=== PATIENT | female | born 1950 | race Caucasian/White ===

== ENCOUNTER 2019-11-28 10:48 | Outpatient (RCR) | payer MEDICARE, SELFPAY ==
[2019-09-17 11:30] LABS: INR 1.7; Prothrombin Time 19.4 Seconds (11.1-14.7)
[2019-09-30 12:12] LABS: INR 2.7; Prothrombin Time 27.9 Seconds (11.1-14.7)
[2019-10-31 08:11] LABS: INR 3.9; Prothrombin Time 37.6 Seconds (11.1-14.7)
[2019-11-14 09:46] LABS: INR 3.6
[2019-11-28 11:10] LABS: INR 2.3; Prothrombin Time 25.1 Seconds (11.1-14.7)
== END 2019-12-16 23:59 | disposition home or self-care (01) ==
LOC: ANHLAB 10:48
PROVIDERS: PCP Internal Medicine; Visit Provider Internal Medicine
DX: I82.211 Chronic embolism and thrombosis of superior vena cava (principal)
CPT/HCPCS: 36415; 85610

== ENCOUNTER 2020-03-19 09:18 | Outpatient (RCR) | payer MEDICARE, SELFPAY ==
[2019-12-29 13:06] LABS: INR 1.6; Prothrombin Time 18.4 Seconds (11.1-14.7)
[2020-01-23 11:11] LABS: INR 1.8; Prothrombin Time 20.2 Seconds (11.1-14.7)
[2020-02-25 10:30] LABS: INR 1.9; Prothrombin Time 21.3 Seconds (11.1-14.7)
[2020-03-19 09:50] LABS: INR 2.7; Prothrombin Time 27.9 Seconds (11.1-14.7)
== END 2020-03-28 23:59 | disposition home or self-care (01) ==
LOC: ANHLAB 09:18
PROVIDERS: PCP Internal Medicine; Visit Provider Internal Medicine
DX: I82.211 Chronic embolism and thrombosis of superior vena cava (principal)
CPT/HCPCS: 36415; 85610

== ENCOUNTER 2020-06-14 15:19 | Outpatient (CLI) | payer MEDICARE, SELFPAY ==
--- NOTE | ~2020-06-14 | XR_ITS ---
XR chest 2V DATE: 06/14/2020 15:39 INDICATION: Wheezing, shortness of breath TECHNIQUE: PA and lateral views COMPARISON: 03/30/2019 CT pulmonary scan FINDINGS: Status post right mastectomy and axillary node dissection. No pulmonary infiltrate or consolidation, pleural effusion or pulmonary vascular congestion or pneumo thorax. Normal heart size. No hilar or mediastinal enlargement. Diffuse osteopenia. Scoliosis of the thoracic and lumbar spine. IMPRESSION: Status post right mastectomy and axillary node dissection for presumed right breast cance r No active cardiopulmonary disease Diffuse osteopenia Reviewed, dictated and finalized at location B. IMPRESSION: Status post right mastectomy and axillary node dissection for presu med right breast cancer No active cardiopulmonary disease Diffuse osteopenia
== END 2020-06-14 15:20 | disposition home or self-care (01) ==
LOC: ANHIMG 15:26
PROVIDERS: PCP Internal Medicine; Visit Provider Internal Medicine
DX: J18.9 Pneumonia, unspecified organism (principal); M85.88 Other specified disorders of bone density and structure, other site
CPT/HCPCS: 71046

== ENCOUNTER 2020-06-24 09:02 | Outpatient (RCR) | payer MEDICARE, SELFPAY ==
[2020-04-15 13:35] LABS: INR 2.7; Prothrombin Time 28.2 Seconds (11.1-14.7)
[2020-05-19 11:26] LABS: INR 3.6; Prothrombin Time 35.5 Seconds (11.1-14.7)
[2020-06-24 09:42] LABS: INR 2.8; Prothrombin Time 29.1 Seconds (11.1-14.7)
== END 2020-07-14 23:59 | disposition home or self-care (01) ==
LOC: ANHLAB 09:02
PROVIDERS: PCP Internal Medicine; Visit Provider Internal Medicine
DX: I82.409 Acute embolism and thrombosis of unspecified deep veins of unspecified lower extremity (principal)
CPT/HCPCS: 36415; 85610

== ENCOUNTER 2020-06-28 09:19 | Outpatient (CLI) | payer MEDICARE, SELFPAY ==
--- NOTE | ~2020-06-28 | MM_ITS ---
EXAMINATION: MM screening mable LT w abraham HISTORY: Screening mammogram TECHNIQUE: Craniocaudal and mediolateral oblique 3-D tomosynthesis images were obtained and synthetic 2-D images were generated. CAD analysis was submitted and interpreted. COMPARISON: 06/26/2019, 06/17/2018 left digital screening mammogram examinations 06/30/2017 diagnostic left digital mammogram 06/03/2017 bilateral digital screening mammogram and complete left breast ultrasound BREAST PARENCHYMAL COMPOSITION: The breasts are heterogeneously dense, which may obscure small masses . FINDINGS: There is no evidence of suspicious mass, calcification, or architectural distortion to sugg est malignancy in either breast. There has been no suspicious interval change. IMPRESSION: 1. No mammographic evidence of malignancy. 2. Recommend routine screening mammography in one year. BI-RADS Category 1: Negative Reviewed, dictated and finalized at location A.
== END 2020-06-28 09:20 | disposition home or self-care (01) ==
LOC: ANHIMG 09:20
PROVIDERS: PCP Internal Medicine; Visit Provider Internal Medicine Hematology & Oncology
DX: Z12.31 Encounter for screening mammogram for malignant neoplasm of breast (principal)
CPT/HCPCS: 77063; 77067

== ENCOUNTER 2020-09-23 07:35 | Outpatient (NON) | payer MEDICARE, SELFPAY ==
[2020-09-24 13:19] LABS: SARS-CoV-2 RNA PCR Positive
== END 2020-09-23 07:36 ==
LOC: ANHCOVIDDT 07:37
PROVIDERS: PCP Internal Medicine; Visit Provider Internal Medicine
DX: U07.1 COVID-19 (principal)
CPT/HCPCS: 87635; C9803; U0003

== ENCOUNTER 2020-10-26 17:17 | Outpatient (CLI) | payer MEDICARE, SELFPAY ==
--- NOTE | ~2020-10-26 | CT_ITS ---
EXAMINATION: CTA chest PE protocol EXAM DATE: 10/26/2020 18:51 INDICATION: Cough, acute bronchitis. History DVT and right-sided breast cancer. Congestion. Symptoms 3 weeks. TECHNIQUE: Spiral CTA of the chest (pulmonary arteries) was performed with 100 cc Omnipaque 350 intr avenous contrast injection. Images were acquired during the pulmonary arterial phase. Coronal maxi mum intensity projection 3D-reconstructions were created by the technologist on dedicated workstation . Axial, coronal and sagittal reformatted images were reviewed. The dose-length product (DLP) for t his examination was 460.11 mGy-cm. The exposure was tailored according to patient size (auto mA exp osure control), and iterative reconstruction (ASIR) was used as additional dose reduction technique. 03/30/2019 FINDINGS: Pulmonary arteries are well opacified and without intraluminal filling defects. No thora cic aortic dissection. Again scattered basilar tree-in-bud pattern, could be the same process seen i june with mild progression, with most likely be a chronic infectious or inflammatory process. The re is bibasilar linear atelectasis. Also, new peripheral left upper lobe small groundglass attenuatio n, probably nonspecific pneumonitis. Potentially could be early COVID pneumonia. There are no pleural or pericardial effusions. Tracheobronchial tree is patent. There is no media stinal, hilar or axillary lymphadenopathy. There is no pneumothorax. Heart normal in size. Ther e is mild coronary arterial calcification, arterial sclerosis. Upper abdomen is unremarkable. Stat us post right-sided mastectomy. Subacute right 4th rib fracture anteriorly. There are no osteoblastic or osteolytic lesions identified. IMPRESSION: 1. No pulmonary emboli. 2. New left upper lobe small groundglass opacity, possible COVID-19. 3. Progression in basilar tree-in-bud opacities appearance most consistent with chronic infectious o r inflammatory process. Reviewed, dictated and finalized at location A. [place] [employer] IMPRESSION: 1. No pulmonary emboli. 2. New left upper lobe small groundglass opacity, possible COVID-19. 3. Progression in basilar tree-in-bud opacities appearance most consistent wit h chronic infectious or inflammatory process.
[2020-10-26 20:01] LABS: Estimated Glomerular Filt Rate > 60
== END 2020-10-26 17:18 | disposition home or self-care (01) ==
PROVIDERS: PCP Internal Medicine; Visit Provider Internal Medicine
DX: J44.0 Chronic obstructive pulmonary disease with (acute) lower respiratory infection (principal); J20.9 Acute bronchitis, unspecified; Z85.3 Personal history of malignant neoplasm of breast; R91.8 Other nonspecific abnormal finding of lung field
CPT/HCPCS: 71275; Q9967

== ENCOUNTER 2020-10-28 08:47 | Outpatient (RCR) | payer MEDICARE, SELFPAY ==
[2020-08-10 10:28] LABS: INR 3.1; Prothrombin Time 31.6 Seconds (11.1-14.7)
[2020-09-09 11:04] LABS: Prothrombin Time 30.6 Seconds (11.1-14.7)
[2020-10-28 09:18] LABS: INR 2.2; Prothrombin Time 25.2 Seconds (11.1-14.7)
== END 2020-11-08 23:59 | disposition home or self-care (01) ==
LOC: ANHLAB 08:47
PROVIDERS: PCP Internal Medicine; Visit Provider Internal Medicine
DX: I82.409 Acute embolism and thrombosis of unspecified deep veins of unspecified lower extremity (principal)
CPT/HCPCS: 36415; 85610

== ENCOUNTER 2021-01-14 08:03 | Outpatient (RCR) | payer MEDICARE, SELFPAY ==
[2020-11-24 09:19] LABS: INR 2.7; Prothrombin Time 29.1 Seconds (11.1-14.7)
[2021-01-14 09:20] LABS: INR 2.1; Prothrombin Time 24.3 Seconds (11.1-14.7)
== END 2021-02-22 23:59 | disposition home or self-care (01) ==
LOC: ANHLAB 08:03
PROVIDERS: PCP Internal Medicine; Visit Provider Internal Medicine
DX: I82.211 Chronic embolism and thrombosis of superior vena cava (principal)
CPT/HCPCS: 36415; 85610

== ENCOUNTER 2021-02-23 12:04 | Outpatient (RCR) | payer MEDICARE, SELFPAY ==
[2021-02-23 12:57] LABS: INR 2.2; Prothrombin Time 25.2 Seconds (11.1-14.7)
== END 2021-03-29 13:58 | disposition home or self-care (01) ==
LOC: ANHLAB 12:04
PROVIDERS: PCP Internal Medicine; Visit Provider Internal Medicine
DX: I82.409 Acute embolism and thrombosis of unspecified deep veins of unspecified lower extremity (principal)
CPT/HCPCS: 36415; 85610

== ENCOUNTER 2021-03-24 08:44 | Outpatient (CLI) | payer MEDICARE, SELFPAY ==
[2021-03-24 09:26] LABS: Cholesterol 182 mg/dL (0-200); HDL Direct 52 mg/dL; Triglycerides 105 mg/dL (<150)
[2021-03-24 09:33] LABS: INR 2.5; Prothrombin Time 27.7 Seconds (11.1-14.7)
[2021-03-24 09:37] LABS: LDL Cholesterol Direct 101 mg/dL
[2021-03-24 09:59] LABS: Thyroid Stimulating Hormone 0.974 uIU/mL (0.465-4.680)
[2021-03-24 10:36] LABS: Free T4 Free Thyroxine 1.41 ng/mL (0.78-2.19)
[2021-03-24 10:45] LABS: Folic Acid > 20.0 ng/mL (2.76->20); Vitamin B12 > 1000.0 pg/mL (239-931)
== END 2021-03-24 08:45 | disposition home or self-care (01) ==
PROVIDERS: PCP Physician Assistant; Visit Provider Physician Assistant
DX: E03.9 Hypothyroidism, unspecified (principal); E88.81 Metabolic syndrome and other insulin resistance; I82.409 Acute embolism and thrombosis of unspecified deep veins of unspecified lower extremity; R53.83 Other fatigue
CPT/HCPCS: 36415; 80061; 82607; 82746; 84439; 84443; 85610

== ENCOUNTER 2021-06-26 11:25 | Outpatient (RCR) | payer MEDICARE, SELFPAY ==
[2021-05-05 09:23] LABS: INR 1.8; Prothrombin Time 21.6 Seconds (11.1-14.7)
[2021-05-16 12:18] LABS: INR 2.1
[2021-05-30 12:19] LABS: INR 2.3; Prothrombin Time 24.3 Seconds (11.1-14.7)
[2021-06-26 12:27] LABS: INR 2.2; Prothrombin Time 23.9 Seconds (11.1-14.7)
== END 2021-08-03 23:59 | disposition home or self-care (01) ==
LOC: ANHLAB 11:25
PROVIDERS: PCP Physician Assistant; Visit Provider Physician Assistant
DX: I82.409 Acute embolism and thrombosis of unspecified deep veins of unspecified lower extremity (principal)
CPT/HCPCS: 36415; 85610

== ENCOUNTER 2021-06-29 09:43 | Outpatient (CLI) | payer MEDICARE, SELFPAY ==
--- NOTE | ~2021-06-29 | MM_ITS ---
EXAMINATION: MM screening mable LT w abraham HISTORY: Screening left mammogram, history of right mastectomy TECHNIQUE: Craniocaudal and mediolateral oblique 3-D tomosynthesis images were obtained and synthetic 2-D images were generated. CAD analysis was submitted and interpreted. COMPARISON: 06/28/2020, 06/26/2019, 06/17/2018 BREAST PARENCHYMAL COMPOSITION: The breasts are heterogeneously dense, which may obscure small masses . FINDINGS: A stable low-density mass is present in the anterior third of the lower-outer breast, consi dered benign given the lack of interval change. There is no evidence of suspicious mass, calcificatio n, or architectural distortion to suggest malignancy in either breast. There has been no suspicious i nterval change. IMPRESSION: 1. No mammographic evidence of malignancy. 2. Recommend routine screening mammography in one year. BI-RADS Category 2: Benign finding(s). Reviewed, dictated and finalized at location A.
== END 2021-06-29 09:44 | disposition home or self-care (01) ==
PROVIDERS: PCP Physician Assistant; Visit Provider Internal Medicine Hematology & Oncology
DX: Z12.31 Encounter for screening mammogram for malignant neoplasm of breast (principal)
CPT/HCPCS: 77063; 77067

== ENCOUNTER 2021-07-13 12:26 | Outpatient (CLI) | payer MEDICARE, SELFPAY ==
--- NOTE | ~2021-07-13 | DEXA_ITS ---
Bone Density Report Name: Damien Pulido Age: 71 Sex: Female Ethnicity: White Date of : 1950 Indication: osteopenia; height loss; cancer; asthma or emphysema; hysterectomy; postmenopausal Referring Provider: Lj Fam Study: Bone densitometry was performed. Exam Date: July 13, 2021 Accession number: [id number] Bone Density: Region BMD T-score Z-score Classification AP Spine (L1, L2) 0.812 -1.5 0.4 Osteopenia Femoral Neck (Left) 0.798 -0.5 1.3 Normal Total Hip (Left) 0.907 -0.3 1.2 Normal Total Hip Bilateral Avg 0.881 -0.5 0.9 Normal Femoral Neck (Right) 0.738 -1.0 0.8 Normal Total Hip (Right) 0.853 -0.7 0.7 Normal World Health Organization criteria for BMD impression classify patients as: Normal (T-score at or above -1.0), Osteopenia (T-score between -1.0 and -2.5), or Osteoporosis (T-score at or below -2.5). 10-year Fracture Risk(1): Major Osteoporotic Fracture 8.4% Hip Fracture 0.8% Reported Risk Factors: [place] (), Neck BMD=0.738, BMI=31.3 (1) FRAX(R) Version 3.08. Fracture probability calculated for an untreated patient. Fracture probability may be lower if the patient has received treatment. Previous Exams: Region Exam Age BMD T-score BMD Change BMD Change Date g/cm2 vs Baseline vs Previous AP Spine(L1, L2) 07/13/2021 71 0.812 -1.5 0.029(3.7%)* 0.017(2.2%) 01/19/2019 68 0.794 -1.7 0.011(1.5%) 0.011(1.5%) 12/20/2016 66 0.783 -1.8 Total Hip(Left) 07/13/2021 71 0.907 -0.3 0.036(4.2%)* 0.000(0.0%) 01/19/2019 68 0.907 -0.3 0.036(4.2%)* 0.036(4.2%)* 12/20/2016 66 0.870 -0.6 Total Hip(Right) 07/13/2021 71 0.853 -0.7 0.101(13.4%)* -0.005(-0.6%) 01/19/2019 68 0.858 -0.7 0.106(14.1%)* 0.106(14.1%)* 12/20/2016 66 0.752 -1.6 *Denotes significance at 95% confidence level, LSC for AP Spine = 0.022 g/cm2, LSC for Total Hip = 0.027 g/cm2 Clinical Information Provided by Patient: Has used the following medications: Vitamin D, Calcium Has the following medical conditions: Asthma or Emphysema, Cancer, Hysterectomy Patient maximum height was 69 Menopause Age: 53 Drinks caffeinated beverages Onset of menses at age 15 Number of children 2 Impression: The patient has low bone mass, based on the Total Spine T-score. The patient has an estimated ten-year risk of hip fracture of 0.8% and an estimated ten-year risk of major fracture of 8.4%, based on t
== END 2021-07-13 12:27 | disposition home or self-care (01) ==
LOC: ANHIMG 12:36
PROVIDERS: PCP Physician Assistant; Visit Provider Internal Medicine Hematology & Oncology
DX: M81.8 Other osteoporosis without current pathological fracture (principal); M85.88 Other specified disorders of bone density and structure, other site; T38.6X5A Adverse effect of antigonadotrophins, antiestrogens, antiandrogens, not elsewhere classified, initial encounter
CPT/HCPCS: 77080

== ENCOUNTER 2021-09-25 15:55 | Outpatient (CLI) | payer MEDICARE, SELFPAY ==
--- NOTE | ~2021-09-25 | MR_ITS ---
EXAMINATION: MR knee RT wo con DATE: 09/25/2021 16:52 INDICATION: Medial meniscal tear presenting with right knee pain TECHNIQUE: Magnetic resonance imaging (MRI) of the right knee was performed without intravenous contr ast. Sequences included coronal PD-weighted FSE, coronal PD-weighted FS FSE, sagittal T2-weighted FS E, sagittal PD-weighted FS FSE and axial PD weighted fat saturated FSE. COMPARISON: Knee radiographs dated 07/10/2019 FINDINGS: Evaluation mild to moderately limited by some degree of motion artifact or blurring on all sequences including a repeated axial sequence. Medial compartment: Radial tear/avulsion at the posterior root of the medial meniscus. There is an additional tear of ind eterminate morphology along the inner third of the posterior horn. Partial-thickness chondral ulcerat ion involving up to 50% the cartilage thickness but without degenerative subchondral changes at the a nterior to central weightbearing medial femoral condyle. Cartilage at the medial tibial plateau appea rs relatively preserved. Lateral compartment: There is mild lateral extrusion of the lateral meniscal body. There is amorphous increased signal at the anterior horn of the lateral meniscus suspicious for tear of indeterminate morphology. There appe ars to be a meniscocapsular separation along the meniscal side of the inferior meniscotibial ligament however prospective MRI has a known very low positive predictive value. There is a flat central subc hondral osteophyte at the site of deep chondral ulceration at the central weightbearing lateral femor al condyle. The osteophyte extends 14 mm AP and measures up to 5 mm in medial to lateral width with h eight of a couple millimeter comparable to the thickness of the surrounding cartilage. Mild partial-t hickness cartilage loss with some chondral surface regularity along the posterior weightbearing later al femoral condyle. Cartilage at the lateral tibial plateau appears relatively preserved. Patellofemoral compartment: Extensive partial thickness cartilage loss involving greater than 50% the cartilage thickness along m uch of the lateral patellar facet and to a lesser degree at the apical ridge and medial facet. Additi onal extensive deep cartilage loss along the inferior aspect of the medial trochlea cochlea groove an d majority of the lateral trochlea where there are scattered mild subarticular edema and some irregul arity to the articular cortex. Ligaments and tendons: Anterior and posterior cruciate ligaments are normal. The medial collateral ligament and fibular sherrie ateral ligament complex are normal. The popliteus tendon is normal. Mild tendinopathy of the patellar tendon and distal quadriceps tendon. The visualized medial and lateral hamstring tendons as well as the iliotibial band are normal. Fluid: Small knee joint effusion with moderate synovitis at the suprapatellar pouch. No loose osteochondral bodies identified. Osseous/other: Normal marrow signal aside from the previous noted subarticular edema at the medial trochlea. No frac ture or pathologic marrow replacing process. Subcutaneous varicosities about the knee. IMPRESSION: 1. Likely complex tear at the posterior horn of the medial meniscus including a full-thickness radial tear/avulsion at the posterior root. 2. Irregular tearing of indeterminate morphology, likely complex at the anterior horn of the lateral meniscus with suggestion of meniscocapsular separation along the meniscotibial ligament at the it assistant ior horn although this latter finding is a very low positive predictive value by MRI. 3. Tricompartmental osteoarthritis, moderate severity with extensive high-grade chondromalacia in the patellofemoral compartment and mild the medial and lateral compartments with high-grade chondromalac ia along the lateral femoral condyle and moderate grade chondromalacia along the
== END 2021-09-25 15:56 | disposition home or self-care (01) ==
PROVIDERS: PCP Physician Assistant; Visit Provider Physician Assistant
DX: S83.241A Other tear of medial meniscus, current injury, right knee, initial encounter (principal); X58.XXXA Exposure to other specified factors, initial encounter; M17.11 Unilateral primary osteoarthritis, right knee
CPT/HCPCS: 73721

== ENCOUNTER 2021-10-20 11:10 | Outpatient (RCR) | payer MEDICARE, SELFPAY ==
[2021-08-12 08:54] LABS: INR 2.2; Prothrombin Time 24.2 Seconds (11.1-14.7)
[2021-09-08 09:37] LABS: Prothrombin Time 30.5 Seconds (11.1-14.7)
[2021-09-22 16:24] LABS: INR 3.3; Prothrombin Time 32.2 Seconds (11.1-14.7)
[2021-10-07 08:44] LABS: INR 1.8; Prothrombin Time 20.5 Seconds (11.1-14.7)
== END 2021-11-10 23:59 | disposition home or self-care (01) ==
LOC: ANHLAB 11:10
PROVIDERS: PCP Physician Assistant; Visit Provider Physician Assistant
DX: I82.409 Acute embolism and thrombosis of unspecified deep veins of unspecified lower extremity (principal)
CPT/HCPCS: 36415; 85610

== ENCOUNTER 2021-11-06 13:43 | Outpatient (CLI) | payer MEDICARE, SELFPAY ==
[2021-11-06 14:13] LABS: INR 2.9; Prothrombin Time 29.2 Seconds (11.1-14.7)
== END 2021-11-06 13:44 | disposition home or self-care (01) ==
PROVIDERS: PCP Physician Assistant; Visit Provider Physician Assistant
DX: I82.409 Acute embolism and thrombosis of unspecified deep veins of unspecified lower extremity (principal)
CPT/HCPCS: 36415; 85610

== ENCOUNTER 2021-12-22 09:56 | Outpatient (CLI) | payer MEDICARE, SELFPAY ==
[2021-12-22 10:28] LABS: Anion Gap 1 mmol/L (8-16); Blood Urea Nitrogen 24 mg/dL (7-17); Calcium 9.4 mg/dL (8.4-10.2); Carbon Dioxide 32 mmol/L (22-30); Chloride 103 mmol/L (98-107); Estimated Glomerular Filt Rate > 60; Glucose 107 mg/dL (65-110); Potassium 3.5 mmol/L (3.4-5.0); Sodium 136 mmol/L (137-145)
== END 2021-12-22 09:57 | disposition home or self-care (01) ==
LOC: ANHSURGERY 09:59
PROVIDERS: Anesthesiology; PCP Physician Assistant; Visit Provider Orthopaedic Surgery
DX: Z79.899 Other long term (current) drug therapy (principal); Z01.812 Encounter for preprocedural laboratory examination
CPT/HCPCS: 36415; 80048

== ENCOUNTER 2021-12-29 01:09 | Day surgery (SDC) | payer MEDICARE, SELFPAY ==
[2021-12-21 11:02] VITALS: BMI 28.5
--- NOTE | 2021-12-21 11:15 | PC.NURSE ---
Report to the Outpatient Waiting Room, entrance under the green pavilion located off [facility], at time _0800_ on date _12/29/21_. OR Time: _1000_. - You will be asked a series of questions to screen for COVID 19 for your protection. - A mask is required within the hospital. - No visitors are allowed at this time. Preoperative COVID Testing Requirements: NONE Patients may have clear liquids (water, carbonated beverages, clear teas, apple juice) until 3 hours prior to surgery (0700 AM) with a maximum of 20 ounces. - No food from midnight until time of surgery Take the following medications with a SIP of water the morning of surgery: _GABAPENTIN, LEVOTHYROXINE & INHALER_ Medications to discontinue per DR. KHAN - _WARFARIN - CALL OFFICE FOR INSTRUCTIONS _ Medications to discontinue per ANESTHESIA - _ALL VITAMINS & SUPPLEMENTS - 3 DAYS PRIOR TO SURGERY, LAST DOSE TO BE TAKEN ON 12/25/21 Please no make-up, nail beninese, hairspray, perfume, deodorant, or body powder the day of surgery. No jewelry (including any body piercings) or valuables the day of surgery, leave them at home. Please take a shower or bath the night before, or the morning of, surgery with an antibacterial soap. Wear comfortable, loose fitting clothing. - Jewelry must be removed prior to entering the operating room. Rings and piercings that are not removed may be cut off. - The hospital will not accept responsibility for valuables. - Please leave all valuables, including medications, at home the day of surgery. If you are going home after surgery, a licensed equipment driver must drive you home. - NO public transportation without another adult. - We recommend that an adult stay with you for 24 hours following discharge. - We also recommend that you do not drive, make important decision, drink alcoholic beverages, or take any drugs that were not prescribed by your health care provider for at least 24 hours after your discharge time. Follow any additional instructions given to you from your surgeon. Telephone instructions given to ___PT and asked if any additional questions and then verbalized understanding. Patient advised to call surgeon office or pre surgery nurse liaEDDIE boone [phone] if any additional questions.
--- NOTE | 2021-12-28 14:44 | PM.IMHP ---
H&P: HPI History of Present Illness Date/Time: 12/28/21 14:44 MACARIO IS HERE FOR EVALUATION OF HER RIGHT KNEE. SHE HAS MODERATE TO SEVERE PAIN. HER PAIN IS CONSTANT. SHE HAS NO RECENT INJURY. PAIN MEDS ARE NOT HELPING HER. SHE HAS INSTABILITY WELL. SHE HAS BEEN DIAGNOSED WITH A RIGHT MEDIAL MENISCUS TEAR AND IS HERE FOR SURGICAL TREATMENT WITH ARTHROSCOPY Chief Complaint: RIGHT KNEE PAIN Review of Systems Review of Systems: All systems reviewed & are unremarkable except as noted in HPI and below Eyes: Eyes: Reports no additional eye complaints ENT: Reports system reviewed and no additional complaints, except as documented Cardiovascular: Cardiovascular: Reports no additional cardiovascular complaints Respiratory: Respiratory: Reports no additional respiratory complaints Musculoskeletal: Musculoskeletal: Reports no additional musculoskeletal complaints [facility] Past Medical History Medical History Allergies DVT (deep venous thrombosis) Exocrine pancreatic insufficiency Family History Family History Father Family history of diabetes mellitus in first degree relative Family history of congestive heart failure Mother Family history of malignant neoplasm of breast in first degree relative Other Family history of malignant neoplasm Social History Social History Smoking status: Never smoker Second hand tobacco smoke exposure: No Alcohol intake: former Alcohol use details: STATES SOCIAL DRINKER IN THE PAST NONE SINCE 2013 Substance use: never Substance use type: does not use Spiritual care concerns: No Meds Home Medications and Allergies Home Medications Medication Instructions Recorded Confirmed Type biotin 10,000 mcg capsule 10,000 mcg PO .qd #1 cap 09/21/19 12/21/21 Rx calcium carbonate 600 mg calcium 600 mg PO DAILY #1 tablet 09/21/19 12/21/21 Rx (1,500 mg) tablet cholecalciferol (vitamin D3) 125 5,000 unit PO DAILY #1 cap 09/21/19 12/21/21 Rx mcg (5,000 unit) capsule letrozole 2.5 mg tablet 2.5 mg PO DAILY #1 tablet 09/21/19 12/21/21 Rx mecobalamin (vitamin B12) 1,000 1,000 mcg SUBLINGUAL DAILY #1 09/21/19 12/21/21 Rx mcg disintegrating tablet tablet,sublingual multivitamin 1 tablet PO DAILY #1 tablet 09/21/19 12/21/21 Rx ascorbic acid (vitamin C) 1,000 mg 5 gm PO DAILY tablet 06/14/20 12/21/21 History tablet gabapentin 800 mg tablet 800 mg PO BID tablet 06/14/20 12/21/21 History nebulizer accessories #1 ea 10/31/20 09/29/21 Rx arformoterol 15 mcg/2 mL solution 2 ml INHALATION Q12H 90 Days #360 12/01/20 12/21/21 Rx for nebulization ml albuterol sulfate 90 mcg/actuation 2 puff INHALATION Q4-6H PRN #8.5 g 04/14/21 12/21/21 Rx aerosol inhaler furosemide 40 mg tablet 40 mg PO QAM #90 tablet 06/12/21 12/21/21 Rx fluticasone propionate 230 See Rx Instructions .ROUTE 06/17/21 12/21/21 Rx mcg-salmeterol 21 mcg/actuation .COMPLEX #12 inhaler HFA inhaler warfarin 2 mg tablet 4 mg PO DAILY #180 tablet 09/11/21 12/21/21 Rx levothyroxine 100 mcg tablet See Rx Instructions .ROUTE 10/02/21 12/21/21 Rx .COMPLEX #90 tablet warfarin 1 mg tablet See Rx Instructions .ROUTE 10/29/21 12/21/21 Rx .COMPLEX #45 tablet montelukast 10 mg tablet See Rx Instructions .ROUTE 11/10/21 12/21/21 Rx .COMPLEX #90 tablet ropinirole 0.25 mg tablet See Rx Instructions .ROUTE 11/16/21 12/21/21 Rx .COMPLEX #90 tablet Allergies Allergy/AdvReac Type Severity Reaction Status Date / Time No Known Allergies Allergy Verified 12/21/21 10:55 Exam Extrem: Right lower extremity: normal to inspection, full ROM, normal capillary refill and knee Details: normal to inspection, tenderness Location: of the medial joint line and of the lateral joint line, swelling, abnormal ROM Details: pain with active ROM during and pain
--- NOTE | 2021-12-28 14:56 | WPDANESEPPF ---
Anes - Initial Pre Proc Eval Procedure: Operation Date: 12/29/21 10:00 Proposed Procedures p Right Knee Arthroscopy, Proceed As Indicated - Bryson Cintron MD Date/Time: 12/28/21 14:56 Surgeon: Bryson Cintron MD Pre Op Diagnosis: right knee medial meniscus tear Patient Data Age: 71 Gender: F Height: 1.75 m Weight: 87.72 kg Allergies Allergy/AdvReac Type Severity Reaction Status Date / Time No Known Allergies Allergy Verified 12/21/21 10:55 Home Medications Medication Instructions Recorded Confirmed Type biotin 10,000 mcg capsule 10,000 mcg PO .qd #1 cap 09/21/19 12/21/21 Rx calcium carbonate 600 mg calcium 600 mg PO DAILY #1 tablet 09/21/19 12/21/21 Rx (1,500 mg) tablet cholecalciferol (vitamin D3) 125 5,000 unit PO DAILY #1 cap 09/21/19 12/21/21 Rx mcg (5,000 unit) capsule letrozole 2.5 mg tablet 2.5 mg PO DAILY #1 tablet 09/21/19 12/21/21 Rx mecobalamin (vitamin B12) 1,000 1,000 mcg SUBLINGUAL DAILY #1 09/21/19 12/21/21 Rx mcg disintegrating tablet tablet,sublingual multivitamin 1 tablet PO DAILY #1 tablet 09/21/19 12/21/21 Rx ascorbic acid (vitamin C) 1,000 mg 5 gm PO DAILY tablet 06/14/20 12/21/21 History tablet gabapentin 800 mg tablet 800 mg PO BID tablet 06/14/20 12/21/21 History nebulizer accessories #1 ea 10/31/20 09/29/21 Rx arformoterol 15 mcg/2 mL solution 2 ml INHALATION Q12H 90 Days #360 12/01/20 12/21/21 Rx for nebulization ml albuterol sulfate 90 mcg/actuation 2 puff INHALATION Q4-6H PRN #8.5 g 04/14/21 12/21/21 Rx aerosol inhaler furosemide 40 mg tablet 40 mg PO QAM #90 tablet 06/12/21 12/21/21 Rx fluticasone propionate 230 See Rx Instructions .ROUTE 06/17/21 12/21/21 Rx mcg-salmeterol 21 mcg/actuation .COMPLEX #12 inhaler HFA inhaler warfarin 2 mg tablet 4 mg PO DAILY #180 tablet 09/11/21 12/21/21 Rx levothyroxine 100 mcg tablet See Rx Instructions .ROUTE 10/02/21 12/21/21 Rx .COMPLEX #90 tablet warfarin 1 mg tablet See Rx Instructions .ROUTE 10/29/21 12/21/21 Rx .COMPLEX #45 tablet montelukast 10 mg tablet See Rx Instructions .ROUTE 11/10/21 12/21/21 Rx .COMPLEX #90 tablet ropinirole 0.25 mg tablet See Rx Instructions .ROUTE 11/16/21 12/21/21 Rx .COMPLEX #90 tablet Patient hx anesthesia problems: none Family hx anesthesia problems: none Results Review: All pre-operative results and documents have been reviewed as part of the pre-operative evaluation. [facility] Past Medical History Medical History (Updated 12/28/21 @ 14:57 by Jaime Bethea MD) Allergies COPD (chronic obstructive pulmonary disease) DVT (deep venous thrombosis) Exocrine pancreatic insufficiency History of right breast cancer Hypothyroidism, unspecified Osteoporosis due to aromatase inhibitor Overweight (BMI 25.0-29.9) Family History Family History Father Family history of diabetes mellitus in first degree relative Family history of congestive heart failure Mother Family history of malignant neoplasm of breast in first degree relative Other Family history of malignant neoplasm Social History Social History Smoking status: Never smoker Second hand tobacco smoke exposure: No Alcohol intake: former Alcohol use details: STATES SOCIAL DRINKER IN THE PAST NONE SINCE 2013 Substance use: never Substance use type: does not use Living arrangements: with family Spiritual care concerns: No Anes - Eval Final PreProcedure Day of Procedure 12/28/21 14:56 Patient weight: overweight Heart: regular rate and rhythm Lungs: clear to auscultation and normal air movement Airway: Mallampati scale class II Neurological: alert and oriented Last oral intake: >/= 8 hours ASA classification: III Emergent: no Anesthetic plan: proceed Anesthesia type and monitoring: general LMA Results Review: All pre-operative results and documents have been re
[2021-12-29] VITALS (11 sets, daily range): BP systolic 118–142; BP diastolic 65–85; PULSE 60–77; RESP 10–18; TEMP 36–36.4; O2SAT 95–100
--- NOTE | 2021-12-29 07:24 | WPDHPUPDATE1 ---
History and Physical Update Update Date/Time: 12/29/21 07:24 History and Physical has been reviewed, including an updated exam of the patient. There are NO changes in the patient's condition. Risks, benefits, and alternatives have been discussed and questions answered. Patient agrees to proceed with procedure.
[2021-12-29] MEDS: KETOROLAC 15 MG/ML VIAL (*BKC) IV PUSH (09:08)
[2021-12-29] MEDS: LACTATED RINGERS 1,000 ML 30 ML IV CONT (09:08)
[2021-12-29] MEDS: ACETAMINOPHEN 500 MG TABLET 1000 MG PO (09:08)
[2021-12-29] MEDS: CELECOXIB 200 MG CAPSULE PO (09:08)
[2021-12-29 09:19] LABS: INR 1.1; Prothrombin Time 13.8 Seconds (11.1-14.7)
[2021-12-29 09:20] LABS: Partial Thromboplastin Time 24.3 SECONDS (22.3-36.8)
[2021-12-29] MEDS: ceFAZolin 2 GM/D5W 50 ML 2 GM/50 ML BAG IVPB (09:32)
--- NOTE | 2021-12-29 10:57 | W.PM.PROC2 ---
Procedure Note - Detailed Date of Procedure 12/29/21 Pre-op Diagnosis right knee medial meniscus tear Post-op Diagnosis other (MEDIAL MENISCUS TEAR, LATERAL MENISCUS TEAR, MULTIPLE LOOSE BODIES RIGHT KNEE) Procedure Performed RIGHT KNEE SCOPE Surgeon Bryson Cintron MD Anesthesia general Description of Procedure PATIENT WAS TAKEN TO THE OR. RIGHT LEG WAS PREPPED AND DRAPED STERILE. TROCARS WERE PLACED IN THE USUAL FASHION. CAMERA WAS INTRODUCED. THERE WAS CHONDROMALACIA TO THE PATELLA FEMORAL JOINT. THERE WAS A LOT OF SYNOVITIS IN ALL COMPARTMENTS. THE MEDIAL COMPARTMENT SHOWED CHONDROMALACIA TO THE MEDIAL FEMORAL CONDYLE. A SHAVER WAS USED TO PREFORM A CHONDROPLASTY. THERE WAS A COMPLEX MEDIAL MENISCUS TEAR. THE TEAR WAS RESECTED WITH A BITER AND A SHAVER DOWN TO A SMOOTH BASE. ABOUT 10% OF THE MENISCUS WAS REMOVED. THE ACL WAS INTACT. THE LATERAL MENISCUS WAS TORN AT THE ANTERIOR HORN. THE TEAR WAS RESECTED. THERE MULTIPLE LOOSE BODIES THAT WERE REMOVED FROM THE LATERAL COMPARTMENT. THE LAT COMPARTMENT HAD GRADE 2 CHONDROMALACIA AT THE LATERAL FEMORAL CONDYLE. CHONDROPLASTY WAS PREFORMED. A SYNOVECTOMY WAS PREFORMED WELL. THE PATELLO FEMORAL JOINT UNDERWENT CHONDROPLASTY. THERE WAS GRADE 3 CHONDROMALACIA IN MOST OF THE TROCHLEA AND PART OF THE PATELLA. THERE WAS A LARGE OSTEOPHYTE AT THE DISTAL POLE OF THE PATELLA THAT WAS IMPINGING ON THE TROCHLEA AND IT WAS RESECTED WITH A KIMBERLY. SYNOVECTOMY WAS PREFORMED IN THE SUPERIOR MEDIAL COMPARTMENT. THE WOUNDS WERE APPROXIMATED WITH 4.0 NYLON. STERILE DRESSING WAS APPLIED. PATIENT WAS EXTUBATED. Estimated Blood Loss 5 Complications No immediate complications Condition stable Disposition PACU
--- NOTE | 2021-12-29 11:29 | SUR.PHASEI ---
PT SLEEPING. AWAKENS EASILY.
--- NOTE | 2021-12-29 11:40 | SUR.PHASEI ---
PT SLEEPING. AWAKENS EASILY. ASKED PT HOW HER KNEE FEELS. PT STATES IT HURTS RATES 8/10 THEN GOES BACK TO SLEEP.
[2021-12-29] MEDS: fentaNYL CITRATE INJ (*CRX) 100 MCG/2 ML VIAL 25 MCG IV PUSH ×2 (11:43→11:50)
--- NOTE | 2021-12-29 11:59 | SUR.PHASEI ---
PT MORE AWAKE. STATES SHE IS READY TO MOVE TO [place].
--- NOTE | 2021-12-29 12:01 | SUR.PHASEI ---
DR KHAN HERE SPEAKING TO PT
[2021-12-29] MEDS: oxyCODONE HCL (*CRX) 5 MG TAB IR PO (12:44)
== END 2021-12-29 13:40 | disposition home or self-care (01) ==
PROVIDERS: Anesthesiology; PCP Physician Assistant; Visit Provider Orthopaedic Surgery
PROC: (CPT 29870; principal; 2021-12-29 10:00)
DX: M23.331 Other meniscus derangements, other medial meniscus, right knee (principal); M23.341 Other meniscus derangements, anterior horn of lateral meniscus, right knee; M65.861 Other synovitis and tenosynovitis, right lower leg; M94.261 Chondromalacia, right knee; M23.41 Loose body in knee, right knee; M25.761 Osteophyte, right knee; J44.9 Chronic obstructive pulmonary disease, unspecified; K86.81 Exocrine pancreatic insufficiency; E03.9 Hypothyroidism, unspecified; M81.8 Other osteoporosis without current pathological fracture; T45.1X5S Adverse effect of antineoplastic and immunosuppressive drugs, sequela; Z85.3 Personal history of malignant neoplasm of breast; Z86.718 Personal history of other venous thrombosis and embolism; Z79.51 Long term (current) use of inhaled steroids; Z79.01 Long term (current) use of anticoagulants
CPT/HCPCS: 29880; 36415; 85610; 85730; A9270; J0690; J1100; J1885; J2250; J2405; J2704; J3010; J7120

== ENCOUNTER 2022-02-01 11:29 | Outpatient (RCR) | payer MEDICARE, SELFPAY ==
[2021-11-18 10:29] LABS: INR 2.4; Prothrombin Time 25.9 Seconds (11.1-14.7)
[2021-12-15 11:38] LABS: INR 2.2; Prothrombin Time 23.7 Seconds (11.1-14.7)
[2022-01-11 12:01] LABS: INR 1.9; Prothrombin Time 21.3 Seconds (11.1-14.7)
[2022-01-22 10:27] LABS: INR 1.8
[2022-02-01 12:05] LABS: INR 2.5; Prothrombin Time 26.5 Seconds (11.1-14.7)
== END 2022-02-16 23:59 | disposition home or self-care (01) ==
LOC: ANHLAB 11:29
PROVIDERS: PCP Physician Assistant; Visit Provider Physician Assistant
DX: I82.409 Acute embolism and thrombosis of unspecified deep veins of unspecified lower extremity (principal)
CPT/HCPCS: 36415; 85610

== ENCOUNTER → 2022-03-30 09:31 | Outpatient (CLI) | payer MEDICARE, SELFPAY ==
--- NOTE | ~2022-03-30 | MR_ITS ---
EXAMINATION: MR knee RT wo con DATE: 03/30/2022 10:29 INDICATION: Right knee pain post fall TECHNIQUE: Magnetic resonance imaging (MRI) of the right knee was performed without intravenous contr ast. Sequences included coronal PD-weighted FSE, coronal PD-weighted FS FSE, sagittal T2-weighted FS E, sagittal PD-weighted FS FSE and axial PD weighted fat saturated FSE. COMPARISON: None. FINDINGS: Medial compartment: Complex medial meniscal tear with radial tear at or near the posterior root and with longitudinal hor izontal tear plane extending to the inferior articular surface of the more medial posterior horn. Olga p chondral ulceration approaches full-thickness along the central weightbearing medial femoral condyl e and along a portion of the lateral aspect of the anterior weightbearing medial femoral condyle. Mil d partial-thickness cartilage loss with relatively smooth chondral surface along the medial aspect of the medial tibial plateau. Lateral compartment: Anterior horn of the lateral meniscus and could not visualized at its expected location. There is a t ract of scarring along both the medial and lateral sides of Hoffa's fat pad which suggests prior arth roscopy suggesting this could be related to a prior partial meniscectomy. Alternatively this could re flect a prior tear at or near the anterior root with displacement of the meniscal tissue the anterior horn. There is an abrupt cut off of tissue at the mid meniscal body which similarly could represent the site of a radial tear or the margin of a partial meniscectomy. Deep chondral ulceration filled by a prominent central osteophyte measuring 12 mm AP, 5 mm medial to lateral and 2.5 mm in thickness lo cated at the central weightbearing lateral femoral condyle. Patellofemoral compartment: Extensive full thickness chondral ulceration with slight remodeling of the articular cortex at the la teral patellar facet extending to the apical ridge as well as at the cephalad half of the lateral tro chlea extending to the trochlear groove. Less severe partial thickness cartilage loss at the medial p atellar facet. Ligaments and tendons: Posterior cruciate ligament is normal. The anterior cruciate ligament demonstrates a normal angle rel ative to Blumenstaat's line. There is intrasubstance signal surrounding intact appearing linear fiber s with a celery stalk appearance consistent with mucoid degeneration without discrete tear. The med ial collateral ligament and fibular collateral ligament complex are normal. The extensor mechanism is normal. The visualized medial and lateral hamstring tendons as well as the iliotibial band are rosa l. Fluid: Small knee joint effusion with moderate synovitis at the medial and lateral gutters of the suprapatel lar pouch. No loose osteochondral bodies identified. Osseous/other: Mild edema and cystlike change underlying the intercondylar eminence. Marrow signal is otherwise norm al with no fracture or pathologic marrow replacing process. IMPRESSION: 1. Medial and lateral meniscal tears as detailed above. There is absent anterior horn of the lateral meniscus which could represent either sequela of prior partial meniscectomy or displacement/degenerat ion of the torn meniscal tissue. Correlate with surgical history. 2. Tricompartmental osteoarthritis, severe with extensive high-grade chondromalacia in the lateral pa tellofemoral compartment and mild but with additional regions of high-grade chondral malacia in the m edial and lateral compartments. 3. Likely mucoid degeneration without discrete tear of the anterior cruciate ligament. Correlate with physical exam to assess for degree of functional integrity. 4. Small right knee joint effusion with moderate synovitis at the suprapatellar pouch. Reviewed, dictated and finalized at location [facility]
== END ==
PROVIDERS: PCP Internal Medicine; Visit Provider Orthopaedic Surgery
DX: S83.281A Other tear of lateral meniscus, current injury, right knee, initial encounter (principal); S83.241A Other tear of medial meniscus, current injury, right knee, initial encounter; X58.XXXA Exposure to other specified factors, initial encounter; M17.11 Unilateral primary osteoarthritis, right knee; M25.461 Effusion, right knee
CPT/HCPCS: 73721

== ENCOUNTER 2022-04-09 15:44 | Emergency (ER) | payer MEDICARE, SELFPAY ==
--- NOTE | ~2022-04-09 | XR_ITS ---
XR wrist RT min 3V 04/09/2022 16:02 Indication: Status post fall. Right wrist swelling Procedure: 3 views right wrist Comparison: No prior studies for comparison. Findings: There is a comminuted intra-articular distal radial fracture with dorsal displacement and a ngulation. There is a displaced ulnar styloid fracture. Osteopenia. There is polyarticular osteoarthr itis primarily involving the triscaphe and first carpometacarpal joints. Mild soft tissue swelling. Impression: 1: Comminuted intra-articular distal radial fracture with dorsal displacement and angulation. 2: Displaced ulnar styloid avulsion fracture. Reviewed, dictated and finalized at location A. Impression: 1: Comminuted intra-articular distal radial fracture with dorsal displacement a nd angulation. 2: Displaced ulnar styloid avulsion fracture.
[2022-04-09 15:48] VITALS: BP 136/92; PULSE 96; RESP 18; TEMP 36.3; O2SAT 99
--- NOTE | 2022-04-09 16:18 | ED.GENADULT ---
HPI - General Adult General Chief complaint: Extremity Injury, Upper <ARNOL Jones Last Filed: 04/09/22 18:47> Stated complaint: fall/ hand injury <ARNOL Jones Last Filed: 04/09/22 18:47> Time Seen by Provider: 04/09/22 16:06 <ARNOL Jones Last Filed: 04/09/22 18:47> History of Present Illness HPI narrative: Patient is a 72-year-old female here for evaluation status post fall earlier today. Patient states that she was walking when she tripped, landing on an outstretched hand about 4 hours prior to arrival. She did take 2 Motrin 4 hours ago without much relief of her pain. Denies numbness or tingling of her fingers. She does have a small abrasion over the area with no active bleeding. <ARNOL Jones Last Filed: 04/09/22 18:47> Related Data Home medications: Home Medications Medication Instructions Recorded Confirmed ascorbic acid (vitamin C) 1,000 mg 5 gm PO DAILY 06/14/20 03/19/22 tablet gabapentin 800 mg tablet 800 mg PO BID 06/14/20 03/19/22 <ARNOL Jones Last Filed: 04/09/22 18:47> Allergies/adverse reactions: Allergies Allergy/AdvReac Type Severity Reaction Status Date / Time No Known Allergies Allergy Verified 04/09/22 16:04 <ARNOL Jones Last Filed: 04/09/22 18:47> Review of Systems Review of Systems: Gen: Denies fevers or chills Eyes: Denies eye pain or visual change ENT: Denies congestion Respiratory: Denies shortness of breath or cough CV: Denies chest pain or palpitations GI: Denies abdominal pain nausea, emesis or diarrhea : denies burning, urgency, frequency or hematuria Musculoskeletal: Reports right arm pain. Neuro: Denies numbness, tingling, weakness or focal weakness Skin: Denies rash Except as documented, all other systems reviewed and negative <ARNOL Jones Last Filed: 04/09/22 18:47> [facility] Past Medical History Medical History: Medical History Allergies COPD (chronic obstructive pulmonary disease) DVT (deep venous thrombosis) Exocrine pancreatic insufficiency History of right breast cancer Hypothyroidism, unspecified Osteoporosis due to aromatase inhibitor Overweight (BMI 25.0-29.9) Right knee pain <Nevin Crisostomo PA-C - Last Filed: 04/09/22 18:47> Family History Family History: Family History Father Family history of diabetes mellitus in first degree relative Family history of congestive heart failure Mother Family history of malignant neoplasm of breast in first degree relative Other Family history of malignant neoplasm <ARNOL Jones Last Filed: 04/09/22 18:47> Social History Social History: Social History (Updated 04/02/22 @ 12:13 by Yumiko Boateng MA) Smoking status: Never smoker Second hand tobacco smoke exposure: No Alcohol intake: former Alcohol use details: STATES SOCIAL DRINKER IN THE PAST NONE SINCE 2013 Substance use: never Substance use type: does not use Spiritual care concerns: No <ARNOL Jones Last Filed: 04/09/22 18:47> Exam Narrative: Gen: Alert, oriented, no acute distress Eyes: EOMI, no icterus Pulm: Respirations even and unlabored, symmetric thorax expansion, no audible stridor or visible cyanosis CV: Regular rate per telemetry GI: No distension, no voluntary/involuntary guarding Neuro: AOx4, moves all extremities without apparent difficulty or weakness, follows commands MSK: Right wrist with obvious deformity. Tender to palpation over distal radius. No carpal bone tenderness or anatomic snuffbox tenderness. Sensation is intact distal to tenderness. Able to move fingers. Good capillary refill. 2+ radial pulse. Skin: No jaundice, no visible bruising, rashes, lesions or wounds on exposed skin Psych:
[2022-04-09] MEDS: MORPHINE SULFATE (*CRX) 4 MG/ML INJ IV PUSH (16:57)
--- NOTE | 2022-04-09 17:45 | PC.NURSE ---
pt offered ambulance for transport to [facility]. pt and daughter refusing to go by ambulance and requesting to go by private vehicle. PA Nevin aware and okay with patient going by private vehicle. IV removed w/ catheter intact. Transfer form, chart, and disc given to pt. report called to MARY Szymanski. accepting physician is Dr. Recinos.
[2022-04-09 17:48] VITALS: PULSE 90; RESP 18; O2SAT 98
== END 2022-04-09 17:51 | disposition short-term general hospital (02) ==
PROVIDERS: Emergency Provider Emergency Medicine; PCP Physician Assistant
DX: S52.571A Other intraarticular fracture of lower end of right radius, initial encounter for closed fracture (principal); S52.611A Displaced fracture of right ulna styloid process, initial encounter for closed fracture; J44.9 Chronic obstructive pulmonary disease, unspecified; E03.9 Hypothyroidism, unspecified; K86.81 Exocrine pancreatic insufficiency; E66.3 Overweight; Z68.28 Body mass index [BMI] 28.0-28.9, adult; Z85.3 Personal history of malignant neoplasm of breast; Z86.718 Personal history of other venous thrombosis and embolism; Z79.811 Long term (current) use of aromatase inhibitors; Z79.01 Long term (current) use of anticoagulants; W01.0XXA Fall on same level from slipping, tripping and stumbling without subsequent striking against object, initial encounter
CPT/HCPCS: 29125; 73110; 96374; 99284; J2270

== ENCOUNTER 2022-04-17 12:57 | Outpatient (CLI) | payer MEDICARE, SELFPAY ==
--- NOTE | ~2022-04-17 | XR_ITS ---
XR sacrum coccyx min 2V DATE: 04/17/2022 13:24 INDICATION: Sacrococcygeal pain after fall one week ago TECHNIQUE: AP, angled AP and lateral views of sacrum and coccyx COMPARISON: None FINDINGS: No fracture or bone destruction is evident. Normal alignment at the pubic symphysis and sac roiliac joints. Mild degenerative disc disease at L4-5 and L5-S1. Minimal anterolisthesis at L5-S1 due to degenerativ e change at the apophyseal joints. IMPRESSION: No fracture of sacrum or coccyx is detected Reviewed, dictated and finalized at location A.
== END 2022-04-17 12:58 | disposition home or self-care (01) ==
PROVIDERS: PCP Physician Assistant; Visit Provider Physician Assistant
DX: M53.3 Sacrococcygeal disorders, not elsewhere classified (principal)
CPT/HCPCS: 72220

== ENCOUNTER 2022-05-09 10:24 | Outpatient (RCR) | payer MEDICARE, SELFPAY ==
[2022-03-01 10:48] LABS: INR 3.3; Prothrombin Time 32.3 Seconds (11.1-14.7)
[2022-03-12 08:00] LABS: INR 2.7
[2022-04-02 12:44] LABS: INR 2.7; Prothrombin Time 27.7 Seconds (11.1-14.7)
[2022-05-09 10:45] LABS: INR 2.4; Prothrombin Time 25.3 Seconds (11.1-14.7)
== END 2022-05-30 23:59 | disposition home or self-care (01) ==
LOC: ANHLAB 10:24
PROVIDERS: PCP Physician Assistant; Visit Provider Physician Assistant
DX: I82.409 Acute embolism and thrombosis of unspecified deep veins of unspecified lower extremity (principal)
CPT/HCPCS: 36415; 85610

== ENCOUNTER 2022-06-14 09:54 | Outpatient (CLI) | payer MEDICARE, SELFPAY ==
[2022-06-14 11:46] LABS: INR 2.3; Prothrombin Time 24.8 Seconds (11.1-14.7)
== END 2022-06-14 09:55 | disposition home or self-care (01) ==
PROVIDERS: PCP Physician Assistant; Visit Provider Physician Assistant
DX: I82.409 Acute embolism and thrombosis of unspecified deep veins of unspecified lower extremity (principal)
CPT/HCPCS: 36415; 85610

== ENCOUNTER 2022-07-02 10:02 | Outpatient (CLI) | payer MEDICARE, SELFPAY ==
--- NOTE | ~2022-07-02 | MM_ITS ---
EXAMINATION: MM screening mable LT w abraham HISTORY: Screening TECHNIQUE: Craniocaudal and mediolateral oblique 3-D tomosynthesis images were obtained and synthetic 2-D images were generated. CAD analysis was submitted and interpreted. COMPARISON: Comparison to multiple prior studies sequentially, with oldest reviewed study dated 07/08. BREAST PARENCHYMAL COMPOSITION: There are scattered areas of fibroglandular density. FINDINGS: There is no evidence of suspicious mass, calcification, or architectural distortion to sugg est malignancy in the left breast. There has been no suspicious interval change. IMPRESSION: 1. No mammographic evidence of malignancy. 2. Recommend routine screening mammography in one year. BI-RADS Category 1: Negative Reviewed, dictated and finalized at location A.
== END 2022-07-02 10:03 | disposition home or self-care (01) ==
LOC: ANHIMG 10:04
PROVIDERS: PCP Physician Assistant; Visit Provider Internal Medicine Hematology & Oncology
DX: Z12.31 Encounter for screening mammogram for malignant neoplasm of breast (principal)
CPT/HCPCS: 77063; 77067

== ENCOUNTER 2022-07-11 14:29 | Outpatient (CLI) | payer MEDICARE, SELFPAY ==
[2022-07-11 16:11] LABS: Cholesterol 204 mg/dL (0-200); HDL Direct 56 mg/dL; Triglycerides 104 mg/dL (<150)
[2022-07-11 16:23] LABS: LDL Cholesterol Direct 115 mg/dL
[2022-07-11 17:10] LABS: Free T4 Free Thyroxine 1.29 ng/mL (0.78-2.19)
[2022-07-11 17:25] LABS: Folic Acid > 20.0 ng/mL (2.76->20)
== END 2022-07-11 14:30 | disposition home or self-care (01) ==
LOC: ANHLAB 14:32
PROVIDERS: PCP Physician Assistant; Visit Provider Physician Assistant
DX: E03.9 Hypothyroidism, unspecified (principal); E88.81 Metabolic syndrome and other insulin resistance; R53.83 Other fatigue; E55.9 Vitamin D deficiency, unspecified
CPT/HCPCS: 36415; 80061; 82306; 82607; 82746; 84439; 84443

== ENCOUNTER 2022-07-27 00:34 | Day surgery (SDC) | payer MEDICARE, SELFPAY ==
[2022-07-25 12:34] VITALS: BMI 27.7
--- NOTE | 2022-07-25 12:43 | PC.NURSE ---
Report to the Outpatient Waiting Room, entrance under the green pavilion located off [facility], at time 0700 on date 07/27/22. OR Time: 0900. Time changes happen often and if your time is changed the preop area will call you the afternoon before. - You and your visitor will be asked to self-screen and do not enter if you have any COVID symptoms. - Only one visitor and NO children visitors are allowed at this time. - The patient visitor is requested to leave or wait in car when not with patient due to restrictions. - A mask is required within the hospital. Patients may have clear liquids (water, carbonated beverages, clear teas, apple juice) until 3 hours prior to surgery with a maximum of 20 ounces. - No food from midnight until time of surgery Take the following medications with a SIP of water the morning of surgery: INHALERS, GABAPENTIN, LETROZOLE, LEVOTHYROXINE, ROPINIROLE Medications to discontinue per physician: VITAMINS/SUPPLEMENTS Date to take last dose: NO MORE UNTIL AFTER SURGERY PT TOOK LAST DOSE OF WARFARIN 07/24 (AT NIGHT) PER DR. KHAN'S INSTRUCTIONS Please no make-up, nail tajik, hairspray, perfume, deodorant, or body powder the day of surgery. No jewelry (including any body piercings) or valuables the day of surgery, leave them at home. Please take a shower or bath the night before, or the morning of, surgery with an antibacterial soap. Wear comfortable, loose fitting clothing. - Jewelry must be removed prior to entering the operating room. Rings and piercings that are not removed may be cut off. - The hospital will not accept responsibility for valuables. - Please leave all valuables, including medications, at home the day of surgery. If you are going home after surgery, a licensed tram driver must drive you home. - NO public transportation without another adult. - We recommend that an adult stay with you for 24 hours following discharge. - We also recommend that you do not drive, make important decision, drink alcoholic beverages, or take any drugs that were not prescribed by your health care provider for at least 24 hours after your discharge time. Follow any additional instructions given to you from your surgeon. If you or anyone in your household have experienced Covid symptoms in the past week, please notify your surgeon or the nurse liaison at the phone number below for possible testing. Telephone instructions given to PT - CHPAINCITO ALEXANDER and asked if any additional questions and then verbalized understanding. Patient advised to call surgeon office or pre surgery nurse liaison [phone] if any additional questions.
[2022-07-27] VITALS (8 sets, daily range): BP systolic 124–161; BP diastolic 81–96; PULSE 78–101; RESP 12–18; TEMP 36.2–36.3; O2SAT 95–100
[2022-07-27] MEDS: CELECOXIB 200 MG CAPSULE PO (07:26)
[2022-07-27] MEDS: ACETAMINOPHEN 500 MG TABLET 1000 MG PO (07:26)
--- NOTE | 2022-07-27 07:27 | WPDHPUPDATE1 ---
History and Physical Update Update Date/Time: 07/27/22 07:27 History and Physical has been reviewed, including an updated exam of the patient. There are NO changes in the patient's condition. Risks, benefits, and alternatives have been discussed and questions answered. Patient agrees to proceed with procedure.
[2022-07-27] MEDS: LACTATED RINGERS 1,000 ML 30 ML IV CONT ×2 (07:48→11:05)
[2022-07-27 07:58] LABS: INR 1.6; Partial Thromboplastin Time 27.8 SECONDS (22.3-36.8); Prothrombin Time 18.4 Seconds (11.1-14.7)
--- NOTE | 2022-07-27 08:16 | WPDANESEPPF ---
Anes - Initial Pre Proc Eval Procedure: Operation Date: 07/27/22 09:00 Proposed Procedures p Right Knee Arthroscopy, Proceed As Indicated - Bryson Cintron MD Date/Time: 07/27/22 08:16 Surgeon: Bryson Cintron MD Pre Op Diagnosis: right knee recurrent meniscal tear Patient Data Age: 72 Gender: F Height: 1.75 m Weight: 84.8 kg Last Vital Signs Temp 36.3 C L 07/27/22 07:53 Pulse 81 07/27/22 07:53 Resp 16 07/27/22 07:53 BP 127/83 07/27/22 07:53 Pulse Ox 98 07/27/22 07:53 O2 Del Method Room Air 07/27/22 07:53 Allergies Allergy/AdvReac Type Severity Reaction Status Date / Time No Known Allergies Allergy Verified 07/27/22 07:20 Home Medications Medication Instructions Recorded Confirmed Type calcium carbonate 600 mg calcium 600 mg PO DAILY #1 tablet 09/21/19 07/27/22 Rx (1,500 mg) tablet (Calcium) cholecalciferol (vitamin D3) 125 5,000 unit PO DAILY #1 cap 09/21/19 07/27/22 Rx mcg (5,000 unit) capsule letrozole 2.5 mg tablet 2.5 mg PO DAILY #1 tablet 09/21/19 07/27/22 Rx mecobalamin (vitamin B12) 1,000 1,000 mcg sublingual DAILY #1 09/21/19 07/27/22 Rx mcg disintegrating tablet tablet,sublingual multivitamin (One-A-Day Essential 1 tablet PO DAILY #1 tablet 09/21/19 07/27/22 Rx tablet) ascorbic acid (vitamin C) 1,000 mg 5 gm PO DAILY 06/14/20 07/27/22 History tablet gabapentin 800 mg tablet 800 mg PO BID 06/14/20 07/27/22 History albuterol sulfate 90 mcg/actuation 2 puff inhalation Q4-6H PRN 04/14/21 07/25/22 Rx aerosol inhaler shortness of breath or wheezing #8.5 grams ropinirole 0.25 mg tablet See Rx Instructions .Route 11/16/21 07/27/22 Rx .COMPLEX #90 tabs levothyroxine 100 mcg tablet See Rx Instructions .Route 03/26/22 07/27/22 Rx (Synthroid) .COMPLEX #90 tabs fluticasone propionate 230 2 puff inhalation BID 05/17/22 07/27/22 History mcg-salmeterol 21 mcg/actuation HFA inhaler (Advair HFA) montelukast 10 mg tablet See Rx Instructions .Route 05/25/22 07/27/22 Rx .COMPLEX #90 tabs warfarin 1 mg tablet See Rx Instructions .Route 05/30/22 07/25/22 Rx .COMPLEX #90 tabs dicyclomine 20 mg tablet See Rx Instructions .Route 06/04/22 07/27/22 Rx .COMPLEX #270 tabs warfarin 2 mg tablet 4 mg PO DAILY #180 tabs 07/01/22 07/25/22 Rx Laboratory Tests 07/27/22 07:38 PT 18.4 Seconds H Seconds (11.1-14.7) INR 1.6 APTT 27.8 SECONDS SECONDS (22.3-36.8) Patient hx anesthesia problems: none Family hx anesthesia problems: none Results Review: All pre-operative results and documents have been reviewed as part of the pre-operative evaluation. [facility] Past Medical History Medical History Allergies COPD (chronic obstructive pulmonary disease) DVT (deep venous thrombosis) Exocrine pancreatic insufficiency History of right breast cancer Hypothyroidism, unspecified Osteoporosis due to aromatase inhibitor Overweight (BMI 25.0-29.9) Right knee pain Surgical History Surgical History (Updated 07/27/22 @ 08:20 by Mook Hooks MD) H/O arthroscopic knee surgery H/O breast surgery Family History Family History Father Family history of diabetes mellitus in first degree relative Family history of congestive heart failure Mother Family history of malignant neoplasm of breast in first degree relative Other Family history of malignant neoplasm Social History Social History Smoking status: Never smoker Second hand tobacco smoke exposure: No Alcohol intake: never Alcohol use details: STATES SOCIAL DRINKER IN THE PAST NONE SINCE 2013 Substance use: never Substance use type: does not use Living arrangements: with family Spiritual care concerns: No Anes - Eval Final PreProcedure Day of Procedure 07/27/22 08:16 Patient w
--- NOTE | 2022-07-27 09:23 | PM.IMHP ---
H&P: HPI History of Present Illness Date/Time: 07/27/22 09:23 Chief Complaint: RIGHT KNEE PAIN Narrative: RIGHT KNEE RECURRENT MEDIAL MENISCUS TEAR HERE FOR RIGHT KNEE SCOPE. Review of Systems Review of Systems: All systems reviewed & are unremarkable except as noted in HPI and below PMFSH Past Medical History Medical History Allergies COPD (chronic obstructive pulmonary disease) DVT (deep venous thrombosis) Exocrine pancreatic insufficiency History of right breast cancer Hypothyroidism, unspecified Osteoporosis due to aromatase inhibitor Overweight (BMI 25.0-29.9) Right knee pain Surgical History Surgical History H/O arthroscopic knee surgery H/O breast surgery Family History Family History Father Family history of diabetes mellitus in first degree relative Family history of congestive heart failure Mother Family history of malignant neoplasm of breast in first degree relative Other Family history of malignant neoplasm Social History Social History Smoking status: Never smoker Second hand tobacco smoke exposure: No Alcohol intake: never Alcohol use details: STATES SOCIAL DRINKER IN THE PAST NONE SINCE 2013 Substance use: never Substance use type: does not use Living arrangements: with family Spiritual care concerns: No Meds Home Medications and Allergies Home Medications Medication Instructions Recorded Confirmed Type calcium carbonate 600 mg calcium 600 mg PO DAILY #1 tablet 09/21/19 07/27/22 Rx (1,500 mg) tablet (Calcium) cholecalciferol (vitamin D3) 125 5,000 unit PO DAILY #1 cap 09/21/19 07/27/22 Rx mcg (5,000 unit) capsule letrozole 2.5 mg tablet 2.5 mg PO DAILY #1 tablet 09/21/19 07/27/22 Rx mecobalamin (vitamin B12) 1,000 1,000 mcg sublingual DAILY #1 09/21/19 07/27/22 Rx mcg disintegrating tablet tablet,sublingual multivitamin (One-A-Day Essential 1 tablet PO DAILY #1 tablet 09/21/19 07/27/22 Rx tablet) ascorbic acid (vitamin C) 1,000 mg 5 gm PO DAILY 06/14/20 07/27/22 History tablet gabapentin 800 mg tablet 800 mg PO BID 06/14/20 07/27/22 History albuterol sulfate 90 mcg/actuation 2 puff inhalation Q4-6H PRN 04/14/21 07/25/22 Rx aerosol inhaler shortness of breath or wheezing #8.5 grams ropinirole 0.25 mg tablet See Rx Instructions .Route 11/16/21 07/27/22 Rx .COMPLEX #90 tabs levothyroxine 100 mcg tablet See Rx Instructions .Route 03/26/22 07/27/22 Rx (Synthroid) .COMPLEX #90 tabs fluticasone propionate 230 2 puff inhalation BID 05/17/22 07/27/22 History mcg-salmeterol 21 mcg/actuation HFA inhaler (Advair HFA) montelukast 10 mg tablet See Rx Instructions .Route 05/25/22 07/27/22 Rx .COMPLEX #90 tabs warfarin 1 mg tablet See Rx Instructions .Route 05/30/22 07/25/22 Rx .COMPLEX #90 tabs dicyclomine 20 mg tablet See Rx Instructions .Route 06/04/22 07/27/22 Rx .COMPLEX #270 tabs warfarin 2 mg tablet 4 mg PO DAILY #180 tabs 07/01/22 07/25/22 Rx Allergies Allergy/AdvReac Type Severity Reaction Status Date / Time No Known Allergies Allergy Verified 07/27/22 07:20 Vital Signs Vital Signs - 24 hr 07/27/22 07:53 Temperature 36.3 C L Pulse Rate 81 Respiratory Rate 16 Blood Pressure 127/83 Pulse Oximetry 98 Oxygen Delivery Room Air Exam Const: General: cooperative, healthy appearing, comfortable and no acute distress Eyes: General: appearance normal, both eyes and all related structures Neck: Neck: normal visual inspection Resp: Effort & Inspection: normal respiratory effort and able to speak in complete sentences Cardio: Heart sounds: S1 normal heart sound present and S2 normal heart sound present GI: Inspection: normal to inspection Extrem: Right lower extremity: normal t
[2022-07-27] MEDS: ceFAZolin 2 GM/D5W 50 ML 2 GM/50 ML BAG IVPB (09:34)
[2022-07-27] MEDS: BUPIVACAINE HCL 0.5% PF 30 ML VIAL INFILTRATE (10:03)
[2022-07-27] MEDS: methylPREDNISolone ACETATE 80 MG/ML VIAL IM (10:11)
[2022-07-27] MEDS: fentaNYL CITRATE INJ (*CRX) 100 MCG/2 ML VIAL 25 MCG IV PUSH ×4 (11:17→11:36)
--- NOTE | 2022-07-27 11:29 | SUR.PHASEI ---
1129: Simple mask removed.
[2022-07-27] MEDS: ONDANSETRON INJ 4 MG/2 ML VIAL IV PUSH (12:32)
--- NOTE | 2022-07-27 13:09 | W.PM.PROC2 ---
Procedure Note - Detailed Date of Procedure 07/27/22 Pre-op Diagnosis right knee recurrent meniscal tear Post-op Diagnosis Same Procedure Performed RIGHT KNEE SCOPE Surgeon Bryson Cintron MD Anesthesia General Description of Procedure PATIENT WAS TAKEN TO THE OR. RIGHT LEG WAS PREPPED AND DRAPED STERILE. TROCARS WERE PLACED IN THE USUAL FASHION. CAMERA WAS INTRODUCED. THERE WAS CHONDROMALACIA TO THE PATELLA FEMORAL JOINT AND FULL THICKNESS CARTILAGE DEFECTS WELL THERE WAS A LOT OF SYNOVITIS IN ALL COMPARTMENTS. THE MEDIAL COMPARTMENT SHOWED CHONDROMALACIA TO THE MEDIAL FEMORAL CONDYLE AND FULL THICKNESS CARTILAGE DEFECT ON THE MAIN WEIGHT BEARING SURFACE A SHAVER WAS USED TO PREFORM A CHONDROPLASTY. THERE WAS A RECURRENT COMPLEX MEDIAL MENISCUS TEAR. THE TEAR WAS RESECTED WITH A BITER AND A SHAVER DOWN TO A SMOOTH BASE. ABOUT 20% OF THE MENISCUS WAS REMOVED. THE ACL WAS INTACT. THE LATERAL MENISCUS SHOWED A PRIOR PARTIAL MENISCECTOMY AND IT WAS STABLE. THE LATERAL COMPARTMENT HAD GRADE CHONDROMALACIA AT THE LATERAL FEMORAL CONDYLE. CHONDROPLASTY WAS PREFORMED. A SYNOVECTOMY WAS PREFORMED WELL. THE PATELLO FEMORAL JOINT UNDERWENT CHONDROPLASTY. THERE WAS GRADE 3 CHONDROMALACIA AND FULL THICKNESS DEFECT IN MOST OF THE TROCHLEA AND PART OF THE PATELLA. SYNOVECTOMY WAS PREFORMED IN THE SUPERIOR MEDIAL COMPARTMENT. THE WOUNDS WERE APPROXIMATED WITH 4.0 NYLON. STERILE DRESSING WAS APPLIED. PATIENT WAS EXTUBATED. Estimated Blood Loss -5.0 Complications No immediate complications Condition Stable Disposition PACU
== END 2022-07-27 13:25 | disposition home or self-care (01) ==
PROVIDERS: Anesthesiology; PCP Physician Assistant; Visit Provider Orthopaedic Surgery
PROC: (CPT 29870; principal; 2022-07-27 09:00)
DX: S83.231A Complex tear of medial meniscus, current injury, right knee, initial encounter (principal); S83.31XA Tear of articular cartilage of right knee, current, initial encounter; M94.261 Chondromalacia, right knee; M65.861 Other synovitis and tenosynovitis, right lower leg; W00.0XXA Fall on same level due to ice and snow, initial encounter; J44.9 Chronic obstructive pulmonary disease, unspecified; E03.9 Hypothyroidism, unspecified; M81.8 Other osteoporosis without current pathological fracture; T45.1X5S Adverse effect of antineoplastic and immunosuppressive drugs, sequela; Z85.3 Personal history of malignant neoplasm of breast; Z86.718 Personal history of other venous thrombosis and embolism; Z79.51 Long term (current) use of inhaled steroids; Z79.01 Long term (current) use of anticoagulants
CPT/HCPCS: 29881; 29876; 36415; 85610; 85730; A9270; J0690; J1040; J1100; J2250; J2370; J2405; J2704; J3010; J7120

== ENCOUNTER 2022-08-08 12:35 | Outpatient (RCR) | payer MEDICARE, SELFPAY ==
[2022-07-11 16:04] LABS: INR 2.1
== END 2022-09-07 12:43 | disposition home or self-care (01) ==
LOC: ANHLAB 12:35
PROVIDERS: PCP Physician Assistant; Visit Provider Physician Assistant
DX: I82.409 Acute embolism and thrombosis of unspecified deep veins of unspecified lower extremity (principal); E03.9 Hypothyroidism, unspecified; E88.81 Metabolic syndrome and other insulin resistance; E55.9 Vitamin D deficiency, unspecified
CPT/HCPCS: 36415; 80053; 80061; 82306; 82607; 82746; 84439; 84443; 85025; 85610; 86300

== ENCOUNTER 2022-08-08 12:36 | Outpatient (CLI) | payer MEDICARE, SELFPAY ==
[2022-08-08 13:32] LABS: Appearance Urine Clear (Clear); Bilirubin Urine Negative (Negative); Blood Urine 2+ (Negative); Color Urine Yellow (Yellow); Glucose Urine UA Negative (Negative); Ketones Urine Negative (Negative); Leukocyte Esterase Ur Trace LEU/UL (NEGATIVE); Nitrate Urine Negative (Negative); Protein Urine Negative (Negative); Specific Grav Ur 1.015 (1.001-1.035); Urobilinogen Urine 0.2 mg/dL (<2.0); pH Urine 5.5 (5.0-9.0)
[2022-08-08 13:41] LABS: INR 2.1
[2022-08-08 13:58] LABS: Mucus Urine Rare /lpf; RBC Urine 21-50 /hpf (0-2); Squamous Epithelial Cell Urine Rare /hpf (Few)
[2022-08-08 14:05] LABS: Add Urine Microscopic? YES
== END 2022-08-08 12:37 | disposition home or self-care (01) ==
PROVIDERS: PCP Physician Assistant; Visit Provider Physician Assistant
DX: I82.409 Acute embolism and thrombosis of unspecified deep veins of unspecified lower extremity (principal); R30.0 Dysuria
CPT/HCPCS: 36415; 81001; 85610; 87086; 87088

== ENCOUNTER 2022-09-13 00:57 | Day surgery (SDC) | payer MEDICARE, SELFPAY ==
[2022-09-05 15:27] VITALS: BMI 27.3
--- NOTE | 2022-09-12 15:26 | PM.HPGS ---
History of Present Illness History of Present Illness Consent: Risks, benefits, and alternatives have been discussed and questions answered. Patient agrees to proceed with procedure. Chief complaint: screening colonoscopy Narrative: Damien Pulido is a 72 year old female Who was a breast cancer survivor who referred for colon cancer screening. She is on chronic anticoagulation with warfarin due to deep vein thrombosis. Has been least 10 years since her last colonoscopy. Review of Systems Review of Systems: All systems reviewed & are unremarkable except as noted in HPI and below PMFSH Past Medical History Medical History Allergies COPD (chronic obstructive pulmonary disease) DVT (deep venous thrombosis) Exocrine pancreatic insufficiency History of right breast cancer Hypothyroidism, unspecified Osteoporosis due to aromatase inhibitor Overweight (BMI 25.0-29.9) Right knee pain Surgical History Surgical History H/O arthroscopic knee surgery 12/29/21 & 07/27/22 H/O breast surgery Family History Family History Father Family history of diabetes mellitus in first degree relative Family history of congestive heart failure Mother Family history of malignant neoplasm of breast in first degree relative Other Family history of malignant neoplasm Social History Social History Smoking status: Never smoker Second hand tobacco smoke exposure: No Alcohol intake: former Alcohol use details: STATES SOCIAL DRINKER IN THE PAST NONE SINCE 2013 Substance use: never Substance use type: does not use Living arrangements: with family Spiritual care concerns: No Meds Home Medications and Allergies Home Medications Medication Instructions Recorded Confirmed Type calcium carbonate 600 mg calcium 600 mg PO DAILY #1 tablet 09/21/19 09/05/22 Rx (1,500 mg) tablet (Calcium) cholecalciferol (vitamin D3) 125 5,000 unit PO DAILY #1 cap 09/21/19 09/05/22 Rx mcg (5,000 unit) capsule letrozole 2.5 mg tablet 2.5 mg PO DAILY #1 tablet 09/21/19 09/05/22 Rx mecobalamin (vitamin B12) 1,000 1,000 mcg sublingual DAILY #1 09/21/19 09/05/22 Rx mcg disintegrating tablet tablet,sublingual multivitamin (One-A-Day Essential 1 tablet PO DAILY #1 tablet 09/21/19 09/05/22 Rx tablet) ascorbic acid (vitamin C) 1,000 mg 1 gm PO DAILY 06/14/20 09/05/22 History tablet gabapentin 800 mg tablet 400 mg PO BID 06/14/20 09/05/22 History albuterol sulfate 90 mcg/actuation 2 puff inhalation Q4-6H PRN 04/14/21 09/05/22 Rx aerosol inhaler shortness of breath or wheezing #8.5 grams ropinirole 0.25 mg tablet See Rx Instructions .Route 11/16/21 09/05/22 Rx .COMPLEX #90 tabs levothyroxine 100 mcg tablet See Rx Instructions .Route 03/26/22 09/05/22 Rx (Synthroid) .COMPLEX #90 tabs warfarin 1 mg tablet See Rx Instructions .Route 05/30/22 09/05/22 Rx .COMPLEX #90 tabs warfarin 2 mg tablet 4 mg PO DAILY #180 tabs 07/01/22 09/05/22 Rx fluticasone propionate 230 See Rx Instructions .Route 07/29/22 09/05/22 Rx mcg-salmeterol 21 mcg/actuation .COMPLEX #12 ea HFA inhaler (Advair HFA) montelukast 10 mg tablet See Rx Instructions .Route 08/22/22 09/05/22 Rx .COMPLEX #90 tabs dicyclomine 20 mg tablet 20 mg PO TID 09/05/22 09/05/22 History Allergies Allergy/AdvReac Type Severity Reaction Status Date / Time No Known Allergies Allergy Verified 09/13/22 08:15 Exam Resp: Auscultation: clear to auscultation bilaterally Cardio: Rate: regular rate Rhythm: regular rhythm GI: GI Palp: Yes Soft to palpation and No Tenderness to palpation present (GI) Assessment and Plan Assessment and plan (1) Colon cancer screening: Code(s): Z12.11 - Encounter for screening for malignant neoplasm of col
[2022-09-13 08:16] VITALS: BP 131/79; PULSE 103; RESP 20; TEMP 36.2; O2SAT 97
[2022-09-13] MEDS: LACTATED RINGERS 1,000 ML 150 ML IV CONT (08:27)
--- NOTE | 2022-09-13 08:48 | WPDANESEPPF ---
Anes - Initial Pre Proc Eval Procedure: Operation Date: 09/13/22 09:30 Proposed Procedures p Screening Colonoscopy - Sreedhar Smith MD Date/Time: 09/13/22 08:48 Surgeon: Sreedhar Smith MD Pre Op Diagnosis: screening colonoscopy Patient Data Age: 72 Gender: F Height: 1.75 m Weight: 84.4 kg Last Vital Signs Temp 97.2 F L 09/13/22 08:16 Pulse 103 H 09/13/22 08:16 Resp 20 09/13/22 08:16 BP 131/79 09/13/22 08:16 Pulse Ox 97 09/13/22 08:16 O2 Del Method Room Air 09/13/22 08:16 Allergies Allergy/AdvReac Type Severity Reaction Status Date / Time No Known Allergies Allergy Verified 09/13/22 08:15 Home Medications Medication Instructions Recorded Confirmed Type calcium carbonate 600 mg calcium 600 mg PO DAILY #1 tablet 09/21/19 09/05/22 Rx (1,500 mg) tablet (Calcium) cholecalciferol (vitamin D3) 125 5,000 unit PO DAILY #1 cap 09/21/19 09/05/22 Rx mcg (5,000 unit) capsule letrozole 2.5 mg tablet 2.5 mg PO DAILY #1 tablet 09/21/19 09/05/22 Rx mecobalamin (vitamin B12) 1,000 1,000 mcg sublingual DAILY #1 09/21/19 09/05/22 Rx mcg disintegrating tablet tablet,sublingual multivitamin (One-A-Day Essential 1 tablet PO DAILY #1 tablet 09/21/19 09/05/22 Rx tablet) ascorbic acid (vitamin C) 1,000 mg 1 gm PO DAILY 06/14/20 09/05/22 History tablet gabapentin 800 mg tablet 400 mg PO BID 06/14/20 09/05/22 History albuterol sulfate 90 mcg/actuation 2 puff inhalation Q4-6H PRN 04/14/21 09/05/22 Rx aerosol inhaler shortness of breath or wheezing #8.5 grams ropinirole 0.25 mg tablet See Rx Instructions .Route 11/16/21 09/05/22 Rx .COMPLEX #90 tabs levothyroxine 100 mcg tablet See Rx Instructions .Route 03/26/22 09/05/22 Rx (Synthroid) .COMPLEX #90 tabs warfarin 1 mg tablet See Rx Instructions .Route 05/30/22 09/05/22 Rx .COMPLEX #90 tabs warfarin 2 mg tablet 4 mg PO DAILY #180 tabs 07/01/22 09/05/22 Rx fluticasone propionate 230 See Rx Instructions .Route 07/29/22 09/05/22 Rx mcg-salmeterol 21 mcg/actuation .COMPLEX #12 ea HFA inhaler (Advair HFA) montelukast 10 mg tablet See Rx Instructions .Route 08/22/22 09/05/22 Rx .COMPLEX #90 tabs dicyclomine 20 mg tablet 20 mg PO TID 09/05/22 09/05/22 History Patient hx anesthesia problems: none Family hx anesthesia problems: none Results Review: All pre-operative results and documents have been reviewed as part of the pre-operative evaluation. [facility] Past Medical History Medical History (Updated 09/12/22 @ 15:27 by Sreedhar Smith MD) Allergies COPD (chronic obstructive pulmonary disease) DVT (deep venous thrombosis) Exocrine pancreatic insufficiency History of right breast cancer Hypothyroidism, unspecified Osteoporosis due to aromatase inhibitor Overweight (BMI 25.0-29.9) Right knee pain Surgical History Surgical History (Updated 08/09/22 @ 13:30 by Yumiko Boateng MA) H/O arthroscopic knee surgery 12/29/21 & 07/27/22 H/O breast surgery Family History Family History Father Family history of diabetes mellitus in first degree relative Family history of congestive heart failure Mother Family history of malignant neoplasm of breast in first degree relative Other Family history of malignant neoplasm Social History Social History Smoking status: Never smoker Second hand tobacco smoke exposure: No Alcohol intake: former Alcohol use details: STATES SOCIAL DRINKER IN THE PAST NONE SINCE 2013 Substance use: never Substance use type: does not use Living arrangements: with family Spiritual care concerns: No Anes - Eval Final PreProcedure Day of Procedure 09/13/22 08:48 Patient weight: normal Heart: regular rate and rhythm Lungs: clear to auscultation Airway: Mallampati scale class II Neurological: alert and oriented Last oral intake: >/= 8 hours A
[2022-09-13 09:28] VITALS: BP 105/82; PULSE 87; RESP 16; O2SAT 94
[2022-09-13 09:38] VITALS: BP 115/70; PULSE 79; RESP 21; O2SAT 97
[2022-09-13 09:48] VITALS: BP 104/77; PULSE 80; RESP 20; O2SAT 97
== END 2022-09-13 09:54 | disposition home or self-care (01) ==
PROVIDERS: PCP Physician Assistant; Visit Provider Internal Medicine Gastroenterology
PROC: 0DJD8ZZ Inspection of Lower Intestinal Tract, Via Natural or Artificial Opening Endoscopic (ICD-10-PCS; CPT 45378; principal; 2022-09-13 09:30)
DX: Z12.11 Encounter for screening for malignant neoplasm of colon (principal); K57.30 Diverticulosis of large intestine without perforation or abscess without bleeding; J44.9 Chronic obstructive pulmonary disease, unspecified; E03.9 Hypothyroidism, unspecified; M81.8 Other osteoporosis without current pathological fracture; K86.81 Exocrine pancreatic insufficiency; Z85.3 Personal history of malignant neoplasm of breast; Z79.51 Long term (current) use of inhaled steroids; Z79.01 Long term (current) use of anticoagulants; Z86.718 Personal history of other venous thrombosis and embolism
CPT/HCPCS: G0121; J2704; J7120

== ENCOUNTER 2022-09-26 07:08 | Outpatient (CLI) | payer MEDICARE, SELFPAY ==
[2022-09-26 08:01] LABS: INR 1.9; Prothrombin Time 21.2 Seconds (11.1-14.7)
== END 2022-09-26 07:09 | disposition home or self-care (01) ==
LOC: ANHLAB 07:09
PROVIDERS: PCP Physician Assistant; Visit Provider Physician Assistant
DX: I82.409 Acute embolism and thrombosis of unspecified deep veins of unspecified lower extremity (principal)
CPT/HCPCS: 36415; 85610

== ENCOUNTER 2023-01-03 08:26 | Outpatient (RCR) | payer MEDICARE, SELFPAY ==
[2022-10-05 08:59] LABS: INR 2.4; Prothrombin Time 25.2 Seconds (11.1-14.7)
[2022-10-29 11:29] LABS: INR 3.1; Prothrombin Time 30.7 Seconds (11.1-14.7)
[2022-11-08 09:18] LABS: INR 3.5; Prothrombin Time 33.9 Seconds (11.1-14.7)
[2022-11-22 10:42] LABS: Prothrombin Time 21.6 Seconds (11.1-14.7)
[2022-12-04 10:28] LABS: Prothrombin Time 21.9 Seconds (11.1-14.7)
[2022-12-20 08:47] LABS: INR 1.8; Prothrombin Time 20.6 Seconds (11.1-14.7)
[2023-01-03 09:05] LABS: INR 2.4; Prothrombin Time 25.5 Seconds (11.1-14.7)
== END 2023-01-03 23:59 | disposition home or self-care (01) ==
LOC: ANHLAB 08:26
PROVIDERS: PCP Physician Assistant; Visit Provider Physician Assistant
DX: I82.409 Acute embolism and thrombosis of unspecified deep veins of unspecified lower extremity (principal)
CPT/HCPCS: 36415; 85610

== ENCOUNTER 2023-02-19 12:07 | Outpatient (CLI) | payer MEDICARE, SELFPAY ==
--- NOTE | ~2023-02-19 | XR_ITS ---
XR chest 2V 02/19/2023 12:33 Indication: Cough Procedure: 2 view chest Comparison: 06/14/2020 Findings: Heart size normal. No focal air space disease, pulmonary edema, pleural effusion or suspect ed pneumothorax. The lungs are hyperinflated which is consistent with, but not diagnostic of chronic obstructive pulmonary disease. Mild elevation the right diaphragm. No acute osseous abnormality. Impression: 1: No acute cardiopulmonary disease. Reviewed, dictated and finalized at location L. Impression: 1: No acute cardiopulmonary disease.
== END 2023-02-19 12:08 | disposition home or self-care (01) ==
LOC: ANHIMG 12:11
PROVIDERS: PCP Physician Assistant; Visit Provider Physician Assistant
DX: R05.9 Cough, unspecified (principal)
CPT/HCPCS: 71046

== ENCOUNTER 2023-03-28 09:49 | Outpatient (RCR) | payer MEDICARE, SELFPAY ==
[2023-01-31 13:45] LABS: INR 2.6; Prothrombin Time 26.6 Seconds (11.1-14.7)
[2023-02-28 09:37] LABS: INR 3.1; Prothrombin Time 30.7 Seconds (11.1-14.7)
[2023-03-07 10:14] LABS: INR 2.8; Prothrombin Time 31.7 Seconds (11.1-14.7)
[2023-03-28 10:30] LABS: INR 2.3; Prothrombin Time 27.3 Seconds (11.1-14.7)
== END 2023-05-01 23:59 | disposition home or self-care (01) ==
LOC: ANHLAB 09:49
PROVIDERS: PCP Physician Assistant; Visit Provider Physician Assistant
DX: I82.409 Acute embolism and thrombosis of unspecified deep veins of unspecified lower extremity (principal)
CPT/HCPCS: 36415; 85610

== ENCOUNTER 2023-05-09 11:35 | Outpatient (CLI) | payer MEDICARE, SELFPAY ==
[2023-05-09 12:37] LABS: INR 3.6; Prothrombin Time 39.5 Seconds (11.1-14.7)
== END 2023-05-09 11:36 | disposition home or self-care (01) ==
PROVIDERS: PCP Physician Assistant; Visit Provider Physician Assistant
DX: I82.409 Acute embolism and thrombosis of unspecified deep veins of unspecified lower extremity (principal)
CPT/HCPCS: 36415; 85610

== ENCOUNTER 2023-06-13 09:35 | Outpatient (CLI) | payer MEDICARE, SELFPAY ==
[2023-06-13 10:56] LABS: Cholesterol 221 mg/dL (0-200); HDL Direct 48 mg/dL; Triglycerides 119 mg/dL (<150)
[2023-06-13 11:08] LABS: LDL Cholesterol Direct 109 mg/dL
[2023-06-13 11:28] LABS: Thyroid Stimulating Hormone 0.051 uIU/mL (0.465-4.680)
[2023-06-13 11:32] LABS: Free T4 Free Thyroxine 1.47 ng/mL (0.78-2.19); Vitamin D 25 Hydroxy 78.8 ng/mL
[2023-06-13 12:06] LABS: Folic Acid > 20.0 ng/mL (2.76->20); Vitamin B12 > 1000.0 pg/mL (239-931)
== END 2023-06-13 09:36 | disposition home or self-care (01) ==
LOC: ANHLAB 09:38
PROVIDERS: PCP Physician Assistant; Visit Provider Physician Assistant
DX: E03.9 Hypothyroidism, unspecified (principal); E88.81 Metabolic syndrome and other insulin resistance; R53.83 Other fatigue; E55.9 Vitamin D deficiency, unspecified
CPT/HCPCS: 36415; 80061; 82306; 82607; 82746; 84439; 84443; 85610

== ENCOUNTER 2023-07-16 07:49 | Outpatient (CLI) | payer MEDICARE, SELFPAY | END 2023-07-16 07:50 | disposition home or self-care (01) | LOC: ANHAUDIO 07:51 | PROVIDERS: PCP Physician Assistant; Visit Provider Physician Assistant | DX: H90.3 Sensorineural hearing loss, bilateral (principal) | CPT/HCPCS: 92557; 92567 ==

== ENCOUNTER 2023-07-18 09:37 | Outpatient (CLI) | payer MEDICARE, SELFPAY ==
--- NOTE | ~2023-07-18 | MM_ITS ---
EXAMINATION: MM screening mable LT w abraham HISTORY: Screening mammogram; status post right mastectomy TECHNIQUE: Craniocaudal and mediolateral oblique 3-D tomosynthesis images were obtained and synthetic 2-D images were generated. CAD analysis was submitted and interpreted. COMPARISON: 07/02/2022, 06/29/2021, 06/28/2020 left screening mammogram examinations BREAST PARENCHYMAL COMPOSITION: The breasts are heterogeneously dense, which may obscure small masses . FINDINGS: Occasional benign calcifications are again noted. There is no evidence of suspicious mass, calcification, or architectural distortion to suggest malignancy in either breast. There has been no suspicious interval change. IMPRESSION: 1. Status post right mastectomy for breast cancer 6 years ago. No mammographic evidence of malignancy . 2. Recommend routine screening mammography in one year. BI-RADS Category 2: Benign finding(s). Reviewed, dictated and finalized at location A. IMPRESSION: 1. Status post right mastectomy for breast cancer 6 years ago. No mammographic evidence of malignancy. 2. Recommend routine screening mammography in one year. BI-RADS Category 2: Benign finding(s).
--- NOTE | ~2023-07-18 | DEXA_ITS ---
Bone Density Report Name: CHAPINCITO ALEXANDER Age: 73 Sex: Female Ethnicity: White Date of : 1950 Indication: osteopenia; monitoring treatment; prior fracture; cancer; hysterectomy; postmenopausal Referring Provider: KATELYNN MORALES Study: Bone densitometry was performed. Exam Date: July 18, 2023 Accession number: [id number] Bone Density: Region BMD T-score Z-score Classification AP Spine(L1, L2) 0.889 -0.8 1.2 Normal Femoral Neck (Left) 0.777 -0.6 1.2 Normal Total Hip (Left) 0.886 -0.5 1.1 Normal Femoral Neck (Right) 0.830 -0.2 1.7 Normal Total Hip (Right) 0.894 -0.4 1.2 Normal Total Hip Mean 0.890 -0.5 1.2 Normal World Health Organization criteria for BMD impression classify patients as: Normal (T-score at or above -1.0), Osteopenia (T-score between -1.0 and -2.5), or Osteoporosis (T-score at or below -2.5). 10-year Fracture Risk: FRAX not reported because: All T-scores for Spine Total, Hip Total, Femoral Neck at or above -1.0 Treated for osteoporosis Previous Exams: Region Exam Age BMD T-score BMD Change BMD Change Date g/cm2 vs Baseline vs Previous AP Spine (L1-L2) 07/18/2023 73 0.889 -0.8 0.107 (13.6%)* 0.078 (9.6%)* 07/13/2021 71 0.812 -1.5 0.029 (3.7%)* 0.017 (2.2%) 01/19/2019 68 0.794 -1.7 0.011 (1.5%) 0.011 (1.5%) 12/20/2016 66 0.783 -1.8 Total Hip(Left) 07/18/2023 73 0.886 -0.5 0.016 (1.8%) -0.021 (-2.3%) 07/13/2021 71 0.907 -0.3 0.036 (4.2%)* 0.000 (0.0%) 01/19/2019 68 0.907 -0.3 0.036 (4.2%)* 0.036 (4.2%)* 12/20/2016 66 0.870 -0.6 Total Hip(Right) 07/18/2023 73 0.894 -0.4 0.142 (18.9%)* 0.041 (4.8%)* 07/13/2021 71 0.853 -0.7 0.101 (13.4%)* -0.005 (-0.6%) 01/19/2019 68 0.858 -0.7 0.106 (14.1%)* 0.106 (14.1%)* 12/20/2016 66 0.752 -1.6 *Denotes significance at 95% confidence level, LSC for AP Spine = 0.022 g/cm2, LSC for Total Hip = 0.027 g/cm2 Clinical Information Provided by Patient: Has had a low trauma fracture Is being treated for osteoporosis Has used the following medications: Prolia (i.e. denosumab), Calcium Has the following medical conditions: Cancer, Hysterectomy Patient maximum height was 69 Menopause Age: 53 No regular weight bearing exercise Does not regularly consume dairy products Drinks caffeinated beverages Onset of menses at age 14 Number of children 2 Impression: The patient has normal bone mass. T
== END 2023-07-18 09:38 | disposition home or self-care (01) ==
PROVIDERS: PCP Physician Assistant; Visit Provider Internal Medicine Hematology & Oncology
DX: Z12.31 Encounter for screening mammogram for malignant neoplasm of breast (principal); M81.8 Other osteoporosis without current pathological fracture; T38.6X5A Adverse effect of antigonadotrophins, antiestrogens, antiandrogens, not elsewhere classified, initial encounter; Z85.3 Personal history of malignant neoplasm of breast; Z90.11 Acquired absence of right breast and nipple
CPT/HCPCS: 36415; 77063; 77067; 77080; 80053; 85025; 86300

== ENCOUNTER 2023-08-01 09:05 | Outpatient (CLI) | payer MEDICARE, SELFPAY ==
[2023-08-01 10:50] LABS: Thyroid Stimulating Hormone 0.056 uIU/mL (0.465-4.680)
[2023-08-01 10:51] LABS: Free T4 Free Thyroxine 1.36 ng/mL (0.78-2.19)
== END 2023-08-01 09:06 | disposition home or self-care (01) ==
LOC: ANHLAB 09:06
PROVIDERS: PCP Physician Assistant; Visit Provider Physician Assistant
DX: E03.9 Hypothyroidism, unspecified (principal)
CPT/HCPCS: 36415; 84439; 84443

== ENCOUNTER 2023-08-15 10:02 | Outpatient (RCR) | payer MEDICARE, SELFPAY ==
[2023-05-23 10:19] LABS: INR 2.3; Prothrombin Time 26.8 Seconds (11.1-14.7)
[2023-06-06 10:20] LABS: Prothrombin Time 33.3 Seconds (11.1-14.7)
[2023-06-13 10:53] LABS: INR 2.3; Prothrombin Time 27.1 Seconds (11.1-14.7)
[2023-06-27 09:22] LABS: INR 2.5; Prothrombin Time 28.8 Seconds (11.1-14.7)
[2023-08-01 10:19] LABS: Prothrombin Time 24.4 Seconds (11.1-14.7)
[2023-08-15 11:25] LABS: INR 2.6; Prothrombin Time 29.9 Seconds (11.1-14.7)
== END 2023-08-21 23:59 | disposition home or self-care (01) ==
LOC: ANHLAB 10:02
PROVIDERS: PCP Physician Assistant; Visit Provider Physician Assistant
DX: I82.409 Acute embolism and thrombosis of unspecified deep veins of unspecified lower extremity (principal); E03.9 Hypothyroidism, unspecified
CPT/HCPCS: 36415; 84439; 84443; 85610; 87637

== ENCOUNTER 2023-08-15 10:03 | Outpatient (CLI) | payer MEDICARE, SELFPAY ==
[2023-08-15 13:24] LABS: Influenza A QL RT-PCR Negative (Negative); Influenza B QL RT-PCR Negative (Negative); RSV RNA, RT-PCR Negative (Negative); SARS-CoV-2 RNA PCR Negative (Negative)
== END 2023-08-15 10:04 | disposition home or self-care (01) ==
LOC: ANHLAB 10:08
PROVIDERS: PCP Physician Assistant; Visit Provider Physician Assistant
DX: J20.9 Acute bronchitis, unspecified (principal); J44.0 Chronic obstructive pulmonary disease with (acute) lower respiratory infection; R05.9 Cough, unspecified
CPT/HCPCS: 87637

== ENCOUNTER 2023-08-27 11:15 | Outpatient (CLI) | payer MEDICARE, SELFPAY ==
--- NOTE | ~2023-08-27 | XR_ITS ---
Clinical Indication: Cough PA and lateral views of the chest: Comparison: 02/19/2023 Findings: The lungs are clear, without evidence of focal consolidation or pleural effusion. Possible COPD. Cardiomediastinal silhouette is within normal limits. Bones and soft tissues are unremarkable. Impression: Clear lungs. Possible COPD. Reviewed, dictated and finalized at location . Impression: Clear lungs. Possible COPD.
== END 2023-08-27 11:16 | disposition home or self-care (01) ==
PROVIDERS: PCP Physician Assistant; Visit Provider Physician Assistant
DX: R05.9 Cough, unspecified (principal)
CPT/HCPCS: 71046

== ENCOUNTER 2023-10-29 09:25 | Outpatient (CLI) | payer MEDICARE, SELFPAY | END 2023-10-29 09:26 | disposition home or self-care (01) | LOC: ANHLAB 09:27 | PROVIDERS: PCP Physician Assistant; Visit Provider Physician Assistant | DX: E03.9 Hypothyroidism, unspecified (principal) | CPT/HCPCS: 36415; 84443 ==

== ENCOUNTER 2023-11-14 10:00 | Outpatient (RCR) | payer MEDICARE, SELFPAY | END 2023-12-17 23:59 | disposition home or self-care (01) | LOC: ANHAUDASC 10:00 | PROVIDERS: PCP Physician Assistant; Visit Provider Physician Assistant | DX: Z46.1 Encounter for fitting and adjustment of hearing aid (principal); H91.90 Unspecified hearing loss, unspecified ear | CPT/HCPCS: 99199; V5261 ==

== ENCOUNTER 2023-12-09 09:19 | Outpatient (RCR) | payer MEDICARE, SELFPAY ==
[2023-09-12 09:46] LABS: Prothrombin Time 23.8 Seconds (11.1-14.7)
[2023-09-26 10:58] LABS: INR 2.3; Prothrombin Time 26.9 Seconds (11.1-14.7)
[2023-10-08 11:46] LABS: INR 2.2; Prothrombin Time 25.7 Seconds (11.1-14.7)
[2023-10-29 10:06] LABS: INR 2.4; Prothrombin Time 28.2 Seconds (11.1-14.7)
[2023-11-25 11:21] LABS: INR 2.5; Prothrombin Time 28.4 Seconds (11.1-14.7)
[2023-12-09 09:59] LABS: INR 1.9; Prothrombin Time 22.6 Seconds (11.1-14.7)
== END 2023-12-11 23:59 | disposition home or self-care (01) ==
LOC: ANHLAB 09:19
PROVIDERS: PCP Physician Assistant; Visit Provider Physician Assistant
DX: I82.409 Acute embolism and thrombosis of unspecified deep veins of unspecified lower extremity (principal); E03.9 Hypothyroidism, unspecified
CPT/HCPCS: 36415; 84439; 84443; 85610

== ENCOUNTER 2023-12-09 09:20 | Outpatient (CLI) | payer MEDICARE, SELFPAY ==
[2023-12-09 10:49] LABS: Free T4 Free Thyroxine 0.85 ng/mL (0.78-2.19)
== END 2023-12-09 09:21 | disposition home or self-care (01) ==
LOC: ANHLAB 09:22
PROVIDERS: PCP Physician Assistant; Visit Provider Physician Assistant
DX: E03.9 Hypothyroidism, unspecified (principal)
CPT/HCPCS: 36415; 84439; 84443

== ENCOUNTER 2024-03-31 09:54 | Outpatient (RCR) | payer MEDICARE, SELFPAY ==
[2024-01-06 11:22] LABS: INR 2.5; Prothrombin Time 28.9 Seconds (11.1-14.7)
[2024-02-03 10:03] LABS: INR 2.9; Prothrombin Time 32.2 Seconds (11.1-14.7)
[2024-02-17 10:31] LABS: INR 2.3; Prothrombin Time 26.7 Seconds (11.1-14.7)
[2024-03-31 10:23] LABS: INR 2.4; Prothrombin Time 27.6 Seconds (11.1-14.7)
== END 2024-04-05 23:59 | disposition home or self-care (01) ==
LOC: ANHLAB 09:54
PROVIDERS: PCP Physician Assistant; Visit Provider Physician Assistant
DX: I82.409 Acute embolism and thrombosis of unspecified deep veins of unspecified lower extremity (principal)
CPT/HCPCS: 36415; 85610

== ENCOUNTER 2024-05-27 10:44 | Outpatient (CLI) | payer MEDICARE, SELFPAY ==
--- NOTE | ~2024-05-27 | XR_ITS ---
Clinical Indication: Cough PA and lateral views of the chest: Comparison: 08/27/2023 Findings: The lungs are clear, without evidence of focal consolidation or pleural effusion. Probable COPD. Cardiomediastinal silhouette is within normal limits. Bones and soft tissues are unremarkable. Impression: Clear lungs. Probable COPD. Reviewed, dictated and finalized at location . Impression: Clear lungs. Probable COPD.
== END 2024-05-27 10:45 | disposition home or self-care (01) ==
LOC: ANHIMG 10:47
PROVIDERS: PCP Internal Medicine; Visit Provider Internal Medicine
DX: R05.9 Cough, unspecified (principal)
CPT/HCPCS: 71046

== ENCOUNTER 2024-06-30 11:44 | Outpatient (RCR) | payer MEDICARE, SELFPAY ==
[2024-04-28 09:29] LABS: INR 2.5; Prothrombin Time 27.4 Seconds (11.1-14.7)
[2024-05-26 12:21] LABS: Prothrombin Time 32.1 Seconds (11.1-14.7)
[2024-06-09 10:35] LABS: Prothrombin Time 23.2 Seconds (11.1-14.7)
[2024-06-30 12:23] LABS: INR 2.1; Prothrombin Time 24.5 Seconds (11.1-14.7)
== END 2024-07-27 23:59 | disposition home or self-care (01) ==
LOC: ANHLAB 11:44
PROVIDERS: PCP Internal Medicine; Visit Provider Internal Medicine
DX: I82.409 Acute embolism and thrombosis of unspecified deep veins of unspecified lower extremity (principal)
CPT/HCPCS: 36415; 85610

== ENCOUNTER 2024-07-20 09:41 | Outpatient (CLI) | payer MEDICARE, SELFPAY ==
--- NOTE | ~2024-07-20 | MM_ITS ---
EXAMINATION: MM screening mable BI w abraham HISTORY: Screening mammogram TECHNIQUE: Craniocaudal and mediolateral oblique 3-D tomosynthesis images were obtained and synthetic 2-D images were generated. CAD analysis was submitted and interpreted. COMPARISON: 07/18/2023, 07/02/2022, 06/29/2021, 06/28/2020 BREAST PARENCHYMAL COMPOSITION:Dense: The breasts are heterogeneously dense, which may obscure small masses. FINDINGS: No suspicious mass, calcification, or architectural distortion are identified in either jessie ast to suggest malignancy. There has been no suspicious interval change. IMPRESSION: No mammographic evidence of malignancy. Recommend routine screening mammography in one year. BI-RADS Category 1: Negative Reviewed, dictated and finalized at location .
== END 2024-07-20 09:42 | disposition home or self-care (01) ==
LOC: ANHIMG 09:43
PROVIDERS: PCP Internal Medicine; Visit Provider Internal Medicine Hematology & Oncology
DX: Z12.31 Encounter for screening mammogram for malignant neoplasm of breast (principal)
CPT/HCPCS: 36415; 77063; 77067; 80053; 85025; 86300

== ENCOUNTER 2024-09-28 07:54 | Outpatient (CLI) | payer MEDICARE, SELFPAY | END 2024-09-28 07:55 | disposition home or self-care (01) | LOC: ANHAUDASC 07:55 | PROVIDERS: PCP Internal Medicine; Visit Provider Internal Medicine | DX: H90.3 Sensorineural hearing loss, bilateral (principal); H93.13 Tinnitus, bilateral; H61.23 Impacted cerumen, bilateral | CPT/HCPCS: 92557; 92567 ==

== ENCOUNTER 2024-10-13 13:34 | Outpatient (CLI) | payer MEDICARE, SELFPAY ==
--- NOTE | ~2024-10-13 | CT_ITS ---
EXAMINATION: CT sinus wo con DATE: 10/13/2024 13:47 INDICATION: Chronic sinusitis. TECHNIQUE: Computed tomography (CT) of the paranasal sinuses was performed without intravenous contra st. Iterative reconstruction technique was employed. The dose-length product was 281.78 mGy-cm. COMPARISON: None FINDINGS: There is mild mucosal thickening in the frontal recesses and ethmoid sinuses. The sphenoid sinuses are clear. There is mild mucosal thickening in the maxillary sinuses. There is leftward devia tion of the nasal septum with a left lateral spur. There is isai bullosa involving the bilateral mi ddle turbinates. The ostiomeatal units are patent. IMPRESSION: 1. Mild mucosal thickening in the paranasal sinuses. 2. Leftward deviation of the nasal septum. Reviewed, dictated and finalized at location A. NT MANAGER
== END 2024-10-13 13:35 | disposition home or self-care (01) ==
LOC: MICIMG 13:34
PROVIDERS: PCP Internal Medicine; Visit Provider Allergy & Immunology
DX: J32.9 Chronic sinusitis, unspecified (principal); J34.2 Deviated nasal septum
CPT/HCPCS: 70486

== ENCOUNTER 2024-10-27 09:32 | Outpatient (RCR) | payer MEDICARE, SELFPAY ==
[2024-08-04 10:18] LABS: INR 2.3; Prothrombin Time 25.8 Seconds (11.1-14.7)
[2024-09-02 10:16] LABS: INR 2.1; Prothrombin Time 24.1 Seconds (11.1-14.7)
[2024-09-28 10:08] LABS: INR 2.2; Prothrombin Time 25.1 Seconds (11.1-14.7)
[2024-10-27 10:16] LABS: INR 2.5; Prothrombin Time 27.3 Seconds (11.1-14.7)
== END 2024-11-02 23:59 | disposition home or self-care (01) ==
LOC: ANHLAB 09:32
PROVIDERS: PCP Internal Medicine; Visit Provider Internal Medicine
DX: I82.409 Acute embolism and thrombosis of unspecified deep veins of unspecified lower extremity (principal)
CPT/HCPCS: 36415; 85610

== ENCOUNTER 2024-11-02 08:30 | Outpatient (CLI) | payer MEDICARE, SELFPAY ==
[2024-11-02 09:13] LABS: Alanine Aminotransferase 19 U/L (6-35); Albumin Level 3.8 g/dL (3.5-5.1); Alkaline Phosphatase 91 U/L (38-126); Anion Gap 2 mmol/L (4-12); Aspartate Amino Transferase 29 U/L (14-36); Bilirubin,Total 0.4 mg/dL (0.2-1.3); Blood Urea Nitrogen 19 mg/dL (7-17); Calcium 8.9 mg/dL (8.4-10.2); Carbon Dioxide 31 mmol/L (22-30); Chloride 106 mmol/L (98-107); Cholesterol 205 mg/dL (0-200); Estimated Glomerular Filt Rate > 60; Glucose 110 mg/dL (65-110); HDL Direct 54 mg/dL; Potassium 3.9 mmol/L (3.4-5.0); Sodium 139 mmol/L (137-145); Triglycerides 140 mg/dL (<150)
[2024-11-02 09:16] LABS: Prothrombin Time 22.7 Seconds (11.1-14.7)
[2024-11-02 09:24] LABS: LDL Cholesterol Direct 95 mg/dL
[2024-11-02 09:43] LABS: Vitamin D 25 Hydroxy 61.9 ng/mL
--- OUTSIDE RECORDS SUMMARY | 2024-11-09 18:26 | XMS_ITS | Encounter Summary ---
Author Organization [facility] Address [address] [place] [address]. [place], [place] [id number] [place] [id number] Care Team Providers Care Doping Supervisor Name Role Phone Unavailable Primary Care Provider Unavailabl e Encounter Details Date Type Department Care Team (Late st Contact Info) Description 08/06/2008 Abstract [facility] CONVERSION [address] [place] [address] Orestes Flores MD Social History Tobacco Use Types Packs/Day Years Used Date Smoking Tobacco: Never Assessed Comments Unknown Sex and Gender Information Value Date Recorded Sex Assigned at Not on file Legal Sex Female 11:00 AM CDT Gender Identity Not on file Sexual Orientation Not on file documented as of this encounter Plan of Treatment Not on file documented as of this encounter Visit Diagnoses Not on filedocumented in this encounter
--- OUTSIDE RECORDS SUMMARY | 2024-11-09 18:26 | XMS_ITS | Patient Health Summary ---
Author Organization [facility] Address [address] [place] [address] Care Team Providers Care Instruments Sales Representative Name Role Phone Chris Avalos PA-C Primary Care Provide r Note from [facility],non-owned Affiliates and Associated Physician Practices is amultiple site organization consisting of ambulatory clinics and hospital sitesin [place], [place], [place] and [place]. This disclosure is being madepursuant to the Care Everywhere program and may not contain all information available regarding this patient. Last updated 18.[facility] Allergies No known active allergies Medications * Be aware that medications may not be up to date on this document. Alwaysverify current medications with the patient. * warfarin (COUMADIN) 2 MG tablet(Started 02/20/2022) Take 5 mg by mouth once daily * rOPINIRole (REQUIP) 0.25 MG tablet(Started 02/07/2022) Take 0.25 mg by mouth at bedtime * pancrelipase (CREON 12,000) 25416-94338 units capsule * levothyroxine (SYNTHROID) 100 MCG tablet(Started 03/26/2022) Take 100 mcg by mouth at bedtime * letrozole (FEMARA) 2.5 MG tablet(Started 04/13/2022) Take 2.5 mg by mouth once daily * albuterol-ipratropium (DUO-NEB) 0.5-2.5 (3) MG/3ML nebulizer solution(Started 11/17/2020) USE 1 VIAL PER NEBULIZER 4 TIMES A DAY FOR 15 DAYS * gabapentin (NEURONTIN) 800 MG tablet(Started 02/11/2022) Take 800 mg by mouth 2 times daily * furosemide (LASIX) 40 MG tablet(Started 03/15/2022) Take 40 mg by mouth once daily * ADVAIR HFA 230-21 MCG/ACT(Started 03/14/2022) Inhale 1 puff by mouth 2 times daily * cyanocobalamin 250 MCG tablet Take 250 mcg by mouth once daily * Cholecalciferol 125 MCG (5000 UT) Take 5,000 Units by mouth once daily * Ascorbic Acid 1000 MG Take 1,000 mg by mouth once daily * albuterol HFA (PROVENTIL; VENTOLIN; PROAIR) 108 (90 Base) MCG/ACT inhaler (Started 04/14/2021) INHALE 2 PUFFS BY MOUTH EVERY 4 TO 6 HOURS NEEDED FOR SHORTNESS OF BREATH OR WHEEZING * acetaminophen (TYLENOL) 325 MG tablet Take 325 mg by mouth every 6 hours as needed * dicyclomine (BENTYL) 20 MG tablet Take 20 mg by mouth 3 times daily * montelukast (SINGULAIR) 10 MG tablet(Started 02/21/2022) Take 10 mg by mouth once daily * HYDROcodone-acetaminophen (NORCO) 5-325 MG tablet(Started 04/30/2022) Take 1 (one) tablet by mouth every 6 hours as needed Active Problems Problem Noted Date Diagnosed Date Closed fracture of right wrist, initial encounte r 04/30/2022 Post-op pain Immunizations * TDAP (7yrs+)(Given 04/09/2022) Social History Tobacco Use Types Packs/Day Years Used Date Smoking Tobacco: Never Smokeless Tobacco: Never Alcohol Use Standard Drinks/Week Comments Yes 0 (1 standard drink = 0.6 oz pur e alcohol) social AUDIT-C Answer Date Recorded Q1: How often do you have a drink containing alc ohol? Monthly or less 04/30/2022 Q2: How many drinks containi ng alcohol do you have on a typical day when you are drinking? 1 or 2 04/30/2022 Q3: How often do you have si x or more drinks on one occasion? Less than monthly 04/30/2022 Sex and Gender Information Value Date Recorded Sex Assigned at Not on file Gender Identity Not on file Sexual Orientation Not on file Last Filed Vital Signs Vital Sign Reading Time Taken Comments Blood Pressure 136/93 04/30/2022 4:30 PM CDT Pulse 83 04/30/2022 4:30 PM CDT Temperature 36.6 ??C (97.9 ??F) 04/30/2022 4:00 PM CD T Respiratory Rate 15 04/30/2022 4:30 PM CDT Oxygen Saturation 94% 04/30/2022 4:30 PM CDT Inhaled Oxygen Concentration - - Weight 87.5 kg (193 lb) 07/04/2022 9:36 AM CDT Height 175.3 cm (5' 9 ) 06/06/2022 9:06 AM CDT Body Mass Index 28.5 06/06/2022 9:06 AM CDT Medical Devices Implanted Type Area Photography Assistant Device Identifier Shelf Expiration Date Model / Serial / Lot Screw Implanted:Qty: 1 on 04/30/2022 by Michel Mendieta MD at [facility] Right: Wrist [employer] [id number] / / Screw 2.7mm 20mm Mldir Nonster Bone Implanted:Qty: 1 on 04/30/2022 by Michel Mendieta MD at [facility] Right: Wrist [employer] [id number] / / Plate Implanted:Qty: 1 on 04/30/2022 by Michel Mendieta MD at [facility] Right: Wrist [employer] [id number] / / Screw 2.7mm 14mm Lopro Nonster Bone Lf Implanted:Qty: 2 on 04/30/2022 by Michel Mendieta MD at [facility] Right: Wrist [employer] [id number] / / Screw Implanted:Qty: 1 on 04/30/2022 by Michel Mendieta MD at [facility] Right: Wrist [employer] [id number] / / Screw 2.7mm 20mm Crsslck Tpr Head 3 Ld Implanted:Qty: 3 on 04/30/2022 by Michel Mendieta MD at [facility] Right: Wrist [employer] [id number] / / Screw 2.7mm 22mm Lck Jesse Nonster Bone Implanted:Qty: 2 on 04/30/2022 by Michel Mendieta MD at [facility] Right: Wrist [employer] [id number] / / Explanted Type Area Photography Assistant Device Identifier Shelf Expiration Date Model / Serial / Lot Wire K .062in 6in Fx 2 Troc Explanted:Qty: 2 on 04/30/2022 by Michel Mendieta MD at [facility] Right: Wrist [employer] [id number] / / Wire K 1.6mm Ss Fx Nonster Explanted:Qty: 3 on 04/30/2022 by Michel Mendieta MD at [facility] Right: Wrist [employer] [id number] / / Screw 2.7mm 20mm Crsslck Lopro Nonlock Explanted:Qty: 1 on 04/30/2022 by Michel Mendieta MD at [facility] Right: Wrist [employer] [id number] / / Screw 2.7mm 20mm Crsslck Lopro Nonlock Explanted:Qty: 1 on 04/30/2022 by Michel Mendieta MD at [facility] Right: Wrist [employer] [id number] / / Procedures * XR WRIST RIGHT 3VW OR MORE(Performed 07/04/2022) Performed for Other closed intra-articular fracture of distal end of right radius with routine healing, subsequent encounter * XR WRIST RIGHT 3VW OR MORE(Performed 06/06/2022) Performed for Other closed intra-articular fracture of distal end of right radius with routine healing, subsequent encounter * XR WRIST RIGHT 3VW OR MORE(Performed 05/09/2022) Performed for Other closed intra-articular fracture of distal end of right radius, initial encounter * XR WRIST RIGHT 2VW(Performed 04/30/2022) Performed for Closed fracture of right wrist, initial encounter * PERIPHERAL BLOCK(Performed 04/30/2022) * FL TACOS SURGERY(Performed 04/30/2022) Performed for Closed fracture of right wrist, initial encounter * OPEN REDUCTION INTERNAL FIXATION (ORIF) WRIST/DISTAL RADIUS(Performed 04/30/2022) Performed for Closed punch fracture distal radius, right, initial encounter * ENDOTRACHEAL TUBE NOTE(Performed 04/30/2022) * BLOOD TYPE VERIFICATION(Performed 04/30/2022) * TYPE + SCREEN PANEL(Performed 04/30/2022) Performed for Preoperative examination * PT-INR [facility](Performed 04/30/2022) Performed for Preoperative examination * XR WRIST RIGHT 3VW OR MORE(Performed 04/25/2022) Performed for Closed fracture of right wrist, initial encounter * XR WRIST RIGHT 3VW OR MORE(Performed 04/25/2022) Performed for Closed fracture of right wrist, initial encounter * XR WRIST RIGHT 2VW(Performed 04/09/2022) Performed for Right wrist pain * XR WRIST RIGHT 3VW OR MORE(Performed 04/09/2022) Performed for Right wrist pain * XR FOREARM RIGHT 2VW OR MORE(Performed 04/09/2022) Performed for Right wrist pain * XR ELBOW RIGHT 3VW OR MORE(Performed 04/09/2022) Performed for Right wrist pain * PT-INR [facility](Performed 04/09/2022) * CBC W AUTO DIFFERENTIAL(Performed 04/09/2022) * MRI BREAST BILAT WWO CONTRAST(Performed 07/04/2016) * CREATININE BLOOD - POCT (IP) [facility](Performed 07/04/2016) Results * XR WRIST RIGHT 3VW OR MORE (07/04/2022 9:33 AM CDT) Only the most recent of6 resultswithin the time period is included. Anatomical Region Laterality Modality Wrist / Hand Radiographic Kymberly ging 07/04/2022 9:44 AM CDT Impressions 07/04/2022 10:06 AM CDT IMPRESSION: 1.Internally fixated distal radial fracture, unchanged in alignment. 2.Ulnar styloid fracture, unchanged in alignment. Report dictated by Dawn Woodward MD (residential direct support professional). I, Lorne Ann MD have personally reviewed and interpreted this examination/study. > Interpreting Provider: Lorne Ann MD on 07/04/2022 10:06 AM Narrative 07/04/2022 10:06 AM CDT PROCEDURE: ??XR WRIST RIGHT 3VW OR MORE, DATE/TIME OF EXAM: ??07/04/2022 9:33 AM, LOCATION ??[facility] INDICATION: S52.571D: Other closed intra-articular fracture of distal end of right radius with routine healing, subsequent encounter ADDITIONAL CLINICAL INFORMATION: Ordering Provider Reason For Exam: ??fracture COMPARISON: Right wrist radiograph dated 06/06/2022.. FINDINGS: There is redemonstration of a comminuted distal radial fracture status post internal fixation with a plate and screws. Hardware appears intact. Osseous alignment is unchanged. There is redemonstration of an ulnar styloid fracture, unchanged in alignment. Procedure Note Lorne Ann MD - 07/04/2022 PROCEDURE: XR WRIST RIGHT 3VW OR MORE, DATE/TIME OF EXAM: 29:33 AM, LOCATION [facility] INDICATION: S52.571D: Other closed intra-articular fracture of distal end of right radius with routine healing, subsequent encounter ADDITIONAL CLINICAL INFORMATION: Ordering Provider Reason For Exam: fracture COMPARISON: Right wrist radiograph dated 06/06/2022.. FINDINGS: There is redemonstration of a comminuted distal radial fracture statuspost internal fixation with a plate and screws. Hardware appears intact.Osseous alignment is unchanged. There is redemonstration of an ulnar styloid fracture, unchanged in alignment. IMPRESSION: 1.Internally fixated distal radial fracture, unchanged in alignment. 2.Ulnar styloid fracture, unchanged in alignment. Report dictated by Dawn Woodward MD (residential direct support professional). I, Lorne Ann MD have personally reviewed and interpreted this examination/study. > Interpreting Provider: Lorne Ann MD on 07/04/2022 10:06 AM Michel Mendieta MD DIAGNOSTIC IMAGING O RDERABLES * XR WRIST RIGHT 2VW (04/30/2022 3:50 PM CDT) Only the most recent of2 resultswithin the time period is included. Anatomical Region Laterality Modality Wrist / Hand Radiographic Kymberly ging 04/30/2022 4:24 PM CDT Impressions 05/02/2022 5:30 PM CDT IMPRESSION: Interval open reduction internal fixation of the comminuted intra-articular distal radial fracture with a plate and screws. Report drafted by Jose Angel Pruitt M.D. (resident) I, Dr. VANESSA STOLAR, M.D. have personally reviewed and interpreted this examination/study. This report was electronically signed by VANESSA RUSSELL M.D. ??on 05/02/2022 5:30 PM . Narrative 05/02/2022 5:30 PM CDT EXAMINATION: XR WRIST RIGHT 2VW HISTORY: S62.101A: Closed fracture of right wrist, initial encounter COMPARISON: 04/25/2022 FINDINGS: Patient has a splint in place which obscures bony and soft tissue details. There is interval reduction and internal fixation of the comminuted intra-articular distal radial fracture with a plate and screws. The alignment has improved. An ulnar styloid fracture is redemonstrated. Procedure Note Vanessa Russell MD - 05/02/2022 EXAMINATION: XR WRIST RIGHT 2VW HISTORY: S62.101A: Closed fracture of right wrist, initial encounter COMPARISON: 04/25/2022 FINDINGS: Patient has a splint in place which obscures bony and soft tissuedetails. There is interval reduction and internal fixation of the comminuted intra-articular distal radial fracture with a plate and screws. The alignment has improved. An ulnar styloid fracture is redemonstrated. IMPRESSION: Interval open reduction internal fixation of the comminuted intra-articular distal radial fracture with a plate and screws. Report drafted by Jose Angel Pruitt M.D. (resident) I, Dr. VANESSA RUSSELL M.D. have personally reviewed and interpreted this examination/study. This report was electronically signed by VANESSA RUSSELL M.D. on 05/02/2022 5:30 PM . Michel Mendieta MD DIAGNOSTIC IMAGING O RDERABLES * Peripheral Nerve Block (04/30/2022 3:13 PM CDT) Narrative Abdoul Calvo MD - 04/30/2022 3:13 PM CDT Abdoul Calvo MD ? 04/30/2022 ??3:17 PM Peripheral ??Nerve Block ?? Procedure: Peripheral Nerve Block Patient Location: ??PACU Preprocedure Section: ?? Indications: at surgeon's request, at patient's request, procedure for pain and postop pain management. Pre-anesthetic Checklist: Patient identified, IV Checked, Site examined and clear, Risks and benefits discussed, Surgical consent verified, Monitors and equipment, Time-out performed, Informed consent obtained, Pre-op evaluation done, Questions answered/anesthesia questions answered, Allergies reviewed and Removal hand/wrist jewelry Monitors: BP, Pulse Ox, EKG and ETCO2. Patient Condition: ??awake Patient Position: supine Patient Sedated? ??No Procedure Section ?? Laterality: right Block Performed: ??infraclavicular Prep: ??Chloraprep Strerile Field: gloves, mask, hat/cap, patient draped and sterile ultrasound sleeve Needle Type: ??nerve stimulator, Echogenic insultaed and short-bevel Needle Gauge: ??20 Needle Length: ??80 mm Catheter?No Ultrasound Guided? ?? Yes ? Technique: ??in plane ? Visualization: ??Preliminary scan performed, Important anatomical structures identified, Needle tip visualized throughout the procedure, Target identified, No intraneural or intravascular puncture occurred, Ultrasound image in chart, Local visualized surrounding nerve on ultrasound and Hydrodissection utilized Injection was made incrementally with constant monitoring and aspirations every 5 mL's Injection Assessment: ?? Manometer used/Injection pressure < 15psi Slow fractionated injection Block Agents or Additives used? Yes Block agents used: ropivacaine (NAROPIN) 2 MG/ML (0.2%) injection - Infiltration 20 mL - 04/30/2022 3:10:00 PM dexamethasone (DECADRON) 4 mg/mL injection - Infiltration 4 mg - 04/30/2022 3:10:00 PM Procedure Tolerance: tolerated well Assessment: completed Procedure Start Time: 04/30/2022 3:00 PM. Procedure End Time: 04/30/2022 3:10 PM. Procedure Total Time: 10 ??minutes. Staff Section ? Anesthesia Provider: Abdoul Calvo MD ? Provider #1: Joey Mulligan DO, Performed the procedure. Additional Comments: I was present the entire time and supervised the nerve block. ??Ultrasound guidance used. ??For post op pain management. Supraclavicular block aborted due to a branching artery detected from AA coursing through brachial plexus, switched to infraclavicular block due to concern of intravascular injection.. Michel Barbour II, MD GENERAL ANESTHESIA ORDERABLES * FL TACOS SURGERY (04/30/2022 2:00 PM CDT) Narrative [facility] - 04/30/2022 2:00 PM CDT Fluoroscopy was used for this exam in the OR. Please see the Operative report. Michel Mendieta MD FLUOROSCOPY ORDERABL ES [facility] * ETT LINE PERFORMABLE (04/30/2022 12:02 PM CDT) Narrative Janet Beebe Anes Assallison - 04/30/2022 12:02 PM CDT Janet Beebe Anes Asst ? 04/30/2022 12:03 PM Endotracheal Tube Placement: ? Patient Location: OR. Intubation Event Date/Time: ??04/30/2022 11:47 AM Procedure: intubation (80900). Procedure Section: ?? Induction: standard IV Patient Position: ??sniffing and supine Mask Ventilation: easy. Blade Type: Batsheva Blade Size: 3 Laryngoscopy View: grade 1 (full cords) Tube: endotracheal tube Placement: oral Tube type: cuff - inflated Tube Size (MM): 7 Depth of Insertion (CM): 21 Measured From: lips Cuff Inflated With: air Number of Attempts: 1. Placement Verified By: direct visualization, bilateral breath sounds, chest auscultation and CO2 monitor Tube secured with: ??adhesive tape. Dentition unchanged? ??Yes Difficult Airway? ??No. Procedure Start Time: 04/30/2022 11:47 AM. Staff Section ? Anesthesia Provider: Wero Ayala, DO, Performed the procedure ? Provider #1: Michel Barbour II, MD. ? Provider #2: Janet Beebe Anes Asst. Michel Barbour II, MD GENERAL ANESTHESIA ORDERABLES * BLOOD TYPE VERIFICATION (04/30/2022 9:54 AM CDT) ABO Rh A POS 04/30/2022 10:25 AM CDT [facility] Blood Bank BLOOD SPECIMEN / Unknown Lab Venipuncture / Unknown 04/30/2022 9:54 AM CDT 04/30/2022 9:57 AM CDT Michel Mendieta MD LAB - BLOOD BANK ORD ERABLES Performing Organization Address City/[facility]/ZIP Co de Phone Number [facility] [address] [place] [address], [facility] [phone] * (ABNORMAL) PT-INR [facility] (04/30/2022 9:31 AM CDT) Only the most recent of2 resultswithin the time period is included. PT 20.6(H) 12.1 - 14.8 Seconds 04/30/2022 10:01 AM CDT [facility] INR 1.8 See Comment 04/30/2022 10:01 AM CDT [facility] Comment:The suggested therap eutic range for standard coumadin (warfarin) therapy is an INR of 2.0-3.0. For high-risk patients (Mechanical Mitral Valve Prosthesis, etc.), the suggested prophylactic therapeutic range is an INR of 2.5-3.5. Blood BLOOD SPECIMEN / Unknown Venipuncture / Unknown 04/30/2022 9:31 AM CDT 04/30/2022 9:35 AM CDT Michel Mendieta MD LAB - COAGULATION OR DERABLES Performing Organization Address [facility] Co de Phone Number [facility] [address] [place] [address], [facility] [phone] * TYPE + SCREEN PANEL (04/30/2022 9:31 AM CDT) Antibody Screen NEG 10:21 AM CDT [facility] ABO Rh A POS 04/30/2022 10:21 AM CDT [facility] Blood Bank BLOOD SPECIMEN / Unknown Venipuncture / Unknown 04/30/2022 9:31 AM CDT 04/30/2022 9:36 AM CDT Michel Mendieta MD LAB - BLOOD BANK ORD ERABLES [facility] [address] [place] [address], [facility] [phone] * XR FOREARM RIGHT 2VW (04/09/2022 7:38 PM CDT) Anatomical Region Laterality Modality Upper Extremity Radiographic Kymberly ging 04/09/2022 7:41 PM CDT Impressions 04/10/2022 11:53 AM CDT IMPRESSION: 1.Moderately displaced fracture of the distal radius with dorsal displacement of the distal fragment relative to the proximal fragment. There is dorsal tilt. There is intra-articular involvement. 2.Minimally displaced ulnar styloid fracture. Dictated by Geovani Foster MD (residential direct support professional). I, Dr. HU AGUAYO M.D. have personally reviewed and interpreted this examination/study. This report was electronically signed by HU AGUAYO M.D. ??on 04/10/2022 11:53 AM . Narrative 04/10/2022 11:53 AM CDT EXAMINATION: XR ELBOW RIGHT 3VW OR MORE, XR WRIST RIGHT 3VW OR MORE, XR FOREARM RIGHT 2VW HISTORY: M25.531: Right wrist pain COMPARISON: None. FINDINGS: Patient is status post splint placement which obscures bony and soft tissue details. Right elbow: The osseous structures are intact and well aligned without acute fracture or dislocation. The joint spaces are preserved. No joint effusion is seen. Bone density and texture are normal. No soft tissue swelling is present. Right forearm: There is a moderately displaced fracture of the distal radius with dorsal displacement of the distal fragment relative to the proximal fragment. There is dorsal tilt. There is intra-articular involvement. There is a ulnar styloid fracture. Bone density and texture are normal. Soft tissue swelling is present. Right wrist: Radius and ulnar fractures as above. Degenerative changes are seen at the triscaphe joint and base of thumb. Bone density and texture are normal. Soft tissue swelling is present. Procedure Note Hu Aguayo MD - 04/10/2022 EXAMINATION: XR ELBOW RIGHT 3VW OR MORE, XR WRIST RIGHT 3VW OR MORE, XR FOREARM RIGHT 2VW HISTORY: M25.531: Right wrist pain COMPARISON: None. FINDINGS: Patient is status post splint placement which obscures bony and soft tissue details. Right elbow: The osseous structures are intact and well aligned without acutefracture or dislocation. The joint spaces are preserved. No joint effusion isseen. Bone density and texture are normal. No soft tissue swelling is present. Right forearm: There is a moderately displaced fracture of the distal radius withdorsal displacement of the distal fragment relative to the proximal fragment. There is dorsal tilt. There is intra-articular involvement. There is a ulnar styloid fracture. Bone density and texture are normal. Soft tissue swelling is present. Right wrist: Radius and ulnar fractures as above. Degenerative changes are seen atthe triscaphe joint and base of thumb. Bone density and texture are normal. Soft tissue swelling is present. IMPRESSION: 1.Moderately displaced fracture of the distal radius with dorsal displacement of the distal fragment relative to the proximal fragment. There is dorsal tilt. There is intra-articular involvement. 2.Minimally displaced ulnar styloid fracture. Dictated by Geovani Foster MD (residential direct support professional). Dr. HU Mittal M.D. have personally reviewed andinterpreted this examination/study. This report was electronically signed by HU AGUAYO M.D. on 04/10/2022 11:53 AM . Luana Skinner PA-C DIAGNOSTIC IMAGING O RDERABLES * XR ELBOW RIGHT 3VW OR MORE (04/09/2022 7:38 PM CDT) Anatomical Region Laterality Modality Upper Extremity Radiographic Kymberly ging 04/09/2022 7:41 PM CDT Impressions 04/10/2022 11:53 AM CDT IMPRESSION: 1.Moderately displaced fracture of the distal radius with dorsal displacement of the distal fragment relative to the proximal fragment. There is dorsal tilt. There is intra-articular involvement. 2.Minimally displaced ulnar styloid fracture. Dictated by Geovani Foster MD (residential direct support professional). Dr. HU Mittal M.D. have personally reviewed and interpreted this examination/study. This report was electronically signed by HU AGUAYO M.D. ??on 04/10/2022 11:53 AM . Narrative 04/10/2022 11:53 AM CDT EXAMINATION: XR ELBOW RIGHT 3VW OR MORE, XR WRIST RIGHT 3VW OR MORE, XR FOREARM RIGHT 2VW HISTORY: M25.531: Right wrist pain COMPARISON: None. FINDINGS: Patient is status post splint placement which obscures bony and soft tissue details. Right elbow: The osseous structures are intact and well aligned without acute fracture or dislocation. The joint spaces are preserved. No joint effusion is seen. Bone density and texture are normal. No soft tissue swelling is present. Right forearm: There is a moderately displaced fracture of the distal radius with dorsal displacement of the distal fragment relative to the proximal fragment. There is dorsal tilt. There is intra-articular involvement. There is a ulnar styloid fracture. Bone density and texture are normal. Soft tissue swelling is present. Right wrist: Radius and ulnar fractures as above. Degenerative changes are seen at the triscaphe joint and base of thumb. Bone density and texture are normal. Soft tissue swelling is present. Procedure Note Hu Aguayo MD - 04/10/2022 EXAMINATION: XR ELBOW RIGHT 3VW OR MORE, XR WRIST RIGHT 3VW OR MORE, XR FOREARM RIGHT 2VW HISTORY: M25.531: Right wrist pain COMPARISON: None. FINDINGS: Patient is status post splint placement which obscures bony and soft tissue details. Right elbow: The osseous structures are intact and well aligned without acutefracture or dislocation. The joint spaces are preserved. No joint effusion isseen. Bone density and texture are normal. No soft tissue swelling is present. Right forearm: There is a moderately displaced fracture of the distal radius withdorsal displacement of the distal fragment relative to the proximal fragment. There is dorsal tilt. There is intra-articular involvement. There is a ulnar styloid fracture. Bone density and texture are normal. Soft tissue swelling is present. Right wrist: Radius and ulnar fractures as above. Degenerative changes are seen atthe triscaphe joint and base of thumb. Bone density and texture are normal. Soft tissue swelling is present. IMPRESSION: 1.Moderately displaced fracture of the distal radius with dorsal displacement of the distal fragment relative to the proximal fragment. There is dorsal tilt. There is intra-articular involvement. 2.Minimally displaced ulnar styloid fracture. Dictated by Geovani Fsoter MD (residential direct support professional). I, Dr. HU AGUAYO M.D. have personally reviewed andinterpreted this examination/study. This report was electronically signed by HU AGUAYO M.D. on 04/10/2022 11:53 AM . Luana Skinner PAJd DIAGNOSTIC IMAGING O RDERABLES * (ABNORMAL) CBC W AUTO DIFFERENTIAL (04/09/2022 6:32 PM CDT) WBC 13.2(H) 3.5 - 10.5 10? 3 /uL 04/09/2022 6:43 PM [facility] RBC 4.03 3.80 - 5.20 10? 6 /uL 04/09/2022 6:43 PM [facility] Hemoglobin 12.9 12.0 - 15.6 g/dL 04/09/2022 6:43 PM [facility] Hematocrit 38.4 35.0 - 45.0 % 04/09/2022 6:43 PM [facility] MCV 95.3 80.7 - 98.3 fL 04/09/2022 6:43 PM [facility] MCH 32.0 26.7 - 34.0 pg 04/09/2022 6:43 PM [facility] MCHC 33.6 30.8 - 35.9 g/dL 04/09/2022 6:43 PM [facility] Platelet Count 227 150 - 400 10? 3 /uL 04/09/2022 6:43 PM [facility] RDW-SD 49.8 36.0 - 50.0 fL 04/09/2022 6:43 PM [facility] RDW-CV 14.1 11.2 - 14.8 % 04/09/2022 6:43 PM [facility] MPV 10.4 9.4 - 12.9 fL 04/09/2022 6:43 PM [facility] nRBC Absolute 0.00 0 10? 3 /uL 04/09/2022 6:43 PM [facility] nRBC Auto 0.0 0 /100 WBC 04/09/2022 6:43 PM [facility] Neutrophils % 87.6(H) 35.0 - 70.0 % 04/09/2022 6:43 PM [facility] Lymphocytes % 6.3(L) 20.0 - 43.0 % 04/09/2022 6:43 PM [facility] Monocytes % 5.1 5.0 - 13.0 % 04/09/2022 6:43 PM [facility] Eosinophils % 0.2 0.0 - 6.0 % 04/09/2022 6:43 PM [facility] Basophil % 0.3 0.0 - 2.0 % 04/09/2022 6:43 PM [facility] Neutrophils Absolute 11.6(H) 1.6 - 7.0 10? 3 /uL 04/09/2022 6:43 PM [facility] Lymphocyte Absolute 0.8(L) 1.1 - 3.9 10? 3 /uL 04/09/2022 6:43 PM [facility] Monocytes Absolute 0.67 0.26 - 1.07 10? 3 /uL 04/09/2022 6:43 PM [facility] Eosinophils Absolute 0.02 0.00 - 0.47 10? 3 /uL 04/09/2022 6:43 PM [facility] Basophils Absolute 0.04 0.00 - 0.08 10? 3 /uL 04/09/2022 6:43 PM [facility] Immature Granulocytes % 0.5 0.0 - 1.0 % 04/09/2022 6:43 PM [facility] Immature Granulocytes Absolute 0.07 04/09/2022 6:43 PM [facility] Blood BLOOD SPECIMEN / Unknown Venipuncture / Unknown 04/09/2022 6:32 PM CDT 04/09/2022 6:39 PM T Erica Ng SHIRT PRESSER-SEMICONDUCTOR PROCESSOR LAB - HEMATO LOGY ORDERABLES [facility] [address] [place] [address] [phone] * MRI BREAST BILAT WWO CONTRAST (07/04/2016 11:07 AM CDT) Anatomical Region Laterality Modality Breast Bilateral Other Impressions 07/04/2016 12:33 PM CDT IMPRESSION: 1. Large region of non-mass enhancement within the central right breast extending to the nipple-areolar complex and near the chest wall, as detailed above, which likely represents the extent of the biopsy proven malignancy. Enhancement is noted within the nipple and skin of the lateral right breast. 2. While there appears to be a fat plane between the enhancement and the pectoralis muscle, there is STIR hyperintensity, T1 hypointensity, and enhancement of a RIGHT rib anteriorly (image 18, series 2) which may represent intense marrow edema, or conceivably marrow replacement from a metastasis. 3. No evidence of malignancy in the left breast. ASSESSMENT: BI-RADS category 6: Known malignancy, appropriate action is being taken. RECOMMENDATION: Clinical management per the patient's breast surgeon. I, Dr. BERYL TUCKER M.D. have personally reviewed and interpreted this examination/study. This report was electronically signed by BERYL TUCKER M.D. ??on 07/04/2016 12:33 PM . Narrative 07/04/2016 12:33 PM CDT BILATERAL BREAST MRI HISTORY: ??66-year-old with history of right-sided breast cancer status post breast conservation therapy in 1994, who presented with new nipple inversion developing firmness of the right breast in May of this year, status post biopsy reported as invasive mammary carcinoma. COMPARISON: Comparison was made to multiple prior outside mammograms including 05/29/2016, 11/08/2014, and 11/06/2013 performed at [facility]. TECHNIQUE: Multiplanar multisequence MR imaging of both breasts before and following the administration of intravenous gadolinium contrast. Dynamic phase imaging was performed in the axial plane. Exam was processed by and interpreted on a [employer] bartender server including 3-D volume rendering, subtraction image processing and contrast kinetic analysis. FINDINGS: Background tissue pattern: There is heterogeneous fibroglandular tissue. Degree of background parenchymal enhancement: mild. RIGHT BREAST: The right breast is significantly smaller than the left, which may be in part due to posttreatment changes. Multiple surgical clips are seen within the upper breast at posterior depth. There is a large region of non-mass enhancement within the central breast predominantly at mid depth, measuring up to 5.6 x 5.1 cm in axial dimension (image 67, series 6). The majority of this demonstrates plateau kinetics and this appears to involve all of the visible breast tissue seen on mammography. This extends anteriorly to the nipple where there is also periareolar skin thickening most pronounced laterally. Mild skin enhancement is seen throughout the lateral breast which may represent direct invasion. While there appears to be a fat plane between the enhancement and the pectoralis muscle, there is associated STIR hyperintensity, T1 hypointensity, and enhancement of a rib anteriorly (image 18, series 2) which may represent intense marrow edema, or conceivably marrow replacement from a metastasis. There is no abnormality of the right axilla, although no lymph nodes are seen, likely due to prior surgery. No enlarged internal mammary lymph nodes are seen. LEFT BREAST: Numerous cysts are present within the left breast, largest measuring 2.0 x 1.5 cm in the lateral breast at mid depth which also contains a fluid level (image 20, series 2). No suspicious mass is identified. There is no abnormality of the left axilla, chest wall, or nipple areolar complex. EXTRAMAMMARY FINDINGS: The visualized abdominal and mediastinal structures are within normal limits. Procedure Note Aurora Tucker MD - 02/08/2018 BILATERAL BREAST MRI HISTORY: 66-year-old with history of right-sided breast cancer statuspost breast conservation therapy in 1994, who presented with new nippleinversion developing firmness of the right breast in May of this year,status post biopsy reported as invasive mammary carcinoma. COMPARISON: Comparison was made to multiple prior outside mammogramsincluding 05/29/2016, 11/08/2014, and 11/06/2013 performed at [facility]. TECHNIQUE: Multiplanar multisequence MR imaging of both breasts before andfollowing the administration of intravenous gadolinium contrast. Dynamicphase imaging was performed in the axial plane. Exam was processed by andinterpreted on a [employer] bartender server including 3-D volume rendering, subtraction image processing and contrastkinetic analysis. FINDINGS: Background tissue pattern: There is heterogeneous fibroglandular tissue. Degree of background parenchymal enhancement: mild. RIGHT BREAST: The right breast is significantly smaller than the left, which may be inpart due to posttreatment changes. Multiple surgical clips are seen withinthe upper breast at posterior depth. There is a large region of non-massenhancement within the central breast predominantly at mid depth, measuring up to 5.6 x 5.1 cm in axialdimension (image 67, series 6). The majority of this demonstrates plateaukinetics and this appears to involve all of the visible breast tissue seenon mammography. This extends anteriorly to the nipple where there is also periareolar skin thickeningmost pronounced laterally. Mild skin enhancement is seen throughout thelateral breast which may represent direct invasion. While there appears saud a fat plane between the enhancement and the pectoralis muscle, there is associated STIRhyperintensity, T1 hypointensity, and enhancement of a rib anteriorly(image 18, series 2) which may represent intense marrow edema, orconceivably marrow replacement from a metastasis. There is no abnormality of the right axilla, although no lymph nodes areseen, likely due to prior surgery. No enlarged internal mammary lymphnodes are seen. LEFT BREAST: Numerous cysts are present within the left breast, largest measuring 2.0 x1.5 cm in the lateral breast at mid depth which also contains a fluidlevel (image 20, series 2). No suspicious mass is identified. There is noabnormality of the left axilla, chest wall, or nipple areolar complex. EXTRAMAMMARY FINDINGS: The visualized abdominal and mediastinal structures are within normallimits. IMPRESSION IMPRESSION: 1. Large region of non-mass enhancement within the central right breastextending to the nipple-areolar complex and near the chest wall, asdetailed above, which likely represents the extent of the biopsy provenmalignancy. Enhancement is noted within the nipple and skin of the lateral right breast. 2. While there appears to be a fat plane between the enhancement and thepectoralis muscle, there is STIR hyperintensity, T1 hypointensity, andenhancement of a RIGHT rib anteriorly (image 18, series 2) which mayrepresent intense marrow edema, or conceivably marrow replacement from a metastasis. 3. No evidence of malignancy in the left breast. ASSESSMENT: BI-RADS category 6: Known malignancy, appropriate action isbeing taken. RECOMMENDATION: Clinical management per the patient's breast surgeon. I, Dr. BERYL TUCKER M.D. have personally reviewed and interpreted thisexamination/study. This report was electronically signed by BERYL TUCKER M.D. on07/04/2016 12:33 PM . Historical Provider MR ORDERABLES * CREATININE BLOOD - POCT (IP) [facility] (07/04/2016) Creatinine POCT 0.89 0.3 - 1.3 mg/dL [facility] eGFR POCT 60 60 ml/min [facility] 07/04/2016 Sebastian Nuno MD LAB - POINT OF CARE ORDERABLES [facility] Care Teams Instruments Sales Representative Relationship Specialty Start Date End Date Chris Avalos PA-C [address] [place] [address] PCP - General 04/25/22
--- OUTSIDE RECORDS SUMMARY | 2024-11-09 18:26 | XMS_ITS | Encounter Summary ---
Author Organization [facility] Address [address] [place] [address] Care Team Providers Care Mutual Fund Analyst Name Role Phone Orestes Flores MD Primary Care Provider Encounter Details Date Type Department Care Team (Latest Contact Info) Description 07/04/2016 Hospital Outpatient Visit Historic [facility] MRI [address] [place] [address] Discharge Disposition: Home or Self Care Social History Tobacco Use Types Packs/Day Years Used Date Smoking Tobacco: Never Assessed Sex and Gender Information Value Date Recorded Sex Assigned at Not on file Gender Identity Not on file Sexual Orientation Not on file documented as of this encounter Plan of Treatment Not on file documented as of this encounter Procedures Procedure Name Priority Date/Time Associated Diagnosis Comments MRI BREAST BILAT WWO CONTRAST Routine 07/04/2016 11:07 AM CDT CREATININE BLOOD - POCT (IP) [facility] Routine 07/04/2016 documented in this encounter Results * MRI BREAST BILAT WWO CONTRAST (07/04/2016 [...] including 05/29/2016, 11/08/2014, and 11/06/2013 performed at [facility]. TECHNIQUE: Multiplanar multisequence MR imaging of both breasts before and following the administration of intravenous gadolinium contrast. Dynamic phase imaging was performed in the axial plane. Exam was processed by and interpreted on a [employer] windows server architect including 3-D volume rendering, subtraction image processing [...] mammogramsincluding 05/29/2016, 11/08/2014, and 11/06/2013 performed at [facility]. TECHNIQUE: Multiplanar multisequence MR imaging of both breasts before andfollowing the administration of intravenous gadolinium contrast. Dynamicphase imaging was performed in the axial plane. Exam was processed by andinterpreted on a [employer] windows server architect including 3-D volume rendering, subtraction image processing [...] M.D. on07/04/2016 12:33 PM . Historical Provider MD GONZALEZ ORDERABLES * CREATININE BLOOD - POCT () [facility] (07/04/2016) Creatinine POCT 0.89 0.3 - 1.3 mg/dL [facility] eGFR POCT 60 60 ml/min [facility] 07/04/2016 Sebastian Nuno MD LAB - POINT OF CARE ORDERABLES [facility] documented in this encounter Visit Diagnoses Diagnosis Malignant neoplasm of female breast (HCC) documented in this encounter Care Teams Mutual [employer] Analyst Relationship Specialty Start Date End Date Orestes Flores MD [address] [address] PCP - General 08/26/12 04/24/22 documented as of this encounter
--- OUTSIDE RECORDS SUMMARY | 2024-11-09 18:26 | XMS_ITS | Encounter Summary ---
Author Organization [facility] Address [address] [place] [address]. [place] [address] [place] [address] Care Team Providers Care Online Producer Name Role Phone Unavailable Primary Care Provider Unavailabl e Encounter Details Date Type Department Care Team (Late st Contact Info) Description 08/02/2016 Abstract [facility] [address] [place] [address] Yesenia Pagan, [employer] [address] [facility] [address] [place] [address] Social History Tobacco Use Types Packs/Day Years Used Date Smoking Tobacco: Never Assessed Comments Unknown Sex and Gender Information Value Date Recorded Sex Assigned at Not on file Legal Sex Female 11:00 AM CDT Gender Identity Not on file Sexual Orientation Not on file documented as of this encounter Plan of Treatment Not on file documented as of this encounter Visit Diagnoses Diagnosis Malignant neoplasm of overlapping sites of right female breast (CMS/HCC HHS/HCC) Malignant neoplasm of other specified sites of female breast documented in this encounter
--- OUTSIDE RECORDS SUMMARY | 2024-11-09 18:26 | XMS_ITS | Encounter Summary ---
Author Organization [facility] Address [address] [place] [address] Care Team Providers Care Phlebotomist Name Role Phone Chris Avalos PA-C Primary Care Provide r Reason for Visit * Auth/Cert Specialty Diagnoses / Procedures Referred By Quinn cooper Referred To Contact Diagnoses Closed comminuted fracture of waist of scaphoid of left wrist, initial encounter Comminuited left wrist fracture Procedures OPEN REDUCTION INTERNAL FIXATION (ORIF) WRIST/DISTAL RADIUS Referral ID Status Reason Start Date Expiration Date Visits Re quested Visits Authorized [id number] 1 1 Encounter Details Date Type Department Care Team (Late st Contact Info) Description 04/30/2022 11:05 AM CDT - 04/30/2022 1:10 PM CDT Surgery [facility] GO OP [address] [place] [address] Michel Mendieta MD [facility] [place] [address] OPEN REDUCTION INTERNAL FIXATION RIGHT WRIST Surgery Details Date/Time Status Location OR Service Patient Class Case Class Case Type Trauma Case? 04/30/2022 11:05 AM Posted [facility] OR OR 06 Orthopedics Resourcing Consultant Admit Surgical Panel 1 Procedure LRB Anes Op Region Wound Class Comments OPEN REDUCTION INTERNAL FIXA TION RIGHT WRIST Right General Wrist Clean Surgeon Surgeon Role Service Panel Michel Mendieta MD Primary Orthopedics 1 Becky Gandhi MD Resident - Assisting Orthopedi cs 1 Special Needs SUPINE, C-ARM, BIOMET documented in this encounter Social History Tobacco Use Types Packs/Day Years [...] on file documented as of this encounter Last Filed Vital Signs Vital Sign Reading Time Taken Comments Blood Pressure 115/86 04/30/2022 9:12 AM CDT Pulse 76 04/30/2022 9:30 AM CDT Temperature 36.7 ??C (98 ??F) 04/30/2022 9:12 AM CDT Respiratory Rate 14 04/30/2022 9:12 AM CDT Oxygen Saturation 95% 04/30/2022 9:12 AM CDT Inhaled Oxygen Concentration - - Weight 87.7 kg (193 lb 4.8 oz) 04/30/2022 9:12 A M CDT Height 175.3 cm (5' 9 ) 04/30/2022 9:12 AM CDT Body Mass Index 28.55 04/30/2022 9:12 AM CDT documented in this encounter Functional Status Functional Status Response Date of Assess ment Is person deaf or have serious hearing difficult y? No 04/30/2022 Is person blind or have serious difficulty seein g? No 04/30/2022 Does person have serious dif ficulty walking/climbing stairs? No 04/30/2022 Does person have difficulty dressing/bathing? No 04/30/2022 Does person have difficulty doing errands alone? No 04/30/2022 Cognitive Status Response Date of Assessm ent Does person have difficulty concentrating/remembering/making decisions? No 04/30/2022 documented as of this encounter Discharge Summaries * Becky Gandhi MD - 04/30/2022 2:51 PM CDT Orthopaedic Surgery Discharge Summary Patient ID: Chapincito Pulido [id number] 72 year old 1950 Admit date: 04/30/2022 Discharge date and time: 04/30/22 Admitting Physician: Michel Mendieta MD Discharge Physician: Michel Mendieta MD Admission Diagnoses: Closed punch fracture distal radius, right, initial encounter [S52.571A] Discharge Diagnoses: Active Problems: Closed fracture of right wrist, initial encounter Discharged Condition: good Procedure Preformed: Right distal radius ORIF Hospital Course: Chapincito Pulido was admitted on 04/30/2022 as an outpatient for the above listed procedure. Patient tolerated the procedure without complication and was extubated and transported to the PACU safely. On POD#0 pain was controlled on PO pain medication. Diet was advanced and patient tolerated PO intake. Patient was discharged home in stable condition and will follow up with Dr. Mendieta in 2 week(s). Consults: None Disposition: Home Patient Instructions: Follow-up Information Michel Mendieta MD . Specialty: Orthopedic Surgery Why: Please call as soon as possible to confirm your post op appointment with Dr. Mendieta on 05/09/22 Contact information: [address] [place] [address] OF ORTHOPEDIC SURGERY [facility] [address] Signed: Becky Gandhi MD 04/30/2022 documented in this encounter Medications at Time of Discharge Medication Sig Dispensed Refills Start Date End Date acetaminophen (TYLENOL) 325 MG tablet Take 325 mg by mouth every 6 hours as needed ADVAIR HFA 230-21 MCG/ACT Inhale 1 puff by mouth 2 times daily 03/14/2022 albuterol HFA (PROVENTIL; VENTOLIN; PROAIR) 108 (90 Base) MCG/ACT inhaler INHALE 2 PUFFS BY MOUTH EVERY 4 TO 6 HOURS NEEDED FOR SHORTNESS OF BREATH OR WHEEZING 04/14/2021 albuterol-ipratropium (DUO-NEB) 0.5-2.5 (3) MG/3ML nebulizer solution USE 1 VIAL PER NEBULIZER 4 TIMES A DAY FOR 15 DAYS 11/17/2020 Ascorbic Acid 1000 MG Take 1,000 mg by mouth once daily Cholecalciferol 125 MCG (5000 UT) Take 5,000 Units by mouth once daily cyanocobalamin 250 MCG tablet Take 250 mcg by mouth once daily dicyclomine (BENTYL) 20 MG tablet Take 20 mg by mouth 3 times daily furosemide (LASIX) 40 MG tablet Take 40 mg by mouth once daily 03/15/2022 gabapentin (NEURONTIN) 800 MG tablet Take 800 mg by mouth 2 times daily 02/11/2022 HYDROcodone-acetaminop hen (NORCO) 5-325 MG tablet Take 1 (one) tablet by mouth every 6 hours as needed 28 tablet 04/30/2022 letrozole (FEMARA) 2.5 MG tablet Take 2.5 mg by mouth once daily 04/13/2022 levothyroxine (SYNTHROID) 100 MCG tablet Take 100 mcg by mouth at bedtime 03/26/2022 montelukast (SINGULAIR) 10 MG tablet Take 10 mg by mouth once daily 02/21/2022 pancrelipase (CREON 12,000) 29606-44467 units capsule rOPINIRole (REQUIP) 0.25 MG tablet Take 0.25 mg by mouth at bedtime 02/07/2022 warfarin (COUMADIN) 2 MG tablet Take 5 mg by mouth once daily 02/20/2022 docusate sodium (COLACE) 100 MG capsule Take 1 (one) capsule by mouth 2 times daily for 7 days 14 capsule 04/30/2022 05/07/2022 documented as of this encounter Progress Notes * Becky Gandhi MD - 04/30/2022 2:49 PM CDT [facility] Orthopaedic Surgery Postoperative Check Surgery Date: 04/30/2022 Diagnosis: Active Problems: Closed fracture of right wrist, initial encounter Procedure Performed: Procedure(s): OPEN REDUCTION INTERNAL FIXATION RIGHT WRIST Subjective Ms. Pulido is resting comfortably in PACU Postoperative vitals: BP 135/94 Pulse 92 Temp 97.3 ??F (36.3 ??C) (Oral) Resp 18 Ht 5' 9 (1.753 m) Wt 193 lb 4.8 oz (87.7 kg) SpO2 98% BMI 28.55 kg/m2Temp (24hrs), Av.7 ??F (36.5 ??C), Min:97.3 ??F (36.3 ??C), Max:98??F (36.7 ??C) Physical Exam General appearance: No apparent distress. Right upper extremity: fires motor R/M/U/AIN/PIN, Sensation intact to light touch in R/M/U nerve distributions distally below the splint, fingers warm and well perfused, Short arm splint in place Assessment/Plan Status post Procedure(s): OPEN REDUCTION INTERNAL FIXATION RIGHT WRIST 1. right upper extremity: NWB 2. PT/OT 3. Pain Control 4. DVT Prophylaxis: resume home Coumadin 5. Drains? No 6. Discharge to home 7. Follow up in clinic with Dr. Mendieta in 1 week Becky Gandhi MD 04/30/2022 2:50 PM * Joey Mulligan DO - 04/30/2022 7:54 AM CDT [facility] Single Shot Peripheral Nerve Block Follow Up Patient seen and examined on 05/01/22. The patient is s/p infraclavicular nerve block. The block wore off at approximately 0700. Motor & sensory are back to baseline. Pain is well controlled. Pain control per primary team. Of note there was a superficial hematoma vs ecchymosis in the right supraclavicular area after the block. Per pa valeria the swelling has resided. Thank you for the opportunity to participate in this patient's care. Please call with any questions or concerns. Joey Mulligan DO 05/01/22 documented in this encounter H&P Notes * Becky Gandhi MD - 04/30/2022 10:[address] [facility] Orthopaedic Trauma Surgery History and Physical Chapincito Pulido 72 year old female Date: 04/30/2022 Chief Complaint: right distal radius HPI: History is obtained from the patient Patient is a 72 year old female with hx of distal radius fracture that was closed reduced and splinted in the ED on 04/09/22. She presents today for open reduction with internal fixation right distal radius, possible wrist spanning plate with Dr. Mendieta. Denies any recent fevers, chills. PMHx: Past Medical History: Diagnosis Date ??? Disorder of thyroid ??? Malignant neoplasm of right breast lumpectomy and then mastectomy ??? Snoring PSHx: Past Surgical History: Procedure Laterality Date ??? Appendectomy ??? Cholecystectomy Social Hx: Social History Tobacco Use ??? Smoking status: Never Smoker ??? Smokeless tobacco: Never Used Substance Use Topics ??? Alcohol use: Yes Comment: social Family Hx: family history is not on file. Allergies: No Known Allergies Medications: Current Facility-Administered Medications Medication ??? lactated ringers infusion Review of Systems Review of Systems General ROS: negative for - chills or fever Ophthalmic ROS: negative for - vision changes ENT ROS: negative for - cough or sore throat Respiratory ROS: no shortness of breath or wheezing Cardiovascular ROS: no chest pain Gastrointestinal ROS: negative for - nausea/vomiting Neurological ROS: negative for - headaches Hematological and Lymphatic ROS: negative for - bleeding problems Dermatological ROS: negative for - rash Vitals: BP 115/86 Pulse 76 Temp 98 ??F (36.7 ??C) (Oral) Resp 14 Ht 5' 9 (1.753 m) Wt 193 lb 4.8 oz (87.7kg) SpO2 95% BMI 28.55 kg/m2 Physical Exam: General appearance: healthy, alert, cooperative Cardiac: Regular rate Pulmonary: unlabored breathing on room air, no use of accessory muscles Abd: soft, non-tender, non-distended MSK RUE:motor: fires R/M/U/AIN/PIN, sensation: intact to light touch distally below the splint, fingerswarm and well perfused, sugar tong splint in place Imaging: XR Right wrist reviewed: Demonstrates comminuted and impacted intra-articular distal radius fracture. No improvement in alignment s/p attempted re-reduction and splinting in clinic....will be unsatisfactory alignment but functionally may be okay but feel that ORIF will be bset option at this time Labs: Recent Labs Component Name 05/30/22 1832 WBC 13.2* HGB 12.9 HCT 38.4 No results for input(s): NA, K, CL, CO2, BUN, CREATININE, GLU in the last 92938 hours. Recent Labs Component Name 04/30/22 0931 PT 20.6* INR 1.8 Assesment and Plan: Patient is a 72 year old female with hx of right distal radius fracture. She presents today for open reduction with internal fixation right distal radius, possible wrist spanning plate with Dr. Mendieta. - The risks and benefits of the procedure were discussed with the patient. The patient demonstratedunderstanding. Questions were solicited and answered. - Patient is NPO - Consent is signed and in the chart - Patient is site marked - Pre op ancef - Plan for d/c home post op - Please page ortho trauma with questions Becky Gandhi MD 04/30/2022 10:49 AM Pager #[phone]. After 5pm and weekends please page ortho resident group leader semiconductor testing. Associated attestation - Michel Mendieta MD - 04/30/2022 10:54 AM CDT I have reviewed the history and pertinent physical findings on clinical exam of the patient. I agree with the residents assessment and I personally examined the patient myself with the crucial physical findings as noted below. Plan for ORIF right distal radius No focal motor/ sensory deficits noted. All examined motor groups intact and no sensory changes noted. Able to extend wrist, and fingers, flex finger and wrist with no wrist drop. Pulses at wrist intact with palp radial and ulnar pulse. Tony's test is normal. Discussed ORIF with volar plate vs possible ORIF with dorsal wrist spanning plate RIGHT disatl radius Discussed with pt as per our discussion in clinic with pt and daughter and will proceed at this time documented in this encounter Nursing Notes * Thania Jenkins RN - 04/27/2022 2:08 PM CDT Patient seen in PAT 04/27/2022. Pt prescribed warfarin by Chris Avalos PA-C. Per Chris Avalos, patient to hold medication starting today, 04/27/2022. I called the patient and informedher of the instructions. She had not yet taken today's dose and will hold. She verbalized understanding. documented in this encounter OR Notes * Operative - Michel Mendieta MD - 04/30/2022 4:53 PM CDT Operative Report NAME: CHAPINCITO PULIDO : 1950 AGE: 72 PROC DATE: 04/30/2022 SEX: F SURGEON: Michel Mendieta MD PREOPERATIVE DIAGNOSES: Right distal intraarticular radius fracture with two separate intra-articular pieces including radial styloid and scaphoid fossa fragments. POSTOPERATIVE DIAGNOSES: Right distal intraarticular radius fracture with two separate intra-articular pieces including radial styloid and scaphoid fossa fragments. OPERATION AND PROCEDURE: Open reduction and internal fixation of volar plate stabilization, right intra-articular distal radius fracture. ATTENDING SURGEON: Michel Mendieta MD ASSIST: Stella Gandhi MD OPERATIVE INDICATIONS: This is a pleasant 72-year-old female with a history of distal radius fracture that underwent closed reduction and splinting in the emergency department on 04/09/2022. She presented to clinic last week where the reduction, which was anatomic, had slipped a 100% dorsal displacement with significant radial shortening, dorsal angulation, and radial deviation. This was explained to the patient that this would be the result in closed methods and we discussed operative intervention. We will proceed at this juncture. Informed consent and appropriate surgical side verificationwas confirmed. We will proceed. OPERATIVE NOTE: Following application of general endotracheal anesthesia, the patient was placed insupine position on a radiolucent operating table. The entire right lower extremity prepped and draped in routine fashion with a pneumatic tourniquet applied upon right upper arm placed over a radiolucent hand table. Following appropriate surgical timeout and appropriate surgical site documentation, the wrist was approached through a flexor carpi radialis approach beginning the incision 5 cm proximal to the wristcrease in line with the flexor carpi radialis tendon. There was slight radial angulation 45 degreesacross the wrist crease. Prior to incision, an Esmarch bandage was used to exsanguinate the limb and the tourniquet inflated to 200 mmHg. The incision was carried down through skin and subcutaneous tissue, identifying the flexor carpi radialis tendon sheath. Prior to incision, an Tony test was performed to ensure that radial and ulnar arteries were patent. Following isolation of the flexor carpi radialis tendon sheath, this was incised and the FCR retracted ulnarly exposing the floor of the tendon sheath, which was carefully incised. The volar musculature was then retracted ulnarly protecting the radioulnar joint with a small baby Beard retractor and the pronator quadratus identified. As this was a chronic fracture, greater than 3 weeks, there was significant callus with the deformity and on careful elevation of the pronator quadratus, I isolated the primary volar fracture line, which was significantly foreshortened. Dissecting radially around the radial styloid, a significant callus was exposed and the brachioradialis was identified and partially released to allow for the shortening that had occurred. Dissecting subperiosteally along the dorsal aspect of the proximal segment, a clamp was used to pronate the radius and open up the fracture site and the callus was freed up from the inside out and gradually using a small [place] elevator, the fracture was slowly levered out to length over approximately 15 minutes time to avoid fracturing and refracturing the intra-articular nature of the fracture. From underneath the articular surface, a small impactor was used to disimpact and elevate the scaphoid fossa as there was a fracture line through this as well as in the radial styloid. Once the fracture had been brought out to length, two additional 1.6-mm K-wires were advanced, the first transversely underneath the scaphoid fossa into the ulnar head to maintain the reduced scaphoid fossa and a second pin advanced retrograde across the radial styloid down into the intact lateral shaft of the radius thus reducing the fracture at length. There was slight shortening, which had occurred given the soft tissue tension, and this will be carried out with distraction through the plate. A 3-hole standard DVR CrossLock plate was then juxtaposed to the distal aspect at the level of the watershed and held with the tenaculum with the plate flushed to the articular volar cortex. Multiple small K-wires were then used to stabilize the plate to the distal fragment following positioning of the plate down the midportion of the proximal segment. Multiple 2.4-mm locking screws were then placed in the distal and proximal rows for maintaining thescaphoid fossa elevation as well as radial length of the styloid fragment. One by one, the K-wires were removed. At this point the plate, which remained elevated off the proximal shaft was then gradually manipulated and clamped to the proximal shaft to reduce the volar tilt. The central oblong hole in the mid portion of the plate was then filled in a direct midline portion. Under fluoroscopic control using a push-pull technique with a push screw proximally and a lamina home care attendant, the radius was gently pushed out to length, matching the lateral cortex until excellent length and yarsanism of the normal ulnar-radial relationship was re-maintained. Following congruency of the distal radioulnar joint and reduction of the fracture at length, the oblong screw hole was tightened and locking into position. Two additional shaft screws were then placed using 2.4 and 2.7-mm bicortical nonlocking screws to maintain articular reduction. At this juncture, the area was visualized under AP, lateral, and dynamic fluoroscopy as well as visualizing the distal screw pattern to ensure that there was no dorsal wrist cortical penetration. At this juncture, the wounds were copiously lavaged with normal saline sealed with 5 mL of FloSeal hemostatic agent compressed with a saline-soaked sponge and the tourniquet was deflated. Total tourniquet time 88 minutes. Following the achievement of hemostasis, the wounds were then closed in layers using interrupted 0 Vicryl closing the pronator quadratus, followed by 2-0 and 3-0 Monocryl respectively for subcutaneous tissue and skin in an interrupted AO stitch fashion. A large bulky compressive dressing was applied using Xeroform gauze, sterile 4 x 4's overwrapped with sterile Webril. Bulkycotton rolls applied from midpalmar crease to the antecubital fossa with a volar splint overwrappedwith bias-cut stockinette. The patient was then awakened and returned to recovery room with neurovascular and vital signs stable. ESTIMATED BLOOD LOSS: 50 mL. The postop plans will include return to clinic in 1 week's time for conversion to an Exos wrist splint. Michel Mendieta MD JTOSHIA/wil .[id number] Doc ID: [id number] Voice Job ID: [id number] * Brief Op Note - Becky Gandhi MD - 04/30/2022 12:13 PM CDT Brief Op Note Procedure: OPEN REDUCTION INTERNAL FIXATION RIGHT WRIST Patient Name: Chapincito Pulido Date of Service: 04/30/2022 Pre-Op Diagnosis: Comminuited left wrist fracture Post-Op Diagnosis: same as above Surgeon(s) and Role: * Michel Mendieta MD - Primary * Becky Gandhi MD - Resident - Assisting Landfill Attendant(s): none Anesthesia Type: general ETT Complications: none Findings: comminuted and shortened distal radius fracture with adequate reduction on intra-op fluoros EBL: 50 mL Urine Output : none IV Fluid Intake: per anesthesia record Drains: none Specimen(s): none Implant(s): Implant Name Type Inv. Item Serial No. Simulation Software Engineer Lot No. LRB No. Used Action plate [employer] Right 1 Implanted Screw 2.7Mm 14Mm Lopro Nonster Bone Lf Screw 2.7Mm 14Mm Lopro Nonster Bone Lf [employer] Right 2Implanted screw [employer] Right 1 Implanted Screw 2.7Mm 20Mm Crsslck Tpr Head 3 Ld Screw 2.7Mm 20Mm Crsslck Tpr Head 3 Ld [employer] Right 3Implanted Screw 2.7Mm 22Mm Lck Jesse Nonster Bone Screw 2.7Mm 22Mm Lck Jesse Nonster Bone [employer] Right 2Implanted screw [employer] Right 1 Implanted Screw 2.7Mm 20Mm Mldir Nonster Bone Screw 2.7Mm 20Mm Mldir Nonster Bone [employer] Right 1 Implanted Becky Gandhi MD documented in this encounter Plan of Treatment Not on file documented as of this encounter Procedures Procedure Name Priority Date/Time Associated Diagnosis Comments XR WRIST RIGHT 2VW Routine 04/30/2022 3: 50 PM CDT Closed fracture of right wrist, initial encounter [facility] Routine 04/30/2022 2:00 PM CDT Closed fracture of right wrist, initial encounter OPEN REDUCTION INTERNAL FIXATION (ORIF) WRIST/DISTAL RADIUS 04/30/2022 12:13 PM CDT Closed punch fracture distal radius, right, initial encounter Special Needs SUPINE, C-ARM, BIOMET BLOOD TYPE VERIFICATION Routine 04/30/2022 9:54 AM CDT PT-INR [facility] STAT 04/30/2022 9:31 AM CDT Preoperative examination TYPE + SCREEN PANEL STAT 04/30/2022 9 :31 AM CDT Preoperative examination documented in this encounter Results * XR WRIST RIGHT 2VW (04/30/2022 3:50 PM CDT) Anatomical Region Laterality Modality Wrist / Hand [...] Mendieta MD DIAGNOSTIC IMAGING O RDERABLES * [facility] (04/30/2022 2:00 PM CDT) Narrative [facility] - 04/30/2022 2:00 PM CDT Fluoroscopy was used for this exam in the OR. Please see the Operative report. Michel Mendieta MD FLUOROSCOPY ORDERABL ES [facility] * BLOOD TYPE VERIFICATION (04/30/2022 9:54 AM CDT) Pathologist [facility] ABO Rh A POS 04/30/2022 10:25 AM CDT [facility] Blood Bank BLOOD SPECIMEN / Unknown Lab Venipuncture / Unknown 04/30/2022 9:54 AM CDT 04/30/2022 9:57 AM CDT Michel Mendieta MD LAB - BLOOD BANK ORD ERABLES [facility] [address] [place] [address], [facility] [phone] * (ABNORMAL) PT-INR [facility] (04/30/2022 9:31 AM CDT) PT 20.6(H) 12.1 - 14.8 Seconds 04/30/2022 10:01 AM CDT [facility] INR 1.8 See Comment 04/30/2022 10:01 AM CDT [facility] Comment:The suggested therap eutic range for standard coumadin (warfarin) therapy is an INR of 2.0-3.0. For high-risk patients (Mechanical Mitral Valve Prosthesis, etc.), the suggested prophylactic therapeutic range is an INR of 2.5-3.5. Blood BLOOD SPECIMEN / Unknown Venipuncture / Unknown 04/30/2022 9:31 AM CDT 04/30/2022 9:35 AM CDT Michel Mendieta MD LAB - COAGULATION OR DERABLES Performing Organization Address City/[facility]/ZIP Co de Phone Number [facility] [address] [place] [address], [facility] [phone] * TYPE + SCREEN PANEL (04/30/2022 9:31 AM CDT) Antibody Screen NEG 10:21 AM CDT [facility] ABO Rh A POS 04/30/2022 10:21 AM CDT [facility] Blood Bank BLOOD SPECIMEN / Unknown Venipuncture / Unknown 04/30/2022 9:31 AM CDT 04/30/2022 9:36 AM CDT Michel Mendieta MD LAB - BLOOD BANK ORD ERABLES Performing Organization Address [facility]/ZIP Co de Phone Number [facility] [address] [place] [address], [facility] [phone] documented in this encounter Visit Diagnoses Diagnosis Closed fracture of right wrist, initial encounter- Primary Preoperative examination Preoperative examination, unspecified Closed punch fracture distal radius, right, initial encounter documented in this encounter Administered Medications Inactive Administered Medications - up to 3 most recent administrations Medication Order MAR Action Action Date Dose Rate Site fentaNYL (PF) (Sublimaze) injection 25 mcg 25 mcg, Intravenous, EVERY 10 MIN PRN, Mild Pain, 4 doses, Starting on Sat04/30/22 at 1430, Until Sat04/30/22 at 1753, Maximum total of 4 doses. If patient reaches max total dose, please consult anesthesiologist prior to further administration of pain meds. Hold pain meds if there are signs of hypoventilation. Patient preference for lesser PRN pain meds may be honored when the patient requests a less strong medication, a lower dose, or a less intrusive route of administration when the lesser drug, dose and route have been ordered for the patient. This patient request must be documented in the MAR., PACU fentaNYL (PF) (Sublimaze) injection 50 mcg 50 mcg, Intravenous, EVERY 10 MIN PRN, Moderate Pain, 4 doses, Starting on Sat04/30/22 at 1430, Until Sat04/30/22 at 1753, Maximum total of 4 doses. If patient reaches max total dose, please consult anesthesiologist prior to further administration of pain meds. Hold pain meds if there are signs of hypoventilation. Patient preference for lesser PRN pain meds may be honored when the patient requests a less strong medication, a lower dose, or a less intrusive route of administration when the lesser drug, dose and route have been ordered for the patient. This patient request must be documented in the MAR., PACU $ Given 04/30/2022 3:09 PM CDT 50 mcg $ Given 04/30/2022 2:35 PM CDT 50 mcg hydrALAZINE (Apresoline) injection 5 mg 5 mg, Intravenous, POST-OP MULTIPLE, Starting on Sat04/30/22 at 1430, Until Sat04/30/22 at 1753, IV given slowly over 1 minute, up to 20 mg. Repeat 5 mg IV dose every 10-15 minutes for sustained hypertension SBP greater than 180, DBP greater than 100., PACU HYDROmorphone (Dilaudid) injection 0.5 mg 0.5 mg, Intravenous, EVERY 10 MIN PRN, Severe Pain, 4 doses, Starting on Sat04/30/22 at 1430, Until Sat04/30/22 at 1753, Maximum total of 4 doses If patient reaches max total dose, please consult anesthesiologist prior to further administration of pain meds. Hold pain meds if there are signs of hypoventilation. Patient preference for lesser PRN pain meds may be honored when the patient requests a less strong medication, a lower dose, or a less intrusive route of administration when the lesser drug, dose and route have been ordered for the patient. This patient request must be documented in the MAR., PACU labetalol (Normodyne; Trandate) injection 5 mg 5 mg, Intravenous, POST-OP MULTIPLE, Starting on Sat04/30/22 at 1430, Until Sat04/30/22 at 1753, IV given slowly over 1 minute up to 20 mg. Repeat every 10-15 minutes in 5 mg doses. Hold if heart rate is less than 60. Give for hypertension SBP greater than 180, DBP greater than 100., PACU lactated ringers infusion at 20 mL/hr, Intravenous, PRE-OP CONTINUOUS, Starting on Sat04/30/22 at 0915, Until Sat04/30/22 at 1753, Pre-op $ New Bag/Syringe 04/30/2022 9:32 AM CDT 1,000 mL 20 mL/hr lactated ringers infusion at 125 mL/hr, Intravenous, CONTINUOUS, Starting on Sat04/30/22 at 1445, Until Sat04/30/22 at 1753, PACU naloxone (Narcan) injection 0.04 mg 0.04 mg, Intravenous, POST-OP MULTIPLE, Starting on Sat04/30/22 at 1430, Until Sat04/30/22 at 1753, Notify physician immediately, and mix 0.4 mg Naloxone in 9 mL Normal Saline for slow IV push. Administer dilute Naloxone solution IV very slowly (1 mL over 30 seconds) while observing the patient response and titrating to effect. If no response, call Rapid Response, continue IV Naloxone at the same rate up to a total of 0.8 mg of diluted Naloxone., PACU ondansetron (Zofran) injection 4 mg 4 mg, Intravenous, ONCE PRN, Nausea/Vomiting, 1 dose, Starting on Sat04/30/22 at 1430, Until Sat04/30/22 at 1753, First choice, PACU documented in this encounter Active and Recently Administered Medications Times are shown in CDT. Scheduled Medication Order 04/28/2022 04/29/2022 04/30/2022 ceFAZolin (Ancef) syringe 2,000 mg 2,000 mg (2 g), Intravenous, ONCE, 1 dose, On Sat04/30/22 at 1115, Administer over 3-5 minutes., Indication for anti-infective therapy: Surgical prophylaxis 1115 (Due) hydrALAZINE (Apresoline) injection 5 mg 5 mg, Intravenous, POST-OP MULTIPLE, Starting on Sat04/30/22 at 1430, Until Sat04/30/22 at 1753, IV given slowly over 1 minute, up to 20 mg. Repeat 5 mg IV dose every 10-15 minutes for sustained hypertension SBP greater than 180, DBP greater than 100., PACU labetalol (Normodyne; Trandate) injection 5 mg 5 mg, Intravenous, POST-OP MULTIPLE, Starting on Sat04/30/22 at 1430, Until Sat04/30/22 at 1753, IV given slowly over 1 minute up to 20 mg. Repeat every 10-15 minutes in 5 mg doses. Hold if heart rate is less than 60. Give for hypertension SBP greater than 180, DBP greater than 100., PACU naloxone (Narcan) injection 0.04 mg 0.04 mg, Intravenous, POST-OP MULTIPLE, Starting on Sat04/30/22 at 1430, Until Sat04/30/22 at 1753, Notify physician immediately, and mix 0.4 mg Naloxone in 9 mL Normal Saline for slow IV push. Administer dilute Naloxone solution IV very slowly (1 mL over 30 seconds) while observing the patient response and titrating to effect. If no response, call Rapid Response, continue IV Naloxone at the same rate up to a total of 0.8 mg of diluted Naloxone., PACU Continuous Medication Order 04/28/2022 04/29/2022 04/30/2022 lactated ringers infusion at 20 mL/hr, Intravenous, PRE-OP CONTINUOUS, Starting on Sat04/30/22 at 0915, Until Sat04/30/22 at 1753, Pre-op 0932 ($ New Bag/Syri nge - Provider: Leonora Alcocer RN) lactated ringers infusion at 125 mL/hr, Intravenous, CONTINUOUS, Starting on Sat04/30/22 at 1445, Until Sat04/30/22 at 1753, PACU 1445 (Due) PRN Medication Order 04/28/2022 04/29/2022 04/30/2022 fentaNYL (PF) (Sublimaze) injection 25 mcg 25 mcg, Intravenous, EVERY 10 MIN PRN, Mild Pain, 4 doses, Starting on Sat04/30/22 at 1430, Until Sat04/30/22 at 1753, Maximum total of 4 doses. If patient reaches max total dose, please consult anesthesiologist prior to further administration of pain meds. Hold pain meds if there are signs of hypoventilation. Patient preference for lesser PRN pain meds may be honored when the patient requests a less strong medication, a lower dose, or a less intrusive route of administration when the lesser drug, dose and route have been ordered for the patient. This patient request must be documented in the MAR., PACU fentaNYL (PF) (Sublimaze) injection 50 mcg 50 mcg, Intravenous, EVERY 10 MIN PRN, Moderate Pain, 4 doses, Starting on Sat04/30/22 at 1430, Until Sat04/30/22 at 1753, Maximum total of 4 doses. If patient reaches max total dose, please consult anesthesiologist prior to further administration of pain meds. Hold pain meds if there are signs of hypoventilation. Patient preference for lesser PRN pain meds may be honored when the patient requests a less strong medication, a lower dose, or a less intrusive route of administration when the lesser drug, dose and route have been ordered for the patient. This patient request must be documented in the MAR., PACU 1435 ($ Given - Prov ider: Diana Hanks RN)1509 ($ Given - Provider: Diana Hanks RN) HYDROcodone-acetaminophen ([place]) 5-325 MG tablet 1 tablet (COMPLETED) 1 tablet, Oral, ONCE PRN, Severe Pain, 1 dose, Starting on Sat04/30/22 at 1423, Until Sat04/30/22 at 1531, Patient preference for lesser PRN pain meds may be honored when the patient requests a less strong medication, a lower dose, or a less intrusive route of administration when the lesser drug, dose and route have been ordered for the patient. This patient request must be documented in the MAR. 153 ($ Given - Prov ider: Diana Hanks RN) HYDROmorphone (Dilaudid) injection 0.5 mg 0.5 mg, Intravenous, EVERY 10 MIN PRN, Severe Pain, 4 doses, Starting on Sat04/30/22 at 1430, Until Sat04/30/22 at 1753, Maximum total of 4 doses If patient reaches max total dose, please consult anesthesiologist prior to further administration of pain meds. Hold pain meds if there are signs of hypoventilation. Patient preference for lesser PRN pain meds may be honored when the patient requests a less strong medication, a lower dose, or a less intrusive route of administration when the lesser drug, dose and route have been ordered for the patient. This patient request must be documented in the MAR., PACU ondansetron (Zofran) injection 4 mg 4 mg, Intravenous, ONCE PRN, Nausea/Vomiting, 1 dose, Starting on Sat04/30/22 at 1430, Until Sat04/30/22 at 1753, First choice, PACU documented in this encounter Care Teams Phlebotomist Relationship Specialty Start Date End Date Chris Avalos PA-C [address] [place] [address] PCP - General 04/25/22 documented as of this encounter
--- OUTSIDE RECORDS SUMMARY | 2024-11-09 18:26 | XMS_ITS | Encounter Summary ---
Author Organization [facility] Address [address] [place] [address]. [place], [place] [address] [place] [address] Care Team Providers Care Fermenting Cellar Dropper Name Role Phone Unavailable Primary Care Provider Unavailabl e Encounter Details Date Type Department Care Team (Late st Contact Info) Description 04/27/2009 Abstract [facility] [address] [place] [address] Orestes Flores MD Social History Tobacco Use [...]
--- OUTSIDE RECORDS SUMMARY | 2024-11-09 18:26 | XMS_ITS | Encounter Summary ---
Author Organization [facility] Address [address] [place] [address]. [place], [place] [address] [place] [address] Care Team Providers Care Manufacturing Associate Name Role Phone Unavailable Primary Care Provider Unavailabl e Encounter Details Date Type Department Care Team (Late st Contact Info) Description 11/02/2011 Abstract [facility] Imaging [address] [place] [address] Soy Barriga MD [address] [place] [address] Social History Tobacco Use Types Packs/Day Years Used Date Smoking Tobacco: Never Assessed Comments Unknown Sex and Gender Information Value Date Recorded Sex Assigned at Not on file Legal Sex Female 11:00 AM CDT Gender Identity Not on file Sexual Orientation Not on file documented as of this encounter Plan of Treatment Not on file documented as of this encounter Visit Diagnoses Diagnosis Personal history of malignant neoplasm of breast documented in this encounter
--- OUTSIDE RECORDS SUMMARY | 2024-11-09 18:26 | XMS_ITS | Encounter Summary ---
Author Organization [facility] Address [address] [place] [address] Care Team Providers Care Transplant Nurse Practitioner Name Role Phone Chris Avalos PA-C Primary Care Provide r Encounter Details Date Type Department Care Team (Late st Contact Info) Description 07/04/2022 9:29 AM CDT - 07/04/2022 11:59 PM CDT Hospital Encounter [facility] DIAGNOSTIC RAD [facility] [address] [facility] [place] [address] Michel Mendieta MD [facility] [facility] [place] [address] Discharge Disposition: Home or Self Care Social [...] on file documented as of this encounter Functional Status Functional Status Response [...] No 04/30/2022 documented as of this encounter Medications at Time of Discharge [...] mg by mouth 2 times daily 02/11/2022 HYDROcodone-acetaminoph en (NORCO) 5-325 MG tablet Take 1 (one) tablet by mouth every 6 hours as needed 28 tablet 04/30/2022 letrozole (FEMARA) 2.5 MG tablet Take 2.5 mg by mouth once daily 04/13/2022 levothyroxine (SYNTHROID) 100 MCG tablet Take 100 mcg by mouth at bedtime 03/26/2022 montelukast (SINGULAIR) 10 MG tablet Take 10 mg by mouth once daily 02/21/2022 pancrelipase (CREON 12,000) 250[address] units capsule rOPINIRole (REQUIP) 0.25 MG tablet Take 0.25 mg by mouth at bedtime 02/07/2022 warfarin (COUMADIN) 2 MG tablet Take 5 mg by mouth once daily 02/20/2022 documented as of this encounter Plan of Treatment Not on file documented as of this encounter Procedures Procedure Name Priority Date/Time Associated Diagnosis Comments XR WRIST RIGHT 3VW OR MORE Routine 07/04/2022 9:33 AM CDT Other closed intra-articular fracture of distal end of right radius with routine healing, subsequent encounter documented in this encounter Results * XR WRIST RIGHT 3VW OR MORE (07/04/2022 9:33 AM CDT) Anatomical Region Laterality Modality Wrist / Hand Radiographic Kymberly ging 07/04/2022 9:44 AM CDT Impressions 07/04/2022 10:06 AM CDT IMPRESSION: 1.Internally fixated distal radial fracture, unchanged in alignment. 2.Ulnar styloid fracture, unchanged in alignment. Report dictated by Dawn Woodward MD (director of radiology). I, Lorne Ann MD have personally reviewed and interpreted this examination/study. > Interpreting Provider: Lorne Ann MD on 07/04/2022 10:06 AM Narrative 07/04/2022 10:06 AM CDT PROCEDURE: ??XR WRIST RIGHT 3VW OR MORE, DATE/TIME OF EXAM: ??07/04/2022 9:33 AM, LOCATION ??[facility] INDICATION: S52.571D: Other closed intra-articular [...] alignment. Procedure Note Lorne Ann MD - 08/24/2022 PROCEDURE: XR WRIST RIGHT 3VW OR MORE, DATE/TIME OF EXAM: 29:33 AM, LOCATION [facility] INDICATION: S52.571D: Other closed intra-articular [...] alignment. Report dictated by Dawn Woodward MD (director of radiology). I, Lorne Ann MD have personally reviewed and interpreted this examination/study. > Interpreting Provider: Lorne Ann MD on 07/04/2022 10:06 AM Michel Mendieta MD DIAGNOSTIC IMAGING [facility] documented in this encounter Visit Diagnoses Diagnosis Other closed intra-articular fracture of distal end of right radius with routine healing, subsequent encounter documented in this encounter Care Teams Transplant Nurse Practitioner Relationship Specialty Start Date End Date Chris Avalos PA-C [address] [place] [address] PCP - General 04/25/22 documented as of this encounter
--- OUTSIDE RECORDS SUMMARY | 2024-11-09 18:26 | XMS_ITS | Encounter Summary ---
Author Organization [facility] Address [address] [place] [address]. [place], [place] [id number] [place] [address] Care Team Providers Care Manager Psychology Name Role Phone Unavailable Primary Care Provider Unavailabl e Encounter Details Date Type Department Care Team (Late st Contact Info) Description 04/18/2016 Abstract [facility] Cardiopulmonary Services [address] [place] [address] Madhav South MD [address] [place] [address] Social History Tobacco Use Types Packs/Day Years Used Date Smoking Tobacco: Never Assessed Comments Unknown Sex and Gender Information Value Date Recorded Sex Assigned at Not on file Legal Sex Female 11:00 AM CDT Gender Identity Not on file Sexual Orientation Not on file documented as of this encounter Plan of Treatment Not on file documented as of this encounter Visit Diagnoses Diagnosis Encounter for other preprocedural examination documented in this encounter
--- OUTSIDE RECORDS SUMMARY | 2024-11-09 18:26 | XMS_ITS | Encounter Summary ---
Author Organization [facility] Address [address] [place] [address] Care Team Providers Care Information Developer Name Role Phone Chris Avalos PA-C Primary Care Provide r Encounter Details Date Type Department Care Team (Late st Contact Info) Description 05/16/2022 Orders Only [facility] - Orthopedics [address] [place] [address], [place] [address] Margot Potter PA-C [address] [place] [address] [place] [address] Other closed intra-articular fracture of distal end of right radius with routine healing, subsequent encounter Social History Tobacco Use Types Packs/Day [...] No 04/30/2022 documented as of this encounter Plan of Treatment Not on file documented as of this encounter Visit Diagnoses Diagnosis Other closed intra-articular fracture of distal end of right radius with routine healing, subsequent encounter- Primary documented in this encounter Care Teams Information Developer Relationship Specialty Start Date End Date Chris Avalos PA-C [address] [place] [address] PCP - General 04/25/22 documented as of this encounter
--- OUTSIDE RECORDS SUMMARY | 2024-11-09 18:26 | XMS_ITS | Encounter Summary ---
Author Organization [facility] Address [address] [place] [address]. [place], [place] [address] [place] [address] Care Team Providers Care Graduate Studies Dean Name Role Phone Unavailable Primary Care Provider Unavailabl e Encounter Details Date Type Department Care Team (Late st Contact Info) Description 10/13/2010 Abstract [facility] Diagnostic [facility] [address] [place] [address] Soy Barriga MD [address] [place] [address] Social History Tobacco Use Types Packs/Day Years [...]
--- OUTSIDE RECORDS SUMMARY | 2024-11-09 18:26 | XMS_ITS | Encounter Summary ---
Author Organization [facility] Address [address] [place] [address]. [place], [place] [id number] [place] [address] Care Team Providers Care Aligner Barrel And Receiver Name Role Phone Unavailable Primary Care Provider Unavailabl e Encounter Details Date Type Department Care Team (Late st Contact Info) Description 09/05/2007 Abstract [facility] [address] [place] [address] Michelle Iglesias MD [address] [place] [address] Social History Tobacco Use Types Packs/Day Years [...]
--- OUTSIDE RECORDS SUMMARY | 2024-11-09 18:26 | XMS_ITS | Encounter Summary ---
Author Organization [facility] Address [address] [place] [address] Care Team Providers Care Diamond Die Maker Name Role Phone Chris Avalos PA-C Primary [...] Expiration Date Visits Re quested Visits Authorized [id number] 1 1 Encounter Details Date Type Department Care Team (Late st Contact Info) Description 04/30/2022 8:38 AM CDT - 04/30/2022 4:53 PM CDT Hospital Encounter [facility] GO OP [address] [place] [address] Michel Mendieta MD [address] [facility] [place] [address] Surgery General Discharge Disposition: Home or Self Care Social [...] Surgery Discharge Summary Patient ID: Chapincito Pulido [id number] 72 year old 1950 Admit date: 04/30/2022 Discharge date and time: 04/30/22 Admitting Physician: Michel Mendieta MD Discharge Physician: Michel Mendieta MD Admission Diagnoses: Closed punch fracture distal radius, right, initial encounter [H43.486G] Discharge Diagnoses: Active Problems: Closed fracture of [...] with Dr. Mendieta on 05/09/22 Contact information: [address] [facility] [address] Signed: Becky Gandhi MD 04/30/2022 documented in [...] mouth once daily 02/21/2022 pancrelipase (CREON 12,000) 81614-53549 units capsule rOPINIRole (REQUIP) 0.25 MG tablet [...] right supraclavicular area after the block. Per venkat shaw the swelling has resided. Thank you for the opportunity to participate in this patient's care. Please call with any questions or concerns. Joey Mulligan DO 05/01/22 documented in this encounter H&P Notes * Becky Gandhi MD - 04/30/2022 10:48 AM CDT [facility] Orthopaedic Trauma Surgery History and Physical Chapincito [...] 193 lb 4.8 oz (87.7 kg) SpO2 95% BMI 28.55 kg/m2 Physical Exam: [...] this time Labs: Recent Labs Component Name 04/09/22 1832 WBC 13.2* HGB 12.9 HCT 38.4 No results for input(s): NA, K, CL, CO2, BUN, CREATININE, GLU in the last 74564 hours. Recent Labs Component Name 04/30/22 0931 [...] Becky Gandhi MD 04/30/2022 10:49 AM Pager #[phone]. After 5pm and weekends please page ortho resident commissioned police officer. Associated attestation - Michel Mendieta MD - [...] 04/27/2022 2:08 PM CDT Patient seen in [facility] 04/27/2022. Pt prescribed warfarin by Chris Avalos [...] juncture. Informed consent and appropriate surgical side verification was confirmed. We will proceed. OPERATIVE NOTE: Following [...] inside out and gradually using a small [place] elevator, the fracture was slowly levered out [...] a push screw proximally and a lamina record changer, the radius was gently pushed out to length, matching the lateral cortex until excellent length and synagogue of the normal ulnar-radial relationship was re-maintained. [...] an Exos wrist splint. Michel Mendieta MD JTW/wil .[id number] Doc ID: [id number] Voice Job ID: [id number] * Brief Op Note - Becky Gandhi MD - 04/30/2022 12:13 PM CDT Brief Op Note Procedure: OPEN REDUCTION INTERNAL FIXATION RIGHT WRIST Patient Name: Chapincito Pulido Date of Service: 04/30/2022 Pre-Op Diagnosis: Comminuited left wrist fracture Post-Op Diagnosis: same as above Surgeon(s) and Role: * Michel Mendieta MD - Primary * Becky Gandhi MD - Resident - Assisting Clinical Engineer(s): none Anesthesia Type: general ETT Complications: none Findings: comminuted and shortened distal radius fracture with adequate reduction on intra-op fluoros EBL: 50 mL Urine Output : none IV Fluid Intake: per anesthesia record Drains: none Specimen(s): none Implant(s): Implant Name Type Inv. Item Serial No. Fabric Worker Foreman Lot No. [id number] No. Used Action plate [...] drafted by Jose Angel Pruitt M.D. (resident) Dr. VANESSA Mittal M.D. have personally reviewed and interpreted [...] [facility] (04/30/2022 2:00 PM CDT) Narrative [facility] RADIOLOGY - 04/30/2022 2:00 PM CDT Fluoroscopy was used for this exam in the OR. Please see the Operative report. Michel Mendieta MD FLUOROSCOPY ORDERABL ES [facility] * BLOOD TYPE VERIFICATION (04/30/2022 9:54 AM CDT) ABO Rh A POS 04/30/2022 10:25 AM CDT [facility] Blood Bank BLOOD SPECIMEN / Unknown Lab Venipuncture / Unknown 04/30/2022 9:54 AM CDT 04/30/2022 9:57 AM CDT Michel Mendieta MD LAB - BLOOD BANK ORD ERABLES [facility] [address] [place] [address], [place] [phone] * (ABNORMAL) PT-INR [facility] (04/30/2022 9:31 AM CDT) PT 20.6(H) 12.1 - 14.8 Seconds 04/30/2022 10:01 AM CDT [facility] INR 1.8 See Comment 04/30/2022 10:01 AM CDT [facility] Comment:The suggested therap eutic range for standard coumadin (warfarin) therapy is an INR of 2.0-3.0. For high-risk patients (Mechanical Mitral Valve Prosthesis, etc.), the suggested prophylactic therapeutic range is an INR of 2.5-3.5. Blood BLOOD SPECIMEN / Unknown Venipuncture / Unknown 04/30/2022 9:31 AM CDT 04/30/2022 9:35 AM CDT Michel Mendieta MD LAB - COAGULATION OR DERABLES Performing Organization Address City/[facility]/ZIP Co de Phone Number [facility] [address] [place] [address], [facility] [phone] * TYPE + SCREEN PANEL (04/30/2022 9:31 AM CDT) Antibody Screen NEG 10:21 AM CDT [facility] ABO Rh A POS 04/30/2022 10:21 AM CDT [facility] Blood Bank BLOOD SPECIMEN / Unknown Venipuncture / Unknown 04/30/2022 9:31 AM CDT 04/30/2022 9:36 AM CDT Michel Mendieta MD LAB - BLOOD BANK ORD ERABLES Performing Organization Address [facility] Co de Phone Number [facility] [address] [place] [address], [facility] [phone] documented in this encounter Visit Diagnoses Diagnosis Closed fracture of right wrist, initial encounter- Primary Preoperative examination Preoperative examination, unspecified Closed fracture of right wrist, initial encounter Post-op pain Other acute postoperative pain documented in this encounter Administered Medications Inactive Administered Medications - up to 3 most recent administrations Medication Order [facility] Action Action Date Dose Rate Site fentaNYL [...] than 180, DBP greater than 100., PACU HYDROcodone-acetaminophen ([place]) 5-325 MG tablet 1 tablet 1 tablet, Oral, ONCE PRN, Severe Pain, [...] request must be documented in the MAR. $ Given 04/30/2022 3:31 PM CDT 1 tablet HYDROmorphone (Dilaudid) injection 0.5 mg 0.5 mg, [...] Given - Provider: Diana Hanks RN) HYDROcodone-acetaminophen ([place]) 5-325 MG tablet 1 tablet (COMPLETED) 1 [...] patient request must be documented in the JAN. 153 ($ Given - Prov ider: Diana [...] PACU documented in this encounter Care Teams Diamond Die Maker Relationship Specialty Start Date End Date Chris Avalos PA-C [address] [place] [address] PCP - General 04/25/22 documented as of this encounter
--- OUTSIDE RECORDS SUMMARY | 2024-11-09 18:26 | XMS_ITS | Encounter Summary ---
Author Organization [facility] Address [address] [place] [address]. [place], [place] [id number] [place] [address] Care Team Providers Care Tassel Maker Name Role Phone Unavailable Primary Care Provider Unavailabl e Encounter Details Date Type Department Care Team (Late st Contact Info) Description 08/15/2007 Abstract [facility] CONVERSION [address] [place] [address] Soy Barriga MD [address] [place] [address] Social History Tobacco Use Types Packs/Day Years [...]
--- OUTSIDE RECORDS SUMMARY | 2024-11-09 18:26 | XMS_ITS | Encounter Summary ---
Author Organization [facility] Address [address] [place] [address]. [place], [place] [id number] [place] [address] Care Team Providers Care Pecan Cleaner Name Role Phone Unavailable Primary Care Provider Unavailabl e Encounter Details Date Type Department Care Team (Late st Contact Info) Description 04/29/2010 Abstract [facility] CONVERSION [address] [place] [address] Orestes Flores MD Social History Tobacco Use [...]
--- OUTSIDE RECORDS SUMMARY | 2024-11-09 18:26 | XMS_ITS | Encounter Summary ---
Author Organization [facility] Address [address] [place] [address]. [place], [place] [id number] [place] [address] Care Team Providers Care Motor Tune Up Specialist Name Role Phone Unavailable Primary Care Provider Unavailabl e Encounter Details Date Type Department Care Team (Late st Contact Info) Description 01/08/2009 Abstract [facility] CONVERSION [address] [place] [address] Orestes Flores MD Social History Tobacco Use [...]
--- OUTSIDE RECORDS SUMMARY | 2024-11-09 18:26 | XMS_ITS | Encounter Summary ---
Author Organization [facility] Address [address] [place] [place] [address] Care Team Providers Care Fixture Maker Name Role Phone Chris Avalos PA-C Primary Care Provide r Reason for Visit * Auth/Cert Specialty Diagnoses / Procedures Referred By Quinn t Referred To Contact Diagnoses Closed comminuted fracture of waist of scaphoid of left wrist, initial encounter Comminuited left wrist fracture Procedures OPEN REDUCTION INTERNAL FIXATION (ORIF) WRIST/DISTAL RADIUS Referral ID Status Reason Start Date Expiration Date Visits Re quested Visits Authorized 1 1 Encounter Details Date Type Department Care Team (Late st Contact Info) Description 04/30/2022 11:32 AM CDT Anesthesia Event [facility] [address] [place] [address] Michel Barbour II, MD [address] [place] [address] Jcarlos Askew DO [address] [place] [address] Anesthesia Record Procedure Summary Procedure Name Responsible Anesthesiologist Anesthesia Start Time Anesthesia Stop Time OPEN REDUCTION INTERNAL FIXATION RIGHT WRIST (Right: Wrist) Michel Barbour II, MD 04/30/22 1132 04/30/22 1429 Events Date Time Event Comment 04/30/2022 0912 1132 An Start 1132 Pt In Room 1132 An Start Data 1141 Anes Timeout 1142 PT Reassessment 1143 Induction 1147 An Intubation 1158 Anes Ready 1211 Timeout Anesthesia part icipated in timeout at the time documented in the record by nursing. 1211 Time Out Anesthesia part icipated in timeout at the time documented in the record by nursing 1212 An Tourn Inflated Pressure: 200 mmHg 1213 Proc Start 1312 Quick Note Surgeon notifie d of one hour tourniquet time 1340 An Tourn Deflated Total Tour niquet Time ( in minutes): 88 1416 Proc Stop 1419 An Emergence 1423 Extubation 1425 an stop data 1425 Pt out of Room 1425 ANPTO2 1429 An Stop Meds Name Total ceFAZolin 2,000 mg IVPB 2 g midazolam 2 mg/2mL injection 1 mg fentaNYL 100 mcg/2ml injection 75 mcg lidocaine PF 2% 100 mg propofol 200mg/20mL injection 170 mg rocuronium 50 mg/5 mL injection 50 mg dexamethasone 10 mg/ml PF injection 4 mg ondansetron 4mg/2mL injection 4 mg hydromorphone 2 mg/10mL prefilled syring e 0.4 mg sugammadex 200 mg/2mL injection 200 mg ropivacaine (NAROPIN) 2 MG/ML (0.2%) inj ection 20 mL dexamethasone (DECADRON) 4 mg/mL injecti on 4 mg LR (Lactated ringers) 1,200 mL * Agents Name Insp. N2O Exp. Sevoflurane Exp. N2O O2 Air Insp. Sevoflurane * Blood No blood administrations on file. Lines, Drains, and Airways Type Details Placement Removal Peripheral IV Date: 04/30/22; Time : 09; Orientation: Anterior, Left; Tolerance: Well 04/30/22 0915 by Leonora Alcocer RN 04/30/22 1643 by Michel Vasquez RN ETT Date: 04/30/22; Time : 1147; Placed By: Wero Ayala DO; Vent: easy mask; Induction: Standard IV; Blade Type: Batsheva; Blade Size: 3; Laryngoscopy View: Grade 1 (full cords); Tube: Endotracheal Tube; Placement: Oral; Tube Type: Cuffed-inflated; Tube Size(mm): 7 MM; Depth of Insertion: 21 CM; Measured From: lips; Attempts: 1; Cuff Infated: Air; Verified By: Direct visualization, Bilateral breath sounds, Chest Auscultation, CO2 Monitor 04/30/22 1147 by Janet Beebe Anes Asst 04/30/22 1423 by Janet Beebe Anes Asst Procedural Site (Incision) 04/30/22; 1405; Right; Arm; xeroform, 4x4, webril,cotton roll,splint,bias; 04/30/22; 1644 04/30/22 1405 by Jose Daniel Meehan RN 04/30/22 1644 by Michel Vasquez, MARY documented in this encounter Social History Tobacco [...] on file documented as of this encounter Progress Notes * Michel Barbour II, MD - 04/30/2022 3:01 PM CDT ANESTHESIA POSTOP EVALUATION NOTE Procedure: OPEN REDUCTION INTERNAL FIXATION RIGHT WRIST (Right Wrist) Damien Pulido is a 72 year old female Patient Vitals for the past 6 hrs: BP Temp Pulse Resp SpO2 Pain Rating Score #1 Pain Scale/Observation 04/30/22 0912 115/86 98 ??F (36.7 ??C) 78 14 95 % 1 N 04/30/22 0930 -- -- 76 -- -- -- -- 04/30/22 1430 145/85 97.3 ??F (36.3 ??C) 94 10 98 % -- -- 04/30/22 1435 146/86 -- 86 9 98 % 6 -- 04/30/22 1440 135/94 -- 92 18 98 % -- -- Anesthesia Type: general ETT Pre-op Diagnosis Codes: * Closed punch fracture distal radius, right, initial encounter [S52.571A] Mental Status: awake Neuro Status: No numbness, tingling or visual disturbances Respiratory Function: natural Cardiac Function: stable Postop Pain: acceptable to the patient Postop Hydration: adequate Postop Nausea: none Assessment: no apparent anesthetic complications, patient tolerated procedure well and no evidence of recall Patient Disposition: Release from Anesthesia Care COMPLICATIONS: No complications documented. * Michel Barbour II, MD - 04/27/2022 11:28 AM CDT ANESTHESIA PREOPERATIVE EVALUATION NOTE Procedure: OPEN REDUCTION INTERNAL FIXATION RIGHT WRIST, POSSIBLE WRIST SPANNING PLATE (Right ) Vitals: Patient Vitals for the past 6 hrs: BP Temp Pulse Resp SpO2 04/27/22 1112 132/81 97.9 ??F (36.6 ??C) 90 18 98 % LMP: No LMP recorded. Patient is postmenopausal. 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 She did receive radiation for cervical cancer. She recently has a fall and broke her rt wrist. No historyof anesthesia complications. No smoking and drug use history. They are to undergo the above indicated procedure with Dr. Mendieta. The patient was assessed in PAT clinic for pre-anesthetic evaluation and optimization. At the time of PAT interview the patient denies: recent chest pain, shortness of breath, cough, pleuritic pain, nausea/vomiting, fevers/chills, new onset pain or weakness. They report functional capacity exceeding 4 METS. She does get intermittent SOB that improves with inhalers. The patient is a current non-smoker. Physical Exam: Orientation X3 Airway/Mallampati Score: I Mouth Opening Distance: 3 fingerwidths Neck ROM: full TM Distance: > 3 FB Teeth: dentures/partials upper Heart: normal - S1 S2 Lungs: clear to ausculation bilaterally Abdomen Exam: normal Review of Systems: History of anesthetic complications: No Sleep Apnea Risk: No Poor Exercise Tolerance: No Recent Chest Pain: No Shortness of Breath: No AICD/Pacemaker: No Renal Disease: No Diagnostic Tests: Lab(s) reviewed: Yes (INR 2.8). PAT evaluation start: (INSERT IN SIDE-BAR IMMEDIATELY AFTER DIAGNOSTIC TESTS. (F2 left / right click to select options below. CTRL-Z to undo) - if BP is poorly controlled (eg SBP >180 or DBP >110) then contact Dr. Farley or LYLE - if patient taking RIA-I or ARB or Entresto then hold ONLY AM dose on DOS unless severe CHF or poorly controlled HTN This evaluation was based on PAT clinic visit I. Perioperative Cardiac Risk Index Stratification based on 2014 ACC/AHA Guidelines for patients undergoing noncardiac surgery Perioperative risk of a Major Adverse Cardiac Event (MACE) during hospitalization. Add one point (0-6) for each positive RCRI (Revised Cardiac Risk Indicator) 1. Is the surgery high-risk? NO 2. History of ischemic heart disease? NO If yes then paste summary of most recent cath / stress tests under Other Additional Findings/Comments section above: 3. History of CHF? no If yes then paste summary of most recent TTE / YOSEF under Other Additional Findings/Comments sectionabove: Murmur? no if yes and without recent echocardiogram then may need TTE contact Dr. Farley or LYLE 4. History of cerebrovascular disease? Prior TIA or stroke no If yes then paste summary of most any relevant neurovascular imaging or carotid duplex results under Other Additional Findings/Comments section above: Carotid bruit ? no if yes and symptomatic then may need carotid duplex - contact Dr. Farley or LYLE 5. Insulin-dependent Diabetes? no 6. Preoperative creatinine > 2 mg/dl? no Baseline Cr? unknown Total RCRI / MACE score 0 Points >= 0.4% If MACE < 1%, no further testing required. Proceed to surgery. Patient is at low risk of MACE. If MACE > 1% Elevated risk. Need to assess the patient's functional capacity. 4 METs = Can walk up a flight of steps or a hill or walk on level ground at 3 mph If > 4 METs. Proceed to surgery. If < 4 METs or unknown functional capacity then discuss with attending, as further workup may beindicated. II. Consults: NO Copy and paste relevant results. Note, patients at risk for Post-op Pulmonary Complications (PPC) with an ARISCAT score >45 may need pulmonary consult. Follow up N/A III. CIEDs Does patient have a CIED (cardiovascular implantable electronic device eg: PM, AICD)? no IV. Anticoagulants Is patient receiving chronic antiplatelet/ anticoagulant medications? What is periop plan ? YES - plan is to verify w/ surgical team (patients with mechanical heart valves OR atrial fib on coumadin with a CHADS- VASc > 7 OR recentVTE within 3 months may need bridging) Follow up N/A V. Previous blood transfusion? no If yes AND EBL > 250ml then patient needs a recent T&S. Order T&S if none recently. If this is a phone review then patient needs to come in PRIOR to DOS for a T&S (call Dr Farley or LYLE) to arrange. Order a 2nd T&S (re-type) for DOS If no previous blood product transfusion AND EBL >250 then order a T&S for DOS only VII. Known ELEAZAR or STOP-BANG> 5 no Snoring, feel Tired, Observed apnea, high blood Pressure, BMI >35, Age > 50, Neck circumference > 18 The patient was educated about potential implications of ELEAZAR on their perioperative course and recommendations for follow-up care and disease management were addressed, including inpatient consult tosleep medicine as above no VIII. Known or suspected difficult airway no and complete previous airway management section above If yes then: update Epic problem list to include: difficult airway and call Dr. Martine or AIC IX. Frailty screen: No data recorded X. Suboxone (Buprenorphine / Naloxone) therapy? N/A XI. Most recent EKG (summarize, do not copy and paste): . EKG needed within 6 months if: (ASA >=3 OR any RCRI) AND non-low risk procedure XII. Additional testing needed within 3 months prior to DOS (if possible, else on DOS) - CBC w/o diff if ASA >= 3 OR expected blood loss >250 OR previously abnormal - BMP if ASA >= 3 AND non low- risk procedure / previously abnormal - CMP (instead of BMP) for patient with chronic liver disease or previously abnormal -PT/ PTT/ INR if recent use of anticoagulants OR scheduled for major vascular procedures including aortic and carotid stents / aneurysm coiling / TIPS Additional testing needed on DOS : - EPOC blood glucose for patients w/ DM - EPOC whole blood K+ for patient with ESRD or poorly controlled K+ Labs ordered today including PAT and surgeon orders: none Labs/ tests ordered or in need of review on DOS: PT/INR and T&S Summary: Damien Pulido is a 72 year old female presenting for OPEN REDUCTION INTERNAL FIXATION RIGHT WRIST, POSSIBLE WRIST SPANNING PLATE (Right ). They have an ASA score of 2 and a RCRI / MACE score of 0 Points >= 0.4% Follow up results - have ALL the above ordered labs and vital signs been reviewed? NO - awaiting consults as above - surgical team comment on warfarin They ARE NOT YET OPTIMIZED - PAT EVALUATION INCOMPLETE Valerie Gonzalez MD 04/27/2022 12:09 PM forthis procedure. Preoperative plan was not discussed w/ PAT attending (date and name). (please note that ALL RESIDENT charts must be discussed with the PAT director or designated person) PLEASE REMEMBER TO REFRESH THE VITAL SIGNS ABOVE BEFORE CLOSING ENCOUNTER PAT evaluation end: Valerie Gonzalez MD Anesthesia PGY-2 04/27/22 12:09 PM ADDENDUM Patient PCP contacted regarding warfarin, recommended to stop tonight until surgery (two days prior). Patient notified, will check INR on DOS. Patient clear for surgery at this time PAT eval complete. Valerie Gonzalez MD Anesthesia PGY-2 04/27/22 2:08 PM ANESTHESIA PLAN ASA Score: 2 NPO Status: Patient instructed to be NPO after midnight, No solids since midnight and No liquids within 2 hours Anesthesia Plan: general Nerve Blocks: interscalene (postop). Planned Induction: intravenous Planned Postop Destination: PACU Anesthetic plan was discussed with: patient Anesthetic Plan discussion was: Consented BMI, Height, Weight Tobacco History Estimated body mass index is 28.55 kg/m?? as calculated from the following: Height as of this encounter: 1.753 m (5' 9 ). Weight as of this encounter: 87.7 kg (193 lb 4.8 oz). Social History Tobacco Use Smoking Status Never Smoker Smokeless Tobacco Never Used Alcohol History Drug History Social History Substance and Sexual Activity Alcohol Use Never Social History Substance and Sexual Activity Drug Use Never Outpatient Medications: Inpatient Medications: Outpatient Medications Marked as Taking for the 04/27/22 encounter (Hospital Encounter) with [facility] 1 Medication Sig Last Dose ??? acetaminophen Take 325 mg by mouth every 6 hours as needed ??? Advair HFA Inhale 1 puff by mouth 2 times daily ??? albuterol HFA INHALE 2 PUFFS BY MOUTH EVERY 4 TO 6 HOURS NEEDED FOR SHORTNESS OF BREATH OR WHEEZING ??? Ascorbic Acid Take 1,000 mg by mouth once daily ??? Cholecalciferol Take 5,000 Units by mouth once daily ??? cyanocobalamin Take 250 mcg by mouth once daily ??? dicyclomine Take 20 mg by mouth 3 times daily ??? furosemide TAKE 1 TABLET BY MOUTH DAILY IN THE MORNING ??? gabapentin Take 800 mg by mouth 2 times daily ??? HYDROcodone-acetaminophen Take 1 (one) tablet by mouth every 6 hours as needed for Pain ??? letrozole Take 2.5 mg by mouth once daily ??? levothyroxine TAKE 1 TABLET BY MOUTH EVERY DAY AT BEDTIME ??? rOPINIRole Take 0.25 mg by mouth at bedtime ??? warfarin Take 5 mg by mouth once daily No current facility-administered medications for this encounter. Allergies: No Known Allergies Relevant Problems No relevant active problems Problem List: There are no problems to display for this patient. Medical History: No past medical history on file. Surgical History: No past surgical history on file. RESEARCH AND DEVELOPMENT CHEMIST Status: No LMP recorded. Patient is postmenopausal. Postmenopausal OB History No obstetric history on file. Covid Vaccine: Lab Results: Recent Labs Component Name 04/09/22 183 WBC 13.2* RBC 4.03 HCT 38.4 HGB 12.9 PLTCOUNT 227 MCV 95.3 MCH 32.0 MCHC 33.6 MPV 10.4 Recent Labs Component Name 04/09/22 1832 PT 29.6* INR 2.8 No results found for requested labs within last 120 days. No results found for requested labs within last 120 days. documented in this encounter Procedure Notes * Abdoul Calvo MD - 04/30/2022 3:13 PM CDTAssociated Order(s): Peripheral Nerve Block Peripheral Nerve Block Procedure: Peripheral Nerve Block Patient Location: PACU Preprocedure Section: Indications: at surgeon's request, at patient's request, procedure for pain and postop pain management. Pre-anesthetic Checklist: Patient identified, IV Checked, Site examined and clear, Risks and benefits discussed, Surgical consent verified, Monitors and equipment, Time-out performed, Informed consent obtained, Pre-op evaluation done, Questions answered/anesthesia questions answered, Allergies reviewed and Removal hand/wrist jewelry Monitors: BP, Pulse Ox, EKG and ETCO2. Patient Condition: awake Patient Position: supine Patient Sedated? No Procedure Section Laterality: right Block Performed: infraclavicular Prep: Chloraprep Strerile Field: gloves, mask, hat/cap, patient draped and sterile ultrasound sleeve Needle Type: nerve stimulator, Echogenic insultaed and short-bevel Needle Gauge: 20 Needle Length: 80 mm Catheter? No Ultrasound Guided? Yes Technique: in plane Visualization: Preliminary scan performed, Important anatomical structures identified, Needle tip visualized throughout the procedure, Target identified, No intraneural or intravascular puncture occurred, Ultrasound image in chart, Local visualized surrounding nerve on ultrasound and Hydrodissection utilized Injection was made incrementally with constant monitoring and aspirations every 5 mL's Injection Assessment: Manometer used/Injection pressure < 15psi Slow fractionated [...] 04/30/2022 3:10 PM. Procedure Total Time: 10 minutes. Staff Section Anesthesia Provider: Abdoul Calvo MD Provider #1: Joey Mulligan DO, Performed the procedure. Additional Comments: I was present the entire time and supervised the nerve block. Ultrasound guidance used. For post op pain management. Supraclavicular block aborted due to a branching artery detected from AA coursing through brachial plexus, switched to infraclavicular block due to concern of intravascular injection.. * Janet Beebe Anes Asst - 04/30/2022 12:02 PM CDTAssociated Order(s): ETT Placement Endotracheal Tube Placement: Patient Location: OR. Intubation Event Date/Time: 04/30/2022 11:47 AM Procedure: intubation ([id number]). Procedure Section: Induction: standard IV Patient Position: sniffing and supine Mask Ventilation: easy. Blade Type: Batsheva Blade Size: 3 Laryngoscopy View: grade 1 (full cords) Tube: endotracheal tube Placement: oral Tube type: cuff - inflated Tube Size (MM): 7 Depth of Insertion (CM): 21 Measured From: lips Cuff Inflated With: air Number of Attempts: 1. Placement Verified By: direct visualization, bilateral breath sounds, chest auscultation and CO2 monitor Tube secured with: adhesive tape. Dentition unchanged? Yes Difficult Airway? No. Procedure Start Time: 04/30/2022 11:47 AM. Staff Section Anesthesia Provider: Wero Ayala DO, Performed the procedure Provider #1: Michel Barbour II, MD. Provider #2: Janet Beebe Anes Asst. documented in this encounter Miscellaneous Notes * Addendum Note - Joey Mulligan DO - 05/01/2022 9:31 AM CDT Addendum created 05/01/22 0931 by Joey Mulligan DO Clinical Note Signed * Addendum Note - Joey Mulligan DO - 05/01/2022 7:54 AM CDT Addendum created 05/01/22 0754 by Joey Mulligan DO Clinical Note Signed * Addendum Note - Abdoul Calvo MD - 04/30/2022 3:18 PM CDT Addendum created 04/30/22 1518 by Abdoul Calvo MD Attestation recorded in Intraprocedure, Charge Capture section accepted, Child order released for aprocedure order, Clinical Note Signed, Diagnosis association updated, Intraprocedure Attestations filed, Intraprocedure Blocks edited, Problem List modified, SmartForm saved * Anesthesia Transfer of Care - Antonietta Beebemayco Fallon Hi Asst - 04/30/2022 2:29 PM CDT ANESTHESIA TRANSFER OF CARE NOTE Today's Date: 04/30/2022 Date of : 1950 Patient: Damien Pulido Procedure(s): OPEN REDUCTION INTERNAL FIXATION RIGHT WRIST Surgeon(s): Primary: Michel Mendieta MD Resident - Assisting: Becky Gandhi MD Preop Diagnosis: Pre-op Diagnois: * Closed punch fracture distal radius, right, initial encounter [S52.571A] Pre-op Meds (From admission, onward) Start Stop Status Route Frequency Ordered 04/30/22 1115 ceFAZolin (Ancef) syringe 2,000 mg 04/30 2314 Verified IV ONCE 04/30/22 1053 04/30/22 1423 HYDROcodone-acetaminophen ([place]) 5-325 MG tablet 1 tablet -- Verified PO ONCE PRN 04/30/22 1424 04/30/22 0915 lactated ringers infusion -- Dispensed IV PRE-OP CONTINUOUS 04/30/22 0907 Post-op Diagnosis: * Closed punch fracture distal radius, right, initial encounter [S52.571A] . No Known Allergies Vitals: No data found. Lines, Drains, and Airways Type Details Placement Removal Peripheral IV Date: 04/30/22; Time: 0915; Orientation: Anterior, Left; Location: Wrist; Gauge: 18 Gauge; Locals: None; Tolerance: Well 04/30/22 0915 by Leonora Alcocer RN ETT Date: 04/30/22; Time: 1147; Placed By: Wero Ayala DO; Vent: easy mask; Induction: Standard IV; Blade Type: Batsheva; Blade Size: 3; Laryngoscopy View: Grade 1 (full cords); Tube: Endotracheal Tube; Placement: Oral; Tube Type: Cuffed-inflated; Tube Size(mm): 7 MM; Depth of Insertion: 21 CM; Measured From: lips; Attempts: 1; Cuff Infated: Air; Verified By: Direct visualization, Bilateral breath sounds, Chest Auscultation, CO2 Monitor 04/30/22 1147 by Janet Beebe Anes Asst 04/30/22 1423 by Janet Beebe Anes Asst Intraprocedure I/O Totals Intake LR (Lactated ringers) 1200.00 mL Total Intake 1200 mL Output Estimated Blood Loss 50 mL Total Output 50 mL Net Net Volume 1150 mL Patient Transfer Location: PACU Transport Airway: supplemental O2 and spontaneous respirations Transport Monitoring: heart rate and continuous pulse oximetry Complications: None Handoff Given? Yes Checklist or Protocol - The cline handoff elements that must be included in the transfer of care checklist include: 1. Identification of patient. 2. Identification of responsible practitioner (PACU nurse or advanced practitioner). 3. Discussion of pertinent medical history. 4. Discussion of the surgical/procedure course (procedure, reason for surgery, procedure performed). 5. Intraoperative anesthetic management and issue/concerns. 6. Expectations/Plans for the early post-procedure period. 7. Opportunity for questions and acknowledgement of understanding of report from the receiving PACUteam. Hi Alberto documented in this encounter Plan of Treatment Not on file documented as of this encounter Procedures Procedure Name Priority Date/Time Associated Diagnosis Comments PERIPHERAL BLOCK Routine 04/30/2022 3:13 PM CDT ENDOTRACHEAL TUBE NOTE Routine 04/30/2022 12:02 PM CDT documented in this encounter Results * Peripheral Nerve Block (04/30/2022 3:13 PM [...] Barbour II, MD GENERAL ANESTHESIA ORDERABLES * ETT LINE PERFORMABLE (04/30/2022 12:02 PM CDT) Narrative Janet Beebe Anes Asst - 04/30/2022 12:02 PM CDT Janet Beebe Anes Asst ? 04/30/2022 12:03 PM Endotracheal Tube Placement: ? Patient Location: OR. Intubation Event Date/Time: ??04/30/2022 11:47 AM Procedure: intubation ([id number]). Procedure Section: ?? Induction: standard IV Patient [...] Michel Barbour II, MD GENERAL ANESTHESIA ORDERABLES documented in this encounter Visit Diagnoses Not on filedocumented in this encounter Administered Medications Inactive Administered Medications - up to 3 most recent administrations Medication Order MAR Action Action Date Dose Rate Site ceFAZolin (Ancef) 2,000 mg in 50 mL IVPB Intravenous, PRN, Starting on Sat04/30/22 at 1200, Until Sat04/30/22 at 1429, Anesthesia Intra-op $ Given 04/30/2022 12:00 PM CDT 2 g dexAMETHasone (Decadron) injection Infiltration, Starting on Sat04/30/22 at 1510, Until Sat04/30/22 at 1514, Anesthesia Intra-op $ Given 04/30/2022 3:10 PM CDT 4 mg dexAMETHasone Sod Phosphate PF injection Intravenous, PRN, Starting on Sat04/30/22 at 1220, Until Sat04/30/22 at 1429, Anesthesia Intra-op $ Given 04/30/2022 12:20 PM CDT 4 mg fentaNYL (PF) (Sublimaze) injection Intravenous, PRN, Starting on Sat04/30/22 at 1143, Until Sat04/30/22 at 1429, Anesthesia Intra-op $ Given 04/30/2022 12:29 PM CDT 25 mcg $ Given 04/30/2022 11:43 AM CDT 50 mcg HYDROmorphone HCl-NaCl 2-0.9 MG/10ML-% SOSY Intravenous, PRN, Starting on Sat04/30/22 at 1359, Until Sat04/30/22 at 1429, Anesthesia Intra-op $ Given 04/30/2022 1:59 PM CDT 0.4 mg lactated ringers infusion Intravenous, CONTINUOUS PRN, Starting on Sat04/30/22 at 1115, Until Sat04/30/22 at 1429, Anesthesia Intra-op $ New Bag/Syringe 04/30/2022 1:37 PM CDT $ New Bag/Syringe 04/30/2022 11:15 AM CDT lidocaine hcl (PF) (Xylocaine MPF) 2 % injection Intravenous, PRN, Starting on Sat04/30/22 at 1143, Until Sat04/30/22 at 1429, Anesthesia Intra-op $ Given 04/30/2022 11:43 AM CDT 100 mg midazolam (Versed) injection Intravenous, PRN, Starting on Sat04/30/22 at 1127, Until Sat04/30/22 at 1429, Anesthesia Intra-op $ Given 04/30/2022 11:42 AM CDT 0.5 mg $ Given 04/30/2022 11:27 AM CDT 0.5 mg ondansetron (Zofran) injection Intravenous, PRN, Starting on Sat04/30/22 at 1359, Until Sat04/30/22 at 1429, Anesthesia Intra-op $ Given 04/30/2022 1:59 PM CDT 4 mg propofol (Diprivan) injection Intravenous, PRN, Starting on Sat04/30/22 at 1143, Until Sat04/30/22 at 1429, Anesthesia Intra-op $ Given 04/30/2022 11:43 AM CDT 170 mg rocuronium (Zemuron) injection Intravenous, PRN, Starting on Sat04/30/22 at 1143, Until Sat04/30/22 at 1429, Anesthesia Intra-op $ Given 04/30/2022 11:43 AM CDT 50 mg ropivacaine (Naropin) 2 MG/ML (0.2%) injection Infiltration, Starting on Sat04/30/22 at 1510, Until Sat04/30/22 at 1514, Anesthesia Intra-op $ Given 04/30/2022 3:10 PM CDT 20 mL sugammadex (Bridion) injection Intravenous, PRN, Starting on Sat04/30/22 at 1417, Until Sat04/30/22 at 1429, Anesthesia Intra-op $ Given 04/30/2022 2:17 PM CDT 200 mg documented in this encounter Care Teams Fixture Maker Relationship Specialty Start Date End Date Chris Avalos PA-C [address] [place] [address] PCP - General 04/25/22 documented as of this encounter
--- OUTSIDE RECORDS SUMMARY | 2024-11-09 18:26 | XMS_ITS | Encounter Summary ---
Author Organization [facility] Address [address] [place] [address] Care Team Providers Care Cvir Tech Name Role Phone Chris Avalos PA-C Primary Care Provide r Encounter Details Date Type Department Care Team (Late st Contact Info) Description 04/25/2022 9:41 AM CDT - 04/25/2022 10:39 AM CDT Hospital Encounter [facility] DIAGNOSTIC RAD [facility] [address] [place] [id number] Michel Mendieta MD [facility]5 [facility] [place] [address] Discharge Disposition: Home or Self Care Social History Tobacco Use Types Packs/Day Years Used Date Smoking Tobacco: Never Smokeless Tobacco: Never Alcohol Use Standard Drinks/Week Comments Never 0 (1 standard drink = 0.6 oz pur e alcohol) Sex and Gender Information Value Date Recorded Sex Assigned at Not on file Gender Identity Not on file Sexual Orientation Not on file documented as of this encounter Medications at [...] mouth once daily 02/21/2022 pancrelipase (CREON 12,000) 51733-[address]38 units capsule rOPINIRole (REQUIP) 0.25 MG tablet Take 0.25 mg by mouth at bedtime 02/07/2022 warfarin (COUMADIN) 2 MG tablet Take 5 mg by mouth once daily 02/20/2022 docusate sodium (COLACE) 100 MG capsule Take 1 (one) capsule by mouth 2 times daily for 7 days 14 capsule 04/30/2022 05/07/2022 HYDROcodone-acetaminop hen (NORCO) 5-325 MG tablet Take 1 (one) tablet by mouth every 6 hours as needed for Pain 12 tablet 04/09/2022 04/30/2022 documented as of this encounter Plan of Treatment Not on file documented as of this encounter Procedures Procedure Name Priority Date/Time Associated Diagnosis Comments XR WRIST RIGHT 3VW OR MORE Routine 04/25/2022 9:42 AM CDT Closed fracture of right wrist, initial encounter documented in this encounter Results * XR WRIST RIGHT 3VW OR MORE (04/25/2022 9:42 AM CDT) Anatomical Region Laterality Modality Wrist / Hand Radiographic Kymberly ging 04/25/2022 11:1 2 AM CDT Impressions 04/25/2022 10:02 PM CDT FINDINGS/IMPRESSION: Right wrist radiographs at 9:34 AM: Comparison is made to study performed on 04/09/2022. A splint obscures soft tissue and osseous detail. Comminuted displaced intra-articular fracture of the distal radius appears not significantly changed in alignment from 04/09/2022. There is also a displaced ulnar styloid process. There is increased foreshortening of the intra-articular comminuted distal radius fracture. The fracture lines are still discernible. The distal fracture fragment appears angulated and displaced dorsally. An ulnar styloid fracture is redemonstrated. Right wrist radiographs at 10:41 AM: Comparison is made to the aforementioned study. A splint obscures soft tissue and osseous detail. There is increased foreshortening and distraction of the distal radius fracture. There is increased dorsal angulation and displacement of the distal radial fragment. I, Dr. JAYESH DAVEY have personally reviewed and interpreted this examination/study. This report was electronically signed by JAYESH DAVEY ??on 04/25/2022 10:02 PM . Narrative 04/25/2022 10:02 PM CDT EXAMINATION: XR WRIST RIGHT 3VW OR MORE, XR WRIST RIGHT 3VW OR MORE HISTORY: S62.101A: Closed fracture of right wrist, initial encounter Procedure Note Jayesh Davey MD - 04/25/2022 EXAMINATION: XR WRIST RIGHT 3VW OR MORE, XR WRIST RIGHT 3VW OR MORE HISTORY: S62.101A: Closed fracture of right wrist, initial encounter FINDINGS/IMPRESSION: Right wrist radiographs at 9:34 AM: Comparison is made to studyperformed on 04/09/2022. A splint obscures soft tissue and osseous detail.Comminuted displaced intra-articular fracture of the distal radius appears not significantly changed in alignment from 04/09/2022. There is also a displaced ulnar styloid process. There is increased foreshortening ofthe intra-articular comminuted distal radius fracture. The fracture linesare still discernible. The distal fracture fragment appears angulated and displaced dorsally. An ulnar styloid fracture is redemonstrated. Right wrist radiographs at 10:41 AM: Comparison is made to the aforementioned study. A splint obscures soft tissue and osseous detail. There is increased foreshortening and distraction of the distal radius fracture. There is increased dorsal angulation and displacement of the distal radial fragment. IDr. JAYESH have personally reviewed and interpreted this examination/study. This report was electronically signed by JAYESH DAVEY on 04/25/2022 10:02 PM . Michel Mendieta MD DIAGNOSTIC IMAGING O RDERABLES documented in this encounter Visit Diagnoses Not on filedocumented in this encounter Care Teams Cvir Tech Relationship Specialty Start Date End Date Chris Avalos PA-C [address] [place], [place] [id number] PCP - General 04/25/22 documented as of this encounter
--- OUTSIDE RECORDS SUMMARY | 2024-11-09 18:26 | XMS_ITS | Encounter Summary ---
Author Organization [facility] Address [address] [place] [address] Care Team Providers Care Ornamental Metal Fabricator Apprentice Name Role Phone Orestes Flores MD Primary Care Provider [phone] Encounter Details Date Type Department Care Team (Latest Contact Info) Description 07/04/2016 Hospital Outpatient Visit Historic [facility] [address] [place] [address] Sebastian Nuno MD [address] [place] [address] Discharge Disposition: Home or Self Care Social [...] on filedocumented in this encounter Care Teams Ornamental Metal Fabricator Apprentice Relationship Specialty Start Date End Date Orestes Flores MD [address] [address] PCP - General 08/26/12 04/24/22 documented as of this encounter
--- OUTSIDE RECORDS SUMMARY | 2024-11-09 18:26 | XMS_ITS | Encounter Summary ---
Author Organization [facility] Address [address] [place] [address] Care Team Providers Care Senior Administrative Support Name Role Phone Chris Avalos PA-C Primary Care Provide r Encounter Details Date Type Department Care Team (Late st Contact Info) Description 04/25/2022 9:30 AM CDT Office Visit [facility] - Orthopedics [address] [place] [address], [facility] [place] [address] Michel Mendieta MD [address] [place] [address] [place] [address] Other closed intra-articular fracture of distal end of right radius, initial encounter (Primary Dx) Social History Tobacco Use Types Packs/Day Years [...] Sign Reading Time Taken Comments Blood Pressure - - Pulse - - Temperature - - Respiratory Rate - - Oxygen Saturation - - Inhaled Oxygen Concentration - - Weight 86.2 kg (190 lb) 04/25/2022 9:40 AM CDT Height - - Body Mass Index 28.06 04/09/2022 6:19 PM CDT documented in this encounter Patient Instructions * Patient Instructions* Michel Mendieta MD - 04/25/2022 11:25 AM CDT Images from the original note were not included. Department of Orthopaedic Surgery Damien Walsh Cucomarlysronni 04/25/2022 Thank you for allowing us to care for you today. You were seen in clinic today for new patient evaluation Please use this note as a school/work excuse: patient had appointment on 04/25/2022. Diagnosis: No diagnosis found. Your weight bearing (WB) status will be NWB of the right upper extremity We recommend that you try the following for your injury: 1. Activities as tolerated 2. icing and tylenol 3. Keep dressing clean and dry 4. Shower: OK to shower,with cover over cast 5. Planning for wrist surgery , will e conatgcted by surgery scheduling for open redeucction fixation of wrist vs wrist spanning fixation Prescriptions: Medications over the counter: - Acetaminophen (Tylenol) 500mg 1-2 tablets every 6 hours as needed for pain, not exceeding daily total of 4000mg. Please note that narcotic medications can consist of same ingredient. - Ibuprofen (Advil) 200mg 1-3 tablets every 8 hours as needed for pain, not exceeding daily total of 2400mg OR Naproxen (Aleve) 220mg 1-2 tablets every 12 hours as needed for pain. Take with food or milk to prevent stomach upset. Do not take any other NSAIDs while taking this medication. Please take the following to promote bone health: Multivitamin 1 tablet daily Vitamin D3 2000 IU 1 tablet daily Calcium 600mg with Vitamin D 400 IU 2 tablets daily A follow up appointment for post op will be made for you.... or if something about your condition significantly changes please inform us . Please call the clinic if you have any questions. [facility] Orthopaedic office contact information: [facility] ([facility]) - [address]st [address] [place] [address] Visit our website at [email or web address] for information about our practice and an interactive health encyclopedia. Please visit [email or web address] to access your health record, ask questions, request medication refills, and request appointments for non-urgent needs after you have configured your [employer] account. If you do not currently have access, please contact one of our staff members or call [phone]. For after hour emergencies, please call and press 0 for the bulk system operator in order to page the orthopedic resident head strength and conditioning coach. documented in this encounter Progress Notes * Michel Mendieta MD - 04/25/2022 3:36 PM CDT Orthopaedic Trauma Surgery Clinic Note Damien Pulido 72 year old female CSN: [id number] Date of service: 04/25/2022 [facility] Damien Pulido is a 72 year old female who had a fall on 04/09/22 and injured her R wrist. She was seen in the [facility] ED and diagnosed with a R distal raidus fracture and was treated with closed reduction and splinting. This is the patient's first visit since being seen in ED on 04/09. Pain has been controlled since the hospital discharge. The pain is located in the wrist. Patient describes the pain as minimal. Symptoms are aggravated by movement. Symptoms improve with rest. She is taking norco forpain. The patient has been NWB of the right upper extremity with splint since She was last seen. Noother orthopedic complaints at this time. Denies any recent fever or chills, tingling, numbness. She is a non-smoker. Review of Systems A complete organ system review completed and is only significant for what is documented in HPI. Allother systems reviewed are negative. Medical History Non-contributory Surgical History Non-contributory MEDICATIONS Current Outpatient Medications on File Prior to Visit Medication Sig Dispense Refill ??? acetaminophen (TYLENOL) 325 MG tablet Take 325 mg by mouth every 6 hours as needed ??? ADVAIR HFA 230-21 MCG/ACT INHALE 1 PUFF BY MOUTH TWICE A DAY ??? albuterol HFA (PROVENTIL; VENTOLIN; PROAIR) 108 (90 Base) MCG/ACT inhaler INHALE 2 PUFFS BY MOUTH EVERY 4 TO 6 HOURS NEEDED FOR SHORTNESS OF BREATH OR WHEEZING ??? albuterol-ipratropium (DUO-NEB) 0.5-2.5 (3) MG/3ML nebulizer solution USE 1 VIAL PER NEBULIZER 4 TIMES A DAY FOR 15 DAYS ??? Ascorbic Acid 1000 MG Take 1,000 mg by mouth once daily ??? Cholecalciferol 125 MCG (5000 UT) Take 5,000 Units by mouth once daily ??? cyanocobalamin 250 MCG tablet Take 250 mcg by mouth once daily ??? dicyclomine (BENTYL) 20 MG tablet Take 20 mg by mouth 3 times daily ??? furosemide (LASIX) 40 MG tablet TAKE 1 TABLET BY MOUTH DAILY IN THE MORNING ??? gabapentin (NEURONTIN) 800 MG tablet Take 800 mg by mouth 2 times daily ??? HYDROcodone-acetaminophen (NORCO) 5-325 MG tablet Take 1 (one) tablet by mouth every 6 hours asneeded for Pain 12 tablet 0 ??? letrozole (FEMARA) 2.5 MG tablet Take 2.5 mg by mouth once daily ??? levothyroxine (SYNTHROID) 100 MCG tablet TAKE 1 TABLET BY MOUTH EVERY DAY AT BEDTIME ??? pancrelipase (CREON 12,000) 06742-[address] units capsule ??? rOPINIRole (REQUIP) 0.25 MG tablet Take 0.25 mg by mouth at bedtime ??? warfarin (COUMADIN) 2 MG tablet TAKE 2 TABLETS (4MG) BY MOUTH DAILY. SEE PROTOCOL. No current facility-administered medications on file prior to visit. Allergies No Known Allergies Family History Non-contributory Social History Social History Tobacco Use ??? Smoking status: Never Smoker ??? Smokeless tobacco: Never Used Substance Use Topics ??? Alcohol use: Never Physical Exam Wt 86.2 kg (190 lb) BMI 28.06 kg/m2 General exam: patient cooperative with exam Constitutional: well developed, well nourished, no acute distress Head: normocephalic, atraumatic ENT: moist oral mucosa Eyes: non-icteric sclera Cardiovascular: regular rate Respiratory: effort normal, no respiratory distress Neurological: awake, AOx4 Psychiatric: no distress, mood and affect normal, behavior normal, judgment and thought content normal. Right upper extremity: I have reviewed the history and pertinent physical findings on clinical examof the patient. I agree with the residents assessment and I personally examined the patient myself with the crucial physical findings as noted . Tender over distal radius with pain on passive ROM.. limited DF and VF N/v intact with intact radial , ulnar and median N. No paresthesia noted. Good ROm of fingers. Xray as noted with residual dorsal displacement noted.and shortening no real improvement from initial views as seen today Plan SAC with volar mold and contour. Discussed plan with pt and reviewed with resident. Re vision reduction still short and with radial deviation and dorsal displacement. Deformity is still present Imaging Results independently reviewed in clinic. XR 3 view(s) R wrist: Demonstrates comminuted and impacted intra-articular distal radius fracture. No improvement in alignment s/p attempted re-reduction and splinting in clinic....will be unsatisfactory alignment but functionally may be okay but feel that ORIF will be bset option at this time Assessment and Plan Other closed intra-articular fracture of distal end of right radius, initial encounter - Plan: ORTHOPAEDIC SURGERY SCHEDULING- [facility] This is a 72 year old female who is 2.5 weeks status post R distal radius fracture (DOI 04/09/22). 1. Ms. Pulido was counseled as to her diagnosis 2. Images reviewed in office with patient 3. She demonstrated understanding 4. Discussed non-operative and operative management with patient. The risks and benefits discussed with patient along with treatment plan and post op planning. Risks include but are not limited to: bleeding, infection, blood clots, neurovascular injury, malunion, nonunion, painful hardware, hardware failure, need for reoperation, risk of anesthesia, risk of life and limb. All questions were answered and explained in manner that was understood by the patient. Patient states would like to move forward with ORIF R distal radius with spanning plate. Office will call to schedule for surgery. Patient's number is [phone]. 5. The patient's weight bearing status will be NWB of the right upper extremity 6. The patient was placed into a new sugar tong splint today. No improvement in fracture alignment 7. Prison Officer ROM of joints along with Vitamin D and calcium supplementation for bone health. 8. Prescriptions: none 9. Follow up for surgery 10. XR needed at post op follow up: Yes - 3 view(s) XR of the R wrist 11. She will call in the interim with any questions or concerns. Michel Mendieta MD 04/25/2022 3:36 PM * Rakesh Choi RN - 04/25/2022 9:50 AM CDT Patient here who was seen in the ER for left distal radius fracture, NWB LUE with splint in place. Pain is minimal,and controlled, denies numbness, tingling, fever or chills. Splint removed ,new sugar tong splint applied. Will schedule for surgery. documented in this encounter Plan of Treatment Not on file documented as of this encounter Visit Diagnoses Diagnosis Other closed intra-articular fracture of distal end of right radius, initial encounter- Primary documented in this encounter Care Teams Senior Administrative Support Relationship Specialty Start Date End Date Chris Avalos PA-C [address] [place] [address] PCP - General 04/25/22 documented as of this encounter
--- OUTSIDE RECORDS SUMMARY | 2024-11-09 18:26 | XMS_ITS | Encounter Summary ---
Author Organization [facility] Address [address] [place] [address] Care Team Providers Care Veterinary Dentist Name Role Phone Chris Avalos PA-C Primary Care Provide r Encounter Details Date Type Department Care Team (Late st Contact Info) Description 04/25/2022 9:19 AM CDT - 04/25/2022 9:40 AM CDT Hospital Encounter [facility] DIAGNOSTIC RAD [facility] [address] [place] [phone] Michel Mendieta MD [facility]5 [facility] [place] [address] Discharge Disposition: Home or Self Care Social [...] Sig Dispensed Refills Start Date End Date ADVAIR HFA 230-21 MCG/ACT Inhale 1 puff by mouth 2 times daily 03/14/2022 albuterol HFA (PROVENTIL; VENTOLIN; PROAIR) 108 (90 Base) MCG/ACT inhaler INHALE 2 PUFFS BY MOUTH EVERY 4 TO 6 HOURS NEEDED FOR SHORTNESS OF BREATH OR WHEEZING 04/14/2021 albuterol-ipratropium (DUO-NEB) 0.5-2.5 (3) MG/3ML nebulizer solution USE 1 VIAL PER NEBULIZER 4 TIMES A DAY FOR 15 DAYS 11/17/2020 furosemide (LASIX) 40 MG tablet Take 40 [...] 10 mg by mouth once daily 02/21/2022 rOPINIRole (REQUIP) 0.25 MG tablet Take 0.25 [...] RDERABLES documented in this encounter Visit Diagnoses Diagnosis Closed fracture of right wrist, initial encounter documented in this encounter Care Teams Veterinary Dentist Relationship Specialty Start Date End Date Chris Avalos PA-C [address] [facility] [address] [place] [address] PCP - General 04/25/22 documented as of this encounter
--- OUTSIDE RECORDS SUMMARY | 2024-11-09 18:26 | XMS_ITS | Encounter Summary ---
Author Organization [facility] Address [address] [place] [address]. [place], [place] [id number] [place] [address] Care Team Providers Care Sys Dir Name Role Phone Unavailable Primary Care Provider Unavailabl e Encounter Details Date Type Department Care Team (Late st Contact Info) Description 06/15/2010 Abstract [facility] CONVERSION [address] [place] [address] Gabino Atkins MD [place] [address] [place] [address] Social History Tobacco Use Types Packs/Day Years [...]
--- OUTSIDE RECORDS SUMMARY | 2024-11-09 18:26 | XMS_ITS | Encounter Summary ---
Author Organization [facility] Address [address] [place] [address] Care Team Providers Care Boatswain'S Mate Name Role Phone Chris Avalos PA-C Primary Care Provide r Reason for Visit * Reason Comments Injury Wrist Encounter Details Date Type Department Care Team (Late st Contact Info) Description 06/06/2022 9:15 AM CDT Office Visit [facility] - Orthopedics [address] [place] [address], [facility] [place] [address] Michel Mendieta MD [address] [place] [address] [place] [address] Other closed intra-articular fracture of distal end of right radius with routine healing, subsequent encounter (Primary Dx) Social History Tobacco Use [...] - Inhaled Oxygen Concentration - - Weight 87.5 kg (193 lb) 06/06/2022 9:06 AM CDT Height 175.3 cm (5' 9 ) 06/06/2022 9:06 AM CDT Body Mass Index 28.5 06/06/2022 9:06 AM CDT documented in this encounter Functional [...] No 04/30/2022 documented as of this encounter Patient Instructions * Patient Instructions* Alvin Moe MD - 06/06/2022 9:48 AM CDT Images from the original note were not included. Department of Orthopaedic Surgery Damien Pulido 06/06/2022 Thank you for allowing us to care for you today. You were seen in clinic today for post-op follow up Please use this note as a school/work excuse: patient had appointment on 06/06/22 . Diagnosis: Other closed intra-articular fracture of distal end of right radius with routine healing, subsequent encounter Your weight bearing (WB) status will be 5-10lb limit of the right upper extremity We recommend that you try the following for your injury: 1. Activities as tolerated 2. Okay to take off exos splint to apply wristbands at work Prescriptions: none Medications over the counter: - Acetaminophen (Tylenol) [...] Vitamin D 400 IU 2 tablets daily Please make a follow up appointment for 1 month or if something about your condition significantly changes. Please call the clinic if you have any questions. [facility] office contact information: [facility] ([facility]) - 1st Floor [address] [place] [address] Visit our website at [email or web address] for information about our practice and an interactive health encyclopedia. Please visit [email or web address] to access your health record, ask questions, request medication refills, and request appointments for non-urgent needs after you have configured your [employer] account. If you do not currently have access, please contact one of our staff members or call [phone]. For after hour emergencies, please call and press 0 for the flaker operator in order to page the orthopedic resident bromination equipment operator. documented in this encounter Progress Notes * Alvin Moe MD - 06/06/2022 9:48 AM CDT Orthopaedic Trauma Surgery Clinic Note Damien Pulido 72 year old female [facility]: [id number] Date of service: 06/06/2022 HPI Damien Pulido is a 72 year old female who had a right distal radius fracture and was treated withORIF on 04/30/22. Patient was last seen in clinic on 05/09/22. Pain has been controlled since the last clinic visit. The pain is located about the right wrist. Patient describes the pain as sore and tight. Symptoms are aggravated by activity. Symptoms improve with rest. She is taking nothing for pain. The patient has been limited weight bearing of the right upper extremity with 5lb weight limit since She was last seen. No other orthopedic complaints at this time. Denies any recent fever or chills, tingling, numbness. She is a nonsmoker. 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 She hasbeen doing PT and states she is improving. Review of Systems A complete organ system review completed and is only significant for what was mentioned in HPI. Medical History Past Medical History: Diagnosis Date ??? Disorder of thyroid ??? Malignant neoplasm of right breast lumpectomy and then mastectomy ??? Snoring Non-contributory Surgical History Past Surgical History: Procedure Laterality Date ??? Appendectomy ??? Cholecystectomy ??? Wrist Fracture Repair Right 04/30/2022 Right; OPEN REDUCTION INTERNAL FIXATION RIGHT WRIST Non-contributory MEDICATIONS Current Outpatient Medications on File Prior to Visit Medication Sig Dispense Refill ??? acetaminophen (TYLENOL) 325 MG tablet Take 325 mg by mouth every 6 hours as needed ??? ADVAIR HFA 230-21 MCG/ACT Inhale 1 puff by mouth 2 times daily ??? albuterol HFA (PROVENTIL; VENTOLIN; PROAIR) 108 (90 Base) MCG/ACT inhaler INHALE 2 PUFFS BY MOUTH EVERY 4 TO 6 HOURS NEEDED FOR SHORTNESS OF BREATH OR WHEEZING ??? albuterol-ipratropium (DUO-NEB) 0.5-2.5 (3) MG/3ML nebulizer solution USE 1 VIAL PER NEBULIZER 4 TIMES A DAY FOR 15 DAYS (Patient not taking: Reported on 04/30/2022) ??? Ascorbic Acid 1000 MG Take 1,000 mg by mouth once daily ??? Cholecalciferol 125 MCG (5000 UT) Take 5,000 Units by mouth once daily ??? cyanocobalamin 250 MCG tablet Take 250 mcg by mouth once daily ??? dicyclomine (BENTYL) 20 MG tablet Take 20 mg by mouth 3 times daily ??? furosemide (LASIX) 40 MG tablet Take 40 mg by mouth once daily ??? gabapentin (NEURONTIN) 800 MG tablet Take 800 mg by mouth 2 times daily ??? HYDROcodone-acetaminophen (NORCO) 5-325 MG tablet Take 1 (one) tablet by mouth every 6 hours asneeded (Patient not taking: Reported on 05/09/2022) 28 tablet 0 ??? letrozole (FEMARA) 2.5 MG tablet Take 2.5 mg by mouth once daily ??? levothyroxine (SYNTHROID) 100 MCG tablet Take 100 mcg by mouth at bedtime ??? montelukast (SINGULAIR) 10 MG tablet Take 10 mg by mouth once daily ??? pancrelipase (CREON 12,000) 10455-37777 units capsule (Patient not taking: No sig reported) ??? rOPINIRole (REQUIP) 0.25 MG tablet Take 0.25 mg by mouth at bedtime ??? warfarin (COUMADIN) 2 MG tablet Take 5 mg by mouth once daily No current facility-administered medications on file prior to visit. Allergies No Known Allergies Family History family history is not on file. Non-contributory Social History Social History Tobacco Use ??? Smoking status: Never Smoker ??? Smokeless tobacco: Never Used Substance Use Topics ??? Alcohol use: Yes Comment: social Physical Exam Ht 1.753 m (5' 9 ) Wt 87.5 kg (193 lb) General exam: patient cooperative with exam Constitutional: well developed, well nourished, no acute distress Head: normocephalic, atraumatic ENT: moist oral mucosa Eyes: non-icteric sclera Cardiovascular: regular rate Respiratory: effort normal, no respiratory distress Neurological: awake, AOx4 Psychiatric: no distress, mood and affect normal, behavior normal, judgment and thought content normal. Right upper extremity: Incision: clean, dry, and intact without evidence of erythema, dehiscence, or drainage. There is mild tenderness of the volar distal radius. ROM of wrist is limited secondary to stiffness. intact motor R/M/U/AIN/PIN, Sensation: intact to light touch in R/M/U nerve distributions distally, 2+ Radial pulse. Imaging Results independently reviewed in clinic. XR 3 view(s) right wrist: Demonstrates good alignment with interval healing of the distal radius with progression of callus formation. Hardware is intact with no evidence loose or broken screws. Assessment and Plan Other closed intra-articular fracture of distal end of right radius with routine healing, subsequent encounter This is a 72 year old female who is 5 weeks status post right distal radius ORIF. 1. Ms. Pulido was counseled as to her diagnosis 2. Images reviewed in office with patient 3. She demonstrated understanding 4. The patient's weight bearing status will be 5-10lb weight limit of the right upper extremity 5. Continue Exos splint when out and about 6. Utilization Review Coordinator ROM of joints along with Vitamin D and calcium supplementation for bone health. 7. Work: limited to light duty - lifting no greater than 10 pounds 8. Prescriptions: none 9. Follow up in 1 month 10. XR needed at follow up: Yes - 3 view(s) XR of the right wrist 11. She will call in the interim with any questions or concerns. Alvin Moe MD 06/06/2022 9:48 AM Associated attestation - Michel Mendieta MD - 06/11/2022 11:09 AM CDT I have reviewed the history and pertinent physical findings on clinical exam of the patient. I agree with the residents assessment and I personally examined the patient myself with the crucial physical findings as noted . Minimally Tender over distal radius with dec. pain on passive ROM.. limited DF and VFbut is omproving with her PT N/v intact with intact radial , ulnar and median N. No paresthesia noted. Good ROm of fingers. Xray as noted distal radius fx with no dorsal displacement noted. And cllous noted with no change in post op alignment. Plan to begin to wean out of EXOS around the house. Continue with PT. Discussed plan with pt and reviewed with resident. documented in this encounter Plan of Treatment Not on file documented as of this encounter Visit Diagnoses Diagnosis Other closed intra-articular fracture of distal end of right radius with routine healing, subsequent encounter- Primary documented in this encounter Care Teams Boatswain'S Mate Relationship Specialty Start Date End Date Chris Avalos PA-C [address] [place] [address] PCP - General 04/25/22 documented as of this encounter
--- OUTSIDE RECORDS SUMMARY | 2024-11-09 18:26 | XMS_ITS | Encounter Summary ---
Author Organization [facility] Address [address] [place] [address]. [place], [place] [address] [place] [address] Care Team Providers Care Nurse Staff Community [facility] Name Role Phone Unavailable Primary Care Provider Unavailabl e Encounter Details Date Type Department Care Team (Late st Contact Info) Description 08/28/2008 Abstract [facility] CONVERSION [address] [place] [address] oSy Barriga MD [address] [place] [address] Social History Tobacco Use Types Packs/Day Years [...]
--- OUTSIDE RECORDS SUMMARY | 2024-11-09 18:26 | XMS_ITS | Encounter Summary ---
Author Organization [facility] Address [address] [place] [address]. [place], [place] [address] [place] [address] Care Team Providers Care Stretcher Leveler Operator Name Role Phone Unavailable Primary Care Provider Unavailabl e Encounter Details Date Type Department Care Team (Late st Contact Info) Description 09/16/2009 Abstract [facility] CONVERSION [address] [place] [address] Soy Barriga MD [address] [place] [address] Social History Tobacco Use Types Packs/Day Years [...]
--- OUTSIDE RECORDS SUMMARY | 2024-11-09 18:26 | XMS_ITS | Encounter Summary ---
Author Organization [facility] Address [address] [place] [address]. [place], [place] [address] [place] [address] Care Team Providers Care Press Set Up Name Role Phone Unavailable Primary Care Provider Unavailabl e Encounter Details Date Type Department Care Team (Late st Contact Info) Description 08/15/2007 Abstract [facility] CONVERSION [address] [place], [place] [id number] Mary Mckeon, MONUMENT CARVER [address] [place] [address] Social History Tobacco Use Types Packs/Day Years [...]
--- OUTSIDE RECORDS SUMMARY | 2024-11-09 18:26 | XMS_ITS | Encounter Summary ---
Author Organization [facility] Address [address] [facility] [place] [address] Care Team Providers Care Pediatric Nephrologist Name Role Phone Chris Avalos PA-C Primary Care Provide r Encounter Details Date Type Department Care Team (Late st Contact Info) Description 05/09/2022 8:39 AM CDT - 05/09/2022 11:59 PM CDT Hospital Encounter [facility] [address] [facility] [address] Michel Mendieta MD [facility] [facility] [place] [address] Discharge Disposition: Home or Self Care Social [...] mouth once daily 02/21/2022 pancrelipase (CREON 12,000) 63257-14719 units capsule rOPINIRole (REQUIP) 0.25 MG tablet Take 0.25 mg by mouth at bedtime 02/07/2022 warfarin (COUMADIN) 2 MG tablet Take 5 mg by mouth once daily 02/20/2022 documented as of this encounter Plan of Treatment Not on file documented as of this encounter Procedures Procedure Name Priority Date/Time Associated Diagnosis Comments XR WRIST RIGHT 3VW OR MORE Routine 05/09/2022 8:52 AM CDT Other closed intra-articular fracture of distal end of right radius, initial encounter documented in this encounter Results * XR WRIST RIGHT 3VW OR MORE (05/09/2022 8:52 AM CDT) Anatomical Region Laterality Modality Wrist / Hand Radiographic Kymberly ging 05/09/2022 9:15 AM CDT Impressions 05/09/2022 9:19 AM CDT FINDINGS/IMPRESSION: Redemonstrated open reduction and internal fixation of the comminuted distal radial fracture. The hardware appears intact. The alignment is unchanged. Redemonstrated an ulnar styloid fracture. Report drafted by Giorgi Fagan MD (Band Aid Machine Operator). I, Dr. LORNE DENNIS MD have personally reviewed and interpreted this examination/study. This report was electronically signed by LORNE DENNIS MD ??on 05/09/2022 9:19 AM . Narrative 05/09/2022 9:19 AM CDT EXAMINATION: XR WRIST RIGHT 3VW OR MORE HISTORY: S52.571A: Other closed intra-articular fracture of distal end of right radius, initial encounter COMPARISON: Right wrist x-ray 04/30/2022 Procedure Note Lorne Dennis MD - 05/09/2022 EXAMINATION: XR WRIST RIGHT 3VW OR MORE HISTORY: S52.571A: Other closed intra-articular fracture of distal endof right radius, initial encounter COMPARISON: Right wrist x-ray 04/30/2022 FINDINGS/IMPRESSION: Redemonstrated open reduction and internal fixation of the comminuted distal radial fracture. The hardware appears intact. The alignment is unchanged. Redemonstrated an ulnar styloid fracture. Report drafted by Giorgi Fagan MD (Band Aid Machine Operator). I, Dr. LORNE DENNIS MD have personally reviewed and interpreted this examination/study. This report was electronically signed by LORNE DENNIS MD on05/09/2022 9:19 AM . Michel Mendieta MD DIAGNOSTIC IMAGING [facility] documented in this encounter Visit Diagnoses Diagnosis Other closed intra-articular fracture of distal end of right radius, initial encounter documented in this encounter Care Teams Pediatric Nephrologist Relationship Specialty Start Date End Date Chris Avalos PA-C [address] [place] [address] PCP - General 04/25/22 documented as of this encounter
--- OUTSIDE RECORDS SUMMARY | 2024-11-09 18:26 | XMS_ITS | Encounter Summary ---
Author Organization [facility] Address [address] [facility] [place] [address] Care Team Providers Care Lightning Protection Installer Name Role Phone Chris Avalos PA-C Primary Care Provide r Encounter Details Date Type Department Care Team (Late st Contact Info) Description 07/04/2022 9:45 AM CDT Office Visit [facility] - Orthopedics [address] [place] [address], [facility] [place] [address] Michel Mendieta MD [address] [place] [address] [place] [address] Other closed intra-articular fracture of distal end [...] (193 lb) 07/04/2022 9:36 AM CDT Height - - Body Mass Index 28.5 06/06/2022 9:06 AM [...] this encounter Patient Instructions * Patient Instructions* Martin Castro - 07/04/2022 9:42 AM CDT Images from the original note were not included. Department of Orthopaedic Surgery Damien Pulido 07/04/2022 Thank you for allowing us to care for you today. You were seen in clinic today for post-op follow up Please use this note as a school/work excuse: patient had appointment on 07/04/2022 Diagnosis: Other closed intra-articular fracture of distal end of right radius with routine healing, subsequent encounter Your weight bearing (WB) status will be 10lb lifting limitation of the right upper extremity We recommend that you try the following for your injury: Activities as tolerated Continue working on home exercises Shower: OK to shower Prescriptions: Medications over the counter: - Acetaminophen [...] Please make a follow up appointment for 6 weeks or if something about your condition significantly changes. Please call the clinic if you have any questions. [facility] Orthopaedic office contact information: [facility] ([facility]) - 1st Floor [address] [place] [address] Visit our website at [email or web address] for information about our practice and an interactive health encyclopedia. Please visit [employer] to access your health record, ask questions, request medication refills, and request appointments for non-urgent needs after you have configured your [employer] account. If you do not currently have access, please contact one of our staff members or call [phone]. For after hour emergencies, please call [phone] and press 0 for the carton packaging machine operator in order to page the orthopedic resident honing machine operator semiautomatic. documented in this encounter Progress Notes * Michel Mendieta MD - 07/05/2022 1:57 PM CDT Diagnosis/Procedures 1.) S/p right distal radius ORIF on 04/30/22 Time since surgery: 9 weeks HPI Date of this clinic visit: 07/04/2022 Damien Pulido is a 72 year old female who is 9 weeks s/p the above stated procedure. She notes intermittent discomfort at the radial aspect of her wrist, especially with gripping objects or twisting/turning lids. She overall feels that she is improving. She is not longer taking pain medication. She has stopped wearing her exos brace. She recently completed her course of physical therapy, and she continues to work on home exercises. The patient notes that her range of motion has returned to baseline, but that it is still limited compared to her left. Her right upper extremity has been swollen consistently since a prior lymph node dissection for malignancy. She denies any new numbness or tingling. Pertinent Background Information: Smoker?: No Objective Weight 87.5 kg (193 lb), not currently . PMHx Past Medical History: Diagnosis Date ??? Disorder of thyroid ??? Malignant neoplasm of right breast lumpectomy and then mastectomy ??? Snoring PSHx Past Surgical History: Procedure Laterality Date ??? Appendectomy ??? Cholecystectomy ??? Wrist Fracture Repair Right 04/30/2022 Right; OPEN REDUCTION INTERNAL FIXATION RIGHT WRIST Social Hx Social History Tobacco Use ??? Smoking status: Never Smoker ??? Smokeless tobacco: Never Used Substance Use Topics ??? Alcohol use: Yes Comment: social Family Hx family history is not on file. Allergies No Known Allergies Medications Current Outpatient Medications Medication ??? acetaminophen (TYLENOL) 325 MG tablet ??? ADVAIR HFA 230-21 MCG/ACT ??? albuterol HFA (PROVENTIL; VENTOLIN; PROAIR) 108 (90 Base) MCG/ACT inhaler ??? albuterol-ipratropium (DUO-NEB) 0.5-2.5 (3) MG/3ML nebulizer solution ??? Ascorbic Acid 1000 MG ??? Cholecalciferol 125 MCG (5000 UT) ??? cyanocobalamin 250 MCG tablet ??? dicyclomine (BENTYL) 20 MG tablet ??? furosemide (LASIX) 40 MG tablet ??? gabapentin (NEURONTIN) 800 MG tablet ??? HYDROcodone-acetaminophen (NORCO) 5-325 MG tablet ??? letrozole (FEMARA) 2.5 MG tablet ??? levothyroxine (SYNTHROID) 100 MCG tablet ??? montelukast (SINGULAIR) 10 MG tablet ??? pancrelipase (CREON 12,000) 46808-03006 units capsule ??? rOPINIRole (REQUIP) 0.25 MG tablet ??? warfarin (COUMADIN) 2 MG tablet No current facility-administered medications for this visit. Review of Systems A comprehensive review of systems was taken on patient registration forms and significant findings mentioned in HPI Physical Exam General: Alert, cooperative, in no acute distress. CV: distal pulses equal and symmetric Resp: no grossly increased labor of breathing Musculoskeletal: Right upper extremity: -Appearance: surgical incision clean and dry without erythema or drainage -Tenderness: mild over distal radius -ROM: 45 degrees of flexion and extension at wrist, near full pronation and supination -Motor: Fires EPL/FPL/IO, Flexes/extends wrist, fires deltoid -Sensation: SILT in Axillary/Median/Ulnar/Radial distributions -Vascular: 2+ radial pulse with fingers warm and well perfused Imaging - Xrays of the right wrist demonstrate interval callus formation at distal radius fracture, hardware is intact and in place without signs of loosening or failure. - Please see separate radiographic report for formal read by Radiology Assessment/Plan: 72 year old female s/p right distal radius ORIF on 04/30/22 1. Patient was counseled to the nature of their diagnosis and demonstrated understanding. Questionssolicited and answered. 2. Imaging was reviewed with the patient in clinic. 3. 10lb lifting restriction of the RUE 4. Continue working on home range of motion exercises. 5. High School Business Teacher ROM of joints along with Vitamin D and calcium supplementation for bone health. 6. Return to clinic in 6 weeks with x-rays of ri * Martin Castro - 07/04/2022 9:50 AM CDT Orthopedic Surgery Clinic Note Damien Pulido, 72 year old, female : 1950 CSN: [id number] Primary Care Physician: Chris Avalos PA-C 1. ght wrist. Martin Castro 07/04/2022 9:51 AM * Rakesh Choi RN - 07/04/2022 9:39 AM CDT Patient doing well, remains on < 10lbs WB RUE. Pain is minimal and controlled, takes Advil PRN. Denies new numbness, tingling, fever or chills. Good wrist ROM noted. Done with PT, does home exercises. documented in this encounter Plan of Treatment Not on file documented as of this encounter Visit Diagnoses Diagnosis Other closed intra-articular fracture of distal end of right radius with routine healing, subsequent encounter- Primary documented in this encounter Care Teams Lightning Protection Installer Relationship Specialty Start Date End Date Chris Avalos PA-C [address] [place] [address] PCP - General 04/25/22 documented as of this encounter
--- OUTSIDE RECORDS SUMMARY | 2024-11-09 18:26 | XMS_ITS | Encounter Summary ---
Author Organization [facility] Address [address] [facility] [place] [address] Care Team Providers Care Care Aide Name Role Phone Chris Avalos PA-C Primary Care Provide r Encounter Details Date Type Department Care Team (Late st Contact Info) Description 06/28/2022 Orders Only [facility] - Orthopedics [address] [place] [address], [place] [address] Michel Mendieta MD [address] [place] [address] [place] [address] Other closed intra-articular fracture of distal end [...] on file documented as of this encounter Results * XR WRIST RIGHT 3VW OR MORE (07/04/2022 9:33 AM CDT) Anatomical Region Laterality Modality Wrist / Hand Radiographic Kymberly ging 07/04/2022 9:44 AM CDT Impressions 07/04/2022 10:06 AM CDT IMPRESSION: 1.Internally fixated distal radial fracture, unchanged in alignment. 2.Ulnar styloid fracture, unchanged in alignment. Report dictated by Dawn Woodward MD (vice president digital strategist). I, Lorne Ann MD have personally reviewed and interpreted this examination/study. > Interpreting Provider: Lorne Ann MD on 07/04/2022 10:06 AM Narrative 07/04/2022 10:06 AM CDT PROCEDURE: ??XR WRIST RIGHT 3VW OR MORE, DATE/TIME OF EXAM: ??07/04/2022 9:33 AM, LOCATION ??[facility] INDICATION: S52.571D: Other closed intra-articular fracture of [...] MORE, DATE/TIME OF EXAM: 29:33 AM, LOCATION [facility] INDICATION: S52.571D: Other closed intra-articular fracture of [...] alignment. Report dictated by Dawn Woodward MD (vice president digital strategist). I, Lorne Ann MD have personally reviewed and interpreted this examination/study. > Interpreting Provider: Lorne Ann MD on 07/04/2022 10:06 AM Michel Mendieta MD DIAGNOSTIC IMAGING [facility] documented in this encounter Visit Diagnoses Diagnosis Other closed intra-articular fracture of distal end of right radius with routine healing, subsequent encounter- Primary Other closed intra-articular fracture of distal end of right radius with routine healing, subsequent encounter documented in this encounter Care Teams Care Aide Relationship Specialty Start Date End Date Chris Avalos PA-C [address] [place] [address] PCP - General 04/25/22 documented as of this encounter
--- OUTSIDE RECORDS SUMMARY | 2024-11-09 18:26 | XMS_ITS | Encounter Summary ---
Author Organization [facility] Address [address] [place] [address]. [place], [place] [id number] [place] [address] Care Team Providers Care Carpenters Supervisor Name Role Phone Unavailable Primary Care Provider Unavailabl e Encounter Details Date Type Department Care Team (Late st Contact Info) Description 11/08/[address] [facility] Diagnostic Imaging [address] [place] [address] Soy Barriga MD [address] [place] [address] Social History Tobacco Use Types Packs/Day Years [...] encounter Visit Diagnoses Diagnosis Malignant neoplasm of breast (female) (CMS/HCC HHS/HCC) Malignant neoplasm of breast (female), unspecified site documented in this encounter
--- OUTSIDE RECORDS SUMMARY | 2024-11-09 18:26 | XMS_ITS | Encounter Summary ---
Author Organization [facility] Address [address] [place] [address]. [place], [place] [address] [place] [address] Care Team Providers Care Cylinder Checker Name Role Phone Unavailable Primary Care Provider Unavailabl e Encounter Details Date Type Department Care Team (Late st Contact Info) Description 08/14/2016 Abstract [facility] [address] [place] [address] Yesenia Pagan, DIGITAL DESIGNER [address] [place] [id number] Social History Tobacco Use Types Packs/Day [...]
--- OUTSIDE RECORDS SUMMARY | 2024-11-09 18:26 | XMS_ITS | Encounter Summary ---
Author Organization [facility] Address [address] [facility] [place] [address] Care Team Providers Care Explosive Ordnance Disposal Specialist Name Role Phone Chris Avalos PA-C Primary Care Provide r Encounter Details Date Type Department Care Team (Late st Contact Info) Description 04/25/2022 10:40 AM CDT - 04/25/2022 11:59 PM CDT Hospital Encounter [facility] DIAGNOSTIC RAD [facility] [address] [place] [id number] Michel Mendieta MD [facility] [place] [address] Discharge Disposition: Home or Self Care Social [...] mouth once daily 02/21/2022 pancrelipase (CREON 12,000) 55236-[address] units capsule rOPINIRole (REQUIP) 0.25 MG tablet [...] WRIST RIGHT 3VW OR MORE Routine 04/25/2022 10:47 AM CDT Closed fracture of right wrist, initial encounter documented in this encounter Results * XR WRIST RIGHT 3VW OR MORE (04/25/2022 10:47 AM CDT) Anatomical Region Laterality Modality Wrist [...] encounter documented in this encounter Care Teams Explosive Ordnance Disposal Specialist Relationship Specialty Start Date End Date Chris Avalos PA-C [address] [place], [place] [id number] PCP - General 04/25/22 documented as of this encounter
--- OUTSIDE RECORDS SUMMARY | 2024-11-09 18:26 | XMS_ITS | Encounter Summary ---
Author Organization [facility] Address [address] [place] [address] Care Team Providers Care Environmental Health Sanitarian Name Role Phone Orestes Flores MD Primary Care Provider [phone] Reason for Visit * Reason Comments Fall Pt was standing on p aver blocks, lost her balance and fell back, catching herself with R wrist. Denies hitting head. Was seen at [facility], was told that R wrist is fractured. Also endorses pain to tailbone. Fall occurred at 1530. Encounter Details Date Type Department Care Team (Late st Contact Info) Description 04/09/2022 6:42 PM CDT - 04/09/2022 9:35 PM CDT Emergency [facility] [address] [place] [address] Virgilio Ospina MD [address] [facility] [place] [address] Right wrist pain; Closed fracture of distal end of right radius, unspecified fracture morphology, initial encounter; Closed displaced fracture of styloid process of right ulna with delayed healing, subsequent encounter; Fall, initial encounter Discharge Disposition: Home or Self Care Social [...] Sign Reading Time Taken Comments Blood Pressure 123/97 04/09/2022 6:19 PM CDT Pulse 97 04/09/2022 6:19 PM CDT Temperature 36.6 ??C (97.8 ??F) 04/09/2022 6:19 PM CD T Respiratory Rate 18 04/09/2022 6:19 PM CDT Oxygen Saturation 99% 04/09/2022 6:19 PM CDT Inhaled Oxygen Concentration - - Weight 86.2 kg (190 lb) 04/09/2022 6:19 PM CDT Height 175.3 cm (5' 9 ) 04/09/2022 6:19 PM CDT Body Mass Index 28.06 04/09/2022 6:19 PM CDT documented in this encounter Discharge Instructions * Discharge Instructions* Luana Talbert PA-C - 04/09/2022 9:15 PM CDT Do not lift any items with your right arm. Keep your splint clean and dry. Wear sling for comfort. Alternate ibuprofen 600 mg and tylenol 500 mg every four hours as needed for pain. Take norco every 6 hours for severe pain (this contains acetaminophen, so be sure to not take more than 4000 mg of sasha taminophen in 24 hours). Follow up with Dr. Mendieta in 1 week. * Attachments The following attachments cannot be sent through Care Everywhere. * Fracture, Wrist, General (Trinidadian) documented in this encounter Medications at Time [...] mg by mouth 2 times daily 02/11/2022 levothyroxine (SYNTHROID) 100 MCG tablet Take 100 mcg by mouth at bedtime 03/26/2022 montelukast (SINGULAIR) 10 MG tablet Take 10 mg by mouth once daily 02/21/2022 rOPINIRole (REQUIP) 0.25 MG tablet Take 0.25 mg by mouth at bedtime 02/07/2022 warfarin (COUMADIN) 2 MG tablet Take 5 mg by mouth once daily 02/20/2022 HYDROcodone-acetaminop hen (NORCO) 5-325 MG tablet Take 1 (one) tablet by mouth every 6 hours as needed for Pain 12 tablet 04/09/2022 04/30/2022 documented as of this encounter Procedure Notes * Arline Gonzales MD - 04/09/2022 9:35 PM CDT ORTHOPEDICS PROCEDURE NOTE: CLOSED REDUCTION AND SPLINTING PATIENT NAME: Damien Pulido DATE OF PROCEDURE: 04/10/2022 PROCEDURE:??Closed reduction of right distal radius PERMIT:?? The procedure and its risks and benefits were discussed at length with the patient. Consent was obtained. INDICATION:?? Displaced fracture of the right distal radius PHYSICIAN:?? Arline Gonzales MD DESCRIPTION:?? The patient required reduction of the fracture. The patient was counseled as to the risks and benefits of the procedure. They demonstrated understanding. Questions about the procedure were solicited and answered. Consent wasobtained and the site was marked. After adequate pain control was obtained,the reduction was carried out. A splint was then applied. The patient tolerated the procedure well.Post reduction films are available and show adequate reduction. Patient alert and resting in bed.??Capillary refill distal to the splint is less than two seconds. BLOOD LOSS:?? None COMPLICATIONS:?? None DISPOSITION:?? The patient should have adequate pain control. In the interm the caregiver(s) may call with any questions or concerns. NWB RUE, rest of care per consult note. documented in this encounter Consult Notes * Arline Gonzales MD - 04/09/2022 9:05 PM CDTAssociated Order(s): IP CONSULT TO ORTHOPEDICS [facility] Orthopedic Trauma Surgery Consultation Note Damien Pulido, 72 year old, female : 1950 CSN: [id number] Primary Care Physician: Orestes Flores MD Chief Complaint Chief Complaint Patient presents with ??? Fall Pt was standing on management instructor blocks, lost her balance and fell back, catching herself with R wrist. Denies hitting head. Was seen at [facility], was told that R wrist is fractured. Also endorses pain to tailbone. Fall occurred at 1530. Admission Date/Time: 04/09/2022 6:42 PM Today's Date/Time: 04/09/2022 10:09 PM Time at Bedside: 1900 HPI Consulting Service: ED U Orthopedic Trauma Surgery consulted for evaluation/management of: right distal radius fracture Damien Pulido is a 72 year old female who presented to [facility] on 04/09/2022 after sustaining ground level fall. Patient presents with right arm pain. Patient denies head trauma and is not amnestic to the event. Patient wasambulatory on the scene. Patient describes the pain as and rated as mild, without radiation. Symptoms are aggravated by movement. Symptoms improve with rest. Patient denies numbness/paresthesias. PMHx No past medical history on file. PSHx No past surgical history on file. Social Hx Social History Tobacco Use ??? Smoking status: Never Smoker ??? Smokeless tobacco: Never Used Substance Use Topics ??? Alcohol use: Never Family Hx family history is not on file. Allergies No Known Allergies Medications Current Facility-Administered Medications Medication ??? 0.9% NaCl injection 3 mL And ??? 0.9% NaCl injection 1-10 mL Current Outpatient Medications Medication ??? HYDROcodone-acetaminophen (NORCO) 5-325 MG tablet Review of Systems A 12 point review of systems was performed and was negative except for:what was mentioned in the HPI Physical Exam Blood pressure 123/97, pulse 97, temperature 97.8 ??F (36.6 ??C), resp. rate 18, height 1.753 m (5'9 ), weight 86.2 kg (190 lb), SpO2 99 %. Lab results smartLinks are not currently available Lab results smartLinks are not currently available General: Awake, cooperative, in no acute distress. CV: Regular rate Pulm: No audible wheezing, no use of accessory muscles Abd: soft, nontender, nondistended Musculoskeletal: Right upper extremity: -Appearance: skin intact, compartments soft/compressible, visible deformity -Tenderness: tender to palpation of arm -ROM: tender to passive range of motion of arm -Motor: Able to ABduct index and small fingers, able to Flex thumb at IP joint, able to hold thumb extended, able to flex/extend the elbow, able to ABduct shoulder -Sensation: intact to light touch Axillary/Median/Ulnar/Radial distributions, patient endorses normal sensation in the hand -Vascular: palpable radial pulse with fingers warm and well perfused Left upper extremity: -Appearance: skin intact, compartments soft/compressible -Tenderness: nontender to palpation of shoulder, arm, and hand -ROM: nontender to passive range of motion of shoulder, elbow, wrist, fingers. No crepitation -Motor: Able to ABduct index and small fingers, able to Flex thumb at IP joint, able to hold thumb extended, able to flex/extend the elbow, able to ABduct shoulder -Sensation: intact to light touch Axillary/Median/Ulnar/Radial distributions, patient endorses normal sensation in the hand -Vascular: palpable radial pulse with fingers warm and well perfused Bilateral lower extremity: -Appearance: skin intact, compartments soft/compressible -Tenderness: nontender to palpation of hip, leg, and foot -ROM: nontender to passive range of motion of hip, knee, ankle, foot. Negative log roll. Negative axial load. No crepitation -Motor: Able to plantarflex ankle, able to dorsiflex ankle, able to plantarflex great toe, able to dorsiflex great toe -Sensation: intact to light touch in DP/SP/Sural/Saphenous/Tibial nerve distributions, patient endorses normal sensation in the foot -Vascular: palpable DP/ PT pulse with toes warm and well perfused Imaging - XR right wrist demonstrates a displaced and comminuted distal radius fracture Procedure Note - See separate note Assessment/Plan: 72 year old female with right distal radius fracture -s/p fall 1. Weight bearing Status: NWB RUE 2. Dispo: Patient is OK for Discharge from OrthoTrauma perspective. They can follow up with Dr. Mendieta in 1 week(s) with 3 XR views of right wrist . They will need to call [phone] to schedule/confirm appointment. Please call with any questions or concerns 3. right distal radius reduction performed in ED. The patient remained motor and neuro intact following reduction and reported interval resolution of pain 4. sugar tong splint applied. Patient counseled to elevated the affected extremity with distal limbhigher than proximal limb in an effort to limit swelling 5. Pain Control 6. Plan for PT/OT when able 7. Patient was counseled to the nature of their diagnosis and demonstrated understanding. Questionssolicited and answered Arline Gonzales MD Orthopaedic Surgery Resident 04/09/2022 10:09 PM Follow up Contact Information: Orthopaedic Surgery [facility], Level I-Orthopaedic Surgery [address] [place], [place] [id number] documented in this encounter ED Notes * Ambreen Davis RN - 04/09/2022 9:34 PM CDT Discharge instructions and medications reviewed with patient. Patient verbalized understanding and ambulated on own to exit, gait steady. * Luana Talbert PA-C - 04/09/2022 6:59 PM CDT Damien Pulido [id number] [facility] History Chief Complaint Patient presents with ??? Fall Pt was standing on management instructor blocks, lost her balance and fell back, catching herself with R wrist. Denies hitting head. Was seen at [facility], was told that R wrist is fractured. Also endorses pain to tailbone. Fall occurred at 1530. 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 The patient states she was standing on paverblocks approximately 10 inches high when she tripped and fell back landing on her buttock and outstretched right hand. She denies head trauma or LOC, neck pain, back pain, or pain of other joints. She presented to [facility] where she had an xray of her R wrist performed which reveals a comminuted intra-articular distal radial fracture with dorsal displacement and angulation and displacedulnar styloid avulsion fracture . She reports an abrasion overlying her wrist, denies open fracture. She received morphine, was splinted in sugar tong splint, and transferred to [facility] for orthopedic hand consult. No past medical history on file. Current Outpatient Medications: ??? HYDROcodone-acetaminophen (NORCO) 5-325 MG tablet, Take 1 (one) tablet by mouth every 6 hours as needed for Pain, Disp: 12 tablet, Rfl: 0 No past surgical history on file. Social History Socioeconomic History ??? Marital status: Spouse name: Not on file ??? Number of children: Not on file ??? Years of education: Not on file ??? Highest education level: Not on file Occupational History ??? Not on file Tobacco Use ??? Smoking status: Never Smoker ??? Smokeless tobacco: Never Used Substance and Sexual Activity ??? Alcohol use: Never ??? Drug use: Never ??? Sexual activity: Not on file Other Topics Concern ??? Not on file Social History Narrative ??? Not on file Social Determinants of Health Financial Resource Strain: Not on file Food Insecurity: Not on file Transportation Needs: Not on file Physical Activity: Not on file Stress: Not on file Social Connections: Not on file Intimate Partner Violence: Not on file Housing Stability: Not on file REVIEW OF SYSTEMS: (+) positive Review of Systems Constitutional: Negative for chills and fever. HENT: Negative for sore throat. Eyes: Negative for blurred vision and double vision. Respiratory: Negative for cough and shortness of breath. Cardiovascular: Negative for chest pain and palpitations. Gastrointestinal: Negative for abdominal pain, diarrhea, nausea and vomiting. Genitourinary: Negative for dysuria, frequency and urgency. Musculoskeletal: Positive for falls and joint pain (R wrist). Negative for back pain and neck pain. Neurological: Negative for dizziness, tingling, sensory change, focal weakness, loss of consciousness, weakness and headaches. VITALS: Vitals: 04/09/22 1819 BP: 123/97 Pulse: 97 Resp: 18 Temp: 97.8 ??F (36.6 ??C) SpO2: 99% Weight: 86.2 kg (190 lb) Height: 1.753 m (5' 9 ) PHYSICAL EXAM: Physical Exam Vitals reviewed. Constitutional: General: She is not in acute distress. HENT: Head: Normocephalic and atraumatic. Eyes: Conjunctiva/sclera: Conjunctivae normal. Pupils: Pupils are equal, round, and reactive to light. Cardiovascular: Rate and Rhythm: Normal rate and regular rhythm. Heart sounds: No murmur heard. No friction rub. No gallop. Pulmonary: Effort: Pulmonary effort is normal. No accessory muscle usage or respiratory distress. Breath sounds: Normal breath sounds. No wheezing, rhonchi or rales. Abdominal: General: Bowel sounds are normal. There is no distension. Palpations: Abdomen is soft. Tenderness: There is no abdominal tenderness. There is no guarding or rebound. Musculoskeletal: General: No swelling or deformity. Cervical back: Normal range of motion and neck supple. Right lower leg: No edema. Left lower leg: No edema. Comments: RUE in sugar tong splint. Able to wiggle fingers. Cap refill < 2 sec, sensation intact. No midline C/T/L spine tenderness. No pain with active ROM of all joints. Skin: General: Skin is warm and dry. Comments: Approximately 2 cm ecchymosis to R buttock. Neurological: Comments: Mental Status: awake, alert, orientedx3 Higher cerebral function: speech-non aphasic Cranial Nerves: II-XII intact. Motor Function: Bilateral upper and lower extremities- 5/5 Sensation Function: Bilateral face, upper and lower extremities- normal to light touch Coordination: Ambulates with steady gait Psychiatric: Mood and Affect: Mood normal. Behavior: Behavior normal. LAB RESULTS Labs Reviewed CBC W AUTO DIFFERENTIAL - Abnormal; Notable for the following components: Result Value WBC 13.2 (*) Neutrophils % 87.6 (*) Lymphocytes % 6.3 (*) Neutrophils Absolute 11.6 (*) Lymphocyte Absolute 0.8 (*) All other components within normal limits PT-INR [facility] - Abnormal; Notable for the following components: PT 29.6 (*) All other components within normal limits COMPREHENSIVE METABOLIC PANEL IMAGING RESULTS XR ELBOW RIGHT 3VW OR MORE (Results Pending) XR FOREARM RIGHT 2VW (Results Pending) XR WRIST RIGHT 3VW OR MORE (Results Pending) XR WRIST RIGHT 2VW (Results Pending) MEDICAL DECISION-MAKING: In summary, Damien Pulido is a 72 year old female, with 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 1. Fall 2. R wrist pain Differential diagnosis considered: -Fracture vs dislocation vs contusion vs abrasion vs other PLAN: -Labs ordered in triage - review -Right elbow, forearm, and wrist xray -Morphine for pain -Ortho hand consult ED COURSE: 1849: Initial assessment performed, plan as above as discussed with Dr. Ospina. 1929: Discussed all the pertinent aspects of the case with Orthopedics who will see the patient. -Labs ordered in triage - reviewed. INR 2.8, within therapeutic range for warfarin. WBC of 13.2, likely 2/2 inflammation. 1999: Ortho at bedside. Requesting versed for reduction. -Righ wrist and forearm xray prelim: Moderately displaced fracture of the distal radius with dorsal displacement of the distal fragment relative to the proximal fragment. There is dorsal tilt. Thereis intra-articular involvement. Minimally displaced ulnar styloid fracture. 2100: Ortho has reduced fracture and state patient is stable for discharge from their standpoint. Recommend NWB of RUE, pain control, and follow up with Dr. Mendieta in 1 week. -Reassessed patient, patient is motor and neuro intact following reduction and splint application. -Patient given sling for comfort and short course of norco for pain control. 2111: Patient is medically stable for discharge at this time. -I have given the patient instructions regarding diagnosis, expectations, follow up, and return precautions. I explained to the patient that emergent conditions may arise and to return to the ER for new, worsening, or any persistent conditions. I've explained the importance of following up with PCPas instructed. The patient verbalized understanding of the discharge instructions. Disposition: Discharge. Consult Yes - Orthopedics Procedure done at this time Yes - Performed by orthopedics Ultrasound done at this time No CRITICAL CARE IN THE ED No Orders and Medicine administered during this encounter: Orders Placed This Encounter ??? SLING ARM MED ??? XR ELBOW RIGHT 3VW OR MORE ??? XR FOREARM RIGHT 2VW ??? XR WRIST RIGHT 3VW OR MORE ??? XR WRIST RIGHT 2VW ??? CBC W AUTO DIFFERENTIAL ??? COMPREHENSIVE METABOLIC PANEL ??? PT-INR [facility] ??? IP CONSULT TO ORTHOPEDICS ??? DISCONTD: 0.9% NaCl injection 3 mL ??? DISCONTD: 0.9% NaCl injection 1-10 mL ??? Tdap (zstwqns-gxrlyihhws-sttao pertussis) (Boostrix) (7y+) injection 0.5 mL ??? morphine injection 2 mg ??? lidocaine (Xylocaine) 1 % injection ??? midazolam (Versed) injection 2 mg ??? HYDROcodone-acetaminophen (NORCO) 5-325 MG tablet Medications Tdap (gezrdta-ynrxzwuylc-rtjxj pertussis) (Boostrix) (7y+) injection 0.5 mL (0.5 mL Intramuscular $Given 04/09/22 1838) morphine injection 2 mg (2 mg Intravenous $ Given 04/09/22 193) lidocaine (Xylocaine) 1 % injection (200 mg Infiltration $ Admin. by Other Provider 04/09/221956) midazolam (Versed) injection 2 mg (2 mg Intravenous $ Given 04/09/222014) Clinical Impression: 1. Right wrist pain 2. Closed fracture of distal end of right radius, unspecified fracture morphology, initial encounter 3. Closed displaced fracture of styloid process of right ulna with delayed healing, subsequent encounter 4. Fall, initial encounter Follow-up: Follow-up Information [facility] In 1 week. Specialty: Orthopedics Contact information: [address] [facility] [address] Orestes Flores MD. Specialty: Internal Medicine Contact information: [address] [place] [phone] Luana Talbert PA-C Emergency Medicine * Dana Handy RN - 04/09/2022 6:23 PM CDT Pt was standing on management instructor blocks, lost her balance and fell back, catching herself with R wrist. Denies hitting head. Was seen at [facility], was told that R wrist is fractured. Also endorses pain to tailbone. Fall occurred at 1530. documented in this encounter Plan of Treatment Not on file documented as of this encounter Procedures Procedure Name Priority Date/Time Associated Diagnosis Comments XR WRIST RIGHT 2VW STAT 04/09/2022 8 :57 PM CDT Right wrist pain XR WRIST RIGHT 3VW OR MORE STAT 04/09/2022 7:39 PM CDT Right wrist pain XR FOREARM RIGHT 2VW OR MORE STAT 04/09/2022 7:38 PM CDT Right wrist pain XR ELBOW RIGHT 3VW OR MORE STAT 04/09/2022 7:38 PM CDT Right wrist pain PT-INR [facility] STAT 04/09/2022 6:32 PM CDT CBC W AUTO DIFFERENTIAL STAT 04/09/2022 6:32 PM CDT documented in this encounter Results * XR WRIST RIGHT 2VW (04/09/2022 8:57 PM CDT) Anatomical Region Laterality Modality Wrist / Hand Radiographic Kymberly ging 04/09/2022 8:59 PM CDT Impressions 04/10/2022 11:48 AM CDT FINDINGS/IMPRESSION: Splinting material obscures soft tissue and osseous detail. Comminuted displaced articular fracture of the distal radius is improved in alignment since the exam at 7:27 PM. Fracture of the ulnar styloid process is unchanged. Dictated by Cristhian Birmingham MD (co founder and president). I, Dr. VANESSA RUSSELL M.D. have personally reviewed and interpreted this examination/study. This report was electronically signed by VANESSA RUSSELL M.D. ??on 04/10/2022 11:48 AM . Narrative 04/10/2022 11:48 AM CDT EXAMINATION: XR WRIST RIGHT 2VW HISTORY: M25.531: Right wrist pain COMPARISON: 04/09/2022 Procedure Note Vanessa Russell MD - 04/10/2022 EXAMINATION: XR WRIST RIGHT 2VW HISTORY: M25.531: Right wrist pain COMPARISON: 04/09/2022 FINDINGS/IMPRESSION: Splinting material obscures soft tissue and osseous detail. Comminuted displaced articular fracture of the distal radius is improved in alignment since the exam at 7:27 PM. Fracture of the ulnar styloid process is unchanged. Dictated by Cristhian Birmingham MD (co founder and president). Dr. VANESSA Mittal M.D. have personally reviewed and interpreted this examination/study. This report was electronically signed by VANESSA RUSSELL M.D. on 04/10/2022 11:48 AM . Virgilio Ospina MD DIAGNOSTIC IMAGING O RDERABLES * XR WRIST RIGHT 3VW OR MORE (04/09/2022 7:39 PM CDT) Anatomical Region Laterality Modality Wrist / Hand Radiographic Kymberly ging 04/09/2022 7:41 PM CDT Impressions 04/10/2022 11:53 AM CDT IMPRESSION: 1.Moderately displaced fracture of the distal radius with dorsal displacement of the distal fragment relative to the proximal fragment. There is dorsal tilt. There is intra-articular involvement. 2.Minimally displaced ulnar styloid fracture. Dictated by Geovani Foster MD (co founder and president). Dr. HU Mittal M.D. have personally reviewed [...] styloid fracture. Dictated by Geovani Foster MD (co founder and president). I, Dr. HU AGUAYO M.D. have personally reviewed andinterpreted this examination/study. This report was electronically signed by HU AGUAYO M.D. on 04/10/2022 11:53 AM . Luana Skinner PA-C DIAGNOSTIC IMAGING O RDERABLES * XR FOREARM RIGHT 2VW (04/09/2022 7:38 [...] styloid fracture. Dictated by Geovani Foster MD (co founder and president). I, Dr. HU AGUAYO M.D. have personally [...] styloid fracture. Dictated by Geovani Foster MD (co founder and president). Dr. HU Mittal M.D. have personally reviewed [...] styloid fracture. Dictated by Geovani Foster MD (co founder and president). Dr. HU Mittal M.D. have personally reviewed [...] styloid fracture. Dictated by Geovani Foster MD (co founder and president). I, Dr. HU AGUAYO M.D. have personally reviewed andinterpreted this examination/study. This report was electronically signed by HU AGUAYO M.D. on 04/10/2022 11:53 AM . Luana Skinner PA-C DIAGNOSTIC IMAGING O RDERABLES * (ABNORMAL) PT-INR [facility] (04/09/2022 6:32 PM CDT) PT 29.6(H) 12.1 - 14.8 Seconds 04/09/2022 6:59 PM CDT [facility] INR 2.8 See Comment 04/09/2022 6:59 PM CDT [facility] Comment:The suggested therap eutic range for standard coumadin (warfarin) therapy is an INR of 2.0-3.0. For high-risk patients (Mechanical Mitral Valve Prosthesis, etc.), the suggested prophylactic therapeutic range is an INR of 2.5-3.5. Blood BLOOD SPECIMEN / Unknown Venipuncture / Unknown 04/09/2022 6:32 PM CDT 04/09/2022 6:36 PM CDT Erica Ng SUPERVISOR CURING [employer]-CRYPTOGRAPHY TEACHER LAB - COAGUL ATION ORDERABLES Performing Organization Address City/State/[facility] Co de Phone Number [address] [address], [facility] [phone] * (ABNORMAL) CBC W AUTO DIFFERENTIAL (04/09/2022 6:32 PM CDT) WBC 13.2(H) 3.5 - 10.5 10? 3 /uL 04/09/2022 6:43 PM CDT [facility] RBC 4.03 3.80 - 5.20 10? 6 /uL 04/09/2022 6:43 PM CDT [facility] Hemoglobin 12.9 12.0 - 15.6 g/dL 04/09/2022 6:43 PM [facility] Hematocrit 38.4 35.0 - 45.0 % 04/09/2022 6:43 PM [facility] MCV 95.3 80.7 - 98.3 fL 04/09/2022 6:43 PM [facility] MCH 32.0 26.7 - 34.0 pg 04/09/2022 6:43 PM [facility] MCHC 33.6 30.8 - 35.9 g/dL 04/09/2022 6:43 PM [facility] Platelet Count 227 150 - 400 10? 3 /uL 04/09/2022 6:43 PM [facility] RDW-SD 49.8 36.0 - 50.0 fL 04/09/2022 6:43 PM [facility] RDW-CV 14.1 11.2 - 14.8 % 04/09/2022 6:43 PM [facility] MPV 10.4 9.4 - 12.9 fL 04/09/2022 6:43 PM [facility] nRBC Absolute 0.00 0 10? 3 /uL 04/09/2022 6:43 PM [facility] nRBC Auto 0.0 0 /100 WBC 04/09/2022 6:43 PM [facility] Neutrophils % 87.6(H) 35.0 - 70.0 % 04/09/2022 6:43 PM [facility] Lymphocytes % 6.3(L) 20.0 - 43.0 % 04/09/2022 6:43 PM [facility] Monocytes % 5.1 5.0 - 13.0 % 04/09/2022 6:43 PM [facility] Eosinophils % 0.2 0.0 - 6.0 % 04/09/2022 6:43 PM [facility] Basophil % 0.3 0.0 - 2.0 % 04/09/2022 6:43 PM [facility] Neutrophils Absolute 11.6(H) 1.6 - 7.0 10? 3 /uL 04/09/2022 6:43 PM [facility] Lymphocyte Absolute 0.8(L) 1.1 - 3.9 10? 3 /uL 04/09/2022 6:43 PM CDT [facility] Monocytes Absolute 0.67 0.26 - 1.07 10? 3 /uL 04/09/2022 6:43 PM CDT [facility] Eosinophils Absolute 0.02 0.00 - 0.47 10? 3 /uL 04/09/2022 6:43 PM CDT [facility] Basophils Absolute 0.04 0.00 - 0.08 10? 3 /uL 04/09/2022 6:43 PM CDT [facility] Immature Granulocytes % 0.5 0.0 - 1.0 % 04/09/2022 6:43 PM CDT [facility] Immature Granulocytes Absolute 0.07 04/09/2022 6:43 PM T [facility] Blood BLOOD SPECIMEN / Unknown Venipuncture / Unknown 04/09/2022 6:32 PM CDT 04/09/2022 6:39 PM CDT Erica Ng SUPERVISOR CURING ROOM-CRYPTOGRAPHY TEACHER LAB - HEMATO LOGY ORDERABLES Performing Organization Address [facility] Co de Phone Number [facility] [address] [place] [address], [facility] [phone] documented in this encounter Visit Diagnoses Diagnosis Right wrist pain Pain in joint, forearm Closed fracture of distal end of right radius, unspecified fracture morphology, initial encounter Closed displaced fracture of styloid process of right ulna with delayed healing, subsequent encounter Fall, initial encounter Other intraarticular fracture of lower end of right radius, initial encounter for closed fracture Displaced fracture of right ulna styloid process, initial encounter for closed fracture Other fall from one level to another, initial encounter documented in this encounter Administered Medications Inactive Administered Medications - up to 3 most recent administrations Medication Order MAR Action Action Date Dose Rate Site 0.9% NaCl injection 1-10 mL 1-10 mL, Intracatheter, PRN, Other, peripheral line flush, Starting on Sat04/09/22 at 1827, Until Sat04/09/22 at 2235, Flush peripheral IV catheter with 1-10 mL of normal saline before and after medications and prn to clear blood from the line or to verify patency. 0.9% NaCl injection 3 mL 3 mL, Intracatheter, EVERY 8 HOURS, First dose on Sat04/09/22 at 2200, Until Discontinued, Flush peripheral IV catheter with 3 mL of normal saline every 8 hours. lidocaine (Xylocaine) 1 % injection Infiltration, ONCE, 1 dose, On Sat04/09/22 at 2014 $ Admin. by Other Provider 04/09/2022 7:57 PM CDT 200 mg midazolam (Versed) injection 2 mg 2 mg, Intravenous, NOW, 1 dose, On Sat04/09/22 at 2014 $ Given 04/09/2022 8:15 PM CDT 2 mg morphine injection 2 mg 2 mg, Intravenous, ONCE, 1 dose, On Sat04/09/22 at 194, Patient preference for lesser PRN pain meds may be honored when the patient requests a less strong medication, a lower dose, or a less intrusive route of administration when the lesser drug, dose and route have been ordered for the patient. This patient request must be documented in the MAR. $ Given 04/09/2022 7:35 PM CDT 2 mg documented in this encounter Active and Recently Administered Medications Times are shown in CDT. Scheduled Medication Order 04/07/2022 04/08/2022 04/09/2022 0.9% NaCl injection 3 mL(Linked Group 1) 3 mL, Intracatheter, EVERY 8 HOURS, First dose on Sat04/09/22 at 2200, Until Discontinued, Flush peripheral IV catheter with 3 mL of normal saline every 8 hours. lidocaine (Xylocaine) 1 % injection (COMPLETED) Infiltration, ONCE, 1 dose, On Sat04/09/22 at 2014 1956 ($ Admin. by Ot her Provider - Provider: Herb Pepper RN) midazolam (Versed) injection 2 mg (COMPLETED) 2 mg, Intravenous, NOW, 1 dose, On Sat04/09/22 at 2014 2014 ($ Given - Prov ider: Herb Pepper RN) morphine injection 2 mg (COMPLETED) 2 mg, Intravenous, ONCE, 1 dose, On Sat04/09/22 at 1944, Patient preference for lesser PRN pain meds may be honored when the patient requests a less strong medication, a lower dose, or a less intrusive route of administration when the lesser drug, dose and route have been ordered for the patient. This patient request must be documented in the JAN. 1934 ($ Given - Prov ider: Herb Pepper RN) PRN Medication Order 04/07/2022 04/08/2022 04/09/2022 0.9% NaCl injection 1-10 mL(Linked Group 1) 1-10 mL, Intracatheter, PRN, Other, peripheral line flush, Starting on Sat04/09/22 at 1827, Until Sat04/09/22 at 2235, Flush peripheral IV catheter with 1-10 mL of normal saline before and after medications and prn to clear blood from the line or to verify patency. Linked Groups Order Group 1: SALINE LOCK, INSERT AND MAINTAIN (CANCELED) Routine, CONTINUOUS, Starting on Sat04/09/22 at 1830, Until Specified, New collection, Task Completed: Yes And 0.9% NaCl injection 3 mLJump to med 3 mL, Intracatheter, EVERY 8 HOURS, First dose on Sat04/09/22 at 2200, Until Discontinued, Flush peripheral IV catheter with 3 mL of normal saline every 8 hours. And 0.9% NaCl injection 1-10 mLJump to med 1-10 mL, Intracatheter, PRN, Other, peripheral line flush, Starting on Sat04/09/22 at 1827, Until Sat04/09/22 at 2235, Flush peripheral IV catheter with 1-10 mL of normal saline before and after medications and prn to clear blood from the line or to verify patency. documented in this encounter Care Teams Environmental Health Sanitarian Relationship Specialty Start Date End Date Orestes Flores MD [address] [address] PCP - General 08/26/12 04/24/22 documented as of this encounter
--- OUTSIDE RECORDS SUMMARY | 2024-11-09 18:26 | XMS_ITS | Encounter Summary ---
Author Organization [facility] Address [address] [place] [address]. [place], [place] [address] [place] [address] Care Team Providers Care Digital Account Manager Name Role Phone Unavailable Primary Care Provider Unavailabl e Encounter Details Date Type Department Care Team (Late st Contact Info) Description 04/20/2016 Abstract [facility] Day [facility] [address] [place] [address] Madhav South MD [address] [place] [address] Social History Tobacco Use Types Packs/Day Years [...] this encounter Visit Diagnoses Diagnosis Encounter for screening for malignant neoplasm of colon Special screening for malignant neoplasms, colon documented in this encounter
--- OUTSIDE RECORDS SUMMARY | 2024-11-09 18:26 | XMS_ITS | Encounter Summary ---
Author Organization [facility] Address [address] [place] [address]. [place], [place] [address] [place] [address] Care Team Providers Care Link Fabric Machine Operator Name Role Phone Unavailable Primary Care Provider Unavailabl e Encounter Details Date Type Department Care Team (Late st Contact Info) Description 07/24/2016 Abstract [facility] [address] [place] [address] Yesenia Pagan, CHIEF CONTROLLER [facility] [address] [place] [phone] Social History Tobacco Use Types Packs/Day [...]
--- OUTSIDE RECORDS SUMMARY | 2024-11-09 18:26 | XMS_ITS | Encounter Summary ---
Author Organization [facility] Address [address] [place] [address]. [place], [place] [address] [place] [address] Care Team Providers Care Dental Instrument Maker Name Role Phone Unavailable Primary Care Provider Unavailabl e Encounter Details Date Type Department Care Team (Late st Contact Info) Description 07/31/2016 Abstract [facility] [address] [place] [address] Yesenia Pagan, BOWL ATTENDANT [address] [place] [phone] Social History Tobacco Use Types Packs/Day [...]
--- OUTSIDE RECORDS SUMMARY | 2024-11-09 18:26 | XMS_ITS | Encounter Summary ---
Author Organization [facility] Address [address] [place] [address]. [place], [place] [address] [place] [address] Care Team Providers Care Crew Leader Name Role Phone Unavailable Primary Care Provider Unavailabl e Encounter Details Date Type Department Care Team (Late st Contact Info) Description 07/17/2016 Scan [facility] AT [address] [address] Scanned, Documents Social History Tobacco Use Types Packs/Day Years [...]
--- OUTSIDE RECORDS SUMMARY | 2024-11-09 18:26 | XMS_ITS | Encounter Summary ---
Author Organization [facility] Address [address] [place] [address]. [place], [place] [address] [place] [address] Care Team Providers Care Clinical Programmer Name Role Phone Unavailable Primary Care Provider Unavailabl e Encounter Details Date Type Department Care Team (Late st Contact Info) Description 11/06/2007 Abstract [facility] [address] [place] [address] Michelle Iglesias MD [address] [place] [address] Social History Tobacco Use Types Packs/Day Years [...]
--- OUTSIDE RECORDS SUMMARY | 2024-11-09 18:26 | XMS_ITS | Encounter Summary ---
Author Organization [facility] Address [address] [place] [address]. [place], [place] [address] [place] [address] Care Team Providers Care Straddle Buggy Operator Name Role Phone Unavailable Primary Care Provider Unavailabl e Encounter Details Date Type Department Care Team (Late st Contact Info) Description 11/06/2013 Abstract [facility] [address] [place] [address] Soy Barriga MD [address] [place] [address] Social History Tobacco Use Types Packs/Day Years [...]
--- OUTSIDE RECORDS SUMMARY | 2024-11-09 18:26 | XMS_ITS | Referral Summary ---
Author Organization [facility] Address [address] [place] [address] Care Team Providers Care [employer] Maintenance Worker Name Role Phone Chris Avalos PA-C Primary Care Provide r Source Comments [facility],non-owned Affiliates and Associated Physician Practices is amultiple site organization consisting of ambulatory clinics and hospital sitesin [place], [place], [place] and [place]. This disclosure is being madepursuant to the Care Everywhere program and may not contain all information available regarding this patient. Last updated 18.[facility] Allergies No known active allergies Medications * Be aware that medications may not be up to date on this document. Alwaysverify current medications with the patient. Medication Sig Dispensed Refills Start Date End Date Status warfarin (COUMADIN) 2 MG tablet Take 5 mg by mouth once daily 02/20/2022 Active rOPINIRole (REQUIP) 0.25 MG tablet Take 0.25 mg by mouth at bedtime 02/07/2022 Active pancrelipase (CREON 12,000) 28113-72544 units capsule Active levothyroxine (SYNTHROID) 100 MCG tablet Take 100 mcg by mouth at bedtime 03/26/2022 Active letrozole (FEMARA) 2.5 MG tablet Take 2.5 mg by mouth once daily 04/13/2022 Active albuterol-ipratropi um (DUO-NEB) 0.5-2.5 (3) MG/3ML nebulizer solution USE 1 VIAL PER NEBULIZER 4 TIMES A DAY FOR 15 DAYS 11/17/2020 Active gabapentin (NEURONTIN) 800 MG tablet Take 800 mg by mouth 2 times daily 02/11/2022 Active furosemide (LASIX) 40 MG tablet Take 40 mg by mouth once daily 03/15/2022 Active ADVAIR HFA 230-21 MCG/ACT Inhale 1 puff by mouth 2 times daily 03/14/2022 Active cyanocobalamin 250 MCG tablet Take 250 mcg by mouth once daily Active Cholecalciferol 125 MCG (5000 UT) Take 5,000 Units by mouth once daily Active Ascorbic Acid 1000 MG Take 1,000 mg by mouth once daily Active albuterol HFA (PROVENTIL; VENTOLIN; PROAIR) 108 (90 Base) MCG/ACT inhaler INHALE 2 PUFFS BY MOUTH EVERY 4 TO 6 HOURS NEEDED FOR SHORTNESS OF BREATH OR WHEEZING 04/14/2021 Active acetaminophen (TYLENOL) 325 MG tablet Take 325 mg by mouth every 6 hours as needed Active dicyclomine (BENTYL) 20 MG tablet Take 20 mg by mouth 3 times daily Active montelukast (SINGULAIR) 10 MG tablet Take 10 mg by mouth once daily 02/21/2022 Active HYDROcodone-acetami nophen (NORCO) 5-325 MG tablet Take 1 (one) tablet by mouth every 6 hours as needed 28 tablet 04/30/2022 Active Additional Information Patient not taking.Reported on 05/09/2022 Active Problems Problem Noted Date Diagnosed Date Closed fracture of right wrist, initial encounte r 04/30/2022 Post-op pain Immunizations Name Administration Dates Next Due TDAP (7yrs+) 04/09/2022 Social History Tobacco Use Types Packs/Day Years [...] Mass Index 28.5 06/06/2022 9:06 AM CDT Functional Status Functional Status Response Date of [...] person have difficulty concentrating/remembering/making decisions? No 04/30/2022 Plan of Treatment Not on file Medical Devices Implanted Type Area Water Taxi Driver Device Identifier Shelf Expiration Date Model / Serial / Lot Screw Implanted:Qty: 1 on 04/30/2022 by Michel Mendieta MD at [facility] Right: Wrist [employer] [id number] / / Screw 2.7mm 20mm Mldir Nonster Bone Implanted:Qty: 1 on 04/30/2022 by Michel Mendieta MD at [facility] Right: Wrist [employer] [id number] / / Plate Implanted:Qty: 1 on 04/30/2022 by Michel Mendieta MD at [facility] Right: Wrist [employer] [id number] / / Screw 2.7mm 14mm Lopro Nonster Bone Lf Implanted:Qty: 2 on 04/30/2022 by Michel Mendieta MD at [facility] Right: Wrist [employer] [id number] / / Screw Implanted:Qty: 1 on 04/30/2022 by Michel Mendieta MD at [facility] Right: Wrist [employer] [id number] / / Screw 2.7mm 20mm Crsslck Tpr Head 3 Ld Implanted:Qty: 3 on 04/30/2022 by Michel Mendieta MD at [facility] Right: Wrist [employer] [id number] / / Screw 2.7mm 22mm Lck Jesse Nonster Bone Implanted:Qty: 2 on 04/30/2022 by Michel Mendieta MD at [facility] Right: Wrist [employer] [id number] / / Explanted Type Area Water Taxi Driver Device Identifier Shelf Expiration Date Model / Serial / Lot Wire K .062in 6in Fx 2 Troc Explanted:Qty: 2 on 04/30/2022 by Michel Mendieta MD at [facility] Right: Wrist [employer] [id number] / / Wire K 1.6mm Ss Fx Nonster Explanted:Qty: 3 on 04/30/2022 by Michel Mendieta MD at [facility] Right: Wrist [employer] [id number] / / Screw 2.7mm 20mm Crsslck Lopro Nonlock Explanted:Qty: 1 on 04/30/2022 by Michel Mendieta MD at [facility] Right: Wrist [employer] [id number] / / Screw 2.7mm 20mm Crsslck Lopro Nonlock Explanted:Qty: 1 on 04/30/2022 by Michel Mendieta MD at [facility] Right: Wrist [employer] [id number] / / Care Teams [employer] Maintenance Worker Relationship Specialty Start Date End Date Chris Avalos PA-C [address] [place] [address] PCP - General 04/25/22
--- OUTSIDE RECORDS SUMMARY | 2024-11-09 18:26 | XMS_ITS | Encounter Summary ---
Author Organization [facility] Address [address] [place] [address]. [place], [place] [address] [place] [address] Care Team Providers Care Director Search Name Role Phone Unavailable Primary Care Provider Unavailabl e Encounter Details Date Type Department Care Team (Late st Contact Info) Description 12/25/2010 Abstract [facility] [address] [place] [address] Orestes Flores MD Social History Tobacco Use [...] as of this encounter Visit Diagnoses Diagnosis Hypothyroidism Unspecified hypothyroidism documented in this encounter
--- OUTSIDE RECORDS SUMMARY | 2024-11-09 18:26 | XMS_ITS | Encounter Summary ---
Author Organization [facility] Address [address] [place] [address] Care Team Providers Care Potato Chip Processing Supervisor Name Role Phone Chris Avalos PA-C Primary Care Provide r Encounter Details Date Type Department Care Team (Late st Contact Info) Description 04/27/2022 11:00 AM CDT - 04/27/2022 11:59 PM CDT Hospital Encounter [facility] [address] [place] [address] Michel Mendieta MD [address] [place] [address] [place] [address] Discharge Disposition: Home or Self Care Anesthesia Record Procedure Summary Procedure Name Responsible [...] Room 1425 ANPTO2 [id number] An Stop Meds * Agents No agents on file. * Blood No blood administrations on file. Lines, Drains, and Airways Type Details Placement Removal Peripheral IV Date: 04/30/22; Time : 09; Orientation: Anterior, Left; Tolerance: Well 04/30/22 0915 by Leonora Alcocer RN 04/30/22 1643 by Michel Vasquez, RN ETT Date: 04/30/22; Time : 1147; [...] Meehan RN 04/30/22 1644 by Michel Vasquez, RN documented in this encounter Social History Tobacco Use Types Packs/Day Years Used Date Smoking Tobacco: Never Smokeless Tobacco: Never Alcohol Use Standard Drinks/Week Comments Yes 0 (1 standard drink = 0.6 oz pur e alcohol) social Sex and Gender Information Value Date Recorded Sex Assigned at Not on file Gender Identity Not on file Sexual Orientation Not on file documented as of this encounter Last Filed Vital Signs Vital Sign Reading Time Taken Comments Blood Pressure 132/81 04/27/2022 11:12 AM CDT Pulse 90 04/27/2022 11:12 AM CDT Temperature 36.6 ??C (97.9 ??F) 04/27/2022 11:12 AM C DT Respiratory Rate 18 04/27/2022 11:12 AM CDT Oxygen Saturation 98% 04/27/2022 11:12 AM CDT Inhaled Oxygen Concentration - - Weight 87.7 kg (193 lb 4.8 oz) 04/27/2022 11:12 AM CDT Height 175.3 cm (5' 9 ) 04/27/2022 11:12 AM CDT Body Mass Index 28.55 04/27/2022 11:12 AM CDT documented in this encounter Medications at Time [...] mouth once daily 02/21/2022 pancrelipase (CREON 12,000) 66002-52528 units capsule rOPINIRole (REQUIP) 0.25 MG tablet [...] as of this encounter Visit Diagnoses Diagnosis Preoperative examination- Primary Preoperative examination, unspecified documented in this encounter Care Teams Potato Chip Processing Supervisor Relationship Specialty Start Date End Date Chris Avalos PA-C [address] [address] [address] [place] [address] PCP - General 04/25/22 documented as of this encounter
--- OUTSIDE RECORDS SUMMARY | 2024-11-09 18:26 | XMS_ITS | Clinical Summary ---
Author Organization [facility] Address [address] [place] [address]. [place] [address] [place] [address] Care Team Providers Care Gypsum Block Setter Name Role Phone Ankit Villafuerte DO Primary Care Provider [phone] Allergies No known active allergies Medications warfarin (COUMADIN) 5 MG tablet Take 4.5 mg by mouth daily. Active Encounters Date Type Department Care Team Description 09/28/2024 3:00 PM SERVICE STATION HELPER - 09/28/2024 5:57 PM SERVICE STATION HELPER Emergency [facility] Emergency Room [address] [place] [address] Syeda Gayle MD Laceration Discharge Disposition: Home or Self Care (Routine Discharge) 09/28/2024 Travel from Last 3 Months Immunizations Name Administration Dates Next Due Tdap (Boostrix) 09/28/2024 Social History Tobacco Use Types Packs/Day Years Used Date Smoking Tobacco: Never Smokeless Tobacco: Never Tobacco Cessation:Counseling Given: Not Answered Alcohol Use Standard Drinks/Week Comments Never 0 (1 standard drink = 0.6 oz pur e alcohol) Comments Unknown Sex and Gender Information Value Date Recorded Sex Assigned at Not on file Legal Sex Female 11:00 AM CDT Gender Identity Not on file Sexual Orientation Not on file Last Filed Vital Signs Vital Sign Reading Time Taken Comments Blood Pressure 137/83 09/28/2024 5:55 PM SERVICE STATION HELPER Pulse 73 09/28/2024 5:55 PM SERVICE STATION HELPER Temperature 36.2 ??C (97.1 ??F) 09/28/2024 5:55 PM CS T Respiratory Rate 18 09/28/2024 5:55 PM SERVICE STATION HELPER Oxygen Saturation 98% 09/28/2024 5:55 PM SERVICE STATION HELPER Inhaled Oxygen Concentration - - Weight 97.1 kg (214 lb 1.1 oz) 09/28/2024 3:00 P M SERVICE STATION HELPER Height 175.3 cm (5' 9 ) 09/28/2024 3:00 PM SERVICE STATION HELPER Body Mass Index 31.61 09/28/2024 3:00 PM SERVICE STATION HELPER Plan of Treatment Health Maintenance Due Date Last Done Comments Colorectal Cancer Screening Colonoscopy (10 Years) 1950 Hepatitis C 1970 Zoster Vaccines (1 of 2) 2002 Annual Medicare Wellness Visit 2017 Mammogram Screening 06/29/2023 06/29/2021, 06/28/2020, 06/26/2019, Additional history exists COVID-19 Vaccine ( - season) 2024 01/07/2021, 12/10/2020 DTaP, Tdap and Td Vaccines (3 - Td or Tdap) 09/28/2034 09/28/2024, 04/09/2022 Pneumococcal Vaccine: 65+ Years Completed 07/13/2020, 09/04/2018 Dexa Scan (General) Completed 07/13/2021, 07/13/2021, 01/02/2017 RSV Immunization or 60+ Years Completed 11/28/2023 Influenza Adult Completed 09/17/2024, 12/2019, 10/02/2019, Additional history exists Meningococcal Vaccine Aged Out No fred anali eligible based on patient's age to complete this topic RSV Immunizations Under 20 Months Aged Out No longer eligible based on patient's age to complete this topic Procedures Procedure Name Priority Date/Time Associated Diagnosis Comments LACERATION REPAIR Routine 09/28/2024 5:4 6 PM SERVICE STATION HELPER XR FOREARM LT 2V STAT 09/28/2024 3:48 PM SERVICE STATION HELPER from Last 3 Months Results * Lac Repair (09/28/2024 5:46 PM SERVICE STATION HELPER) Narrative Syeda Gayle MD - 09/28/2024 5:46 PM SERVICE STATION HELPER Syeda Gayle MD ? 09/28/2024 ??5:49 PM Lac Repair Date/Time: 09/28/2024 5:46 PM Performed by: Syeda Gayle MD Authorized by: Syeda Gayle MD ?? Consent: ??Consent obtained: ??Verbal ??Consent given by: ??Patient ??Risks, benefits, and alternatives were discussed: yes ?Risks discussed: ??Pain and infection [place] protocol: ??Patient identity confirmed: ??Verbally with patient Anesthesia: ??Anesthesia method: ??Local infiltration ??Local anesthetic: ??Lidocaine 1% WITH epi Laceration details: ??Location: ??Shoulder/arm ??Shoulder/arm location: ??L lower arm ??Length (cm): ??7.5 ??Depth (mm): ??2 Pre-procedure details: ??Preparation: ??Patient was prepped and draped in usual sterile fashion and imaging obtained to evaluate for foreign bodies Exploration: ??Limited defect created (wound extended): no ?Hemostasis achieved with: ??Direct pressure ??Imaging obtained: x-ray ?Imaging outcome: foreign body not noted ?Wound exploration: wound explored through full range of motion and entire depth of wound visualized ?Wound extent: no fascia violation noted, no foreign bodies/material noted, no muscle damage noted, no nerve damage noted, no tendon damage noted, no underlying fracture noted and no vascular damage noted ?Contaminated: no ?? Treatment: ??Area cleansed with: ??Chlorhexidine ??Amount of cleaning: ??Standard ??Irrigation solution: ??Sterile saline ??Irrigation volume: ??100 ??Irrigation method: ??Syringe ??Visualized foreign bodies/material removed: no ?Debridement: ??None ??Undermining: ??None ??Scar revision: no ?? Skin repair: ??Repair method: ??Sutures ??Suture size: ??3-0 ??Suture material: ??Nylon ??Suture technique: ??Horizontal mattress ??Number of sutures: ??6 Approximation: ??Approximation: ??Close Repair type: ??Repair type: ??Simple Post-procedure details: ??Dressing: ??Antibiotic ointment and non-adherent dressing ??Procedure completion: ??Tolerated us Syeda Gayle MD PROCEDURE/MINOR SURGICAL ORDE KEVIN Final Result * XR FOREARM LT 2V (09/28/2024 3:48 PM SERVICE STATION HELPER) Anatomical Region Laterality Modality Forearm Radiographic Kymberly ging 09/28/2024 3:51 PM SERVICE STATION HELPER Impressions 09/28/2024 3:53 PM SERVICE STATION HELPER IMPRESSION: 1. ??No fracture or dislocation. Mild soft tissue swelling as above Ordered By: SYEDA GAYLE Interpreted By: Ricci Neal, 09/28/2024 3:51 PM Narrative 09/28/2024 3:53 PM SERVICE STATION HELPER [facility] [address] [place] [address] IMAGING STUDIES: ??XR FOREARM LT 2V ? DATE: ??09/28/2024 3:30 PM COMPARISON: ??No comparisons. CLINICAL HISTORY: ??wound, board hit arm ?? . ??Laceration to mid posterior forearm FINDINGS: There is no evidence of acute fracture, dislocation, or osseous erosion. Mild soft tissue swelling overlying the posterior mid forearm. No radiopaque foreign bodies.. Radial head is intact. Degenerative change of the wrist. Procedure Note Torito Neal MD - 09/28/2024 [facility] [address] [place], [place] [address]e. [place] [id number] IMAGING STUDIES: XR FOREARM LT 2V DATE: 09/28/2024 3:30 PM COMPARISON: No comparisons. CLINICAL HISTORY: wound, board hit arm . Laceration to mid posteriorforearm FINDINGS: There is no evidence of acute fracture, dislocation, or osseous erosion. Mild soft tissue swelling overlying the posterior mid forearm. Noradiopaque foreign bodies.. Radial head is intact. Degenerative change of the wrist. IMPRESSION: 1. No fracture or dislocation. Mild soft tissue swelling as above Ordered By: SYEDA GAYLE Interpreted By: Ricci Neal, 09/28/2024 3:51 PM Syeda Gayle MD GENERAL IMAGING Final Result from Last 3 Months Insurance T MEDICARE [facility] Hidden Radio Care Teams Gypsum Block Setter Relationship Specialty Start Date End Date Ankit Villafuerte DO [address] [address] PCP - General INTERNAL MEDICINE 09/28/24
--- OUTSIDE RECORDS SUMMARY | 2024-11-09 18:26 | XMS_ITS | Encounter Summary ---
Author Organization [facility] Address [address] [place] [address]. [place], [place] [address] [place] [address] Care Team Providers Care Director Life Sales Name Role Phone Ankit Villafuerte Primary Care Provider [phone] Reason for Visit * Reason Comments Laceration Encounter Details Date Type Department Care Team (Late st Contact Info) Description 09/28/2024 3:00 PM RUBBER STAMPS AND DIES SUPERVISOR - 09/28/2024 5:57 PM RUBBER STAMPS AND DIES SUPERVISOR Emergency [facility] Emergency Room [address] [place] [address] Syeda Gayle MD [address] [place], [place] [id number] Laceration Discharge Disposition: Home or Self Care (Routine Discharge) Social History Tobacco Use Types Packs/Day Years [...] Comments Blood Pressure 137/83 09/28/2024 5:55 PM RUBBER STAMPS AND DIES SUPERVISOR Pulse 73 09/28/2024 5:55 PM RUBBER STAMPS AND DIES SUPERVISOR Temperature 36.2 ??C (97.1 ??F) 09/28/2024 5:55 PM CS T Respiratory Rate 18 09/28/2024 5:55 PM RUBBER STAMPS AND DIES SUPERVISOR Oxygen Saturation 98% 09/28/2024 5:55 PM RUBBER STAMPS AND DIES SUPERVISOR Inhaled Oxygen Concentration - - Weight 97.1 kg (214 lb 1.1 oz) 09/28/2024 3:00 P M RUBBER STAMPS AND DIES SUPERVISOR Height 175.3 cm (5' 9 ) 09/28/2024 3:00 PM RUBBER STAMPS AND DIES SUPERVISOR Body Mass Index 31.61 09/28/2024 3:00 PM RUBBER STAMPS AND DIES SUPERVISOR documented in this encounter Discharge Instructions * Discharge Instructions* Syeda Gayle MD - 09/28/2024 5:49 PM RUBBER STAMPS AND DIES SUPERVISOR Today you were treated for a laceration with sutures. Keep wound clean. You will need to have stitches removed in 10-14 days. ER STAMPS AND DIES SUPERVISOR * Attachments The following attachments cannot be sent through Care Everywhere. * Laceration Repair With Stitches Discharge Instructions ([place]) documented in this encounter Medications at Time of Discharge warfarin (COUMADIN) 5 MG tablet Take 4.5 mg by mouth daily. documented as of this encounter ED Notes * Syeda Gayle MD - 09/28/2024 3:24 PM CSTAssociated Order(s): Lac Repair Chief Complaint Chief Complaint Patient presents with Laceration History of Present Illness This is a 74 year old female who is left hand dominant who presents for evaluation of left forearm laceration. She was trying to do project with a 2 x 6 board fell causing wound to her left forearm. She reports mild pain 11/20., she is unsure of her last tetanus. History provided by: Patient Laceration Location: Shoulder/arm Shoulder/arm laceration location: L forearm Depth: Through dermis Quality: jagged Bleeding: controlled Time since incident: 1 hour Laceration mechanism: Blunt object Pain details: Quality: Aching Severity: Mild Timing: Constant Relieved by: Nothing Worsened by: Nothing Tetanus status: Unknown Medical History ALLERGIES: Review of patient's allergies indicates: No Known Allergies MEDICATIONS: Prior to Admission medications Medication Sig Start Date End Date Taking? Authorizing Provider warfarin (COUMADIN) 5 MG tablet Take 4.5 mg by mouth daily. Yes Default History Genericprovider PAST MEDICAL HISTORY: Past Medical History: Diagnosis Date Cancer ([facility]/HCC [facility]/HCC) breast PAST SURGICAL HISTORY: Past Surgical History: Procedure Laterality Date APPENDECTOMY MASTECTOMY Right PC KNEE SCOPE MEDIAL OR LAT MENISCUS REPAIR Right FAMILY HISTORY: No family history on file. SOCIAL HISTORY: Social History Tobacco Use Smoking status: Never Smokeless tobacco: Never Vaping Use Vaping status: Never Used Substance Use Topics Alcohol use: Never Drug use: Never Review of Systems Review of Systems Physical Exam Filed Vitals: 09/28/24 1500 BP: 133/76 Pulse: 91 Resp: 18 Temp: 97.4 ??F (36.3 ??C) TempSrc: Temporal SpO2: 96% Weight: 97.1 kg (214 lb 1.1 oz) Height: 1.753 m (5' 9 ) Physical Exam Vitals and nursing note reviewed. Constitutional: General: She is not in acute distress. Appearance: Normal appearance. She is normal weight. She is not ill-appearing. HENT: Head: Normocephalic and atraumatic. Eyes: Extraocular Movements: Extraocular movements intact. Cardiovascular: Pulses: Normal pulses. Pulmonary: Effort: Pulmonary effort is normal. No respiratory distress. Skin: General: Skin is warm and dry. Capillary Refill: Capillary refill takes less than 2 seconds. Comments: Left forearm laceration approximately 8 cm long with exposed subcutaneous tissue Neurological: Mental Status: She is alert. Mental status is at baseline. Psychiatric: Mood and Affect: Mood normal. Thought Content: Thought content normal. Diagnostic Studies / Procedures ELECTROCARDIOGRAMS: No results found for this visit on 09/28/24. LABORATORY STUDIES: No results found for this visit on 09/28/24. IMAGING STUDIES XR FOREARM LT 2V Final Result by User, [id number] (09/28 4672) [facility] [address] [place] [address] IMAGING STUDIES: XR FOREARM LT 2V DATE: 09/28/2024 3:30 PM COMPARISON: No comparisons. CLINICAL HISTORY: wound, board hit arm . Laceration to mid posterior forearm FINDINGS: There is no evidence of acute fracture, dislocation, or osseous erosion. Mild soft tissue swelling overlying the posterior mid forearm. No radiopaque foreign bodies.. Radial head is intact. Degenerative change of the wrist. IMPRESSION: 1. No fracture or dislocation. Mild soft tissue swelling as above Ordered By: SYEDA GAYLE Interpreted By: Ricci Neal, 09/28/2024 3:51 PM Lac Repair Date/Time: 09/28/2024 5:46 PM Performed by: Syeda Gayle MD Authorized by: Syeda Gayle MD Consent: Consent obtained: Verbal Consent given by: Patient Risks, benefits, and alternatives were discussed: yes Risks discussed: Pain and infection [place] protocol: Patient identity confirmed: Verbally with patient Anesthesia: Anesthesia method: Local infiltration Local anesthetic: Lidocaine 1% WITH epi Laceration details: Location: Shoulder/arm Shoulder/arm location: L lower arm Length (cm): 7.5 Depth (mm): 2 Pre-procedure details: Preparation: Patient was prepped and draped in usual sterile fashion and imaging obtained to evaluate for foreign bodies Exploration: Limited defect created (wound extended): no Hemostasis achieved with: Direct pressure Imaging obtained: x-ray Imaging outcome: foreign body not noted Wound exploration: wound explored through full range of motion and entire depth of wound visualized Wound extent: no fascia violation noted, no foreign bodies/material noted, no muscle damage noted, no nerve damage noted, no tendon damage noted, no underlying fracture noted and no vascular damage noted Contaminated: no Treatment: Area cleansed with: Chlorhexidine Amount of cleaning: Standard Irrigation solution: Sterile saline Irrigation volume: 100 Irrigation method: Syringe Visualized foreign bodies/material removed: no Debridement: None Undermining: None Scar revision: no Skin repair: Repair method: Sutures Suture size: 3-0 Suture material: Nylon Suture technique: Horizontal mattress Number of sutures: 6 Approximation: Approximation: Close Repair type: Repair type: Simple Post-procedure details: Dressing: Antibiotic ointment and non-adherent dressing Procedure completion: Tolerated ED Course / Medical Decision Making Medical Decision Making Clinical Impression Arm laceration, left, initial encounter (Primary) Disposition: Discharge Syeda Gayle MD 09/28/24 1749 ER STAMPS AND DIES SUPERVISOR * Quita Landeros RN - 09/28/2024 3:00 PM CST Patient ambulatory to ED c/o laceration to left forearm. She was doing some work at home and a wooden board fell onto her arm. She rates pain 1/10 at this time. Wound is pressure wrapped. Unknown when she had last tetanus. ER STAMPS AND DIES SUPERVISOR documented in this encounter Plan of Treatment Not on file documented as of this encounter Procedures Procedure Name Priority Date/Time Associated Diagnosis Comments LACERATION REPAIR Routine 09/28/2024 5:4 6 PM RUBBER STAMPS AND DIES SUPERVISOR XR FOREARM LT 2V STAT 09/28/2024 3:48 PM RUBBER STAMPS AND DIES SUPERVISOR documented in this encounter Results * Lac Repair (09/28/2024 5:46 PM RUBBER STAMPS AND DIES SUPERVISOR) Narrative Syeda Gayle MD - 09/28/2024 5:46 PM RUBBER STAMPS AND DIES SUPERVISOR Syeda Gayle MD ? 09/28/2024 ??5:49 PM Lac Repair Date/Time: 09/28/2024 5:46 PM Performed by: Syeda Gayle MD Authorized by: Syeda Gayle MD ?? Consent: ??Consent obtained: ??Verbal ??Consent given by: ??Patient ??Risks, benefits, and alternatives were discussed: yes ?Risks discussed: ??Pain and infection [place] protocol: ??Patient identity confirmed: ??Verbally with patient [...] XR FOREARM LT 2V (09/28/2024 3:48 PM RUBBER STAMPS AND DIES SUPERVISOR) Anatomical Region Laterality Modality Forearm Radiographic Kymberly ging 09/28/2024 3:51 PM RUBBER STAMPS AND DIES SUPERVISOR Impressions 09/28/2024 3:53 PM RUBBER STAMPS AND DIES SUPERVISOR IMPRESSION: 1. ??No fracture or dislocation. Mild soft tissue swelling as above Ordered By: SYEDA GAYLE Interpreted By: Ricci Neal, 09/28/2024 3:51 PM Narrative 09/28/2024 3:53 PM RUBBER STAMPS AND DIES SUPERVISOR [facility] [address] [facility] [place] [address] IMAGING STUDIES: ??XR FOREARM LT 2V ? [...] Procedure Note Torito Neal MD - 09/28/2024 [facility] [address] [place] [address] IMAGING STUDIES: XR FOREARM LT 2V DATE: [...] Syeda Gayle MD GENERAL IMAGING Final Result documented in this encounter Visit Diagnoses Diagnosis Arm laceration, left, initial encounter- Primary documented in this encounter Administered Medications Inactive Administered Medications - up to 3 most recent administrations Medication Order MAR Action Action Date Dose Rate Site bacitracin ointment Topical, Once, 1 dose, On Sat09/28/24 at 1530 Given 09/28/2024 5:50 PM RUBBER STAMPS AND DIES SUPERVISOR lidocaine-EPINEPHrine 1 %-1:543129 injection 0.5 mL 0.5 mL, Intradermal, Once, 1 dose, On Sat09/28/24 at 1530 Given 09/28/2024 5:40 PM RUBBER STAMPS AND DIES SUPERVISOR 0.5 mLs Left Arm documented in this encounter Active and Recently Administered Medications Times are shown in RUBBER STAMPS AND DIES SUPERVISOR. Scheduled Medication Order 09/26/2024 09/27/2024 09/28/2024 bacitracin ointment (COMPLETED) Topical, Once, 1 dose, On Sat09/28/24 at 1530 1750 (Given - Provid er: Quita Landeros RN - Comment: Given by Dr. Syeda Gayle MD.) lidocaine-EPINEPHrine 1 %-1:[id number] injection 0.5 mL (COMPLETED) 0.5 mL, Intradermal, Once, 1 dose, On Sat09/28/24 at 1530 1740 (Given - Provid er: Quita Landeros RN - Comment: Given by Dr. Syeda Gayle MD.) documented in this encounter Care Teams Director Life Sales Relationship Specialty Start Date End Date Ankit Villafuerte DO [address] [address] PCP - General INTERNAL MEDICINE 09/28/24 documented as of this encounter
--- OUTSIDE RECORDS SUMMARY | 2024-11-09 18:26 | XMS_ITS | Encounter Summary ---
Author Organization [facility] Address [address] [place] [address]. [place], [place] [address] [place] [address] Care Team Providers Care Sld Educational Aide Name Role Phone Unavailable Primary Care Provider Unavailabl e Encounter Details Date Type Department Care Team (Latest Contact Info) Description 04/18/2016 Abstract [facility] Madhav South MD [address] [place] [address] Social History Tobacco Use Types Packs/Day Years [...] Procedure Name Priority Date/Time Associated Diagnosis Comments PRV ONLY-RESTING TWELVE LEAD EKG Routine 04/18/2016 7:51 AM CDT documented in this encounter Results * PRV ONLY-RESTING TWELVE LEAD EKG (04/18/2016 7:51 AM CDT) 04/18/2016 7:51 AM CDT 04/18/2016 7:51 AM CDT Narrative [facility] TO EPIC CONVERSION - 04/18/2016 3:40 PM CDT ?? DAMIEN PULIDO ORDERING MD: MADHAV SOUTH MD ?? ACCT: [id number] ?? ADMIT/SERVICE DATE: 04/18/16 DISCHARGE DATE: ?? : 1950 PT TYPE: REG CLI ?? SEX: F ORD SITE: [facility] ?TEST DATE: ?2016-04-18 ?? PAT NAME: ? DAMIEN PULIDO ?DEPARTMENT: CARD ?? 85 ? ROOM: ? GENDER: ? FEMALE ? ENGINEER BOOSTER AND EXHAUSTER: ?? JLP ?? : ?1950 ? REQUESTED BY: MADHAV SOUTH ?? ORDER NUMBER: [id number] ?READING MD: ?? SUDHIR NYKIMBERLY ?MEASUREMENTS ?? INTERVALS ?AXIS ? RATE: ? 60 ? P: ?72 ?? GA: ? 166 ?QRS: ?28 ?? QRSD: ? 76 ? T: ?47 ?? QT: ? 442 ? QTC: ?442 ?INTERPRETIVE STATEMENTS ?? NORMAL SINUS RHYTHM ?? POSSIBLE LEFT ATRIAL ENLARGEMENT ?? BORDERLINE ECG ?? NO PREVIOUS ECG AVAILABLE FOR COMPARISON ?? ELECTRONICALLY SIGNED BY SUDHIR BROOKS AT 04-18-16 15:38:26 CDT ? Procedure Note Lizet Mccoy MD - 09/03/2018 DAMIEN PULIDO ORDERING MD: MADHAV SOUTH MD ACCT: [id number] ADMIT/SERVICE DATE: 04/18/16 DISCHARGE DATE: : 1950 PT TYPE: REG CLI SEX: F ORD SITE: [facility] TEST DATE: 2016-04-18 PAT NAME: DAMIEN PULIDO DEPARTMENT: CARD 85 ROOM: GENDER: FEMALE ENGINEER BOOSTER AND EXHAUSTER: COLLIN : 1950 REQUESTED BY: MADHAV SOUTH ORDER NUMBER: [id number] READING MD: SUDHIR BROOKS MEASUREMENTS INTERVALS AXIS RATE: 60 P: 72 GA: 166 QRS: 28 QRSD: 76 T: 47 QT: 442 QTC: 442 INTERPRETIVE STATEMENTS NORMAL SINUS RHYTHM POSSIBLE LEFT ATRIAL ENLARGEMENT BORDERLINE ECG NO PREVIOUS ECG AVAILABLE FOR COMPARISON ELECTRONICALLY SIGNED BY SUDHIR BROOKS AT 04-18-16 15:38:26 CDT us Madhav South MD ECHO Final Result Performing Organization Address City/State/[facility] Co de Phone Number [facility] TO EPIC CONVERSION documented in this encounter Visit Diagnoses Not on filedocumented in this encounter
--- OUTSIDE RECORDS SUMMARY | 2024-11-09 18:26 | XMS_ITS | Encounter Summary ---
Author Organization [facility] Address [address] [place] [address] Care Team Providers Care Treating Machine Operator Name Role Phone Orestes Flores MD Primary Care Provider [phone] Chris Avalos PA-C Primary Care Provide r Encounter Details Date Type Department Care Team (Late st Contact Info) Description 04/17/2022 Orders Only [facility] - Orthopedics [address] [place] [address], [facility] [place] [address] Michel Mendieta MD [address] [place] [address] OF ORTHOPEDIC SURGERY [place], [place] [id number] Closed fracture of right wrist, initial encounter Social History Tobacco Use Types Packs/Day [...] fracture of right wrist, initial encounter- Primary documented in this encounter Care Teams Treating Machine Operator Relationship Specialty Start Date End Date Orestes Flores MD [address] [facility] [address] [place] [address] PCP - General 08/26/12 04/24/22 Chris Avalos PA-C [address] [place] [address] PCP - General 04/25/22 documented as of this encounter
--- OUTSIDE RECORDS SUMMARY | 2024-11-09 18:26 | XMS_ITS | Encounter Summary ---
Author Organization [facility] Address [address] [place] [address]. [place], [place] [address] [place] [address] Care Team Providers Care Slot Ambassador Name Role Phone Unavailable Primary Care Provider Unavailabl e Encounter Details Date Type Department Care Team (Late st Contact Info) Description 05/29/2016 Abstract [facility] Diagnostic Imaging [address] [place] [address] Orestes Flores MD Social History Tobacco Use [...]
--- OUTSIDE RECORDS SUMMARY | 2024-11-09 18:26 | XMS_ITS | Encounter Summary ---
Author Organization [facility] Address [address] [facility] [place] [address] Care Team Providers Care Hydropulper Name Role Phone Chris Avalos PA-C Primary Care Provide r Encounter Details Date Type Department Care Team (Late st Contact Info) Description 05/31/2022 Orders Only [facility] - Orthopedics [address] [place] [address], [place] [address] Michel Mendieta MD [address] [place] [address] [place] [address] Other closed intra-articular fracture of distal end [...] * XR WRIST RIGHT 3VW OR MORE (06/06/2022 8:56 AM CDT) Anatomical Region Laterality Modality Wrist / Hand Radiographic Kymberly ging 06/06/2022 9:26 AM CDT Impressions 06/06/2022 9:48 AM CDT FINDINGS/IMPRESSION: Redemonstrated internal fixation of the comminuted distal radius fracture. Hardware is intact. The osseous alignment is unchanged. Unchanged ulnar styloid fracture. Unchanged polyarticular degenerative changes. Dictated by Sony Moreno DO (assistant professor of radiology). I, Dr. KEVIN MCDONOUGH MD, [facility] have personally reviewed and interpreted this examination/study. This report was electronically signed by KEVIN MCDONOUGH MD, [facility] ??on 06/06/2022 9:48 AM . Narrative 06/06/2022 9:48 AM CDT EXAMINATION: XR WRIST RIGHT 3VW OR MORE HISTORY: S52.571D: Other closed intra-articular fracture of distal end of right radius with routine healing, subsequent encounter COMPARISON: 05/09/2022 Procedure Note Kevin Mcdonough MD - 06/06/2022 EXAMINATION: XR WRIST RIGHT 3VW OR MORE HISTORY: S52.571D: Other closed intra-articular fracture of distal endof right radius with routine healing, subsequent encounter COMPARISON: 05/09/2022 FINDINGS/IMPRESSION: Redemonstrated internal fixation of the comminuted distal radiusfracture. Hardware is intact. The osseous alignment is unchanged. Unchanged ulnar styloid fracture. Unchanged polyarticular degenerative changes. Dictated by Sony Moreno DO (assistant professor of radiology). IDr. KEVIN MD, [facility] have personally reviewedand interpreted this examination/study. This report was electronically signed by KEVIN MCDONOUGH MD, [facility] on 06/06/2022 9:48 AM . Michel Mendieta MD DIAGNOSTIC IMAGING O RDERABLES documented in this encounter Visit Diagnoses Diagnosis Other closed intra-articular fracture of distal end of right radius with routine healing, subsequent encounter- Primary Other closed intra-articular fracture of distal end of right radius with routine healing, subsequent encounter documented in this encounter Care Teams Hydropulper Relationship Specialty Start Date End Date Chris Avalos PA-C [address] [place] [address] PCP - General 04/25/22 documented as of this encounter
--- OUTSIDE RECORDS SUMMARY | 2024-11-09 18:26 | XMS_ITS | Encounter Summary ---
Author Organization [facility] Address [address] [place] [address]. [place], [place] [address] [place] [address] Care Team Providers Care Supervisor Special Effects Name Role Phone Unavailable Primary Care Provider Unavailabl e Encounter Details Date Type Department Care Team (Late st Contact Info) Description 04/21/2012 Abstract [facility] Diagnostic Imaging [address] [place] [address] Greg Weinberg MD Social History Tobacco Use Types Packs/Day [...] as of this encounter Visit Diagnoses Diagnosis Pain in joint, lower leg documented in this encounter
--- OUTSIDE RECORDS SUMMARY | 2024-11-09 18:26 | XMS_ITS | Encounter Summary ---
Author Organization [facility] Address [address] [place] [address]. [place], [place] [address] [place] [address] Care Team Providers Care Data Entry Representative Name Role Phone Unavailable Primary Care Provider Unavailabl e Encounter Details Date Type Department Care Team (Late st Contact Info) Description 12/15/2010 Abstract [facility] [address] [place], [place] [id number] Madhav South MD [address] [place] [address] Social History Tobacco Use Types Packs/Day Years Used Date Smoking Tobacco: Never Assessed Comments Unknown Sex and Gender Information Value Date Recorded Sex Assigned at Not on file Legal Sex Female 11:00 AM CDT Gender Identity Not on file Sexual Orientation Not on file documented as of this encounter Plan of Treatment Not on file documented as of this encounter Visit Diagnoses Diagnosis Benign neoplasm of colon documented in this encounter
--- OUTSIDE RECORDS SUMMARY | 2024-11-09 18:26 | XMS_ITS | Encounter Summary ---
Author Organization [facility] Address [address] [place] [address] Care Team Providers Care Mri Technologist Name Role Phone Chris Avalos PA-C Primary Care Provide r Encounter Details Date Type Department Care Team (Late st Contact Info) Description 05/08/2022 Orders Only [facility]ics [address] [place] [address], [place] [address] Michel Mendieta MD [address] [place] [address] [place] [address] Other closed intra-articular fracture of distal end of right radius, initial encounter Social History Tobacco Use Types [...] fracture. Report drafted by Giorgi Fagan MD (Occupational Health Nurse). I, Dr. LORNE DENNIS MD have personally [...] fracture. Report drafted by Giorgi Fagan MD (Occupational Health Nurse). I, Dr. LORNE DENNIS MD have personally reviewed and interpreted this examination/study. This report was electronically signed by LORNE DENNIS MD on05/09/2022 9:19 AM . Michel Mendieta MD DIAGNOSTIC IMAGING O RDERABLES documented in this encounter Visit Diagnoses Diagnosis Other closed intra-articular fracture of distal end of right radius, initial encounter- Primary Other closed intra-articular fracture of distal end of right radius, initial encounter documented in this encounter Care Teams Mri Technologist Relationship Specialty Start Date End Date Chris Avalos PA-C [address] [place] [address] PCP - General 04/25/22 documented as of this encounter
--- OUTSIDE RECORDS SUMMARY | 2024-11-09 18:26 | XMS_ITS | Encounter Summary ---
Author Organization [facility] Address [address] [place] [address]. [place], [place] [address] [place] [address] Care Team Providers Care Press Manager Name Role Phone Unavailable Primary Care Provider Unavailabl e Encounter Details Date Type Department Care Team (Late st Contact Info) Description 07/17/2016 Abstract [facility] Diagnostic Imaging [address] [place] [address] Nina Jane MD Social History Tobacco Use Types Packs/Day [...] this encounter Visit Diagnoses Diagnosis Encounter for preprocedural cardiovascular examination Pre-operative cardiovascular examination documented in this encounter
--- OUTSIDE RECORDS SUMMARY | 2024-11-09 18:26 | XMS_ITS | Encounter Summary ---
Author Organization [facility] Address [address] [place] [address]. [place], [place] [address] [place] [address] Care Team Providers Care Electric Power Line Examiner Name Role Phone Unavailable Primary Care Provider Unavailabl e Encounter Details Date Type Department Care Team (Latest Contact Info) Description 04/20/2016 Abstract [facility] Medical Group Madhav South MD [address] [place], [place] [address] Social History Tobacco Use Types Packs/Day Years Used Date Smoking Tobacco: Never Assessed Comments Unknown Sex and Gender Information Value Date Recorded Sex Assigned at Not on file Legal Sex Female 11:00 AM CDT Gender Identity Not on file Sexual Orientation Not on file documented as of this encounter Procedure Notes * Madhav South MD - 04/20/2016 1:26 PM CDT [place] [address] Patient: DAMIEN PULIDO Med Rec#: [id number] Birthdate: 1950 Admit/Svce Date: 04/20/2016 Disch Date: Attending Md: MADHAV SOUTH MD CHART DOCUMENT OPERATION RECORD DATE OF OPERATION: 04/20/2016 History: 66-year-old female, personal history of colonic polyps presents for surveillance examination. Procedure: Informed consent obtained earlier. Patient was seen in the OR, placed in the supine lateral decubitus position. Sedation under MAC anesthesia. Rectal exam is negative. CF-190 colonoscope lubricated and inserted into the rectum, advanced all the way to the cecum. Prep was excellent. Cecum was identified by the ileocecal valve and the appendiceal orifice. Pictures taken. Cecal withdrawal time measured. Cecum, ascending colon, transverse colon, descending, sigmoid, rectum all normal. Retroflexion at the anal verge revealed just mild hemorrhoids. Findings: Negative colonoscopy to the cecum with excellent bowel prep. Mild hemorrhoids only. No polyps are seen today. Recommend: 1. Repeat colonoscopy in 5 years. Electronically Signed by Madhav South MD 04/21/2016 10:36 A PK/sp 04/20/201601:26 P 04/20/2016 02:13 P Job No: [id number] Doc No: [id number] cc: Orestes Flores Jr., MD documented in this encounter Plan of Treatment Not on file documented as of this encounter Visit Diagnoses Not on filedocumented in this encounter
--- OUTSIDE RECORDS SUMMARY | 2024-11-09 18:26 | XMS_ITS | Encounter Summary ---
Author Organization [facility] Address [address] [facility] [place] [address] Care Team Providers Care Miter Saw Operator Name Role Phone Chris Avalos PA-C Primary Care Provide r Encounter Details Date Type Department Care Team (Late st Contact Info) Description 05/09/2022 9:00 AM CDT Office Visit [facility] - Orthopedics [address] [place] [address], [facility] [place] [address] Michel Mendieta MD [address] [place] [address] [place] [address] Other closed intra-articular fracture of distal end [...] - - Weight 87.5 kg (193 lb) 05/09/2022 8:46 AM CDT Height - - Body Mass Index 28.5 04/30/2022 9:12 AM CDT documented in this [...] this encounter Patient Instructions * Patient Instructions* Murphy Renteria - 05/09/2022 9:08 AM CDT Images from the original note were not included. Department of Orthopaedic Surgery Damien Jillian Tess 05/09/2022 Thank you for allowing us to care for you today. You were seen in clinic today for your right wrist. Please use this note as a school/work excuse: patient had appointment on 05/09/2022. Diagnosis: Right distal radius fracture Your weight bearing (WB) status will be NWB of the right upper extremity We recommend that you try the following for your injury: 1. Weight limit of 5 lbs 2. Shower: OK to shower, pat dry. No submersion 3. Work with occupational therapy 4. Wear removable brace Prescriptions: None Medications over the counter: - Acetaminophen (Tylenol) [...] the clinic if you have any questions. [facility] Orthopaedic office contact information: [facility] ([facility]) - 1st Floor [address] [place] [address] Visit our website at [email or web address] for information about our practice and an interactive health encyclopedia. Please visit [email or web address] to access your health record, ask questions, request medication refills, and request appointments for non-urgent needs after you have configured your [employer] account. If you do not currently have access, please contact one of our staff members or call [phone]. For after hour emergencies, please call [phone] and press 0 for the prefinish operator in order to page the orthopedic resident immigration case worker. documented in this encounter Progress Notes * Michel Mendieta MD - 05/09/2022 12:29 PM CDT Damien Pulido 72 year old female CSN: [id number] Date of service: 05/09/2022 HPI Damien Pulido is a 72 year old female who had a closed punch fracture of the right distal fracture and was treated with ORIF of her distal radius on 04/30/22. This is the patient's first visit since being discharged from hospital on 04/30/22. Pain has been controlled since the hospital discharge. The pain is located on the volar aspect of her wrist. Patient describes the pain as dull ache. Symptoms are aggravated by movement. Symptoms improve with rest. She is taking tylenol for pain. The patient has been NWB of the right upper extremity since she was last seen. No other orthopedic complaints at this time. Denies any recent fever or chills, tingling, numbness. She is a non-smoker. 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 Review of Systems A complete organ system review completed and is only significant for content mentioned in the HPI. Medical History Past Medical History: Diagnosis Date ??? Disorder of thyroid ??? Malignant neoplasm of right breast lumpectomy and then mastectomy ??? Snoring Surgical History Past Surgical History: Procedure Laterality Date ??? Appendectomy ??? Cholecystectomy ??? Wrist Fracture Repair Right 04/30/2022 Right; OPEN REDUCTION INTERNAL FIXATION RIGHT WRIST MEDICATIONS Current Outpatient Medications on File Prior [...] tablet by mouth every 6 hours asneeded 28 tablet 0 ??? letrozole (FEMARA) 2.5 MG tablet Take 2.5 mg by mouth once daily ??? levothyroxine (SYNTHROID) 100 MCG tablet Take 100 mcg by mouth at bedtime ??? montelukast (SINGULAIR) 10 MG tablet Take 10 mg by mouth once daily ??? pancrelipase (CREON 12,000) [address]5775-[address] units capsule (Patient not taking: No sig [...] Alcohol use: Yes Comment: social Physical Exam Wt 87.5 kg (193 lb) BMI 28.5 kg/m2 General exam: patient cooperative with exam Constitutional: well developed, well nourished, no acute distress Head: normocephalic, atraumatic ENT: moist oral mucosa Eyes: non-icteric sclera Cardiovascular: regular rate Respiratory: effort normal, no respiratory distress Neurological: awake, AOx4 Psychiatric: no distress, mood and affect normal, behavior normal, judgment and thought content normal. Left upper extremity: Incision: well approximated incision, clean, dry, and intact without evidenceof erythema, dehiscence, or drainage. There is tenderness of the volar aspect of the wrist. ROM of wrist is limited by pain. Intact motor R/M/U/AIN/PIN, Sensation: intact to light touch in R/M/U nerve distributions distally, 2+ Radial pulse. Imaging Results independently reviewed in clinic. XR 3 VW: Demonstrates good alignment . Hardware is intact with no evidence of loose or broken screws. Assessment and Plan 72 year old female with a closed punch fracture of the right distal radius s/p ORIF on 04/30 1. Ms. Pulido was counseled as to her diagnosis 2. Images reviewed in office with patient 3. She demonstrated understanding 4. The patient's weight bearing status will be NWB of the right upper extremity 5. The patient was placed into a removable cast today. 6. Bonbon Cream Warmer ROM of joints along with Vitamin D and calcium supplementation for bone health. 7. Work: limited to light duty - lifting no greater than 5 pounds 8. Prescriptions: none 9. Follow up in 1month 10. XR needed at follow up: Yes - 3 view(s) XR of the right wrist 11. She will call in the interim with any questions or concerns. * Rakesh Choi RN - 05/09/2022 9:00 AM CDT Patient here s/p ORIF R Distal Radius Fracture, NWB RUE , splint removed today. Incision site cleanand dry , well approximated. Pain is minimal and controlled, takes OTC Tylenol PRN. Swelling is minimal, denies numbness, tingling, fever or chills. Placed in an Exos splint. * Myra Murphy Jillian - 05/09/2022 8:47 AM CDT Orthopaedic Trauma Surgery Clinic Note Damien Pulido 72 year old female [facility]: [id number] Date of service: 05/09/2022 HPI Damien Pulido is a 72 year old female who had a closed punch fracture of the right distal fracture and was treated with ORIF of her distal radius on 04/30/22. This is the patient's first visit since being discharged from hospital on 04/30/22. Pain has been controlled since the hospital discharge. The pain is located on the volar aspect of her wrist. Patient describes the pain as dull ache. Symptoms are aggravated by movement. Symptoms improve with rest. She is taking tylenol for pain. The patient has been NWB of the right upper extremity since she was last seen. No other orthopedic complaints at this time. Denies any recent fever or chills, tingling, numbness. She is a non-smoker. 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 Review of Systems Murphy Renteria 05/09/2022 8:48 AM documented in this encounter Plan of Treatment Not on file documented as of this encounter Visit Diagnoses Diagnosis Other closed intra-articular fracture of distal end of right radius, initial encounter- Primary documented in this encounter Care Teams Miter Saw Operator Relationship Specialty Start Date End Date Chris Avalos PA-C [address] [place] [address] PCP - General 04/25/22 documented as of this encounter
--- OUTSIDE RECORDS SUMMARY | 2024-11-09 18:26 | XMS_ITS | Encounter Summary ---
Author Organization [facility] Address [address] [facility] [place] [address] Care Team Providers Care Evaluator Transfer Students Name Role Phone Chris Avalos PA-C Primary Care Provide r Encounter Details Date Type Department Care Team (Late st Contact Info) Description 06/06/2022 8:36 AM CDT - 06/06/2022 11:59 PM CDT Hospital Encounter [facility] [address] [facility] [place] [address] Michel Mendieta MD [facility] [place] [address] Discharge Disposition: Home or Self Care Social [...] mouth once daily 02/21/2022 pancrelipase (CREON 12,000) 81199-9[address]98 units capsule rOPINIRole (REQUIP) 0.25 MG tablet Take 0.25 mg by mouth at bedtime 02/07/2022 warfarin (COUMADIN) 2 MG tablet Take 5 mg by mouth once daily 02/20/2022 documented as of this encounter Plan of Treatment Not on file documented as of this encounter Procedures Procedure Name Priority Date/Time Associated Diagnosis Comments XR WRIST RIGHT 3VW OR MORE Routine 06/06/2022 8:56 AM CDT Other closed intra-articular fracture of [...] degenerative changes. Dictated by Sony Moreno DO (vice president regulatory). I, Dr. KEVIN MCDONOUGH MD, [facility] have personally reviewed and interpreted this examination/study. This report was electronically signed by KEVIN MCDONOUGH MD, [facility] ??on 06/06/2022 9:48 AM . Narrative 06/06/2022 [...] degenerative changes. Dictated by Sony Moreno DO (vice president regulatory). I, Dr. KEVIN MCDONOUGH MD, [facility] have personally reviewedand interpreted this examination/study. This report was electronically signed by KEVIN MCDONOUGH MD, [facility] on 06/06/2022 9:48 AM . Michel Mendieta MD DIAGNOSTIC IMAGING O RDERABLES documented in this encounter Visit Diagnoses Diagnosis Other closed intra-articular fracture of distal end of right radius with routine healing, subsequent encounter documented in this encounter Care Teams Evaluator Transfer Students Relationship Specialty Start Date End Date Chris Avalos PA-C [address] [place], [place] [id number] PCP - General 04/25/22 documented as of this encounter
--- OUTSIDE RECORDS SUMMARY | 2024-11-09 18:26 | XMS_ITS | Encounter Summary ---
Author Organization [facility] Address [address] [place] [address]. [place], [place] [address] [place] [address] Care Team Providers Care Mrb Engineer Name Role Phone Unavailable Primary Care Provider Unavailabl e Encounter Details Date Type Department Care Team (Late st Contact Info) Description 10/14/2009 Abstract [facility] [address] [place] [address] Soy Barriga MD [address] [place] [address] Social History Tobacco Use Types Packs/Day Years [...]
--- OUTSIDE RECORDS SUMMARY | 2024-11-09 18:26 | XMS_ITS | Clinical Summary ---
Author Organization [facility] Address [address] [place] [address] Care Team Providers Care Microbiology Director Name Role Phone Chris Avalos PA-C Primary Care Provide r Source Comments [facility],non-owned Affiliates and Associated Physician Practices is amultiple site organization consisting of ambulatory clinics and hospital sitesin [place], [place], [place] and [place]. This disclosure is being madepursuant to the Care Everywhere program and may not contain all information available regarding this patient. Last updated 18.[facility] [employer] Allergies No known active allergies Medications * [...] at bedtime 02/07/2022 Active pancrelipase (CREON 12,000) 68788-07082 units capsule Active levothyroxine (SYNTHROID) 100 MCG [...] Mass Index 28.5 06/06/2022 9:06 AM CDT Plan of Treatment Health Maintenance Due Date Last Done Comments BONE DENSITY TESTING 1950 COLOGUARD (AGES 45-75) - COL ON CA SCREENING 1952 COLON MONITORING 1952 COLONOSCOPY - COLON CA SCREENING 1952 CT COLONOGRAPHY - COLON CA SCREENING 1952 Colorectal Cancer Screening 1952 FIT - COLON CA SCREENING 1952 FLEX SIG - COLON CA SCREENING 1952 LIPID TESTING 1952 MAMMOGRAM 1952 MEDICARE AWV ? 12 MONTHS 1952 HEPATITIS C SCREENING 03/08/1970 ZOSTER VACCINE (1 of 2) 2002 PNEUMOCOCCAL VACCINE 65+ (1 of 1 - PCV) 2017 SCREENING FOR DIABETES 04/25/2022 DEPRESSION SCREENING 11/11/2023 COVID-19 VACCINE (3 - 2023-2 5 season) 2024 01/07/2021, 12/10/2020 INFLUENZA VACCINE (#1) 2024 07/13/2020 Respiratory Syncytial Virus (RSV) Vaccine Pt: or over 60 yrs (1 - 1-dose 75+ series) 2027 DTAP/TDAP/TD VACCINES (2 - T d or Tdap) 04/09/2032 04/09/2022 HEPATITIS B VACCINE Aged Out No longe r eligible based on patient's age to complete this topic HIB VACCINE Aged Out No longer eligi ble based on patient's age to complete this topic HPV VACCINE Aged Out No longer eligi ble based on patient's age to complete this topic MENINGOCOCCAL VACCINE Aged Out No fred anali eligible based on patient's age to complete this topic Medical Devices Implanted Type Area Fiscal Clerk Device Identifier Shelf Expiration Date Model / Serial / Lot Screw Implanted:Qty: 1 on 04/30/2022 by Michel Mendieta MD at [facility] Right: Wrist [employer] [id number] / / Screw 2.7mm 20mm Mldir Nonster Bone Implanted:Qty: 1 on 04/30/2022 by Michel Mendieta MD at [facility] Right: Wrist [employer] [id number] / / Plate Implanted:Qty: 1 on 04/30/2022 by Michel Mendieta MD at [facility] Right: Wrist [employer] [id number] / / Screw 2.7mm 14mm Lopro Nonster Bone Lf Implanted:Qty: 2 on 04/30/2022 by Michel Mendieta MD at [facility] Right: Wrist [employer] [id number] / / Screw Implanted:Qty: 1 on 04/30/2022 by Michel Mendieta MD at [facility] Right: Wrist [employer] [id number] / / Screw 2.7mm 20mm Crsslck Tpr Head 3 Ld Implanted:Qty: 3 on 04/30/2022 by Michel Mendieta MD at [facility] Right: Wrist [employer] [id number] / / Screw 2.7mm 22mm Lck Jesse Nonster Bone Implanted:Qty: 2 on 04/30/2022 by Michel Mendieta MD at [facility] Right: Wrist [employer] [id number] / / Explanted Type Area Fiscal Clerk Device Identifier Shelf Expiration Date Model / Serial / Lot Wire K .062in 6in Fx 2 Troc Explanted:Qty: 2 on 04/30/2022 by Michel Mendieta MD at [facility] Right: Wrist [employer] [id number] / / Wire K 1.6mm Ss Fx Nonster Explanted:Qty: 3 on 04/30/2022 by Michel Mendieta MD at [facility] Right: Wrist [employer] [id number] / / Screw 2.7mm 20mm Crsslck Lopro Nonlock Explanted:Qty: 1 on 04/30/2022 by Michel Mendieta MD at [facility] Right: Wrist [employer] [id number] / / Screw 2.7mm 20mm Crsslck Lopro Nonlock Explanted:Qty: 1 on 04/30/2022 by Michel Mendieta MD at [facility] Right: Wrist [employer] [id number] / / Care Teams Microbiology Director Relationship Specialty Start Date End Date Chris Avalos PA-C [address] [place] [address] PCP - General 04/25/22
--- OUTSIDE RECORDS SUMMARY | 2024-11-09 18:26 | XMS_ITS | Encounter Summary ---
Author Organization [facility] Address [address] [place] [address]. [place], [place] [address] [place] [address] Care Team Providers Care Planning Division Superintendent Name Role Phone Unavailable Primary Care Provider Unavailabl e Encounter Details Date Type Department Care Team (Late st Contact Info) Description 12/30/2007 Abstract SJB CONVERSION [address] [place] [address] Orestes Flores MD Social History Tobacco Use [...]
--- OUTSIDE RECORDS SUMMARY | 2024-11-09 18:26 | XMS_ITS | Encounter Summary ---
Author Organization [facility] Address [address] [place] [address]. [place] [id number] [place] [address] Care Team Providers Care Splicer Apprentice Name Role Phone Ankit Villafuerte DO Primary Care Provider [phone] Encounter Details Date Type Department Care Team (Latest Contact Info) Description 09/28/2024 Travel Social History Tobacco Use Types Packs/Day Years [...] on filedocumented in this encounter Care Teams Splicer Apprentice Relationship Specialty Start Date End Date Ankit Villafuerte DO [address] [place] [address] PCP - General INTERNAL MEDICINE 09/28/24 documented as of this encounter
--- OUTSIDE RECORDS SUMMARY | 2024-11-09 18:26 | XMS_ITS | Encounter Summary ---
Author Organization [facility] Address [address] [place] [address] Care Team Providers Care Shop Mechanic Helper Name Role Phone Chris Avalos PA-C Primary Care Provide r Encounter Details Date Type Department Care Team (Late st Contact Info) Description 08/08/2022 Orders Only [facility] [address] [place] [address], [place] [address] Michel Mendieta MD [address] [place] [address] [place] [address] Other closed intra-articular fracture of distal end [...] Primary documented in this encounter Care Teams Shop Mechanic Helper Relationship Specialty Start Date End Date Chris Avalos PA-C [address] [place] [address] PCP - General 04/25/22 documented as of this encounter
--- OUTSIDE RECORDS SUMMARY | 2024-11-09 18:26 | XMS_ITS | Encounter Summary ---
Author Organization [facility] Address [address] [place] [address] Care Team Providers Care Prototype Assembler Electronics Name Role Phone Chris Avalos PA-C Primary Care Provide r Reason for Visit * Reason Onset Date Comments Order Information Change 05/15/2022 Encounter Details Date Type Department Care Team (Late st Contact Info) Description 05/15/2022 Telephone [facility] [address] [place] [address], [place] [address] Michel Mendieta MD [address] [place] [address] [place] [address] Order Information Change Social History Tobacco Use Types Packs/Day Years [...] No 04/30/2022 documented as of this encounter Miscellaneous Notes * Telephone Encounter - Giselle Kelley - 05/15/2022 4:22 PM CDT Please change her order from OT to PT patient want to have therapy at the [facility] where her went and they do not have an OT at this location. documented in this encounter Plan of Treatment Not on file documented as of this encounter Visit Diagnoses Not on filedocumented in this encounter Care Teams Prototype Assembler Electronics Relationship Specialty Start Date End Date Chris Avalos PA-C [address] [place] [address] PCP - General 04/25/22 documented as of this encounter
--- OUTSIDE RECORDS SUMMARY | 2024-11-09 18:27 | XMS_ITS | Encounter Summary ---
Author Organization [facility] Address [address] [place] [address]. [place], [place] [address] [place] [address] Care Team Providers Care Critical Care Technician Name Role Phone Unavailable Primary Care Provider Unavailabl e Encounter Details Date Type Department Care Team (Late st Contact Info) Description 01/10/1996 Abstract SJB CONVERSION [address] [place] [address] , Generic Conversion, Social History Tobacco Use Types Packs/Day Years [...]
--- OUTSIDE RECORDS SUMMARY | 2024-11-09 18:27 | XMS_ITS | Encounter Summary ---
Author Organization [facility] Address [address] [place] [address]. [place], [place] [address] [place] [address] Care Team Providers Care Professor Of Pathology Name Role Phone Unavailable Primary Care Provider Unavailabl e Encounter Details Date Type Department Care Team (Late st Contact Info) Description 07/09/2003 Abstract SJB CONVERSION [address] [place] [address] , Generic Conversion, Social History Tobacco Use [...]
--- OUTSIDE RECORDS SUMMARY | 2024-11-09 18:27 | XMS_ITS | Encounter Summary ---
Author Organization [facility] Address [address] [place] [address]. [place], [place] [address] [place] [address] Care Team Providers Care Prototype Engineer Name Role Phone Unavailable Primary Care Provider Unavailabl e Encounter Details Date Type Department Care Team (Late st Contact Info) Description 05/11/2002 Abstract SJB CONVERSION [address] [place] [address] , Generic Conversion, Social History Tobacco Use [...]
--- OUTSIDE RECORDS SUMMARY | 2024-11-09 18:27 | XMS_ITS | Encounter Summary ---
Author Organization [facility] Address [address] [place] [address]. [place], [place] [address] [place] [address] Care Team Providers Care Phosphatic Fertilizer Supervisor Name Role Phone Unavailable Primary Care Provider Unavailabl e Encounter Details Date Type Department Care Team (Late st Contact Info) Description 01/15/2000 Abstract SJB CONVERSION [address] [place] [address] , Generic Conversion, Social History Tobacco Use [...]
--- OUTSIDE RECORDS SUMMARY | 2024-11-09 18:27 | XMS_ITS | Encounter Summary ---
Author Organization [facility] Address [address] [place] [address]. [place], [place] [address] [place] [address] Care Team Providers Care Celery Stripper Name Role Phone Unavailable Primary Care Provider Unavailabl e Encounter Details Date Type Department Care Team (Late st Contact Info) Description 07/31/2006 Abstract SJB CONVERSION [address] [place], [place] [id number] Mary Mckeon, CLASSROOM TECHNOLOGY COACH [address] [place] [address] Social History Tobacco Use Types Packs/Day Years [...]
--- OUTSIDE RECORDS SUMMARY | 2024-11-09 18:27 | XMS_ITS | Encounter Summary ---
Author Organization [facility] Address [address] [place] [address]. [place], [place] [address] [place] [address] Care Team Providers Care Experimental Rocketsled Mechanic Name Role Phone Unavailable Primary Care Provider Unavailabl e Encounter Details Date Type Department Care Team (Late st Contact Info) Description 12/21/2001 Abstract SJB CONVERSION [address] [place] [address] , Generic Conversion, Social History Tobacco Use [...]
--- OUTSIDE RECORDS SUMMARY | 2024-11-09 18:27 | XMS_ITS | Encounter Summary ---
Author Organization [facility] Address [address] [place] [address]. [place], [place] [address] [place] [address] Care Team Providers Care Delineator Name Role Phone Unavailable Primary Care Provider Unavailabl e Encounter Details Date Type Department Care Team (Late st Contact Info) Description 07/24/2004 Abstract SJB CONVERSION [address] [place] [address] Social History Tobacco Use Types Packs/Day Years [...]
--- OUTSIDE RECORDS SUMMARY | 2024-11-09 18:27 | XMS_ITS | Encounter Summary ---
Author Organization [facility] Address [address] [place] [address]. [place], [place] [address] [place] [address] Care Team Providers Care Crime Scene Photographer Name Role Phone Unavailable Primary Care Provider Unavailabl e Encounter Details Date Type Department Care Team (Late st Contact Info) Description 04/10/1995 Abstract SJB CONVERSION [address] [place] [address] , Generic Conversion, Social History Tobacco Use [...]
--- OUTSIDE RECORDS SUMMARY | 2024-11-09 18:27 | XMS_ITS | Encounter Summary ---
Author Organization [facility] Address [address] [place] [address]. [place], [place] [address] [place] [address] Care Team Providers Care International Accounting Manager Name Role Phone Unavailable Primary Care Provider Unavailabl e Encounter Details Date Type Department Care Team (Late st Contact Info) Description 07/20/2002 Abstract SJB CONVERSION [address] [place] [address] , Generic Conversion, Social History Tobacco Use [...]
--- OUTSIDE RECORDS SUMMARY | 2024-11-09 18:27 | XMS_ITS | Encounter Summary ---
Author Organization [facility] Address [address] [place] [address]. [place], [place] [address] [place] [address] Care Team Providers Care 6Th Grade Teacher Name Role Phone Unavailable Primary Care Provider Unavailabl e Encounter Details Date Type Department Care Team (Late st Contact Info) Description 02/11/1995 Abstract SJB CONVERSION [address] [place] [address] , Generic Conversion, Social History Tobacco Use [...]
--- OUTSIDE RECORDS SUMMARY | 2024-11-09 18:27 | XMS_ITS | Encounter Summary ---
Author Organization [facility] Address [address] [place] [address]. [place], [place] [address] [place] [address] Care Team Providers Care Trim Setter Helper Name Role Phone Unavailable Primary Care Provider Unavailabl e Encounter Details Date Type Department Care Team (Late st Contact Info) Description 08/08/2005 Abstract SJB CONVERSION [address] [place] [address] Soy Barriga MD [address] [place] [address] Social History Tobacco Use Types Packs/Day Years [...]
--- OUTSIDE RECORDS SUMMARY | 2024-11-09 18:27 | XMS_ITS | Encounter Summary ---
Author Organization [facility] Address [address] [place] [address]. [place], [place] [address] [place] [address] Care Team Providers Care Snowsport Instructor Name Role Phone Unavailable Primary Care Provider Unavailabl e Encounter Details Date Type Department Care Team (Late st Contact Info) Description 02/20/1995 Abstract SJB CONVERSION [address] [place] [address] , Generic Conversion, Social History Tobacco Use [...]
--- OUTSIDE RECORDS SUMMARY | 2024-11-09 18:27 | XMS_ITS | Encounter Summary ---
Author Organization [facility] Address [address] [place] [address]. [place], [place] [address] [place] [address] Care Team Providers Care Solar Photovoltaic Electrician Name Role Phone Unavailable Primary Care Provider Unavailabl e Encounter Details Date Type Department Care Team (Late st Contact Info) Description 07/26/2003 Abstract SJB CONVERSION [address] [place] [address] , Generic Conversion, Social History Tobacco Use [...]
--- OUTSIDE RECORDS SUMMARY | 2024-11-09 18:27 | XMS_ITS | Encounter Summary ---
Author Organization [facility] Address [address] [place] [address]. [place], [place] [address] [place] [address] Care Team Providers Care Solutions Sales Consultant Name Role Phone Unavailable Primary Care Provider Unavailabl e Encounter Details Date Type Department Care Team (Late st Contact Info) Description 01/26/1997 Abstract SJB CONVERSION [address] [place] [address] , Generic Conversion, Social History Tobacco Use [...]
--- OUTSIDE RECORDS SUMMARY | 2024-11-09 18:27 | XMS_ITS | Encounter Summary ---
Author Organization [facility] Address [address] [place] [address]. [place], [place] [address] [place] [address] Care Team Providers Care Nuclear Equipment Operator Name Role Phone Unavailable Primary Care Provider Unavailabl e Encounter Details Date Type Department Care Team (Late st Contact Info) Description 07/10/2001 Abstract SJB CONVERSION [address] [place] [address] , Generic Conversion, Social History Tobacco Use [...]
--- OUTSIDE RECORDS SUMMARY | 2024-11-09 18:27 | XMS_ITS | Encounter Summary ---
Author Organization [facility] Address [address] [place] [address]. [place], [place] [address] [place] [address] Care Team Providers Care Art Appraiser Name Role Phone Unavailable Primary Care Provider Unavailabl e Encounter Details Date Type Department Care Team (Late st Contact Info) Description 09/04/2000 Abstract SJB CONVERSION [address] [place] [address] , Generic Conversion, Social History Tobacco Use [...]
--- OUTSIDE RECORDS SUMMARY | 2024-11-09 18:27 | XMS_ITS | Encounter Summary ---
Author Organization [facility] Address [address] [place] [address]. [place], [place] [address] [place] [address] Care Team Providers Care Manager Billing Name Role Phone Unavailable Primary Care Provider Unavailabl e Encounter Details Date Type Department Care Team (Late st Contact Info) Description 07/03/2006 Abstract SJB CONVERSION [address] [place], [place] [id number] Mary Mckeon, SEWING MACHINE OPERATOR [address] [place] [address] Social History Tobacco Use Types Packs/Day Years [...]
--- OUTSIDE RECORDS SUMMARY | 2024-11-09 18:27 | XMS_ITS | Encounter Summary ---
Author Organization [facility] Address [address] [place] [address]. [place], [place] [address] [place] [address] Care Team Providers Care Comsec Manager Name Role Phone Unavailable Primary Care Provider Unavailabl e Encounter Details Date Type Department Care Team (Late st Contact Info) Description 10/30/2004 Abstract SJB CONVERSION [address] [place] [address] Orestes Flores MD Social History Tobacco Use [...]
--- OUTSIDE RECORDS SUMMARY | 2024-11-09 18:27 | XMS_ITS | Encounter Summary ---
Author Organization [facility] Address [address] [place] [address]. [place], [place] [address] [place] [address] Care Team Providers Care College Archivist Name Role Phone Unavailable Primary Care Provider Unavailabl e Encounter Details Date Type Department Care Team (Late st Contact Info) Description 12/20/1998 Abstract SJB CONVERSION [address] [place] [address] , Generic Conversion, Social History Tobacco Use [...]
--- OUTSIDE RECORDS SUMMARY | 2024-11-09 18:27 | XMS_ITS | Encounter Summary ---
Author Organization [facility] Address [address] [place] [address]. [place], [place] [address] [place] [address] Care Team Providers Care Clip On Sunglasses Assembler Name Role Phone Unavailable Primary Care Provider Unavailabl e Encounter Details Date Type Department Care Team (Late st Contact Info) Description 02/18/1994 Abstract SJB CONVERSION [address] [place] [address] , Generic Conversion, Social History Tobacco Use [...]
--- OUTSIDE RECORDS SUMMARY | 2024-11-09 18:27 | XMS_ITS | Encounter Summary ---
Author Organization [facility] Address [address] [place] [address]. [place], [place] [address] [place] [address] Care Team Providers Care Residential Caregiver Name Role Phone Unavailable Primary Care Provider Unavailabl e Encounter Details Date Type Department Care Team (Late st Contact Info) Description 08/16/2006 Abstract SJB CONVERSION [address] [place] [address] Soy Barriga MD [address] [place] [address] Social History Tobacco Use Types Packs/Day Years [...]
--- OUTSIDE RECORDS SUMMARY | 2024-11-09 18:27 | XMS_ITS | Encounter Summary ---
Author Organization [facility] Address [address] [place] [address]. [place], [place] [address] [place] [address] Care Team Providers Care Parking Lot Supervisor Name Role Phone Unavailable Primary Care Provider Unavailabl e Encounter Details Date Type Department Care Team (Late st Contact Info) Description 09/24/2000 Abstract SJB CONVERSION [address] [place] [address] , Generic Conversion, Social History Tobacco Use [...]
--- OUTSIDE RECORDS SUMMARY | 2024-11-09 18:27 | XMS_ITS | Encounter Summary ---
Author Organization [facility] Address [address] [place] [address]. [place], [place] [address] [place] [address] Care Team Providers Care City Wellness Coordinator Name Role Phone Unavailable Primary Care Provider Unavailabl e Encounter Details Date Type Department Care Team (Late st Contact Info) Description 09/18/2000 Abstract SJB CONVERSION [address] [place] [address] , Generic Conversion, Social History Tobacco Use [...]
--- OUTSIDE RECORDS SUMMARY | 2024-11-09 18:27 | XMS_ITS | Encounter Summary ---
Author Organization [facility] Address [address] [place] [address]. [place], [place] [address] [place] [address] Care Team Providers Care Solution Engineer Name Role Phone Unavailable Primary Care Provider Unavailabl e Encounter Details Date Type Department Care Team (Late st Contact Info) Description 03/16/1995 Abstract SJB CONVERSION [address] [place] [address] , Generic Conversion, Social History Tobacco Use [...]
--- OUTSIDE RECORDS SUMMARY | 2024-11-09 18:27 | XMS_ITS | Encounter Summary ---
Author Organization [facility] Address [address] [place] [address]. [place], [place] [address] [place] [address] Care Team Providers Care Sunday School Missionary Name Role Phone Unavailable Primary Care Provider Unavailabl e Encounter Details Date Type Department Care Team (Late st Contact Info) Description 02/16/1995 Abstract SJB CONVERSION [address] [place] [address] , Generic Conversion, Social History Tobacco Use [...]
--- OUTSIDE RECORDS SUMMARY | 2024-11-09 18:27 | XMS_ITS | Encounter Summary ---
Author Organization [facility] Address [address] [place] [address]. [place], [place] [address] [place] [address] Care Team Providers Care Adjunct Physics Instructor Name Role Phone Unavailable Primary Care Provider Unavailabl e Encounter Details Date Type Department Care Team (Late st Contact Info) Description 08/13/2007 Abstract SJB CONVERSION [address] [place] [address] Angi Marie MD Social History Tobacco Use Types Packs/Day [...]
--- OUTSIDE RECORDS SUMMARY | 2024-11-09 18:27 | XMS_ITS | Encounter Summary ---
Author Organization [facility] Address [address] [place] [address]. [place], [place] [address] [place] [address] Care Team Providers Care Yield Improvement Engineer Name Role Phone Unavailable Primary Care Provider Unavailabl e Encounter Details Date Type Department Care Team (Late st Contact Info) Description 11/19/1997 Abstract SJB CONVERSION [address] [place] [address] , Generic Conversion, Social History Tobacco Use [...]
--- OUTSIDE RECORDS SUMMARY | 2024-11-09 18:32 | XMS_ITS | Encounter Summary ---
Author Organization [facility] Address [address] [place] [address] Care Team Providers Care Gre Instructor Name Role Phone Ankit Villafuerte DO Primary Care Provider [phone] Reason for Visit * Reason Comments Med Refill Encounter Details Date Type Department Care Team ([facility] Contact Info) Description 10/16/2024 Refill [facility] Oncology and Hematology [facility] [address] [place] [address] Lj Fam MD [address] [place] [address] [employer] [address] [place] [phone] Social History Tobacco Use Types Packs/Day Years Used Date Smoking Tobacco: Never Alcohol Use Standard Drinks/Week Comments Yes 0 (1 standard drink = 0.6 oz pur e alcohol) Sex and Gender Information Value Date Recorded Sex Assigned at Not on file Gender Identity Not on file Sexual Orientation Not on file documented as of this encounter Plan of Treatment Upcoming Encounters Date Type Department Care Team (Late Contact Info) Description 02/01/2025 11:00 AM CDT Office Visit [facility] Oncology and Hematology [address] [place] [address] Lj Fam MD [address] [place] [address] [employer] [address] [place] [address] documented as of this encounter Visit Diagnoses Not on filedocumented in this encounter Care Teams Gre Instructor Relationship Specialty Start Date End Date Ankit Villafuerte DO [address] [place] [phone] PCP - General Internal Medicine 07/30/24 documented as of this encounter
--- OUTSIDE RECORDS SUMMARY | 2024-11-09 18:32 | XMS_ITS | Encounter Summary ---
Author Organization [facility] [employer] [facility] Address [address] [place] [address] Care Team Providers Care Clinical Operations Leader Name Role Phone Orestes Flores MD Primary Care Provider [phone] Encounter Details Date Type Department Care Team (Late Contact Info) Description 07/23/2024 Orders Only [facility] Oncology and Hematology [place] [address] [place] [address] Lj Fam MD [address] [place] [address] [employer] [address] [place] [address] Social History Tobacco Use Types Packs/Day Years [...] Description 02/01/2025 11:00 AM CDT Office Visit [facility] Oncology and Hematology [address] [place] [address] Lj Fam MD [address] [place] [address] [employer] [address] [place] [address] documented as of this encounter Procedures Procedure Name Priority Date/Time Associated Diagnosis Comments CANCER ANTIGEN 15-3 Routine 07/20/2024 10:42 AM CDT documented in this encounter Results * CANCER ANTIGEN 15-3 (07/20/2024 10:42 AM CDT) Blood Lj Fam MD CHEMISTRY ORDERABLES documented in this encounter Visit Diagnoses Not on filedocumented in this encounter Care Teams Clinical Operations Leader Relationship Specialty Start Date End Date Orestes Flores MD [address] [place] [address] PCP - General Internal Medicine 12/09/17 07/29/24 documented as of this encounter
--- OUTSIDE RECORDS SUMMARY | 2024-11-09 18:32 | XMS_ITS | Encounter Summary ---
Author Organization [facility] Address [address] [place] [address] Care Team Providers Care Principal Account Clerk Name Role Phone Ankit Villafuerte DO Primary Care Provider [phone] Reason for Visit * Reason Comments Follow Up Cancer Encounter Details Date Type Department Care Team (Late st Contact Info) Description 07/30/2024 11:30 AM CDT Office Visit [facility] Oncology and Hematology [facility] [address] [facility] [address] [place] [address] Lj aFm MD [address] [facility] [address] [place] [address] Malignant neoplasm of upper-outer quadrant of right breast in female, estrogen receptor positive (Primary Dx) Social History Tobacco Use Types [...] Sign Reading Time Taken Comments Blood Pressure 128/74 07/30/2024 11:06 AM CDT Pulse 84 07/30/2024 11:01 AM CDT Temperature 36.7 ??C (98 ??F) 07/30/2024 11:01 AM CDT Respiratory Rate 16 07/30/2024 11:01 AM CDT Oxygen Saturation 92% 07/30/2024 11:01 AM CDT Inhaled Oxygen Concentration - - Weight 95.7 kg (211 lb) 07/30/2024 11:01 AM CDT Height - - Body Mass Index 31.16 07/20/2022 8:43 AM CDT documented in this encounter Progress Notes * Lj Fam MD - 07/30/2024 12:57 PM CDT HEMATOLOGY / ONCOLOGY PROGRESS NOTE Patient Identification: Name: Damien Pulido Age: 74 y.o. 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 Tumor was 5.6 x 5.1 cm in the central midportion of the right breast History of localized right-sided breast cancer in 1994 status post lumpectomy and adjuvant radiation therapy treatment. Did not receive any adjuvant chemotherapy and hormonal therapy at that time. Hypercoagulable state with history of DVT involving superior vena cava, right and left subclavian vein and right internal jugular vein. Osteopenia CURRENT TREATMENT Femara Prolia on every 6-month basis TREATMENT HISTORY Neoadjuvant chemotherapy with Adriamycin, Cytoxan and Taxol completed October 2016 Mastectomy November 20, 2016 Radiation therapy completed February 2017 Arimidex started February 2017 but discontinued due to risk of thrombosis Femara started in October 2018 SUBJECTIVE Patient came to the office for follow-up visit and Prolia treatment. She has been tolerating treatment well. Denies any night sweats fever chills and weight loss. No new lumps bumps and lymphadenopathy. No other new complaints. Review of system Constitutional: denies fevers, sweats, weight and appetite stable, denies any tiredness and fatigue HEENT: denies sinus congestion, hearing or vision problems, complain of thinning of hair Respiratory: denies cough, dyspnea, wheeze Cardiovascular: denies chest pain, exertional chest pressure/discomfort, nausea, syncope, shortnessof breath GI: denies constipation, diarrhea, dsyphagia, reflux symptoms, vomiting, melena : denies dysuria, frequency, incontinence, urgency Integumentary system: no lymphadenopathy, sweats, flushing Musculoskeletal: Upper chest wall discomfort Neurological: denies blurry or disturbed vision, numbness/weakness, dizziness Skin: No lumps, bumps or rashes. 12 point review of system was reviewed Objective: Vital signs in last 24 hours: As per nursing note Exam: General appearance: alert, cooperative, no distress, appears stated age Head: normocephalic, without obvious abnormality, atraumatic Eyes: conjunctivae/corneas clear, EOM's intact Ears: normal external ear canals AU Nose: Nares normal. Septum midline. Mucosa normal. No drainage or sinus tenderness Throat: Lips, mucosa, and tongue normal. Teeth and gums normal Neck: supple, symmetrical, trachea midline. Lungs: clear to auscultation bilaterally Heart: regular rate and rhythm, S1, S2 normal, no murmur, click, rub or gallop Abdomen: soft, non-tender. Bowel sounds normal. No masses, No organomegaly Extremities: extremities normal, atraumatic, no cyanosis or edema Skin: Skin color, texture, turgor normal. No rashes or lesions Lymph nodes: No lymphadenopathy Neuro: No obvious focal deficit Right chest wall examination showed no masses or lymphadenopathy. Left breast no masses and lymphadenopathy. Exam as above PATH LABS Labs from November 19, 2019 showed WBC 6.7 hemoglobin 11.6 platelet 216,000 creatinine 0.8 total bilirubin 0.2 AST 50 ALT 62 CA-27-29 was 10. Labs from May 19 showed hemoglobin 11.7 creatinine 0.8 total bilirubin 0.4 AST 27 ALT 21 total bilirubin 0.4 CA-27-29 17 Labs from July 13 showed WBC 7 hemoglobin 11.4 platelet 210 creatinine 0.8 CA 15-3 7 Labs from January 11 showed creatinine 0.7 total bilirubin 0.7 WBC 7 hemoglobin 12.9 platelet 228,000 calcium 9.2 Labs from July 11 showed CA 15-3 8 creatinine 0.7 total bilirubin 0.3 WBC 5.9 hemoglobin 12.5 platelet 227,000 Labs from January 10 showed CA 15-3 7 WBC 5.9 hemoglobin 13.5 platelet 232,000 creatinine 0.7 total bilirubin 0.5 calcium 9.0 Left from July 18 showed creatinine 0.7 AST 38 ALT 33 hemoglobin 13 CA 15-3 11 Labs from January 19 showed WBC 7.4 hemoglobin 12.8 platelet 236,000 creatinine 0.8 CA 15-3 13 Labs from July 20 showed creatinine 0.8 total bilirubin 0.3 hemoglobin 11.8 CA 15-3 7 Assessment: Plan: Patient Active Problem List Diagnosis Date Noted Osteoporosis due to aromatase inhibitor 10/20/2018 Screening for osteoporosis 12/21/2016 Malignant neoplasm of upper-outer quadrant of right female breast 08/27/2016 Acquired hypothyroidism 08/27/2016 T4 N0 M0 stage IIIB mixed ductal and lobular invasive carcinoma of the right breast. Diagnosed in June 2016. There is no evidence of relapse of disease on my examination. Left breast screening mammogram done on July 20 showed no evidence of disease. Repeat mammogram will be done in 1 year. She will continue letrozole that she has been tolerating well until October 2025. Follow-up with me in 6 months. Osteopenia. She will continue Prolia on every 6-month basis for total of 5 years duration. Anemia. Stable. History of DVT. Stable on warfarin. Follow-up in 6 months. 07/30/2024 Lj Fam MD documented in this encounter Plan of Treatment Upcoming Encounters Date Type Department Care Team (Late st Contact Info) Description 02/01/2025 11:00 AM CDT Office Visit [facility] Oncology and Hematology - [place] [address] [facility] [address] [place] [phone] Lj Fam MD [address] [facility] [address] [place] [address] Scheduled Orders Name Type Priority Associated Diagnoses Orde r Schedule CBC WITH DIFFERENTIAL Lab Stat Malignant neoplasm of upper-outer quadrant of right breast in female, estrogen receptor positive Expected: 01/27/2025, Expires: 07/30/2025 CANCER ANTIGEN 15-3 Lab Routine Malignant neoplasm of upper-outer quadrant of right breast in female, estrogen receptor positive Expected: 01/27/2025, Expires: 07/30/2025 COMPREHENSIVE METABOLIC PANEL Lab Stat Malignant neoplasm of upper-outer quadrant of right breast in female, estrogen receptor positive Expected: 01/27/2025, Expires: 07/30/2025 documented as of this encounter Visit Diagnoses Diagnosis Malignant neoplasm of upper-outer quadrant of right breast in female, estrogen receptor positive- Primary documented in this encounter Care Teams Principal Account Clerk Relationship Specialty Start Date End Date Ankit Villafuerte DO [address] [place] [address] PCP - General Internal Medicine 07/30/24 documented as of this encounter
--- OUTSIDE RECORDS SUMMARY | 2024-11-09 18:32 | XMS_ITS | Encounter Summary ---
Author Organization [facility] Address [address] [place] [address] Care Team Providers Care Supervisor Water [employer] Name Role Phone Orestes Flores MD Primary Care Provider [phone] Encounter Details Date Type Department Care Team (Late st Contact Info) Description 07/02/2024 External Device Data ST[place] ABSTRACTION Provider, Abstract NO ADDRESS ON FILE Social History Tobacco Use Types Packs/Day Years [...] Description 02/01/2025 11:00 AM CDT Office Visit [facility] Oncology and Hematology - Jose [address] [facility] [address] [place] [address] Lj Fam MD [address] [facility] [address] [place] [address] documented as of this encounter Visit Diagnoses Not on filedocumented in this encounter Care Teams Supervisor [employer] Treatment Plant Relationship Specialty [place] [address] [place] [phone] PCP - General Internal Medicine 12/09/17 07/29/24 documented as of this encounter
--- OUTSIDE RECORDS SUMMARY | 2024-11-09 18:32 | XMS_ITS | Encounter Summary ---
Author Organization [facility] [employer] [facility] Address [address] [place] [address] Care Team Providers Care Associate Professor Of Sociology Name Role Phone Ankit Villafuerte DO Primary Care Provider [phone] Encounter Details Date Type Department Care Team (Late Contact Info) Description 10/14/2024 Abstract [facility] Oncology and Hematology - [place] [address] [place] [address] Lj Fam MD [address] [place], [place] [address] [address] [place] [address] Social History Tobacco Use Types Packs/Day [...] Description 02/01/2025 11:00 AM CDT Office Visit [facility] Oncology and Hematology - [address] [place] [address] Lj Fam MD [address] [address] [place] [address] documented as of this encounter Visit Diagnoses Not on filedocumented in this encounter Care Teams Associate Professor Of Sociology Relationship Specialty Start Date End Date Ankit Villafuerte DO [address] [facility] [address] [place] [address] PCP - General Internal Medicine 07/30/24 documented as of this encounter
--- OUTSIDE RECORDS SUMMARY | 2024-11-09 18:32 | XMS_ITS | Clinical Summary ---
Author Organization [facility] Address [address] [place] [address] Phone Care Team Providers Care Magnetic Resonance Technologist Name Role Phone Unavailable Primary Care Provider Unavailabl e Allergies No known active allergies Medications furosemide (LASIX) 40 MG Tablet TAKE 1 TABLET BY ORAL ROUTE EVERY DAY 2 6 Active SYNTHROID 125 MCG Tablet TAKE 1 TABLET BY ORAL ROUTE EVERY DAY 2 6 Active montelukast (SINGULAIR) 10 MG Tablet Take 10 mg by mouth daily. 1 6 Active CREON [address] Particles TAKE ONE CAPSULE BY MOUTH 3 TIMES A DAY WITH MEALS AND 1 CAPSULE WITH EACH SNACK 3 6 Active perindopril (ACEON) 2 MG Tablet TAKE 1 TABLET BY ORAL ROUTE EVERY DAY 2 6 Active prochlorperazin e (COMPAZINE) 10 MG Tablet Take 1 Tab by mouth every 6 hours as needed. 30 Tab 1 6 Active lidocaine-prilo ralph 2.5-2.5 % Cream Use as directed. 30 g 0 6 Active acetaminophen (TYLENOL) 325 MG Tablet Take 325 mg by mouth every 6 hours as needed. Active azithromycin (ZITHROMAX) 250 MG Tablet 2 tab(s) daily for 1 day, then 1 tab(s) daily for days 2-5. 6 Tab 0 6 Active dexamethasone (DECADRON) 4 MG Tablet 1 tab po bid x 2 days after chemo. 30 Tab 0 6 Active ondansetron (ZOFRAN) 8 MG Tablet Take 1 Tab by mouth every 8 hours as needed for Nausea. 15 Tab 1 6 Active albuterol (PROVENTIL HFA, VENTOLIN HFA) 108 (90 BASE) MCG/ACT Aerosol Solution take 2 Puffs by inhalation every 4 hours as needed for Wheezing. 8.5 g 0 6 Active Active Problems Problem Noted Date Diagnosed Date Dehydration 08/16/2016 Chemotherapy induced nausea and vomiting 016 Chemotherapy induced neutropenia 08/02/2016 Malignant neoplasm of overla pping sites of right female breast 07/05/2016 Resolved Problems Problem Noted Date Diagnosed Date Resolved Date Cough 08/02/2016 08/16/2016 URI, acute 08/02/2016 08/16/2016 High risk medication use 07/09/201604/2016 Family History Medical History Relation Name Comments Congestive Heart Failure Father Cancer Mother breast Relation Name Status Comments Father Mother Social History Tobacco Use Types Packs/Day Years Used Date Smoking Tobacco: Never Alcohol Use Standard Drinks/Week Comments Yes 0 (1 standard drink = 0.6 oz pur e alcohol) occasionally Comments Unknown Sex and Gender Information Value Date Recorded Sex Assigned at Not on file Legal Sex Female 3:10 PM CDT Gender Identity Not on file Sexual Orientation Not on file Last Filed Vital Signs Vital Sign Reading Time Taken Comments Blood Pressure 100/68 08/16/2016 9:45 AM CDT Pulse 87 08/16/2016 9:45 AM CDT Temperature 36.7 ??C (98 ??F) 08/16/2016 9:45 AM CDT Respiratory Rate - - Oxygen Saturation 96% 08/16/2016 9:45 AM CDT Inhaled Oxygen Concentration - - Weight 85.5 kg (188 lb 9.6 oz) 08/16/2016 9:45 A M CDT Height 175.3 cm (5' 9 ) 08/16/2016 9:45 AM CDT Body Mass Index 27.85 08/16/2016 9:45 AM CDT Plan of Treatment Health Maintenance Due Date Last Done Comments DEXA Bone Density 1950 Hepatitis C Virus (HCV) Screening 1950 TdaP Immunization 1950 SARS-COV-2 Immunization (#1) 1957 Pneumococcal Immunization (5 0+ years) (1 of 2 - PCV) 1958 Mammogram 1962 Zoster Immunization (1 of 2) 1971 Colonoscopy 1997 Colorectal Cancer Screening 1997 Cologuard 2002 Immunochemical Fecal Occult Blood 2002 Influenza Immunization (Seas on Ended) 2024 Hepatitis B Immunization Aged Out No longer eligible based on patient's age to complete this topic Meningococcal Immunization (ACWY) Aged Out No longer eligible based on patient's age to complete this topic Rotavirus Immunization Aged Out No lo nger eligible based on patient's age to complete this topic Insurance Soccer Manager
--- OUTSIDE RECORDS SUMMARY | 2024-11-09 18:32 | XMS_ITS | Encounter Summary ---
Author Organization [facility] Address [address] [place] [address] Care Team Providers Care Rubber Belt Splicer Name Role Phone Ankit Villafuerte DO Primary Care Provider [phone] Encounter Details Date Type Department Care Team (Late st Contact Info) Description 08/25/2024 External Device Data STL ABSTRACTION Provider, Abstract [...] Description 02/01/2025 11:00 AM CDT Office Visit [facility] Oncology and Hematology - [place] [address] [place] [address] [address] [place] [address] Lj Fam MD [address] [facility] [address] [place] [address] documented as of this encounter Visit Diagnoses Not on filedocumented in this encounter Care Teams Rubber Belt Splicer Relationship Specialty Start Date End Date Ankit Villafuerte DO [address] [facility] 162 [facility] [address] [place] [phone] PCP - General Internal Medicine 07/30/24 documented as of this encounter
--- OUTSIDE RECORDS SUMMARY | 2024-11-09 18:32 | XMS_ITS | Encounter Summary ---
Author Organization [facility] [employer] [facility] Address [address] [place] [address] Care Team Providers Care Internet Consultant Name Role Phone Orestes Flores MD Primary Care Provider [phone] Encounter Details Date Type Department Care Team (Late Contact Info) Description 07/20/2024 Orders Only [facility] Oncology and Hematology [facility] [address] [place] [address] Lj Fam MD [facility] [employer] [address] [place] [address] Malignant neoplasm of upper-outer quadrant of [...] Description 02/01/2025 11:00 AM CDT Office Visit [facility] Oncology and Hematology Jose Charles [address] [place] [address] Lj Fam MD [facility] [employer] [address] [place] [address] Scheduled Orders Name Type Priority Associated Diagnoses Orde r Schedule CANCER ANTIGEN 15-3 Lab Routine Malignant neoplasm of upper-outer quadrant of right breast in female, estrogen receptor positive Expected: 07/20/2024, Expires: 07/20/2025 CBC WITH DIFFERENTIAL Lab Routine Malignant neoplasm of upper-outer quadrant of right breast in female, estrogen receptor positive Expected: 07/20/2024, Expires: 07/20/2025 COMPREHENSIVE METABOLIC PANEL Lab Routine Malignant neoplasm of upper-outer quadrant of right breast in female, estrogen receptor positive Expected: 07/20/2024, Expires: 07/20/2025 documented as of this encounter Procedures Procedure Name Priority Date/Time Associated Diagnosis Comments COMPREHENSIVE METABOLIC PANEL Routine 07/20/2024 4:06 PM CDT MAMMO SCREENING BILAT Routine 07/20/2024 2:42 PM CDT CBC WITH DIFFERENTIAL Routine 07/20/2024 1:26 PM CDT documented in this encounter Results * COMPREHENSIVE METABOLIC PANEL (07/20/2024 4:06 PM CDT) Blood Lj Fam MD CHEMISTRY ORDERABLES * MAMMO SCREENING BILAT (07/20/2024 2:42 PM CDT) Anatomical Region Laterality Modality Breast Bilateral Other Lj Fam MD MAMMO ORDERABLES * CBC WITH DIFFERENTIAL (07/20/2024 1:26 PM CDT) Blood Lj Fam MD HEMATOLOGY ORDERABLE S documented in this encounter Visit Diagnoses Diagnosis Malignant neoplasm of upper-outer quadrant of right breast in female, estrogen receptor positive- Primary documented in this encounter Care Teams Internet Consultant Relationship Specialty Start Date End Date Orestes Flores MD [address] [place] [address] PCP - General Internal Medicine 12/09/17 07/29/24 documented as of this encounter
--- OUTSIDE RECORDS SUMMARY | 2024-11-09 18:32 | XMS_ITS | Encounter Summary ---
Author Organization [facility] Address [address] [place] [address] Care Team Providers Care Pipe Layer Name Role Phone Orestes Flores MD Primary Care Provider [phone] Encounter Details Date Type Department Care Team (Late st Contact Info) Description 07/28/2024 External Device Data STL ABSTRACTION Provider, Abstract [...] Description 02/01/2025 11:00 AM CDT Office Visit [facility] Oncology and Hematology - Jose [address] [facility] [address] [place] [address] Lj Fam MD [address] [facility] [address] [place] [address] documented as of this encounter Visit Diagnoses Not on filedocumented in this encounter Care Teams Pipe Layer Relationship Specialty [place] [address] [place] [address] PCP - General Internal Medicine 12/09/17 07/29/24 documented as of this encounter
--- OUTSIDE RECORDS SUMMARY | 2024-11-09 18:32 | XMS_ITS | Encounter Summary ---
Author Organization [facility] Address [address] [place] [address] Care Team Providers Care Health Navigator Name Role Phone Ankit Villafuerte DO Primary Care Provider [phone] Reason for Visit * Reason Onset Date Comments Surgical Clearance 10/14/2024 Encounter Details Date Type Department Care Team (Late st Contact Info) Description 10/14/2024 Telephone [facility] Oncology and Hematology - Jose [address] [facility] [address] [place] [address] Lj Fam MD 2[address] [facility] [address] [place] [address] Surgical Clearance Social History Tobacco Use Types Packs/Day Years Used Date Smoking Tobacco: Never Alcohol Use Standard Drinks/Week Comments Yes 0 (1 standard drink = 0.6 oz pur e alcohol) Sex and Gender Information Value Date Recorded Sex Assigned at Not on file Gender Identity Not on file Sexual Orientation Not on file documented as of this encounter Miscellaneous Notes * Telephone Encounter - Valarie Victor - 10/14/2024 8:06 AM CST Surgical clearance faxed back to office. Paperwork scanned into [employer]. CE ANALYST * Telephone Encounter - Valarie Victor - 10/14/2024 8:06 AM CST ----- Message from Dr. Lj Fam sent at 10/13/2024 5:56 PM OFFICE ANALYST ----- Regarding: RE: Surgical Clearance She is cleared to have surgery from oncology standpoint. Regarding warfarin they should contact theprescribing physician. ----- Message ----- From: Valarie Victor Sent: 10/13/2024 3:15 PM OFFICE ANALYST To: Lj Fam MD Subject: Surgical Clearance [place] [facility] is requesting surgical clearance for patient to have right total knee arthroplasty. Is this clearance ok to give? Also it looks like patient is on warfarin but it doesnot look like we prescribe this? They ars asking how long she would need to hold medications. Is this something that you are ok with calling the hold? Or would you like them to reach out to the provid er that is filling it? CE ANALYST documented in this encounter Plan of Treatment Upcoming Encounters Date Type Department Care Team (Late st Contact Info) Description 02/01/2025 11:00 AM CDT Office Visit [facility] Oncology and Hematology - Jose 2227 [facility] 200 [place] [address] Lj Fam MD [address] [facility] [address] [place] [address] documented as of this encounter Visit Diagnoses Not on filedocumented in this encounter Care Teams Health Navigator Relationship Specialty Start Date End Date Ankit Villafuerte DO [address] [facility] [address] [place] [address] PCP - General Internal Medicine 07/30/24 documented as of this encounter
--- OUTSIDE RECORDS SUMMARY | 2024-11-09 18:32 | XMS_ITS | Clinical Summary ---
Author Organization [facility] Address [address] [place] [address] Care Team Providers Care Cognos Consultant Name Role Phone Ankit Villafuerte Primary Care Provider [phone] Allergies No known active allergies Medications Medication Sig Dispensed Refills Start Date End Date Status cholecalciferol, vitamin D3, 5,000 unit Take 5,000 Units by mouth daily. Active multivit/folic acid/vit K1 (ONE-A-DAY WOMEN'S 50 PLUS ORAL) Take 1 Tablet by mouth daily. Active cyanocobalamin (VITAMIN B-12) 250 mcg Tablet Take 250 mcg by mouth daily. Active ascorbic acid, vitamin C, (VITAMIN C) 1,000 mg Tablet Take 1,000 mg by mouth daily. Active biotin 5,000 mcg Tablet, Rapid Dissolve Take 1 Tablet by mouth daily. Active diclofenac sodium (VOLTAREN) 1 % gel APPLY 2 GRAMS TO AFFECTED AREA 4 TIMES A DAY 08/25/2019 Active rOPINIRole (REQUIP) 0.25 mg tablet TAKE 1 TABLET (0.25 MG) BY MOUTH AT BEDTIME 11/07/2020 Active gabapentin (NEURONTIN) 800 mg tablet TAKE 1 TABLET BY MOUTH TWICE A DAY 09/13/2020 Active warfarin (COUMADIN) 5 mg tablet Take 2.5 mg by mouth daily. Active Breztri Aerosphere 160-9-4.8 mcg/actuation HFA Aerosol Inhaler inhale 2 puffs by mouth twice a day 01/17/2024 Active primidone (MYSOLINE) 50 mg tablet TAKE 1/2 TABLET BY MOUTH AT BEDTIME X 1 WK, THEN INCREASE TO 1 TABLET AT BEDTIME 11/25/2023 Active levothyroxine 75 mcg tablet Take 75 mcg by mouth daily in the morning. Active warfarin (COUMADIN) 1 mg tablet Take 2 mg by mouth daily. 07/08/2024 Active letrozole (FEMARA) 2.5 mg tablet TAKE 1 TABLET BY MOUTH EVERY DAY 90 Tablet 3 10/16/2024 Active letrozole (FEMARA) 2.5 mg tablet take 1 tablet by mouth every day 90 Tablet 3 10/23/2023 10/16/2024 Discontinued Active Problems Problem Noted Date Diagnosed Date Osteoporosis due to aromatase inhibitor 10/20/20 Screening for osteoporosis 12/21/2016 Malignant neoplasm of upper- outer quadrant of right female breast 08/27/2016 Cancer Staging:Clinical:Stage IIIB(T4, N0, M0) - Unsigned Acquired hypothyroidism 08/27/2016 Encounters Date Type Department Care Team Description 10/16/2024 Refill [facility] Oncology and Hematology [facility] [address] [place] [address] Lj Fam MD 10/14/2024 Abstract [facility] Oncology and Hematology [facility] [address] [place] [address] Lj Fam MD 10/14/2024 Telephone [facility] Oncology and Hematology [facility] [address] [place] [address] Lj Fam MD Surgical Clearance 08/25/2024 External Device Data STL ABSTRACTION Provider, Abstract from Last 3 Months Family History Medical History Relation Name Comments Heart Disease Father Breast Cancer Mother Relation Name Status Comments Father Mother Social History Tobacco Use Types Packs/Day Years Used Date Smoking Tobacco: Never Tobacco Cessation:Counseling Given: Not Answered Alcohol Use Standard Drinks/Week Comments Yes 0 [...] (211 lb) 07/30/2024 11:01 AM CDT Height 175.3 cm (5' 9 ) 07/20/2022 8:43 AM CDT Body Mass Index 31.16 07/20/2022 8:43 AM CDT Plan of Treatment Upcoming Encounters Date Type Department Care Team (Late st Contact Info) Description 02/01/2025 11:00 AM CDT Office Visit [facility] Oncology and Hematology [facility] 2[address] [facility] 200 [place] [address] Lj Fam MD 2227 [facility] [address] [place] [address] Health Maintenance Due Date Last Done Comments FIT-DNA Q 3 years 1997 FIT/FOBT Q 1 year 1997 Flex Sig/CT Colonography Q 5 years 1997 ZOSTER VACCINE (1 of 2) 2002 PNEUMOCOCCAL VACCINE 65+ YEA RS (1 of 1 - PCV) 2017 INFLUENZA VACCINE (#1) 2024 BREAST CANCER SCREENING 07/20/2025 07/20/20, 07/18/2023, 06/29/2021, Additional history exists RSV VACCINE (60+ or ) (1 - 1-dose 75+ series) 2027 DTAP/TDAP/TD VACCINES (2 - T d or Tdap) 04/09/2032 04/09/2022 COLORECTAL SCREENING 09/13/2032 09/13/2022 Colorectal Cancer Screening 09/13/2032 OSTEOPOROSIS SCREENING Completed , 07/13/2021, 01/19/2019, Additional history exists Procedures Procedure Name Priority Date/Time Associated Diagnosis Comments MAMMO SCREENING BILAT Routine 07/20/2024 2:42 PM CDT XR DEXA BONE DENSITY AXIAL 1 OR MORE SITES Routine 07/13/2021 Osteoporosis due to aromatase inhibitor from Last 3 Months or Most Recently Relevant to Health Maintenance Results * MAMMO SCREENING BILAT (07/20/2024 2:42 PM CDT) Anatomical Region Laterality Modality Breast Bilateral Other Lj Fam MD MAMMO ORDERABLES * XR DEXA BONE DENSITY AXIAL 1 OR MORE SITES (07/13/2021) Anatomical Region Laterality Modality Other Lj Fam MD DIAGNOSTIC IMAGING O RDERABLES from Last 3 Months or Most Recently Relevant to Health Maintenance Care Teams Cognos Consultant Relationship Specialty Start Date End Date Ankit Villafuerte DO 6812 [facility] 162 [facility] [address] [place] [address] PCP - General Internal Medicine 07/30/24
--- OUTSIDE RECORDS SUMMARY | 2024-11-09 18:32 | XMS_ITS ---
Author Organization [facility] Address [address] [place] [address] Phone Care Team Providers Care Fleet Manager/Dispatch Name Role Phone Unavailable Primary Care Provider Unavailabl e Active Problems Problem Noted Date Diagnosed Date Dehydration 08/16/2016 Chemotherapy induced nausea and vomiting 016 Chemotherapy induced neutropenia 08/02/2016 Malignant neoplasm of overla pping sites of right female breast 07/05/2016 Current Treatment and Therapy Plans No current plan information found. Past Treatment and Therapy Plans ONCOLOGY TREATMENT Plan Name Start Date Discontinue Date Treatment Medications Discontinue Reason Plan Provider Cycles BREAST - CA DOSE DENSE - CCSCI 07/18/2016 12/12/2020 cyclophosphamide with mesna (CYTOXAN) chemo infusion using solrDOXOrubicin (ADRIAMYCIN) Plan Clean Up Nina Jane MD 3 of 4 cycles started Lifetime Dose Tracking * Chemical Lifetime Dose Automatic Entry Manual Entr y Doxorubicin 181.473 mg/m2 (376.2 mg) 181.473 mg/m2 (3 76.2 mg) 0 mg/m2 (0 mg) Resolved Problems Problem Noted Date Diagnosed Date Resolved Date Cough 08/02/2016 08/16/2016 URI, acute 08/02/2016 08/16/2016 High risk medication use 07/09/201604/2016
--- OUTSIDE RECORDS SUMMARY | 2024-11-09 18:33 | XMS_ITS | Encounter Summary ---
Author Organization [facility] Address [address] [place] [address] Care Team Providers Care Aircraft Magneto Mechanic Name Role Phone Orestes Flores MD Primary Care Provider [phone] Encounter Details Date Type Department Care Team (Late st Contact Info) Description 07/01/2024 External Device Data STL ABSTRACTION Provider, Abstract [...] Description 02/01/2025 11:00 AM CDT Office Visit [facility] Oncology and Hematology - Jose 2227 [facility] 200 [place] [address] Lj Fam MD 2227 [facility] [address] [place] [address] documented as of this encounter Visit Diagnoses Not on filedocumented in this encounter Care Teams Aircraft Magneto Mechanic Relationship Specialty [place] [address] [place] [phone] PCP - General Internal Medicine 12/09/17 07/29/24 documented as of this encounter
--- OUTSIDE RECORDS SUMMARY | 2024-11-09 18:33 | XMS_ITS | Encounter Summary ---
Author Organization [facility] Address [address] [place] [address] Care Team Providers Care Plug Paster Name Role Phone Orestes Flores MD Primary Care Provider [phone] Encounter Details Date Type Department Care Team (Late st Contact Info) Description 05/12/2024 External Device Data STL ABSTRACTION Provider, Abstract [...] Description 02/01/2025 11:00 AM CDT Office Visit [facility] Oncology and Hematology - Jose 2[address] [facility] 200 [place] [address] Lj Fam MD [address] [facility] [address] [place] [address] documented as of this encounter Visit Diagnoses Not on filedocumented in this encounter Care Teams Plug Paster Relationship Specialty [place] [address] [place] [phone] PCP - General Internal Medicine 12/09/17 07/29/24 documented as of this encounter
--- OUTSIDE RECORDS SUMMARY | 2024-11-09 18:33 | XMS_ITS | Encounter Summary ---
Author Organization [facility] Address [address] [place] [address] Care Team Providers Care Hollow Handle Knife Assembler Name Role Phone Orestes Flores MD Primary Care Provider Encounter Details Date Type Department Care Team (Late Contact Info) Description 01/24/2024 Orders Only [facility] Oncology and Hematology [facility] [address] [place] [address] Lj Fam MD [address] [place], [place] [address] [address] [place] [address] Social History Tobacco Use Types Packs/Day [...] Description 02/01/2025 11:00 AM CDT Office Visit [facility] Oncology and Hematology [address] [place] [address] Lj Fam MD [address] [place] [address] [employer] [address] [place] [address] documented as of this encounter Procedures Procedure Name Priority Date/Time Associated Diagnosis Comments CANCER ANTIGEN 15-3 Routine 01/20/2024 3:23 PM CDT documented in this encounter Results * CANCER ANTIGEN 15-3 (01/20/2024 3:23 PM CDT) Blood Lj Fam MD CHEMISTRY ORDERABLES documented in this encounter Visit Diagnoses Not on filedocumented in this encounter Care Teams Hollow Handle Knife Assembler Relationship Specialty Start Date End Date Orestes Flores MD [address] [place] [address] PCP - General Internal Medicine 12/09/17 07/29/24 documented as of this encounter
--- OUTSIDE RECORDS SUMMARY | 2024-11-09 18:33 | XMS_ITS | Encounter Summary ---
Author Organization [facility] Address [address] [place] [address] Care Team Providers Care Senior Manager Asset Protection Name Role Phone Orestes Flores MD Primary Care Provider [phone] Encounter Details Date Type Department Care Team (Late st Contact Info) Description 04/14/2024 External Device Data STL ABSTRACTION Provider, Abstract [...] Description 02/01/2025 11:00 AM CDT Office Visit [facility] Oncology and Hematology - Jose 2[address] [facility] [address] [place] [address] Lj Fam MD 2[address] [facility] [address] [place] [address] documented as of this encounter Visit Diagnoses Not on filedocumented in this encounter Care Teams Senior Manager Asset Protection Relationship Specialty [place] [address] [place] [phone] PCP - General Internal Medicine 12/09/17 07/29/24 documented as of this encounter
--- OUTSIDE RECORDS SUMMARY | 2024-11-09 18:33 | XMS_ITS | Encounter Summary ---
Author Organization [facility] Address [address] [place] [address] Care Team Providers Care Qa Software Tester Name Role Phone Orestes Flores MD Primary Care Provider [phone] Encounter Details Date Type Department Care Team (Late Contact Info) Description 07/18/2023 Orders Only [facility] Oncology and Hematology Jose [address] [place] [address] Lj Fam MD [address] [place], [place] [address] [address] [place] [address] Social History Tobacco Use Types Packs/Day [...] Description 02/01/2025 11:00 AM CDT Office Visit [facility] Oncology and Hematology - Jose [address] [place] [address] Lj Fam MD [address] [place] [address] [employer] [address] [place] [address] documented as of this encounter Procedures Procedure Name Priority Date/Time Associated Diagnosis Comments CBC WITH AUTODIFFERENTIAL Routine 2022 3:28 PM CDT COMPREHENSIVE METABOLIC PANEL Routine 07/18/2023 3:23 PM CDT MAMMO SCREENING BILAT Routine 07/18/2023 2:18 PM CDT documented in this encounter Results * CBC WITH AUTODIFFERENTIAL (07/18/2023 3:28 PM CDT) Blood Lj Fam MD HEMATOLOGY ORDERABLE S * COMPREHENSIVE METABOLIC PANEL (07/18/2023 3:23 PM CDT) Blood Lj Fam MD CHEMISTRY ORDERABLES * MAMMO SCREENING BILAT (07/18/2023 2:18 PM CDT) Anatomical Region Laterality Modality Breast Bilateral Other Lj Fam MD MAMMO ORDERABLES documented in this encounter Visit Diagnoses Not on filedocumented in this encounter Care Teams Qa Software Tester Relationship Specialty Start Date End Date Orestes Flores MD [facility] [place] [address] PCP - General Internal Medicine 12/09/17 07/29/24 documented as of this encounter
--- OUTSIDE RECORDS SUMMARY | 2024-11-09 18:33 | XMS_ITS | Encounter Summary ---
Author Organization [facility] Address [address] [place] [address] Care Team Providers Care Dry Cell Sealer Name Role Phone Orestes Flores MD Primary Care Provider [phone] Encounter Details Date Type Department Care Team (Late st Contact Info) Description 06/30/2024 External Device Data STL ABSTRACTION Provider, Abstract [...] Description 02/01/2025 11:00 AM CDT Office Visit [facility] Oncology and Hematology - Jose [address] [facility] 200 [place] [address] Lj Fam MD 2227 [facility] [address] [place] [address] documented as of this encounter Visit Diagnoses Not on filedocumented in this encounter Care Teams Dry Cell Sealer Relationship Specialty [place] [address] [place] [phone] PCP - General Internal Medicine 12/09/17 07/29/24 documented as of this encounter
--- OUTSIDE RECORDS SUMMARY | 2024-11-09 18:33 | XMS_ITS | Encounter Summary ---
Author Organization [facility] [employer] [facility] Address [address] [place] [address] Care Team Providers Care Heading And Priming Tool Setter Name Role Phone Orestes Flores MD Primary Care Provider [phone] Encounter Details Date Type Department Care Team (Late st Contact Info) Description 07/14/2021 Orders Only [facility] Oncology and Hematology - Jose [address] [place] [address] Linda Elias Malignant neoplasm of upper-outer quadrant of right breast in female, estrogen receptor positive Social History Tobacco Use Types Packs/Day Years [...] Description 02/01/2025 11:00 AM CDT Office Visit [facility] Oncology and Hematology [facility] [address] [place] [address] Lj Fam MD 2227 [facility] [address] [place] [address] documented as of this encounter Visit Diagnoses Diagnosis Malignant neoplasm of upper-outer quadrant of right breast in female, estrogen receptor positive documented in this encounter Care Teams Heading And Priming Tool Setter Relationship Specialty Start Date End Date Orestes Flores MD [address] [place] [phone] PCP - General Internal Medicine 12/09/17 07/29/24 documented as of this encounter
--- OUTSIDE RECORDS SUMMARY | 2024-11-09 18:33 | XMS_ITS | Encounter Summary ---
Author Organization [facility] Address [address] [place] [address] Care Team Providers Care Maintenance Advisor Name Role Phone Orestes Flores MD Primary Care Provider [phone] Reason for Visit * Reason Comments Medication Refill Encounter Details Date Type Department Care Team ([facility] Contact Info) Description 10/16/2021 Refill [facility] Oncology and Hematology Jose [address] [place] [address] Lj Fam MD [address] [place] [address] [employer] [address] [place] [address] Social History Tobacco Use Types Packs/Day [...] Upcoming Encounters Date Type Department Care Team ([facility] Contact Info) Description 02/01/2025 11:00 AM CDT Office Visit [facility] Oncology and Hematology - Jose [address] [place] [address] Lj Fam MD [facility] [address] [place] [address] documented as of this encounter Visit Diagnoses Not on filedocumented in this encounter Care Teams Maintenance Advisor Relationship Specialty Start Date End Date Orestes Flores MD [address] [place] [phone] PCP - General Internal Medicine 12/09/17 07/29/24 documented as of this encounter
--- OUTSIDE RECORDS SUMMARY | 2024-11-09 18:33 | XMS_ITS | Encounter Summary ---
Author Organization [facility] Address [address] [place] [address] Care Team Providers Care Money Room Teller Name Role Phone Orestes Flores MD Primary Care Provider [phone] Encounter Details Date Type Department Care Team (Late st Contact Info) Description 12/04/2023 External Device Data STL ABSTRACTION Provider, Abstract [...] 2[address] [facility] 200 [place] [address] Lj Fam MD 2227 [facility] [address] [place] [address] documented as of this encounter Visit Diagnoses Not on filedocumented in this encounter Care Teams Money Room Teller Relationship Specialty [place] [address] [place] [phone] PCP - General Internal Medicine 12/09/17 07/29/24 documented as of this encounter
--- OUTSIDE RECORDS SUMMARY | 2024-11-09 18:33 | XMS_ITS | Encounter Summary ---
Author Organization [facility] Address [address] [place] [address] Care Team Providers Care Orderlies Teacher Name Role Phone Orestes Flores MD Primary Care Provider [phone] Encounter Details Date Type Department Care Team (Late st Contact Info) Description 03/03/2024 External Device Data STL ABSTRACTION Provider, Abstract [...] Description 02/01/2025 11:00 AM CDT Office Visit [facility] Oncology and Hematology - Jose 2227 [facility] 200 [place] [address] Lj Fam MD 2[address] [facility] [address] [place] [address] documented as of this encounter Visit Diagnoses Not on filedocumented in this encounter Care Teams Orderlies Teacher Relationship Specialty [place] [address] [place] [phone] PCP - General Internal Medicine 12/09/17 07/29/24 documented as of this encounter
--- OUTSIDE RECORDS SUMMARY | 2024-11-09 18:33 | XMS_ITS | Encounter Summary ---
Author Organization [facility] Address [address] [place] [address] Care Team Providers Care Telecommunications Manager Name Role Phone Orestes Flores MD Primary Care Provider [phone] Encounter Details Date Type Department Care Team (Late st Contact Info) Description 08/01/2023 External Device Data STL ABSTRACTION Provider, Abstract [...] - Jose 2227 [facility] 200 [place] [address] Lj Fam MD 2[address] [facility] [address] [place] [address] documented as of this encounter Visit Diagnoses Not on filedocumented in this encounter Care Teams Telecommunications Manager Relationship Specialty Start Date End Date Orestes Flores MD [address] [place] [address] PCP - General Internal Medicine 12/09/17 07/29/24 documented as of this encounter
--- OUTSIDE RECORDS SUMMARY | 2024-11-09 18:33 | XMS_ITS | Encounter Summary ---
Author Organization [facility] [employer] [facility] Address [address] [place] [address] Care Team Providers Care Steam Table Associate Name Role Phone Orestes Flores MD Primary Care Provider [phone] Reason for Referral * Radiology Services (Routine) - Closed Specialty Diagnoses / Procedures Referred By Quinn cooper Referred To Contact Diagnoses Visit for screening mammogram Procedures MAMMO 3D ANAI SCREEN UNI LT W OR WO CAD CHG SCREENING MAMMOGRAPHY BI 2-VIEW BREAST INC CAD CHG SCREENING DIGITAL BREAST TOMOSYNTHESIS BI Lj Fam MD [address] [place] [address] [place] [address] Referral ID Status Reason Start Date Expiration Date V isits Requested Visits Authorized [id number] Closed STL CTS 01/27/2024 02/26/2025 1 1 Reason for Visit * Reason Comments Follow Up Encounter Details Date Type Department Care Team (Late st Contact Info) Description 01/27/2024 10:00 AM CDT Office Visit [facility] Oncology and Hematology [address] [place] [address] Lj Fam MD [address] [place] [address] Visit for screening mammogram (Primary Dx) Social History Tobacco Use Types [...] Sign Reading Time Taken Comments Blood Pressure 132/79 01/27/2024 9:45 AM CDT Pulse - - Temperature 35.9 ??C (96.7 ??F) 01/27/2024 9:45 AM CD T Respiratory Rate 14 01/27/2024 9:45 AM CDT Oxygen Saturation 93% 01/27/2024 9:45 AM CDT Inhaled Oxygen Concentration - - Weight 90.6 kg (199 lb 12.8 oz) 01/27/2024 9:45 AM CDT Height - - Body Mass Index 29.51 07/20/2022 8:43 AM CDT documented in this encounter Progress Notes * Lj Fam MD - 01/27/2024 10:16 AM CDT HEMATOLOGY / ONCOLOGY PROGRESS NOTE Patient Identification: Name: Damien Pulido Age: 73 y.o. 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 She denies anynew lumps on the lymphadenopathy. Denies any night sweats fevers and chills. She is complaining of some hair thinning. No other new complaint. Review of system Constitutional: denies fevers, sweats, any tiredness and fatigue, weight and appetite stable. 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 Diagnosed in June 2016. Labs including tumor marker stable. There is no evidence of relapse of disease on my examination. Patient will continue Femara until October 2025. She has been tolerating it well. Repeat mammogram will be done in 6 months. Follow-up in 6 months. Osteopenia. She is on Prolia on every 6-month basis. She will continue that for total of 5 years duration. Anemia. Resolved. History of DVT. Stable on warfarin. Follow-up in 6 months. TOBACCO COUNSELING She is not a tobacco/nicotine user. 01/27/2024 Lj Fam MD documented in this encounter Plan of Treatment Upcoming Encounters Date Type Department Care Team (Late st Contact Info) Description 02/01/2025 11:00 AM CDT Office Visit [facility] Oncology and Hematology - [place] [address] [facility] [address] [place] [address] Lj Fam MD [address] [facility] [address] [place] [address] Scheduled Orders Name Type Priority Associated Diagnoses Orde r Schedule MAMMO 3D ANAI SCREEN UNI LT W OR WO CAD Imaging Routine Visit for screening mammogram Expected: 07/29/2024, Expires: 07/29/2025 documented as of this encounter Visit Diagnoses Diagnosis Visit for screening mammogram- Primary Other screening mammogram documented in this encounter Care Teams Steam Table Associate Relationship Specialty Start Date End Date Orestes Flores MD [address] [place] [address] PCP - General Internal Medicine 12/09/17 07/29/24 documented as of this encounter
--- OUTSIDE RECORDS SUMMARY | 2024-11-09 18:33 | XMS_ITS | Encounter Summary ---
Author Organization [facility] Address [address] [place] [address] Care Team Providers Care Auto Mechanic Supervisor Name Role Phone Orestes Flores MD Primary Care Provider [phone] Encounter Details Date Type Department Care Team (Late st Contact Info) Description 02/07/2024 External Device Data STL ABSTRACTION Provider, Abstract [...] Description 02/01/2025 11:00 AM CDT Office Visit [facility] Oncology and Hematology - [place] [address] [facility] [address] [place] [address] Lj Fam MD [address] [facility] [address] [place] [address] documented as of this encounter Visit Diagnoses Not on filedocumented in this encounter Care Teams Auto Mechanic Supervisor Relationship Specialty [place] [address] [place] [address] PCP - General Internal Medicine 12/09/17 07/29/24 documented as of this encounter
--- OUTSIDE RECORDS SUMMARY | 2024-11-09 18:33 | XMS_ITS | Encounter Summary ---
Author Organization [facility] Address [address] [place] [address] Care Team Providers Care Banjo Repairer Name Role Phone Orestes Flores MD Primary Care Provider [phone] Reason for Visit * Reason Comments Med Refill Encounter Details Date Type Department Care Team ([facility] Contact Info) Description 10/23/2023 Refill [facility] Oncology and Hematology [facility] [address] [place] [address] Lj Fam MD [address] [place] [address] [employer] [address] [place] [address] Social History Tobacco Use Types Packs/Day [...] Upcoming Encounters Date Type Department Care Team ([facility] Contact Info) Description 02/01/2025 11:00 AM CDT Office Visit [facility] Oncology and Hematology - [place] [address] [place] [address] Lj Fam MD [facility] [employer] [address] [place] [address] documented as of this encounter Visit Diagnoses Not on filedocumented in this encounter Care Teams Banjo Repairer Relationship Specialty Start Date End Date Orestes Flores MD [address] [place] [address] PCP - General Internal Medicine 12/09/17 07/29/24 documented as of this encounter
--- OUTSIDE RECORDS SUMMARY | 2024-11-09 18:33 | XMS_ITS | Encounter Summary ---
Author Organization [facility] [employer] [facility] Address [address] [place] [address] Care Team Providers Care Webmethods Consultant Name Role Phone Orestes Flores MD Primary Care Provider [phone] Reason for Visit * Reason Comments Follow Up 6 month f/u with lab s and prolia Encounter Details Date Type Department Care Team (Late st Contact Info) Description 07/19/2021 10:00 AM CDT Office Visit [facility] Oncology and Hematology - [place] [address] [place] [address] [facility] [address] [place] [address] Lj Fam MD [address] [facility] [address] [place] [address] Malignant neoplasm of upper-outer quadrant [...] on file Sexual Orientation Not on file COVID-19 Exposure Response Date Recorded In the last month, have you been in contact with someone who was confirmed or suspected to have Coronavirus / COVID-19? No / Unsure 07/19/2021 9:35 AM CDT documented as of this encounter Last Filed Vital Signs Vital Sign Reading Time Taken Comments Blood Pressure 107/69 07/19/2021 9:40 AM CDT Pulse 87 07/19/2021 9:40 AM CDT Temperature 36.5 ??C (97.7 ??F) 07/19/2021 9:40 AM CD T Respiratory Rate - - Oxygen Saturation 95% 07/19/2021 9:40 AM CDT Inhaled Oxygen Concentration - - Weight 93.7 kg (206 lb 9.6 oz) 07/19/2021 9:40 A M CDT Height 175.3 cm (5' 9 ) 07/19/2021 9:40 AM CDT Body Mass Index 30.51 07/19/2021 9:40 AM CDT documented in this encounter Progress Notes * Lj Fam MD - 07/19/2021 10:15 AM CDT HEMATOLOGY / ONCOLOGY PROGRESS NOTE Patient Identification: Name: Damien Pulido Age: 71 y.o. 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 So far she has been tolerating injection well. No new lumps on the lymphadenopathy. No other new complaints. Review of system Constitutional: denies fevers, sweats, fatigue, malaise, weight loss HEENT: denies sinus congestion, hearing or vision problems Respiratory: denies cough, dyspnea, wheeze Cardiovascular: denies chest pain, exertional chest pressure/discomfort, nausea, syncope, shortnessof breath GI: denies constipation, diarrhea, dsyphagia, reflux symptoms, vomiting, melena : denies dysuria, frequency, incontinence, urgency Integumentary system: no lymphadenopathy, sweats, flushing Musculoskeletal: denies: myalgia, arthralgia Neurological: denies blurry or disturbed vision, numbness/weakness, dizziness Skin: No lumps, bumps or rashes. 12 point review system was reviewed and as above Objective: Vital signs in last 24 hours: [...] No obvious focal deficit Right chest wall no masses lymphadenopathy. Left breast no masses lymphadenopathy. Examination as above PATH LAB[facility] Labs from November [...] platelet 210 creatinine 0.8 CA 15-3 7 @IMAGEIMP@ Assessment: Plan: Patient Active Problem List Diagnosis Date Noted ??? Osteoporosis due to aromatase inhibitor 10/20/2018 ??? Screening for osteoporosis 12/21/2016 ??? 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 Diagnosed in June 2016. There is no evidence of relapse of disease on my examination. Left breast mammogram came back unremarkable. Labs stable. I plan to see her back in 6 months. Osteopenia. Patient will continue Prolia every 6-month basis. Bone density performed on July 2showed improvement with osteopenia on the AP spine. History of DVT. Patient is on Coumadin. Anemia. Hemoglobin is stable. Elevated liver enzyme. This is secondary to Aguayo. Liver enzymes are normal now. Follow-up in 6 months. TOBACCO COUNSELING She is not a tobacco user. 07/19/2021 Lj Fam MD documented in this encounter Plan of Treatment Upcoming Encounters Date Type Department Care Team (Late st Contact Info) Description 02/01/2025 11:00 AM CDT Office Visit [facility] Oncology and Hematology - [place] [address] [facility] [address] [place] [address] Lj Fam MD [address] [facility] [address] [place] [address] Scheduled Orders Name Type Priority Associated Diagnoses Orde r Schedule CBC WITH DIFFERENTIAL Lab Stat Malignant neoplasm of upper-outer quadrant of right breast in female, estrogen receptor positive Expected: 01/17/2022, Expires: 07/19/2022 COMPREHENSIVE METABOLIC PANEL Lab Stat Malignant neoplasm of upper-outer quadrant of right breast in female, estrogen receptor positive Expected: 01/17/2022, Expires: 07/19/2022 documented as of this encounter Visit Diagnoses Diagnosis Malignant neoplasm of upper-outer quadrant of right breast in female, estrogen receptor positive- Primary documented in this encounter Care Teams Webmethods Consultant Relationship Specialty Start Date End Date Orestes Flores MD [address] [place] [address] PCP - General Internal Medicine 12/09/17 07/29/24 documented as of this encounter
--- OUTSIDE RECORDS SUMMARY | 2024-11-09 18:33 | XMS_ITS | Encounter Summary ---
Author Organization [facility] Address [address] [facility] Attn: Epic Prelude ADT [place] [address] Care Team Providers Care Asphalt Tamping Machine Operator Name Role Phone Orestes Flores MD Primary Care Provider [phone] Encounter Details Date Type Department Care Team (Latest Contact Info) Description 07/19/2021 Travel Social History Tobacco Use Types Packs/Day [...] AM CDT documented as of this encounter Plan of Treatment Upcoming Encounters Date Type Department Care Team (Late st Contact Info) Description 02/01/2025 11:00 AM CDT Office Visit [facility] Oncology and Hematology - [place] [address] [facility] [address] [place] [address] Lj Fam MD [address] [facility] [address] [place] [address] documented as of this encounter Visit Diagnoses Not on filedocumented in this encounter Care Teams Asphalt Tamping Machine Operator Relationship Specialty Start Date End Date Orestes Flores MD [address] [place] [address] PCP - General Internal Medicine 12/09/17 07/29/24 documented as of this encounter
--- OUTSIDE RECORDS SUMMARY | 2024-11-09 18:33 | XMS_ITS | Encounter Summary ---
Author Organization [facility] [employer] [facility] Address [address] [place] [address] Care Team Providers Care Forestry Support Specialist Name Role Phone Orestes Flores MD Primary Care Provider [phone] Encounter Details Date Type Department Care Team ([facility] Contact Info) Description 07/12/2022 Orders Only [facility] Oncology and Hematology [address] [place] [address] Lj Fam MD [address] [employer] [address] [place] [address] Malignant neoplasm of upper-outer quadrant [...] Description 02/01/2025 11:00 AM CDT Office Visit [facility] Oncology and Hematology - [place] [address] [place] [address] Lj Fam MD [address] [employer] [address] [place] [address] documented as of this encounter Visit Diagnoses Diagnosis Malignant neoplasm of upper-outer quadrant of right breast in female, estrogen receptor positive documented in this encounter Care Teams Forestry Support Specialist Relationship Specialty Start Date End Date Orestes Flores MD [address] [place] [address] PCP - General Internal Medicine 12/09/17 07/29/24 documented as of this encounter
--- OUTSIDE RECORDS SUMMARY | 2024-11-09 18:33 | XMS_ITS | Encounter Summary ---
Author Organization [facility] [employer] [facility] Address [address] [place] [address] Care Team Providers Care Mainframe Consultant Name Role Phone Orestes Flores MD Primary Care Provider [phone] Encounter Details Date Type Department Care Team (Late Contact Info) Description 07/24/2023 Orders Only [facility] Oncology and Hematology - [place] [address] [place] [address] Lj Fam MD [address] [place], [place] [address] [address] [place] [address] Social History Tobacco Use Types Packs/Day [...] and Hematology - Jose [address] [place] [address] Lj Fam MD [address] [place], [place] [address] [address] [place] [address] documented as of this encounter Procedures Procedure Name Priority Date/Time Associated Diagnosis Comments CHG CA 15 3 Routine 07/18/2023 12:44 PM CDT documented in this encounter Results * CHG CA 15 3 (07/18/2023 12:44 PM CDT) Lj aFm MD CHG - LABORATORY documented in this encounter Visit Diagnoses Not on filedocumented in this encounter Care Teams Mainframe Consultant Relationship Specialty Start Date End Date Orestes Flores MD [address] [place] [address] PCP - General Internal Medicine 12/09/17 07/29/24 documented as of this encounter
--- OUTSIDE RECORDS SUMMARY | 2024-11-09 18:33 | XMS_ITS | Encounter Summary ---
Author Organization [facility] [employer] [facility] Address [address] [place] [address] Care Team Providers Care Senior Treasury Analyst Name Role Phone Orestes Flores MD Primary Care Provider [phone] Encounter Details Date Type Department Care Team (Late Contact Info) Description 07/14/2021 Orders Only [facility] Oncology and Hematology [facility] [address] [place] [phone] Karli Rowley RN Osteoporosis due to aromatase inhibitor Social History Tobacco Use Types Packs/Day Years [...] Description 02/01/2025 11:00 AM CDT Office Visit [facility] Oncology [facility] [address] [place] [address] Lj Fam MD [address] [facility] [address] [place] [address] documented as of this encounter Procedures Procedure Name Priority Date/Time Associated Diagnosis Comments XR DEXA BONE DENSITY AXIAL 1 OR MORE SITES Routine 07/13/2021 Osteoporosis due to aromatase inhibitor documented in this encounter Results * XR DEXA BONE DENSITY AXIAL 1 OR MORE SITES (07/13/2021) Anatomical Region Laterality Modality Other Lj Fam MD DIAGNOSTIC IMAGING O RDERABLES documented in this encounter Visit Diagnoses Diagnosis Osteoporosis due to aromatase inhibitor Other osteoporosis documented in this encounter Care Teams Senior Treasury Analyst Relationship Specialty Start Date End Date Orestes Flores MD [address] [place] [address] PCP - General Internal Medicine 12/09/17 07/29/24 documented as of this encounter
--- OUTSIDE RECORDS SUMMARY | 2024-11-09 18:33 | XMS_ITS | Encounter Summary ---
Author Organization [facility] [employer] [facility] Address [address] [place] [address] Care Team Providers Care Contract Associate Manager Name Role Phone Orestes Flores MD Primary Care Provider Encounter Details Date Type Department Care Team (Late Contact Info) Description 01/10/2023 Orders Only [facility] Oncology and Hematology - [place] [address] [place] [address] Valarie Victor Malignant neoplasm of upper-outer quadrant of right [...] Description 02/01/2025 11:00 AM CDT Office Visit [facility] Oncology and Hematology - [place] [address] [place] [address] Lj Fam MD [address] [facility] [address] [place] [address] documented as of this encounter Visit Diagnoses Diagnosis Malignant neoplasm of upper-outer quadrant of right breast in female, estrogen receptor positive documented in this encounter Care Teams Contract Associate Manager Relationship Specialty Start Date End Date Orestes Flores MD [address] [place] [address] PCP - General Internal Medicine 12/09/17 07/29/24 documented as of this encounter
--- OUTSIDE RECORDS SUMMARY | 2024-11-09 18:33 | XMS_ITS | Encounter Summary ---
Author Organization [facility] [employer] [facility] Address [address] [place] [address] Care Team Providers Care Communications Controller Name Role Phone Orestes Flores MD Primary Care Provider [phone] Encounter Details Date Type Department Care Team (Late Contact Info) Description 07/19/2023 Orders Only [facility] Oncology and Hematology - Jose [address] [place] [address] Lj Fam MD [address] [place], [place] [address] [address] [place] [address] Social History Tobacco Use Types Packs/Day [...] Description 02/01/2025 11:00 AM CDT Office Visit [facility] Oncology and Hematology - [place] [address] [place] [address] Lj Fam MD [address] [place] [address] [employer] [address] [place] [address] documented as of this encounter Procedures Procedure Name Priority Date/Time Associated Diagnosis Comments NM BONE DENSITY Routine 07/18/2023 11:08 AM CDT documented in this encounter Results * NM BONE DENSITY (07/18/2023 11:08 AM CDT) Anatomical Region Laterality Modality Other Lj Fam MD NM ORDERABLES documented in this encounter Visit Diagnoses Not on filedocumented in this encounter Care Teams Communications Controller Relationship Specialty Start Date End Date Orestes Flores MD [address] [place] [address] PCP - General Internal Medicine 12/09/17 07/29/24 documented as of this encounter
--- OUTSIDE RECORDS SUMMARY | 2024-11-09 18:33 | XMS_ITS | Encounter Summary ---
Author Organization [facility] [employer] [facility] Address [address] [place] [address] Care Team Providers Care Body Technician/Painter Name Role Phone Orestes Flores MD Primary Care Provider [phone] Encounter Details Date Type Department Care Team (Late Contact Info) Description 07/23/[address] [facility] [address] [place] [address] Lj Fam MD [facility] [employer] [address] [place] [address] Chest pain, unspecified type Social History Tobacco Use Types Packs/Day Years Used Date Smoking Tobacco: Never Alcohol Use Standard Drinks/Week Comments Yes 0 (1 standard drink = 0.6 oz pur e alcohol) Sex and Gender Information Value Date Recorded Sex Assigned at Not on file Gender Identity Not on file Sexual Orientation Not on file COVID-19 Exposure Response Date Recorded In the last 10 days, have yo u been in contact with someone who was confirmed or suspected to have Coronavirus/COVID-19? No / Unsure 07/20/2022 8:27 AM CDT documented as of this encounter Plan of Treatment Upcoming Encounters Date Type Department Care Team (Late Contact Info) Description 02/01/2025 11:00 AM CDT Office Visit [facility] Oncology and Hematology - [place] [address] [place] [address] Lj Fam MD [facility] [employer] [address] [place] [address] documented as of this encounter Visit Diagnoses Diagnosis Chest pain, unspecified type documented in this encounter Care Teams Body Technician/Painter Relationship Specialty Start Date End Date Orestes Flores MD [address] [place] [address] PCP - General Internal Medicine 12/09/17 07/29/24 documented as of this encounter
--- OUTSIDE RECORDS SUMMARY | 2024-11-09 18:33 | XMS_ITS | Encounter Summary ---
Author Organization [facility] Address [address] [place] [address] Care Team Providers Care Allied Health Professional Name Role Phone Orestes Flores MD Primary Care Provider [phone] Encounter Details Date Type Department Care Team [...] Visit [facility] Oncology and Hematology - [place] [address] [facility] [address] [place] [address] Lj Fam MD [address] [facility] [address] [place] [address] documented as of this encounter Visit Diagnoses Not on filedocumented in this encounter Care Teams Allied Health Professional Relationship Specialty [place] [address] [place] [address] PCP - General Internal Medicine 12/09/17 07/29/24 documented as of this encounter
--- OUTSIDE RECORDS SUMMARY | 2024-11-09 18:33 | XMS_ITS | Encounter Summary ---
Author Organization [facility] [employer] [facility] Address [address] [place] [address] Care Team Providers Care Booking Officer Name Role Phone Orestes Flores MD Primary Care Provider [phone] Reason for Referral * Radiology Services (Routine) - Closed Specialty Diagnoses / Procedures Referred By Quinn cooper Referred To Contact Diagnoses Visit for screening mammogram Procedures MAMMO SCRN UNI LEFT W OR WO CAD Lj Fam MD [address] [place] [address] [place] [address] Referral ID Status Reason Start Date Expiration Date V isits Requested Visits Authorized [id number] Closed STL CTS 01/16/2022 02/16/2023 1 1 OENGRAVING MACHINE OPERATOR/TENDER Reason for Visit * Reason Comments Follow Up 6 month f/u with lab s and Prolia Encounter Details Date Type Department Care Team (Late st Contact Info) Description 01/16/2022 9:00 AM PHOTOENGRAVING MACHINE OPERATOR/TENDER Office Visit [facility] Oncology and Hematology [place] [address] [address] [facility] [address] [place] [address] Lj Fam MD [address] [place] [address] Visit for screening mammogram (Primary Dx); Malignant neoplasm of upper-outer quadrant of right [...] have Coronavirus / COVID-19? No / Unsure 01/16/2022 8:45 AM PHOTOENGRAVING MACHINE OPERATOR/TENDER documented as of this encounter Last Filed Vital Signs Vital Sign Reading Time Taken Comments Blood Pressure 120/77 01/16/2022 8:56 AM PHOTOENGRAVING MACHINE OPERATOR/TENDER Pulse 76 01/16/2022 8:56 AM PHOTOENGRAVING MACHINE OPERATOR/TENDER Temperature 36.2 ??C (97.1 ??F) 01/16/2022 8:56 AM CS T Respiratory Rate - - Oxygen Saturation 95% 01/16/2022 8:56 AM PHOTOENGRAVING MACHINE OPERATOR/TENDER Inhaled Oxygen Concentration - - Weight 87.9 kg (193 lb 12.8 oz) 01/16/2022 8:56 AM PHOTOENGRAVING MACHINE OPERATOR/TENDER Height 175.3 cm (5' 9 ) 01/16/2022 8:56 AM PHOTOENGRAVING MACHINE OPERATOR/TENDER Body Mass Index 28.62 01/16/2022 8:56 AM PHOTOENGRAVING MACHINE OPERATOR/TENDER documented in this encounter Progress Notes * Lj Fam MD - 01/16/2022 5:38 PM CST HEMATOLOGY / ONCOLOGY PROGRESS NOTE Patient Identification: Name: Damien Pulido Age: 71 y.o. 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 She has lost 13 pound weight. Denies any new lumps of the lymphadenopathy. Denies any other complaint. Review of system Constitutional: denies fevers, sweats, fatigue, malaise, 13 pound weight loss HEENT: denies sinus congestion, hearing [...] No lymphadenopathy Neuro: No obvious focal deficit Left breast no masses lymphadenopathy. Right chest showed scarring but no masses or lymphadenopathy. Examination as above PATH LABS Labs [...] 7 hemoglobin 12.9 platelet 228,000 calcium 9.2 Assessment: Plan: Patient Active Problem List Diagnosis [...] of relapse of disease on my examination. She will continue letrozole which shehas been tolerating well. Left breast mammogram will be done in June 2022. Follow-up in 6 months. Osteopenia. Continue Prolia on every 6-month basis. History of DVT. Continue warfarin. Anemia. Hemoglobin is stable. Aguayo. Liver enzymes stable. Follow-up in 6 months. TOBACCO COUNSELING She is not a tobacco user. 01/16/2022 Lj Fam MD OENGRAVING MACHINE OPERATOR/TENDER documented in this encounter Plan of Treatment Upcoming Encounters Date Type Department Care Team (Late st Contact Info) Description 02/01/2025 11:00 AM CDT Office Visit [facility] Oncology and Hematology [facility] [address] [facility] [address] [place] [address] Lj Fam MD [address] [facility] [address] [place] [address] Scheduled Orders Name Type Priority Associated Diagnoses Orde r Schedule CANCER ANTIGEN 15-3 Lab Routine Malignant neoplasm of upper-outer quadrant of right breast in female, estrogen receptor positive Expected: 07/19/2022, Expires: 01/16/2023 CBC WITH DIFFERENTIAL Lab Stat Malignant neoplasm of upper-outer quadrant of right breast in female, estrogen receptor positive Expected: 07/19/2022, Expires: 01/16/2023 COMPREHENSIVE METABOLIC PANEL Lab Stat Malignant neoplasm of upper-outer quadrant of right breast in female, estrogen receptor positive Expected: 07/19/2022, Expires: 01/16/2023 MAMMO SCRN UNI LEFT W OR WO CAD Imaging Routine Visit for screening mammogram Expected: 06/18/2022, Expires: 01/16/2023 documented as of this encounter Visit Diagnoses Diagnosis Visit for screening mammogram- Primary Other screening mammogram Malignant neoplasm of upper-outer quadrant of right breast in female, estrogen receptor positive documented in this encounter Care Teams Booking Officer Relationship Specialty Start Date End Date Orestes Flores MD [address] [place] [address] PCP - General Internal Medicine 12/09/17 07/29/24 documented as of this encounter
--- OUTSIDE RECORDS SUMMARY | 2024-11-09 18:33 | XMS_ITS | Encounter Summary ---
Author Organization [facility] [employer] [facility] Address [address] [place] [address] Care Team Prov[address] Care Court Stenographer Name Role Phone Orestes Flores MD Primary Care Provider [phone] Encounter Details Date Type Department Care Team ([facility] Contact Info) Description 07/16/2022 Orders Only [facility] Oncology and Hematology [address] [place] [address] Lj Fam MD [address] [place] [address] Malignant neoplasm of upper-outer quadrant [...] AM CDT Office Visit [facility] Oncology and Hematology - Jose Charles [address] [place] [address] Lj Fam MD [address] [place] [address] documented as of this encounter Visit Diagnoses Diagnosis Malignant neoplasm of upper-outer quadrant of right breast in female, estrogen receptor positive documented in this encounter Care Teams Court Stenographer Relationship Specialty Start Date End Date Orestes Flores MD [address] [place] [address] PCP - General Internal Medicine 12/09/17 07/29/24 documented as of this encounter
--- OUTSIDE RECORDS SUMMARY | 2024-11-09 18:33 | XMS_ITS | Encounter Summary ---
Author Organization [facility] Address [address] [place] [address] Care Team Providers Care Bass Fisher Name Role Phone Orestes Flores MD Primary Care Provider [phone] Encounter Details Date Type Department Care Team (Late st Contact Info) Description 12/08/2023 External Device Data STL ABSTRACTION Provider, Abstract [...] Description 02/01/2025 11:00 AM CDT Office Visit [facility] Oncology and Hematology - [place] [address] [facility] [address] [place] [address] Lj Fam MD [address] [facility] [address] [place] [address] documented as of this encounter Visit Diagnoses Not on filedocumented in this encounter Care Teams Bass Fisher Relationship Specialty [place] [address] [place] [address] PCP - General Internal Medicine 12/09/17 07/29/24 documented as of this encounter
--- OUTSIDE RECORDS SUMMARY | 2024-11-09 18:33 | XMS_ITS | Encounter Summary ---
Author Organization [facility] Address [address] [place] [address] Care Team Providers Care Law Office Receptionist Name Role Phone Orestes Flores MD Primary Care Provider [phone] Encounter Details Date Type Department Care Team (Late st Contact Info) Description 10/25/2023 External Device Data STL ABSTRACTION Provider, Abstract [...] Description 02/01/2025 11:00 AM CDT Office Visit [facility] Oncology and Hematology - [place] [address] [facility] [address] [place] [address] Lj Fam MD [address] [facility] [address] [place] [address] documented as of this encounter Visit Diagnoses Not on filedocumented in this encounter Care Teams Law Office Receptionist Relationship Specialty Start Date End Date Orestes Flores MD [address] [place] [address] PCP - General Internal Medicine 12/09/17 07/29/24 documented as of this encounter
--- OUTSIDE RECORDS SUMMARY | 2024-11-09 18:33 | XMS_ITS | Encounter Summary ---
Author Organization [facility] [employer] [facility] Address [address] [place] [address] Care Team Providers Care Wastewater Treatment Plant Attendant Name Role Phone Orestes Flores MD Primary Care Provider [phone] Encounter Details Date Type Department Care Team (Late Contact Info) Description 01/15/2023 Orders Only [facility] Oncology and Hematology [facility] Ed[address]andrew [address] [place] [address] Valarie Victor Malignant neoplasm of [...] suspected to have Coronavirus/COVID-19? No / Unsure 01/16/2023 8:53 AM NATURAL RESOURCE ECONOMIST documented as of this encounter Plan of Treatment Upcoming Encounters Date Type Department Care Team (Late Contact Info) Description 02/01/2025 11:00 AM CDT Office Visit [facility] Oncology and Hematology [address] [place] [address] Lj Fam MD [address] [facility] [address] [place] [address] documented as of this encounter Visit Diagnoses Diagnosis Malignant neoplasm of upper-outer quadrant of right breast in female, estrogen receptor positive documented in this encounter Care Teams Wastewater Treatment Plant Attendant Relationship Specialty Start Date End Date Orestes Flores MD [address] [place] [address] PCP - General Internal Medicine 12/09/17 07/29/24 documented as of this encounter
--- OUTSIDE RECORDS SUMMARY | 2024-11-09 18:33 | XMS_ITS | Encounter Summary ---
Author Organization [facility] Address [address] [place] [address] Care Team Providers Care Program Manufacturing Leader Name Role Phone Orestes Flores MD Primary Care Provider [phone] Encounter Details Date Type Department Care Team (Late st Contact Info) Description 12/30/2023 External Device Data STL ABSTRACTION Provider, Abstract [...] 02/01/2025 11:00 AM CDT Office Visit [facility] Oncology and Hematology - [place] [address] [facility] [address] [place] [address] Lj Fam MD [address] [facility] [address] [place] [address] documented as of this encounter Visit Diagnoses Not on filedocumented in this encounter Care Teams Program Manufacturing Leader Relationship Specialty [place] [address] [place] [phone] PCP - General Internal Medicine 12/09/17 07/29/24 documented as of this encounter
--- OUTSIDE RECORDS SUMMARY | 2024-11-09 18:33 | XMS_ITS | Encounter Summary ---
Author Organization [facility] [employer] [facility] Address [address] [place] [address] Care Team Providers Care Quality Compliance Manager Name Role Phone Orestes Flores MD Primary Care Provider Reason for Visit * Reason Comments Follow Up Encounter Details Date Type Department Care Team ([facility] st Contact Info) Description 01/16/2023 9:15 AM TIMBER POISONER Office Visit [facility] Oncology and Hematology - [place] [address] [place] [address] [address] [place] [address] Lj Fam MD [address] [facility] [address] [place] [address] Malignant neoplasm of upper-outer quadrant of right breast in female, estrogen receptor positive (Primary Dx); Visit for screening mammogram; Osteoporosis due to aromatase inhibitor Social History [...] Coronavirus/COVID-19? No / Unsure 01/16/2023 8:53 AM TIMBER POISONER documented as of this encounter Last Filed Vital Signs Vital Sign Reading Time Taken Comments Blood Pressure 129/84 01/16/2023 8:59 AM TIMBER POISONER Pulse 85 01/16/2023 8:59 AM TIMBER POISONER Temperature 36.1 ??C (97 ??F) 01/16/2023 8:59 AM TIMBER POISONER Respiratory Rate 10 01/16/2023 8:59 AM TIMBER POISONER Oxygen Saturation 98% 01/16/2023 8:59 AM TIMBER POISONER Inhaled Oxygen Concentration - - Weight 86.7 kg (191 lb 3.2 oz) 01/16/2023 8:59 A M TIMBER POISONER Height - - Body Mass Index 28.24 07/20/2022 8:43 AM CDT documented in this encounter Progress Notes * Lj Fam MD - 01/16/2023 9:51 AM CST HEMATOLOGY / ONCOLOGY PROGRESS NOTE Patient Identification: Name: Damien Pulido Age: 72 y.o. 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 She denies any new lumps and bumps. Denies any musculoskeletal discomfort. Weight and appetite stable. No other new complaints. Review of system Constitutional: denies fevers, sweats, fatigue, malaise, and appetite stable. HEENT: denies sinus congestion, [...] rashes. 12 point review system was reviewed Objective: Vital signs in [...] No obvious focal deficit Right chest wall showed no masses or lymphadenopathy. There is a scarring. Left breast no masses orlymphadenopathy. 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 Diagnosed in June 2016. Lab singular tumor marker stable. There is no evidence of relapse of disease on my examination. Shewill continue letrozole. She has been tolerating treatment well. She will continue letrozole total of 7 years duration. We will order left breast screening mammogram in 6 months. Follow-up with me in6 months. Osteopenia. She will continue Prolia. We will order bone density in 6 months. History of DVT. Stable on warfarin. Anemia. Resolved. Aguayo. Liver enzymes normal. Follow-up in 6 months. TOBACCO COUNSELING She is not a tobacco user. 01/16/2023 Lj Fam MD ER POISONER documented in this encounter Plan of Treatment Upcoming Encounters Date Type Department Care Team (Late st Contact Info) Description 02/01/2025 11:00 AM CDT Office Visit [facility] Oncology and Hematology [facility] [address] [facility] [address] [place] [address] Lj Fam MD [address] [facility] [address] [place] [address] documented as of this encounter Visit Diagnoses Diagnosis Malignant neoplasm of upper-outer quadrant of right breast in female, estrogen receptor positive- Primary Visit for screening mammogram Other screening mammogram Osteoporosis due to aromatase inhibitor Other osteoporosis documented in this encounter Care Teams Quality Compliance Manager Relationship Specialty Start Date End Date Orestes Flores MD [address] [place] [address] PCP - General Internal Medicine 12/09/17 07/29/24 documented as of this encounter
--- OUTSIDE RECORDS SUMMARY | 2024-11-09 18:33 | XMS_ITS | Encounter Summary ---
Author Organization [facility] [employer] [facility] Address [address] [place] [address] Care Team Providers Care Ncr Operator Name Role Phone Orestes Flores MD Primary Care Provider [phone] Encounter Details Date Type Department Care Team (Late st Contact Info) Description 07/03/2022 Orders Only [facility] Oncology and Hematology - [place] [address] [place] [address] Linda Elias Visit for screening mammogram Social History Tobacco Use Types Packs/Day Years [...] Description 02/01/2025 11:00 AM CDT Office Visit [facility] Oncology and Hematology - [place] [address] [place] [address] [place] [address] [place] [address] [address] [place] [address] documented as of this encounter Visit Diagnoses Diagnosis Visit for screening mammogram Other screening mammogram documented in this encounter Care Teams Ncr Operator Relationship Specialty Start Date End Date Orestes Flores MD [facility] [place] [address] PCP - General Internal Medicine 12/09/17 07/29/24 documented as of this encounter
--- OUTSIDE RECORDS SUMMARY | 2024-11-09 18:33 | XMS_ITS | Encounter Summary ---
Author Organization [facility] [employer] [facility] Address [address] [place] [address] Care Team Providers Care Intensive Care Anaesthetist Name Role Phone Orestes Flores MD Primary Care Provider [phone] Encounter Details Date Type Department Care Team (Late st Contact Info) Description 07/13/2021 Orders Only [facility] Oncology and Hematology - [place] [address] [place] [address] Linda Elias Malignant neoplasm of [...] Description 02/01/2025 11:00 AM CDT Office Visit [facility] Oncology and Hematology [facility] [address] [place] [address] Lj Fam MD [address] [facility] [address] [place] [address] documented as of this encounter Visit Diagnoses Diagnosis Malignant neoplasm of upper-outer quadrant of right breast in female, estrogen receptor positive documented in this encounter Care Teams Intensive Care Anaesthetist Relationship Specialty Start Date End Date Orestes Flores MD [address] [place] [phone] PCP - General Internal Medicine 12/09/17 07/29/24 documented as of this encounter
--- OUTSIDE RECORDS SUMMARY | 2024-11-09 18:33 | XMS_ITS | Encounter Summary ---
Author Organization [facility] [employer] [facility] Address [address] [place] [address] Care Team Providers Care Steam Presser Name Role Phone Orestes Flores MD Primary Care Provider [phone] Encounter Details Date Type Department Care Team ([facility] Contact Info) Description 01/19/2022 Orders Only [facility] Oncology and Hematology [facility] [address] [place] [address] Linda Elias Malignant neoplasm of [...] COVID-19? No / Unsure 01/16/2022 8:45 AM RADIOCOMMUNICATIONS TECHNICIAN documented as of this encounter Plan of Treatment Upcoming Encounters Date Type Department Care Team (Late Contact Info) Description 02/01/2025 11:00 AM CDT Office Visit [facility] Oncology and Hematology [facility] [address] [place] [address] Lj Fam MD [address] [facility] [address] [place] [address] documented as of this encounter Visit Diagnoses Diagnosis Malignant neoplasm of upper-outer quadrant of right breast in female, estrogen receptor positive documented in this encounter Care Teams Steam Presser Relationship Specialty Start Date End Date Orestes Flores MD [address] [place] [address] PCP - General Internal Medicine 12/09/17 07/29/24 documented as of this encounter
--- OUTSIDE RECORDS SUMMARY | 2024-11-09 18:33 | XMS_ITS | Encounter Summary ---
Author Organization [facility] Address [address] [place] [address] Care Team Providers Care Assistant Professor Nurse Education Name Role Phone Orestes Flores MD Primary Care Provider [phone] Encounter Details Date Type Department Care Team [...] Office Visit [facility] Oncology and Hematology - [place] [address] [facility] [address] [place] [address] Lj Fam MD [address] [facility] [address] [place] [address] documented as of this encounter Visit Diagnoses Not on filedocumented in this encounter Care Teams Assistant Professor Nurse Education Relationship Specialty [place] [address] [place] [phone] PCP - General Internal Medicine 12/09/17 07/29/24 documented as of this encounter
--- OUTSIDE RECORDS SUMMARY | 2024-11-09 18:33 | XMS_ITS | Encounter Summary ---
Author Organization [facility] Address [address] [facility] Attn: Epic Prelude ADT [place] [address] Care Team Providers Care Portable Machine Sander Name Role Phone Orestes Flores MD Primary Care Provider [phone] Encounter Details Date Type Department Care Team (Latest Contact Info) Description 01/16/2022 Travel Social History Tobacco Use Types Packs/Day [...] COVID-19? No / Unsure 01/16/2022 8:45 AM CARE ASST documented as of this encounter Plan of Treatment Upcoming Encounters Date Type Department Care Team (Late st Contact Info) Description 02/01/2025 11:00 AM CDT Office Visit [facility] Oncology and Hematology - [place] [address] [facility] [address] [place] [address] Lj Fam MD [address] [facility] [address] [place] [address] documented as of this encounter Visit Diagnoses Not on filedocumented in this encounter Care Teams Portable Machine Sander Relationship Specialty Start Date End Date Orestes Flores MD [address] [place] [address] PCP - General Internal Medicine 12/09/17 07/29/24 documented as of this encounter
--- OUTSIDE RECORDS SUMMARY | 2024-11-09 18:33 | XMS_ITS | Encounter Summary ---
Author Organization [facility] Address [address] [place] [address] Care Team Providers Care Dip Guider Stoves Name Role Phone Orestes Flores MD Primary Care Provider [phone] Encounter Details Date Type Department Care Team (Late st Contact Info) Description 12/05/2023 External Device Data STL ABSTRACTION Provider, Abstract [...] Description 02/01/2025 11:00 AM CDT Office Visit [facility] Oncology and Hematology - [place] [address] [facility] [address] [place] [address] Lj Fam MD [address] [facility] [address] [place] [address] documented as of this encounter Visit Diagnoses Not on filedocumented in this encounter Care Teams Dip Guider Stoves Relationship Specialty [place] [address] [place] [phone] PCP - General Internal Medicine 12/09/17 07/29/24 documented as of this encounter
--- OUTSIDE RECORDS SUMMARY | 2024-11-09 18:33 | XMS_ITS | Encounter Summary ---
Author Organization [facility] Address [address] [place] [address] Care Team Providers Care Lock Maintenance Supervisor Name Role Phone Orestes Flores MD Primary Care Provider Encounter Details Date Type Department Care Team (Late st Contact Info) Description 12/11/2023 External Device Data STL ABSTRACTION Provider, Abstract [...] Visit [facility] Oncology and Hematology - [place] [address] [facility] [address] [place] [address] Lj Fam MD [address] [facility] [address] [place] [address] documented as of this encounter Visit Diagnoses Not on filedocumented in this encounter Care Teams Lock Maintenance Supervisor Relationship Specialty [place] [address] [place] [phone] PCP - General Internal Medicine 12/09/17 07/29/24 documented as of this encounter
--- OUTSIDE RECORDS SUMMARY | 2024-11-09 18:33 | XMS_ITS | Encounter Summary ---
Author Organization [facility] [employer] [facility] Address [address] [place] [address] Care Team Providers Care Pr Internship Name Role Phone Orestes Flores MD Primary Care Provider [phone] Encounter Details Date Type Department Care Team ([facility] Contact Info) Description 07/18/2021 Orders Only [facility] Oncology and Hematology [facility] [address] [place] [address] Linda Elias Malignant neoplasm of [...] Description 02/01/2025 11:00 AM CDT Office Visit [facility] Oncology and Hematology [facility] [address] [place] [address] Lj Fam MD [address] [facility] [address] [place] [address] documented as of this encounter Visit Diagnoses Diagnosis Malignant neoplasm of upper-outer quadrant of right breast in female, estrogen receptor positive documented in this encounter Care Teams Pr Internship Relationship Specialty Start Date End Date Orestes Flores MD [address] [place] [address] PCP - General Internal Medicine 12/09/17 07/29/24 documented as of this encounter
--- OUTSIDE RECORDS SUMMARY | 2024-11-09 18:33 | XMS_ITS | Encounter Summary ---
Author Organization [facility] [employer] [facility] Address [address] [place] [address] Care Team Providers Care Demand Planner Name Role Phone Orestes Flores MD Primary Care Provider [phone] Encounter Details Date Type Department Care Team ([facility] Contact Info) Description 07/15/2022 Orders Only [facility] Oncology and Hematology Jose [address]se[address] [place] [address] Lj Fam MD [address] [employer] [address] [place] [address] Malignant neoplasm of upper-outer quadrant [...] Description 02/01/2025 11:00 AM CDT Office Visit [facility] Oncology and Hematology - [place] Charles Aguilar [address] [place] [address] Lj Fam MD [address] [employer] [address] [place] [address] documented as of this encounter Visit Diagnoses Diagnosis Malignant neoplasm of upper-outer quadrant of right breast in female, estrogen receptor positive documented in this encounter Care Teams Demand Planner Relationship Specialty Start Date End Date Orestes Flores MD [address] [place] [address] PCP - General Internal Medicine 12/09/17 07/29/24 documented as of this encounter
--- OUTSIDE RECORDS SUMMARY | 2024-11-09 18:33 | XMS_ITS | Encounter Summary ---
Author Organization [facility] [employer] [facility] Address [address] [place] [address] Care Team Providers Care Policy Writer Sales Name Role Phone Orestes Flores MD Primary Care Provider [phone] Reason for Visit * Reason Comments Cancer Follow Up Encounter Details Date Type Department Care Team (Late st Contact Info) Description 07/25/2023 10:00 AM CDT Office Visit [facility] Oncology and Hematology - [place] 2[address] [facility] [address] [place] [address] Lj Fam MD 2227 [facility] [address] [place] [address] Malignant neoplasm of upper-outer quadrant [...] Sign Reading Time Taken Comments Blood Pressure 129/79 07/25/2023 9:43 AM CDT Pulse 95 07/25/2023 9:43 AM CDT Temperature 36.6 ??C (97.8 ??F) 07/25/2023 9:43 AM CD T Respiratory Rate 18 07/25/2023 9:43 AM CDT Oxygen Saturation 97% 07/25/2023 9:43 AM CDT Inhaled Oxygen Concentration - - Weight 87.5 kg (193 lb) 07/25/2023 9:43 AM CDT Height - - Body Mass Index 28.5 07/20/2022 8:43 AM CDT documented in this encounter Progress Notes * Lj Fam MD - 07/25/2023 10:35 AM CDT HEMATOLOGY / ONCOLOGY PROGRESS NOTE Patient Identification: Name: Damien Puliod Age: 73 y.o. 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 She denies any new lung significant neuropathy. Her weight and appetite stable. She has been tolerating Femara well. No other new complaints. Review of system [...] Right chest wall examination showed no masses and lymphadenopathy. Left breast no masses and lymphadenopathy. 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 Diagnosed in June 2016. There is no evidence of relapse of disease on my examination. Tumor marker stable. Mammogram of theleft breast done on July 18 showed no evidence of disease. Repeat mammogram will be done in 1 year. Continue Femara which has been tolerating it well. She will continue that for total of 7 years duration. Follow-up in 6 months. Osteopenia. Bone density repeated on July 18 showed normal finding. She will continue Prolia onevery 6-month basis for total of 5 years duration. Anemia. Resolved. Aguayo. Slightly elevated AST but stable. History of DVT. Stable on warfarin. Follow-up in 6 months. 07/25/2023 Lj Fam MD documented in this encounter Plan of Treatment Upcoming Encounters Date Type Department Care Team (Late st Contact Info) Description 02/01/2025 11:00 AM CDT Office Visit [facility] Oncology and Hematology [facility] [address] [facility] [address] [place] [address] Lj Fam MD [address] [facility] [address] [place] [address] documented as of this encounter Visit Diagnoses Diagnosis Malignant neoplasm of upper-outer quadrant of right breast in female, estrogen receptor positive- Primary documented in this encounter Care Teams Policy Writer Sales Relationship Specialty [place] [address] [place] [address] PCP - General Internal Medicine 12/09/17 07/29/24 documented as of this encounter
--- OUTSIDE RECORDS SUMMARY | 2024-11-09 18:33 | XMS_ITS | Encounter Summary ---
Author Organization [facility] [employer] [facility] Address [address] [place] [address] Care Team Providers Care Expanded Function Dental Assistant Name Role Phone Orestes Flores MD Primary Care Provider [phone] Reason for Visit * Reason Comments Cancer Follow Up Encounter Details Date Type Department Care Team (Late st Contact Info) Description 07/20/2022 8:45 AM CDT Office Visit [facility] Oncology and Hematology - [place] [address] [facility] [address] [place] [address] Lj Fam MD [address] [facility] [address] [place] [address] Malignant neoplasm of upper-outer quadrant of right breast in female, estrogen receptor positive (Primary Dx); Chest pain, unspecified type Social History Tobacco [...] Sign Reading Time Taken Comments Blood Pressure 132/80 07/20/2022 8:43 AM CDT Pulse 81 07/20/2022 8:43 AM CDT Temperature 36.5 ??C (97.7 ??F) 07/20/2022 8:43 AM CD T Respiratory Rate - - Oxygen Saturation 99% 07/20/2022 8:43 AM CDT Inhaled Oxygen Concentration - - Weight 84.8 kg (187 lb) 07/20/2022 8:43 AM CDT Height 175.3 cm (5' 9 ) 07/20/2022 8:43 AM CDT Body Mass Index 27.62 07/20/2022 8:43 AM CDT documented in this encounter Progress Notes * Lj Fam MD - 07/20/2022 1:26 PM CDT HEMATOLOGY / ONCOLOGY PROGRESS NOTE Patient Identification: Name: Damien Pulido Age: 72 y.o. 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 She complain of some right-sided musculoskeletal pain and occasional pain with deep breathing. She has lost 6 pound weight. No other new complaints. Review of system Constitutional: denies fevers, sweats, fatigue, malaise, 6 pound weight loss right HEENT: denies sinus congestion, hearing or vision [...] Left breast no masses lymphadenopathy. Right chest wall scarring but no masses lymphadenopathy. 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 Diagnosed in June 2016. Evidence of relapse of disease on my examination. Left breast mammogram done on July 02 showed noevidence of disease. Repeat mammogram will be done in 1 year. Continue letrozole. She is complaining of some right-sided musculoskeletal discomfort could be secondary to letrozole. I offered CT scan but she wants to wait and just get the labs done first. I will order a D-dimer. Based on the D-dimerwe will decide about the CT scan. Osteopenia. Continue Prolia on every 6-month basis. History of DVT. Continue warfarin. Anemia. Hemoglobin is stable. Aguayo. Liver enzymes stable. Follow-up in 6 months. TOBACCO COUNSELING She is not a tobacco user. 07/20/2022 Lj Fam MD documented in this encounter Plan of Treatment Upcoming Encounters Date Type Department Care Team (Late st Contact Info) Description 02/01/2025 11:00 AM CDT Office Visit [facility] Oncology and Hematology - [place] [address] [place] [address] [address] [place] [address] Lj Fam MD [address] [facility] [address] [place] [address] Scheduled Orders Name Type Priority Associated Diagnoses Orde r Schedule CANCER ANTIGEN 15-3 Lab Routine Malignant neoplasm of upper-outer quadrant of right breast in female, estrogen receptor positive Expected: 01/17/2023, Expires: 07/20/2023 CBC WITH DIFFERENTIAL Lab Stat Malignant neoplasm of upper-outer quadrant of right breast in female, estrogen receptor positive Expected: 01/17/2023, Expires: 07/20/2023 COMPREHENSIVE METABOLIC PANEL Lab Stat Malignant neoplasm of upper-outer quadrant of right breast in female, estrogen receptor positive Expected: 01/17/2023, Expires: 07/20/2023 D-DIMER Lab Stat Chest pain, unspecified type Expected: 07/20/2022, Expires: 07/20/2023 documented as of this encounter Visit Diagnoses Diagnosis Malignant neoplasm of upper-outer quadrant of right breast in female, estrogen receptor positive- Primary Chest pain, unspecified type documented in this encounter Care Teams Expanded Function Dental Assistant Relationship Specialty Start Date End Date Orestes Flores MD [address] [place] [address] PCP - General Internal Medicine 12/09/17 07/29/24 documented as of this encounter
--- OUTSIDE RECORDS SUMMARY | 2024-11-09 18:33 | XMS_ITS | Encounter Summary ---
Author Organization [facility] Address [address] [facility] Attn: Epic Prelude ADT [place] [address] Care Team Providers Care Occupational Therapist Assistants Name Role Phone Orestes Flores MD Primary Care Provider [phone] Encounter Details Date Type Department Care Team (Latest Contact Info) Description 01/16/2023 Travel Social History Tobacco Use Types Packs/Day [...] Coronavirus/COVID-19? No / Unsure 01/16/2023 8:53 AM SAP SECURITY ARCHITECT documented as of this encounter Plan of Treatment Upcoming Encounters Date Type Department Care Team (Late st Contact Info) Description 02/01/2025 11:00 AM CDT Office Visit [facility] Oncology and Hematology - [place] [address] [facility] [address] [place] [address] Lj Fam MD [address] [facility] [address] [place] [address] documented as of this encounter Visit Diagnoses Not on filedocumented in this encounter Care Teams Occupational Therapist Assistants Relationship Specialty Start Date End Date Orestes Flores MD [address] [place] [address] PCP - General Internal Medicine 12/09/17 07/29/24 documented as of this encounter
--- OUTSIDE RECORDS SUMMARY | 2024-11-09 18:33 | XMS_ITS | Encounter Summary ---
Author Organization [facility] Address [address] [facility] Attn: Epic Prelude ADT [place] [address] Care Team Providers Care Patient Educator Name Role Phone Orestes Flores MD Primary Care Provider [phone] Encounter Details Date Type Department Care Team (Latest Contact Info) Description 07/20/2022 Travel Social History Tobacco Use Types Packs/Day [...] Visit [facility] Oncology and Hematology - [place] [address] [facility] [address] [place] [address] Lj Fam MD [address] [facility] [address] [place] [address] documented as of this encounter Visit Diagnoses Not on filedocumented in this encounter Care Teams Patient Educator Relationship Specialty Start Date End Date Orestes Flores MD [address] [place] [address] PCP - General Internal Medicine 12/09/17 07/29/24 documented as of this encounter
--- OUTSIDE RECORDS SUMMARY | 2024-11-09 18:33 | XMS_ITS | Encounter Summary ---
Author Organization [facility] Address [address] [place] [address] Care Team Providers Care Gear Lapping Machine Operator Name Role Phone Orestes Flores MD Primary Care Provider [phone] Encounter Details Date Type Department Care Team [...] [place] Oncology and Hematology - [place] 2227 [facility] [address] [place] [address] Lj Fam MD [address] [facility] [address] [place] [address] documented as of this encounter Visit Diagnoses Not on filedocumented in this encounter Care Teams Gear Lapping Machine Operator Relationship Specialty [place] [address] [place] [address] PCP - General Internal Medicine 12/09/17 07/29/24 documented as of this encounter
--- OUTSIDE RECORDS SUMMARY | 2024-11-09 18:33 | XMS_ITS | Encounter Summary ---
Author Organization [facility] Address [address] [place] [address] Care Team Providers Care Datastage Consultant Name Role Phone Orestes Flores MD Primary Care Provider [phone] Encounter Details Date Type Department Care Team (Late st Contact Info) Description 03/31/2024 External Device Data STL ABSTRACTION Provider, Abstract [...] Description 02/01/2025 11:00 AM CDT Office Visit [facility] Oncology and Hematology - [place] [address] [facility] [address] [place] [address] Lj Fam MD [address] [facility] [address] [place] [address] documented as of this encounter Visit Diagnoses Not on filedocumented in this encounter Care Teams Datastage Consultant Relationship Specialty [place] [address] [place] [address] PCP - General Internal Medicine 12/09/17 07/29/24 documented as of this encounter
--- OUTSIDE RECORDS SUMMARY | 2024-11-09 18:33 | XMS_ITS | Encounter Summary ---
Author Organization [facility] Address [address] [place] [address] Care Team Providers Care Office Clinician Name Role Phone Orestes Flores MD Primary Care Provider [phone] Encounter Details Date Type Department Care Team [...] Office Visit [facility] Oncology and Hematology - [place] 2[address] [facility] [address] [place] [address] Lj Fam MD [address] [facility] [address] [place] [address] documented as of this encounter Visit Diagnoses Not on filedocumented in this encounter Care Teams Office Clinician Relationship Specialty [place] [address] [place] [address] PCP - General Internal Medicine 12/09/17 07/29/24 documented as of this encounter
--- OUTSIDE RECORDS SUMMARY | 2024-11-09 18:33 | XMS_ITS | Encounter Summary ---
Author Organization [facility] [facility] Address [address] [place] [address] Care Team Providers Care Mushroom Sorter Grader Name Role Phone Orestes Flores MD Primary Care Provider [phone] Encounter Details Date Type Department Care Team (Late Contact Info) Description 01/20/2024 Orders Only [facility] [address] [place] [address] Lj Fam MD [address] [place] [address] [employer] [address] [place] [address] Social History Tobacco Use Types Packs/Day [...] Description 02/01/2025 11:00 AM CDT Office Visit [facility] Oncology and Hematology - [place] Charles [address]ilar [address] [place] [address] Lj Fam MD [address] [place] [address] [employer] [address] [place] [address] documented as of this encounter Procedures Procedure Name Priority Date/Time Associated Diagnosis Comments CBC WITH DIFFERENTIAL Routine 01/20/2024 1:17 PM CDT documented in this encounter Results * CBC WITH DIFFERENTIAL (01/20/2024 1:17 PM CDT) Blood Lj Fam MD HEMATOLOGY ORDERABLE S documented in this encounter Visit Diagnoses Not on filedocumented in this encounter Care Teams Mushroom Sorter Grader Relationship Specialty Start Date End Date Orestes Flores MD [address] [place] [address] PCP - General Internal Medicine 12/09/17 07/29/24 documented as of this encounter
--- OUTSIDE RECORDS SUMMARY | 2024-11-09 18:33 | XMS_ITS | Encounter Summary ---
Author Organization [facility] Address [address] [place] [address] Care Team Providers Care Pillow Filler Name Role Phone Orestes Flores MD Primary Care Provider [phone] Reason for Visit * Reason Comments Med Refill Encounter Details Date Type Department Care Team ([facility] Contact Info) Description 10/15/2022 Refill [facility] Oncology and Hematology [place] [address] [place] [address] Lj Fam MD [address] [place] [address] [employer] [address] [place] [address] Social History Tobacco Use Types Packs/Day [...] Upcoming Encounters Date Type Department Care Team ([facility] Contact Info) Description 02/01/2025 11:00 AM CDT Office Visit [facility] Oncology and Hematology - [place] Charles Aguilar [address] [place] [address] Lj Fam MD [facility] [email or web address] [address] [place] [address] documented as of this encounter Visit Diagnoses Not on filedocumented in this encounter Care Teams Pillow Filler Relationship Specialty Start Date End Date Orestes Flores MD [address] [place] [phone] PCP - General Internal Medicine 12/09/17 07/29/24 documented as of this encounter
--- OUTSIDE RECORDS SUMMARY | 2024-11-09 18:34 | XMS_ITS | Encounter Summary ---
Author Organization [facility] Address [address] [place] [address] Care Team Providers Care Ceo [place] Name Role Phone Unavailable Primary Care Provider Unavailabl e Reason for Visit * Reason Comments Follow Up Encounter Details Date Type Department Care Team ([facility] Contact Info) Description 08/27/2017 9:00 AM CDT Office Visit [facility] ([facility] Oncology and Hematology - [place] [address] [place] [address] [facility] [address] [place] [address] Lj Fam MD [address] [facility] [address] [place] [address] Malignant neoplasm of female breast, unspecified laterality, unspecified site of breast (Primary Dx) Social History Tobacco Use Types [...] Sign Reading Time Taken Comments Blood Pressure 108/77 08/27/2017 9:14 AM CDT Pulse 104 08/27/2017 9:14 AM CDT Temperature 36.9 ??C (98.5 ??F) 08/27/2017 9:14 AM CD T Respiratory Rate 16 08/27/2017 9:14 AM CDT Oxygen Saturation - - Inhaled Oxygen Concentration - - Weight 79.8 kg (176 lb) 08/27/2017 9:14 AM CDT Height 175.3 cm (5' 9 ) 08/27/2017 9:14 AM CDT Body Mass Index 25.99 08/27/2017 9:14 AM CDT documented in this encounter Progress Notes * Lj Fam MD - 08/27/2017 1:37 PM CDT HEMATOLOGY / ONCOLOGY PROGRESS NOTE Patient Identification: Name: Damien Pulido Age: 67 y.o. Sex: female : 1950 Subjective: HPI This is a pleasant 66-year-old female who was diagnosed with localized right-sided breastcancer in 1994 status post lumpectomy and radiation therapy. She did not receive any adjuvant chemotherapy or adjuvant hormonal therapy. Patient now noticed inverted nipple on the right breast. Initial mammogram done in May 2016 came back unremarkable. Patient was referred to Dr. Fontanez. MRI ofthe breast was ordered that showed large mass in the right breast extending to the neck no. There was also enhancement of the right rib anteriorly. Patient had PET/CT done on July 11, 2016 came back negative for metastatic disease other than on the increased FDG activity in the right breast. She had a core biopsy of the mass performed on June 26, 2016 showed mixed ductal and lobular invasive c arcinoma moderately differentiated ER/ID positive HER-2/eleuterio negative Ki-67 less than 20%. Patient was started on neoadjuvant chemotherapy with Adriamycin and Cytoxan on July 19, 2016 her last chemotherapy which was cycle #3 on August 16, 2016. She was notified that her current oncology service does not cover her insurance. Patient is in my office for continuation of neoadjuvant chemotherapy. Patient completed last chemotherapy with dose dense Taxol on October 31, 2016. Interval History: Patient completed radiation therapy on February 13 2017. Bone density was performed in [facility]. Patient received prolia injection on May 28, 2017. Review of system Constitutional: No fever; no night sweats; no anorexia; no weight loss; some tiredness and fatigue Respiratory: No shortness of breath; no pleuritic chest pain; no cough; no hemoptysis Cardiac: No cardiac-like chest pain; no palpitations; no orthopnea; no PND; no BE GI: No abdominal pain; no nausea; no vomiting; no diarrhea; no hematochezia; no melena Musculosketetal: no bone pain; no arthralgia; no joint swelling; no myalgia; Neuro: No headache; no change in vision; complain of neuropathy involving fingers and mainly in toes; no muscle weakness; no confusion; no seizures Ext no edema Objective: Vital signs in last 24 hours: As per nursing note Exam: Gen: NAD Lungs: Clear Cardiac: S1 and S2 without murmurs or gallops Abd: Soft, tender, no hepatomegally, no masses Extr: No LE edema Right chest wall showed no evidence of masses and lymphadenopathy, left breast showed no evidence of mass and lymphadenopathy. Scheduled Meds:[email or web address] Continuous Infusions:[email or web address]@ Data Review: [facility] Labs showed WBC 4.4 hemoglobin 11.6 platelet one 93,000 creatinine 0.8. Labs from May 27 showed WBC 4.3 hemoglobin 11.1 MCV 103.7 and platelet 186,000. Labs from August 27 showed WBC 3.9 hemoglobin 11.2 creatinine 0.7 platelet 192,000 potassium 4.1. Assessment: Plan: Patient Active Problem List Diagnosis Date Noted ??? Screening for osteoporosis 12/21/2016 ??? 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 Acquired hypothyroidism 08/27/2016 Mixed ductal and lobular invasive carcinoma moderately differentiated T4, N0, M0 stage IIIB disease, status post ultrasound-guided core biopsy on June 26, 2016, ER/ID positive HER-2/eleuterio negative Ki-67 less than 20%. MRI breast done July 04, 2016 and showed 5.6 x 5.1 cm mass in the central mid portion of the right breast. ? PET scan done on July 11, 2016 came back negative for metastatic disease. Patient prior to that has history of localized right-sided breast cancer in 1995 status post lumpectomy and adjuvant radiation therapy. She did not receive any adjuvant chemotherapy and hormonal therapy. ? Patient has completed neoadjuvant chemotherapy with dose dense Adriamycin and Cytoxan and dose dense Taxol on October 31, 2016. Patient had right-sided mastectomy done on November 20, 2016. Pathologyreport reviewed that showed positive superior and inferior margins. Patient completed radiation therapy in February 2017. Patient has started Arimidex 1 mg daily in February 2017. There is no evidence of relapse of disease on my examination. Mammogram done on July 08, 2017 showed fibroadenomatosis calcification. Routine mammography was recommended in one year. Bone health. Bone density testing showed osteopenia. Patient will continue vitamin D and calcium. She will continue prolia every 6 months basis. Chemotherapy-induced neuropathy. Patient will restart Neurontin due to worsening of the neuropathy. Anemia secondary to chemotherapy. Hemoglobin remains low but has improved. I will repeat CBC along with iron studies and vitamin B12 level in 3 months. ? 08/27/2017 Lj Fam MD documented in this encounter Plan of Treatment Upcoming Encounters Date Type Department Care Team (Late st Contact Info) Description 02/01/2025 11:00 AM CDT Office Visit [facility] ([facility] Oncology and Hematology [facility] [address] [facility] [address] [place] [address] Lj Fam MD [address] [facility] [address] [place] [address] documented as of this encounter Results * CANCER ANTIGEN 27-29 (12/03/2017) Blood Lj Fam MD CHEMISTRY ORDERABLES COM Performing Organization Address City/[facility]/ZIP Co de Phone Number EXTERNAL LAB * IRON, TIBC, AND PERCENT SATURATION (11/26/2017) Blood Lj Fam MD CHEMISTRY ORDERABLES Performing Organization Address City/[facility]/ZIP Co de Phone Number EXTERNAL LAB * VITAMIN B12 AND FOLATE (11/26/2017) Blood Lj Fam MD CHEMISTRY ORDERABLES EXTERNAL LAB * FERRITIN (11/26/2017) Blood Lj Fam MD CHEMISTRY ORDERABLES Performing Organization Address City/[facility]/ZIP Co de Phone Number EXTERNAL LAB * CBC WITH DIFFERENTIAL (11/26/2017) Blood Lj Fam MD HEMATOLOGY ORDERABLE S Performing Organization Address [facility] Co de Phone Number EXTERNAL LAB * COMPREHENSIVE METABOLIC PANEL (11/26/2017) Blood Lj Fam MD CHEMISTRY ORDERABLES Performing Organization Address [facility] Co de Phone Number EXTERNAL LAB documented in this encounter Visit Diagnoses Diagnosis Malignant neoplasm of female breast, unspecified laterality, unspecified site of breast- Primary documented in this encounter
--- OUTSIDE RECORDS SUMMARY | 2024-11-09 18:34 | XMS_ITS | Encounter Summary ---
Author Organization [facility] Address [address] [place] [address] Care Team Providers Care Hog Stomach Preparer Name Role Phone Unavailable Primary Care Provider Unavailabl e Reason for Visit * Reason Onset Date Comments Arm swelling 12/06/2017 Encounter Details Date Type Department Care Team (Late Contact Info) Description 12/06/2017 Telephone [facility] Oncology [facility] [address] [place] [address] Lj Fam MD [address] [employer] [address] [place] [address] Arm swelling Social History Tobacco Use Types Packs/Day Years Used Date Smoking Tobacco: Never Alcohol Use Standard Drinks/Week Comments Yes 0 (1 standard drink = 0.6 oz pur e alcohol) Sex and Gender Information Value Date Recorded Sex Assigned at Not on file Gender Identity Not on file Sexual Orientation Not on file documented as of this encounter Miscellaneous Notes * Telephone Encounter - Jennifer Nielsen RN - 12/06/2017 9:31 AM CST Pt not feeling well has facial and right arm swelling. OV for this am scheduled. Jennifer Nielsen RN IMAGING documented in this encounter Plan of Treatment Upcoming Encounters Date Type Department Care Team (Late Contact Info) Description 02/01/2025 11:00 AM CDT Office Visit [facility] Oncology [facility] Hematology [facility] [address] [place] [address] Lj Fam MD [address] [address] documented as of this encounter Visit Diagnoses Not on filedocumented in this encounter
--- OUTSIDE RECORDS SUMMARY | 2024-11-09 18:34 | XMS_ITS | Encounter Summary ---
Author Organization [facility] Address [address] [place] [address] Care Team Providers Care Field Radio Operator Name Role Phone Orestes Flores MD Primary Care Provider [phone] Encounter Details Date Type Department Care Team ([facility] Contact Info) Description 11/29/2020 Orders Only [facility] Oncology and Hematology - Jose [address] [place] [address] Provider, Abstract NO ADDRESS ON FILE Social [...] have Coronavirus / COVID-19? No / Unsure 12/01/2020 10:49 AM DIRECTOR [employer] documented as of this encounter Plan of Treatment Upcoming Encounters Date Type Department Care Team ([facility] Contact Info) Description 02/01/2025 11:00 AM CDT Office Visit [facility] Oncology and Hematology - Jose [address] [place] [address] Lj Fam MD [address] [facility] [address] [place] [address] documented as of this encounter Procedures Procedure Name Priority Date/Time Associated Diagnosis Comments CANCER ANTIGEN 125 Routine 11/24/2020 documented in this encounter Results * CANCER ANTIGEN 125 (11/24/2020) Blood Abstract Provider CHEMISTRY ORDERABLES NON [facility] documented in this encounter Visit Diagnoses Not on filedocumented in this encounter Care Teams Field Radio Operator Relationship Specialty Start Date End Date Orestes Flores MD [address] [place] [address] PCP - General Internal Medicine 12/09/17 07/29/24 documented as of this encounter
--- OUTSIDE RECORDS SUMMARY | 2024-11-09 18:34 | XMS_ITS | Encounter Summary ---
Author Organization [facility] Address [address] [place] [address] Care Team Providers Care Bow Stapler Name Role Phone Orestes Flores MD Primary Care Provider [phone] Encounter Details Date Type Department Care Team (Late Contact Info) Description 03/27/[address] [facility] Oncology and Hematology Jose [address] [place] [address] Lj Fam MD [address] [place] [address] Hypercoagulable state Social History Tobacco Use Types Packs/Day Years [...] Upcoming Encounters Date Type Department Care Team ([facility] Contact Info) Description 02/01/2025 11:00 AM CDT Office Visit [facility] Oncology and Hematology - Jose [address] [place] [address] Lj Fam MD [address] [place] [address] documented as of this encounter Procedures Procedure Name Priority Date/Time Associated Diagnosis Comments CTA CHEST W AND/OR WO CONTRAST Routine 03/26/2018 Hypercoagulable state documented in this encounter Results * CTA CHEST W CONTRAST (03/26/2018) Anatomical Region Laterality Modality Chest Other Lj Fam MD CT ORDERABLES documented in this encounter Visit Diagnoses Diagnosis Hypercoagulable state Primary hypercoagulable state documented in this encounter Care Teams Bow Stapler Relationship Specialty Start Date End Date Orestes Flores MD [address] [place] [address] PCP - General Internal Medicine 12/09/17 07/29/24 documented as of this encounter
--- OUTSIDE RECORDS SUMMARY | 2024-11-09 18:34 | XMS_ITS | Encounter Summary ---
Author Organization [facility] Address [address] [place] [address] Care Team Providers Care Sign Manufacturer Name Role Phone Orestes Flores MD Primary Care Provider [phone] Reason for Visit * Reason Comments Medication Refill Encounter Details Date Type Department Care Team ([facility] Contact Info) Description 03/18/2019 Refill [facility] Oncology and Hematology Jose [address] [place] [address] Lj Fam MD [address] [place] [address] [employer] [address] [place] [address] Social History Tobacco Use Types Packs/Day [...] Upcoming Encounters Date Type Department Care Team ([facility] Contact Info) Description 02/01/2025 11:00 AM CDT Office Visit [facility] Oncology and Hematology - Jose [address] [place] [address] Lj Fam MD [facility] [employer] [address] [place] [address] documented as of this encounter Visit Diagnoses Not on filedocumented in this encounter Care Teams Sign Manufacturer Relationship Specialty Start Date End Date Orestes Flores MD [address] [place], [place] [phone] PCP - General Internal Medicine 12/09/17 07/29/24 documented as of this encounter
--- OUTSIDE RECORDS SUMMARY | 2024-11-09 18:34 | XMS_ITS | Encounter Summary ---
Author Organization [facility] Address [address] [place] [address] Care Team Providers Care Photographic Hand Developer Name Role Phone Orestes Flores MD Primary Care Provider [phone] Reason for Referral * Eval and Treat (Routine) - Closed Specialty Diagnoses / Procedures Referred By Quinn cooper Referred To Contact Surgery Diagnoses Malignant neoplasm of breast in female, estrogen receptor positive, unspecified laterality, unspecified site of breast Lj Fam MD [address] [facility] [employer] [address] [place] [address] Referral ID Status Reason Start Date Expiration Date V isits Requested Visits Authorized [id number] Closed CRS To Schedule (STL) 01/10/2018 12/26/2018 1 1 AZZO FINISHER * Outpatient Services (Routine) - Closed Specialty Diagnoses / Procedures Referred By Quinn cooper Referred To Contact Radiology Diagnoses Malignant neoplasm of breast in female, estrogen receptor positive, unspecified laterality, unspecified site of breast Procedures CTA CHEST W WO CONTRAST Lj Fam MD [address] [place] [phone] Referral ID Status Reason Start Date Expiration Date Visits Requested Visits Authorized [id number] Closed Ordering Department To Schedule 12/26/2017 01/26/2019 1 1 AZZO FINISHER Reason for Visit * Reason Comments Arm swelling Patient also has swe lling in her face. This has been ongoing for the past week. Encounter Details Date Type Department Care Team (Late st Contact Info) Description 12/26/2017 11:00 AM TERRAZZO FINISHER Office Visit [facility] Oncology and Hematology [facility] [address] [facility] [address] [place] [address] Lj Fam MD [address] [facility] [address] [place] [address] Malignant neoplasm of breast in female, estrogen receptor positive, unspecified laterality, unspecified site of breast (Primary Dx); Hypercoagulable state Social History Tobacco Use Types [...] Sign Reading Time Taken Comments Blood Pressure 120/79 12/26/2017 11:02 AM TERRAZZO FINISHER Pulse 101 12/26/2017 11:02 AM TERRAZZO FINISHER Temperature 36.8 ??C (98.3 ??F) 12/26/2017 1 1:02 AM TERRAZZO FINISHER Respiratory Rate - - Oxygen Saturation 95% 12/26/2017 11: 02 AM TERRAZZO FINISHER Inhaled Oxygen Concentration - - Weight 83.9 kg (184 lb 14.4 oz) 018 11:02 AM TERRAZZO FINISHER Height 175.3 cm (5' 9 ) 12/26/2017 11:0 2 AM TERRAZZO FINISHER Body Mass Index 27.3 12/26/2017 11:02 AM TERRAZZO FINISHER documented in this encounter Progress Notes * Lj Fam MD - 12/26/2017 11:22 AM CST HEMATOLOGY / ONCOLOGY PROGRESS NOTE [...] and lobular invasive c arcinoma moderately differentiated ER/OK positive HER-2/eleuterio negative Ki-67 less than 20%. [...] 13 2017. Bone density was performed in [facility]2016. Patient received prolia injection on May 28, 2017. Patient started Atarax for itching on November 26 and developed hypersensitivity with swelling especially in the face and upper extremity. She has discontinued Atarax and Neurontin due to dizziness and lightheadedness. Patient is started taking Synthroid 3 weeks ago. Her facial swelling went down after using Medrol Dosepak for nausea started having right upper extremity swelling about 4 days ago. Patient received first dose of the Prolia on November 26 2017. Review of system Constitutional: No fever; no night sweats; no anorexia; no weight loss; some tiredness and fatigue Respiratory: Complain of shortness of breath; no pleuritic chest pain; no cough; no hemoptysis Cardiac: No cardiac-like chest pain; no palpitations; no orthopnea; no PND; complain of BE GI: No abdominal pain; no nausea; no vomiting; no diarrhea; no hematochezia; no melena, complain ofsome soreness in throat Musculosketetal: no bone pain; no arthralgia; no joint swelling; no myalgia; Neuro: No headache; no change in vision; complain of neuropathy involving fingers and mainly in toes; no muscle weakness; no confusion; no seizures Ext bilateral lower extremity showed scratches secondary to itching has improved. Patient complain of right upper extremity swelling. Objective: Vital signs in last 24 hours: As per nursing note Exam: Gen: NAD Lungs: Clear Cardiac: S1 and S2 without murmurs or gallops Abd: Soft, tender, no hepatomegally, no masses Extr: Right upper extremity swelling Right chest wall showed no evidence of [...] 11.2 creatinine 0.7 platelet 192,000 potassium 4.1. Labs from November 26 showed WBC count 6.5 hemoglobin 10.9 platelet count 215 Assessment: Plan: Patient Active Problem List Diagnosis Date Noted ??? Screening for osteoporosis 12/21/2016 ??? 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 [...] prolia every 6 months basis. Chemotherapy-induced neuropathy. Her lightheadedness has much improved and she will restart Neurontin 300 mg once a day. Anemia secondary to chemotherapy. Hemoglobin is 10.9 today. Other labs including iron and B12 studies are pending. Her shortness of breath is likely secondary to anemia. Itching and bilateral lower extremity. Itching is better after using Medrol Dosepak. Hypersensitivity reaction with facial swelling. TSH came back elevated with low free T3 level. Patient is on Synthroid and already feeling better with less lightheadedness. Facial swelling improved after using Medrol Dosepak. Right upper extremity swelling. Concerning for blood clot. I will order CT chest angiogram. I will also refer her for a port removal. .12/26/2017 Lj Fam MD AZZO FINISHER documented in this encounter Miscellaneous Notes * Addendum Note - Lj Fam MD - 12/26/2017 11:00 AM CSTAddended by: LJ FAM on: 12/26/2017 12:28 PM Modules accepted: Orders AZZO FINISHER * Addendum Note - Jennifer Nielsen RN - 12/26/2017 11:00 AM CSTAddended by: JENNIFER NIELSEN on: 12/26/2017 01:03 PM Modules accepted: Orders AZZO FINISHER documented in this encounter Plan of Treatment Upcoming Encounters Date Type Department Care Team (Late st Contact Info) Description 02/01/2025 11:00 AM CDT Office Visit [facility] Oncology and Hematology - Jose [address] [facility] [address] [place] [address] Lj Fam MD [address] [facility] [address] [place] [address] Scheduled Referrals Name Type Priority Associated Diagnoses Orde r Schedule AMB REFERRAL TO GENERAL SURGERY Outpatient Referral Routine Malignant neoplasm of breast in female, estrogen receptor positive, unspecified laterality, unspecified site of breast Ordered: 12/26/2017 documented as of this encounter Results * CTA CHEST W WO CONTRAST (12/30/2017) Anatomical Region Laterality Modality Chest Other Lj Fam MD CT ORDERABLES documented in this encounter Visit Diagnoses Diagnosis Malignant neoplasm of breast in female, estrogen receptor positive, unspecified laterality, unspecified site of breast- Primary Hypercoagulable state Primary hypercoagulable state documented in this encounter Care Teams Photographic Hand Developer Relationship Specialty Start Date End Date Orestes Flores MD [address] [place] [address] PCP - General Internal Medicine 12/09/17 07/29/24 documented as of this encounter
--- OUTSIDE RECORDS SUMMARY | 2024-11-09 18:34 | XMS_ITS | Encounter Summary ---
Author Organization [facility] Address [address] [place] [address] Care Team Providers Care Power Generation Technician Name Role Phone Unavailable Primary Care Provider Unavailabl e Encounter Details Date Type Department Care Team (Late Contact Info) Description 06/03/2017 Orders Only [facility] Oncology and Hematology [facility] [address] [place] [address] Lj Fam MD [facility] [address] [place] [address] Malignant neoplasm of upper-outer quadrant of right female breast Social History Tobacco Use Types Packs/Day Years [...] Visit [facility] Oncology and [facility] [address] [place] [address] Lj Fam MD [address] [place] [address] documented as of this encounter Procedures Procedure Name Priority Date/Time Associated Diagnosis Comments MAMMO SCRN UNI LEFT W OR WO CAD Routine 06/03/2017 Malignant neoplasm of upper-outer quadrant of right female breast documented in this encounter Results * (ABNORMAL) MAMMO SCRN UNI LEFT W OR WO CAD (06/03/2017) Anatomical Region Laterality Modality Breast Left Other Lj Fam MD MAMMO ORDERABLES documented in this encounter Visit Diagnoses Diagnosis Malignant neoplasm of upper-outer quadrant of right female breast Malignant neoplasm of upper-outer quadrant of female breast documented in this encounter
--- OUTSIDE RECORDS SUMMARY | 2024-11-09 18:34 | XMS_ITS | Encounter Summary ---
Author Organization [facility] Address [address] [place] [address] Care Team Providers Care Sap Data Analyst Name Role Phone Orestes Flores MD Primary Care Provider [phone] Reason for Visit * Reason Comments Follow Up Results Encounter Details Date Type Department Care Team ([facility] st Contact Info) Description 10/28/2018 1:00 PM CROSSING TENDER Office Visit [facility] Oncology and Hematology [facility] [address] [place] [address] [address] [place] [address] Lj Fam MD [address] [facility] [address] [place] [address] Malignant neoplasm of upper-outer quadrant of right breast in female, estrogen receptor positive (Primary Dx); Use of aromatase inhibitors Social History Tobacco Use Types Packs/Day Years [...] Sign Reading Time Taken Comments Blood Pressure 127/87 10/28/2018 12:46 PM CROSSING TENDER Pulse 71 10/28/2018 12:46 PM CROSSING TENDER Temperature 36.7 ??C (98.1 ??F) 10/28/2018 12:[address] Respiratory Rate - - Oxygen Saturation 96% 10/28/2018 12:46 PM CROSSING TENDER Inhaled Oxygen Concentration - - Weight 88 kg (194 lb 1.6 oz) 10/28/2018 12:46 PM CROSSING TENDER Height 175.3 cm (5' 9 ) 10/28/2018 12:46 PM CROSSING TENDER Body Mass Index 28.66 10/28/2018 12:46 PM CROSSING TENDER documented in this encounter Progress Notes * Lj Fam MD - 10/28/2018 4:02 PM CST HEMATOLOGY / ONCOLOGY PROGRESS NOTE Patient Identification: Name: Damien Pulido Age: 68 y.o. Sex: female : 1950 Subjective: HPI [...] and lobular invasive c arcinoma moderately differentiated ER/AK positive HER-2/eleuterio negative Ki-67 less than 20%. [...] 13 2017. Bone density was performed in Fab2016. Patient received prolia injection on May 28, [...] night sweats; no anorexia; no weight loss; denies tiredness and fatigue Respiratory: Complain of shortness [...] muscle weakness; no confusion; no seizures Ext much improvement in right upper extremity swelling. Objective: Vital signs in last 24 hours: As per nursing note Exam: Gen: NAD Lungs: Clear Cardiac: S1 and S2 without murmurs or gallops Abd: Soft, tender, no hepatomegally, no masses Extr: Right upper extremity swelling Right chest wall showed no evidence of masses and lymphadenopathy, left breast showed no evidence of mass and lymphadenopathy. Improvement in right upper extremity swelling Scheduled Meds:[email or web address] Continuous Infusions:[email or web address]@ Data Review: [facility] Labs showed WBC 4.4 hemoglobin 11.6 platelet one 93,000 creatinine 0.8. Labs from May 27 showed WBC 4.3 hemoglobin 11.1 MCV 103.7 and platelet 186,000. Labs from August 27 showed WBC 3.9 hemoglobin 11.2 creatinine 0.7 platelet 192,000 potassium 4.1. Labs from November 26 showed WBC count 6.5 hemoglobin 10.9 platelet count 215 Labs from June 2017 showed WC 4.5 hemoglobin 12.1 platelet 231,000. From October 28 showed WBC 5.6 hemoglobin 12.6 platelet 202,000 Assessment: Plan: Patient Active Problem List Diagnosis Date Noted ??? Osteoporosis due to aromatase inhibitor 10/20/2018 ??? Screening for osteoporosis 12/21/2016 ??? 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 [...] on October 31, 2016. Patient had right-sided Simple mastectomy done on November 20, 2016 without attempt of axillary lymph node removal due to the fact that patient already had lymph node dissection previously and no lymphatic tissue could could be identified on her previous MRI.. Pathology report reviewed that showed positive superior and inferior margins. Patient completed radiation therapy in February 2017. Patient started Arimidex 1 mg daily in February 2017. I will discontinue Arimidex due to recent thrombosis. There is no evidence of relapse of disease on my examination. Mammogram donein June 2018 showed evidence of disease. After long discussion with decided to start her on hormonal therapy again with Femara 2.5 mg by mouth daily due to risk of relapse of disease. 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 Coumadin dosage has been regulated by her primary care physician. Bone health. Bone density testing showed osteopenia. Patient is on Aromatase inhibitor. Patient will continue vitamin D and calcium. She will continue prolia every 6 months basis. Chemotherapy-induced neuropathy. Patient will continue Neurontin 300 mg once a day.Neuropathy is stable. Anemia secondary to chemotherapy. Hemoglobin is stable. .10/28/2018 Lj Fam MD SING TENDER documented in this encounter Plan of Treatment Upcoming Encounters Date Type Department Care Team (Late st Contact Info) Description 02/01/2025 11:00 AM CDT Office Visit [facility] Oncology and Hematology - [place] [facility] [address] [place] [address] Lj Fam MD [address] [facility] [address] [place] [address] documented as of this encounter Visit Diagnoses Diagnosis Malignant neoplasm of upper-outer quadrant of right breast in female, estrogen receptor positive- Primary Use of aromatase inhibitors documented in this encounter Care Teams Sap Data Analyst Relationship Specialty Start Date End Date Orestes Flores MD [address] [place] [address] PCP - General Internal Medicine 12/09/17 07/29/24 documented as of this encounter
--- OUTSIDE RECORDS SUMMARY | 2024-11-09 18:34 | XMS_ITS | Encounter Summary ---
Author Organization [facility] Address [address] [place] [address] Care Team Providers Care Trademark Attorney Name Role Phone Orestes Flores MD Primary Care Provider [phone] Encounter Details Date Type Department Care Team ([facility] Contact Info) Description 05/18/2019 Orders Only [facility] Oncology and Hematology [place] [address] [place] [address] Lj Fam MD [address] [place] [address] [address] [place] [address] Malignant neoplasm of upper-outer quadrant of [...] Visit [facility] Oncology and Hematology [place] [address] [address] [place] [address] Lj Fam MD [address] [place] [address] [address] [place] [address] documented as of this encounter Procedures Procedure Name Priority Date/Time Associated Diagnosis Comments CANCER ANTIGEN 27-29 Routine 05/18/2019 Malignant neoplasm of upper-outer quadrant of right breast in female, estrogen receptor positive CBC WITH DIFFERENTIAL Routine 05/18/2019 Malignant neoplasm of upper-outer quadrant of right breast in female, estrogen receptor positive COMPREHENSIVE METABOLIC PANEL Routine 05/18/2019 Malignant neoplasm of upper-outer quadrant of right breast in female, estrogen receptor positive documented in this encounter Results * CANCER ANTIGEN 27-29 (05/18/2019) Blood Lj Fam MD CHEMISTRY ORDERABLES COM EXTERNAL LAB * COMPREHENSIVE METABOLIC PANEL (05/18/2019) Blood Lj Fam MD CHEMISTRY ORDERABLES Performing Organization Address City/[facility]/ZIP Co de Phone Number EXTERNAL LAB * (ABNORMAL) CBC WITH DIFFERENTIAL (05/18/2019) Blood Lj Fam MD HEMATOLOGY ORDERABLE S Performing Organization Address [facility] Co de Phone Number EXTERNAL LAB documented in this encounter Visit Diagnoses Diagnosis Malignant neoplasm of upper-outer quadrant of right breast in female, estrogen receptor positive documented in this encounter Care Teams Trademark Attorney Relationship Specialty Start Date End Date Orestes Flores MD [address] [place] [address] PCP - General Internal Medicine 12/09/17 07/29/24 documented as of this encounter
--- OUTSIDE RECORDS SUMMARY | 2024-11-09 18:34 | XMS_ITS | Encounter Summary ---
Author Organization [facility] [employer] [facility] Address [address] [place] [address] Care Team Providers Care Tandem Operator Name Role Phone Orestes Flores MD Primary Care Provider Encounter Details Date Type Department Care Team (Late Contact Info) Description 12/14/2020 Orders Only [facility] Oncology and Hematology [facility] [address] [place] [address] Lj Fam MD [facility] [employer] [address] [place] [address] Malignant neoplasm of upper-outer quadrant of [...] COVID-19? No / Unsure 12/01/2020 10:49 AM JAWBONE PULLER documented as of this encounter Plan of Treatment Upcoming Encounters Date Type Department Care Team (Late Contact Info) Description 02/01/2025 11:00 AM CDT Office Visit [facility] Oncology and Hematology - [place] [address] [place] [address] Lj Fam MD [address] [employer] [address] [place] [address] documented as of this encounter Visit Diagnoses Diagnosis Malignant neoplasm of upper-outer quadrant of right breast in female, estrogen receptor positive documented in this encounter Care Teams Tandem Operator Relationship Specialty Start Date End Date Orestes Flores MD [address] [place] [address] PCP - General Internal Medicine 12/09/17 07/29/24 documented as of this encounter
--- OUTSIDE RECORDS SUMMARY | 2024-11-09 18:34 | XMS_ITS | Encounter Summary ---
Author Organization [facility] Address [address] [place] [address] Care Team Providers Care Overlock Waistline Joiner Name Role Phone Orestes Flores MD Primary Care Provider [phone] Reason for Visit * Reason Comments Medication Refill Encounter Details Date Type Department Care Team ([facility] Contact Info) Description 12/18/2018 Refill [facility] Oncology and Hematology [place] [address] [place] [address] Lj Fam MD [address] [place] [address] [address] [place] [address] Social History Tobacco Use Types Packs/Day [...] Upcoming Encounters Date Type Department Care Team ([facility] Contact Info) Description 02/01/2025 11:00 AM CDT Office Visit [facility] Oncology and Hematology - [place] [address] [place] [address] Lj Fam MD [facility] [employer] [address] [place] [address] documented as of this encounter Visit Diagnoses Not on filedocumented in this encounter Care Teams Overlock Waistline Joiner Relationship Specialty Start Date End Date Orestes Flores MD [address] [place], [place] [phone] PCP - General Internal Medicine 12/09/17 07/29/24 documented as of this encounter
--- OUTSIDE RECORDS SUMMARY | 2024-11-09 18:34 | XMS_ITS | Encounter Summary ---
Author Organization [facility] Address [address] [place] [address] Care Team Providers Care Assessment Specialist Name Role Phone Unavailable Primary Care Provider Unavailabl e Encounter Details Date Type Department Care Team (Late Contact Info) Description 05/27/2017 Orders Only [facility] Oncology and Hematology [facility] [address] [place] [address] Jennifer Nielsen RN Hypercoagulable state; Malignant neoplasm of upper-outer quadrant of right [...] Visit [facility] Oncology [facility] [address] [place] [address] Lj Fam MD [address] [facility] [address] [place] [address] documented as of this encounter Procedures Procedure Name Priority Date/Time Associated Diagnosis Comments CBC WITH DIFFERENTIAL Routine 05/27/2017 Hypercoagulable state Malignant neoplasm of upper-outer quadrant of right female breast COMPREHENSIVE METABOLIC PANEL Routine 05/27/2017 Hypercoagulable state Malignant neoplasm of upper-outer quadrant of right female breast documented in this encounter Results * COMPREHENSIVE METABOLIC PANEL (05/27/2017) Blood specimen (specimen) Lj Fam MD CHEMISTRY ORDERABLES EXTERNAL LAB * CBC WITH DIFFERENTIAL (05/27/2017) Blood specimen (specimen) Lj Fam MD HEMATOLOGY ORDERABLE S Performing Organization Address City/[facility] Co de Phone Number EXTERNAL LAB documented in this encounter Visit Diagnoses Diagnosis Hypercoagulable state Primary hypercoagulable state Malignant neoplasm of upper-outer quadrant of right female breast Malignant neoplasm of upper-outer quadrant of female breast documented in this encounter
--- OUTSIDE RECORDS SUMMARY | 2024-11-09 18:34 | XMS_ITS | Encounter Summary ---
Author Organization [facility] Address [address] [place] [address] Care Team Providers Care Recreational Aide Name Role Phone Orestse Flores MD Primary Care Provider [phone] Reason for Referral * Outpatient Services (Routine) - Closed Specialty Diagnoses / Procedures Referred By Quinn cooper Referred To Contact Diagnoses Visit for screening mammogram Procedures MAMMO SCRN UNI LEFT W OR WO CAD Lj Fam MD [address] [place] [address] [place] [address] Referral ID Status Reason Start Date Expiration Date V isits Requested Visits Authorized [id number] Closed [facility] CTS 12/01/2020 01/01/2022 1 1 ACE AND WASH EQUIPMENT OPERATOR Reason for Visit * Reason Comments Follow Up 6 month f/u labs Encounter Details Date Type Department Care Team (Late st Contact Info) Description 12/01/2020 11:15 AM FURNACE AND WASH EQUIPMENT OPERATOR Office Visit [facility] Oncology and Hematology [address] [place] [address] Lj Fam MD [address] [place] [address] Malignant neoplasm of upper-outer quadrant of right breast in female, estrogen receptor positive (Primary Dx); Visit for screening mammogram Social History Tobacco [...] COVID-19? No / Unsure 12/01/2020 10:49 AM FURNACE AND WASH EQUIPMENT OPERATOR documented as of this encounter Last Filed Vital Signs Vital Sign Reading Time Taken Comments Blood Pressure 127/86 12/01/2020 11:11 AM FURNACE AND WASH EQUIPMENT OPERATOR Pulse 83 12/01/2020 11:11 AM FURNACE AND WASH EQUIPMENT OPERATOR Temperature 36.8 ??C (98.2 ??F) 12/01/2020 11:[address] Respiratory Rate - - Oxygen Saturation 93% 12/01/2020 11:11 AM FURNACE AND WASH EQUIPMENT OPERATOR Inhaled Oxygen Concentration - - Weight 90.3 kg (199 lb) 12/01/2020 11:11 AM FURNACE AND WASH EQUIPMENT OPERATOR Height 175.3 cm (5' 9 ) 12/01/2020 11:11 AM FURNACE AND WASH EQUIPMENT OPERATOR Body Mass Index 29.39 12/01/2020 11:11 AM FURNACE AND WASH EQUIPMENT OPERATOR documented in this encounter Progress Notes * Lj Fam MD - 12/01/2020 12:25 PM CST HEMATOLOGY / ONCOLOGY PROGRESS NOTE Patient Identification: Name: Damien Pulido Age: 70 y.o. Sex: female : 1950 DIAGNOSIS T4 [...] Patient came into the office for follow-up visit. He denies any chest pain and shortness of breath.Denies any new lumps of the lymphadenopathy. Weight and appetite stable. No other new [...] focal deficit Right chest wall no masses or lymphadenopathy. Left breast no masses or lymphadenopathy. Examination as above [facility] Labs from November 19, 2019 showed WBC 6.7 hemoglobin 11.6 platelet 216,000 creatinine 0.8 total bilirubin 0.2 AST 50 ALT 62 CA-27-29 was 10. Labs from May 19 showed hemoglobin 11.7 creatinine 0.8 total bilirubin 0.4 AST 27 ALT 21 total bilirubin 0.4 CA-27-29 17 @IMAGEIMP@ Assessment: Plan: Patient Active Problem List Diagnosis Date Noted ??? Osteoporosis due to aromatase inhibitor 10/20/2018 ??? Screening for osteoporosis 12/21/2016 ??? 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 Diagnosed in June 2016. Labs reviewed and stable. There is no evidence of relapse of disease on my examination. She will continue Femara which she has been tolerating it well. Left breast screening mammogram will be done inA2020. I will see her back in 6 months. Osteopenia. Patient will continue Prolia on every 6 months basis. History of DVT. Patient is on Coumadin. Anemia. Hemoglobin is stable. Elevated liver enzymes secondary to Agu[place]. Chemistries stable. Follow-up in 6 months. TOBACCO COUNSELING She is not a tobacco user. 12/01/2020 Lj Fam MD ACE AND WASH EQUIPMENT OPERATOR documented in this encounter Plan of Treatment Upcoming Encounters Date Type Department Care Team (Late st Contact Info) Description 02/01/2025 11:00 AM CDT Office Visit [facility] Oncology and Hematology [facility] [address] [facility] [address] [place] [address] Lj Fam MD [address] [facility] [address] [place] [address] Scheduled Orders Name Type Priority Associated Diagnoses Orde r Schedule CANCER ANTIGEN 15-3 Lab Routine Malignant neoplasm of upper-outer quadrant of right breast in female, estrogen receptor positive Expected: 06/01/2021, Expires: 12/01/2021 CBC WITH DIFFERENTIAL Lab Routine Malignant neoplasm of upper-outer quadrant of right breast in female, estrogen receptor positive Expected: 06/01/2021, Expires: 12/01/2021 COMPREHENSIVE METABOLIC PANEL Lab Routine Malignant neoplasm of upper-outer quadrant of right breast in female, estrogen receptor positive Expected: 06/01/2021, Expires: 12/01/2021 documented as of this encounter Results * MAMMO SCRN UNI LEFT W OR WO CAD (06/29/2021) Anatomical Region Laterality Modality Breast Left Other Lj Fam MD MAMMO ORDERABLES documented in this encounter Visit Diagnoses Diagnosis Malignant neoplasm of upper-outer quadrant of right breast in female, estrogen receptor positive- Primary Visit for screening mammogram Other screening mammogram documented in this encounter Care Teams Recreational Aide Relationship Specialty Start Date End Date Orestes Flores MD [address] [place] [address] PCP - General Internal Medicine 12/09/17 07/29/24 documented as of this encounter
--- OUTSIDE RECORDS SUMMARY | 2024-11-09 18:34 | XMS_ITS | Encounter Summary ---
Author Organization [facility] Address [address] [place] [address] Care Team Providers Care Water Truck Driver Name Role Phone Orestes Flores MD Primary Care Provider [phone] Reason for Referral * Outpatient Services (Routine) - Closed Specialty Diagnoses / Procedures Referred By Quinn t Referred To Contact Diagnoses Malignant neoplasm of upper-outer quadrant of right breast in female, estrogen receptor positive Procedures MAMMO SCRN UNI LEFT W OR WO CAD Lj Fam MD [address] [place] [address] [place] [address] [address] [place] [address] Referral ID Status Reason Start Date Expiration Date Visits Requested Visits Authorized [id number] Closed Ordering Department To Schedule 04/01/2018 05/02/2019 1 1 Reason for Visit * Reason Comments Follow Up Labs Encounter Details Date Type Department Care Team (Late st Contact Info) Description 04/01/2018 3:00 PM CDT Office Visit [facility] Oncology and Hematology - [address] [facility] [address] [place] [address] Lj Fam MD [address] [place] [address] Malignant neoplasm of upper-outer quadrant [...] Sign Reading Time Taken Comments Blood Pressure 132/84 04/01/2018 2:50 PM CDT Pulse 90 04/01/2018 2:50 PM CDT Temperature 37.1 ??C (98.8 ??F) 04/01/2018 2:50 PM CD T Respiratory Rate 18 04/01/2018 2:50 PM CDT Oxygen Saturation 93% 04/01/2018 2:50 PM CDT Inhaled Oxygen Concentration - - Weight 88.5 kg (195 lb) 04/01/2018 2:50 PM CDT Height 175.3 cm (5' 9 ) 04/01/2018 2:50 PM CDT Body Mass Index 28.8 04/01/2018 2:50 PM CDT documented in this encounter Progress Notes * Lj Fam MD - 04/01/2018 3:42 PM CDT HEMATOLOGY / ONCOLOGY PROGRESS NOTE [...] and lobular invasive c arcinoma moderately differentiated ER/ME positive HER-2/eleuterio negative Ki-67 less than 20%. [...] 13 2017. Bone density was performed in [facility]2016. Patient received prolia injection on [...] muscle weakness; no confusion; no seizures Ext patient is still a persistent right upper extremity swelling with some rash in bilateral elbow region. Facial swelling has improved. Objective: Vital signs in last 24 hours: As per nursing note Exam: Gen: NAD Lungs: Clear Cardiac: S1 and S2 without murmurs or gallops Abd: Soft, tender, no hepatomegally, no masses Extr: Right upper extremity swelling Right chest wall showed no evidence of masses and lymphadenopathy, left breast showed no evidence of mass and lymphadenopathy. Persistent right upper extremity edema with rash. Improved facial swelling. Scheduled Meds:[email or web address] Continuous Infusions:[email or web address]@ Data Review: [facility] Labs showed WBC 4.4 hemoglobin 11.6 platelet one 93,000 creatinine 0.8. Labs from May 27 showed WBC 4.3 hemoglobin 11.1 MCV 103.7 and platelet 186,000. Labs from August 27 showed WBC 3.9 hemoglobin 11.2 creatinine 0.7 platelet 192,000 potassium 4.1. Labs from November 26 showed WBC count 6.5 hemoglobin 10.9 platelet count 215 Labs from January 27 showed WC 4.6 hemoglobin 11.1 platelet 232,000 creatinine 0.7. Assessment: Plan: Patient Active Problem List Diagnosis Date Noted ??? Screening for osteoporosis 12/21/2016 ??? 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 Acquired hypothyroidism 08/27/2016 Mixed ductal and lobular invasive carcinoma moderately differentiated T4, N0, M0 stage IIIB disease, status post ultrasound-guided core biopsy on June 26, 2016, ER/ME positive HER-2/eleuterio negative Ki-67 less than 20%. [...] 08, 2017 showed fibroadenomatosis calcification. Routine mammography will be done in June 2018. 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 I have discussed this with patient primary care physician and then onto has been discontinued. Patient has been started on Coumadin. Coumadin dosage has been regulated by her primary care physician. Patient is also going to see vascular surgery. Bone health. Bone density testing showed osteopenia. Patient will continue vitamin D and calcium. She will continue prolia every 6 months basis. Chemotherapy-induced neuropathy. Patient will continue Neurontin 300 mg once a day. Anemia secondary to chemotherapy. Vitamin B12 came back normal at 843. Iron was normal at 43. I will repeat CBC in 3 months.. Itching and bilateral lower extremity. Continue Benadryl as needed. I ordered clobetasol cream. Patient is going to see dermatology as well. Hypersensitivity reaction with facial swelling. Patient is on Synthroid . .04/01/2018 Lj Fam MD documented in this encounter Miscellaneous Notes * Addendum Note - Bia Moreau PCT - 04/01/2018 3:00 PM CDTAddended by: BIA MOREAU on: 04/01/2018 03:54 PM Modules accepted: Orders documented in this encounter Plan of Treatment Upcoming Encounters Date Type Department Care Team (Late st Contact Info) Description 02/01/2025 11:00 AM CDT Office Visit [facility] Oncology and Hematology - [place] [address] [place] [address] [address] [place] [address] Lj Fam MD [address] [facility] [address] [place] [address] documented as of this encounter Results * CANCER ANTIGEN 15-3 (07/15/2018) Blood Lj Fam MD CHEMISTRY ORDERABLES EXTERNAL LAB * COMPREHENSIVE METABOLIC PANEL (07/08/2018) Blood Lj Fam MD CHEMISTRY ORDERABLES EXTERNAL LAB * CBC WITH DIFFERENTIAL (07/07/2018) Blood Lj Fam MD HEMATOLOGY ORDERABLE S Performing Organization Address City/[facility]/ZIP Co de Phone Number EXTERNAL LAB * MAMMO SCRN UNI LEFT W OR WO CAD (06/17/2018) Anatomical Region Laterality Modality Breast Left Other Lj Fam MD MAMMO ORDERABLES documented in this encounter Visit Diagnoses Diagnosis Malignant neoplasm of upper-outer quadrant of right breast in female, estrogen receptor positive- Primary documented in this encounter Care Teams Water Truck Driver Relationship Specialty Start Date End Date Orestes Flores MD [address] [place] [address] PCP - General Internal Medicine 12/09/17 07/29/24 documented as of this encounter
--- OUTSIDE RECORDS SUMMARY | 2024-11-09 18:34 | XMS_ITS | Encounter Summary ---
Author Organization [facility] Address [address] [place] [address] Care Team Providers Care Damper Maker Name Role Phone Orestes Flores MD Primary Care Provider [phone] Reason for Visit * Reason Onset Date Comments Referral 12/30/2018 pt going to podi atrist for neuropathy Encounter Details Date Type Department Care Team (Late Contact Info) Description 12/30/2018 Telephone [facility] Oncology and Hematology - [place] [address] [place] [address] [facility] [address] [place] [address] Lj Fam MD [address] [facility] [address] [place] [address] Referral (pt going to chief guard for neuropathy) Social History Tobacco Use Types Packs/Day Years [...] Telephone Encounter - Jennifer Nielsen RN - 12/30/2018 10:57 AM CST Pt called to check with Dr. Fam if she see chief guard for neuropathy, approved by Dr. Fam. Ptnotified. Jennifer Nielsen RN DEVELOPER documented in this encounter Plan of Treatment Upcoming Encounters Date Type Department Care Team (Late Contact Info) Description 02/01/2025 11:00 AM CDT Office Visit [facility] Oncology and Hematology - [place] [address] [facility] [address] [place] [address] Lj Fam MD [address] [facility] [address] [place] [address] documented as of this encounter Visit Diagnoses Not on filedocumented in this encounter Care Teams Damper Maker Relationship Specialty Start Date End Date Orestes Flores MD [address] [place] [address] PCP - General Internal Medicine 12/09/17 07/29/24 documented as of this encounter
--- OUTSIDE RECORDS SUMMARY | 2024-11-09 18:34 | XMS_ITS | Encounter Summary ---
Author Organization [facility] Address [address] [place] [address] Care Team Providers Care Pet Adoption Counselor Name Role Phone Orestes Flores MD Primary Care Provider [phone] Reason for Visit * Reason Onset Date Comments Results 12/10/2017 Encounter Details Date Type Department Care Team ([facility] st Contact Info) Description 12/10/2017 Telephone [facility] Oncology and Hematology - [place] [address] [place] [address] [facility] [address] [place] [address] Lj Fam MD [address] [facility] [address] [place] [address] Results Social History Tobacco Use Types Packs/Day Years [...] Telephone Encounter - Jennifer Nielsen RN - 12/10/2017 11:07 AM CST Pt called back, informed of abnormal thyroid function lab results per Dr. Fam. Pt has appt with her PCP this am, results of TSH and free T4 faxed to Dr. Byrd office, fax [phone], message leftwith Mary at office to conform if fax received, ph# [phone]. Jennifer Nielsen RN [place] documented in this encounter Plan of Treatment Upcoming Encounters Date Type Department Care Team (Late st Contact Info) Description 02/01/2025 11:00 AM CDT Office Visit [facility] Oncology and Hematology - [place] [address] [facility] [address] [place] [address] Lj Fam MD [address] [facility] [address] [place] [address] documented as of this encounter Visit Diagnoses Not on filedocumented in this encounter Care Teams Pet Adoption Counselor Relationship Specialty Start Date End Date Orestes Flores MD [address] [place] [address] PCP - General Internal Medicine 12/09/17 07/29/24 documented as of this encounter
--- OUTSIDE RECORDS SUMMARY | 2024-11-09 18:34 | XMS_ITS | Encounter Summary ---
Author Organization [facility] Address [address] [place] [address] Care Team Providers Care Weave Room Supervisor Name Role Phone Unavailable Primary Care Provider Unavailabl e Reason for Visit * Reason Comments Medication Refill Encounter Details Date Type Department Care Team (Late Contact Info) Description 09/23/2017 Refill [facility] Oncology and Hematology [facility] [address] [facility] [address] [place] [address] Lj Fam MD [address] [facility] [address] [place] [address] Social History Tobacco Use Types Packs/Day [...] Telephone Encounter - Jennifer Nielsen RN - 09/23/2017 9:11 AM CST rx refill approved. Jennifer Nielsen RN GER CARGO documented in this encounter Plan of Treatment Upcoming Encounters Date Type Department Care Team (Late Contact Info) Description 02/01/2025 11:00 AM CDT Office Visit [facility] Oncology and Hematology [facility] [address] [facility] [address] [place] [address] Lj Fam MD [address] [facility] [employer] [address] [place] [address] documented as of this encounter Visit Diagnoses Not on filedocumented in this encounter
--- OUTSIDE RECORDS SUMMARY | 2024-11-09 18:34 | XMS_ITS | Encounter Summary ---
Author Organization [facility] Address [address] [place] [address] Care Team Providers Care Roving Inspector Name Role Phone Orestes Flores MD Primary Care Provider [phone] Encounter Details Date Type Department Care Team (Late Contact Info) Description 01/27/[address] [facility] Oncology and [facility] [address] [place] [address] Jennifer Nielsen RN Malignant neoplasm of breast in female, estrogen receptor positive, unspecified laterality, unspecified site of breast Social History Tobacco Use Types Packs/Day [...] Office Visit [facility] Oncology [facility] [address] [place] [address] Lj Fam MD [address] [facility] [address] [place] [address] documented as of this encounter Procedures Procedure Name Priority Date/Time Associated Diagnosis Comments CANCER ANTIGEN 15-3 Routine 01/30/2018 Malignant neoplasm of breast in female, estrogen receptor positive, unspecified laterality, unspecified site of breast CBC WITH DIFFERENTIAL Routine 01/28/2018 Malignant neoplasm of breast in female, estrogen receptor positive, unspecified laterality, unspecified site of breast COMPREHENSIVE METABOLIC PANEL Routine 01/28/2018 Malignant neoplasm of breast in female, estrogen receptor positive, unspecified laterality, unspecified site of breast documented in this encounter Results * CANCER ANTIGEN 15-3 (01/30/2018) Blood Lj Fam MD CHEMISTRY ORDERABLES Performing Organization Address City/[facility]/ZIP Co de Phone Number EXTERNAL LAB * (ABNORMAL) CBC WITH DIFFERENTIAL (01/28/2018) Blood Lj Fam MD HEMATOLOGY ORDERABLE S Performing Organization Address City/[facility]/ZIP Co de Phone Number EXTERNAL LAB * (ABNORMAL) COMPREHENSIVE METABOLIC PANEL (01/28/2018) Blood Lj Fam MD CHEMISTRY ORDERABLES Performing Organization Address City/[facility] Co de Phone Number EXTERNAL LAB documented in this encounter Visit Diagnoses Diagnosis Malignant neoplasm of breast in female, estrogen receptor positive, unspecified laterality, unspecified site of breast documented in this encounter Care Teams Roving Inspector Relationship Specialty Start Date End Date Orestes Flores MD [address] [place] [address] PCP - General Internal Medicine 12/09/17 07/29/24 documented as of this encounter
--- OUTSIDE RECORDS SUMMARY | 2024-11-09 18:34 | XMS_ITS | Encounter Summary ---
Author [facility] Address [address] [place] [address] Care Team Providers Care Medical Sales Consultant Name Role Phone Orestes Flores MD Primary Care Provider [phone] Reason for Referral * Radiology Services (Routine) - Closed Specialty Diagnoses / Procedures Referred By Quinn t Referred To Contact Diagnoses Osteoporosis due to aromatase inhibitor Procedures XR DEXA BONE DENSITY AXIAL 1 OR MORE SITES Lj Fam MD [address] [place] [address] [place] [address] Referral ID Status Reason Start Date Expiration Date V isits Requested Visits Authorized [id number] Closed [facility] CTS 05/29/2021 06/29/2022 1 1 Encounter Details Date Type Department Care Team (Late st Contact Info) Description 05/29/2021 Orders Only [facility] Oncology and Hematology [facility] [address] [facility] [address] [place] [address] Lj Fam MD [address] [place] [address] Osteoporosis due to aromatase inhibitor (Primary Dx) Social History Tobacco Use Types [...] [facility] Oncology and Hematology - [place] [address] [facility] [address] [place] [address] Lj Fam MD [address] [facility] [address] [place] [address] documented as of this encounter Results * XR DEXA BONE DENSITY AXIAL 1 OR MORE SITES (07/13/2021) Anatomical Region Laterality Modality Other Lj Fam MD DIAGNOSTIC IMAGING O RDERABLES documented in this encounter Visit Diagnoses Diagnosis Osteoporosis due to aromatase inhibitor- Primary Other osteoporosis documented in this encounter Care Teams Medical Sales Consultant Relationship Specialty Start Date End Date Orestes Flores MD [address] [place] [address] PCP - General Internal Medicine 12/09/17 07/29/24 documented as of this encounter
--- OUTSIDE RECORDS SUMMARY | 2024-11-09 18:34 | XMS_ITS | Encounter Summary ---
Author Organization [facility] Address [address] [place] [address] Care Team Providers Care Orthodontist Name Role Phone Orestes Flores MD Primary Care Provider Reason for Visit * Reason Comments Follow Up Results Encounter Details Date Type Department Care Team ([facility] st Contact Info) Description 07/07/2018 2:45 PM CDT Office Visit [facility] Oncology and Hematology [facility] [address] [place] [facility] [address] [place] [address] Lj Fam MD [address] [facility] [address] [place] [address] Malignant neoplasm of upper-outer quadrant of right breast in female, estrogen receptor positive (Primary Dx); Osteoporosis due to aromatase inhibitor Social History [...] Sign Reading Time Taken Comments Blood Pressure 120/80 07/07/2018 2:52 PM CDT Pulse 76 07/07/2018 2:52 PM CDT Temperature 36.9 ??C (98.4 ??F) 07/07/2018 2:52 PM CD T Respiratory Rate - - Oxygen Saturation 95% 07/07/2018 2:52 PM CDT Inhaled Oxygen Concentration - - Weight 86.9 kg (191 lb 9.6 oz) 07/07/2018 2:52 P M CDT Height 175.3 cm (5' 9 ) 07/07/2018 2:52 PM CDT Body Mass Index 28.29 07/07/2018 2:52 PM CDT documented in this encounter Progress Notes * Lj Fam MD - 07/07/2018 3:43 PM CDT HEMATOLOGY / ONCOLOGY PROGRESS NOTE [...] and lobular invasive c arcinoma moderately differentiated ER/KS positive HER-2/eleuterio negative Ki-67 less than 20%. [...] 13 2017. Bone density was performed in [facility]2016. Patient received prolia injection on May [...] showed WC 4.5 hemoglobin 12.1 platelet 231,000. Assessment: Plan: Patient Active Problem List Diagnosis Date Noted ??? Screening for osteoporosis 12/21/2016 ??? 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 [...] on July 08, 2017 showed fibroadenomatosis calcification. Mammogram done in June 2018 showedevidence of disease. Hypercoagulable state with extensive DVT involving superior [...] a day.Neuropathy is stable. Anemia secondary to chemotherapyHemoglobin is stable. .07/07/2018 Lj Fam MD documented in this encounter Plan of Treatment Upcoming Encounters Date Type Department Care Team (Late st Contact Info) Description 02/01/2025 11:00 AM CDT Office Visit [facility] Oncology and Hematology - [place] [address] [facility] [address] [place] [address] Lj Fam MD [address] [facility] [address] [place] [address] documented as of this encounter Results * COMPREHENSIVE METABOLIC PANEL (10/28/2018) Blood Lj Fam MD CHEMISTRY ORDERABLES EXTERNAL LAB * CBC WITH DIFFERENTIAL (10/28/2018) Blood Lj Fam MD HEMATOLOGY ORDERABLE S EXTERNAL LAB * CANCER ANTIGEN 27-29 (10/28/2018) Blood Lj Fam MD CHEMISTRY ORDERABLES COM Performing Organization Address City/[facility]/ZIP Co de Phone Number EXTERNAL LAB documented in this encounter Visit Diagnoses Diagnosis Malignant neoplasm of upper-outer quadrant of right breast in female, estrogen receptor positive- Primary Osteoporosis due to aromatase inhibitor Other osteoporosis documented in this encounter Care Teams Orthodontist Relationship Specialty Start Date End Date Orestes Flores MD [address] [place] [phone] PCP - General Internal Medicine 12/09/17 07/29/24 documented as of this encounter
--- OUTSIDE RECORDS SUMMARY | 2024-11-09 18:34 | XMS_ITS | Encounter Summary ---
Author Organization [facility] Address [address] [facility] Attn: Epic Prelude ADT [place] [address] Care Team Providers Care Spindle Tester Name Role Phone Orestes Flores MD Primary Care Provider [phone] Encounter Details Date Type Department Care Team (Latest Contact Info) Description 05/26/2020 Travel Social History Tobacco Use Types Packs/Day [...] have Coronavirus / COVID-19? No / Unsure 05/26/2020 12:53 PM CDT documented as of this encounter Plan of Treatment Upcoming Encounters Date Type Department Care Team (Late st Contact Info) Description 02/01/2025 11:00 AM CDT Office Visit [facility] Oncology and Hematology - [place] [address] [facility] [address] [place] [address] Lj Fam MD [address] [facility] [address] [place] [address] documented as of this encounter Visit Diagnoses Not on filedocumented in this encounter Care Teams Spindle Tester Relationship Specialty Start Date End Date Orestes Flores MD [facility] [place] [address] PCP - General Internal Medicine 1/29/18 9/18/24 documented as of this encounter
--- OUTSIDE RECORDS SUMMARY | 2024-11-09 18:34 | XMS_ITS | Encounter Summary ---
Author Organization [facility] Address [address] [place] [address] Care Team Providers Care Reed Man Name Role Phone Unavailable Primary Care Provider Unavailabl e Reason for Visit * Reason Comments Follow Up Patient is here for a follow up. She said she is being treated for a ear infection and bronchitis. She has 3 days left of her antibiotic and has completed her steroid. She states she gets out of breath really easy but is okay after she sits for a minute. She went to the urgent care for this on 11/25/2017.kkrma Encounter Details Date Type Department Care Team (Late st Contact Info) Description 11/26/2017 9:30 AM SEAL SKINNER Office Visit [facility] Oncology and Hematology - [address] [address] [place] [address] [place] [address] [address] [place] [address] Malignant neoplasm of upper-outer quadrant [...] Sign Reading Time Taken Comments Blood Pressure 104/63 11/26/2017 9:37 AM SEAL SKINNER Pulse 120 11/26/2017 9:37 AM SEAL SKINNER Temperature 36.8 ??C (98.2 ??F) 11/26/2017 9:37 AM CS T Respiratory Rate - - Oxygen Saturation - - Inhaled Oxygen Concentration - - Weight 80.7 kg (177 lb 14.4 oz) 11/26/2017 9:37 AM SEAL SKINNER Height 175.3 cm (5' 9 ) 11/26/2017 9:37 AM SEAL SKINNER Body Mass Index 26.27 11/26/2017 9:37 AM SEAL SKINNER documented in this encounter Progress Notes * Lj Fam MD - 11/26/2017 10:21 AM CST HEMATOLOGY / ONCOLOGY PROGRESS NOTE [...] and lobular invasive c arcinoma moderately differentiated ER/[place] positive HER-2/eleuterio negative Ki-67 less than 20%. [...] 13 2017. Bone density was performed in [facility]2016. Patient received prolia injection [...] lower extremity showed scratches secondary to itching without any edema Objective: Vital signs in last 24 [...] ultrasound-guided core biopsy on June 26, 2016, ER/[place] positive HER-2/eleuterio negative Ki-67 less than 20%. MRI breast done July 04, 2016 and showed 5.6 x 5.1 cm mass in the central mid portion of the right breast. ? PET scan done on July 11, 2016 came back negative for metastatic disease. Patient prior to that has history of localized right-sided breast cancer in 1994 status post lumpectomy and adjuvant radiation therapy. [...] months basis. Chemotherapy-induced neuropathy. Patient will continue Neurontin. Anemia secondary to chemotherapy. Hemoglobin is 10.9 today. Other labs including iron and B12 studies are pending. Her shortness of breath is likely secondary to anemia. Shortness of breath. Chest x-ray was performed yesterday that showed hyperinflation consistent withCOPD. There was no evidence of pneumonia and pleural effusion. Likely shortness of breath is due toCOPD and anemia. Itching and bilateral lower extremity. Patient is going to discuss with her primary care physician regarding consultation with dermatology. I will start her on Atarax for itching. 11/26/2017 Lj Fam MD SKINNER documented in this encounter Plan of Treatment Upcoming Encounters Date Type Department Care Team (Late st Contact Info) Description 02/01/2025 11:00 AM CDT Office Visit [facility] Oncology and Hematology [facility] [address] [facility] [address] [place] [address] Lj Fam MD [address] [facility] [address] [place] [address] documented as of this encounter Results * CANCER ANTIGEN 15-3 (04/04/2018) Blood Lj Fam MD CHEMISTRY ORDERABLES EXTERNAL LAB * (ABNORMAL) IRON, TIBC, AND PERCENT SATURATION (04/02/2018) Blood Lj Fam MD CHEMISTRY ORDERABLES Performing Organization Address [facility]/ZIP Co de Phone Number EXTERNAL LAB * COMPREHENSIVE METABOLIC PANEL (04/02/2018) Blood Lj Fam MD CHEMISTRY ORDERABLES Performing Organization Address [facility] Co de Phone Number EXTERNAL LAB * CBC WITH DIFFERENTIAL (04/01/2018) Blood Lj Fam MD HEMATOLOGY ORDERABLE S Performing Organization Address [facility] Co de Phone Number EXTERNAL LAB documented in this encounter Visit Diagnoses Diagnosis Malignant neoplasm of upper-outer quadrant of right breast in female, estrogen receptor positive- Primary documented in this encounter
--- OUTSIDE RECORDS SUMMARY | 2024-11-09 18:34 | XMS_ITS | Encounter Summary ---
Author Organization [facility] Address [address] [place] [address] Care Team Providers Care Facility Administrator Name Role Phone Orestes Flores MD Primary Care Provider [phone] Encounter Details Date Type Department Care Team (Late Contact Info) Description 06/29/2019 Orders Only [facility] Oncology and Hematology [place] [address] [address] [place] [address] Lj Fam MD [address] [place] [address] [employer] [address] [address] Visit for screening mammogram Social History Tobacco [...] Upcoming Encounters Date Type Department Care Team ([facility] Contact Info) Description 02/01/2025 11:00 AM CDT Office Visit [facility] Oncology and Hematology [address] [place] [address] Lj Fam MD [address] [place] [address] [employer] [address] [address] documented as of this encounter Procedures Procedure Name Priority Date/Time Associated Diagnosis Comments MAMMO SCRN UNI LEFT W OR WO CAD Routine 06/26/2019 Visit for screening mammogram documented in this encounter Results * MAMMO SCRN UNI LEFT W OR WO CAD (06/26/2019) Anatomical Region Laterality Modality Breast Left Other Lj Fam MD MAMMO ORDERABLES documented in this encounter Visit Diagnoses Diagnosis Visit for screening mammogram Other screening mammogram documented in this encounter Care Teams Facility Administrator Relationship Specialty Start Date End Date Orestes Flores MD [address] [place] [address] PCP - General Internal Medicine 12/09/17 07/29/24 documented as of this encounter
--- OUTSIDE RECORDS SUMMARY | 2024-11-09 18:34 | XMS_ITS | Encounter Summary ---
Author Organization [facility] Address [address] [place] [address] Care Team Providers Care Truck Caterer Name Role Phone Orestes Flores MD Primary Care Provider [phone] Reason for Visit * Reason Comments Medication Refill Encounter Details Date Type Department Care Team ([facility] Contact Info) Description 06/23/2018 Refill [facility] Oncology and Hematology [place] [address] [place] [address] Lj Fam MD [address] [place] [address] Social History Tobacco Use Types [...] Telephone Encounter - Jennifer Nielsen RN - 06/24/2018 9:10 AM CDT rx refill ordered. Jennifer Nielsen RN documented in this encounter Plan of Treatment Upcoming Encounters Date Type Department Care Team (Late Contact Info) Description 02/01/2025 11:00 AM CDT Office Visit [facility] Oncology and Hematology [place] [address] [place] [address] Lj Fam MD [address] [address] documented as of this encounter Visit Diagnoses Not on filedocumented in this encounter Care Teams Truck Caterer Relationship Specialty Start Date End Date Orestes Flores MD [address] [place] [address] PCP - General Internal Medicine 12/09/17 07/29/24 documented as of this encounter
--- OUTSIDE RECORDS SUMMARY | 2024-11-09 18:34 | XMS_ITS | Encounter Summary ---
Author Organization [facility] Address [address] [place] [address] Care Team Providers Care Plug Wirer Name Role Phone Unavailable Primary Care Provider Unavailabl e Encounter Details Date Type Department Care Team (Late st Contact Info) Description 08/27/2017 Orders Only [facility] Oncology and Hematology [facility] [address] [place] [id number] Jennifer Nielsen RN Malignant neoplasm of upper-outer quadrant of right [...] Description 02/01/2025 11:00 AM CDT Office Visit [facility] Oncology [facility] [address] [place] [address] Lj Fam MD [address] [facility] [address] [place] [address] documented as of this encounter Procedures Procedure Name Priority Date/Time Associated Diagnosis Comments CBC WITH DIFFERENTIAL Routine 08/27/2017 Malignant neoplasm of upper-outer quadrant of right female breast BASIC METABOLIC PANEL Routine 08/27/2017 Malignant neoplasm of upper-outer quadrant of right female breast documented in this encounter Results * BASIC METABOLIC PANEL (08/27/2017) Blood Lj Fam MD CHEMISTRY ORDERABLES EXTERNAL LAB * CBC WITH DIFFERENTIAL (08/27/2017) Blood Lj Fam MD HEMATOLOGY ORDERABLE S EXTERNAL LAB documented in this encounter Visit Diagnoses Diagnosis Malignant neoplasm of upper-outer quadrant of right female breast Malignant neoplasm of upper-outer quadrant of female breast documented in this encounter
--- OUTSIDE RECORDS SUMMARY | 2024-11-09 18:34 | XMS_ITS | Encounter Summary ---
Author Organization [facility] Address [address] [place] [address] Care Team Providers Care Biology Department Chair Name Role Phone Orestes Flores MD Primary Care Provider [phone] Reason for Visit * Reason Comments Medication Refill Encounter Details Date Type Department Care Team ([facility] Contact Info) Description 10/27/2019 Refill [facility] Oncology and Hematology [place] [address] [place] [address] Lj Fam MD [address] [place] [address] [employer] [address] [place] [address] Social History Tobacco Use Types Packs/Day [...] Upcoming Encounters Date Type Department Care Team ([facility] Contact Info) Description 02/01/2025 11:00 AM CDT Office Visit [facility] Oncology and Hematology - [place] [address] [place] [address] Lj Fam MD [facility] [employer] [address] [place] [address] documented as of this encounter Visit Diagnoses Not on filedocumented in this encounter Care Teams Biology Department Chair Relationship Specialty Start Date End Date Orestes Flores MD [address] [place], [place] [phone] PCP - General Internal Medicine 12/09/17 07/29/24 documented as of this encounter
--- OUTSIDE RECORDS SUMMARY | 2024-11-09 18:34 | XMS_ITS | Encounter Summary ---
Author Organization [facility] Address [address] [place] [address] Care Team Providers Care Utility Assembler Name Role Phone Orestes Flores MD Primary Care Provider [phone] Reason for Visit * Reason Onset Date Comments Facial Swelling 12/26/2017 Encounter Details Date Type Department Care Team (Late Contact Info) Description 12/26/2017 Telephone [facility] Oncology and Hematology - [place] [address] [facility] [address] [place] [address] Lj Fam MD [address] [facility] [address] [place] [address] Facial Swelling Social History Tobacco Use Types Packs/Day Years [...] Telephone Encounter - Jennifer Nielsen RN - 12/26/2017 8:39 AM CST Pt called in reporting that past week she has had facial swelling and hand swelling. Now her righ arm is also swollen. Previously she had been on prednisone from PCP but PCP is out of country til 3-5-18. Scheduled for OV 11am. Jennifer Nielsen RN SCHOOL BAND TEACHER documented in this encounter Plan of Treatment Upcoming Encounters Date Type Department Care Team (Late Contact Info) Description 02/01/2025 11:00 AM CDT Office Visit [facility] Oncology and Hematology - [place] [address] [facility] [address] [place] [address] Lj Fam MD [address] [facility] [address] [place] [address] documented as of this encounter Visit Diagnoses Not on filedocumented in this encounter Care Teams Utility Assembler Relationship Specialty Start Date End Date Orestes Flores MD [address] [place] [address] PCP - General Internal Medicine 12/09/17 07/29/24 documented as of this encounter
--- OUTSIDE RECORDS SUMMARY | 2024-11-09 18:34 | XMS_ITS | Encounter Summary ---
Author Organization [facility] Address [address] [place] [address] Care Team Providers Care Medical Assistant Per Diem Name Role Phone Orestes Flores MD Primary Care Provider [phone] Encounter Details Date Type Department Care Team (Late Contact Info) Description 12/30/2017 Orders Only [facility] Oncology and Hematology [place] [address] [address] [place] [address] Lj Fam MD [address] [place] [address] [employer] [address] [place] [address] Malignant neoplasm of breast in female, [...] Description 02/01/2025 11:00 AM CDT Office Visit [facility] Oncology and Hematology [facility] [address] [place] [address] Lj Fam MD [address] [place] [address] [employer] [address] [place] [address] documented as of this encounter Procedures Procedure Name Priority Date/Time Associated Diagnosis Comments CTA CHEST W WO CONTRAST Routine 12/30/2017 Malignant neoplasm of breast in female, estrogen receptor positive, unspecified laterality, unspecified site of breast documented in this encounter Results * CTA CHEST W WO CONTRAST (12/30/2017) Anatomical Region Laterality Modality Chest Other Lj Fam MD CT ORDERABLES documented in this encounter Visit Diagnoses Diagnosis Malignant neoplasm of breast in female, estrogen receptor positive, unspecified laterality, unspecified site of breast documented in this encounter Care Teams Medical Assistant Per Diem Relationship Specialty Start Date End Date Orestes Flores MD [address] [place] [address] PCP - General Internal Medicine 12/09/17 07/29/24 documented as of this encounter
--- OUTSIDE RECORDS SUMMARY | 2024-11-09 18:34 | XMS_ITS | Encounter Summary ---
Author Organization [facility] Address [address] [place] [address] Care Team Providers Care Emergency Medicine Physician Name Role Phone Orestes Flores MD Primary Care Provider [phone] Reason for Referral * Outpatient Services (Routine) - Closed Specialty Diagnoses / Procedures Referred By Quinn cooper Referred To Contact Diagnoses Visit for screening mammogram Procedures MAMMO SCRN UNI LEFT W OR WO CAD Lj Fam MD [address] [place] [address] [address] Referral ID Status Reason Start Date Expiration Date Visits Requested Visits Authorized [id number] Closed Ordering Department To Schedule 05/25/2019 06/24/2020 1 1 Reason for Visit * Reason Comments Follow Up Results Encounter Details Date Type Department Care Team ([facility] st Contact Info) Description 05/25/2019 1:15 PM CDT Office Visit [facility] Oncology and Hematology - [address] [place] [address] Lj Fam MD [address] [place] [address] Malignant neoplasm of upper-outer quadrant [...] Sign Reading Time Taken Comments Blood Pressure 123/74 05/25/2019 1:16 PM CDT Pulse - - Temperature 36.8 ??C (98.2 ??F) 05/25/2019 1:16 PM CD T Respiratory Rate - - Oxygen Saturation 97% 05/25/2019 1:16 PM CDT Inhaled Oxygen Concentration - - Weight 88.3 kg (194 lb 9.6 oz) 05/25/2019 1:16 P M CDT Height 175.3 cm (5' 9 ) 05/25/2019 1:16 PM CDT Body Mass Index 28.74 05/25/2019 1:16 PM CDT documented in this encounter Progress Notes * Lj Fam MD - 05/25/2019 6:31 PM CDT HEMATOLOGY / ONCOLOGY PROGRESS NOTE Patient Identification: Name: Damien Pulido Age: 69 y.o. Sex: female : 1950 Subjective: HPI This is a 69-year-old female diagnosed to have right-sided breast cancer in 1994 status post lumpectomy and radiation therapy. She noticed inverted nipple in the right breast and mammogram was performed in 2015 that came back unremarkable. She had MRI done that showed large mass in the right breast. PET/CT done in June 2016 came back negative for metastatic disease. She had biopsy of the mass performed in June 2016. 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 Patient completed neoadjuvant chemotherapy with Adriamycin, Cytoxan and Taxol in October 2016. Patient had right-sided mastectomy done in November 2016. She completed radiation therapy in February 2017. 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 After improvement of the neck swelling patient was restarted on Femara in October 2018. Patient came into the office today for follow-up visit. She denies any chest pain or shortness of breath. No new complaints today. Interval History: Patient completed radiation therapy on February 13 2017. Bone density was performed in 2016. Patient received prolia injection on May 28, 2017. Patient received first dose of the Prolia on November 26 2017. Review of system Constitutional: No fever; no night sweats; no anorexia; no weight loss; denies tiredness and fatigue Respiratory: Denies any shortness of breath ; no pleuritic chest pain; no cough; no hemoptysis Cardiac: No cardiac-like chest pain; no palpitations; no orthopnea; no PND; complain of BE GI: No abdominal pain; no nausea; no vomiting; no diarrhea; no hematochezia; no melena, Musculosketetal: no bone pain; no arthralgia; no joint swelling; no myalgia; Neuro: No headache; no change in vision; neuropathy stable; no muscle weakness; no confusion; no seizures Ext denies any swelling 12 point review system was reviewed Objective: Vital signs in last 24 hours: As per nursing note Exam: Gen: NAD Lungs: Clear Cardiac: S1 and S2 without murmurs or gallops Abd: Soft, tender, no hepatomegally, no masses Extr: Minimal swelling in the right upper extremity Right chest wall showed no evidence of masses and lymphadenopathy, left breast showed no evidence of mass and lymphadenopathy. Examination as above Scheduled Meds:@[email or web address]@ Continuous Infusions:@[email or web address]@ Data Review: PATH [...] showed WBC 5.6 hemoglobin 12.6 platelet 202,000 Labs from January 26 showed WBC 5.4 hemoglobin 12.3 platelet 224,000 Labs from May 18, 2019 showed creatinine 0.7 CA 27-29-18 WBC 4.9 hemoglobin 12.6 platelet 198,000. Assessment: Plan: Patient Active Problem List Diagnosis Date Noted ??? Osteoporosis due to aromatase inhibitor 10/20/2018 ??? Screening for osteoporosis 12/21/2016 ??? 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 [...] right-sided Simple mastectomy done on November 20, 2016. Patient completed radiation therapy in February 2017. Patient started Arimidex 1 mg daily in February 2017.subsequently Arimidex was discontinued due to risk of thrombosis. Femara 2.5 mg by mouth daily due to risk of relapse of disease in October 2018. There is no evidence of relapse of disease on my examination. No evidence of relapse of disease. Patient will have left breast screening mammogram in June 2019. 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 CT chest done in March 2019 showed no evidence of pulmonary embolism but there was unchanged partial thrombosis of the left subclavian vein and proximal superior vena cava. Patient will continue Coumadin. Bone health. Bone density testing showed osteopenia. Patient will continue Prolia along with vitamin D and calcium.. Chemotherapy-induced neuropathy. Stable. Anemia secondary to chemotherapy. Hemoglobin is stable. TOBACCO COUNSELING She is not a tobacco user. .05/25/2019 Lj Fam MD documented in this encounter Miscellaneous Notes * Addendum Note - Lj Fam MD - 05/25/2019 6:42 PM CDTAddended by: LJ FAM on: 05/25/2019 06:42 PM Modules accepted: Orders documented in this encounter Plan of Treatment Upcoming Encounters Date Type Department Care Team (Late st Contact Info) Description 02/01/2025 11:00 AM CDT Office Visit [facility] Oncology and Hematology - [place] [address] [facility] [address] [place] [address] Lj Fam MD [address] [facility] [address] [place] [address] documented as of this encounter Results * CANCER ANTIGEN 27-29 (11/24/2019) Blood Lj Fam MD CHEMISTRY ORDERABLES COM Performing Organization Address [facility] Co de Phone Number EXTERNAL LAB * COMPREHENSIVE METABOLIC PANEL (11/19/2019) Blood Lj Fam MD CHEMISTRY ORDERABLES Performing Organization Address [facility] Co de Phone Number EXTERNAL LAB * CBC WITH DIFFERENTIAL (11/19/2019) Blood Lj Fam MD HEMATOLOGY ORDERABLE S Performing Organization Address [facility] Co de Phone Number EXTERNAL [...] mammogram documented in this encounter Care Teams Emergency Medicine Physician Relationship Specialty Start Date End Date Orestes Flores MD [address] [place] [address] PCP - General Internal Medicine 12/09/17 07/29/24 documented as of this encounter
--- OUTSIDE RECORDS SUMMARY | 2024-11-09 18:34 | XMS_ITS | Encounter Summary ---
Author Organization [facility] Address [address] [place] [address] Care Team Providers Care General Accounting Manager Name Role Phone Orestes Flores MD Primary Care Provider [phone] Reason for Visit * Reason Comments Medication Refill Encounter Details Date Type Department Care Team (Late Contact Info) Description 12/05/2017 Refill [facility] Oncology and Hematology - [place] [address] [facility] [address] [place] [address] Lj Fam MD [address] [place] [address] Social History Tobacco Use Types [...] Telephone Encounter - Jennifer Nielsen RN - 12/05/2017 8:22 AM CST rx refill. Jennifer Nielsen RN [employer] documented in this encounter Plan of Treatment Upcoming Encounters Date Type Department Care Team (Late Contact Info) Description 02/01/2025 11:00 AM CDT Office Visit [facility] Oncology and Hematology - [place] [address] [facility] [address] [place] [address] Lj Fam MD [address] [place] [address] documented as of this encounter Visit Diagnoses Not on filedocumented in this encounter Care Teams General Accounting Manager Relationship Specialty Start Date End Date Orestes Flores MD [address] [place] [address] PCP - General Internal Medicine 12/09/17 07/29/24 documented as of this encounter
--- OUTSIDE RECORDS SUMMARY | 2024-11-09 18:34 | XMS_ITS | Encounter Summary ---
Author Organization [facility] Address [address] [place] [address] Care Team Providers Care Repair Department Supervisor Name Role Phone Orestes Flores MD Primary Care Provider [phone] Reason for Referral * Outpatient Services (Routine) - Closed Specialty Diagnoses / Procedures Referred By Quinn cooper Referred To Contact Diagnoses Osteopenia of multiple sites Procedures XR DEXA BONE DENSITY AXIAL 1 OR MORE SITES Lj Fam MD [address] [place] [address] [address] Referral ID Status Reason Start Date Expiration Date Visits Requested Visits Authorized [id number] Closed Ordering Department To Schedule 10/24/2018 11/10/2018 1 1 ISION ASSEMBLER Reason for Visit * Reason Onset Date Comments Medication Problem 10/24/2018 Encounter Details Date Type Department Care Team ([facility] st Contact Info) Description 10/24/2018 Telephone [facility] Oncology and Hematology - [place] [address] [place] [address] [address] [place] [address] Lj Fam MD [address] [place] [address] Medication Problem Social History Tobacco Use Types Packs/Day Years [...] Telephone Encounter - Jennifer Nielsen RN - 10/24/2018 3:08 PM CST [facility] attempting to obtain auth for Prolia, pt does not meet criteria with osteopenia. Per Dr Fam, pt to have repeat bone density done. Arimidex was dc'd 06/28 due to thrombosis. Steve Nielsen RN ISION ASSEMBLER documented in this encounter Plan of Treatment Upcoming Encounters Date Type Department Care Team (Late st Contact Info) Description 02/01/2025 11:00 AM CDT Office Visit [facility] Oncology and Hematology [facility] [address] [facility] [address] [place] [address] Lj Fam MD [address] [facility] [address] [place] [address] Scheduled Orders Name Type Priority Associated Diagnoses Orde r Schedule XR DEXA BONE DENSITY AXIAL 1 OR MORE SITES Imaging Routine Osteopenia of multiple sites Expected: 10/31/2018, Expires: 10/24/2019 documented as of this encounter Visit Diagnoses Diagnosis Osteopenia of multiple sites- Primary documented in this encounter Care Teams Repair Department Supervisor Relationship Specialty Start Date End Date Orestes Flores MD [address] [place] [address] PCP - General Internal Medicine 12/09/17 07/29/24 documented as of this encounter
--- OUTSIDE RECORDS SUMMARY | 2024-11-09 18:34 | XMS_ITS | Encounter Summary ---
Author Organization [facility] Address [address] [place] [address] Care Team Providers Care Security Sergeant Name Role Phone Orestes Flores MD Primary Care Provider [phone] Encounter Details Date Type Department Care Team (Late Contact Info) Description 05/18/2020 Orders Only [facility] Oncology and Hematology - [place] [address] [place] [address] Karli Rowley RN Malignant neoplasm of upper-outer quadrant of [...] Description 02/01/2025 11:00 AM CDT Office Visit [facility] Oncology and Hematology - [place] [address] [place] [address] Lj Fam MD [address] [facility] [address] [place] [address] documented as of this encounter Visit Diagnoses Diagnosis Malignant neoplasm of upper-outer quadrant of right breast in female, estrogen receptor positive documented in this encounter Care Teams Security Sergeant Relationship Specialty Start Date End Date Orestes Flores MD [address] [place] [address] PCP - General Internal Medicine 12/09/17 07/29/24 documented as of this encounter
--- OUTSIDE RECORDS SUMMARY | 2024-11-09 18:34 | XMS_ITS | Encounter Summary ---
Author Organization [facility] Address [address] [place] [address] Care Team Providers Care Air Marshal Name Role Phone Unavailable Primary Care Provider Unavailabl e Reason for Visit * Reason Onset Date Comments Results 06/03/2017 Encounter Details Date Type Department Care Team (Late Contact Info) Description 06/03/2017 Telephone [facility] Oncology [facility] [address] [place] [phone] Lj Fam MD [address] [facility] [address] [place] [address] Results Social History Tobacco Use [...] Telephone Encounter - Jennifer Nielsen RN - 06/03/2017 3:46 PM CDT Spoke to pt as noted before to inform US left breast recommended, scheduled 06-05-17 at 1630. Steve Nielsen RN documented in this encounter Plan of Treatment Upcoming Encounters Date Type Department Care Team (Late Contact Info) Description 02/01/2025 11:00 AM CDT Office Visit [facility] Oncology [facility] Hematology [facility] [address] [place] [address] Lj Fam MD [address] [address] documented as of this encounter Visit Diagnoses Not on filedocumented in this encounter
--- OUTSIDE RECORDS SUMMARY | 2024-11-09 18:34 | XMS_ITS | Encounter Summary ---
Author Organization [facility] Address [address] [place] [address] Care Team Providers Care Foreign Food Cook Specialty Name Role Phone Orestes Flores MD Primary Care Provider Reason for Visit * Reason Onset Date Comments Results 12/13/2017 Encounter Details Date Type Department Care Team (Late Contact Info) Description 12/13/2017 Telephone [facility] Hematology [facility] [address] [place] [address] Lj Fam MD [address] [place] [address] Results Social History Tobacco Use [...] Telephone Encounter - Jennifer Nielsen RN - 12/13/2017 8:49 AM CST Pt called to report she has seen PCP and started synthroid 100 mcg daily. Jennifer Nielsen RN PATCHER documented in this encounter Plan of Treatment Upcoming Encounters Date Type Department Care Team (Late Contact Info) Description 02/01/2025 11:00 AM CDT Office Visit [facility] Oncology and Hematology [facility] [address] [place] [address] Lj Fam MD [address] [facility] [address] [place] [address] documented as of this encounter Visit Diagnoses Not on filedocumented in this encounter Care Teams Foreign Food Cook Specialty Relationship Specialty Start Date End Date Orestes Flores MD [address] [place] [address] PCP - General Internal Medicine 12/09/17 07/29/24 documented as of this encounter
--- OUTSIDE RECORDS SUMMARY | 2024-11-09 18:34 | XMS_ITS | Encounter Summary ---
Author Organization [facility] Address [address] [place] [address] Care Team Providers Care Research Nutritionist Name Role Phone Orestes Flores MD Primary Care Provider Encounter Details Date Type Department Care Team (Late Contact Info) Description 01/26/2019 Orders Only [facility] Oncology [place] [address] [place] [address] [facility] [employer] [address] [place] [address] Malignant neoplasm of breast in female, [...] [facility] Oncology [facility] [address] [place] [address] [facility] [employer] [address] [place] [address] documented as of this encounter Procedures Procedure Name Priority Date/Time Associated Diagnosis Comments CANCER ANTIGEN 15-3 Routine 01/26/2019 Malignant neoplasm of breast in female, estrogen receptor positive, unspecified laterality, unspecified site of breast CBC WITH DIFFERENTIAL Routine 01/26/2019 Malignant neoplasm of breast in female, estrogen receptor positive, unspecified laterality, unspecified site of breast COMPREHENSIVE METABOLIC PANEL Routine 01/26/2019 Malignant neoplasm of breast in female, estrogen receptor positive, unspecified laterality, unspecified site of breast documented in this encounter Results * CANCER ANTIGEN 15-3 (01/26/2019) Blood Lj Fam MD CHEMISTRY ORDERABLES EXTERNAL LAB * CBC WITH DIFFERENTIAL (01/26/2019) Blood Lj Fam MD HEMATOLOGY ORDERABLE S EXTERNAL LAB * (ABNORMAL) COMPREHENSIVE METABOLIC PANEL (01/26/2019) Blood Lj Fam MD CHEMISTRY ORDERABLES Performing Organization Address City/[facility]/ZIP Co de Phone Number EXTERNAL LAB documented in this encounter Visit Diagnoses Diagnosis Malignant neoplasm of breast in female, estrogen receptor positive, unspecified laterality, unspecified site of breast- Primary documented in this encounter Care Teams Research Nutritionist Relationship Specialty Start Date End Date Orestes Flores MD [facility] [place] [address] PCP - General Internal Medicine 12/09/17 07/29/24 documented as of this encounter
--- OUTSIDE RECORDS SUMMARY | 2024-11-09 18:34 | XMS_ITS | Encounter Summary ---
Author Organization [facility] Address [address] [place] [address] Care Team Providers Care Creative Lead Name Role Phone Orestes Flores MD Primary Care Provider [phone] Encounter Details Date Type Department Care Team (Late Contact Info) Description 07/07/2018 Orders Only [facility] Oncology and Hematology [facility] [address] [place] [address] Jennifer Nielsen RN Malignant neoplasm of upper-outer [...] [facility] On[facility] and [facility] [address] [place] [address] Lj Fam MD [address] [facility] [address] [place] [address] documented as of this encounter Procedures Procedure Name Priority Date/Time Associated Diagnosis Comments CANCER ANTIGEN 15-3 Routine 07/15/2018 Malignant neoplasm of upper-outer quadrant of right breast in female, estrogen receptor positive COMPREHENSIVE METABOLIC PANEL Routine 07/08/2018 Malignant neoplasm of upper-outer quadrant of right breast in female, estrogen receptor positive CBC WITH DIFFERENTIAL Routine 07/07/2018 Malignant neoplasm of upper-outer quadrant of right breast in female, estrogen receptor positive documented in this encounter Results * CANCER ANTIGEN 15-3 (07/15/2018) Blood Lj Fam MD CHEMISTRY ORDERABLES Performing Organization Address City/[facility]/ZIP Co de Phone Number EXTERNAL LAB * COMPREHENSIVE METABOLIC PANEL (07/08/2018) Blood Lj Fam MD CHEMISTRY ORDERABLES EXTERNAL LAB * CBC WITH DIFFERENTIAL (07/07/2018) Blood Lj Fam MD HEMATOLOGY ORDERABLE S Performing Organization Address [facility] Co de Phone Number EXTERNAL LAB documented in this encounter Visit Diagnoses Diagnosis Malignant neoplasm of upper-outer quadrant of right breast in female, estrogen receptor positive documented in this encounter Care Teams Creative Lead Relationship Specialty Start Date End Date Orestes Flores MD [address] [place] [phone] PCP - General Internal Medicine 12/09/17 07/29/24 documented as of this encounter
--- OUTSIDE RECORDS SUMMARY | 2024-11-09 18:34 | XMS_ITS | Encounter Summary ---
Author Organization [facility] Address [address] [place] [address] Care Team Providers Care Operations Research Manager Name Role Phone Orestes Flores MD Primary Care Provider Encounter Details Date Type Department Care Team (Late Contact Info) Description 06/17/2018 Orders Only [facility] Oncology and Hematology [facility] [address] [place] [address] Jennifer Nielsen RN Malignant neoplasm [...] Description 02/01/2025 11:00 AM CDT Office Visit [facility] Oncology and Hematology [facility] [address] [place] [address] Lj Fam MD [address] [facility] [address] [place] [address] documented as of this encounter Procedures Procedure Name Priority Date/Time Associated Diagnosis Comments MAMMO SCRN UNI LEFT W OR WO CAD Routine 06/17/2018 Malignant neoplasm of upper-outer quadrant of right breast in female, estrogen receptor positive documented in this encounter Results * MAMMO SCRN UNI LEFT W OR WO CAD (06/17/2018) Anatomical Region Laterality Modality Breast Left Other Lj Fam MD MAMMO ORDERABLES documented in this encounter Visit Diagnoses Diagnosis Malignant neoplasm of upper-outer quadrant of right breast in female, estrogen receptor positive documented in this encounter Care Teams Operations Research Manager Relationship Specialty Start Date End Date Orestes Flores MD [address] [place] [address] PCP - General Internal Medicine 12/09/17 07/29/24 documented as of this encounter
--- OUTSIDE RECORDS SUMMARY | 2024-11-09 18:34 | XMS_ITS | Encounter Summary ---
Author Organization [facility] Address [address] [place] [address] Care Team Providers Care Motorcycle Delivery Driver Name Role Phone Unavailable Primary Care Provider Unavailabl e Encounter Details Date Type Department Care Team (Late Contact Info) Description 07/08/2017 [facility] Only [facility] [address] [place] [phone] Jennifer Nielsen RN Breast calcification, left; Malignant neoplasm of female breast, unspecified laterality, unspecified site of breast Social [...] Description 02/01/2025 11:00 AM CDT [facility] [address] [place] [address] Lj Fam MD [address] [facility] [address] [place] [address] documented as of this encounter Procedures Procedure Name Priority Date/Time Associated Diagnosis Comments MAMMO DIAG UNI LEFT 3D ANAI W OR WO CAD Routine 07/08/2017 Breast calcification, left Malignant neoplasm of female breast, unspecified laterality, unspecified site of breast documented in this encounter Results * MAMMO DIAG UNI LEFT 3D ANAI W OR WO CAD (07/08/2017) Anatomical Region Laterality Modality Breast Left Other Lj Fam MD MAMMO ORDERABLES documented in this encounter Visit Diagnoses Diagnosis Breast calcification, left Other (abnormal) findings on radiological examination of breast Malignant neoplasm of female breast, unspecified laterality, unspecified site of breast documented in this encounter
--- OUTSIDE RECORDS SUMMARY | 2024-11-09 18:34 | XMS_ITS | Encounter Summary ---
Author Organization [facility] Address [address] [place] [address] Care Team Providers Care Belt Glass Sander Name Role Phone Orestes Flores MD Primary Care Provider [phone] Encounter Details Date Type Department Care Team (Late st Contact Info) Description 02/25/2018 Orders Only [facility] Oncology and Hematology [facility] [place] [address] [place] [address] Jennifer Nielsen RN Malignant neoplasm [...] 02/01/2025 11:00 AM CDT Office Visit [facility] Oncology and Hematology [facility] [place] [address] [place] [address] Lj Fam MD [address] [facility] [address] [place] [address] documented as of this encounter Procedures Procedure Name Priority Date/Time Associated Diagnosis Comments CANCER ANTIGEN 15-3 Routine 04/04/2018 Malignant neoplasm of upper-outer quadrant of right breast in female, estrogen receptor positive IRON, TIBC, AND PERCENT SATURATION Routine 04/02/2018 Malignant neoplasm of upper-outer quadrant of right breast in female, estrogen receptor positive COMPREHENSIVE METABOLIC PANEL Routine 04/02/2018 Malignant neoplasm of upper-outer quadrant of right breast in female, estrogen receptor positive CBC WITH DIFFERENTIAL Routine 04/01/2018 Malignant neoplasm of upper-outer quadrant of right breast in female, estrogen receptor positive documented in this encounter Results * CANCER ANTIGEN 15-3 (04/04/2018) Blood Lj Fam MD CHEMISTRY ORDERABLES Performing Organization Address City/[facility]/ZIP Co de Phone Number EXTERNAL LAB * COMPREHENSIVE METABOLIC PANEL (04/02/2018) Blood Lj Fam MD CHEMISTRY ORDERABLES Performing Organization Address [facility] Co de Phone Number EXTERNAL LAB * (ABNORMAL) IRON, TIBC, AND PERCENT SATURATION (04/02/2018) Blood Lj Fam MD CHEMISTRY ORDERABLES Performing Organization Address [facility] Co de Phone Number EXTERNAL LAB * CBC WITH DIFFERENTIAL (04/01/2018) Blood Lj Fam MD HEMATOLOGY ORDERABLE S Performing Organization Address [facility] de Phone Number EXTERNAL LAB documented in this encounter Visit Diagnoses Diagnosis Malignant neoplasm of upper-outer quadrant of right breast in female, estrogen receptor positive documented in this encounter Care Teams Belt Glass Sander Relationship Specialty Start Date End Date Orestes Flores MD [address] [place] [address] PCP - General Internal Medicine 12/09/17 07/29/24 documented as of this encounter
--- OUTSIDE RECORDS SUMMARY | 2024-11-09 18:34 | XMS_ITS | Encounter Summary ---
Author Organization [facility] Address [address] [place] [address] Care Team Providers Care Doughnut Icer Name Role Phone Orestes Flores MD Primary Care Provider [phone] Reason for Visit * Reason Comments Medication Refill Encounter Details Date Type Department Care Team ([facility] Contact Info) Description 10/27/2020 Refill [facility] Oncology and Hematology [place] [address] [place] [address] Lj Fam MD [facility] [address] [place] [address] Social History Tobacco Use Types Packs/Day [...] Upcoming Encounters Date Type Department Care Team ([facility] Contact Info) Description 02/01/2025 11:00 AM CDT Office Visit [facility] Oncology and Hematology [place] [address] [place] [address] Lj Fam MD [address] [place] [address] documented as of this encounter Visit Diagnoses Not on filedocumented in this encounter Care Teams Doughnut Icer Relationship Specialty Start Date End Date Orestes Flores MD [address] [place] [address] PCP - General Internal Medicine 12/09/17 07/29/24 documented as of this encounter
--- OUTSIDE RECORDS SUMMARY | 2024-11-09 18:34 | XMS_ITS | Encounter Summary ---
Author Organization [facility] Address [address] [place] [address] Care Team Providers Care Strip Mill Operator Name Role Phone Unavailable Primary Care Provider Unavailabl e Encounter Details Date Type Department Care Team (Late st Contact Info) Description 11/26/2017 Orders Only [facility] Oncology and Hematology [facility] [address] [place] [address] Jennifer Nielsen RN Malignant neoplasm of female breast Social History Tobacco Use Types [...] AM CDT Office Visit [facility] Oncology [facility] [address] [place] [address] [place] [address] [place] [address] [address] [place] [address] documented as of this encounter Procedures Procedure Name Priority Date/Time Associated Diagnosis Comments CANCER ANTIGEN 27-29 Routine 12/03/2017 Malignant neoplasm of female breast VITAMIN B12 AND FOLATE Routine 11/26/2017 Malignant neoplasm of female breast IRON, TIBC, AND PERCENT SATURATION Routine 11/26/2017 Malignant neoplasm of female breast CBC WITH DIFFERENTIAL Routine 11/26/2017 Malignant neoplasm of female breast FERRITIN Routine 11/26/2017 Malignant neoplasm of female breast COMPREHENSIVE METABOLIC PANEL Routine 11/26/2017 Malignant neoplasm of female breast documented in this encounter Results * CANCER ANTIGEN 27-29 (12/03/2017) Blood Lj Fam MD CHEMISTRY ORDERABLES COM EXTERNAL LAB * IRON, TIBC, AND PERCENT SATURATION (11/26/2017) Blood Lj Fam MD CHEMISTRY ORDERABLES EXTERNAL LAB * VITAMIN B12 AND FOLATE (11/26/2017) Blood Lj Fam MD CHEMISTRY ORDERABLES Performing Organization Address City/[facility]/ZIP Co de Phone Number EXTERNAL LAB * FERRITIN (11/26/2017) Blood Lj Fam MD CHEMISTRY ORDERABLES EXTERNAL LAB * CBC WITH DIFFERENTIAL (11/26/2017) Blood Lj Fam MD HEMATOLOGY ORDERABLE S Performing Organization Address City/[facility] Co de Phone Number EXTERNAL LAB * COMPREHENSIVE METABOLIC PANEL (11/26/2017) Blood Lj Fam MD CHEMISTRY ORDERABLES EXTERNAL LAB documented in this encounter Visit Diagnoses Diagnosis Malignant neoplasm of female breast Malignant neoplasm of breast (female), unspecified site documented in this encounter
--- OUTSIDE RECORDS SUMMARY | 2024-11-09 18:34 | XMS_ITS | Encounter Summary ---
Author Organization [facility] Address [address] [place] [address] Care Team Providers Care Division Sergeant Name Role Phone Unavailable Primary Care Provider Unavailabl e Reason for Visit * Reason Onset Date Comments Results 06/06/2017 breast ultrasoun d Encounter Details Date Type Department Care Team (Late Contact Info) Description 06/06/2017 Telephone [facility] Oncology [place] [address] [address] [place] [address] Lj Fam MD [address] [facility] [address] [place] [address] Results (breast ultrasound) Social History Tobacco Use Types Packs/Day Years [...] Telephone Encounter - Jennifer Nielsen RN - 06/06/2017 12:46 PM CDT US breast results reviewed by Dr. Fam, pt notified of benign results. Jennifer Nielsen RN documented in this encounter Plan of Treatment Upcoming Encounters Date Type Department Care Team (Late Contact Info) Description 02/01/2025 11:00 AM CDT Office Visit [facility] Oncology [facility] [address] [place] [address] Lj Fam MD [facility] [address] documented as of this encounter Visit Diagnoses Not on filedocumented in this encounter
--- OUTSIDE RECORDS SUMMARY | 2024-11-09 18:34 | XMS_ITS | Encounter Summary ---
Author Organization [facility] Address [address] [place] [address] Care Team Providers Care Sql Ssrs Ssis Developer Name Role Phone Unavailable Primary Care Provider Unavailabl e Reason for Referral * Outpatient Services (Routine) - Closed Specialty Diagnoses / Procedures Referred By Contjeanine t Referred To Contact Diagnoses Abnormal mammogram Malignant neoplasm of female breast, unspecified laterality, unspecified site of breast Procedures US BREAST UNI LEFT COMPLETE Lj Fam MD [address] [place] [address] [place] [address] Referral ID Status Reason Start Date Expiration Date Visits Re quested Visits Authorized [id number] Closed 06/03/2017 07/04/2018 1 1 Reason for Visit * Reason Onset Date Comments Results 06/03/2017 Encounter Details Date Type Department Care Team (Late st Contact Info) Description 06/03/2017 Telephone [facility] Oncology and Hematology [place] [id number] [facility] [address] [place] [address] Lj Fam MD [address] [place] [address] Results Social History Tobacco Use [...] Encounter - Jennifer Nielsen RN - 06/03/2017 3:25 PM CDT Called pt to schedule ultrasound breast, left message to call back. Per Dr. Fam, after reviewingmammogram, radiologist recommends left breast ultrasound, scheduled 06-05-17 at 1120 am. Jennifer Nielsen RN documented in this encounter Plan of Treatment Upcoming Encounters Date Type Department Care Team (Late st Contact Info) Description 02/01/2025 11:00 AM CDT Office Visit [facility] Oncology and Hematology [facility] [address] [place] [address] [facility] [address] [place] [address] Lj Fam MD [address] [facility] [address] [place] [address] documented as of this encounter Results * US BREAST UNI LEFT COMPLETE (06/11/2017) Anatomical Region Laterality Modality Breast Left Other Lj Fam MD ORDERABLES documented in this encounter Visit Diagnoses Diagnosis Abnormal mammogram- Primary Abnormal mammogram, unspecified Malignant neoplasm of female breast, unspecified laterality, unspecified site of breast documented in this encounter
--- OUTSIDE RECORDS SUMMARY | 2024-11-09 18:34 | XMS_ITS | Encounter Summary ---
Author Organization [facility] [employer] [facility] Address [address] [place] [address] Care Team Providers Care Casing Flusher Name Role Phone Orestes Flores MD Primary Care Provider [phone] Encounter Details Date Type Department Care Team (Late Contact Info) Description 06/28/2020 Orders Only [facility] Oncology and [facility] Osei Aguilar [address] [place] [phone] Karli Rowely RN Visit for screening mammogram Social History Tobacco [...] Description 02/01/2025 11:00 AM CDT Office Visit [facility] Oncology [facility] [address] [place] [phone] Lj Fam MD [address] [facility] [address] [place] [address] documented as of this encounter Procedures Procedure Name Priority Date/Time Associated Diagnosis Comments MAMMO SCRN UNI LEFT W OR WO CAD Routine 06/28/2020 Visit for screening mammogram documented in this encounter Results * MAMMO SCRN UNI LEFT W OR WO CAD (06/28/2020) Anatomical Region Laterality Modality Breast Left Other Lj Fam MD MAMMO ORDERABLES documented in this encounter Visit Diagnoses Diagnosis Visit for screening mammogram Other screening mammogram documented in this encounter Care Teams Casing Flusher Relationship Specialty Start Date End Date Orestes Flores MD [address] [place] [address] PCP - General Internal Medicine 12/09/17 07/29/24 documented as of this encounter
--- OUTSIDE RECORDS SUMMARY | 2024-11-09 18:34 | XMS_ITS | Encounter Summary ---
Author Organization [facility] Address [address] [place] [address] Care Team Providers Care Lvn Lpn Name Role Phone Orestes Flores MD Primary Care Provider [phone] Encounter Details Date Type Department Care Team (Late Contact Info) Description 12/09/2017 Orders Only [facility] Oncology and Hematology [facility] [address] [place], [place] [address]andrew Aguilar [address] [place] [phone] Jennifer Nielsen RN Hypothyroidism, unspecified type Social History Tobacco Use Types [...] Description 02/01/2025 11:00 AM CDT Office Visit [facility] Oncology [facility] [address] [place] [phone] Lj Fam MD [address] [facility] [address] [place] [address] documented as of this encounter Procedures Procedure Name Priority Date/Time Associated Diagnosis Comments T3 FREE Routine 12/12/2017 Hypothyroidism, unspecified type T4 FREE Routine 12/10/2017 Hypothyroidism, unspecified type documented in this encounter Results * (ABNORMAL) T3 FREE (12/12/2017) Blood Lj Fam MD CHEMISTRY ORDERABLES NON [facility] * T4 FREE (12/10/2017) Blood Lj Fam MD CHEMISTRY ORDERABLES Performing Organization Address City/[facility] Co de Phone Number NON [facility] documented in this encounter Visit Diagnoses Diagnosis Hypothyroidism, unspecified type documented in this encounter Care Teams Lvn Lpn Relationship Specialty Start Date End Date Orestes Flores MD [address] [place] [address] PCP - General Internal Medicine 12/09/17 07/29/24 documented as of this encounter
--- OUTSIDE RECORDS SUMMARY | 2024-11-09 18:34 | XMS_ITS | Encounter Summary ---
Author Organization [facility] [employer] [facility] Address [address] [place] [address] Care Team Providers Care Carbon Paper Coating Machine Setter Name Role Phone Orestes Flores MD Primary Care Provider [phone] Encounter Details Date Type Department Care Team (Late Contact Info) Description 06/29/2021 Orders Only [facility] Oncology and Hematology [facility] Osei Aguilar [address] [place] [phone] Karli Rowley RN Visit for screening mammogram Social History [...] [facility] [address] [place] [address] Lj Fam MD [address] [facility] [address] [place] [address] documented as of this encounter Procedures Procedure Name Priority Date/Time Associated Diagnosis Comments MAMMO SCRN UNI LEFT W OR WO CAD Routine 06/29/2021 Visit for screening mammogram documented in this encounter Results * MAMMO SCRN UNI LEFT W OR WO CAD (06/29/2021) Anatomical Region Laterality Modality Breast Left Other Lj Fam MD MAMMO ORDERABLES documented in this encounter Visit Diagnoses Diagnosis Visit for screening mammogram Other screening mammogram documented in this encounter Care Teams Carbon Paper Coating Machine Setter Relationship Specialty Start Date End Date Orestes Flores MD [address] [place] [address] PCP - General Internal Medicine 12/09/17 07/29/24 documented as of this encounter
--- OUTSIDE RECORDS SUMMARY | 2024-11-09 18:34 | XMS_ITS | Encounter Summary ---
Author Organization [facility] Address [address] [place] [address] Care Team Providers Care Student Records Specialist Name Role Phone Orestes Flores MD Primary Care Provider [phone] Reason for Visit * Reason Comments Follow Up right hand and arm s welling Encounter Details Date Type Department Care Team (Late st Contact Info) Description 01/02/2018 10:30 AM TICKET SORTER Office Visit [facility] Oncology and Hematology [facility] [address] [facility] [address] [place] [address] Lj Fam MD [address] [facility] [address] [place] [address] Malignant neoplasm of breast in female, estrogen receptor positive, unspecified laterality, unspecified site of breast (Primary Dx); Hypercoagulable state; Hypothyroidism, unspecified type Social History Tobacco Use [...] Sign Reading Time Taken Comments Blood Pressure 102/85 01/02/2018 10:38 AM TICKET SORTER Pulse 84 01/02/2018 10:38 AM TICKET SORTER Temperature 37.1 ??C (98.7 ??F) 01/02/2018 10:[address] Respiratory Rate 16 01/02/2018 10:38 AM TICKET SORTER Oxygen Saturation 98% 01/02/2018 10:38 AM TICKET SORTER Inhaled Oxygen Concentration - - Weight 83.5 kg (184 lb) 01/02/2018 10:38 AM TICKET SORTER Height 175.3 cm (5' 9 ) 01/02/2018 10:38 AM TICKET SORTER Body Mass Index 27.17 01/02/2018 10:38 AM TICKET SORTER documented in this encounter Progress Notes * Lj Fam MD - 01/02/2018 11:05 AM CST HEMATOLOGY / ONCOLOGY PROGRESS NOTE [...] 13 2017. Bone density was performed in [facility]. Patient received prolia injection on [...] of relapse of disease on my examination. Mammogramdone on July 08, 2017 showed fibroadenomatosis calcification. Routine mammography was recommendedin one year. 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 Patient will continue Xarelto 15 mg twice a day for 3 weeks then20 mg once a day. I will discontinue Arimidex due to thrombosis. I will see her back in one month. Patient is also going to have port removal in one month. Bone health. Bone density testing showed osteopenia. [...] 3 months.. Itching and bilateral lower extremity. Itching is better after using Medrol Dosepak. Hypersensitivity reaction with facial swelling. TSH came back elevated with low free T3 level. Patient is on Synthroid and already feeling better with less lightheadedness. Facial swelling improved after using Medrol Dosepak. .01/02/2018 Lj Fam MD ET SORTER documented in this encounter Miscellaneous Notes * Addendum Note - Lj Fam MD - 01/02/2018 10:30 AM CSTAddended by: LJ FAM on: 01/02/2018 11:47 AM Modules accepted: Orders ET SORTER documented in this encounter Plan of Treatment Upcoming Encounters Date Type Department Care Team (Late st Contact Info) Description 02/01/2025 11:00 AM CDT Office Visit [facility] Oncology and Hematology - [place] [address] [facility] [address] [place] [address] Lj Fam MD [address] [facility] [address] [place] [address] documented as of this encounter Visit Diagnoses Diagnosis Malignant neoplasm of breast in female, estrogen receptor positive, unspecified laterality, unspecified site of breast- Primary Hypercoagulable state Primary hypercoagulable state Hypothyroidism, unspecified type documented in this encounter Care Teams Student Records Specialist Relationship Specialty Start Date End Date Orestes Flores MD [address] [place] [address] PCP - General Internal Medicine 12/09/17 07/29/24 documented as of this encounter
--- OUTSIDE RECORDS SUMMARY | 2024-11-09 18:34 | XMS_ITS | Encounter Summary ---
Author Organization [facility] Address [address] [place] [address] Care Team Providers Care Thin Film Technician Name Role Phone Unavailable Primary Care Provider Unavailabl e Encounter Details Date Type Department Care Team (Late Contact Info) Description 06/11/2017 Orders Only [facility] Oncology [address] [place] [phone] Jennifer Nielsen RN Abnormal mammogram; Malignant neoplasm of female breast, unspecified laterality, [...] Description 02/01/2025 11:00 AM CDT Office Visit [place] [address] Ose[address] Aguilar [address] [place] [phone] Lj Fam MD [address] [facility] [address] [place] [address] documented as of this encounter Procedures Procedure Name Priority Date/Time Associated Diagnosis Comments US BREAST UNI LEFT COMPLETE Routine 06/11/2017 Abnormal mammogram Malignant neoplasm of female breast, unspecified laterality, unspecified site of breast documented in this encounter Results * US BREAST UNI LEFT COMPLETE (06/11/2017) Anatomical Region Laterality Modality Breast Left Other Lj Fam MD US ORDERABLES documented in this encounter Visit Diagnoses Diagnosis Abnormal mammogram Abnormal mammogram, unspecified Malignant neoplasm of female breast, unspecified laterality, unspecified site of breast documented in this encounter
--- OUTSIDE RECORDS SUMMARY | 2024-11-09 18:34 | XMS_ITS | Encounter Summary ---
Author Organization [facility] Address [address] [place] [address] Care Team Providers Care Housemaid Name Role Phone Orestes Flores MD Primary Care Provider [phone] Reason for Referral * CT Scan (Routine) - Closed Specialty Diagnoses / Procedures Referred By Quinn cooper Referred To Contact Diagnoses Hypercoagulable state Procedures CTA CHEST W CONTRAST Lj Fam MD [address] [employer] [address] [address] [address] Referral ID Status Reason Start Date Expiration Date Visits Requested Visits Authorized [id number] Closed Ordering Department To Schedule 01/26/2019 02/26/2020 1 1 Reason for Visit * Reason Comments Follow Up Encounter Details Date Type Department Care Team (Late st Contact Info) Description 01/26/2019 3:30 PM CDT Office Visit [facility] Oncology and Hematology - [place] [address] [address] Lj Fam MD [address] [address] [place] [address] Malignant neoplasm of upper-outer quadrant of right breast in female, estrogen receptor positive (Primary Dx); Hypercoagulable state; Osteoporosis due to aromatase inhibitor; SOB (shortness of breath) Social History Tobacco Use Types Packs/Day Years [...] Sign Reading Time Taken Comments Blood Pressure 120/74 01/26/2019 3:00 PM CDT Pulse 82 01/26/2019 3:00 PM CDT Temperature 37 ??C (98.6 ??F) 01/26/2019 3:00 PM CDT Respiratory Rate 18 01/26/2019 3:00 PM CDT Oxygen Saturation 96% 01/26/2019 3:00 PM CDT Inhaled Oxygen Concentration - - Weight 92.9 kg (204 lb 14.4 oz) 01/26/2019 3:00 PM CDT Height 175.3 cm (5' 9 ) 01/26/2019 3:00 PM CDT Body Mass Index 30.26 01/26/2019 3:00 PM CDT documented in this encounter Progress Notes * Lj Fam MD - 01/26/2019 4:01 PM CDT HEMATOLOGY / ONCOLOGY PROGRESS NOTE Patient Identification: Name: Damien Pulido Age: 68 y.o. Sex: female : 1950 Subjective: HPI This is a pleasant 68-year-old female who was diagnosed with localized right-sided [...] and lobular invasive c arcinoma moderately differentiated ER/VT positive HER-2/eleuterio negative Ki-67 less than 20%. Patient completed last chemotherapy with dose dense Taxol on October 31, 2016. Interval History: Patient completed radiation therapy on February 13 2017. Bone density was performed in [place] 2017. Patient received prolia injection on May 28, [...] 5.6 hemoglobin 12.6 platelet 202,000 Labs from March 18 showed WBC 5.4 hemoglobin 12.3 platelet 224,000 Assessment: Plan: Patient Active Problem List Diagnosis Date Noted ??? Osteoporosis due to aromatase inhibitor 10/20/2018 ??? Screening for osteoporosis 12/21/2016 ??? 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 [...] started Arimidex 1 mg daily in February 2017.discontinued Arimidex due to recent thrombosis. Femara 2.5 mg by mouth daily due to risk of relapse of disease in October 2018. No evidence of relapse of disease. Patient will have left breast mammogram in June 2019. 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 Coumadin dosage has been regulated by her primary care physician. I will order CT chest in March 2019. Bone health. Bone density testing showed osteopenia. Patient is on Aromatase inhibitor. Patient will continue vitamin D and calcium. She will continue prolia every 6 months basis. Repeat bone densitydone on January 19 showed osteopenia. Chemotherapy-induced neuropathy. Patient is on gabapentin 1600 mg daily along with metanx started recently. Anemia secondary to chemotherapy. Hemoglobin is stable. .01/26/2019 Lj Fam MD documented in this encounter Plan of Treatment Upcoming Encounters Date Type Department Care Team (Late st Contact Info) Description 02/01/2025 11:00 AM CDT Office Visit [facility] Oncology and Hematology - [place] [address] [facility] [address] [place] [address] Lj Fam MD [address] [facility] [address] [place] [address] documented as of this encounter Results * COMPREHENSIVE METABOLIC PANEL (05/18/2019) Blood Lj Fam MD CHEMISTRY ORDERABLES Performing Organization Address City/[facility]/ZIP Co de Phone Number EXTERNAL LAB * (ABNORMAL) CBC WITH DIFFERENTIAL (05/18/2019) Blood Lj Fam MD HEMATOLOGY ORDERABLE S EXTERNAL LAB * CANCER ANTIGEN 27-29 (05/18/2019) Blood Lj Fam MD CHEMISTRY ORDERABLES COM EXTERNAL LAB * (ABNORMAL) CTA CHEST W CONTRAST (04/01/2019) Anatomical Region Laterality Modality Chest Other Lj Fam MD CT ORDERABLES documented in this encounter Visit Diagnoses Diagnosis Malignant neoplasm of upper-outer quadrant of right breast in female, estrogen receptor positive- Primary Hypercoagulable state Primary hypercoagulable state Osteoporosis due to aromatase inhibitor Other osteoporosis SOB (shortness of breath) Shortness of breath documented in this encounter Care Teams Housemaid Relationship Specialty Start Date End Date Orestes Flores MD [address] [place] [address] PCP - General Internal Medicine 12/09/17 07/29/24 documented as of this encounter
--- OUTSIDE RECORDS SUMMARY | 2024-11-09 18:34 | XMS_ITS | Encounter Summary ---
Author Organization [facility] Address [address] [place] [address] Care Team Providers Care Forging Operator Name Role Phone Unavailable Primary Care Provider Unavailabl e Reason for Visit * Reason Onset Date Comments Results 07/10/2017 Encounter Details Date Type Department Care Team ([facility] Contact Info) Description 07/10/2017 Telephone [facility] Oncology [address] [place] [address] Lj Fam MD [address] [employer] [address] [place] [address] Results Social History Tobacco Use [...] Telephone Encounter - Jennifer Nielsen RN - 07/10/2017 9:52 AM CDT Pt informed of diagnostic mammogram per mary Wilde. Jennifer Nielsen RN documented in this encounter Plan of Treatment Upcoming Encounters Date Type Department Care Team (Late Contact Info) Description 02/01/2025 11:00 AM CDT Office Visit [facility] Oncology [address] [place] [address] Lj Fam MD [address] [address] documented as of this encounter Visit Diagnoses Not on filedocumented in this encounter
--- OUTSIDE RECORDS SUMMARY | 2024-11-09 18:34 | XMS_ITS | Encounter Summary ---
Author Organization [facility] Address [address] [place] [address] Care Team Providers Care Garage Door Service Technician Name Role Phone Orestes Flores MD Primary Care Provider [phone] Reason for Visit * Reason Comments Follow Up 6mth Encounter Details Date Type Department Care Team (Late st Contact Info) Description 05/26/2020 1:00 PM CDT Office Visit [facility] Oncology and Hematology - [place] [address] [facility] [address] [place] [address] Lj Fam MD [address] [facility] [address] [place] [address] Malignant neoplasm of upper-outer quadrant [...] PM CDT documented as of this encounter Last Filed Vital Signs Vital Sign Reading Time Taken Comments Blood Pressure 131/85 05/26/2020 1:02 PM CDT Pulse 98 05/26/2020 1:02 PM CDT Temperature 36.9 ??C (98.4 ??F) 05/26/2020 1:02 PM CD T Respiratory Rate - - Oxygen Saturation 95% 05/26/2020 1:02 PM CDT Inhaled Oxygen Concentration - - Weight 93.6 kg (206 lb 4.8 oz) 05/26/2020 1:02 P M CDT Height 175.3 cm (5' 9 ) 05/26/2020 1:02 PM CDT Body Mass Index 30.47 05/26/2020 1:02 PM CDT documented in this encounter Progress Notes * Lj Fam MD - 05/26/2020 1:32 PM CDT HEMATOLOGY / ONCOLOGY PROGRESS NOTE Patient Identification: Name: Damien Pulido Age: 70 y.o. 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 She denies any night sweats fever chills. Her weight and appetite are stable. No new lumps bumps or lymphadenopathy. No other new complaints. Review of [...] right breast. Diagnosed in June 2016. Labs reviewed. Liver enzymes are normal. No evidence of relapse of disease on my examination. She will continue Femara which she has been tolerating well. Left breast screening mammogram will be donein June 2020. I will see her back in 6 months. Osteopenia. Patient will continue Prolia on every 6-month basis along with vitamin D and calcium. History of DVT. Patient is on Coumadin. Anemia. Hemoglobin is improving slowly. Elevated liver enzyme. Likely secondary to Aguayo. Repeat enzymes came back normal. TOBACCO COUNSELING She is not a tobacco user. 05/26/2020 Lj Fam MD documented in this encounter Plan of Treatment Upcoming Encounters Date Type Department Care Team (Late st Contact Info) Description 02/01/2025 11:00 AM CDT Office Visit [facility] Oncology and Hematology - [place] [address] [facility] [address] [place] [address] Lj Fam MD [address] [facility] [address] [place] [address] Scheduled Orders Name Type Priority Associated Diagnoses Orde r Schedule CBC WITH DIFFERENTIAL Lab Routine Malignant neoplasm of upper-outer quadrant of right breast in female, estrogen receptor positive Expected: 11/24/2020, Expires: 05/26/2021 documented as of this encounter Results * COMPREHENSIVE METABOLIC PANEL (11/25/2020) Blood Lj Fam MD CHEMISTRY ORDERABLES NON [facility] documented in this encounter Visit Diagnoses Diagnosis Malignant neoplasm of upper-outer quadrant of right breast in female, estrogen receptor positive- Primary documented in this encounter Care Teams Garage Door Service Technician Relationship Specialty Start Date End Date Orestes Flores MD [address] [place] [address] PCP - General Internal Medicine 12/09/17 07/29/24 documented as of this encounter
--- OUTSIDE RECORDS SUMMARY | 2024-11-09 18:34 | XMS_ITS | Encounter Summary ---
Author Organization [facility] Address [address] [place] [address] Care Team Providers Care Material Flow Engineer Name Role Phone Orestes Flores MD Primary Care Provider [phone] Reason for Referral * Outpatient Services (Routine) - Closed Specialty Diagnoses / Procedures Referred By Quinn cooper Referred To Contact Diagnoses Hypercoagulable state Procedures CTA CHEST W CONTRAST Lj Fam MD [address] [place] [address] [place] [address] [place] [address] Referral ID Status Reason Start Date Expiration Date Visits Requested Visits Authorized [id number] Closed Ordering Department To Schedule 02/25/2018 03/28/2019 1 1 Reason for Visit * Reason Comments Follow Up Labs and swelling du e to medication Encounter Details Date Type Department Care Team ([facility] st Contact Info) Description 02/25/2018 10:30 AM CDT Office Visit [facility] Oncology and Hematology [facility] [address] [facility] [address] [place] [address] Lj Fam MD [address] [place] [address] Malignant neoplasm of breast in [...] Sign Reading Time Taken Comments Blood Pressure 151/82 02/25/2018 10:25 AM CDT Pulse 89 02/25/2018 10:25 AM CDT Temperature 36.8 ??C (98.2 ??F) 02/25/2018 10:25 AM C DT Respiratory Rate 18 02/25/2018 10:25 AM CDT Oxygen Saturation 93% 02/25/2018 10:25 AM CDT Inhaled Oxygen Concentration - - Weight 85.7 kg (189 lb) 02/25/2018 10:25 AM CDT Height 175.3 cm (5' 9 ) 02/25/2018 10:25 AM CDT Body Mass Index 27.91 02/25/2018 10:25 AM CDT documented in this encounter Progress Notes * Lj Fam MD - 02/25/2018 10:59 AM CDT HEMATOLOGY / ONCOLOGY PROGRESS NOTE [...] and lobular invasive c arcinoma moderately differentiated [place] positive HER-2/eleuterio negative Ki-67 less than 20%. [...] 13 2017. Bone density was performed in [facility]2016. Patient received prolia injection on May [...] ultrasound-guided core biopsy on June 26, 2016, [place] positive HER-2/eleuterio negative Ki-67 less than 20%. [...] subclavian vein and right internal jugular vein. Facial swelling has improved. Persistent right upper extremity edema but may be slightly better according to the patient. Mediport has been removed. Patient will continue Xarelto 20 mg daily. I will add baby aspirin. I will order CT chest in one month. Bone health. Bone density [...] bilateral lower extremity. Continue Benadryl as needed. Hypersensitivity reaction with facial swelling. TSH came back elevated with low free T3 level. Patient is on Synthroid . .02/25/2018 Lj Fam MD documented in this encounter Plan of Treatment Upcoming Encounters Date Type Department Care Team (Late st Contact Info) Description 02/01/2025 11:00 AM CDT Office Visit [facility] Oncology and Hematology [facility] [address] [facility] [address] [place] [address] Lj Fam MD [address] [facility] [address] [place] [address] documented as of this encounter Results * CTA CHEST W CONTRAST (03/26/2018) Anatomical Region Laterality Modality Chest Other Lj Fam MD CT ORDERABLES documented in this encounter Visit Diagnoses Diagnosis Malignant neoplasm of breast in female, estrogen receptor positive, unspecified laterality, unspecified site of breast- Primary Hypercoagulable state Primary hypercoagulable state documented in this encounter Care Teams Material Flow Engineer Relationship Specialty Start Date End Date Orestes Flores MD [address] [place] [address] PCP - General Internal Medicine 12/09/17 07/29/24 documented as of this encounter
--- OUTSIDE RECORDS SUMMARY | 2024-11-09 18:34 | XMS_ITS | Encounter Summary ---
Author Organization [facility] Address [address] [place] [address] Care Team Providers Care Wind Field Service Manager Name Role Phone Orestes Flores MD Primary Care Provider [phone] Encounter Details Date Type Department Care Team (Late Contact Info) Description 10/27/2018 Orders Only [facility] Oncology and Hematology [facility] [address] [place] [address] Jennifer Nielsen RN Use of aromatase inhibitors (Primary Dx); Malignant neoplasm of upper-outer quadrant of right breast in female, estrogen receptor positive; Osteopenia of multiple sites Social History Tobacco Use Types Packs/Day Years [...] Upcoming Encounters Date Type Department Care Team ([facility] Contact Info) Description 02/01/2025 11:00 AM CDT Office Visit [facility] Oncology and [facility] [address] [place] [address] Lj Fam MD [address] [facility] [address] [place] [address] documented as of this encounter Procedures Procedure Name Priority Date/Time Associated Diagnosis Comments CANCER ANTIGEN 27-29 Routine 10/28/2018 Malignant neoplasm of upper-outer quadrant of right breast in female, estrogen receptor positive CBC WITH DIFFERENTIAL Routine 10/28/2018 Malignant neoplasm of upper-outer quadrant of right breast in female, estrogen receptor positive COMPREHENSIVE METABOLIC PANEL Routine 10/28/2018 Malignant neoplasm of upper-outer quadrant of right breast in female, estrogen receptor positive documented in this encounter Results * COMPREHENSIVE METABOLIC PANEL (10/28/2018) Blood Lj Fam MD CHEMISTRY ORDERABLES EXTERNAL LAB * CBC WITH DIFFERENTIAL (10/28/2018) Blood Lj Fam MD HEMATOLOGY ORDERABLE S EXTERNAL LAB * CANCER ANTIGEN 27-29 (10/28/2018) Blood Lj Fam MD CHEMISTRY ORDERABLES COM EXTERNAL LAB documented in this encounter Visit Diagnoses Diagnosis Use of aromatase inhibitors- Primary Malignant neoplasm of upper-outer quadrant of right breast in female, estrogen receptor positive Osteopenia of multiple sites documented in this encounter Care Teams Wind Field Service Manager Relationship Specialty Start Date End Date Orestes Flores MD [address] [place] [address] PCP - General Internal Medicine 12/09/17 07/29/24 documented as of this encounter
--- OUTSIDE RECORDS SUMMARY | 2024-11-09 18:34 | XMS_ITS | Encounter Summary ---
Author Organization [facility] Address [address] [place] [address] Care Team Providers Care Bindery Helper Name Role Phone Orestes Flores MD Primary Care Provider [phone] Reason for Visit * Reason Comments Arm swelling Patient noticed arm/ hand, face, and neck swelling for 2 days. Numbess in feet and hands. Encounter Details Date Type Department Care Team (Late st Contact Info) Description 12/06/2017 11:15 AM HAIR OR BEAUTY SALON MANAGER Office Visit [facility] Oncology and Hematology - [place] [address] [place] [address] [facility] [address] [place] [address] Lj Fam MD [address] [facility] [address] [place] [address] Malignant neoplasm of breast in female, estrogen receptor positive, unspecified laterality, unspecified site of breast (Primary Dx); Hypothyroidism, unspecified type Social History Tobacco Use [...] Sign Reading Time Taken Comments Blood Pressure 140/81 12/06/2017 10:42 AM HAIR OR BEAUTY SALON MANAGER Pulse 94 12/06/2017 10:42 AM HAIR OR BEAUTY SALON MANAGER Temperature 36.7 ??C (98.1 ??F) 12/06/2017 1 0:42 AM HAIR OR BEAUTY SALON MANAGER Respiratory Rate - - Oxygen Saturation - - Inhaled Oxygen Concentration - - Weight 86.1 kg (189 lb 14.4 oz) 018 10:42 AM HAIR OR BEAUTY SALON MANAGER Height 175.3 cm (5' 9 ) 12/06/2017 10:4 2 AM HAIR OR BEAUTY SALON MANAGER Body Mass Index 28.04 12/06/2017 10:42 AM HAIR OR BEAUTY SALON MANAGER documented in this encounter Progress Notes * Lj Fam MD - 12/06/2017 11:35 AM CST HEMATOLOGY / ONCOLOGY PROGRESS NOTE [...] and lobular invasive c arcinoma moderately differentiated [place] positive HER-2/eleuterio negative Ki-67 less than 20%. [...] 13 2017. Bone density was performed in [facility]2016. Patient received prolia injection on May 28, 2017. Patient started Atarax for itching on November 26 and developed hypersensitivity with swelling especially in the face and upper extremity. She has discontinued Atarax and Neurontin due to dizziness and lightheadedness. Review of system Constitutional: No fever; no [...] ultrasound-guided core biopsy on June 26, 2016, ER/[place] positive HER-2/eleuterio negative Ki-67 less than 20%. [...] prolia every 6 months basis. Chemotherapy-induced neuropathy. She'll discontinue Neurontin due to lightheadedness and dizziness Anemia secondary to chemotherapy. Hemoglobin is 10.9 today. Other labs including iron and B12 studies are pending. Her shortness of breath is likely secondary to anemia. Shortness of breath. Chest x-ray was performed yesterday that showed hyperinflation consistent withCOPD. There was no evidence of pneumonia and pleural effusion. Likely shortness of breath is due toCOPD and anemia. Itching and bilateral lower extremity. Itching is better. Patient discontinued Atarax due to dizziness and lightheadedness. Hypersensitivity reaction with facial swelling. I will check TSH. Patient has discontinued Atarax. I will give her a Medrol Dosepak. Patient will be back to see me in 2 months with repeat labs. .12/06/2017 Lj Fam MD OR BEAUTY SALON MANAGER documented in this encounter Miscellaneous Notes * Addendum Note - Jennifer Nielsen RN - 12/06/2017 11:15 AM CSTAddended by: JENNIFER NIELSEN on: 12/06/2017 11:59 AM Modules accepted: Orders OR BEAUTY SALON MANAGER * Addendum Note - Jennifer Nielsen RN - 12/06/2017 11:15 AM CSTAddended by: JENNIFER NIELSEN on: 12/09/2017 03:56 PM Modules accepted: Orders OR BEAUTY SALON MANAGER documented in this encounter Plan of Treatment Upcoming Encounters Date Type Department Care Team (Late st Contact Info) Description 02/01/2025 11:00 AM CDT Office Visit [facility] Oncology and Hematology - [place] [address] [facility] [address] [place] [address] Lj Fam MD [address] [facility] [address] [place] [address] documented as of this encounter Procedures Procedure Name Priority Date/Time Associated Diagnosis Comments TSH Routine 12/09/2017 Hypothyroidism, unspecified type documented in this encounter Results * CANCER ANTIGEN 15-3 (01/30/2018) Blood Lj Fam MD CHEMISTRY ORDERABLES Performing Organization Address City/[facility]/ZIP Co de Phone Number EXTERNAL LAB * (ABNORMAL) COMPREHENSIVE METABOLIC PANEL (01/28/2018) Blood Lj Fam MD CHEMISTRY ORDERABLES EXTERNAL LAB * (ABNORMAL) CBC WITH DIFFERENTIAL (01/28/2018) Blood Lj Fam MD HEMATOLOGY ORDERABLE S EXTERNAL LAB * (ABNORMAL) T3 FREE (12/12/2017) Blood Lj Fam MD CHEMISTRY ORDERABLES NON [facility] * T4 FREE (12/10/2017) Blood Lj Fam MD CHEMISTRY ORDERABLES NON [facility] * (ABNORMAL) TSH (12/09/2017) Blood Lj Fam MD CHEMISTRY ORDERABLES EXTERNAL LAB documented in this encounter Visit Diagnoses Diagnosis Malignant neoplasm of breast in female, estrogen receptor positive, unspecified laterality, unspecified site of breast- Primary Hypothyroidism, unspecified type documented in this encounter Care Teams Bindery Helper Relationship Specialty Start Date End Date Orestes Flores MD [address] [place] [address] PCP - General Internal Medicine 12/09/17 07/29/24 documented as of this encounter
--- OUTSIDE RECORDS SUMMARY | 2024-11-09 18:34 | XMS_ITS | Encounter Summary ---
Author Organization [facility] Address [address] [place] [address] Care Team Providers Care Screwhead Stoner And Polisher Name Role Phone Orestes Flores MD Primary Care Provider [phone] Reason for Visit * Reason Comments Follow Up Encounter Details Date Type Department Care Team ([facility] st Contact Info) Description 01/27/2018 10:45 AM CDT Office Visit [facility] Oncology and Hematology - [place] [address] [facility] [address] [place] [address] Lj Fam MD [address] [facility] [address] [place] [address] Malignant neoplasm of breast in [...] Sign Reading Time Taken Comments Blood Pressure 129/91 01/27/2018 11:27 AM CDT Pulse 98 01/27/2018 11:27 AM CDT Temperature 36.7 ??C (98 ??F) 01/27/2018 11:27 AM CDT Respiratory Rate 16 01/27/2018 11:27 AM CDT Oxygen Saturation 96% 01/27/2018 11:27 AM CDT Inhaled Oxygen Concentration - - Weight 84.4 kg (186 lb) 01/27/2018 11:27 AM CDT Height 175.3 cm (5' 9 ) 01/27/2018 11:27 AM CDT Body Mass Index 27.47 01/27/2018 11:27 AM CDT documented in this encounter Progress Notes * Lj Fam MD - 01/27/2018 12:35 PM CDT HEMATOLOGY / ONCOLOGY PROGRESS NOTE [...] and lobular invasive c arcinoma moderately differentiated [place] positive HER-2/eleuterio negative Ki-67 less than 20%. [...] 13 2017. Bone density was performed in [facility]2016. Patient received prolia injection on May [...] ultrasound-guided core biopsy on June 26, 2016, [place] positive HER-2/eleuterio negative Ki-67 less than 20%. [...] vein and right internal jugular vein. Patient is now on Xarelto funny milligram once a day. Facial swelling has improved. Persistent right upper extremity edema. She is going to have port removed today.I will see her back in one month to decide if she needs any Lovenox injections. Bone health. Bone density testing showed osteopenia. [...] Facial swelling improved after using Medrol Dosepak. .01/27/2018 Lj Fam MD documented in this encounter Plan of Treatment Upcoming Encounters Date Type Department Care Team (Late st Contact Info) Description 02/01/2025 11:00 AM CDT Office Visit [facility] Oncology and Hematology - [place] [address] [facility] [address] [place] [address] Lj Fam MD [address] [facility] [address] [place] [address] documented as of this encounter Visit Diagnoses Diagnosis Malignant neoplasm of breast in female, estrogen receptor positive, unspecified laterality, unspecified site of breast- Primary Hypercoagulable state Primary hypercoagulable state documented in this encounter Care Teams Screwhead Stoner And Polisher Relationship Specialty Start Date End Date Orestes Flores MD [address] [place] [address] PCP - General Internal Medicine 12/09/17 07/29/24 documented as of this encounter
--- OUTSIDE RECORDS SUMMARY | 2024-11-09 18:34 | XMS_ITS | Encounter Summary ---
Author Organization [facility] Address [address] [place] [address] Care Team Providers Care Director Global Sales Name Role Phone Ankit Villafuerte DO Primary Care Provider [phone] Encounter Details Date Type Department Care Team (Late Contact Info) Description 2019 Chart Note [facility] Radiation Therapy [address] [place] [address] [place] [address] [place] [address] Social History Tobacco Use Types Packs/Day Years [...] Description 02/01/2025 11:00 AM CDT Office Visit [facility] Oncology and Hematology - [place] [address] [facility] [address] [place] [address] Lj Fam MD [address] [facility] [address] [place] [address] documented as of this encounter Visit Diagnoses Not on filedocumented in this encounter Care Teams Director Global Sales Relationship Specialty Start Date End Date Ankit Villafuerte DO [address] [facility] [address] [place] [address] PCP - General Internal Medicine 07/30/24 documented as of this encounter
--- OUTSIDE RECORDS SUMMARY | 2024-11-09 18:34 | XMS_ITS | Encounter Summary ---
Author Organization [facility] Address [address] [facility] Attn: Epic Prelude ADT [place] [address] Care Team Providers Care Director Of Procurement Name Role Phone Orestes Flores MD Primary Care Provider [phone] Encounter Details Date Type Department Care Team (Latest Contact Info) Description 12/01/2020 Travel Social History Tobacco Use Types Packs/Day [...] COVID-19? No / Unsure 12/01/2020 10:49 AM DOCK MANAGER documented as of this encounter Plan of Treatment Upcoming Encounters Date Type Department Care Team (Late st Contact Info) Description 02/01/2025 11:00 AM CDT Office Visit [facility] Oncology and Hematology - [place] [address] [facility] [address] [place] [address] Lj Fam MD [address] [facility] [address] [place] [address] documented as of this encounter Visit Diagnoses Not on filedocumented in this encounter Care Teams Director Of Procurement Relationship Specialty Start Date End Date Orestes Flores MD [address] [place] [address] PCP - General Internal Medicine 12/09/17 07/29/24 documented as of this encounter
--- OUTSIDE RECORDS SUMMARY | 2024-11-09 18:34 | XMS_ITS | Encounter Summary ---
Author Organization [facility] Address [address] [place] [address] Care Team Providers Care Cycling Instructor Name Role Phone Unavailable Primary Care Provider Unavailabl e Reason for Referral * Outpatient Services (Routine) - Closed Specialty Diagnoses / Procedures Referred By Contjeanine t Referred To Contact Diagnoses Breast calcification, left Malignant neoplasm of female breast, unspecified laterality, unspecified site of breast Procedures MAMMO DIAG UNI LEFT 3D ANAI W OR WO CAD Lj Fam MD [address] [place] [address] [place] [address] [place] [address] Referral ID Status Reason Start Date Expiration Date Visits Requested Visits Authorized [id number] Closed Ordering Department To Schedule 07/08/2017 08/08/2018 1 1 Reason for Visit * Reason Onset Date Comments Results 07/08/2017 Encounter Details Date Type Department Care Team (Late st Contact Info) Description 07/08/2017 Telephone [facility] Oncology and Hematology - [place] [address] [facility] [address] [place] [address] Lj Fam MD [address] [place] [address] Results Social History Tobacco Use [...] Telephone Encounter - Jennifer Nielsen RN - 07/08/2017 9:38 AM CDT Pt here to question letters received from [facility], I called and spoke to tech at mammogram center. Radiologist recommended pt have additional films, orders placed. Pt will have repeat filmsas ordered. Jennifer Nielsen RN documented in this encounter Plan of Treatment Upcoming Encounters Date Type Department Care Team (Late st Contact Info) Description 02/01/2025 11:00 AM CDT Office Visit [facility] Oncology and Hematology - [place] [address] [facility] [address] [place] [address] Lj Fam MD [address] [facility] [address] [place] [address] documented as of this encounter Results * MAMMO DIAG UNI LEFT 3D ANAI W OR WO CAD (07/08/2017) Anatomical Region Laterality Modality Breast Left Other Lj Fam MD MAMMO ORDERABLES documented in this encounter Visit Diagnoses Diagnosis Breast calcification, left- Primary Other (abnormal) findings on radiological examination of breast Malignant neoplasm of female breast, unspecified laterality, unspecified site of breast documented in this encounter
--- OUTSIDE RECORDS SUMMARY | 2024-11-09 18:34 | XMS_ITS | Encounter Summary ---
Author Organization [facility] Address [address] [place] [address] Care Team Providers Care Core Oven Tender Name Role Phone Orestes Flores MD Primary Care Provider [phone] Reason for Visit * Reason Comments Medication Refill Encounter Details Date Type Department Care Team ([facility] Contact Info) Description 04/25/2020 Refill [facility] Oncology and Hematology [place] [address] [place] [address] Lj Fam MD [address] [place] [address] [employer] [address] [place] [address] Social History Tobacco Use Types Packs/Day [...] Upcoming Encounters Date Type Department Care Team ([facility] Contact Info) Description 02/01/2025 11:00 AM CDT Office Visit [facility] Oncology and Hematology - [place] [address] [place] [address] Lj Fam MD [facility] [employer] [address] [place] [address] documented as of this encounter Visit Diagnoses Not on filedocumented in this encounter Care Teams Core Oven Tender Relationship Specialty Start Date End Date Orestes Flores MD [address] [place], [place] [phone] PCP - General Internal Medicine 12/09/17 07/29/24 documented as of this encounter
--- OUTSIDE RECORDS SUMMARY | 2024-11-09 18:34 | XMS_ITS | Encounter Summary ---
Author Organization [facility] Address [address] [place] [address] Care Team Providers Care A R Collections Rep Name Role Phone Unavailable Primary Care Provider Unavailabl e Encounter Details Date Type Department Care Team (Late Contact Info) Description 06/12/2017 Orders Only [facility] Oncology and Hematology [facility] [address] [place] [phone] Lj Fam MD [address] [place] [address] [employer] [address] [place], [place] [address] Social History Tobacco Use Types Packs/Day Years [...] Description 02/01/2025 11:00 AM CDT Office Visit [facility] Oncology and Hematology [place] [address] [place] [address] Lj Fam MD [address] [employer] [address] [place] [address] documented as of this encounter Procedures Procedure Name Priority Date/Time Associated Diagnosis Comments MAMMO SCREENING BILAT Routine 06/12/2017 documented in this encounter Results * MAMMO SCREENING BILAT (06/12/2017) Anatomical Region Laterality Modality Breast Bilateral Other Lj Fam MD MAMMO ORDERABLES documented in this encounter Visit Diagnoses Not on filedocumented in this encounter
--- OUTSIDE RECORDS SUMMARY | 2024-11-09 18:34 | XMS_ITS | Encounter Summary ---
Author Organization [facility] Address [address] [place] [address] Care Team Providers Care Cs Associate Name Role Phone Orestes Flores MD Primary Care Provider [phone] Encounter Details Date Type Department Care Team (Late Contact Info) Description 04/01/2019 Orders Only [facility] Oncology and Hematology [facility] [address] [place] [phone] Jennifer Nielsen RN Hypercoagulable state Social History Tobacco Use Types [...] 02/01/2025 11:00 AM CDT Office Visit [facility] Oncology and Hematology [facility] [address] [place] [address] Lj Fam MD [address] [facility] [place] [address] [place] [address] documented as of this encounter Procedures Procedure Name Priority Date/Time Associated Diagnosis Comments CTA CHEST W AND/OR WO CONTRAST Routine 04/01/2019 Hypercoagulable state documented in this encounter Results * (ABNORMAL) CTA CHEST W CONTRAST (04/01/2019) Anatomical Region Laterality Modality Chest Other Lj Fam MD CT ORDERABLES documented in this encounter Visit Diagnoses Diagnosis Hypercoagulable state Primary hypercoagulable state documented in this encounter Care Teams Cs Associate Relationship Specialty Start Date End Date Orsetes Flores MD [address] [place] [address] PCP - General Internal Medicine 12/09/17 07/29/24 documented as of this encounter
--- OUTSIDE RECORDS SUMMARY | 2024-11-09 18:34 | XMS_ITS | Encounter Summary ---
Author Organization [facility] [employer] [facility] Address [address] [place] [address] Care Team Providers Care Algebra Tutor Name Role Phone Orestes Flores MD Primary Care Provider Encounter Details Date Type Department Care Team (Late Contact Info) Description 11/25/2020 Orders Only [facility] Oncology and Hematology [place] [address] [address] [place] [address] Lj Fam MD [facility] [address] [place] [address] Malignant neoplasm of upper-outer quadrant [...] [facility] Oncology and Hematology - [place] [address] [place] [address] Lj Fam MD [address] [employer] [address] [place] [address] documented as of this encounter Procedures Procedure Name Priority Date/Time Associated Diagnosis Comments COMPREHENSIVE METABOLIC PANEL Routine 11/25/2020 Malignant neoplasm of upper-outer quadrant of right breast in female, estrogen receptor positive documented in this encounter Results * COMPREHENSIVE METABOLIC PANEL (11/25/2020) Blood Lj Fam MD CHEMISTRY ORDERABLES NON [facility] documented in this encounter Visit Diagnoses Diagnosis Malignant neoplasm of upper-outer quadrant of right breast in female, estrogen receptor positive documented in this encounter Care Teams Algebra Tutor Relationship Specialty Start Date End Date Orestes Flores MD [address] [place] [address] PCP - General Internal Medicine 12/09/17 07/29/24 documented as of this encounter
--- OUTSIDE RECORDS SUMMARY | 2024-11-09 18:34 | XMS_ITS | Encounter Summary ---
Author Organization [facility] Address [address] [place] [address] Care Team Providers Care Ops Analyst Name Role Phone Orestes Flores MD Primary Care Provider [phone] Reason for Referral * Outpatient Services (Routine) - Closed Specialty Diagnoses / Procedures Referred By Quinn cooper Referred To Contact Diagnoses Visit for screening mammogram Procedures MAMMO SCRN UNI LEFT W OR WO CAD Lj Fam MD [address] [place] [address] [address] Referral ID Status Reason Start Date Expiration Date Visits Requested Visits Authorized [id number] Closed Ordering Department To Schedule 11/25/2019 12/25/2020 1 1 SURANCE ANALYST Reason for Visit * Reason Comments Follow Up 6 month f/u w/prolia & labs Encounter Details Date Type Department Care Team (Late st Contact Info) Description 11/25/2019 1:30 PM REINSURANCE ANALYST Office Visit [facility] Oncology and Hematology - [address] [facility] [address] [place] [address] Lj Fam MD [address] [place] [address] Malignant neoplasm of upper-outer quadrant [...] Sign Reading Time Taken Comments Blood Pressure 104/76 11/25/2019 1:23 PM REINSURANCE ANALYST Pulse 93 11/25/2019 1:23 PM REINSURANCE ANALYST Temperature 36.8 ??C (98.2 ??F) 11/25/2019 1:23 PM CS T Respiratory Rate - - Oxygen Saturation 97% 11/25/2019 1:23 PM REINSURANCE ANALYST Inhaled Oxygen Concentration - - Weight 93 kg (205 lb) 11/25/2019 1:23 PM REINSURANCE ANALYST Height 175.3 cm (5' 9 ) 11/25/2019 1:23 PM REINSURANCE ANALYST Body Mass Index 30.27 11/25/2019 1:23 PM REINSURANCE ANALYST documented in this encounter Progress Notes * Lj Fam MD - 11/25/2019 4:41 PM CST HEMATOLOGY / ONCOLOGY PROGRESS NOTE Patient Identification: Name: Damien Pulido Age: 69 y.o. 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 She denies any night sweats fevers and chills. Weight and appetite stable. Denies any new lumps bumps or lymphadenopathy. No other new complaints today. Review of system Constitutional: denies fevers, sweats, [...] dizziness Skin: No lumps, bumps or rashes. Objective: Vital signs in last 24 hours: [...] lymphadenopathy. Left breast no masses or lymphadenopathy. [facility] Labs from November 19, 2019 showed WBC 6.7 hemoglobin 11.6 platelet 216,000 creatinine 0.8 total bilirubin 0.2 AST 50 ALT 62 CA-27-29 was 10. @IMAGEIMP@ Assessment: Plan: Patient Active Problem List Diagnosis Date Noted ??? Osteoporosis due to aromatase inhibitor 10/20/2018 ??? Screening for osteoporosis 12/21/2016 ??? 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 Diagnosed in June 2016. No evidence of relapse of disease on my examination. Labs including tumor marker came back normal. Patient will continue Femara. I will see her back in 6 months. Left breast screening mammogram will be done in June 2020. History of DVT. Patient is on Coumadin. Osteopenia. Patient is on Prolia on every 6-month basis. She will continue vitamin D and calcium. Anemia. Hemoglobin is down. I will repeat labs in 6 months. Elevated liver enzymes. Likely secondary to Aguayo. We will repeat liver enzymes in 6 months. ? TOBACCO COUNSELING She is not a tobacco user. 11/25/2019 Lj Fam MD SURANCE ANALYST documented in this encounter Plan of Treatment Upcoming Encounters Date Type Department Care Team (Late st Contact Info) Description 02/01/2025 11:00 AM CDT Office Visit [facility] Oncology and Hematology [facility] [address] [facility] [address] [place] [id number] Lj Fam MD [address] [facility] [address] [place] [address] Scheduled Orders Name Type Priority Associated Diagnoses Orde r Schedule CANCER ANTIGEN 27-29 Lab Routine Malignant neoplasm of upper-outer quadrant of right breast in female, estrogen receptor positive Expected: 05/25/2020, Expires: 11/24/2020 CBC WITH DIFFERENTIAL Lab Routine Malignant neoplasm of upper-outer quadrant of right breast in female, estrogen receptor positive Expected: 05/25/2020, Expires: 11/24/2020 COMPREHENSIVE METABOLIC PANEL Lab Routine Malignant neoplasm of upper-outer quadrant of right breast in female, estrogen receptor positive Expected: 05/25/2020, Expires: 11/24/2020 documented as of this encounter Results * MAMMO SCRN UNI LEFT W OR WO CAD (06/28/2020) Anatomical Region Laterality Modality Breast Left Other Lj Fam MD MAMMO ORDERABLES documented in this encounter Visit Diagnoses Diagnosis Malignant neoplasm of upper-outer quadrant of right breast in female, estrogen receptor positive- Primary Visit for screening mammogram Other screening mammogram documented in this encounter Care Teams Ops Analyst Relationship Specialty Start Date End Date Orestes Flores MD [address] [place] [address] PCP - General Internal Medicine 12/09/17 07/29/24 documented as of this encounter
--- OUTSIDE RECORDS SUMMARY | 2024-11-09 18:34 | XMS_ITS | Encounter Summary ---
Author Organization [facility] Address [address] [place] [address] Care Team Providers Care Retail Receiving Clerk Name Role Phone Orestes Flores MD Primary Care Provider [phone] Reason for Visit * Reason Comments Medication Refill Encounter Details Date Type Department Care Team ([facility] Contact Info) Description 07/08/2019 Refill [facility] Oncology and Hematology [place] [address] [place] [address] Lj Fam MD [address] [place] [address] [address] [place] [address] Social History Tobacco Use Types Packs/Day [...] Upcoming Encounters Date Type Department Care Team ([facility] Contact Info) Description 02/01/2025 11:00 AM CDT Office Visit [facility] Oncology and Hematology - [place] [address] [place] [address] Lj Fam MD [facility] [address] [place] [address] documented as of this encounter Visit Diagnoses Not on filedocumented in this encounter Care Teams Retail Receiving Clerk Relationship Specialty Start Date End Date Orestes Flores MD [address] [place], [place] [phone] PCP - General Internal Medicine 12/09/17 07/29/24 documented as of this encounter
--- OUTSIDE RECORDS SUMMARY | 2024-11-09 18:35 | XMS_ITS | Encounter Summary ---
Author Organization [facility] Address [address] [place] [address] Care Team Providers Care Welcome Desk Agent Name Role Phone Unavailable Primary Care Provider Unavailabl e Encounter Details Date Type Department Care Team (Late st Contact Info) Description 01/28/2017 Chart Note [facility] Radiation Therapy [address] [place] [address] [place] [address] [place] [address] Social History Tobacco Use Types Packs/Day Years Used Date Smoking Tobacco: Never Alcohol Use Standard Drinks/Week Comments Yes 0 (1 standard drink = 0.6 oz pur e alcohol) Sex and Gender Information Value Date Recorded Sex Assigned at Not on file Gender Identity Not on file Sexual Orientation Not on file documented as of this encounter Progress Notes * Chhaya Ornelas MD - 01/28/2017 9:23 AM CDT Diagnosis: Patient Active Problem List Diagnosis Date Noted ??? Screening for osteoporosis 12/21/2016 ??? 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 Acquired hypothyroidism 08/27/2016 RADIATION TREATMENT SUMMARY NOTE Damien Pulido is a 66 y.o. female with prior right breast cancer, status post breast conservation therapy in 1994, now with extensive ipsilateral breast recurrence status post neoadjuvant chemotherapy followed by right simple mastectomy with nipple/skin involvement and positive margins. She completed a course of comprehensive right chest wall irradiation between 01/07/2017 and 02/13/2017. This included a course of Tomotherapy IMRT between 01/07/2017 and 01/25/[address] [facility] in [place] followed by completion of treatment at [facility] between 01/28/2017 and 02/13/2017. A volume encompassing the right chest wall and regional lymph ndoes (internal mammary, supraclavicular and axillary apical lymph nodes) received 5040 cGy delivered in 28 daily fractions of 180 cGy each through an IMRT/Tomotherapy ([facility]) and then VMAT ([facility]). A 0.5 cmbolus was placed over the chestwall daily to ensure adequate dose to the skin surface throughout the entire treatment course. No boost dose was administered given the prior radiotherapy. CT simulation was utilized for 3-D planning and DVH analysis. Her body was immobilized in treatment position with a custom fabricated alpha-cradle. She tolerated treatment fairly well. She developed mild localized skin redness which was managed with Aquaphor. She did have a small area of superficial ulceration/wound dehiscence in the mid scar. She also developed miliaria over the eosxc-epcnw-maarogpx of the breast, which improved with OTC hydrocortisone cream. She will return for a follow-up visit in 6 weeks. Chhaya Ornelas MD documented in this encounter Plan of Treatment Upcoming Encounters Date Type Department Care Team (Late st Contact Info) Description 02/01/2025 11:00 AM CDT Office Visit [facility] Oncology and Hematology - [place] [address] [facility] [address] [place] [address] Lj Fam MD [address] [facility] [address] [place] [address] documented as of this encounter Visit Diagnoses Not on filedocumented in this encounter
--- OUTSIDE RECORDS SUMMARY | 2024-11-09 18:35 | XMS_ITS | Encounter Summary ---
Author Organization [facility] Address [address] [place] [address] Care Team Providers Care Senior Net C Developer Name Role Phone Unavailable Primary Care Provider Unavailabl e Encounter Details Date Type Department Care Team (Late Contact Info) Description 10/08/2016 Orders Only [facility] Oncology [facility] Hematology [facility] [address] [place] [address] Jennifer Nielsen RN Malignant neoplasm of female breast, unspecified laterality, unspecified site of breast (Primary Dx); Chemotherapy follow-up examination Social History Tobacco Use Types Packs/Day Years [...] CDT Office Visit [facility] Oncology [facility] [address] [place] [address] Lj Fam MD [address] [facility] [address] [place] [address] documented as of this encounter Procedures Procedure Name Priority Date/Time Associated Diagnosis Comments CBC WITH DIFFERENTIAL Routine 10/08/2016 Malignant neoplasm of female breast, unspecified laterality, unspecified site of breast Chemotherapy follow-up examination documented in this encounter Results * (ABNORMAL) CBC WITH DIFFERENTIAL (10/08/2016) Blood Lj Fam MD HEMATOLOGY ORDERABLE S EXTERNAL LAB documented in this encounter Visit Diagnoses Diagnosis Malignant neoplasm of female breast, unspecified laterality, unspecified site of breast- Primary Chemotherapy follow-up examination documented in this encounter
--- OUTSIDE RECORDS SUMMARY | 2024-11-09 18:35 | XMS_ITS | Encounter Summary ---
Author Organization [facility] Address [address] [place] [address] Care Team Providers Care Zipper Repairer Name Role Phone Unavailable Primary Care Provider Unavailabl e Reason for Visit * Reason Comments Follow Up pre chemo Encounter Details Date Type Department Care Team ([facility] st Contact Info) Description 09/13/2016 9:00 AM CDT Office Visit [facility] Oncology and Hematology - [place] [address] [facility] [address] [place] [address] Lj Fam MD [address] [facility] [address] [place] [address] Malignant neoplasm of central portion of right female breast (Primary Dx) Social History Tobacco Use [...] Sign Reading Time Taken Comments Blood Pressure 86/50 09/13/2016 8:51 AM CDT Pulse 112 09/13/2016 8:51 AM CDT Temperature 37 ??C (98.6 ??F) 09/13/2016 8:51 AM CDT Respiratory Rate 20 09/13/2016 8:51 AM CDT Oxygen Saturation - - Inhaled Oxygen Concentration - - Weight 84.6 kg (186 lb 8 oz) 09/13/2016 8:51 AM CDT Height 175.3 cm (5' 9 ) 09/13/2016 8:51 AM CDT Body Mass Index 27.54 09/13/2016 8:51 AM CDT documented in this encounter Progress Notes * Lj Fam MD - 09/13/2016 9:47 AM CDT HEMATOLOGY / ONCOLOGY PROGRESS NOTE Patient Identification: Name: Damien Pulido Age: 66 y.o. Sex: female : 1950 Subjective: HPI [...] and lobular invasive c arcinoma moderately differentiated ER/AZ positive HER-2/eleuterio negative Ki-67 less than 20%. Patient was started on neoadjuvant chemotherapy with Adriamycin and Cytoxan on July 19, 2016 her last chemotherapy which was cycle #3 on August 16, 2016. She was notified that her current oncology service does not cover her insurance. Patient is in my office for continuation of neoadjuvant chemotherapy. Interval History: Patient received last dose of chemotherapy with Adriamycin and Cytoxan 2 weeks ago. Review of system Constitutional: No fever; no night sweats; no anorexia; no weight loss; no fatique Respiratory: Complained of some shortness of breath and dyspnea on exertion along with minimal cough, complain of some sinus drainage as well. Cardiac: No cardiac-like chest pain; no palpitations; no orthopnea; no PND; GI: No abdominal pain; no nausea; no vomiting; no diarrhea; no hematochezia; no melena Musculosketetal: no bone pain; no arthralgia; no joint swelling; no myalgia; Neuro: No headache; no change in vision; no sensory changes; no muscle weakness; no confusion; no seizures Ext no edema Objective: Vital signs in last 24 hours: As per nursing note Exam: Gen: NAD , patient looks quite pale and tired Lungs: Right lung base wheezes Cardiac: S1 and S2 without murmurs or gallops Abd: Soft, tender, no hepatomegally, no masses Extr: No LE edema Scheduled Meds:@MEDSSCHEDULED@ Continuous Infusions:@MEDSINFUSIONS@ Data Review: @PATHOLOGY@ Labs from today showed WBC of 7.2 hemoglobin 8.6 and platelet count 121,000. Potassium 3.3. @IMAGEIMP@ Assessment: Plan: Patient Active Problem List Diagnosis Date Noted ??? 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 Acquired hypothyroidism 08/27/2016 Mixed ductal and lobular invasive carcinoma moderately differentiated T4, N0, M0 stage IIIB disease, status post ultrasound-guided core biopsy on June 26, 2016, ER/AZ positive HER-2/eleuterio negative Ki-67 less than 20%. MRI breast done July 04, 2016 and showed 5.6 x 5.1 cm mass in the central mid portion of the right breast. The mass appears to involve all the visible breast tissue. Extends anteriorly to the nipple. There is also mild skin enhancement representing direct invasion. PET scan doneon July 11, 2016 came back negative for metastatic disease. Patient prior to that has history of localized right-sided breast cancer in 1994 status post lumpectomy and adjuvant radiation therapy. She did not receive any adjuvant chemotherapy and hormonal therapy. Patient is currently receiving chemotherapy with Adriamycin and Cytoxan in dose dense fashion and has completed cycle 4 of chemotherapy 2 weeks. I will forward chemotherapy today due to tiredness with and fatigue along with anemia. Patient also has been dealing with upper respiratory infection. She will be back next week to resume chemotherapy with Taxol cycle #1 out of 4. Chemotherapy-induced neutropenia. Patient will receive Neulasta prophylaxis for chemotherapy-induced neutropenia. Upper respiratory infection. Patient will continue Levaquin as ordered. Dehydration. Patient will receive IV fluid with D5 normal saline along with 20 of potassium today. Hypokalemia. Patient will receive potassium today. ? 09/13/2016 Lj Fam MD documented in this encounter Plan of Treatment Upcoming Encounters Date Type Department Care Team (Late st Contact Info) Description 02/01/2025 11:00 AM CDT Office Visit [facility] Oncology and Hematology [facility] [address] [facility] [address] [place] [address] Lj Fam MD [address] [facility] [address] [place] [address] documented as of this encounter Results * (ABNORMAL) BASIC METABOLIC PANEL (09/20/2016) Blood specimen (specimen) Lj Fam MD CHEMISTRY ORDERABLES EXTERNAL LAB * (ABNORMAL) CBC WITH DIFFERENTIAL (09/20/2016) Blood specimen (specimen) Lj Fam MD HEMATOLOGY ORDERABLE S EXTERNAL LAB documented in this encounter Visit Diagnoses Diagnosis Malignant neoplasm of central portion of right female breast- Primary Malignant neoplasm of central portion of female breast documented in this encounter
--- OUTSIDE RECORDS SUMMARY | 2024-11-09 18:35 | XMS_ITS | Encounter Summary ---
Author Organization [facility] Address [address] [place] [address] Care Team Providers Care Electro Mechanical Assembler Name Role Phone Unavailable Primary Care Provider Unavailabl e Reason for Visit * Auth/Cert Specialty Diagnoses / Procedures Referred By Quinn cooper Referred To Contact Radiation Oncology [facility] Radiation Oncology [place] [address] [place] [address] Referral ID Status Reason Start Date Expiration Date Visits Re quested Visits Authorized [id number] 1 1 Encounter Details Date Type Department Care Team (Latest Contact Info) Description 01/11/2017 7:51 AM HAND PASTER - 01/11/2017 11:59 PM [facility] Hospital Encounter [facility] Radiation Therapy [address] [place] [address] [place] [address] [place] [address] Discharge Disposition: Home or Self Care Social [...] Sig Dispensed Refills Start Date End Date anastrozole (ARIMIDEX) 1 mg tablet Take 1 Tablet (1 mg) by mouth daily. 30 Tablet 11 12/18/2016 12/05/2017 potassium chloride (K-DUR) 20 mEq Extended Release tablet Take 1 Tablet (20 mEq) by mouth daily. 30 Tablet 1 12/18/2016 02/15/2017 levothyroxine 125 mcg tablet Take 77 mcg by mouth daily log haul chain feeder . 12/26/2017 perindopril erbumine (ACEON) 2 mg Tablet Take 2 mg by mouth daily. 02/25/2018 documented as of this encounter Plan of Treatment Upcoming Encounters Date Type Department Care Team (Late st Contact Info) Description 02/01/2025 11:00 AM CDT Office Visit [facility] Oncology and Hematology - [place] [address] [facility] [address] [place] [address] Lj Fam MD [address] [facility] [address] [place] [address] documented as of this encounter Visit Diagnoses Not on filedocumented in this encounter
--- OUTSIDE RECORDS SUMMARY | 2024-11-09 18:35 | XMS_ITS | Encounter Summary ---
Author Organization [facility] Address [address] [place] [address] Care Team Providers Care Pre Billing Clinician Name Role Phone Unavailable Primary Care Provider Unavailabl e Reason for Visit * Reason Comments Follow Up pre chemo Encounter Details Date Type Department Care Team ([facility] st Contact Info) Description 10/03/2016 9:00 AM LIFE ENRICHMENT MANAGER Office Visit [facility] Oncology and Hematology - [place] [address] [place] [address] [facility] [address] [place] [address] [place] [address] [place] [address] [address] [place] [address] Malignant neoplasm of central portion [...] Sign Reading Time Taken Comments Blood Pressure 90/60 10/03/2016 9:01 AM LIFE ENRICHMENT MANAGER Pulse 88 10/03/2016 9:01 AM LIFE ENRICHMENT MANAGER Temperature 37 ??C (98.6 ??F) 10/03/2016 9:01 AM LIFE ENRICHMENT MANAGER Respiratory Rate 18 10/03/2016 9:01 AM LIFE ENRICHMENT MANAGER Oxygen Saturation - - Inhaled Oxygen Concentration - - Weight 81.9 kg (180 lb 8 oz) 10/03/2016 9:01 AM LIFE ENRICHMENT MANAGER Height 175.3 cm (5' 9 ) 10/03/2016 9:01 AM LIFE ENRICHMENT MANAGER Body Mass Index 26.66 10/03/2016 9:01 AM LIFE ENRICHMENT MANAGER documented in this encounter Progress Notes * Lj Fam MD - 10/03/2016 9:00 AM CST HEMATOLOGY / ONCOLOGY PROGRESS NOTE [...] and lobular invasive c arcinoma moderately differentiated ER/NV positive HER-2/eleuterio negative Ki-67 less than 20%. Patient was started on neoadjuvant chemotherapy with Adriamycin and Cytoxan on July 19, 2016 her last chemotherapy which was cycle #3 on August 16, 2016. She was notified that her current oncology service does not cover her insurance. Patient is in my office for continuation of neoadjuvant chemotherapy. Interval History: Complain of some hip pain which has resolved now. She denies any new complaints. Review of system Constitutional: No fever; no night sweats; no anorexia; no weight loss; complain of some tiredness and fatigue Respiratory: No shortness of breath; no pleuritic chest pain; no cough; no hemoptysis Cardiac: No cardiac-like chest pain; no palpitations; no orthopnea; no PND; no BE GI: No abdominal pain; no nausea; no vomiting; no diarrhea; no hematochezia; no melena Musculosketetal: Complain of bone pain; no arthralgia; no joint swelling; no myalgia; Neuro: No headache; no change in vision; neuropathy involving the feet; no muscle weakness; no confusion; no seizures Ext no edema Objective: Vital signs in last 24 hours: As per nursing note Exam: Gen: NAD Lungs: Clear Cardiac: S1 and S2 without murmurs or gallops Abd: Soft, tender, no hepatomegally, no masses Extr: No LE edema Scheduled Meds:@MEDSSCHEDULED@ Continuous Infusions:@MEDSINFUSIONS@ Data Review: @PATHOLOGY@ Labs from today showed WAC 18.1 hemoglobin 10.0 and platelet count of 212,000, sodium 137 potassium3.7. Assessment: Plan: Patient Active Problem List Diagnosis Date Noted ??? 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 MRI breast done July 04, 2016 and showed 5.6 x 5.1 cm mass in the central mid portion of the right breast. ?? PET scan done on July 11, 2016 came back negative for metastatic disease. Patient prior to that has history of localized right-sided breast cancer in 1994 status post lumpectomy and adjuvant radiation therapy. She did not receive any adjuvant chemotherapy and hormonal therapy. ?? Patient has completed neoadjuvant chemotherapy with dose dense Adriamycin and Cytoxan. Patient willstart cycle 2 of 4 of dose dense Taxol today. Her CBC looks is stable. The first she has been tolerating Taxol fairly well. Patient does have some neuropathy. ??I have discussed with Dr. Llamas in surgery regarding surgical management after completion of chemotherapy which would be 4 more weeks from today. Anemia secondary to chemotherapy. Hemoglobin is 10 today. ?? Chemotherapy-induced neutropenia. We will hold Neulasta today as WAC count is 18,000. We will continue to hold Neulasta for WBC count of more than 15,000. ??I will see her back in 2 weeks. ? 10/03/2016 Lj Fam MD ENRICHMENT MANAGER documented in this encounter Plan of Treatment Upcoming Encounters Date Type Department Care Team (Late st Contact Info) Description 02/01/2025 11:00 AM CDT Office Visit [facility] Oncology and Hematology [place] [address] [address] [place] [address] Lj Fam MD [address] [address] documented as of this encounter Visit Diagnoses Diagnosis Malignant neoplasm of central portion of right female breast- Primary Malignant neoplasm of central portion of female breast documented in this encounter
--- OUTSIDE RECORDS SUMMARY | 2024-11-09 18:35 | XMS_ITS | Encounter Summary ---
Author Organization [facility] Address [address] [place] [address] Care Team Providers Care Engine Boss Name Role Phone Unavailable Primary Care Provider Unavailabl e Reason for Visit * Reason Comments Follow Up pre chemo * Eval and Treat (Routine) - Closed Specialty Diagnoses / Procedures Referred By Quinn cooper Referred To Contact Hematology and Oncology / Oncology Diagnoses follow up labs 1 wk Procedures FOLLOW UP Lorri Fontanez DO NO ADDRESS ON FILE Lj Fam MD [address] [address] Referral ID Status Reason Start Date Expiration Date Visits Re quested Visits Authorized [id number] Closed 09/20/2016 10/21/2017 1 1 Encounter Details Date Type Department Care Team ([facility] st Contact Info) Description 09/20/2016 9:00 AM MUSIC HISTORIAN Office Visit [facility] Oncology and Hematology - [place] [address] [place] [address] [address] [place] [address] Lj Fam MD [address] [place] [address] Malignant neoplasm of central portion of [...] Sign Reading Time Taken Comments Blood Pressure 88/60 09/20/2016 8:52 AM MUSIC HISTORIAN Pulse 84 09/20/2016 8:52 AM MUSIC HISTORIAN Temperature 36.7 ??C (98.1 ??F) 09/20/2016 8:52 AM CS T Respiratory Rate 18 09/20/2016 8:52 AM MUSIC HISTORIAN Oxygen Saturation - - Inhaled Oxygen Concentration - - Weight 81.1 kg (178 lb 12.8 oz) 09/20/2016 8:52 AM MUSIC HISTORIAN Height 175.3 cm (5' 9 ) 09/20/2016 8:52 AM MUSIC HISTORIAN Body Mass Index 26.4 09/20/2016 8:52 AM MUSIC HISTORIAN documented in this encounter Progress Notes * Lj Fam MD - 09/20/2016 11:18 AM CST HEMATOLOGY / ONCOLOGY PROGRESS NOTE [...] and lobular invasive c arcinoma moderately differentiated ER/MN positive HER-2/eleuterio negative Ki-67 less than 20%. Patient was started on neoadjuvant chemotherapy with Adriamycin and Cytoxan on July 19, 2016 her last chemotherapy which was cycle #3 on August 16, 2016. She was notified that her current oncology service does not cover her insurance. Patient is in my office for continuation of neoadjuvant chemotherapy. Interval History: Last chemotherapy was held due to upper respiratory infection and anemia. Patient is now feeling much better. Review of system Constitutional: No fever; no [...] Scheduled Meds:@MEDSSCHEDULED@ Continuous Infusions:@MEDSINFUSIONS@ Data Review: @PATHOLOGY@ No results found for: WBC, HGB, HCT, MCV, PLT @IMAGEIMP@ Assessment: Plan: Patient Active Problem List Diagnosis Date Noted ??? 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 MRI breast done July 04, 2016 and showed 5.6 x 5.1 cm mass in the central mid portion of the right breast. PET scan done on July 11, 2016 came back negative for metastatic disease. Patient prior to that has history of localized right-sided breast cancer in 1995 status post lumpectomy and adjuvant radiation therapy. She did not receive any adjuvant chemotherapy and hormonal therapy. Patient has completed neoadjuvant chemotherapy with dose dense Adriamycin and Cytoxan. Patient willstart cycle one of 4 of dose dense Taxol today. Her CBC looks is stable. Anemia secondary to chemotherapy. Hemoglobin is 10 today. Chemotherapy-induced neutropenia. Patient will continue prophylaxis with Neulasta. 09/20/2016 Lj Fam MD C HISTORIAN documented in this encounter Plan of Treatment Upcoming Encounters Date Type Department Care Team (Late st Contact Info) Description 02/01/2025 11:00 AM CDT Office Visit [facility] Oncology and Hematology [facility] [address] [facility] [place] [address] Lj Fam MD [address] [facility] [address] [place] [address] documented as of this encounter Visit Diagnoses Diagnosis Malignant neoplasm of central portion of right female breast- Primary Malignant neoplasm of central portion of female breast documented in this encounter
--- OUTSIDE RECORDS SUMMARY | 2024-11-09 18:35 | XMS_ITS | Encounter Summary ---
Author Organization [facility] Address [address] [place] [address] Care Team Providers Care Oil Painter Name Role Phone Unavailable Primary Care Provider Unavailabl e Encounter Details Date Type Department Care Team (Late st Contact Info) Description 08/29/2016 Orders Only [facility] Oncology and Hematology - [place] [address] [place] [address] Jennifer Nielsen RN Hypercoagulable state Social History [...] [facility] Oncology and Hematology - [place] [address] [place] [address] [place] [address] [place] [address] [address] [place] [address] documented as of this encounter Visit Diagnoses Diagnosis Hypercoagulable state Primary hypercoagulable state documented in this encounter
--- OUTSIDE RECORDS SUMMARY | 2024-11-09 18:35 | XMS_ITS | Encounter Summary ---
Author Organization [facility] Address [address] [place] [address] Care Team Providers Care Clinical Quality Manager Name Role Phone Unavailable Primary Care Provider Unavailabl e Encounter Details Date Type Department Care Team (Late st Contact Info) Description 09/12/2016 Orders Only [facility] Oncology and Hematology - [place] [address] [place] [address] Jennifer Nielsen RN Social History Tobacco Use Types Packs/Day Years [...] Description 02/01/2025 11:00 AM CDT Office Visit [facility] Oncology and Hematology - [place] [address] [place] [address] [place] [address] [place] [address] [address] [place] [address] documented as of this encounter Visit Diagnoses Not on filedocumented in this encounter
--- OUTSIDE RECORDS SUMMARY | 2024-11-09 18:35 | XMS_ITS | Encounter Summary ---
Author Organization [facility] Address [address] [place] [address] Care Team Providers Care Clock Mechanic Name Role Phone Unavailable Primary Care Provider Unavailabl e Encounter Details Date Type Department Care Team (Late Contact Info) Description 10/31/2016 Orders Only [facility] Oncology and Hematology [facility] [address] [place] [address] Jennifer Nielsen RN Hypercoagulable state; [...] Office Visit [facility] Oncology [facility] [address] [place] [address] Lj Fam MD [address] [facility] [address] [place] [address] documented as of this encounter Procedures Procedure Name Priority Date/Time Associated Diagnosis Comments CBC WITH DIFFERENTIAL Routine 10/31/2016 Hypercoagulable state Malignant neoplasm of upper-outer quadrant of right female breast COMPREHENSIVE METABOLIC PANEL Routine 10/31/2016 Hypercoagulable state Malignant neoplasm of upper-outer quadrant of right female breast documented in this encounter Results * (ABNORMAL) COMPREHENSIVE METABOLIC PANEL (10/31/2016) Blood specimen (specimen) Lj Fam MD CHEMISTRY ORDERABLES Performing Organization Address City/[facility] Co de Phone Number EXTERNAL LAB * (ABNORMAL) CBC WITH DIFFERENTIAL (10/31/2016) Blood specimen (specimen) Lj Fam MD HEMATOLOGY ORDERABLE S Performing Organization Address [facility] Co de Phone Number EXTERNAL LAB documented in this encounter Visit Diagnoses Diagnosis Hypercoagulable state Primary hypercoagulable state Malignant neoplasm of upper-outer quadrant of right female breast Malignant neoplasm of upper-outer quadrant of female breast documented in this encounter
--- OUTSIDE RECORDS SUMMARY | 2024-11-09 18:35 | XMS_ITS | Encounter Summary ---
Author Organization [facility] Address [address] [place] [address] Care Team Providers Care Drop Pit Worker Name Role Phone Unavailable Primary Care Provider Unavailabl e Reason for Visit * Auth/Cert Specialty Diagnoses / Procedures Referred By Quinn cooper Referred To Contact Radiation Oncology [facility] Radiation Oncology [place] [address] [place] [address] Referral ID Status Reason Start Date Expiration Date Visits Re quested Visits Authorized [id number] 1 1 Encounter Details Date Type Department Care Team (Latest Contact Info) Description 01/25/2017 7:56 AM CDT - 01/25/2017 11:59 PM CDT Hospital Encounter [facility] Radiation Therapy [address] [place] [address] [place] [address] [place] [address] Discharge Disposition: Home or Self [...] tablet Take 77 mcg by mouth daily parts order and stock clerk . 12/26/2017 perindopril erbumine (ACEON) 2 mg Tablet Take 2 mg by mouth daily. 02/25/2018 documented as of this encounter Plan of Treatment Upcoming Encounters Date Type Department Care Team (Late st Contact Info) Description 02/01/2025 11:00 AM CDT Office Visit [facility] Oncology and Hematology - [place] [address] [facility] [address] [place] [address] Lj Fam MD 2[address] [facility] [address] [place] [address] documented as of this encounter Visit Diagnoses Not on filedocumented in this encounter
--- OUTSIDE RECORDS SUMMARY | 2024-11-09 18:35 | XMS_ITS | Encounter Summary ---
Author Organization [facility] Address [address] [place] [address] Care Team Providers Care Carton Wrapper Name Role Phone Unavailable Primary Care Provider Unavailabl e Reason for Visit * Auth/Cert Specialty Diagnoses / Procedures Referred By Quinn cooper Referred To Contact Radiation Oncology [facility] Radiation Oncology [place] [address] [place] [address] Referral ID Status Reason Start Date Expiration Date Visits Re quested Visits Authorized [id number] 1 1 Encounter Details Date Type Department Care Team (Latest Contact Info) Description 01/07/2017 8:00 AM PAN RECLAIM PROCESSOR - 01/07/2017 11:59 PM [facility] Hospital Encounter [facility] Radiation Therapy [address] [place] [address] [place] [address] [place] [address] Discharge Disposition: Home or Self [...] tablet Take 77 mcg by mouth daily radiologist physician . 12/26/2017 perindopril erbumine (ACEON) 2 mg Tablet Take 2 mg by mouth daily. 02/25/2018 documented as of this encounter Procedure Notes * Chas Vega MD - 01/07/2017 9:43 AM CST Procedure Date: 01/07/2017 ISOCENTER VERIFICATION SIMULATION PURPOSE: Ms. Pulido initially underwent virtual CT simulation. A simple simulation was performed on the linear accelerator utilizing the integrated MVCT for isocenter verification prior to treatment delivery of the first fraction. EQUIPMENT USED: Simulation was performed on the Tomotherapy linear accelerator. PROCEDURE DETAILS: This simulation was performed prior to the first radiation fraction to the Right chestwall. The patient was placed on the treatment couch with her body immobilized using a custom fabricated alpha-cradle in treatment position and aligned to the 3-point setup tattoos. An MVCT was acquired through thetreatment area. The MVCT images were fused and aligned to the treatment planning CT image set. I reviewed the CT alignment images and made any necessary adjustments. Couch shifts were calculated in order to bring the patient into precise alignment prior to treatment delivery. ASSESSMENT: The isocenter alignment process was successful. ORDERS: Proceed with treatment as planned. Chas Vega MD RECLAIM PROCESSOR documented in this encounter Plan of Treatment Upcoming Encounters Date Type Department Care Team (Late st Contact Info) Description 02/01/2025 11:00 AM CDT Office Visit [facility] Oncology and Hematology - [place] [address] [facility] [address] [place] [address] Lj Fam MD [address] [facility] [address] [place] [address] documented as of this encounter Visit Diagnoses Not on filedocumented in this encounter
--- OUTSIDE RECORDS SUMMARY | 2024-11-09 18:35 | XMS_ITS | Encounter Summary ---
Author Organization [facility] Address [address] [place] [address] Care Team Providers Care Securities Adviser Name Role Phone Unavailable Primary Care Provider Unavailabl e Encounter Details Date Type Department Care Team (Late Contact Info) Description 10/03/2016 Orders Only [facility] Oncology and Hematology [facility] [address] [place] [address] Jennifer Nielsen RN Hypercoagulable state; [...] Office Visit [facility] Oncology [facility] [address] [place] [address] Lj Fam MD [address] [facility] [address] [place] [address] documented as of this encounter Procedures Procedure Name Priority Date/Time Associated Diagnosis Comments CBC WITH DIFFERENTIAL Routine 10/03/2016 Hypercoagulable state Malignant neoplasm of upper-outer quadrant of right female breast COMPREHENSIVE METABOLIC PANEL Routine 10/03/2016 Hypercoagulable state Malignant neoplasm of upper-outer quadrant of right female breast documented in this encounter Results * (ABNORMAL) COMPREHENSIVE METABOLIC PANEL (10/03/2016) Blood specimen (specimen) Lj Fam MD CHEMISTRY ORDERABLES Performing Organization Address City/[facility] Co de Phone Number EXTERNAL LAB * (ABNORMAL) CBC WITH DIFFERENTIAL (10/03/2016) Blood specimen (specimen) Lj Fam MD HEMATOLOGY ORDERABLE S Performing Organization Address City/[facility] Co de Phone Number EXTERNAL LAB documented in this encounter Visit Diagnoses Diagnosis Hypercoagulable state Primary hypercoagulable state Malignant neoplasm of upper-outer quadrant of right female breast Malignant neoplasm of upper-outer quadrant of female breast documented in this encounter
--- OUTSIDE RECORDS SUMMARY | 2024-11-09 18:35 | XMS_ITS | Encounter Summary ---
Author Organization [facility] Address [address] [place] [address] Care Team Providers Care Surface Miner Name Role Phone Unavailable Primary Care Provider Unavailabl e Reason for Visit * Auth/Cert Specialty Diagnoses / Procedures Referred By Quinn cooper Referred To Contact Radiation Oncology [facility] Radiation Oncology [place] [address] [place] [address] Referral ID Status Reason Start Date Expiration Date Visits Re quested Visits Authorized [id number] 1 1 Encounter Details Date Type Department Care Team (Latest Contact Info) Description 01/15/2017 8:00 AM PATHOLOGY MANAGER - 01/15/2017 11:59 PM [facility] Hospital Encounter [facility] Radiation Therapy [address] [place] [address] [place] [address] [place] [address] Discharge Disposition: Home or Self [...] tablet Take 77 mcg by mouth daily foot doctor . 12/26/2017 perindopril erbumine (ACEON) 2 mg Tablet Take 2 mg by mouth daily. 02/25/2018 documented as of this encounter Plan of Treatment Upcoming Encounters Date Type Department Care Team (Late st Contact Info) Description 02/01/2025 11:00 AM CDT Office Visit [facility] Oncology and Hematology - [place] [address] [facility] [address] [place] [address] Lj Fam MD 2[address] [facility] [address] [place] [address] documented as of this encounter Visit Diagnoses Not on filedocumented in this encounter
--- OUTSIDE RECORDS SUMMARY | 2024-11-09 18:35 | XMS_ITS | Encounter Summary ---
Author Organization [facility] Address [address] [place] [address] Care Team Providers Care It Security Engineer Name Role Phone Unavailable Primary Care Provider Unavailabl e Reason for Visit * Auth/Cert Specialty Diagnoses / Procedures Referred By Quinn cooper Referred To Contact Radiation Oncology [facility] Radiation Oncology [place] [address] [place] [address] Referral ID Status Reason Start Date Expiration Date Visits Re quested Visits Authorized [id number] 1 1 Encounter Details Date Type Department Care Team (Latest Contact Info) Description 01/14/2017 8:00 AM SALES OPERATIONS CONSULTANT - 01/14/2017 11:59 PM [facility] Hospital Encounter [facility] Radiation Therapy [address] [place] [address] [place] [address] [place] [address] Discharge Disposition: Home or Self [...] tablet Take 77 mcg by mouth daily baseball glove shaper . 12/26/2017 perindopril erbumine (ACEON) 2 mg Tablet Take 2 mg by mouth daily. 02/25/2018 documented as of this encounter Plan of Treatment Upcoming Encounters Date Type Department Care Team (Late st Contact Info) Description 02/01/2025 11:00 AM CDT Office Visit [facility] Oncology and Hematology - [place] [address] [facility] [address] [place] [address] Lj Fam MD [address] [facility] [address] [place] [address] documented as of this encounter Visit Diagnoses Not on filedocumented in this encounter
--- OUTSIDE RECORDS SUMMARY | 2024-11-09 18:35 | XMS_ITS | Encounter Summary ---
Author Organization [facility] Address [address] [place] [address] Care Team Providers Care Greeting Card Writer Name Role Phone Unavailable Primary Care Provider Unavailabl e Reason for Visit * Auth/Cert Specialty Diagnoses / Procedures Referred By Quinn cooper Referred To Contact Radiation Oncology [facility] Radiation Oncology [place] [address] [place] [address] Referral ID Status Reason Start Date Expiration Date Visits Re quested Visits Authorized [id number] 1 1 Encounter Details Date Type Department Care Team (Latest Contact Info) Description 01/18/2017 8:00 AM SHELL PLATER - 01/18/2017 11:59 PM [facility] Hospital Encounter [facility] Radiation Therapy [address] [place] [address] [place] [address] [place] [address] Discharge Disposition: Home or Self [...] tablet Take 77 mcg by mouth daily 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 12/26/2017 perindopril erbumine (ACEON) 2 mg Tablet Take 2 mg by mouth daily. 02/25/2018 documented as of this encounter Plan of Treatment Upcoming Encounters Date Type Department Care Team (Late st Contact Info) Description 02/01/2025 11:00 AM CDT Office Visit [facility] Oncology and Hematology - [place] [address] [facility] [address] [place] [address] Lj Fam MD [address] [facility] [address] [place] [address] documented as of this encounter Visit Diagnoses Not on filedocumented in this encounter
--- OUTSIDE RECORDS SUMMARY | 2024-11-09 18:35 | XMS_ITS | Encounter Summary ---
Author Organization [facility] Address [address] [place] [address] Care Team Providers Care Supervisor Functional Testing Name Role Phone Unavailable Primary Care Provider Unavailabl e Encounter Details Date Type Department Care Team (Late Contact Info) Description 12/21/2016 Orders Only [facility] Oncology and Hematology - Jose [address] [place] [address] [facility] [address] [place] [address] Screening for osteoporosis (Primary Dx) Social History Tobacco Use Types [...] 02/01/2025 11:00 AM CDT Office Visit [facility] Oncology and Hematology - [place] [address] [place] [address] Lj Fam MD [address] [place] [address] documented as of this encounter Visit Diagnoses Diagnosis Screening for osteoporosis- Primary Special screening for osteoporosis documented in this encounter
--- OUTSIDE RECORDS SUMMARY | 2024-11-09 18:35 | XMS_ITS | Encounter Summary ---
Author Organization [facility] Address [address] [place] [address] Care Team Providers Care Garment Parts Cutter Machine Name Role Phone Unavailable Primary Care Provider Unavailabl e Reason for Referral * Outpatient Services (Routine) - Closed Specialty Diagnoses / Procedures Referred By Quinn t Referred To Contact Procedures XR DEXA BONE DENSITY AXIAL 1 OR MORE SITES Lj Fam MD [address] [place] [address] [address] Referral ID Status Reason Start Date Expiration Date Visits Re quested Visits Authorized [id number] Closed 12/18/2016 01/18/2018 1 1 ING SPECIALIST Reason for Visit * Reason Comments Follow Up Encounter Details Date Type Department Care Team (Late st Contact Info) Description 12/18/2016 9:00 AM RUNNING SPECIALIST Office Visit [facility] Oncology and Hematology - Jose [facility] [address] [address] Lj Fam MD [address] [place] [address] Malignant neoplasm of female breast, unspecified laterality, unspecified site of breast (Primary Dx); Screening for osteoporosis Social History Tobacco Use Types Packs/Day Years [...] Sign Reading Time Taken Comments Blood Pressure 89/61 12/18/2016 9:08 AM RUNNING SPECIALIST Pulse 90 12/18/2016 9:08 AM RUNNING SPECIALIST Temperature 36.7 ??C (98.1 ??F) 12/18/2016 9:08 AM CS T Respiratory Rate 18 12/18/2016 9:08 AM RUNNING SPECIALIST Oxygen Saturation - - Inhaled Oxygen Concentration - - Weight 79 kg (174 lb 1.6 oz) 12/18/2016 9:08 AM RUNNING SPECIALIST Height 175.3 cm (5' 9 ) 12/18/2016 9:08 AM RUNNING SPECIALIST Body Mass Index 25.71 12/18/2016 9:08 AM RUNNING SPECIALIST documented in this encounter Progress Notes * Lj Fam MD - 12/18/2016 10:17 AM CST HEMATOLOGY / ONCOLOGY PROGRESS NOTE [...] and lobular invasive c arcinoma moderately differentiated ER/WV positive HER-2/eleuterio negative Ki-67 less than 20%. [...] on October 31, 2016. Interval History: Patient had right-sided mastectomy done on November 20 2016. Review of system Constitutional: No fever; no night sweats; no anorexia; no weight loss; complain of tiredness and fatigue Respiratory: No shortness of [...] no masses Extr: No LE edema Right breast mastectomy site healing well with scab formation without any drainage and discharge. Scheduled Meds:@MEDSSCHEDULED@ Continuous Infusions:@MEDSINFUSIONS@ Data Review: @PATHOLOGY@ Hemoglobin 11.7, potassium 3.4 @IMAGEIMP@ Assessment: Plan: Patient Active Problem List Diagnosis Date Noted ??? 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 [...] that showed positive superior and inferior margins. Discussed with Dr. Llamas and Dr. Ornelas. Plan is to start radiation therapy. I will start her on Arimidex 1 mg daily as well. We will also order bone density testing. Patient will continue vitamin D. I will add calcium. ?? Chemotherapy-induced neuropathy. Patient will continue Neurontin as ordered. Hypokalemia. We will prescribe potassium 20 mg once a day. Anemia secondary to chemotherapy. Hemoglobin 11.7 today. We will repeat CBC in 4 weeks Follow-up in 4 weeks with repeat CBC and BMP ? 12/18/2016 Lj Fam MD ING SPECIALIST documented in this encounter Plan of Treatment Upcoming Encounters Date Type Department Care Team (Late st Contact Info) Description 02/01/2025 11:00 AM CDT Office Visit [facility] Oncology and Hematology [facility] [place] [address] [facility] [address] [place] [address] Lj Fam MD [address] [facility] [address] [place] [address] documented as of this encounter Results * BASIC METABOLIC PANEL (01/15/2017) Blood Lj Fam MD CHEMISTRY ORDERABLES Performing Organization Address [facility] Co de Phone Number EXTERNAL LAB * CBC WITH DIFFERENTIAL (01/15/2017) Blood Lj Fam MD HEMATOLOGY ORDERABLE S Performing Organization Address City/[facility]/ZIP Co de Phone Number EXTERNAL LAB * XR DEXA BONE DENSITY AXIAL 1 OR MORE SITES (01/02/2017) Anatomical Region Laterality Modality Other Lj Fam MD DIAGNOSTIC IMAGING O RDERABLES documented in this encounter Visit Diagnoses Diagnosis Malignant neoplasm of female breast, unspecified laterality, unspecified site of breast- Primary Screening for osteoporosis Special screening for osteoporosis documented in this encounter
--- OUTSIDE RECORDS SUMMARY | 2024-11-09 18:35 | XMS_ITS | Encounter Summary ---
Author Organization [facility] Address [address] [place] [address] Care Team Providers Care Asset Protection Detective Name Role Phone Unavailable Primary Care Provider Unavailabl e Reason for Visit * Auth/Cert Specialty Diagnoses / Procedures Referred By Quinn cooper Referred To Contact Radiation Oncology [facility] Radiation Oncology [place] [address] [place] [address] Referral ID Status Reason Start Date Expiration Date Visits Re quested Visits Authorized [id number] 1 1 Encounter Details Date Type Department Care Team (Latest Contact Info) Description 01/24/2017 8:00 AM CDT - 01/24/2017 11:59 PM CDT Hospital Encounter [facility] Radiation Therapy [address] [place] [address] [place] [address] [place] [address] Discharge Disposition: Home or Self [...] tablet 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 12/26/2017 perindopril erbumine (ACEON) 2 mg Tablet Take 2 mg by mouth daily. 02/25/2018 documented as of this encounter Plan of Treatment Upcoming Encounters Date Type Department Care Team (Late st Contact Info) Description 02/01/2025 11:00 AM CDT Office Visit [facility] Oncology and Hematology - [place] [address] [facility] [address] [place] [address] Lj Fam MD [address] [facility] [address] [place] [address] documented as of this encounter Visit Diagnoses Not on filedocumented in this encounter
--- OUTSIDE RECORDS SUMMARY | 2024-11-09 18:35 | XMS_ITS | Encounter Summary ---
Author Organization [facility] Address [address] [place] [address] Care Team Providers Care Resident Care Manager Name Role Phone Unavailable Primary Care Provider Unavailabl e Reason for Visit * Auth/Cert Specialty Diagnoses / Procedures Referred By Quinn cooper Referred To Contact Radiation Oncology [facility] Radiation Oncology [place] [address] [place] [address] Referral ID Status Reason Start Date Expiration Date Visits Re quested Visits Authorized [id number] 1 1 Encounter Details Date Type Department Care Team (Latest Contact Info) Description 01/16/2017 7:40 AM IMPROVEMENT LEAD - 01/16/2017 11:59 PM [facility] Hospital Encounter [facility] Radiation Therapy [address] [place] [address] [place] [address] [place] [address] Discharge Disposition: Home or Self [...] tablet 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 12/26/2017 perindopril erbumine (ACEON) 2 mg Tablet Take 2 mg by mouth daily. 02/25/2018 documented as of this encounter Progress Notes * Chhaya Ornelas MD - 01/16/2017 8:30 AM CST RADIATION ONCOLOGY ON-TREATMENT VISIT DATE: 01/16/2017 IDENTIFYING DATA: Damien Pulido is a 66 y.o. female with prior right breast cancer, status post breast conservation therapy in 1994, now with extensive ipsilateral breast recurrence status post neoadjuvant chemotherapy followed by right simple mastectomy with nipple/skin involvement and positive margins. She presents now for initiation of adjuvant radiation treatment. SITE: Right Chest Wall (prior RT) DOSE: 1440 cGy of 5040 cGy (2700 cGy at [facility]) FRACTION: 8 of 28 HISTORY: No complaints other than some fatigue. Using lotion. EXAM: Mild erythema. ASSESSMENT/PLAN: Tolerating radiotherapy well. Imaging checked. Instructed on routine skin care. Continue radiation therapy as planned. I willn see her next week at [facility]. Chhaya Ornelas MD OVEMENT LEAD documented in this encounter Miscellaneous Notes * Care Plan - Bree Eisenberg RN - 01/16/2017 9:01 AM CST Problem: External Beam Radiation (Adult) Goal: Prevent/Manage Potential Problems Signs and symptoms of listed problems will be absent or manageable. Outcome: Deactivate Date Met: 01/16/17 01/16/17 0855 External Beam Radiation External Beam Radiation: Problems Assessed fatigue;skin reaction External Beam Radiation: Problems Present none Continues with small scabbed area on mastectomy scar. Will follow with Dr. Ornelas @ [facility] stating week January 21 OVEMENT LEAD documented in this encounter Plan of Treatment Upcoming Encounters Date Type Department Care Team (Late st Contact Info) Description 02/01/2025 11:00 AM CDT Office Visit [facility] Oncology and Hematology - [place] [address] [place] [address] Lj Fam MD [address] [facility] [address] [place] [address] documented as of this encounter Visit Diagnoses Not on filedocumented in this encounter
--- OUTSIDE RECORDS SUMMARY | 2024-11-09 18:35 | XMS_ITS | Encounter Summary ---
Author Organization [facility] Address [address] [place] [address] Care Team Providers Care Parking Lot Manager Name Role Phone Unavailable Primary Care Provider Unavailabl e Encounter Details Date Type Department Care Team (Late Contact Info) Description 01/02/2017 Orders Only [facility] Oncology and Hematology [place] [address] [place] [address] Lj Fam MD [address] [place] [address] [employer] [address] [place] [id number] Social History Tobacco Use Types Packs/Day Years [...] [facility] Oncology and Hematology - Jose [address] [place] [address] Lj Fam MD [facility] [address] [place] [address] documented as of this encounter Procedures Procedure Name Priority Date/Time Associated Diagnosis Comments XR DEXA BONE DENSITY AXIAL 1 OR MORE SITES Routine 01/02/2017 documented in this encounter Results * XR DEXA BONE DENSITY AXIAL 1 OR MORE SITES (01/02/2017) Anatomical Region Laterality Modality Other Lj Fam MD DIAGNOSTIC IMAGING O RDERABLES documented in this encounter Visit Diagnoses Not on filedocumented in this encounter
--- OUTSIDE RECORDS SUMMARY | 2024-11-09 18:35 | XMS_ITS | Encounter Summary ---
Author Organization [facility] Address [address] [place] [address] Care Team Providers Care Social Work Coordinator Name Role Phone Unavailable Primary Care Provider Unavailabl e Reason for Visit * Auth/Cert Specialty Diagnoses / Procedures Referred By Quinn cooper Referred To Contact Radiation Oncology [facility] Radiation Oncology [place] [address] [place] [address] Referral ID Status Reason Start Date Expiration Date Visits Re quested Visits Authorized [id number] 1 1 Encounter Details Date Type Department Care Team (Latest Contact Info) Description 12/26/2016 1:12 PM HEAD LIBRARIAN - 12/26/2016 11:59 PM [facility] Hospital Encounter [facility] Radiation Therapy [address] [place] [address] [place] [address] [place] [address] Discharge Disposition: Home or Self [...] tablet 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 12/26/2017 perindopril erbumine (ACEON) 2 mg Tablet Take 2 mg by mouth daily. 02/25/2018 documented as of this encounter Progress Notes * Chhaya Ornelas MD - 12/26/2016 2:04 PM CST Radiation Oncology Follow-up Note DATE: 12/26/2016 IDENTIFYING DATA Damien Pulido is a 66 y.o. female with prior right breast cancer, status post breast conservation therapy in 1994, now with extensive ipsilateral breast recurrence status post neoadjuvant chemotherapy followed by right simple mastectomy with nipple/skin involvement and positive margins. She presents now for initiation of adjuvant radiation treatment. INTERVAL HISTORY She denies new problems and is healing well. PHYSICAL EXAMINATION GENERAL: Damien appears well today and is in no apparent distress. She is alert and oriented x3. VITAL SIGNS: There were no vitals taken for this visit. BREASTS: s/p mastectomy. No skin rash or nodularity. Healing incision - small linear eschar still present. ASSESSMENT/PLAN Damien is ready to proceed with radiation therapy. We will perform her CT simulation today and initiate treatment planning. The plan is to start treatments on 01/07/2017 here at [facility]. She will likely transition to [facility] in [place], [place] starting 01/28/2017. Informed consent was obtained. Chhaya Ornelas MD LIBRARIAN documented in this encounter Procedure Notes * Chhaya Ornelas MD - 12/26/2016 3:44 PM CST Procedure Date: 12/26/[address] SIMULATION PROCEDURE PURPOSE: The patient is undergoing a virtual CT simulation for external beam radiation treatment planning. Today???s 4D-CT dataset will be utilized for intensity modulated treatment planning (IMRT). TREATMENT SITE(S): Right Chest Wall (prior RT) NUMBER OF AREAS OR RODRIGUEZ: One treatment area was simulated today. NUMBER OF PORTS: IMRT using multiple static gantry angles, arcs, or helical tomotherapy will be needed to cover the treatment volume and adequately protect nearby critical normal tissues. The number of ports will be determined during the treatment planning process. EQUIPMENT USED: Simulation was performed on the department???s dedicated CT simulator. IMMOBILIZATION: An alpha cradle device was fabricated to immobilize the patient???s body in treatment position. CONTRAST MEDIA: The use of contrast was not required for this simulation. EXTERNAL MARKERS: No external markers were used. TATTOOS: Positioning tattoos were applied to the patient???s skin BLOCKING: An intensity map generated by multiple MLC-shaped beamlets of complex design will be constructed aspart of an IMRT treatment plan. COMPENSATING FILTER / WEDGE: None ISODOSE PLAN: An IMRT treatment plan will be performed to precisely deliver a specified dose to the treatment volume with narrow margins and to protect adjacent critical normal tissues from receiving excessive radiation exposure. SCHEDULING Prior to delivering the first radiation fraction, a simulation will be performed on the linear accelerator utilizing electronic portal imaging to verify the isocenter location and block design. DAILY IMAGE GUIDANCE: Utilizing the integrated CT scanner on the [employer] or [employer] treatment machine, CT images through the treatment volume will be acquired daily prior to treatment to ensure precise patient positioning, thus allowing treatment of the tumor with narrow margins. MEDICAL NECESSITY FOR IMRT TREATMENT PLANNING: Dose escalation is planned to deliver radiation doses in excess of those commonly utilized with conventional treatments. The target volume is in close proximity to critical normal structures (lung, spinal cord, heart, brachial plexus, esophagus) some of which received prior radiation therapy and must be treated with narrow margins in order to reduce the probability of radiation toxicity. IMRT is the only treatment modality that can achieve this, as opposed to conventional 3D-treatment planning. MEDICAL NECESSITY FOR IGRT TREATMENT PLANNING: The target volume has inherent setup variation as a result of respiratory motion. IGRT, in conjunction with respiratory gating, is the only treatment modality that can correct for daily variances in target volume location, further improving the therapeutic ratio over IMRT alone. Chhaya Ornelas MD LIBRARIAN documented in this encounter Miscellaneous Notes * Treatment Plan - Chhaya Ornelas MD - 12/26/2016 4:01 PM CST BREAST IMRT DOSIMETRY CONSTRAINTS Target(s) Dose Constraints Target Description 95% Vol > Rx ( Gy) ____% Vol > 95% Rx ( Gy) < 1% Vol = 107% Rx (__ Gy) PTV 50.4 Gy Chest Wall, SCF, Axilla 50.4 Gy 98% 47.88 Gy 55.44 Gy PTV 44 Gy 5 mm thick skin + 5 mm flash 44 Gy % Gy *28 fractions Organ(s) at Risk Dose Constraints OAR Description Dose constraint Volume > Dose constraint Ipsilateral Lung V20 20 Gy 25% cc V10 10 Gy 50% V5 5 Gy 75% Mean lung dose 15 Gy cc Contralateral Lung V20 20 Gy 5% cc Heart V25 25 Gy 10% cc Max heart dose 52 Gy cc Spinal Cord + 5 mm Dmax 45 Gy Brachial Plexus Dmax 52 Gy Thyroid Dmax 50.4 Gy Contralateral Breast Dmax 5 Gy Comments: Minimize contralateral breast dose Chhaya Ornelas MD LIBRARIAN * Treatment Plan - Chhaya Ornelas MD - 12/26/2016 3:49 PM CST CLINICAL TREATMENT PLAN PATIENT NAME: Damien Pulido PROCEDURE DATE: 12/26/2016 DIAGNOSIS: Patient Active Problem List Diagnosis Date Noted ??? Screening for osteoporosis 12/21/2016 ??? 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 Acquired hypothyroidism 08/27/2016 TREATMENT INTENT: Cure SPECIAL TEST(S) INTERPRETED FOR TUMOR DELINEATION: none CHEMOTHERAPY CONSIDERATIONS: Recent chemotherapy - within 3 months (ACx4, Tx4) PROTOCOL ENROLLMENT: none TREATMENT SITE(S): Right Chest Wall NUMBER OF AREAS OR RODRIGUEZ: 1 treatment area(s) NUMBER OF TREATMENT PORTS: Helical tomotherapy (pitch, field width, number of rotations to be determined during treatment planning process) IMMOBILIZATION: Alpha-cradle TREATMENT DEVICES: Custom blocks of complex design TREATMENT MODALITY: External photon beam PLANNED DOSE: 5040 cGy in 180 cGy fractions, Boost to approximately 6040 cGy total dose FRACTIONATION: QD TECHNIQUE CONTEMPLATED: IMRT, IGRT MEDICAL NECESSITY FOR IMRT TREATMENT PLANNING: Dose escalation is planned to deliver radiation doses in excess of those commonly utilized with conventional treatments. The target volume is in close proximity to critical normal structures (previously irradiated tissues including brachial plexus, skin, bone, muscle, lung) and must be treated with narrow margins to adequately protect immediately adjacent structures in order to reduce the probability of radiation toxicity. The dose required to deliver to the target volume exceeds the tolerance of these adjacent normal structures, which are so close that IMRT is the only treatment modality that can achieve this, as opposed to conventional 3D-treatment planning. MEDICAL NECESSITY FOR IGRT TREATMENT PLANNING: There is inherent patient setup variation that could result in geometric miss of the target volume and/or excessive dose delivery to the adjacent normal structures. IGRT is the only treatment modality that can correct for daily variances in target volume location, further improving the therapeutic ratio over IMRT alone. Chhaya Ornelas MD LIBRARIAN * Treatment Plan - Chhaya Ornelas MD - 12/26/2016 3:48 PM CST SPECIAL MEDICAL RADIATION PHYSICS CONSULT REQUEST MEDICAL NECESSITY: I am requesting a special medical radiation physics consultation due to the complexity of this patient???s case. Additional medical physics work will be required above and beyond what is typically performed for standard radiation therapy treatment planning to ensure accurate and safe delivery of the radiation treatment. SPECIAL TREATMENT PROCEDURE: The patient requires radiation therapy to an area that has received prior radiation and is near thefollowing critical structures: brachial plexus, lung, glenohumeral joint. Please review the previous dosimetry and determine the clinical significance of the field overlap as well as NSD decay of theprevious treatment portal for the listed critical structures. and It is critical that the skin surface within the patient's treatment ports receives adequate doses of radiation. The treatment plan includes the use of bolus in an effort to achieve this. Please take a diode measurement under the bolus on the first day of treatment and opine as to the suitability of the current treatment plan. Chhaya Ornelas MD LIBRARIAN * Care Plan - Bree Eisenberg RN - 12/26/2016 3:15 PM CST Problem: External Beam Radiation (Adult) Goal: Prevent/Manage Potential Problems Signs and symptoms of listed problems will be absent or manageable. Here today for planning session to the Right chest wall Educational hand out given and reviewed All of her questions/concerns were addressed LIBRARIAN documented in this encounter Plan of Treatment Upcoming Encounters Date Type Department Care Team (Late st Contact Info) Description 02/01/2025 11:00 AM CDT Office Visit [facility] Oncology and Hematology - [place] [address] [facility] [address] [place] [address] Lj Fam MD [address] [facility] [address] [place] [address] documented as of this encounter Visit Diagnoses Not on filedocumented in this encounter
--- OUTSIDE RECORDS SUMMARY | 2024-11-09 18:35 | XMS_ITS | Encounter Summary ---
Author Organization [facility] Address [address] [place] [address] Care Team Providers Care Gi Technician Name Role Phone Unavailable Primary Care Provider Unavailabl e Encounter Details Date Type Department Care Team (Late Contact Info) Description 09/21/2016 Orders Only [facility] Oncology and Hematology [facility] [address] [place] [address] Jennifer Nielsen RN Malignant neoplasm of central portion of right female breast Social History Tobacco [...] AM CDT Office Visit [facility] Oncology [facility] [address] [place] [address] Lj Fam MD [address] [facility] [address] [place] [address] documented as of this encounter Procedures Procedure Name Priority Date/Time Associated Diagnosis Comments CBC WITH DIFFERENTIAL Routine 09/20/2016 Malignant neoplasm of central portion of right female breast BASIC METABOLIC PANEL Routine 09/20/2016 Malignant neoplasm of central portion of right female breast documented in this encounter Results * (ABNORMAL) BASIC METABOLIC PANEL (09/20/2016) Blood specimen (specimen) Lj Fam MD CHEMISTRY ORDERABLES EXTERNAL LAB * (ABNORMAL) CBC WITH DIFFERENTIAL (09/20/2016) Blood specimen (specimen) Lj Fam MD HEMATOLOGY ORDERABLE S Performing Organization Address City/[facility]/ZIP Co de Phone Number EXTERNAL LAB documented in this encounter Visit Diagnoses Diagnosis Malignant neoplasm of central portion of right female breast Malignant neoplasm of central portion of female breast documented in this encounter
--- OUTSIDE RECORDS SUMMARY | 2024-11-09 18:35 | XMS_ITS | Encounter Summary ---
Author Organization [facility] Address [address] [place] [address] Care Team Providers Care Mother'S Helper Name Role Phone Unavailable Primary Care Provider Unavailabl e Encounter Details Date Type Department Care Team (Late Contact Info) Description 08/31/2016 Orders Only [facility] Oncology and Hematology [facility] [address] [place] [address] Jennifer Nielsen RN Hypercoagulable state; [...] CDT Office Visit [facility] Oncology [facility] [address] [place] [address] Lj Fam MD [address] [facility] [address] [place] [address] documented as of this encounter Visit Diagnoses Diagnosis Hypercoagulable state Primary hypercoagulable state Malignant neoplasm of upper-outer quadrant of right female breast Malignant neoplasm of upper-outer quadrant of female breast documented in this encounter
--- OUTSIDE RECORDS SUMMARY | 2024-11-09 18:35 | XMS_ITS | Encounter Summary ---
Author Organization [facility] Address [address] [place] [address] Care Team Providers Care Stem Dryer Maintainer Name Role Phone Unavailable Primary Care Provider Unavailabl e Encounter Details Date Type Department Care Team (Late Contact Info) Description 11/14/2016 Orders Only [facility] Oncology and Hematology [facility] [address] [place] [address] Jennifer Nielsen RN Hypercoagulable state; [...] Office Visit [facility] Oncology [facility] [address] [place] [address] Lj Fam MD [address] [facility] [address] [place] [address] documented as of this encounter Procedures Procedure Name Priority Date/Time Associated Diagnosis Comments CBC WITH DIFFERENTIAL Routine 11/14/2016 Hypercoagulable state Malignant neoplasm of upper-outer quadrant of right female breast COMPREHENSIVE METABOLIC PANEL Routine 11/14/2016 Hypercoagulable state Malignant neoplasm of upper-outer quadrant of right female breast documented in this encounter Results * (ABNORMAL) COMPREHENSIVE METABOLIC PANEL (11/14/2016) Blood specimen (specimen) Lj Fam MD CHEMISTRY ORDERABLES Performing Organization Address City/[facility] Co de Phone Number EXTERNAL LAB * (ABNORMAL) CBC WITH DIFFERENTIAL (11/14/2016) Blood specimen (specimen) Lj Fam MD HEMATOLOGY ORDERABLE S Performing Organization Address [facility] Co de Phone Number EXTERNAL LAB documented in this encounter Visit Diagnoses Diagnosis Hypercoagulable state Primary hypercoagulable state Malignant neoplasm of upper-outer quadrant of right female breast Malignant neoplasm of upper-outer quadrant of female breast documented in this encounter
--- OUTSIDE RECORDS SUMMARY | 2024-11-09 18:35 | XMS_ITS | Encounter Summary ---
Author Organization [facility] Address [address] [place] [address] Care Team Providers Care Head Up Operator Name Role Phone Unavailable Primary Care Provider Unavailabl e Encounter Details Date Type Department Care Team (Late Contact Info) Description 10/18/2016 Orders Only [facility] Oncology and Hematology [facility] [address] [place] [address] Jennifer Nielsen RN Hypercoagulable [...] CDT Office Visit [facility] Oncology [facility] [address] [place] [address] Lj Fam MD [address] 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 COMPREHENSIVE METABOLIC PANEL Routine 10/18/2016 Hypercoagulable state Malignant neoplasm of upper-outer quadrant of right female breast documented in this encounter Results * (ABNORMAL) COMPREHENSIVE METABOLIC PANEL (10/18/2016) Blood specimen (specimen) Lj Fam MD CHEMISTRY ORDERABLES Performing Organization Address City/[facility] Co de Phone Number EXTERNAL LAB * (ABNORMAL) CBC WITH DIFFERENTIAL (10/18/2016) Blood specimen (specimen) Lj Fam MD HEMATOLOGY ORDERABLE S Performing Organization Address [facility] Co de Phone Number EXTERNAL LAB documented in this encounter Visit Diagnoses Diagnosis Hypercoagulable state Primary hypercoagulable state Malignant neoplasm of upper-outer quadrant of right female breast Malignant neoplasm of upper-outer quadrant of female breast documented in this encounter
--- OUTSIDE RECORDS SUMMARY | 2024-11-09 18:35 | XMS_ITS | Encounter Summary ---
Author Organization [facility] Address [address] [place] [address] Care Team Providers Care Medical And Scientific Illustrator Name Role Phone Unavailable Primary Care Provider Unavailabl e Encounter Details Date Type Department Care Team (Late st Contact Info) Description 11/01/2016 Orders Only [facility] Oncology and Hematology - Jose [address] [place] [address] Jennifer Nielsen RN Social History [...] [facility] H[facility] - [place] [address] [place] [address] [place] [address] [place] [address] [address] [place] [address] documented as of this encounter Visit Diagnoses Not on filedocumented in this encounter
--- OUTSIDE RECORDS SUMMARY | 2024-11-09 18:35 | XMS_ITS | Encounter Summary ---
Author Organization [facility] Address [address] [place] [address] Care Team Providers Care Cpr Ambulance Driver Name Role Phone Unavailable Primary Care Provider Unavailabl e Reason for Visit * Reason Comments Medication Refill Encounter Details Date Type Department Care Team (Late Contact Info) Description 02/13/2017 Refill [facility]3] Oncology and Hematology - Jose [address] [place] [address] Lj Fam MD [address] [place] [address] [employer] [address] [place], [place] [address] Social History Tobacco Use Types Packs/Day Years [...] [facility])[[facility]] Oncology and Hematology - Jose Charles [address] [place] [address] Lj Fam MD [address] [place] [address] [employer] [address] [place] [address] documented as of this encounter Visit Diagnoses Not on filedocumented in this encounter
--- OUTSIDE RECORDS SUMMARY | 2024-11-09 18:35 | XMS_ITS | Encounter Summary ---
Author Organization [facility] Address [address] [place] [address] Care Team Providers Care Flow Machine Operator Name Role Phone Unavailable Primary Care Provider Unavailabl e Reason for Visit * Reason Onset Date Comments Dizziness 10/08/2016 weak Encounter Details Date Type Department Care Team ([facility] st Contact Info) Description 10/08/2016 Telephone [facility] Oncology and Hematology - Jose [address] [facility] [address] [place] [address] Lj Fam MD [address] [facility] [address] [place] [address] Dizziness (weak) Social History Tobacco Use Types Packs/Day Years [...] Telephone Encounter - Jennifer Nielsen RN - 10/08/2016 9:34 AM CST Pt called in this am to report that she has had vomiting Saturday and diarrhea. She is feeling very weak and lightheaded, most likely due to dehydration. Pt also c/o knee pain most likely due to Taxol,using ibuprofen with little relief. Reported to Dr. Fam, orders to come in for Liter NS with KCL20 meq and Zofran 8 mg IV if needed for nausea. Pt denies need for antiemetic but does need pain rx. Infusion nurses will check orthostatic BP before and after IV fluids. Jennifer Nielsen RN TESTER documented in this encounter Plan of Treatment Upcoming Encounters Date Type Department Care Team (Late st Contact Info) Description 02/01/2025 11:00 AM CDT Office Visit [facility] Oncology and Hematology - Jose [address] [facility] [address] [place] [address] Lj Fam MD [address] [facility] [address] [place] [address] documented as of this encounter Visit Diagnoses Not on filedocumented in this encounter
--- OUTSIDE RECORDS SUMMARY | 2024-11-09 18:35 | XMS_ITS | Encounter Summary ---
Author Organization [facility] Address [address] [place] [address] Care Team Providers Care Field Talent Qualification Specialist Name Role Phone Unavailable Primary Care Provider Unavailabl e Reason for Visit * Reason Comments Follow Up pre chemo Encounter Details Date Type Department Care Team ([facility] st Contact Info) Description 10/18/2016 9:30 AM SCENARIO WRITER Office Visit [facility] Oncology and Hematology - [place] [address] [place] [address] [facility] [address] [place] [address] [place] [address] [place] [address] [address] [place] [address] Malignant neoplasm of female breast, [...] Sign Reading Time Taken Comments Blood Pressure 104/70 10/18/2016 9:31 AM SCENARIO WRITER Pulse 80 10/18/2016 9:31 AM SCENARIO WRITER Temperature 36.8 ??C (98.2 ??F) 10/18/2016 9:31 AM CS T Respiratory Rate 20 10/18/2016 9:31 AM SCENARIO WRITER Oxygen Saturation - - Inhaled Oxygen Concentration - - Weight 84.1 kg (185 lb 8 oz) 10/18/2016 9:31 AM SCENARIO WRITER Height 175.3 cm (5' 9 ) 10/18/2016 9:31 AM SCENARIO WRITER Body Mass Index 27.39 10/18/2016 9:31 AM SCENARIO WRITER documented in this encounter Progress Notes * Lj Fam MD - 10/18/2016 9:30 AM CST HEMATOLOGY / ONCOLOGY PROGRESS NOTE [...] continuation of neoadjuvant chemotherapy. Interval History: Patient had cycle 2 of Taxol on October 03, 2016. Review of system Constitutional: No fever; [...] change in vision; complain of neuropathy involving the hands and bilateral lower extremities,; no muscle weakness; no confusion; no seizures Ext no edema Objective: Vital signs in last 24 hours: As per nursing note Exam: Gen: NAD Lungs: Clear Cardiac: S1 and S2 without murmurs or gallops Abd: Soft, tender, no hepatomegally, no masses Extr: No LE edema Scheduled Meds:@MEDSSCHEDULED@ Continuous Infusions:@MEDSINFUSIONS@ Data Review: @PATHOLOGY@ Labs from today showed WAC 3.7 hemoglobin 9.2 platelet 347,000 sodium 141 potassium 4.0 @IMAGEIMP@ Assessment: Plan: Patient Active Problem List [...] dense Adriamycin and Cytoxan. Patient willstart cycle 3 of 4 of dose dense Taxol today. CBC showed some decline in the hemoglobin was 9.2. Platelets normal. Patient will proceed with her treatment today. Patient is scheduled to have surgery on November 20. Chemotherapy-induced neuropathy. I have instructed her to increase Neurontin to 3 times a day. Chemotherapy-induced neutropenia. Patient will receive Neulasta for chemotherapy induced neutropenia prophylaxis. ? 10/18/2016 Lj Fam MD ARIO WRITER documented in this encounter Plan of Treatment Upcoming Encounters Date Type Department Care Team (Late st Contact Info) Description 02/01/2025 11:00 AM CDT Office Visit [facility] Oncology and Hematology [facility] [address] [facility] [address] [place] [address] Lj Fam MD [address] [facility] [address] [place] [address] documented as of this encounter Visit Diagnoses Diagnosis Malignant neoplasm of female breast, unspecified laterality, unspecified site of breast- Primary documented in this encounter
--- OUTSIDE RECORDS SUMMARY | 2024-11-09 18:35 | XMS_ITS | Encounter Summary ---
Author Organization [facility] Address [address] [place] [address] Care Team Providers Care Tape Cutting Machine Operator Name Role Phone Unavailable Primary Care Provider Unavailabl e Reason for Visit * Auth/Cert Specialty Diagnoses / Procedures Referred By Quinn cooper Referred To Contact Radiation Oncology [facility] Radiation Oncology [place] [address] [place] [address] Referral ID Status Reason Start Date Expiration Date Visits Re quested Visits Authorized [id number] 1 1 Encounter Details Date Type Department Care Team (Latest Contact Info) Description 01/22/2017 8:00 AM CDT - 01/22/2017 11:59 PM CDT Hospital Encounter [facility] Radiation Therapy [address] [place] [address] [place] [address] [place] [address] Discharge Disposition: Home or Self [...] tablet Take 77 mcg by mouth daily telephone coin box collector . 12/26/2017 perindopril erbumine (ACEON) 2 mg Tablet Take 2 mg by mouth daily. 02/25/2018 documented as of this encounter Plan of Treatment Upcoming Encounters Date Type Department Care Team (Late st Contact Info) Description 02/01/2025 11:00 AM CDT Office Visit [facility] Oncology and Hematology - Jose [address] [facility] [address] [place] [address] Lj Fam MD [address] [facility] [address] [place] [address] documented as of this encounter Visit Diagnoses Not on filedocumented in this encounter
--- OUTSIDE RECORDS SUMMARY | 2024-11-09 18:35 | XMS_ITS | Encounter Summary ---
Author Organization [facility] Address [address] [place] [address] Care Team Providers Care Coat Presser Name Role Phone Unavailable Primary Care Provider Unavailabl e Reason for Visit * Reason Comments Follow Up pre chemo Encounter Details Date Type Department Care Team ([facility] st Contact Info) Description 10/31/2016 9:30 AM PULVI MIXER OPERATOR Office Visit [facility] Oncology and Hematology - [place] [address] [place] [address] [facility] [address] [place] [address] [place] [address] [place] [address] [address] [place] [address] Malignant neoplasm of female breast, [...] Sign Reading Time Taken Comments Blood Pressure 94/66 10/31/2016 9:22 AM PULVI MIXER OPERATOR Pulse 72 10/31/2016 9:22 AM PULVI MIXER OPERATOR Temperature 36.6 ??C (97.9 ??F) 10/31/2016 9:22 AM CS T Respiratory Rate 20 10/31/2016 9:22 AM PULVI MIXER OPERATOR Oxygen Saturation - - Inhaled Oxygen Concentration - - Weight 82.7 kg (182 lb 6.4 oz) 10/31/2016 9:22 A M PULVI MIXER OPERATOR Height 175.3 cm (5' 9 ) 10/31/2016 9:22 AM PULVI MIXER OPERATOR Body Mass Index 26.94 10/31/2016 9:22 AM PULVI MIXER OPERATOR documented in this encounter Progress Notes * Lj Fam MD - 10/31/2016 9:30 AM CST HEMATOLOGY / ONCOLOGY PROGRESS [...] of neoadjuvant chemotherapy. Interval History: Patient received cycle 3 of Taxol on October 18, 2016. Review of system Constitutional: No fever; [...] headache; no change in vision; complain of painful neuropathy involving bilateral foot and hands; no muscle weakness; no confusion; no seizures Ext no edema Objective: Vital signs in last 24 hours: As per nursing note Exam: Gen: NAD Lungs: Clear Cardiac: S1 and S2 without murmurs or gallops Abd: Soft, tender, no hepatomegally, no masses Extr: No LE edema Scheduled Meds:@MEDSSCHEDULED@ Continuous Infusions:@MEDSINFUSIONS@ Data Review: @PATHOLOGY@ CBC from October 31 showed WC 10.5 hemoglobin 8.9 MCV 103.5 platelet one and 12,000 neutrophils 90% lymphocytes 6% creatinine 0.5 @IMAGEIMP@ Assessment: Plan: Patient Active Problem List [...] dense Adriamycin and Cytoxan. Patient willstart cycle 4 of 4 of dose dense Taxol today. CBC showed some decline in the hemoglobin was 8.9. Platelets normal. Patient will proceed with her treatment today with 10% of the reduction due to anemia and peripheral neuropathy. Patient is scheduled to have surgery on November 20. ?? Chemotherapy-induced neuropathy. I have instructed her to increase Neurontin to 4 times a day. ?? Chemotherapy-induced neutropenia. Patient will receive Neulasta for chemotherapy induced neutropenia prophylaxis. ? She will be back in our office in 2 weeks for visit 10 repeat CBC. ? 10/31/2016 Lj Fam MD I MIXER OPERATOR documented in this encounter Plan of Treatment Upcoming Encounters Date Type Department Care Team (Late st Contact Info) Description 02/01/2025 11:00 AM CDT Office Visit [facility] Oncology and Hematology [facility] [address] [place] [address] Lj Fam MD [address] [facility] [address] [place] [address] documented as of this encounter Visit Diagnoses Diagnosis Malignant neoplasm of female breast, unspecified laterality, unspecified site of breast- Primary documented in this encounter
--- OUTSIDE RECORDS SUMMARY | 2024-11-09 18:35 | XMS_ITS | Encounter Summary ---
Author Organization [facility] Address [address] [place] [address] Care Team Providers Care Commercial Loan Reviewer Name Role Phone Unavailable Primary Care Provider Unavailabl e Reason for Visit * Auth/Cert Specialty Diagnoses / Procedures Referred By Quinn cooper Referred To Contact Radiation Oncology [facility] Radiation Oncology [place] [address] [place] [address] Referral ID Status Reason Start Date Expiration Date Visits Re quested Visits Authorized [id number] 1 1 Encounter Details Date Type Department Care Team (Latest Contact Info) Description 01/08/2017 7:49 AM FLOOR CASHIER - 01/08/2017 11:59 PM [facility] Hospital Encounter [facility] Radiation Therapy [address] [place] [address] [place] [address] [place] [address] Discharge Disposition: Home or Self [...] tablet Take 77 mcg by mouth daily project management engineer . 12/26/2017 perindopril erbumine (ACEON) 2 mg Tablet Take 2 mg by mouth daily. 02/25/2018 documented as of this encounter Plan of Treatment Upcoming Encounters Date Type Department Care Team (Late st Contact Info) Description 02/01/2025 11:00 AM CDT Office Visit [facility] Oncology and Hematology - Jose 2[address] [facility] [address] [place] [address] Lj Fam MD 2[address] [facility] [address] [place] [address] documented as of this encounter Visit Diagnoses Not on filedocumented in this encounter
--- OUTSIDE RECORDS SUMMARY | 2024-11-09 18:35 | XMS_ITS | Encounter Summary ---
Author Organization [facility] Address [address] [place] [address] Care Team Providers Care Sponge Fisherman Name Role Phone Unavailable Primary Care Provider Unavailabl e Encounter Details Date Type Department Care Team (Late st Contact Info) Description 02/15/2017 Orders Only [facility] Oncology and Hematology - Jose [address] [place] [address] Jennifer Nielsen RN Social History [...] Visit [facility] Oncology and Hematology - Jose [address] [place] [address] [place] [address] [place] [address] [address] [place] [address] documented as of this encounter Visit Diagnoses Not on filedocumented in this encounter
--- OUTSIDE RECORDS SUMMARY | 2024-11-09 18:35 | XMS_ITS | Encounter Summary ---
Author Organization [facility] Address [address] [place] [address] Care Team Providers Care Peanut Separator Name Role Phone Unavailable Primary Care Provider Unavailabl e Encounter Details Date Type Department Care Team (Late Contact Info) Description 12/18/2016 Orders Only [facility] Oncology and Hematology [facility] [address] [place] [address] Jennifer Nielsen RN Malignant neoplasm of upper-outer quadrant of right female breast; Screening for osteoporosis Social History Tobacco Use [...] AM CDT Office Visit [facility] Oncology [facility] [address] [place] [address] Lj Fam MD [address] [facility] [address] [place] [address] documented as of this encounter Procedures Procedure Name Priority Date/Time Associated Diagnosis Comments CBC WITH DIFFERENTIAL Stat 12/18/2016 Malignant neoplasm of upper-outer quadrant of right female breast BASIC METABOLIC PANEL Routine 12/18/2016 Malignant neoplasm of upper-outer quadrant of right female breast documented in this encounter Results * (ABNORMAL) CBC WITH DIFFERENTIAL (12/18/2016) Blood Lj Fam MD HEMATOLOGY ORDERABLE S EXTERNAL LAB * (ABNORMAL) BASIC METABOLIC PANEL (12/18/2016) Blood Lj Fam MD CHEMISTRY ORDERABLES EXTERNAL LAB documented in this encounter Visit Diagnoses Diagnosis Malignant neoplasm of upper-outer quadrant of right female breast Malignant neoplasm of upper-outer quadrant of female breast Screening for osteoporosis Special screening for osteoporosis documented in this encounter
--- OUTSIDE RECORDS SUMMARY | 2024-11-09 18:35 | XMS_ITS | Encounter Summary ---
Author Organization [facility] Address [address] [place] [address] Care Team Providers Care Overhead Crane Inspector Name Role Phone Unavailable Primary Care Provider Unavailabl e Reason for Visit * Auth/Cert Specialty Diagnoses / Procedures Referred By Quinn cooper Referred To Contact Radiation Oncology [facility] Radiation Oncology [place] [address] [place] [address] Referral ID Status Reason Start Date Expiration Date Visits Re quested Visits Authorized [id number] 1 1 Encounter Details Date Type Department Care Team (Latest Contact Info) Description 01/21/2017 7:54 AM CDT - 01/21/2017 11:59 PM CDT Hospital Encounter [facility] Radiation Therapy [address] [place] [address] [place] [address] [place] [address] Discharge Disposition: Home or Self [...] tablet Take 77 mcg by mouth daily 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 12/26/2017 perindopril erbumine (ACEON) 2 mg Tablet Take 2 mg by mouth daily. 02/25/2018 documented as of this encounter Plan of Treatment Upcoming Encounters Date Type Department Care Team (Late st Contact Info) Description 02/01/2025 11:00 AM CDT Office Visit [facility] Oncology and Hematology - [place] [address] [facility] [address] [place] [address] Lj Fam MD 2227 [facility] [address] [place] [address] documented as of this encounter Visit Diagnoses Not on filedocumented in this encounter
--- OUTSIDE RECORDS SUMMARY | 2024-11-09 18:35 | XMS_ITS | Encounter Summary ---
Author Organization [facility] Address [address] [place] [address] Care Team Providers Care Superintendent General Name Role Phone Unavailable Primary Care Provider Unavailabl e Reason for Visit * Auth/Cert Specialty Diagnoses / Procedures Referred By Quinn cooper Referred To Contact Radiation Oncology [facility] Radiation Oncology [place] [address] [place] [address] Referral ID Status Reason Start Date Expiration Date Visits Re quested Visits Authorized [id number] 1 1 Encounter Details Date Type Department Care Team (Latest Contact Info) Description 01/09/2017 8:00 AM CEREAL SUPERVISOR - 01/09/2017 11:59 PM [facility] Hospital Encounter [facility] Radiation Therapy [address] [place] [address] [place] [address] [place] [address] Discharge Disposition: Home or Self [...] tablet Take 77 mcg by mouth daily 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 12/26/2017 perindopril erbumine (ACEON) 2 mg Tablet Take 2 mg by mouth daily. 02/25/2018 documented as of this encounter Progress Notes * Chhaya Ornelas MD - 01/09/2017 8:48 AM CST RADIATION ONCOLOGY ON-TREATMENT VISIT DATE: 01/09/2017 IDENTIFYING DATA: Damien Pulido is a 66 y.o. female with prior right breast cancer, status post breast conservation therapy in 1994, now with extensive ipsilateral breast recurrence status post neoadjuvant chemotherapy followed by right simple mastectomy with nipple/skin involvement and positive margins. She presents now for initiation of adjuvant radiation treatment. SITE: Right Chest Wall (prior RT) DOSE: 540 cGy of 5040 cGy (2700 cGy at [facility]) FRACTION: 3 of 28 HISTORY: No complaints other than some fatigue EXAM: Unchanged ASSESSMENT/PLAN: Tolerating radiotherapy well. Imaging checked. Instructed on routine skin care. Continue radiation therapy as planned. Chhaya Ornelas MD AL SUPERVISOR documented in this encounter Miscellaneous Notes * Care Plan - Bree Eisenberg RN - 01/09/2017 8:53 AM CST Problem: External Beam Radiation (Adult) Goal: Prevent/Manage Potential Problems Signs and symptoms of listed problems will be absent or manageable. Outcome: Progressing 01/09/17 0852 External Beam Radiation External Beam Radiation: Problems Assessed fatigue;skin reaction External Beam Radiation: Problems Present fatigue AL SUPERVISOR documented in this encounter Plan of Treatment Upcoming Encounters Date Type Department Care Team (Late st Contact Info) Description 02/01/2025 11:00 AM CDT Office Visit [facility] Oncology and Hematology - [place] [address] [facility] [address] [place] [address] Lj Fam MD [address] [facility] [address] [place] [address] documented as of this encounter Visit Diagnoses Not on filedocumented in this encounter
--- OUTSIDE RECORDS SUMMARY | 2024-11-09 18:35 | XMS_ITS | Encounter Summary ---
Author Organization [facility] Address [address] [place] [address] Care Team Providers Care Valve Pipe Irrigator Name Role Phone Unavailable Primary Care Provider Unavailabl e Reason for Visit * Reason Onset Date Comments Fatigue 09/25/2016 Encounter Details Date Type Department Care Team ([facility] st Contact Info) Description 09/25/2016 Telephone [facility] Oncology and Hematology - [place] [address] [facility] [address] [place] [address] Lj Fam MD [address] [facility] [address] [place] [address] Fatigue Social History Tobacco Use Types Packs/Day Years [...] Telephone Encounter - Jennifer Nielsen RN - 09/25/2016 1:31 PM CST Pt called reporting weak, unable to work yesterday. States she is eating fairly well, using supplements and drinking plenty of fluids. Assured pt most likely fatigue due to chemo, had 1st cycle Taxoldose dense 09-20-16. Pt states she felt good while on steroids. Pt encouraged to rest and continue good hydration and balanced diet. Pt may use tylenol or ibuprofen for muscle aches but instructed tocheck temp prior to use, pt states understanding. Jennifer Nielsen RN C APPLICATION DEVELOPER documented in this encounter Plan of Treatment Upcoming Encounters Date Type Department Care Team (Late st Contact Info) Description 02/01/2025 11:00 AM CDT Office Visit [facility] Oncology and Hematology - [place] [address] [facility] [address] [place] [address] Lj Fam MD [address] [facility] [address] [place] [address] documented as of this encounter Visit Diagnoses Not on filedocumented in this encounter
--- OUTSIDE RECORDS SUMMARY | 2024-11-09 18:35 | XMS_ITS | Encounter Summary ---
Author Organization [facility] Address [address] [place] [address] Care Team Providers Care Oil Paint Shader Name Role Phone Unavailable Primary Care Provider Unavailabl e Reason for Visit * Auth/Cert Specialty Diagnoses / Procedures Referred By Quinn cooper Referred To Contact Radiation Oncology [facility] Radiation Oncology [place] [address] [place] [address] Referral ID Status Reason Start Date Expiration Date Visits Re quested Visits Authorized [id number] 1 1 Encounter Details Date Type Department Care Team (Latest Contact Info) Description 01/17/2017 7:48 AM KNOT CUTTER - 01/17/2017 11:59 PM [facility] Hospital Encounter [facility] Radiation Therapy [address] [place] [address] [place] [address] [place] [address] Discharge Disposition: Home or Self [...] tablet Take 77 mcg by mouth daily drapery estimator . 12/26/2017 perindopril erbumine (ACEON) 2 mg Tablet Take 2 mg by mouth daily. 02/25/2018 documented as of this encounter Plan of Treatment Upcoming Encounters Date Type Department Care Team (Late st Contact Info) Description 02/01/2025 11:00 AM CDT Office Visit [facility] Oncology and Hematology - [place] [address] [facility] [address] [place] [address] Lj Fam MD [address] [facility] [address] [place] [address] documented as of this encounter Visit Diagnoses Not on filedocumented in this encounter
--- OUTSIDE RECORDS SUMMARY | 2024-11-09 18:35 | XMS_ITS | Encounter Summary ---
Author Organization [facility] Address [address] [place] [address] Care Team Providers Care Safety Council Director Name Role Phone Unavailable Primary Care Provider Unavailabl e Reason for Referral * Outpatient Services (Routine) - Closed Specialty Diagnoses / Procedures Referred By Contac t Referred To Contact Diagnoses Malignant neoplasm of upper-outer quadrant of right female breast Procedures MAMMO SCRN UNI LEFT W OR WO CAD Lj Fam MD [address] [employer] [address] [place] [address] [place] [address] Referral ID Status Reason Start Date Expiration Date Visits Re quested Visits Authorized [id number] Closed 05/27/2017 06/27/2018 1 1 Reason for Visit * Reason Comments Follow Up Encounter Details Date Type Department Care Team ([facility] st Contact Info) Description 05/27/2017 9:30 AM CDT Office Visit [facility] Oncology and Hematology [address] [facility] [address] [place] [address] Lj Fam MD [address] [employer] [address] [place] [address] Malignant neoplasm of upper-outer quadrant of right female breast (Primary Dx) Social [...] Sign Reading Time Taken Comments Blood Pressure 105/72 05/27/2017 9:40 AM CDT Pulse 76 05/27/2017 9:40 AM CDT Temperature 36.7 ??C (98 ??F) 05/27/2017 9:40 AM CDT Respiratory Rate 18 05/27/2017 9:40 AM CDT Oxygen Saturation - - Inhaled Oxygen Concentration - - Weight 77.7 kg (171 lb 4.8 oz) 05/27/2017 9:40 A M CDT Height 175.3 cm (5' 9 ) 05/27/2017 9:40 AM CDT Body Mass Index 25.3 05/27/2017 9:40 AM CDT documented in this encounter Progress Notes * Lj Fam MD - 05/27/2017 10:22 AM CDT HEMATOLOGY / ONCOLOGY PROGRESS NOTE [...] and lobular invasive c arcinoma moderately differentiated ER/[place] positive HER-2/eleuterio negative Ki-67 less than 20%. [...] 2017. Bone density was performed in 2016. Review of system Constitutional: No fever; [...] headache; no change in vision; neuropathy involving fingers and mainly in toes; no muscleweakness; no confusion; no seizures Ext no edema Complain of rash and redness in the right chest wall. Objective: Vital signs in last 24 hours: As per nursing note Exam: Gen: NAD Lungs: Clear Cardiac: S1 and S2 without murmurs or gallops Abd: Soft, tender, no hepatomegally, no masses Extr: No LE edema Right chest wall examination showed rash almost eczematous. Scheduled Meds:@[email or web address]@ Continuous Infusions:@[email or web address]@ Data Review: [facility] Labs showed WBC 4.4 hemoglobin 11.6 platelet one 93,000 creatinine 0.8. Labs from May 27 showed WBC 4.3 hemoglobin 11.1 MCV 103.7 and platelet 186,000. Assessment: Plan: Patient Active Problem List Diagnosis Date Noted ??? Screening for osteoporosis 12/21/2016 ??? 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 [...] of relapse of disease on my examination. I will order a left-sided mammogram. Bone health. Bone density testing showed osteopenia. Patient will continue vitamin D and calcium. Iwill start prolia every 6 months basis. Chemotherapy-induced neuropathy. Patient discontinued Neurontin due to no improvement in neuropathy. She did not restart K due to cost.? Anemia secondary to chemotherapy. Hemoglobin down to 11.1 from 11.6 previously. We will repeat CBC and CMP in 3months. Right chest wall rash. I will start desoximetasone gel 0.05% twice a day.??I have also instructed her to change her bra prosthesis to avoid rubbing against chest wall.?? ? 05/27/2017 Lj Fam MD documented in this encounter Miscellaneous Notes * Addendum Note - Jennifer Nielsen RN - 05/27/2017 10:33 AM CDTAddended by: JENNIFER NIELSEN on: 05/27/2017 10:33 AM Modules accepted: Orders documented in this encounter Plan of Treatment Upcoming Encounters Date Type Department Care Team (Late st Contact Info) Description 02/01/2025 11:00 AM CDT Office Visit [facility] Oncology and Hematology [facility] [address] [facility] [address] [place] [address] Lj Fam MD 2[address] [facility] [address] [place] [address] documented as of this encounter Results * BASIC METABOLIC PANEL (08/27/2017) Blood Lj Fam MD CHEMISTRY ORDERABLES EXTERNAL LAB * (ABNORMAL) MAMMO SCRN UNI LEFT W OR WO CAD (06/03/2017) Anatomical Region Laterality Modality Breast Left Other Lj Fam MD MAMMO ORDERABLES documented in this encounter Visit Diagnoses Diagnosis Malignant neoplasm of upper-outer quadrant of right female breast- Primary Malignant neoplasm of upper-outer quadrant of female breast documented in this encounter
--- OUTSIDE RECORDS SUMMARY | 2024-11-09 18:35 | XMS_ITS | Encounter Summary ---
Author Organization [employer] Address [address] [place] [address] Care Team Providers Care Streetcar Motorman Name Role Phone Unavailable Primary Care Provider Unavailabl e Reason for Visit * Auth/Cert Specialty Diagnoses / Procedures Referred By Quinn cooper Referred To Contact Radiation Oncology [facility] Radiation Oncology [place] [address] [place] [address] Referral ID Status Reason Start Date Expiration Date Visits Re quested Visits Authorized [id number] 1 1 Encounter Details Date Type Department Care Team (Latest Contact Info) Description 01/10/2017 7:59 AM PATCHER - 01/10/2017 11:59 PM [facility] Hospital Encounter [facility] Radiation Therapy [address] [place] [address] [place] [address] [place] [address] Discharge Disposition: Home or Self [...] tablet Take 77 mcg by mouth daily 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 12/26/2017 perindopril erbumine (ACEON) 2 mg Tablet Take 2 mg by mouth daily. 02/25/2018 documented as of this encounter Plan of Treatment Upcoming Encounters Date Type Department Care Team (Late st Contact Info) Description 02/01/2025 11:00 AM CDT Office Visit [facility] Oncology and Hematology - [place] [address] [facility] [address] [place] [address] Lj Fam MD 2[address] [facility] [address] [place] [address] documented as of this encounter Visit Diagnoses Not on filedocumented in this encounter
--- OUTSIDE RECORDS SUMMARY | 2024-11-09 18:35 | XMS_ITS | Encounter Summary ---
Author Organization [facility] Address [address] [place] [address] Care Team Providers Care Gang Pusher Name Role Phone Unavailable Primary Care Provider Unavailabl e Encounter Details Date Type Department Care Team (Late st Contact Info) Description 03/25/2017 Orders Only [facility] Oncology and Hematology - [place] [address] [place] [address] Jennifer Nielsen RN Social [...] Hematology - [place] [address] [place] [address] [place] [address] [place] [address] [address] [place] [address] documented as of this encounter Visit Diagnoses Not on filedocumented in this encounter
--- OUTSIDE RECORDS SUMMARY | 2024-11-09 18:35 | XMS_ITS | Encounter Summary ---
Author Organization [facility] Address [address] [place] [address] Care Team Providers Care Bad Credit Collector Name Role Phone Unavailable Primary Care Provider Unavailabl e Reason for Visit * Reason Comments Referral Encounter Details Date Type Department Care Team ([facility] Contact Info) Description 12/28/2016 Chart Note [facility] Oncology Patient Navigation [address] [place] [address] Gianna Grimes LCSW NO ADDRESS ON FILE Referral Social History Tobacco Use Types Packs/Day Years Used Date Smoking Tobacco: Never Alcohol Use Standard Drinks/Week Comments Yes 0 (1 standard drink = 0.6 oz pur e alcohol) Sex and Gender Information Value Date Recorded Sex Assigned at Not on file Gender Identity Not on file Sexual Orientation Not on file documented as of this encounter Progress Notes * Gianna Grimes LCSW - 12/28/2016 10:01 AM CST On 12/26/2016 SW received referral from Makayla, Radiation Oncology to meet with patient regarding financial concerns. MICHAEL met with patient and her . 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 He stated concern for financial strain related to cost of treatment for patient's breast cancer. They denied any other needs at this time. MICHAEL informed patient/ of [facility] financial assistance. MICHAEL provided them with the contact information to request financial assistance: [phone]. Patient/ stated appreciation for information received. MICHAEL contact information provided; encouraged patient to call with questions/concerns. ITAL NURSING ASSISTANT documented in this encounter Plan of Treatment Upcoming Encounters Date Type Department Care Team ([facility] Contact Info) Description 02/01/2025 11:00 AM CDT Office Visit [facility] Oncology and Hematology - [place] [address] [facility] [address] [place] [address] Lj Fam MD 2[address] [facility] [address] [place] [address] documented as of this encounter Visit Diagnoses Not on filedocumented in this encounter
--- OUTSIDE RECORDS SUMMARY | 2024-11-09 18:35 | XMS_ITS | Encounter Summary ---
Author Organization [facility] Address [address] [place] [address] Care Team Providers Care Powder Truck Driver Name Role Phone Unavailable Primary Care Provider Unavailabl e Reason for Visit * Reason Onset Date Comments Rash 04/10/2017 Encounter Details Date Type Department Care Team ([facility] Contact Info) Description 04/10/2017 Telephone [facility] Oncology and Hematology [facility] [address] [place] [address] [place] [address] [place] [address] [address] [place] [address] Rash Social History Tobacco Use Types Packs/Day Years [...] Telephone Encounter - Jennifer Nielsen RN - 04/10/2017 12:47 PM CDT Pt called to report that with medrol dose pack rash resolved but started to come back. After restarting Benadryl and HC cream, rash is gone now. Jennifer Nielsen RN documented in this encounter Plan of Treatment Upcoming Encounters Date Type Department Care Team ([facility] Contact Info) Description 02/01/2025 11:00 AM CDT Office Visit [facility] Oncology and Hematology [facility] [address] [place] [address] Lj Fam MD [facility] [address] [address] documented as of this encounter Visit Diagnoses Not on filedocumented in this encounter
--- OUTSIDE RECORDS SUMMARY | 2024-11-09 18:35 | XMS_ITS | Encounter Summary ---
Author Organization [facility] Address [address] [place] [address] Care Team Providers Care Kier Pleater Name Role Phone Unavailable Primary Care Provider Unavailabl e Reason for Visit * Reason Comments Cancer Follow Up Encounter Details Date Type Department Care Team ([facility] st Contact Info) Description 03/19/2017 10:00 AM CDT Office Visit [facility] Oncology and Hematology - [place] [address] [facility] [address] [place] [address] Lj Fam MD 2[address] [facility] [address] [place] [address] Malignant neoplasm of upper-outer quadrant of right female breast; Malignant neoplasm of female breast, unspecified laterality, [...] Sign Reading Time Taken Comments Blood Pressure 122/79 03/19/2017 10:11 AM CDT Pulse 68 03/19/2017 10:11 AM CDT Temperature 36.8 ??C (98.3 ??F) 03/19/2017 1 0:11 AM CDT Respiratory Rate 16 03/19/2017 10:1 1 AM CDT Oxygen Saturation - - Inhaled Oxygen Concentration - - Weight 76.1 kg (167 lb 12.8 oz) 017 10:11 AM CDT Height 175.3 cm (5' 9 ) 03/19/2017 10:1 1 AM CDT Body Mass Index 24.78 03/19/2017 10:11 AM CDT documented in this encounter Progress Notes * Lj Fam MD - 03/19/2017 12:17 PM CDT HEMATOLOGY / ONCOLOGY PROGRESS NOTE [...] and lobular invasive c arcinoma moderately differentiated ER/NM positive HER-2/eleuterio negative Ki-67 less than 20%. [...] Neuro: No headache; no change in vision; her sister neuropathy involving fingers and mainly in toes; no muscle weakness; no confusion; no seizures Ext no edema Complain of itching in the right chest wall rash. Objective: Vital signs in last 24 hours: As per nursing note Exam: Gen: NAD Lungs: Clear Cardiac: S1 and S2 without murmurs or gallops Abd: Soft, tender, no hepatomegally, no masses Extr: No LE edema Right chest wall examination showed rash likely allergic reaction Scheduled Meds:@[email or web address]@ Continuous Infusions:@MEDSINFUSIONS@ Data Review: [facility] Labs showed WBC 4.4 hemoglobin 11.6 platelet one 93,000 creatinine 0.8. @IMAGEIMP@ Assessment: Plan: Patient Active Problem List Diagnosis Date Noted ??? Screening for osteoporosis 12/21/2016 ??? 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 [...] showed positive superior and inferior margins. Patient has started radiation therapy one week ago.. Patient has started Arimidex 1 mg daily as well. Bone density testing showed osteopenia. Patient will continue vitamin D and calcium.?Patient completed radiation therapy on February 13, 2017. Chemotherapy-induced neuropathy. Patient discontinued Neurontin due to no improvement in neuropathy. I will prescribe her Lyrica 75 mg twice a day. ? Anemia secondary to chemotherapy. Hemoglobin has improved to 11.6 today. We will repeat CBC and CMPin 2 months. Right chest wall rash. Patient will start taking Benadryl 25 mg 3 times a day due to itching and rash. If no improvement we will prescribed steroid cream. ? 03/19/2017 Lj Fam MD documented in this encounter Plan of Treatment Upcoming Encounters Date Type Department Care Team (Late st Contact Info) Description 02/01/2025 11:00 AM CDT Office Visit [facility] Oncology and Hematology - [place] 2[address] [facility] [address] [place] [address] Lj Fam MD [address] [facility] [address] [place] [address] documented as of this encounter Procedures Procedure Name Priority Date/Time Associated Diagnosis Comments CBC WITH DIFFERENTIAL Routine 03/19/2017 Malignant neoplasm of upper-outer quadrant of right female breast Malignant neoplasm of female breast, unspecified laterality, unspecified site of breast BASIC METABOLIC PANEL Routine 03/19/2017 Malignant neoplasm of upper-outer quadrant of right female breast Malignant neoplasm of female breast, unspecified laterality, unspecified site of breast documented in this encounter Results * CBC WITH DIFFERENTIAL (03/19/2017) Blood Lj Fam MD HEMATOLOGY ORDERABLE S EXTERNAL LAB * BASIC METABOLIC PANEL (03/19/2017) Blood Lj Fam MD CHEMISTRY ORDERABLES EXTERNAL LAB documented in this encounter Visit Diagnoses Diagnosis Malignant neoplasm of upper-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
--- OUTSIDE RECORDS SUMMARY | 2024-11-09 18:35 | XMS_ITS | Encounter Summary ---
Author Organization [facility] Address [address] [place] [address] Care Team Providers Care Filter Washer And Presser Name Role Phone Unavailable Primary Care Provider Unavailabl e Reason for Referral * Outpatient Services (Routine) - Closed Specialty Diagnoses / Procedures Referred By Quinn cooper Referred To Contact Radiology Diagnoses Malignant neoplasm of upper-outer quadrant of right female breast Procedures XR PORT CONTRAST INJECT W FLUORO Lj Fam MD [facility] [address] Referral ID Status Reason Start Date Expiration Date Visits Requested Visits Authorized [id number] Closed Ordering Department To Schedule 08/30/2016 09/30/2017 1 1 * Outpatient Services (Routine) - Closed Specialty Diagnoses / Procedures Referred By Quinn cooper Referred To Contact Diagnoses Hypercoagulable state Procedures US VENOUS DOPPLER LEG RIGHT Lj Fam MD [address] [address] [facility] [address] [place] [id number] Referral ID Status Reason Start Date Expiration Date V isits Requested Visits Authorized [id number] Closed [facility] CTS 08/27/2016 09/27/2017 1 1 Reason for Visit * Reason Comments Establish Care new pt Encounter Details Date Type Department Care Team (Late st Contact Info) Description 08/27/2016 11:00 AM CDT Office Visit [facility] Oncology and Hematology - [place] [address] [facility] [address] [place] [address] Lj Fam MD [address] [facility] [address] [place] [address] Hypercoagulable state (Primary Dx); Malignant neoplasm of upper-outer quadrant of right female breast; Acquired hypothyroidism; Examination prior to chemotherapy Social History Tobacco Use Types Packs/Day Years [...] Sign Reading Time Taken Comments Blood Pressure 104/66 08/27/2016 10:48 AM CDT Pulse 96 08/27/2016 10:48 AM CDT Temperature 36.6 ??C (97.8 ??F) 08/27/2016 10:48 AM C DT Respiratory Rate 20 08/27/2016 10:48 AM CDT Oxygen Saturation - - Inhaled Oxygen Concentration - - Weight 85.1 kg (187 lb 9.6 oz) 08/27/2016 10:48 AM CDT Height 175.3 cm (5' 9 ) 08/27/2016 10:48 AM CDT Body Mass Index 27.7 08/27/2016 10:48 AM CDT documented in this encounter Progress Notes * Lj Fam MD - 08/27/2016 12:00 PM CDT Hematology-oncology consult Note Requesting Physician Lorri Fontanez MD Primary Care Physician Lorri Fontanez, DO Problem list There is no problem list on file for this patient. Previous TREATMENT ? Measurable Disease ? Reason for Visit Damien Pulido is a 66 y.o. female who was referred for consultation for recurrent breast cancer History of present illness This is a pleasant 66-year-old female who [...] my office for continuation of neoadjuvant chemotherapy. Clinically she does have some appetite suppression on the days of the chemotherapy along with nausea. She denies any bone pain. She does have some swelling in the right lower extremity with some tightness but without any discomfort. Past Medical History Past Medical History Diagnosis Date ??? Breast cancer ??? Cervical cancer ??? Hypothyroidism Pancreatic insufficiency, patient is on Creon Surgical History Past Surgical History Procedure Laterality Date ??? Hx appendectomy ??? Hx breast lumpectomy for cancer Right 1994 ??? Hx hysterectomy ??? Hx cholecystectomy Medications Current Outpatient Prescriptions Medication Sig Dispense Refill ??? levothyroxine 125 mcg tablet Take 125 mcg by mouth daily automatic vulcanizing operator. ??? perindopril erbumine (ACEON) 2 mg Tablet Take 2 mg by mouth daily. ??? montelukast (SINGULAIR) 10 mg tablet Take 10 mg by mouth daily at bedtime. ??? dexamethasone (DECADRON) 4 mg tablet Take 4 mg by mouth 2 times daily. ??? ondansetron (ZOFRAN) 8 mg Tablet Take 8 mg by mouth every 8 hours as needed for Nausea or Nausea/Emesis. ??? uheikqa-iqqvqp-wfvopago DR (CREON 12) 60-12-38 capsule Take by mouth 4 times daily with meals. No current facility-administered medications for this visit. Allergies No Known Allergies Immunizations: There is no immunization history on file for this patient. Family History Family History Problem Relation Age of Onset ??? Heart Disease Father ??? Breast Cancer Mother patient mother had breast cancer at age of 42. Father age 85 secondary to congestive heart failure Social History Social History Substance Use Topics ??? Smoking status: Never Smoker ??? Smokeless tobacco: Not on file ??? Alcohol Use: 0.0 - 0.6 oz/week 0-1 Standard drinks or equivalent per week Review of Systems Constitutional: No fever; no night sweats; no anorexia; no weight loss; no fatique NEENT: No headache; no change in vision; no change in hearing; no sore throat; no dysphagia Respiratory: No shortness of breath; no pleuritic chest pain; no cough; no hemoptysis Cardiac: No cardiac-like chest pain; no palpitations; no orthopnea; no PND; no BE Breasts: Right breast mass which has been shrinking with ongoing chemotherapy GI: No abdominal pain; no nausea; no vomiting; no diarrhea; no hematochezia; no melena : No dysuria; no frequency; no hesitancy; no hematuria [employer]: Musculosketetal: no bone pain; no arthralgia; no joint swelling; no myalgia; Skin: no pruritis; no rash; no petechiae; no ecchymoses Endocrine: no polydipsia; no polyuria; no unusual weight gain Neuro: No headache; no change in vision; no sensory changes; no muscle weakness; no confusion; no seizures Psych: no anxiety; no depression; Lymphatics. There is no evidence of lymphatic involvement with cancer. Physical Exam Vitals: BP 104/66 mmHg Pulse 96 Temp(Src) 97.8 ??F (36.6 ??C) (Oral) Resp 20 Ht 5' 9 (1.753 m) Wt 85.095 kg (187 lb 9.6 oz) BMI 27.69 kg/m2, Constitutional: Well developed, well nourished, no acute distress, non-toxic appearance Teeth and gum. No signs of infection or swelling. Eyes: PERRL, conjunctiva normal HEENT: Atraumatic, external ears normal, nose normal, oropharynx moist, no pharyngeal exudates. no sinus tenderness Neck- normal range of motion, no tenderness, supple Respiratory: No respiratory distress, normal breath sounds, no rales, no wheezing Breasts: Extensive upper order quadrant solid mass, without any injury lymphadenopathy. Left breastshowed no evidence of mass and lymphadenopathy. Cardiovascular: Normal rate, normal rhythm, no murmurs, no gallops, no rubs GI: Soft, nondistended, normal bowel sounds, nontender, no splenomegaly, no hepatomegaly, no mass, no rebound, no guarding : No costovertebral angle tenderness Musculoskeletal: Some tightness and swelling in the right lower extremity no tenderness, no deformities. Back- no tenderness Integument: Well hydrated, no rash, Digits and nails inspection normal Lymphatic: No lymphadenopathy noted Neurologic: Alert & oriented x 3, CN 2-12 normal, normal motor function, normal sensory function, no focal deficits noted Psychiatric: Speech and behavior appropriate ? labs No results found for this or any previous visit (from the past 24 hour(s)). Pathology ? Imaging & Other Studies Performance Status? 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 PET scan doneon July 11, 2003 came back negative for metastatic disease. Patient prior to that has history of localized right-sided breast cancer in 1995 status post lumpectomy and adjuvant radiation therapy. She did not receive any adjuvant chemotherapy and hormonal therapy. Patient is currently receiving chemotherapy with Adriamycin and Cytoxan in dose dense fashion. I will continue the current chemotherapy for total of 4 cycles then Taxol every 2 weeks for 4 cycles in dose dense fashion. Patient has completed 3 cycles of Adriamycin and Cytoxan previously. She will be seen by Dr. Fontanez for surgical evaluation after completion of cycle #8. I have discussed the side effects profile of chemotherapyagents. I have answered all questions to patient's satisfaction. Chemotherapy-induced neutropenia. Patient will receive Neulasta prophylaxis for chemotherapy-induced neutropenia. Right lower extremity swelling and tightness. I will order the right lower extremity Doppler ultrasound to rule out DVT. Thank you very much for allowing me to participate in Damien Pulido's evaluation and management. Please feel free to contact if I can be of any further assistance in your patient???s care requiring hematology or oncology evaluation. Sincerely, ? ? Lj Fam M.D. cell Total time spent 60 minutes, two thirds of the total time spent counseling patient [id number]. ? Lj Fam MD ,08/27/2016 1:48 PM ? ? documented in this encounter Miscellaneous Notes * Addendum Note - Lj Fam MD - 08/30/2016 9:58 AM CDTAddended by: LJ FAM on: 08/30/2016 09:58 AM Modules accepted: Orders documented in this encounter Plan of Treatment Upcoming Encounters Date Type Department Care Team (Late st Contact Info) Description 02/01/2025 11:00 AM CDT Office Visit [facility] Oncology and Hematology - [place] [address] [facility] [address] [place] [address] Lj Fam MD [address] [facility] [address] [place] [address] Scheduled Orders Name Type Priority Associated Diagnoses Orde r Schedule US VENOUS DOPPLER LEG RIGHT Imaging Routine Hypercoagulable state 1 Occurrences starting 08/27/2016 until 08/27/2017 CBC WITH DIFFERENTIAL Lab Routine Hypercoagulable state Malignant neoplasm of upper-outer quadrant of right female breast Expected: 08/30/2016, Expires: 08/27/2017 COMPREHENSIVE METABOLIC PANEL Lab Routine Hypercoagulable state Malignant neoplasm of upper-outer quadrant of right female breast Expected: 08/30/2016, Expires: 08/27/2017 XR PORT CONTRAST INJECT W FLUORO Imaging Routine Malignant neoplasm of upper-outer quadrant of right female breast 1 Occurrences starting 08/30/2016 until 08/30/2017 documented as of this encounter Visit Diagnoses Diagnosis Hypercoagulable state- Primary Primary hypercoagulable state Malignant neoplasm of upper-outer quadrant of right female breast Malignant neoplasm of upper-outer quadrant of female breast Acquired hypothyroidism Unspecified hypothyroidism Examination prior to chemotherapy Other specified pre-operative examination documented in this encounter
--- OUTSIDE RECORDS SUMMARY | 2024-11-09 18:35 | XMS_ITS | Encounter Summary ---
Author Organization [facility] Address [address] [place] [address] Care Team Providers Care Paper Machine Backtender Name Role Phone Unavailable Primary Care Provider Unavailabl e Encounter Details Date Type Department Care Team (Late st Contact Info) Description 07/09/2016 Abstract [facility] BREAST SURGERY - [place] CLRKSN [address] [facility] [address] [place] [address] Lani Cavanaugh MD NO ADDRESS ON FILE Social History Tobacco [...] [facility] Oncology and Hematology - [place] [address] [place] [address] [facility] [address] [place] [address] Lj Fam MD [address] [facility] [address] [place] [address] documented as of this encounter Visit Diagnoses Not on filedocumented in this encounter
--- OUTSIDE RECORDS SUMMARY | 2024-11-09 18:35 | XMS_ITS | Encounter Summary ---
Author Organization [facility] Address [address] [place] [address] Care Team Providers Care Platform Beater Name Role Phone Unavailable Primary Care Provider Unavailabl e Reason for Visit * Reason Onset Date Comments Rash 03/25/2017 Encounter Details Date Type Department Care Team ([facility] Contact Info) Description 03/25/2017 Telephone [facility] Oncology and Hematology [place] [address] [address] [place] [id number] [place] [address] [place] [address] [address] [place] [address] Rash Social History Tobacco Use [...] Telephone Encounter - Jennifer Nielsen RN - 03/25/2017 1:29 PM CDT Pt reports still has rash, has been using Benadryl q [address] Fam, rx Medrol dose pack ordered and pt advised to use HC cream prn. Pt to call back if not better. Jennifer Nielsen RN documented in this encounter Plan of Treatment Upcoming Encounters Date Type Department Care Team ([facility] Contact Info) Description 02/01/2025 11:00 AM CDT Office Visit [facility] Oncology and Hematology [facility] [address] [place] [address] Lj Fam MD [address] [facility] [address] [place] [address] documented as of this encounter Visit Diagnoses Not on filedocumented in this encounter
--- OUTSIDE RECORDS SUMMARY | 2024-11-09 18:35 | XMS_ITS | Encounter Summary ---
Author Organization [facility] Address [address] [place] [address] Care Team Providers Care Movie Shot Camera Operator Name Role Phone Unavailable Primary Care Provider Unavailabl e Encounter Details Date Type Department Care Team (Late Contact Info) Description 01/15/2017 Orders Only [facility] Oncology and Hematology [facility] [address] [place] [address] Lj Fam MD [address] [place] [address] [address] [place] [address] Hypercoagulable state; Malignant neoplasm of upper-outer quadrant [...] AM CDT Office Visit [facility] Oncology and Hematology 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
--- OUTSIDE RECORDS SUMMARY | 2024-11-09 18:35 | XMS_ITS | Encounter Summary ---
Author Organization [facility] Address [address] [place] [address] Care Team Providers Care Forensic Psychiatrist Name Role Phone Unavailable Primary Care Provider Unavailabl e Reason for Visit * Reason Comments Follow Up Encounter Details Date Type Department Care Team ([facility] st Contact Info) Description 11/14/2016 9:00 AM INSTITUTIONAL COOK Office Visit [facility] Oncology and Hematology - [place] [address] [facility] [address] [place] [address] Lj Fam MD [address] [facility] [address] [place] [address] Encounter for care related to Port-a-Cath (Primary Dx); Malignant neoplasm of upper-outer quadrant [...] Sign Reading Time Taken Comments Blood Pressure 90/56 11/14/2016 9:12 AM INSTITUTIONAL COOK Pulse 84 11/14/2016 9:12 AM INSTITUTIONAL COOK Temperature 36.7 ??C (98 ??F) 11/14/2016 9:12 AM INSTITUTIONAL COOK Respiratory Rate 18 11/14/2016 9:12 AM INSTITUTIONAL COOK Oxygen Saturation - - Inhaled Oxygen Concentration - - Weight 81.5 kg (179 lb 11.2 oz) 11/14/2016 9:12 AM INSTITUTIONAL COOK Height 175.3 cm (5' 9 ) 11/14/2016 9:12 AM INSTITUTIONAL COOK Body Mass Index 26.54 11/14/2016 9:12 AM INSTITUTIONAL COOK documented in this encounter Progress Notes * Lj Fam MD - 11/14/2016 9:00 AM CST HEMATOLOGY / ONCOLOGY PROGRESS [...] and lobular invasive c arcinoma moderately differentiated ER/[place] positive HER-2/eleuterio negative Ki-67 less than 20%. Patient was started on neoadjuvant chemotherapy with Adriamycin and Cytoxan on July 19, 2016 her last chemotherapy which was cycle #3 on August 16, 2016. She was notified that her current oncology service does not cover her insurance. Patient is in my office for continuation of neoadjuvant chemotherapy. Interval History: Patient completed last chemotherapy with dose dense Taxol on October 31, 2016. Review of system Constitutional: No fever; no night sweats; no anorexia; no weight loss; no fatique Respiratory: No shortness of breath; no pleuritic chest pain; no cough; no hemoptysis Cardiac: No cardiac-like chest pain; no palpitations; no orthopnea; no PND; no BE GI: No abdominal pain; no nausea; no vomiting; no diarrhea; no hematochezia; no melena Musculosketetal: no bone pain; no arthralgia; no joint swelling; no myalgia; Neuro: No headache; no change in vision; complain of painful neuropathy involving the feet and the hand; no muscle weakness; no confusion; no seizures Ext no edema Objective: Vital signs in last 24 hours: As per nursing note Exam: Gen: NAD Lungs: Clear Cardiac: S1 and S2 without murmurs or gallops Abd: Soft, tender, no hepatomegally, no masses Extr: No LE edema Scheduled Meds:@MEDSSCHEDULED@ Continuous Infusions:@MEDSINFUSIONS@ Data Review: @PATHOLOGY@ Labs from today showed WBC count of 8.7 hemoglobin 9.7 platelet 274,000. @IMAGEIMP@ Assessment: Plan: Patient Active Problem List Diagnosis Date Noted ??? 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 [...] dense Taxol on October 31, 2016. Patient is going to have surgery on November 20, 2015. I will follow with her in 4 weeks. Chemotherapy-induced neuropathy. Patient will continue Neurontin 4 times a day along with [place] forpain control. ? 11/14/2016 Lj Fam MD ITUTIONAL COOK documented in this encounter Plan of Treatment Upcoming Encounters Date Type Department Care Team (Late st Contact Info) Description 02/01/2025 11:00 AM CDT Office Visit [facility] Oncology and Hematology - [place] [address] [facility] [address] [place] [address] Lj Fam MD [address] [facility] [address] [place] [address] documented as of this encounter Results * (ABNORMAL) CBC WITH DIFFERENTIAL (12/18/2016) Blood Lj Fam MD HEMATOLOGY ORDERABLE S Performing Organization Address [facility] Co de Phone Number EXTERNAL LAB * (ABNORMAL) BASIC METABOLIC PANEL (12/18/2016) Blood Lj Fam MD CHEMISTRY ORDERABLES Performing Organization Address [facility] Co de Phone Number EXTERNAL LAB documented in this encounter Visit Diagnoses Diagnosis Encounter for care related to [id number]-e-[id number]- Primary Fitting and adjustment of vascular catheter Malignant neoplasm of upper-outer quadrant of right female breast Malignant neoplasm of upper-outer quadrant of female breast documented in this encounter
--- OUTSIDE RECORDS SUMMARY | 2024-11-09 18:35 | XMS_ITS | Encounter Summary ---
Author Organization [facility] Address [address] [place] [address] Care Team Providers Care Microfilm Camera Operator Name Role Phone Unavailable Primary Care Provider Unavailabl e Reason for Visit * Reason Onset Date Comments Upper Respiratory Symptoms 09/12/2016 Encounter Details Date Type Department Care Team ([facility] st Contact Info) Description 09/12/2016 Telephone [facility] Oncology and Hematology - [place] [address] [facility] [address] [place] [address] Lj Fam MD [address] [facility] [address] [place] [address] Upper Respiratory Symptoms Social History Tobacco Use Types Packs/Day Years [...] Telephone Encounter - Jennifer Nielsen RN - 09/12/2016 10:12 AM CDT Pt c/o uri symptoms, states started Sat with head congestion that has resolved. Now she has chest congestion, feels like someone is sitting on my chest , wheezing and nonprod cough. Pt denies any fever. Pt is due tomorrow for cycle 1/[address] Fam, rx Levaquin ordered. Pt to come in tomorrow for scheduled OV and labwork. Jennifer Nielsen RN documented in this encounter Plan of Treatment Upcoming Encounters Date Type Department Care Team (Late st Contact Info) Description 02/01/2025 11:00 AM CDT Office Visit [facility] Oncology and Hematology - [place] [address] [facility] [address] [place] [address] Lj Fam MD [address] [facility] [address] [place] [address] documented as of this encounter Visit Diagnoses Not on filedocumented in this encounter
--- OUTSIDE RECORDS SUMMARY | 2024-11-09 18:35 | XMS_ITS | Encounter Summary ---
Author Organization [facility] Address [address] [place] [address] Care Team Providers Care Animal Care Specialist Name Role Phone Unavailable Primary Care Provider Unavailabl e Reason for Visit * Reason Comments Breast Cancer Encounter Details Date Type Department Care Team ([facility] st Contact Info) Description 01/15/2017 9:45 AM PROPELLANT ASSEMBLER Office Visit [facility] Oncology and Hematology [facility] [address] [place] [address] [facility] [address] [place] [address] [place] [address] [place] [address] [address] [place] [address] Malignant neoplasm of upper-outer quadrant of right female breast (Primary Dx); Malignant neoplasm of female breast, unspecified laterality, [...] Sign Reading Time Taken Comments Blood Pressure 110/78 01/15/2017 9:51 AM PROPELLANT ASSEMBLER Pulse 85 01/15/2017 9:51 AM PROPELLANT ASSEMBLER Temperature 36.7 ??C (98.1 ??F) 01/15/2017 9:51 AM CS T Respiratory Rate - - Oxygen Saturation - - Inhaled Oxygen Concentration - - Weight 78.5 kg (173 lb) 01/15/2017 9:51 AM PROPELLANT ASSEMBLER Height - - Body Mass Index 25.55 12/18/2016 9:08 AM PROPELLANT ASSEMBLER documented in this encounter Progress Notes * Lj Fam MD - 01/15/2017 10:24 AM CST HEMATOLOGY / ONCOLOGY PROGRESS NOTE [...] dose dense Taxol on October 31, 2016. ?? Interval History: Anamika started radiation therapy treatment one week ago. Review of system Constitutional: No fever; [...] headache; no change in vision; neuropathy involving bilateral feet is improving; no muscle weakness; no confusion; no seizures Ext no edema Objective: Vital signs in last 24 hours: As per nursing note Exam: Gen: NAD Lungs: Clear Cardiac: S1 and S2 without murmurs or gallops Abd: Soft, tender, no hepatomegally, no masses Extr: No LE edema Scheduled Meds:@MEDSSCHEDULED@ Continuous Infusions:@MEDSINFUSIONS@ Data Review: @PATHOLOGY@ Labs showed WBC 4.1 hemoglobin 10.9 platelet 242,000, creatinine 0.6. Potassium 3.9 @IMAGEIMP@ Assessment: Plan: Patient Active Problem List [...] osteopenia. Patient will continue vitamin D and calcium.? Chemotherapy-induced neuropathy. Neuropathy has improved on Neurontin. ?? Hypokalemia. Potassium is normal at 3.9. ?? Anemia secondary to chemotherapy. Hemoglobin 10.9 today. We will repeat CBC in 8 weeks ?? Follow-up in 8 weeks with repeat CBC and BMP Port flush on a monthly basis. ? 01/15/2017 Lj Fam MD ELLANT ASSEMBLER documented in this encounter Plan of Treatment Upcoming Encounters Date Type Department Care Team (Late st Contact Info) Description 02/01/2025 11:00 AM CDT Office Visit [facility] Oncology and Hematology [facility] [address] [facility] [address] [place] [address] Lj Fam MD [address] [facility] [address] [place] [address] documented as of this encounter Procedures Procedure Name Priority Date/Time Associated Diagnosis Comments CBC WITH DIFFERENTIAL Routine 01/15/2017 Malignant neoplasm of female breast, unspecified laterality, unspecified site of breast BASIC METABOLIC PANEL Routine 01/15/2017 Malignant neoplasm of female breast, unspecified laterality, unspecified site of breast documented in this encounter Results * CBC WITH DIFFERENTIAL (03/19/2017) Blood Lj Fam MD HEMATOLOGY ORDERABLE S EXTERNAL LAB * BASIC METABOLIC PANEL (03/19/2017) Blood Lj Fam MD CHEMISTRY ORDERABLES EXTERNAL LAB * BASIC METABOLIC PANEL (01/15/2017) Blood Lj Fam MD CHEMISTRY ORDERABLES EXTERNAL LAB * CBC WITH DIFFERENTIAL (01/15/2017) Blood Lj Fam MD HEMATOLOGY ORDERABLE S EXTERNAL LAB documented in this encounter Visit Diagnoses Diagnosis Malignant neoplasm of upper-outer quadrant of right female breast- Primary Malignant neoplasm of upper-outer quadrant of female breast Malignant neoplasm of female breast, unspecified laterality, unspecified site of breast documented in this encounter
--- OUTSIDE RECORDS SUMMARY | 2024-11-09 18:35 | XMS_ITS | Encounter Summary ---
Author Organization [facility] Address [address] [place] [address] Care Team Providers Care Associate Store Leader Name Role Phone Unavailable Primary Care Provider Unavailabl e Reason for Visit * Auth/Cert Specialty Diagnoses / Procedures Referred By Quinn cooper Referred To Contact Radiation Oncology [facility] Radiation Oncology [place] [address] [place] [address] Referral ID Status Reason Start Date Expiration Date Visits Re quested Visits Authorized [id number] 1 1 Encounter Details Date Type Department Care Team (Latest Contact Info) Description 01/01/2017 6:00 AM FOOD SANITARIAN - 01/01/2017 11:59 PM [facility] Hospital Encounter [facility] Radiation Therapy [address] [place] [address] Discharge Disposition: Home or Self Care Social [...] tablet Take 77 mcg by mouth daily field consultant . 12/26/2017 perindopril erbumine (ACEON) 2 mg Tablet Take 2 mg by mouth daily. 02/25/2018 documented as of this encounter Plan of Treatment Upcoming Encounters Date Type Department Care Team (Late st Contact Info) Description 02/01/2025 11:00 AM CDT Office Visit [facility] Oncology and Hematology - [place] [address] [facility] [address] [place] [address] Lj Fam MD [address] [facility] [address] [place] [address] documented as of this encounter Visit Diagnoses Not on filedocumented in this encounter
== END 2024-11-02 08:31 | disposition home or self-care (01) ==
PROVIDERS: PCP Internal Medicine; Visit Provider Internal Medicine
DX: E78.5 Hyperlipidemia, unspecified (principal); E03.9 Hypothyroidism, unspecified; R53.83 Other fatigue; E88.819 Insulin resistance, unspecified; E55.9 Vitamin D deficiency, unspecified; Z79.01 Long term (current) use of anticoagulants
CPT/HCPCS: 36415; 80053; 80061; 82306; 84443; 85610

== ENCOUNTER 2024-11-24 11:16 | Outpatient (CLI) | payer MEDICARE, SELFPAY ==
--- NOTE | 2024-11-24 11:28 | ECG_ITS ---
Test Date: 2024-11-24 11:35:02 Measurements Intervals [place] Rate: 88 P: 69 NH: 175 QRS: 7 QRSD: 86 T: 40 QT: 374 QTc: 454 Interpretive Statements SINUS RHYTHM SEPTAL MYOCARDIAL INFARCTION , OF INDETERMINATE AGE [40+ ms Q WAVE IN V1/V2] No previous ECG available for comparison Electronically Signed On 11-24-2024 15:28:31 SENIOR RISK ANALYST by Corey Reese M.D.
[2024-11-24 13:42] LABS: Add Urine Microscopic? YES; Appearance Urine Clear (Clear); Bacteria Urine None Seen /hpf; Bilirubin Urine Negative (Negative); Blood Urine Negative (Negative); Color Urine Yellow (Yellow); Glucose Urine UA Negative (Negative); Ketones Urine Trace mg/dL (Negative); Leukocyte Esterase Ur 1+ LEU/UL (Negative); Nitrate Urine Negative (Negative); Non Pathogenic Casts 0-2; Protein Urine Trace mg/dL (Negative); RBC Urine 0-2 /hpf (0-2); Squamous Epithelial Cell Urine None Seen /hpf (Few); Urobilinogen Urine 0.2 mg/dL (<2.0); WBC Urine 21-50 /hpf (0-3)
== END 2024-11-24 11:17 | disposition home or self-care (01) ==
LOC: ANHLAB 11:17 → ANHCARD 11:19
PROVIDERS: PCP Internal Medicine; Visit Provider Orthopaedic Surgery
DX: R53.83 Other fatigue (principal); I10 Essential (primary) hypertension; Z79.01 Long term (current) use of anticoagulants
CPT/HCPCS: 81001; 87086; 93005

== ENCOUNTER 2024-11-26 13:26 | Outpatient (CLI) | payer MEDICARE, SELFPAY ==
--- NOTE | ~2024-11-26 | US_ITS ---
BILATERAL LOWER EXTREMITY VENOUS ULTRASOUND Ordering provider: Bryson Cintron MD History: . Z86.718 - Personal history of other venous thrombosis and... . Comparison: None. FINDINGS: RIGHT LOWER EXTREMITY VEINS: --COMMON FEMORAL: Patent and free of thrombus. Normal compressibility, phasic flow and augmentation. --PROXIMAL SUPERFICIAL FEMORAL: Patent and free of thrombus. Normal compressibility, phasic flow and augmentation. --DISTAL SUPERFICIAL FEMORAL: Patent and free of thrombus. Normal compressibility, phasic flow and au gmentation. --POPLITEAL: Patent and free of thrombus. Normal compressibility, phasic flow and augmentation. --POSTERIOR TIBIAL: Patent and free of thrombus. Normal compressibility, phasic flow and augmentation . LEFT LOWER EXTREMITY VEINS: --COMMON FEMORAL: Patent and free of thrombus. Normal compressibility, phasic flow and augmentation. --PROXIMAL SUPERFICIAL FEMORAL: Patent and free of thrombus. Normal compressibility, phasic flow and augmentation. --DISTAL SUPERFICIAL FEMORAL: Patent and free of thrombus. Normal compressibility, phasic flow and au gmentation. --POPLITEAL: Patent and free of thrombus. Normal compressibility, phasic flow and augmentation. --POSTERIOR TIBIAL: Patent and free of thrombus. Normal compressibility, phasic flow and augmentation . IMPRESSION: Negative bilateral lower extremity venous US. No deep vein thrombosis. Reviewed, dictated and finalized at location A. ING FRAME TENDER
== END 2024-11-26 13:27 | disposition home or self-care (01) ==
PROVIDERS: PCP Internal Medicine; Visit Provider Orthopaedic Surgery
DX: Z86.718 Personal history of other venous thrombosis and embolism (principal)
CPT/HCPCS: 93970

== ENCOUNTER 2024-12-21 11:21 | Inpatient (IN) | payer MEDICARE, SELFPAY ==
[2024-12-21] VITALS (15 sets, daily range): BP systolic 120–149; BP diastolic 68–82; PULSE 93–114; RESP 14–22; TEMP 36.4–37.1; O2SAT 94–98; BMI 30.7
--- NOTE | ~2024-12-21 | XR_ITS ---
EXAMINATION: XR chest 2V DATE: 12/21/2024 14:40 INDICATION: Productive cough. TECHNIQUE: Frontal and lateral views of the chest were obtained. COMPARISON: Chest 2 view 05/27/2024, chest CT 10/26/2020 FINDINGS: There is chronic eventration of anterior right hemidiaphragm. There is mild scarring at the lung apices. There are mild airspace opacities in right mid and upper lung zones. There are small pl eural effusions. No pneumothorax. The heart size is normal. There are surgical clips in right axilla. Right mastectomy. IMPRESSION: 1. 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 2. Small pleural effusions. Reviewed, dictated and finalized at location A. MATIC TOOL REPAIRER
--- NOTE | ~2024-12-21 | CT_ITS ---
Clinical Indication: Shortness of breath CT Scan of the Chest with Contrast: Technique: Contiguous sections were acquired throughout the chest after intravenous administration of 100 cc of Omnipaque 350. Dose reduction technique was used on this scan by utilizing automated expos ure control and iterative reconstruction technique. The dose-length product (DLP) was 372.82 mGy-cm. COMPARISON: 10/26/2020 Findings: There is no evidence of any significant mediastinal, hilar or axillary lymphadenopathy. There is no f illing defect in the pulmonary arterial tree to suggest pulmonary embolus. There is no evidence of ao rtic dissection or aneurysm. No pericardial effusion. There are minimal bilateral pleural effusions. There is mild volume loss] type change in the right upper lobe, similar to prior exam. There is patch y groundglass opacity in the right upper lobe, and to a lesser extent in the right middle and lower l obes. There is minimal patchy opacity in the left lower lobe. There is left basilar atelectatic phipps e. Images through the upper abdomen reveal no abnormalities. Status post right mastectomy. Multiple righ t-sided rib fracture deformities are present, involving the third, fourth, fifth, and sixth ribs ante rolaterally, probably subacute, possibly acute in nature. There multiple small sclerotic lesions, pre dominantly at the lower thoracic and lumbar spine. Impression: No evidence of pulmonary embolus, aortic dissection, or aortic aneurysm. Right-sided rib fractures, as above, possibly acute to subacute in nature. Correlate for point tender ness. Mild patchy ground glass opacities, right lung worse than left. Findings suggest infectious/inflammat ory process versus possibly minimal pulmonary edema. Probable chronic changes in the right upper lobe with mild volume loss and bronchiectatic change and peripheral pleural-parenchymal thickening. This could reflect postradiation change, given associated appearance of prior right mastectomy. Multiple small sclerotic lesions in the spine, as above, which could reflect treated metastatic disea se. Reviewed, dictated and finalized at location M. [employer]OR LAYER'S HELPER Impression: No evidence of pulmonary embolus, aortic dissection, or aortic aneurysm. Right-sided rib fractures, as above, possibly acute to subacute in nature. Saige elate for point tenderness. Mild patchy ground glass opacities, right lung worse than left. Findings sugges t infectious/inflammatory process versus possibly minimal pulmonary edema. Probable chronic changes in the right upper lobe with mild volume loss and bron chiectatic change and peripheral pleural-parenchymal thickening. This could ref lect postradiation change, given associated appearance of prior right mastectom y. Multiple small sclerotic lesions in the spine, as above, which could reflect tr eated metastatic disease.
--- OUTSIDE RECORDS SUMMARY | 2024-12-21 12:11 | XMS_ITS | Data Portability ---
Author Organization [facility] [employer], Main Office Address [address] [place] [address] Care Team Providers Care Unix Developer Name Role Phone АНДРЕЙ NICHO Clerical Investigator MAINOR RVIER Primary Care Provider Assessment No assessment recorded. Plan of Treatment Reminders Order Date Submit Date Provider Last Modified By Organization Details Last Modified Time Details Appointments Post-Op 15 2024 10:00A M Nicho Farah MD Not available Not available Not available Lab None recorded. Referral None recorded. Procedures None recorded. Surgeries endoscopy , nasal/sin us, w/ maxillary antrostom y & tissue removal (SURG) 2024 025 Not available 12/11/2024 08:22:45 endoscopy , nasal/sin us, with frontal sinus explorati on (SURG) 2024 025 Not available 12/11/2024 08:22:45 endoscopy , nasal/sin us, w/ total ethmoidec sue (SURG) 2024 025 Not available 12/11/2024 08:22:45 Imaging None recorded. Medication Orders None recorded. Patient TargetsNo targets recorded. Patient InstructionsNo instructions recorded. Reason for Referral None Reported. Results Created Date Observation Date Name Description Value Unit Range Abnormal Flag Note LastModifiedBy Organization Detail LastModifiedTime 11/27/1910/13/2024 CT, sinus es, w/o contr ast No observ ation record ed. [facility] [address], [place], [address], 11/30/2024 08:22:54 11/27/192025 CT, sinus es, w/o contr ast No observ ation record ed. [facility] Not Available 2024 13:23:57 Result Notes None recorded. Problems Name Problem SNOMED Code Status Onset Date Resolution Date Notes Provider Name and Address Organization Details Recorded Time Numbness and tingling sensation of skin 025318807306 Active 2017 Not Available [facility] 3 19:46:48 Wears glasses 120103348 Active 2017 Not Available [facility] 3 19:46:48 Malignant tumor of breast 498322077 Active 2017 x2 Not Available [facility] 3 19:46:48 Dyspnea 820262691 Active 2017 Not Available [facility] 3 19:46:48 Neuropathy 083919624 Active 2017 Not Available [facility] 3 19:46:48 Impairment of balance 545231601 Active 2017 Not Available [facility] 3 19:46:48 Porokerato sis 856699619 Active 2017 Not Available [facility] 3 19:46:48 Arterioscl erosis of carotid artery 3882770059421 03 Active 2017 Not Available [facility] 3 19:46:48 Seasonal allergy 614365828 Active 2017 Not Available [facility] 3 19:46:48 Staphyloco ccal infectious disease 96461854 Active 2017 on R arm Not Available [facility] 3 19:46:48 Swelling 01308877 Active 2017 Not Available [facility] 3 19:46:48 Chronic maxillary sinusitis 68062323 Active 2024 Nicho Farah MD [address], [place], [address] , [facility] [employer] 5 10:48:33 Chronic ethmoidal sinusitis 18548806 Active 2024 Nicho Farah MD [address], [place], [address] , [facility] [employer] [facility] 10:48:41 Chronic frontal sinusitis 55058907 Active 2024 Nicho Farah MD [address], [place], [address] , [facility] [employer] [facility] 10:48:49 Chronic sinusitis 70388624 Active 2024 Shital Palacio [facility], [facility] [employer] [facility] 10:07:30 Problem Notes None recorded. Procedures Surgical History None recorded. Imaging Results Imaging Date Name Status LastModified by Organiz ation Details LastModified Time 10/13/2024 CT, sinuses, w/o contrast completed [facility] [address] [facility] [address], [place], [address], 11/30/2024 08:22:54 11/27/2024 CT, sinuses, w/o contrast completed [facility] Information not available 11/27/2024 13:23:57 Procedure Notes None recorded. Medical Equipment None Reported. Allergies No known drug allergies Medications Name Sig Start Date Stop Date Status Note LastModified by Organization Details LastModified Time furosemide 40 mg tablet active Not Available Not Available Not Available anastrozole 1 mg tablet 05/13 completed Not Available Not Available Not Available primidone 50 mg tablet TAKE 1 TABLET BY MOUTH EVERY DAY AT BEDTIME active Not Available Not Available No t Available cefprozil 500 mg tablet TAKE 1 TABLET BY MOUTH DAILY active Not Available Not Available No t Available ipratropium 0.5 mg-albutero l 3 mg (2.5 mg base)/3 mL nebulizatio n soln INHALE 1 VIAL (3 MILLILITE R) BY NEBULIZAT ION ROUTE 4 TIMES EVERY DAY FOR 10 DAYS active Not Available Not Available No t Available ammonium lactate 12 % lotion Apply 1 applicati on every day by topical route as needed. 12/10 completed Not Available Not Available Not Available azithromyci n 250 mg tablet TAKE 2 TABLETS BY MOUTH TODAY, THEN TAKE 1 TABLET DAILY FOR 4 DAYS DIRECTED 12/10 completed Not Available Not Available Not Available clotrimazol e-betametha sone 1 %-0.05 % lotion active Not Available Not Available Not Available urea 40 % topical cream APPLY TO THE AFFECTED AREA(S) BY TOPICAL ROUTE 2 TIMES PER DAY active Not Available Not Available No t Available Medrol (Nicholas) 4 mg tablets in a dose pack Take 1 dose pk by oral route as directed. 2024 active Not Available Not Available Not Avai lable Synthroid 100 mcg tablet active Not Available Not Available Not Available desoximetas one 0.05 % topical gel active Not Available Not Available Not Available clobetasol 0.05 % topical cream active Not Available Not Available Not Available diphenoxyla te-atropine 2.5 mg-0.025 mg tablet TAKE 1 - 2 TABLET BY MOUTH FOUR TIMES DAILY NEEDED FOR DIARRHEA active Not Available Not Available No t Available doxepin 10 mg capsule TAKE ONE CAPSULE BY MOUTH AT BEDTIME NEEDED BAD ITCH active Not Available Not Available No t Available ciprofloxac in 500 mg tablet 12/10 completed Not Available Not Available Not Available sulfamethox azole 800 mg-trimetho prim 160 mg tablet active Not Available Not Available Not Available triamcinolo ne acetonide 0.1 % topical cream active Not Available Not Available Not Available levothyroxi ne 75 mcg tablet TAKE 1 TABLET BY MOUTH EVERY DAY active Not Available Not Available No t Available levothyroxi ne 88 mcg tablet TAKE 1 TABLET BY MOUTH EVERY DAY active Not Available Not Available No t Available gabapentin 800 mg tablet TAKE 1 TABLET BY MOUTH TWICE A DAY active Not Available Not Available No t Available ropinirole 0.25 mg tablet TAKE 1 TABLET BY MOUTH AT BEDTIME active Not Available Not Available No t Available dicyclomine 20 mg tablet TAKE 1 TABLET BY MOUTH THREE TIMES A DAY active Not Available Not Available No t Available cephalexin 500 mg capsule 12/10 completed Not Available Not Available Not Available FV Vitamin C 1000 mg tablet Take by oral route. 2017 active Not Available Not Available Not Avai lable warfarin 2 mg tablet TAKE 2 TABLETS ORALLY ONCE DAILY active Not Available Not Available No t Available warfarin 5 mg tablet active Not Available Not Available No t Available gabapentin 300 mg capsule active Not Available Not Available Not Available montelukast 10 mg tablet TAKE 1 TABLET BY MOUTH EVERYDAY AT BEDTIME active Not Available Not Available No t Available hydroxyzine HCl 25 mg tablet active Not Available Not Available Not Available mupirocin 2 % topical ointment active Not Available Not Available Not Available warfarin 1 mg tablet TAKE 1 TABLET BY MOUTH EVERY DAY active Not Available Not Available No t Available cefuroxime axetil 500 mg tablet TAKE 1 TABLET BY MOUTH TWICE A DAY active Not Available Not Available No t Available levofloxaci n 500 mg tablet 12/10 completed Not Available Not Available Not Available letrozole 2.5 mg tablet TAKE 1 TABLET BY MOUTH EVERY DAY active Not Available Not Available No t Available cefdinir 300 mg capsule Take 1 capsule every 12 hours by oral route for 10 days. 2024 active Not Available Not Available Not Avai lable griseofulvi n ultramicros ize 250 mg tablet active Not Available Not Available Not Available Klor-Con M20 mEq tablet,exte nded release active Not Available Not Available Not Available One-A-Day Womens Formula 2017 active Not Available Not Available Not Avai lable calcium 2017 active Not Available Not Available Not Avai lable Advair HFA 115 mcg-21 mcg/actuati on aerosol inhaler active Not Available Not Available Not Available Xarelto 15 mg tablet active Not Available Not Available No t Available Xarelto 20 mg tablet active Not Available Not Available No t Available Creon 36,000 unit-114,00 0 unit-180,00 0 unit capsule,del ayed release active Not Available Not Available Not Available Fluzone High-Dose 9549-9444 (PF) 180 mcg/0.5 mL intramuscul ar syringe TO BE ADMINISTE RED BY PHARMACIS T FOR IMMUNIZAT ION 12/10 completed Not Available Not Available Not Available Breztri Aerosphere 160 mcg-9mcg-4. 8mcg/actuat ion HFA aerosol inhaler INHALE 2 PUFF BY MOUTH TWICE A DAY active Not Available Not Available No t Available Vitals Date Recorded Body weight Body mass index (BMI) Body height Body temperature Provider Name and Address Organization Details Last Updated DateTime 12/10/2024 46555.05 g 31.6 kg/m2 175.26 cm 98 [degF] Aliyah Lucero RN [facility] [employer] 12/10/2024 10:30:57 Social History Question Answer Notes LastModified by Organizat ion Details LastModified Time Tobacco Smoking Status Never Smoker Aliyah Lucero RN null, [employer] 12/10/2024 10:28:26 What Is Your Level Of Alcohol Consumption? None Information not available 12/10/2024 Sex: Unknown Functional Status None recorded. Mental Status None recorded. Family History Nothing Reported Notes:NO ENT Medical History Condition Response COPD Y Gynecological HistoryNo gynecological history recorded. Obstetrics History GPAL:G 0 P 0 0 0 0 Past Encounters Encounter ID Performer Location Encounter Start Date Encounter Closed Date Diagnosis/Indication Diagnosis SNOMED-CT Code Diagnosis ICD10 Code Diagnosis Note [id number] Nicho Farah MD [facility] [place] [address] [place] [address] 12/10/2024 10:19:01 12/10/2024 12:24:38 Chronic maxillary sinusitis 29825769 J32.0 Chronic et hmoidal sinusitis 53361336 J32.2 Chronic fr ontal sinusitis 96660911 J32.1 Health Concerns Section Related Observation LastModified by Organization Detai ls LastModified Time None Recorded Concern Status LastModified by Organization Details LastModified Time None Recorded Advance Directives Directive None Recorded Payers Encounter Date Sequence Insurance Name Policy Number Policy Rodriguez Covered Member ID Rodriguez Member ID Guarantor Name 12/10/2024 1 [place] Damien Pulido [id number] Damien Pulido 12/10/2024 2 [employer] (MEDICARE SUPPLEMENT) PLAN F Charly Tess [id number] Damien Pulido Notes Date Note Type Note Provider Name and Address Organization Details Recorded Time 12/10/2024 text/html This patient has a 1 year history of chronic cough. She was evaluated by an fiberglass model maker who found allergies to trees. A sinus CT demonstrated pansinusitis and left septal deviation. She has been on antibiotics without improvement. Nicho Farah MD [address] [place] [address], [facility] [address], [place], [address], [employer] 12/10/2024 10:49:31 OBGyn Episode No OBEpisode recorded.
--- OUTSIDE RECORDS SUMMARY | 2024-12-21 12:11 | XMS_ITS | Clinical Summary ---
Author Organization [facility] Address [address], [address] [place] [address] Phone Care Team Providers Care Concrete Swimming Pool Installer Name Role Phone Unavailable Primary Care Provider Unavailabl e Allergies No known active allergies Medications furosemide (LASIX) 40 MG Tablet TAKE 1 TABLET BY ORAL ROUTE EVERY DAY 2 6 Active SYNTHROID 125 MCG Tablet TAKE 1 TABLET BY ORAL ROUTE EVERY DAY 2 6 Active montelukast (SINGULAIR) 10 MG Tablet Take 10 mg by mouth daily. 1 6 Active [facility] [address] Particles TAKE ONE CAPSULE [...] 87 08/16/2016 9:45 AM CDT Temperature 36.7 C (98 F) 08/16/2016 9:45 AM CDT Respiratory Rate - [...] TdaP Immunization 1952 SARS-COV-2 Immunization (#1) 1957 Mammogram 1962 Pneumococcal Immunization (5 0+ years) (1 of 2 - PCV) 1971 Zoster Immunization (1 of 2) 1971 Colonoscopy 1997 Colorectal Cancer Screening 1997 Cologuard 2002 Immunochemical Fecal Occult Blood 2002 Respiratory Syncytial Virus (RSV) Immunization (Adult) (1 - Risk 60-74 years 1-dose series) 2012 Influenza Immunization (#1) 2024 Hepatitis B Immunization Aged Out No longer eligible based on patient's age to complete this topic Meningococcal Immunization (ACWY) Aged Out No longer eligible based on patient's age to complete this topic Rotavirus Immunization Aged Out No lo nger eligible based on patient's age to complete this topic Insurance [employer]
--- OUTSIDE RECORDS SUMMARY | 2024-12-21 12:11 | XMS_ITS | Patient Health Summary ---
Author Organization [facility] Address [address] [place] [address] Care Team Providers Care Grounds Caretaker Name Role Phone Chris Avalos PA-C Primary Care Provide r Note from [facility],non-owned Affiliates and Associated Physician Practices is amultiple site organization consisting of ambulatory clinics and hospital sitesin [place], [place], [place] and [place]. This disclosure is being madepursuant to the Care Everywhere program and may not contain all information available regarding this patient. Last updated 18.[facility] Allergies No known active allergies Medications * Be aware that medications may not be up to date on this document. Alwaysverify current medications with the patient. * warfarin (COUMADIN) 2 MG tablet(Started 02/20/2022) Take 5 mg by mouth once daily * rOPINIRole (REQUIP) 0.25 MG tablet(Started 02/07/2022) Take 0.25 mg by mouth at bedtime * pancrelipase (CREON 12,000) 86891-59640 units capsule * levothyroxine (SYNTHROID) 100 MCG [...] 83 04/30/2022 4:30 PM CDT Temperature 36.6 C (97.9 F) 04/30/2022 4:00 PM CDT Respiratory Rate 15 04/30/2022 4:30 PM CDT Oxygen Saturation 94% 04/30/2022 4:30 PM CDT Inhaled Oxygen Concentration - - Weight 87.5 kg (193 lb) 07/04/2022 9:36 AM CDT Height 175.3 cm (5' 9 ) 06/06/2022 9:06 AM CDT Body Mass Index 28.5 06/06/2022 9:06 AM CDT Medical Devices Implanted Type Area Taxicab Starter Device Identifier Shelf Expiration Date Model / Serial / Lot Screw Implanted:Qty: 1 on 04/30/2022 by Michel Mendieta MD at [facility] Right: Wrist [employer] [id number] / / Screw 2.7mm 20mm Mldir Nonster Bone Implanted:Qty: 1 on 04/30/2022 by Michel Mendieta MD at [facility] Right: Wrist [employer] [id number] / / Plate Implanted:Qty: 1 on 04/30/2022 by Michel Mendieta MD at [facility] Right: Wrist [employer] [id number] / / Screw 2.7mm 14mm Lopro Nonster Bone Lf Implanted:Qty: 2 on 04/30/2022 by Michel Mendieta MD at [facility] Right: Wrist [employer] [id number] / / Screw Implanted:Qty: 1 on 04/30/2022 by Michel Mendieta MD at [facility] Right: Wrist [employer] [id number] / / Screw 2.7mm 20mm Crsslck Tpr Head 3 Ld Implanted:Qty: 3 on 04/30/2022 by Michel Mendieta MD at [facility] Right: Wrist [employer] [id number] / / Screw 2.7mm 22mm Lck Jesse Nonster Bone Implanted:Qty: 2 on 04/30/2022 by Michel Mendieta MD at [facility] Right: Wrist [employer] [id number] / / Explanted Type Area Taxicab Starter Device Identifier Shelf Expiration Date Model / Serial / Lot Wire K .062in 6in Fx 2 Troc Explanted:Qty: 2 on 04/30/2022 by Michel Mendieta MD at [facility] Right: Wrist [employer] [id number] / / Wire K 1.6mm Ss Fx Nonster Explanted:Qty: 3 on 04/30/2022 by Michel Mendieta MD at [facility] Right: Wrist [employer] [id number] / / Screw 2.7mm 20mm Crsslck Lopro Nonlock Explanted:Qty: 1 on 04/30/2022 by Michel Mendieta MD at [facility] Right: Wrist [employer] [id number] / / Screw 2.7mm 20mm Crsslck Lopro Nonlock Explanted:Qty: 1 on 04/30/2022 by Michel Mendieta MD at [facility] Right: Wrist [employer] [id number] / / Procedures * XR WRIST RIGHT [...] Report dictated by Dawn Woodward MD (residential advisor). I, Lorne Ann MD have personally reviewed and interpreted this examination/study. > Interpreting Provider: Lorne Ann MD on 07/04/2022 10:06 AM Narrative 07/04/2022 10:06 AM CDT PROCEDURE: XR WRIST RIGHT 3VW OR MORE, DATE/TIME OF EXAM: 07/04/2022 9:33 AM, LOCATION [facility] INDICATION: S52.571D: Other closed intra-articular fracture of [...] MORE, DATE/TIME OF EXAM: 29:33 AM, LOCATION [facility] INDICATION: S52.571D: Other closed intra-articular fracture of [...] Report dictated by Dawn Woodward MD (residential advisor). I, Lorne Ann MD have personally reviewed [...] RUSSELL M.D. on 05/02/2022 5:30 PM . Narrative 05/02/2022 5:30 [...] 04/30/2022 3:13 PM CDT Abdoul Calvo MD 04/30/2022 3:17 PM Peripheral Nerve Block Procedure: Peripheral Nerve Block [...] TACOS SURGERY (04/30/2022 2:00 PM CDT) Narrative [facility] - 04/30/2022 2:00 PM CDT Fluoroscopy was used for this exam in the OR. Please see the Operative report. Michel Mendieta MD FLUOROSCOPY ORDERABL ES Performing Organization Address [facility]/ZIP Co de Phone Number [facility] * ETT LINE PERFORMABLE (04/30/2022 12:02 PM CDT) Narrative Janet Beebe Anes Asst - 04/30/2022 12:02 PM CDT Janet Beebe Anes Asst 04/30/2022 12:03 PM Endotracheal Tube Placement: Patient Location: OR. Intubation Event Date/Time: 04/30/2022 11:47 AM Procedure: intubation ([id number]). Procedure Section: Induction: standard IV Patient Position: [...] MD. Provider #2: Janet Beebe Anes Asst. Michel Barbour II, MD GENERAL ANESTHESIA ORDERABLES * BLOOD TYPE VERIFICATION (04/30/2022 9:54 AM CDT) ABO Rh A POS 04/30/2022 10:25 AM CDT [facility] Blood Bank BLOOD SPECIMEN / Unknown Lab Venipuncture / Unknown 04/30/2022 9:54 AM CDT 04/30/2022 9:57 AM CDT iMchel Mendieta MD LAB - BLOOD BANK ORD ERABLES [facility] [address] [place] [address], [place] [phone] * (ABNORMAL) PT-INR [facility] (04/30/2022 9:31 AM CDT) Only the most recent of2 resultswithin the time period is included. PT 20.6(H) 12.1 - 14.8 Seconds 04/30/2022 10:01 AM CDT [facility] H[facility] INR 1.8 See Comment 04/30/2022 10:01 AM CDT [facility] Comment:The suggested therap eutic range for standard coumadin (warfarin) therapy is an INR of 2.0-3.0. For high-risk patients (Mechanical Mitral Valve Prosthesis, etc.), the suggested prophylactic therapeutic range is an INR of 2.5-3.5. Blood BLOOD SPECIMEN / Unknown Venipuncture / Unknown 04/30/2022 9:31 AM CDT 04/30/2022 9:35 AM CDT Michel Mendieta MD LAB - COAGULATION OR DERABLES Performing Organization Address City/[facility]/ZIP Co de Phone Number [address] [address], [employer] [phone] * TYPE + SCREEN PANEL (04/30/2022 9:31 AM CDT) Antibody Screen NEG 10:21 AM CDT [facility] ABO Rh A POS 04/30/2022 10:21 AM CDT [facility] Blood Bank BLOOD SPECIMEN / Unknown Venipuncture / Unknown 04/30/2022 9:31 AM CDT 04/30/2022 9:36 AM CDT Michel Mendieta MD LAB - BLOOD BANK ORD ERABLES Performing Organization Address City/[facility]/ZIP Co de Phone Number [facility] [address] [place] [phone], [employer] [phone] * XR FOREARM RIGHT 2VW (04/09/2022 7:38 [...] fracture. Dictated by Geovani Foster MD (residential advisor). I, Dr. HU AGUAYO M.D. have personally reviewed and interpreted this examination/study. This report was electronically signed by HU AGUAYO M.D. on 04/10/2022 11:53 AM . Narrative 04/10/2022 11:53 [...] fracture. Dictated by Geovani Foster MD (residential advisor). Dr. HU Mittal M.D. have personally reviewed [...] fracture. Dictated by Geovani Foster MD (residential advisor). Dr. HU Mittal M.D. have personally reviewed and interpreted this examination/study. This report was electronically signed by HU AGUAYO M.D. on 04/10/2022 11:53 AM . Narrative 04/10/2022 11:53 [...] fracture. Dictated by Geovani Foster MD (residential advisor). I, Dr. HU AGUAYO M.D. have personally reviewed andinterpreted this examination/study. This report was electronically signed by HU AGUAYO M.D. on 04/10/2022 11:53 AM . Luana Skinner PA-C DIAGNOSTIC IMAGING O RDERABLES * (ABNORMAL) CBC W AUTO DIFFERENTIAL (04/09/2022 6:32 PM CDT) WBC 13.2(H) 3.5 - 10.5 10 3/uL 04/09/2022 6:43 PM [facility] RBC 4.03 3.80 - 5.20 10 6/uL 04/09/2022 6:43 PM [facility] Hemoglobin 12.9 12.0 - 15.6 g/dL 04/09/2022 6:43 PM [facility] Hematocrit 38.4 35.0 - 45.0 % 04/09/2022 6:43 PM [facility] MCV 95.3 80.7 - 98.3 fL 04/09/2022 6:43 PM [facility] MCH 32.0 26.7 - 34.0 pg 04/09/2022 6:43 PM [facility] MCHC 33.6 30.8 - 35.9 g/dL 04/09/2022 6:43 PM [facility] Platelet Count 227 150 - 400 10 3/uL 04/09/2022 6:43 PM [facility] RDW-SD 49.8 36.0 - 50.0 fL 04/09/2022 6:43 PM [facility] RDW-CV 14.1 11.2 - 14.8 % 04/09/2022 6:43 PM [facility] MPV 10.4 9.4 - 12.9 fL 04/09/2022 6:43 PM [facility] nRBC Absolute 0.00 0 10 3/uL 04/09/2022 6:43 PM [facility] nRBC Auto 0.0 0 /100 WBC 04/09/2022 6:43 PM [facility] Neutrophils % 87.6(H) 35.0 - 70.0 % 04/09/2022 6:43 PM [facility] Lymphocytes % 6.3(L) 20.0 - 43.0 % 04/09/2022 6:43 PM [facility] Monocytes % 5.1 5.0 - 13.0 % 04/09/2022 6:43 PM [facility] Eosinophils % 0.2 0.0 - 6.0 % 04/09/2022 6:43 PM CDT [facility] Basophil % 0.3 0.0 - 2.0 % 04/09/2022 6:43 PM CDT [facility] Neutrophils Absolute 11.6(H) 1.6 - 7.0 10 3/uL 04/09/2022 6:43 PM CDT [facility] Lymphocyte Absolute 0.8(L) 1.1 - 3.9 10 3/uL 04/09/2022 6:43 PM CDT [facility] Monocytes Absolute 0.67 0.26 - 1.07 10 3/uL 04/09/2022 6:43 PM CDT [facility] Eosinophils Absolute 0.02 0.00 - 0.47 10 3/uL 04/09/2022 6:43 PM CDT [facility] Basophils Absolute 0.04 0.00 - 0.08 10 3/uL 04/09/2022 6:43 PM T [facility] Immature Granulocytes % 0.5 0.0 - 1.0 % 04/09/2022 6:43 PM T [facility] Immature Granulocytes Absolute 0.07 04/09/2022 6:43 PM T [facility] Blood BLOOD SPECIMEN / Unknown Venipuncture / Unknown 04/09/2022 6:32 PM CDT 04/09/2022 6:39 PM CDT Erica Ng MECHANIC CHIEF-DYNAMICS AX SOLUTION ARCHITECT LAB - HEMATO LOGY ORDERABLES Performing Organization Address City/State/[facility] Co de Phone Number [address] [address], [facility] [phone] * MRI BREAST BILAT WWO CONTRAST (07/04/2016 [...] was electronically signed by BERYL TUCKER M.D. on 07/04/2016 12:33 PM . Narrative 07/04/2016 12:33 PM CDT BILATERAL BREAST MRI HISTORY: 66-year-old with history of right-sided breast cancer status post breast conservation therapy in 1994, who presented with new nipple inversion developing firmness of the right breast in May of this year, status post biopsy reported as invasive mammary carcinoma. COMPARISON: Comparison was made to multiple prior outside mammograms including 05/29/2016, 11/08/2014, and 11/06/2013 performed at [facility]. TECHNIQUE: Multiplanar multisequence MR imaging of both breasts before and following the administration of intravenous gadolinium contrast. Dynamic phase imaging was performed in the axial plane. Exam was processed by and interpreted on a [employer] lining maker hand including 3-D volume rendering, subtraction image processing [...] are within normal limits. Procedure Note Aurora uTcker MD - 02/08/2018 BILATERAL BREAST MRI HISTORY: 66-year-old with history of right-sided breast cancer statuspost breast conservation therapy in 1994, who presented with new nippleinversion developing firmness of the right breast in May of this year,status post biopsy reported as invasive mammary carcinoma. COMPARISON: Comparison was made to multiple prior outside mammogramsincluding 05/29/2016, 11/08/2014, and 11/06/2013 performed at [facility]. TECHNIQUE: Multiplanar multisequence MR imaging of both breasts before andfollowing the administration of intravenous gadolinium contrast. Dynamicphase imaging was performed in the axial plane. Exam was processed by andinterpreted on a [employer] lining maker hand including 3-D volume rendering, subtraction image processing [...] ORDERABLES * CREATININE BLOOD - POCT (IP) [facility] (07/04/2016) Creatinine POCT 0.89 0.3 - 1.3 mg/dL [facility] eGFR POCT 60 60 ml/min [facility] 07/04/2016 Sebastian Nuno MD LAB - POINT OF CARE ORDERABLES [facility] Care Teams Grounds Caretaker Relationship Specialty Start Date End Date Chris Avalos PA-C [address] [place] [address] PCP - General 04/25/22
--- OUTSIDE RECORDS SUMMARY | 2024-12-21 12:11 | XMS_ITS ---
Author Organization [facility] Address [address] [place] [address] Phone Care Team Providers Care Generalist Name Role Phone Unavailable Primary Care Provider [...]
--- OUTSIDE RECORDS SUMMARY | 2024-12-21 12:11 | XMS_ITS | Clinical Summary ---
Author Organization [facility] Address [address] [place] [address] Care Team Providers Care Retail Aide Name Role Phone Chris Avalos PA-C Primary Care Provide r Source Comments [facility],non-owned Affiliates and Associated Physician Practices is amultiple site organization consisting of ambulatory clinics and hospital sitesin [place], [place], [place]. This disclosure is being madepursuant to the Care Everywhere program and may not contain all information available regarding this patient. Last updated 18.[facility] [employer] Allergies No known active allergies Medications * [...] at bedtime 02/07/2022 Active pancrelipase (CREON 12,000) 37600-86078 units capsule Active levothyroxine (SYNTHROID) 100 MCG [...] LIPID TESTING 1950 MAMMOGRAM 1950 MEDICARE AWV 12 MONTHS 1950 HEPATITIS C SCREENING 03/08/1970 PNEUMOCOCCAL VACCINE 50+ (1 of 1 - PCV) 2002 ZOSTER VACCINE (1 of 2) 2002 SCREENING FOR DIABETES 04/25/2022 COVID-19 VACCINE (3 - 2023-2 5 season) 2024 01/07/2021, 12/10/2020 INFLUENZA VACCINE (#1) 2024 07/13/2020 DEPRESSION SCREENING 11/11/2024 Respiratory Syncytial Virus (RSV) Vaccine Pt: or [...] patient's age to complete this topic MENINGOCOCCAL (Group B) VACCINE Aged Out No longer eligible b ased on patient's age to complete this topic MENINGOCOCCAL VACCINE Aged Out No fred anali eligible based on patient's age to complete this topic Medical Devices Implanted Type Area Steam Shovelman Device Identifier Shelf Expiration Date Model / Serial / Lot Screw Implanted:Qty: 1 on 04/30/2022 by Michel Mendieta MD at [facility] Right: Wrist [employer] [id number] / / Screw 2.7mm 20mm Mldir Nonster Bone Implanted:Qty: 1 on 04/30/2022 by Michel Mendieta MD at [facility] Right: Wrist [employer] [id number] / / Plate Implanted:Qty: 1 on 04/30/2022 by Michel Mendieta MD at [facility] Right: Wrist [employer] [id number] / / Screw 2.7mm 14mm Lopro Nonster Bone Lf Implanted:Qty: 2 on 04/30/2022 by Michel Mendieta MD at [facility] Right: Wrist [employer] [id number] / / Screw Implanted:Qty: 1 on 04/30/2022 by Michel Mendieta MD at [facility] Right: Wrist [employer] [id number] / / Screw 2.7mm 20mm Crsslck Tpr Head 3 Ld Implanted:Qty: 3 on 04/30/2022 by Michel Mendieta MD at [facility] Right: Wrist [employer] [id number] / / Screw 2.7mm 22mm Lck Jesse Nonster Bone Implanted:Qty: 2 on 04/30/2022 by Michel Mendieta MD at [facility] Right: Wrist [employer] [id number] / / Explanted Type Area Steam Shovelman Device Identifier Shelf Expiration Date Model / Serial / Lot Wire K .062in 6in Fx 2 Troc Explanted:Qty: 2 on 04/30/2022 by Michel Mendieta MD at [facility] Right: Wrist [employer] [id number] / / Wire K 1.6mm Ss Fx Nonster Explanted:Qty: 3 on 04/30/2022 by Michel Mendieta MD at [facility] Right: Wrist [employer] [id number] / / Screw 2.7mm 20mm Crsslck Lopro Nonlock Explanted:Qty: 1 on 04/30/2022 by Michel Mendieta MD at [facility] Right: Wrist [employer] [id number] / / Screw 2.7mm 20mm Crsslck Lopro Nonlock Explanted:Qty: 1 on 04/30/2022 by Michel Mendieta MD at [facility] Right: Wrist [employer] [id number] / / Care Teams Retail Aide Relationship Specialty Start Date End Date Chris Avalos PA-C [address] [place] [address] PCP - General 04/25/22
--- OUTSIDE RECORDS SUMMARY | 2024-12-21 12:11 | XMS_ITS | Clinical Summary ---
Author Organization [facility] Address [address] [place] [address] Care Team Providers Care Janitor Supervisor Name Role Phone Ankit Villafuerte Primary Care Provider [phone] Allergies No known active allergies Medications cholecalciferol , vitamin D3, 5,000 unit Take 5,000 Units [...] EVERY DAY 90 Tablet 3 10/16/2024 Active Active Problems Problem Noted Date Diagnosed Date Osteoporosis due to aromatase inhibitor 10/20/20 18 Screening for osteoporosis 12/21/2016 Malignant neoplasm of upper- outer quadrant of right female breast 08/27/2016 Cancer Staging:Clinical:Stage IIIB(T4, N0, M0) - Unsigned Acquired hypothyroidism 08/27/2016 Encounters Date Type Department Care Team Description 12/02/2024 External Device Data [facility] Provider, Abstract 12/02/2024 External Device Data [facility] Provider, Abstract 11/25/2024 External Device Data [facility] Provider, Abstract 10/16/2024 Refill [facility] [address] [place] [address] Lj Fam MD 10/14/2024 Abstract [facility] [address] [place] [address] Lj Fam MD 10/14/2024 Telephone [facility] [address] [place] [address] Lj Fam MD Surgical Clearance from Last 3 Months Family History Medical History Relation Name Comments Heart Disease Father Breast Cancer Mother Relation Name Status Comments Father Mother Social History Tobacco Use Types Packs/Day Years Used Date Smoking Tobacco: Never Tobacco Cessation:Counseling Given: Not Answered Alcohol Use Standard Drinks/Week Comments Yes 0 (1 standard drink = 0.6 oz pur e alcohol) Comments No Sex and Gender Information Value Date Recorded Sex Assigned at Not on file Legal Sex Female 4:26 AM FLAGGER Gender Identity Not on file Sexual Orientation Not on file Last Filed Vital Signs Vital Sign Reading Time Taken Comments Blood Pressure 128/74 07/30/2024 11:06 AM CDT Pulse 84 07/30/2024 11:01 AM CDT Temperature 36.7 C (98 F) 07/30/2024 11:01 AM CDT Respiratory Rate 16 [...] Care Team (Late st Contact Info) Description 02/23/2025 11:45 AM CDT Office Visit [facility] [place] [address] [facility] [address] [place] [address] Lj Fam MD [address] [facility] [address] [address] [place] [address] Health Maintenance Due Date Last Done Comments Traditional Medicare (ACO) A nnual Wellness Visit 1971 FIT-DNA Q 3 years 1997 FIT/FOBT Q 1 year 1997 Flex Sig/CT Colonography Q 5 years 1997 PNEUMOCOCCAL VACCINE 65+ YEA RS (1 of 1 - PCV) 2002 ZOSTER VACCINE (1 of 2) 2002 INFLUENZA VACCINE (#1) 2024 BREAST CANCER SCREENING 07/20/2025 07/20/20 24, 07/18/2023, 06/29/2021, Additional history exists RSV VACCINE [...] Bilateral Other Lj Fam MD MAMMO ORDERABLES Final Result * XR DEXA BONE DENSITY AXIAL 1 OR MORE SITES (07/13/2021) Anatomical Region Laterality Modality Other Lj Fam MD DIAGNOSTIC IMAGING ORDERABLES F inal Result from Last 3 Months or Most Recently Relevant to Health Maintenance Insurance MEDICARE PART A AND B [employer] [facility] MEDICARE PART A AND B [employer] SUPP Care Teams Janitor Supervisor Relationship Specialty Start Date End Date Ankit Villafuerte DO [address] [facility] [address] [address] [facility] [address] [place] [address] PCP - General Internal Medicine 07/30/24
--- OUTSIDE RECORDS SUMMARY | 2024-12-21 12:11 | XMS_ITS | Referral Summary ---
Author Organization [facility] Address [address] [place] [address] Care Team Providers Care Supervisor [employer] Name Role Phone Chris Avalos PA-C Primary Care Provide r Source Comments [facility],non-owned Affiliates and Associated Physician Practices is amultiple site organization consisting of ambulatory clinics and hospital sitesin [place], [place], [place]. This disclosure is being madepursuant to the Care Everywhere program and may not contain all information available regarding this patient. Last updated 18.[facility] [employer] Allergies No known active allergies Medications * [...] at bedtime 02/07/2022 Active pancrelipase (CREON 12,000) 12371-34179 units capsule Active levothyroxine (SYNTHROID) 100 MCG [...] on file Medical Devices Implanted Type Area Roving Hand Device Identifier Shelf Expiration Date Model / Serial / Lot Screw Implanted:Qty: 1 on 04/30/2022 by Michel Mendieta MD at [facility] Right: Wrist [employer] [id number] / / Screw 2.7mm 20mm Mldir Nonster Bone Implanted:Qty: 1 on 04/30/2022 by Michel Mendieta MD at [facility] Right: Wrist [employer] [id number] / / Plate Implanted:Qty: 1 on 04/30/2022 by Michel Mendieta MD at [facility] Right: Wrist [employer] [id number] / / Screw 2.7mm 14mm Lopro Nonster Bone Lf Implanted:Qty: 2 on 04/30/2022 by Michel Mendieta MD at [facility] Right: Wrist [employer] [id number] / / Screw Implanted:Qty: 1 on 04/30/2022 by Michel Mendieta MD at [facility] Right: Wrist [employer] [id number] / / Screw 2.7mm 20mm Crsslck Tpr Head 3 Ld Implanted:Qty: 3 on 04/30/2022 by Michel Mendieta MD at [facility] Right: Wrist [employer] [id number] / / Screw 2.7mm 22mm Lck Jesse Nonster Bone Implanted:Qty: 2 on 04/30/2022 by Michel Mendieta MD at [facility] Right: Wrist [employer] [id number] / / Explanted Type Area Roving Hand Device Identifier Shelf Expiration Date Model / Serial / Lot Wire K .062in 6in Fx 2 Troc Explanted:Qty: 2 on 04/30/2022 by Michel Mendieta MD at [facility] Right: Wrist [employer] [id number] / / Wire K 1.6mm Ss Fx Nonster Explanted:Qty: 3 on 04/30/2022 by Michel Mendieta MD at [facility] Right: Wrist [employer] [id number] / / Screw 2.7mm 20mm Crsslck Lopro Nonlock Explanted:Qty: 1 on 04/30/2022 by Michel Mendieta MD at [facility] Right: Wrist [employer] [id number] / / Screw 2.7mm 20mm Crsslck Lopro Nonlock Explanted:Qty: 1 on 04/30/2022 by Michel Mendieta MD at [facility] Right: Wrist [employer] [id number] / / Care Teams Supervisor [employer] Relationship Specialty Start Date End Date Chris Avalos PA-C [address] [place] [address] PCP - General 04/25/22
--- OUTSIDE RECORDS SUMMARY | 2024-12-21 12:11 | XMS_ITS | Encounter Summary ---
Author Organization [facility] Address [address] [place] [address] Care Team Providers Care Hair Colorist Name Role Phone Ankit Villafuerte DO Primary Care Provider [phone] Encounter Details Date Type Department Care Team (Late Contact Info) Description 2019 Chart Note [facility] Radiation Therapy [address] [place] [address] [place] [address] [place] [address] Social History Tobacco Use Types Packs/Day Years Used Date Smoking Tobacco: Never Alcohol Use Standard Drinks/Week Comments Yes 0 (1 standard drink = 0.6 oz pur e alcohol) Comments No Sex and Gender Information Value Date Recorded Sex Assigned at Not on file Legal Sex Female 4:26 AM TIMBER ESTIMATOR Gender Identity Not on file Sexual Orientation Not on file documented as of this encounter Plan of Treatment Upcoming Encounters Date Type Department Care Team (Late Contact Info) Description 02/23/2025 11:45 AM CDT Office Visit [facility] Oncology and Hematology - Jose [address] [facility] [address] [place] [address] Lj Fam MD [address] [facility] [address] [place] [address] documented as of this encounter Visit Diagnoses Not on filedocumented in this encounter Care Teams Hair Colorist Relationship Specialty Start Date End Date Ankit Villafuerte DO [address] [facility] [address] [place] [address] PCP - General Internal Medicine 07/30/24 documented as of this encounter
--- OUTSIDE RECORDS SUMMARY | 2024-12-21 12:11 | XMS_ITS | Clinical Summary ---
Author Organization [facility] Address [address] [place] [id number] Care Team Providers Care Bolt Header Name Role Phone Ankit Villafuerte DO Primary Care Provider [phone] Allergies No known active allergies Medications warfarin (COUMADIN) 5 MG tablet Take 4.5 mg by mouth daily. Active Encounters Date Type Department Care Team Description 09/28/2024 3:00 PM SLOT TECHNICIAN - 09/28/2024 5:57 PM SLOT TECHNICIAN Emergency [facility] Emergency Room [id number] [place] [address] Syeda Gayle MD Laceration Discharge Disposition: Home [...] Comments Blood Pressure 137/83 09/28/2024 5:55 PM SLOT TECHNICIAN Pulse 73 09/28/2024 5:55 PM SLOT TECHNICIAN Temperature 36.2 C (97.1 F) 09/28/2024 5:55 PM SLOT TECHNICIAN Respiratory Rate 18 09/28/2024 5:55 PM SLOT TECHNICIAN Oxygen Saturation 98% 09/28/2024 5:55 PM SLOT TECHNICIAN Inhaled Oxygen Concentration - - Weight 97.1 kg (214 lb 1.1 oz) 09/28/2024 3:00 P M SLOT TECHNICIAN Height 175.3 cm (5' 9 ) 09/28/2024 3:00 PM SLOT TECHNICIAN Body Mass Index 31.61 09/28/2024 3:00 PM SLOT TECHNICIAN Plan of Treatment Health Maintenance Due Date [...] 09/17/2024, 12/2019, 10/02/2019, Additional history exists Meningococcal B Vaccine Aged Out No l onger eligible based on patient's age to complete this topic Meningococcal Vaccine Aged Out No fred anali eligible based on patient's age to complete this topic RSV Immunizations Under 20 Months Aged Out No longer eligible based on patient's age to complete this topic Procedures Procedure Name Priority Date/Time Associated Diagnosis Comments LACERATION REPAIR Routine 09/28/2024 5:4 6 PM SLOT TECHNICIAN XR FOREARM LT 2V STAT 09/28/2024 3:48 PM SLOT TECHNICIAN from Last 3 Months Results * Lac Repair (09/28/2024 5:46 PM SLOT TECHNICIAN) Narrative Syeda Gayle MD - 09/28/2024 5:46 PM SLOT TECHNICIAN Syeda Gayle MD 09/28/2024 5:49 PM Lac Repair Date/Time: 09/28/2024 5:46 PM Performed by: Syeda Gayle MD Authorized by: Syeda Gayle MD Consent: Consent obtained: Verbal Consent given by: Patient Risks, benefits, and alternatives were discussed: yes Risks discussed: Pain and infection Florence protocol: Patient identity confirmed: Verbally with patient [...] ointment and non-adherent dressing Procedure completion: Tolerated Syeda Gayle MD PROCEDURE/MINOR SURGICAL ORDE KEVIN Final Result * XR FOREARM LT 2V (09/28/2024 3:48 PM SLOT TECHNICIAN) Anatomical Region Laterality Modality Forearm Radiographic Kymberly ging 09/28/2024 3:51 PM SLOT TECHNICIAN Impressions 09/28/2024 3:53 PM SLOT TECHNICIAN IMPRESSION: 1. No fracture or dislocation. Mild soft tissue swelling as above Ordered By: SYEDA GAYLE Interpreted By: Ricci Neal, 09/28/2024 3:51 PM Narrative 09/28/2024 3:53 PM SLOT TECHNICIAN [address] [place] [phone] IMAGING STUDIES: XR FOREARM LT 2V DATE: [...] Procedure Note Torito Neal MD - 09/28/2024 [facility] [address] [place] [phone] IMAGING STUDIES: XR FOREARM LT 2V DATE: [...] Final Result from Last 3 Months Insurance [employer] MEDICARE [facility] [employer] Care Teams Bolt Header Relationship Specialty Start Date End Date Ankit Villafuerte DO [address] [address] PCP - General INTERNAL MEDICINE 09/28/24
--- NOTE | 2024-12-21 13:26 | ED_ITS ---
HPI - SOB/Dyspnea General Chief Complaint: Shortness of Breath/Dyspnea <Nevin William PA-C - Last Filed: 12/23/24 18:33> Stated Complaint: shortness of breath, cough, weakness <Nevin William PA-C - Last Filed: 12/23/24 18:33> Time Seen by Provider: 12/21/24 13:26 <Nevin William PA-C - Last Filed: 12/23/24 18:33> Focused HPI: This is a 74 year old female that presents to the ER for shortness of breath. Reports productive cough, congestion. Reports she is currently on a steroid and Cefdinir. Denies fevers. GENERAL: Well-appearing, well-nourished, and in no acute distress. HEAD: Normocephalic, atraumatic. CHEST: Clear to auscultation. ?No respiratory distress. HEART: Regular rate and rhythm.? NEURO: ?Alert and oriented x3. Patient screened in triage and initial orders placed.? ?Additional care and disposition to be based upon?diagnostic testing and treatment. <Nevin William PA-C - Last Filed: 12/23/24 18:33> History of Present Illness HPI Narrative: I agree with the above HPI <Gianluca Nolasco MD - Last Filed: 12/21/24 20:01> Related Data Home Medications: Home Medications ?Medication ?Instructions ?Recorded ?Confirmed ?Last Taken ?Type gabapentin 800 mg tablet 800 mg PO QHS 05/20/23 12/21/24 Unknown History loratadine 10 mg tablet (Claritin) 10 mg PO DAILY 11/25/23 12/21/24 Unknown History triprolidine 1.25 mg-PE 5 mg-DM 10 1 ea PO QHS 11/25/23 12/21/24 Unknown History mg-acetamin 325 mg-GG (nt) tablets (Mucinex Sinus-Max Day-Night) cefdinir 300 mg capsule 300 mg PO Q12H 12/21/24 12/21/24 Unknown History methylprednisolone 4 mg tablets in 4 mg PO Q12H 12/21/24 12/21/24 Unknown History a dose pack <Nevin William PA-C - Last Filed: 12/23/24 18:33> Allergies/Adverse Reactions: Allergies Allergy/AdvReac Type Severity Reaction Status Date / Time No Known Allergies Allergy Verified 12/21/24 17:11 <Nevin William PA-C - Last Filed: 12/23/24 18:33> Review of Systems 2 Review of Systems: All systems reviewed & are unremarkable except as noted in HPI and below <Gianluca Nolasco MD - Last Filed: 12/21/24 20:01> [facility] Past Medical History Medical History: Medical History (Updated 12/23/24 @ 18:33 by Nevin William PA-C) Restless leg syndrome Chronic anticoagulation Superior vena cava thrombosis Cervical cancer status post radiation and chemotherapy Degenerative joint disease Chronic obstructive pulmonary disease suspected though no formal diagnosis per patient report Allergies Exocrine pancreatic insufficiency Osteoporosis due to aromatase inhibitor Hypothyroidism, unspecified 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 status post mastectomy and neoadjuvant chemotherapy, radiation, and hormone therapy <Nevin William PA-C - Last Filed: 12/23/24 18:33> Surgical History Surgical History: Surgical History (Updated 12/21/24 @ 21:52 by Fela Sparks PA-C) History of open reduction and internal fixation (ORIF) procedure repair right wrist fracture History of arthroscopy of both knees History of cholecystectomy History of appendectomy History of right mastectomy (11/2016) <Nevin Wililam PA-C - Last Filed: 12/23/24 18:33> Family History Family History: Family History Father Family history of diabetes mellitus in first degree relative Family history of congestive heart failure Mother Family history of malignant neoplasm of breast in first degree relative Other Family history of malignant neoplasm <Nevin William PA-C - Last Filed: 12/23/24 18:33> Social History Social History: Social History Social History: Surrogate medical decision maker: Charly Pulido, spouse. Code status: FULL CODE. Smoking status: Never smoker Second hand tobacco smoke exposure: No Alcohol intake: never Alcohol use details: Social alcohol use in the past, non since 2013. Substance use: never Substance use type: does not use Do You Feel Safe in your Home?: Yes Lack of Transportation: No Lack of Food: Never True Current Housing: I Have Housing Concerned About Future Housing: No Difficulty Paying Gas/Electric Bills: No Difficulty Paying for Meds: No Currently Unemployed: No Education: Associate Degree Difficulty w/ Childcare or Family Care: No Living arrangements: with family Spiritual care concerns: No <Nevin William PA-C - Last Filed: 12/23/24 18:33> Exam 2 Narrative: APPEARANCE: ill appearing with increased work of breathing HEAD: normocephalic, atraumatic. EYES: PERRLA/EOMI, conjunctivae clear. NOSE: Normal no drainage EARS:TMS clear with good light reflex. THROAT: Pharynx clear, no exudate. NECK: Supple. No adenopathy, no masses. RESPIRATORY: lung congestion with increased work of breathing, expiratory wheeze CARDIOVASCULAR: Regular rate and rhythm without murmurs rubs or gallops. ABDOMINAL: Soft, nontender, nondistended, normal bowel sounds MUSCULOSKELETAL: Moves all extremities. Strength/ROM intact, No edema, No calf tenderness. no reproducible right-sided chest wall tenderness concerning for acute rib fracture NEURO: Alert. Cranial nerves II through XII intact. grossly intact SKIN: Warm, dry. Normal Color <Gianluca Nolasco MD - Last Filed: 12/21/24 20:01> Course Vital Signs Vital signs: Vital Signs Temperature 98.7 F 12/21/24 12:19 Pulse Rate 110 H 12/21/24 12:19 Respiratory Rate 18 12/21/24 12:19 Blood Pressure 137/74 12/21/24 12:19 Pulse Oximetry 95 12/21/24 12:19 Oxygen Delivery Room Air 12/21/24 12:19 Temperature 97.3 F L 12/23/24 14:00 Pulse Rate 88 12/23/24 14:50 Respiratory Rate 20 12/23/24 14:50 Blood Pressure 144/90 H 12/23/24 14:00 Pulse Oximetry 97 12/23/24 14:00 Oxygen Delivery Nasal Cannula 12/23/24 09:41 Oxygen Flow Rate 2 12/23/24 09:41 <Nevin William PA-C - Last Filed: 12/23/24 18:33> Vital Signs Temperature 98.7 F 12/21/24 12:19 Pulse Rate 110 H 12/21/24 12:19 Respiratory Rate 18 12/21/24 12:19 Blood Pressure 137/74 12/21/24 12:19 Pulse Oximetry 95 12/21/24 12:19 Oxygen Delivery Room Air 12/21/24 12:19 Temperature 97.3 F L 12/23/24 14:00 Pulse Rate 88 12/23/24 14:50 Respiratory Rate 20 12/23/24 14:50 Blood Pressure 144/90 H 12/23/24 14:00 Pulse Oximetry 97 12/23/24 14:00 Oxygen Delivery Nasal Cannula 12/23/24 09:41 Oxygen Flow Rate 2 12/23/24 09:41 <Gianluca Nolasco MD - Last Filed: 12/21/24 20:01> MDM - SOB/Dyspnea MDM Narrative Medical decision making narrative: 74-year-old female with history of breath cancer x2 and cervical cancer x1 presented emergency department for evaluation for increased shortness of breath. Patient was diagnosed with a pneumonia approximately a week ago has been on prednisone and on cefdinir. Patient did complete her prednisone taper and is still on cefdinir. Patient reports that she feels as if she is worsening. Patient has a very congested lung sounds. Patient does have some expiratory wheeze on exam. Patient did feel improved with the breathing treatment but patient does still have significant work of breathing. Patient is afebrile but does have a leukocytosis of 16.2, this could be secondary to her prednisolone versus active infection. Patient's hemoglobin is 12.2. Patient is on Coumadin has an INR of 2.4. Patient has no acute abnormalities on her CMP patient was negative for influenza RSV and for COVID. CTA did show evidence of infection versus inflammation versus fibrosis secondary to radiation therapy. CTA was negative for pulmonary embolism. Patient denies any prior history of MRSA infection. Due to her worsening pneumonia and increased workup breathing patient was started on Rocephin, a Zithromax an and vancomycin with MRSA swabs pending. Case will be discussed with the hospitalist. <Gianluca Nolasco MD - Last Filed: 12/21/24 20:01> Differential Diagnosis Differential diagnosis: Likely acute exacerbation of chronic obstructive airways disease, congestive heart failure, community acquired pneumonia, asthma with exacerbation, pulmonary embolism and other <Gianluca Nolasco MD - Last Filed: 12/21/24 20:01> Lab Data Attestation: I reviewed the patient's lab results. <Gianluca Nolasco MD - Last Filed: 12/21/24 20:01> Result diagrams: 12/23/24 08:05 12/23/24 08:05 <Nevin William PA-C - Last Filed: 12/23/24 18:33> Labs: Lab Results 12/21/24 12/21/24 12/22/24 Range/Units 15:18 18:35 02:42 WBC 16.2 H (4.5-10.0) K/mm3 RBC 3.78 L (4.2-5.4) M/mm3 Hgb 12.2 (12.0-15.0) g/dL Hct 36.7 L (37.0-47.0) % MCV 97.1 (80-100) fl MCH 32.3 (26-34) pg MCHC 33.2 (32-36) g/dl RDW 16.1 H (11.5-14.5) % Plt Count 231 (150-375) k/mm3 MPV 9.9 (7.4-10.4) fl Immature Gran % (Auto) Not Reportable Neut % (Auto) Not Reportable Lymph % (Auto) Not Reportable Bradley % (Auto) Not Reportable Eos % (Auto) Not Reportable Baso % (Auto) Not Reportable Lymph # (Auto) Not Reportable Bradley # (Auto) Not Reportable Eos # (Auto) Not Reportable Baso # (Auto) Not Reportable Abs Immat Gran (auto) Not Reportable Absolute Neuts (auto) Not Reportable Absolute Nucleated RBC Not Reportable Total Counted 100 Neutrophils % (Manual) 90 H (46-73) % Band Neutrophils % 1 (0-6) % Lymphocytes % (Manual) 5.0 L (18-44) % Monocytes % (Manual) 4 (3-9) % Nucleated RBC % Not Reportable Abs Neuts (Manual) 14.74 H (1.7-7.2) K/mm3 Abs Lymphs (Manual) 0.81 L (1.1-4.5) K/mm3 Abs Monocytes (Manual) 0.64 (0.1-0.90) K/mm3 Platelet Estimate Adequate (Adequate) Anisocytosis 2+ Schistocytes None seen PT 26.0 H (11.1-14.7) Seconds INR 2.4 APTT 39.3 H (22.3-36.8) Seconds Sodium 135 L (137-145) mmol/L Potassium 3.8 (3.4-5.0) mmol/L Chloride 101 (98-107) mmol/L Carbon Dioxide 26 (22-30) mmol/L Anion Gap 8 (4-12) mmol/L BUN 21 H (7-17) mg/dL Creatinine 0.82 (0.7-1.0) mg/dL Estim Creat Clear Calc 66 ml/min Estimated GFR > 60 (59 - ) Glucose 113 H (65-110) mg/dL Calcium 9.7 (8.4-10.2) mg/dL Magnesium (1.6-2.3) mg/dL Total Bilirubin 0.8 (0.2-1.3) mg/dL AST 31 (14-36) U/L ALT 35 (6-35) U/L Alkaline Phosphatase 114 (38-126) U/L Total Protein 7.0 (6.3-8.2) g/dL Albumin 3.6 (3.5-5.1) g/dL TSH (Reflex) (0.465-4.68) uIU/mL Free T4 (0.78-2.19) ng/dL Total T3 (0.97-1.69) NG/ML Nasal MRSA (PCR) Not detected (NOT DETECTE) Influenza A (RT-PCR) Negative (Negative) Influenza B (RT-PCR) Negative (Negative) Ur L.pneumophila Ag Pending Mycoplasma pneumon IgM RSV (RT-PCR) Negative (Negative) SARS-CoV-2 RNA (RT-PCR) Negative (Negative) Urine Pneumococcal Ag Pending 12/22/24 12/22/24 Range/Units 06:50 06:51 WBC 15.8 H (4.5-10.0) K/mm3 RBC 3.32 L (4.2-5.4) M/mm3 Hgb 10.7 L (12.0-15.0) g/dL Hct 32.5 L (37.0-47.0) % MCV 97.9 (80-100) fl MCH 32.2 (26-34) pg MCHC 32.9 (32-36) g/dl RDW 16.0 H (11.5-14.5) % Plt Count 215 (150-375) k/mm3 MPV 10.1 (7.4-10.4) fl Immature Gran % (Auto) Neut % (Auto) Lymph % (Auto) Bradley % (Auto) Eos % (Auto) Baso % (Auto) Lymph # (Auto) Bradley # (Auto) Eos # (Auto) Baso # (Auto) Abs Immat Gran (auto) Absolute Neuts (auto) Absolute Nucleated RBC Total Counted Neutrophils % (Manual) (46-73) % Band Neutrophils % (0-6) % Lymphocytes % (Manual) (18-44) % Monocytes % (Manual) (3-9) % Nucleated RBC % Abs Neuts (Manual) (1.7-7.2) K/mm3 Abs Lymphs (Manual) (1.1-4.5) K/mm3 Abs Monocytes (Manual) (0.1-0.90) K/mm3 Platelet Estimate (Adequate) Anisocytosis Schistocytes PT 26.6 H (11.1-14.7) Seconds INR 2.4 APTT (22.3-36.8) Seconds Sodium 137 (137-145) mmol/L Potassium 4.0 (3.4-5.0) mmol/L Chloride 104 (98-107) mmol/L Carbon Dioxide 27 (22-30) mmol/L Anion Gap 6 (4-12) mmol/L BUN 16 (7-17) mg/dL Creatinine 0.57 L (0.7-1.0) mg/dL Estim Creat Clear Calc 93 ml/min Estimated GFR > 60 (59 - ) Glucose 94 (65-110) mg/dL Calcium 8.6 (8.4-10.2) mg/dL Magnesium 1.9 (1.6-2.3) mg/dL Total Bilirubin (0.2-1.3) mg/dL AST (14-36) U/L ALT (6-35) U/L Alkaline Phosphatase (38-126) U/L Total Protein (6.3-8.2) g/dL Albumin (3.5-5.1) g/dL TSH (Reflex) 4.090 (0.465-4.68) uIU/mL Free T4 1.28 (0.78-2.19) ng/dL Total T3 0.68 L (0.97-1.69) NG/ML Nasal MRSA (PCR) (NOT DETECTE) Influenza A (RT-PCR) (Negative) Influenza B (RT-PCR) (Negative) Ur L.pneumophila Ag Mycoplasma pneumon IgM Pending RSV (RT-PCR) (Negative) SARS-CoV-2 RNA (RT-PCR) (Negative) Urine Pneumococcal Ag <Nevin William PA-C - Last Filed: 12/23/24 18:33> Lab Results 12/21/24 12/21/24 12/22/24 Range/Units 15:18 18:35 02:42 WBC 16.2 H (4.5-10.0) K/mm3 RBC 3.78 L (4.2-5.4) M/mm3 Hgb 12.2 (12.0-15.0) g/dL Hct 36.7 L (37.0-47.0) % MCV 97.1 (80-100) fl MCH 32.3 (26-34) pg MCHC 33.2 (32-36) g/dl RDW 16.1 H (11.5-14.5) % Plt Count 231 (150-375) k/mm3 MPV 9.9 (7.4-10.4) fl Immature Gran % (Auto) Not Reportable Neut % (Auto) Not Reportable Lymph % (Auto) Not Reportable Bradley % (Auto) Not Reportable Eos % (Auto) Not Reportable Baso % (Auto) Not Reportable Lymph # (Auto) Not Reportable Bradley # (Auto) Not Reportable Eos # (Auto) Not Reportable Baso # (Auto) Not Reportable Abs Immat Gran (auto) Not Reportable Absolute Neuts (auto) Not Reportable Absolute Nucleated RBC Not Reportable Total Counted 100 Neutrophils % (Manual) 90 H (46-73) % Band Neutrophils % 1 (0-6) % Lymphocytes % (Manual) 5.0 L (18-44) % Monocytes % (Manual) 4 (3-9) % Nucleated RBC % Not Reportable Abs Neuts (Manual) 14.74 H (1.7-7.2) K/mm3 Abs Lymphs (Manual) 0.81 L (1.1-4.5) K/mm3 Abs Monocytes (Manual) 0.64 (0.1-0.90) K/mm3 Platelet Estimate Adequate (Adequate) Anisocytosis 2+ Schistocytes None seen PT 26.0 H (11.1-14.7) Seconds INR 2.4 APTT 39.3 H (22.3-36.8) Seconds Sodium 135 L (137-145) mmol/L Potassium 3.8 (3.4-5.0) mmol/L Chloride 101 (98-107) mmol/L Carbon Dioxide 26 (22-30) mmol/L Anion Gap 8 (4-12) mmol/L BUN 21 H (7-17) mg/dL Creatinine 0.82 (0.7-1.0) mg/dL Estim Creat Clear Calc 66 ml/min Estimated GFR > 60 (59 - ) Glucose 113 H (65-110) mg/dL Calcium 9.7 (8.4-10.2) mg/dL Magnesium (1.6-2.3) mg/dL Total Bilirubin 0.8 (0.2-1.3) mg/dL AST 31 (14-36) U/L ALT 35 (6-35) U/L Alkaline Phosphatase 114 (38-126) U/L Total Protein 7.0 (6.3-8.2) g/dL Albumin 3.6 (3.5-5.1) g/dL TSH (Reflex) (0.465-4.68) uIU/mL Free T4 (0.78-2.19) ng/dL Total T3 (0.97-1.69) NG/ML Nasal MRSA (PCR) Not detected (NOT DETECTE) Influenza A (RT-PCR) Negative (Negative) Influenza B (RT-PCR) Negative (Negative) Ur L.pneumophila Ag Pending Mycoplasma pneumon IgM RSV (RT-PCR) Negative (Negative) SARS-CoV-2 RNA (RT-PCR) Negative (Negative) Urine Pneumococcal Ag Pending 12/22/24 12/22/24 Range/Units 06:50 06:51 WBC 15.8 H (4.5-10.0) K/mm3 RBC 3.32 L (4.2-5.4) M/mm3 Hgb 10.7 L (12.0-15.0) g/dL Hct 32.5 L (37.0-47.0) % MCV 97.9 (80-100) fl MCH 32.2 (26-34) pg MCHC 32.9 (32-36) g/dl RDW 16.0 H (11.5-14.5) % Plt Count 215 (150-375) k/mm3 MPV 10.1 (7.4-10.4) fl Immature Gran % (Auto) Neut % (Auto) Lymph % (Auto) Bradley % (Auto) Eos % (Auto) Baso % (Auto) Lymph # (Auto) Bradley # (Auto) Eos # (Auto) Baso # (Auto) Abs Immat Gran (auto) Absolute Neuts (auto) Absolute Nucleated RBC Total Counted Neutrophils % (Manual) (46-73) % Band Neutrophils % (0-6) % Lymphocytes % (Manual) (18-44) % Monocytes % (Manual) (3-9) % Nucleated RBC % Abs Neuts (Manual) (1.7-7.2) K/mm3 Abs Lymphs (Manual) (1.1-4.5) K/mm3 Abs Monocytes (Manual) (0.1-0.90) K/mm3 Platelet Estimate (Adequate) Anisocytosis Schistocytes PT 26.6 H (11.1-14.7) Seconds INR 2.4 APTT (22.3-36.8) Seconds Sodium 137 (137-145) mmol/L Potassium 4.0 (3.4-5.0) mmol/L Chloride 104 (98-107) mmol/L Carbon Dioxide 27 (22-30) mmol/L Anion Gap 6 (4-12) mmol/L BUN 16 (7-17) mg/dL Creatinine 0.57 L (0.7-1.0) mg/dL Estim Creat Clear Calc 93 ml/min Estimated GFR > 60 (59 - ) Glucose 94 (65-110) mg/dL Calcium 8.6 (8.4-10.2) mg/dL Magnesium 1.9 (1.6-2.3) mg/dL Total Bilirubin (0.2-1.3) mg/dL AST (14-36) U/L ALT (6-35) U/L Alkaline Phosphatase (38-126) U/L Total Protein (6.3-8.2) g/dL Albumin (3.5-5.1) g/dL TSH (Reflex) 4.090 (0.465-4.68) uIU/mL Free T4 1.28 (0.78-2.19) ng/dL Total T3 0.68 L (0.97-1.69) NG/ML Nasal MRSA (PCR) (NOT DETECTE) Influenza A (RT-PCR) (Negative) Influenza B (RT-PCR) (Negative) Ur L.pneumophila Ag Mycoplasma pneumon IgM Pending RSV (RT-PCR) (Negative) SARS-CoV-2 RNA (RT-PCR) (Negative) Urine Pneumococcal Ag <Gianluca Nolasco MD - Last Filed: 12/21/24 20:01> Imaging Data Radiologist's impression: Impressions Chest X-Ray 12/21/24 14:42 IMPRESSION: 1. 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 2. Small pleural effusions. Chest CTA 12/21/24 17:40 Impression: No evidence of pulmonary embolus, aortic dissection, or aortic aneurysm. Right-sided rib fractures, as above, possibly acute to subacute in nature. Correlate for point tenderness. Mild patchy ground glass opacities, right lung worse than left. Findings suggest infectious/inflammatory process versus possibly minimal pulmonary edema. Probable chronic changes in the right upper lobe with mild volume loss and bronchiectatic change and peripheral pleural-parenchymal thickening. This could reflect postradiation change, given associated appearance of prior right mastectomy. Multiple small sclerotic lesions in the spine, as above, which could reflect treated metastatic disease. <Gianluca Nolasco MD - Last Filed: 12/21/24 20:01> Critical Care Time Critical Care Time Critical Care Time: No <Nevin William PA-C - Last Filed: 12/23/24 18:33> Discharge Plan Discharge Clinical Impression: Pneumonia Qualifiers: Pneumonia type: due to unspecified organism Laterality: bilateral Lung location: unspecified part of lung Qualified Code(s): J18.9 - Pneumonia, unspecified organism <Nevin William PA-C - Last Filed: 12/23/24 18:33> Patient Disposition: Still a Patient <Nevin William PA-C - Last Filed: 12/23/24 18:33> Condition: Serious <Nevin William PA-C - Last Filed: 12/23/24 18:33>
--- NOTE | 2024-12-21 13:27 | ECG_ITS ---
Test Date: 2024-12-21 15:21:36 Measurements Intervals Craig Rate: 92 P: 63 AR: 177 QRS: 31 QRSD: 89 T: 49 QT: 359 QTc: 446 Interpretive Statements SINUS RHYTHM POSSIBLE LEFT ATRIAL ENLARGEMENT POSSIBLE RIGHT VENTRICULAR CONDUCTION DELAY BASELINE ARTIFACT- I, II, III, AVR, AVL, V3 BORDERLINE ECG Compared to ECG 11/24/2024 11:35:02 NO SIGNIFICANT CHANGE Electronically Signed On 12-21-2024 15:32:32 [employer] by Fabrizio Contreras D.O.
[2024-12-21] MEDS: predniSONE 20 MG TABLET 40 MG PO (15:12)
[2024-12-21 15:34] LABS: Hematocrit 36.7 % (37.0-47.0); Hemoglobin 12.2 g/dL (12.0-15.0); Mean Corpuscular HGB Conc 33.2 g/dl (32-36); Mean Corpuscular Hemoglobin 32.3 pg (26-34); Mean Corpuscular Volume 97.1 fl (80-100); Mean Platelet Volume 9.9 fl (7.4-10.4); Platelet Count Result 231 k/mm3 (150-375); Red Blood Count 3.78 M/mm3 (4.2-5.4); Red Cell Distribution Width 16.1 % (11.5-14.5); White Blood Count 16.2 K/mm3 (4.5-10.0)
[2024-12-21 15:52] LABS: INR 2.4
[2024-12-21 15:53] LABS: Partial Thromboplastin Time 39.3 Seconds (22.3-36.8)
[2024-12-21 16:07] LABS: Influenza A QL RT-PCR Negative (Negative); Influenza B QL RT-PCR Negative (Negative); RSV RNA, RT-PCR Negative (Negative); SARS-CoV-2 RNA PCR Negative (Negative)
[2024-12-21 16:10] LABS: Band Neutrophils Percent 1 % (0-6); Lymphocytes Absolute Manual 0.81 K/mm3 (1.1-4.5); Monocytes Absolute Manual 0.64 K/mm3 (0.1-0.90); Monocytes Percent Manual 4 % (3-9); Neutrophils Absolute Manual 14.74 K/mm3 (1.7-7.2); Neutrophils Percent Manual 90 % (46-73); Platelet Estimate Adequate (Adequate); Schistocytes None Seen; Total Cells Counted 100
[2024-12-21 16:12] LABS: Anisocytosis 2+
[2024-12-21 16:27] LABS: Alanine Aminotransferase 35 U/L (6-35); Albumin Level 3.6 g/dL (3.5-5.1); Alkaline Phosphatase 114 U/L (38-126); Anion Gap 8 mmol/L (4-12); Aspartate Amino Transferase 31 U/L (14-36); Bilirubin,Total 0.8 mg/dL (0.2-1.3); Blood Urea Nitrogen 21 mg/dL (7-17); Calcium 9.7 mg/dL (8.4-10.2); Carbon Dioxide 26 mmol/L (22-30); Chloride 101 mmol/L (98-107); Estimated CRCL calculation 66 ml/min; Estimated Glomerular Filt Rate > 60; Glucose 113 mg/dL (65-110); Potassium 3.8 mmol/L (3.4-5.0); Sodium 135 mmol/L (137-145)
[2024-12-21] MEDS: IPRATROPIUM 0.5 MG/ALBUTEROL SULFATE 2.5 MG AMPUL.NEB 3 ML INHALATION (16:43)
[2024-12-21] MEDS: ALBUTEROL SULFATE NEB 2.5 MG/3 ML INH 5 MG INHALATION (17:51)
--- OUTSIDE RECORDS SUMMARY | 2024-12-21 18:10 | XMS_ITS | Clinical Summary ---
Author Organization [facility] Address [address], [address] [place] [address] Phone Care Team Providers Care Locomotive Engineer Electric Name Role Phone Unavailable Primary Care Provider Unavailabl e Allergies No known active allergies Medications furosemide (LASIX) 40 MG Tablet TAKE 1 TABLET BY ORAL ROUTE EVERY DAY 2 6 Active SYNTHROID 125 MCG Tablet TAKE 1 TABLET BY ORAL ROUTE EVERY DAY 2 6 Active montelukast (SINGULAIR) 10 MG Tablet Take 10 mg by mouth daily. 1 6 Active CREON [address] Particles TAKE ONE CAPSULE [...] patient's age to complete this topic Insurance [employer]
--- OUTSIDE RECORDS SUMMARY | 2024-12-21 18:10 | XMS_ITS | Encounter Summary ---
Author Organization [facility] Address [address] [place] [address] Care Team Providers Care Railroad Cook Name Role Phone Ankit Villafuerte DO Primary Care Provider [phone] Encounter Details Date Type Department Care Team (Late Contact Info) Description 2019 Chart Note [facility] Radiation Therapy [address] [place] [address] [place] [address] [place] [address] Social History Tobacco Use Types Packs/Day Years Used Date Smoking Tobacco: Never Alcohol Use Standard Drinks/Week Comments Yes 0 (1 standard drink = 0.6 oz pur e alcohol) Comments No Sex and Gender Information Value Date Recorded Sex Assigned at Not on file Legal Sex Female 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 Gender Identity Not on file Sexual Orientation Not on file documented as of this encounter Plan of Treatment Upcoming Encounters Date Type Department Care Team (Late Contact Info) Description 02/23/2025 11:45 AM CDT Office Visit [facility] Oncology and Hematology - [place] [address] [facility] [address] [place] [address] Lj Fam MD [address] [facility] [address] [place] [address] documented as of this encounter Visit Diagnoses Not on filedocumented in this encounter Care Teams Railroad Cook Relationship Specialty Start Date End Date Ankit Villafuerte DO [address] [facility] [address] [place] [address] PCP - General Internal Medicine 07/30/24 documented as of this encounter
--- OUTSIDE RECORDS SUMMARY | 2024-12-21 18:10 | XMS_ITS | Referral Summary ---
Author Organization [facility] Address [address] [facility] [address] [facility] [place] [address] Care Team Providers Care Creative Services Producer Name Role Phone Chris Avalos PA-C Primary Care Provide r Source Comments [facility],non-owned Affiliates and Associated Physician Practices is amultiple site organization consisting of ambulatory clinics and hospital sitesin [place], [place], [place] and [place]. This disclosure is being madepursuant to the Care Everywhere program and may not contain all information available regarding this patient. Last updated 18.[facility]DW Allergies No known active allergies Medications * [...] at bedtime 02/07/2022 Active pancrelipase (CREON 12,000) 24769-20692 units capsule Active levothyroxine (SYNTHROID) 100 MCG [...] on file Medical Devices Implanted Type Area Biometrics Technician Device Identifier Shelf Expiration Date Model / Serial / Lot Screw Implanted:Qty: 1 on 04/30/2022 by Michel Mendieta MD at [facility] Right: Wrist [employer] [id number] / / Screw 2.7mm 20mm Mldir Nonster Bone Implanted:Qty: 1 on 04/30/2022 by Michel Mendieta MD at [facility] Right: Wrist [employer] [id number] / / Plate Implanted:Qty: 1 on 04/30/2022 by Michel Mendieta MD at [facility] Right: Wrist [employer] [id number] / / Screw 2.7mm 14mm Lopro Nonster Bone Lf Implanted:Qty: 2 on 04/30/2022 by Michel Mendieta MD at [facility] Right: Wrist [employer] [id number] / / Screw Implanted:Qty: 1 on 04/30/2022 by Michel Mendieta MD at [facility] Right: Wrist [employer] [id number] / / Screw 2.7mm 20mm Crsslck Tpr Head 3 Ld Implanted:Qty: 3 on 04/30/2022 by Michel Mendieta MD at [facility] Right: Wrist [employer] [id number] / / Screw 2.7mm 22mm Lck Jesse Nonster Bone Implanted:Qty: 2 on 04/30/2022 by Michel Mendieta MD at [facility] Right: Wrist [employer] [id number] / / Explanted Type Area Biometrics Technician Device Identifier Shelf Expiration Date Model / Serial / Lot Wire K .062in 6in Fx 2 Troc Explanted:Qty: 2 on 04/30/2022 by Michel Mendieta MD at [facility] Right: Wrist [employer] [id number] / / Wire K 1.6mm Ss Fx Nonster Explanted:Qty: 3 on 04/30/2022 by Michel Mendieta MD at [facility] Right: Wrist [employer] [id number] / / Screw 2.7mm 20mm Crsslck Lopro Nonlock Explanted:Qty: 1 on 04/30/2022 by Michel Mendieta MD at [facility] Right: Wrist [employer] [id number] / / Screw 2.7mm 20mm Crsslck Lopro Nonlock Explanted:Qty: 1 on 04/30/2022 by Michel Mendieta MD at [facility] Right: Wrist [employer] [id number] / / Care Teams Creative Services Producer Relationship Specialty Start Date End Date Chris Avalos PA-C [address] [place] [address] PCP - General 04/25/22
--- OUTSIDE RECORDS SUMMARY | 2024-12-21 18:10 | XMS_ITS | Clinical Summary ---
Author Organization [facility] Address [address] [place] [address] Care Team Providers Care Electronics Maintenance Technician Name Role Phone Ankit Villafuerte Primary Care Provider [phone] Allergies No known active allergies Medications cholecalciferol [...] Data STL ABSTRACTION Provider, Abstract 10/16/2024 Refill [facility] Oncology and Hematology [facility] [address] [place] [address] Lj Fam MD 10/14/2024 Abstract [facility] Oncology and [facility] [address] [place] [address] Lj Fam MD 10/14/2024 Telephone [facility] Oncology and Hematology [facility] [address] [place] [address] Lj aFm MD Surgical Clearance from Last 3 Months [...] on file Legal Sex Female 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 Gender Identity Not on file Sexual Orientation [...] Description 02/23/2025 11:45 AM CDT Office Visit [facility] Oncology and Hematology - [place] [address] [facility] [address] [place] [address] Lj Fam MD [address] [facility] [address] [place] [address] Health Maintenance Due Date Last [...] Maintenance Insurance MEDICARE PART A AND B [employer] [facility] MEDICARE PART A AND B [employer] SUPP Care Teams Electronics Maintenance Technician Relationship Specialty Start Date End Date Ankit Villafuerte DO [address] [facility] [address] [facility] [address] [place] [address] PCP - General Internal Medicine 07/30/24
--- OUTSIDE RECORDS SUMMARY | 2024-12-21 18:11 | XMS_ITS | Patient Health Summary ---
Author Organization [facility] Address [address] [facility] [place] [address] Care Team Providers Care Chief Technologist Name Role Phone Chris Avalos PA-C Primary Care Provide r Note from [facility],non-owned Affiliates and Associated Physician Practices is amultiple site organization consisting of ambulatory clinics and hospital sitesin [place], [place] and [place]. This disclosure is being madepursuant to the Care Everywhere program and may not contain all information available regarding this patient. Last updated 18.[facility] Allergies No known active allergies Medications * Be aware that medications may not be up to date on this document. Alwaysverify current medications with the patient. * warfarin (COUMADIN) 2 MG tablet(Started 02/20/2022) Take 5 mg by mouth once daily * rOPINIRole (REQUIP) 0.25 MG tablet(Started 02/07/2022) Take 0.25 mg by mouth at bedtime * pancrelipase (CREON 12,000) 22367-91632 units capsule * levothyroxine (SYNTHROID) 100 MCG [...] AM CDT Medical Devices Implanted Type Area Right Of Way Cutter Device Identifier Shelf Expiration Date Model / Serial / Lot Screw Implanted:Qty: 1 on 04/30/2022 by Michel Mendieta MD at [facility] Right: Wrist [employer] [id number] / / Screw 2.7mm 20mm Mldir Nonster Bone Implanted:Qty: 1 on 04/30/2022 by Michel Mendieta MD at [facility] Right: Wrist [employer] [id number] / / Plate Implanted:Qty: 1 on 04/30/2022 by Michel Mendieta MD at [facility] Right: Wrist [employer] [id number] / / Screw 2.7mm 14mm Lopro Nonster Bone Lf Implanted:Qty: 2 on 04/30/2022 by Michel Mendieta MD at [facility] Right: Wrist [employer] [id number] / / Screw Implanted:Qty: 1 on 04/30/2022 by Michel Mendieta MD at [facility] Right: Wrist [employer] [id number] / / Screw 2.7mm 20mm Crsslck Tpr Head 3 Ld Implanted:Qty: 3 on 04/30/2022 by Michel Mendieta MD at [facility] Right: Wrist [employer] [id number] / / Screw 2.7mm 22mm Lck Jesse Nonster Bone Implanted:Qty: 2 on 04/30/2022 by Michel Mendieta MD at [facility] Right: Wrist [employer] [id number] / / Explanted Type Area Right Of Way Cutter Device Identifier Shelf Expiration Date Model / Serial / Lot Wire K .062in 6in Fx 2 Troc Explanted:Qty: 2 on 04/30/2022 by Michel Mendieta MD at [facility] Right: Wrist [employer] [id number] / / Wire K 1.6mm Ss Fx Nonster Explanted:Qty: 3 on 04/30/2022 by Michel Mendieta MD at [facility] Right: Wrist [employer] [id number] / / Screw 2.7mm 20mm Crsslck Lopro Nonlock Explanted:Qty: 1 on 04/30/2022 by Michel Mendieta MD at [facility] Right: Wrist [employer] [id number] / / Screw 2.7mm 20mm Crsslck Lopro Nonlock Explanted:Qty: 1 on 04/30/2022 by Michel Mendieta MD at [facility] Right: Wrist [employer] [id number] / / Procedures * XR WRIST RIGHT [...] Report dictated by Dawn Woodward MD (residential installer). I, Lorne Ann MD have personally reviewed and interpreted this examination/study. > Interpreting Provider: Lorne Ann MD on 07/04/2022 10:06 AM Narrative 07/04/2022 10:06 AM CDT PROCEDURE: XR WRIST RIGHT 3VW OR MORE, DATE/TIME OF EXAM: 07/04/2022 9:33 AM, LOCATION [facility] INDICATION: S52.571D: Other closed intra-articular fracture of [...] MORE, DATE/TIME OF EXAM: 29:33 AM, LOCATION [facility] INDICATION: S52.571D: Other closed intra-articular fracture of [...] Report dictated by Dawn Woodward MD (residential installer). I, Lorne Ann MD have personally reviewed [...] [facility]ACOS SURGERY (04/30/2022 2:00 PM CDT) Narrative [facility] - 04/30/2022 2:00 PM CDT Fluoroscopy was used for this exam in the OR. Please see the Operative report. Michel Mendieta MD FLUOROSCOPY ORDERABL ES Performing Organization Address [facility]/ZIP Co de Phone Number [facility] * ETT LINE PERFORMABLE (04/30/2022 12:02 PM CDT) Narrative Janet Beebe Anes Asst - 04/30/2022 12:02 PM CDT Janet Beebe Anes Asst 04/30/2022 12:03 PM Endotracheal Tube Placement: Patient Location: OR. Intubation Event Date/Time: 04/30/2022 11:47 AM Procedure: intubation (29855). Procedure Section: Induction: standard IV Patient Position: [...] Rh A POS 04/30/2022 10:25 AM CDT [facility] Blood Bank BLOOD SPECIMEN / Unknown Lab Venipuncture / Unknown 04/30/2022 9:54 AM CDT 04/30/2022 9:57 AM CDT Michel Mendieta MD LAB - BLOOD BANK ORD ERABLES [facility] [address] [place] [address], [place] [phone] * (ABNORMAL) PT-INR [facility] (04/30/2022 9:31 AM CDT) Only the most recent of2 resultswithin the time period is included. PT 20.6(H) 12.1 - 14.8 Seconds 04/30/2022 10:01 AM CDT [facility] INR 1.8 See Comment 04/30/2022 10:01 AM CDT [facility] Comment:The suggested therap eutic range for standard coumadin (warfarin) therapy is an INR of 2.0-3.0. For high-risk patients (Mechanical Mitral Valve Prosthesis, etc.), the suggested prophylactic therapeutic range is an INR of 2.5-3.5. Blood BLOOD SPECIMEN / Unknown Venipuncture / Unknown 04/30/2022 9:31 AM CDT 04/30/2022 9:35 AM CDT Michel Mendieta MD LAB - COAGULATION OR DERABLES Performing Organization Address City/[facility]/ZIP Co de Phone Number [address] [address], [employer] [phone] * TYPE + SCREEN PANEL (04/30/2022 9:31 AM CDT) Antibody Screen NEG 10:21 AM CDT [facility] ABO Rh A POS 04/30/2022 10:21 AM CDT [facility] Blood Bank BLOOD SPECIMEN / Unknown Venipuncture / Unknown 04/30/2022 9:31 AM CDT 04/30/2022 9:36 AM CDT Michel Mendieta MD LAB - BLOOD BANK ORD ERABLES Performing Organization Address City/[facility]/ZIP Co de Phone Number [facility] [address] [place] [address], [employer] [phone] * XR FOREARM RIGHT 2VW (04/09/2022 7:38 [...] fracture. Dictated by Geovani Foster MD (residential installer). I, Dr. HU AGUAYO M.D. have personally [...] fracture. Dictated by Geovani Foster MD (residential installer). Dr. HU Mittal M.D. have personally reviewed [...] fracture. Dictated by Geovani Foster MD (residential installer). Dr. HU Mittal M.D. have personally reviewed [...] fracture. Dictated by Geovani Foster MD (residential installer). I, Dr. HU AGUAYO M.D. have personally reviewed andinterpreted this examination/study. This report was electronically signed by HU AGUAYO M.D. on 04/10/2022 11:53 AM . Luana Skinner PA-C DIAGNOSTIC IMAGING O RDERABLES * (ABNORMAL) CBC W AUTO DIFFERENTIAL (04/09/2022 6:32 PM CDT) WBC 13.2(H) 3.5 - 10.5 10 3/uL 04/09/2022 6:43 PM [facility] RBC 4.03 3.80 - 5.20 10 6/uL 04/09/2022 6:43 PM [facility] Hemoglobin 12.9 12.0 - 15.6 g/dL 04/09/2022 6:43 PM [facility] Hematocrit 38.4 35.0 - 45.0 % 04/09/2022 6:43 PM [facility] MCV 95.3 80.7 - 98.3 fL 04/09/2022 6:43 PM [facility] MCH 32.0 26.7 - 34.0 pg 04/09/2022 6:43 PM [facility] MCHC 33.6 30.8 - 35.9 g/dL 04/09/2022 6:43 PM [facility] Platelet Count 227 150 - 400 10 3/uL 04/09/2022 6:43 PM [facility] RDW-SD 49.8 36.0 - 50.0 fL 04/09/2022 6:43 PM [facility] RDW-CV 14.1 11.2 - 14.8 % 04/09/2022 6:43 PM [facility] MPV 10.4 9.4 - 12.9 fL 04/09/2022 6:43 PM [facility] nRBC Absolute 0.00 0 10 3/uL 04/09/2022 6:43 PM [facility] nRBC Auto 0.0 0 /100 WBC 04/09/2022 6:43 PM [facility] Neutrophils % 87.6(H) 35.0 - 70.0 % 04/09/2022 6:43 PM [facility] Lymphocytes % 6.3(L) 20.0 - 43.0 % 04/09/2022 6:43 PM [facility] Monocytes % 5.1 5.0 - 13.0 % 04/09/2022 6:43 PM [facility] Eosinophils % 0.2 0.0 - 6.0 % 04/09/2022 6:43 PM CDT [facility] Basophil % 0.3 0.0 - 2.0 % 04/09/2022 6:43 PM CDT [facility] Neutrophils Absolute 11.6(H) 1.6 - 7.0 10 3/uL 04/09/2022 6:43 PM CDT [facility] Lymphocyte Absolute 0.8(L) 1.1 - 3.9 10 3/uL 04/09/2022 6:43 PM CDT [facility] Monocytes Absolute 0.67 0.26 - 1.07 10 3/uL 04/09/2022 6:43 PM CDT [facility] Eosinophils Absolute 0.02 0.00 - 0.47 10 3/uL 04/09/2022 6:43 PM CDT [facility] Basophils Absolute 0.04 0.00 - 0.08 10 3/uL 04/09/2022 6:43 PM T [facility] Immature Granulocytes % 0.5 0.0 - 1.0 % 04/09/2022 6:43 PM T [facility] Immature Granulocytes Absolute 0.07 04/09/2022 6:43 PM T [facility] Blood BLOOD SPECIMEN / Unknown Venipuncture / Unknown 04/09/2022 6:32 PM CDT 04/09/2022 6:39 PM CDT Erica Ng ORACLE HRMS DEVELOPER-OPERATIONS RESEARCH ENGINEER LAB - HEMATO LOGY ORDERABLES Performing Organization Address City/State/[facility] Co de Phone Number [address] [address], [facility] [phone] * MRI BREAST BILAT WWO CONTRAST (07/04/2016 [...] including 05/29/2016, 11/08/2014, and 11/06/2013 performed at [facility]. TECHNIQUE: Multiplanar multisequence MR imaging of both breasts before and following the administration of intravenous gadolinium contrast. Dynamic phase imaging was performed in the axial plane. Exam was processed by and interpreted on a Rawporter subpoena server including 3-D volume rendering, subtraction image [...] mammogramsincluding 05/29/2016, 11/08/2014, and 11/06/2013 performed at [facility]. TECHNIQUE: Multiplanar multisequence MR imaging of both breasts before andfollowing the administration of intravenous gadolinium contrast. Dynamicphase imaging was performed in the axial plane. Exam was processed by andinterpreted on a Rawporter subpoena server including 3-D volume rendering, subtraction image [...] ORDERABLES * CREATININE BLOOD - POCT (IP) [facility] (07/04/2016) Creatinine POCT 0.89 0.3 - 1.3 mg/dL [facility] eGFR POCT 60 60 ml/min [facility] 07/04/2016 Sebastian Nuno MD LAB - POINT OF CARE ORDERABLES [facility] Care Teams Chief Technologist Relationship Specialty Start Date End Date Chris Avalos PA-C [address] [place] [address] PCP - General 04/25/22
--- OUTSIDE RECORDS SUMMARY | 2024-12-21 18:11 | XMS_ITS ---
Author Organization [facility] Address [address] [place] [address] Phone Care Team Providers Care Disc Ruler Operator Name Role Phone Unavailable Primary Care [...]
--- OUTSIDE RECORDS SUMMARY | 2024-12-21 18:11 | XMS_ITS | Clinical Summary ---
Author Organization [facility] Address [address] [place] [address] Care Team Providers Care Student Services Dean Name Role Phone Chris Avalos PA-C Primary Care Provide r Source Comments [facility],non-owned Affiliates and Associated Physician Practices is amultiple site organization consisting of ambulatory clinics and hospital sitesin [place], [place] and [place]. This disclosure is being madepursuant to the Care Everywhere program and may not contain all information available regarding this patient. Last updated 18.[facility] Optisort Allergies No known active allergies Medications * [...] at bedtime 02/07/2022 Active pancrelipase (CREON 12,000) 10572-69095 units capsule Active levothyroxine (SYNTHROID) 100 MCG [...] this topic Medical Devices Implanted Type Area Desk Interviewer Device Identifier Shelf Expiration Date Model / Serial / Lot Screw Implanted:Qty: 1 on 04/30/2022 by Michel Mendieta MD at [facility] Right: Wrist [employer] [id number] / / Screw 2.7mm 20mm Mldir Nonster Bone Implanted:Qty: 1 on 04/30/2022 by Michel Mendieta MD at [facility] Right: Wrist [employer] [id number] / / Plate Implanted:Qty: 1 on 04/30/2022 by Michel Mendieta MD at [facility] Right: Wrist [employer] [id number] / / Screw 2.7mm 14mm Lopro Nonster Bone Lf Implanted:Qty: 2 on 04/30/2022 by Mcihel Mendieta MD at [facility] Right: Wrist [employer] [id number] / / Screw Implanted:Qty: 1 on 04/30/2022 by Michel Mendieta MD at [facility] Right: Wrist [employer] [id number] / / Screw 2.7mm 20mm Crsslck Tpr Head 3 Ld Implanted:Qty: 3 on 04/30/2022 by Michel Mendieta MD at [facility] Right: Wrist [employer] [id number] / / Screw 2.7mm 22mm Lck Jesse Nonster Bone Implanted:Qty: 2 on 04/30/2022 by Michel Mendieta MD at [facility] Right: Wrist [employer] [id number] / / Explanted Type Area Desk Interviewer Device Identifier Shelf Expiration Date Model / Serial / Lot Wire K .062in 6in Fx 2 Troc Explanted:Qty: 2 on 04/30/2022 by Michel Mendieta MD at [facility] Right: Wrist [employer] [id number] / / Wire K 1.6mm Ss Fx Nonster Explanted:Qty: 3 on 04/30/2022 by Michel Mendieta MD at [facility] Right: Wrist [employer] [id number] / / Screw 2.7mm 20mm Crsslck Lopro Nonlock Explanted:Qty: 1 on 04/30/2022 by Michel Mendieta MD at [facility] Right: Wrist [employer] [id number] / / Screw 2.7mm 20mm Crsslck Lopro Nonlock Explanted:Qty: 1 on 04/30/2022 by Michel Mendieta MD at [facility] Right: Wrist [employer] [id number] / / Care Teams Student Services Dean Relationship Specialty Start Date End Date Chris Avalos PA-C [address] [place] [address] PCP - General 04/25/22
--- OUTSIDE RECORDS SUMMARY | 2024-12-21 18:11 | XMS_ITS | Clinical Summary ---
Author Organization [facility] Address [address] [place] [address] Care Team Providers Care Medical Resident Name Role Phone Ankit Villafuerte DO Primary Care Provider [phone] Allergies No known active allergies Medications warfarin (COUMADIN) 5 MG tablet Take 4.5 mg by mouth daily. Active Encounters Date Type Department Care Team Description 09/28/2024 3:00 PM NURSE STAFF INDUSTRIAL - 09/28/2024 5:57 PM NURSE STAFF INDUSTRIAL Emergency [facility] Emergency Room [id number] [place] [address] Syeda Gayle MD Laceration Discharge Disposition: Home [...] Comments Blood Pressure 137/83 09/28/2024 5:55 PM NURSE STAFF INDUSTRIAL Pulse 73 09/28/2024 5:55 PM NURSE STAFF INDUSTRIAL Temperature 36.2 C (97.1 F) 09/28/2024 5:55 PM NURSE STAFF INDUSTRIAL Respiratory Rate 18 09/28/2024 5:55 PM NURSE STAFF INDUSTRIAL Oxygen Saturation 98% 09/28/2024 5:55 PM NURSE STAFF INDUSTRIAL Inhaled Oxygen Concentration - - Weight 97.1 kg (214 lb 1.1 oz) 09/28/2024 3:00 P M NURSE STAFF INDUSTRIAL Height 175.3 cm (5' 9 ) 09/28/2024 3:00 PM NURSE STAFF INDUSTRIAL Body Mass Index 31.61 09/28/2024 3:00 PM NURSE STAFF INDUSTRIAL Plan of Treatment Health Maintenance Due Date [...] LACERATION REPAIR Routine 09/28/2024 5:4 6 PM NURSE STAFF INDUSTRIAL XR FOREARM LT 2V STAT 09/28/2024 3:48 PM NURSE STAFF INDUSTRIAL from Last 3 Months Results * Lac Repair (09/28/2024 5:46 PM NURSE STAFF INDUSTRIAL) Narrative Syeda Gayle MD - 09/28/2024 5:46 PM NURSE STAFF INDUSTRIAL Syeda Gayle MD 09/28/2024 5:49 PM Lac Repair Date/Time: 09/28/2024 5:46 PM Performed by: Syeda Gayle MD Authorized by: Syeda Gayle MD Consent: Consent obtained: Verbal Consent given by: Patient Risks, benefits, and alternatives were discussed: yes Risks discussed: Pain and infection [place] protocol: Patient identity confirmed: Verbally with patient [...] XR FOREARM LT 2V (09/28/2024 3:48 PM NURSE STAFF INDUSTRIAL) Anatomical Region Laterality Modality Forearm Radiographic Kymberly ging 09/28/2024 3:51 PM NURSE STAFF INDUSTRIAL Impressions 09/28/2024 3:53 PM NURSE STAFF INDUSTRIAL IMPRESSION: 1. No fracture or dislocation. Mild soft tissue swelling as above Ordered By: SYEDA GAYLE Interpreted By: Ricci Neal, 09/28/2024 3:51 PM Narrative 09/28/2024 3:53 PM NURSE STAFF INDUSTRIAL [address] [place] [phone] IMAGING STUDIES: XR FOREARM LT 2V DATE: [...] Procedure Note Torito Neal MD - 09/28/2024 [facility] [address] [place] [phone] IMAGING STUDIES: XR FOREARM LT 2V DATE: [...] from Last 3 Months Insurance [employer] MEDICARE [facility] [employer] Care Teams Medical Resident Relationship Specialty Start Date End Date Ankit Villafuerte DO [address] [address] PCP - General INTERNAL MEDICINE 09/28/24
[2024-12-21] MEDS: AZITHROMYCIN 500 MG/NS 250 ML 500 MG/250 ML BAG 250 MG IVPB (19:06)
[2024-12-21] MEDS: ALBUTEROL SULFATE NEB 2.5 MG/3 ML INH INHALATION (19:13)
[2024-12-21] MEDS: IPRATROPIUM BR 0.02% INH SOLN 0.5 MG/2.5 ML VIAL INHALATION (19:13)
[2024-12-21] MEDS: SODIUM CHLORIDE 0.9% IV 1,000 ML 999 ML IV CONT (19:13)
[2024-12-21 20:00] LABS: MRSA (PCR) NOT DETECTED (NOT DETECTE)
[2024-12-21] MEDS: VANCOMYCIN 1,250 MG/NS 250 ML 1,250 MG/250 ML BAG 166.67 MG IVPB (20:19)
--- NOTE | 2024-12-21 21:10 | PM.IMHP ---
H&P: HPI History of Present Illness Date/Time: 12/21/24 21:10 Chief Complaint: Cough and shortness of breath. 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 The patient provides the following history. She has not been feeling well for over a week with a cough productive of green phlegm, wheezing, and shortness of breath with exertion. She was prescribed cefdinir and steroids and she has been taking Mucinex D without improvement. She denies fever, sore throat, chest and pleuritic pain, calf pain, edema, hemoptysis, vomiting, and diarrhea. No known sick contacts. In the ED: She was afebrile on arrival with an SpO2 of 97% on room air. Labs are significant for WBC count of 16.2, INR 2.4, sodium 135, BUN 21, glucose 113. Respiratory panel was negative. Chest CTA was negative for pulmonary embolism, aortic dissection, and aortic aneurysm. There were findings suggestive of an infectious or inflammatory process bronchiectatic change and pleural parenchymal thickening on the right which may be due to post radiation changes. She was given a nebulizer treatment, prednisone 40 mg, azithromycin 500 mg, ceftriaxone 1 g, and vancomycin 12 50 mg. She is being admitted in this setting for further treatment. Review of Systems Review of Systems: 12 systems were reviewed and are negative except for as per HPI. 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 status post mastectomy and neoadjuvant chemotherapy, radiation, and hormone therapy Surgical History Surgical History (Updated 12/21/24 @ 21:52 by Fela Sparks PA-C) History of open reduction and internal fixation (ORIF) procedure repair right wrist fracture History of arthroscopy of both knees History of cholecystectomy History of appendectomy History of right mastectomy (11/2016) Family History Family History Father Family history of diabetes mellitus in first degree relative Family history of congestive heart failure Mother Family history of malignant neoplasm of breast in first degree relative Other Family history of malignant neoplasm Social History Social History Social History: Surrogate medical decision maker: Charly Pulido, spouse. Code status: FULL CODE. Smoking status: Never smoker Second hand tobacco smoke exposure: No Alcohol intake: former Alcohol use details: Social alcohol use in the past, non since 2013. Substance use: never Substance use type: does not use Lack of Transportation: No Lack of Food: Never True Current Housing: I Have Housing Concerned About Future Housing: No Difficulty Paying Gas/Electric Bills: No Difficulty Paying for Meds: No Currently Unemployed: No Education: Associate Degree Difficulty w/ Childcare or Family Care: No Living arrangements: with family Spiritual care concerns: No Meds Home Medications and Allergies Home Medications ?Medication ?Instructions ?Recorded ?Confirmed ?Type gabapentin 800 mg tablet 800 mg PO QHS 05/20/23 12/21/24 History loratadine 10 mg tablet (Claritin) 10 mg PO DAILY 11/25/23 12/21/24 History triprolidine 1.25 mg-PE 5 mg-DM 10 1 ea PO QHS 11/25/23 12/21/24 History mg-acetamin 325 mg-GG (nt) tablets (Mucinex Sinus-Max Day-Night) warfarin 1 mg tablet See Rx Instructions .Route 07/08/24 12/21/24 Rx .COMPLEX #90 tabs dicyclomine 20 mg tablet See Rx Instructions .Route 07/15/24 12/21/24 Rx .COMPLEX #270 tabs warfarin 2 mg tablet See Rx Instructions .Route 08/13/24 12/21/24 Rx .COMPLEX #180 tabs ropinirole 0.25 mg tablet See Rx Instructions .Route 10/20/24 12/21/24 Rx .COMPLEX #90 tabs levothyroxine 88 mcg tablet 88 mcg PO DAILY #90 tabs 11/02/24 12/21/24 Rx primidone 50 mg tablet 50 mg PO QHS #90 tabs 11/09/24 12/21/24 Rx budesonide 160 mcg-glycopyr 9 2 inh inhalation BID #10.7 grams 11/17/24 12/21/24 Rx mcg-formot 4.8 mcg/actuation HFA inhaler ([facility]) cefdinir 300 mg capsule 300 mg PO Q12H 12/21/24 12/21/24 History methylprednisolone 4 mg tablets in 4 mg PO Q12H 12/21/24 12/21/24 History a dose pack Allergies Allergy/AdvReac Type Severity Reaction Status Date / Time No Known Allergies Allergy Verified 12/21/24 17:11 Vital Signs Vital Signs - 24 hr 12/21/24 12:19 12/21/24 16:40 12/21/24 16:40 Temperature 98.7 F 97.5 F L Pulse Rate 110 H 95 Respiratory Rate 18 18 Blood Pressure 137/74 149/82 H Pulse Oximetry 95 97 98 Oxygen Delivery Room Air Room Air Room Air Oxygen Flow Rate 12/21/24 16:43 12/21/24 16:51 12/21/24 17:52 Temperature Pulse Rate 114 H 96 93 Respiratory Rate 20 21 H 20 Blood Pressure Pulse Oximetry Oxygen Delivery Oxygen Flow Rate 12/21/24 18:07 12/21/24 18:48 12/21/24 18:54 Temperature Pulse Rate 96 101 H Respiratory Rate 20 18 Blood Pressure 129/70 Pulse Oximetry 95 94 Oxygen Delivery Nasal Cannula Oxygen Flow Rate 2 12/21/24 19:14 12/21/24 19:16 12/21/24 19:16 Temperature 98 F Pulse Rate 99 100 98 Respiratory Rate 14 22 H Blood Pressure 120/68 Pulse Oximetry 98 Oxygen Delivery Oxygen Flow Rate 12/21/24 19:17 12/21/24 19:47 12/21/24 20:42 Temperature Pulse Rate 103 H Respiratory Rate 22 H Blood Pressure 124/77 Pulse Oximetry 98 98 95 Oxygen Delivery Nasal Cannula Nasal Cannula Oxygen Flow Rate 2 2 Exam Narrative: General: Mildly ill-appearing female in the semi-Mora position in bed. Weight: 94.5 kg. BMI: 30.8. HEENT: Wearing corrective lenses. PERRL, EOMI. Sclera anicteric. Tacky mucous membranes. Neck: Supple. No lymphadenopathy. Respiratory: Respirations are nonlabored she is speaking full sentences. Frequent deep, wet sounding cough. Lung sounds are coarse with scattered crackles on the right and expiratory wheezing. Cardiovascular: Regular rate and rhythm with S1-S2. Soft murmur at the right upper sternal border. Gastrointestinal: Abdomen is soft, nontender, and nondistended with positive bowel sounds. Skin: Warm and dry. No rash or lesions on limited exam. Extremities: No cyanosis or clubbing. Lymphedema the right upper extremity. No lower extremity edema. Peripheral pulses intact. Neurological: Alert. Cranial nerves 2-12 are grossly intact. No gross focal deficits to casual conversation. Psychiatric: Pleasant and cooperative with normal mood and affect. Judgment and insight intact. H&P: Results Labs Labs: Short CBC 12/21/24 Range/Units 15:18 WBC 16.2 H (4.5-10.0) K/mm3 Hgb 12.2 (12.0-15.0) g/dL Hct 36.7 L (37.0-47.0) % Plt Count 231 (150-375) k/mm3 BMP 12/21/24 15:18 Sodium 135 L Potassium 3.8 Chloride 101 Carbon Dioxide 26 BUN 21 H Creatinine 0.82 Glucose 113 H Calcium 9.7 Liver Function 12/21/24 Range/Units 15:18 Total Bilirubin 0.8 (0.2-1.3) mg/dL AST 31 (14-36) U/L ALT 35 (6-35) U/L Alkaline Phosphatase 114 (38-126) U/L Albumin 3.6 (3.5-5.1) g/dL Impressions Chest X-Ray 12/21/24 14:42 IMPRESSION: 1. 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 2. Small pleural effusions. Chest CTA 12/21/24 17:40 Impression: No evidence of pulmonary embolus, aortic dissection, or aortic aneurysm. Right-sided rib fractures, as above, possibly acute to subacute in nature. Correlate for point tenderness. Mild patchy ground glass opacities, right lung worse than left. Findings suggest infectious/inflammatory process versus possibly minimal pulmonary edema. Probable chronic changes in the right upper lobe with mild volume loss and bronchiectatic change and peripheral pleural-parenchymal thickening. This could reflect postradiation change, given associated appearance of prior right mastectomy. Multiple small sclerotic lesions in the spine, as above, which could reflect treated metastatic disease. 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 Labs, imaging, EKG, and all reports were personally reviewed. She received azithromycin, ceftriaxone, and vancomycin in the emergency department. Given bronchiectatic changes seen on chest CT, antibiotics will be changed to levofloxacin for Pseudomonas coverage as we do not have prior sputum cultures. I will ask pulmonology to see her in consultation regarding these CT findings and she will likely need formal outpatient pulmonary function testing given suspected COPD. Continue maintenance inhalers. She has been started on scheduled bronchodilators and prednisone. Cornet and Mucinex ordered to help mobilize secretions. INR is therapeutic and will be monitored daily. Continue levothyroxine and check TSH. Home medications will be reviewed and resumed as appropriate. Findings and treatment plan were discussed with the patient. Questions were solicited and answered to satisfaction. The patient's medical management will be taken over by the hospitalist team in a.m. Quality VTE Prophylaxis VTE prophylaxis: pharmacologic ordered (on warfarin with therapeutic INR) The patient has been admitted under observation status. Hospitalist MIPS Advance Care Plan I have confirmed that the patient's Advanced Care Plan is present, code status is documented, or surrogate decision maker is listed in patient medical record.: Yes Medication Reconciliation I have utilized all available resources to obtain, update and review the patients current medications (includes all prescriptions, OTC, herbals, cannabis, and nutritional supplements).: Yes
[2024-12-21] MEDS: rOPINIRole HCL 0.25 MG TABLET BY MOUTH (22:56)
[2024-12-21] MEDS: levoFLOXacin 750 MG/D5W 150 ML 750 MG/150 ML BAG 100 MG IVPB (22:56)
[2024-12-21] MEDS: DICYCLOMINE HCL 10 MG CAPSULE 20 MG BY MOUTH (22:56)
[2024-12-22] VITALS (12 sets, daily range): BP systolic 127–148; BP diastolic 69–82; PULSE 82–100; RESP 16–20; TEMP 36.1–36.6; O2SAT 95–96
[2024-12-22] MEDS: ALBUTEROL SULFATE NEB 2.5 MG/3 ML INH INHALATION (02:42)
[2024-12-22] MEDS: IPRATROPIUM BR 0.02% INH SOLN 0.5 MG/2.5 ML VIAL INHALATION (02:42)
[2024-12-22] MEDS: DICYCLOMINE HCL 10 MG CAPSULE 20 MG BY MOUTH ×3 (05:30→21:11)
[2024-12-22] MEDS: LEVOTHYROXINE SODIUM 88 MCG TABLET PO (05:30)
[2024-12-22] MEDS: IPRATROPIUM 0.5 MG/ALBUTEROL SULFATE 2.5 MG AMPUL.NEB 3 ML INHALATION ×3 (07:12→21:48)
[2024-12-22] MEDS: FLUTICASONE/UMECLIDIN/VILANTER 100-62.5-25 MCG ELLIPTA 1 PUFF INHALATION (07:13)
[2024-12-22 07:28] LABS: Hematocrit 32.5 % (37.0-47.0); Hemoglobin 10.7 g/dL (12.0-15.0); Mean Corpuscular HGB Conc 32.9 g/dl (32-36); Mean Corpuscular Hemoglobin 32.2 pg (26-34); Mean Corpuscular Volume 97.9 fl (80-100); Mean Platelet Volume 10.1 fl (7.4-10.4); Platelet Count Result 215 k/mm3 (150-375); Red Blood Count 3.32 M/mm3 (4.2-5.4); White Blood Count 15.8 K/mm3 (4.5-10.0)
[2024-12-22 07:38] LABS: INR 2.4; Prothrombin Time 26.6 Seconds (11.1-14.7)
[2024-12-22 07:42] LABS: Anion Gap 6 mmol/L (4-12); Blood Urea Nitrogen 16 mg/dL (7-17); Calcium 8.6 mg/dL (8.4-10.2); Carbon Dioxide 27 mmol/L (22-30); Chloride 104 mmol/L (98-107); Estimated CRCL calculation 93 ml/min; Estimated Glomerular Filt Rate > 60; Glucose 94 mg/dL (65-110); Magnesium 1.9 mg/dL (1.6-2.3); Sodium 137 mmol/L (137-145)
[2024-12-22] MEDS: LORATADINE 10 MG TABLET PO (08:47)
[2024-12-22] MEDS: guaiFENesin 12 HR 600 MG TABCR 1200 MG PO ×2 (08:47→21:11)
[2024-12-22] MEDS: predniSONE 20 MG TABLET 40 MG PO (08:47)
[2024-12-22 11:20] LABS: Free T4 Free Thyroxine Reflex 1.28 ng/dL (0.78-2.19)
[2024-12-22 12:09] LABS: Total Triiodothyronine (T3) 0.68 NG/ML (0.97-1.69)
--- NOTE | 2024-12-22 12:33 | P.PNIM_ITS ---
Progress Note: A&P Assessment and Plan (1) Pneumonia: Code(s): J18.9 - Pneumonia, unspecified organism Status: Acute Assessment and Plan: * Levofloxacin 750 mg IVPB daily. * Duoneb q 6 * Incentive spirometer. * Prednisone 40 mg PO daily. * Guaifenesin 1,200 mg PO q 12. * 02@2LNC with Sa02 96%. * CPT * Sputum culture pending. * Blood cultures no growth to date. * WBC improving 16.2>15.8. (2) Abnormal chest CT: Code(s): R93.89 - Abnormal findings on diagnostic imaging of other specified body structures Status: Acute Assessment and Plan: * Probable chronic changes in the right upper lobe with mild volume loss and bronchiectatic change and peripheral pleural-parenchymal thickening * antibiotics will be changed to levofloxacin for Pseudomonas coverage as we do not have prior sputum cultures. * Sputum culture pending. * Blood cultures no growth to date. 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 * INR 2.4 * Monitor level. (4) Suspected chronic obstructive pulmonary disease based on initial evaluation: Code(s): J44.9 - Chronic obstructive pulmonary disease, unspecified Status: Acute Assessment and Plan: * Duoneb q 6. * Incentive spirometer. * Prednisone 40 mg PO daily. * Guaifenesin 1,200 mg PO q 12. (5) Hypothyroidism, unspecified: Qualifiers: Hypothyroidism type: unspecified Qualified Code(s): E03.9 - Hypothyroidism, unspecified Code(s): E03.9 - Hypothyroidism, unspecified Status: Acute Assessment and Plan: * TSH 4.090 * Continue Levothyroxine 88 mcg PO daily. Subjective Date/time seen: 12/22/24 12:33 Interval history: Patient reports not feeling much better. Patient reports using Breztri at home that was prescribed by primary, patient reports that it does not help. Patient does not see a Inventory Associate outpatient. Patient reports shortness of breath at times with green sputum for the past 7-8 days. Patient denies chest pain, palpitations, headache, dizziness, nausea, or vomiting. Patient reports that she is on Warfarin for a history of blood clot in her right neck area. is at bedside. Review of Systems Review of Systems: All systems reviewed & are unremarkable except as noted in HPI and below Exam Const: General: comfortable and no acute distress Resp: Auscultation: wheezes expiratory wheezes Other: slightly coarse Cardio: Rate: regular rate Rhythm: regular rhythm GI: GI Palp: Yes Soft to palpation Auscultation: normal bowel sounds Skin: General skin exam: no rashes or lesions noted Neuro: Speech: normal speech Psych: Mental Status: mental status grossly normal Affect: normal affect Objective Data Vital Signs Vital Signs: Vital Signs - 24 hr 12/21/24 16:40 12/21/24 16:40 12/21/24 16:43 Temperature 97.5 F L Pulse Rate 95 114 H Respiratory Rate 18 20 Blood Pressure 149/82 H Pulse Oximetry 97 98 Oxygen Delivery Room Air Room Air Oxygen Flow Rate 12/21/24 16:51 12/21/24 17:52 12/21/24 18:07 Temperature Pulse Rate 96 93 96 Respiratory Rate 21 H 20 20 Blood Pressure Pulse Oximetry Oxygen Delivery Oxygen Flow Rate 12/21/24 18:48 12/21/24 18:54 12/21/24 19:14 Temperature Pulse Rate 101 H 99 Respiratory Rate 18 14 Blood Pressure 129/70 Pulse Oximetry 95 94 Oxygen Delivery Nasal Cannula Oxygen Flow Rate 2 12/21/24 19:16 12/21/24 19:16 12/21/24 19:17 Temperature 98 F Pulse Rate 100 98 Respiratory Rate 22 H Blood Pressure 120/68 Pulse Oximetry 98 98 Oxygen Delivery Nasal Cannula Oxygen Flow Rate 2 12/21/24 19:47 12/21/24 20:42 12/21/24 20:50 Temperature 97.5 F L Pulse Rate 103 H 107 H Respiratory Rate 22 H 20 Blood Pressure 124/77 140/78 Pulse Oximetry 98 95 94 Oxygen Delivery Nasal Cannula Oxygen Flow Rate 2 12/21/24 21:58 12/22/24 02:45 12/22/24 05:17 Temperature 98 F Pulse Rate 93 Respiratory Rate 20 Blood Pressure 148/82 H Pulse Oximetry 94 95 96 Oxygen Delivery Nasal Cannula Nasal Cannula Oxygen Flow Rate 2 2 12/22/24 07:10 12/22/24 07:10 12/22/24 07:20 Temperature Pulse Rate 85 85 87 Respiratory Rate 18 18 18 Blood Pressure Pulse Oximetry 95 Oxygen Delivery Nasal Cannula Oxygen Flow Rate 2 12/22/24 08:00 Temperature Pulse Rate Respiratory Rate Blood Pressure Pulse Oximetry 96 Oxygen Delivery Nasal Cannula Oxygen Flow Rate 2 Intake/Output Intake/Output: Intake & Output 12/19/24 12/20/24 12/21/24 12/22/24 23:59 23:59 23:59 23:59 Intake Total 1300 830 Output Total 600 Balance 1300 230 Meds/Results Medications: Active Medications Generic Name Dose Route Start Last Admin Trade Name Freq PRN Reason Stop Dose Admin Acetaminophen 650 mg 12/21/24 21:58 Acetaminophen 325 Mg Tablet PO Q6H PRN Mild Pain (1-3) or Fever Albuterol/Ipratropium 3 ml 12/22/24 08:00 12/22/24 07:12 Ipratropium 0.5 Mg/Albuterol Sulfate 2.5 Mg Ampul.Neb 3 Ml INHALATION 3 ml Q6HRT JUANJOSE Administration Dicyclomine HCl 20 mg 12/21/24 22:10 12/22/24 05:30 Dicyclomine Hcl 10 Mg Capsule BY MOUTH 20 mg Q8HR JUANJOSE Administration Fluticasone/Umeclidinium/Vilanterol 1 puff 12/22/24 08:00 12/22/24 07:13 Fluticasone/Umeclidin/Vilanter 100-62.5-25 Mcg Ellipta INHALATION 1 puff DAILYRT JUANJOSE Administration Gabapentin 800 mg 12/22/24 21:00 Gabapentin 400 Mg Capsule PO QHS JUANJOSE Guaifenesin 1,200 mg 12/22/24 09:00 12/22/24 08:47 Guaifenesin 12 Hr 600 Mg Tabcr PO 1,200 mg Q12HR JUANJOSE Administration Levofloxacin/Dextrose 750 mg in 150 mls @ 100 mls/hr 12/21/24 22:00 12/22/24 00:26 Levaquin 750 Mg/D5w 150 Ml IVPB Infused Q24H JUANJOSE Infusion Levothyroxine Sodium 88 mcg 12/22/24 06:30 12/22/24 05:30 Levothyroxine Sodium 88 Mcg Tablet PO 88 mcg DAILY@0630 JUANJOSE Administration Loratadine 10 mg 12/22/24 09:00 12/22/24 08:47 Loratadine 10 Mg Tablet PO 10 mg DAILY JUANJOSE Administration Prednisone 40 mg 12/22/24 08:00 12/22/24 08:47 Prednisone 20 Mg Tablet PO 12/25/24 08:01 40 mg DAILY@0800 [facility] Administration Primidone 50 mg 12/22/24 21:00 Primidone 50 Mg Tablet PO QHS JUANJOSE Ropinirole HCl 0.25 mg 12/21/24 22:10 12/21/24 22:56 Ropinirole Hcl 0.25 Mg Tablet BY MOUTH 0.25 mg HS JUANJOSE Administration Warfarin Sodium 0.5 mg 12/22/24 17:00 Warfarin (*Pbkc) 0.5 Mg Tablet BY MOUTH DAILY@1700 JUANJOSE Warfarin Sodium 4 mg 12/22/24 17:00 Warfarin (*Pbkc) 4 Mg Tablet PO DAILY@1700 [facility] Radiology Results: ITS Impressions Chest X-Ray 12/21/24 14:42 IMPRESSION: 1. 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 2. Small pleural effusions. Chest CTA 12/21/24 17:40 Impression: No evidence of pulmonary embolus, aortic dissection, or aortic aneurysm. Right-sided rib fractures, as above, possibly acute to subacute in nature. Correlate for point tenderness. Mild patchy ground glass opacities, right lung worse than left. Findings suggest infectious/inflammatory process versus possibly minimal pulmonary edema. Probable chronic changes in the right upper lobe with mild volume loss and bronchiectatic change and peripheral pleural-parenchymal thickening. This could reflect postradiation change, given associated appearance of prior right mastectomy. Multiple small sclerotic lesions in the spine, as above, which could reflect treated metastatic disease. Labs Labs: Laboratory Results - last 24 hr 12/21/24 12/21/24 12/22/24 15:18 18:35 06:50 WBC 16.2 H 15.8 H RBC 3.78 L 3.32 L Hgb 12.2 10.7 L Hct 36.7 L 32.5 L MCV 97.1 97.9 MCH 32.3 32.2 MCHC 33.2 32.9 RDW 16.1 H 16.0 H Plt Count 231 215 MPV 9.9 10.1 Immature Gran % (Auto) Not Reportable Neut % (Auto) Not Reportable Lymph % (Auto) Not Reportable [place] % (Auto) Not Reportable Eos % (Auto) Not Reportable Baso % (Auto) Not Reportable Lymph # (Auto) Not Reportable [place] # (Auto) Not Reportable Eos # (Auto) Not Reportable Baso # (Auto) Not Reportable Abs Immat Gran (auto) Not Reportable Absolute Neuts (auto) Not Reportable Absolute Nucleated RBC Not Reportable Total Counted 100 Neutrophils % (Manual) 90 H Band Neutrophils % 1 Lymphocytes % (Manual) 5.0 L Monocytes % (Manual) 4 Nucleated RBC % Not Reportable Abs Neuts (Manual) 14.74 H Abs Lymphs (Manual) 0.81 L Abs Monocytes (Manual) 0.64 Platelet Estimate Adequate Anisocytosis 2+ Schistocytes None seen PT 26.0 H 26.6 H INR 2.4 2.4 APTT 39.3 H Sodium 135 L 137 Potassium 3.8 4.0 Chloride 101 104 Carbon Dioxide 26 27 Anion Gap 8 6 BUN 21 H 16 Creatinine 0.82 0.57 L Estim Creat Clear Calc 66 93 Estimated GFR > 60 > 60 Glucose 113 H 94 Calcium 9.7 8.6 Magnesium 1.9 Total Bilirubin 0.8 AST 31 ALT 35 Alkaline Phosphatase 114 Total Protein 7.0 Albumin 3.6 TSH (Reflex) Free T4 Total T3 Nasal MRSA (PCR) Not detected Influenza A (RT-PCR) Negative Influenza B (RT-PCR) Negative RSV (RT-PCR) Negative SARS-CoV-2 RNA (RT-PCR) Negative 12/22/24 06:51 WBC RBC Hgb Hct MCV MCH MCHC RDW Plt Count MPV Immature Gran % (Auto) Neut % (Auto) Lymph % (Auto) [place] % (Auto) Eos % (Auto) Baso % (Auto) Lymph # (Auto) [place] # (Auto) Eos # (Auto) Baso # (Auto) Abs Immat Gran (auto) Absolute Neuts (auto) Absolute Nucleated RBC Total Counted Neutrophils % (Manual) Band Neutrophils % Lymphocytes % (Manual) Monocytes % (Manual) Nucleated RBC % Abs Neuts (Manual) Abs Lymphs (Manual) Abs Monocytes (Manual) Platelet Estimate Anisocytosis Schistocytes PT INR APTT Sodium Potassium Chloride Carbon Dioxide Anion Gap BUN Creatinine Estim Creat Clear Calc Estimated GFR Glucose Calcium Magnesium Total Bilirubin AST ALT Alkaline Phosphatase Total Protein Albumin TSH (Reflex) 4.090 Free T4 1.28 Total T3 0.68 L Nasal MRSA (PCR) Influenza A (RT-PCR) Influenza B (RT-PCR) RSV (RT-PCR) SARS-CoV-2 RNA (RT-PCR) Quality VTE Prophylaxis VTE prophylaxis: pharmacologic ordered (on warfarin with therapeutic INR)
[2024-12-22] MEDS: WARFARIN (*PBKC) 0.5 MG TABLET BY MOUTH (17:02)
[2024-12-22] MEDS: WARFARIN (*PBKC) 4 MG TABLET PO (17:02)
[2024-12-22] MEDS: GABAPENTIN 400 MG CAPSULE 800 MG PO (21:11)
[2024-12-22] MEDS: PRIMIDONE 50 MG TABLET PO (21:11)
[2024-12-22] MEDS: rOPINIRole HCL 0.25 MG TABLET BY MOUTH (21:12)
[2024-12-22] MEDS: levoFLOXacin 750 MG/D5W 150 ML 750 MG/150 ML BAG 100 MG IVPB (21:16)
[2024-12-23] VITALS (12 sets, daily range): BP systolic 130–144; BP diastolic 78–90; PULSE 72–101; RESP 14–20; TEMP 36.3–36.8; O2SAT 95–97
[2024-12-23] MEDS: IPRATROPIUM 0.5 MG/ALBUTEROL SULFATE 2.5 MG AMPUL.NEB 3 ML INHALATION ×4 (01:57→22:14)
[2024-12-23] MEDS: DICYCLOMINE HCL 10 MG CAPSULE 20 MG BY MOUTH ×3 (05:59→21:03)
[2024-12-23] MEDS: LEVOTHYROXINE SODIUM 88 MCG TABLET PO (06:00)
[2024-12-23] MEDS: LORATADINE 10 MG TABLET PO (08:29)
[2024-12-23] MEDS: guaiFENesin 12 HR 600 MG TABCR 1200 MG PO ×2 (08:29→20:43)
[2024-12-23] MEDS: predniSONE 20 MG TABLET 40 MG PO (08:29)
[2024-12-23 08:32] LABS: Basophils Percent Auto 0.2 % (0.2-1.2); Eosinophils Percent Auto 0.2 % (0-4.4); Hematocrit 33.4 % (37.0-47.0); Hemoglobin 10.8 g/dL (12.0-15.0); Immature Granulocyte Absolute 0.26 K/mm3 (0.00-0.031); Immature Granulocyte Percent A 2.5 % (0-0.5); Lymphocytes Absolute Auto 1.39 K/mm3 (0.9-3.2); Lymphocytes Percent Auto 13.4 % (18.3-44.2); Mean Corpuscular HGB Conc 32.3 g/dl (32-36); Mean Corpuscular Hemoglobin 32.3 pg (26-34); Mean Platelet Volume 9.7 fl (7.4-10.4); Monocytes Absolute Auto 0.7 K/mm3 (0.1-0.6); Monocytes Percent Auto 6.9 % (2.6-8.5); Neutrophils Percent Auto 76.8 % (45.5-73.1); Platelet Count Result 229 k/mm3 (150-375); Red Blood Count 3.34 M/mm3 (4.2-5.4); Red Cell Distribution Width 16.2 % (11.5-14.5); White Blood Count 10.4 K/mm3 (4.5-10.0)
[2024-12-23 08:55] LABS: INR 2.3; Prothrombin Time 26.2 Seconds (11.1-14.7)
[2024-12-23 08:59] LABS: Alanine Aminotransferase 28 U/L (6-35); Albumin Level 3.2 g/dL (3.5-5.1); Alkaline Phosphatase 93 U/L (38-126); Anion Gap 3 mmol/L (4-12); Aspartate Amino Transferase 30 U/L (14-36); Bilirubin,Total 0.4 mg/dL (0.2-1.3); Blood Urea Nitrogen 18 mg/dL (7-17); Calcium 8.7 mg/dL (8.4-10.2); Carbon Dioxide 30 mmol/L (22-30); Chloride 105 mmol/L (98-107); Estimated CRCL calculation 86 ml/min; Estimated Glomerular Filt Rate > 60; Glucose 100 mg/dL (65-110); Magnesium 1.9 mg/dL (1.6-2.3); Sodium 138 mmol/L (137-145)
[2024-12-23] MEDS: FLUTICASONE/UMECLIDIN/VILANTER 100-62.5-25 MCG ELLIPTA 1 PUFF INHALATION (09:40)
--- NOTE | 2024-12-23 10:49 | P.PNIM_ITS ---
Progress Note: A&P Assessment and Plan (1) Pneumonia: Code(s): J18.9 - Pneumonia, unspecified organism Status: Acute Assessment and Plan: * Levofloxacin 750 mg IVPB daily. * Duoneb q 6 * Incentive spirometer. * Prednisone 40 mg PO daily. * Guaifenesin 1,200 mg PO q 12. * 02@2LNC with Sa02 96%. Add Bubbler to prevent dryness. * CPT * Sputum culture pending. * Blood cultures no growth to date. * WBC improving 16.2>15.8>10.4. * Apnea link overnight. (2) Abnormal chest CT: Code(s): R93.89 - Abnormal findings on diagnostic imaging of other specified body s tructures Status: Acute Assessment and Plan: * Probable chronic changes in the right upper lobe with mild volume loss and bronchiectatic change and peripheral pleural-parenchymal thickening * antibiotics will be changed to levofloxacin for Pseudomonas coverage as we do not have prior sputum cultures. * Sputum culture pending. * Blood cultures no growth to date. 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 * INR 2.3 * Monitor level. (4) Suspected chronic obstructive pulmonary disease based on initial evaluation: Code(s): J44.9 - Chronic obstructive pulmonary disease, unspecified Status: Acute Assessment and Plan: * Duoneb q 6. * Incentive spirometer. * Prednisone 40 mg PO daily. * Guaifenesin 1,200 mg PO q 12. (5) Hypothyroidism, unspecified: Qualifiers: Hypothyroidism type: unspecified Qualified Code(s): E03.9 - Hypothyroidism, unspecified Code(s): E03.9 - Hypothyroidism, unspecified Status: Acute Assessment and Plan: * TSH 4.090 * Continue Levothyroxine 88 mcg PO daily. Subjective Date/time seen: 12/23/24 10:49 Interval history: Patient reports not feeling much better. Patient reports that she had a nose bleed overnight and did not rest well. Patient reports shortness of breath at times. Denies chest pain, palpitations, headache, dizziness, nausea, or vomiting. Review of Systems Review of Systems: All systems reviewed & are unremarkable except as noted in HPI and below Exam Const: General: comfortable and no acute distress Resp: Effort & Inspection: normal respiratory effort Auscultation: diminished lung sounds Cardio: Rate: regular rate Rhythm: regular rhythm GI: GI Palp: Yes Soft to palpation Auscultation: normal bowel sounds Skin: General skin exam: no rashes or lesions noted Neuro: Speech: normal speech Extrem: General: no pedal edema Psych: Mental Status: mental status grossly normal Affect: normal affect Objective Data Vital Signs Vital Signs: Vital Signs - 24 hr 12/22/24 12:53 12/22/24 13:03 12/22/24 14:00 Temperature 97.2 F L Pulse Rate 83 86 100 Respiratory Rate 18 18 20 Blood Pressure 127/79 Pulse Oximetry 95 Oxygen Delivery Oxygen Flow Rate 12/22/24 21:15 12/22/24 21:46 12/22/24 21:51 Temperature 97.0 F L Pulse Rate 94 82 Respiratory Rate 16 18 Blood Pressure 135/69 Pulse Oximetry 96 96 Oxygen Delivery Nasal Cannula Oxygen Flow Rate 2 12/22/24 21:54 12/23/24 02:00 12/23/24 02:09 Temperature Pulse Rate 83 72 72 Respiratory Rate 18 16 16 Blood Pressure Pulse Oximetry Oxygen Delivery Oxygen Flow Rate 12/23/24 06:00 12/23/24 09:41 12/23/24 09:41 Temperature 97.8 F Pulse Rate 78 82 82 Respiratory Rate 16 20 20 Blood Pressure 142/78 H Pulse Oximetry 97 95 Oxygen Delivery Nasal Cannula Oxygen Flow Rate 2 12/23/24 09:51 Temperature Pulse Rate 78 Respiratory Rate 20 Blood Pressure Pulse Oximetry Oxygen Delivery Oxygen Flow Rate Intake/Output Intake/Output: Intake & Output 12/20/24 12/21/24 12/22/24 12/23/24 23:59 23:59 23:59 23:59 Intake Total 1300 1810 600 Output Total 600 Balance 1300 1210 600 Meds/Results Medications: Active Medications Generic Name Dose Route Start Last Admin Trade Name Freq PRN Reason Stop Dose Admin Acetaminophen 650 mg 12/21/24 21:58 Acetaminophen 325 Mg Tablet PO Q6H PRN Mild Pain (1-3) or Fever Albuterol/Ipratropium 3 ml 12/22/24 08:00 12/23/24 09:40 Ipratropium 0.5 Mg/Albuterol Sulfate 2.5 Mg Ampul.Neb 3 Ml INHALATION 3 ml Q6HRT [facility] Administration Dicyclomine HCl 20 mg 12/21/24 22:10 12/23/24 05:59 Dicyclomine Hcl 10 Mg Capsule BY MOUTH 20 mg Q8HR JUANJOSE Administration Fluticasone/Umeclidinium/Vilanterol 1 puff 12/22/24 08:00 12/23/24 09:40 Fluticasone/Umeclidin/Vilanter 100-62.5-25 Mcg Ellipta INHALATION 1 puff DAILYRT JUANJOSE Administration Gabapentin 800 mg 12/22/24 21:00 12/22/24 21:11 Gabapentin 400 Mg Capsule PO 800 mg QHS JUANJOSE Administration Guaifenesin 1,200 mg 12/22/24 09:00 12/23/24 08:29 Guaifenesin 12 Hr 600 Mg Tabcr PO 1,200 mg Q12HR JUANJOSE Administration Levofloxacin/Dextrose 750 mg in 150 mls @ 100 mls/hr 12/21/24 22:00 12/22/24 21:16 Levaquin 750 Mg/D5w 150 Ml IVPB 100 mls/hr Q24H JUANJOSE Administration Levothyroxine Sodium 88 mcg 12/22/24 06:30 12/23/24 06:00 Levothyroxine Sodium 88 Mcg Tablet PO 88 mcg DAILY@0630 JUANJOSE Administration Loratadine 10 mg 12/22/24 09:00 12/23/24 08:29 Loratadine 10 Mg Tablet PO 10 mg DAILY JUANJOSE Administration Prednisone 40 mg 12/22/24 08:00 12/23/24 08:29 Prednisone 20 Mg Tablet PO 12/25/24 08:01 40 mg DAILY@0800 JUANJOSE Administration Primidone 50 mg 12/22/24 21:00 12/22/24 21:11 Primidone 50 Mg Tablet PO 50 mg QHS JUANJOSE Administration Ropinirole HCl 0.25 mg 12/21/24 22:10 12/22/24 21:12 Ropinirole Hcl 0.25 Mg Tablet BY MOUTH 0.25 mg HS JUANJOSE Administration Warfarin Sodium 0.5 mg 12/22/24 17:00 12/22/24 17:02 Warfarin (*Pbkc) 0.5 Mg Tablet BY MOUTH 0.5 mg DAILY@1700 JUANJOSE Administration Warfarin Sodium 4 mg 12/22/24 17:00 12/22/24 17:02 Warfarin (*Pbkc) 4 Mg Tablet PO 4 mg DAILY@1700 JUANJOSE Administration Radiology Results: ITS Impressions Chest X-Ray 12/21/24 14:42 IMPRESSION: 1. 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 2. Small pleural effusions. Chest CTA 12/21/24 17:40 Impression: No evidence of pulmonary embolus, aortic dissection, or aortic aneurysm. Right-sided rib fractures, as above, possibly acute to subacute in nature. Correlate for point tenderness. Mild patchy ground glass opacities, right lung worse than left. Findings suggest infectious/inflammatory process versus possibly minimal pulmonary edema. Probable chronic changes in the right upper lobe with mild volume loss and bronchiectatic change and peripheral pleural-parenchymal thickening. This could reflect postradiation change, given associated appearance of prior right mastectomy. Multiple small sclerotic lesions in the spine, as above, which could reflect treated metastatic disease. Labs Labs: Laboratory Results - last 24 hr 12/22/24 12/23/24 06:51 08:05 WBC 10.4 H RBC 3.34 L Hgb 10.8 L Hct 33.4 L MCV 100.0 MCH 32.3 MCHC 32.3 RDW 16.2 H Plt Count 229 MPV 9.7 Immature Gran % (Auto) 2.5 H Neut % (Auto) 76.8 H Lymph % (Auto) 13.4 L [place] % (Auto) 6.9 Eos % (Auto) 0.2 Baso % (Auto) 0.2 Lymph # (Auto) 1.39 [place] # (Auto) 0.7 H Eos # (Auto) 0.0 Baso # (Auto) 0.0 Abs Immat Gran (auto) 0.26 H Absolute Neuts (auto) 8.0 H Absolute Nucleated RBC 0.000 Nucleated RBC % 0.0 PT 26.2 H INR 2.3 Sodium 138 Potassium 4.0 Chloride 105 Carbon Dioxide 30 Anion Gap 3 L BUN 18 H Creatinine 0.62 L Estim Creat Clear Calc 86 Estimated GFR > 60 Glucose 100 Calcium 8.7 Magnesium 1.9 Total Bilirubin 0.4 AST 30 ALT 28 Alkaline Phosphatase 93 Total Protein 6.0 L Albumin 3.2 L Free T4 1.28 Total T3 0.68 L Quality VTE Prophylaxis VTE prophylaxis: pharmacologic ordered (on warfarin with therapeutic INR)
[2024-12-23] MEDS: WARFARIN (*PBKC) 4 MG TABLET PO (17:35)
[2024-12-23] MEDS: WARFARIN (*PBKC) 0.5 MG TABLET BY MOUTH (17:36)
[2024-12-23] MEDS: PRIMIDONE 50 MG TABLET PO (20:42)
[2024-12-23] MEDS: GABAPENTIN 400 MG CAPSULE 800 MG PO (20:43)
[2024-12-23] MEDS: rOPINIRole HCL 0.25 MG TABLET BY MOUTH (20:43)
[2024-12-23] MEDS: levoFLOXacin 750 MG/D5W 150 ML 750 MG/150 ML BAG 100 MG IVPB (21:03)
[2024-12-24] VITALS (10 sets, daily range): BP systolic 126–136; BP diastolic 79–90; PULSE 76–115; RESP 16–20; TEMP 35.3–37; O2SAT 92–95
[2024-12-24] MEDS: LEVOTHYROXINE SODIUM 88 MCG TABLET PO (05:48)
[2024-12-24] MEDS: DICYCLOMINE HCL 10 MG CAPSULE 20 MG BY MOUTH ×3 (05:49→22:29)
[2024-12-24 06:23] LABS: Basophils Percent Auto 0.1 % (0.2-1.2); Eosinophils Percent Auto 0.1 % (0-4.4); Hemoglobin 11.2 g/dL (12.0-15.0); Immature Granulocyte Absolute 0.23 K/mm3 (0.00-0.031); Immature Granulocyte Percent A 2.5 % (0-0.5); Lymphocytes Absolute Auto 1.45 K/mm3 (0.9-3.2); Mean Corpuscular Hemoglobin 31.9 pg (26-34); Mean Corpuscular Volume 99.7 fl (80-100); Mean Platelet Volume 9.7 fl (7.4-10.4); Monocytes Absolute Auto 0.5 K/mm3 (0.1-0.6); Neutrophils Absolute Auto 6.8 K/mm3 (1.3-6.7); Neutrophils Percent Auto 75.3 % (45.5-73.1); Platelet Count Result 242 k/mm3 (150-375); Red Blood Count 3.51 M/mm3 (4.2-5.4); Red Cell Distribution Width 16.3 % (11.5-14.5); White Blood Count 9.1 K/mm3 (4.5-10.0)
[2024-12-24 06:33] LABS: Alanine Aminotransferase 27 U/L (6-35); Albumin Level 3.2 g/dL (3.5-5.1); Alkaline Phosphatase 88 U/L (38-126); Anion Gap 7 mmol/L (4-12); Aspartate Amino Transferase 23 U/L (14-36); Bilirubin,Total 0.4 mg/dL (0.2-1.3); Blood Urea Nitrogen 15 mg/dL (7-17); Calcium 8.8 mg/dL (8.4-10.2); Carbon Dioxide 27 mmol/L (22-30); Chloride 103 mmol/L (98-107); Estimated CRCL calculation 83 ml/min; Estimated Glomerular Filt Rate > 60; Glucose 114 mg/dL (65-110); Potassium 4.6 mmol/L (3.4-5.0); Sodium 137 mmol/L (137-145)
[2024-12-24 06:46] LABS: INR 2.1; Prothrombin Time 24.6 Seconds (11.1-14.7)
[2024-12-24] MEDS: predniSONE 20 MG TABLET 40 MG PO (08:44)
[2024-12-24] MEDS: guaiFENesin 12 HR 600 MG TABCR 1200 MG PO ×2 (08:45→20:43)
[2024-12-24] MEDS: LORATADINE 10 MG TABLET PO (08:45)
--- NOTE | 2024-12-24 10:18 | PCRCNOTE ---
Window of time for administration has passed. See next scheduled administration.
--- NOTE | 2024-12-24 12:17 | P.PNIM_ITS ---
Progress Note: A&P Assessment and Plan (1) Pneumonia: Qualifiers: Laterality: bilateral Lung location: unspecified part of lung Pneumonia type: due to unspecified organism Qualified Code(s): J18.9 - Pneumonia, unspecified organism Code(s): J18.9 - Pneumonia, unspecified organism Status: Acute Assessment and Plan: * Levofloxacin 750 mg IVPB daily. * Duoneb q 6 * Incentive spirometer. * Prednisone 40 mg PO daily. * Guaifenesin 1,200 mg PO q 12. * Sa02 95% RA. Add Bubbler to prevent dryness. * CPT * Sputum culture pending. * Blood cultures no growth to date. * WBC improving 16.2>15.8>10.4> 9.1. * Apnea link overnight. (2) Abnormal chest CT: Code(s): R93.89 - Abnormal findings on diagnostic imaging of other specified body structures Status: Acute Assessment and Plan: * Probable chronic changes in the right upper lobe with mild volume loss and bronchiectatic change and peripheral pleural-parenchymal thickening * antibiotics will be changed to levofloxacin for Pseudomonas coverage as we do not have prior sputum cultures. * Sputum culture pending. * Blood cultures no growth to date. 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 * INR 2.0 * Monitor level. (4) Suspected chronic obstructive pulmonary disease based on initial evaluation: Code(s): J44.9 - Chronic obstructive pulmonary disease, unspecified Status: Acute Assessment and Plan: * Duoneb q 6. * Incentive spirometer. * Prednisone 40 mg PO daily. * Guaifenesin 1,200 mg PO q 12. (5) Hypothyroidism, unspecified: Qualifiers: Hypothyroidism type: unspecified Qualified Code(s): E03.9 - Hypothyroidism, unspecified Code(s): E03.9 - Hypothyroidism, unspecified Status: Acute Assessment and Plan: * TSH 4.090 * Continue Levothyroxine 88 mcg PO daily. Subjective Date/time seen: 12/24/24 12:17 Interval history: Patient reports feeling that breathing is a little better today. Patient reports some BE. Patient denies chest pain, palpitations, headache, dizziness, nausea, or vomiting. Review of Systems Review of Systems: All systems reviewed & are unremarkable except as noted in HPI and below Exam Const: General: comfortable and no acute distress Resp: Effort & Inspection: normal respiratory effort Auscultation: diminished lung sounds Cardio: Rate: regular rate Rhythm: regular rhythm GI: GI Palp: Yes Soft to palpation Auscultation: normal bowel sounds Skin: General skin exam: no rashes or lesions noted Neuro: Speech: normal speech Extrem: General: no pedal edema Psych: Mental Status: mental status grossly normal Affect: normal affect Objective Data Vital Signs Vital Signs: Vital Signs - 24 hr 12/23/24 14:00 12/23/24 14:41 12/23/24 14:50 Temperature 97.3 F L Pulse Rate 85 88 88 Respiratory Rate 18 20 20 Blood Pressure 144/90 H Pulse Oximetry 97 Oxygen Delivery 12/23/24 20:45 12/23/24 22:15 12/23/24 22:25 Temperature 98.2 F Pulse Rate 101 H 78 80 Respiratory Rate 14 20 Blood Pressure 130/78 Pulse Oximetry 97 Oxygen Delivery 12/24/24 05:43 12/24/24 05:51 12/24/24 08:00 Temperature 97.9 F Pulse Rate 94 Respiratory Rate 16 Blood Pressure 136/90 Pulse Oximetry 95 92 92 Oxygen Delivery Room Air Room Air Intake/Output Intake/Output: Intake & Output 12/21/24 12/22/24 12/23/24 12/24/24 23:59 23:59 23:59 23:59 Intake Total 1300 1960 1320 860 Output Total 600 3 Balance 1300 1360 1317 860 Meds/Results Medications: Active Medications Generic Name Dose Route Start Last Admin Trade Name Ishanq PRN Reason Stop Dose Admin Acetaminophen 650 mg 12/21/24 21:58 Acetaminophen 325 Mg Tablet PO Q6H PRN Mild Pain (1-3) or Fever Albuterol/Ipratropium 3 ml 12/22/24 08:00 12/24/24 10:18 Ipratropium 0.5 Mg/Albuterol Sulfate 2.5 Mg Ampul.Neb 3 Ml INHALATION Not Given Q6HRT JUANJOSE Dicyclomine HCl 20 mg 12/21/24 22:10 12/24/24 05:49 Dicyclomine Hcl 10 Mg Capsule BY MOUTH 20 mg Q8HR JUANJOSE Administration Fluticasone/Umeclidinium/Vilanterol 1 puff 12/22/24 08:00 12/24/24 10:18 Fluticasone/Umeclidin/Vilanter 100-62.5-25 Mcg Ellipta INHALATION Not Given DAILYRT [facility] Gabapentin 800 mg 12/22/24 21:00 12/23/24 20:43 Gabapentin 400 Mg Capsule PO 800 mg QHS JUANJOSE Administration Guaifenesin 1,200 mg 12/22/24 09:00 12/24/24 08:45 Guaifenesin 12 Hr 600 Mg Tabcr PO 1,200 mg Q12HR JUANJOSE Administration Levofloxacin 750 mg 12/24/24 21:00 Levofloxacin 750 Mg Tablet PO 12/27/24 21:01 QHS [facility] Levothyroxine Sodium 88 mcg 12/22/24 06:30 12/24/24 05:48 Levothyroxine Sodium 88 Mcg Tablet PO 88 mcg DAILY@0630 [facility] Administration Loratadine 10 mg 12/22/24 09:00 12/24/24 08:45 Loratadine 10 Mg Tablet PO 10 mg DAILY JUANJOSE Administration Prednisone 40 mg 12/22/24 08:00 12/24/24 08:44 Prednisone 20 Mg Tablet PO 12/25/24 08:01 40 mg DAILY@0800 [facility] Administration Primidone 50 mg 12/22/24 21:00 12/23/24 20:42 Primidone 50 Mg Tablet PO 50 mg QHS [facility] Administration Ropinirole HCl 0.25 mg 12/21/24 22:10 12/23/24 20:43 Ropinirole Hcl 0.25 Mg Tablet BY MOUTH 0.25 mg HS JUANJOSE Administration Warfarin Sodium 0.5 mg 12/22/24 17:00 12/23/24 17:36 Warfarin (*Pbkc) 0.5 Mg Tablet BY MOUTH 0.5 mg DAILY@1700 [facility] Administration Warfarin Sodium 4 mg 12/22/24 17:00 12/23/24 17:35 Warfarin (*Pbkc) 4 Mg Tablet PO 4 mg DAILY@1700 [facility] Administration Radiology Results: ITS Impressions Chest X-Ray 12/21/24 14:42 IMPRESSION: 1. 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 2. Small pleural effusions. Chest CTA 12/21/24 17:40 Impression: No evidence of pulmonary embolus, aortic dissection, or aortic aneurysm. Right-sided rib fractures, as above, possibly acute to subacute in nature. Correlate for point tenderness. Mild patchy ground glass opacities, right lung worse than left. Findings suggest infectious/inflammatory process versus possibly minimal pulmonary edema. Probable chronic changes in the right upper lobe with mild volume loss and bronchiectatic change and peripheral pleural-parenchymal thickening. This could reflect postradiation change, given associated appearance of prior right mastectomy. Multiple small sclerotic lesions in the spine, as above, which could reflect treated metastatic disease. Labs Labs: Laboratory Results - last 24 hr 12/24/24 06:05 WBC 9.1 RBC 3.51 L Hgb 11.2 L Hct 35.0 L MCV 99.7 MCH 31.9 MCHC 32.0 RDW 16.3 H Plt Count 242 MPV 9.7 Immature Gran % (Auto) 2.5 H Neut % (Auto) 75.3 H Lymph % (Auto) 16.0 L Wilkes % (Auto) 6.0 Eos % (Auto) 0.1 Baso % (Auto) 0.1 L Lymph # (Auto) 1.45 Wilkes # (Auto) 0.5 Eos # (Auto) 0.0 Baso # (Auto) 0.0 Abs Immat Gran (auto) 0.23 H Absolute Neuts (auto) 6.8 H Absolute Nucleated RBC 0.000 Nucleated RBC % 0.0 PT 24.6 H INR 2.1 Sodium 137 Potassium 4.6 Chloride 103 Carbon Dioxide 27 Anion Gap 7 BUN 15 Creatinine 0.65 L Estim Creat Clear Calc 83 Estimated GFR > 60 Glucose 114 H Calcium 8.8 Magnesium 2.0 Total Bilirubin 0.4 AST 23 ALT 27 Alkaline Phosphatase 88 Total Protein 6.0 L Albumin 3.2 L Quality VTE Prophylaxis VTE prophylaxis: pharmacologic ordered (on warfarin with therapeutic INR)
[2024-12-24] MEDS: IPRATROPIUM 0.5 MG/ALBUTEROL SULFATE 2.5 MG AMPUL.NEB 3 ML INHALATION ×2 (14:51→19:41)
[2024-12-24 15:33] LABS: Pneumococcal Antigen Urine DETECTED
[2024-12-24] MEDS: WARFARIN (*PBKC) 4 MG TABLET PO (16:59)
[2024-12-24] MEDS: WARFARIN (*PBKC) 0.5 MG TABLET BY MOUTH (16:59)
[2024-12-24 20:08] LABS: Legionella pneumophila Ag Ur NOT DETECTED
[2024-12-24] MEDS: GABAPENTIN 400 MG CAPSULE 800 MG PO (20:43)
[2024-12-24] MEDS: rOPINIRole HCL 0.25 MG TABLET BY MOUTH (20:46)
[2024-12-24] MEDS: levoFLOXacin 750 MG TABLET PO (20:46)
[2024-12-24] MEDS: PRIMIDONE 50 MG TABLET PO (20:46)
[2024-12-25] VITALS (8 sets, daily range): BP systolic 128–151; BP diastolic 78–87; PULSE 91–129; RESP 18–20; TEMP 35.9–36.7; O2SAT 91–95
--- NOTE | 2024-12-25 02:34 | PCRCNOTE ---
Patient is on a overnight oximetry sleep study, therefore her 0200 breathing tx was not administered. See next scheduled tx.
[2024-12-25] MEDS: DICYCLOMINE HCL 10 MG CAPSULE 20 MG BY MOUTH ×2 (06:05→13:02)
[2024-12-25] MEDS: LEVOTHYROXINE SODIUM 88 MCG TABLET PO (06:05)
[2024-12-25 06:27] LABS: Basophils Percent Auto 0.3 % (0.2-1.2); Eosinophils Percent Auto 0.1 % (0-4.4); Hemoglobin 11.8 g/dL (12.0-15.0); Immature Granulocyte Absolute 0.27 K/mm3 (0.00-0.031); Immature Granulocyte Percent A 2.3 % (0-0.5); Lymphocytes Absolute Auto 1.52 K/mm3 (0.9-3.2); Lymphocytes Percent Auto 13.2 % (18.3-44.2); Mean Corpuscular HGB Conc 32.8 g/dl (32-36); Mean Corpuscular Hemoglobin 32.3 pg (26-34); Mean Corpuscular Volume 98.6 fl (80-100); Mean Platelet Volume 9.8 fl (7.4-10.4); Monocytes Absolute Auto 0.6 K/mm3 (0.1-0.6); Monocytes Percent Auto 5.2 % (2.6-8.5); Neutrophils Absolute Auto 9.1 K/mm3 (1.3-6.7); Neutrophils Percent Auto 78.9 % (45.5-73.1); Platelet Count Result 280 k/mm3 (150-375); Red Blood Count 3.65 M/mm3 (4.2-5.4); Red Cell Distribution Width 15.9 % (11.5-14.5); White Blood Count 11.5 K/mm3 (4.5-10.0)
[2024-12-25 06:37] LABS: Alanine Aminotransferase 27 U/L (6-35); Albumin Level 3.3 g/dL (3.5-5.1); Alkaline Phosphatase 82 U/L (38-126); Anion Gap 8 mmol/L (4-12); Aspartate Amino Transferase 24 U/L (14-36); Bilirubin,Total 0.4 mg/dL (0.2-1.3); Blood Urea Nitrogen 20 mg/dL (7-17); Calcium 8.6 mg/dL (8.4-10.2); Carbon Dioxide 24 mmol/L (22-30); Chloride 103 mmol/L (98-107); Estimated CRCL calculation 84 ml/min; Estimated Glomerular Filt Rate > 60; Glucose 113 mg/dL (65-110); Potassium 4.1 mmol/L (3.4-5.0); Sodium 135 mmol/L (137-145)
[2024-12-25 06:59] LABS: INR 1.9; Prothrombin Time 22.2 Seconds (11.1-14.7)
[2024-12-25] MEDS: LORATADINE 10 MG TABLET PO (08:41)
[2024-12-25] MEDS: guaiFENesin 12 HR 600 MG TABCR 1200 MG PO (08:41)
[2024-12-25] MEDS: predniSONE 20 MG TABLET 40 MG PO (08:41)
[2024-12-25] MEDS: IPRATROPIUM 0.5 MG/ALBUTEROL SULFATE 2.5 MG AMPUL.NEB 3 ML INHALATION ×2 (10:17→15:02)
[2024-12-25] MEDS: FLUTICASONE/UMECLIDIN/VILANTER 100-62.5-25 MCG ELLIPTA 1 PUFF INHALATION (10:18)
--- NOTE | 2024-12-25 11:58 | P.DS_ITS ---
DS: Admitting Diagnosis Discharge Date 12/25/24 Admitting Diagnosis Shortness of breath. 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 Labs are significant for WBC count of 16.2, INR 2.4, sodium 135, BUN 21, glucose 113. Respiratory panel was negative. Chest CTA was negative for pulmonary embolism, aortic dissection, and aortic aneurysm. There were findings suggestive of an infectious or inflammatory process bronchiectatic change and pleural parenchymal thickening on the right which may be due to post radiation changes. She was given a nebulizer treatment, prednisone 40 mg, azithromycin 500 mg, ceftriaxone 1 g, and vancomycin 1250 mg. Blood cultures no growth to date. Sputum grew few gram positive cocci in chains and moderate gram positive cocci in pairs. Urine pneumococcal antigen positive. Patient improved with IV abx and was transitioned to oral Levofloxacin. Apnea link showed patient needs oxygen at 1 liter nasal cannula at night. Home 02 study showed patient does not require oxygen with activity or at rest. Oxygen to be delivered to home per respiratory. Patient will follow up with pulmonology outpatient. Status at Discharge Functional status at discharge: independent ambulation Overall status at discharge: patient is progressing back to baseline Time Spent with Patient Time attestation: Total time spent providing and/or coordinating discharge services: Time spent: Greater than 30 minutes Exam Const: General: comfortable and no acute distress Resp: Effort & Inspection: normal respiratory effort Auscultation: diminished lung sounds Cardio: Rate: regular rate Rhythm: regular rhythm GI: GI Palp: Yes Soft to palpation Auscultation: normal bowel sounds Skin: General skin exam: no rashes or lesions noted Extrem: General: no pedal edema Psych: Mental Status: mental status grossly normal Affect: normal affect DS: Data Data Completed and Pending Labs on day of discharge: Labs from last 24 hours 12/25/24 12/22/24 06:12 02:42 WBC 11.5 H RBC 3.65 L Hgb 11.8 L Hct 36.0 L MCV 98.6 MCH 32.3 MCHC 32.8 RDW 15.9 H Plt Count 280 MPV 9.8 Immature Gran % (Auto) 2.3 H Neut % (Auto) 78.9 H Lymph % (Auto) 13.2 L Grand % (Auto) 5.2 Eos % (Auto) 0.1 Baso % (Auto) 0.3 Lymph # (Auto) 1.52 Grand # (Auto) 0.6 Eos # (Auto) 0.0 Baso # (Auto) 0.0 Abs Immat Gran (auto) 0.27 H Absolute Neuts (auto) 9.1 H Absolute Nucleated RBC 0.000 Nucleated RBC % 0.0 PT 22.2 H INR 1.9 Sodium 135 L Potassium 4.1 Chloride 103 Carbon Dioxide 24 Anion Gap 8 BUN 20 H Creatinine 0.63 L Estim Creat Clear Calc 84 Estimated GFR > 60 Glucose 113 H Calcium 8.6 Magnesium 2.0 Total Bilirubin 0.4 AST 24 ALT 27 Alkaline Phosphatase 82 Total Protein 6.0 L Albumin 3.3 L Ur L.pneumophila Ag Not detected Urine Pneumococcal Ag Detected A Preliminary micro results at discharge 12/21/24 18:35 Blood Culture - Preliminary Blood 12/21/24 18:36 Blood Culture - Preliminary Blood Discharge Plan Discharge Attending physician on discharge: Jamari Barboza Discharging Clinician: Kinjal Spencer Anticipated Discharge Date/Time: 12/25/24 15:00 Patient Disposition: Home, Self-Care Activity: may shower and as tolerated Diet: heart healthy Discharge Instructions: * Heart healthy diet * Complete all doses of antibiotics. * Wear oxygen at 1 liter nasal cannula at night. * Report to provider if worsening shortness of breath not improved with inhalers or fever >101. * Use incentive spirometer 6 times an hour while awake. * Drink water for hydration. Thank you for entrusting [facility] with your healthcare! Patient Instructions: Antibiotic Form, Warfarin (By mouth), How to Use an Incentive Spirometer (DC), Heart Healthy Diet (DC), Using Oxygen at Home (DC), Pulse Oximetry (DC) Patient Language: Andorran Stand Alone Forms: General Discharge Information Follow-up/Referrals: Ankit Villafuerte DO [Primary Care Provider] - 1 Week James Mayen MD [Physician] - 2 Weeks Discharge Medications: New Rosie Ellipta 100-62.5-25 mcg Blister With Device 1 inh inhalation DAILYRT Qty: 60 0RF levofloxacin 750 mg tablet 750 mg PO HS Qty: 3 0RF Continued gabapentin 800 mg tablet 800 mg PO QHS loratadine [Claritin] 10 mg tablet 10 mg PO DAILY Mucinex Sinus-Max Day-Night 1.25 mg-5 mg- 10 mg-325 mg tablets, sequential 1 ea PO QHS warfarin 1 mg tablet See Rx Instructions .ROUTE .COMPLEX Qty: 90 2RF Protocol: Dose Management Condition: Saturday Dose/Route: 4.5 mg Instruction: 4.5 x 1 mg tablets Condition: Saturday Dose/Route: 4.5 mg Instruction: 4.5 x 1 mg tablets Condition: Saturday Dose/Route: 4.5 mg Instruction: 4.5 x 1 mg tablets Condition: Saturday Dose/Route: 4.5 mg Instruction: 4.5 x 1 mg tablets Condition: Dose/Route: 4.5 mg Instruction: 4.5 x 1 mg tablets Condition: Saturday Dose/Route: 4.5 mg Instruction: 4.5 x 1 mg tablets Condition: Saturday Dose/Route: 4.5 mg Instruction: 4.5 x 1 mg tablets Protocol Text: Adjustment Start Date: 09/12/23 INR Value: 2.0 INR Date: 09/12/23 Recheck Date: 09/26/23 Dose Instruction: TAKE 1 TABLET BY MOUTH EVERY DAY Patient Comments: warfarin 4.5mg po Rx Instructions: TAKE 1 TABLET BY MOUTH EVERY DAY dicyclomine 20 mg tablet See Rx Instructions .ROUTE .COMPLEX Qty: 270 1RF Dose Instruction: TAKE 1 TABLET BY MOUTH THREE TIMES A DAY Rx Instructions: TAKE 1 TABLET BY MOUTH THREE TIMES A DAY warfarin 2 mg tablet See Rx Instructions .ROUTE .COMPLEX Qty: 180 1RF Protocol: Dose Management Condition: Saturday Dose/Route: 4.5 mg Instruction: 4.5 x 1 mg tablets Condition: Saturday Dose/Route: 4.5 mg Instruction: 4.5 x 1 mg tablets Condition: Saturday Dose/Route: 4.5 mg Instruction: 4.5 x 1 mg tablets Condition: Saturday Dose/Route: 4.5 mg Instruction: 4.5 x 1 mg tablets Condition: Dose/Route: 4.5 mg Instruction: 4.5 x 1 mg tablets Condition: Saturday Dose/Route: 4.5 mg Instruction: 4.5 x 1 mg tablets Condition: Saturday Dose/Route: 4.5 mg Instruction: 4.5 x 1 mg tablets Protocol Text: Adjustment Start Date: 09/12/23 INR Value: 2.0 INR Date: 09/12/23 Recheck Date: 09/26/23 Dose Instruction: TAKE 2 TABLETS (4 MG) ORALLY ONCE DAILY Patient Comments: warfarin 4.5 mg po daily Rx Instructions: TAKE 2 TABLETS (4 MG) ORALLY ONCE DAILY ropinirole 0.25 mg tablet See Rx Instructions .ROUTE .COMPLEX Qty: 90 3RF Dose Instruction: TAKE 1 TABLET (0.25 MG) BY MOUTH AT BEDTIME Rx Instructions: TAKE 1 TABLET (0.25 MG) BY MOUTH AT BEDTIME levothyroxine 88 mcg tablet 88 mcg PO DAILY Qty: 90 1RF primidone 50 mg tablet 50 mg PO QHS Qty: 90 2RF Discontinued cefdinir 300 mg capsule 300 mg PO Q12H methylprednisolone 4 mg tablets,dose pack 4 mg PO Q12H Breztri Aerosphere 160-9-4.8 mcg/actuation HFA aerosol inhaler 2 inh inhalation BID Qty: 10.7 5RF Date of admission: 12/22/24 07:29 Primary Care Provider: Ankit Villafuerte Admitting Provider: Cayetano Servin Attending physician on admission: Cayetano Servin Condition: Improved Hospitalist MIPS Heart Failure (Exclusion) Patient has history of Heart Transplant or Left Ventricular Assistive Device?: No IF YES, STOP HERE Heart Failure (Qualifier) Patient has current or prior documentation of LVEF less than or equal to 40%, or mod/servere depressed LVSF?: No IF NO, STOP HERE
[2024-12-25 21:47] LABS: Mycoplasma IgM Antibody Titer 421 U/mL
== END 2024-12-25 15:29 | disposition home or self-care (01) | DRG 194 ==
LOC: ANHED 18:12 → ANH3MEDSUR 19:52
PROVIDERS: Physician Assistant; Admitting Provider Internal Medicine; Emergency Provider Emergency Medicine; PCP Internal Medicine; Visit Provider Nurse Practitioner Family
DX: J18.9 Pneumonia, unspecified organism (principal); J44.0 Chronic obstructive pulmonary disease with (acute) lower respiratory infection; I10 Essential (primary) hypertension; R93.89 Abnormal findings on diagnostic imaging of other specified body structures; G25.81 Restless legs syndrome; M81.0 Age-related osteoporosis without current pathological fracture; E03.9 Hypothyroidism, unspecified; Z79.01 Long term (current) use of anticoagulants; Z85.3 Personal history of malignant neoplasm of breast; Z85.41 Personal history of malignant neoplasm of cervix uteri; Z90.49 Acquired absence of other specified parts of digestive tract
CPT/HCPCS: 36415; 71046; 71275; 80048; 80053; 83735; 84439; 84443; 84480; 85025; 85027; 85610; 85730; 86738; 87040; 87070; 87205; 87449; 87637; 87641; 87899; 93005; 94640; 94667; 94762; 96365; 96366; 96367; 99285; A9270; G0378; J0456; J0696; J1956; J3370; J7030; J7512; Q9967

== ENCOUNTER 2025-02-15 10:32 | Outpatient (CLI) | payer MEDICARE, SELFPAY ==
[2025-02-15 10:53] LABS: Basophils Percent Auto 0.6 % (0.2-1.2); Eosinophils Absolute Auto 0.2 K/mm3 (0-0.3); Eosinophils Percent Auto 2.7 % (0-4.4); Hematocrit 37.3 % (37.0-47.0); Hemoglobin 12.3 g/dL (12.0-15.0); Immature Granulocyte Absolute 0.02 K/mm3 (0.00-0.031); Immature Granulocyte Percent A 0.3 % (0-0.5); Lymphocytes Absolute Auto 0.92 K/mm3 (0.9-3.2); Lymphocytes Percent Auto 14.7 % (18.3-44.2); Mean Corpuscular Hemoglobin 32.5 pg (26-34); Mean Corpuscular Volume 98.7 fl (80-100); Mean Platelet Volume 9.4 fl (7.4-10.4); Monocytes Absolute Auto 0.5 K/mm3 (0.1-0.6); Monocytes Percent Auto 7.2 % (2.6-8.5); Neutrophils Absolute Auto 4.7 K/mm3 (1.3-6.7); Neutrophils Percent Auto 74.5 % (45.5-73.1); Platelet Count Result 206 k/mm3 (150-375); Red Blood Count 3.78 M/mm3 (4.2-5.4); Red Cell Distribution Width 16.2 % (11.5-14.5); White Blood Count 6.3 K/mm3 (4.5-10.0)
--- OUTSIDE RECORDS SUMMARY | 2025-02-15 12:14 | XMS_ITS | Clinical Summary ---
Author Organization 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 Gender Identity Not on file Sexual Orientation [...] Description 02/23/2025 11:45 AM CDT Office Visit [facility] Oncology and Hematology - Jose [address] [facility] [address] [place] [address] Lj Fam MD [address] [facility] [address] [place] [address] Health Maintenance Due Date Last Done Comments Traditional Medicare (ACO) A nnual Wellness Visit 1971 FIT-DNA Q 3 years 1997 FIT/FOBT Q 1 year 1997 Flex Sig/CT Colonography Q 5 years 1997 PNEUMOCOCCAL VACCINE 50+ YEA RS (1 of 1 - PCV) 2002 ZOSTER VACCINE (1 of 2) 2002 INFLUENZA VACCINE (#1) 2024 BREAST CANCER SCREENING 07/20/2025 07/20/20, 07/20/2024, 07/20/2024, Additional history exists RSV VACCINE (60+ or ) (1 - 1-dose 75+ series) 2027 DTAP/TDAP/TD VACCINES (2 - T d or Tdap) 04/09/2032 04/09/2022 COLORECTAL SCREENING 09/13/2032 09/13/2022 Colorectal Cancer Screening 09/13/2032 OSTEOPOROSIS SCREENING Completed , 07/13/2021, 01/19/2019, Additional history exists Procedures Procedure Name Priority Date/Time Associated Diagnosis Comments COMPREHENSIVE METABOLIC PANEL Routine 02/01/2025 11:38 AM CDT MAMMO SCREENING BILAT Routine 07/20/2024 2:42 PM CDT XR DEXA BONE DENSITY AXIAL 1 OR MORE SITES Routine 07/13/2021 Osteoporosis due to aromatase inhibitor from Last 3 Months or Most Recently Relevant to Health Maintenance Results * COMPREHENSIVE METABOLIC PANEL (02/01/2025 11:38 AM CDT) Blood us Lj Fam MD CHEMISTRY ORDERABLES Final Resu lt * MAMMO SCREENING BILAT (07/20/2024 2:42 PM CDT) Anatomical Region Laterality Modality Breast Bilateral Mammography Lj Fam MD MAMMO ORDERABLES Final Result * XR DEXA BONE DENSITY AXIAL 1 OR MORE SITES (07/13/2021) Anatomical Region Laterality Modality Other Lj Fam MD DIAGNOSTIC IMAGING ORDERABLES F inal Result from Last 3 Months or Most Recently Relevant to Health Maintenance Insurance MEDICARE PART A AND B [facility] MEDICARE PART A AND B [employer] Care Teams Workers Compensation Claims Supervisor Relationship Specialty Start Date End Date Ankit Villafuerte DO [address] [facility] [address] [facility] [address] [place] [address] PCP - General Internal Medicine 07/30/24
--- OUTSIDE RECORDS SUMMARY | 2025-02-15 12:14 | XMS_ITS | Clinical Summary ---
Author Organization [facility] Address [address] [place] [address] Care Team Providers Care Pet Care Technician Name Role Phone Ankit Villafuerte DO Primary Care Provider [phone] Allergies No known active allergies Medications warfarin (COUMADIN) 5 MG tablet Take 4.5 mg by mouth daily. Active Encounters Date Type Department Care Team Description 02/08/2025 7:32 AM CDT - 02/08/2025 11:59 PM CDT Hospital Encounter [facility] [place] [address] Nicho Metzger MD Discharge Disposition: Home or Self Care (Routine Discharge) from Last 3 Months Immunizations Name Administration [...] Comments Blood Pressure 137/83 09/28/2024 5:55 PM CASEWORK MANAGER Pulse 73 09/28/2024 5:55 PM CASEWORK MANAGER Temperature 36.2 C (97.1 F) 09/28/2024 5:55 PM CASEWORK MANAGER Respiratory Rate 18 09/28/2024 5:55 PM CASEWORK MANAGER Oxygen Saturation 98% 09/28/2024 5:55 PM CASEWORK MANAGER Inhaled Oxygen Concentration - - Weight 97.1 kg (214 lb 1.1 oz) 09/28/2024 3:00 P M CASEWORK MANAGER Height 175.3 cm (5' 9 ) 09/28/2024 3:00 PM CASEWORK MANAGER Body Mass Index 31.61 09/28/2024 3:00 PM CASEWORK MANAGER Plan of Treatment Health Maintenance Due Date Last Done Comments Colorectal Cancer Screening Colonoscopy (10 Years) 1952 Hepatitis C 1970 Zoster Vaccines (1 of 2) 2002 Annual Medicare Wellness Visit 2017 Mammogram Screening 06/29/2023 06/29/2021, 06/28/2020, 06/26/2019, Additional history exists COVID-19 Vaccine ( season) 2024 01/07/2021, 12/10/2020 DTaP, Tdap and Td Vaccines (3 - Td or Tdap) 09/28/2034 09/28/2024, 04/09/2022 Pneumococcal Vaccine: 65+ Years Completed 07/13/2020, 09/04/2018 Dexa Scan (General) Completed 07/13/2021, 07/13/2021, 01/02/2017 RSV Immunization or 60+ Years Completed 11/28/2023 Meningococcal B Vaccine Aged Out No l onger eligible based on patient's age to complete this topic Meningococcal Vaccine Aged Out No fred anali eligible based on patient's age to complete this topic RSV Immunizations Under 20 Months Aged Out No longer eligible based on patient's age to complete this topic Procedures Procedure Name Priority Date/Time Associated Diagnosis Comments PATHOLOGY Routine 02/08/2025 12:00 AM CDT from Last 3 Months Results * Pathology (02/08/2025 12:00 AM CDT) PATHOLOGY [facility] Department of Laboratory Medicine [address] [place] [address] , extension [phone] Pathology Report Surgical Pathology Report Name: DAMIEN PULIDO Specimen #: [id number] Age: 5 1950 (Age: 74) Location: [facility] Sex: F Procedure Date: 02/08/2025 Hospital #: [id number] Date Received: 02/09/2025 Date Reported: 02/14/2025 Provider: NICHO METZGER MD Source: Sinus contents Clinical History: Pansinusitis. FINAL DIAGNOSIS: Sinus contents, biopsy: -Bone and sinonasal tissue with mild chronic inflammation and reactive changes, see report. Chronic rhinosinusitis report TISSUE Tissue Present: Respiratory mucosa, mucoserous glands, bone Overall degree of inflammation: Mild Eosinophil count: <10 per HPF Neutrophil infiltrate: Absent Inflammatory predominance: Lymphoplasmacytic Basement Membrane thickening: >15 um Sub-epithelial oedema: Mild Hyperplastic/papillar y change: Absent Mucosal ulceration: Absent Squamous metaplasia: Absent Fibrosis: Partial MUCIN Fungal elements: Absent, confirmed by GMS and PAS stains Charcot-Leyden crystals: Absent Eosinophil aggregates: Absent Gross Description: Received in formalin, labeled with a patient label and as sinus contents is a 1.0 x 1.0 x 0.3 cm aggregate of pink alves tissue fragments intermixed with clotted blood and fragments of bony/cartilaginous tissue. Mixer Operator Tablets tissue is submitted in cassette 1 following decalcification in immuno decal. Gross examination (when applicable), interpretation, and sign out were performed at [facility], [address] [place] [address]. All immunohistochemical and histochemical tests were developed by and performed at [facility], [address] [place] [address]. All tests reported here have not been cleared or approved by the U.S. Food and Drug Administration (FDA). This laboratory is regulated under CLIA as qualified to perform high-complexity testing. These tests are used for clinical purposes. They should not be regarded as investigational or for research. Positive and negative controls show appropriate reactivity. Electronically Signed Out HANNA NICHOLS MD [facility] 02/08/2025 02/09/2025 12: 03 PM CDT Comment:Sinus contents us Nicho Metzger MD PATHOLOGY/CYTOLOGY ORDERABL ES Final Result [facility] [address] [place] [address], [id number] from Last 3 Months Insurance [employer] MEDICARE [employer] Care Teams Pet Care Technician Relationship Specialty Start Date End Date Ankit Villafuerte DO [address] [address] PCP - General INTERNAL MEDICINE 09/28/24
--- OUTSIDE RECORDS SUMMARY | 2025-02-15 12:14 | XMS_ITS ---
Author Organization [facility] Address [address] [place] [address] Phone Care Team Providers Care Window Systems Administrator Name Role Phone Unavailable Primary Care Provider [...]
--- OUTSIDE RECORDS SUMMARY | 2025-02-15 12:14 | XMS_ITS | Encounter Summary ---
Author Organization [facility] Address [address] [place] [address] Care Team Providers Care Automatic Edger Name Role Phone Ankit Villafuerte DO Primary Care Provider [phone] Encounter Details Date Type Department Care Team (Late Contact Info) Description 2019 Chart Note [facility] Radiation Therapy [address] [place] [address] [place] [address] [place] [address] Social History Tobacco Use Types Packs/Day Years Used Date Smoking Tobacco: Never Alcohol Use Standard Drinks/Week Comments Yes 0 (1 standard drink = 0.6 oz pur e alcohol) Comments No Sex and Gender Information Value Date Recorded Sex Assigned at Not on file 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 Gender Identity Not on file Sexual Orientation Not on file documented as of this encounter Plan of Treatment Upcoming Encounters Date Type Department Care Team (Late Contact Info) Description 02/23/2025 11:45 AM CDT Office Visit [facility] Oncology and Hematology - Jose [address] [facility] [address] [place] [address] Lj Fam MD [address] [facility] [address] [place] [address] documented as of this encounter Visit Diagnoses Not on filedocumented in this encounter Care Teams Automatic Edger Relationship Specialty Start Date End Date Ankit Villafuerte DO [address] [facility] [address] [place] [address] PCP - General Internal Medicine 07/30/24 documented as of this encounter
--- OUTSIDE RECORDS SUMMARY | 2025-02-15 12:14 | XMS_ITS | Clinical Summary ---
Author Organization [facility] Address [address] [place] [address] Care Team Providers Care Shield Cleaner Name Role Phone Chris Avalos PA-C Primary Care Provide r Source Comments [facility],non-owned Affiliates and Associated Physician Practices is amultiple site organization consisting of ambulatory clinics and hospital sitesin [place], [place], [place] and [place]. This disclosure is being madepursuant to the Care Everywhere program and may not contain all information available regarding this patient. Last updated 18.[facility] Relationship Science Allergies No known active allergies Medications * [...] at bedtime 02/07/2022 Active pancrelipase (CREON 12,000) 75072-[address] units capsule Active levothyroxine (SYNTHROID) 100 MCG [...] - 2023-2 5 season) 2024 01/07/2021, 12/10/2020 DEPRESSION SCREENING 11/11/2024 INFLUENZA VACCINE (Season Ended) 2025 07/13/2020 Respiratory Syncytial Virus (RSV) Vaccine Pt: [...] complete this topic MENINGOCOCCAL (Group B) VACCINE SHARED DECISION-MAKING Aged Out No longer eligible based on patient's age to complete this topic MENINGOCOCCAL GROUPS A/C/Y/W VACCINE Aged Out No longer eligible b ased on patient's age to complete this topic Medical Devices Implanted Type Area Nutrition Helper Device Identifier Shelf Expiration Date Model / Serial / Lot Screw Implanted:Qty: 1 on 04/30/2022 by Michel Mendieta MD at [facility] Right: Wrist [employer] [id number] / / Screw 2.7mm 20mm Mldir Nonster Bone Implanted:Qty: 1 on 04/30/2022 by Michel Mendieta MD at [facility] Right: Wrist [employer] [id number] / / Plate Implanted:Qty: 1 on 04/30/2022 by Michel Mendieta MD at [facility] Right: Wrist [employer] [id number] / / Screw 2.7mm 14mm Lopro Nonster Bone Lf Implanted:Qty: 2 on 04/30/2022 by Michel Mendieta MD at [facility] Right: Wrist [employer] [id number] / / Screw Implanted:Qty: 1 on 04/30/2022 by Michel Mendieta MD at [facility] Right: Wrist [employer] [id number] / / Screw 2.7mm 20mm Crsslck Tpr Head 3 Ld Implanted:Qty: 3 on 04/30/2022 by Michel Mendieta MD at [facility] Right: Wrist [employer] [id number] / / Screw 2.7mm 22mm Lck Jesse Nonster Bone Implanted:Qty: 2 on 04/30/2022 by Michel Mendieta MD at [facility] Right: Wrist [employer] [id number] / / Explanted Type Area Nutrition Helper Device Identifier Shelf Expiration Date Model / Serial / Lot Wire K .062in 6in Fx 2 Troc Explanted:Qty: 2 on 04/30/2022 by Michel Mendieta MD at [facility] Right: Wrist [employer] [id number] / / Wire K 1.6mm Ss Fx Nonster Explanted:Qty: 3 on 04/30/2022 by Michel Mendieta MD at [facility] Right: Wrist [employer] [id number] / / Screw 2.7mm 20mm Crsslck Lopro Nonlock Explanted:Qty: 1 on 04/30/2022 by Michel Menideta MD at [facility] Right: Wrist [employer] [id number] / / Screw 2.7mm 20mm Crsslck Lopro Nonlock Explanted:Qty: 1 on 04/30/2022 by Michel Mendieta MD at [facility] Right: Wrist [employer] [id number] / / Care Teams Shield Cleaner Relationship Specialty Start Date End Date Chris Avalos PA-C [address] [facility] [address] [place] [address] PCP - General 04/25/22
--- OUTSIDE RECORDS SUMMARY | 2025-02-15 12:14 | XMS_ITS | Clinical Summary ---
Author Organization [facility] Address [address] [place] [address] Phone Care Team Providers Care Crew Leader Gluing Name Role Phone Unavailable Primary Care Provider Unavailabl e Allergies No known active allergies Medications furosemide (LASIX) 40 MG Tablet TAKE 1 TABLET BY ORAL ROUTE EVERY DAY 2 6 Active SYNTHROID 125 MCG Tablet TAKE 1 TABLET BY ORAL ROUTE EVERY DAY 2 6 Active montelukast (SINGULAIR) 10 MG Tablet Take 10 mg by mouth daily. 1 6 Active CREON [address] Particles TAKE ONE CAPSULE [...] patient's age to complete this topic Insurance [employer]
[2025-02-15 12:15] LABS: Alanine Aminotransferase 25 U/L (6-35); Albumin Level 3.8 g/dL (3.5-5.1); Alkaline Phosphatase 116 U/L (38-126); Anion Gap 7 mmol/L (4-12); Aspartate Amino Transferase 43 U/L (14-36); Bilirubin,Total 0.3 mg/dL (0.2-1.3); Blood Urea Nitrogen 20 mg/dL (7-17); Calcium 8.4 mg/dL (8.4-10.2); Carbon Dioxide 27 mmol/L (22-30); Chloride 103 mmol/L (98-107); Estimated Glomerular Filt Rate > 60; Glucose 110 mg/dL (65-110); Potassium 4.2 mmol/L (3.4-5.0); Sodium 137 mmol/L (137-145)
--- OUTSIDE RECORDS SUMMARY | 2025-02-15 12:15 | XMS_ITS | Data Portability ---
Author Organization [facility] [employer], Main Office Address [address] [place] [address] Care Team Providers Care Gear Technician Name Role Phone NICHO CHIANG Cigarette Seller [phone] [place] Primary Care Provider Assessment No assessment recorded. Plan of Treatment Reminders Order Date Submit Date Provider Last Modified By Organization Details Last Modified Time Details Appointments None recorded. Lab None recorded. Referral None recorded. Procedures None recorded. Surgeries endoscopy, nasal/sinus , w/ maxillary antrostomy & tissue removal (SURG) 2024 025 Not available 5 15:37:14 endoscopy, nasal/sinus , with frontal sinus exploration (SURG) 2024 025 Not available 5 15:37:14 endoscopy, nasal/sinus , w/ total ethmoidecto my (SURG) 2024 025 Not available 5 15:37:14 Imaging None recorded. Medication Orders None recorded. Patient TargetsNo targets recorded. Patient InstructionsNo instructions recorded. Reason for Referral None Reported. Results Created Date Observation Date Name Description Value Unit Range Abnormal Flag Note LastModifiedBy Organization Detail LastModifiedTime 11/27/1910/13/2024 CT, sinus es, w/o contr ast No observ ation record ed. [facility] [address], [place], [address], 11/30/2024 08:22:54 11/27/19 25 11/27/2024 CT, sinus es, w/o contr ast No observ ation record ed. [facility] Not Available 2024 13:23:57 Result Notes None recorded. Problems Name Problem SNOMED Code Status Onset Date Resolution Date Notes Provider Name and Address Organization Details Recorded Time Numbness and tingling sensation of skin 166106288105 Active 2017 Not Available [facility] 3 19:46:48 Wears glasses 091993154 Active 2017 Not Available [facility] 3 19:46:48 Malignant tumor of breast 529560367 Active 2017 x2 Not Available [facility] 3 19:46:48 Dyspnea 346133451 Active 2017 Not Available [facility] 3 19:46:48 Neuropathy 941086522 Active 2017 Not Available [facility] 3 19:46:48 Impairment of balance 204010318 Active 2017 Not Available [facility] 3 19:46:48 Porokerato sis 172981672 Active 2017 Not Available [facility] 3 19:46:48 Arterioscl erosis of carotid artery 2638307149059 03 Active 2017 Not Available [facility] 3 19:46:48 Seasonal allergy 016330565 Active 2017 Not Available [facility] 3 19:46:48 Staphyloco ccal infectious disease 66806831 Active 2017 on R arm Not Available [facility] 3 19:46:48 Swelling 15002532 Active 2017 Not Available [facility] 3 19:46:48 Chronic maxillary sinusitis 55957762 Active 2024 Nicho Farah MD [address], [place], [address] , [place] [facility] [employer] [facility] 5 10:48:33 Chronic ethmoidal sinusitis 62055373 Active 2024 Nicho Farah MD [address], [place], [address] , [place] [facility] [place] [facility] 5 10:48:41 Chronic frontal sinusitis 78482863 Active 2024 Nicho Farah MD [address], [address], [place], [address] , [place] [facility] 10:48:49 Chronic sinusitis 38119030 Active 2024 Shital wilkinson, [facility] [employer] [facility] 10:07:30 Problem Notes None recorded. Procedures Surgical History None recorded. Imaging Results Imaging Date Name Status LastModified by Organiz ation Details LastModified Time 10/13/2024 CT, sinuses, w/o contrast completed [facility] [address], [place], [address], 11/30/2024 08:22:54 11/27/2024 CT, sinuses, w/o contrast [...] Not Available Not Available No t Available Synthroid 100 mcg tablet active Not Available [...] completed Not Available Not Available Not Available levofloxaci n 750 mg tablet TAKE 1 TABLET BY MOUTH EVERYDAY AT BEDTIME active Not Available Not Available No t Available letrozole 2.5 mg tablet TAKE 1 TABLET BY MOUTH EVERY DAY active Not Available Not Available No t Available methylpredn isolone 4 mg tablets in a dose pack TAKE 6 TABLETS ON DAY 1 DIRECTED ON PACKAGE AND DECREASE BY 1 TAB EACH DAY FOR A TOTAL OF 6 DAYS active Not Available Not Available No t Available cefdinir 300 mg capsule TAKE 1 CAPSULE BY MOUTH EVERY 12 HOURS FOR 10 DAYS active Not Available Not Available No t Available griseofulvi n ultramicros ize 250 mg tablet [...] Available Not Available Not Available Fluzone High-Dose 7237-6054 (PF) 180 mcg/0.5 mL intramuscul ar syringe TO BE ADMINISTE RED BY PHARMACIS T FOR IMMUNIZAT ION 12/10 completed Not Available Not Available Not Available Trelegy Ellipta 100 mcg-62.5 mcg-25 mcg powder for inhalation INHALE 1 PUFF BY MOUTH DAILY active Not Available Not Available No t Available Breztri Aerosphere 160 mcg-9mcg-4. 8mcg/actuat ion HFA aerosol inhaler INHALE 2 PUFF BY MOUTH TWICE A DAY active Not Available Not Available No t Available Vitals Date Recorded Body weight Body mass index (BMI) Body height Body temperature Provider Name and Address Organization Details Last Updated DateTime 12/10/2024 05990.05 g 31.6 kg/m2 175.26 cm 98 [degF] Ailyah Lucero RN [place] [facility] [place] [facility] 12/10/2024 10:30:57 Social History Question Answer Notes LastModified by Organizat ion Details LastModified Time Tobacco Smoking Status Never Smoker Aliyah Lucero RN null, [place] [employer] 12/10/2024 10:28:26 What Is Your Level Of [...] SNOMED-CT Code Diagnosis ICD10 Code Diagnosis Note [id number] Nicho Farah MD [facility] [place] [address] [place] [address] 12/10/2024 10:19:01 12/10/2024 12:24:38 Chronic maxillary sinusitis 05899804 J32.0 Chronic et hmoidal sinusitis 71542786 J32.2 Chronic fr ontal sinusitis 44497566 J32.1 Health Concerns Section Related Observation LastModified by Organization Detai ls LastModified Time None Recorded Concern Status LastModified by Organization Details LastModified Time None Recorded Advance Directives Directive None Recorded Payers Encounter Date Sequence Insurance Name Policy Number Policy Rodriguez Covered Member ID Rodriguez Member ID Guarantor Name 12/10/2024 1 [place] Damien Pulido [id number] Damien Pulido 12/10/2024 2 [email or web address] (MEDICARE SUPPLEMENT) PLAN F Chraly Tess [id number] Damien Pulido Notes Date Note Type Note Provider Name and Address Organization Details Recorded Time 12/10/2024 text/html This patient has a 1 year history of chronic cough. She was evaluated by an receipt and report clerk who found allergies to trees. A sinus CT demonstrated pansinusitis and left septal deviation. She has been on antibiotics without improvement. Nicho Farah MD [address] [place] [address], [facility] [address], [place], [address], [facility] [employer] [facility] [employer] 12/10/2024 10:49:31 OBGyn Episode No OBEpisode recorded.
[2025-02-17 01:42] LABS: CA 15-3 6 U/mL (<32)
== END 2025-02-15 10:33 | disposition home or self-care (01) ==
LOC: ANHLAB 10:34
PROVIDERS: PCP Internal Medicine; Visit Provider Internal Medicine Hematology & Oncology
DX: R94.31 Abnormal electrocardiogram [ECG] [EKG] (principal); C50.411 Malignant neoplasm of upper-outer quadrant of right female breast; Z17.0 Estrogen receptor positive status [ER+]
CPT/HCPCS: 36415; 80053; 85025; 86300

== ENCOUNTER 2025-02-15 15:50 | Outpatient (RCR) | payer MEDICARE, SELFPAY ==
[2024-11-24 12:30] LABS: INR 2.8; Prothrombin Time 30.3 Seconds (11.1-14.7)
[2025-01-01 10:36] LABS: Prothrombin Time 23.2 Seconds (11.1-14.7)
[2025-02-01 10:49] LABS: INR 3.2; Prothrombin Time 33.4 Seconds (11.1-14.7)
[2025-02-15 16:17] LABS: INR 1.9; Prothrombin Time 22.6 Seconds (11.1-14.7)
== END 2025-02-22 23:59 | disposition home or self-care (01) ==
LOC: ANHLAB 15:50
PROVIDERS: PCP Internal Medicine; Visit Provider Internal Medicine
DX: Z51.81 Encounter for therapeutic drug level monitoring (principal); Z79.01 Long term (current) use of anticoagulants
CPT/HCPCS: 36415; 81001; 85610; 87086; 93005

== ENCOUNTER 2025-03-19 09:45 | Outpatient (CLI) | payer MEDICARE, SELFPAY ==
--- OUTSIDE RECORDS SUMMARY | 2025-03-19 10:00 | XMS_ITS | Clinical Summary ---
Author Organization [facility] Address [address] [place] [address] Phone Care Team Providers Care Wireless Communications Engineer Name Role Phone Unavailable Primary Care Provider Unavailabl e Allergies No known active allergies Medications furosemide (LASIX) 40 MG Tablet TAKE 1 TABLET BY ORAL ROUTE EVERY DAY 2 6 Active SYNTHROID 125 MCG Tablet TAKE 1 TABLET BY ORAL ROUTE EVERY DAY 2 6 Active montelukast (SINGULAIR) 10 MG Tablet Take 10 mg by mouth daily. 1 6 Active CREON [address] Particles TAKE ONE CAPSULE [...] patient's age to complete this topic Insurance [employer]
--- OUTSIDE RECORDS SUMMARY | 2025-03-19 10:00 | XMS_ITS | Clinical Summary ---
Author Organization [facility] Address [address] [place] [address] Care Team Providers Care Head Grease Maker Name Role Phone Chris Avalos PA-C Primary Care Provide r Source Comments [facility],non-owned Affiliates and Associated Physician Practices is amultiple site organization consisting of ambulatory clinics and hospital sitesin [place], [place], [place] and [place]. This disclosure is being madepursuant to the Care Everywhere program and may not contain all information available regarding this patient. Last updated 18.[facility] [employer] Allergies No known active allergies Medications * Be aware that medications may not be up to date on this document. Alwaysverify current medications with the patient. warfarin (COUMADIN) 2 MG tablet Take 5 mg by mouth once daily 2 Active rOPINIRole (REQUIP) 0.25 MG tablet Take 0.25 mg by mouth at bedtime 2 Active pancrelipase (CREON 12,000) 37840-10[address] units capsule Active levothyroxine (SYNTHROID) 100 MCG tablet Take 100 mcg by mouth at bedtime 2 Active letrozole (FEMARA) 2.5 MG tablet Take 2.5 mg by mouth once daily 2 Active albuterol-iprat ropium (DUO-NEB) 0.5-2.5 (3) MG/3ML nebulizer solution USE 1 VIAL PER NEBULIZER 4 TIMES A DAY FOR 15 DAYS 1 Active gabapentin (NEURONTIN) 800 MG tablet Take 800 mg by mouth 2 times daily 2 Active furosemide (LASIX) 40 MG tablet Take 40 mg by mouth once daily 2 Active ADVAIR HFA 230-21 MCG/ACT Inhale 1 puff by mouth 2 times daily 2 Active cyanocobalamin 250 MCG tablet Take 250 [...] NEEDED FOR SHORTNESS OF BREATH OR WHEEZING 1 Active acetaminophen (TYLENOL) 325 MG tablet Take 325 mg by mouth every 6 hours as needed Active dicyclomine (BENTYL) 20 MG tablet Take 20 mg by mouth 3 times daily Active montelukast (SINGULAIR) 10 MG tablet Take 10 mg by mouth once daily 2 Active HYDROcodone-sasha taminophen (NORCO) 5-325 MG tablet Take 1 (one) tablet by mouth every 6 hours as needed 28 tablet 2 Active Additional Information Patient not taking.Reported on 05/09/2022 Active Problems Problem Noted Date Diagnosed Date Closed fracture of right wrist, initial encounte r 04/30/2022 Post-op pain Immunizations Immunization Administration Dates Next Due TDAP (7yrs+) 04/09/2022 [...] on one occasion? 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 Gender Identity Not on file Sexual Orientation [...] 2002 SCREENING FOR DIABETES 04/25/2022 COVID-19 VACCINE ( - 2023-2 5 season) 2024 01/07/2021, 12/10/2020 [...] this topic Medical Devices Implanted Type Area Business Relations Manager Device Identifier Shelf Expiration Date Model / Serial / Lot Screw Implanted:Qty: 1 on 04/30/2022 by Michel Mendieta MD at [facility] Right: Wrist [employer] [id number] / / Screw 2.7mm 20mm Mldir Nonster Bone Implanted:Qty: 1 on 04/30/2022 by Michel Mendieta MD at [facility] Right: Wrist [employer] [id number] / / Plate Implanted:Qty: 1 on 04/30/2022 by Michel Mendieta MD at [facility] Right: Wrist [employer] [id number] / / Screw 2.7mm 14mm Lopro Nonster Bone Lf Implanted:Qty: 2 on 04/30/2022 by Michel Mendieta MD at [facility] Right: Wrist [employer] [id number] / / Screw Implanted:Qty: 1 on 04/30/2022 by Michel Mendieta MD at [facility] Right: Wrist [employer] [id number] / / Screw 2.7mm 20mm Crsslck Tpr Head 3 Ld Implanted:Qty: 3 on 04/30/2022 by Michel Mendieta MD at [facility] Right: Wrist [employer] [id number] / / Screw 2.7mm 22mm Lck Jesse Nonster Bone Implanted:Qty: 2 on 04/30/2022 by Michel Mendieta MD at [facility] Right: Wrist [employer] [id number] / / Explanted Type Area Business Relations Manager Device Identifier Shelf Expiration Date Model / Serial / Lot Wire K .062in 6in Fx 2 Troc Explanted:Qty: 2 on 04/30/2022 by Michel Mendieta MD at [facility] Right: Wrist [employer] [id number] / / Wire K 1.6mm Ss Fx Nonster Explanted:Qty: 3 on 04/30/2022 by Michel Mendieta MD at [facility] Right: Wrist [employer] [id number] / / Screw 2.7mm 20mm Crsslck Lopro Nonlock Explanted:Qty: 1 on 04/30/2022 by Michel Mendieta MD at [facility] Right: Wrist [employer] [id number] / / Screw 2.7mm 20mm Crsslck Lopro Nonlock Explanted:Qty: 1 on 04/30/2022 by Michel Mendieta MD at [facility] Right: Wrist [employer] [id number] / / Insurance MEDICARE [facility] [employer] [address] [place] [address] MEDICARE Care Teams Head Grease Maker Relationship Specialty Start Date End Date Chris Avalos PA-C [address] [place] [address] PCP - General 04/25/22
--- OUTSIDE RECORDS SUMMARY | 2025-03-19 10:00 | XMS_ITS ---
Author Organization [facility] Address [address] [place] [address] Phone Care Team Providers Care Diamond Saw Operator Name Role Phone Unavailable Primary Care [...]
--- OUTSIDE RECORDS SUMMARY | 2025-03-19 10:00 | XMS_ITS | Clinical Summary ---
Author Organization [facility] Address [address] [place] [address] Care Team Providers Care Deputy Director Of Finance Name Role Phone Ankit Villafuerte DO Primary Care Provider [phone] Allergies No known active allergies Medications warfarin (COUMADIN) 5 MG tablet Take 4.5 mg by mouth daily. Active Encounters Date Type Department Care Team Description 02/08/2025 7:32 AM CDT - 02/08/2025 11:59 PM CDT Hospital Encounter [facility] [place] [address] Mikaela Metzger MD Discharge Disposition: Home or Self Care (Routine Discharge) from Last 3 Months Immunizations Immunization Administration Dates Next Due Tdap (Boostrix) 09/28/2024 [...] Comments Blood Pressure 137/83 09/28/2024 5:55 PM PODIATRY ASSISTANT Pulse 73 09/28/2024 5:55 PM PODIATRY ASSISTANT Temperature 36.2 C (97.1 F) 09/28/2024 5:55 PM PODIATRY ASSISTANT Respiratory Rate 18 09/28/2024 5:55 PM PODIATRY ASSISTANT Oxygen Saturation 98% 09/28/2024 5:55 PM PODIATRY ASSISTANT Inhaled Oxygen Concentration - - Weight 97.1 kg (214 lb 1.1 oz) 09/28/2024 3:00 P M PODIATRY ASSISTANT Height 175.3 cm (5' 9 ) 09/28/2024 3:00 PM PODIATRY ASSISTANT Body Mass Index 31.61 09/28/2024 3:00 PM PODIATRY ASSISTANT Plan of Treatment Health Maintenance Due Date Last Done Comments Colorectal Cancer Screening Colonoscopy (10 Years) 1950 Hepatitis C 1970 Zoster Vaccines (1 of 2) 2002 Annual Medicare Wellness Visit 2017 Mammogram Screening 06/29/2023 06/29/2021, 06/28/2020, 06/26/2019, Additional history exists COVID-19 Vaccine ( season) 2024 01/07/2021, 12/10/2020 DTaP, Tdap and Td Vaccines (3 - Td or Tdap) 09/28/2034 09/28/2024, 04/09/2022 Pneumococcal Vaccine: 50+ Years Completed 07/13/2020, 09/04/2018 Dexa Scan (General) [...] * Pathology (02/08/2025 12:00 AM CDT) PATHOLOGY [facility] Department of Laboratory Medicine [address] [place] [address] , extension [phone] Pathology Report Surgical Pathology Report Name: DAMIEN PULIDO Specimen #: [id number] Age: 5 1950 (Age: 74) Location: [facility] Sex: F Procedure Date: 02/08/2025 Hospital #: [id number] Date Received: 02/09/2025 Date Reported: 02/14/2025 Provider: MIKAELA METZGER MD Source: Sinus contents Clinical History: [...] clotted blood and fragments of bony/cartilaginous tissue. Pipe And Test Supervisor tissue is submitted in cassette 1 following decalcification in immuno decal. Gross examination (when applicable), interpretation, and sign out were performed at [facility], [address] [place] [address]. All immunohistochemical and histochemical tests were developed by and performed at [facility], [address] [place] [address]. All tests reported here have not been cleared or approved by the U.S. Food and Drug Administration (FDA). This laboratory is regulated under CLIA as qualified to perform high-complexity testing. These tests are used for clinical purposes. They should not be regarded as investigational or for research. Positive and negative controls show appropriate reactivity. Electronically Signed Out HANNA NICHOLS MD [facility] 02/08/2025 02/09/2025 12: 03 PM CDT Comment:Sinus contents us Mikaela Metzger MD PATHOLOGY/CYTOLOGY ORDERABL ES Final Result [facility] [address] [place] [address], [id number] from Last 3 Months Insurance [employer] MEDICARE [employer] Care Teams Deputy Director Of Finance Relationship Specialty Start Date End Date Ankit Villafuerte DO [address] [address] PCP - General INTERNAL MEDICINE 09/28/24
--- OUTSIDE RECORDS SUMMARY | 2025-03-19 10:00 | XMS_ITS | Data Portability ---
Author Organization [facility] [employer], Main Office Address [address] [place] [address] Care Team Providers Care Water/Wastewater Engineer Name Role Phone NICHO CHIANG Escort Service Attendant [place] Primary Care Provider Assessment No [...] Abnormal Flag Note LastModifiedBy Organization Detail LastModifiedTime 02/09/2002/15/2025 PATHO LOGY SERVI CE pathserv SEE COMMEN T See separ ate patho logy repor t. Not Available [facility] (Lab) [address] [place], [address], 02/15/2025 12:29:04 11/27/19 25 10/13/2024 CT, sinus es, w/o contr ast No observ ation record ed. [facility] [address], [place], [address], 11/30/2024 08:22:54 11/27/19 25 11/27/2024 CT, sinus es, w/o contr ast No observ ation record ed. [facility] Not Available 2024 13:23:57 Result Notes None recorded. Problems Name Problem SNOMED Code Status Onset Date Resolution Date Notes Provider Name and Address Organization Details Recorded Time Numbness and tingling sensation of skin 694903928334 Active 2017 Not Available [facility] 3 19:46:48 Wears glasses 427614231 Active 2017 Not Available [facility] 3 19:46:48 Malignant tumor of breast 267758693 Active 2017 x2 Not Available [facility] 3 19:46:48 Dyspnea 107260139 Active 2017 Not Available [facility] 3 19:46:48 Neuropathy 693900268 Active 2017 Not Available [facility] 3 19:46:48 Impairment of balance 721662129 Active 2017 Not Available [facility] 3 19:46:48 Porokerato sis 351760030 Active 2017 Not Available [facility] 3 19:46:48 Arterioscl erosis of carotid artery 0425358399948 03 Active 2017 Not Available [facility] 3 19:46:48 Seasonal allergy 845561857 Active 2017 Not Available [facility] 3 19:46:48 Staphyloco ccal infectious disease 14230791 Active 2017 on R arm Not Available [facility] 3 19:46:48 Swelling 37951785 Active 2017 Not Available [facility] 3 19:46:48 Chronic maxillary sinusitis 38252447 Active 2024 Nicho Farah MD [address], [place], [address] , [facility] 5 10:48:33 Chronic ethmoidal sinusitis 05381587 Active 2024 Nicho Farah MD [address], [facility] [address], [place], [address] , [facility] 5 10:48:41 Chronic frontal sinusitis 98307440 Active 2024 Nicho Farah MD [address], [facility] [address], [place], [address] , [facility] 5 10:48:49 Chronic sinusitis 45143337 Active 2024 Shital Palacio [facility], [facility] [employer] [facility] 10:07:30 Problem Notes None recorded. Procedures Surgical History Date Name Laterality Status Provider Name and Address Organization Details Recorded Time ENDOSCOPY, NASAL/SINUS, WITH FRONTAL SINUS EXPLORATION (SURG) completed Aliyah Lucero RN [facility] 02/18/2025 12:24:26 Imaging Results Imaging Date Name Status LastModified by Organiz ation Details LastModified Time 10/13/2024 CT, sinuses, w/o contrast completed [facility] [address] [facility] [address], [place], [address], 11/30/2024 08:22:54 11/27/2024 CT, sinuses, w/o contrast [...] 1 TABLET BY MOUTH EVERYDAY AT BEDTIME 02/18 completed Not Available Not Available Not Available letrozole 2.5 mg tablet TAKE 1 TABLET BY MOUTH EVERY DAY active Not Available Not Available No t Available methylpredn isolone 4 mg tablets in a dose pack TAKE 6 TABLETS ON DAY 1 DIRECTED ON PACKAGE AND DECREASE BY 1 TAB EACH DAY FOR A TOTAL OF 6 DAYS 02/18 completed Not Available Not Available Not Available cefdinir 300 mg capsule TAKE 1 CAPSULE BY MOUTH EVERY 12 HOURS FOR 10 DAYS 02/18 completed Not Available Not Available Not Available griseofulvi n ultramicros ize 250 mg [...] Available Not Available Not Available Fluzone High-Dose (PF) 180 mcg/0.5 mL intramuscul ar syringe [...] Address Organization Details Last Updated DateTime 12/10/2024 20789.05 g 31.6 kg/m2 175.26 cm 98 [degF] Aliyah Lucero RN [facility] [employer] [facility] 12/10/2024 10:30:57 Date Recorded Body height Body temperature Body mass index (BMI) Body weight Provider Name and Address Organization Details Last Updated DateTime 02/18/2025 175.26 cm 97.6 [degF] 30.9 kg/m2 91533.24 g Aliyah Lucero RN [facility] 02/18/2025 11:11:58 Social History Question Answer Notes LastModified by Organizat ion Details LastModified Time Tobacco Smoking Status Never Smoker Aliyah Lucero RN null, [facility] [employer] [facility] 12/10/2024 10:28:26 What Is Your Level Of [...] SNOMED-CT Code Diagnosis ICD10 Code Diagnosis Note [id number] Nicho Farah MD [facility] [place] [address] [place] [address] 12/10/2024 10:19:01 12/10/2024 12:24:38 Chronic maxillary sinusitis 21906340 J32.0 Chronic et hmoidal sinusitis 10732615 J32.2 Chronic fr ontal sinusitis 64901151 J32.1 [id number] Nicho Farah MD [facility] [place] [address] [place] [address] 02/18/2025 10:54:30 02/18/2025 11:41:24 Postoperative visit [id number] Z48.89 02/08/2025 postoperat barbara from a bilateral maxillary antrostomy , ethmoidect billie, frontal sinus exploratio n with navigation . She is healing well. Advised to begin blowing her nose and resume all previous activities . Continue using the saline rinses as needed. Follow up as needed. Health Concerns Section Related Observation LastModified by Organization Detai ls LastModified Time None Recorded Concern Status LastModified by Organization Details LastModified Time None Recorded Advance Directives Directive None Recorded Payers Encounter Date Sequence Insurance Name Policy Number Policy Rodriguez Covered Member ID Rodriguez Member ID Guarantor Name 12/10/2024 1 [place] Damien Walsh [employer] [id number] Damien Klitzing 12/10/2024 2 [employer] (MEDICARE SUPPLEMENT) PLAN F Charly Tess [id number] Damien Klitzing 02/18/2025 1 [place] Damien M Klitzing [id number] Damien Klitzing 02/18/2025 2 [employer] (MEDICARE SUPPLEMENT) PLAN F Charly Klitzing [id number] Damien Klitzing Notes Date Note Type Note Provider Name and Address Organization Details Recorded Time 12/10/2024 text/html This patient has a 1 year history of chronic cough. She was evaluated by an human factors scientist who found allergies to trees. A sinus CT demonstrated pansinusitis and left septal deviation. She has been on antibiotics without improvement. Nicho Farah MD [address], [place], [address], [place] [facility] [employer] 12/10/2024 10:49:31 02/18/2025 text/html this patient presents to the office for a postoperative visit from a bilateral maxillary antrostomy, ethmoidectomy, and frontal sinus exploration with navigation that was completed on 02/08/2025. She reports use of saline rinses. She has not started blowing her nose at this time. Denies any complaints. MILI Bloom [address], [place], [address], [place] [facility] 02/18/2025 11:40:46 OBGyn Episode No OBEpisode recorded.
--- OUTSIDE RECORDS SUMMARY | 2025-03-19 10:00 | XMS_ITS | Clinical Summary ---
Author Organization [facility] Address [facility] [place] [address] Care Team Providers Care Trainman Name Role Phone Noy Ankit Stephens DO Primary Care Provider [phone] Allergies No known active allergies Medications cholecalcifero l, vitamin D3, 5,000 unit Take 5,000 Units [...] TO AFFECTED AREA 4 TIMES A DAY 9 Active rOPINIRole (REQUIP) 0.25 mg tablet TAKE 1 TABLET (0.25 MG) BY MOUTH AT BEDTIME 0 Active gabapentin (NEURONTIN) 800 mg tablet TAKE 1 TABLET BY MOUTH TWICE A DAY 0 Active warfarin (COUMADIN) 5 mg tablet Take 2.5 mg by mouth daily. Active primidone (MYSOLINE) 50 mg tablet TAKE 1/2 TABLET BY MOUTH AT BEDTIME X 1 WK, THEN INCREASE TO 1 TABLET AT BEDTIME 4 Active levothyroxine 75 mcg tablet Take 75 mcg by mouth daily in the morning. Active warfarin (COUMADIN) 1 mg tablet Take 2 mg by mouth daily. 4 Active letrozole (FEMARA) 2.5 mg tablet TAKE 1 TABLET BY MOUTH EVERY DAY 90 Tablet 3 4 Active Trelegy Ellipta 100-62.5-25 mcg Disk with Device Take 1 Puff by inhalation daily. 5 Active Pilar Motaphere 160-9-4.8 mcg/actuation HFA Aerosol Inhaler inhale 2 puffs by mouth twice a day 4 02/24/20 25 Discontinu ed(Alterna te therapy prescribed ) Active Problems Problem Noted Date Diagnosed Date Osteoporosis due to aromatase inhibitor 10/20/20 18 Screening for osteoporosis 12/21/2016 Malignant neoplasm of upper- outer quadrant of right female breast 08/27/2016 Cancer Staging:Clinical:Stage IIIB(T4, N0, M0) - Unsigned Acquired hypothyroidism 08/27/2016 Encounters Date Type Department Care Team Description 02/23/2025 11:45 AM CDT Office Visit [facility] Oncology and Hematology - [address] [place] [address] Lj Fam MD Malignant neoplasm of upper-outer quadrant of right breast in female, estrogen receptor positive (CMS/HCC) (Primary Dx); Visit for screening mammogram 02/17/2025 Orders Only [facility] Oncology and Hematology - [address] [place] [address] Lj Fam MD 02/02/2025 Orders Only [facility] Oncology and Hematology - [address] [place] [address] Lj Fam MD 12/29/2024 External Device Data [...] on file Legal Sex 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 Gender Identity Not on file Sexual Orientation Not on file Last Filed Vital Signs Vital Sign Reading Time Taken Comments Blood Pressure 136/87 02/23/2025 11:32 AM CDT Pulse 99 02/23/2025 11:32 AM CDT Temperature 36.6 C (97.8 F) 02/23/2025 11:32 AM CDT Respiratory Rate 16 02/23/2025 11:32 AM CDT Oxygen Saturation 93% 02/23/2025 11:32 AM CDT Inhaled Oxygen Concentration - - Weight 95.5 kg (210 lb 9.6 oz) 02/23/2025 11:32 AM CDT Height 175.3 cm (5' 9 ) 07/20/2022 8:43 AM CDT Body Mass Index 31.1 07/20/2022 8:43 AM CDT Plan of Treatment Upcoming Encounters Date Type Department Care Team (Late st Contact Info) Description 08/27/2025 10:30 AM CDT Office Visit [facility] Oncology and Hematology [facility] [address] [facility] [address] [place] [address] Lj Fam MD [address] [facility] [address] [place] [address] Health Maintenance Due Date Last Done Comments FIT-DNA Q 3 years 1997 FIT/FOBT Q 1 year 1997 Flex Sig/CT Colonography Q 5 years 1997 PNEUMOCOCCAL VACCINE 50+ YEA RS (1 of 1 - PCV) 2002 ZOSTER VACCINE (1 of 2) 2002 INFLUENZA VACCINE (#1) 2024 BREAST CANCER SCREENING 07/20/2025 07/20/20 24, 07/20/2024, 07/20/2024, Additional history exists OSTEOPOROSIS SCREENING 07/13/2026 , 07/13/2021, 01/19/2019, Additional history exists RSV VACCINE (60+ or ) (1 - 1-dose 75+ series) 2027 COLORECTAL SCREENING 09/13/2032 09/13/2022 Colorectal Cancer Screening 09/13/2032 DTAP/TDAP/TD VACCINES (3 - T d or Tdap) 09/28/2034 09/28/2024, 04/09/2022 Procedures Procedure Name Priority Date/Time Associated Diagnosis Comments CANCER ANTIGEN 15-3 Routine 02/15/2025 1 :27 PM CDT COMPREHENSIVE METABOLIC PANEL Routine 02/01/2025 11:38 AM CDT MAMMO SCREENING BILAT Routine 07/20/2024 2:42 PM CDT XR DEXA BONE DENSITY AXIAL 1 OR MORE SITES Routine 07/13/2021 Osteoporosis due to aromatase inhibitor from Last 3 Months or Most Recently Relevant to Health Maintenance Results * CANCER ANTIGEN 15-3 (02/15/2025 1:27 PM CDT) Blood us Lj Fam MD CHEMISTRY ORDERABLES Final Resu lt * COMPREHENSIVE METABOLIC PANEL (02/01/2025 11:38 AM CDT) Blood us Lj Fam MD CHEMISTRY ORDERABLES Final Resu lt * MAMMO SCREENING BILAT (07/20/2024 2:42 PM CDT) Anatomical Region Laterality Modality Breast Bilateral Mammography us Lj Fam MD MAMMO ORDERABLES Final Result * XR DEXA BONE DENSITY AXIAL 1 OR MORE SITES (07/13/2021) Anatomical Region Laterality Modality Other us Lj Fam MD DIAGNOSTIC IMAGING ORDERABLES F inal Result from Last 3 Months or Most Recently Relevant to Health Maintenance Insurance MEDICARE PART A AND B [employer] SUPP MEDICARE PART A AND B [employer] SUPP Care Teams Trainman Relationship Specialty Start Date End Date Ankit Villafuerte DO [address] [facility] [address] [place] [address] PCP - General Internal Medicine 07/30/24
--- OUTSIDE RECORDS SUMMARY | 2025-03-19 10:00 | XMS_ITS | Encounter Summary ---
Author Organization [facility] Address [address] [place] [address] Care Team Providers Care Ordnance Handler Name Role Phone Ankit Villafuerte DO Primary Care Provider [phone] Encounter Details Date Type Department Care Team (Late Contact Info) Description 2019 Chart Note [facility] Radiation Therapy [address] [place] [address] [place] [address] [place] [address] Social History Tobacco Use Types Packs/Day Years Used Date Smoking Tobacco: Never Alcohol Use Standard Drinks/Week Comments Yes 0 (1 standard drink = 0.6 oz pur e alcohol) Comments No Sex and Gender Information Value Date Recorded Sex Assigned at Not on file Legal Sex Female 4:26 AM GENERAL CAR 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 YARD Gender Identity Not on file Sexual Orientation Not on file documented as of this encounter Plan of Treatment Upcoming Encounters Date Type Department Care Team (Late Contact Info) Description 08/27/2025 10:30 AM CDT Office Visit [facility] Oncology and Hematology - [address] [facility] [address] [place] [address] Lj Fam MD [address] [facility] [address] [place] [address] documented as of this encounter Visit Diagnoses Not on filedocumented in this encounter Care Teams Ordnance Handler Relationship Specialty Start Date End Date Ankit Villafuerte DO [address] [facility] [address] [facility] [address] [place] [address] PCP - General Internal Medicine 07/30/24 documented as of this encounter
[2025-03-19 11:46] LABS: Add Urine Microscopic? YES; Appearance Urine Clear (Clear); Bacteria Urine None Seen /hpf; Bilirubin Urine Negative (Negative); Blood Urine Negative (Negative); Color Urine Dark Yellow (Yellow); Glucose Urine UA Negative (Negative); Ketones Urine Trace mg/dL (Negative); Leukocyte Esterase Ur 2+ LEU/UL (Negative); Nitrate Urine Negative (Negative); Non Pathogenic Casts 0-2; Protein Urine Trace mg/dL (Negative); RBC Urine 0-2 /hpf (0-2); Specific Grav Ur 1.024 (1.001-1.035); Squamous Epithelial Cell Urine None Seen /hpf (Few); Urobilinogen Urine 0.2 mg/dL (<2.0); WBC Urine 21-50 /hpf (0-3)
[2025-03-19 11:53] LABS: Urine Cotinine NEGATIVE
[2025-03-19 12:51] LABS: MRSA (PCR) NOT DETECTED (NOT DETECTE)
[2025-03-19 12:52] LABS: Hemoglobin A1C 5.8 % (<5.7)
== END 2025-03-19 09:46 | disposition home or self-care (01) ==
LOC: ANHSURGERY 09:53
PROVIDERS: PCP Internal Medicine; Visit Provider Orthopaedic Surgery
DX: Z01.818 Encounter for other preprocedural examination (principal); M17.11 Unilateral primary osteoarthritis, right knee
CPT/HCPCS: 80307; 81001; 83036; 86850; 86900; 86901; 87086; 87641

== ENCOUNTER 2025-03-29 07:57 | Outpatient (CLI) | payer MEDICARE, SELFPAY ==
--- OUTSIDE RECORDS SUMMARY | 2025-03-29 08:02 | XMS_ITS ---
Author Organization [facility] Address [address] [place] [address] Phone Care Team Providers Care Manager Of Customer Billing Name Role Phone Unavailable Primary Care [...]
--- OUTSIDE RECORDS SUMMARY | 2025-03-29 08:02 | XMS_ITS | Clinical Summary ---
Author Organization [facility] Address [address] [place] [address] Care Team Providers Care Life Insurance Specialist Name Role Phone Ankit Villafuerte DO Primary Care Provider [phone] Allergies No known active allergies Medications warfarin (COUMADIN) 5 MG tablet Take 4.5 mg by mouth daily. Active Encounters Date Type Department Care Team Description 02/08/2025 7:32 AM CDT - 02/08/2025 11:59 PM CDT Hospital Encounter [facility] [place] [address] Mikaela Metzger MD Discharge Disposition: Home or [...] Comments Blood Pressure 137/83 09/28/2024 5:55 PM SUPERVISOR CENTRAL SUPPLY Pulse 73 09/28/2024 5:55 PM SUPERVISOR CENTRAL SUPPLY Temperature 36.2 C (97.1 F) 09/28/2024 5:55 PM SUPERVISOR CENTRAL SUPPLY Respiratory Rate 18 09/28/2024 5:55 PM SUPERVISOR CENTRAL SUPPLY Oxygen Saturation 98% 09/28/2024 5:55 PM SUPERVISOR CENTRAL SUPPLY Inhaled Oxygen Concentration - - Weight 97.1 kg (214 lb 1.1 oz) 09/28/2024 3:00 P M SUPERVISOR CENTRAL SUPPLY Height 175.3 cm (5' 9 ) 09/28/2024 3:00 PM SUPERVISOR CENTRAL SUPPLY Body Mass Index 31.61 09/28/2024 3:00 PM SUPERVISOR CENTRAL SUPPLY Plan of Treatment Health Maintenance Due Date [...] * Pathology (02/08/2025 12:00 AM CDT) PATHOLOGY [facility] Department of Laboratory Medicine [address] [place] [address] , extension [phone] Pathology Report Surgical Pathology Report Name: DAMIEN PULIDO Specimen #: [id number] Age: 5 1950 (Age: 74) Location: [facility] Sex: F Procedure Date: 02/08/2025 Hospital #: [id number] Date Received: 02/09/2025 Date Reported: 02/14/2025 Provider: [...] clotted blood and fragments of bony/cartilaginous tissue. Alcohol Rubber tissue is submitted in cassette 1 following decalcification in immuno decal. Gross examination (when applicable), interpretation, and sign out were performed at [facility], [address] [place] [address]. All immunohistochemical and histochemical tests were developed by and performed at [facility], [address] [place] [address]. All tests reported here have not been cleared or approved by the U.S. Food and Drug Administration (FDA). This laboratory is regulated under CLIA as qualified to perform high-complexity testing. These tests are used for clinical purposes. They should not be regarded as investigational or for research. Positive and negative controls show appropriate reactivity. Electronically Signed Out HANNA NICHOLS MD [facility] 02/08/2025 02/09/2025 12: 03 PM CDT Comment:Sinus contents us Mikaela Metzger MD PATHOLOGY/CYTOLOGY ORDERABL ES Final Result [facility] [address] [place] [address], [id number] from Last 3 Months Insurance [employer] MEDICARE [employer]On Care Teams Life Insurance Specialist Relationship Specialty Start Date End Date Ankit Villafuerte DO [address] [address] PCP - General INTERNAL MEDICINE 09/28/24
--- OUTSIDE RECORDS SUMMARY | 2025-03-29 08:02 | XMS_ITS | Clinical Summary ---
Author Organization [facility] Address [address] [place] [address] Care Team Providers Care Seismic Survey Assistant Name Role Phone Chris Avalos PA-C Primary Care Provide r Source Comments [facility],non-owned Affiliates and Associated Physician Practices is amultiple site organization consisting of ambulatory clinics and hospital sitesin [place], [place], [place] and [place]. This disclosure is being madepursuant to the Care Everywhere program and may not contain all information available regarding this patient. Last updated 18.[facility] Kannact Allergies No known active allergies Medications * Be aware that medications may not be up to date on this document. Alwaysverify current medications with the patient. 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 Gender Identity Not on file Sexual Orientation [...] this topic Medical Devices Implanted Type Area Certified Low Vision Therapist Device Identifier Shelf Expiration Date Model / Serial / Lot Screw Implanted:Qty: 1 on 04/30/2022 by Michel Mendieta [facility] at [facility] Right: Wrist [employer] [id number] / / Screw 2.7mm 20mm Mldir Nonster Bone Implanted:Qty: 1 on 04/30/2022 by Michel Mendieta MD at [facility] Right: Wrist [employer] [id number] / / Plate Implanted:Qty: 1 on 04/30/2022 by Michel Mendieta MD at [facility] Right: Wrist [employer] [id number] / / Screw 2.7mm 14mm Lopro Nonster Bone Lf Implanted:Qty: 2 on 04/30/2022 by Michel Mendieta MD at [facility] Right: Wrist [employer] [id number] / / Screw Implanted:Qty: 1 on 04/30/2022 by Michel Mendieta MD at [facility] Right: Wrist [employer] [id number] / / Screw 2.7mm 20mm Crsslck Tpr Head 3 Ld Implanted:Qty: 3 on 04/30/2022 by Michel Mendieta MD at [facility] Right: Wrist [employer] [id number] / / Screw 2.7mm 22mm Lck Jesse Nonster Bone Implanted:Qty: 2 on 04/30/2022 by Michel Mendieta MD at [facility] Right: Wrist [employer] [id number] / / Explanted Type Area Certified Low Vision Therapist Device Identifier Shelf Expiration Date Model / Serial / Lot Wire K .062in 6in Fx 2 Troc Explanted:Qty: 2 on 04/30/2022 by Michel Mendieta MD at [facility] Right: Wrist [employer] [id number] / / Wire K 1.6mm Ss Fx Nonster Explanted:Qty: 3 on 04/30/2022 by Michel Mendieta MD at [facility] Right: Wrist [employer] [id number] / / Screw 2.7mm 20mm Crsslck Lopro Nonlock Explanted:Qty: 1 on 04/30/2022 by Michel Mendieta MD at [facility] Right: Wrist [employer] [id number] / / Screw 2.7mm 20mm Crsslck Lopro Nonlock Explanted:Qty: 1 on 04/30/2022 by Michel Mendieta MD at [facility] Right: Wrist [employer] [id number] / / Insurance MEDICARE [facility] [[email or web address]] [employer] [address] [place] [address] MEDICARE Care Teams Seismic Survey Assistant Relationship Specialty Start Date End Date Chris Avalos PA-C [address] [place] [address] PCP - General 04/25/22
--- OUTSIDE RECORDS SUMMARY | 2025-03-29 08:02 | XMS_ITS | Encounter Summary ---
Author Organization [facility] Address [address] [place] [address] Care Team Providers Care Finisher Special Stocks Name Role Phone Ankit Villafuerte DO Primary Care Provider [phone] Encounter Details Date Type Department Care Team (Late Contact Info) Description 2019 Chart Note [facility] Radiation Therapy [address] [place] [address] [place] [address] [place] [address] Social History Tobacco Use Types Packs/Day Years Used Date Smoking Tobacco: Never Alcohol Use Standard Drinks/Week Comments Yes 0 (1 standard drink = 0.6 oz pur e alcohol) Comments No Sex and Gender Information Value Date Recorded Sex Assigned at Not on file 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 Gender Identity Not on file Sexual Orientation Not on file documented as of this encounter Plan of Treatment Upcoming Encounters Date Type Department Care Team (Late Contact Info) Description 08/27/2025 10:30 AM CDT Office Visit [facility] Oncology and Hematology - Jose [address] [facility] [address] [place] [address] Lj Fam MD [address] [facility] [address] [place] [address] documented as of this encounter Visit Diagnoses Not on filedocumented in this encounter Care Teams Finisher Special Stocks Relationship Specialty Start Date End Date Ankit Villafuerte DO [address] [facility] [address] [facility] [address] [place] [address] PCP - General Internal Medicine 07/30/24 documented as of this encounter
--- OUTSIDE RECORDS SUMMARY | 2025-03-29 08:02 | XMS_ITS | Clinical Summary ---
Author Organization [facility] Address [address] [place] [address] Phone Care Team Providers Care Die Mounter Name Role Phone Unavailable Primary Care Provider Unavailabl e Allergies No known active allergies Medications furosemide (LASIX) 40 MG Tablet TAKE 1 TABLET BY ORAL ROUTE EVERY DAY 2 6 Active SYNTHROID 125 MCG Tablet TAKE 1 TABLET BY ORAL ROUTE EVERY DAY 2 6 Active montelukast (SINGULAIR) 10 MG Tablet Take 10 mg by mouth daily. 1 6 Active CREON [address] Particles TAKE ONE CAPSULE [...] patient's age to complete this topic Insurance [employer]
--- OUTSIDE RECORDS SUMMARY | 2025-03-29 08:02 | XMS_ITS | Data Portability ---
Author Organization [facility], Main Office Address [address] [place] [address] Care Team Providers Care Software Quality Engineer Name Role Phone NICHO CHIANG Knotter [place] Primary Care Provider Assessment No [...] ate patho logy repor t. Not Available [facility] (Lab) [address] [place], [address], 02/15/2025 12:29:04 11/27/19 25 10/13/2024 CT, sinus es, w/o contr ast No observ ation record ed. [facility] [address], [place], [address], 11/30/2024 08:22:54 11/27/19 25 11/27/2024 CT, sinus es, w/o contr ast No observ ation record ed. [facility] Not Available 2024 13:23:57 Result Notes None recorded. Problems Name Problem SNOMED Code Status Onset Date Resolution Date Notes Provider Name and Address Organization Details Recorded Time Numbness and tingling sensation of skin 088580150316 Active 2017 Not Available [facility] 3 19:46:48 Wears glasses 257102490 Active 2017 Not Available [facility] 3 19:46:48 Malignant tumor of breast 995028264 Active 2017 x2 Not Available [facility] 3 19:46:48 Dyspnea 304743238 Active 2017 Not Available [facility] 3 19:46:48 Neuropathy 991678367 Active 2017 Not Available [facility] 3 19:46:48 Impairment of balance 782254820 Active 2017 Not Available [facility] 3 19:46:48 Porokerato sis 524069947 Active 2017 Not Available [facility] 3 19:46:48 Arterioscl erosis of carotid artery 5023125636043 03 Active 2017 Not Available [facility] 3 19:46:48 Seasonal allergy 197123208 Active 2017 Not Available [facility] 3 19:46:48 Staphyloco ccal infectious disease 16924656 Active 2017 on R arm Not Available [facility] 3 19:46:48 Swelling 85458407 Active 2017 Not Available [facility] 3 19:46:48 Chronic maxillary sinusitis 15014836 Active 2024 Nicho Farah MD [address], [place], [address] , [facility] [employer] [facility] 5 10:48:33 Chronic ethmoidal sinusitis 55012497 Active 2024 Nicho Farah MD [address], [facility] [address], [place], [address] , [facility] [employer] [facility] 5 10:48:41 Chronic frontal sinusitis 18706653 Active 2024 Nicho Farah MD [address], [facility] [address], [place], [address] , [facility] [employer] [facility] 5 10:48:49 Chronic sinusitis 92370041 Active 2024 Shital Palacio [facility], [facility] [employer] [facility] 10:07:30 Problem Notes None recorded. Procedures Surgical History Date Name Laterality Status Provider Name and Address Organization Details Recorded Time ENDOSCOPY, NASAL/SINUS, WITH FRONTAL SINUS EXPLORATION (SURG) completed Aliyah Lucero RN [facility] [employer] 02/18/2025 12:24:26 Imaging Results Imaging Date Name Status LastModified by Organiz ation Details LastModified Time 10/13/2024 CT, sinuses, w/o contrast completed [facility] [address] [facility] [address], [place], [address], 11/30/2024 08:22:54 11/27/2024 CT, sinuses, w/o contrast [...] Address Organization Details Last Updated DateTime 12/10/2024 28927.05 g 31.6 kg/m2 175.26 cm 98 [degF] Aliyah Lucero RN [facility] 12/10/2024 10:30:57 Date Recorded Body height Body temperature Body mass index (BMI) Body weight Provider Name and Address Organization Details Last Updated DateTime 02/18/2025 175.26 cm 97.6 [degF] 30.9 kg/m2 34851.24 g Aliyah Lucero RN [facility] 02/18/2025 11:11:58 Social History None recorded. Functional Status Question Answer Note LastModified by Organization D etails LastModified Time What is your level of alcohol consumption? None Information not available 12/10/2024 Mental Status None recorded. Family History Nothing Reported Notes:NO ENT Medical History Condition Response COPD Y Gynecological HistoryNo gynecological history recorded. Obstetrics History GPAL:G 0 P 0 0 0 0 Past Encounters Encounter ID Performer Location Encounter Start Date Encounter Closed Date Diagnosis/Indication Diagnosis SNOMED-CT Code Diagnosis ICD10 Code Diagnosis Note [id number] Nicho Farah MD [facility] [address] [place] [address] 12/10/2024 10:19:01 12/10/2024 12:24:38 Chronic maxillary sinusitis 16615284 J32.0 Chronic et hmoidal sinusitis 63657843 J32.2 Chronic fr ontal sinusitis 64826628 J32.1 [id number] Nicho Farah MD [facility] [address] [place] [address] 02/18/2025 10:54:30 02/18/2025 11:41:24 Postoperative visit [id number] Z48.89 02/08/2025 postoperat barbara from a bilateral [...] Guarantor Name 12/10/2024 1 [place] Damien M Klitzing [id number] Damien Klitzing 12/10/2024 2 [facility] (MEDICARE SUPPLEMENT) PLAN F Charly Klitzing [id number] Damien Klitzing 02/18/2025 1 [place] Damien M Klitzing [id number] Damien Klitzing 02/18/2025 2 [facility] (MEDICARE SUPPLEMENT) PLAN F Charly Klitzing [id number] Damien Klitzing Notes Date Note Type Note Provider Name and Address Organization Details Recorded Time 12/10/2024 text/html This patient has a 1 year history of chronic cough. She was evaluated by an apron man who found allergies to trees. A sinus CT demonstrated pansinusitis and left septal deviation. She has been on antibiotics without improvement. Nicho Farah MD [address], [place], [address], [employer] 12/10/2024 10:49:31 02/18/2025 text/html this patient presents to the office for a postoperative visit from a bilateral maxillary antrostomy, ethmoidectomy, and frontal sinus exploration with navigation that was completed on 02/08/2025. She reports use of saline rinses. She has not started blowing her nose at this time. Denies any complaints. MILI Bloom [address], [place], [address], [facility] 02/18/2025 11:40:46 OBGyn Episode No OBEpisode recorded.
--- OUTSIDE RECORDS SUMMARY | 2025-03-29 08:02 | XMS_ITS | Clinical Summary ---
Author Organization [facility] Address [facility] [place] [address] Care Team Providers Care Issue Clerk Name Role Phone Noy Ankit Stephens DO Primary Care Provider [phone] Allergies No known active allergies Medications cholecalciferol [...] 1 Puff by inhalation daily. 5 Active Active Problems Problem Noted Date Diagnosed Date Osteoporosis due to aromatase inhibitor 10/20/20 18 Screening for osteoporosis 12/21/2016 Malignant neoplasm of upper- outer quadrant of right female breast 08/27/2016 Cancer Staging:Clinical:Stage IIIB(T4, N0, M0) - Unsigned Acquired hypothyroidism 08/27/2016 Encounters Date Type Department Care Team Description 02/23/2025 11:45 AM CDT Office Visit [facility] Oncology and Hematology [facility] [address] [place] [id number] Lj Fam MD Malignant neoplasm of upper-outer quadrant of right breast in female, estrogen receptor positive (CMS/HCC) (Primary Dx); Visit for screening mammogram 02/17/2025 Orders Only [facility] Oncology and Hematology [facility] [address] [place] [address] Lj Fam MD 02/02/2025 Orders Only [facility] Oncology and Hematology [facility] [address] [place] [address] Lj Fam MD from Last 3 Months Family History Medical [...] on file 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 [address] [place] [address] Lj Fam MD [address] [facility] [address] [place] [address] Health Maintenance Due Date Last Done Comments FIT-DNA Q 3 years 1997 FIT/FOBT Q 1 year 1997 Flex Sig/CT Colonography Q 5 years 1997 PNEUMOCOCCAL VACCINE 50+ YEA RS (1 of 1 - PCV) 2002 ZOSTER VACCINE (1 of 2) 2002 INFLUENZA VACCINE (#1) 2024 BREAST CANCER SCREENING 07/20/2025 07/20/20, 07/20/2024, 07/20/2024, Additional history exists OSTEOPOROSIS SCREENING [...] Maintenance Insurance MEDICARE PART A AND B [employer] [facility] MEDICARE PART A AND B [employer] SUPP Care Teams Issue Clerk Relationship Specialty Start Date End Date Ankit Villafuerte DO [address] [facility] [address] [place] [address] PCP - General Internal Medicine 07/30/24
--- NOTE | 2025-03-29 16:17 | WPDPFTINT ---
PFT Procedure Performed PFT Procedure Performed Spirometry with Pre/Post Bronchodilator Plethysmography (Lung Vol) Diffusing Cap (DLCO) Flow Vol Loop PFT Interpretation This is a pulmonary function test with pre and post-bronchodilator spirometry, plethysmography and diffusing capacity. The test was performed and results interpreted in accordance with the 2019 and 2005 ATS/ERS Task Force guidelines respectively using the Global Lung Function Initiative-2012 reference equations. Patient demonstrated good effort and cooperation. Reproducibility criteria were met. The quality of the pre bronchodilator spirometry maneuver was Grade A and post bronchodilator spirometry maneuver was Grade B. Findings: Spirometry: The contour the inspiratory and expiratory flow tracing are normal. The pre bronchodilator FVC is 2.40 L, 78% predicted. The pre bronchodilator FEV1 is 1.77 L, 75% predicted. The pre bronchodilator FEV1: FVC ratio 74%. The post bronchodilator FVC is 2.48 L, representing a 3% increase. The post bronchodilator FEV1 is 1.85 L, representing a 4% increase. The post bronchodilator FEV1: FVC ratio 74%. Plethysmography: The total lung capacity is 5.09 L, 92% predicted. The functional residual capacity is 2.66 L, 83% predicted. The residual volume is 2.15 L, 89% predicted. Diffusing capacity: The diffusing capacity unadjusted for hemoglobin and carboxyhemoglobin is 15.4, 72% predicted. The diffusing capacity adjusted for alveolar volume is 3.92, 96% predicted. Impression: The spirometry is normal without evidence of an obstructive abnormality. There is no significant improvement after inhaling a single dose of albuterol. The lung volumes are normal. The diffusing capacity is normal. There are no prior studies for comparison
== END 2025-03-29 07:58 | disposition home or self-care (01) ==
PROVIDERS: PCP Internal Medicine; Visit Provider Nurse Practitioner Family
DX: R06.09 Other forms of dyspnea (principal)
CPT/HCPCS: 94060; 94726; 94729

== ENCOUNTER 2025-03-30 00:49 | Day surgery (SDC) | payer MEDICARE, SELFPAY ==
--- NOTE | 2025-03-19 10:07 | PC.NURSE ---
Addendum entered by Charmaine Torres RN 03/19/25 11:25: INSTR PT TO HOLD ALL VITAMIN/SUPPLEMENTS 3 DAYS PRE-OP PER ANESTHESIA- LAST DOSE 03/26/25. SHE RELAYS UNDERSTANDING. Original Note: Report to the Outpatient Waiting Room, entrance under the green pavilion located off [facility], at time __10:00am____ on date ___03/30/25____. Planned Procedure Time: _12:00pm .? Time changes happen often and if your time is changed the preop area will call you the afternoon before. - You and your visitor will be asked to self-screen and do not enter if you have any COVID symptoms. Please call surgeon if you need to reschedule. - A mask is optional within the hospital at this time. Patients may have clear liquids (water, carbonated beverages, clear teas, apple juice) until 3 hours prior to surgery (9:00am) with a maximum of 20 ounces. - No food from midnight until time of surgery and no smoking, or chewing tobacco (or any form of nicotine). No chewing gum, candy or mints. Take only the following medications with a SIP of water on the morning of surgery: ____TRELEGY ELLIPTA INHALER, LEVOTHYROXINE, GABAPENTIN. ALBUTEROL INHALER NEEDED. DO NOT STOP ANY OF YOUR OTHER PRESCRIPTION MEDICATIONS PRIOR TO SURGERY EXCEPT THE FOLLOWING Hold all vitamins and supplements for 3 days per anesthesiologist.- LAST DOSE Medications to discontinue per physician __HOLD COUMADIN 4 DAYS PRE-OP PER DR KHAN & DR RIVER Date to take last dose____03/25/25 Please no make-up, nail azeri, hairspray, perfume, deodorant, or body powder the day of surgery.? No jewelry (including any body piercings) or valuables the day of surgery, leave them at home.? Please take a shower or bath the night before, or the morning of, surgery with an antibacterial soap.? Wear comfortable, loose fitting clothing.? Children are encouraged to wear pajamas. - Jewelry must be removed prior to entering the operating room.? Rings and piercings that are not removed may be cut off. - The hospital will not accept responsibility for valuables.? - Please leave all valuables, including medications, at home the day of surgery. If you are going home after surgery, a licensed company truck driver must drive you home.? - NO public transportation without another adult if you receive anesthesia. - We recommend that an adult stay with you for 24 hours following discharge. - We also recommend that you do not drive, make important decision, drink alcoholic beverages, or take any drugs that were not prescribed by your health care provider for at least 24 hours after your discharge time. For Pediatric surgeries, we recommend two adults accompany the child home. Follow any additional instructions given to you from your surgeon. Telephone instructions given to ____PATIENT and asked if any additional questions and then verbalized understanding. Patient advised to call surgeon office or pre surgery nurse liaison [phone] if any additional questions.
[2025-03-19 10:13] VITALS: BMI 33.0
[2025-03-19 10:30] VITALS: BP 111/69; PULSE 95; RESP 16; TEMP 36.6; O2SAT 94
[2025-03-30] VITALS (14 sets, daily range): BP systolic 120–165; BP diastolic 69–98; PULSE 96–110; RESP 13–22; TEMP 36.1–36.4; O2SAT 92–100; BMI 32.1; BMI 33.8
--- NOTE | ~2025-03-30 | XR_ITS ---
[id number] Ordering provider: Bryson Cintron MD History: . POST-OP RIGHT TKA . Comparison: None. FINDINGS: BONES: No acute fracture or dislocation. JOINT SPACES: Total knee arthroplasty. SOFT TISSUES: Postoperative changes in the skin and soft tissues. IMPRESSION: No acute osseous abnormality right knee. Total knee arthroplasty. Postoperative changes Reviewed, dictated and finalized at location A.
--- OUTSIDE RECORDS SUMMARY | 2025-03-30 00:52 | XMS_ITS ---
Author Organization [facility] Address [address] [place] [address] Phone Care Team Providers Care Rabbit Breeder Name Role Phone Unavailable Primary Care Provider [...]
--- OUTSIDE RECORDS SUMMARY | 2025-03-30 00:52 | XMS_ITS | Encounter Summary ---
Author Organization [facility] Address [address] [place] [address] Care Team Providers Care Egg Tester Name Role Phone Ankit Villafuerte DO Primary Care Provider [phone] Encounter Details Date Type Department Care Team (Late Contact Info) Description 2019 Chart Note [facility] Radiation Therapy [address] [place] [address] [place] [address] [place] [address] Social History Tobacco Use Types Packs/Day Years Used Date Smoking Tobacco: Never Alcohol Use Standard Drinks/Week Comments Yes 0 (1 standard drink = 0.6 oz pur e alcohol) Comments No Sex and Gender Information Value Date Recorded Sex Assigned at Not on file 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 [address] [place] [address] Lj Fam MD [address] [facility] [address] [place] [address] documented as of this encounter Visit Diagnoses Not on filedocumented in this encounter Care Teams Egg Tester Relationship Specialty Start Date End Date Ankit Villafuerte DO [address] [facility] [address] [facility] [address] [place] [address] PCP - General Internal Medicine 07/30/24 documented as of this encounter
--- OUTSIDE RECORDS SUMMARY | 2025-03-30 00:52 | XMS_ITS | Clinical Summary ---
Author Organization [facility] Address [facility] [place] [address] Care Team Providers Care Olive Knocker Name Role Phone Noy Ankit Stephens DO Primary Care Provider [phone] Allergies No known active allergies Medications cholecalciferol [...] Description 02/23/2025 11:45 AM CDT Office Visit [facility] Oncology and Hematology [facility] [address] [place] [address] Lj Fam MD Malignant neoplasm of upper-outer quadrant of right breast in female, estrogen receptor positive (CMS/HCC) (Primary Dx); Visit for screening mammogram 02/17/2025 Orders Only [facility] Oncology and Hematology [facility] [address] [place] [address] Lj Fam MD 02/02/2025 Orders Only [facility] Oncology and Hematology [facility] [address] [place] [address] Lj Fam MD from Last 3 Months [...] on file 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 Gender Identity Not on file Sexual Orientation [...] Description 08/27/2025 10:30 AM CDT Office Visit [facility] Oncology and Hematology - Jose [address] [facility] [address] [place] [address] Lj Fam MD [address] [facility] [address] [place] [address] Health Maintenance Due Date Last [...] Maintenance Insurance MEDICARE PART A AND B [employer] [facility] MEDICARE PART A AND B [employer] SUPP Care Teams Olive Knocker Relationship Specialty Start Date End Date Ankit Villafuerte DO [address] [facility] [address] [place] [address] PCP - General Internal Medicine 07/30/24
--- OUTSIDE RECORDS SUMMARY | 2025-03-30 00:52 | XMS_ITS | Clinical Summary ---
Author Organization [facility] Address [address] [place] [address] Phone Care Team Providers Care Office Nurse Practitioner Name Role Phone Unavailable Primary Care Provider Unavailabl e Allergies No known active allergies Medications furosemide (LASIX) 40 MG Tablet TAKE 1 TABLET BY ORAL ROUTE EVERY DAY 2 6 Active SYNTHROID 125 MCG Tablet TAKE 1 TABLET BY ORAL ROUTE EVERY DAY 2 6 Active montelukast (SINGULAIR) 10 MG Tablet Take 10 mg by mouth daily. 1 6 Active CREON [address] Particles TAKE ONE CAPSULE [...] patient's age to complete this topic Insurance [employer]
--- OUTSIDE RECORDS SUMMARY | 2025-03-30 00:52 | XMS_ITS | Clinical Summary ---
Author Organization [facility] Address [address] [place] [address] Care Team Providers Care X Ray Developing Machine Operator Name Role Phone Chris Avalos PA-C Primary Care Provide r Source Comments [facility],non-owned Affiliates and Associated Physician Practices is amultiple site organization consisting of ambulatory clinics and hospital sitesin [place], [place], [place] and [place]. This disclosure is being madepursuant to the Care Everywhere program and may not contain all information available regarding this patient. Last updated 18.[facility] [employer] Allergies No known active allergies Medications * Be aware that medications may not be up to date on this document. Alwaysverify current medications with the patient. 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 Gender Identity Not on file Sexual Orientation [...] this topic Medical Devices Implanted Type Area Vp Foundation Device Identifier Shelf Expiration Date Model / Serial / Lot Screw Implanted:Qty: 1 on 04/30/2022 by Michel Mendieta MD at [facility] Right: Wrist [employer] [id number] / / Screw 2.7mm 20mm Mldir Nonster Bone Implanted:Qty: 1 on 04/30/2022 by Michel Mendieta MD at [facility] Right: Wrist [employer] [id number] / / Plate Implanted:Qty: 1 on 04/30/2022 by Michel Mendieta MD at [facility] Right: Wrist [employer] [id number] / / Screw 2.7mm 14mm Lopro Nonster Bone Lf Implanted:Qty: 2 on 04/30/2022 by Michel Mendieta MD at [facility] Right: Wrist [employer] [id number] / / Screw Implanted:Qty: 1 on 04/30/2022 by Michel Mendieta MD at [facility] Right: Wrist [employer] [id number] / / Screw 2.7mm 20mm Crsslck Tpr Head 3 Ld Implanted:Qty: 3 on 04/30/2022 by Michel Mendieta MD at [facility] Right: Wrist [employer] [id number] / / Screw 2.7mm 22mm Lck Jesse Nonster Bone Implanted:Qty: 2 on 04/30/2022 by Michel Mendieta MD at [facility] Right: Wrist [employer] [id number] / / Explanted Type Area Vp Foundation Device Identifier Shelf Expiration Date Model / Serial / Lot Wire K .062in 6in Fx 2 Troc Explanted:Qty: 2 on 04/30/2022 by Michel Mendieta MD at [facility] Right: Wrist [employer] [id number] / / Wire K 1.6mm Ss Fx Nonster Explanted:Qty: 3 on 04/30/2022 by Michel Mendieta MD at [facility] Right: Wrist [employer] [id number] / / Screw 2.7mm 20mm Crsslck Lopro Nonlock Explanted:Qty: 1 on 04/30/2022 by Michel Mendieta MD at [facility] Right: Wrist [employer] [id number] / / Screw 2.7mm 20mm Crsslck Lopro Nonlock Explanted:Qty: 1 on 04/30/2022 by Michel Mendieta MD at [facility] Right: Wrist [employer] [id number] / / Insurance MEDICARE [facility] [employer] [address] [place] [address] MEDICARE Care Teams X Ray Developing Machine Operator Relationship Specialty Start Date End Date Chris Avalos PA-C [address] [place] [address] PCP - General 04/25/22
--- OUTSIDE RECORDS SUMMARY | 2025-03-30 00:52 | XMS_ITS | Clinical Summary ---
Author Organization [facility] Address [address] [place] [id number] Care Team Providers Care Medic Technician Name Role Phone Ankit Villafuerte DO Primary Care Provider Allergies No known active allergies Medications warfarin (COUMADIN) 5 MG tablet Take 4.5 mg by mouth daily. Active Encounters Date Type Department Care Team Description 02/08/2025 7:32 AM CDT - 02/08/2025 11:59 PM CDT Hospital Encounter [facility] [place] [address] Mikaela Metzger MD Discharge Disposition: Home or [...] Comments Blood Pressure 137/83 09/28/2024 5:55 PM HAND MEAT SALTER Pulse 73 09/28/2024 5:55 PM HAND MEAT SALTER Temperature 36.2 C (97.1 F) 09/28/2024 5:55 PM HAND MEAT SALTER Respiratory Rate 18 09/28/2024 5:55 PM HAND MEAT SALTER Oxygen Saturation 98% 09/28/2024 5:55 PM HAND MEAT SALTER Inhaled Oxygen Concentration - - Weight 97.1 kg (214 lb 1.1 oz) 09/28/2024 3:00 P M HAND MEAT SALTER Height 175.3 cm (5' 9 ) 09/28/2024 3:00 PM HAND MEAT SALTER Body Mass Index 31.61 09/28/2024 3:00 PM HAND MEAT SALTER Plan of Treatment Health Maintenance Due Date [...] * Pathology (02/08/2025 12:00 AM CDT) PATHOLOGY [facility] Department of Laboratory Medicine [address] [place] [address] , extension [phone] Pathology Report Surgical Pathology Report Name: DAMIEN PULIDO Specimen #: [id number] Age: 5 1950 (Age: 74) Location: [facility] Sex: F Procedure Date: 02/08/2025 Hospital #: [id number] Date Received: 02/09/2025 Date Reported: 02/14/2025 Provider: [...] clotted blood and fragments of bony/cartilaginous tissue. Metal Casting Trades Worker tissue is submitted in cassette 1 following decalcification in immuno decal. Gross examination (when applicable), interpretation, and sign out were performed at [facility], [address] [place] [address]. All immunohistochemical and histochemical tests were developed by and performed at [facility], [address] [place] [address]. All tests reported here have not been cleared or approved by the U.S. Food and Drug Administration (FDA). This laboratory is regulated under CLIA as qualified to perform high-complexity testing. These tests are used for clinical purposes. They should not be regarded as investigational or for research. Positive and negative controls show appropriate reactivity. Electronically Signed Out HANNA NICHOLS MD [facility] 02/08/2025 02/09/2025 12: 03 PM CDT Comment:Sinus contents us Mikaela Metzger MD PATHOLOGY/CYTOLOGY ORDERABL ES Final Result [facility] [address] [place] [address], [phone] from Last 3 Months Insurance [employer] MEDICARE [employer] Care Teams Medic Technician Relationship Specialty Start Date End Date Ankit Villafuerte DO [address] [address] PCP - General INTERNAL MEDICINE 09/28/24
[2025-03-30] MEDS: ACETAMINOPHEN 500 MG TABLET 1000 MG PO (10:45)
[2025-03-30] MEDS: LACTATED RINGERS 1,000 ML 30 ML IV CONT ×2 (10:50→15:11)
[2025-03-30 11:07] LABS: INR 1.4
[2025-03-30 11:08] LABS: Partial Thromboplastin Time 29.3 Seconds (22.3-36.8)
[2025-03-30] MEDS: TRANEXAMIC ACID 1,000MG/ISO100 1,000 MG/100 ML BAG 200 MG IVPB (11:28)
--- NOTE | 2025-03-30 11:38 | WPDHPUPDATE1 ---
History and Physical Update Update Date/Time: 03/30/25 11:38 History and Physical has been reviewed, including an updated exam of the patient. There are NO changes in the patient's condition. Risks, benefits, and alternatives have been discussed and questions answered. Patient agrees to proceed with procedure.
--- NOTE | 2025-03-30 12:16 | WPDANESEPPF ---
Anes - Initial Pre Proc Eval Procedure: Operation Date: 03/30/25 12:00 Proposed Procedures p Right Total Knee Arthroplasty - Bryson Cintron MD Date/Time: 03/30/25 12:16 Surgeon: Bryson Cintron MD Pre Op Diagnosis: right knee DJD Patient Data Age: 75 Gender: F Height: 1.71 m Weight: 93.6 kg Last Vital Signs Temp 97.3 F L 03/30/25 10:30 Pulse 104 H 03/30/25 10:30 Resp 16 03/30/25 10:30 BP 120/72 03/30/25 10:30 Pulse Ox 98 03/30/25 10:30 O2 Del Method Room Air 03/30/25 10:30 Allergies Allergy/AdvReac Type Severity Reaction Status Date / Time No Known Allergies Allergy Verified 03/22/25 09:17 Home Medications ?Medication ?Instructions ?Recorded ?Confirmed ?Type gabapentin 800 mg tablet 800 mg PO BID 05/20/23 03/30/25 History loratadine 10 mg tablet (Claritin) 10 mg PO DAILY 11/25/23 03/30/25 History ropinirole 0.25 mg tablet See Rx Instructions .Route 10/20/24 03/30/25 Rx .COMPLEX #90 tabs primidone 50 mg tablet 50 mg PO QHS #90 tabs 11/09/24 03/30/25 Rx fluticasone fur. 100 mcg-umeclid 1 inh inhalation DAILYRT #60 ea 01/07/25 03/30/25 Rx 62.5 mcg-vilant 25 mcg inhalat.powder (Trelegy Ellipta) dicyclomine 20 mg tablet See Rx Instructions .Route 01/13/25 03/30/25 Rx .COMPLEX #270 tabs albuterol sulfate 90 mcg/actuation 2 inh inhalation Q4-6H PRN 03/19/25 03/22/25 History breath activated powder inhaler shortness of breath or wheezing ascorbic acid (vitamin C) 1,000 mg 1 g PO DAILY 03/19/25 03/30/25 History capsule biotin 10,000 mcg capsule (Rashad 10,000 mcg PO DAILY 03/19/25 03/30/25 History Biotin) calcium 600 mg capsule 600 mg PO DAILY 03/19/25 03/22/25 History chlorhexidine gluconate 4 % 1 applic topical DAILY #237 mL 03/19/25 03/30/25 Rx topical liquid (Hibiclens) geriatric multivitamin-min 1 tablet PO DAILY 03/19/25 03/30/25 History letrozole 2.5 mg tablet 2.5 mg PO QAM 03/19/25 03/30/25 History levothyroxine 75 mcg tablet 75 mcg PO QAM 03/19/25 03/30/25 History warfarin 1 mg tablet 0.5 mg PO HS 03/19/25 03/30/25 History guaifenesin 1,200 mg tablet, 1,200 mg PO BID 03/30/25 03/30/25 History extended release 12 hr (Mucinex) warfarin 2 mg tablet See Rx Instructions .Route .COMPLEX 03/30/25 03/30/25 History Laboratory Tests 03/30/25 10:34 PT 18.0 H Seconds (11.1-14.7) INR 1.4 APTT 29.3 Seconds (22.3-36.8) Patient hx anesthesia problems: none Family hx anesthesia problems: none Results Review: All pre-operative results and documents have been reviewed as part of the pre-operative evaluation. 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 status post mastectomy and neoadjuvant chemotherapy, radiation, and hormone therapy Surgical History Surgical History ) History of open reduction and internal fixation (ORIF) procedure repair right wrist fracture History of arthroscopy of both knees History of cholecystectomy History of appendectomy History of right mastectomy (11/2016) Family History Family History ) Father Family history of diabetes mellitus in first degree relative Family history of congestive heart failure Mother Family history of malignant neoplasm of breast in first degree relative Other Family history of malignant neoplasm Social History Social History ) Social History: Surrogate medical decision maker: Charly Pulido, spouse. Code status: FULL CODE. Smoking status: Never smoker Second hand tobacco smoke exposure: No Alcohol intake: never Alcohol use details: Social alcohol use in the past, non since 2013. Substance use: never Substance use type: does not use Do You Feel Safe in your Home?: Yes Lack of Transportation: No Lack of Food: Never True Current Housing: I Have Housing Concerned About Future Housing: No Difficulty Paying Gas/Electric Bills: No Difficulty Paying for Meds: No Currently Unemployed: No Education: Associate Degree Difficulty w/ Childcare or Family Care: No Living arrangements: with family Additional living arrangements comments: HUSB Spiritual care concerns: No Anes - Eval Final PreProcedure Day of Procedure 03/30/25 12:16 Patient weight: obese Heart: regular rate and rhythm Lungs: clear to auscultation Airway: Mallampati scale class II Neurological: alert and oriented Last oral intake: >/= 8 hours ASA classification: III Emergent: no Anesthetic plan: proceed Anesthesia type and monitoring: general LMA and standard monitoring Results Review: All pre-operative results and documents have been reviewed as part of the pre-operative evaluation. Informed Consent: The patient's anesthetic plan and its attendant risks and benefits were discussed with the patient/family/POA. Questions were solicited and answers provided to the satisfaction of the patient/family/POA.
[2025-03-30] MEDS: GENTAMICIN BONE CEMENT REFOBACIN 1 EACH TOPICAL (13:57)
[2025-03-30] MEDS: TRANEXAMIC ACID 1,000 MG/10 ML AMPUL 1000 MG IV PUSH (14:17)
[2025-03-30] MEDS: fentaNYL CITRATE INJ (*CRX) 100 MCG/2 ML VIAL 25 MCG IV PUSH ×8 (15:30→16:26)
--- NOTE | 2025-03-30 15:35 | W.PM.PROC2 ---
Procedure Note - Detailed Date of Procedure 03/30/25 Pre-op Diagnosis right knee DJD Post-op Diagnosis Same Procedure Performed R TKA Surgeon Bryson Cintron MD Anesthesia General Description of Procedure THE RIGHT KNEE WAS PREPPED AND DRAPED IN THE STERILE FASHION. A MIDLINE SKIN INCISION WAS MADE. A MEDIAL PARAPATELLAR ARTHROTOMY WAS MADE. THE PATELLA WAS EVERTED. THERE WAS TRICOMPARTMENT DJD. THERE WAS MINIMAL PATELLA DJD. AN INTRAMEDULLARY JARRET WAS PLACED IN THE FEMUR. A DISTAL FEMORAL CUT WAS MADE IN 5 DEGREES OF VALGUS REMOVING APPROXIMATELY 9 MM OF BONE FROM THE DISTAL FEMUR. THE FEMUR WAS SIZED TO 65. A 65 FEMORAL CUTTING BLOCK WAS PLACED IN 3 DEGREES OF EXTERNAL ROTATION AND IN ALIGNMENT WITH ALEXY'S LINE AND THE TRANSEPICONDYLAR AXIS. ANTERIOR POSTERIOR AND CHAMFER CUTS WERE MADE. THE CUTS WERE EXCELLENT. NEXT AN INTRAMEDULLARY CUTTING GUIDE WAS PLACED IN THE TIBIA. A TRANS TIBIAL CUT WAS MADE ALONG THE LONG AXIS OF THE TIBIA. APPROXIMATELY 10 MM OF BONE WAS REMOVED FROM THE HIGH SIDE OF THE TIBIA. THE TIBIA WAS THEN PLANED TO A SMOOTH SURFACE. POSTERIOR FEMORAL OSTEOPHYTES WERE REMOVED FROM THE FEMORAL CONDYLES. A 71 TIBIAL TRIAL WAS PLACED IN ALIGNMENT WITH THE 1/3 MEDIAL ASPECT OF THE TIBIAL TUBERCLE. THEN A 65 FEMORAL TRIAL COMPONENT WAS PLACED. BOTH HAD EXCELLENT FITS. EVENTUALLY AN 11 MM POLYETHYLENE TRIAL COMPONENT WAS PLACED. THE KNEE WAS TAKEN THROUGH A RANGE OF MOTION. THE KNEE CAME OUT TO FULL EXTENSION. THERE WAS NO ABNORMAL TILT TO THE PATELLA. THERE WAS GOOD A/P AND VARUS/VALGUS STABILITY. THERE WAS NO EXCESSIVE ROLL BACK WITH FLEXION. THE TRIAL COMPONENTS WERE REMOVED. THEN A 65 FEMORAL COMPONENT AND 71 TIBIAL COMPONENT WITH AN 11 POLYETHYLENE COMPONENT WERE CEMENTED INTO PLACE. ONCE THE CEMENT WAS HARD THE KNEE WAS TAKEN THROUGH A ROM AGAIN AND FOUND TO BE STABLE WITH NO PATELLA TILT NO EXCESSIVE ROLL BACK WITH FLEXION AND GOOD STABILITY WITH COMPLETE AND FULL EXTENSION. THE KNEE WAS IRRIGATED WITH STERILE BETADINE AND WATER FOR ABOUT 3 MINUTES. THE BLEEDERS WERE CAUTERIZED. THE ARTHROTOMY WAS REPAIRED WITH NUMBER 1 VICRYL AND 2 QUIL. THE SUB CUTANEOUS LAYER WITH 2-0 VICRYL AND THE SKIN WITH JOSE. THE WOUND WAS WASHED AND A STERILE DRESSING WAS APPLIED. PATIENT WAS EXTUBATED. Estimated Blood Loss -150.0 Pathology None sent Complications No immediate complications Condition Stable Disposition PACU
--- NOTE | 2025-03-30 15:55 | WPDANESPNB ---
Anes - Peripheral Nerve Block Date/Time: 03/30/25 15:55 I have discussed with the patient/family/POA the placement of a peripheral nerve block for post-operative pain management, including associated risks, benefits, complications, and side effects. Alternative methods of post-operative analgesia were detailed. Questions were solicited and answers provided to the satisfaction of the patient/family/POA. Time-Out: A pre-procedural Time-Out was completed immediately before starting the procedure and confirmed: Patient Identification, Site, Procedure, Patient Position and the Availability of Requisite Equipment. Clinical Indications: Acute post-operative pain management requested by the operative surgeon. Nerve Block Insertion Note Anes-nerve block: adductor canal right Patient position: supine Skin prep: chlorhexidine Needle: 22 gauge, stimulating, insulated echogenic needle. Needle length: 80 mm Technique: ultrasound Injectate: bupivacaine 0.5% with epi 5 mcg/ml (30cc - no epi) Observations: tolerated well Complications: none Procedure start time:: 154 Procedure end time:: 1546
--- NOTE | 2025-03-30 17:10 | ADMGEN ---
This patient, Damien Pulido, was admitted to [facility] Room 301-01. Patient/family oriented to hospital policies and general routines including ID bracelet, bed and alarms, visiting hours, pain management, procedures, bathroom and other care routines, personal items, smoking policy, room service/diet, and visiting hours. Information on how to activate the Rapid Response Team has been discussed. Patient/Family are encouraged to report perceived risks to care and to ask questions if they do not understand what they are told or what they should do.
[2025-03-30] MEDS: CELECOXIB 200 MG CAPSULE PO (18:22)
[2025-03-30] MEDS: GABAPENTIN 400 MG CAPSULE 800 MG PO (18:23)
[2025-03-30] MEDS: oxyCODONE/ACETAMINOPHEN (*CRX) 5-325 MG TABLET 1 TABLET PO (18:23)
[2025-03-30] MEDS: SENNA/DOCUSATE SODIUM TABLET 2 TAB PO (18:23)
--- NOTE | 2025-03-30 18:49 | PCCCNOTE ---
Called to the ED at 1745 to talk to pt. daughter regarding pt not wanting to go back to [facility]. Pt was discharged yesterday from [facility] to [facility] and sent to the ED this AM because pt called her daughter upset and not wanting to be there. The daughter refuses to have her go back to that facility. I spoke with Coty with [facility] regarding [facility], but pt insurance is out of network in [place]. The pt and her daughter would like to go to [facility], pt was there ~ 6mts ago. I spoke with Linda at [facility], she will need a new auth prior to being able to come there. I faxed the information to [facility] and I spoke with the daughter about keeping in contact with Antonella from [facility] tomorrow. Pt is unable to be admitted for placement since she has placement, but family chooses not to use it. Pt. is going back to her residence with her laboratory animal caretaker until they can get her placed.
[2025-03-30] MEDS: rOPINIRole HCL 0.25 MG TABLET BY MOUTH (21:17)
[2025-03-30] MEDS: PRIMIDONE 50 MG TABLET PO (21:17)
[2025-03-30] MEDS: FAMOTIDINE 20 MG TABLET PO (21:17)
[2025-03-30] MEDS: ceFAZolin 2 GM/D5W 50 ML 2 GM/50 ML BAG IVPB (21:18)
[2025-03-30] MEDS: oxyCODONE/ACETAMINOPHEN (*CRX) 10-325 MG TABLET 1 TAB PO (22:57)
[2025-03-31 01:02] VITALS: BP 135/72; PULSE 94; RESP 18; TEMP 35.9; O2SAT 94
[2025-03-31] MEDS: ceFAZolin 2 GM/D5W 50 ML 2 GM/50 ML BAG IVPB ×2 (05:00→11:01)
[2025-03-31] MEDS: LEVOTHYROXINE SODIUM 75 MCG TABLET PO (05:27)
[2025-03-31 05:44] LABS: Basophils Percent Auto 0.1 % (0.2-1.2); Hematocrit 33.3 % (37.0-47.0); Hemoglobin 10.5 g/dL (12.0-15.0); Immature Granulocyte Absolute 0.08 K/mm3 (0.00-0.031); Immature Granulocyte Percent A 0.7 % (0-0.5); Lymphocytes Absolute Auto 0.67 K/mm3 (0.9-3.2); Lymphocytes Percent Auto 5.5 % (18.3-44.2); Mean Corpuscular HGB Conc 31.5 g/dl (32-36); Mean Corpuscular Hemoglobin 31.9 pg (26-34); Mean Corpuscular Volume 101.2 fl (80-100); Mean Platelet Volume 9.4 fl (7.4-10.4); Monocytes Absolute Auto 0.8 K/mm3 (0.1-0.6); Monocytes Percent Auto 6.4 % (2.6-8.5); Neutrophils Absolute Auto 10.6 K/mm3 (1.3-6.7); Neutrophils Percent Auto 87.3 % (45.5-73.1); Platelet Count Result 218 k/mm3 (150-375); Red Blood Count 3.29 M/mm3 (4.2-5.4); Red Cell Distribution Width 16.7 % (11.5-14.5); White Blood Count 12.2 K/mm3 (4.5-10.0)
[2025-03-31 05:55] LABS: Anion Gap 6 mmol/L (4-12); Blood Urea Nitrogen 21 mg/dL (7-17); Calcium 7.9 mg/dL (8.4-10.2); Carbon Dioxide 24 mmol/L (22-30); Chloride 108 mmol/L (98-107); Estimated CRCL calculation 58 ml/min; Estimated Glomerular Filt Rate 60; Glucose 134 mg/dL (65-110); INR 1.5; Prothrombin Time 18.3 Seconds (11.1-14.7); Sodium 138 mmol/L (137-145)
[2025-03-31 06:08] VITALS: BP 127/65; PULSE 90; RESP 18; TEMP 35.8; O2SAT 97
[2025-03-31 08:00] VITALS: BP 119/74; PULSE 94; RESP 14; TEMP 36.4; O2SAT 99
[2025-03-31] MEDS: oxyCODONE/ACETAMINOPHEN (*CRX) 10-325 MG TABLET 1 TAB PO ×2 (08:05→14:33)
[2025-03-31] MEDS: SENNA/DOCUSATE SODIUM TABLET 2 TAB PO (08:05)
[2025-03-31] MEDS: ASCORBIC ACID 500 MG TABLET 1000 MG PO (08:06)
[2025-03-31] MEDS: CELECOXIB 200 MG CAPSULE PO (08:07)
[2025-03-31] MEDS: polyethylene glycoL 3350 17 GM POWD.PACK PO (08:07)
[2025-03-31] MEDS: LETROZOLE (*CHEMO) 2.5 MG TABLET PO (08:07)
[2025-03-31] MEDS: GABAPENTIN 400 MG CAPSULE 800 MG PO (08:07)
[2025-03-31] MEDS: FAMOTIDINE 20 MG TABLET PO (08:07)
[2025-03-31] MEDS: ONDANSETRON INJ 4 MG/2 ML VIAL IV PUSH (08:46)
[2025-03-31 12:00] VITALS: BP 119/76; PULSE 93; RESP 16; TEMP 36.4; O2SAT 99
--- NOTE | 2025-03-31 13:34 | PM.PNORT ---
Progress Note: A&P Assessment and Plan (1) Degenerative joint disease of right knee: Qualifiers: Osteoarthritis type: primary Qualified Code(s): M17.11 - Unilateral primary osteoarthritis, right knee Code(s): M17.11 - Unilateral primary osteoarthritis, right knee Status: Acute Assessment and Plan: POD 1 DOING WELL, NAUSEA IMPROVED. OK TO DC HOME F/U IN 3 WEEKS Subjective Subjective Date/Time Seen: 03/31/25 13:34 Interval history: POD 1 DOING WELL. GOOD PROGRESS WITH PT, NO CALF PAIN Objective Data Vital Signs Vital Signs: Vital Signs - 24 hr 03/30/25 15:11 03/30/25 15:15 03/30/25 15:30 Temperature 36.1 C L Pulse Rate 110 H 100 102 H Respiratory Rate 13 17 20 Blood Pressure 152/94 H 165/91 H 146/82 H Pulse Oximetry 99 100 99 Oxygen Delivery Simple Face Mask Simple Face Mask Simple Face Mask Oxygen Flow Rate 8 8 8 03/30/25 15:45 03/30/25 16:00 03/30/25 16:15 Temperature Pulse Rate 99 101 H 96 Respiratory Rate 20 15 22 H Blood Pressure 159/92 H 140/90 162/98 H Pulse Oximetry 98 99 98 Oxygen Delivery Simple Face Mask Simple Face Mask Simple Face Mask Oxygen Flow Rate 8 8 8 03/30/25 16:30 03/30/25 16:45 03/30/25 17:20 Temperature 36.3 C L Pulse Rate 100 100 97 Respiratory Rate 22 H 20 18 Blood Pressure 150/91 H 135/96 H 123/76 Pulse Oximetry 92 93 98 Oxygen Delivery Nasal Cannula Nasal Cannula Oxygen Flow Rate 2 2 03/30/25 17:35 03/30/25 17:53 03/30/25 18:33 Temperature 36.3 C L 36.3 C L Pulse Rate 103 H 106 H Respiratory Rate 18 18 18 Blood Pressure 133/88 133/83 Pulse Oximetry 96 96 96 Oxygen Delivery Nasal Cannula Oxygen Flow Rate 2 03/30/25 21:47 03/31/25 01:02 03/31/25 06:08 Temperature 36.4 C L 35.9 C L 35.8 C L Pulse Rate 96 94 90 Respiratory Rate 18 18 18 Blood Pressure 135/69 135/72 127/65 Pulse Oximetry 95 94 97 Oxygen Delivery Oxygen Flow Rate 03/31/25 08:00 03/31/25 08:00 03/31/25 09:18 Temperature 36.4 C L Pulse Rate 94 Respiratory Rate 14 Blood Pressure 119/74 Pulse Oximetry 99 99 Oxygen Delivery Room Air Room Air Oxygen Flow Rate 03/31/25 10:14 Temperature Pulse Rate Respiratory Rate Blood Pressure Pulse Oximetry Oxygen Delivery Room Air Oxygen Flow Rate Intake/Output Intake/Output: Intake & Output 03/28/25 03/29/25 03/30/25 03/31/25 23:59 23:59 23:59 23:59 Intake Total 450 958 Balance 450 958 Meds/Results Medications: Active Medications Generic Name Dose Route Start Last Admin Trade Name Freq PRN Reason Stop Dose Admin Acetaminophen 500 mg 03/30/25 16:48 Acetaminophen 500 Mg Tablet PO Q6H PRN Pain Rated 1-3 Albuterol 2 puff 03/30/25 17:14 Albuterol Sulfate (*Sp) Aerosol 1 Puff INHALATION Q4HRT PRN shortness of breath or wheezing Ascorbic Acid 1,000 mg 03/31/25 09:00 03/31/25 08:06 Ascorbic Acid 500 Mg Tablet PO 1,000 mg QAM JUANJOSE Administration Celecoxib 200 mg 03/30/25 17:00 03/31/25 08:07 Celecoxib 200 Mg Capsule PO 200 mg BIDWM JUANJOSE Administration Diazepam 5 mg 03/30/25 16:48 Diazepam (*Crx) 5 Mg Tablet PO Q8H PRN Spasms Dicyclomine HCl 20 mg 03/31/25 09:00 03/31/25 12:35 Dicyclomine Hcl 10 Mg Capsule PO Not Given TID JUANJOSE Diphenhydramine HCl 25 mg 03/30/25 16:48 Diphenhydramine Hcl Inj 50 Mg/Ml Vial IV PUSH Q6H PRN Itching Famotidine 20 mg 03/30/25 21:00 03/31/25 08:07 Famotidine 20 Mg Tablet PO 20 mg Q12HR JUANJOSE Administration Gabapentin 800 mg 03/30/25 17:00 03/31/25 08:07 Gabapentin 400 Mg Capsule PO 800 mg BID JUANJOSE Administration Hydromorphone HCl 1 mg 03/30/25 16:48 Hydromorphone Hcl Inj (*Crx) 1 Mg/Ml Syr IV PUSH Q2H PRN Breakthrough Pain Rated 7-10 or NPO Hydromorphone HCl 0.5 mg 03/30/25 16:48 Hydromorphone Hcl Inj (*Crx) 1 Mg/Ml Syr IV PUSH Q2H PRN Breakthrough Pain Rated 4-6 or NPO Ibuprofen 800 mg in 200 mls @ 400 mls/hr 03/30/25 16:48 Caldolor 800 Mg/200 Ml IVPB Q6H PRN Breakthrough Pain Rated 1-3 or NPO Letrozole 2.5 mg 03/31/25 09:00 03/31/25 08:07 Letrozole (*Chemo) 2.5 Mg Tablet PO 2.5 mg QAM JUANJOSE Administration Levothyroxine Sodium 75 mcg 03/31/25 06:30 03/31/25 05:27 Levothyroxine Sodium 75 Mcg Tablet PO 75 mcg DAILY@0630 JUANJOSE Administration Naloxone HCl 0.1 mg 03/30/25 16:48 Naloxone Hcl 0.4 Mg/Ml Vial IV PUSH Q2M PRN Opiate Reversal Ondansetron HCl 4 mg 03/30/25 16:48 03/31/25 08:46 Ondansetron Inj 4 Mg/2 Ml Vial IV PUSH 4 mg Q4H PRN Administration Nausea And Vomiting Oxycodone/Acetaminophen 1 tablet 03/30/25 16:48 03/30/25 18:23 Oxycodone/Acetaminophen (*Crx) 5-325 Mg Tablet PO 1 tablet Q4H PRN Administration Pain Rated 4-6 Oxycodone/Acetaminophen 1 tab 03/30/25 16:48 03/31/25 08:05 Oxycodone/Acetaminophen (*Crx) 10-325 Mg Tablet PO 1 tab Q6H PRN Administration Pain Rated 7-10 Polyethylene Glycol 17 gm 03/31/25 09:00 03/31/25 08:07 Polyethylene Glycol 3350 17 Gm Powd.Pack PO 17 gm QAM JUANJOSE Administration Primidone 50 mg 03/30/25 21:00 03/30/25 21:17 Primidone 50 Mg Tablet PO 50 mg QHS JUANJOSE Administration Ropinirole HCl 0.25 mg 03/30/25 21:00 03/30/25 21:17 Ropinirole Hcl 0.25 Mg Tablet BY MOUTH 0.25 mg HS JUANJOSE Administration Senna/Docusate Sodium 2 tab 03/30/25 17:00 03/31/25 08:05 Senna/Docusate Sodium Tablet PO 2 tab BID JUANJOSE Administration Warfarin Sodium 0.5 mg 03/31/25 17:00 Warfarin (*Pbkc) 0.5 Mg Tablet PO DAILY@1700 [facility] Warfarin Sodium 4 mg 03/31/25 17:00 Warfarin (*Pbkc) 2 Mg Tablet PO DAILY@1700 [facility] Radiology Results: ITS Impressions Knee X-Ray 03/30/25 15:32 IMPRESSION: No acute osseous abnormality right knee. Total knee arthroplasty. Postoperative changes Labs Labs: Laboratory Results - last 24 hr 03/31/25 05:19 WBC 12.2 H RBC 3.29 L Hgb 10.5 L Hct 33.3 L MCV 101.2 H MCH 31.9 MCHC 31.5 L RDW 16.7 H Plt Count 218 MPV 9.4 Immature Gran % (Auto) 0.7 H Neut % (Auto) 87.3 H Lymph % (Auto) 5.5 L Davison % (Auto) 6.4 Eos % (Auto) 0.0 Baso % (Auto) 0.1 L Lymph # (Auto) 0.67 L Davison # (Auto) 0.8 H Eos # (Auto) 0.0 Baso # (Auto) 0.0 Abs Immat Gran (auto) 0.08 H Absolute Neuts (auto) 10.6 H Absolute Nucleated RBC 0.000 Nucleated RBC % 0.0 PT 18.3 H INR 1.5 Sodium 138 Potassium 5.0 Chloride 108 H Carbon Dioxide 24 Anion Gap 6 BUN 21 H Creatinine 0.92 Estim Creat Clear Calc 58 Estimated GFR 60 Glucose 134 H Calcium 7.9 L
== END 2025-03-31 16:10 | disposition home or self-care (01) ==
LOC: ANHSURGERY 10:01 → ANH3MEDSUR 16:59
PROVIDERS: Anesthesiology; PCP Internal Medicine; Visit Provider Orthopaedic Surgery
PROC: (CPT 27447; principal; 2025-03-30 12:00)
DX: M17.11 Unilateral primary osteoarthritis, right knee (principal); M25.761 Osteophyte, right knee; G89.18 Other acute postprocedural pain; E03.9 Hypothyroidism, unspecified; G25.81 Restless legs syndrome; J44.9 Chronic obstructive pulmonary disease, unspecified; K86.81 Exocrine pancreatic insufficiency; M81.0 Age-related osteoporosis without current pathological fracture; Z79.01 Long term (current) use of anticoagulants; Z79.51 Long term (current) use of inhaled steroids; Z98.890 Other specified postprocedural states; Z90.49 Acquired absence of other specified parts of digestive tract; Z86.718 Personal history of other venous thrombosis and embolism; Z85.41 Personal history of malignant neoplasm of cervix uteri; Z92.3 Personal history of irradiation; Z92.21 Personal history of antineoplastic chemotherapy; Z85.3 Personal history of malignant neoplasm of breast; Z80.3 Family history of malignant neoplasm of breast; Z82.49 Family history of ischemic heart disease and other diseases of the circulatory system
CPT/HCPCS: 64447; 27447; 36415; 73560; 80048; 85025; 85610; 85730; 97110; 97116; 97161; 97165; 97530; 97535; A9270; C1713; C1776; J0171; J0690; J1100; J1885; J2003; J2270; J2371; J2405; J2704; J2795; J3010; J3370; J7120

== ENCOUNTER 2025-04-03 07:56 | Outpatient (CLI) | payer MEDICARE, SELFPAY ==
--- NOTE | ~2025-04-03 | XR_ITS ---
XR chest 2V Ordering provider: Ankit Villafuerte DO History: 75 years Female with . R05.9 - Cough, unspecified . Comparison: December 21, 2024 FINDINGS: MEDIASTINUM: The cardiac silhouette is not enlarged. Slightly congestive nory with more prominence on the right side. LUNGS: No effusions or pneumothorax. Fibrotic changes seen in both lungs. Superimpose pneumonitis can not be excluded. OTHER: No free air under the diaphragm. Levoscoliosis with degenerative changes of the spine. IMPRESSION: Prominent markings bilaterally suggestive of fibrotic changes. Superimposed pneumonitis is not exclud ed. Follow-up advised. Reviewed, dictated and finalized at location A. IMPRESSION: Prominent markings bilaterally suggestive of fibrotic changes. Superimposed pne umonitis is not excluded. Follow-up advised.
--- OUTSIDE RECORDS SUMMARY | 2025-04-03 08:02 | XMS_ITS ---
Author Organization [facility] Address [address] [place] [address] Phone Care Team Providers Care Saxophone Assembler Name Role Phone Unavailable Primary Care [...]
--- OUTSIDE RECORDS SUMMARY | 2025-04-03 08:02 | XMS_ITS | Clinical Summary ---
Author Organization [facility] Address [facility] [place] [address] Care Team Providers Care Oil Tanker Captain Name Role Phone Noy Ankit Stephens DO Primary Care Provider [phone] Allergies No known active allergies Medications cholecalciferol [...] Encounters Date Type Department Care Team Description 03/31/2025 External Device Data STL ABSTRACTION Provider, Abstract 03/30/2025 External Device Data STL ABSTRACTION Provider, Abstract 02/23/2025 11:45 AM CDT Office Visit [facility] Oncology and Hematology [facility] [address] [place] [address] Lj Fam MD Malignant neoplasm of upper-outer quadrant of right breast in female, estrogen receptor positive (CMS/HCC) (Primary Dx); Visit for screening mammogram 02/17/2025 Orders Only [facility] Oncology and Hematology [facility] [address] [place] [address] Lj Fam MD 02/02/2025 Orders Only [facility] Oncology and Hematology [facility] [address] [place] [address] Lj Fam MD from Last 3 Months [...] on file 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 Gender Identity Not on file Sexual Orientation [...] Description 08/27/2025 10:30 AM CDT Office Visit [facility] Oncology and Hematology - [place] [address] [facility] [address] [place] [address] Lj Fam MD [address] [facility] [address] [place] [address] Health Maintenance Due Date Last [...] Maintenance Insurance MEDICARE PART A AND B [facility] MEDICARE PART A AND B [employer] [facility] Care Teams Oil Tanker Captain Relationship Specialty Start Date End Date Ankit Villafuerte DO [address] [facility] [address] [facility] [address] [place] [address] PCP - General Internal Medicine 07/30/24
--- OUTSIDE RECORDS SUMMARY | 2025-04-03 08:02 | XMS_ITS | Encounter Summary ---
Author Organization [facility] Address [address] [place] [address] Care Team Providers Care Mathematics Academic Chair Name Role Phone Ankit Villafuerte DO Primary Care Provider [phone] Encounter Details Date Type Department Care Team (Late Contact Info) Description 2019 Chart Note [facility] Radiation Therapy [address] [place] [address] [place] [address] [place] [address] Social History Tobacco Use Types Packs/Day Years Used Date Smoking Tobacco: Never Alcohol Use Standard Drinks/Week Comments Yes 0 (1 standard drink = 0.6 oz pur e alcohol) Comments No Sex and Gender Information Value Date Recorded Sex Assigned at Not on file 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 Gender Identity Not on file Sexual Orientation Not on file documented as of this encounter Plan of Treatment Upcoming Encounters Date Type Department Care Team (Late Contact Info) Description 08/27/2025 10:30 AM CDT Office Visit [facility] Oncology and Hematology - [place] [address] [facility] [address] [place] [address] Lj Fam MD [address] [facility] [address] [place] [address] documented as of this encounter Visit Diagnoses Not on filedocumented in this encounter Care Teams Mathematics Academic Chair Relationship Specialty Start Date End Date Ankit Villafuerte DO [address] [facility] 162 [facility] [address] [place] [address] PCP - General Internal Medicine 07/30/24 documented as of this encounter
--- OUTSIDE RECORDS SUMMARY | 2025-04-03 08:02 | XMS_ITS | Data Portability ---
Author Organization [facility] [employer], Main Office Address [address] [place] [address] Care Team Providers Care Medical Science Liaison Name Role Phone NICHO CHIANG Paper Cone Machine Tender [place] Primary Care Provider Assessment No [...] ate patho logy repor t. Not Available [facility] (Lab) [address] [place], [address], 02/15/2025 12:29:04 11/27/19 25 10/13/2024 CT, sinus es, w/o contr ast No observ ation record ed. [facility] [address], [place], [address], 11/30/2024 08:22:54 11/27/19 25 11/27/2024 CT, sinus es, w/o contr ast No observ ation record ed. [facility] Not Available 2024 13:23:57 Result Notes None recorded. Problems Name Problem SNOMED Code Status Onset Date Resolution Date Notes Provider Name and Address Organization Details Recorded Time Numbness and tingling sensation of skin 016375830888 Active 2017 Not Available [facility] 3 19:46:48 Wears glasses 531456341 Active 2017 Not Available [facility] 3 19:46:48 Malignant tumor of breast 953977906 Active 2017 x2 Not Available [facility] 3 19:46:48 Dyspnea 976984112 Active 2017 Not Available [facility] 3 19:46:48 Neuropathy 439010462 Active 2017 Not Available [facility] 3 19:46:48 Impairment of balance 720348733 Active 2017 Not Available [facility] 3 19:46:48 Porokerato sis 047286407 Active 2017 Not Available [facility] 3 19:46:48 Arterioscl erosis of carotid artery 1425607859256 03 Active 2017 Not Available [facility] 3 19:46:48 Seasonal allergy 569710685 Active 2017 Not Available [facility] 3 19:46:48 Staphyloco ccal infectious disease 23732941 Active 2017 on R arm Not Available [facility] 3 19:46:48 Swelling 34989437 Active 2017 Not Available [facility] 3 19:46:48 Chronic maxillary sinusitis 00685845 Active 2024 Nicho Farah MD [address], [place], [address] , [facility] [employer] [facility] 5 10:48:33 Chronic ethmoidal sinusitis 48300337 Active 2024 Nicho Farah MD [address], [facility] [address], [place], [address] , [facility] [employer] [facility] 5 10:48:41 Chronic frontal sinusitis 79592730 Active 2024 Nicho Farah MD [address], [facility] [address], [place], [address] , [facility] [employer] [facility] 5 10:48:49 Chronic sinusitis 26319971 Active 2024 Shital Palacio [facility], [facility] [employer] [facility] 10:07:30 Problem Notes None recorded. Procedures Surgical History Date Name Laterality Status Provider Name and Address Organization Details Recorded Time ENDOSCOPY, NASAL/SINUS, WITH FRONTAL SINUS EXPLORATION (SURG) completed Aliyah Lucero RN [facility] [employer] [facility] 02/18/2025 12:24:26 Imaging Results Imaging Date Name Status LastModified by Organiz ation Details LastModified Time 10/13/2024 CT, sinuses, w/o contrast completed [facility] [address] [facility] [address], [place], [address], 11/30/2024 08:22:54 11/27/2024 CT, sinuses, w/o contrast [...] Address Organization Details Last Updated DateTime 12/10/2024 47192.05 g 31.6 kg/m2 175.26 cm 98 [degF] Aliyah Lucero RN [facility] [employer] 12/10/2024 10:30:57 Date Recorded Body height Body temperature Body mass index (BMI) Body weight Provider Name and Address Organization Details Last Updated DateTime 02/18/2025 175.26 cm 97.6 [degF] 30.9 kg/m2 81433.24 g Aliyah Lucero RN [facility] [employer] 02/18/2025 11:11:58 Social History None recorded. Functional [...] SNOMED-CT Code Diagnosis ICD10 Code Diagnosis Note [id number] Nicho Farah MD [facility] [place] [address] [place] [address] 12/10/2024 10:19:01 12/10/2024 12:24:38 Chronic maxillary sinusitis 73234703 J32.0 Chronic et hmoidal sinusitis 62101762 J32.2 Chronic fr ontal sinusitis 75701443 J32.1 [id number] Nicho Farah MD [facility] [place] [address] [place] [address] 02/18/2025 10:54:30 02/18/2025 11:41:24 Postoperative visit [id number] Z48.89 02/08/2025 postoperat barbara from a bilateral [...] 12/10/2024 1 [place] Damien M Klitzing [id number] Damien Klitzing 12/10/2024 2 [email or web address] (MEDICARE SUPPLEMENT) PLAN F Charly Klitzing [id number] Damien Klitzing 02/18/2025 1 [place] Damien M Klitzing [id number] Damien Klitzing 02/18/2025 2 [email or web address] (MEDICARE SUPPLEMENT) PLAN F Charly Klitzing [id number] Damien Klitzing Notes Date Note Type Note Provider Name and Address Organization Details Recorded Time 12/10/2024 text/html This patient has a 1 year history of chronic cough. She was evaluated by an die cast operator who found allergies to trees. A sinus CT demonstrated pansinusitis and left septal deviation. She has been on antibiotics without improvement. Nicho Farah MD [address], [place], [address], [employer] 12/10/2024 10:49:31 02/18/2025 text/html this patient presents to the office for a postoperative visit from a bilateral maxillary antrostomy, ethmoidectomy, and frontal sinus exploration with navigation that was completed on 02/08/2025. She reports use of saline rinses. She has not started blowing her nose at this time. Denies any complaints. MILI Bloom [address], [place], [address], [place] 02/18/2025 11:40:46 OBGyn Episode No OBEpisode recorded.
--- OUTSIDE RECORDS SUMMARY | 2025-04-03 08:02 | XMS_ITS | Encounter Summary ---
Author Organization [facility] Address 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 Gender Identity Not on file Sexual Orientation Not on file documented as of this encounter Plan of Treatment Upcoming Encounters Date Type Department Care Team (Late st Contact Info) Description 08/27/2025 10:30 AM CDT [facility] Oncology and Hematology - [place] [address] [place] [address] [address] [place] [address] Lj Fam MD [address] [facility] [address] [place] [address] documented as of this encounter Visit Diagnoses Not on filedocumented in this encounter Care Teams Auto Phone Installer Relationship Specialty Start Date End Date Ankit Villafuerte DO [address] [facility] [address] [place] [address] PCP - General Internal Medicine 07/30/24 documented as of this encounter
--- OUTSIDE RECORDS SUMMARY | 2025-04-03 08:02 | XMS_ITS | Clinical Summary ---
Author Organization [facility] Address [address] [place] [address] Phone Care Team Providers Care Furniture Decals Inspector Name Role Phone Unavailable Primary Care Provider Unavailabl e Allergies No known active allergies Medications furosemide (LASIX) 40 MG Tablet TAKE 1 TABLET BY ORAL ROUTE EVERY DAY 2 6 Active SYNTHROID 125 MCG Tablet TAKE 1 TABLET BY ORAL ROUTE EVERY DAY 2 6 Active montelukast (SINGULAIR) 10 MG Tablet Take 10 mg by mouth daily. 1 6 Active CREON [address] Particles TAKE ONE CAPSULE [...] patient's age to complete this topic Insurance [employer]
--- OUTSIDE RECORDS SUMMARY | 2025-04-03 08:02 | XMS_ITS | Clinical Summary ---
Author Organization [facility] Address [address] [place] [address] Care Team Providers Care Sales Representative Rural Power Name Role Phone Chris Avalos PA-C Primary Care Provide r Source Comments [facility],non-owned Affiliates and Associated Physician Practices is amultiple site organization consisting of ambulatory clinics and hospital sitesin [place], [place], [place] and [place]. This disclosure is being madepursuant to the Care Everywhere program and may not contain all information available regarding this patient. Last updated 18.[facility] [employer] Allergies No known active allergies Medications * Be aware that medications may not be up to date on this document. Alwaysverify current medications with the patient. 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 Gender Identity Not on file Sexual Orientation [...] this topic Medical Devices Implanted Type Area Director Of Curriculum And Instruction Device Identifier Shelf Expiration Date Model / Serial / Lot Screw Implanted:Qty: 1 on 04/30/2022 by Michel Mendieta MD at [facility] Right: Wrist [employer] [id number] / / Screw 2.7mm 20mm Mldir Nonster Bone Implanted:Qty: 1 on 04/30/2022 by Michel Mendieta MD at [facility] Right: Wrist [employer] [id number] / / Plate Implanted:Qty: 1 on 04/30/2022 by Michel Mendieta MD at [facility] Right: Wrist [employer] [id number] / / Screw 2.7mm 14mm Lopro Nonster Bone Lf Implanted:Qty: 2 on 04/30/2022 by Michel Mendieta MD at [facility] Right: Wrist [employer] [id number] / / Screw Implanted:Qty: 1 on 04/30/2022 by Michel Menditea MD at [facility] Right: Wrist [employer] [id number] / / Screw 2.7mm 20mm Crsslck Tpr Head 3 Ld Implanted:Qty: 3 on 04/30/2022 by Michel Mendieta MD at [facility] Right: Wrist [employer] [id number] / / Screw 2.7mm 22mm Lck Jesse Nonster Bone Implanted:Qty: 2 on 04/30/2022 by Michel Mendieta MD at [facility] Right: Wrist [employer] [id number] / / Explanted Type Area Director Of Curriculum And Instruction Device Identifier Shelf Expiration Date Model / Serial / Lot Wire K .062in 6in Fx 2 Troc Explanted:Qty: 2 on 04/30/2022 by Michel Mendieta MD at [facility] Right: Wrist [employer] [id number] / / Wire K 1.6mm Ss Fx Nonster Explanted:Qty: 3 on 04/30/2022 by Michel Mendieta MD at [facility] Right: Wrist [employer] [id number] / / Screw 2.7mm 20mm Crsslck Lopro Nonlock Explanted:Qty: 1 on 04/30/2022 by Michel Mendieta MD at [facility] Right: Wrist [employer] [id number] / / Screw 2.7mm 20mm Crsslck Lopro Nonlock Explanted:Qty: 1 on 04/30/2022 by Michel Mendieta MD at [facility] Right: Wrist [employer] [id number] / / Insurance MEDICARE [facility] [address] [place] [address] MEDICARE Care Teams Sales Representative Rural Power Relationship Specialty Start Date End Date Chris Avalos PA-C [address] [place] [address] PCP - General 04/25/22
== END 2025-04-03 07:57 | disposition home or self-care (01) ==
PROVIDERS: PCP Internal Medicine; Visit Provider Internal Medicine
DX: R05.9 Cough, unspecified (principal)
CPT/HCPCS: 71046

== ENCOUNTER 2025-04-26 12:52 | Outpatient (RCR) | payer MEDICARE, SELFPAY ==
[2025-02-24 12:49] LABS: INR 2.9; Prothrombin Time 30.3 Seconds (11.1-14.7)
[2025-03-06 11:43] LABS: INR 2.4; Prothrombin Time 27.2 Seconds (11.1-14.7)
[2025-04-26 13:47] LABS: INR 4.7; Prothrombin Time 42.7 Seconds (11.1-14.7)
== END 2025-05-25 23:59 | disposition home or self-care (01) ==
LOC: ANHLAB 12:52
PROVIDERS: PCP Internal Medicine; Visit Provider Internal Medicine
DX: Z51.81 Encounter for therapeutic drug level monitoring (principal); Z79.01 Long term (current) use of anticoagulants
CPT/HCPCS: 36415; 85610

== ENCOUNTER 2025-04-28 16:30 | Outpatient (CLI) | payer MEDICARE, SELFPAY ==
[2025-04-28 16:45] LABS: Basophils Percent Auto 0.3 % (0.2-1.2); Eosinophils Percent Auto 0.5 % (0-4.4); Hematocrit 34.8 % (37.0-47.0); Hemoglobin 11.1 g/dL (12.0-15.0); Immature Granulocyte Absolute 0.05 K/mm3 (0.00-0.031); Immature Granulocyte Percent A 0.9 % (0-0.5); Lymphocytes Absolute Auto 0.86 K/mm3 (0.9-3.2); Lymphocytes Percent Auto 14.9 % (18.3-44.2); Mean Corpuscular HGB Conc 31.9 g/dl (32-36); Mean Corpuscular Hemoglobin 31.9 pg (26-34); Mean Platelet Volume 8.8 fl (7.4-10.4); Monocytes Absolute Auto 0.4 K/mm3 (0.1-0.6); Monocytes Percent Auto 6.4 % (2.6-8.5); Neutrophils Absolute Auto 4.5 K/mm3 (1.3-6.7); Platelet Count Result 209 k/mm3 (150-375); Red Blood Count 3.48 M/mm3 (4.2-5.4); White Blood Count 5.8 K/mm3 (4.5-10.0)
[2025-04-28 16:54] LABS: Alanine Aminotransferase 21 U/L (6-35); Albumin Level 3.6 g/dL (3.5-5.1); Alkaline Phosphatase 106 U/L (38-126); Anion Gap 4 mmol/L (4-12); Aspartate Amino Transferase 36 U/L (14-36); Bilirubin,Total 0.4 mg/dL (0.2-1.3); Blood Urea Nitrogen 12 mg/dL (7-17); Calcium 8.8 mg/dL (8.4-10.2); Carbon Dioxide 25 mmol/L (22-30); Chloride 107 mmol/L (98-107); Estimated Glomerular Filt Rate > 60; Glucose 102 mg/dL (65-110); Potassium 3.9 mmol/L (3.4-5.0); Sodium 136 mmol/L (137-145); Total Protein 6.8 g/dL (6.3-8.2)
--- OUTSIDE RECORDS SUMMARY | 2025-04-28 17:44 | XMS_ITS | Clinical Summary ---
Author Organization [facility] Address [address] [place] [address] Care Team Providers Care Protective Signal Repairer Helper Name Role Phone Chris Avalos PA-C Primary Care Provide r Source Comments [facility],non-owned Affiliates and Associated Physician Practices is amultiple site organization consisting of ambulatory clinics and hospital sitesin [place], [place], [place] and [place]. This disclosure is being madepursuant to the Care Everywhere program and may not contain all information available regarding this patient. Last updated 18.[facility] [employer] Allergies No known active allergies Medications * Be aware that medications may not be up to date on this document. Alwaysverify current medications with the patient. 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 Gender Identity Not on file Sexual Orientation [...] 9:36 AM CDT Height 175.3 cm (5' 9) 06/06/2022 9:06 AM CDT Body Mass Index [...] this topic Medical Devices Implanted Type Area Vessel Operator Device Identifier Shelf Expiration Date Model / Serial / Lot Screw Implanted:Qty: 1 on 04/30/2022 by Michel Mendieta MD at [facility] Right: Wrist [employer] [id number] / / Screw 2.7mm 20mm Mldir Nonster Bone Implanted:Qty: 1 on 04/30/2022 by Michel Mendieta MD at [facility] Right: Wrist [employer] [id number] / / Plate Implanted:Qty: 1 on 04/30/2022 by Michel Mendieta MD at [facility] Right: Wrist [employer] [id number] / / Screw 2.7mm 14mm Lopro Nonster Bone Lf Implanted:Qty: 2 on 04/30/2022 by Michel Mendieta MD at [facility] Right: Wrist [employer] [id number] / / Screw Implanted:Qty: 1 on 04/30/2022 by Michel Mendieta MD at [facility] Right: Wrist [employer] [id number] / / Screw 2.7mm 20mm Crsslck Tpr Head 3 Ld Implanted:Qty: 3 on 04/30/2022 by Michel Mendieta MD at [facility] Right: Wrist [employer] [id number] / / Screw 2.7mm 22mm Lck Jesse Nonster Bone Implanted:Qty: 2 on 04/30/2022 by Michel Mendieta MD at [facility] Right: Wrist [employer] [id number] / / Explanted Type Area Vessel Operator Device Identifier Shelf Expiration Date Model / Serial / Lot Wire K .062in 6in Fx 2 Troc Explanted:Qty: 2 on 04/30/2022 by Michel Mendieta MD at [facility] Right: Wrist [employer] [id number] / / Wire K 1.6mm Ss Fx Nonster Explanted:Qty: 3 on 04/30/2022 by Michel Mendieta MD at [facility] Right: Wrist [employer] [id number] / / Screw 2.7mm 20mm Crsslck Lopro Nonlock Explanted:Qty: 1 on 04/30/2022 by Michel Mendieta MD at [facility] Right: Wrist [employer] [id number] / / Screw 2.7mm 20mm Crsslck Lopro Nonlock Explanted:Qty: 1 on 04/30/2022 by Michel Mendieta MD at [facility] Right: Wrist [employer] [id number] / / Insurance MEDICARE [facility] [employer] [address] [place] [address] MEDICARE Care Teams Protective Signal Repairer Helper Relationship Specialty Start Date End Date Chris Avalos PA-C [address] [place] [address] PCP - General 04/25/22
--- OUTSIDE RECORDS SUMMARY | 2025-04-28 17:44 | XMS_ITS | Clinical Summary ---
Author Organization [facility] Address [address] [place] [address] Care Team Providers Care Surgical Garment Assembly Supervisor Name Role Phone Ankit Villafuerte DO Primary Care Provider [phone] Allergies No known active allergies Medications warfarin (COUMADIN) 5 MG tablet Take 4.5 mg by mouth daily. Active Encounters Date Type Department Care Team Description 02/08/2025 7:32 AM CDT - 02/08/2025 11:59 PM CDT Hospital Encounter [facility] [place] [address] Nicho Metzger MD Discharge Disposition: Home or [...] Comments Blood Pressure 137/83 09/28/2024 5:55 PM DISABILITY COORDINATOR Pulse 73 09/28/2024 5:55 PM DISABILITY COORDINATOR Temperature 36.2 C (97.1 F) 09/28/2024 5:55 PM DISABILITY COORDINATOR Respiratory Rate 18 09/28/2024 5:55 PM DISABILITY COORDINATOR Oxygen Saturation 98% 09/28/2024 5:55 PM DISABILITY COORDINATOR Inhaled Oxygen Concentration - - Weight 97.1 kg (214 lb 1.1 oz) 09/28/2024 3:00 P M DISABILITY COORDINATOR Height 175.3 cm (5' 9) 09/28/2024 3:00 PM DISABILITY COORDINATOR Body Mass Index 31.61 09/28/2024 3:00 PM DISABILITY COORDINATOR Plan of Treatment Health Maintenance Due Date [...] * Pathology (02/08/2025 12:00 AM CDT) PATHOLOGY [facility] Department of Laboratory Medicine [address] [place] [address] , extension [phone] Pathology Report Surgical Pathology Report Name: DAMIEN PULIDO Specimen #: [id number] Age: 5 1950 (Age: 74) Location: [facility] Sex: F Procedure Date: 02/08/2025 Hospital #: [id number] Date Received: 02/09/2025 Date Reported: 02/14/2025 Provider: [...] clotted blood and fragments of bony/cartilaginous tissue. Firestop/Containment Worker tissue is submitted in cassette 1 following decalcification in immuno decal. Gross examination (when applicable), interpretation, and sign out were performed at [facility], [address] [place] [address]. All immunohistochemical and histochemical tests were developed by and performed at [facility], [address] [place] [address]. All tests reported here have not been [...] Metzger MD PATHOLOGY/CYTOLOGY ORDERABL ES Final Result [facility] [address] [place] [address], [id number] from Last 3 Months Insurance [employer] MEDICARE [employer] Care Teams Surgical Garment Assembly Supervisor Relationship Specialty Start Date End Date Ankit Villafuerte DO [address] [address] PCP - General INTERNAL MEDICINE 09/28/24
--- OUTSIDE RECORDS SUMMARY | 2025-04-28 17:44 | XMS_ITS | Data Portability ---
Author Organization [facility] [employer], Main Office Address [address] [place] [address] Care Team Providers Care Air Bag Buffer Name Role Phone NICHO CHIANG Train Driver MAINOR RIVER Primary Care Provider Assessment No [...] ate patho logy repor t. Not Available [facility] (Lab) [address] [place], [address], 02/15/2025 12:29:04 11/27/19 25 10/13/2024 CT, sinus es, w/o contr ast No observ ation record ed. [facility] [address], [place], [address], 11/30/2024 08:22:54 11/27/19 25 11/27/2024 CT, sinus es, w/o contr ast No observ ation record ed. [facility] Not Available 2024 13:23:57 Result Notes None recorded. Problems Name Problem SNOMED Code Status Onset Date Resolution Date Notes Provider Name and Address Organization Details Recorded Time Numbness and tingling sensation of skin 150393281837 Active 2017 Not Available [facility] 3 19:46:48 Wears glasses 357436707 Active 2017 Not Available [facility] 3 19:46:48 Malignant tumor of breast 037357519 Active 2017 x2 Not Available [facility] 3 19:46:48 Dyspnea 659774029 Active 2017 Not Available [facility] 3 19:46:48 Neuropathy 417709572 Active 2017 Not Available [facility] 3 19:46:48 Impairment of balance 228482587 Active 2017 Not Available [facility] 3 19:46:48 Porokerato sis 596698312 Active 2017 Not Available [facility] 3 19:46:48 Arterioscl erosis of carotid artery 0347714031857 03 Active 2017 Not Available [facility] 3 19:46:48 Seasonal allergy 929403743 Active 2017 Not Available [facility] 3 19:46:48 Staphyloco ccal infectious disease 29507561 Active 2017 on R arm Not Available [facility] 3 19:46:48 Swelling 13291314 Active 2017 Not Available [facility] 3 19:46:48 Chronic maxillary sinusitis 45078612 Active 2024 Nicho Fraah MD [address], [address], [place], [address] , [facility] [employer] [facility] 5 10:48:33 Chronic ethmoidal sinusitis 87415079 Active 2024 Nicho Farah MD [address] [facility], [address], [place], [address] , [facility] [employer] [facility] 5 10:48:41 Chronic frontal sinusitis 98729371 Active 2024 Nicho Farah MD [address], [facility] [address], [place], [address] , [facility] [employer] [facility] 5 10:48:49 Chronic sinusitis 69136029 Active 2024 Shital Palacio [facility], [facility] [employer] [facility] 5 10:07:30 Problem Notes None recorded. Procedures Surgical History Date Name Laterality Status Provider Name and Address Organization Details Recorded Time ENDOSCOPY, NASAL/SINUS, WITH FRONTAL SINUS EXPLORATION (SURG) completed Aliyah Lucero RN [facility] [employer] [facility] 02/18/2025 12:24:26 Imaging Results None recorded. Procedure Notes None recorded. Medical Equipment None [...] Available Not Available Not Available Fluzone High-Dose 5554-6214 (PF) 180 mcg/0.5 mL intramuscul ar syringe [...] Address Organization Details Last Updated DateTime 12/10/2024 82660.05 g 31.6 kg/m2 175.26 cm 98 [degF] Aliyah Gvillo, RN [facility] [employer] [facility] 12/10/2024 10:30:57 Date Recorded Body height Body temperature Body mass index (BMI) Body weight Provider Name and Address Organization Details Last Updated DateTime 02/18/2025 175.26 cm 97.6 [degF] 30.9 kg/m2 82175.24 g Aliyah Lucero RN [facility] [employer] [facility] 02/18/2025 11:11:58 Social History None recorded. Functional [...] SNOMED-CT Code Diagnosis ICD10 Code Diagnosis Note [id number] Nicho Farah MD [facility] [place] [address] [place] [address] 12/10/2024 10:19:01 12/10/2024 12:24:38 Chronic maxillary sinusitis 76320151 J32.0 Chronic et hmoidal sinusitis 51102019 J32.2 Chronic fr ontal sinusitis 49951891 J32.1 [id number] Nicho Farah MD [facility] [place] [address] [place] [address] 02/18/2025 10:54:30 02/18/2025 11:41:24 Postoperative visit [id number] Z48.89 02/08/2025 postoperat barbara from a bilateral [...] Recorded Advance Directives Directive None Recorded Payers Insurance Date Sequence Insurance Name Policy Number Policy Rodriguez Covered Member ID Rodriguez Member ID Guarantor Name 12/10/2024 1 [employer] (POS) [id number] Charly Pulido [id number] Damien Kernronni 02/18/2025 1 [place] Damien Pulido [id number] Damien Kernronni 02/18/2025 2 [employer] (MEDICARE SUPPLEMENT) PLAN F Charly Pulido [id number] Damien Pulido Notes Date Note Type Note Provider Name and Address Organization Details Recorded Time 12/10/2024 text/html This patient has a 1 year history of chronic cough. She was evaluated by an saxophone teacher who found allergies to trees. A sinus CT demonstrated pansinusitis and left septal deviation. She has been on antibiotics without improvement. Nicho Farah MD [address] [facility], [address], [place], [address], [employer] 12/10/2024 10:49:31 02/18/2025 text/html this patient presents to the office for a postoperative visit from a bilateral maxillary antrostomy, ethmoidectomy, and frontal sinus exploration with navigation that was completed on 02/08/2025. She reports use of saline rinses. She has not started blowing her nose at this time. Denies any complaints. MILI Bloom [address] [facility], [address], [place], [address], [employer] 02/18/2025 11:40:46 OBGyn Episode No OBEpisode recorded.
--- OUTSIDE RECORDS SUMMARY | 2025-04-28 17:44 | XMS_ITS ---
Author Organization [facility] Address [address], [address] [place] [address] Phone Care Team Providers Care Hearing Aid Assistant Name Role Phone Unavailable Primary Care Provider [...]
--- OUTSIDE RECORDS SUMMARY | 2025-04-28 17:44 | XMS_ITS | Clinical Summary ---
Author Organization [facility] Address [address], [address] [place] [address] Phone Care Team Providers Care Vrt Mechanic Name Role Phone Unavailable Primary Care Provider Unavailabl e Allergies No known active allergies Medications furosemide (LASIX) 40 MG Tablet TAKE 1 TABLET BY ORAL ROUTE EVERY DAY 2 6 Active SYNTHROID 125 MCG Tablet TAKE 1 TABLET BY ORAL ROUTE EVERY DAY 2 6 Active montelukast (SINGULAIR) 10 MG Tablet Take 10 mg by mouth daily. 1 6 Active CREON [address] Particles TAKE ONE CAPSULE [...] A M CDT Height 175.3 cm (5' 9) 08/16/2016 9:45 AM CDT Body Mass Index [...] patient's age to complete this topic Insurance [employer]
== END 2025-04-28 16:31 | disposition home or self-care (01) ==
PROVIDERS: PCP Internal Medicine; Visit Provider Internal Medicine
DX: R53.1 Weakness (principal); R53.83 Other fatigue
CPT/HCPCS: 36415; 80053; 85025

== ENCOUNTER 2025-05-04 15:30 | Outpatient (CLI) | payer MEDICARE, SELFPAY ==
--- NOTE | ~2025-05-04 | CT_ITS ---
CT Scan of the Chest without Contrast: Clinical Indication: Pneumonia, cough, shortness of breath Technique: Contiguous sections were acquired throughout the chest without intravenous contrast. Dose reduction technique was used on this scan by utilizing automated exposure control and iterative recon struction technique. The dose-length product (DLP) was 248.17 mGy-cm. COMPARISON: 12/21/2024 Findings: There is no evidence of any significant mediastinal, hilar or axillary lymphadenopathy. The mediastin al soft tissues appear normal. There is no evidence of pleural or pericardial effusion. There is probable chronic ulceration change peripherally in the right upper lobe. There are minimal t ree-in-bud opacities and minimal bronchiolectasis in the right lung base. Left lung is clear. Images through the upper abdomen reveal no abnormalities. Status post right mastectomy. Multiple small sclerotic lesions at the lower thoracic and upper lumbar spine are similar to prior ex am. There are additional sclerotic lesions in the upper thoracic spine, unchanged. Impression: Probable minimal tree-in-bud opacities and minimal bronchiolectasis the right lung base, suggestive o f acute on chronic small airways infection. Post revision change peripheral right upper lobe. Scattered sclerotic lesions of the spine are stable from prior exam, suspicious for metastatic diseas e related to presumed history of breast cancer. Status post right mastectomy. Reviewed, dictated and finalized at location M. Impression: Probable minimal tree-in-bud opacities and minimal bronchiolectasis the right l karel base, suggestive of acute on chronic small airways infection. Post revision change peripheral right upper lobe. Scattered sclerotic lesions of the spine are stable from prior exam, suspicious for metastatic disease related to presumed history of breast cancer. Status post right mastectomy.
== END 2025-05-04 15:31 | disposition home or self-care (01) ==
PROVIDERS: PCP Internal Medicine; Visit Provider Internal Medicine
DX: R93.89 Abnormal findings on diagnostic imaging of other specified body structures (principal); J18.9 Pneumonia, unspecified organism; Z90.11 Acquired absence of right breast and nipple
CPT/HCPCS: 71250

== ENCOUNTER 2025-05-10 11:35 | Outpatient (CLI) | payer MEDICARE, SELFPAY ==
--- OUTSIDE RECORDS SUMMARY | 2025-05-10 11:56 | XMS_ITS | Clinical Summary ---
Author Organization [facility] Address [address] [place] [address] Care Team Providers Care Manager Entry Name Role Phone Chris Avalos PA-C Primary Care Provide r Source Comments [facility],non-owned Affiliates and Associated Physician Practices is amultiple site organization consisting of ambulatory clinics and hospital sitesin [place], [place], [place] and [place]. This disclosure is being madepursuant to the Care Everywhere program and may not contain all information available regarding this patient. Last updated 18.[facility] [employer] Allergies No known active allergies Medications * Be aware that medications may not be up to date on this document. Alwaysverify current medications with the patient. 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 Gender Identity Not on file Sexual Orientation [...] this topic Medical Devices Implanted Type Area Research Recruiter Device Identifier Shelf Expiration Date Model / Serial / Lot Screw Implanted:Qty: 1 on 04/30/2022 by Michel Mendieta MD at [facility] Right: Wrist [employer] [id number] / / Screw 2.7mm 20mm Mldir Nonster Bone Implanted:Qty: 1 on 04/30/2022 by Michel Mendieta MD at [facility] Right: Wrist [employer] [id number] / / Plate Implanted:Qty: 1 on 04/30/2022 by Michel Mendieta MD at [facility] Right: Wrist [employer] [id number] / / Screw 2.7mm 14mm Lopro Nonster Bone Lf Implanted:Qty: 2 on 04/30/2022 by Michel Mendieta MD at [facility] Right: Wrist [employer] [id number] / / Screw Implanted:Qty: 1 on 04/30/2022 by Michel Mendieta MD at [facility] Right: Wrist [employer] [id number] / / Screw 2.7mm 20mm Crsslck Tpr Head 3 Ld Implanted:Qty: 3 on 04/30/2022 by Michel Mendieta MD at [facility] Right: Wrist [employer] [id number] / / Screw 2.7mm 22mm Lck Jesse Nonster Bone Implanted:Qty: 2 on 04/30/2022 by Michel Mendieta MD at [facility] Right: Wrist [employer] [id number] / / Explanted Type Area Research Recruiter Device Identifier Shelf Expiration Date Model / Serial / Lot Wire K .062in 6in Fx 2 Troc Explanted:Qty: 2 on 04/30/2022 by Michel Mendieta MD at [facility] Right: Wrist [employer] [id number] / / Wire K 1.6mm Ss Fx Nonster Explanted:Qty: 3 on 04/30/2022 by Michel Mendieta MD at [facility] Right: Wrist [employer] [id number] / / Screw 2.7mm 20mm Crsslck Lopro Nonlock Explanted:Qty: 1 on 04/30/2022 by Michel Mendieta MD at [facility] Right: Wrist [employer] [id number] / / Screw 2.7mm 20mm Crsslck Lopro Nonlock Explanted:Qty: 1 on 04/30/2022 by Michel Mendieta MD at [facility] Right: Wrist [employer] [id number] / / Insurance MEDICARE [facility] [employer] [address] [place] [address] MEDICARE Care Teams Manager Entry Relationship Specialty Start Date End Date Chris Avalos PA-C [address] [place] [address] PCP - General 04/25/22
--- OUTSIDE RECORDS SUMMARY | 2025-05-10 11:56 | XMS_ITS | Data Portability ---
Author Organization [facility] [employer], Main Office Address [address] [place] [address] Care Team Providers Care Architectural Representative Name Role Phone АНДРЕЙ NICHO Lead Manufacturing Engineer MAINOR RIVER Primary Care Provider [phone] Assessment No assessment recorded. Plan of Treatment [...] ate patho logy repor t. Not Available [facility] (Lab) [address] [place], [address], 02/15/2025 12:29:04 11/27/19 25 10/13/2024 CT, sinus es, w/o contr ast No observ ation record ed. [facility] [address], [place], [address], 11/30/2024 08:22:54 11/27/19 25 11/27/2024 CT, sinus es, w/o contr ast No observ ation record ed. [facility] Not Available 2024 13:23:57 Result Notes None recorded. Problems Name Problem SNOMED Code Status Onset Date Resolution Date Notes Provider Name and Address Organization Details Recorded Time Numbness and tingling sensation of skin 690401967299 Active 2017 Not Available [facility] 3 19:46:48 Wears glasses 822563041 Active 2017 Not Available [facility] 3 19:46:48 Malignant tumor of breast 544129612 Active 2017 x2 Not Available [facility] 3 19:46:48 Dyspnea 159709361 Active 2017 Not Available [facility] 3 19:46:48 Neuropathy 647419477 Active 2017 Not Available [facility] 3 19:46:48 Impairment of balance 841802913 Active 2017 Not Available [facility] 3 19:46:48 Porokerato sis 257352170 Active 2017 Not Available [facility] 3 19:46:48 Arterioscl erosis of carotid artery 6071279751162 03 Active 2017 Not Available [facility] 3 19:46:48 Seasonal allergy 944172461 Active 2017 Not Available [facility] 3 19:46:48 Staphyloco ccal infectious disease 80407063 Active 2017 on R arm Not Available [facility] 3 19:46:48 Swelling 70234754 Active 2017 Not Available [facility] 3 19:46:48 Chronic maxillary sinusitis 17589590 Active 2024 Nicho Farah MD [address] [place] [address], [facility] [address], [place], [address] , [facility] [employer] [facility] 10:48:33 Chronic ethmoidal sinusitis 28814126 Active 2024 Nicho Farah MD [address] [facility], [facility] [address], [place], [address] , [facility] [employer] [facility] 5 10:48:41 Chronic frontal sinusitis 02536644 Active 2024 Nicho Farah MD [address] [facility], [facility] [address], [place], [address] , [facility] [employer] [facility] 5 10:48:49 Chronic sinusitis 63350889 Active 2024 Shital wilkinson, [facility] [employer] [facility] 10:07:30 Problem Notes None recorded. Procedures Surgical History Date Name Laterality Status Provider Name and Address Organization Details Recorded Time ENDOSCOPY, NASAL/SINUS, WITH FRONTAL SINUS EXPLORATION (SURG) completed Aliyah Lucero RN [facility] [employer] [facility] 02/18/2025 12:24:26 Imaging Results None recorded. Procedure [...] Available Not Available Not Available Fluzone High-Dose 2950-1068 (PF) 180 mcg/0.5 mL intramuscul ar syringe [...] Address Organization Details Last Updated DateTime 12/10/2024 34717.05 g 31.6 kg/m2 175.26 cm 98 [degF] Aliyah Lucero RN [facility] [employer] [facility] 12/10/2024 10:30:57 Date Recorded Body height Body temperature Body mass index (BMI) Body weight Provider Name and Address Organization Details Last Updated DateTime 02/18/2025 175.26 cm 97.6 [degF] 30.9 kg/m2 66730.24 g Aliyah Lucero RN [facility] [employer] [facility] 02/18/2025 11:11:58 Social History None recorded. Functional [...] SNOMED-CT Code Diagnosis ICD10 Code Diagnosis Note [id number] Nicho Farah MD [facility] [place] [address] [place] [address] 12/10/2024 10:19:01 12/10/2024 12:24:38 Chronic maxillary sinusitis 72846493 J32.0 Chronic et hmoidal sinusitis 12300698 J32.2 Chronic fr ontal sinusitis 27230596 J32.1 [id number] Nicho Farah MD [facility] [place] [address] [place] [address] 02/18/2025 10:54:30 02/18/2025 11:41:24 Postoperative visit [id number] Z48.89 02/08/2025 postoperat barbara from a bilateral [...] ID Guarantor Name 12/10/2024 1 [employer] (POS) [id number] Charly Pulido [id number] Damien Pulido 02/18/2025 1 [place] Damien Pulido [id number] Damien Pulido 02/18/2025 2 [employer] (MEDICARE SUPPLEMENT) PLAN F Charly Pulido [id number] Damien Pulido Notes Date Note Type Note Provider Name and Address Organization Details Recorded Time 12/10/2024 text/html This patient has a 1 year history of chronic cough. She was evaluated by an director of leadership development who found allergies to trees. A sinus CT demonstrated pansinusitis and left septal deviation. She has been on antibiotics without improvement. Nicho Farah MD [address] [facility], [facility] [address], [place], [address], [employer] [facility] [employer] 12/10/2024 10:49:31 02/18/2025 text/html this patient presents to the office for a postoperative visit from a bilateral maxillary antrostomy, ethmoidectomy, and frontal sinus exploration with navigation that was completed on 02/08/2025. She reports use of saline rinses. She has not started blowing her nose at this time. Denies any complaints. MILI Bloom [address] [facility], [address], [place], [address], [employer] [facility] [employer] 02/18/2025 11:40:46 OBGyn Episode No OBEpisode recorded.
--- OUTSIDE RECORDS SUMMARY | 2025-05-10 11:56 | XMS_ITS | Clinical Summary ---
Author Organization [facility] Address [address], [address] [place] [address] Phone Care Team Providers Care Control Room Tender Name Role Phone Unavailable Primary Care Provider Unavailabl e Allergies No known active allergies Medications furosemide (LASIX) 40 MG Tablet TAKE 1 TABLET BY ORAL ROUTE EVERY DAY 2 6 Active SYNTHROID 125 MCG Tablet TAKE 1 TABLET BY ORAL ROUTE EVERY DAY 2 6 Active montelukast (SINGULAIR) 10 MG Tablet Take 10 mg by mouth daily. 1 6 Active CREON [address] Particles TAKE ONE CAPSULE [...] patient's age to complete this topic Insurance [employer]
--- OUTSIDE RECORDS SUMMARY | 2025-05-10 11:56 | XMS_ITS ---
Author Organization [facility] Address [address], [address] [place] [address] Phone Care Team Providers Care Timber Sizer Operator Name Role Phone Unavailable Primary Care [...]
--- OUTSIDE RECORDS SUMMARY | 2025-05-10 11:56 | XMS_ITS | Encounter Summary ---
Author Organization [facility] Address [address] [place] [address] Care Team Providers Care First Crusher Name Role Phone Ankit Villafuerte DO Primary Care Provider [phone] Encounter Details Date Type Department Care Team (Late Contact Info) Description 2019 Chart Note [facility] Radiation Therapy [address] [place] [address] [place] [address] [place] [address] Social History Tobacco Use Types Packs/Day Years Used Date Smoking Tobacco: Never Alcohol Use Standard Drinks/Week Comments Yes 0 (1 standard drink = 0.6 oz pur e alcohol) Comments No Sex and Gender Information Value Date Recorded Sex Assigned at Not on file 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 Gender Identity Not on file Sexual Orientation Not on file documented as of this encounter Plan of Treatment Upcoming Encounters Date Type Department Care Team (Late Contact Info) Description 08/27/2025 10:30 AM CDT Office Visit [facility] Oncology and Hematology - [place] [address] [facility] [address] [place] [address] Lj Fam MD [address] [facility] [address] [place] [address] documented as of this encounter Visit Diagnoses Not on filedocumented in this encounter Care Teams First Crusher Relationship Specialty Start Date End Date Ankit Villafuerte DO [address] [facility] [address] [facility] [address] [place] [address] PCP - General Internal Medicine 07/30/24 documented as of this encounter
--- OUTSIDE RECORDS SUMMARY | 2025-05-10 11:56 | XMS_ITS | Clinical Summary ---
Author Organization [facility] Address [facility] [place] [address] Care Team Providers Care Airborne Electronics Analyst Name Role Phone Noy Ankit Stephens DO Primary Care Provider [phone] Allergies No known active allergies Medications cholecalciferol [...] Encounters Date Type Department Care Team Description 04/28/2025 External Device Data [facility] ABSTRACTION Provider, Abstract 03/31/2025 External Device Data [facility] ABSTRACTION Provider, Abstract 03/30/2025 External Device Data [facility] ABSTRACTION Provider, Abstract 02/23/2025 11:45 AM CDT Office Visit [facility] Oncology and [facility] [address] [place] [address] Lj Fam MD Malignant neoplasm of upper-outer quadrant of right breast in female, estrogen receptor positive (CMS/HCC) (Primary Dx); Visit for screening mammogram 02/17/2025 Orders Only [facility] Oncology and [facility] [address] [place] [address] Lj Fam MD from Last 3 Months [...] on file 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 Gender Identity Not on file Sexual Orientation [...] 11:32 AM CDT Height 175.3 cm (5' 9) 07/20/2022 8:43 AM CDT Body Mass Index 31.1 07/20/2022 8:43 AM CDT Plan of Treatment Upcoming Encounters Date Type Department Care Team (Late st Contact Info) Description 08/27/2025 10:30 AM CDT Office Visit [facility] Oncology and Hematology - [place] [address] [facility] [address] [place] [address] Lj Fam MD [address] [facility] [address] [place] [address] Health Maintenance Due Date Last [...] Diagnosis Comments CANCER ANTIGEN 15-3 Routine 02/15/2025 1:27 PM CDT MAMMO SCREENING BILAT Routine 07/20/2024 2:42 PM CDT XR DEXA BONE DENSITY AXIAL 1 OR MORE SITES Routine 07/13/2021 Osteoporosis due to aromatase inhibitor from Last 3 Months or Most Recently Relevant to Health Maintenance Results * CANCER ANTIGEN 15-3 (02/15/2025 1:27 PM CDT) Blood Lj Fam MD CHEMISTRY ORDERABLES Final Resu [...] Maintenance Insurance MEDICARE PART A AND B [employer] [facility] [place] [address] MEDICARE PART A AND B [employer] [facility] Care Teams Airborne Electronics Analyst Relationship Specialty Start Date End Date Ankit Villafuerte DO [address] [facility] [address] [facility] [address] [place] [address] PCP - General Internal Medicine 07/30/24
== END 2025-05-10 11:36 | disposition home or self-care (01) ==
PROVIDERS: PCP Internal Medicine; Visit Provider Nurse Practitioner Family
DX: J47.9 Bronchiectasis, uncomplicated (principal)
CPT/HCPCS: 87015; 87102; 87116; 87206

== ENCOUNTER 2025-07-15 16:25 | Emergency (ER) | payer MEDICARE, SELFPAY ==
--- NOTE | ~2025-07-15 | XR_ITS ---
XR chest 2V 07/15/2025 17:02 Indication: Weakness with cough Procedure: 2 view chest Comparison: 04/03/2025 Findings: There is posterior basilar airspace disease, consistent with pneumonia. Shallow inspiration. There are healed left rib fractures. Possible small effusion. No pneumothorax. Impression: 1: Bibasilar airspace disease, best seen posteriorly on lateral view. Findings compatible with pneumonia. Reviewed, dictated and finalized at location O. Impression: 1: Bibasilar airspace disease, best seen posteriorly on lateral view. Findings compatible with pneumonia.
--- NOTE | ~2025-07-15 | CT_ITS ---
EXAMINATION: CT chest abdomen pelvis w con DATE: 07/15/2025 20:29 CDT INDICATION: Hypercalcemia TECHNIQUE: Computed tomography (CT) of the chest, abdomen, and pelvis was performed with 100 cc Omnipaque 350 intravenous contrast. The dose-length product was 1075.20 mGy-cm. Automated exposure control and iterative reconstruction technique were employed. COMPARISON: CT dated 05/04/2025 FINDINGS: CHEST CT: Status post right mastectomy. Small pleural effusions. There is scarring in the right upper lobe anteriorly, possibly radiation therapy change. No thoracic lymphadenopathy. Low lung volumes right chest status post partial right pneumonectomy. Elevated right diaphragm. Findings compatible with prior right breast cancer. Clinically correlate. There are left sixth and eighth rib fractures. ABDOMEN/PELVIS CT: The liver, spleen, pancreas, adrenal glands are unremarkable. Calcified granulomas in the spleen. Nonobstructive bowel gas pattern. Status post hysterectomy. No significant vascular abnormality. No lymphadenopathy. There are scattered sclerotic lesions of the proximal femurs, pelvis and throughout the spine as well as a few scattered sclerotic lesions of the ribs. These findings are compatible with metastatic disease. IMPRESSION: 1. Status post right mastectomy with partial right pneumonectomy and scarring in the right upper lobe, presumably secondary to radiation therapy. Findings compatible with a presumed breast cancer. Clinically correlate. 2: Widespread osseous metastases. 3: Left sixth and eighth rib fractures. 4: Small pleural effusions. Reviewed, dictated and finalized at location O. IMPRESSION: 1. Status post right mastectomy with partial right pneumonectomy and scarring i n the right upper lobe, presumably secondary to radiation therapy. Findings com patible with a presumed breast cancer. Clinically correlate. 2: Widespread osseous metastases. 3: Left sixth and eighth rib fractures. 4: Small pleural effusions.
--- NOTE | ~2025-07-15 | CT_ITS ---
EXAMINATION: CT lumbar spine wo con DATE: 07/15/2025 20:36 INDICATION: Concern for bone metastases. TECHNIQUE: Computed tomography (CT) of the lumbar spine was performed without intravenous contrast. The dose-length product was 870.82 mGy-cm. COMPARISON: CT dated 07/15/2025 FINDINGS: There are extensive sclerotic lesions of the pelvis and the visualized aspects of T11 and T12, consistent with metastatic disease. No fracture is identified. There is disc narrowing at L3-4. There is multilevel facet hypertrophy. Small pleural effusions. IMPRESSION: 1. Widespread osseous metastases of the visualized osseous structures. Reviewed, dictated and finalized at location O.
--- NOTE | ~2025-07-15 | CT_ITS ---
EXAMINATION: CT brain wo con DATE: 07/15/2025 20:36 INDICATION: Altered mental status TECHNIQUE: Computed tomography (CT) of the head was performed without intravenous contrast. The dose-length product was 870.82 mGy-cm. Automated exposure control and iterative reconstruction technique were employed. COMPARISON: None FINDINGS: Generalized atrophy. There are scattered mild periventricular and subcortical white matter changes, most likely related to small vessel ischemic disease (microangiopathy). No ventriculomegaly or midline shift. Basilar cisterns are patent. There is intracranial atherosclerosis. No acute hemorrhage, infarction, mass or mass effect. There is a possible fracture medial wall of the right maxillary sinus. No definite blowout fracture of the orbits. There is fluid with punctate foci of gas on dependently in the right maxillary sinus, likely hemorrhage. IMPRESSION: 1. No acute intracranial abnormality. 2: Fluid containing nondependent gas in the right maxillary sinus, suspicious for hemorrhage. Small fracture medial wall of the right maxillary sinus is not excluded. Correlate for history of trauma. Reviewed, dictated and finalized at location O. IMPRESSION: 1. No acute intracranial abnormality. 2: Fluid containing nondependent gas in the right maxillary sinus, suspicious f or hemorrhage. Small fracture medial wall of the right maxillary sinus is not e xcluded. Correlate for history of trauma.
--- OUTSIDE RECORDS SUMMARY | 2025-07-15 16:28 | XMS_ITS | Encounter Summary ---
Author Organization [facility] Address [address] [place] [address] Care Team Providers Care Metal Building Assembler Name Role Phone Ankit Villafuerte DO Primary Care Provider Encounter Details Date Type Department Care Team (Late Contact Info) Description 2019 Chart Note [facility] Radiation Therapy [address] [place] [address] [place] [address] [place] [address] Social History Tobacco Use Types Packs/Day Years Used Date Smoking Tobacco: Never Alcohol Use Standard Drinks/Week Comments Yes 0 (1 standard drink = 0.6 oz pur e alcohol) Comments No Sex and Gender Information Value Date Recorded Sex Assigned at Not on file 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 Gender Identity Not on file Sexual Orientation Not on file documented as of this encounter Plan of Treatment Upcoming Encounters Date Type Department Care Team (Late Contact Info) Description 08/27/2025 10:30 AM CDT Office Visit [facility] Oncology and Hematology - Jose [address] [facility] [address] [place] [address] Lj Fam MD [address] [facility] [address] [place] [address] documented as of this encounter Visit Diagnoses Not on filedocumented in this encounter Care Teams Metal Building Assembler Relationship Specialty Start Date End Date Ankit Villafuerte DO [address] [facility] [address] [facility] [address] [place] [address] PCP - General Internal Medicine 07/30/24 documented as of this encounter
--- OUTSIDE RECORDS SUMMARY | 2025-07-15 16:28 | XMS_ITS | Clinical Summary ---
Author Organization [facility] Address [facility] [place] [address] Care Team Providers Care Facility Maintenance Technician Name Role Phone Noy Ankit Stephens DO Primary Care Provider [phone] Allergies No known active allergies Medications cholecalciferol [...] Encounters Date Type Department Care Team Description 07/13/2025 External Device Data [facility] ABSTRACTION Provider, Abstract 06/29/2025 External Device Data [facility] ABSTRACTION Provider, Abstract 06/22/2025 External Device Data [facility] ABSTRACTION Provider, Abstract 06/14/2025 Orders Only [facility] Oncology and Hematology - Jose [address] [place] [address] Lj Fam MD Osteopenia of multiple sites (Primary Dx) 05/26/2025 External Device Data STL ABSTRACTION Provider, Abstract 05/25/2025 External Device Data STL ABSTRACTION Provider, Abstract 04/28/2025 External Device Data STL ABSTRACTION Provider, [...] on file 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 [address] [facility] [address] [place] [address] Lj Fam MD [address] [facility] [address] [place] [address] Health Maintenance Due Date Last Done Comments FIT-DNA Q 3 years 1997 FIT/FOBT Q 1 year 1997 Flex Sig/CT Colonography Q 5 years 1997 PNEUMOCOCCAL VACCINE 50+ YEA RS (1 of 1 - PCV) 2002 ZOSTER VACCINE (1 of 2) 2002 INFLUENZA VACCINE (#1) 2025 BREAST CANCER SCREENING 07/20/2025 07/20/20 24, 07/20/2024, [...] Maintenance Insurance MEDICARE PART A AND B [employer] SUPP MEDICARE PART A AND B [employer] SUPP Care Teams Facility Maintenance Technician Relationship Specialty Start Date End Date Ankit Villafuerte DO [address] [facility] [address] [place] [address] PCP - General Internal Medicine 07/30/24
--- OUTSIDE RECORDS SUMMARY | 2025-07-15 16:28 | XMS_ITS ---
Author Organization [facility] Address [address] [place] [address] Phone Care Team Providers Care Sports Marketer Name Role Phone Unavailable Primary Care Provider [...]
--- OUTSIDE RECORDS SUMMARY | 2025-07-15 16:28 | XMS_ITS | Clinical Summary ---
Author Organization [facility] Address [address] [place] [address] Phone Care Team Providers Care Gag Writer Name Role Phone Unavailable Primary Care Provider Unavailabl e Allergies No known active allergies Medications furosemide (LASIX) 40 MG Tablet TAKE 1 TABLET BY ORAL ROUTE EVERY DAY 2 6 Active SYNTHROID 125 MCG Tablet TAKE 1 TABLET BY ORAL ROUTE EVERY DAY 2 6 Active montelukast (SINGULAIR) 10 MG Tablet Take 10 mg by mouth daily. 1 6 Active CREON [address] Particles TAKE ONE CAPSULE [...] Health Maintenance Due Date Last Done Comments Hepatitis C Virus (HCV) Screening 1950 TdaP Immunization 1952 SARS-COV-2 Immunization (#1) 1957 Mammogram 1962 Pneumococcal Immunization (5 0+ years) (1 of 2 - PCV) 1971 Zoster Immunization (1 of 2) 1971 Cologuard 1997 Colonoscopy 1997 Colorectal Cancer Screening 1997 Immunochemical Fecal Occult Blood 1997 Respiratory Syncytial Virus (RSV) Immunization (Adult) (1 - Risk 60-74 years 1-dose series) 2012 Influenza Immunization (#1) 2025 Hepatitis B Immunization Aged Out No longer eligible based on patient's age to complete this topic Human Papillomavirus (HPV) Immunization Aged Out No longer eligible b ased on patient's age to complete this topic Meningococcal Immunization (ACWY) Aged Out No longer eligible based on patient's age to complete this topic Rotavirus Immunization Aged Out No lo nger eligible based on patient's age to complete this topic Insurance [employer]
--- OUTSIDE RECORDS SUMMARY | 2025-07-15 16:28 | XMS_ITS | Clinical Summary ---
Author Organization [facility] Address [address] [place] [address] Care Team Providers Care Business Services Vice President Name Role Phone Chris Avalos PA-C Primary Care Provide r Source Comments [facility],non-owned Affiliates and Associated Physician Practices is amultiple site organization consisting of ambulatory clinics and hospital sitesin [place], [place], [place] and [place]. This disclosure is being madepursuant to the Care Everywhere program and may not contain all information available regarding this patient. Last updated 18.[facility] [place] Allergies No known active allergies Medications * Be aware that medications may not be up to date on this document. Alwaysverify current medications with the patient. 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 Gender Identity Not on file Sexual Orientation [...] of 2) 2002 SCREENING FOR DIABETES 04/25/2022 DEPRESSION SCREENING 11/11/2024 COVID-19 VACCINE (3 - 2024-2 6 season) 2025 01/07/2021, 12/10/2020 INFLUENZA VACCINE (#1) 2025 07/13/2020 Respiratory Syncytial Virus (RSV) Vaccine [...] this topic Medical Devices Implanted Type Area Tassel Making Machine Operator Device Identifier Shelf Expiration Date Model / Serial / Lot Screw Implanted:Qty: 1 on 04/30/2022 by Michel Mendieta MD at [facility] Right: Wrist [employer] [id number] / / Screw 2.7mm 20mm Mldir Nonster Bone Implanted:Qty: 1 on 04/30/2022 by Michel Mendieta MD at [facility] Right: Wrist [employer] [id number] / / Plate Implanted:Qty: 1 on 04/30/2022 by Michel Mendieta MD at [facility] Right: Wrist [employer] [id number] / / Screw 2.7mm 14mm Lopro Nonster Bone Lf Implanted:Qty: 2 on 04/30/2022 by Michel Mendieta MD at [facility] Right: Wrist [employer] [id number] / / Screw Implanted:Qty: 1 on 04/30/2022 by Michel Mendieta MD at [facility] Right: Wrist [employer] [id number] / / Screw 2.7mm 20mm Crsslck Tpr Head 3 Ld Implanted:Qty: 3 on 04/30/2022 by Michel Mendieta MD at [facility] Right: Wrist [employer] [id number] / / Screw 2.7mm 22mm Lck Jesse Nonster Bone Implanted:Qty: 2 on 04/30/2022 by Michel Mendieta MD at [facility] Right: Wrist [employer] [id number] / / Explanted Type Area Tassel Making Machine Operator Device Identifier Shelf Expiration Date Model / Serial / Lot Wire [id number] .062in 6in Fx 2 Troc Explanted:Qty: 2 on 04/30/2022 by Michel Mendieta MD at [facility] Right: Wrist [employer] [id number] / / Wire K 1.6mm Ss Fx Nonster Explanted:Qty: 3 on 04/30/2022 by Michel Mendieta MD at [facility] Right: Wrist [employer] [id number] / / Screw 2.7mm 20mm Crsslck Lopro Nonlock Explanted:Qty: 1 on 04/30/2022 by Michel Mendieta MD at [facility] Right: Wrist [employer] [id number] / / Screw 2.7mm 20mm Crsslck Lopro Nonlock Explanted:Qty: 1 on 04/30/2022 by Michel Mendieta MD at [facility] Right: Wrist [employer] [id number] / / Insurance MEDICARE [facility] [employer] [address] [place] [address] MEDICARE Care Teams Business Services Vice President Relationship Specialty Start Date End Date Chris Avalos PA-C [address] [place] [address] PCP - General 04/25/22
--- OUTSIDE RECORDS SUMMARY | 2025-07-15 16:28 | XMS_ITS | Encounter Summary ---
Author Organization [facility] Address 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 Gender Identity Not on file Sexual Orientation Not on file documented as of this encounter Plan of Treatment Upcoming Encounters Date Type Department Care Team (Late st Contact Info) Description 08/27/2025 10:30 AM CDT Office Visit [facility] Oncology and Hematology - [place] [address] [place] [address] [address] [place] [address] Lj Fam MD [address] [facility] [address] [place] [address] documented as of this encounter Visit Diagnoses Not on filedocumented in this encounter Care Teams Private Pilot Relationship Specialty Start Date End Date Ankit Villafuerte DO [address] [facility] [address] [place] [address] PCP - General Internal Medicine 07/30/24 documented as of this encounter
--- NOTE | 2025-07-15 16:40 | ECG_ITS ---
Test Date: 2025-07-15 16:35:28 Measurements Intervals [place] Rate: 103 P: 62 [place]: 208 QRS: 4 QRSD: 99 T: 47 QT: 346 QTc: 455 Interpretive Statements SINUS TACHYCARDIA POSSIBLE LEFT ATRIAL ENLARGEMENT [-0.1mV P-WAVE IN V1/V2] ABNORMAL RHYTHM ECG Compared to ECG 12/21/2024 15:21:36 Sinus rhythm no longer present Electronically Signed On 07-16-2025 12:14:19 CDT by Spenser Delcid M.D.
[2025-07-15 16:41] VITALS: BP 139/88; PULSE 108; RESP 21; TEMP 36.7; O2SAT 99
[2025-07-15 16:47] VITALS: PULSE 106
[2025-07-15 16:59] LABS: Hematocrit 30.1 % (37.0-47.0); Hemoglobin 9.7 g/dL (12.0-15.0); Immature Granulocyte Percent A 1.5 % (0-0.5); Lymphocytes Absolute Auto 0.81 K/mm3 (0.9-3.2); Mean Corpuscular HGB Conc 32.2 g/dl (32-36); Mean Corpuscular Hemoglobin 32.7 pg (26-34); Mean Corpuscular Volume 101.3 fl (80-100); Nucleated Red Blood Cells Absolute Auto 0.000 K/mm3 (0.0-0.012); Nucleated Red Blood Cells Perc 0.0 % (0.0-0.2); Platelet Count Result 215 k/mm3 (150-375); Red Blood Count 2.97 M/mm3 (4.2-5.4); White Blood Count 6.6 K/mm3 (4.5-10.0)
--- NOTE | 2025-07-15 17:15 | ED.SOB ---
HPI - SOB/Dyspnea General Chief Complaint: Neuro Symptoms/Deficit <Kat Dorman APRN - Last Filed: 07/16/25 03:05> Stated Complaint: brain fog, dropping things since yesterday <Kat Dorman APRN - Last Filed: 07/16/25 03:05> Time Seen by Provider: 07/15/25 17:00 <Kta Dorman APRN - Last Filed: 07/16/25 03:05> History of Present Illness HPI Narrative: Pt is a 75-year-old female who presents to the ER with complaints of aching lungs, decreased strength, congestion, wheezing, and ?my equilibrium is off. She reports her symptoms started approximately 2 nights ago. Patient reports she had pneumonia 2 months ago and sees a shrimp cleaner, but they have been unable to determine what is causing her chronic cough. She reports she uses a nebulizer twice a day at home. Patient denies smoking cigarettes. She denies any recent fevers, headache, one-sided weakness/tingling/numbness. Patient sources a history of cancer x 3, chemo, and a blood clot. <aKt Dorman APRN - Last Filed: 07/16/25 03:05> Related Data Home Medications: Home Medications ?Medication ?Instructions ?Recorded ?Confirmed ?Last Taken ?Type gabapentin 800 mg tablet 800 mg PO BID 05/20/23 05/06/25 03/30/25 History loratadine 10 mg tablet (Claritin) 10 mg PO DAILY 11/25/23 05/06/25 03/25/25 History ascorbic acid (vitamin C) 1,000 mg 1 g PO DAILY 03/19/25 05/06/25 03/25/25 History capsule biotin 10,000 mcg capsule (Rashad 10,000 mcg PO DAILY 03/19/25 05/06/25 03/25/25 History Biotin) calcium 600 mg capsule 600 mg PO DAILY 03/19/25 05/06/25 Unknown History geriatric multivitamin-min 1 tablet PO DAILY 03/19/25 05/06/25 03/25/25 History letrozole 2.5 mg tablet 2.5 mg PO QAM 03/19/25 05/06/25 03/29/25 History guaifenesin 1,200 mg tablet, 1,200 mg PO BID 03/30/25 05/06/25 03/25/25 History extended release 12 hr (Mucinex) warfarin 2 mg tablet See Rx Instructions .Route .COMPLEX 03/30/25 05/06/25 03/25/25 History <Kat Dorman APRN - Last Filed: 07/16/25 03:05> Allergies/Adverse Reactions: Allergies Allergy/AdvReac Type Severity Reaction Status Date / Time No Known Allergies Allergy Verified 07/15/25 16:41 <Kat Dorman APRN - Last Filed: 07/16/25 03:05> Review of Systems Review of Systems: All systems reviewed & are unremarkable except as noted in HPI and below <Kat Dorman APRN - Last Filed: 07/16/25 03:05> [facility] Past Medical History Medical History: Medical History Restless leg syndrome Chronic anticoagulation Superior vena cava thrombosis Cervical cancer status post radiation and chemotherapy Degenerative joint disease Chronic obstructive pulmonary disease suspected though no formal diagnosis per patient report Allergies Exocrine pancreatic insufficiency Osteoporosis due to aromatase inhibitor Hypothyroidism, unspecified 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 status post mastectomy and neoadjuvant chemotherapy, radiation, and hormone therapy <Kat Dorman APRN - Last Filed: 07/16/25 03:05> Surgical History Surgical History: Surgical History History of open reduction and internal fixation (ORIF) procedure repair right wrist fracture History of arthroscopy of both knees History of cholecystectomy History of appendectomy History of right mastectomy (11/2016) <Kat Dorman APRN - Last Filed: 07/16/25 03:05> Family History Family History: Family History Father Family history of diabetes mellitus in first degree relative Family history of congestive heart failure Mother Family history of malignant neoplasm of breast in first degree relative Other Family history of malignant neoplasm <Kat Dorman APRN - Last Filed: 07/16/25 03:05> Social History Social History: Social History Social History: Surrogate medical decision maker: Charly Pulido, spouse. Code status: FULL CODE. Smoking status: Never smoker Second hand tobacco smoke exposure: No Alcohol intake: never Alcohol use details: Social alcohol use in the past, non since 2013. Substance use: never Substance use type: does not use Do You Feel Safe in your Home?: Yes Lack of Transportation: No Lack of Food: Never True Current Housing: I Have Housing Concerned About Future Housing: No Difficulty Paying Gas/Electric Bills: No Difficulty Paying for Meds: No Currently Unemployed: No Education: Associate Degree Difficulty w/ Childcare or Family Care: No Living arrangements: with family Additional living arrangements comments: [facility] Spiritual care concerns: No <Kat Dorman APRN - Last Filed: 07/16/25 03:05> Exam Narrative: GENERAL: Well appearing, well-nourished, non-toxic, in no acute distress. HEAD: Normocephalic, atraumatic. NECK: Supple. No adenopathy, no masses. RESPIRATORY: Airway patent, respirations mildly labored. auscultation coarse lung sounds bilaterally, + wheezing. CARDIOVASCULAR: Tachycardia without murmurs, rubs, or gallops. Peripheral pulses 2+ and equal bilaterally. Mildly lower extremity edema. ABDOMINAL: Soft, nontender, nondistended, no hepatosplenomegaly. Normoactive BS. MUSCULOSKELETAL: Moves all extremities. Strength/ROM intact without gross deformities. SKIN: Warm, dry, normal color. No rashes. NEURO: A&O X3. Speech clear. Cranial nerves II-XII intact. No ataxic movements. PSYCHIATRIC: Appropriate mood and affect. Normal interaction. <Kat Dorman APRN - Last Filed: 07/16/25 03:05> Course GLASS TECHNICIAN/PA Physician Supervision This visit was performed by both a physician and an APC. For this patient encounter, I reviewed the GLASS TECHNICIAN or PA documentation, treatment plan, and medical decision making and had [id number] time with this patient. I performed all aspects of the MDM as documented. <Mahsa Salinas MD - Last Filed: 07/16/25 20:34> Vital Signs Vital signs: Vital Signs Temperature 98.0 F 07/15/25 16:41 Pulse Rate 108 H 07/15/25 16:41 Respiratory Rate 21 H 07/15/25 16:41 Blood Pressure 139/88 07/15/25 16:41 Pulse Oximetry 99 07/15/25 16:41 Oxygen Delivery Room Air 07/15/25 16:41 Temperature 98.0 F 07/15/25 16:41 Pulse Rate 87 07/16/25 05:00 Respiratory Rate 17 07/16/25 05:00 Blood Pressure 105/64 07/16/25 05:00 Pulse Oximetry 97 07/16/25 05:00 Oxygen Delivery Room Air 07/15/25 16:41 <Kat Dorman, STALLION MANAGER - Last Filed: 07/16/25 03:05> Vital Signs Temperature 98.0 F 07/15/25 16:41 Pulse Rate 108 H 07/15/25 16:41 Respiratory Rate 21 H 07/15/25 16:41 Blood Pressure 139/88 07/15/25 16:41 Pulse Oximetry 99 07/15/25 16:41 Oxygen Delivery Room Air 07/15/25 16:41 Temperature 98.0 F 07/15/25 16:41 Pulse Rate 87 07/16/25 05:00 Respiratory Rate 17 07/16/25 05:00 Blood Pressure 105/64 07/16/25 05:00 Pulse Oximetry 97 07/16/25 05:00 Oxygen Delivery Room Air 07/15/25 16:41 <Mahsa Salinas MD - Last Filed: 07/16/25 20:34> MDM - SOB/Dyspnea MDM Narrative Medical decision making narrative: Pt is a 75-year-old female who presents to the ER with complaints of aching lungs, decreased strength, congestion, wheezing, and ?my equilibrium is off.She reports her symptoms started approximately 2 nights ago. Patient reports she had pneumonia 2 months ago and sees a shrimp cleaner, but they have been unable to determine what is causing her chronic cough. She reports she uses a nebulizer twice a day at home. Patient denies smoking cigarettes. She denies any recent fevers, headache, one-sided weakness/tingling/numbness. Patient sources a history of cancer x 3, chemo, and a blood clot. Labs Ordered: CBC, CMP, coags, chemistry, CRP, proBNP, TSH, UA, COVID/flu/RSV swab Imaging Ordered: Chest x-ray, CT brain, CT lumbar spine, CT chest abdomen pelvis Medications Ordered: DuoNeb, azithromycin 500 mg IM, 2.7 L normal saline IV bolus, morphine 2 mg IV, ceftriaxone 1 g IV Results: Patient's CBC indicates red blood cell count 2.97, hemoglobin of 9.7, hematocrit of 30.1%. Her coags indicated a PT of 39.1 seconds, INR 4.3, and APTT of 66.2 seconds. Patient's chemistry indicates a sodium of 135, anion gap of 3, BUN of 27, creatinine of 1.24, GFR 42, calcium of 14.7, magnesium of 1.5, AST of 52. Her CRP is 5.2. Patient's proBNP was 2040. Her TSH was 11.0. Patient's urinalysis indicates she has a urinary tract infection. Her respiratory panel was negative for influenza, RSV, COVID. Her CT chest abdomen pelvis scan indicates 1. Status post right mastectomy with partial right pneumonectomy and scarring in the right upper lobe, presumably secondary to radiation therapy. Findings compatible with a presumed breast cancer. Clinically correlate. 2: Widespread osseous metastases. 3: Left sixth and eighth rib fractures. 4: Small pleural effusions. Patient's head CT indicates Generalized atrophy. There are scattered mild periventricular and subcortical white matter changes, most likely related to small vessel ischemic disease (microangiopathy). No ventriculomegaly or midline shift. Basilar cisterns are patent. There is intracranial atherosclerosis. No acute hemorrhage, infarction, mass or mass effect. There is a possible fracture medial wall of the right maxillary sinus. No definite blowout fracture of the orbits. There is fluid with punctate foci of gas on dependently in the right maxillary sinus, likely hemorrhage. Patient's chest x-ray indicates Bibasilar airspace disease, best seen posteriorly on lateral view. Findings compatible with pneumonia. Diagnosis: Widespread osseous metastases, Hypercalcemia, urinary tract infection, chronic anticoagulation, acute kidney injury, Right maxillary fracture Consults: [facility] CRITICAL CARE ADDENDUM: Indication: Pneumonia, hypercalcemia Time type: intermittent I provided a total of 55 minutes of critical care excluding separately billable procedures. This includes time w/ EMS, initial bedside evaluation, reviewing old records, review of testing done while under my care, discussion w/ the family, nurses, it systems analyst consultant and guiding the patient?s care while in the emergency department. Approximate time distribution: 15 minutes ? Initial evaluation, d/w involved parties, attempting to gather old records. 10 minutes ? Documenting medical record 10 minutes ? Review of results (EKGs, labs, imaging) 10 minutes ? Serial repeat bedside evaluation 10 minutes ? Discussing case with multiple providers Please see main chart for details. Excludes separately billable procedures. 183-patient's oxygen saturation is ranging in the low 90s to high 80s on room air. She will be placed on 2 L nasal cannula. Results of imaging and lab work shared with patient and their family. It was advised patient be admitted to the hospital for further evaluation and treatment. Patient and their family verbalized understanding and are in agreement with plan. Upon further discussion patient reports she fell approximately 2-3 weeks ago, but denies any pain following that event. 1914- Spoke with hospitalist who had concerns with admitting pt to this hospital as we may not have services pt requires. Will perform CT scans for further evaluation. 2099-Spoke with [facility] hospitalist, Dr. Bland, who agreed to admit patient to their step-down unit. 2399-[facility] transfer schulenburg called and requested an updated calcium level on patient. Results shared with [facility] who advises to continue giving patient IV fluids to treat her hypercalcemia. <Kat Dorman, STALLION MANAGER - Last Filed: 07/16/25 03:05> Differential Diagnosis Differential diagnosis: Likely acute exacerbation of chronic obstructive airways disease, congestive heart failure, community acquired pneumonia and asthma with exacerbation <Kat Dorman STALLION MANAGER - Last Filed: 07/16/25 03:05> Lab Data Attestation: I reviewed the patient's lab results. <Kat Dorman, STALLION MANAGER - Last Filed: 07/16/25 03:05> Result diagrams: 07/15/25 16:47 07/15/25 23:59 <Kat Dorman STALLION MANAGER - Last Filed: 07/16/25 03:05> Labs: Lab Results 07/15/25 07/15/25 07/15/25 Range/Units 16:47 17:34 19:34 WBC 6.6 (4.5-10.0) K/mm3 RBC 2.97 L (4.2-5.4) M/mm3 Hgb 9.7 L (12.0-15.0) g/dL Hct 30.1 L (37.0-47.0) % MCV 101.3 H (80-100) fl MCH 32.7 (26-34) pg MCHC 32.2 (32-36) g/dl RDW 16.9 H (11.5-14.5) % Plt Count 215 (150-375) k/mm3 MPV 9.8 (7.4-10.4) fl Immature Gran % (Auto) 1.5 H (0-0.5) % Neut % (Auto) 75.3 H (45.5-73.1) % Lymph % (Auto) 12.2 L (18.3-44.2) % [place] % (Auto) 9.1 H (2.6-8.5) % Eos % (Auto) 1.4 (0-4.4) % Baso % (Auto) 0.5 (0.2-1.2) % Lymph # (Auto) 0.81 L (0.9-3.2) K/mm3 [place] # (Auto) 0.6 (0.1-0.6) K/mm3 Eos # (Auto) 0.1 (0-0.3) K/mm3 Baso # (Auto) 0.0 (0.0-0.1) K/mm3 Abs Immat Gran (auto) 0.10 H (0.00-0.031) K/mm3 Absolute Neuts (auto) 5.0 (1.3-6.7) K/mm3 Absolute Nucleated RBC 0.000 (0.0-0.012) K/mm3 Nucleated RBC % 0.0 (0.0-0.2) % PT 39.1 H (11.1-14.7) Seconds INR 4.3 APTT 66.2 H (22.3-36.8) Seconds Sodium 135 L (137-145) mmol/L Potassium 3.5 (3.4-5.0) mmol/L Chloride 97 L (98-107) mmol/L Carbon Dioxide 33 H (22-30) mmol/L Anion Gap 5 (4-12) mmol/L BUN 34 H D (7-17) mg/dL Creatinine 1.27 H (0.7-1.0) mg/dL Estim Creat Clear Calc 42 ml/min Estimated GFR 41 L (59 - ) Glucose 106 (65-110) mg/dL Lactic Acid 1.5 (0.7-2.0) mmol/L Calcium 14.7 H* (8.4-10.2) mg/dL Magnesium 1.5 L (1.6-2.3) mg/dL Total Bilirubin 0.3 (0.2-1.3) mg/dL AST 52 H (14-36) U/L ALT 30 (6-35) U/L Alkaline Phosphatase 126 (38-126) U/L Troponin I < 0.012 (0.000-0.034) ng/mL C-Reactive Protein 5.2 H (<1.0) mg/dL NT-Pro-B Natriuret Pep 2040 H (19.9-100) pg/mL Total Protein 7.4 (6.3-8.2) g/dL Albumin 3.9 (3.5-5.1) g/dL TSH (Reflex) (0.465-4.68) uIU/mL Free T4 (0.78-2.19) ng/dL Total T3 (0.82-1.58) NG/ML Urine Color Yellow (Yellow) Urine Appearance Clear (Clear) Urine pH 5.5 (5.0-9.0) Ur Specific [place] 1.015 (1.001-1.035) Urine Protein Negative (Negative) mg/dL Urine Glucose (UA) Negative (Negative) mg/dL Urine Ketones Negative (Negative) mg/dL Ur Blood (Man) Negative (Negative) Urine Nitrate Positive H (Negative) Urine Bilirubin Negative (Negative) Urine Urobilinogen 0.2 (<2.0) mg/dL Leukocyte Esterase Rfl 2+ H (Negative) BELA/UL Urine RBC 0-2 (0-2) /hpf Urine WBC 51-100 H (0-3) /hpf Ur Squamous Epith Cells Occasional (Few) /hpf Urine Bacteria Rare /hpf Urine Casts 0-2 Influenza A (RT-PCR) Negative (Negative) Influenza B (RT-PCR) Negative (Negative) RSV (RT-PCR) Negative (Negative) SARS-CoV-2 RNA (RT-PCR) Negative (Negative) 07/15/25 07/15/25 Range/Units 19:42 23:59 WBC (4.5-10.0) K/mm3 RBC (4.2-5.4) M/mm3 Hgb (12.0-15.0) g/dL Hct (37.0-47.0) % MCV (80-100) fl MCH (26-34) pg MCHC (32-36) g/dl RDW (11.5-14.5) % Plt Count (150-375) k/mm3 MPV (7.4-10.4) fl Immature Gran % (Auto) (0-0.5) % Neut % (Auto) (45.5-73.1) % Lymph % (Auto) (18.3-44.2) % [place] % (Auto) (2.6-8.5) % Eos % (Auto) (0-4.4) % Baso % (Auto) (0.2-1.2) % Lymph # (Auto) (0.9-3.2) K/mm3 [place] # (Auto) (0.1-0.6) K/mm3 Eos # (Auto) (0-0.3) K/mm3 Baso # (Auto) (0.0-0.1) K/mm3 Abs Immat Gran (auto) (0.00-0.031) K/mm3 Absolute Neuts (auto) (1.3-6.7) K/mm3 Absolute Nucleated RBC (0.0-0.012) K/mm3 Nucleated RBC % (0.0-0.2) % PT (11.1-14.7) Seconds INR APTT (22.3-36.8) Seconds Sodium 135 L (137-145) mmol/L Potassium 3.4 (3.4-5.0) mmol/L Chloride 102 (98-107) mmol/L Carbon Dioxide 30 (22-30) mmol/L Anion Gap 3 L (4-12) mmol/L BUN 27 H (7-17) mg/dL Creatinine 1.24 H (0.7-1.0) mg/dL Estim Creat Clear Calc 43 ml/min Estimated GFR 42 L (59 - ) Glucose 105 (65-110) mg/dL Lactic Acid (0.7-2.0) mmol/L Calcium 13.3 H* (8.4-10.2) mg/dL Magnesium (1.6-2.3) mg/dL Total Bilirubin (0.2-1.3) mg/dL AST (14-36) U/L ALT (6-35) U/L Alkaline Phosphatase (38-126) U/L Troponin I (0.000-0.034) ng/mL C-Reactive Protein (<1.0) mg/dL NT-Pro-B Natriuret Pep (19.9-100) pg/mL Total Protein (6.3-8.2) g/dL Albumin (3.5-5.1) g/dL TSH (Reflex) 11.000 H (0.465-4.68) uIU/mL Free T4 1.11 (0.78-2.19) ng/dL Total T3 0.87 (0.82-1.58) NG/ML Urine Color (Yellow) Urine Appearance (Clear) Urine pH (5.0-9.0) Ur Specific [place] (1.001-1.035) Urine Protein (Negative) mg/dL Urine Glucose (UA) (Negative) mg/dL Urine Ketones (Negative) mg/dL Ur Blood (Man) (Negative) Urine Nitrate (Negative) Urine Bilirubin (Negative) Urine Urobilinogen (<2.0) mg/dL Leukocyte Esterase Rfl (Negative) BELA/UL Urine RBC (0-2) /hpf Urine WBC (0-3) /hpf Ur Squamous Epith Cells (Few) /hpf Urine Bacteria /hpf Urine Casts Influenza A (RT-PCR) (Negative) Influenza B (RT-PCR) (Negative) RSV (RT-PCR) (Negative) SARS-CoV-2 RNA (RT-PCR) (Negative) <Kat Dorman, STALLION MANAGER - Last Filed: 07/16/25 03:05> Lab Results 07/15/25 07/15/25 07/15/25 Range/Units 16:47 17:34 19:34 WBC 6.6 (4.5-10.0) K/mm3 RBC 2.97 L (4.2-5.4) M/mm3 Hgb 9.7 L (12.0-15.0) g/dL Hct 30.1 L (37.0-47.0) % MCV 101.3 H (80-100) fl MCH 32.7 (26-34) pg MCHC 32.2 (32-36) g/dl RDW 16.9 H (11.5-14.5) % Plt Count 215 (150-375) k/mm3 MPV 9.8 (7.4-10.4) fl Immature Gran % (Auto) 1.5 H (0-0.5) % Neut % (Auto) 75.3 H (45.5-73.1) % Lymph % (Auto) 12.2 L (18.3-44.2) % [place] % (Auto) 9.1 H (2.6-8.5) % Eos % (Auto) 1.4 (0-4.4) % Baso % (Auto) 0.5 (0.2-1.2) % Lymph # (Auto) 0.81 L (0.9-3.2) K/mm3 [place] # (Auto) 0.6 (0.1-0.6) K/mm3 Eos # (Auto) 0.1 (0-0.3) K/mm3 Baso # (Auto) 0.0 (0.0-0.1) K/mm3 Abs Immat Gran (auto) 0.10 H (0.00-0.031) K/mm3 Absolute Neuts (auto) 5.0 (1.3-6.7) K/mm3 Absolute Nucleated RBC 0.000 (0.0-0.012) K/mm3 Nucleated RBC % 0.0 (0.0-0.2) % PT 39.1 H (11.1-14.7) Seconds INR 4.3 APTT 66.2 H (22.3-36.8) Seconds Sodium 135 L (137-145) mmol/L Potassium 3.5 (3.4-5.0) mmol/L Chloride 97 L (98-107) mmol/L Carbon Dioxide 33 H (22-30) mmol/L Anion Gap 5 (4-12) mmol/L BUN 34 H D (7-17) mg/dL Creatinine 1.27 H (0.7-1.0) mg/dL Estim Creat Clear Calc 42 ml/min Estimated GFR 41 L (59 - ) Glucose 106 (65-110) mg/dL Lactic Acid 1.5 (0.7-2.0) mmol/L Calcium 14.7 H* (8.4-10.2) mg/dL Magnesium 1.5 L (1.6-2.3) mg/dL Total Bilirubin 0.3 (0.2-1.3) mg/dL AST 52 H (14-36) U/L ALT 30 (6-35) U/L Alkaline Phosphatase 126 (38-126) U/L Troponin I < 0.012 (0.000-0.034) ng/mL C-Reactive Protein 5.2 H (<1.0) mg/dL NT-Pro-B Natriuret Pep 2040 H (19.9-100) pg/mL Total Protein 7.4 (6.3-8.2) g/dL Albumin 3.9 (3.5-5.1) g/dL TSH (Reflex) (0.465-4.68) uIU/mL Free T4 (0.78-2.19) ng/dL Total T3 (0.82-1.58) NG/ML Urine Color Yellow (Yellow) Urine Appearance Clear (Clear) Urine pH 5.5 (5.0-9.0) Ur Specific [place] 1.015 (1.001-1.035) Urine Protein Negative (Negative) mg/dL Urine Glucose (UA) Negative (Negative) mg/dL Urine Ketones Negative (Negative) mg/dL Ur Blood (Man) Negative (Negative) Urine Nitrate Positive H (Negative) Urine Bilirubin Negative (Negative) Urine Urobilinogen 0.2 (<2.0) mg/dL Leukocyte Esterase Rfl 2+ H (Negative) BELA/UL Urine RBC 0-2 (0-2) /hpf Urine WBC 51-100 H (0-3) /hpf Ur Squamous Epith Cells Occasional (Few) /hpf Urine Bacteria Rare /hpf Urine Casts 0-2 Influenza A (RT-PCR) Negative (Negative) Influenza B (RT-PCR) Negative (Negative) RSV (RT-PCR) Negative (Negative) SARS-CoV-2 RNA (RT-PCR) Negative (Negative) 07/15/25 07/15/25 Range/Units 19:42 23:59 WBC (4.5-10.0) K/mm3 RBC (4.2-5.4) M/mm3 Hgb (12.0-15.0) g/dL Hct (37.0-47.0) % MCV (80-100) fl MCH (26-34) pg MCHC (32-36) g/dl RDW (11.5-14.5) % Plt Count (150-375) k/mm3 MPV (7.4-10.4) fl Immature Gran % (Auto) (0-0.5) % Neut % (Auto) (45.5-73.1) % Lymph % (Auto) (18.3-44.2) % [place] % (Auto) (2.6-8.5) % Eos % (Auto) (0-4.4) % Baso % (Auto) (0.2-1.2) % Lymph # (Auto) (0.9-3.2) K/mm3 [place] # (Auto) (0.1-0.6) K/mm3 Eos # (Auto) (0-0.3) K/mm3 Baso # (Auto) (0.0-0.1) K/mm3 Abs Immat Gran (auto) (0.00-0.031) K/mm3 Absolute Neuts (auto) (1.3-6.7) K/mm3 Absolute Nucleated RBC (0.0-0.012) K/mm3 Nucleated RBC % (0.0-0.2) % PT (11.1-14.7) Seconds INR APTT (22.3-36.8) Seconds Sodium 135 L (137-145) mmol/L Potassium 3.4 (3.4-5.0) mmol/L Chloride 102 (98-107) mmol/L Carbon Dioxide 30 (22-30) mmol/L Anion Gap 3 L (4-12) mmol/L BUN 27 H (7-17) mg/dL Creatinine 1.24 H (0.7-1.0) mg/dL Estim Creat Clear Calc 43 ml/min Estimated GFR 42 L (59 - ) Glucose 105 (65-110) mg/dL Lactic Acid (0.7-2.0) mmol/L Calcium 13.3 H* (8.4-10.2) mg/dL Magnesium (1.6-2.3) mg/dL Total Bilirubin (0.2-1.3) mg/dL AST (14-36) U/L ALT (6-35) U/L Alkaline Phosphatase (38-126) U/L Troponin I (0.000-0.034) ng/mL C-Reactive Protein (<1.0) mg/dL NT-Pro-B Natriuret Pep (19.9-100) pg/mL Total Protein (6.3-8.2) g/dL Albumin (3.5-5.1) g/dL TSH (Reflex) 11.000 H (0.465-4.68) uIU/mL Free T4 1.11 (0.78-2.19) ng/dL Total T3 0.87 (0.82-1.58) NG/ML Urine Color (Yellow) Urine Appearance (Clear) Urine pH (5.0-9.0) Ur Specific [place] (1.001-1.035) Urine Protein (Negative) mg/dL Urine Glucose (UA) (Negative) mg/dL Urine Ketones (Negative) mg/dL Ur Blood (Man) (Negative) Urine Nitrate (Negative) Urine Bilirubin (Negative) Urine Urobilinogen (<2.0) mg/dL Leukocyte Esterase Rfl (Negative) BELA/UL Urine RBC (0-2) /hpf Urine WBC (0-3) /hpf Ur Squamous Epith Cells (Few) /hpf Urine Bacteria /hpf Urine Casts Influenza A (RT-PCR) (Negative) Influenza B (RT-PCR) (Negative) RSV (RT-PCR) (Negative) SARS-CoV-2 RNA (RT-PCR) (Negative) <Mahsa Salinas MD - Last Filed: 07/16/25 20:34> Imaging Data Attestation: I personally reviewed and interpreted this imaging study as follows: <Kat Dorman APRN - Last Filed: 07/16/25 03:05> Radiologist's impression: Impressions Chest X-Ray 07/15/25 17:15 Impression: 1: Bibasilar airspace disease, best seen posteriorly on lateral view. Findings compatible with pneumonia. Chest/Abdomen/Pelvis CT 07/15/25 20:29 IMPRESSION: 1. Status post right mastectomy with partial right pneumonectomy and scarring in the right upper lobe, presumably secondary to radiation therapy. Findings compatible with a presumed breast cancer. Clinically correlate. 2: Widespread osseous metastases. 3: Left sixth and eighth rib fractures. 4: Small pleural effusions. Head CT 07/15/25 20:49 IMPRESSION: 1. No acute intracranial abnormality. 2: Fluid containing nondependent gas in the right maxillary sinus, suspicious for hemorrhage. Small fracture medial wall of the right maxillary sinus is not excluded. Correlate for history of trauma. Lumbar Spine CT 07/15/25 20:54 IMPRESSION: 1. Widespread osseous metastases of the visualized osseous structures. <Kat Dorman APRN - Last Filed: 07/16/25 03:05> Critical Care Time Critical Care Time Critical Care Time: Yes <Kat Dorman APRN - Last Filed: 07/16/25 03:05> Total Critical Care Time: 55 <Kat Dorman APRN - Last Filed: 07/16/25 03:05> 55 (Please refer to [facility] for attestation.) <Mahsa Salinas MD - Last Filed: 07/16/25 20:34> Discharge Plan Discharge Clinical Impression: Cancer, metastatic to bone, Acute kidney injury, Hypercalcemia, Pneumonia, Fracture of mastoid bone <Kat Dorman APRN - Last Filed: 07/16/25 03:05> Patient Disposition: Acute Care Hospital <Kat Dorman APRN - Last Filed: 07/16/25 03:05> Condition: Serious <Kat Dorman APRN - Last Filed: 07/16/25 03:05> Patient Language: Uruguayan <Kat Dorman APRN - Last Filed: 07/16/25 03:05> Prescriptions: No Action gabapentin 800 mg tablet 800 mg PO BID loratadine [Claritin] 10 mg tablet 10 mg PO DAILY budesonide 0.5 mg/2 mL suspension for nebulization 0.5 mg inhalation DAILY Qty: 60 5RF Rx Instructions: rinse and spit ipratropium bromide 0.02 % solution 2.5 ml inhalation Q6H PRN (Reason: shortness of breath or wheezing) Qty: 300 5RF letrozole 2.5 mg tablet 2.5 mg PO QAM ascorbic acid (vitamin C) 1,000 mg capsule 1 g PO DAILY biotin [Rashad Biotin] 10,000 mcg capsule 10,000 mcg PO DAILY geriatric multivitamin-min Tablet 1 tablet PO DAILY calcium 600 mg capsule 600 mg PO DAILY guaifenesin [Mucinex] 1,200 mg tablet extended release 12hr 1,200 mg PO BID warfarin 2 mg tablet See Rx Instructions .ROUTE .COMPLEX Protocol: Dose Management Condition: Saturday Dose/Route: 4.5 mg Instruction: 4.5 x 1 mg tablets Condition: Saturday Dose/Route: 4.5 mg Instruction: 4.5 x 1 mg tablets Condition: Saturday Dose/Route: 4.5 mg Instruction: 4.5 x 1 mg tablets Condition: Saturday Dose/Route: 4.5 mg Instruction: 4.5 x 1 mg tablets Condition: Dose/Route: 4.5 mg Instruction: 4.5 x 1 mg tablets Condition: Saturday Dose/Route: 4.5 mg Instruction: 4.5 x 1 mg tablets Condition: Saturday Dose/Route: 4.5 mg Instruction: 4.5 x 1 mg tablets Protocol Text: Adjustment Start Date: 09/12/23 INR Value: 2.0 INR Date: 09/12/23 Recheck Date: 09/26/23 Patient Comments: warfarin 4.5 mg po hs Rx Instructions: TAKE 2 TABLETS (4 MG) ORALLY AT HS ropinirole 0.25 mg tablet See Rx Instructions .ROUTE .COMPLEX Qty: 90 3RF Dose Instruction: TAKE 1 TABLET (0.25 MG) BY MOUTH AT BEDTIME Rx Instructions: TAKE 1 TABLET (0.25 MG) BY MOUTH AT BEDTIME Trelegy Ellipta 100-62.5-25 mcg blister with device 1 inh inhalation DAILYRT Qty: 60 6RF Patient Comments: QAM dicyclomine 20 mg tablet See Rx Instructions .ROUTE .COMPLEX Qty: 270 1RF Dose Instruction: TAKE 1 TABLET BY MOUTH THREE TIMES A DAY Rx Instructions: TAKE 1 TABLET BY MOUTH THREE TIMES A DAY levothyroxine 75 mcg tablet 75 mcg PO QAM Qty: 90 2RF albuterol sulfate 0.63 mg/3 mL solution for nebulization 0.63 mg inhalation BID PRN (Reason: shortness of breath or wheezing) Qty: 75 2RF warfarin 1 mg tablet 1 mg PO HS Qty: 90 1RF Protocol: Dose Management Condition: Saturday Dose/Route: 4.5 mg Instruction: 4.5 x 1 mg tablets Condition: Saturday Dose/Route: 4.5 mg Instruction: 4.5 x 1 mg tablets Condition: Saturday Dose/Route: 4.5 mg Instruction: 4.5 x 1 mg tablets Condition: Saturday Dose/Route: 4.5 mg Instruction: 4.5 x 1 mg tablets Condition: Dose/Route: 4.5 mg Instruction: 4.5 x 1 mg tablets Condition: Saturday Dose/Route: 4.5 mg Instruction: 4.5 x 1 mg tablets Condition: Saturday Dose/Route: 4.5 mg Instruction: 4.5 x 1 mg tablets Protocol Text: Adjustment Start Date: 09/12/23 INR Value: 2.0 INR Date: 09/12/23 Recheck Date: 09/26/23 Patient Comments: warfarin 5mg Rx Instructions: TAKE 1 TABLET BY MOUTH EVERY DAY primidone 50 mg tablet See Rx Instructions .ROUTE .COMPLEX Qty: 90 1RF Dose Instruction: TAKE 1 TABLET BY MOUTH EVERY DAY AT BEDTIME Rx Instructions: TAKE 1 TABLET BY MOUTH EVERY DAY AT BEDTIME ProAir RespiClick 90 mcg/actuation aerosol powdr breath activated See Rx Instructions .ROUTE .COMPLEX Qty: 1 1RF Dose Instruction: INHALE 2 PUFFS EVERY 4 - 6 HOURS NEEDED FOR SHORTNESS OF BREATH OR WHEEZING Rx Instructions: INHALE 2 PUFFS EVERY 4 - 6 HOURS NEEDED FOR SHORTNESS OF BREATH OR WHEEZING prednisone 10 mg tablet 10 mg PO DIRECTED Qty: 30 0RF Rx Instructions: Take 4 tablets by mouth daily for 3 days, then 3 tablets for 3 days, 2 tablets for 3 days, 1 tablet for 3 days doxycycline hyclate 100 mg capsule 100 mg PO BID 7 Days Qty: 14 0RF <Kat Dorman APRN - Last Filed: 07/16/25 03:05> Follow-up/Referrals: Ankit Villafuerte DO [Primary Care Provider, Internal Medicine] <Kat Dorman APRN - Last Filed: 07/16/25 03:05>
--- OUTSIDE RECORDS SUMMARY | 2025-07-15 17:18 | XMS_ITS | Encounter Summary ---
Author Organization [facility] Address [address] [place] [address] Care Team Providers Care Chief Design Drafter Name Role Phone Ankit Villafuerte DO Primary Care Provider [phone] Encounter Details Date Type Department Care Team (Late Contact Info) Description 2019 Chart Note [facility] Radiation Therapy [address] [place] [address] [place] [address] [place] [address] Social History Tobacco Use Types Packs/Day Years Used Date Smoking Tobacco: Never Alcohol Use Standard Drinks/Week Comments Yes 0 (1 standard drink = 0.6 oz pur e alcohol) Comments No Sex and Gender Information Value Date Recorded Sex Assigned at Not on file 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 [address] [place] [address] Lj Fam MD [address] [facility] [address] [place] [address] documented as of this encounter Visit Diagnoses Not on filedocumented in this encounter Care Teams Chief Design Drafter Relationship Specialty Start Date End Date Ankit Villafuerte DO [address] [facility] [address] [facility] [address] [place] [address] PCP - General Internal Medicine 07/30/24 documented as of this encounter
--- OUTSIDE RECORDS SUMMARY | 2025-07-15 17:18 | XMS_ITS | Clinical Summary ---
Author Organization [facility] Address [facility] [place] [address] Care Team Providers Care Part Time Receptionist Name Role Phone Noy Ankit Stephens DO Primary Care Provider [phone] Allergies No known active allergies Medications cholecalciferol [...] STL ABSTRACTION Provider, Abstract 06/14/[address] 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 Oncology and Hematology [facility] [address] [facility] [address] [place] [address] Lj Fam MD [address] [facility] [address] [place] [address] Health Maintenance Due Date Last [...] Maintenance Insurance MEDICARE PART A AND B [employer] SUPP MEDICARE PART A AND B [employer] SU[employer] Care Teams Part Time Receptionist Relationship Specialty Start Date End Date Ankit Villafuerte DO [address] [facility] [address] [place] [address] PCP - General Internal Medicine 07/30/24
--- OUTSIDE RECORDS SUMMARY | 2025-07-15 17:18 | XMS_ITS | Clinical Summary ---
Author Organization [facility] Address [address] [place] [address] Phone Care Team Providers Care Quarry Extraction Worker Name Role Phone Unavailable Primary Care Provider Unavailabl e Allergies No known active allergies Medications furosemide (LASIX) 40 MG Tablet TAKE 1 TABLET BY ORAL ROUTE EVERY DAY 2 6 Active SYNTHROID 125 MCG Tablet TAKE 1 TABLET BY ORAL ROUTE EVERY DAY 2 6 Active montelukast (SINGULAIR) 10 MG Tablet Take 10 mg by mouth daily. 1 6 Active CREON [address] Particles TAKE ONE CAPSULE [...] patient's age to complete this topic Insurance [employer]
--- OUTSIDE RECORDS SUMMARY | 2025-07-15 17:18 | XMS_ITS | Encounter Summary ---
Author Organization [facility] Address 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 Gender Identity Not on file Sexual Orientation Not on file documented as of this encounter Plan of Treatment Upcoming Encounters Date Type Department Care Team (Late st Contact Info) Description 08/27/2025 10:30 AM CDT Office Visit [facility] Oncology and Hematology - [place] [address] [place] [address] [address] [place] [address] Lj Fam MD [address] [facility] [address] [place] [address] documented as of this encounter Visit Diagnoses Not on filedocumented in this encounter Care Teams Post Manager Relationship Specialty Start Date End Date Ankit Villafuerte DO [address] [facility] [address] [place] [address] PCP - General Internal Medicine 07/30/24 documented as of this encounter
--- OUTSIDE RECORDS SUMMARY | 2025-07-15 17:18 | XMS_ITS | Clinical Summary ---
Author Organization [facility] Address [address] [facility] [place] [address] Care Team Providers Care Theatre Instructor Name Role Phone Chris Avalos PA-C Primary Care Provide r Source Comments [facility],non-owned Affiliates and Associated Physician Practices is amultiple site organization consisting of ambulatory clinics and hospital sitesin [place], [place], [place] and [place]. This disclosure is being madepursuant to the Care Everywhere program and may not contain all information available regarding this patient. Last updated 18.[facility] [email or web address] Allergies No known active allergies Medications * Be aware that medications may not be up to date on this document. Alwaysverify current medications with the patient. 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 Gender Identity Not on file Sexual [...] this topic Medical Devices Implanted Type Area Pharmacy District Manager Device Identifier Shelf Expiration Date Model / Serial / Lot Screw Implanted:Qty: 1 on 04/30/2022 by Michel Mendieta MD at [facility] Right: Wrist [employer] [id number] / / Screw 2.7mm 20mm Mldir Nonster Bone Implanted:Qty: 1 on 04/30/2022 by Michel Mendieta MD at [facility] Right: Wrist [employer] [id number] / / Plate Implanted:Qty: 1 on 04/30/2022 by Michel Mendieta MD at [facility] Right: Wrist [employer] [id number] / / Screw 2.7mm 14mm Lopro Nonster Bone Lf Implanted:Qty: 2 on 04/30/2022 by Michel Mendieta MD at [facility] Right: Wrist [employer] [id number] / / Screw Implanted:Qty: 1 on 04/30/2022 by Michel Mendieta MD at [facility] Right: Wrist [employer] [id number] / / Screw 2.7mm 20mm Crsslck Tpr Head 3 Ld Implanted:Qty: 3 on 04/30/2022 by Michel Mendieta MD at [facility] Right: Wrist [employer] [id number] / / Screw 2.7mm 22mm Lck Jesse Nonster Bone Implanted:Qty: 2 on 04/30/2022 by Michel Mendieta MD at [facility] Right: Wrist [employer] [id number] / / Explanted Type Area Pharmacy District Manager Device Identifier Shelf Expiration Date Model / Serial / Lot Wire K .062in 6in Fx 2 Troc Explanted:Qty: 2 on 04/30/2022 by Michel Mendieta MD at [facility] Right: Wrist [employer] [id number] / / Wire K 1.6mm Ss Fx Nonster Explanted:Qty: 3 on 04/30/2022 by Michel Mendieta MD at [facility] Right: Wrist [employer] [id number] / / Screw 2.7mm 20mm Crsslck Lopro Nonlock Explanted:Qty: 1 on 04/30/2022 by Michel Mendieta MD at [facility] Right: Wrist [employer] [id number] / / Screw 2.7mm 20mm Crsslck Lopro Nonlock Explanted:Qty: 1 on 04/30/2022 by Michel Mendieta MD at [facility] Right: Wrist [employer] [id number] / / Insurance MEDICARE [facility] [employer] [address] [place] [address] MEDICARE Care Teams Theatre Instructor Relationship Specialty Start Date End Date Chris Avalos PA-C [address] [place] [address] PCP - General 04/25/22
--- OUTSIDE RECORDS SUMMARY | 2025-07-15 17:18 | XMS_ITS | Clinical Summary ---
Author Organization [facility] Address [address] [place] [address] Care Team Providers Care Career Counselor Name Role Phone Ankit Villafuerte DO Primary Care Provider [phone] Allergies No known active allergies Medications warfarin (COUMADIN) 5 MG tablet Take 4.5 mg by mouth daily. Active Immunizations Immunization Administration Dates Next Due Tdap [...] Comments Blood Pressure 137/83 09/28/2024 5:55 PM MANAGER OF CHANGE Pulse 73 09/28/2024 5:55 PM MANAGER OF CHANGE Temperature 36.2 C (97.1 F) 09/28/2024 5:55 PM MANAGER OF CHANGE Respiratory Rate 18 09/28/2024 5:55 PM MANAGER OF CHANGE Oxygen Saturation 98% 09/28/2024 5:55 PM MANAGER OF CHANGE Inhaled Oxygen Concentration - - Weight 97.1 kg (214 lb 1.1 oz) 09/28/2024 3:00 P M MANAGER OF CHANGE Height 175.3 cm (5' 9) 09/28/2024 3:00 PM MANAGER OF CHANGE Body Mass Index 31.61 09/28/2024 3:00 PM MANAGER OF CHANGE Plan of Treatment Health Maintenance Due Date [...] patient's age to complete this topic Insurance MEDICARE [facility] [employer] [place] [employer] [facility] Care Teams Career Counselor Relationship Specialty Start Date End Date Ankit Villafuerte DO [address] [address] PCP - General INTERNAL MEDICINE 09/28/24
--- OUTSIDE RECORDS SUMMARY | 2025-07-15 17:18 | XMS_ITS ---
Author Organization [facility] Address [address] [place] [address] Phone Care Team Providers Care Cue Selector Name Role Phone Unavailable Primary Care Provider [...]
[2025-07-15] MEDS: IPRATROPIUM 0.5 MG/ALBUTEROL SULFATE 2.5 MG AMPUL.NEB 3 ML INHALATION (17:26)
[2025-07-15 17:27] LABS: Alanine Aminotransferase 30 U/L (6-35); Albumin Level 3.9 g/dL (3.5-5.1); Alkaline Phosphatase 126 U/L (38-126); Anion Gap 5 mmol/L (4-12); Aspartate Amino Transferase 52 U/L (14-36); Bilirubin,Total 0.3 mg/dL (0.2-1.3); Blood Urea Nitrogen 34 mg/dL (7-17); Carbon Dioxide 33 mmol/L (22-30); Chloride 97 mmol/L (98-107); Estimated CRCL calculation 42 ml/min; Estimated Glomerular Filt Rate 41; Glucose 106 mg/dL (65-110); Potassium 3.5 mmol/L (3.4-5.0); Sodium 135 mmol/L (137-145); Total Protein 7.4 g/dL (6.3-8.2)
[2025-07-15 17:30] VITALS: PULSE 101; RESP 15
[2025-07-15 17:38] VITALS: PULSE 103; RESP 20
[2025-07-15] MEDS: SODIUM CHLORIDE 0.9% IV 1,000 ML 999 ML IV CONT ×2 (17:40)
[2025-07-15 17:52] LABS: Calcium 14.7 mg/dL (8.4-10.2)
[2025-07-15 17:57] LABS: INR 4.3; Prothrombin Time 39.1 Seconds (11.1-14.7)
[2025-07-15 17:58] LABS: Partial Thromboplastin Time 66.2 Seconds (22.3-36.8)
[2025-07-15 18:05] LABS: CRP 5.2 mg/dL (<1.0); Magnesium 1.5 mg/dL (1.6-2.3)
[2025-07-15 18:14] LABS: NT Pro B Type Natriuretic Pept 2040 pg/mL (19.9-100); Troponin I < 0.012 ng/mL (0.000-0.034)
[2025-07-15] MEDS: cefTRIAXone 1 GM in SODIUM CHLORIDE 0.9% IV 50 ML 100 ML IVPB (18:18)
[2025-07-15 18:19] LABS: Influenza A QL RT-PCR Negative (Negative); Influenza B QL RT-PCR Negative (Negative); RSV RNA, RT-PCR Negative (Negative); SARS-CoV-2 RNA PCR Negative (Negative)
[2025-07-15] MEDS: AZITHROMYCIN IV 500 MG in SODIUM CHLORIDE 0.9% IV 250 ML IVPB (18:42)
[2025-07-15] MEDS: SODIUM CHLORIDE 0.9% IV 800 ML 999 ML IV CONT (19:19)
[2025-07-15 19:45] LABS: Add Urine Microscopic? YES; Appearance Urine Clear (Clear); Glucose Urine UA Negative (Negative); Leukocyte Esterase Ur 2+ LEU/UL (Negative); Nitrate Urine Positive (Negative); Non Pathogenic Casts 0-2; Specific Grav Ur 1.015 (1.001-1.035)
[2025-07-15 21:29] LABS: Thyroid Stimulating Hormone Reflex 11.000 uIU/mL (0.465-4.68)
[2025-07-15 22:04] LABS: Free T4 Free Thyroxine Reflex 1.11 ng/dL (0.78-2.19)
[2025-07-15] MEDS: MORPHINE SULFATE (*CRX) 2 MG/ML INJ IV PUSH (22:16)
[2025-07-15 23:00] VITALS: BP 125/86; PULSE 95; RESP 27; O2SAT 94
[2025-07-15 23:32] LABS: Total Triiodothyronine (T3) 0.87 NG/ML (0.82-1.58)
[2025-07-16] VITALS: BP 124/78; PULSE 92; RESP 24; O2SAT 96
[2025-07-16 00:28] LABS: Anion Gap 3 mmol/L (4-12); Blood Urea Nitrogen 27 mg/dL (7-17); Calcium 13.3 mg/dL (8.4-10.2); Carbon Dioxide 30 mmol/L (22-30); Chloride 102 mmol/L (98-107); Estimated CRCL calculation 43 ml/min; Estimated Glomerular Filt Rate 42; Glucose 105 mg/dL (65-110); Potassium 3.4 mmol/L (3.4-5.0); Sodium 135 mmol/L (137-145)
[2025-07-16 01:00] VITALS: BP 118/73; PULSE 83; RESP 15; O2SAT 100
[2025-07-16 02:00] VITALS: BP 112/67; PULSE 94; RESP 18; O2SAT 94
[2025-07-16 03:00] VITALS: BP 122/70; PULSE 88; RESP 17; O2SAT 96
[2025-07-16 04:00] VITALS: BP 119/69; PULSE 93; RESP 16; O2SAT 92
[2025-07-16 05:00] VITALS: BP 105/64; PULSE 87; RESP 17; O2SAT 97
[2025-07-16] MEDS: SODIUM CHLORIDE 0.9% IV 1,000 ML 150 ML IV CONT (05:56)
== END 2025-07-16 07:40 | disposition short-term general hospital (02) ==
PROVIDERS: Emergency Medicine; Emergency Provider Registered Nurse; PCP Internal Medicine
DX: J18.9 Pneumonia, unspecified organism (principal); C79.51 Secondary malignant neoplasm of bone; N17.9 Acute kidney failure, unspecified; E83.52 Hypercalcemia; S02.40CA Maxillary fracture, right side, initial encounter for closed fracture; S22.42XA Multiple fractures of ribs, left side, initial encounter for closed fracture; Z20.822 Contact with and (suspected) exposure to COVID-19; E03.9 Hypothyroidism, unspecified; K86.81 Exocrine pancreatic insufficiency; G25.81 Restless legs syndrome; Z85.41 Personal history of malignant neoplasm of cervix uteri; Z85.3 Personal history of malignant neoplasm of breast; Z92.3 Personal history of irradiation; Z92.21 Personal history of antineoplastic chemotherapy; Z90.11 Acquired absence of right breast and nipple; Z90.49 Acquired absence of other specified parts of digestive tract; Z90.2 Acquired absence of lung [part of]; Z79.01 Long term (current) use of anticoagulants; Z79.899 Other long term (current) drug therapy; J90 Pleural effusion, not elsewhere classified; R00.0 Tachycardia, unspecified; R94.31 Abnormal electrocardiogram [ECG] [EKG]; X58.XXXA Exposure to other specified factors, initial encounter
CPT/HCPCS: 36415; 70450; 71046; 71260; 72131; 74177; 80048; 80053; 81001; 83605; 83735; 83880; 84439; 84443; 84480; 84484; 85025; 85610; 85730; 86140; 87040; 87077; 87086; 87186; 87637; 93005; 94640; 96365; 96366; 96367; 96375; 99285; J0456; J0696; J2270; J7030; J7050; Q9967

== ENCOUNTER 2025-07-27 13:35 | Outpatient (RCR) | payer MEDICARE, SELFPAY ==
[2025-05-31 11:29] LABS: INR 1.8; Prothrombin Time 20.7 Seconds (11.1-14.7)
[2025-06-07 10:57] LABS: INR 1.8; Prothrombin Time 20.4 Seconds (11.1-14.7)
[2025-06-16 10:08] LABS: INR 1.7; Prothrombin Time 19.3 Seconds (11.1-14.7)
[2025-06-23 11:36] LABS: INR 3.0; Prothrombin Time 30.5 Seconds (11.1-14.7)
[2025-06-30 11:11] LABS: INR 3.3; Prothrombin Time 32.5 Seconds (11.1-14.7)
[2025-07-07 12:06] LABS: INR 3.0; Prothrombin Time 29.7 Seconds (11.1-14.7)
[2025-07-27 14:11] LABS: INR 2.4; Prothrombin Time 25.2 Seconds (11.1-14.7)
== END 2025-08-29 23:59 | disposition home or self-care (01) ==
LOC: ANHLAB 13:35
PROVIDERS: PCP Internal Medicine; Visit Provider Internal Medicine
DX: Z51.81 Encounter for therapeutic drug level monitoring (principal); Z79.01 Long term (current) use of anticoagulants
CPT/HCPCS: 36415; 85610

== ENCOUNTER 2025-07-28 10:51 | Outpatient (CLI) | payer MEDICARE, SELFPAY ==
--- OUTSIDE RECORDS SUMMARY | 2025-07-27 15:45 | XMS_ITS | Encounter Summary ---
Author Organization [facility] Address [address] [place] [address] Care Team Providers Care Semiconductor Development Technician Name Role Phone Ankit Villafuerte Primary Care Provider [phone] Reason for Referral * Radiation Therapy (Routine) - Open Specialty Diagnoses / Procedures Referred By Contac t Referred To Contact Diagnoses Malignant neoplasm of upper-outer quadrant of right breast in female, estrogen receptor positive (CMS/HCC) Procedures [place] OFFICE/OUTPATIENT ESTABLISHED MOD MDM 30 MIN [place] OFFICE/OUTPATIENT NEW MODERATE MDM 45 MINUTES Charly Alcazar MD [address] [place] [address] Phone: tel: fax: Referral ID Status Reason Start Date Expiration Date Visits Re quested Visits Authorized [id number] Open 07/27/2025 07/27/2026 1 1 * Nuclear Medicine (Urgent) - Open Specialty Diagnoses / Procedures Referred By Contac t Referred To Contact Diagnoses Malignant neoplasm of upper-outer quadrant of right breast in female, estrogen receptor positive (CMS/HCC) Procedures NM BONE SCAN WHOLE BODY Lj Fam MD [address] [address] Phone: tel: fax: Referral ID Status Reason Start Date Expiration Date V isits Requested Visits Authorized [id number] Open CRS to Schedule 07/27/2025 08/27/2026 1 1 Reason for Visit * Reason Comments Cancer Follow Up Encounter Details Date Type Department Care Team (Late st Contact Info) Description 07/27/2025 3:45 PM CDT Office Visit [facility] Oncology and Hematology - [place] [address] [place] [address] Lj Fam MD [address] [place] [address] Malignant neoplasm of upper-outer quadrant of right breast in female, estrogen receptor positive (CMS/HCC) (Primary Dx); Carcinoma of breast metastatic to bone, unspecified laterality (CMS/HCC) Social History Tobacco Use Types Packs/Day Years Used Date Smoking Tobacco: Never Alcohol Use Standard Drinks/Week Comments Yes 0 (1 standard drink = 0.6 oz pur e alcohol) Feeling Safe Answer Date Recorded Are you in a relationship wi th someone who hurts you emotionally and/or physically? 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 Gender Identity Not on file Sexual Orientation Not on file documented as of this encounter Last Filed Vital Signs Vital Sign Reading Time Taken Comments Blood Pressure 132/82 07/27/2025 3:38 PM CDT Pulse 120 07/27/2025 3:35 PM CDT Temperature 36.1 C (96.9 F) 07/27/2025 3:35 PM CDT Respiratory Rate 16 07/27/2025 3:35 PM CDT Oxygen Saturation 93% 07/27/2025 3:35 PM CDT Inhaled Oxygen Concentration - - Weight 89.5 kg (197 lb 6.4 oz) 07/27/2025 3:35 P M CDT Height - - Body Mass Index 30.01 07/16/2025 8:55 AM CDT documented in this encounter Progress Notes * Lj Fam MD - 07/27/2025 4:49 PM CDT HEMATOLOGY / ONCOLOGY PROGRESS NOTE Patient Identification: Name: Damien Pulido Age: 75 y.o. Sex: female : 1950 DIAGNOSIS Metastatic breast cancer status post right iliac bone biopsy done on July 20, 2025. 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 She was transferred to [facility] from [facility] where right iliac bone biopsy done on July 20, 2025. She is still complaining of bone pain and taking Percocet. She also receives Zometa for hypercalcemia. Denies any other complaints. Review of system Constitutional: denies fevers, sweats, complain of tiredness and fatigue HEENT: denies sinus congestion, hearing or vision problems, complain of thinning of hair Respiratory: denies cough, dyspnea, wheeze Cardiovascular: denies chest pain, exertional chest pressure/discomfort, nausea, syncope, shortnessof breath GI: denies constipation, diarrhea, dsyphagia, reflux symptoms, vomiting, melena : denies dysuria, frequency, incontinence, urgency Integumentary system: no lymphadenopathy, sweats, flushing Musculoskeletal: Complain of generalized musculoskeletal discomfort in the left hip pain Neurological: denies blurry or disturbed vision, numbness/weakness, [...] No lymphadenopathy Neuro: No obvious focal deficit Exam as above [facility] Labs from [...] bilirubin 0.3 hemoglobin 11.8 CA 15-3 7 Labs from February 15 showed CA 15-3 6 hemoglobin 12.3 AST 43 creatinine 0.8 Assessment: Plan: Patient Active Problem List Diagnosis Date Noted Hypercalcemia 07/16/2025 Breast cancer metastasized to bone (CMS/HCC) 07/16/2025 Confusion 07/16/2025 Generalized muscle weakness 07/16/2025 Osteoporosis due to aromatase inhibitor 10/20/2018 Screening for osteoporosis 12/21/2016 Malignant neoplasm of upper-outer quadrant of right female breast (CMS/HCC) 08/27/2016 Acquired hypothyroidism 08/27/2016 Metastatic breast cancer status post right iliac bone biopsy done on July 20, 2025. Pathology showed ER positive [place] negative and HER2/eleuterio 2+ equivocal. FISH testing is pending. 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 Diagnosed in June 2016. I will order [facility] next-generation sequencing. If HER2/eleuterio comes back negative then we will start her on Faslodex with Ibrance. Bone metastasis. She will receive refill on Percocet. I will refer her for radiation oncology consultation for palliative radiation therapy. I will also order the bone scan. I will start her on monthly Xgeva. Patient is currently on Prolia. Anemia. Resolved. History of DVT. Patient is on warfarin. Follow-up phone visit in 2 weeks to discuss Tempus testing as well as FISH testing for HER2/eleuterio. 07/27/2025 Lj Fam MD documented in this encounter Plan of Treatment Upcoming Encounters Date Type Department Care Team (Late st Contact Info) Description 08/10/2025 4:30 PM CDT Telephone Check Up [facility] Oncology and Hematology - [place] [address] [place] [address] Lj Fam MD [address] [place] [address] Pending Results Name Type Priority Associated Diagnoses Date /Time [facility] XT DNA AND RNA Lab Routine Carcinoma of breast metastatic to bone, unspecified laterality (CMS/HCC) 07/27/2025 4:49 PM CDT Scheduled Orders Name Type Priority Associated Diagnoses Orde r Schedule NM BONE SCAN WHOLE BODY Imaging Stat Malignant neoplasm of upper-outer quadrant of right breast in female, estrogen receptor positive (CMS/HCC) Expected: 07/28/2025, Expires: 07/27/2026 [facility] XT DNA AND RNA Lab Routine Carcinoma of breast metastatic to bone, unspecified laterality (CMS/HCC) Expected: 07/27/2025, Expires: 07/27/2026 [facility] XF Lab Routine Carcinoma of breast metastatic to bone, unspecified laterality (CMS/HCC) Expected: 07/27/2025, Expires: 07/27/2026 MISCELLANEOUS LAB TEST Lab Routine Malignant neoplasm of upper-outer quadrant of right breast in female, estrogen receptor positive (CMS/HCC) Expected: 07/27/2025, Expires: 07/27/2026 [facility] XT DNA AND RNA SOLID TUMOR Lab Routine Carcinoma of breast metastatic to bone, unspecified laterality (CMS/HCC) Ordered: 07/27/2025 Scheduled Referrals Name Type Priority Associated Diagnoses Orde r Schedule AMB REFERRAL TO RADIATION ONCOLOGY Outpatient Referral Routine Malignant neoplasm of upper-outer quadrant of right breast in female, estrogen receptor positive (CMS/HCC) Ordered: 07/27/2025 documented as of this encounter Procedures Procedure Name Priority Date/Time Associated Diagnosis Comments [facility] NORMAL BLOOD Routine 07/27/2025 4:49 PM CDT Carcinoma of breast metastatic to bone, unspecified laterality (CMS/HCC) documented in this encounter Results * [facility] XT NORMAL BLOOD (07/27/2025 4:49 PM CDT) [facility] 07/27/2025 11:00 PM CDT [facility] Comment:See NGS Report for R esults. Blood specimen (specimen) 07/27/2025 4:49 PM CDT 07/27/2025 4:50 PM CDT us Lj Fam MD MOLECULAR ORDERABLES Final Resu lt [facility] [address], [address] [place], [place] [address] [phone] [facility] [address], [address] [place] [address] documented in this encounter Visit Diagnoses Diagnosis Malignant neoplasm of upper-outer quadrant of right breast in female, estrogen receptor positive (CMS/HCC)- Primary Carcinoma of breast metastatic to bone, unspecified laterality (CMS/HCC) documented in this encounter Care Teams Semiconductor Development Technician Relationship Specialty Start Date End Date Ankit Villafuerte DO [address] [place] [address] PCP - General Internal Medicine 07/30/24 documented as of this encounter
--- OUTSIDE RECORDS SUMMARY | 2025-07-28 11:39 | XMS_ITS | Clinical Summary ---
Author Organization [facility] Address [address] [place] [address] Care Team Providers Care Utility Locate Technician Name Role Phone Chris Avalos PA-C Primary Care Provide r Source Comments [facility],non-owned Affiliates and Associated Physician Practices is amultiple site organization consisting of ambulatory clinics and hospital sitesin [place]. This disclosure is being madepursuant to the Care Everywhere program and may not contain all information available regarding this patient. Last updated 18.[facility] Allergies No known active allergies Medications * Be aware that medications may not be up to date on this document. Alwaysverify current medications with the patient. 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 Right: Wrist [employer] [id number] / / Screw 2.7mm 20mm Mldir Nonster Bone Implanted:Qty: 1 on 04/30/2022 by Michel Mendieta MD at [facility] Right: Wrist [employer] [id number] / / Plate Implanted:Qty: 1 on 04/30/2022 by Michel Mendieta MD at [facility] Right: Wrist [employer] [id number] / / Screw 2.7mm 14mm Lopro Nonster Bone Lf Implanted:Qty: 2 on 04/30/2022 by Michel Mendieta MD at [facility] Right: Wrist [employer] [id number] / / Screw Implanted:Qty: 1 on 04/30/2022 by Michel Mendieta MD at [facility] Right: Wrist [employer] [id number] / / Screw 2.7mm 20mm Crsslck Tpr Head 3 Ld Implanted:Qty: 3 on 04/30/2022 by Michel Mendieta MD at [facility] Right: Wrist [employer] [id number] / / Screw 2.7mm 22mm Lck Jesse Nonster Bone Implanted:Qty: 2 on 04/30/2022 by Michel Mendieta MD at [facility] Right: Wrist [employer] [id number] / / Explanted Type Area Outpatient Surgery Rn Device Identifier Shelf Expiration Date Model / Serial / Lot Wire K .062in 6in Fx 2 Troc Explanted:Qty: 2 on 04/30/2022 by Michel Mendieta MD at [facility] Right: Wrist [employer] [id number] / / Wire K 1.6mm Ss Fx Nonster Explanted:Qty: 3 on 04/30/2022 by Michel Mendieta MD at [facility] Right: Wrist [employer] [id number] / / Screw 2.7mm 20mm Crsslck Lopro Nonlock Explanted:Qty: 1 on 04/30/2022 by Michel Mendieta MD at [facility] Right: Wrist [employer] [id number] / / Screw 2.7mm 20mm Crsslck Lopro Nonlock Explanted:Qty: 1 on 04/30/2022 by Michel Mendieta MD at [facility] Right: Wrist [employer] [id number] / / Insurance MEDICARE [facility] [employer] [address] [place] [address] MEDICARE Care Teams Utility Locate Technician Relationship Specialty Start Date End Date Chris Avalos PA-C [address] [place] [address] PCP - General 04/25/22
--- OUTSIDE RECORDS SUMMARY | 2025-07-28 11:39 | XMS_ITS | Encounter Summary ---
Author Organization [facility] Address [address] [place] [address] Care Team Providers Care Barrel Driller Name Role Phone Ankit Villafuerte DO Primary Care Provider [phone] Encounter Details Date Type Department Care Team (Late Contact Info) Description 2019 Chart Note [facility] Radiation Therapy [address] [place] [address] [place] [address] [place] [address] Social History Tobacco Use Types Packs/Day Years Used Date Smoking Tobacco: Never Alcohol Use Standard Drinks/Week Comments Yes 0 (1 standard drink = 0.6 oz pur e alcohol) Comments No Sex and Gender Information Value Date Recorded Sex Assigned at Not on file 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 Gender Identity Not on file Sexual Orientation Not on file documented as of this encounter Plan of Treatment Upcoming Encounters Date Type Department Care Team (Late Contact Info) Description 08/10/2025 4:30 PM CDT Telephone Check Up [facility] Oncology and Hematology - [place] [address] [facility] [address] [place] [address] Lj Fam MD [address] [place] [address] documented as of this encounter Visit Diagnoses Not on filedocumented in this encounter Care Teams Barrel Driller Relationship Specialty Start Date End Date Ankit Villafuerte DO [address] [facility] [address] [facility] [address] [place] [address] PCP - General Internal Medicine 07/30/24 documented as of this encounter
--- OUTSIDE RECORDS SUMMARY | 2025-07-28 11:39 | XMS_ITS | Encounter Summary ---
Author Organization [facility] Address 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 Gender Identity Not on file Sexual Orientation Not on file documented as of this encounter Plan of Treatment Upcoming Encounters Date Type Department Care Team (Late Contact Info) Description 08/10/2025 4:30 PM CDT Telephone Check Up [facility] Oncology and Hematology - [place] [address] [place] [address] Lj Fam MD [address] [facility] [address] [address] [place] [address] documented as of this encounter Visit Diagnoses Not on filedocumented in this encounter Care Teams Water Ski Assembler Relationship Specialty Start Date End Date Ankit Villafuerte DO [address] [facility] [address] [facility] [address] [place] [address] PCP - General Internal Medicine 07/30/24 documented as of this encounter
--- OUTSIDE RECORDS SUMMARY | 2025-07-28 11:39 | XMS_ITS | Clinical Summary ---
Author Organization [facility] Address [facility] [place] [address] Care Team Providers Care [employer] Coordinator Name Role Phone Noy Ankit Stephens DO Primary Care Provider [phone] Allergies No known active allergies Medications cholecalciferol, vitamin D3, 5,000 unit Take 5,000 [...] BY MOUTH TWICE A DAY 0 Active primidone (MYSOLINE) 50 mg tablet TAKE 1/2 TABLET BY MOUTH AT BEDTIME X 1 WK, THEN INCREASE TO 1 TABLET AT BEDTIME 4 Active levothyroxine 75 mcg tablet Take 75 mcg by mouth daily in the morning. Active warfarin (COUMADIN) 1 mg tablet Take 4 mg by mouth daily. 4 Active letrozole (FEMARA) 2.5 mg tablet TAKE 1 TABLET BY MOUTH EVERY DAY 90 Tablet 3 4 Active Trelegy Ellipta 100-62.5-25 mcg Disk with Device Take 1 Puff by inhalation daily. 5 Active budesonide (PULMICORT RESPULE) 0.5 mg/2 mL Suspension for Nebulization INHALE CONTENTS OF 1 VIAL VIA NEBULIZER DAILY RINSE AND SPIT 5 Active oxyCODONE-acetam inophen (PERCOCET) 5-325 mg tabletIndication s:Carcinoma of breast metastatic to bone, unspecified laterality (CMS/HCC) Take 1 Tablet by mouth every 4 hours as needed for Pain. Max Daily Amount: 6 Tablets 15 Tablet 5 Active oxyCODONE-acetam inophen (PERCOCET) 5-325 mg tabletIndication s:Carcinoma of breast metastatic to bone, unspecified laterality (CMS/HCC) Take 1 Tablet by mouth every 4 hours as needed for Pain. Max Daily Amount: 6 Tablets 15 Tablet 07/21/2025 4:33 PM CDT 5 025 Discontin ued(Reord er) Active Problems Problem Noted Date Diagnosed Date Hypercalcemia 07/16/2025 Breast cancer metastasized to bone 07/16/2025 Confusion 07/16/2025 Generalized muscle weakness 07/16/2025 Osteoporosis due to aromatase inhibitor 10/20/20 18 Screening for osteoporosis 12/21/2016 Malignant neoplasm of upper- outer quadrant of right female breast 08/27/2016 Cancer Staging:Clinical:Stage IIIB(T4, N0, M0) - Unsigned Acquired hypothyroidism 08/27/2016 Encounters Date Type Department Care Team Description 07/27/2025 3:45 PM CDT Office Visit [facility] Oncology and Hematology [facility] [address] [place] [address] Lj Fam MD Malignant neoplasm of upper-outer quadrant of right breast in female, estrogen receptor positive (CMS/HCC) (Primary Dx); Carcinoma of breast metastatic to bone, unspecified laterality (CMS/HCC) 07/27/2025 External Device Data ST[facility] ABSTRACTION Provider, Abstract 07/20/2025 External Device Data [facility] ABSTRACTION Provider, Abstract 07/20/2025 External Device Data [facility] ABSTRACTION Provider, Abstract 07/16/2025 8:52 AM CDT - 07/21/2025 3:50 PM CDT Hospital Encounter [facility] Oncology [address] [place] [address] Any Krishnan MD Padgett, MD Liat Montoya, DO Azalea Haque, Devan Palumbo MD Hypercalcemia Discharge Disposition: Home or Self Care 07/16/2025 Travel 07/13/2025 External Device Data [facility] ABSTRACTION Provider, Abstract 06/29/2025 External Device Data [facility] ABSTRACTION Provider, Abstract 06/22/2025 External Device Data [facility] ABSTRACTION Provider, Abstract 06/14/[address] 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 Oncology and Hematology - [place] [address] [facility] [address] [place] [address] Lj Fam MD [address] [facility] [address] [place] [address] Health Maintenance Due Date Last Done Comments PNEUMOCOCCAL VACCINE 50+ YEA RS (1 of 2 - PCV) 1971 ZOSTER VACCINE (1 of 2) 1971 FIT-DNA Q 3 years 1997 FIT/FOBT Q 1 year 1997 Flex Sig/CT Colonography Q 5 years 1997 INFLUENZA VACCINE (#1) 2025 BREAST CANCER SCREENING [...] breast metastatic to bone, unspecified laterality (CMS/HCC) PULSE OXIMETRY, WITH EXERCISE Pending Discharge 07/21/2025 10:13 AM CDT COMPREHENSIVE METABOLIC PANEL Routine 07/21/2025 5:45 AM CDT MAGNESIUM LEVEL Routine 07/21/2025 5:45 AM CDT PROTIME-INR Routine 07/21/2025 5:[address] GUIDED BIOPSY Routine 07/20/2025 4:05 PM CDT PATHOLOGY Pathology 07/20/2025 4:05 PM CDT COMPREHENSIVE METABOLIC PANEL Routine 07/20/2025 5:55 AM CDT MAGNESIUM LEVEL Routine 07/20/2025 5:55 AM CDT PROTIME-INR Routine 07/20/2025 5:[address] PELVIS WO CONTRAST Pending Discharge 07/19/2025 11:27 AM CDT COMPREHENSIVE METABOLIC PANEL Routine 07/19/2025 3:29 AM CDT CBC WITHOUT DIFFERENTIAL Routine 07/19/2025 3:29 AM CDT MAGNESIUM LEVEL Routine 07/19/2025 3:29 AM CDT PROTIME-INR Routine 07/19/2025 3:29 AM CDT MRI BRAIN W WO CONTRAST Routine 07/19/2025 3:15 AM CDT MRI THORACIC W WO CONTRAST Routine 07/19/2025 3:07 AM CDT POC GLUCOSE Routine 07/18/2025 12:03 PM CDT US RENAL AND BLADDER Routine 07/18/2025 9:52 AM CDT COMPREHENSIVE METABOLIC PANEL Routine 07/18/2025 3:17 AM CDT CBC WITHOUT DIFFERENTIAL Routine 07/18/2025 3:17 AM CDT MAGNESIUM LEVEL Routine 07/18/2025 3:17 AM CDT PROTIME-INR Routine 07/18/2025 3:[address] CHEST WO CONTRAST Stat 07/17/2025 11:41 PM CDT HEMOGLOBIN AND HEMATOCRIT Routine 07/17/2025 5:39 PM CDT VITAMIN B12 AND FOLATE Routine 07/17/2025 1:07 PM CDT LACTATE DEHYDROGENASE Routine 07/17/2025 1:07 PM CDT FOLATE, SERUM Routine 07/17/2025 1:07 PM CDT TRANSFUSE PACKED RED BLOOD CELLS Routine 07/17/2025 11:02 AM CDT VERIFICATION BLOOD GROUP Stat 07/17/2025 9:10 AM CDT Encounter for blood typing TYPE AND SCREEN Routine 07/17/2025 8:36 AM CDT TSH Stat 07/17/2025 8:36 AM CDT MAGNESIUM LEVEL Routine 07/17/2025 8:36 AM CDT COMPREHENSIVE METABOLIC PANEL Routine 07/17/2025 8:36 AM CDT PREPARE RED BLOOD CELLS Routine 07/17/2025 7:37 AM CDT DIFFERENTIAL, MANUAL Routine 07/17/2025 7:03 AM CDT CBC WITH DIFFERENTIAL Routine 07/17/2025 7:03 AM CDT PROTIME-INR Routine 07/17/2025 5:14 AM CDT HAPTOGLOBIN Routine 07/16/2025 10:22 AM CDT VITAMIN B12 LEVEL Routine 07/16/2025 10: 22 AM CDT IRON, TIBC, AND PERCENT SATURATION Routine 07/16/2025 10:22 AM CDT FERRITIN Routine 07/16/2025 10:22 AM CDT C-REACTIVE PROTEIN Routine 07/16/2025 10 :22 AM CDT PROCALCITONIN Routine 07/16/2025 10:22 AM CDT PROTIME-INR Routine 07/16/2025 10:22 AM CDT COMPREHENSIVE METABOLIC PANEL Routine 07/16/2025 10:22 AM CDT CBC WITH DIFFERENTIAL Routine 07/16/2025 10:22 AM CDT RT ASSESS AND TREAT Routine 07/16/2025 1 0:03 AM CDT MAMMO SCREENING BILAT Routine 07/20/2024 2:42 PM CDT XR DEXA BONE DENSITY AXIAL 1 OR MORE SITES Routine 07/13/2021 Osteoporosis due to aromatase inhibitor from Last 3 Months or Most Recently Relevant to Health Maintenance Results * [facility] NORMAL [facility]LOOD (07/27/2025 4:49 PM CDT) [facility] 07/27/2025 11:00 PM CDT [facility] Comment:See NGS Report for R esults. Blood specimen (specimen) 07/27/2025 4:49 PM CDT 07/27/2025 4:50 PM CDT Lj Fam MD MOLECULAR ORDERABLES Final Resu lt [facility] [address] [facility], [address] [place] [address], [facility] [address] [facility] [facility], [address] [place] [address] * PULSE OXIMETRY, WITH EXERCISE (07/21/2025 10:13 AM CDT) Narrative [facility] - 07/21/2025 10:13 AM CDT Kathleen Bunch RCP 07/21/2025 10:15 AM OXYGEN WALK STUDY Oxygen Walk Study performed per Medicare guidelines for severe lung disease with a SpO2 of 88% or less while on room air at rest or with exertion. Recommendation: Patient requires 0 Liters per minute of oxygen at rest and 0 Lpm with exertion to maintain SpO2 of greater or equal to 89%. Pre Test at Rest-RA With Activity-RA Post Test at Rest-RA Time: Oxygen Level: RA RA RA Heart Rate: 104 125 107 SpO2: 91 93 91 Comments about Evaluation: The patient ambulated appr. 100ft. Please call [phone] for any questions about this walk study. us Devan Tristan MD PFT ORDERABLES Final Result Performing Organization Address [facility] Co de Phone Number [facility] [address] [facility] [address] * (ABNORMAL) PROTIME-INR (07/21/2025 5:45 AM CDT) Only the most recent of6 resultswithin the time period is included. PROTIME 20.0(H) 12.7 - 15.1 Seconds 07/21/2025 6:43 AM CDT [facility] INR 1.7(H) 0.9 - 1.1 07/21/2025 6:43 AM CDT [facility] Blood Venipuncture / Unknown 07/21/2025 5:45 AM CDT 07/21/2025 6:21 AM CDT Narrative [facility] SERVICES - [facility] - 07/21/2025 6:43 AM CDT INR Therapeutic Range: Adult: 2.0 - 3.0 for pulmonary embolism or prophylaxis against venous thrombosis or systemic embolization. 2.0 - 3.0 for patients with tissue heart valves. 2.5 - 3.5 for patients with mechanical heart valves or post UT. Pediatric (12 years and under): 1.5 - 3.0 Although the target range in children is not well established, INR values of 1.5 - 3.0 are recommended for most patients. Higher values have been used in children with prosthetic cardiac valves and hereditary clotting disorders. [place] (<3 days) therapeutic ranges have not been established. Lindsay Miramontes MD HEMATOLOGY ORDERABLES Final R esult Performing Organization Address [facility] Co de Phone Number [facility] [employer] [facility]# [id number] [address] [place] [address] * MAGNESIUM LEVEL (07/21/2025 5:45 AM CDT) Only the most recent of5 resultswithin the time period is included. Pathologist [facility] MAGNESIUM 1.7 1.6 - 2.4 mg/dL 07/21/2025 7:56 AM CDT [facility] Blood Venipuncture / Unknown 07/21/2025 5:45 AM CDT 07/21/2025 6:21 AM CDT Jacquelin Josue DO CHEMISTRY ORDERABLES Final R esult Performing Organization Address [facility] Co de Phone Number [facility] [employer] [facility]# [id number] [address] [place] [address] * (ABNORMAL) COMPREHENSIVE METABOLIC PANEL (07/21/2025 5:45 AM CDT) Only the most recent of6 resultswithin the time period is included. SODIUM 143 136 - 145 mmol/L 07/21/2025 7:56 AM CDT [employer] LABORAT[facility] POTASSIUM 3.7 3.5 - 5.0 mmol/L 07/21/2025 7:56 AM CDT [employer] [facility] CHLORIDE 109(H) 98 - 107 mmol/L 07/21/2025 7:56 AM [facility] CO2 24 22 - 29 mmol/L 07/21/2025 7:56 AM [facility] CALCIUM 8.0(L) 8.6 - 10.2 mg/dL 07/21/2025 7:56 AM [facility] BUN 9 8 - 23 mg/dL 07/21/2025 7:56 AM [facility] CREATININE 0.69 0.51 - 0.95 mg/dL 07/21/2025 7:56 AM [facility] Comment:The GFR result is no t clinically significant on patients <18 or >70 years of age. GLUCOSE 102(H) 74 - 99 mg/dL 07/21/2025 7:56 AM [facility] TOTAL PROTEIN 6.1(L) 6.7 - 8.6 g/dL 07/21/2025 7:56 AM [facility] ALBUMIN 3.2(L) 3.5 - 5.2 g/dL 07/21/2025 7:56 AM [facility] BILIRUBIN TOTAL 0.3 0.0 - 1.1 mg/dL 07/21/2025 7:56 AM [facility] ALKALINE PHOSPHATASE 172(H) 35 - 104 U/L 07/21/2025 7:56 AM [facility] AST 45(H) <33 U/L 07/21/2025 7:56 AM [facility] ALT 24 <34 U/L 07/21/2025 7:56 AM [facility] GFR >60 mL/min/1.7 3 sq meter 07/21/2025 7:56 AM [facility] Comment:eGFR calculated with 2020 CKD-EPI equation. Vegetarian diet, extremely high or low muscle mass, and may affect results. Cystatin C with Glomerular Filtration Rate is a suitable alternative for these patients. ANION GAP 10 8 - 16 mmol/L 07/21/2025 7:56 AM CDT [facility] Blood Venipuncture / Unknown 07/21/2025 5:45 AM CDT 07/21/2025 6:21 AM CDT Narrative [facility] - 07/21/2025 7:56 AM CDT Samples containing indocyanine green cause interferences on Total and/or Direct Bilirubin and must not be measured. us Kerwin Fulton PA-C CHEMISTRY ORDERABLES [facility] al [id number] [address] [place] [address] * CT GUIDED BIOPSY (07/20/2025 4:05 PM CDT) Anatomical Region Laterality Modality Computed Tomogra phy 07/20/2025 3:36 PM CDT Impressions 07/20/2025 4:41 PM CDT Impression: CT-guided right iliac sclerotic bone lesion biopsy. DICTATION LOCATION: Location 1 - [facility] Narrative 07/20/2025 4:[address]-GUIDED RIGHT ILIAC SCLEROTIC BONE LESION BIOPSY TIME/DATE: 07/20/2025 4:05 PM. IR: Ryan Daniels MD CLINICAL INFORMATION/INDICATION: Female of 75 years age with history of breast cancer and diffuse osseous sclerotic lesions concerning for metastatic disease. CONSENT: The indications, procedures, benefits, and risks (including but not limited to infection and bleeding) were discussed with the patient and informed consent was obtained per protocol. SEDATION: Intravenous conscious sedation - Versed 1 mg and Fentanyl 50 mcg TOTAL SEDATION TIME: 15 minutes Procedure in detail: The patient was placed in a prone position on the CT table and a limited non-contrast CT examination was performed with radio-opaque grid markers over the region of interest. A percutaneous entry site was marked on the skin to access the right iliac bone. The patient received intravenous Versed and Fentanyl for conscious sedation. A qualified radiology nurse monitored the patient's vital signs throughout the procedure. The marked site and skin around the region was prepped and draped in a sterile fashion. Local anesthesia was provided with 1% Lidocaine. An 11 gauge coaxial needle system was advanced in stages under CT guidance. Two 13-gauge core biopsies of right iliac sclerotic lesion were obtained. The samples were sent to pathology. A dressing was applied. The patient tolerated the procedure well and was transferred to the holding area in stable condition. Procedure Note Ryan Daniels MD - 07/20/2025 CT-GUIDED RIGHT ILIAC SCLEROTIC BONE LESION BIOPSY TIME/DATE: 07/20/2025 4:05 PM. IR: Ryan Daniels MD CLINICAL INFORMATION/INDICATION: Female of 75 years age with history of breast cancer and diffuse osseous sclerotic lesions concerning for metastatic disease. CONSENT: The indications, procedures, benefits, and risks (including but not limited to infection and bleeding) were discussed with the patient and informed consent was obtained per protocol. SEDATION: Intravenous conscious sedation - Versed 1 mg and Fentanyl 50 mcg TOTAL SEDATION TIME: 15 minutes Procedure in detail: The patient was placed in a prone position on the CT table and a limited non-contrast CT examination was performed with radio-opaque grid markers over the region of interest. A percutaneous entry site was marked on the skin to access the right iliac bone. The patient received intravenous Versed and Fentanyl for conscious sedation. A qualified radiology nurse monitored the patient's vital signs throughout the procedure. The marked site and skin around the region was prepped and draped in a sterile fashion. Local anesthesia was provided with 1% Lidocaine. An 11 gauge coaxial needle system was advanced in stages under CT guidance. Two 13-gauge core biopsies of right iliac sclerotic lesion were obtained. The samples were sent to pathology. A dressing was applied. The patient tolerated the procedure well and was transferred to the holding area in stable condition. Impression: CT-guided right iliac sclerotic bone lesion biopsy. DICTATION LOCATION: Location 1 - [facility] us Dada Khan MD CT ORDERABLES Final Result * PATHOLOGY (07/20/2025 4:05 PM CDT) CASE REPORT Surgical Pathology Report Case: [id number] Authorizing Provider: Ryan Daniels MD Collected: 07/20/2025 04:05 PM Ordering Location: [facility] Received: 07/21/2025 07:28 AM Oncology Pathologist: Chas Valenzuela MD Specimen: Bone, right iliac bone biopsy 9:21 AM [facility] FINAL DIAGNOSIS Bone, right iliac, biopsy: - Metastatic carcinoma, consistent with breast primary (favor invasive lobular carcinoma) - ER: 7/8 (positive), KY: 0/8 (negative), HER2 IHC: 2+ (equivocal) 9:21 AM [facility] at [address] [facility] DIAGNOSIS COMMENT HER2 FISH testing has been ordered and the results will be reported in an addendum. 9:21 AM [facility] GROSS DESCRIPTION Received in one container labeled Damien Pulido and right iliac bone biopsy are 4 cylindrical cores of firm harris-alves bone measuring 0.8, 0.6, 0.6 and 1.3 cm in length and each measuring 0.3 cm in diameter. Additionally received in the container is a 2.0 x 1.0 x 0.1 cm aggregate of red-alves soft tissue and hemorrhagic material. The tissue is entirely submitted as follows: A1 and A2-bone cores following decalcification; A3-soft tissue and hemorrhagic material. Cassette(s) decalcified in decal ll at the bench. ELH 9:21 AM [facility] MICROSCOPIC DESCRIPTION The slides are labeled [id number] and Damien Pulido. Sections show bone trabeculae infiltrated by single epithelioid cells which stain positive for pankeratin, GATA3, and ER by immunohistochemistry . These findings are consistent with metastatic carcinoma of breast origin. Immunohistochemistry for E-cadherin shows reduced to absent expression and p120 shows abnormal cytoplasmic expression, consistent with a lobular phenotype. 9:21 AM [facility] CLINICAL INFORMATION Right iliac bone biopsy No Dx found. 75 y.o. female with PMHX of breast cancer with diffuse skeletal osseous sclerotic lesions. 9:21 AM [facility] SPECIAL AND IMMUNOPEROXIDASE STAINS This addendum is issued to report results of biomarker testing. Diagnosis: Metastatic breast carcinoma Site: Bone, right iliac Block #: A1 Cold Ischemia Time: Unknown Duration of Fixation: Unknown Internal Control: Appropriately reactive Comment: Decalcification may alter the intensity and proportion of staining. Results should be interpreted with caution and compared to previous results, if known. Test Results HER2 Protein Overexpression (immunohistochemistr y) = 2+ Cases with equivocal staining (2+) will be reflexed to HER2 in situ hybridization testing and the results reported in an addendum. ER Total Score (immunohistochemistr y) = 7 Proportion Score = 5 Intensity Score = 2 KY Total Score (immunohistochemistr y) = 0 Proportion Score = 0 Intensity Score = 0 HER2 membrane staining (Antibody Clone 4B5) is scored on a 0 to 3+ scale in accordance to 2023 CAP/ASCO guidelines. Estrogen and progesterone receptor content is assayed in a semiquantitative manner utilizing the ER antibody (Clone SP1) and KY antibody (Clone 1E2). Results are reported as a total score (range 0 to 8) which equals the sum of the proportion score (percentage of tumor cells with positive nuclear staining) and the intensity score (average staining intensity of all positive tumor cells). Reference Ranges HER2 score 0 (Negative) = no expression 0+ (Negative) = incomplete, faint membrane staining and within <10% of tumor cells 1+ (Negative) = incomplete, faint membrane staining and within >10% of tumor cells 2+ (Equivocal) = weak/moderate complete membrane staining within >10% of tumor cells. 3+ (Positive) = circumferential membrane staining that is complete and intense ER and KY Total Score 0-2 = negative >= 3 = positive ER and KY Proportion Score (% positive cells) 0 = none 1 = > 0 to < 1% 2 = > or = 1% to 10% 3 = > 10% to 33.3% 4 = > 33.3% to 66.7% 5 = > 66.7% ER and KY Intensity Score (average staining intensity) 0 = none 1 = weak 2 = intermediate 3 = strong * Studies are performed on neutral-buffered formalin-fixed paraffin embedded sections unless otherwise specified. These assays have not been validated on decalcified tissues. Results should be interpreted with caution given the likelihood of false negativity on decalcified tissues. * Patients with breast cancers that are HER2 IHC 3+ or IHC 2+/JONATHON amplified may be eligible for several therapies that disrupt HER2 signaling pathways. Invasive breast cancers that test 'HER2-negative' (IHC 0, 0+, 1+ or 2+/JONATHON not-amplified) are more specifically considered 'HER2-negative for protein overexpression/gene amplification' since non-overexpressed levels of the HER2 protein may be present in these cases. Patients with breast cancers that are HER2 IHC 0+, 1+ or IHC 2+ /JONATHON not-amplified may be eligible for a treatment that targets non-amplified levels of HER2 expression in the metastatic setting. Currently patients with no membrane staining by IHC (0) are ineligible/excluded. H ER2 low is considered IHC Score 1+ or 2+/JONATHON negative, and H ER2 ultralow is considered HER2 IHC Score of 0 (pattern 0+) with membrane staining that is incomplete and faint/barely perceptible in less than or equal to 10% of tumor cells. * When the ER Proportion Score = 2 the cancer in the sample has a low level (1-10%) of ER expression by IHC and should be reported as L ow Positive . There are limited data on the overall benefit of endocrine therapies for patients with low level (1-10%) ER expression but they currently suggest possible benefit, so patients are considered eligible for endocrine treatment. There are data that suggest invasive cancers with these results are heterogeneous in both behavior and biology and often have gene expression profiles more similar to ER negative cancers. 5 9:21 AM CDT [facility] LABORATORY SERVICES [facility] COMMENT Special stain, immunohistochemical, and/or in situ hybridization results are interpreted with controls that demonstrate appropriate staining reactions. Note on use of immunohistochemistry reagents and in situ hybridization probes: These tests were developed and their performance characteristics determined by [facility] Department of Laboratory Medicine. It has not been cleared or approved by the U.S. Food and Drug Administration. The FDA has determined that such clearance or approval is not necessary. The test is used for clinical purposes. It should not be regarded as investigational or for research. This laboratory is certified to perform high complexity testing. Frozen section/operating room consultation, gross examination and dissection, and case sign out may have been performed in part or completely in the following laboratories: [facility], CLIA #[id number] [address] [place] [address] [facility] #[id number] [address] [place] [address] [facility] [place], [place] #[id number] [address] [facility] [place] [address] This report was created with the [employer] voice-activated dictation system. Inherent to this system is the possibility of syntax, grammar, punctuation and other errors that could impact the interpretation of the report. If there are interpretative questions about aspects of this report, please contact the performing pathologist. 9:21 AM CDT [facility] [facility] Tissue ENTIRE BONE ORGAN / Unknown Collection / Unknown 07/20/2025 4:05 PM CDT 07/21/2025 7:28 AM CDT Comment:Right iliac bone bio psy us Ryan Daniels MD PATHOLOGY/CYTOLOGY ORDERABLES F inal Result [facility]# [id number] [address] [place] [address] * CT PELVIS WO CONTRAST (07/19/2025 11:27 AM CDT) Anatomical Region Laterality Modality Pelvis Computed Tomogra phy 07/19/2025 11:2 7 AM CDT Impressions 07/19/2025 11:36 AM CDT IMPRESSION: Extensive skeletal metastatic disease. If a known primary has not been diagnosed a bone biopsy can be obtained to confirm. Consult with interventional radiology. Consider chest abdomen pelvis CT with IV and oral contrast for further evaluation. DICTATION LOCATION: Location 4 Narrative 07/19/2025 11:36 AM CDT EXAM: CT PELVIS WO CONTRAST DATE: 07/19/2025 HISTORY: Aggressive bone lesion seen on x-ray. COMPARISON: The previously mentioned radiograph is not available for review.. TECHNIQUE: Axial images with reconstructions. Radiation dose reduction technique was utilized. CONTRAST: None FINDINGS extensive blastic metastatic disease with sclerotic lesions seen throughout the iliac bones, sacrum, proximal femurs, and lumbar spine. No obvious pathologic fractures. There is moderate right and mild left hip joint osteoarthritis. Tiny cysts lucencies in the left femoral head neck junction or due to synovial herniation pits and are well corticated. There do not appear to be lytic lesions. There are numerous metastatic lesions in the intertrochanteric femurs and femoral heads bilaterally. Do not have an appearance that would increase risk for pathologic fracture of the cortex is intact. Most of these lesions are in the medullary space or adjacent endosteal location. The pelvic soft tissues is no bowel dilation or obvious masses. There is diverticulosis of the colon. No pelvic or abdominal fluid collections. Procedure Note Fredrick Elizabeth MD - 07/19/2025 EXAM: CT PELVIS WO CONTRAST DATE: 07/19/2025 HISTORY: Aggressive bone lesion seen on x-ray. COMPARISON: The previously mentioned radiograph is not available for review.. TECHNIQUE: Axial images with reconstructions. Radiation dose reduction technique was utilized. CONTRAST: None FINDINGS extensive blastic metastatic disease with sclerotic lesions seen throughout the iliac bones, sacrum, proximal femurs, and lumbar spine. No obvious pathologic fractures. There is moderate right and mild left hip joint osteoarthritis. Tiny cysts lucencies in the left femoral head neck junction or due to synovial herniation pits and are well corticated. There do not appear to be lytic lesions. There are numerous metastatic lesions in the intertrochanteric femurs and femoral heads bilaterally. Do not have an appearance that would increase risk for pathologic fracture of the cortex is intact. Most of these lesions are in the medullary space or adjacent endosteal location. The pelvic soft tissues is no bowel dilation or obvious masses. There is diverticulosis of the colon. No pelvic or abdominal fluid collections. IMPRESSION: Extensive skeletal metastatic disease. If a known primary has not been diagnosed a bone biopsy can be obtained to confirm. Consult with interventional radiology. Consider chest abdomen pelvis CT with IV and oral contrast for further evaluation. DICTATION LOCATION: Location [address] DO [address] ORDERABLES Final Result * (ABNORMAL) CBC WITHOUT DIFFERENTIAL (07/19/2025 3:29 AM CDT) Only the most recent of2 resultswithin the time period is included. WBC 6.1 4.0 - 9.8 K/uL 07/19/2025 4:09 AM CDT [facility] SERVICES [facility] RBC 2.86(L) 3.90 - 4.90 M/uL 07/19/2025 4:09 AM CDT [facility]ORY SERVICES - [facility] HEMOGLOBIN 9.2(L) 11.8 - 14.8 g/dL 07/19/2025 4:09 AM CDT [facility] SERVICES - . [facility] HEMATOCRIT 28.7(L) 35.5 - 44.0 % 07/19/2025 4:09 AM T [facility] SERVICES - . [facility] MCV 100.3(H) 82.0 - 99.0 fL 07/19/2025 4:09 AM CDT [facility]ORY SERVICES - [facility] MCH 32.2 27.2 - 32.6 pg 07/19/2025 4:09 AM CDT [facility] SERVICES - [facility] MCHC 32.1 31.5 - 35.5 g/dL 07/19/2025 4:09 AM T [facility] SERVICES - . [facility] PLATELETS 184 140 - 350 K/uL 07/19/2025 4:09 AM T [facility] SERVICES - [facility] MPV 9.7 9.3 - 12.4 fL 07/19/2025 4:09 AM T [facility] SERVICES - [facility] RDW 17.9(H) 11.5 - 14.5 % 07/19/2025 4:09 AM [facility] LABORATORY SERVICES - [facility] RDW-STDEV 66.1(H) 37.1 - 48.7 fL 07/19/2025 4:09 AM T [facility]ORY SERVICES - [facility] Blood Venipuncture / Unknown 07/19/2025 3:29 AM CDT 07/19/2025 3:59 AM CDT us Jacquelin Josue DO HEMATOLOGY ORDERABLES Final Result [facility] [facility]# [id number] [address] [facility] [place] [place] [address] * MRI BRAIN W WO CONTRAST (07/19/2025 3:15 AM CDT) Anatomical Region Laterality Modality Head Magnetic Resonan ce 07/19/2025 3:15 AM CDT Impressions 07/19/2025 7:43 AM CDT IMPRESSION: 1. Diffuse osseous metastatic disease in the skull and visible cervical spine. No brain metastases identified. DICTATION LOCATION: Location 4 Narrative 07/19/2025 7:43 AM CDT EXAMINATION: MRI BRAIN W WO CONTRAST HISTORY: Brain metastases suspected. Encounter for blood typing TECHNIQUE: MRI of the brain was performed prior to and following the uneventful administration of 15 mL ProHance intravenous gadolinium contrast according to a tumor protocol. FINDINGS: No prior study is available for comparison at the time of this dictation. No evidence of acute or chronic hemorrhage is identified. No evidence of acute cerebral infarction is seen. The ventricles are of normal size, shape, and morphology. No mass effect or midline shift is seen. Periventricular and subcortical white matter FLAIR hyperintensities likely represent sequelae of chronic small vessel ischemic disease. No parenchymal enhancing lesions are identified. The corpus callosum and sella appear normal. The posterior fossa, brainstem, and craniocervical junction appear normal. There is severe right maxillary sinus disease and mild disease in the remaining paranasal sinuses. Patchy mastoid effusions are present. Visible orbits appear normal. Normal flow voids are demonstrated in the carotid arteries and basilar artery. There is mottled decreased T1 hypointensity representing diffuse osseous metastatic disease throughout the calvarium and visible cervical spine. Procedure Note Rei Ocampo MD - 07/19/2025 EXAMINATION: MRI BRAIN W WO CONTRAST HISTORY: Brain metastases suspected. Encounter for blood typing TECHNIQUE: MRI of the brain was performed prior to and following the uneventful administration of 15 mL ProHance intravenous gadolinium contrast according to a tumor protocol. FINDINGS: No prior study is available for comparison at the time of this dictation. No evidence of acute or chronic hemorrhage is identified. No evidence of acute cerebral infarction is seen. The ventricles are of normal size, shape, and morphology. No mass effect or midline shift is seen. Periventricular and subcortical white matter FLAIR hyperintensities likely represent sequelae of chronic small vessel ischemic disease. No parenchymal enhancing lesions are identified. The corpus callosum and sella appear normal. The posterior fossa, brainstem, and craniocervical junction appear normal. There is severe right maxillary sinus disease and mild disease in the remaining paranasal sinuses. Patchy mastoid effusions are present. Visible orbits appear normal. Normal flow voids are demonstrated in the carotid arteries and basilar artery. There is mottled decreased T1 hypointensity representing diffuse osseous metastatic disease throughout the calvarium and visible cervical spine. IMPRESSION: 1. Diffuse osseous metastatic disease in the skull and visible cervical spine. No brain metastases identified. DICTATION LOCATION: Location 4 us Lindsay Miramontes MD MR ORDERABLES Final Result * MRI THORACIC W WO CONTRAST (07/19/2025 3:07 AM CDT) Anatomical Region Laterality Modality Spine Magnetic Resonan ce 07/19/2025 3:08 AM CDT Impressions 07/19/2025 7:47 AM CDT IMPRESSION: 1. Diffuse osseous metastatic disease in the thoracic spine as well as the visible lower cervical spine and upper lumbar spine. No pathologic fractures or extra-axial vertebral soft tissue extension of tumor identified. DICTATION LOCATION: Location 4 Narrative 07/19/2025 7:47 AM CDT EXAMINATION: MRI THORACIC W WO CONTRAST HISTORY: Mid-back pain. Encounter for blood typing TECHNIQUE: MRI of the thoracic spine was performed prior to and following the uneventful administration of 15 mL ProHance intravenous gadolinium contrast according to standard protocol. FINDINGS: Comparison is made with a study from July 17, 2025. The alignment is normal. There are T1 hypointense enhancing marrow replacing lesions throughout the thoracic spine and in the visible lower cervical and upper lumbar spine representing osseous metastatic disease. No pathologic fractures or extra-axial vertebral soft tissue extension of tumor into the central canal is identified. The spinal cord appears normal. No abnormal enhancement is identified in the spinal canal. The intervertebral discs appear normal. No central canal stenosis is seen. The facets appear normal. No neural foraminal stenosis is seen. Bilateral pleural effusions and right renal cysts are partially imaged. Procedure Note Rei Ocampo MD - 07/19/2025 EXAMINATION: MRI THORACIC W WO CONTRAST HISTORY: Mid-back pain. Encounter for blood typing TECHNIQUE: MRI of the thoracic spine was performed prior to and following the uneventful administration of 15 mL ProHance intravenous gadolinium contrast according to standard protocol. FINDINGS: Comparison is made with a study from July 17, 2025. The alignment is normal. There are T1 hypointense enhancing marrow replacing lesions throughout the thoracic spine and in the visible lower cervical and upper lumbar spine representing osseous metastatic disease. No pathologic fractures or extra-axial vertebral soft tissue extension of tumor into the central canal is identified. The spinal cord appears normal. No abnormal enhancement is identified in the spinal canal. The intervertebral discs appear normal. No central canal stenosis is seen. The facets appear normal. No neural foraminal stenosis is seen. Bilateral pleural effusions and right renal cysts are partially imaged. IMPRESSION: 1. Diffuse osseous metastatic disease in the thoracic spine as well as the visible lower cervical spine and upper lumbar spine. No pathologic fractures or extra-axial vertebral soft tissue extension of tumor identified. DICTATION LOCATION: Location 4 Lindsay Miramontes MD MR ORDERABLES Final Result * (ABNORMAL) POC GLUCOSE (07/18/2025 12:03 PM CDT) GLUCOSE POC 103(H) 74 - 99 mg/dL 07/18/2025 12:03 PM CDT [facility] SPECIMEN SOURCE, GLUCOSE POC Whole Blood 07/18/2025 12:03 PM CDT [facility] COMMENT, GLU POC Alerted Nurse/BETSY/D r 07/18/2025 12:03 PM CDT [facility] Blood, whole 07/18/2025 12:0 3 PM CDT 07/18/2025 1:28 PM CDT Jacquelin Josue DO POINT OF CARE TESTING Final Result [facility]# [id number] [address] [facility] [place] [address] * US RENAL AND BLADDER (07/18/2025 9:52 AM CDT) Anatomical Region Laterality Modality Abdomen Ultrasound 07/18/2025 9:53 AM CDT Impressions 07/18/2025 10:37 AM CDT IMPRESSION: Right renal cysts. No acute abnormality. DICTATION LOCATION: Location 1 - [facility] Narrative 07/18/2025 10:37 AM CDT RENAL ULTRASOUND DATE: 07/18/2025 9:52 AM HISTORY: Bilateral flank pain COMPARISON: None FINDINGS: Visualization of the right kidney is somewhat limited by shadowing from overlying ribs. The right kidney measures 10.2 cm long. The left kidney measures 11.5 cm long. Renal echogenicity is within normal limits. Two adjacent cysts in the superior pole of the right kidney measure 2.2 cm and 1.9 cm. No focal left renal lesions are noted. There is no hydronephrosis. The minimally distended bladder is unremarkable. Procedure Note Amy Ching MD - 07/18/2025 RENAL ULTRASOUND DATE: 07/18/2025 9:52 AM HISTORY: Bilateral flank pain COMPARISON: None FINDINGS: Visualization of the right kidney is somewhat limited by shadowing from overlying ribs. The right kidney measures 10.2 cm long. The left kidney measures 11.5 cm long. Renal echogenicity is within normal limits. Two adjacent cysts in the superior pole of the right kidney measure 2.2 cm and 1.9 cm. No focal left renal lesions are noted. There is no hydronephrosis. The minimally distended bladder is unremarkable. IMPRESSION: Right renal cysts. No acute abnormality. DICTATION LOCATION: Location 1 - [facility] Harshad Lynn NP US ORDERABLES Final Result * CT CHEST WO CONTRAST (07/17/2025 11:41 PM CDT) Anatomical Region Laterality Modality Chest Computed Tomogra phy 07/17/2025 11:3 0 PM CDT Impressions 07/18/2025 12:22 AM CDT IMPRESSION: 1. Small moderate bilateral pleural effusions with mild pulmonary edema. No confluent pneumonia. 2. Extensive osseous metastatic disease. DICTATION LOCATION: Location 4 Narrative 07/18/2025 12:22 AM CDT EXAMINATION: CT CHEST WO CONTRAST DATE: 07/18/2025 12:16 AM HISTORY: Pneumonia. Breast cancer. TECHNIQUE: Computed tomographic images of the chest were obtained without contrast, according to the standard protocol. The examination was performed with the adjustment of mA according to the patient size and/or the use of Iterative Reconstruction Technique. COMPARISON: None available. FINDINGS: Noncontrast technique limits sensitivity and specificity. Chest: LUNGS: Small moderate bilateral pleural effusions. There is fibrotic scarring in the anterior aspect of the right lung from prior radiation. Linear scarring is seen in the right lung. There is rounded atelectasis in the right lower lobe. There is moderate dependent bilateral atelectasis. There is mild pulmonary edema. No confluent pneumonia. HEART/VESSELS: Mild cardiomegaly with left ventricular enlargement. Coronary artery calcifications are mild. MEDIASTINUM/HAM: No substantial lymphadenopathy. CHEST WALL/LOWER NECK: Right mastectomy. 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 There is extensive sclerotic metastases throughout the visualized osseous structures. Other: Venous collaterals are noted in the chest wall. cyst in the right kidney. Small duodenal diverticulum. Procedure Note Harshad Porter MD - 07/18/2025 EXAMINATION: CT CHEST WO CONTRAST DATE: 07/18/2025 12:16 AM HISTORY: Pneumonia. Breast cancer. TECHNIQUE: Computed tomographic images of the chest were obtained without contrast, according to the standard protocol. The examination was performed with the adjustment of mA according to the patient size and/or the use of Iterative Reconstruction Technique. COMPARISON: None available. FINDINGS: Noncontrast technique limits sensitivity and specificity. Chest: LUNGS: Small moderate bilateral pleural effusions. There is fibrotic scarring in the anterior aspect of the right lung from prior radiation. Linear scarring is seen in the right lung. There is rounded atelectasis in the right lower lobe. There is moderate dependent bilateral atelectasis. There is mild pulmonary edema. No confluent pneumonia. HEART/VESSELS: Mild cardiomegaly with left ventricular enlargement. Coronary artery calcifications are mild. MEDIASTINUM/HAM: No substantial lymphadenopathy. CHEST WALL/LOWER NECK: Right mastectomy. 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 There is extensive sclerotic metastases throughout the visualized osseous structures. Other: Venous collaterals are noted in the chest wall. cyst in the right kidney. Small duodenal diverticulum. IMPRESSION: 1. Small moderate bilateral pleural effusions with mild pulmonary edema. No confluent pneumonia. 2. Extensive osseous metastatic disease. DICTATION LOCATION: Location [address] ORDERABLES Final Result * (ABNORMAL) HEMOGLOBIN AND HEMATOCRIT (07/17/2025 5:39 PM CDT) HEMOGLOBIN 9.3(L) 11.8 - 14.8 g/dL 07/17/2025 6:35 PM CDT [facility] Comment:Significant change f rom prior result, correlate clinically and redraw if necessary. HEMATOCRIT 28.1(L) 35.5 - 44.0 % 07/17/2025 6:35 PM CDT [facility] Blood Venipuncture / Unknown 07/17/2025 5:39 PM CDT 07/17/2025 5:47 PM CDT Jacquelin Josue DO HEMATOLOGY ORDERABLES Final Result Performing Organization Address [facility]/ZIP Co de Phone Number [facility] CLIA# [id number] [address] [place] [id number] * TRANSFUSE RED BLOOD CELLS (07/17/2025 3:02 PM CDT) Jacquelin Josue DO BLOOD TRANSFUSION ORDERABLES Final Result * FOLATE, SERUM (07/17/2025 1:07 PM CDT) Pathologist [facility] [place] FOLATE, SERUM >20.0 >4.5 ng/mL 07/17/2025 2:26 PM CDT [facility] Blood Venipuncture / Unknown 07/17/2025 1:07 PM CDT 07/17/2025 1:11 PM CDT Moni Mckeon MD CHEMISTRY ORDERABLES Final Resu lt [facility] CLIA# [id number] [address] [place] [address] * VITAMIN B12 AND FOLATE (07/17/2025 1:07 PM CDT) Pathologist [facility] [place] VITAMIN B12 940 232 - 1,245 pg/mL 07/17/2025 2:26 PM CDT [facility] Comment:It has been reported that between 5 to 10% of patients with values between 200 and 400 pg/mL may experience neuropsychiatric and hematologic abnormalities due to occult B12 deficiency. Less than 1% of patients with values above 400 pg/mL will have symptoms. FOLATE, SERUM >20.0 >4.5 ng/mL 07/17/2025 2:26 PM CDT [facility] Blood Venipuncture / Unknown 07/17/2025 1:07 PM CDT 07/17/2025 1:11 PM CDT Harshad Lynn NP CHEMISTRY ORDERABLES Final Resu lt [facility]# [id number] [address] [place] [address] * (ABNORMAL) LACTATE DEHYDROGENASE (07/17/2025 1:07 PM CDT) LD (LACTATE DEHYDROGENASE) 232(H) 135 - 214 U/L 07/17/2025 2:00 PM CDT [facility] LABORATORY SERVICES [facility] Blood Venipuncture / Unknown 07/17/2025 1:07 PM CDT 07/17/2025 1:11 PM CDT Moni Mckeon MD CHEMISTRY ORDERABLES Final Resu lt [facility]# [id number] [address] [place] [address] * VERIFICATION BLOOD GROUP (07/17/2025 9:10 AM CDT) ABO GROUP A 07/17/2025 10:05 AM CDT [facility] SERVICES -- [facility] RH (D) TYPE Positive 07/17/2025 10:05 AM CDT [facility]ORY SERVICES -- [facility] Blood Venipuncture / Unknown 07/17/2025 9:10 AM CDT 07/17/2025 9:16 AM CDT Fredrick Hernandez MD BLOOD BANK ORDERABLES Final Result [id number] [address] [place] [address] * TYPE AND SCREEN (07/17/2025 8:36 AM CDT) ABO GROUP A 07/17/2025 9:43 AM CDT [facility]ORY SERVICES -- [facility] RH (D) TYPE Positive 07/17/2025 9:43 AM CDT [facility]ORY SERVICES -- [facility] ANTIBODY SCREEN Negative 07/17/2025 9:43 AM CDT [facility]ORY SERVICES -- [facility] Blood Venipuncture / Unknown 07/17/2025 8:36 AM CDT 07/17/2025 8:44 AM CDT Jacquelin Josue DO BLOOD BANK ORDERABLES Edited Result - Final Performing Organization Address [facility]/ZIP Co de Phone Number [facility] [employer] SERVICES -- [facility]# [id number] [address] [place] [address] * (ABNORMAL) TSH (07/17/2025 8:36 AM CDT) TSH 14.50(H) 0.27 - 4.20 uIU/mL 07/17/2025 1:46 PM CDT [facility] LAB[facility]ATORY SERVICES - [facility] Blood Venipuncture / Unknown 07/17/2025 8:36 AM CDT 07/17/2025 8:43 AM CDT Harshad Lynn NP CHEMISTRY ORDERABLES Final Resu lt [id number] [address] [place] [address] * PREPARE RED BLOOD CELLS (07/17/2025 7:37 AM CDT) Pathologist [facility] [place] COMPONENT TYPE [id number] [facility] -- [facility] COMPONENT IDENTIFICATION [id number] [facility] -- [facility] UNIT ABO A [facility] -- [facility] UN[facility] RH POS [facility] -- [facility] CROSSMATCH Compatible [facility] -- [facility] COMPONENT STATUS Transfused [facility] LABORATORY SERVICES -- [facility] COMPONENT EXPIRATION DATE/TIME [id number] [facility] -- [facility] COMPONENT CODING SYSTEM 6200 [facility] -- [facility] VOLUME, BLOOD PRODUCT 350 [facility] -- [facility] Other, specify 07/17/2025 7: 37 AM CDT Jacquelin Josue DO LAB TRANSFUSION ORDERABLES E dited Result - Final [facility] SERVICES -- [facility] CLIA# [id number] [address] [facility] [place] [address] * MANUAL DIFFERENTIAL (07/17/2025 7:03 AM CDT) [facility] PLATELET EST. Consistent w Count 07/17/2025 8:16 AM CDT [facility] LAB[facility]ATORY SERVICES - [facility] ANISOCYTOSIS 1+ /hpf 07/17/2025 8:16 AM CDT [facility]ORY SERVICES - . [facility] MACROCYTES 1+ /hpf 07/17/2025 8:16 AM CDT [facility]ATORY SERVICES - . [facility] POLYCHROMASIA 1+ /hpf 07/17/2025 8:16 AM CDT [facility]ORY SERVICES - . [facility] Blood Venipuncture / Unknown 07/17/2025 7:03 AM CDT 07/17/2025 7:08 AM CDT Lindsay Miramontes MD HEMATOLOGY ORDERABLES COM Fin al Result [facility] LAB[facility]ATORY SERVICES - [facility] CLIA# [id number] [address] [facility] [address] [place] [address] * (ABNORMAL) CBC WITH DIFFERENTIAL (07/17/2025 7:03 AM CDT) Only the most recent of2 resultswithin the time period is included. Pathologist [facility] [place] WBC 4.1 4.0 - 9.8 K/uL 07/17/2025 7:35 AM CDT [employer] LABORATORY SERVICES - [facility] RBC 1.74(L) 3.90 - 4.90 M/uL 07/17/2025 7:35 AM CDT [employer] LABORATORY SERVICES [facility] HEMOGLOBIN 5.8(LL) 11.8 - 14.8 g/dL 07/17/2025 7:35 AM CDT [employer] LABORATORY SERVICES [facility] Comment: Verified by repeat analysis. Significant change from prior result, correlate clinically and redraw if necessary. HEMATOCRIT 18.0(L) 35.5 - 44.0 % 07/17/2025 7:35 AM CDT [employer] LABORATORY SERVICES [facility] MCV 103.4(H) 82.0 - 99.0 fL 07/17/2025 7:35 AM CDT [employer] LABORATORY SERVICES - [facility] MCH 33.3(H) 27.2 - 32.6 pg 07/17/2025 7:35 AM CDT [employer] LABORATORY SERVICES [facility] MCHC 32.2 31.5 - 35.5 g/dL 07/17/2025 7:35 AM CDT [employer] [facility] [facility] RDW 17.0(H) 11.5 - 14.5 % 07/17/2025 7:35 AM CDT [employer] [facility] RDW-STDEV 64.0(H) 37.1 - 48.7 fL 07/17/2025 7:35 AM CDT [employer] [facility] PLATELETS 117(L) 140 - 350 K/uL 07/17/2025 7:35 AM CDT [employer] [facility] MPV 9.6 9.3 - 12.4 fL 07/17/2025 7:35 AM CDT [employer] [facility] NEUTROPHILS 84 % 07/17/2025 7:35 AM CDT [facility] LYMPHOCYTES 8 % 07/17/2025 7:35 AM CDT [facility] MONOCYTES 5 % 07/17/2025 7:35 AM CDT [facility] EOSINOPHILS 2 % 07/17/2025 7:35 AM T [facility] BASOPHILS 0 % 07/17/2025 7:35 AM CDT [facility] IMMATURE GRANULOCYTES 2 % 07/17/2025 7:35 AM CDT [facility] Comment:IG (Immature Granulo cyte) count includes Metamyelocytes, Myelocytes, and Promyelocytes NEUTROPHIL ABSOLUTE 3.39 1.90 - 7.00 K/uL 07/17/2025 7:35 AM CDT [facility] LYMPHOCYTE ABSOLUTE 0.31(L) 0.70 - 4.50 K/uL 07/17/2025 7:35 AM CDT [facility] MONOCYTE ABSOLUTE 0.22 0.10 - 1.30 K/uL 07/17/2025 7:35 AM CDT [facility] EOSINOPHIL ABSOLUTE 0.08 0.00 - 0.70 K/uL 07/17/2025 7:35 AM CDT [facility] BASOPHILS ABSOLUTE 0.00 0.00 - 0.20 K/uL 07/17/2025 7:35 AM T [facility] IMMATURE GRANULOCYTES ABSOLUTE 0.06(H) 0.00 - 0.03 K/uL 07/17/2025 7:35 AM T [facility] Blood Venipuncture / Unknown 07/17/2025 7:03 AM CDT 07/17/2025 7:08 AM CDT us Lindsay Miramontes MD HEMATOLOGY ORDERABLES Final R esult [facility] CLIA# [id number] [facility] [place] [place] [address] * PROCALCITONIN (07/16/2025 10:22 AM CDT) PROCALCITONIN 0.10 <=0.25 ng/mL 07/16/2025 11:15 AM CDT [facility] Blood Venipuncture / Unknown 07/16/2025 10:22 AM CDT 07/16/2025 10:30 AM CDT Narrative [facility] - 07/16/2025 11:15 AM CDT The utility of procalcitonin is limited/NOT recommended in certain populations (e.g. newborns, dialysis/ESRD, patients with recent major surgery/trauma/child, liver cirrhosis, viral hepatitis, certain cancers, etc.). Procalcitonin levels MUST be interpreted in the context of the patient's clinical condition and CANNOT be solely relied upon for diagnosis of infection. <0.25 ng/mL: Bacterial infection unlikely, particularly lower respiratory tract infections. <0.5 ng/mL: Low risk for progression to severe sepsis/septic shock. Localized infection possible. Measurements done early (<6 hours) after systemic process starts may still be low. 0.5-2 ng/mL: Moderate risk for progression to severe sepsis/septic shock. >2 ng/mL: High risk for progression to severe sepsis/septic shock. If antibiotics ARE administered, repeat testing is recommended every 2-3 days to help guide antibiotic cessation. Once a decrease of 80% or more has occurred from baseline, discontinuation of antibiotics should strongly be considered in clinically stable patients. Procalcitonin is produced in the setting of systemic inflammation, particularly bacterial infections. It is detectable within 2-4 hours and peaks within 6-24 hours. us Lindsay Miramontes MD CHEMISTRY ORDERABLES Final [id number] [address] [place] [address] * (ABNORMAL) IRON, TIBC, AND PERCENT SATURATION (07/16/2025 10:22 AM CDT) IRON 68 37 - 145 ug/dL 07/16/2025 2:35 PM CDT [facility] TIBC 231(L) 250 - 450 ug/dL 07/16/2025 2:35 PM CDT [facility] IRON % SATURATION 29 15 - 50 % 07/16/2025 2:35 PM CDT [facility] TRANSFERRIN 182(L) 200 - 360 mg/dL 07/16/2025 2:35 PM CDT [facility] Blood Venipuncture / Unknown 07/16/2025 10:22 AM CDT 07/16/2025 10:30 AM CDT Moni Mckeon MD CHEMISTRY ORDERABLES Final Resu lt [facility] CLIA# [id number] [address] [place] [address] * (ABNORMAL) C-REACTIVE PROTEIN (07/16/2025 10:22 AM CDT) CRP 53.8(H) <5.0 mg/L 07/16/2025 11:07 AM CDT [facility] Blood Venipuncture / Unknown 07/16/2025 10:22 AM CDT 07/16/2025 10:30 AM CDT Lindsay Miramontes MD CHEMISTRY ORDERABLES Final Re sult [facility] CLIA# [id number] [address] [place] [address] * HAPTOGLOBIN (07/16/2025 10:22 AM CDT) HAPTOGLOBIN 154 30 - 200 mg/dL 07/17/2025 12:33 PM CDT [facility] Blood Venipuncture / Unknown 07/16/2025 10:22 AM CDT 07/16/2025 10:30 AM CDT Moni Mckeon MD CHEMISTRY ORDERABLES Final Resu lt [facility] CLIA# [id number] [address] [place] [address] * (ABNORMAL) FERRITIN (07/16/2025 10:22 AM CDT) FERRITIN 493.0(H) 13.0 - 150.0 ng/mL 07/16/2025 2:35 PM CDT [facility] Blood Venipuncture / Unknown 07/16/2025 10:22 AM CDT 07/16/2025 10:30 AM CDT Moni Mckeon MD CHEMISTRY ORDERABLES Final Resu Performing Organization Address [facility]/ZIP Co de Phone Number [facility] CLIA# [id number] [address] [place] [address] * VITAMIN B12 LEVEL (07/16/2025 10:22 AM CDT) VITAMIN B12 922 232 - 1,245 pg/mL 07/16/2025 2:14 PM CDT [facility] Comment:It has been reported that between 5 to 10% of patients with values between 200 and 400 pg/mL may experience neuropsychiatric and hematologic abnormalities due to occult B12 deficiency. Less than 1% of patients with values above 400 pg/mL will have symptoms. Blood Venipuncture / Unknown 07/16/2025 10:22 AM CDT 07/16/2025 10:30 AM CDT Moni Mckeon MD CHEMISTRY ORDERABLES Final Resu lt Performing Organization Address City/[facility]/ZIP Co de Phone Number [facility] CLALMA# [id number] [address] [place] [place] [address] * MAMMO SCREENING BILAT (07/20/2024 2:42 PM [...] Maintenance Insurance MEDICARE PART A AND B [employer] [facility] MEDICARE PART A AND B [employer] Medicare Part D Advance Directives For more information, please contact: [phone] * Full Code (Latest Code Status on File) Date Activated Date Inactivated Comments 07/18/2025 8:34 AM 07/21/2025 6:19 PM Care Teams [employer] Sc[employer] Coordinator Relationship Specialty Start Date End Date Ankit Villafuerte DO [address] [facility] [address] [place] [id number] PCP - General Internal Medicine 07/30/24
--- OUTSIDE RECORDS SUMMARY | 2025-07-28 11:39 | XMS_ITS ---
Author Organization [facility] Address [address] [place] [address] Phone Care Team Providers Care Swing Type Lathe Operator Name Role Phone Unavailable Primary Care [...]
--- OUTSIDE RECORDS SUMMARY | 2025-07-28 11:39 | XMS_ITS | Clinical Summary ---
Author Organization [facility] Address [address] [place] [address] Phone Care Team Providers Care Logistics Engineering Manager Name Role Phone Unavailable Primary Care Provider Unavailabl e Allergies No known active allergies Medications furosemide (LASIX) 40 MG Tablet TAKE 1 TABLET BY ORAL ROUTE EVERY DAY 2 6 Active SYNTHROID 125 MCG Tablet TAKE 1 TABLET BY ORAL ROUTE EVERY DAY 2 6 Active montelukast (SINGULAIR) 10 MG Tablet Take 10 mg by mouth daily. 1 6 Active CREON [address] Particles TAKE ONE CAPSULE [...] patient's age to complete this topic Insurance [employer]
--- OUTSIDE RECORDS SUMMARY | 2025-07-28 11:40 | XMS_ITS ---
Author Organization [facility] Address [address] [place] [address] [place] [address] Care Team Providers Care Wine Fermenter Name Role Phone Noy, Ankit L Primary Care Provider [phone] Active Problems Problem Noted Date Diagnosed Date Hypercalcemia 07/16/2025 Breast cancer metastasized to bone 07/16/2025 Confusion 07/16/2025 Generalized muscle weakness 07/16/2025 Osteoporosis due to aromatase inhibitor 10/20/20 18 Screening for osteoporosis 12/21/2016 Malignant neoplasm of upper- outer quadrant of right female breast 08/27/2016 Cancer Staging:Clinical:Stage IIIB(T4, N0, M0) - Unsigned Acquired hypothyroidism 08/27/2016 Current Treatment and Therapy Plans No current plan information found. Past Treatment and Therapy Plans No past plan information found. Lifetime Dose Tracking * Chemical Lifetime Dose Automatic Entry Manual Entr y Effective Dose 41.29 mSv 41.29 mSv 0 mSv Total DLP 2,023.11 DLP 2,023.11 DLP 0 DLP CTDIvol Max 46.59 mGy 46.59 mGy 0 mGy
--- OUTSIDE RECORDS SUMMARY | 2025-07-28 11:40 | XMS_ITS | Clinical Summary ---
Author Organization [facility] Address [address] [place] [address] Care Team Providers Care Nursing Center Tutor Name Role Phone Ankit Villafuerte DO Primary Care Provider [phone] Allergies No known active allergies Medications warfarin [...] Comments Blood Pressure 137/83 09/28/2024 5:55 PM [employer] Pulse 73 09/28/2024 5:55 PM [employer] [employer] Temperature 36.2 C (97.1 F) 09/28/2024 5:55 PM [employer] Respiratory Rate 18 09/28/2024 5:55 PM [employer] Oxygen Saturation 98% 09/28/2024 5:55 PM [employer] Inhaled Oxygen Concentration - - Weight 97.1 kg (214 lb 1.1 oz) 09/28/2024 3:00 P M [employer] [employer] Height 175.3 cm (5' 9) 09/28/2024 3:00 PM [employer] [employer] Body Mass Index 31.61 09/28/2024 3:00 PM [employer] [employer] Plan of Treatment Health Maintenance Due Date Last Done Comments Colorectal Cancer Screening Colonoscopy (10 Years) 1950 Hepatitis C 1970 Zoster Vaccines (1 of 2) 2002 Annual Medicare Wellness Visit 2017 Mammogram Screening 06/29/2023 06/29/2021, 06/28/2020, 06/26/2019, Additional history exists COVID-19 Vaccine (3 - 2024- season) 2025 01/07/2021, 12/10/2020 DTaP, Tdap and Td Vaccines [...] age to complete this topic Insurance MEDICARE [facility] [employer] Jenn Rykert Care Teams Nursing Center Tutor Relationship Specialty Start Date End Date Ankit Villafuerte DO [address] [address] PCP - General INTERNAL MEDICINE 09/28/24
== END 2025-07-28 10:52 | disposition home or self-care (01) ==
LOC: ANHLAB 10:52
PROVIDERS: PCP Internal Medicine; Visit Provider Internal Medicine Hematology & Oncology
DX: C50.411 Malignant neoplasm of upper-outer quadrant of right female breast (principal); Z17.0 Estrogen receptor positive status [ER+]
CPT/HCPCS: 36415

== ENCOUNTER 2025-07-30 08:05 | Outpatient (CLI) | payer MEDICARE, SELFPAY ==
--- NOTE | ~2025-07-30 | MM_ITS ---
EXAMINATION: screening [facility] BI w abraham INDICATION: Asymptomatic, referred for screening mammogram. History of Right mastectomy 2016. COMPARISON: 07/20/2024 through 06/17/2018 TECHNIQUE: Full field digital CC, MLO views were obtained of LEFT breast with computer-aided detection to assist in interpretation of the study. FINDINGS: The breasts are heterogeneously dense, which may obscure small masses. An Asymmetry is seen on the MLO view in the Superior location in the left breast. No other focal dominant mass, architectural distortion, or suspicious microcalcifications are identified. There is skin thickening involving the inferior medial left breast. IMPRESSION: 1. An Asymmetry is seen on MLO view Superior location in the left breast. 2. Inferior medial skin thickening. RECOMMENDATION: Left breast Diagnostic mammogram with true lateral, appropriate spot compression views and an ultrasound. BI-RADS Category 0: Incomplete: Needs additional imaging evaluation. Reviewed, dictated and finalized at location B. IMPRESSION: 1. An Asymmetry is seen on MLO view Superior location in the left breast. 2. Inferior medial skin thickening. RECOMMENDATION: Left breast Diagnostic mammogram with true lateral, appropriate spot compressio n views and an ultrasound. BI-RADS Category 0: Incomplete: Needs additional imaging evaluation.
--- OUTSIDE RECORDS SUMMARY | 2025-07-30 08:09 | XMS_ITS | Clinical Summary ---
Author Organization [facility] Address [facility] [place] [address] Care Team Providers Care Host/Hostess Head Name Role Phone Noy Ankit Stephens DO Primary Care Provider [phone] Allergies No known active allergies Medications cholecalciferol, [...] Description 07/27/2025 3:45 PM CDT Office Visit [facility] Oncology and Hematology [facility] [address] [place] [address] Lj Fam MD Malignant neoplasm [...] - 07/21/2025 3:50 PM CDT Hospital Encounter [facility] Oncology [address] [place] [address] Any Krishnan MD Padgett, MD Liat Montoya, DO Azalea Haque, Devan Palumbo MD Hypercalcemia Discharge Disposition: Home or Self Care 07/16/2025 Travel 07/13/2025 External Device Data ST[facility] ABSTRACTION Provider, Abstract 06/29/2025 External Device Data [facility] ABSTRACTION Provider, Abstract 06/22/2025 External Device Data ST[facility] ABSTRACTION Provider, Abstract 06/14/2025 Orders Only [facility] Oncology and Hematology - [address] [address] Lj Fam MD Osteopenia of [...] on file Legal 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 Gender Identity Not on file Sexual [...] Care Team (Late st Contact Info) Description 08/02/2025 10:00 AM CDT Hospital Encounter [facility] [address] [place] [address] Lj Fam MD [address] [facility] [address] [place] [phone] 08/02/2025 1:15 PM CDT Appointment [facility] [address] [place] [address] Lj Fam MD [address] [place] [phone] 08/10/2025 4:30 PM CDT Telephone Check Up [facility] Oncology and Hematology - [address] [address] Lj Fam MD [address] [facility] [address] [place] [phone] Health Maintenance Due Date Last Done Comments PNEUMOCOCCAL VACCINE 50+ YEA RS (1 of 2 - PCV) 1971 Traditional Medicare (ACO) A nnual Wellness Visit 1971 ZOSTER VACCINE (1 of 2) 1971 [...] Fam MD MOLECULAR ORDERABLES Final Resu lt Performing Organization Address [facility] Co de Phone Number [facility] [address] [facility], [address] [place] [address], [place] [phone] [facility] [address] [facility], [address] [place] [address] * PULSE OXIMETRY, WITH EXERCISE (07/21/2025 10:13 AM CDT) Narrative [facility] CARDIOLOGY - 07/21/2025 10:13 AM CDT Kathleen Bunch, [facility] 07/21/2025 10:15 AM OXYGEN WALK STUDY Oxygen [...] The patient ambulated appr. 100ft. Please call [phone] for any questions about this walk study. us Devan Tristan MD PFT ORDERABLES Final Result Performing Organization Address [facility] Co de Phone Number [facility] CARDIOLOGY [address] [place] [address] * (ABNORMAL) PROTIME-INR (07/21/2025 5:45 AM CDT) Only the most recent of6 resultswithin the time period is included. PROTIME 20.0(H) 12.7 - 15.1 Seconds 07/21/2025 6:43 AM CDT [facility] INR 1.7(H) 0.9 - 1.1 07/21/2025 6:43 AM CDT [facility] Blood Venipuncture / Unknown 07/21/2025 5:45 AM CDT 07/21/2025 6:21 AM CDT Narrative [facility] LABORATORY [facility] - 07/21/2025 6:43 AM CDT INR Therapeutic Range: Adult: 2.0 - 3.0 for pulmonary embolism or prophylaxis against venous thrombosis or systemic embolization. 2.0 - 3.0 for patients with tissue heart valves. 2.5 - 3.5 for patients with mechanical heart valves or post SC. Pediatric (12 years and under): 1.5 - 3.0 Although the target range in children is not well established, INR values of 1.5 - 3.0 are recommended for most patients. Higher values have been used in children with prosthetic cardiac valves and hereditary clotting disorders. (<3 days) therapeutic ranges have not been established. Lindsay Miramontes MD HEMATOLOGY ORDERABLES Final R esult [facility]# [id number] [address] [facility] [place] [address] * MAGNESIUM LEVEL (07/21/2025 5:45 AM CDT) Only the most recent of5 resultswithin the time period is included. MAGNESIUM 1.7 1.6 - 2.4 mg/dL 07/21/2025 7:56 AM CDT [facility] Blood Venipuncture / Unknown 07/21/2025 5:45 AM CDT 07/21/2025 6:21 AM CDT us Jacquelin Charla Josue DO CHEMISTRY ORDERABLES Final R esult [facility] LABORATORY SERVICES [facility]# [id number] [address] [place] [address] * (ABNORMAL) COMPREHENSIVE METABOLIC PANEL (07/21/2025 5:45 AM CDT) Only the most recent of6 resultswithin the time period is included. Pathologist [facility] SODIUM 143 136 - 145 mmol/L 07/21/2025 7:56 AM CDT [facility] LABORATORY SERVICES - . [facility] POTASSIUM 3.7 3.5 - 5.0 mmol/L 07/21/2025 7:56 AM T [facility] LABORATORY [facility] CHLORIDE 109(H) 98 - 107 mmol/L 07/21/2025 7:56 AM T [facility] LABORATORY [facility] - . [facility] CO2 24 22 - 29 mmol/L 07/21/2025 7:56 AM T [facility] LABORATORY [facility] CALCIUM 8.0(L) 8.6 - 10.2 mg/dL 07/21/2025 7:56 AM T [facility] LABORATORY [facility] - . [facility] BUN 9 8 - 23 mg/dL 07/21/2025 7:56 AM T [facility] LABORATORY [facility] CREATININE 0.69 0.51 - 0.95 mg/dL 07/21/2025 7:56 AM [facility] - [facility] Comment:The GFR result is no t clinically significant on patients <18 or >70 years of age. GLUCOSE 102(H) 74 - 99 mg/dL 07/21/2025 7:56 AM T [facility] LABORATORY SERVICES [facility]. [facility] TOTAL PROTEIN 6.1(L) 6.7 - 8.6 g/dL 07/21/2025 7:56 AM T [facility] LABORATORY [facility] - . [facility] ALBUMIN 3.2(L) 3.5 - 5.2 g/dL 07/21/2025 7:56 AM T [facility] LABORATORY [facility] BILIRUBIN TOTAL 0.3 0.0 - 1.1 mg/dL 07/21/2025 7:56 AM T [facility] LABORATORY [facility] ALKALINE PHOSPHATASE 172(H) 35 - 104 U/L 07/21/2025 7:56 AM [facility] AST 45(H) <33 U/L 07/21/2025 7:56 AM [facility] ALT 24 <34 U/L 07/21/2025 7:56 AM [facility] GFR >60 mL/min/1.7 3 sq meter 07/21/2025 7:56 AM T [facility] Comment:eGFR calculated with 2020 CKD-EPI equation. Vegetarian diet, extremely high or low muscle mass, and may affect results. Cystatin C with Glomerular Filtration Rate is a suitable alternative for these patients. ANION GAP 10 8 - 16 mmol/L 07/21/2025 7:56 AM [facility] Blood Venipuncture / Unknown 07/21/2025 5:45 AM CDT 07/21/2025 6:21 AM CDT Narrative [facility] - 07/21/2025 7:56 AM CDT Samples containing indocyanine green cause interferences on Total and/or Direct Bilirubin and must not be measured. Kerwin Fulton PA-C CHEMISTRY ORDERABLES Fin al Result [facility]# [id number] [address] [facility] [place] [address] * CT GUIDED BIOPSY (07/20/2025 4:05 PM CDT) Anatomical Region Laterality Modality Computed Tomogra phy 07/20/2025 3:36 PM CDT Impressions 07/20/2025 4:41 PM CDT Impression: CT-guided right iliac sclerotic bone lesion biopsy. DICTATION LOCATION: Location 1 - [facility] Narrative 07/20/2025 4:[address]-GUIDED RIGHT [...] lesion biopsy. DICTATION LOCATION: Location 1 - [facility] Dada Khan MD CT ORDERABLES Final Result * PATHOLOGY (07/20/2025 4:05 PM CDT) CASE REPORT Surgical Pathology Report Case: [id number] Authorizing Provider: Ryan Daniels MD Collected: 07/20/2025 04:05 PM Ordering Location: [facility] Received: 07/21/2025 07:28 AM Oncology Pathologist: Best Garza DO Specimen: Bone, right iliac bone biopsy 2:30 PM CDT [facility] ADDENDUM 1 A request for [employer] was received on 07/29/[address] Lj Fam. This test was performed on tissue from case [id number]. The case report, slides, and blocks for this case were retrieved from archives. The pathologist reviewed the original pathology report and examined candidate slides. The requested test cannot be performed because the tissue sample required decalcification and is no longer amenable to testing. 5 2:30 PM CDT [facility] Addendum electronically signed by Best Garza DO on 07/29/2025 at 1430 CDT FINAL DIAGNOSIS Bone, right iliac, biopsy: - Metastatic carcinoma, consistent with breast primary (favor invasive lobular carcinoma) - ER: 7/8 (positive), NY: 0/8 (negative), HER2 IHC: 2+ (equivocal) 5 2:30 PM CDT [facility] at 0921 CDT DIAGNOSIS COMMENT HER2 FISH testing has been ordered and the results will be reported in an addendum. 5 2:30 PM CDT [facility] GROSS DESCRIPTION Received in one container labeled [...] decalcified in decal ll at the bench. [facility] 5 2:30 PM [facility] MICROSCOPIC DESCRIPTION The slides are labeled [id number] and Damien Pulido. Sections show bone trabeculae infiltrated by single epithelioid cells which stain positive for pankeratin, GATA3, and ER by immunohistochemistry . These findings are consistent with metastatic carcinoma of breast origin. Immunohistochemistry for E-cadherin shows reduced to absent expression and p120 shows abnormal cytoplasmic expression, consistent with a lobular phenotype. 5 2:30 PM [facility] CLINICAL INFORMATION Right iliac bone biopsy No Dx found. 75 y.o. female with PMHX of breast cancer with diffuse skeletal osseous sclerotic lesions. 5 2:30 PM [facility] SPECIAL AND IMMUNOPEROXIDASE STAINS This addendum is [...] Score = 5 Intensity Score = 2 [place] Total Score (immunohistochemistr y) = 0 Proportion Score = 0 Intensity Score = 0 HER2 membrane staining (Antibody Clone 4B5) is scored on a 0 to 3+ scale in accordance to 2023 CAP/ASCO guidelines. Estrogen and progesterone receptor content is assayed in a semiquantitative manner utilizing the ER antibody (Clone SP1) and NY antibody (Clone 1E2). Results are reported as [...] that is complete and intense ER and NY Total Score 0-2 = negative >= 3 = positive ER and [place] Proportion Score (% positive cells) 0 = none 1 = > 0 to < 1% 2 = > or = 1% to 10% 3 = > 10% to 33.3% 4 = > 33.3% to 66.7% 5 = > 66.7% ER and [place] Intensity Score (average staining intensity) 0 = [...] profiles more similar to ER negative cancers. 2:30 PM CDT [facility] COMMENT Special stain, immunohistochemical, and/or in situ hybridization results are interpreted with controls that demonstrate appropriate staining reactions. Note on use of immunohistochemistry reagents and in situ hybridization probes: These tests were developed and their performance characteristics determined by [facility], Department of Laboratory Medicine. It has not [...] part or completely in the following laboratories: [facility], CLIA #[id number] [address] [place] [address] [facility], [place] #[id number] [address] [place] [address] [facility]/[place], [place] #[id number] [address] [place] [address] This report was created with the quitchen voice-activated dictation system. Inherent to this system is the possibility of syntax, grammar, punctuation and other errors that could impact the interpretation of the report. If there are interpretative questions about aspects of this report, please contact the performing pathologist. 2:30 PM CDT [facility] Tissue ENTIRE BONE ORGAN / Unknown Collection / Unknown 07/20/2025 4:05 PM CDT 07/21/2025 7:28 AM CDT Comment:Right iliac bone bio psy us Ryan Daniels MD PATHOLOGY/CYTOLOGY ORDERABLES E dited Result - Final [facility] LABORATORY SERVICES [facility]# [id number] [address] [place] [address] * CT PELVIS WO CONTRAST (07/19/2025 11:27 [...] further evaluation. DICTATION LOCATION: Location [address]qu[address] Dunham Liat DO CT ORDERABLES Final Result * (ABNORMAL) CBC WITHOUT DIFFERENTIAL (07/19/2025 3:29 AM CDT) Only the most recent of2 resultswithin the time period is included. WBC 6.1 4.0 - 9.8 K/uL 07/19/2025 4:[address] [facility] [employer] LABORATORY SERVICES [facility] RBC 2.86(L) 3.90 - 4.90 M/uL 07/19/2025 4:[address] [facility] [employer] LABORATORY [facility] HEMOGLOBIN 9.2(L) 11.8 - 14.8 g/dL 07/19/2025 4:09 AM [employer] LABORATORY SERVICES [facility] HEMATOCRIT 28.7(L) 35.5 - 44.0 % 07/19/2025 4:[address] [employer] LABORATORY [facility] MCV 100.3(H) 82.0 - 99.0 fL 07/19/2025 4:[address] [employer] LABORATORY SERVICES [facility] MCH 32.2 27.2 - 32.6 pg 07/19/2025 4:[address] [employer] LABORATORY [facility] MCHC 32.1 31.5 - 35.5 g/dL 07/19/2025 4:09 AM [employer] LABORATORY SERVICES - [facility] PLATELETS 184 140 - 350 K/uL 07/19/2025 4:09 AM CDT [facility] LABORATORY [facility] MPV 9.7 9.3 - 12.4 fL 07/19/2025 4:09 AM CDT [facility] LABORATORY [facility] - [facility] RDW 17.9(H) 11.5 - 14.5 % 07/19/2025 4:09 AM CDT [facility] LABORATORY [facility] RDW-STDEV 66.1(H) 37.1 - 48.7 fL 07/19/2025 4:09 AM CDT [facility] LABORATORY [facility] Blood Venipuncture / Unknown 07/19/2025 3:29 AM CDT 07/19/2025 3:59 AM CDT us Jacquelin Josue DO HEMATOLOGY ORDERABLES Final Result [facility]# [id number] 5 [facility] [place] [address] * MRI BRAIN W WO CONTRAST (07/19/2025 [...] of tumor identified. DICTATION LOCATION: Location 4 us Lindsay Miramontes MD MR ORDERABLES Final Result * (ABNORMAL) POC GLUCOSE (07/18/2025 12:03 PM CDT) GLUCOSE POC 103(H) 74 - 99 mg/dL 07/18/2025 12:03 PM CDT [facility] LABORATORY [facility] SPECIMEN SOURCE, GLUCOSE POC Whole Blood 07/18/2025 12:03 PM CDT [facility] LABORATORY [facility] COMMENT, GLU POC Alerted Nurse/BETSY/D r 07/18/2025 12:03 PM CDT [facility] Blood, whole 07/18/2025 12:0 3 PM CDT 07/18/2025 1:28 PM CDT us Jacquelin Charla Liat DO POINT OF CARE TESTING Final Result [facility] [place]# [id number] [address] [place] [address] * US RENAL AND BLADDER (07/18/2025 9:52 AM CDT) Anatomical Region Laterality Modality Abdomen Ultrasound 07/18/2025 9:53 AM CDT Impressions 07/18/2025 10:37 AM CDT IMPRESSION: Right renal cysts. No acute abnormality. DICTATION LOCATION: Location 1 - [facility] Narrative 07/18/2025 10:37 AM CDT RENAL ULTRASOUND [...] cysts. No acute abnormality. DICTATION LOCATION: Location [address] [place] [address] us Harshad Lynn NP US ORDERABLES Final Result [...] disease. DICTATION LOCATION: Location 4 Harshad Lynn NATURAL SCIENCES MANAGER CT ORDERABLES Final Result * (ABNORMAL) HEMOGLOBIN AND HEMATOCRIT (07/17/2025 5:39 PM CDT) HEMOGLOBIN 9.3(L) 11.8 - 14.8 g/dL 07/17/2025 6:35 PM CDT [facility] Comment:Significant change f rom prior result, correlate clinically and redraw if necessary. HEMATOCRIT 28.1(L) 35.5 - 44.0 % 07/17/2025 6:35 PM CDT [facility] Blood Venipuncture / Unknown 07/17/2025 5:39 PM CDT 07/17/2025 5:47 PM CDT Jacquelin Josue DO HEMATOLOGY ORDERABLES Final Result [facility] CLIA# [id number] [address] [place] [address] * TRANSFUSE RED BLOOD CELLS (07/17/2025 3:02 PM CDT) Jacquelin Josue DO BLOOD TRANSFUSION ORDERABLES Final Result * FOLATE, SERUM (07/17/2025 1:07 PM CDT) FOLATE, SERUM >20.0 >4.5 ng/mL 07/17/2025 2:26 PM CDT [facility] LABORATORY [facility] Blood Venipuncture / Unknown 07/17/2025 1:07 PM CDT 07/17/2025 1:11 PM CDT Moni Mckeon MD CHEMISTRY ORDERABLES Final Resu lt Performing Organization Address City/[facility]/ZIP Co de Phone Number [facility]# [id number] [address] [place] [address] * VITAMIN B12 AND FOLATE (07/17/2025 1:07 PM CDT) VITAMIN B12 940 232 - 1,245 pg/mL 07/17/2025 2:26 PM CDT [facility] Comment:It has been reported that between 5 to 10% of patients with values between 200 and 400 pg/mL may experience neuropsychiatric and hematologic abnormalities due to occult B12 deficiency. Less than 1% of patients with values above 400 pg/mL will have symptoms. FOLATE, SERUM >20.0 >4.5 ng/mL 07/17/2025 2:26 PM CDT [facility] Blood Venipuncture / Unknown 07/17/2025 1:07 PM CDT 07/17/2025 1:11 PM CDT Harshad Lynn NP CHEMISTRY ORDERABLES Final Resu lt Performing Organization Address City/[facility]/ZIP Co de Phone Number [facility] CLIA# [id number] [address] [place] [address] * (ABNORMAL) LACTATE DEHYDROGENASE (07/17/2025 1:07 PM CDT) [facility] LD (LACTATE DEHYDROGENASE) 232(H) 135 - 214 U/L 07/17/2025 2:00 PM CDT [employer] [facility] LABORATORY SERVICES - [facility] Blood Venipuncture / Unknown 07/17/2025 1:07 PM CDT 07/17/2025 1:11 PM CDT Moni Mckeon MD CHEMISTRY ORDERABLES Final Resu lt Performing Organization Address City/[facility]/ZIP Co de Phone Number [facility] LABORATORY SERVICES [facility]# [id number] [address] [place] [address] * VERIFICATION BLOOD GROUP (07/17/2025 9:10 AM CDT) [facility] ABO GROUP A 07/17/2025 10:05 AM CDT [employer] LABORATORY SERVICES -- [facility] RH (D) TYPE Positive 07/17/2025 10:05 AM CDT [employer] LABORATORY SERVICES -- [facility] Blood Venipuncture / Unknown 07/17/2025 9:10 AM CDT 07/17/2025 9:16 AM CDT Fredrick Hernandez MD BLOOD BANK ORDERABLES Final Result [facility] LABORATORY SERVICES -- [facility]# [id number] [address] [place] [address] * TYPE AND SCREEN (07/17/2025 8:36 AM CDT) [facility] ABO GROUP A 07/17/2025 9:43 AM CDT [employer] LABORATORY SERVICES -- [facility] RH (D) TYPE Positive 07/17/2025 9:43 AM CDT [employer] LABORATORY SERVICES -- [facility] ANTIBODY SCREEN Negative 07/17/2025 9:43 AM CDT [employer] LABORATORY SERVICES -- [facility] Blood Venipuncture / Unknown 07/17/2025 8:36 AM CDT 07/17/2025 8:44 AM CDT Jacquelin Scruggskumarashanti DO BLOOD BANK ORDERABLES Edited Result - Final Performing Organization Address [facility]/ZIP Co de Phone Number [facility] LABORATORY SERVICES -- [facility]# [id number] [address] [place] [address] * (ABNORMAL) TSH (07/17/2025 8:36 AM CDT) TSH 14.50(H) 0.27 - 4.20 uIU/mL 07/17/2025 1:46 PM CDT [facility] LABORATORY SERVICES - [facility] Blood Venipuncture / Unknown 07/17/2025 8:36 AM CDT 07/17/2025 8:43 AM CDT Harshad Lynn NATURAL SCIENCES MANAGER CHEMISTRY ORDERABLES Final Resu lt Performing Organization Address [facility]/ZIP Co de Phone Number [facility] LABORATORY SERVICES - [facility]# [id number] [address] [place] [address] * PREPARE RED BLOOD CELLS (07/17/2025 7:37 AM CDT) COMPONENT TYPE [id number] [facility] LABORATORY SERVICES -- [facility] COMPONENT IDENTIFICATION [id number] [facility] LABORATORY SERVICES -- [facility] UNIT ABO A [facility] LABORATORY SERVICES -- [facility] UNIT RH POS [facility] LABORATORY SERVICES -- [facility] CROSSMATCH Compatible [facility] LABORATORY SERVICES -- [facility] COMPONENT STATUS Transfused [facility] LABORATORY SERVICES -- [facility] COMPONENT EXPIRATION DATE/TIME [id number] [facility] LABORATORY SERVICES -- [facility] COMPONENT CODING SYSTEM 6200 [facility] LABORATORY SERVICES -- [facility] VOLUME, BLOOD PRODUCT 350 [facility] LABORATORY SERVICES -- [facility] Other, specify 07/17/2025 7: 37 AM CDT Jacquelin Josue DO LAB TRANSFUSION ORDERABLES E dited Result - Final [facility]# [id number] [address] [place] [address] * MANUAL DIFFERENTIAL (07/17/2025 7:03 AM CDT) Pathologist [facility] PLATELET EST. Consistent w Count 07/17/2025 8:16 AM CDT [facility] LABORATORY SERVICES - . [facility] ANISOCYTOSIS 1+ /hpf 07/17/2025 8:16 AM CDT [facility] LABORATORY SERVICES - . [facility] MACROCYTES 1+ /hpf 07/17/2025 8:16 AM CDT [facility] LABORATORY SERVICES - . [facility] POLYCHROMASIA 1+ /hpf 07/17/2025 8:16 AM CDT [facility] LABORATORY SERVICES - . [facility] Blood Venipuncture / Unknown 07/17/2025 7:03 AM CDT 07/17/2025 7:08 AM CDT Lindsay Miramontes MD HEMATOLOGY ORDERABLES COM Fin al Result Performing Organization Address [facility]/ZIP Co de Phone Number [facility]# [id number] [facility] [place] [address] [place] [address] * (ABNORMAL) CBC WITH DIFFERENTIAL (07/17/2025 7:03 AM CDT) Only the most recent of2 resultswithin the time period is included. Pathologist [facility] WBC 4.1 4.0 - 9.8 K/uL 07/17/2025 7:35 AM CDT [facility] LABORATORY SERVICES [facility] RBC 1.74(L) 3.90 - 4.90 M/uL 07/17/2025 7:35 AM CDT [facility] LABORATORY [facility] HEMOGLOBIN 5.8(LL) 11.8 - 14.8 g/dL 07/17/2025 7:35 AM CDT [facility] LABORATORY SERVICES [facility] Comment: Verified by repeat analysis. Significant change from prior result, correlate clinically and redraw if necessary. HEMATOCRIT 18.0(L) 35.5 - 44.0 % 07/17/2025 7:35 AM CDT [employer] LABORATORY SERVICES - [facility] MCV 103.4(H) 82.0 - 99.0 fL 07/17/2025 7:35 AM CDT [employer] LABORATORY SERVICES - [facility] MCH 33.3(H) 27.2 - 32.6 pg 07/17/2025 7:35 AM CDT [employer] LABORATORY SERVICES - [facility] MCHC 32.2 31.5 - 35.5 g/dL 07/17/2025 7:35 AM CDT [employer] LABORATORY SERVICES - [facility] RDW 17.0(H) 11.5 - 14.5 % 07/17/2025 7:35 AM CDT [employer] LABORATORY SERVICES - [facility] RDW-STDEV 64.0(H) 37.1 - 48.7 fL 07/17/2025 7:35 AM CDT [employer] LABORATORY SERVICES - [facility] PLATELETS 117(L) 140 - 350 K/uL 07/17/2025 7:35 AM CDT [employer] LABORATORY SERVICES - [facility] MPV 9.6 9.3 - 12.4 fL 07/17/2025 7:35 AM CDT [employer] LABORATORY SERVICES - [facility] NEUTROPHILS 84 % 07/17/2025 7:35 AM CDT [employer] LABORATORY SERVICES - [facility] LYMPHOCYTES 8 % 07/17/2025 7:35 AM CDT [employer] LABORATORY SERVICES - [facility] MONOCYTES 5 % 07/17/2025 7:35 AM CDT [employer] LABORATORY SERVICES - [facility] EOSINOPHILS 2 % 07/17/2025 7:35 AM CDT [employer] LABORATORY SERVICES - [facility] BASOPHILS 0 % 07/17/2025 7:35 AM CDT [employer] LABORATORY SERVICES - [facility] IMMATURE GRANULOCYTES 2 % 07/17/2025 7:35 AM CDT [employer] [facility]ATORY SERVICES - [facility] [facility] Comment:IG (Immature Granulo cyte) count includes Metamyelocytes, Myelocytes, and Promyelocytes NEUTROPHIL ABSOLUTE 3.39 1.90 - 7.00 K/uL 07/17/2025 7:35 AM CDT [employer] LABORATORY SERVICES - [facility] LYMPHOCYTE ABSOLUTE 0.31(L) 0.70 - 4.50 K/uL 07/17/2025 7:35 AM CDT [facility] LABORATORY [facility] MONOCYTE ABSOLUTE 0.22 0.10 - 1.30 K/uL 07/17/2025 7:35 AM CDT [facility] EOSINOPHIL ABSOLUTE 0.08 0.00 - 0.70 K/uL 07/17/2025 7:35 AM CDT [facility] BASOPHILS ABSOLUTE 0.00 0.00 - 0.20 K/uL 07/17/2025 7:35 AM CDT [facility] IMMATURE GRANULOCYTES ABSOLUTE 0.06(H) 0.00 - 0.03 K/uL 07/17/2025 7:35 AM T [facility] Blood Venipuncture / Unknown 07/17/2025 7:03 AM CDT 07/17/2025 7:08 AM CDT Lindsay Miramontes MD HEMATOLOGY ORDERABLES Final R esult [facility]# [id number] [address] [place] [address] * PROCALCITONIN (07/16/2025 10:22 AM CDT) PROCALCITONIN 0.10 <=0.25 ng/mL 07/16/2025 11:15 AM CDT [facility] Blood Venipuncture / Unknown 07/16/2025 10:22 AM CDT 07/16/2025 10:30 AM CDT Narrative [facility] - 07/16/2025 11:15 AM CDT The utility [...] Miramontes MD CHEMISTRY ORDERABLES Final Re sult Performing Organization Address [facility]/ZIP Co de Phone Number [facility] LABORATORY [facility] CLIA# [id number] [address] [place] [address] * (ABNORMAL) IRON, TIBC, AND PERCENT SATURATION (07/16/2025 10:22 AM CDT) IRON 68 37 - 145 ug/dL 07/16/2025 2:35 PM CDT [facility] LABORATORY [facility] TIBC 231(L) 250 - 450 ug/dL 07/16/2025 2:35 PM CDT [facility] IRON % SATURATION 29 15 - 50 % 07/16/2025 2:35 PM CDT [facility] LABORATORY [facility] TRANSFERRIN 182(L) 200 - 360 mg/dL 07/16/2025 2:35 PM CDT [facility] LABORATORY SERVICES [facility] Blood Venipuncture / Unknown 07/16/2025 10:22 AM CDT 07/16/2025 10:30 AM CDT us Moni Mckeon MD CHEMISTRY ORDERABLES Final Resu lt Performing Organization Address [facility]/ZIP Co de Phone Number [facility] LABORATORY [facility] CLIA# [id number] [address] [place] [address] * (ABNORMAL) C-REACTIVE PROTEIN (07/16/2025 10:22 AM CDT) CRP 53.8(H) <5.0 mg/L 07/16/2025 11:07 AM CDT [facility] Blood Venipuncture / Unknown 07/16/2025 10:22 AM CDT 07/16/2025 10:30 AM CDT Lindsay Miramontes MD CHEMISTRY ORDERABLES Final Re sult Performing Organization Address City/[facility]/ZIP Co de Phone Number [facility] CLIA# [id number] [address] [place] [address] * HAPTOGLOBIN (07/16/2025 10:22 AM CDT) HAPTOGLOBIN 154 30 - 200 mg/dL 07/17/2025 12:33 PM CDT [facility] Blood Venipuncture / Unknown 07/16/2025 10:22 AM CDT 07/16/2025 10:30 AM CDT Moni Mckeon MD CHEMISTRY ORDERABLES Final Resu lt [facility]# [id number] [address] [place] [address] * (ABNORMAL) FERRITIN (07/16/2025 10:22 AM CDT) FERRITIN 493.0(H) 13.0 - 150.0 ng/mL 07/16/2025 2:35 PM CDT [facility] LABORAT[facility] Blood Venipuncture / Unknown 07/16/2025 10:22 AM CDT 07/16/2025 10:30 AM CDT Moni Mckeon MD CHEMISTRY ORDERABLES Final Resu lt Performing Organization Address [facility] Co de Phone Number [facility]# [id number] [address] [place] [address] * VITAMIN B12 LEVEL (07/16/2025 10:22 AM CDT) VITAMIN B12 922 232 - 1,245 pg/mL 07/16/2025 2:14 PM CDT [facility] Comment:It has been reported that between [...] ORDERABLES Final Resu lt Performing Organization Address [facility] de Phone Number [facility]# [id number] [address] [place] [address] * MAMMO SCREENING BILAT (07/20/2024 2:42 PM [...] Maintenance Insurance MEDICARE PART A AND B incrediblue SUPP MEDICARE PART A AND B incrediblue SUPP [employer] Medicare Part D Advance Directives For more information, please contact: [phone] * Full Code (Latest Code Status on File) Date Activated Date Inactivated Comments 07/18/2025 8:34 AM 07/21/2025 6:19 PM Care Teams Host/Hostess Head Relationship Specialty Start Date End Date Ankit Villafuerte DO [address] [facility] [address] [place] [address] PCP - General Internal Medicine 07/30/24
--- OUTSIDE RECORDS SUMMARY | 2025-07-30 08:09 | XMS_ITS | Clinical Summary ---
Author Organization [facility] Address [address] [place] [address] Phone Care Team Providers Care Integration Engineer Name Role Phone Unavailable Primary Care Provider Unavailabl e Allergies No known active allergies Medications furosemide (LASIX) 40 MG Tablet TAKE 1 TABLET BY ORAL ROUTE EVERY DAY 2 6 Active SYNTHROID 125 MCG Tablet TAKE 1 TABLET BY ORAL ROUTE EVERY DAY 2 6 Active montelukast (SINGULAIR) 10 MG Tablet Take 10 mg by mouth daily. 1 6 Active CREON [address] Particles TAKE ONE CAPSULE [...] patient's age to complete this topic Insurance Cover
--- OUTSIDE RECORDS SUMMARY | 2025-07-30 08:09 | XMS_ITS | Clinical Summary ---
Author Organization [facility] Address [address] [place] [address] Care Team Providers Care Calculation Reviewer Name Role Phone Chris Avalos PA-C Primary Care Provide r Source Comments [facility],non-owned Affiliates and Associated Physician Practices is amultiple site organization consisting of ambulatory clinics and hospital sitesin [place], [place], [place] and [place]. This disclosure is being madepursuant to the Care Everywhere program and may not contain all information available regarding this patient. Last updated 18.[facility] [employer] Allergies No known active allergies Medications * Be aware that medications may not be up to date on this document. Alwaysverify current medications with the patient. 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 Gender Identity Not on file Sexual [...] this topic Medical Devices Implanted Type Area Hay Chopper Device Identifier Shelf Expiration Date Model / Serial / Lot Screw Implanted:Qty: 1 on 04/30/2022 by Michel Mendieta MD at [facility] Right: Wrist [employer] [id number] / / Screw 2.7mm 20mm Mldir Nonster Bone Implanted:Qty: 1 on 04/30/2022 by Michel Mendieta MD at [facility] Right: Wrist [employer] [id number] / / Plate Implanted:Qty: 1 on 04/30/2022 by Michel Mendieta MD at [facility] Right: Wrist [employer] [id number] / / Screw 2.7mm 14mm Lopro Nonster Bone Lf Implanted:Qty: 2 on 04/30/2022 by Michel Mendieta MD at [facility] Right: Wrist [employer] [id number] / / Screw Implanted:Qty: 1 on 04/30/2022 by Michel Mendieta MD at [facility] Right: Wrist [employer] [id number] / / Screw 2.7mm 20mm Crsslck Tpr Head 3 Ld Implanted:Qty: 3 on 04/30/2022 by Michel Mendieta MD at [facility] Right: Wrist [employer] [id number] / / Screw 2.7mm 22mm Lck Jesse Nonster Bone Implanted:Qty: 2 on 04/30/2022 by Michel Mendieta MD at [facility] Right: Wrist [employer] [id number] / / Explanted Type Area Hay Chopper Device Identifier Shelf Expiration Date Model / Serial / Lot Wire K .062in 6in Fx 2 Troc Explanted:Qty: 2 on 04/30/2022 by Michel Mendieta MD at [facility] Right: Wrist [employer] [id number] / / Wire K 1.6mm Ss Fx Nonster Explanted:Qty: 3 on 04/30/2022 by Michel Mendieta MD at [facility] Right: Wrist [employer] [id number] / / Screw 2.7mm 20mm Crsslck Lopro Nonlock Explanted:Qty: 1 on 04/30/2022 by Michel Mendieta MD at [facility] Right: Wrist [employer] [id number] / / Screw 2.7mm 20mm Crsslck Lopro Nonlock Explanted:Qty: 1 on 04/30/2022 by Michel Mendieta MD at [facility] Right: Wrist [employer] [id number] / / Insurance MEDICARE [facility] [employer] [address] [place] [address] MEDICARE Care Teams Calculation Reviewer Relationship Specialty Start Date End Date Chris Avalos PA-C [address] [place] [address] PCP - General 04/25/22
--- OUTSIDE RECORDS SUMMARY | 2025-07-30 08:09 | XMS_ITS ---
Author Organization [facility] Address [address] [place] [address] Phone Care Team Providers Care Ophthalmic Aide Name Role Phone Unavailable Primary Care [...]
--- OUTSIDE RECORDS SUMMARY | 2025-07-30 08:09 | XMS_ITS | Clinical Summary ---
Author Organization [facility] Address [address] [place] [address] Care Team Providers Care Distribution Estimator Name Role Phone Ankit Villafuerte DO Primary Care Provider [phone] Allergies No known active allergies Medications warfarin [...] Comments Blood Pressure 137/83 09/28/2024 5:55 PM LABOR CREW SUPERVISOR Pulse 73 09/28/2024 5:55 PM LABOR CREW SUPERVISOR Temperature 36.2 C (97.1 F) 09/28/2024 5:55 PM LABOR CREW SUPERVISOR Respiratory Rate 18 09/28/2024 5:55 PM LABOR CREW SUPERVISOR Oxygen Saturation 98% 09/28/2024 5:55 PM LABOR CREW SUPERVISOR Inhaled Oxygen Concentration - - Weight 97.1 kg (214 lb 1.1 oz) 09/28/2024 3:00 P M LABOR CREW SUPERVISOR Height 175.3 cm (5' 9) 09/28/2024 3:00 PM LABOR CREW SUPERVISOR Body Mass Index 31.61 09/28/2024 3:00 PM LABOR CREW SUPERVISOR Plan of Treatment Health Maintenance Due Date [...] age to complete this topic Insurance MEDICARE [facility] Bringrr INSURANCE LUM[employer] Care Teams Distribution Estimator Relationship Specialty Start Date End Date Ankit Villafuerte DO [address] [address] PCP - General INTERNAL MEDICINE 09/28/24
--- OUTSIDE RECORDS SUMMARY | 2025-07-30 08:09 | XMS_ITS ---
Author Organization [facility] Address [address] [place] [address] [place] [address] Care Team Providers Care Consumer Safety Inspector Name Role Phone Noy, Ankit L Primary Care Provider [phone] Active Problems Problem Noted Date Diagnosed Date [...]
--- OUTSIDE RECORDS SUMMARY | 2025-07-30 08:09 | XMS_ITS | Encounter Summary ---
Author Organization [facility] Address [address] [place] [address] Care Team Providers Care Special Events Director Name Role Phone Ankit Villafuerte Primary Care Provider [phone] Encounter Details Date Type Department Care Team (Late st Contact Info) Description 2019 Chart Note [facility] Radiation Therapy [address] [place] [address] [place] [address] [place] [address] Social History Tobacco Use Types Packs/Day Years Used Date Smoking Tobacco: Never Alcohol Use Standard Drinks/Week Comments Yes 0 (1 standard drink = 0.6 oz pur e alcohol) Comments No Sex and Gender Information Value Date Recorded Sex Assigned at Not on file 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 Gender Identity Not on file Sexual Orientation Not on file documented as of this encounter Plan of Treatment Upcoming Encounters Date Type Department Care Team (Late st Contact Info) Description 08/02/2025 10:00 AM CDT Hospital Encounter [facility] [address] [place] [address] Lj Fam MD [address] [place] [address] 08/02/2025 1:15 PM CDT Appointment [facility] [address] [place] [address] Lj Fam MD [address] [place] [address] 08/10/2025 4:30 PM CDT Telephone Check Up [facility] Oncology and Hematology - [place] [address] [facility] [address] [place] [address] Lj Fam MD [address] [place] [address] documented as of this encounter Visit Diagnoses Not on filedocumented in this encounter Care Teams Special Events Director Relationship Specialty Start Date End Date Ankit Villafuerte DO [address] [facility] [address] [place] [address] PCP - General Internal Medicine 07/30/24 documented as of this encounter
== END 2025-07-30 08:06 | disposition home or self-care (01) ==
LOC: ANHFOHIMG 08:07
PROVIDERS: PCP Internal Medicine; Visit Provider Internal Medicine Hematology & Oncology
DX: Z12.31 Encounter for screening mammogram for malignant neoplasm of breast (principal); R92.8 Other abnormal and inconclusive findings on diagnostic imaging of breast
CPT/HCPCS: 77063; 77067

== ENCOUNTER 2025-08-24 08:49 | Observation (INO) | payer MEDICARE, SELFPAY ==
[2025-08-24] VITALS (9 sets, daily range): BP systolic 117–141; BP diastolic 63–87; PULSE 90–97; RESP 13–22; TEMP 36.5–36.6; O2SAT 95–100; BMI 28.8
--- NOTE | ~2025-08-24 | CT_ITS ---
CT abdomen pelvis w con Clinical History: N/V/D; undergoing radiation for cancer . Comparison: None Technique: Axial images lung bases to symphysis pubis IV contrast information not listed in PACS Coronal, sagittal reformats CT images acquired with automatic exposure control for dose reduction DLP: 915 mGy-cm Findings: Lung bases: Moderate right pleural effusion. Partially visualized subpleural scarring right middle lobe. Visualized heart and pericardium: Unremarkable. Liver: Unremarkable. Gallbladder: Removed. Spleen: Unremarkable. Pancreas: Unremarkable. Adrenal glands: Unremarkable. Kidneys: Right kidney- No hydronephrosis. No renal stones. Cysts. Left kidney- No hydronephrosis. No renal stones. Distal esophagus/stomach: Unremarkable. Small bowel loops: Normal caliber and wall thickness. Small proximal duodenal diverticulum Colon: Diffuse wall thickening. Diverticula. Normal RLQ appendix. Nodes: No enlarged nodes. Peritoneum: No ascites. No free air. Urinary bladder: Unremarkable. Uterus: Removed. Adnexa: No masses. Bones: Diffuse sclerotic bony metastases as before. Soft tissues: Right mastectomy. Chest and abdominal wall collateral veins. Aorta: No aneurysm or dissection. IVC: Unremarkable. Main portal vein/SMV/splenic vein: Patent. IMPRESSION: 1. Pancolitis. 2. Presumed thoracic central venous obstruction. 3. Additional findings as above. Reviewed, dictated and finalized at location R.
--- OUTSIDE RECORDS SUMMARY | 2025-08-24 09:23 | XMS_ITS | Clinical Summary ---
Author Organization [facility] Address [address] [place] [address] Care Team Providers Care Site Manager Name Role Phone Chris Avalos PA-C Primary Care Provide r Source Comments [facility],non-owned Affiliates and Associated Physician Practices is amultiple site organization consisting of ambulatory clinics and hospital sitesin [place], [place], [place] and [place]. This disclosure is being madepursuant to the Care Everywhere program and may not contain all information available regarding this patient. Last updated 18.[facility] [employer] Allergies No known active allergies Medications * Be aware that medications may not be up to date on this document. Alwaysverify current medications with the patient. 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 Gender Identity Not on file [...] this topic Medical Devices Implanted Type Area Car Checker Device Identifier Shelf Expiration Date Model / Serial / Lot Screw Implanted:Qty: 1 on 04/30/2022 by Michel Mendieta MD at [facility] Right: Wrist [employer] [id number] / / Screw 2.7mm 20mm Mldir Nonster Bone Implanted:Qty: 1 on 04/30/2022 by Michel Mendieta MD at [facility] Right: Wrist [employer] [id number] / / Plate Implanted:Qty: 1 on 04/30/2022 by Michel Mendieta MD at [facility] Right: Wrist [employer] [id number] / / Screw 2.7mm 14mm Lopro Nonster Bone Lf Implanted:Qty: 2 on 04/30/2022 by Michel Mendieta MD at [facility] Right: Wrist [employer] [id number] / / Screw Implanted:Qty: 1 on 04/30/2022 by Michel Mendieta MD at [facility] Right: Wrist [employer] [id number] / / Screw 2.7mm 20mm Crsslck Tpr Head 3 Ld Implanted:Qty: 3 on 04/30/2022 by Michel Mendieta MD at [facility] Right: Wrist [employer] [id number] / / Screw 2.7mm 22mm Lck Jesse Nonster Bone Implanted:Qty: 2 on 04/30/2022 by Michel Mendieta MD at [facility] Right: Wrist [employer] [id number] / / Explanted Type Area Car Checker Device Identifier Shelf Expiration Date Model / Serial / Lot Wire K .062in 6in Fx 2 Troc Explanted:Qty: 2 on 04/30/2022 by Michel Mendieta MD at [facility] Right: Wrist [employer] [id number] / / Wire K 1.6mm Ss Fx Nonster Explanted:Qty: 3 on 04/30/2022 by Michel Mendieta MD at [facility] Right: Wrist [employer] [id number] / / Screw 2.7mm 20mm Crsslck Lopro Nonlock Explanted:Qty: 1 on 04/30/2022 by Michel Mendieta MD at [facility] Right: Wrist [employer] [id number] / / Screw 2.7mm 20mm Crsslck Lopro Nonlock Explanted:Qty: 1 on 04/30/2022 by Michel Mendieta MD at [facility] Right: Wrist [employer] [id number] / / Insurance MEDICARE [facility] [employer] [address] [place] [address] MEDICARE Care Teams Site Manager Relationship Specialty Start Date End Date Chris Avalos PA-C [address] [place] [address] PCP - General 04/25/22
--- OUTSIDE RECORDS SUMMARY | 2025-08-24 09:23 | XMS_ITS | Clinical Summary ---
Author Organization [facility] Address [address] [place] [address] Phone Care Team Providers Care Septic Tank Service Technician Name Role Phone Unavailable Primary Care Provider Unavailabl e Allergies No known active allergies Medications furosemide (LASIX) 40 MG Tablet TAKE 1 TABLET BY ORAL ROUTE EVERY DAY 2 6 Active SYNTHROID 125 MCG Tablet TAKE 1 TABLET BY ORAL ROUTE EVERY DAY 2 6 Active montelukast (SINGULAIR) 10 MG Tablet Take 10 mg by mouth daily. 1 6 Active CREON [address] Particles TAKE ONE CAPSULE [...] patient's age to complete this topic Insurance [employer]
--- OUTSIDE RECORDS SUMMARY | 2025-08-24 09:23 | XMS_ITS ---
Author Organization [facility] Address [address] [place] [address] Phone Care Team Providers Care Platen Press Operator Apprentice Name Role Phone Unavailable Primary Care Provider [...]
--- OUTSIDE RECORDS SUMMARY | 2025-08-24 09:24 | XMS_ITS ---
Author Organization [facility] Address [address] [place] [address] [place] [address] Care Team Providers Care Title Searcher Name Role Phone Noy, Ankit L Primary Care Provider [phone] Active Problems Problem Noted Date Diagnosed Date [...]
--- OUTSIDE RECORDS SUMMARY | 2025-08-24 09:24 | XMS_ITS ---
Author Organization [facility] Address [address] [place] [address] [place] [address] Care Team Providers Care Rocket Engine Component Mechanic Name Role Phone Ankit Villafuerte DO Primary Care Provider [phone] Breast Cancer Status:Enrolled (Active) Start date:08/11/2025 Enrollment date:08/11/2025 Current support & services provided:Clinical Management, Refill Management, Benefits and PA Management, Financial Assistance Linked medications:palbociclib (Active) Continued Care and Services Coordination
--- OUTSIDE RECORDS SUMMARY | 2025-08-24 09:24 | XMS_ITS | Encounter Summary ---
Author Organization [facility] Address [address] [place] [address] Care Team Providers Care Flow Manager Name Role Phone Ankit Villafuerte DO Primary Care Provider [phone] Encounter Details Date Type Department Care Team (Late st Contact Info) Description 2019 Chart Note [facility] Radiation Therapy [address] [place] [address] [place] [address] [place] [address] Social History Tobacco Use Types Packs/Day Years Used Date Smoking Tobacco: Never Alcohol Use Standard Drinks/Week Comments Yes 0 (1 standard drink = 0.6 oz pur e alcohol) Comments No Sex and Gender Information Value Date Recorded Sex Assigned at Not on file 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
--- OUTSIDE RECORDS SUMMARY | 2025-08-24 09:24 | XMS_ITS | Clinical Summary ---
Author Organization [facility] Address [facility] [place] [address] Care Team Providers Care Nicker Name Role Phone Noy Ankit Stephens DO Primary Care Provider [phone] Allergies No known active allergies Medications cholecalciferol, [...] of breast metastatic to bone, unspecified laterality Take 1 Tablet by mouth every 4 hours as needed for Pain. Max Daily Amount: 6 Tablets 120 Tablet 5 Active palbociclib (Ibrance) 125 mg tablet Take 1 Tablet (125 mg) by mouth daily with breakfast for 3 weeks on, 1 week off. Repeat every 28 days 21 Tablet 3 5 Active oxyCODONE-acetam inophen (PERCOCET) 5-325 mg tabletIndication s:Carcinoma of breast metastatic to bone, unspecified laterality Take 1 Tablet by mouth every 4 hours as needed for Pain. Max Daily Amount: 6 Tablets 15 Tablet 07/21/2025 4:33 PM CDT 5 025 Discontin ued(Reord er) oxyCODONE-acetam inophen (PERCOCET) 5-325 mg tabletIndication s:Carcinoma of breast metastatic to bone, unspecified laterality Take 1 Tablet by mouth every 4 hours as needed for Pain. Max Daily Amount: 6 Tablets 15 Tablet 5 025 Discontin ued(Reord er) Active Problems [...] Encounters Date Type Department Care Team Description 08/23/2025 Specialty Pharmacy [facility] [address] [place] [address] Cindy Leone, PHARMACIST 08/20/2025 Orders Only [facility] - [address] [place] [address] Lj Fam MD Carcinoma of breast metastatic to bone, unspecified laterality (Primary Dx) 08/17/2025 External Device Data [facility] ABSTRACTION Provider, Abstract 08/17/2025 External Device Data [facility] ABSTRACTION Provider, Abstract 08/17/2025 External Device Data [facility] ABSTRACTION Provider, Abstract 08/11/2025 Specialty Pharmacy [facility] [address] [place] [phone] Cindy Leone PHARMACIST 08/10/2025 4:30 PM CDT Telephone Check Up [facility] Hematology [facility] [address] [place] [address] Lj Fam MD 08/03/2025 Orders Only [facility] Hematology [facility] [address] [place] [address] Lj Fam MD 08/02/2025 1:15 PM CDT - 08/02/2025 11:59 PM CDT Hospital Encounter [address] [address] Lj Fam MD Discharge Disposition: Home or Self Care 08/02/2025 9:09 AM CDT - 08/02/2025 11:59 PM CDT Hospital Encounter [address] [phone] Lj Fam MD Discharge Disposition: Home or Self Care 08/02/2025 Refill [facility] Hematology [facility] [address] [place] [address] Lj Fam MD Carcinoma of breast metastatic to bone, unspecified laterality (CMS/HCC) 07/27/2025 3:45 PM CDT Office Visit [facility] Hematology [facility] [address] [place] [address] Lj Fam MD Malignant neoplasm of upper-outer quadrant of right breast in female, estrogen receptor positive (CMS/HCC) (Primary Dx); Carcinoma of breast metastatic to bone, unspecified laterality (CMS/HCC) 07/27/2025 External Device Data [facility] ABSTRACTION Provider, Abstract 07/20/2025 External Device Data [facility] ABSTRACTION Provider, Abstract 07/20/2025 External Device Data [facility] ABSTRACTION Provider, Abstract 07/16/2025 8:52 AM CDT - 07/21/2025 3:50 PM CDT Hospital Encounter [facility] Oncology [address] [place] [address] Any Krishnan MD Padgett, MD Liat Montoya, DO Azalea Haque, Devan Palumbo MD Hypercalcemia Discharge Disposition: Home or Self Care 07/16/2025 Travel 07/13/2025 External Device Data [facility] ABSTRACTION Provider, Abstract 06/29/2025 External Device Data [facility] ABSTRACTION Provider, Abstract 06/22/2025 External Device Data [facility] ABSTRACTION Provider, Abstract 06/14/2025 Orders Only [facility] - [place] [address] [place] [address] Lj Fam MD Osteopenia of multiple sites [...] on file 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 Gender Identity Not on file Sexual [...] 07/16/2025 8:55 AM CDT Plan of Treatment Health Maintenance Due Date Last Done Comments PNEUMOCOCCAL VACCINE 50+ YEA RS (1 of 2 - PCV) 1969 Traditional Medicare (ACO) A nnual Wellness Visit 1971 ZOSTER VACCINE (1 of 2) 1971 FIT-DNA Q 3 years 1997 FIT/FOBT Q 1 year 1997 Flex Sig/CT Colonography Q 5 years 1997 Preventative Visit- Commercial 11/11/2024 INFLUENZA VACCINE (#1) 2025 OSTEOPOROSIS SCREENING 07/13/2026 , 07/13/2021, 01/19/2019, Additional history exists BREAST CANCER SCREENING 07/30/2026 07/30/20, 07/20/2024, 07/20/2024, Additional history exists RSV VACCINE (60+ or ) (1 - 1-dose 75+ series) 2027 COLORECTAL SCREENING 09/13/2032 09/13/2022 Colorectal Cancer Screening 09/13/2032 DTAP/TDAP/TD VACCINES (3 - T d or Tdap) 09/28/2034 09/28/2024, 04/09/2022 Procedures Procedure Name Priority Date/Time Associated Diagnosis Comments [facility] Routine 08/05/2025 11:07 AM CDT Carcinoma of breast metastatic to bone, unspecified laterality (CMS/HCC) NM BONE SCAN WHOLE BODY Stat 08/02/2025 2:06 PM CDT Malignant neoplasm of upper-outer quadrant of right breast in female, estrogen receptor positive (CMS/HCC) MAMMO SCREENING BILAT Routine 07/30/2025 9:20 AM CDT [facility] NORMAL BLOOD Routine 07/27/2025 4:49 [...] TREAT Routine 07/16/2025 1 0:03 AM CDT XR DEXA BONE DENSITY AXIAL 1 OR MORE SITES Routine 07/13/2021 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 08/05/2025 11:07 AM CDT [facility] Genetic Diseases Assessed Cancer 08/05/2025 11:07 AM CDT [facility] Description of Ranges of DNA Sequences Examined 105 gene liquid biopsy 08/05/2025 11:07 AM CDT [facility] Overall Interpretation positive 08/05/2025 11:07 AM CDT [facility] [email or web address] 08/05/2025 11:07 AM CDT [facility] Comment:[facility] link Low Coverage Regions SPOP 08/05/2025 11:07 AM CDT [facility] Therapy Count 4 08/05/2025 11:07 AM CDT [facility]: Potential Therapy 1 Gene: 6407^KRAS^HGNC Variant: p.G12R Match Type: snvIndel Match Type Description: KRAS p.G12R Agent: Defactinib + Avutometinib Drug Class: Combination (FAK Inhibitor + MEK Inhibitor) Tissue: Low Grade Ovarian Serous Adenocarcinoma Association: Response Evidence Status: Consensus Evidence ID: NCCN KDB Variant: [id number] Label: FDA Off Label FDA Approved?: Yes On label?: No 08/05/2025 11:07 AM CDT [facility]: Potential Therapy 2 Gene: 795^SEAN^HGNC Variant: p.G1459* Match Type: snvIndel Match Type Description: SEAN p.G1459* Agent: Olaparib Drug Class: PARP Inhibitor Tissue: Prostate Cancer Association: Response Evidence Status: Consensus Evidence ID: NCCN KDB Variant: Lwke-va-vualifee Label: FDA Off Label FDA Approved?: Yes On label?: No 08/05/2025 11:07 AM CDT [facility]: Potential Therapy 3 Gene: 795^SEAN^HGNC Variant: p.W1750* Match Type: snvIndel Match Type Description: SEAN p.W1750* Agent: Olaparib Drug Class: PARP Inhibitor Tissue: Prostate Cancer Association: Response Evidence Status: Consensus Evidence ID: NCCN KDB Variant: [id number]-xsfqifjm Label: FDA Off Label FDA Approved?: Yes On label?: No 08/05/2025 11:07 AM CDT [facility]: Potential Therapy 4 Gene: 1097^BRAF^HGNC Variant: p.G469A Match Type: snvIndel Match Type Description: BRAF p.G469A Agent: Trametinib Drug Class: MEK Inhibitor Tissue: Melanoma Association: Response Evidence Status: Consensus Evidence ID: NCCN KDB Variant: [id number]-sc-niapavtr Label: FDA Off Label FDA Approved?: Yes On label?: No 08/05/2025 11:07 AM CDT [facility] Trial Count 3 08/05/2025 11:07 AM CDT [facility]: Clinical Trial Match 1 Clinical Trial NCT ID: [id number] Clinical Trial Title: A Phase 1/2 Study of Inlexisertib (DCC-3116) in Patients With KAMERON/MAPK Pathway Mutant Solid Tumors Clinical Trial URL: [email or web address] Clinical Phase: Phase 1/Phase 2 Clinical Trial Matches: BRAF p.G469A mutation, KRAS p.G12R mutation Clinical Trial Distance and Location: [address] [place], [place] 08/05/2025 11:07 AM CDT [facility]: Clinical Trial Match 2 Clinical Trial NCT ID: [id number] Clinical Trial Title: Tumor-agnostic Precision Immuno-oncology and Somatic Targeting Rational for You (TAPISTRY) Platform Study Clinical Trial URL: [email or web address] Clinical Phase: Phase 2 Clinical Trial Matches: SEAN p.W1750* mutation, SEAN p.G1459* mutation Clinical Trial Distance and Location: [address] [place], [place] 08/05/2025 11:07 AM CDT [facility]: Clinical Trial Match 3 Clinical Trial NCT ID: [id number] Clinical Trial Title: A Study of Tulmimetostat FAC310 (CPI-0209) in Patients With Advanced Solid Tumors and Lymphomas Clinical Trial URL: [email or web address].gov/[email or web address] Clinical Phase: Phase 1/Phase 2 Clinical Trial Matches: ARID1A p.Q1584* mutation Clinical Trial Distance and Location: [address] [place] [address] 08/05/2025 11:07 AM CDT [facility] Tumor Mutational [place] 8.6 m/MB 08/05/2025 11:07 AM CDT [facility] Microsatellite Instability Note MSI-High not detected 08/05/2025 11:07 AM CDT [facility] Blood specimen (specimen) 07/30/2025 8:22 PM CDT Narrative This result has genomic variants that were not included in this document. us Lj Fam MD MOLECULAR ORDERABLES Final Resu lt [facility] [address], [address] [place] [address], [facility] [address] [place] [address] * NM BONE SCAN WHOLE BODY (08/02/2025 2:06 PM CDT) Anatomical Region Laterality Modality Nuclear Medicine 08/02/2025 2:07 PM CDT Impressions 08/02/2025 2:17 PM CDT IMPRESSION: 1. Numerous foci of increased tracer uptake throughout the axial and appendicular skeleton likely representing widespread osseous metastatic disease. DICTATION LOCATION: Location [address] [place] [address] 08/02/2025 2:17 PM CDT EXAMINATION: NM BONE SCAN WHOLE BODY DATE: 08/02/2025 2:06 PM HISTORY: bone mets; Malignant neoplasm of upper-outer quadrant of right breast in female, estrogen receptor positive (CMS/HCC); Malignant neoplasm of upper-outer quadrant of right breast in female, estrogen receptor positive (CMS/HCC) TECHNIQUE: A dose 23.7 mCi of technetium-99m methyl diphosphonate was administered intravenously. Anterior and posterior planar whole-body images and SPECT images of the chest, abdomen, and pelvis were obtained 3 hours after tracer injection. COMPARISON: No prior study is available for comparison at the time of this dictation. FINDINGS: Increased tracer uptake is seen in the calvarium. Multiple foci of increased tracer uptake are seen throughout the ribs both anteriorly and posteriorly. Increased tracer uptake is seen in the thoracic and lumbar spine. Increased tracer uptake is seen along the left scapula. Increased tracer uptake is seen in the iliac bones near the sacroiliac joints. Increased tracer uptake is seen proximally with both the right and left femur and distally in the right femur. Increased tracer uptake is seen in the proximal right and left humerus. Right knee arthroplasty is present. us Lj Fam MD NM ORDERABLES Edited Result - Final * MAMMO SCREENING BILAT (07/30/2025 9:20 AM CDT) Anatomical Region Laterality Modality Breast Bilateral Mammography us Lj Fam MD MAMMO ORDERABLES Final Result * [facility] X[facility] NORMAL BLOOD (07/27/2025 4:49 PM CDT) [facility] 07/27/2025 11:00 PM CDT [facility] Comment:See NGS Report for R esults. Blood specimen (specimen) 07/27/2025 4:49 PM CDT 07/27/2025 4:50 PM CDT us Lj Fam MD MOLECULAR ORDERABLES Final Resu lt [facility] [address], [address] [place] [address], [facility] [address], [address] [place] [address] * PULSE OXIMETRY, WITH EXERCISE (07/21/2025 10:13 AM CDT) Narrative [facility] - 07/21/2025 10:13 AM CDT Kathleen [...] The patient ambulated appr. 100ft. Please call [phone] for any questions about this walk study. us Devan Tristan MD PFT ORDERABLES Final Result Performing Organization Address [facility] Co de Phone Number [facility] [address] [place] [address] * (ABNORMAL) PROTIME-INR (07/21/2025 5:45 AM CDT) Only the most recent of6 resultswithin the time period is included. PROTIME 20.0(H) 12.7 - 15.1 Seconds 07/21/2025 6:43 AM CDT [facility] INR 1.7(H) 0.9 - 1.1 07/21/2025 6:43 AM CDT [facility] Blood Venipuncture / Unknown 07/21/2025 5:45 AM CDT 07/21/2025 6:21 AM CDT Narrative [facility] - 07/21/2025 6:43 AM CDT INR Therapeutic Range: Adult: 2.0 - 3.0 for pulmonary embolism or prophylaxis against venous thrombosis or systemic embolization. 2.0 - 3.0 for patients with tissue heart valves. 2.5 - 3.5 for patients with mechanical heart valves or post ME. Pediatric (12 years and under): 1.5 - 3.0 Although the target range in children is not well established, INR values of 1.5 - 3.0 are recommended for most patients. Higher values have been used in children with prosthetic cardiac valves and hereditary clotting disorders. [place] (<3 days) therapeutic ranges have not been established. us Lindsay Miramontes MD HEMATOLOGY ORDERABLES Final R esult Performing Organization Address City/[facility]/ZIP Co de Phone Number [facility]# [id number] [address] [place] [address] * MAGNESIUM LEVEL (07/21/2025 5:45 AM CDT) Only the most recent of5 resultswithin the time period is included. MAGNESIUM 1.7 1.6 - 2.4 mg/dL 07/21/2025 7:56 AM [facility] Blood Venipuncture / Unknown 07/21/2025 5:45 AM CDT 07/21/2025 6:21 AM CDT us Jacquelin Josue DO CHEMISTRY ORDERABLES Final R esult [facility]# [id number] [address] [place] [address] * (ABNORMAL) COMPREHENSIVE METABOLIC PANEL (07/21/2025 5:45 AM CDT) Only the most recent of6 resultswithin the time period is included. SODIUM 143 136 - 145 mmol/L 07/21/2025 7:56 AM T [facility] POTASSIUM 3.7 3.5 - 5.0 mmol/L 07/21/2025 7:56 AM [facility] CHLORIDE 109(H) 98 - 107 mmol/L 07/21/2025 7:56 AM T [facility] SERVICES [facility] CO2 24 22 - 29 mmol/L 07/21/2025 7:56 AM T [facility] CALCIUM 8.0(L) 8.6 - 10.2 mg/dL 07/21/2025 7:56 AM T [facility] BUN 9 8 - 23 mg/dL 07/21/2025 7:56 AM [facility] CREATININE 0.69 0.51 - 0.95 mg/dL 07/21/2025 7:56 AM T [facility] Comment:The GFR result is no t clinically significant on patients <18 or >70 years of age. GLUCOSE 102(H) 74 - 99 mg/dL 07/21/2025 7:56 AM [facility] TOTAL PROTEIN 6.1(L) 6.7 - 8.6 g/dL 07/21/2025 7:56 AM [facility] ALBUMIN 3.2(L) 3.5 - 5.2 g/dL 07/21/2025 7:56 AM [facility] BILIRUBIN TOTAL 0.3 0.0 - 1.1 mg/dL 07/21/2025 7:56 AM [facility] ALKALINE PHOSPHATASE 172(H) 35 - 104 U/L 07/21/2025 7:56 AM [facility] AST 45(H) <33 U/L 07/21/2025 7:56 AM [facility] ALT 24 <34 U/L 07/21/2025 7:56 AM [facility] GFR >60 mL/min/1.7 3 sq meter 07/21/2025 7:56 AM [facility] Comment:eGFR calculated with 2020 CKD-EPI equation. Vegetarian diet, extremely high or low muscle mass, and may affect results. Cystatin C with Glomerular Filtration Rate is a suitable alternative for these patients. ANION GAP 10 8 - 16 mmol/L 07/21/2025 7:56 AM [facility] Blood Venipuncture / Unknown 07/21/2025 5:45 AM CDT 07/21/2025 6:21 AM [facility] - 07/21/2025 7:56 AM [facility] Samples containing indocyanine green cause interferences on Total and/or Direct Bilirubin and must not be measured. us Kerwin F[place] PA-C CHEMISTRY ORDERABLES Fin al Result [facility] CLIA# [id number] [address] [place] [address] * CT GUIDED BIOPSY (07/20/2025 4:05 PM CDT) Anatomical Region Laterality Modality Computed Tomogra phy 07/20/2025 3:36 PM CDT Impressions 07/20/2025 4:41 PM CDT Impression: CT-guided right iliac sclerotic bone lesion biopsy. DICTATION LOCATION: Location 1 - [facility] 07/20/2025 4:[address]-GUIDED RIGHT ILIAC [...] lesion biopsy. DICTATION LOCATION: Location 1 - [facility] us Dada Khan MD CT ORDERABLES Final Result * PATHOLOGY (07/20/2025 4:05 PM CDT) CASE REPORT Surgical Pathology Report Case: [id number] Authorizing Provider: Ryan Daniels MD Collected: 07/20/2025 04:05 PM Ordering Location: [facility] Received: 07/21/2025 07:28 AM Oncology Pathologist: Chas Valenzuela MD Specimen: Bone, right iliac bone biopsy 5 4:55 PM CDT [facility] ADDENDUM 2 This addendum is issued to report the results of FISH Analysis HER2 Breast (see hyperlink below for scan of outside report). 5 4:55 PM CDT [facility] [employer] Addendum electronically signed by Chas Valenzuela MD on 08/02/2025 at 1655 CDT ADDENDUM 1 A request for [facility] was received on 07/29/[address] Lj Fam. This test was performed on tissue from case [id number]. The case report, slides, and blocks for this case were retrieved from archives. The pathologist reviewed the original pathology report and examined candidate slides. The requested test cannot be performed because the tissue sample required decalcification and is no longer amenable to testing. 5 4:55 PM [facility] Addendum electronically signed by Best Garza DO on 07/29/2025 at 1430 CDT FINAL DIAGNOSIS Bone, right iliac, biopsy: - Metastatic carcinoma, consistent with breast primary (favor invasive lobular carcinoma) - ER: 7/8 (positive), [place]: 0/8 (negative), HER2 IHC: 2+ (equivocal) 5 4:55 PM [facility] at 0921 CDT DIAGNOSIS COMMENT HER2 FISH testing has been ordered and the results will be reported in an addendum. 5 4:55 PM [facility] GROSS DESCRIPTION Received in one container labeled [...] decalcified in decal ll at the bench. [facility] 5 4:55 PM [facility] MICROSCOPIC DESCRIPTION The slides are labeled [id number] and Damien Pulido. Sections show bone trabeculae infiltrated by single epithelioid cells which stain positive for pankeratin, GATA3, and ER by immunohistochemistry . These findings are consistent with metastatic carcinoma of breast origin. Immunohistochemistry for E-cadherin shows reduced to absent expression and p120 shows abnormal cytoplasmic expression, consistent with a lobular phenotype. 5 4:55 PM [facility] CLINICAL INFORMATION Right iliac bone biopsy No Dx found. 75 y.o. female with PMHX of breast cancer with diffuse skeletal osseous sclerotic lesions. 5 4:55 PM CDT [facility] SPECIAL AND IMMUNOPEROXIDASE STAINS This addendum is [...] 0 to 3+ scale in accordance to 2022 CAP/ASCO guidelines. Estrogen and progesterone receptor content [...] more similar to ER negative cancers. 5 4:55 PM CDT [facility] COMMENT Special stain, immunohistochemical, and/or in situ hybridization results are interpreted with controls that demonstrate appropriate staining reactions. Note on use of immunohistochemistry reagents and in situ hybridization probes: These tests were developed and their performance characteristics determined by [facility], Department of Laboratory Medicine. It has [...] part or completely in the following laboratories: [facility], CLIA #[id number] [address] [place] [address] [facility], [place] #[id number] [address] [place] [address] [facility]/[place], CLIA #[id number] [address] [facility] [place] [address] This report was created with the [employer] voice-activated dictation system. Inherent to this system is the possibility of syntax, grammar, punctuation and other errors that could impact the interpretation of the report. If there are interpretative questions about aspects of this report, please contact the performing pathologist. 4:55 PM CDT [facility] Tissue ENTIRE BONE ORGAN / Unknown Collection / Unknown 07/20/2025 4:05 PM CDT 07/21/2025 7:28 AM CDT Comment:Right iliac bone bio psy Ryan Daniels MD PATHOLOGY/CYTOLOGY ORDERABLES E dited Result - [id number] [address] [place] [address] * CT PELVIS WO CONTRAST (07/19/2025 11:27 [...] 4.0 - 9.8 K/uL 07/19/2025 4:09 AM [facility]ORATORY SERVICES - [facility] RBC 2.86(L) 3.90 - 4.90 M/uL 07/19/2025 4:09 AM [facility]ORY SERVICES - [facility] HEMOGLOBIN 9.2(L) 11.8 - 14.8 g/dL 07/19/2025 4:09 AM [facility]ORY SERVICES - [facility] HEMATOCRIT 28.7(L) 35.5 - 44.0 % 07/19/2025 4:09 AM [facility]ORY SERVICES - [facility] MCV 100.3(H) 82.0 - 99.0 fL 07/19/2025 4:09 AM [facility] SERVICES - [facility] MCH 32.2 27.2 - 32.6 pg 07/19/2025 4:09 AM [facility] [employer] - [facility] MCHC 32.1 31.5 - 35.5 g/dL 07/19/2025 4:09 AM [facility] SERVICES - [facility] PLATELETS 184 140 - 350 K/uL 07/19/2025 4:09 AM [facility] [employer] SERVICES - [facility] MPV 9.7 9.3 - 12.4 fL 07/19/2025 4:09 AM [facility] SERVICES - [facility] RDW 17.9(H) 11.5 - 14.5 % 07/19/2025 4:09 AM [facility] SERVICES - [facility] RDW-STDEV 66.1(H) 37.1 - 48.7 fL 07/19/2025 4:09 AM [facility] [facility] - [facility] Blood Venipuncture / Unknown 07/19/2025 3:29 AM CDT 07/19/2025 3:59 AM CDT us Jacquelin Josue DO HEMATOLOGY ORDERABLES Final Result [facility] [facility] CLIA# [id number] [address] [place] [address] * MRI BRAIN W WO CONTRAST (07/19/2025 [...] - 99 mg/dL 07/18/2025 12:03 PM CDT [facility] LABORATORY [facility] SPECIMEN SOURCE, GLUCOSE POC Whole Blood 07/18/2025 12:03 PM CDT [facility] LAB[facility]ATORY [facility] COMMENT, GLU POC Alerted Nurse/BETSY/D r 07/18/2025 12:03 PM CDT [facility] LAB[facility]ATORY [facility] Blood, whole 07/18/2025 12:0 3 PM CDT 07/18/2025 1:28 PM CDT Jacquelin Josue DO POINT OF CARE TESTING Final Result [facility] LAB[facility]ATORY [facility] JENN# [id number] [address] [place] [address] * US RENAL AND BLADDER (07/18/2025 9:52 AM CDT) Anatomical Region Laterality Modality Abdomen Ultrasound 07/18/2025 9:53 AM CDT Impressions 07/18/2025 10:37 AM CDT IMPRESSION: Right renal cysts. No acute abnormality. DICTATION LOCATION: Location [address] [place] [address] Narrative 07/18/2025 10:37 AM CDT RENAL ULTRASOUND [...] cysts. No acute abnormality. DICTATION LOCATION: Location [address] [place] [address] us Harshad Lynn NP US ORDERABLES Final [...] disease. DICTATION LOCATION: Location [address] ORDERABLES Final Result * (ABNORMAL) HEMOGLOBIN AND HEMATOCRIT (07/17/2025 5:39 PM CDT) Pathologist [facility] HEMOGLOBIN 9.3(L) 11.8 - 14.8 g/dL 07/17/2025 6:35 PM CDT [facility] [employer] [facility] Comment:Significant change f rom prior result, correlate clinically and redraw if necessary. HEMATOCRIT 28.1(L) 35.5 - 44.0 % 07/17/2025 6:35 PM CDT [facility] Blood Venipuncture / Unknown 07/17/2025 5:39 PM CDT 07/17/2025 5:47 PM CDT Jacquelin Josue DO HEMATOLOGY ORDERABLES Final Result Performing Organization Address [facility]/ZIP Co de Phone Number [facility] [employer] [facility] CLIA# [id number] [address] [place] [address] * TRANSFUSE RED BLOOD CELLS (07/17/2025 3:02 PM CDT) Jacquelin Josue DO BLOOD TRANSFUSION ORDERABLES Final Result * FOLATE, SERUM (07/17/2025 1:07 PM CDT) Pathologist [facility] FOLATE, SERUM >20.0 >4.5 ng/mL 07/17/2025 2:26 PM CDT [facility] [employer] Blood Venipuncture / Unknown 07/17/2025 1:07 PM CDT 07/17/2025 1:11 PM CDT Moni Mckeon MD CHEMISTRY ORDERABLES Final Resu lt Performing Organization Address City/[facility]/ZIP Co de Phone Number [facility] [employer] [facility] CLIA# [id number] [address] [place] [address] * VITAMIN B12 AND FOLATE (07/17/2025 1:07 PM CDT) [facility] VITAMIN B12 940 232 - 1,245 pg/mL 07/17/2025 2:26 PM CDT [facility] Comment:It has been reported that between 5 to 10% of patients with values between 200 and 400 pg/mL may experience neuropsychiatric and hematologic abnormalities due to occult B12 deficiency. Less than 1% of patients with values above 400 pg/mL will have symptoms. FOLATE, SERUM >20.0 >4.5 ng/mL 07/17/2025 2:26 PM CDT [facility] Blood Venipuncture / Unknown 07/17/2025 1:07 PM CDT 07/17/2025 1:11 PM CDT Harshad Lynn NP CHEMISTRY ORDERABLES Final Resu lt Performing Organization Address City/[facility]/ZIP Co de Phone Number [facility] CLIA# [id number] [address] [place], [place] [address] * (ABNORMAL) LACTATE DEHYDROGENASE (07/17/2025 1:07 PM CDT) [facility] LD (LACTATE DEHYDROGENASE) 232(H) 135 - 214 U/L 07/17/2025 2:00 PM CDT [facility] Blood Venipuncture / Unknown 07/17/2025 1:07 PM CDT 07/17/2025 1:11 PM CDT Moni Mckeon MD CHEMISTRY ORDERABLES Final Resu lt [facility] CLIA# [id number] [address] [place] [address] * VERIFICATION BLOOD GROUP (07/17/2025 9:10 AM CDT) [facility] ABO GROUP A 07/17/2025 10:05 AM CDT [email or web address] RH (D) TYPE Positive 07/17/2025 10:05 AM CDT [facility] LABORATORY SERVICES -- [facility] Blood Venipuncture / Unknown 07/17/2025 9:10 AM CDT 07/17/2025 9:16 AM CDT Fredrikc Hernandez MD BLOOD BANK ORDERABLES Final Result [facility] LABORATORY SERVICES -- [facility] CLIA# [id number] [address] [place] [address] * TYPE AND SCREEN (07/17/2025 8:36 AM CDT) ABO GROUP A 07/17/2025 9:43 AM CDT [facility] LABORATORY SERVICES -- [facility] RH (D) TYPE Positive 07/17/2025 9:43 AM CDT [facility] LABORATORY SERVICES -- [facility] ANTIBODY SCREEN Negative 07/17/2025 9:43 AM CDT [facility] LABORATORY SERVICES -- [facility] Blood Venipuncture / Unknown 07/17/2025 8:36 AM CDT 07/17/2025 8:44 AM CDT Jacquelin Josue DO BLOOD BANK ORDERABLES Edited Result - Final Performing Organization Address City/[facility]/ZIP Co de Phone Number [facility] [id number] [address] [place] [address] * (ABNORMAL) TSH (07/17/2025 8:36 AM CDT) TSH 14.50(H) 0.27 - 4.20 uIU/mL 07/17/2025 1:46 PM CDT [facility] LABORATORY SERVICES - [facility] Blood Venipuncture / Unknown 07/17/2025 8:36 AM CDT 07/17/2025 8:43 AM CDT Harshad Lynn [employer] CHEMISTRY ORDERABLES Final Resu lt [facility] LABORATORY SERVICES - [facility]# [id number] [address] [place] [address] * PREPARE RED BLOOD CELLS (07/17/2025 7:37 AM CDT) Pathologist [facility] COMPONENT TYPE [id number] [facility] LABORATORY SERVICES -- [facility] COMPONENT IDENTIFICATION [id number] [facility] LABORATORY SERVICES -- [facility] UN[facility] ABO A [facility] LABORATORY SERVICES -- [facility] RH POS [facility] LABORATORY SERVICES -- [facility] CROSSMATCH Compatible [facility] LABORATORY SERVICES -- [facility] COMPONENT STATUS Transfused [facility] LABORATORY SERVICES -- [facility] COMPONENT EXPIRATION DATE/TIME [id number] [facility] LABORATORY SERVICES -- [facility] COMPONENT CODING SYSTEM 6200 [facility] LABORATORY SERVICES -- .[facility] VOLUME, BLOOD PRODUCT 350 [facility] LABORATORY SERVICES -- [facility] Other, specify 07/17/2025 7: 37 AM CDT Jacquelin Josue DO LAB TRANSFUSION ORDERABLES E dited Result - Final [facility]# [id number] [address] [place] [address] * MANUAL DIFFERENTIAL (07/17/2025 7:03 AM CDT) Pathologist [facility] PLATELET EST. Consistent w Count 07/17/2025 8:16 AM CDT [facility] LABORATORY SERVICES - [facility] ANISOCYTOSIS 1+ /hpf 07/17/2025 8:16 AM CDT [facility] LABORATORY SERVICES - [facility] MACROCYTES 1+ /hpf 07/17/2025 8:16 AM CDT [facility] LABORATORY SERVICES - [facility] POLYCHROMASIA 1+ /hpf 07/17/2025 8:16 AM CDT [facility] LABORATORY SERVICES - [facility] Blood Venipuncture / Unknown 07/17/2025 7:03 AM CDT 07/17/2025 7:08 AM CDT us Lindsay Miramontes MD HEMATOLOGY ORDERABLES COM Fin al Result [facility] LABORATORY SERVICES [facility] CLALMA# [id number] [address] [place] [address] * (ABNORMAL) CBC WITH DIFFERENTIAL (07/17/2025 7:03 AM CDT) Only the most recent of2 resultswithin the time period is included. Pathologist [facility] WBC 4.1 4.0 - 9.8 K/uL 07/17/2025 7:35 AM CDT [facility] LABORATORY [facility] RBC 1.74(L) 3.90 - 4.90 M/uL 07/17/2025 7:35 AM T [facility] HEMOGLOBIN 5.8(LL) 11.8 - 14.8 g/dL 07/17/2025 7:35 AM T [facility] Comment: Verified by repeat analysis. Significant change from prior result, correlate clinically and redraw if necessary. HEMATOCRIT 18.0(L) 35.5 - 44.0 % 07/17/2025 7:35 AM T [facility] LABORATORY [facility] MCV 103.4(H) 82.0 - 99.0 fL 07/17/2025 7:35 AM T [facility] LABORATORY [facility] MCH 33.3(H) 27.2 - 32.6 pg 07/17/2025 7:35 AM CDT [facility] LABORATORY [facility] MCHC 32.2 31.5 - 35.5 g/dL 07/17/2025 7:35 AM CDT [facility] LABORATORY [facility] RDW 17.0(H) 11.5 - 14.5 % 07/17/2025 7:35 AM CDT [facility] LABORATORY [facility] RDW-STDEV 64.0(H) 37.1 - 48.7 fL 07/17/2025 7:35 AM CDT [facility] LABORATORY [facility] PLATELETS 117(L) 140 - 350 K/uL 07/17/2025 7:35 AM CDT [employer] LABORATORY SERVICES - [facility] MPV 9.6 9.3 - 12.4 fL 07/17/2025 7:35 AM CDT [employer] LABORATORY SERVICES - [facility] NEUTROPHILS 84 % 07/17/2025 7:35 AM CDT [facility] LABORATORY SERVICES - [facility] LYMPHOCYTES 8 % 07/17/2025 7:35 AM T [employer] LABORATORY SERVICES - [facility] MONOCYTES 5 % 07/17/2025 7:35 AM CDT [employer] LABORATORY SERVICES - [facility] EOSINOPHILS 2 % 07/17/2025 7:35 AM CDT [facility] - . [facility] BASOPHILS 0 % 07/17/2025 7:35 AM CDT [employer] LABORATORY SERVICES - . [facility] IMMATURE GRANULOCYTES 2 % 07/17/2025 7:35 AM T [facility] LABORATORY SERVICES - [facility] Comment:IG (Immature Granulo cyte) count includes Metamyelocytes, Myelocytes, and Promyelocytes NEUTROPHIL ABSOLUTE 3.39 1.90 - 7.00 K/uL 07/17/2025 7:35 AM T [facility] LABORATORY SERVICES - [facility] LYMPHOCYTE ABSOLUTE 0.31(L) 0.70 - 4.50 K/uL 07/17/2025 7:35 AM CDT [facility] - . [facility] MONOCYTE ABSOLUTE 0.22 0.10 - 1.30 K/uL 07/17/2025 7:35 AM T [facility] LABORATORY SERVICES - . [facility] EOSINOPHIL ABSOLUTE 0.08 0.00 - 0.70 K/uL 07/17/2025 7:35 AM T [employer] LABORATORY SERVICES - . [facility] BASOPHILS ABSOLUTE 0.00 0.00 - 0.20 K/uL 07/17/2025 7:35 AM [facility] - [facility] IMMATURE GRANULOCYTES ABSOLUTE 0.06(H) 0.00 - 0.03 K/uL 07/17/2025 7:35 AM [facility] [employer] LABORATORY SERVICES - [facility] Blood Venipuncture / Unknown 07/17/2025 7:03 AM CDT 07/17/2025 7:08 AM CDT Lindsay Miramontes MD HEMATOLOGY ORDERABLES Final R esult [facility] CLIA# [id number] [address] [place] [address] * PROCALCITONIN (07/16/2025 10:22 AM CDT) PROCALCITONIN 0.10 <=0.25 ng/mL 07/16/2025 11:15 AM CDT [facility] [employer] [facility] Blood Venipuncture / Unknown 07/16/2025 10:22 AM CDT 07/16/2025 10:30 AM CDT Narrative [facility] [employer] [facility] - 07/16/2025 11:15 AM CDT The [...] 2-4 hours and peaks within 6-24 hours. Lindsay Miramontes MD CHEMISTRY ORDERABLES Final Re sult Performing Organization Address [facility]/ZIP Co de Phone Number [facility] [employer] [facility] CLIA# [id number] [address] [place] [address] * (ABNORMAL) IRON, TIBC, AND PERCENT SATURATION (07/16/2025 10:22 AM CDT) IRON 68 37 - 145 ug/dL 07/16/2025 2:35 PM CDT [facility] LABORATORY [facility] TIBC 231(L) 250 - 450 ug/dL 07/16/2025 2:35 PM CDT [facility] LABORATORY [facility] IRON % SATURATION 29 15 - 50 % 07/16/2025 2:35 PM CDT [facility] LABORATORY [facility] TRANSFERRIN 182(L) 200 - 360 mg/dL 07/16/2025 2:35 PM CDT [facility] LAB[facility]ATORY [facility] Blood Venipuncture / Unknown 07/16/2025 10:22 AM CDT 07/16/2025 10:30 AM CDT Moni Mckeon MD CHEMISTRY ORDERABLES Final Resu lt [facility] CLIL# [id number] [address] [place] [address] * (ABNORMAL) C-REACTIVE PROTEIN (07/16/2025 10:22 AM CDT) Pathologist [facility] CRP 53.8(H) <5.0 mg/L 07/16/2025 11:07 AM CDT [facility] LABORATORY [facility] Blood Venipuncture / Unknown 07/16/2025 10:22 AM CDT 07/16/2025 10:30 AM CDT Lindsay Miramontes MD CHEMISTRY ORDERABLES Final Re sult [facility]# [id number] [address] [place] [address] * HAPTOGLOBIN (07/16/2025 10:22 AM CDT) HAPTOGLOBIN 154 30 - 200 mg/dL 07/17/2025 12:33 PM CDT [facility] LABORATORY [facility] Blood Venipuncture / Unknown 07/16/2025 10:22 AM CDT 07/16/2025 10:30 AM CDT Moni Mckeon MD CHEMISTRY ORDERABLES Final Resu lt Performing Organization Address [facility] de Phone Number [facility] CLIA# [id number] [address] [place] [address] * (ABNORMAL) FERRITIN (07/16/2025 10:22 AM CDT) FERRITIN 493.0(H) 13.0 - 150.0 ng/mL 07/16/2025 2:35 PM CDT [facility] Blood Venipuncture / Unknown 07/16/2025 10:22 AM CDT 07/16/2025 10:30 AM CDT Moni Mckeon MD CHEMISTRY ORDERABLES Final Resu lt Performing Organization Address [facility] de Phone Number [facility] CLIA# [id number] [address] [place] [address] * VITAMIN B12 LEVEL (07/16/2025 10:22 AM CDT) VITAMIN B12 922 232 - 1,245 pg/mL 07/16/2025 2:14 PM CDT [facility] [employer] [facility] Comment:It has been reported that between 5 to 10% of patients with values between 200 and 400 pg/mL may experience neuropsychiatric and hematologic abnormalities due to occult B12 deficiency. Less than 1% of patients with values above 400 pg/mL will have symptoms. Blood Venipuncture / Unknown 07/16/2025 10:22 AM CDT 07/16/2025 10:30 AM CDT Moni Mckeon MD CHEMISTRY ORDERABLES Final Resu lt [facility]# [id number] [address] [place] [place] [address] * XR DEXA BONE DENSITY AXIAL 1 OR MORE SITES (07/13/2021) Anatomical Region Laterality Modality Other Lj Fam MD DIAGNOSTIC IMAGING ORDERABLES F inal Result from Last 3 Months or Most Recently Relevant to Health Maintenance Insurance MEDICARE PART A AND B [employer] [facility] MEDICARE PART A AND B [employer] SU[employer] Medicare Part D Advance Directives For more information, please contact: [phone] * Full Code (Latest Code Status on File) Date Activated Date Inactivated Comments 07/18/2025 8:34 AM 07/21/2025 6:19 PM Care Teams Nicker Relationship Specialty Start Date End Date Ankit Villafuerte DO [address] [facility] [address] [place] [address] PCP - General Internal Medicine 07/30/24
--- OUTSIDE RECORDS SUMMARY | 2025-08-24 09:24 | XMS_ITS | Encounter Summary ---
Author Organization [facility] Address [address] [place] [address] Care Team Providers Care Ultrasound Tester Name Role Phone Ankit Villafuerte DO Primary Care Provider [phone] Encounter Details Date Type Department Care Team (Late st Contact Info) Description 08/23/2025 Specialty Pharmacy [facility] [address] [place] [address] Cindy Leone, PHARMACIST Social History Tobacco Use Types Packs/Day Years [...] on file Legal Sex Female 4:26 AM [employer] Gender Identity Not on file Sexual Orientation Not on file documented as of this encounter Plan of Treatment Not on file documented as of this encounter Visit Diagnoses Not on filedocumented in this encounter Care Teams Ultrasound Tester Relationship Specialty Start Date End Date Ankit Villafuerte DO [address] [facility] [address] [place] [id number] PCP - General Internal Medicine 07/30/24 documented as of this encounter
[2025-08-24 11:14] LABS: Hematocrit 30.2 % (37.0-47.0); Hemoglobin 9.8 g/dL (12.0-15.0); Immature Granulocyte Percent A 2.5 % (0-0.5); Lymphocytes Absolute Auto 0.43 K/mm3 (0.9-3.2); Mean Corpuscular HGB Conc 32.5 g/dl (32-36); Mean Corpuscular Hemoglobin 32.9 pg (26-34); Mean Corpuscular Volume 101.3 fl (80-100); Nucleated Red Blood Cells Absolute Auto 0.130 K/mm3 (0.0-0.012); Nucleated Red Blood Cells Perc 2.2 % (0.0-0.2); Platelet Count Result 225 k/mm3 (150-375); Red Blood Count 2.98 M/mm3 (4.2-5.4); White Blood Count 5.9 K/mm3 (4.5-10.0)
[2025-08-24 11:35] LABS: Alanine Aminotransferase 28 U/L (6-35); Albumin Level 3.7 g/dL (3.5-5.1); Alkaline Phosphatase 154 U/L (38-126); Anion Gap 9 mmol/L (4-12); Aspartate Amino Transferase 66 U/L (14-36); Bilirubin,Total 0.7 mg/dL (0.2-1.3); Blood Urea Nitrogen 16 mg/dL (7-17); Calcium 8.7 mg/dL (8.4-10.2); Carbon Dioxide 22 mmol/L (22-30); Chloride 107 mmol/L (98-107); Estimated CRCL calculation 75 ml/min; Estimated Glomerular Filt Rate > 60; Glucose 103 mg/dL (65-110); Lipase 40 U/L (23-300); Potassium 3.6 mmol/L (3.4-5.0); Sodium 138 mmol/L (137-145); Total Protein 7.1 g/dL (6.3-8.2)
--- NOTE | 2025-08-24 11:47 | ED.NAVMDI ---
HPI - Nausea/Vomiting/Diarrhea General Chief complaint: Nausea/Vomiting/Diarrhea Stated complaint: n/v/d Time Seen by Provider: 08/24/25 11:05 Source: patient Mode of arrival: ambulatory Limitations: no limitations History of Present Illness HPI Narrative: Patient presents with report of N/V/D. Has had 4 or 5 episodes of emesis. 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 History of breast cancer s/p mastectomy. Unable to go through with radiation appointment yesterday or today due to symptoms. Oncologist dr Fam. Experiencing abdominal pain, especially with palpation. No hematemesis or bloody stool. Had been on antibiotics a few months ago for pneumonia but not recently. Has not taken any meds prior to arrival. Doesn't have any anti-emetics. No recent travel. No sick contacts. Subjective fevers and having chills, sweating. PCP [facility]. Related Data Home Medications ?Medication ?Instructions ?Recorded ?Confirmed ?Last Taken ?Type gabapentin 800 mg tablet 800 mg PO BID 05/20/23 08/24/25 07/29/25 History loratadine 10 mg tablet (Claritin) 10 mg PO DAILY 11/25/23 08/24/25 07/29/25 History ascorbic acid (vitamin C) 1,000 mg 1 g PO DAILY 03/19/25 08/24/25 07/29/25 History capsule calcium 600 mg capsule 600 mg PO DAILY 03/19/25 08/24/25 07/29/25 History geriatric multivitamin-min 1 tablet PO DAILY 03/19/25 08/24/25 07/29/25 History letrozole 2.5 mg tablet 2.5 mg PO QAM 03/19/25 08/24/25 07/29/25 History guaifenesin 1,200 mg tablet, 1,200 mg PO BID 03/30/25 08/24/25 07/29/25 History extended release 12 hr (Mucinex) warfarin 2 mg tablet See Rx Instructions .Route .COMPLEX 03/30/25 08/24/25 07/29/25 History ferrous sulfate 325 mg (65 mg 325 mg PO DAILY 08/20/25 08/24/25 Unknown History iron) tablet (Feosol) vitamin B12 1,000 mcg-folic acid 1 tablet sublingual DAILY 08/20/25 08/24/25 08/24/25 History 400 mcg sublingual tablet Allergies Allergy/AdvReac Type Severity Reaction Status Date / Time No Known Allergies Allergy Verified 08/24/25 17:12 [facility] Past Medical History Medical History (Updated 08/28/25 @ 06:01 by Sneha Ferguson MD) History of radiation therapy Bone cancer hip Intractable nausea and vomiting Restless leg syndrome Chronic anticoagulation Superior vena cava thrombosis Cervical cancer status post radiation and chemotherapy Degenerative joint disease Chronic obstructive pulmonary disease suspected though no formal diagnosis per patient report Allergies Exocrine pancreatic insufficiency Osteoporosis due to aromatase inhibitor Hypothyroidism, unspecified 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 status post mastectomy and neoadjuvant chemotherapy, radiation, and hormone therapy Surgical History Surgical History History of open reduction and internal fixation (ORIF) procedure repair right wrist fracture History of arthroscopy of both knees History of cholecystectomy History of appendectomy History of right mastectomy (11/2016) Family History Family History Father Family history of diabetes mellitus in first degree relative Family history of congestive heart failure Mother Family history of malignant neoplasm of breast in first degree relative Other Family history of malignant neoplasm Social History Social History Social History: Surrogate medical decision maker: Charly Pulido, spouse. Code status: FULL CODE. Smoking status: Never smoker Second hand tobacco smoke exposure: No Alcohol intake: former Alcohol use details: Social alcohol use in the past, non since 2013. Substance use: never Substance use type: does not use Do You Feel Safe in your Home?: Yes Lack of Transportation: No Lack of Food: Never True Current Housing: I Have Housing Concerned About Future Housing: No Difficulty Paying Gas/Electric Bills: No Difficulty Paying for Meds: No Currently Unemployed: No Education: High School Diploma/GED Difficulty w/ Childcare or Family Care: No Living arrangements: with family Additional living arrangements comments: HUSB Spiritual care concerns: No Exam Narrative: GENERAL: Appears unwell HEAD: Normocephalic, atraumatic. EYES: Non injected, non icteric ENT: Nares clear, no rhinorrhea or epistaxis. Gross auditory acuity intact. Dry mucous membranes NECK: Supple. No meningismus. CHEST: Speaking in full sentences. No respiratory distress. HEART: Regular rate and rhythm. . ABDOMEN: Soft, nondistended. Generatlized Tenderness to palpation throughout but No rigidity or guarding. Not peritoneal EXTREMITIES: Normal range of motion. No lower extremity edema. SKIN: Warm, dry, no rash. NEURO: No focal deficits. Alert and oriented. Answering questions. Following commands. Normal speech without aphasia or dysarthria. Tongue protrudes midline without deviation. PSYCH: Normal mood and affect. Course Vital Signs Vital signs: Vital Signs Temperature 97.8 F 08/24/25 08:53 Pulse Rate 96 08/24/25 08:53 Respiratory Rate 16 08/24/25 08:53 Blood Pressure 117/64 08/24/25 08:53 Pulse Oximetry 99 08/24/25 08:53 Oxygen Delivery Room Air 08/24/25 08:53 Temperature 97.5 F L 08/25/25 12:04 Pulse Rate 78 08/25/25 12:04 Respiratory Rate 18 08/25/25 12:04 Blood Pressure 136/73 08/25/25 12:04 Pulse Oximetry 98 08/25/25 12:04 Oxygen Delivery Room Air 08/25/25 08:55 MDM - Nausea/Vomiting/Diarrhea MDM Narrative Medical decision making narrative: Patient presents with N/V/D. Currently undergoing radiation for bone cancer in hip(s). History of breast cancer s/p mastectomy. Had to miss radiation session yesterday and today due to symptoms. In the emergency department they are afebrile with vital signs within normal limits. Dry mucous membranes on exam and appears unwell. Macrocytic anemia, stable from previous. Normal renal function. Patient has some elevated liver enzymes, chronic. 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 Bentyl ordered. She is without leukocytosis. No bacteriuria seen on urinalysis however patient does have a significant amount of white blood cells. While this may represent sterile pyuria, there other indices of infection and given the presence of weinstein colitis on imaging, reasonable to give antibiotics. 1st dose cipro and flagyl given in the ED. 2 L IV fluids ordered given dehydrated she appeared on exam as well as the presence of ketonuria. Additional medication regimens are trialed and patient remains nauseated. Will need admission for intractable nausea/vomiting. Will obtain EKG given multiple QT prolonging medications. Differential Diagnosis Differential diagnosis: Likely traveler's diarrhea, food poisoning, gastroenteritis, clostridium difficile infection, drug-induced nausea and vomiting, dehydration and other (radiation induced ; colitis/enteritis) Lab Data Attestation: I reviewed the patient's lab results. 08/24/25 11:07 08/24/25 11:07 Labs: Lab Results 08/24/25 Range/Units 11:07 WBC 5.9 (4.5-10.0) K/mm3 RBC 2.98 L (4.2-5.4) M/mm3 Hgb 9.8 L (12.0-15.0) g/dL Hct 30.2 L (37.0-47.0) % MCV 101.3 H (80-100) fl MCH 32.9 (26-34) pg MCHC 32.5 (32-36) g/dl RDW 19.2 H (11.5-14.5) % Plt Count 225 (150-375) k/mm3 MPV 9.3 (7.4-10.4) fl Immature Gran % (Auto) 2.5 H (0-0.5) % Neut % (Auto) 79.9 H (45.5-73.1) % Lymph % (Auto) 7.3 L (18.3-44.2) % [place] % (Auto) 7.6 (2.6-8.5) % Eos % (Auto) 2.4 (0-4.4) % Baso % (Auto) 0.3 (0.2-1.2) % Lymph # (Auto) 0.43 L (0.9-3.2) K/mm3 [place] # (Auto) 0.5 (0.1-0.6) K/mm3 Eos # (Auto) 0.1 (0-0.3) K/mm3 Baso # (Auto) 0.0 (0.0-0.1) K/mm3 Abs Immat Gran (auto) 0.15 H (0.00-0.031) K/mm3 Absolute Neuts (auto) 4.7 (1.3-6.7) K/mm3 Absolute Nucleated RBC 0.130 H (0.0-0.012) K/mm3 Nucleated RBC % 2.2 H (0.0-0.2) % Sodium 138 (137-145) mmol/L Potassium 3.6 (3.4-5.0) mmol/L Chloride 107 (98-107) mmol/L Carbon Dioxide 22 (22-30) mmol/L Anion Gap 9 (4-12) mmol/L BUN 16 (7-17) mg/dL Creatinine 0.66 L (0.7-1.0) mg/dL Estim Creat Clear Calc 75 ml/min Estimated GFR > 60 (59 - ) Glucose 103 (65-110) mg/dL Calcium 8.7 (8.4-10.2) mg/dL Total Bilirubin 0.7 (0.2-1.3) mg/dL AST 66 H (14-36) U/L ALT 28 (6-35) U/L Alkaline Phosphatase 154 H (38-126) U/L Total Protein 7.1 (6.3-8.2) g/dL Albumin 3.7 (3.5-5.1) g/dL Lipase 40 (23-300) U/L Urine Color Dark yellow (Yellow) Urine Appearance Cloudy H (Clear) Urine pH 7.0 (5.0-9.0) Ur Specific [place] 1.020 (1.001-1.035) Urine Protein 2+ H (Negative) mg/dL Urine Glucose (UA) Negative (Negative) mg/dL Urine Ketones 2+ H (Negative) mg/dL Ur Blood (Man) Negative (Negative) Urine Nitrate Negative (Negative) Urine Bilirubin Negative (Negative) Urine Urobilinogen 1.0 (<2.0) mg/dL Leukocyte Esterase Rfl 2+ H (Negative) BELA/UL Urine RBC 3-5 H (0-2) /hpf Urine WBC 51-100 H (0-3) /hpf Ur Squamous Epith Cells Occasional (Few) /hpf Urine Bacteria None seen /hpf Urine Casts 0-2 Imaging Data Radiologist's impression: IMPRESSION: 1. Pancolitis. 2. Presumed thoracic central venous obstruction. 3. Additional findings as above. ECG Data EKG #1: Attestation: I personally reviewed and interpreted this ECG as follows: ECG completion date: 08/24/25 ECG completion time: 15:44 Interpretation: Normal sinus rhythm at a rate of 92 beats per minute. GA interval 168. QRS 90. QT/QTC 416/515. Good R-wave progression across the precordial leads. No T-wave inversions. Discharge Plan Discharge Clinical Impression: Anemia, macrocytic, Abnormal transaminases, Pancolitis, Abnormal urinalysis, Dehydration Patient Disposition: Still a Patient Condition: Stable
[2025-08-24] MEDS: SODIUM CHLORIDE 0.9% IV 1,000 ML 999 ML IV CONT ×2 (12:25→13:35)
[2025-08-24] MEDS: ONDANSETRON INJ 4 MG/2 ML VIAL IV PUSH (12:26)
[2025-08-24] MEDS: DICYCLOMINE HCL 10 MG CAPSULE PO (12:30)
[2025-08-24 12:39] LABS: Add Urine Microscopic? YES; Appearance Urine Cloudy (Clear); Glucose Urine UA Negative (Negative); Leukocyte Esterase Ur 2+ LEU/UL (Negative); Nitrate Urine Negative (Negative); Non Pathogenic Casts 0-2; Specific Grav Ur 1.020 (1.001-1.035)
--- OUTSIDE RECORDS SUMMARY | 2025-08-24 13:35 | XMS_ITS ---
Author Organization [facility] Address [address], [address] [place] [address] Phone Care Team Providers Care Slag Motor Operator Name Role Phone Unavailable Primary Care [...]
[2025-08-24] MEDS: CIPROFLOXACIN 500 MG TAB PO ×2 (13:36→23:03)
--- OUTSIDE RECORDS SUMMARY | 2025-08-24 13:36 | XMS_ITS | Clinical Summary ---
Author Organization [facility] Address [address], [address] [place] [address] Phone Care Team Providers Care Upset Welding Machine Operator Name Role Phone Unavailable Primary Care Provider Unavailabl e Allergies No known active allergies Medications furosemide (LASIX) 40 MG Tablet TAKE 1 TABLET BY ORAL ROUTE EVERY DAY 2 6 Active SYNTHROID 125 MCG Tablet TAKE 1 TABLET BY ORAL ROUTE EVERY DAY 2 6 Active montelukast (SINGULAIR) 10 MG Tablet Take 10 mg by mouth daily. 1 6 Active CREON [address] Particles TAKE ONE CAPSULE [...] patient's age to complete this topic Insurance [employer]
[2025-08-24] MEDS: FAMOTIDINE 20 MG/2 ML VIAL IV PUSH (14:32)
[2025-08-24] MEDS: METOCLOPRAMIDE HCL INJ 10 MG/2 ML VIAL IV PUSH (14:36)
[2025-08-24] MEDS: HALOPERIDOL LACTATE 5 MG/ML VIAL 2.5 MG IV PUSH (15:14)
--- NOTE | 2025-08-24 15:36 | ECG_ITS ---
Test Date: 2025-08-24 15:44:49 Measurements Intervals [place] Rate: 92 P: 57 [place]: 168 QRS: 2 QRSD: 90 T: 46 QT: 416 QTc: 515 Interpretive Statements SINUS RHYTHM INCOMPLETE RIGHT BUNDLE BRANCH BLOCK BORDERLINE ECG Compared to ECG 07/15/2025 16:35:28 HEART RATE HAS DECREASED Electronically Signed On 08-24-2025 16:49:01 CDT by Fabrizio Contreras D.O.
--- NOTE | 2025-08-24 16:25 | ADMGEN ---
This patient, Damien Pulido, was admitted to Medical Room 249-01. Patient/family oriented to hospital policies and general routines including ID bracelet, bed and alarms, visiting hours, pain management, procedures, bathroom and other care routines, personal items, smoking policy, room service/diet, and visiting hours. Information on how to activate the Rapid Response Team has been discussed. Patient/Family are encouraged to report perceived risks to care and to ask questions if they do not understand what they are told or what they should do.
[2025-08-24] MEDS: DICYCLOMINE HCL 10 MG CAPSULE 20 MG BY MOUTH (17:57)
[2025-08-24] MEDS: GABAPENTIN 400 MG CAPSULE 800 MG PO (17:57)
[2025-08-24] MEDS: guaiFENesin 12 HR 600 MG TABCR 1200 MG PO (23:03)
--- NOTE | 2025-08-24 23:10 | PM.IMHP ---
H&P: HPI History of Present Illness Date/Time: 08/24/25 7970 Chief Complaint: N/V/D Narrative: 75-year-old female with past medical history of cervical cancer s/p radiation and chemotherapy, hypothyroidism, DVT, right-sided breast cancer s/p right mastectomy now metastatic to bone presented to the ED on 08/24/2025 with complaints of nausea, vomiting, diarrhea. Symptoms initially started on 08/21. Patient started palliative radiation for pelvic metastasis on 08/12 for a cumulative dose of 3000 cGy in 10 fractions. Oncology note dated 08/19 noted patient had vomited twice during radiation treatments. In the ED patient was found to be afebrile with vital signs in normal limits. Labs revealed stable macrocytic anemia, normal renal function, and chronically elevated liver enzymes. No leukocytosis. UA reveals no bacteria but has a significant amount of wbc's. EKG normal sinus rhythm CT abdomen pelvis with contrast reveals pancolitis Review of Systems Review of Systems: All systems reviewed & are unremarkable except as noted in HPI and below PMFSH Past Medical History Medical History (Updated 08/25/25 @ 00:41 by Padmini Chatman APRN) Intractable nausea and vomiting Restless leg syndrome Chronic anticoagulation Superior vena cava thrombosis Cervical cancer status post radiation and chemotherapy Degenerative joint disease Chronic obstructive pulmonary disease suspected though no formal diagnosis per patient report Allergies Exocrine pancreatic insufficiency Osteoporosis due to aromatase inhibitor Hypothyroidism, unspecified 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 status post mastectomy and neoadjuvant chemotherapy, radiation, and hormone therapy Surgical History Surgical History History of open reduction and internal fixation (ORIF) procedure repair right wrist fracture History of arthroscopy of both knees History of cholecystectomy History of appendectomy History of right mastectomy (11/2016) Family History Family History Father Family history of diabetes mellitus in first degree relative Family history of congestive heart failure Mother Family history of malignant neoplasm of breast in first degree relative Other Family history of malignant neoplasm Social History Social History Social History: Surrogate medical decision maker: Charly Pulido, spouse. Code status: FULL CODE. Smoking status: Never smoker Second hand tobacco smoke exposure: No Alcohol intake: former Alcohol use details: Social alcohol use in the past, non since 2013. Substance use: never Substance use type: does not use Do You Feel Safe in your Home?: Yes Lack of Transportation: No Lack of Food: Never True Current Housing: I Have Housing Concerned About Future Housing: No Difficulty Paying Gas/Electric Bills: No Difficulty Paying for Meds: No Currently Unemployed: No Education: High School Diploma/GED Difficulty w/ Childcare or Family Care: No Living arrangements: with family Additional living arrangements comments: HUSB Spiritual care concerns: No Meds Home Medications and Allergies Home Medications ?Medication ?Instructions ?Recorded ?Confirmed ?Type gabapentin 800 mg tablet 800 mg PO BID 05/20/23 08/24/25 History loratadine 10 mg tablet (Claritin) 10 mg PO DAILY 11/25/23 08/24/25 History dicyclomine 20 mg tablet See Rx Instructions .Route 01/13/25 08/24/25 Rx .COMPLEX #270 tabs ascorbic acid (vitamin C) 1,000 mg 1 g PO DAILY 03/19/25 08/24/25 History capsule calcium 600 mg capsule 600 mg PO DAILY 03/19/25 08/24/25 History geriatric multivitamin-min 1 tablet PO DAILY 03/19/25 08/24/25 History letrozole 2.5 mg tablet 2.5 mg PO QAM 03/19/25 08/24/25 History guaifenesin 1,200 mg tablet, 1,200 mg PO BID 03/30/25 08/24/25 History extended release 12 hr (Mucinex) warfarin 2 mg tablet See Rx Instructions .Route .COMPLEX 03/30/25 08/24/25 History levothyroxine 75 mcg tablet 75 mcg PO QAM #90 tabs 04/27/25 08/24/25 Rx budesonide 0.5 mg/2 mL suspension 0.5 mg (2 mL) inhalation DAILY #60 05/06/25 08/24/25 Rx for nebulization mL ipratropium bromide 0.02 % 2.5 ml inhalation Q6H PRN 05/06/25 08/24/25 Rx solution for inhalation shortness of breath or wheezing #300 mL albuterol sulfate 0.63 mg/3 mL 0.63 mg (3 mL) inhalation BID PRN 05/18/25 08/24/25 Rx solution for nebulization shortness of breath or wheezing #75 mL ferrous sulfate 325 mg (65 mg 325 mg PO DAILY 08/20/25 08/24/25 History iron) tablet (Feosol) vitamin B12 1,000 mcg-folic acid 1 tablet sublingual DAILY 08/20/25 08/24/25 History 400 mcg sublingual tablet atenolol 25 mg tablet 25 mg PO QHS #30 tabs 08/23/25 08/24/25 Rx Allergies Allergy/AdvReac Type Severity Reaction Status Date / Time No Known Allergies Allergy Verified 08/24/25 17:12 Vital Signs Vital Signs - 24 hr 08/24/25 08:53 08/24/25 10:57 08/24/25 12:28 Temperature 97.8 F Pulse Rate 96 96 93 Respiratory Rate 16 18 19 Blood Pressure 117/64 124/70 133/73 Pulse Oximetry 99 100 97 Oxygen Delivery Room Air Room Air 08/24/25 13:38 08/24/25 14:37 08/24/25 15:15 Temperature Pulse Rate 97 94 94 Respiratory Rate 18 22 H 13 Blood Pressure 141/83 H 137/75 128/68 Pulse Oximetry 95 96 97 Oxygen Delivery 08/24/25 16:18 08/24/25 17:20 08/24/25 19:33 Temperature 97.8 F 97.7 F Pulse Rate 90 92 Respiratory Rate 18 17 Blood Pressure 135/87 132/63 Pulse Oximetry 95 95 Oxygen Delivery Room Air 08/24/25 20:00 Temperature Pulse Rate 92 Respiratory Rate 17 Blood Pressure Pulse Oximetry 95 Oxygen Delivery Room Air Exam Narrative: GENERAL: non-toxic appearing, but appears uncomfortable. HEAD: Normocephalic, atraumatic. EYES: PERRLA. Conjunctivae clear. NOSE: Normal no drainage. THROAT: Pharynx clear, no exudate. NECK: Trachea midline. No adenopathy, no masses. RESPIRATORY: Airway patent, respirations nonlabored. CTA. CARDIOVASCULAR: Regular rate and rhythm. BREASTS: Right mastectomy GASTROINTESTINAL: Abdomen is soft and nontender. No organomegaly. Bowel sounds normal in all quadrants. GENITOURINARY: Defer MUSCULOSKELETAL: Moves all extremities. No gross deformities. No calf tenderness. SKIN: Warm, dry, normal color. NEURO: A&O X4. Speech clear PSYCHIATRIC: Withdrawn H&P: Results Labs Labs: Short CBC 10/14/25 Range/Units 11:07 WBC 5.9 (4.5-10.0) K/mm3 Hgb 9.8 L (12.0-15.0) g/dL Hct 30.2 L (37.0-47.0) % Plt Count 225 (150-375) k/mm3 BMP 08/24/25 11:07 Sodium 138 Potassium 3.6 Chloride 107 Carbon Dioxide 22 BUN 16 Creatinine 0.66 L Glucose 103 Calcium 8.7 Liver Function 08/24/25 Range/Units 11:07 Total Bilirubin 0.7 (0.2-1.3) mg/dL AST 66 H (14-36) U/L ALT 28 (6-35) U/L Alkaline Phosphatase 154 H (38-126) U/L Albumin 3.7 (3.5-5.1) g/dL Urine 08/24/25 Range/Units 11:07 Urine Color Dark yellow (Yellow) Urine Appearance Cloudy H (Clear) Urine pH 7.0 (5.0-9.0) Ur Specific [place] 1.020 (1.001-1.035) Urine Protein 2+ H (Negative) mg/dL Urine Glucose (UA) Negative (Negative) mg/dL Assessment and Plan Assessment and plan (1) Intractable nausea and vomiting: Code(s): R11.2 - Nausea with vomiting, unspecified Status: Acute Assessment and Plan: Patient presents to ED with 3 day history of intractable nausea and vomiting with episodes of diarrhea. Likely related to radiation therapy. -treated with dicyclomine, Pepcid, Reglan, Benadryl, Haldol in the ED -nausea has subsided after admitted to floor and has been able to tolerate p.o. fluid intake -continue p.r.n. Zofran -Bentyl for cramping (2) Pancolitis: Code(s): K52.9 - Noninfective gastroenteritis and colitis, unspecified Status: Acute Assessment and Plan: Patient presents to ED with 3 day history of intractable nausea and vomiting with episodes of diarrhea. CT abdomen pelvis with contrast reveals pancolitis. Likely related to radiation therapy. -stool culture, C diff, and ova parasite exam sent -ciprofloxacin and metronidazole for pancolitis (3) Breast cancer metastasized to bone: Qualifiers: Laterality: unspecified laterality Qualified Code(s): C50.919 - Malignant neoplasm of unspecified site of unspecified female breast; C79.51 - Secondary malignant neoplasm of bone Code(s): C50.919 - Malignant neoplasm of unspecified site of unspecified female breast; C79.51 - Secondary malignant neoplasm of bone Status: Acute Assessment and Plan: Currently undergoing radiation therapy to pelvis. On hold while inpatient Plan Diet: Regular diet as tolerated GI prophylaxis: Pantoprazole DVT prophylaxis: Warfarin lines/drains: PIV Fluids: 2 L NS bolus Code status: Full Quality VTE Prophylaxis VTE prophylaxis: pharmacologic ordered Hospitalist [facility] Advance Care Plan I have confirmed that the patient's Advanced Care Plan is present, code status is documented, or surrogate decision maker is listed in patient medical record.: Yes Medication Reconciliation I have utilized all available resources to obtain, update and review the patients current medications (includes all prescriptions, OTC, herbals, cannabis, and nutritional supplements).: Yes
[2025-08-25] MEDS: ACETAMINOPHEN 325 MG TABLET 650 MG PO ×2 (03:04→08:25)
[2025-08-25 04:31] VITALS: BP 142/69; PULSE 73; RESP 17; TEMP 36.9; O2SAT 96
[2025-08-25] MEDS: LEVOTHYROXINE SODIUM 75 MCG TABLET PO (05:11)
[2025-08-25 05:27] LABS: INR 4.5; Prothrombin Time 40.3 Seconds (11.1-14.7)
[2025-08-25] MEDS: IPRATROPIUM 0.5 MG/ALBUTEROL SULFATE 2.5 MG (BASE) AMPUL.NEB 3 ML INHALATION (08:11)
[2025-08-25 08:12] VITALS: PULSE 77; RESP 16; O2SAT 96
[2025-08-25 08:19] VITALS: PULSE 78; RESP 16
--- NOTE | 2025-08-25 08:21 | PM.IMPN ---
Progress Note: A&P Assessment and Plan (1) Intractable nausea and vomiting: Code(s): R11.2 - Nausea with vomiting, unspecified Status: Acute Assessment and Plan: Patient presents to ED with 3 day history of intractable nausea and vomiting with episodes of diarrhea. Likely related to radiation therapy. -treated with dicyclomine, Pepcid, Reglan, Benadryl, Haldol in the ED -nausea has subsided after admitted to floor and has been able to tolerate p.o. fluid intake -continue p.r.n. Zofran -Bentyl for cramping 08/25: -N/V? (2) Pancolitis: Code(s): K52.9 - Noninfective gastroenteritis and colitis, unspecified Status: Acute Assessment and Plan: Patient presents to ED with 3 day history of intractable nausea and vomiting with episodes of diarrhea. CT abdomen pelvis with contrast reveals pancolitis. Likely related to radiation therapy. -stool culture, C diff, and ova parasite exam sent -ciprofloxacin and metronidazole for pancolitis 08/25: -Stool samples pending (3) Breast cancer metastasized to bone: Qualifiers: Laterality: unspecified laterality Qualified Code(s): C50.919 - Malignant neoplasm of unspecified site of unspecified female breast; C79.51 - Secondary malignant neoplasm of bone Code(s): C50.919 - Malignant neoplasm of unspecified site of unspecified female breast; C79.51 - Secondary malignant neoplasm of bone Status: Acute Assessment and Plan: Currently undergoing radiation therapy to pelvis. On hold while inpatient Plan Diet: Regular diet as tolerated GI prophylaxis: Pantoprazole DVT prophylaxis: Warfarin lines/drains: PIV Fluids: 2 L NS bolus Code status: Full Subjective Date/time seen: 08/25/25 1106 Interval history: diarrhea, sausage, 1/2 egg kept it down Review of Systems Review of Systems: All systems reviewed & are unremarkable except as noted in HPI and below Exam Narrative: GENERAL: non-toxic appearing, but appears uncomfortable. HEAD: Normocephalic, atraumatic. EYES: PERRLA. Conjunctivae clear. NOSE: Normal no drainage. THROAT: Pharynx clear, no exudate. NECK: Trachea midline. No adenopathy, no masses. RESPIRATORY: Airway patent, respirations nonlabored. CTA. CARDIOVASCULAR: Regular rate and rhythm. BREASTS: Right mastectomy GASTROINTESTINAL: Abdomen is soft and nontender. No organomegaly. Bowel sounds normal in all quadrants. GENITOURINARY: Defer MUSCULOSKELETAL: Moves all extremities. No gross deformities. No calf tenderness. SKIN: Warm, dry, normal color. NEURO: A&O X4. Speech clear PSYCHIATRIC: Withdrawn Objective Data Vital Signs Vital Signs: Vital Signs - 24 hr 08/24/25 08:53 08/24/25 10:57 08/24/25 12:28 Temperature 97.8 F Pulse Rate 96 96 93 Respiratory Rate 16 18 19 Blood Pressure 117/64 124/70 133/73 Pulse Oximetry 99 100 97 Oxygen Delivery Room Air Room Air 08/24/25 13:38 08/24/25 14:37 08/24/25 15:15 Temperature Pulse Rate 97 94 94 Respiratory Rate 18 22 H 13 Blood Pressure 141/83 H 137/75 128/68 Pulse Oximetry 95 96 97 Oxygen Delivery 08/24/25 16:18 08/24/25 17:20 08/24/25 19:33 Temperature 97.8 F 97.7 F Pulse Rate 90 92 Respiratory Rate 18 17 Blood Pressure 135/87 132/63 Pulse Oximetry 95 95 Oxygen Delivery Room Air 08/24/25 20:00 08/25/25 04:31 08/25/25 08:12 Temperature 98.4 F Pulse Rate 92 73 Respiratory Rate 17 17 Blood Pressure 142/69 H Pulse Oximetry 95 96 96 Oxygen Delivery Room Air Room Air 08/25/25 08:12 08/25/25 08:19 Temperature Pulse Rate 77 78 Respiratory Rate 16 16 Blood Pressure Pulse Oximetry Oxygen Delivery Intake/Output Intake/Output: Intake & Output 08/22/25 08/23/25 08/24/25 08/25/25 23:59 23:59 23:59 23:59 Intake Total 2550 150 Balance 2550 150 Meds/Results Medications: Active Medications Generic Name Dose Route Start Last Admin Trade Name Freq PRN Reason Stop Dose Admin Acetaminophen 650 mg 08/24/25 15:33 08/25/25 03:04 Acetaminophen 325 Mg Tablet PO 650 mg Q4H PRN Administration Mild Pain (1-3) or Fever Albuterol/Ipratropium 3 ml 08/24/25 17:46 08/25/25 08:11 Ipratropium 0.5 Mg/Albuterol Sulfate 2.5 Mg (Base) Ampul.Neb 3 Ml INHALATION 3 ml Q6HRT PRN Administration Shortness Of Breath Or Wheezing Atenolol 25 mg 08/24/25 21:00 08/24/25 23:03 Atenolol 25 Mg Tablet PO 25 mg QHS JUANJOSE Administration Ciprofloxacin 500 mg 08/24/25 21:00 08/24/25 23:03 Ciprofloxacin 500 Mg Tab PO 500 mg Q12HR [facility] Administration Dicyclomine HCl 20 mg 08/24/25 17:35 08/24/25 17:57 Dicyclomine Hcl 10 Mg Capsule BY MOUTH 20 mg TID [facility] Administration Gabapentin 800 mg 08/24/25 17:50 08/24/25 17:57 Gabapentin 400 Mg Capsule PO 800 mg BID [facility] Administration Guaifenesin 1,200 mg 08/24/25 21:00 08/24/25 23:03 Guaifenesin 12 Hr 600 Mg Tabcr PO 1,200 mg Q12HR [facility] Administration Letrozole 2.5 mg 08/25/25 09:00 Letrozole (*Chemo) 2.5 Mg [facility] Levothyroxine Sodium 75 mcg 08/25/25 06:30 08/25/25 05:11 Levothyroxine Sodium 75 Mcg Tablet PO 75 mcg DAILY@0630 [facility] Administration Loratadine 10 mg 08/25/25 09:00 Loratadine 10 Mg Tablet PO DAILY [facility] Metronidazole 500 mg 08/24/25 22:00 08/25/25 05:10 Metronidazole 500 Mg Tablet PO 500 mg Q8HR [facility] Administration Ondansetron HCl 4 mg 08/24/25 15:33 Ondansetron Inj 4 Mg/2 Ml Vial IV PUSH Q4H PRN Nausea Pantoprazole Sodium 40 mg 08/25/25 09:00 Pantoprazole 40 Mg Tablet PO QAM [facility] Warfarin Sodium 4 mg 08/25/25 17:00 Warfarin (*Pbkc) 4 Mg Tablet PO DAILY@1700 [facility] Radiology Results: ITS Impressions Abdomen/Pelvis CT 08/24/25 12:13 IMPRESSION: 1. Pancolitis. 2. Presumed thoracic central venous obstruction. 3. Additional findings as above. Labs Labs: Laboratory Results - last 24 hr 08/24/25 08/25/25 11:07 04:56 WBC 5.9 RBC 2.98 L Hgb 9.8 L Hct 30.2 L MCV 101.3 H MCH 32.9 MCHC 32.5 RDW 19.2 H Plt Count 225 MPV 9.3 Immature Gran % (Auto) 2.5 H Neut % (Auto) 79.9 H Lymph % (Auto) 7.3 L [place] % (Auto) 7.6 Eos % (Auto) 2.4 Baso % (Auto) 0.3 Lymph # (Auto) 0.43 L [place] # (Auto) 0.5 Eos # (Auto) 0.1 Baso # (Auto) 0.0 Abs Immat Gran (auto) 0.15 H Absolute Neuts (auto) 4.7 Absolute Nucleated RBC 0.130 H Nucleated RBC % 2.2 H PT 40.3 H INR 4.5 Sodium 138 Potassium 3.6 Chloride 107 Carbon Dioxide 22 Anion Gap 9 BUN 16 Creatinine 0.66 L Estim Creat Clear Calc 75 Estimated GFR > 60 Glucose 103 Calcium 8.7 Total Bilirubin 0.7 AST 66 H ALT 28 Alkaline Phosphatase 154 H Total Protein 7.1 Albumin 3.7 Lipase 40 Urine Color Dark yellow Urine Appearance Cloudy H Urine pH 7.0 Ur Specific [place] 1.020 Urine Protein 2+ H Urine Glucose (UA) Negative Urine Ketones 2+ H Ur Blood (Man) Negative Urine Nitrate Negative Urine Bilirubin Negative Urine Urobilinogen 1.0 Leukocyte Esterase Rfl 2+ H Urine RBC 3-5 H Urine WBC 51-100 H Ur Squamous Epith Cells Occasional Urine Bacteria None seen Urine Casts 0-2 Quality VTE Prophylaxis VTE prophylaxis: pharmacologic ordered
[2025-08-25] MEDS: CIPROFLOXACIN 500 MG TAB PO (08:24)
[2025-08-25] MEDS: guaiFENesin 12 HR 600 MG TABCR 1200 MG PO (08:25)
[2025-08-25] MEDS: LETROZOLE (*CHEMO) 2.5 MG TABLET PO (08:25)
[2025-08-25] MEDS: DICYCLOMINE HCL 10 MG CAPSULE 20 MG BY MOUTH ×2 (08:25→13:07)
[2025-08-25] MEDS: GABAPENTIN 400 MG CAPSULE 800 MG PO (08:25)
[2025-08-25] MEDS: PANTOPRAZOLE 40 MG TABLET PO (08:25)
[2025-08-25] MEDS: LORATADINE 10 MG TABLET PO (08:25)
[2025-08-25 08:55] VITALS: O2SAT 96
[2025-08-25 12:04] VITALS: BP 136/73; PULSE 78; RESP 18; TEMP 36.4; O2SAT 98
--- NOTE | 2025-08-25 14:02 | P.DS_ITS ---
DS: Admitting Diagnosis Discharge Date 08/25/2025 Admitting Diagnosis N/V DS: Discharge Diagnosis Discharge Diagnosis (1) Intractable nausea and vomiting: Code(s): R11.2 - Nausea with vomiting, unspecified Status: Acute Assessment and Plan: Patient presents to ED with 3 day history of intractable nausea and vomiting with episodes of diarrhea. Likely related to radiation therapy. -treated with dicyclomine, Pepcid, Reglan, Benadryl, Haldol in the ED -nausea has subsided after admitted to floor and has been able to tolerate p.o. fluid intake -continue p.r.n. Zofran -Bentyl for cramping 08/25: -Pt reporting a decrease of her N/V, she is able to keep down food and fluid today. -Will be discharged with ODT Zofran. (2) Pancolitis: Code(s): K52.9 - Noninfective gastroenteritis and colitis, unspecified Status: Acute Assessment and Plan: Patient presents to ED with 3 day history of intractable nausea and vomiting with episodes of diarrhea. CT abdomen pelvis with contrast reveals pancolitis. Likely related to radiation therapy. -stool culture, C diff, and ova parasite exam sent -ciprofloxacin and metronidazole for pancolitis 08/25: -Stool samples pending (3) Breast cancer metastasized to bone: Qualifiers: Laterality: unspecified laterality Qualified Code(s): C50.919 - Malignant neoplasm of unspecified site of unspecified female breast; C79.51 - Secondary malignant neoplasm of bone Code(s): C50.919 - Malignant neoplasm of unspecified site of unspecified female breast; C79.51 - Secondary malignant neoplasm of bone Status: Acute Assessment and Plan: Currently undergoing radiation therapy to pelvis. On hold while inpatient Plan Discharge home with Zofran and education to keep hydrated with onc f/u. DS: Summary Hospital Course Reason for hospitalization: N/V Hospital Course: 75-year-old female with past medical history of cervical cancer s/p radiation and chemotherapy, hypothyroidism, DVT, right-sided breast cancer s/p right mastectomy now metastatic to bone presented to the ED on 08/24/2025 with complaints of nausea, vomiting, diarrhea. Symptoms initially started on 08/21. Patient started palliative radiation for pelvic metastasis on 08/12 for a cumulative dose of 3000 cGy in 10 fractions, her last treatment was on 08/20. Oncology note dated 08/19 noted patient had vomited twice during radiation treatments. In the ED patient was found to be afebrile with vital signs in normal limits. Labs revealed stable macrocytic anemia, normal renal function, and chronically elevated liver enzymes. No leukocytosis. UA reveals no bacteria but has a significant amount of wbc's. EKG normal sinus rhythm CT abdomen pelvis with contrast reveals pancolitis While inpt, labs and VS remained stable. Pt was treated for pancolitis with ciprofloxacin & metronidazole while inpt. Stool culture, C diff, ova parasite exam, and UC sent and were pending as discharge. Pt was positive for Klebsiella aerogenes in her urine on 07/15/2025 so ciprofloxacin was appropriate coverage for this empirically. Pt appetite almost back to baseline, she was able to hold food and fluid down, she was discahrged with Zofran ODT and an onc f/u. Status at Discharge Overall status at discharge: patient is progressing back to baseline Time Spent with Patient Time attestation: Total time spent providing and/or coordinating discharge services: 35 Exam Narrative: GENERAL: non-toxic appearing, but appears uncomfortable. HEAD: Normocephalic, atraumatic. EYES: PERRLA. Conjunctivae clear. NOSE: Normal no drainage. THROAT: Pharynx clear, no exudate. NECK: Trachea midline. No adenopathy, no masses. RESPIRATORY: Airway patent, respirations nonlabored. CTA. CARDIOVASCULAR: Regular rate and rhythm. BREASTS: Right mastectomy GASTROINTESTINAL: Abdomen is soft and nontender. No organomegaly. Bowel sounds normal in all quadrants. GENITOURINARY: Defer MUSCULOSKELETAL: Moves all extremities. No gross deformities. No calf tenderness. SKIN: Warm, dry, normal color. NEURO: A&O X4. Speech clear PSYCHIATRIC: Withdrawn DS: Data Data Completed and Pending Completed studies during hospitalization: Labs, urine, A/P CT Pending studies at discharge: Ova + parasite stool Labs on day of discharge: Labs from last 24 hours 08/25/25 04:56 PT 40.3 H INR 4.5 Discharge Plan Discharge Attending physician on discharge: Hu Christy Consulting providers: Amy Francisco; Padmini Chatman; Fabrizio Contreras; Herb Lundberg Discharging Clinician: Amy Francisco Anticipated Discharge Date/Time: 08/25/25 16:00 Patient Disposition: Home Activity: may shower Diet: regular Discharge Instructions: 1. Take Zofran under the tongue as needed for nausea. I have sent a prescription of this to your pharmacy. 2. If any of your stool cultures come back positive for infection, we will let you know by phone and send you treatment as needed, this test usually takes at least 3 days to result. If you do not hear back from us, you can start to take loperamide (Imodium) over the counter. 3. You have been taking antibiotics here in the hospital for the colitis (colon inflammation, likely caused by your radiation) and we will have you continue those at home, this may be contributing to your nausea, vomiting, and/or diarrhea as well. These antibiotics will be sent to your pharmacy (metronidazole and ciprofloxacin). Continue to check your blood pressure and blood sugar at home if applicable. Keep your scheduled appts with your primary care provider and any specialist that you may see. Return to the emergency department if you develop sudden shortness of breath, chest pain, a fever of greater than 101.5, or nausea, vomiting, abd pain, or diarrhea that does not go away. Follow-up with your primary care provider within 1-2 weeks, they will want to be updated on your inpatient stay in the hospital. Thank you for [facility] for your healthcare needs. Patient Instructions: Antibiotic Form, Ciprofloxacin (By mouth), Warfarin (By mouth), Metronidazole (By mouth), Acute Nausea and Vomiting (DC), Colitis (ED) Patient Language: Occitan Stand Alone Forms: General Discharge Information Follow-up/Referrals: Ankit Villafuerte DO [Primary Care Provider, Internal Medicine] - 2 Weeks Discharge Medications: New ondansetron 4 mg tablet,disintegrating 4 mg PO Q6H PRN (Reason: nausea and vomiting) Qty: 60 0RF Continued ferrous sulfate [Feosol] 325 mg (65 mg iron) tablet 325 mg PO DAILY vitamin [id number] acid 1,000-400 mcg tablet, sublingual 1 tablet sublingual DAILY gabapentin 800 mg tablet 800 mg PO BID loratadine [Claritin] 10 mg tablet 10 mg PO DAILY budesonide 0.5 mg/2 mL suspension for nebulization 0.5 mg inhalation DAILY Qty: 60 5RF Rx Instructions: rinse and spit ipratropium bromide 0.02 % solution 2.5 ml inhalation Q6H PRN (Reason: shortness of breath or wheezing) Qty: 300 5RF ascorbic acid (vitamin C) 1,000 mg capsule 1 g PO DAILY geriatric multivitamin-min Tablet 1 tablet PO DAILY calcium 600 mg capsule 600 mg PO DAILY guaifenesin [Mucinex] 1,200 mg tablet extended release 12hr 1,200 mg PO BID warfarin 2 mg tablet See Rx Instructions .ROUTE .COMPLEX Protocol: Dose Management Condition: Saturday Dose/Route: 4.5 mg Instruction: 4.5 x 1 mg tablets Condition: Saturday Dose/Route: 4.5 mg Instruction: 4.5 x 1 mg tablets Condition: Saturday Dose/Route: 4.5 mg Instruction: 4.5 x 1 mg tablets Condition: Saturday Dose/Route: 4.5 mg Instruction: 4.5 x 1 mg tablets Condition: Dose/Route: 4.5 mg Instruction: 4.5 x 1 mg tablets Condition: Saturday Dose/Route: 4.5 mg Instruction: 4.5 x 1 mg tablets Condition: Saturday Dose/Route: 4.5 mg Instruction: 4.5 x 1 mg tablets Protocol Text: Adjustment Start Date: 09/12/23 INR Value: 2.0 INR Date: 09/12/23 Recheck Date: 09/26/23 Rx Instructions: TAKE 2 TABLETS (4 MG) ORALLY AT HS dicyclomine 20 mg tablet See Rx Instructions .ROUTE .COMPLEX Qty: 270 1RF Dose Instruction: TAKE 1 TABLET BY MOUTH THREE TIMES A DAY Rx Instructions: TAKE 1 TABLET BY MOUTH THREE TIMES A DAY levothyroxine 75 mcg tablet 75 mcg PO QAM Qty: 90 2RF atenolol 25 mg tablet 25 mg PO QHS Qty: 30 6RF No Action albuterol sulfate 0.63 mg/3 mL solution for nebulization See Rx Instructions .ROUTE .COMPLEX Qty: 75 2RF Dose Instruction: 0.63 MG (3 ML) INHALED TWICE A DAY NEEDED FOR SHORTNESS OF BREATH OR WHEEZING Rx Instructions: 0.63 MG (3 ML) INHALED TWICE A DAY NEEDED FOR SHORTNESS OF BREATH OR WHEEZING Date of admission: 08/24/25 15:33 Primary Care Provider: Ankit Villafuerte Admitting Provider: Hu Christy Attending physician on admission: Hu Christy Condition: Stable Quality VTE Prophylaxis VTE prophylaxis: pharmacologic ordered Hospitalist MIPS Heart Failure (Exclusion) Patient has history of Heart Transplant or Left Ventricular Assistive Device?: No IF YES, STOP HERE Heart Failure (Qualifier) Patient has current or prior documentation of LVEF less than or equal to 40%, or mod/servere depressed LVSF?: No IF NO, STOP HERE
[2025-08-25 16:52] LABS: Toxigenic C. Diff NEGATIVE (NEGATIVE)
== END 2025-08-25 16:30 | disposition home or self-care (01) ==
LOC: ANHED 11:31 → ANH2MED 15:56
PROVIDERS: Nurse Practitioner Adult Health; Admitting Provider Family Medicine; Emergency Provider Student in an Organized Health Care Education/Training Program; PCP Internal Medicine; Visit Provider Family Medicine
DX: K52.9 Noninfective gastroenteritis and colitis, unspecified (principal); D53.9 Nutritional anemia, unspecified; R74.01 Elevation of levels of liver transaminase levels; R82.90 Unspecified abnormal findings in urine; E86.0 Dehydration; I45.10 Unspecified right bundle-branch block; E03.9 Hypothyroidism, unspecified; G25.81 Restless legs syndrome; M81.8 Other osteoporosis without current pathological fracture; C50.911 Malignant neoplasm of unspecified site of right female breast; C79.51 Secondary malignant neoplasm of bone; Z92.3 Personal history of irradiation; Z79.811 Long term (current) use of aromatase inhibitors; Z79.01 Long term (current) use of anticoagulants; Z90.11 Acquired absence of right breast and nipple; Z17.0 Estrogen receptor positive status [ER+]; Z17.21 Progesterone receptor positive status; Z17.421 Hormone receptor negative with human epidermal growth factor receptor 2 negative status; Z92.21 Personal history of antineoplastic chemotherapy; Z85.41 Personal history of malignant neoplasm of cervix uteri; Z87.19 Personal history of other diseases of the digestive system; Z86.718 Personal history of other venous thrombosis and embolism; Z87.81 Personal history of (healed) traumatic fracture
CPT/HCPCS: 36415; 74177; 80053; 81001; 83690; 85025; 85610; 87045; 87046; 87077; 87086; 87186; 87427; 87493; 93005; 94640; 96361; 96374; 96375; 99285; A9270; G0378; J1200; J1630; J2405; J2765; J7030; Q9967

== ENCOUNTER 2025-09-30 14:42 | Inpatient (IN) | payer MEDICARE, SELFPAY ==
[2025-09-30] VITALS (19 sets, daily range): BP systolic 90–149; BP diastolic 61–85; PULSE 102–126; RESP 15–34; TEMP 36.8–37.8; O2SAT 90–98
--- NOTE | ~2025-09-30 | XR_ITS ---
Examination: XR chest 1V portable Clinical History: crackles in the lungs Comparison: 1 day prior Technique: Portable AP Findings: Heart size normal. Small right pleural effusion poorly seen. Mild bibasilar atelectasis and/or scarring. Bronchiectasis right midlung posttreatment changes. Bony metastases and rib fractures as before. IMPRESSION: 1. No change or acute cardiopulmonary findings. Reviewed, dictated and finalized at location R. GANG SUPERVISOR
--- NOTE | ~2025-09-30 | XR_ITS ---
EXAMINATION: XR chest 2V DATE: 09/30/2025 18:16 INDICATION: Breast cancer. Cough. TECHNIQUE: Frontal and lateral views of the chest were obtained. COMPARISON: CT chest dated 07/15/2025 FINDINGS: Cardiomegaly. Atherosclerotic aorta. Lungs are free of acute processes. Extensive skeletal metastatic lesions of the chest consistent with CT findings. Likely pathological fractures involving lateral right fifth and sixth ribs. IMPRESSION: 1. No acute pulmonary findings. 2. Extensive skeletal metastatic lesions. Fractures of lateral right fifth and sixth ribs, possible pathological fractures. Reviewed, dictated and finalized at location T. GER CLIENT SUPPORT
--- NOTE | ~2025-09-30 | CT_ITS ---
EXAMINATION: CT abdomen and pelvis and chest with contrast: DATE: 09/30/2025 INDICATION: Sepsis. History of breast cancer TECHNIQUE: CT was performed with 100 cc of IV contrast and reviewed in multiple projections. Radiation dose 1250 MG Ycm. COMPARISON: CT dated 08/24/2025 chest x-ray dated 09/30/2025 FINDINGS: No acute pulmonary lesions. Small right-sided pleural effusion. Postoperative changes of right mastectomy. Extensive, predominantly osteoblastic metastatic lesions of the sternum and ribs and thoracic spine are noted in the chest. Fractures of anterior right fifth and sixth ribs are noted. Below the diaphragm, no focal lesions of the liver and spleen. Kidneys do not show obstructive changes. No evidence of small bowel obstruction. Predominantly osteoblastic metastatic lesions of lumbar spine and pelvic bones. IMPRESSION: 1. Postsurgical changes of right mastectomy. Extensive, predominantly osteoblastic metastatic lesions of the skeletal system are seen. Fractures of anterior right fifth and sixth ribs, possible pathological fractures. 2. Small right pleural effusion. 3. No acute findings noted in the abdomen and pelvis. Reviewed, dictated and finalized at location T. ITY CONTROL CLERK IMPRESSION: 1. Postsurgical changes of right mastectomy. Extensive, predominantly osteoblas tic metastatic lesions of the skeletal system are seen. Fractures of anterior r ight fifth and sixth ribs, possible pathological fractures. 2. Small right pleural effusion. 3. No acute findings noted in the abdomen and pelvis.
--- NOTE | ~2025-09-30 | US_ITS ---
EXAMINATION: Right upper extremity venous Doppler study: DATE: 10/05/2025. INDICATION: Right arm edema. TECHNIQUE: High resolution ultrasound compression and augmentation of jugular vein, subclavian, axillary, brachial, basilic, cephalic, radial and ulnar veins were obtained. COMPARISON: None. FINDINGS: Normal color flow in augmentation of the veins of the right upper extremity. No evidence of DVT is noted. IMPRESSION: 1. No evidence of DVT involving the right upper extremity veins. Subcutaneous edema of the upper arm is noted. Reviewed, dictated and finalized at location T. BATIC RIGGER IMPRESSION: 1. No evidence of DVT involving the right upper extremity veins. Subcutaneous e liz of the upper arm is noted.
--- OUTSIDE RECORDS SUMMARY | 2025-09-30 17:40 | XMS_ITS | Clinical Summary ---
Author Organization [facility] Address [address] [place] [address] Care Team Providers Care Pool Hall Inspector Name Role Phone Noy Ankit Stephens DO Primary Care Provider [phone] Allergies No known active allergies Medications cholecalciferol, [...] NEBULIZER DAILY RINSE AND SPIT 5 Active oxyCODONE-acetami nophen (PERCOCET) 5-325 mg tabletIndications :Carcinoma of breast metastatic to bone, unspecified laterality (CMS/HCC) Take 1 Tablet by mouth every 4 hours as needed for Pain. Max Daily Amount: 6 Tablets 120 Tablet 5 Active palbociclib (Ibrance) 125 mg tablet Take 1 Tablet (125 mg) by mouth daily with breakfast for 3 weeks on, 1 week off. Repeat every 28 days 21 Tablet 3 09/28/2025 9:12 AM PALLET REPAIRER 5 Active ondansetron (ZOFRAN ODT) 8 mg Tablet, Rapid DissolveIndicatio ns:Carcinoma of breast metastatic to bone, unspecified laterality (CMS/HCC) Dissolve 1 tablet on top of tongue then swallow with saliva every 8 hours as needed for nausea or vomiting 30 Tablet 1 5 Active megestroL (MEGACE) 400 mg/10 mL (40 mg/mL) suspensionIndicat ions:Carcinoma of breast metastatic to bone, unspecified laterality (CMS/HCC) Take 5 mL (200 mg) by mouth daily. 150 mL 1 5 Active Active Problems Problem Noted Date Diagnosed Date Hypercalcemia 07/16/2025 Breast cancer metastasized to bone 07/16/2025 Confusion 07/16/2025 Generalized muscle weakness 07/16/2025 Osteoporosis due to aromatase inhibitor 10/20/20 Screening for osteoporosis 12/21/2016 Malignant neoplasm of upper- outer quadrant of right female breast 08/27/2016 Cancer Staging:Clinical:Stage IIIB(T4, N0, M0) - Unsigned Acquired hypothyroidism 08/27/2016 Encounters Date Type Department Care Team Description 09/30/2025 Abstract [facility] Oncology and Hematology [facility] [address] [place] [address] Lj Fam MD 09/28/2025 10:00 AM PALLET REPAIRER Office Visit [facility] Oncology and Hematology - [place] [address] [place] [address] Matilda Fuentes MD Malignant neoplasm of upper-outer quadrant of right breast in female, estrogen receptor positive (CMS/HCC) (Primary Dx); Carcinoma of breast metastatic to bone, unspecified laterality (CMS/HCC) 09/28/2025 External Device Data STL ABSTRACTION Provider, Abstract 09/28/2025 Specialty Pharmacy [facility] [address] [place] [phone] Thania Garber, PHARMACIST 09/27/2025 Orders Only [facility] Oncology and Hematology - [place] [address] [place] [address] Lj Fam MD Carcinoma of breast metastatic to bone, unspecified laterality (CMS/HCC) 09/21/2025 External Device Data STL ABSTRACTION Provider, Abstract 09/21/2025 External Device Data STL ABSTRACTION Provider, Abstract 09/21/2025 Orders Only [facility] Oncology and Hematology - [place] [address] [place] [address] Lj Fam MD 09/16/2025 Specialty Pharmacy [facility] [address] [place] [phone] Thania Garber, PHARMACIST 09/13/2025 Orders Only [facility] Oncology and Hematology - [place] [address] [place] [address] Lj Fam MD Carcinoma of breast metastatic to bone, unspecified laterality (CMS/HCC) 09/06/2025 Specialty Pharmacy [facility] [address] [place] [phone] Thania Garber, PHARMACIST 09/03/2025 Specialty Pharmacy [facility] [address] [place] [phone] Thania Garber, PHARMACIST 09/03/2025 Orders Only [facility] Oncology and Hematology - [place] [address] [place] [phone] Lj Fam MD Carcinoma of breast metastatic to bone, unspecified laterality (CMS/HCC) (Primary Dx) 09/02/2025 Orders Only [facility] Oncology and Hematology - [place] [address] [place] [phone] Lj Fam MD Carcinoma of breast metastatic to bone, unspecified laterality (CMS/HCC) (Primary Dx) 09/02/2025 Specialty Pharmacy [facility] [address] [place] [phone] Thania Garber, PHARMACIST 08/31/2025 11:00 AM CDT Office Visit [facility] Oncology and Hematology - [place] [address] [place] [phone] Lj Fam MD Carcinoma of breast metastatic to bone, unspecified laterality (CMS/HCC) (Primary Dx) 08/31/2025 External Device Data STL ABSTRACTION Provider, Abstract 08/30/2025 Orders Only [facility] Oncology and Hematology - [place] [address] [place] [address] Lj Fam MD Carcinoma of breast metastatic to bone, unspecified laterality (CMS/HCC) 08/27/2025 Abstract [facility] Oncology and Hematology - [place] [address] [place] [address] Lj Fam MD 08/26/2025 Refill [facility] Oncology and Hematology - [place] [address] [place] [phone] Lj Fam MD Carcinoma of breast metastatic to bone, unspecified laterality (CMS/HCC) (Primary Dx) 08/25/2025 Orders Only [facility] Oncology and Hematology - [place] [address] [place] [phone] Lj Fam MD 08/23/2025 Specialty Pharmacy [facility] [address] [place] [address] [place] [phone] Cindy Leone, PHARMACIST 08/20/2025 Orders Only [facility] Oncology and Hematology - [place] [address] [place] [address] Lj Fam MD Carcinoma of breast metastatic to bone, unspecified laterality (CMS/HCC) (Primary Dx) 08/17/2025 External Device Data STL ABSTRACTION Provider, Abstract 08/17/2025 External Device Data STL ABSTRACTION Provider, Abstract 08/17/2025 External Device Data STL ABSTRACTION Provider, Abstract 08/11/2025 Specialty Pharmacy [facility] [address] [facility] [place] [address] Cindy Leone, PHARMACIST 08/10/2025 4:30 PM CDT Telephone Check Up [facility] Oncology and Hematology - [place] [address] [place] [address] Lj Fam MD 08/03/2025 Orders Only [facility] Oncology and Hematology - [place] [address] [place] [address] Lj Fam MD 08/02/2025 1:15 PM CDT - 08/02/2025 11:59 PM CDT Hospital Encounter [address] [phone] Lj Fam MD Discharge Disposition: Home or Self Care 08/02/2025 9:09 AM CDT - 08/02/2025 11:59 PM CDT Hospital Encounter [address] [phone] Lj Fam MD Discharge Disposition: Home or Self Care 08/02/2025 Refill [facility] Oncology and Hematology - [place] [address] [place] [address] Lj Fam MD Carcinoma of breast metastatic to bone, unspecified laterality (CMS/HCC) 07/27/2025 3:45 PM CDT Office Visit [facility] Oncology and Hematology - [place] [address] [place] [address] Lj Fam MD Malignant neoplasm [...] - 07/21/2025 3:50 PM CDT Hospital Encounter [facility] [address] [place] [address] Any Krishnan MD Padgett, Sabrina, MD Nuspl, DO Azalea Haque, Devan Palumbo MD Hypercalcemia [...] on file Legal Sex Female 4:26 AM PALLET REPAIRER Gender Identity Not on file Sexual Orientation Not on file Last Filed Vital Signs Vital Sign Reading Time Taken Comments Blood Pressure 119/72 09/28/2025 10:01 AM PALLET REPAIRER Pulse 59 09/28/2025 10:01 AM PALLET REPAIRER Temperature 36.8 C (98.2 F) 09/28/2025 10:01 AM PALLET REPAIRER Respiratory Rate 16 09/28/2025 10:01 AM PALLET REPAIRER Oxygen Saturation 95% 09/28/2025 10:01 AM PALLET REPAIRER Inhaled Oxygen Concentration - - Weight 82.7 kg (182 lb 6.4 oz) 09/28/2025 10:01 AM PALLET REPAIRER Height 172.7 cm (5' 8) 07/16/2025 8:55 AM CDT Body Mass Index 27.73 07/16/2025 8:55 AM CDT Plan of Treatment Upcoming Encounters Date Type Department Care Team (Late st Contact Info) Description 10/15/2025 11:30 AM PALLET REPAIRER Office Visit [facility] Oncology and Hematology [facility] [address] [facility] [address] [place] [address] Lj Fam MD [address] [facility] [address] [place] [address] Health Maintenance Due Date Last Done Comments PNEUMOCOCCAL VACCINE 50+ YEA RS (1 of 2 - PCV) 1969 Traditional Medicare (ACO) A nnual Wellness Visit 1969 ZOSTER VACCINE (1 of 2) 1971 FIT-DNA Q 3 years 1997 FIT/FOBT Q 1 year 1997 Flex Sig/CT Colonography Q 5 years 1997 INFLUENZA VACCINE (#1) 2025 OSTEOPOROSIS SCREENING 07/13/2026 , 07/13/2021, 01/19/2019, Additional history exists BREAST CANCER SCREENING 07/30/2026 07/30/20 25, 07/20/2024, 07/20/2024, Additional history exists RSV VACCINE (60+ or ) (1 - 1-dose 75+ series) 2027 COLORECTAL SCREENING 09/13/2032 09/13/2022 Colorectal Cancer Screening 09/13/2032 DTAP/TDAP/TD VACCINES (3 - T d or Tdap) 09/28/2034 09/28/2024, 04/09/2022 Procedures Procedure Name Priority Date/Time Associated Diagnosis Comments CHG CA 15 3 Routine 09/17/2025 2:22 PM PALLET REPAIRER COMPREHENSIVE METABOLIC PANEL Routine 09/17/2025 2:15 PM PALLET REPAIRER CBC WITH AUTODIFFERENTIAL Routine 09/17/2025 2:08 PM PALLET REPAIRER CBC WITH AUTODIFFERENTIAL Routine 09/03/2025 12:04 PM CDT COMPREHENSIVE METABOLIC PANEL Routine 08/20/2025 12:35 PM CDT [facility]F Routine 08/05/2025 11:07 AM CDT Carcinoma of breast metastatic to bone, unspecified laterality (CMS/HCC) NM BONE SCAN WHOLE BODY Stat 08/02/2025 2:06 PM CDT Malignant neoplasm of upper-outer quadrant of right breast in female, estrogen receptor positive (CMS/HCC) MAMMO SCREENING BILAT Routine 07/30/2025 9:20 AM CDT [facility] DNA AND RNA Routine 07/27/2025 4:49 PM CDT Carcinoma of breast metastatic to bone, unspecified laterality (CMS/HCC) [facility] NORMAL BLOOD Routine 4:49 PM CDT Carcinoma of breast metastatic [...] PM CDT VITAMIN B12 AND FOLATE Routine 1:07 PM CDT LACTATE DEHYDROGENASE Routine 07/17/2025 [...] AM CDT VITAMIN B12 LEVEL Routine 07/16/2025 10:22 AM CDT IRON, TIBC, AND PERCENT SATURATION Routine 07/16/2025 10:22 AM CDT FERRITIN Routine 07/16/2025 10:22 AM CDT C-REACTIVE PROTEIN Routine 07/16/2025 10:22 AM CDT PROCALCITONIN Routine 07/16/2025 10:22 AM CDT PROTIME-INR Routine 07/16/2025 10:22 AM CDT COMPREHENSIVE METABOLIC PANEL Routine 07/16/2025 10:22 AM CDT CBC WITH DIFFERENTIAL Routine 07/16/2025 10:22 AM CDT RT ASSESS AND TREAT Routine 07/16/2025 10:03 AM CDT XR DEXA BONE DENSITY AXIAL 1 OR MORE SITES Routine 07/13/2021 Osteoporosis due to aromatase inhibitor from Last 3 Months or Most Recently Relevant to Health Maintenance Results * CHG CA 15 3 (09/17/2025 2:22 PM PALLET REPAIRER) us Lj Fam MD [facility]G - LABORATORY Final Result * COMPREHENSIVE METABOLIC PANEL (09/17/2025 2:15 PM PALLET REPAIRER) Only the most recent of8 resultswithin the time period is included. Blood us Lj Fam MD CHEMISTRY ORDERABLES Final Resu lt * CBC WITH AUTODIFFERENTIAL (09/17/2025 2:08 PM PALLET REPAIRER) Only the most recent of2 resultswithin the time period is included. Blood us Lj Fam MD HEMATOLOGY ORDERABLES Final Res ult * [facility]F (08/05/2025 11:07 AM CDT) Reason for Study To identify mutations relevant to patient's cancer. 08/05/2025 11:07 AM CDT [facility] Genetic Diseases Assessed Cancer 08/05/2025 11:07 AM CDT [facility] Description of Ranges of DNA Sequences Examined 105 gene liquid biopsy 08/05/2025 11:07 AM CDT [facility] Overall Interpretation positive 08/05/2025 11:07 AM CDT [facility] [email or web address] 08/05/2025 11:07 AM CDT [facility] Comment:[facility] [...] Association: Response Evidence Status: Consensus Evidence ID: ALTAGRACIA KDB Variant: Immu-ja-fdpqnisl Label: FDA Off Label FDA Approved?: Yes On label?: No 08/05/2025 11:07 AM CDT [facility]: Potential Therapy 2 Gene: 795^SEAN^HGNC Variant: p.G1459* Match Type: snvIndel Match Type Description: SEAN p.G1459* Agent: Olaparib Drug Class: PARP Inhibitor Tissue: Prostate Cancer Association: Response Evidence Status: Consensus Evidence ID: ALTAGRACIA KDB Variant: Tcui-zb-ypynpzar Label: FDA Off Label FDA Approved?: Yes On label?: No 08/05/2025 11:07 AM CDT [facility]us: Potential Therapy 3 Gene: 795^SEAN^HGNC Variant: p.W1750* Match Type: snvIndel Match Type Description: SEAN p.W1750* Agent: Olaparib Drug Class: PARP Inhibitor Tissue: Prostate Cancer Association: Response Evidence Status: Consensus Evidence ID: ALTAGRACIA KDB Variant: Xmae-ee-meexazqh Label: FDA Off Label FDA Approved?: Yes On label?: No 08/05/2025 11:07 AM CDT [facility]: Potential Therapy 4 Gene: 1097^BRAF^HGNC Variant: p.G469A Match Type: snvIndel Match Type Description: BRAF p.G469A Agent: Trametinib Drug Class: MEK Inhibitor Tissue: Melanoma Association: Response Evidence Status: Consensus Evidence ID: ALTAGRACIA KDB Variant: Tgzl-fv-tednisfi Label: FDA Off Label FDA Approved?: Yes On label?: No 08/05/2025 11:07 AM CDT [facility] Trial Count 3 08/05/2025 11:07 AM CDT [facility]: Clinical Trial Match 1 Clinical Trial NCT ID: [id number] Clinical Trial Title: A Phase 1/2 Study of Inlexisertib (DCC-3116) in Patients With KAMERON/MAPK Pathway Mutant Solid Tumors Clinical Trial URL: [email or web address] Clinical Phase: Phase 1/Phase 2 Clinical Trial Matches: BRAF p.G469A mutation, KRAS p.G12R mutation Clinical Trial Distance and Location: [address] [place], [place] 08/05/2025 11:07 AM CDT [facility]: Clinical Trial Match 2 Clinical Trial NCT ID: [id number] Clinical Trial Title: Tumor-agnostic Precision Immuno-oncology and Somatic Targeting Rational for You (TAPISTRY) Platform Study Clinical Trial URL: [email or web address] Clinical Phase: Phase 2 Clinical Trial Matches: SEAN p.W1750* mutation, SEAN p.G1459* mutation Clinical Trial Distance and Location: [address] [place], [place] 08/05/2025 11:07 AM CDT [facility]: Clinical Trial Match 3 Clinical Trial NCT ID: [id number] Clinical Trial Title: A Study of Tulmimetostat ORI497 (CPI-0209) in Patients With Advanced Solid Tumors and Lymphomas Clinical Trial URL: [email or web address] Clinical Phase: Phase 1/Phase 2 Clinical Trial Matches: ARID1A p.Q1584* mutation Clinical Trial Distance and Location: [address] [place], [place] 08/05/2025 11:07 AM CDT [facility] Tumor Mutational [place] 8.6 m/MB 08/05/2025 11:07 AM CDT [facility] Microsatellite Instability Note MSI-High not detected 08/05/2025 11:07 AM CDT [facility] Blood specimen (specimen) 07/30/2025 8:22 PM CDT Narrative This result has genomic variants that were not included in this document. us Lj Fam MD MOLECULAR ORDERABLES Final Resu lt [facility] [address], [address] [place] [address], [facility] [address], [address] [place] [address] * NM BONE SCAN WHOLE BODY (08/02/2025 2:06 PM CDT) Anatomical Region Laterality Modality Nuclear Medicine 08/02/2025 2:07 PM CDT Impressions 08/02/2025 2:17 PM CDT IMPRESSION: 1. Numerous foci of increased tracer uptake throughout the axial and appendicular skeleton likely representing widespread osseous metastatic disease. DICTATION LOCATION: Location [address] [place] [address] Narrative 08/02/2025 2:17 PM CDT EXAMINATION: NM BONE [...] ORDERABLES Final Resu lt Performing Organization Address [facility]/ZIP Co de Phone Number [facility] [address], [address] [place] [address], [facility] [address], [address] [place] [address] * PULSE OXIMETRY, WITH EXERCISE (07/21/2025 10:13 AM CDT) Narrative [facility] - 07/21/2025 10:13 AM CDT Kathleen Bunch MANAGER FINE DINING 07/21/2025 10:15 AM OXYGEN WALK STUDY Oxygen [...] The patient ambulated appr. 100ft. [place] call [phone] for any questions about this walk study. Devan Tristan MD PFT ORDERABLES Final Result Performing Organization Address City/[facility]/ZIP Co de Phone Number [facility] [address] [place] [address] * (ABNORMAL) PROTIME-INR (07/21/2025 5:45 AM CDT) Only the most recent of6 resultswithin the time period is included. PROTIME 20.0(H) 12.7 - 15.1 Seconds 07/21/2025 6:43 AM CDT [facility] [employer] [facility] INR 1.7(H) 0.9 - 1.1 07/21/2025 6:43 AM CDT [facility] [employer] [facility] Blood Venipuncture / Unknown 07/21/2025 5:45 AM CDT 07/21/2025 6:21 AM CDT Pending sale to [facility] [employer] [employer] [facility] - 07/21/2025 6:43 AM CDT INR Therapeutic Range: Adult: 2.0 - 3.0 for pulmonary embolism or prophylaxis against venous thrombosis or systemic embolization. 2.0 - 3.0 for patients with tissue heart valves. 2.5 - 3.5 for patients with mechanical heart valves or post TN. Pediatric (12 years and under): 1.5 - 3.0 Although the target range in children is not well established, INR values of 1.5 - 3.0 are recommended for most patients. Higher values have been used in children with prosthetic cardiac valves and hereditary clotting disorders. (<3 days) therapeutic ranges have not been established. us Lindsay Miramontes MD HEMATOLOGY ORDERABLES Final R esult [facility] [employer] [facility]# [id number] [address] [place] [address] * MAGNESIUM LEVEL (07/21/2025 5:45 AM CDT) Only the most recent of5 resultswithin the time period is included. MAGNESIUM 1.7 1.6 - 2.4 mg/dL 07/21/2025 7:56 AM CDT [facility] [employer] [facility] Blood Venipuncture / Unknown 07/21/2025 5:45 AM CDT 07/21/2025 6:21 AM CDT us Jacquelin Dunham Latiaashanti DO CHEMISTRY ORDERABLES Final R esult [facility] LABORATORY SERVICES [facility] JENN# [id number] [address] [place] [address] * CT GUIDED BIOPSY (07/20/2025 4:05 PM CDT) Anatomical Region Laterality Modality Computed Tomogra phy 07/20/2025 3:36 PM CDT Impressions 07/20/2025 4:41 PM CDT Impression: CT-guided right iliac sclerotic bone lesion biopsy. DICTATION LOCATION: Location 1 - [facility] Narrative 07/20/2025 4:[address]-GUIDED [...] lesion biopsy. DICTATION LOCATION: Location 1 - [facility] Dada Khan MD CT ORDERABLES Final Result * PATHOLOGY (07/20/2025 4:05 PM CDT) CASE REPORT Surgical Pathology Report Case: [id number] Authorizing Provider: Ryan Daniels MD Collected: 07/20/2025 04:05 PM Ordering Location: [facility] Received: 07/21/2025 07:28 AM Oncology Pathologist: Chas Valenzuela MD Specimen: Bone, right iliac bone biopsy 4:55 PM CDT [facility] ADDENDUM 2 This addendum is issued to report the results of FISH Analysis HER2 Breast (see hyperlink below for scan of outside report). 4:55 PM [facility] [employer] [facility] Addendum electronically signed by Chas Valenzuela MD on 08/02/2025 at 1655 CDT ADDENDUM 1 A request for [facility] was received on 07/29/[address] Lj Fam. This test was performed on tissue from case [id number]. The case report, slides, and blocks for this case were retrieved from archives. The pathologist reviewed the original pathology report and examined candidate slides. The requested test cannot be performed because the tissue sample required decalcification and is no longer amenable to testing. 4:55 PM [facility] Addendum electronically signed by Best Garza DO on 07/29/2025 at 1430 CDT FINAL DIAGNOSIS Bone, right iliac, biopsy: - Metastatic carcinoma, consistent with breast primary (favor invasive lobular carcinoma) - ER: 7/8 (positive), NE: 0/8 (negative), HER2 IHC: 2+ (equivocal) 4:55 PM [facility] at 0921 CDT DIAGNOSIS COMMENT HER2 FISH testing has been ordered and the results will be reported in an addendum. 4:55 PM [facility] GROSS DESCRIPTION Received in one container [...] decalcified in decal ll at the bench. [facility] 4:55 PM [facility] MICROSCOPIC DESCRIPTION The slides are labeled [id number] and Damien Pulido. Sections show bone trabeculae infiltrated by single epithelioid cells which stain positive for pankeratin, GATA3, and ER by immunohistochemistry . These findings are consistent with metastatic carcinoma of breast origin. Immunohistochemistry for E-cadherin shows reduced to absent expression and p120 shows abnormal cytoplasmic expression, consistent with a lobular phenotype. 5 4:55 PM [facility] CLINICAL INFORMATION Right iliac bone biopsy No Dx found. 75 y.o. female with PMHX of breast cancer with diffuse skeletal osseous sclerotic lesions. 5 4:55 PM [facility] SPECIAL AND IMMUNOPEROXIDASE STAINS This addendum [...] Score = 5 Intensity Score = 2 NE Total Score (immunohistochemistr y) = 0 Proportion Score = 0 Intensity Score = 0 HER2 membrane staining (Antibody Clone 4B5) is scored on a 0 to 3+ scale in accordance to 2023 CAP/ASCO guidelines. Estrogen and progesterone receptor content is assayed in a semiquantitative manner utilizing the ER antibody (Clone SP1) and NE antibody (Clone 1E2). Results are reported as [...] that is complete and intense ER and NE Total Score 0-2 = negative >= 3 = positive ER and NE Proportion Score (% positive cells) 0 = none 1 = > 0 to < 1% 2 = > or = 1% to 10% 3 = > 10% to 33.3% 4 = > 33.3% to 66.7% 5 = > 66.7% ER and NE Intensity Score (average staining intensity) 0 = [...] ER negative cancers. 5 4:55 PM CDT [facility] LABORATORY [facility] COMMENT Special stain, immunohistochemical, and/or in situ hybridization results are interpreted with controls that demonstrate appropriate staining reactions. Note on use of immunohistochemistry reagents and in situ hybridization probes: These tests were developed and their performance characteristics determined by [facility], Department of Laboratory Medicine. It has [...] part or completely in the following laboratories: [facility], CLIA #[id number] [address] [place] [address] [facility], [place] #[id number] [address] [place] [address] [facility], CLIA #[id number] [address] [place] [address] This report was created with the [employer] voice-activated dictation system. Inherent to this system [...] PATHOLOGY/CYTOLOGY ORDERABLES E dited Result - Final [facility] [id number] [address] [place] [address] * CT PELVIS WO CONTRAST (07/19/2025 11:27 [...] for further evaluation. DICTATION LOCATION: Location 4 us Jacquelin Josue DO CT ORDERABLES Final Result * (ABNORMAL) CBC WITHOUT DIFFERENTIAL (07/19/2025 3:29 AM CDT) Only the most recent of2 resultswithin the time period is included. WBC 6.1 4.0 - 9.8 K/uL 07/19/2025 4:09 AM [employer] LABORATORY SERVICES - [facility] RBC 2.86(L) 3.90 - 4.90 M/uL 07/19/2025 4:09 AM CDT [employer] LABORATORY SERVICES [facility] HEMOGLOBIN 9.2(L) 11.8 - 14.8 g/dL 07/19/2025 4:09 AM [employer] LABORATORY SERVICES [facility] HEMATOCRIT 28.7(L) 35.5 - 44.0 % 07/19/2025 4:09 AM [employer] [facility] [facility] MCV 100.3(H) 82.0 - 99.0 fL 07/19/2025 4:09 AM [employer] LABORATORY SERVICES - [facility] MCH 32.2 27.2 - 32.6 pg 07/19/2025 4:09 AM [employer] LABORATORY SERVICES - [facility] MCHC 32.1 31.5 - 35.5 g/dL 07/19/2025 4:09 AM [employer] LABORATORY SERVICES [facility] PLATELETS 184 140 - 350 K/uL 07/19/2025 4:09 AM [employer] LABORATORY SERVICES [facility] MPV 9.7 9.3 - 12.4 fL 07/19/2025 4:09 AM [employer] LABORATORY SERVICES - [facility] RDW 17.9(H) 11.5 - 14.5 % 07/19/2025 4:09 AM [employer] LABORATORY SERVICES [facility] RDW-STDEV 66.1(H) 37.1 - 48.7 fL 07/19/2025 4:09 AM [employer] LABORATORY SERVICES [facility] Blood Venipuncture / Unknown 07/19/2025 3:29 AM CDT 07/19/2025 3:59 AM CDT us Jacquelin Josue DO HEMATOLOGY ORDERABLES Final Result [facility] LABORATORY SERVICES [facility]# [id number] [address] [place] [address] * MRI BRAIN W WO CONTRAST (07/19/2025 [...] brain metastases identified. DICTATION LOCATION: Location 4 Lindsay Miramontes [...] - 99 mg/dL 07/18/2025 12:03 PM CDT [facility] LABORATORY [facility] SPECIMEN SOURCE, GLUCOSE POC Whole Blood 07/18/2025 12:03 PM CDT [facility] LABORATORY [facility] COMMENT, GLU POC Alerted Nurse/BETSY/D r 07/18/2025 12:03 PM CDT [facility] [employer] [facility] Blood, whole 07/18/2025 12:0 3 PM CDT 07/18/2025 1:28 PM CDT Jacquelin Josue DO POINT OF CARE TESTING Final Result [facility] LABORATORY SERVICES [facility] JENN# [id number] [address] [place] [place] [address] * US RENAL AND BLADDER (07/18/2025 9:52 AM CDT) Anatomical Region Laterality Modality Abdomen Ultrasound 07/18/2025 9:53 AM CDT Impressions 07/18/2025 10:37 AM CDT IMPRESSION: Right renal cysts. No acute abnormality. DICTATION LOCATION: Location [address] [place] [address] Narrative 07/18/2025 10:37 AM CDT RENAL ULTRASOUND [...] cysts. No acute abnormality. DICTATION LOCATION: Location [address] [place] [address] us Harshad Lynn NP US ORDERABLES Final [...] disease. DICTATION LOCATION: Location 4 H[address] ORDERABLES Final Result * (ABNORMAL) HEMOGLOBIN AND HEMATOCRIT (07/17/2025 5:39 PM CDT) Pathologist [facility] HEMOGLOBIN 9.3(L) 11.8 - 14.8 g/dL 07/17/2025 6:35 PM CDT [facility] Comment:Significant change f rom prior result, correlate clinically and redraw if necessary. HEMATOCRIT 28.1(L) 35.5 - 44.0 % 07/17/2025 6:35 PM CDT [facility] Blood Venipuncture / Unknown 07/17/2025 5:39 PM CDT 07/17/2025 5:47 PM CDT Jacquelin Josue DO HEMATOLOGY ORDERABLES Final Result [facility]# [id number] 5 [facility] [place] [address] * TRANSFUSE RED BLOOD CELLS (07/17/2025 3:02 PM CDT) Jacquelin Josue DO BLOOD TRANSFUSION ORDERABLES Final Result * FOLATE, SERUM (07/17/2025 1:07 PM CDT) Pathologist [facility] FOLATE, SERUM >20.0 >4.5 ng/mL 07/17/2025 2:26 PM CDT [facility] Blood Venipuncture / Unknown 07/17/2025 1:07 PM CDT 07/17/2025 1:11 PM CDT Moni Mckeon MD CHEMISTRY ORDERABLES Final Resu lt Performing Organization Address [facility]/ZIP Co de Phone Number [facility] CLIA# [id number] [address] [place] [address] * VITAMIN B12 AND FOLATE (07/17/2025 1:07 [...] ORDERABLES Final Resu lt Performing Organization Address [facility] de Phone Number [facility] CLIA# [id number] [address] [place] [address] * (ABNORMAL) LACTATE DEHYDROGENASE (07/17/2025 1:07 PM CDT) LD (LACTATE DEHYDROGENASE) 232(H) 135 - 214 U/L 07/17/2025 2:00 PM CDT [facility] Blood Venipuncture / Unknown 07/17/2025 1:07 PM CDT 07/17/2025 1:11 PM CDT Moni Mckeon MD CHEMISTRY ORDERABLES Final Resu lt Performing Organization Address City/[facility] Co de Phone Number [facility] CLIA# [id number] [address] [place] [address] * VERIFICATION BLOOD GROUP (07/17/2025 9:10 AM CDT) ABO GROUP A 07/17/2025 10:05 AM CDT [facility] LABORATORY SERVICES -- [facility] RH (D) TYPE Positive 07/17/2025 10:05 AM CDT [facility] LABORATORY SERVICES -- [facility] Blood Venipuncture / Unknown 07/17/2025 9:10 AM CDT 07/17/2025 9:16 AM CDT Fredrick Hernandez MD BLOOD BANK ORDERABLES Final Result Performing Organization Address [facility] Co de Phone Number [facility] LABORATORY SERVICES -- [facility]# [id number] [address] [place] [address] * TYPE AND SCREEN (07/17/2025 8:36 AM CDT) Pathologist [facility] ABO GROUP A 07/17/2025 9:43 AM CDT [facility] LABORATORY SERVICES -- [facility] RH (D) TYPE Positive 07/17/2025 9:43 AM CDT [facility] LABORATORY SERVICES -- [facility] ANTIBODY SCREEN Negative 07/17/2025 9:43 AM CDT [facility] LABORATORY SERVICES -- [facility] Blood Venipuncture / Unknown 07/17/2025 8:36 AM CDT 07/17/2025 8:44 AM CDT us Jacquelin Josue DO BLOOD BANK ORDERABLES Edited Result - Final [facility] LABORATORY SERVICES -- [facility]# [id number] [address] [place] [address] * (ABNORMAL) TSH (07/17/2025 8:36 AM CDT) [facility] TSH 14.50(H) 0.27 - 4.20 uIU/mL 07/17/2025 1:46 PM CDT [facility] LABORATORY SERVICES - [facility] Blood Venipuncture / Unknown 07/17/2025 8:36 AM CDT 07/17/2025 8:43 AM CDT Harshad Lynn OIL EXTRACTOR CHEMISTRY ORDERABLES Final Resu lt Performing Organization Address City/[facility]/ZIP Co de Phone Number [facility] LABORATORY SERVICES - [facility] CLIA# [id number] [address] [place] [address] * PREPARE RED BLOOD CELLS (07/17/2025 7:37 AM CDT) Pathologist [facility] COMPONENT TYPE [id number] [facility] LABORATORY SERVICES -- .[facility] COMPONENT IDENTIFICATION [id number] [facility] LABORATORY SERVICES -- .[facility] UNIT ABO A [facility] LABORATORY SERVICES -- .[facility] UNIT RH POS [facility] LABORATORY SERVICES -- .[facility] CROSSMATCH Compatible [facility] LABORATORY SERVICES -- .[facility] COMPONENT STATUS Transfused [facility] LABORATORY SERVICES -- [facility] COMPONENT EXPIRATION DATE/TIME [id number] [facility] LABORATORY SERVICES -- .[facility] COMPONENT CODING SYSTEM 6200 [facility] LABORATORY SERVICES -- .[facility] VOLUME, BLOOD PRODUCT 350 [facility] LABORATORY SERVICES -- [facility] Other, specify 07/17/2025 7: 37 AM CDT Jacquelin Josue DO LAB TRANSFUSION ORDERABLES E dited Result - Final [facility] LABORATORY SERVICES -- [facility] CLIA# [id number] [address] [place] [address] * MANUAL DIFFERENTIAL (07/17/2025 7:03 AM CDT) Pathologist [facility] PLATELET EST. Consistent w Count 07/17/2025 8:16 AM CDT [facility] LABORATORY SERVICES - . [facility] ANISOCYTOSIS 1+ /hpf 07/17/2025 8:16 AM CDT [facility] LABORATORY SERVICES - [facility] MACROCYTES 1+ /hpf 07/17/2025 8:16 AM CDT [facility] LABORATORY SERVICES - [facility] POLYCHROMASIA 1+ /hpf 07/17/2025 8:16 AM T [facility] LABORATORY SERVICES - [facility] Blood Venipuncture / Unknown 07/17/2025 7:03 AM CDT 07/17/2025 7:08 AM CDT Lindsay Miramontes MD HEMATOLOGY ORDERABLES COM Fin al Result [facility] [employer] SERVICES [facility] CLIA# [id number] [address] [facility] [address] [address] * (ABNORMAL) CBC WITH DIFFERENTIAL (07/17/2025 7:03 AM CDT) Only the most recent of2 resultswithin the time period is included. WBC 4.1 4.0 - 9.8 K/uL 07/17/2025 7:35 AM [facility] LABORATORY SERVICES [facility] RBC 1.74(L) 3.90 - 4.90 M/uL 07/17/2025 7:35 AM [facility] LABORATORY [facility] HEMOGLOBIN 5.8(LL) 11.8 - 14.8 g/dL 07/17/2025 7:35 AM [facility] LABORATORY SERVICES [facility] Comment: Verified by repeat analysis. Significant change from prior result, correlate clinically and redraw if necessary. HEMATOCRIT 18.0(L) 35.5 - 44.0 % 07/17/2025 7:35 AM [facility] LABORATORY SERVICES [facility] MCV 103.4(H) 82.0 - 99.0 fL 07/17/2025 7:35 AM [facility] LABORATORY SERVICES [facility] MCH 33.3(H) 27.2 - 32.6 pg 07/17/2025 7:35 AM [facility] LABORATORY SERVICES [facility] MCHC 32.2 31.5 - 35.5 g/dL 07/17/2025 7:35 AM [facility] LABORATORY SERVICES [facility] RDW 17.0(H) 11.5 - 14.5 % 07/17/2025 7:35 AM CDT [employer] LABORATORY SERVICES - [facility] RDW-STDEV 64.0(H) 37.1 - 48.7 fL 07/17/2025 7:35 AM T [employer] LABORATORY SERVICES - [facility] PLATELETS 117(L) 140 - 350 K/uL 07/17/2025 7:35 AM T [employer] LABORATORY SERVICES - [facility] MPV 9.6 9.3 - 12.4 fL 07/17/2025 7:35 AM T [employer] LABORATORY SERVICES - [facility] NEUTROPHILS 84 % 07/17/2025 7:35 AM [employer] LABORATORY SERVICES - [facility] LYMPHOCYTES 8 % 07/17/2025 7:35 AM [employer] LABORATORY SERVICES - [facility] MONOCYTES 5 % 07/17/2025 7:35 AM [employer] LABORATORY SERVICES - [facility] EOSINOPHILS 2 % 07/17/2025 7:35 AM [employer] LABORATORY SERVICES - [facility] BASOPHILS 0 % 07/17/2025 7:35 AM [employer] LABORATORY SERVICES - [facility] IMMATURE GRANULOCYTES 2 % 07/17/2025 7:35 AM [employer] LABORATORY SERVICES - [facility] Comment:IG (Immature Granulo cyte) count includes Metamyelocytes, Myelocytes, and Promyelocytes NEUTROPHIL ABSOLUTE 3.39 1.90 - 7.00 K/uL 07/17/2025 7:35 AM [employer] LABORATORY SERVICES - [facility] LYMPHOCYTE ABSOLUTE 0.31(L) 0.70 - 4.50 K/uL 07/17/2025 7:35 AM [employer] LABORATORY SERVICES [facility] MONOCYTE ABSOLUTE 0.22 0.10 - 1.30 K/uL 07/17/2025 7:35 AM [employer] LABORATORY SERVICES - . [facility] EOSINOPHIL ABSOLUTE 0.08 0.00 - 0.70 K/uL 07/17/2025 7:35 AM [employer] LABORATORY SERVICES - . [facility] BASOPHILS ABSOLUTE 0.00 0.00 - 0.20 K/uL 07/17/2025 7:35 AM [employer] LABORATORY SERVICES - [facility] IMMATURE GRANULOCYTES ABSOLUTE 0.06(H) 0.00 - 0.03 K/uL 07/17/2025 7:35 AM CDT [facility] Blood Venipuncture / Unknown 07/17/2025 7:03 AM CDT 07/17/2025 7:08 AM CDT Lindsay Miramontes MD HEMATOLOGY ORDERABLES Final R esult [facility] CLIA# [id number] [address] [place] [address] * PROCALCITONIN (07/16/2025 10:22 AM CDT) PROCALCITONIN 0.10 <=0.25 ng/mL 07/16/2025 11:15 AM CDT [facility] Blood Venipuncture / Unknown 07/16/2025 10:22 AM CDT 07/16/2025 10:30 AM CDT Narrative [facility] - 07/16/2025 11:15 AM CDT The utility [...] ORDERABLES Final Re sult Performing Organization Address [facility] Co de Phone Number [facility]# [id number] [address] [place] [address] * (ABNORMAL) IRON, TIBC, AND PERCENT SATURATION (07/16/2025 10:22 AM CDT) IRON 68 37 - 145 ug/dL 07/16/2025 2:35 PM CDT [facility] TIBC 231(L) 250 - 450 ug/dL 07/16/2025 2:35 PM CDT [facility] LABORATORY [facility] IRON % SATURATION 29 15 - 50 % 07/16/2025 2:35 PM CDT [facility] LABORATORY [facility] TRANSFERRIN 182(L) 200 - 360 mg/dL 07/16/2025 2:35 PM CDT [facility] Blood Venipuncture / Unknown 07/16/2025 10:22 AM CDT 07/16/2025 10:30 AM CDT Moni Mckeon MD CHEMISTRY ORDERABLES Final Resu lt Performing Organization Address [facility] de Phone Number [facility]# [id number] [address] [place] [address] * (ABNORMAL) C-REACTIVE PROTEIN (07/16/2025 10:22 AM CDT) CRP 53.8(H) <5.0 mg/L 07/16/2025 11:07 AM CDT [facility] Blood Venipuncture / Unknown 07/16/2025 10:22 AM CDT 07/16/2025 10:30 AM CDT Result [facility] Lindsay Miramontes MD CHEMISTRY ORDERABLES Final Re sult Performing Organization Address City/[facility]/ZIP Co de Phone Number [facility]# [id number] [address] [place] [address] * HAPTOGLOBIN (07/16/2025 10:22 AM CDT) HAPTOGLOBIN 154 30 - 200 mg/dL 07/17/2025 12:33 PM CDT [facility] Blood Venipuncture / Unknown 07/16/2025 10:22 AM CDT 07/16/2025 10:30 AM CDT Moni Mckeon MD CHEMISTRY ORDERABLES Final Resu lt Performing Organization Address [facility] Co de Phone Number [facility] [id number] [address] [place] [address] * (ABNORMAL) FERRITIN (07/16/2025 10:22 AM CDT) FERRITIN 493.0(H) 13.0 - 150.0 ng/mL 07/16/2025 2:35 PM CDT [facility] Blood Venipuncture / Unknown 07/16/2025 10:22 AM CDT 07/16/2025 10:30 AM CDT Moni Mckeon MD CHEMISTRY ORDERABLES Final Resu lt Performing Organization Address [facility] Co de Phone Number [facility] [employer] [facility]# [id number] [address] [place] [address] * VITAMIN B12 LEVEL (07/16/2025 10:22 AM CDT) VITAMIN B12 922 232 - 1,245 pg/mL 07/16/2025 2:14 PM CDT [facility] [employer] [facility] Comment:It has been reported that between 5 to 10% of patients with values between 200 and 400 pg/mL may experience neuropsychiatric and hematologic abnormalities due to occult B12 deficiency. Less than 1% of patients with values above 400 pg/mL will have symptoms. Blood Venipuncture / Unknown 07/16/2025 10:22 AM CDT 07/16/2025 10:30 AM CDT us Moni Mckeon MD CHEMISTRY ORDERABLES Final Resu lt [facility]# [id number] [address] [place] [address] * XR DEXA BONE DENSITY AXIAL 1 OR MORE SITES (07/13/2021) Anatomical Region Laterality Modality Other us Lj Fam MD DIAGNOSTIC IMAGING ORDERABLES F inal Result from Last 3 Months or Most Recently Relevant to Health Maintenance Insurance MEDICARE PART A AND B [employer] [facility] MEDICARE PART A AND B [employer] Medicare Part D RX [facility] [employer] Commercial Advance Directives For more information, please contact: [phone] * Full Code (Latest Code Status on File) Date Activated Date Inactivated Comments 07/18/2025 8:34 AM 07/21/2025 6:19 PM Care Teams Pool Hall Inspector Relationship Specialty Start Date End Date Ankit Villafuerte DO [address] [facility] [address] [facility] [address] [place] [phone] PCP - General Internal Medicine 07/30/24
--- OUTSIDE RECORDS SUMMARY | 2025-09-30 17:40 | XMS_ITS | Encounter Summary ---
Author Organization [facility] [employer] [facility] Address [address] [place] [address] Care Team Providers Care Smasher Name Role Phone Ankit Villafuerte Primary Care Provider [phone] Encounter Details Date Type Department Care Team (Late Contact Info) Description 09/27/2025 Orders Only [facility] Oncology and Hematology [facility] [address] [facility] [address] [place] [address] Lj Fam MD [address] [facility] [address] [place] [address] Carcinoma of breast metastatic to bone, unspecified [...] on file Legal Sex Female 4:26 AM TAILER OFF Gender Identity Not on file Sexual Orientation Not on file documented as of this encounter Plan of Treatment Upcoming Encounters Date Type Department Care Team (Late Contact Info) Description 10/15/2025 11:30 AM TAILER OFF Office Visit [facility] Oncology and Hematology [facility] [address] [facility] [address] [place] [address] Lj Fam MD [address] [facility] [address] [place] [address] documented as of this encounter Visit Diagnoses Diagnosis Carcinoma of breast metastatic to bone, unspecified laterality (CMS/HCC) documented in this encounter Care Teams Smasher Relationship Specialty Start Date End Date Ankit Villafuerte DO [address] [facility] [address] [place] [phone] PCP - General Internal Medicine 07/30/24 documented as of this encounter
--- OUTSIDE RECORDS SUMMARY | 2025-09-30 17:40 | XMS_ITS | Encounter Summary ---
Author Organization [facility] Address [address] [place] [address] Care Team Providers Care Beater Engineer Name Role Phone Ankit Villafuerte Primary Care Provider [phone] Encounter Details Date Type Department Care Team (Late Contact Info) Description 09/28/2025 External Device Data [facility] ABSTRACTION Provider, [...] on file Legal Sex Female 4:26 AM MANAGER SPECIAL EVENTS Gender Identity Not on file Sexual Orientation Not on file documented as of this encounter Plan of Treatment Upcoming Encounters Date Type Department Care Team (Late Contact Info) Description 10/15/2025 11:30 AM MANAGER SPECIAL EVENTS Office Visit [facility] Oncology and Hematology - [place] [address] [facility] [address] [place] [address] Lj Fam MD [address] [facility] [address] [place] [address] documented as of this encounter Visit Diagnoses Not on filedocumented in this encounter Care Teams Beater Engineer Relationship Specialty Start Date End Date Ankit Villafuerte DO [address] [facility] 162 [facility] [address] [place] [address] PCP - General Internal Medicine 07/30/24 documented as of this encounter
--- OUTSIDE RECORDS SUMMARY | 2025-09-30 17:40 | XMS_ITS ---
Author Organization [facility] Address [address] [facility] [place] [address] Care Team Providers Care Window Glass Installer Name Role Phone Ankit Villafuerte DO Primary Care Provider Breast Cancer Status:Enrolled (Active) Start date:08/11/2025 Enrollment date:08/11/2025 Current support & services provided:Clinical Management, Refill Management, Benefits and PA Management, Financial Assistance Linked medications:palbociclib (Active) Continued Care and Services Coordination
--- OUTSIDE RECORDS SUMMARY | 2025-09-30 17:40 | XMS_ITS | Encounter Summary ---
Author Organization [facility] [id number] [facility] Address [address] [place] [address] Care Team Providers Care Wireless Technician Name Role Phone Ankit Villafuerte Primary Care Provider [phone] Encounter Details Date Type Department Care Team (Late Contact Info) Description 09/30/2025 Abstract [facility] Oncology and Hematology - Jose [address] [place] [address] Lj Fam MD [address] [facility] [employer] [address] [place] [address] Social History Tobacco Use Types [...] on file Legal Sex Female 4:26 AM DOPE WORKER Gender Identity Not on file Sexual Orientation Not on file documented as of this encounter Plan of Treatment Upcoming Encounters Date Type Department Care Team (Late Contact Info) Description 10/15/2025 11:30 AM DOPE WORKER Office Visit [facility] Oncology and Hematology - Jose [address] [place] [phone] Lj Fam MD [address] [facility] [address] [place] [address] documented as of this encounter Visit Diagnoses Not on filedocumented in this encounter Care Teams Wireless Technician Relationship Specialty Start Date End Date Ankit Villafuerte DO [address] [facility] [address] [place] [address] PCP - General Internal Medicine 07/30/24 documented as of this encounter
--- OUTSIDE RECORDS SUMMARY | 2025-09-30 17:40 | XMS_ITS ---
Author Organization [facility] Address [address] [place] [address] [place] [address] Care Team Providers Care Supervisor Bottle House Cleaners Name Role Phone Ankit Villafuerte Primary Care Provider [phone] Active Problems Problem Noted Date Diagnosed Date [...]
--- OUTSIDE RECORDS SUMMARY | 2025-09-30 17:40 | XMS_ITS | Encounter Summary ---
Author Organization [facility] Address [address] [place] [address] Care Team Providers Care Gunstock Spray Unit Adjuster Name Role Phone Ankit Villafuerte DO Primary Care Provider [phone] Encounter Details Date Type Department Care Team ([facility] Contact Info) Description 2019 Chart Note Juan Jose L[facility] Radiation Therapy [address] [place] [address] [place] [address] [place] [address] Social History Tobacco Use Types Packs/Day Years Used Date Smoking Tobacco: Never Alcohol Use Standard Drinks/Week Comments Yes 0 (1 standard drink = 0.6 oz pur e alcohol) Comments No Sex and Gender Information Value Date Recorded Sex Assigned at Not on file Legal Sex Female 4:26 AM DIGITAL MARKETING INTERN Gender Identity Not on file Sexual Orientation Not on file documented as of this encounter Plan of Treatment Upcoming Encounters Date Type Department Care Team (Late Contact Info) Description 10/15/2025 11:30 AM DIGITAL MARKETING INTERN Office Visit [facility] Oncology and Hematology - Jose [address] [facility] [address] [place] [address] Lj Fam MD [address] [facility] [address] [place] [address] documented as of this encounter Visit Diagnoses Not on filedocumented in this encounter Care Teams Gunstock Spray Unit Adjuster Relationship Specialty Start Date End Date Ankit Villafuerte DO [address] [facility] [address] [facility] [address] [place] [address] PCP - General Internal Medicine 07/30/24 documented as of this encounter
--- OUTSIDE RECORDS SUMMARY | 2025-09-30 17:40 | XMS_ITS | Data Portability ---
Author Organization [facility] [employer], Main Office Address [address] [place] [address] Care Team Providers Care Automotive Shop Foreman Name Role Phone АНДРЕЙ NICHO Community Development Aide MAINOR RIEVR Primary Care Provider Assessment No assessment recorded. [...] patho logy repor t. Not Available [facility] (Lab) [address] [place], [address], 02/15/2025 12:29:04 11/27/19 25 10/13/2024 CT, sinus es, w/o contr ast No observ ation record ed. [facility] [address], [place], [address], 11/30/2024 08:22:54 11/27/19 25 11/27/2024 CT, sinus es, w/o contr ast No observ ation record ed. [facility] Not Available 2024 13:23:57 Result Notes None recorded. Problems Name Problem SNOMED Code Status Onset Date Resolution Date Notes Provider Name and Address Organization Details Recorded Time Numbness and tingling sensation of skin 970625536583 Active 2017 Not Available [facility] 3 19:46:48 Wears glasses 892509368 Active 2017 Not Available [facility] 3 19:46:48 Malignant neoplasm of breast 629774207 Active 2017 x2 Not Available [facility] 3 19:46:48 Dyspnea 058662168 Active 2017 Not Available [facility] 3 19:46:48 Impairment of balance 801624227 Active 2017 Not Available [facility] 3 19:46:48 Arterioscl erosis of carotid artery 9262935665071 03 Active 2017 Not Available [facility] 3 19:46:48 Seasonal allergy 780095275 Active 2017 Not Available [facility] 3 19:46:48 Staphyloco ccal infectious disease 80452638 Active 2017 on R arm Not Available [facility] 3 19:46:48 Swelling 61315117 Active 2017 Not Available [facility] 3 19:46:48 Neuropathy 864955836 Active 2017 Not Available [facility] 3 19:46:48 Porokerato sis 920964781 Active 2017 Not Available [facility] 3 19:46:48 Chronic maxillary sinusitis 35802675 Active 2024 Nicho Farah MD [address] [place] [address], [facility] [address], [place], [address] , [facility] [employer] [facility] 10:48:33 Chronic ethmoidal sinusitis 15981692 Active 2024 Nicho Farah MD [address] [facility], [facility] [address], [place], [address] , [facility] [employer] [facility] 5 10:48:41 Chronic frontal sinusitis 30979464 Active 2024 Nicho Farah MD [address] [facility], [facility] [address], [place], [address] , [facility] [employer] [facility] 5 10:48:49 Chronic sinusitis 44459899 Active 2024 Shital wilkinson, [facility] [employer] [facility] 10:07:30 Problem Notes None recorded. Procedures Surgical History Date Name Laterality Status Provider Name and Address Organization Details Recorded Time ENDOSCOPY, NASAL/SINUS, WITH FRONTAL SINUS EXPLORATION (SURG) completed Aliyah Lucero RN [facility] [employer] [facility] 02/18/2025 12:24:26 Imaging Results None recorded. [...] Available Not Available Not Available Fluzone High-Dose [id number] (PF) 180 mcg/0.5 mL intramuscul ar syringe [...] Address Organization Details Last Updated DateTime 12/10/2024 98841.05 g 31.6 kg/m2 175.26 cm 98 [degF] Aliyah Lucero RN [facility] [employer] [facility] 12/10/2024 10:30:57 Date Recorded Body height Body temperature Body mass index (BMI) Body weight Provider Name and Address Organization Details Last Updated DateTime 02/18/2025 175.26 cm 97.6 [degF] 30.9 kg/m2 39187.24 g Aliyah Lucero RN [facility] [employer] [facility] 02/18/2025 11:11:58 Social History None recorded. [...] Diagnosis SNOMED-CT Code Diagnosis ICD10 Code Diagnosis IMO Codes Diagnosis Note [id number] Nicho Farah MD [facility] [place] [address] [place] [address] 12/10/2024 10:19:01 12/10/2024 12:24:38 Chronic maxillary sinusitis 12072295 J32.0 Chronic et hmoidal sinusitis 72811516 J32.2 Chronic fr ontal sinusitis 62326012 J32.1 [id number] Nicho Faarh MD [facility] [place] [address] [place] [address] 02/18/2025 10:54:30 02/18/2025 11:41:24 Postoperative visit [id number] Z48.89 02/08/2025 postoperat barbara from a bilateral [...] ID Guarantor Name 12/10/2024 1 [employer] (POS) [id number] Charly Pulido [id number] Damien Pulido 02/18/2025 1 [place] Damien Pulido [id number] Damien Pulido 02/18/2025 2 [facility] (MEDICARE SUPPLEMENT) PLAN F Charly Pulido [id number] Damien Pulido Notes Date Note Type Note Provider Name and Address Organization Details Recorded Time 12/10/2024 text/html This patient has a 1 year history of chronic cough. She was evaluated by an plant hr manager who found allergies to trees. A sinus CT demonstrated pansinusitis and left septal deviation. She has been on antibiotics without improvement. Nicho Farah MD [address] [facility], [facility] [address], [place], [address], edo 12/10/2024 10:49:31 02/18/2025 text/html this patient presents to the office for a postoperative visit from a bilateral maxillary antrostomy, ethmoidectomy, and frontal sinus exploration with navigation that was completed on 02/08/2025. She reports use of saline rinses. She has not started blowing her nose at this time. Denies any complaints. MILI Bloom [address] [facility], [facility] [address], [place], [address], edo 02/18/2025 11:40:46 OBGyn Episode No OBEpisode recorded.
--- NOTE | 2025-09-30 17:51 | ED.NAVMDI ---
HPI - Nausea/Vomiting/Diarrhea General Chief complaint: Nausea/Vomiting/Diarrhea <Aliyah Rodriguez PA-C - Last Filed: 09/30/25 18:16> Stated complaint: vomiting, coughing <Aliyah Rodriguez PA-C - Last Filed: 09/30/25 18:16> Time Seen by Provider: 09/30/25 17:54 <Aliyah Rodriguez PA-C - Last Filed: 09/30/25 18:16> Focused HPI: Patient is a 75 y/o female who presents to the ED with c/o N/V, weakness. 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 Oncologist is Dr. Fam. States she has been dealing with intermittent N/V. Required IV infusion of fluids 2 days ago. Reported having nausea and vomiting again this morning. Had difficulty keeping down food/drink. Feels weak and dehydrated. Prompted here for further evaluation. Reports recent dry cough, occasional SOB, wheezing. Denies CP. Denies fevers. Does report intermittent diarrhea, but states she can control this with Imodium. GENERAL: Mildly ill/pale-appearing, well-nourished, and in no acute distress. HEAD: Normocephalic, atraumatic. CHEST: No respiratory distress. Diffuse rhonchi in bases jacquelyn. Scattered expiratory wheezing. No tachypnea HEART: Tachycardic with regular rhythm.? NEURO: ?Alert and oriented x3. Patient screened in triage and initial orders placed.? ?Additional care and disposition to be based upon?diagnostic testing and treatment. <Aliyah Rodriguez PA-C - Last Filed: 09/30/25 18:16> Source: patient <ARNOL Menchaca Last Filed: 09/30/25 18:16> Mode of arrival: ambulatory <ARNOL Menchaca Last Filed: 09/30/25 18:16> Limitations: no limitations <ARNOL Menchaca Last Filed: 09/30/25 18:16> History of Present Illness HPI Narrative: agree with the HPI above <Shawn Morataya MD - Last Filed: 10/01/25 04:22> Related Data Home medications: Home Medications ?Medication ?Instructions ?Recorded ?Confirmed ?Last Taken ?Type gabapentin 800 mg tablet 800 mg PO BID 05/20/23 09/30/25 07/29/25 History loratadine 10 mg tablet (Claritin) 10 mg PO DAILY 11/25/23 09/30/25 07/29/25 History ascorbic acid (vitamin C) 1,000 mg 1 g PO DAILY 03/19/25 09/30/25 07/29/25 History capsule calcium 600 mg capsule 600 mg PO DAILY 03/19/25 09/30/25 07/29/25 History geriatric multivitamin-min 1 tablet PO DAILY 03/19/25 09/30/25 07/29/25 History guaifenesin 1,200 mg tablet, 1,200 mg PO BID 03/30/25 09/30/25 07/29/25 History extended release 12 hr (Mucinex) warfarin 2 mg tablet See Rx Instructions .Route .COMPLEX 03/30/25 09/30/25 07/29/25 History ferrous sulfate 325 mg (65 mg 325 mg PO DAILY 08/20/25 09/30/25 Unknown History iron) tablet (Feosol) vitamin B12 1,000 mcg-folic acid 1 tablet sublingual DAILY 08/20/25 09/30/25 08/24/25 History 400 mcg sublingual tablet atenolol 25 mg tablet 12.5 mg PO QHS 09/17/25 09/30/25 Unknown History <Aliyah Rodriguez PA-C - Last Filed: 09/30/25 18:16> Allergies/Adverse reactions: Allergies Allergy/AdvReac Type Severity Reaction Status Date / Time No Known Allergies Allergy Verified 10/01/25 04:09 <Aliyah Rodriguez PA-C - Last Filed: 09/30/25 18:16> Review of Systems Review of Systems: as reviewed above in HPI <Shawn Morataya MD - Last Filed: 10/01/25 04:22> [facility] Past Medical History Medical History: Medical History (Updated 10/01/25 @ 04:22 by Shawn Morataya MD) History of radiation therapy Bone cancer hip Intractable nausea and vomiting Restless leg syndrome Chronic anticoagulation Superior vena cava thrombosis Cervical cancer status post radiation and chemotherapy Degenerative joint disease Chronic obstructive pulmonary disease suspected though no formal diagnosis per patient report Allergies Exocrine pancreatic insufficiency Osteoporosis due to aromatase inhibitor Hypothyroidism, unspecified 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 status post mastectomy and neoadjuvant chemotherapy, radiation, and hormone therapy <Aliyah Rodriguez PA-C - Last Filed: 09/30/25 18:16> Surgical History Surgical History: Surgical History H/O total hysterectomy History of open reduction and internal fixation (ORIF) procedure repair right wrist fracture History of arthroscopy of both knees History of cholecystectomy History of appendectomy History of right mastectomy (11/2016) <ARNOL Menchaca Last Filed: 09/30/25 18:16> Family History Family History: Family History Father Family history of diabetes mellitus in first degree relative Family history of congestive heart failure Mother Family history of malignant neoplasm of breast in first degree relative Other Family history of malignant neoplasm <ARNOL Menchaca Last Filed: 09/30/25 18:16> Social History Social History: Social History (Updated 10/01/25 @ 03:44 by Kinjal Boyd APRN) Social History: 2 children Surrogate medical decision maker: Charly Pulido, spouse. Code status: FULL CODE. Smoking status: Never smoker Second hand tobacco smoke exposure: No Alcohol intake: never Alcohol use details: Social alcohol use in the past, non since 2013. Substance use: never Substance use type: does not use Do You Feel Safe in your Home?: Yes Lack of Transportation: No Lack of Food: Never True Current Housing: I Have Housing Concerned About Future Housing: No Difficulty Paying Gas/Electric Bills: No Difficulty Paying for Meds: No Currently Unemployed: No Education: Associate Degree Difficulty w/ Childcare or Family Care: No Living arrangements: with family Additional living arrangements comments: HUSB Spiritual care concerns: No <ARNOL Menchaca Last Filed: 09/30/25 18:16> Exam Narrative: GENERAL: ill-appearing and coughing frequently. Not any apparent distress but is requiring oxygen. HEAD: [Normocephalic, atraumatic.] EYES: [PERRLA and EOMI.] ENT: Nares clear, no rhinorrhea or epistaxis. Mucous membranes moist. NECK: Supple. CHEST: Coarse bibasilar breath sounds with rhonchi. Scattered wheezing. Mild tachypnea. HEART: Tachycardic rate, regular rhythm. Warm extremities with good pulses. ABDOMEN: [Soft, nondistended], [nontender], [No rigidity or guarding] EXTREMITIES: Normal range of motion. [No edema.] SKIN: Warm, dry, no rash. NEURO: [No focal deficits]. Alert and oriented [x3.] PSYCH: [Normal mood and affect.] <Shawn Morataya MD - Last Filed: 10/01/25 04:22> Course Vital Signs Vital signs: Vital Signs Temperature 36.8 C 09/30/25 14:46 Pulse Rate 115 H 09/30/25 14:46 Respiratory Rate 20 09/30/25 14:46 Blood Pressure 90/61 L 09/30/25 14:46 Pulse Oximetry 94 09/30/25 14:46 Oxygen Delivery Room Air 09/30/25 14:46 Temperature 36.9 C 10/01/25 04:03 Pulse Rate 114 H 10/01/25 04:03 Respiratory Rate 20 10/01/25 04:03 Blood Pressure 116/64 10/01/25 04:03 Pulse Oximetry 97 10/01/25 04:03 Oxygen Delivery Nasal Cannula 10/01/25 00:40 Oxygen Flow Rate 3 10/01/25 00:40 <Aliyah Rodriguez PA-C - Last Filed: 09/30/25 18:16> Vital Signs Temperature 36.8 C 09/30/25 14:46 Pulse Rate 115 H 09/30/25 14:46 Respiratory Rate 20 09/30/25 14:46 Blood Pressure 90/61 L 09/30/25 14:46 Pulse Oximetry 94 09/30/25 14:46 Oxygen Delivery Room Air 09/30/25 14:46 Temperature 36.9 C 10/01/25 04:03 Pulse Rate 114 H 10/01/25 04:03 Respiratory Rate 20 10/01/25 04:03 Blood Pressure 116/64 10/01/25 04:03 Pulse Oximetry 97 10/01/25 04:03 Oxygen Delivery Nasal Cannula 10/01/25 00:40 Oxygen Flow Rate 3 10/01/25 00:40 <Shawn Morataya MD - Last Filed: 10/01/25 04:22> MDM - Nausea/Vomiting/Diarrhea MDM Narrative Medical decision making narrative: MSE by BETSY in triage. <Aliyah Rodriguez PA-C - Last Filed: 09/30/25 18:16> MSE by BETSY in triage. 75 y/o female who presents to the ED with c/o N/V, weakness. 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 Oncologist is Dr. Fam. States she has been dealing with intermittent N/V. Required IV infusion of fluids 2 days ago. Reported having nausea and vomiting again this morning. Had difficulty keeping down food/drink. Feels weak and dehydrated. Prompted here for further evaluation. Reports recent dry cough, occasional SOB, wheezing. Denies CP. Denies fevers. Does report intermittent diarrhea, but states she can control this with Imodium. Patient is ill-appearing tachycardic hypotensive and febrile here with some mild tachypnea. Suspect possibility of febrile neutropenia verses pneumonia versus bloodstream infection versus UTI versus intra-abdominal infection given that she has had some intermittent vomiting and diarrhea. most recent oral chemotherapy was last Saturday. Sees Dr. Fam and radiation oncologist here at [facility]. Septic bundle initiated this time. Blood work obtained. Isolation ordered. COVID flu RSV swabs obtained. CT of the chest abdomen pelvis ordered. She was given a 30 cc/kg bolus of fluid for sepsis. Vancomycin cefepime empirically started. Placed on awake overnight monitor and re-evaluated frequently. Will require admission to the hospital upon completion of workup and further treatment. Patient had improvement in vital signs after fluid resuscitation. Blood pressure holding in the 110-20 range. Saturating 97% at this time. Laboratory studies show neutropenia. No significant anemia worse than baseline. Mild thrombocytopenia. Electrolytes are unremarkable. CT scan shows no definitive source of infection or acute process. Patient does have a frequent cough still could be upper respiratory or viral in nature. Bacteremia with immunocompromised state some blood cultures were sent. Lactic acid is negative. Spoke to the hospitalist who accepted the patient to the IMU at this time for continued care for acute neutropenic fever and sepsis. <Shawn Morataya MD - Last Filed: 10/01/25 04:22> Medical Records Attestation: I reviewed the patient's medical records. <Shawn Morataya MD - Last Filed: 10/01/25 04:22> Lab Data Attestation: I reviewed the patient's lab results. <Shawn Morataya MD - Last Filed: 10/01/25 04:22> Result diagrams: 09/30/25 18:10 09/30/25 18:10 <Aliyah Rodriguez PA-C - Last Filed: 09/30/25 18:16> Labs: Lab Results 09/30/25 09/30/25 09/30/25 Range/Units 18:10 18:10 18:10 WBC 1.2 L* (4.5-10.0) K/mm3 RBC 2.73 L (4.2-5.4) M/mm3 Hgb 9.6 L (12.0-15.0) g/dL Hct 29.3 L (37.0-47.0) % MCV 107.3 H (80-100) fl MCH 35.2 H (26-34) pg MCHC 32.8 (32-36) g/dl RDW 22.2 H (11.5-14.5) % Plt Count 116 L (150-375) k/mm3 MPV 10.7 H (7.4-10.4) fl Immature Gran % (Auto) Not Reportable Neut % (Auto) Not Reportable Lymph % (Auto) Not Reportable [place] % (Auto) Not Reportable Eos % (Auto) Not Reportable Baso % (Auto) Not Reportable Lymph # (Auto) Not Reportable [place] # (Auto) Not Reportable Eos # (Auto) Not Reportable Baso # (Auto) Not Reportable Abs Immat Gran (auto) Not Reportable Absolute Neuts (auto) Not Reportable Absolute Nucleated RBC Not Reportable Total Counted 100 Neutrophils % (Manual) 41 L (46-73) % Band Neutrophils % 18 H (0-6) % Lymphocytes % (Manual) 19 (18-44) % Monocytes % (Manual) 19 H (3-9) % Basophils % (Manual) 2 H (0-1) % Metamyelocytes % 1 % Nucleated RBC % Not Reportable Abs Neuts (Manual) 0.70 L (1.3-6.7) K/mm3 Abs Lymphs (Manual) 0.22 L (1.1-4.5) K/mm3 Abs Monocytes (Manual) 0.22 (0.1-0.90) K/mm3 Abs Basophils (Manual) 0.02 (0.0-0.1) K/mm3 Nucleated RBCs 11 % Smudge Cells Few Platelet Estimate Decreased (Adequate) % Immature Plt Fraction 6.1 (0.9-11.2) % Polychromasia Occasional Hypochromasia 1+ Anisocytosis 1+ Macrocytosis Occasional (NORMAL) Schistocytes None seen PT 42.8 H (11.1-14.7) Seconds INR 4.7 APTT 72.9 H (22.3-36.8) Seconds Sodium 133 L (137-145) mmol/L Potassium 4.2 (3.4-5.0) mmol/L Chloride 103 (98-107) mmol/L Carbon Dioxide 22 (22-30) mmol/L Anion Gap 8 (4-12) mmol/L BUN 13 D (7-17) mg/dL Creatinine 0.83 (0.7-1.0) mg/dL Estim Creat Clear Calc 53 ml/min Estimated GFR > 60 (59 - ) Glucose 111 H (65-110) mg/dL Lactic Acid 1.9 (0.7-2.0) mmol/L Calcium 8.5 (8.4-10.2) mg/dL Magnesium 1.6 Cancelled (1.6-2.3) mg/dL Total Bilirubin 1.2 (0.2-1.3) mg/dL AST 67 H (14-36) U/L ALT 41 H (6-35) U/L Alkaline Phosphatase 178 H (38-126) U/L Troponin I < 0.012 Cancelled (0.000-0.034) ng/mL Total Protein 7.5 (6.3-8.2) g/dL Albumin 4.2 (3.5-5.1) g/dL Lipase 14 L (23-300) U/L Influenza A (RT-PCR) Negative (Negative) Influenza B (RT-PCR) Negative (Negative) RSV (RT-PCR) Negative (Negative) SARS-CoV-2 RNA (RT-PCR) Negative (Negative) <Aliyah Rodriguez PA-C - Last Filed: 09/30/25 18:16> Lab Results 09/30/25 09/30/25 09/30/25 Range/Units 18:10 18:10 18:10 WBC 1.2 L* (4.5-10.0) K/mm3 RBC 2.73 L (4.2-5.4) M/mm3 Hgb 9.6 L (12.0-15.0) g/dL Hct 29.3 L (37.0-47.0) % MCV 107.3 H (80-100) fl MCH 35.2 H (26-34) pg MCHC 32.8 (32-36) g/dl RDW 22.2 H (11.5-14.5) % Plt Count 116 L (150-375) k/mm3 MPV 10.7 H (7.4-10.4) fl Immature Gran % (Auto) Not Reportable Neut % (Auto) Not Reportable Lymph % (Auto) Not Reportable [place] % (Auto) Not Reportable Eos % (Auto) Not Reportable Baso % (Auto) Not Reportable Lymph # (Auto) Not Reportable [place] # (Auto) Not Reportable Eos # (Auto) Not Reportable Baso # (Auto) Not Reportable Abs Immat Gran (auto) Not Reportable Absolute Neuts (auto) Not Reportable Absolute Nucleated RBC Not Reportable Total Counted 100 Neutrophils % (Manual) 41 L (46-73) % Band Neutrophils % 18 H (0-6) % Lymphocytes % (Manual) 19 (18-44) % Monocytes % (Manual) 19 H (3-9) % Basophils % (Manual) 2 H (0-1) % Metamyelocytes % 1 % Nucleated RBC % Not Reportable Abs Neuts (Manual) 0.70 L (1.3-6.7) K/mm3 Abs Lymphs (Manual) 0.22 L (1.1-4.5) K/mm3 Abs Monocytes (Manual) 0.22 (0.1-0.90) K/mm3 Abs Basophils (Manual) 0.02 (0.0-0.1) K/mm3 Nucleated RBCs 11 % Smudge Cells Few Platelet Estimate Decreased (Adequate) % Immature Plt Fraction 6.1 (0.9-11.2) % Polychromasia Occasional Hypochromasia 1+ Anisocytosis 1+ Macrocytosis Occasional (NORMAL) Schistocytes None seen PT 42.8 H (11.1-14.7) Seconds INR 4.7 APTT 72.9 H (22.3-36.8) Seconds Sodium 133 L (137-145) mmol/L Potassium 4.2 (3.4-5.0) mmol/L Chloride 103 (98-107) mmol/L Carbon Dioxide 22 (22-30) mmol/L Anion Gap 8 (4-12) mmol/L BUN 13 D (7-17) mg/dL Creatinine 0.83 (0.7-1.0) mg/dL Estim Creat Clear Calc 53 ml/min Estimated GFR > 60 (59 - ) Glucose 111 H (65-110) mg/dL Lactic Acid 1.9 (0.7-2.0) mmol/L Calcium 8.5 (8.4-10.2) mg/dL Magnesium 1.6 Cancelled (1.6-2.3) mg/dL Total Bilirubin 1.2 (0.2-1.3) mg/dL AST 67 H (14-36) U/L ALT 41 H (6-35) U/L Alkaline Phosphatase 178 H (38-126) U/L Troponin I < 0.012 Cancelled (0.000-0.034) ng/mL Total Protein 7.5 (6.3-8.2) g/dL Albumin 4.2 (3.5-5.1) g/dL Lipase 14 L (23-300) U/L Influenza A (RT-PCR) Negative (Negative) Influenza B (RT-PCR) Negative (Negative) RSV (RT-PCR) Negative (Negative) SARS-CoV-2 RNA (RT-PCR) Negative (Negative) <Shawn Morataya MD - Last Filed: 10/01/25 04:22> Imaging Data Attestation: I personally reviewed and interpreted this imaging study as follows: <Shawn Morataya MD - Last Filed: 10/01/25 04:22> My impression: Impressions Chest X-Ray 09/30/25 18:20 IMPRESSION: 1. No acute pulmonary findings. 2. Extensive skeletal metastatic lesions. Fractures of lateral right fifth and sixth ribs, possible pathological fractures. Chest/Abdomen/Pelvis CT 09/30/25 21:32 IMPRESSION: 1. Postsurgical changes of right mastectomy. Extensive, predominantly osteoblastic metastatic lesions of the skeletal system are seen. Fractures of anterior right fifth and sixth ribs, possible pathological fractures. 2. Small right pleural effusion. 3. No acute findings noted in the abdomen and pelvis. <Shawn Morataya MD - Last Filed: 10/01/25 04:22> Critical Care Time Critical Care Time Critical Care Time: Yes <Shawn Morataya MD - Last Filed: 10/01/25 04:22> Total Critical Care Time: 75 <Shawn Morataya MD - Last Filed: 10/01/25 04:22> Discharge Plan Discharge Clinical Impression: Sepsis, Fever and neutropenia <Aliyah Rodriguez PA-C - Last Filed: 09/30/25 18:16> Patient Disposition: Still a Patient <Aliyah Rodriguez PA-C - Last Filed: 09/30/25 18:16> Condition: Stable <Aliyah Rodriguez PA-C - Last Filed: 09/30/25 18:16>
--- NOTE | 2025-09-30 18:10 | CONSULT_PTH ---
PATIENT: Damien Pulido LOC: [facility] U#:[id number] AGE/SX: 75/F ROOM: 212 RE09/30/[address]: Ayo Jackson MD : 1950 BED: 01 DIS: 10/05/2025 SPEC #: [id number] RECD: 09/30/25 19:11 STATUS: MAGDIEL REVanessa #: [id number] CLARA: 09/30/25 18:[address]: Aliyah Rodriguez DEPT: [facility] Consult RECD BY: Luis Parra MLT, ([facility]) Tissues: A - Peripheral Smear Procedures: Hematology Consult
[2025-09-30 18:21] LABS: Hematocrit 29.3 % (37.0-47.0); Hemoglobin 9.6 g/dL (12.0-15.0); Immature Platelet Fraction Pct 6.1 % (0.9-11.2); Mean Corpuscular HGB Conc 32.8 g/dl (32-36); Mean Corpuscular Hemoglobin 35.2 pg (26-34); Mean Corpuscular Volume 107.3 fl (80-100); Platelet Count Result 116 k/mm3 (150-375); Red Blood Count 2.73 M/mm3 (4.2-5.4)
[2025-09-30 18:31] LABS: INR 4.7; Prothrombin Time 42.8 Seconds (11.1-14.7)
[2025-09-30 18:32] LABS: Partial Thromboplastin Time 72.9 Seconds (22.3-36.8)
[2025-09-30 18:37] LABS: Alanine Aminotransferase 41 U/L (6-35); Albumin Level 4.2 g/dL (3.5-5.1); Alkaline Phosphatase 178 U/L (38-126); Anion Gap 8 mmol/L (4-12); Aspartate Amino Transferase 67 U/L (14-36); Bilirubin,Total 1.2 mg/dL (0.2-1.3); Blood Urea Nitrogen 13 mg/dL (7-17); Calcium 8.5 mg/dL (8.4-10.2); Carbon Dioxide 22 mmol/L (22-30); Chloride 103 mmol/L (98-107); Estimated CRCL calculation 53 ml/min; Estimated Glomerular Filt Rate > 60; Glucose 111 mg/dL (65-110); Lipase 14 U/L (23-300); Magnesium 1.6 mg/dL (1.6-2.3); Potassium 4.2 mmol/L (3.4-5.0); Sodium 133 mmol/L (137-145); Total Protein 7.5 g/dL (6.3-8.2)
[2025-09-30 18:44] LABS: Troponin I < 0.012 ng/mL (0.000-0.034)
[2025-09-30 18:53] LABS: Influenza A QL RT-PCR Negative (Negative); Influenza B QL RT-PCR Negative (Negative); RSV RNA, RT-PCR Negative (Negative); SARS-CoV-2 RNA PCR Negative (Negative)
[2025-09-30 19:05] LABS: White Blood Count 1.2 K/mm3 (4.5-10.0)
[2025-09-30 19:07] LABS: Band Neutrophils Percent 18 % (0-6); Lymphocytes Absolute Manual 0.22 K/mm3 (1.1-4.5); Lymphocytes Percent Manual 19 % (18-44); Monocytes Absolute Manual 0.22 K/mm3 (0.1-0.90); Monocytes Percent Manual 19 % (3-9); Neutrophils Absolute Manual 0.70 K/mm3 (1.3-6.7); Neutrophils Percent Manual 41 % (46-73); Total Cells Counted 100
[2025-09-30 19:08] LABS: Basophils Absolute Manual 0.02 K/mm3 (0.0-0.1); Basophils Percent Manual 2 % (0-1); Metamyelocytes Percent 1 %; Polychromasia Occasional; Smudge Cells FEW
[2025-09-30 19:09] LABS: Anisocytosis 1+; Hypochromasia 1+; Macrocytosis Occasional (NORMAL); Schistocytes None Seen
--- OUTSIDE RECORDS SUMMARY | 2025-09-30 20:58 | XMS_ITS | Clinical Summary ---
Author Organization [facility] Address [address] [place] [address] Care Team Providers Care Counter Server Name Role Phone Noy Ankit Stephens DO Primary Care Provider [phone] Allergies No known active allergies Medications cholecalciferol, [...] days 21 Tablet 3 09/28/2025 9:12 AM CITY SOLICITOR 5 Active ondansetron (ZOFRAN ODT) 8 mg [...] Type Department Care Team Description 09/30/2025 Abstract [facility] On[facility] Hemat[facility] [address] [place] [address] Lj Fam MD 09/28/2025 10:00 AM CITY SOLICITOR Office Visit [facility] Oncology and Hematology - [place] [address] [place] [address] Matilda Fuentes MD Malignant neoplasm of upper-outer quadrant of right breast in female, estrogen receptor positive (CMS/HCC) (Primary Dx); Carcinoma of breast metastatic to bone, unspecified laterality (CMS/HCC) 09/28/2025 External Device Data STL ABSTRACTION Provider, Abstract 09/28/2025 Specialty Pharmacy [facility] [address] [place] [phone] Thania Garber, PHARMACIST 09/27/2025 Orders Only [facility] On[facility] and Hematology - [place] [address] [place] [address] Lj Fam MD Carcinoma of breast metastatic to bone, unspecified laterality (CMS/HCC) 09/21/2025 External Device Data STL ABSTRACTION Provider, Abstract 09/21/2025 External Device Data STL ABSTRACTION Provider, Abstract 09/21/2025 Orders Only [facility] On[facility] and Hematology - [place] [address] [place] [address] Lj Fam MD 09/16/2025 Specialty Pharmacy [facility] [address] [place] [phone] Thania Garber, PHARMACIST 09/13/2025 Orders Only [facility] Oncology and Hematology - [place] [address] [place] [address] Lj Fam MD Carcinoma of breast metastatic to bone, unspecified laterality (CMS/HCC) 09/06/2025 Specialty Pharmacy [facility] [address] [place] [phone] Thania Garber, PHARMACIST 09/03/2025 Specialty Pharmacy [facility] [address] [place] [phone] Thania Garber, PHARMACIST 09/03/2025 Orders Only [facility] On[facility] and Hematology - [place] [address] [place] [phone] Lj Fam MD Carcinoma of breast metastatic to bone, unspecified laterality (CMS/HCC) (Primary Dx) 09/02/2025 Orders Only [facility] Oncology and Hematology - [place] [address] [place] [phone] Lj Fam MD Carcinoma of breast metastatic to bone, unspecified laterality (CMS/HCC) (Primary Dx) 09/02/2025 Specialty Pharmacy [facility] [address] [place] [phone] Thania Garber, PHARMACIST 08/31/2025 11:00 AM CDT Office Visit [facility] Hematology - [place] [address] [place] [phone] Lj Fam MD Carcinoma of breast metastatic to bone, unspecified laterality (CMS/HCC) (Primary Dx) 08/31/2025 External Device Data STL ABSTRACTION Provider, Abstract 08/30/2025 Orders Only [facility] Oncology and Hematology - [place] [address] [place] [address] Lj Fam MD Carcinoma of breast metastatic to bone, unspecified laterality (CMS/HCC) 08/27/2025 Abstract [facility]cology and Hematology - [place] [address] [place] [address] Lj Fam MD 08/26/2025 Refill [facility] Oncology and Hematology - [place] [address] [place] [phone] Lj Fam MD Carcinoma of breast metastatic to bone, unspecified laterality (CMS/HCC) (Primary Dx) 08/25/2025 Orders Only [facility] Oncology and Hematology - [place] [address] [place] [phone] Lj Fam MD 08/23/2025 Specialty Pharmacy [facility] [address] [place] [address] [place] [phone] Cindy Leone, PHARMACIST 08/20/2025 Orders Only [facility] Oncology and Hematology - [place] [address] [place] [address] Lj Fam MD Carcinoma of breast metastatic to bone, unspecified laterality (CMS/HCC) (Primary Dx) 08/17/2025 External Device Data STL ABSTRACTION Provider, Abstract 08/17/2025 External Device Data STL ABSTRACTION Provider, Abstract 08/17/2025 External Device Data STL ABSTRACTION Provider, Abstract 08/11/2025 Specialty Pharmacy [facility] [address] [facility] [place] [address] Cindy Leone, PHARMACIST 08/10/2025 4:30 PM CDT Telephone Check Up [facility] and Hematology - [place] [address] [place] [address] Lj Fam MD 08/03/2025 Orders Only [facility] On[facility] and Hematology - [place] [address] [place] [address] Lj Fam MD 08/02/2025 1:15 PM CDT - 08/02/2025 11:59 PM CDT Hospital Encounter [address] [address] Lj Fma MD Discharge Disposition: Home or Self Care 08/02/2025 9:09 AM CDT - 08/02/2025 11:59 PM CDT Hospital Encounter [address] [phone] Lj Fam MD Discharge Disposition: Home or Self Care 08/02/2025 Refill [facility] Hematology - [place] [address] [place] [address] Lj Fam MD Carcinoma of breast metastatic to bone, unspecified laterality (CMS/HCC) 07/27/2025 3:45 PM CDT Office Visit [facility] Oncology and Hematology - [place] [address] [place] [address] Lj Fam MD Malignant neoplasm [...] - 07/21/2025 3:50 PM CDT Hospital Encounter [facility] [address] [place] [address] Any Krishnan MD Padgett, Sabrina, MD Nuspl, [...] on file Legal Sex Female 4:26 AM CITY SOLICITOR Gender Identity Not on file Sexual Orientation Not on file Last Filed Vital Signs Vital Sign Reading Time Taken Comments Blood Pressure 119/72 09/28/2025 10:01 AM CITY SOLICITOR Pulse 59 09/28/2025 10:01 AM CITY SOLICITOR Temperature 36.8 C (98.2 F) 09/28/2025 10:01 AM CITY SOLICITOR Respiratory Rate 16 09/28/2025 10:01 AM CITY SOLICITOR Oxygen Saturation 95% 09/28/2025 10:01 AM CITY SOLICITOR Inhaled Oxygen Concentration - - Weight 82.7 kg (182 lb 6.4 oz) 09/28/2025 10:01 AM CITY SOLICITOR Height 172.7 cm (5' 8) 07/16/2025 8:55 AM CDT Body Mass Index 27.73 07/16/2025 8:55 AM CDT Plan of Treatment Upcoming Encounters Date Type Department Care Team (Late st Contact Info) Description 10/15/2025 11:30 AM CITY SOLICITOR Office Visit [facility] Oncology and Hematology [facility] [address] [facility] [address] [place] [address] Lj Fam MD [address] [facility] [address] [place] [address] Health Maintenance Due Date Last [...] CA 15 3 Routine 09/17/2025 2:22 PM CITY SOLICITOR COMPREHENSIVE METABOLIC PANEL Routine 09/17/2025 2:15 PM CITY SOLICITOR CBC WITH AUTODIFFERENTIAL Routine 09/17/2025 2:08 PM CITY SOLICITOR CBC WITH AUTODIFFERENTIAL Routine 09/03/2025 12:04 PM [...] CHG CA 15 3 (09/17/2025 2:22 PM CITY SOLICITOR) us Lj Fam MD [facility] - LABORATORY Final Result * COMPREHENSIVE METABOLIC PANEL (09/17/2025 2:15 PM CITY SOLICITOR) Only the most recent of8 resultswithin the time period is included. Blood us Lj Fam MD CHEMISTRY ORDERABLES Final Resu lt * CBC WITH AUTODIFFERENTIAL (09/17/2025 2:08 PM CITY SOLICITOR) Only the most recent of2 resultswithin the [...] AM CDT [facility] [email or web address] 08/05/2025 11:07 AM CDT [facility] Comment:[facility] [...] Status: Consensus Evidence ID: ALTAGRACIA KDB Variant: [id number] Label: FDA Off Label FDA Approved?: Yes On label?: No 08/05/2025 11:07 AM CDT [facility]: Potential Therapy 2 Gene: 795^SEAN^HGNC Variant: p.G1459* Match Type: snvIndel Match Type Description: SEAN p.G1459* Agent: Olaparib Drug Class: PARP Inhibitor Tissue: Prostate Cancer Association: Response Evidence Status: Consensus Evidence ID: ALTAGRACIA KDB Variant: Qbya-mb-dkulbogi Label: FDA Off Label FDA Approved?: Yes On label?: No 08/05/2025 11:07 AM CDT [facility]: Potential Therapy 3 Gene: 795^SEAN^HGNC Variant: p.W1750* Match Type: snvIndel Match Type Description: SEAN p.W1750* Agent: Olaparib Drug Class: PARP Inhibitor Tissue: Prostate Cancer Association: Response Evidence Status: Consensus Evidence ID: ALTAGRACIA KDB Variant: Fqho-pk-opwbzhmx Label: FDA Off Label FDA Approved?: Yes On label?: No 08/05/2025 11:07 AM CDT [facility]: Potential Therapy 4 Gene: 1097^BRAF^HGNC Variant: p.G469A Match Type: snvIndel Match Type Description: BRAF p.G469A Agent: Trametinib Drug Class: MEK Inhibitor Tissue: Melanoma Association: Response Evidence Status: Consensus Evidence ID: ALTAGRACIA KDB Variant: Ovwb-hh-xadaggnu Label: FDA Off Label FDA Approved?: Yes On label?: No 08/05/2025 11:07 AM CDT [facility] Trial Count 3 08/05/2025 11:07 AM CDT [facility]: Clinical Trial Match 1 Clinical Trial NCT ID: [id number] Clinical Trial Title: A Phase 1/2 Study of Inlexisertib (DCC-3116) in Patients With KAMERON/MAPK Pathway Mutant Solid Tumors Clinical Trial URL: [email or web address].gov/[email or web address] Clinical Phase: Phase 1/Phase 2 Clinical Trial Matches: BRAF p.G469A mutation, KRAS p.G12R mutation Clinical Trial Distance and Location: [address] [place], [place] 08/05/2025 11:07 AM CDT [facility]: Clinical Trial Match 2 Clinical Trial NCT ID: [id number] Clinical Trial Title: Tumor-agnostic Precision Immuno-oncology and Somatic Targeting Rational for You (TAPISTRY) Platform Study Clinical Trial URL: [email or web address]://clinicalt rials.gov/ct2/[email or web address] w/[email or web address] Clinical Phase: Phase 2 Clinical Trial Matches: SEAN p.W1750* mutation, SEAN p.G1459* mutation Clinical Trial Distance and Location: [address] [place], [place] 08/05/2025 11:07 AM CDT [facility]: Clinical Trial Match 3 Clinical Trial NCT ID: [id number] Clinical Trial Title: A Study of Tulmimetostat UWN735 (CPI-0209) in Patients With Advanced Solid Tumors and Lymphomas Clinical Trial URL: [email or web address]://clinicalt rials.gov/ct2/lisandro w/[email or web address] Clinical Phase: Phase 1/Phase 2 Clinical Trial Matches: ARID1A p.Q1584* mutation Clinical Trial Distance and Location: [address] [place], [place] 08/05/2025 11:07 AM CDT [facility] Tumor Mutational [place] 8.6 m/MB 08/05/2025 11:07 AM CDT [facility] Microsatellite Instability Note MSI-High not detected 08/05/2025 11:07 AM CDT [facility] Blood specimen (specimen) 07/30/2025 8:22 PM CDT Narrative This result has genomic variants that were not included in this document. us Lj Fam MD MOLECULAR ORDERABLES Final Resu lt [facility] [address], [address] [place] [address], [facility] [address], [address] [place] [address] * NM BONE SCAN WHOLE BODY (08/02/2025 2:06 PM CDT) Anatomical Region Laterality Modality Nuclear Medicine 08/02/2025 2:07 PM CDT Impressions 08/02/2025 2:17 PM CDT IMPRESSION: 1. Numerous foci of increased tracer uptake throughout the axial and appendicular skeleton likely representing widespread osseous metastatic disease. DICTATION LOCATION: Location [address] [place] [address] Narrative 08/02/2025 2:17 PM CDT EXAMINATION: NM [...] ORDERABLES Final Resu lt Performing Organization Address [facility]/ZIP Co de Phone Number [facility] [address] [facility], [address] [place] [address], [facility] [address] [facility], [address] [place] [address] * PULSE OXIMETRY, WITH EXERCISE (07/21/2025 10:13 AM CDT) Narrative [facility] - 07/21/2025 10:13 AM CDT Kathleen Bunch FINANCIAL COACH 07/21/2025 10:15 AM OXYGEN WALK STUDY Oxygen [...] The patient ambulated appr. 100ft. Please call [phone] for any questions about this walk study. Devan Tristan MD PFT ORDERABLES Final Result Performing Organization Address City/[facility]/ZIP Co de Phone Number [facility] [address] [place] [address] * (ABNORMAL) PROTIME-INR (07/21/2025 5:45 AM CDT) Only the most recent of6 resultswithin the time period is included. PROTIME 20.0(H) 12.7 - 15.1 Seconds 07/21/2025 6:43 AM CDT [facility] [employer] [facility] INR 1.7(H) 0.9 - 1.1 07/21/2025 6:43 AM CDT [facility] [employer] [facility] Blood Venipuncture / Unknown 07/21/2025 5:45 AM CDT 07/21/2025 6:21 AM CDT [facility] [employer] [facility] - 07/21/2025 6:43 AM CDT INR Therapeutic Range: Adult: 2.0 - 3.0 for pulmonary embolism or prophylaxis against venous thrombosis or systemic embolization. 2.0 - 3.0 for patients with tissue heart valves. 2.5 - 3.5 for patients with mechanical heart valves or post LA. Pediatric (12 years and under): 1.5 - 3.0 Although the target range in children is not well established, INR values of 1.5 - 3.0 are recommended for most patients. Higher values have been used in children with prosthetic cardiac valves and hereditary clotting disorders. (<3 days) therapeutic ranges have not been established. us Lindsay Miramontes MD HEMATOLOGY ORDERABLES Final R esult [facility] [employer] [facility]# [id number] [address] [place] [address] * MAGNESIUM LEVEL (07/21/2025 5:45 AM CDT) Only the most recent of5 resultswithin the time period is included. MAGNESIUM 1.7 1.6 - 2.4 mg/dL 07/21/2025 7:56 AM CDT [facility] [employer] [facility] Blood Venipuncture / Unknown 07/21/2025 5:45 AM CDT 07/21/2025 6:21 AM CDT us Jacquelin Dunham Latiaashanti DO CHEMISTRY ORDERABLES Final R esult [facility]ORATORY SERVICES [facility] JENN# [id number] [address] [place] [address] * CT GUIDED BIOPSY (07/20/2025 4:05 PM CDT) Anatomical Region Laterality Modality Computed Tomogra phy 07/20/2025 3:36 PM CDT Impressions 07/20/2025 4:41 PM CDT Impression: CT-guided right iliac sclerotic bone lesion biopsy. DICTATION LOCATION: Location 1 - [facility] Narrative 07/20/2025 4:[address]-GUIDED RIGHT [...] biopsy. DICTATION LOCATION: Location 1 - [facility] Dada Khan MD CT ORDERABLES Final Result * PATHOLOGY (07/20/2025 4:05 PM CDT) CASE REPORT Surgical Pathology Report Case: [id number] Authorizing Provider: Ryan Daniels MD Collected: 07/20/2025 04:05 PM Ordering Location: [facility] Received: 07/21/2025 07:28 AM Oncology Pathologist: Chas Valenzuela MD Specimen: Bone, right iliac bone biopsy 4:55 PM CDT [facility] ADDENDUM 2 This addendum is issued to report the results of FISH Analysis HER2 Breast (see hyperlink below for scan of outside report). 4:55 PM [facility] [employer] [facility] Addendum electronically signed by Chas Valenzuela MD on 08/02/2025 at 1655 CDT ADDENDUM 1 A request for [facility] was received on 07/29/[address] Lj Fam. This test was performed on tissue from case [id number]. The case report, slides, and blocks for this case were retrieved from archives. The pathologist reviewed the original pathology report and examined candidate slides. The requested test cannot be performed because the tissue sample required decalcification and is no longer amenable to testing. 4:55 PM [facility] Addendum electronically signed by Best Garza DO on 07/29/2025 at 1430 CDT FINAL DIAGNOSIS Bone, right iliac, biopsy: - Metastatic carcinoma, consistent with breast primary (favor invasive lobular carcinoma) - ER: 7/8 (positive), ID: 0/8 (negative), HER2 IHC: 2+ (equivocal) 4:55 PM [facility] at 0921 CDT DIAGNOSIS COMMENT HER2 FISH testing has been ordered and the results will be reported in an addendum. 4:55 PM [facility] GROSS DESCRIPTION Received in one container [...] decalcified in decal ll at the bench. [facility] 4:55 PM [facility] MICROSCOPIC DESCRIPTION The slides are labeled [id number] and Damien Pulido. Sections show bone trabeculae infiltrated by single epithelioid cells which stain positive for pankeratin, GATA3, and ER by immunohistochemistry . These findings are consistent with metastatic carcinoma of breast origin. Immunohistochemistry for E-cadherin shows reduced to absent expression and p120 shows abnormal cytoplasmic expression, consistent with a lobular phenotype. 5 4:55 PM [facility] CLINICAL INFORMATION Right iliac bone biopsy No Dx found. 75 y.o. female with PMHX of breast cancer with diffuse skeletal osseous sclerotic lesions. 5 4:55 PM [facility] SPECIAL AND IMMUNOPEROXIDASE STAINS This addendum [...] Score = 5 Intensity Score = 2 ID Total Score (immunohistochemistr y) = 0 Proportion Score = 0 Intensity Score = 0 HER2 membrane staining (Antibody Clone 4B5) is scored on a 0 to 3+ scale in accordance to 2023 CAP/ASCO guidelines. Estrogen and progesterone receptor content is assayed in a semiquantitative manner utilizing the ER antibody (Clone SP1) and ID antibody (Clone 1E2). Results are reported as [...] that is complete and intense ER and ID Total Score 0-2 = negative >= 3 = positive ER and ID Proportion Score (% positive cells) 0 = none 1 = > 0 to < 1% 2 = > or = 1% to 10% 3 = > 10% to 33.3% 4 = > 33.3% to 66.7% 5 = > 66.7% ER and ID Intensity Score (average staining intensity) 0 = [...] ER negative cancers. 5 4:55 PM CDT [facility] COMMENT Special stain, immunohistochemical, and/or in situ hybridization results are interpreted with controls that demonstrate appropriate staining reactions. Note on use of immunohistochemistry reagents and in situ hybridization probes: These tests were developed and their performance characteristics determined by [facility], Department of Laboratory Medicine. It has [...] part or completely in the following laboratories: [facility], CLIA #[id number] [address] [place] [address] [facility], [place] #[id number] [address] [place] [address] [facility], CLIA #[id number] [address] [place] [address] This report was created with the [employer] voice-activated dictation system. Inherent to this system is the possibility of syntax, grammar, punctuation and other errors that could impact the interpretation of the report. If there are interpretative questions about aspects of this report, please contact the performing pathologist. 4:55 PM CDT [facility] Tissue ENTIRE BONE ORGAN / Unknown Collection / Unknown 07/20/2025 4:05 PM CDT 07/21/2025 7:28 AM CDT Comment:Right iliac bone bio psy Ryan Daniels MD PATHOLOGY/CYTOLOGY ORDERABLES E dited Result - Final [id number] [address] [place] [address] * CT PELVIS WO CONTRAST (07/19/2025 11:27 [...] 4.0 - 9.8 K/uL 07/19/2025 4:09 AM [employer] LABORATORY SERVICES - [facility] RBC 2.86(L) 3.90 - 4.90 M/uL 07/19/2025 4:09 AM CDT [employer] LABORATORY SERVICES [facility] HEMOGLOBIN 9.2(L) 11.8 - 14.8 g/dL 07/19/2025 4:09 AM [facility] LABORATORY SERVICES [facility] HEMATOCRIT 28.7(L) 35.5 - 44.0 % 07/19/2025 4:09 AM [employer] LABORATORY SERVICES - [facility] MCV 100.3(H) 82.0 - 99.0 fL 07/19/2025 4:09 AM [employer] LABORATORY SERVICES - [facility] MCH 32.2 27.2 - 32.6 pg 07/19/2025 4:09 AM [facility]ORATORY SERVICES - [facility] MCHC 32.1 31.5 - 35.5 g/dL 07/19/2025 4:09 AM [employer] LABORATORY SERVICES [facility] PLATELETS 184 140 - 350 K/uL 07/19/2025 4:09 AM [facility]ORATORY SERVICES [facility] MPV 9.7 9.3 - 12.4 fL 07/19/2025 4:09 AM [facility] - [facility] RDW 17.9(H) 11.5 - 14.5 % 07/19/2025 4:09 AM [facility]ORATORY SERVICES [facility] RDW-STDEV 66.1(H) 37.1 - 48.7 fL 07/19/2025 4:09 AM [facility] SERVICES [facility] Blood Venipuncture / Unknown 07/19/2025 3:29 AM CDT 07/19/2025 3:59 AM CDT us Jacquelin Josue DO HEMATOLOGY ORDERABLES Final Result [facility]# [id number] [address] [place] [address] * MRI BRAIN W WO CONTRAST (07/19/2025 [...] - 99 mg/dL 07/18/2025 12:03 PM CDT [facility] SPECIMEN SOURCE, GLUCOSE POC Whole Blood 07/18/2025 12:03 PM CDT [facility] COMMENT, GLU POC Alerted Nurse/BETSY/D r 07/18/2025 12:03 PM CDT [facility] [employer] [facility] Blood, whole 07/18/2025 12:0 3 PM CDT 07/18/2025 1:28 PM CDT Jacquelin Josue DO POINT OF CARE TESTING Final Result [facility] LABORATORY SERVICES [facility] JENN# [id number] [address] [place] [address] * US RENAL AND BLADDER (07/18/2025 9:52 AM CDT) Anatomical Region Laterality Modality Abdomen Ultrasound 07/18/2025 9:53 AM CDT Impressions 07/18/2025 10:37 AM CDT IMPRESSION: Right renal cysts. No acute abnormality. DICTATION LOCATION: Location [address] [place] [address] Narrative 07/18/2025 10:37 AM CDT RENAL ULTRASOUND [...] cysts. No acute abnormality. DICTATION LOCATION: Location [address] [place] [address] us Harshad Lynn NP US ORDERABLES Final [...] disease. DICTATION LOCATION: Location 4 Harshad Lynn ASSISTANT PROFESSOR OF MATHEMATICS CT ORDERABLES Final Result * (ABNORMAL) HEMOGLOBIN AND HEMATOCRIT (07/17/2025 5:39 PM CDT) Pathologist [facility] HEMOGLOBIN 9.3(L) 11.8 - 14.8 g/dL 07/17/2025 6:35 PM CDT [facility] Comment:Significant change f rom prior result, correlate clinically and redraw if necessary. HEMATOCRIT 28.1(L) 35.5 - 44.0 % 07/17/2025 6:35 PM CDT [facility] Blood Venipuncture / Unknown 07/17/2025 5:39 PM CDT 07/17/2025 5:47 PM CDT Jacquelin Josue DO HEMATOLOGY ORDERABLES Final Result [facility]# [id number] [address] [facility] [place] [address] * TRANSFUSE RED BLOOD CELLS (07/17/2025 3:02 PM CDT) Jacquelin Josue DO BLOOD TRANSFUSION ORDERABLES Final Result * FOLATE, SERUM (07/17/2025 1:07 PM CDT) Pathologist [facility] FOLATE, SERUM >20.0 >4.5 ng/mL 07/17/2025 2:26 PM CDT [facility] Blood Venipuncture / Unknown 07/17/2025 1:07 PM CDT 07/17/2025 1:11 PM CDT Moni Mckeon MD CHEMISTRY ORDERABLES Final Resu lt Performing Organization Address [facility]/ZIP Co de Phone Number [facility] CLIA# [id number] [address] [place] [address] * VITAMIN B12 AND FOLATE (07/17/2025 1:07 PM CDT) VITAMIN B12 940 232 - 1,245 pg/mL 07/17/2025 2:26 PM CDT [facility] Comment:It has been reported that between 5 to 10% of patients with values between 200 and 400 pg/mL may experience neuropsychiatric and hematologic abnormalities due to occult B12 deficiency. Less than 1% of patients with values above 400 pg/mL will have symptoms. FOLATE, SERUM >20.0 >4.5 ng/mL 07/17/2025 2:26 PM CDT [facility] Blood Venipuncture / Unknown 07/17/2025 1:07 PM CDT 07/17/2025 1:11 PM CDT Harshad Lynn NP CHEMISTRY ORDERABLES Final Resu lt Performing Organization Address [facility] de Phone Number [facility] CLIA# [id number] [address] [place] [address] * (ABNORMAL) LACTATE DEHYDROGENASE (07/17/2025 1:07 PM CDT) LD (LACTATE DEHYDROGENASE) 232(H) 135 - 214 U/L 07/17/2025 2:00 PM CDT [facility] Blood Venipuncture / Unknown 07/17/2025 1:07 PM CDT 07/17/2025 1:11 PM CDT Moni Mckeon MD CHEMISTRY ORDERABLES Final Resu lt Performing Organization Address City/[facility] Co de Phone Number [facility] CLIA# [id number] [address] [place] [address] * VERIFICATION BLOOD GROUP (07/17/2025 9:10 AM CDT) ABO GROUP A 07/17/2025 10:05 AM CDT [facility] RH (D) TYPE Positive 07/17/2025 10:05 AM CDT [facility] Blood Venipuncture / Unknown 07/17/2025 9:10 AM CDT 07/17/2025 9:16 AM CDT Fredrick Hernandez MD BLOOD BANK ORDERABLES Final Result Performing Organization Address [facility] Co de Phone Number [facility]# [id number] [address] [place] [address] * TYPE AND SCREEN (07/17/2025 8:36 AM CDT) Pathologist [facility] ABO GROUP A 07/17/2025 9:43 AM CDT [facility] -- [facility] RH (D) TYPE Positive 07/17/2025 9:43 AM CDT [facility] ANTIBODY SCREEN Negative 07/17/2025 9:43 AM CDT [facility] Blood Venipuncture / Unknown 07/17/2025 8:36 AM CDT 07/17/2025 8:44 AM CDT us Jacquelin Josue DO BLOOD BANK ORDERABLES Edited Result - Final [facility]# [id number] [address] [place] [address] * (ABNORMAL) TSH (07/17/2025 8:36 AM CDT) [facility] TSH 14.50(H) 0.27 - 4.20 uIU/mL 07/17/2025 1:46 PM CDT [facility] Blood Venipuncture / Unknown 07/17/2025 8:36 AM CDT 07/17/2025 8:43 AM CDT Harshad Lynn ASSISTANT PROFESSOR OF MATHEMATICS CHEMISTRY ORDERABLES Final Resu lt Performing Organization Address City/[facility]/ZIP Co de Phone Number [facility] - [facility] CLIA# [id number] [address] [place] [address] * PREPARE RED BLOOD CELLS (07/17/2025 7:37 AM CDT) Pathologist [facility] COMPONENT TYPE [id number] [facility] -- [facility] COMPONENT IDENTIFICATION [id number] [facility] -- [facility] UNIT ABO A [facility] UN[facility] RH POS [facility] CROSSMATCH Compatible [facility] COMPONENT STATUS Transfused [facility] COMPONENT EXPIRATION DATE/TIME [id number] [facility] COMPONENT CODING SYSTEM 6200 [facility] -- [facility] VOLUME, BLOOD PRODUCT 350 [facility] Other, specify 07/17/2025 7: 37 AM CDT Jacquelin Josue DO LAB TRANSFUSION ORDERABLES E dited Result - Final [facility] -- [facility] CLIA# [id number] [address] [place] [address] * MANUAL DIFFERENTIAL (07/17/2025 7:03 AM CDT) Pathologist [facility] PLATELET EST. Consistent w Count 07/17/2025 8:16 AM CDT [facility] - . [facility] ANISOCYTOSIS 1+ /hpf 07/17/2025 8:16 AM CDT [facility] - [facility] MACROCYTES 1+ /hpf 07/17/2025 8:16 AM CDT [facility] POLYCHROMASIA 1+ /hpf 07/17/2025 8:16 AM T [facility] Blood Venipuncture / Unknown 07/17/2025 7:03 AM CDT 07/17/2025 7:08 AM CDT Lindsay Miramontes MD HEMATOLOGY ORDERABLES COM Fin al Result [facility] [employer] SERVICES [facility] CLIA# [id number] [address] [facility] [place] [facility] [address] [address] * (ABNORMAL) CBC WITH DIFFERENTIAL (07/17/2025 7:03 AM CDT) Only the most recent of2 resultswithin the time period is included. WBC 4.1 4.0 - 9.8 K/uL 07/17/2025 7:35 AM [facility] SERVICES [facility] RBC 1.74(L) 3.90 - 4.90 M/uL 07/17/2025 7:35 AM [facility]ORY [facility] HEMOGLOBIN 5.8(LL) 11.8 - 14.8 g/dL 07/17/2025 7:35 AM [facility] SERVICES [facility] Comment: Verified by repeat analysis. Significant change from prior result, correlate clinically and redraw if necessary. HEMATOCRIT 18.0(L) 35.5 - 44.0 % 07/17/2025 7:35 AM [facility] SERVICES [facility] MCV 103.4(H) 82.0 - 99.0 fL 07/17/2025 7:35 AM [facility]ORATORY SERVICES [facility] MCH 33.3(H) 27.2 - 32.6 pg 07/17/2025 7:35 AM [facility] SERVICES [facility] MCHC 32.2 31.5 - 35.5 g/dL 07/17/2025 7:35 AM [facility] SERVICES [facility] RDW 17.0(H) 11.5 - 14.5 % 07/17/2025 7:35 AM CDT [facility] LABORATORY SERVICES - [facility] RDW-STDEV 64.0(H) 37.1 - 48.7 fL 07/17/2025 7:35 AM T [facility] [facility] - [facility] PLATELETS 117(L) 140 - 350 K/uL 07/17/2025 7:35 AM T [facility] [facility] - [facility] MPV 9.6 9.3 - 12.4 fL 07/17/2025 7:35 AM T [facility] [facility] - [facility] NEUTROPHILS 84 % 07/17/2025 7:35 AM [facility] - [facility] LYMPHOCYTES 8 % 07/17/2025 7:35 AM [employer] [facility] [facility] - [facility] MONOCYTES 5 % 07/17/2025 7:35 AM [facility] - [facility] EOSINOPHILS 2 % 07/17/2025 7:35 AM [facility] - [facility] BASOPHILS 0 % 07/17/2025 7:35 AM [facility] - [facility] IMMATURE GRANULOCYTES 2 % 07/17/2025 7:35 AM [employer] [facility] [facility] - [facility] Comment:IG (Immature Granulo cyte) count includes Metamyelocytes, Myelocytes, and Promyelocytes NEUTROPHIL ABSOLUTE 3.39 1.90 - 7.00 K/uL 07/17/2025 7:35 AM [facility] - [facility] LYMPHOCYTE ABSOLUTE 0.31(L) 0.70 - 4.50 K/uL 07/17/2025 7:35 AM [facility] LABORATORY SERVICES [facility] MONOCYTE ABSOLUTE 0.22 0.10 - 1.30 K/uL 07/17/2025 7:35 AM [employer] [facility] [facility]ORATORY SERVICES - . [facility] EOSINOPHIL ABSOLUTE 0.08 0.00 - 0.70 K/uL 07/17/2025 7:35 AM [facility] SERVICES - . [facility] BASOPHILS ABSOLUTE 0.00 0.00 - 0.20 K/uL 07/17/2025 7:35 AM [facility] - [facility] IMMATURE GRANULOCYTES ABSOLUTE 0.06(H) 0.00 - 0.03 K/uL 07/17/2025 7:35 AM CDT [facility] Blood Venipuncture / Unknown 07/17/2025 7:03 AM CDT 07/17/2025 7:08 AM CDT Lindsay Miramontes MD HEMATOLOGY ORDERABLES Final R esult [facility] CLIA# [id number] [address] [place] [place] [address] * PROCALCITONIN (07/16/2025 10:22 AM CDT) PROCALCITONIN 0.10 <=0.25 ng/mL 07/16/2025 11:15 AM CDT [facility] Blood Venipuncture / Unknown 07/16/2025 10:22 AM CDT 07/16/2025 10:30 AM CDT Narrative [facility] - 07/16/2025 11:15 AM CDT The [...] ORDERABLES Final Re sult Performing Organization Address [facility] Co de Phone Number [facility]# [id number] [address] [place] [address] * (ABNORMAL) IRON, TIBC, AND PERCENT SATURATION (07/16/2025 10:22 AM CDT) IRON 68 37 - 145 ug/dL 07/16/2025 2:35 PM CDT [facility] TIBC 231(L) 250 - 450 ug/dL 07/16/2025 2:35 PM CDT [facility] IRON % SATURATION 29 15 - 50 % 07/16/2025 2:35 PM CDT [facility] TRANSFERRIN 182(L) 200 - 360 mg/dL 07/16/2025 2:35 PM CDT [facility] Blood Venipuncture / Unknown 07/16/2025 10:22 AM CDT 07/16/2025 10:30 AM CDT Moni Mckeon MD CHEMISTRY ORDERABLES Final Resu lt Performing Organization Address [facility] de Phone Number [facility]# [id number] [address] [place] [address] * (ABNORMAL) C-REACTIVE PROTEIN (07/16/2025 10:22 AM CDT) CRP 53.8(H) <5.0 mg/L 07/16/2025 11:07 AM CDT [facility] Blood Venipuncture / Unknown 07/16/2025 10:22 AM CDT 07/16/2025 10:30 AM CDT Result [facility] Lindsay Miramontes MD CHEMISTRY ORDERABLES Final Re sult Performing Organization Address City/[facility]/ZIP Co de Phone Number [facility]# [id number] [address] [place] [address] * HAPTOGLOBIN (07/16/2025 10:22 AM CDT) HAPTOGLOBIN 154 30 - 200 mg/dL 07/17/2025 12:33 PM CDT [facility] Blood Venipuncture / Unknown 07/16/2025 10:22 AM CDT 07/16/2025 10:30 AM CDT Moni Mckeon MD CHEMISTRY ORDERABLES Final Resu lt Performing Organization Address [facility] Co de Phone [facility] [id number] [address] [place] [address] * (ABNORMAL) FERRITIN (07/16/2025 10:22 AM CDT) FERRITIN 493.0(H) 13.0 - 150.0 ng/mL 07/16/2025 2:35 PM CDT [facility] Blood Venipuncture / Unknown 07/16/2025 10:22 AM CDT 07/16/2025 10:30 AM CDT Moni Mckeon MD CHEMISTRY ORDERABLES Final Resu lt Performing Organization Address [facility] Co de Phone Number [facility] [employer] [facility]# [id number] [address] [place] [address] * VITAMIN B12 LEVEL (07/16/2025 10:22 AM CDT) VITAMIN B12 922 232 - 1,245 pg/mL 07/16/2025 2:14 PM CDT [facility] [employer] [facility] Comment:It has been reported that between 5 to 10% of patients with values between 200 and 400 pg/mL may experience neuropsychiatric and hematologic abnormalities due to occult B12 deficiency. Less than 1% of patients with values above 400 pg/mL will have symptoms. Blood Venipuncture / Unknown 07/16/2025 10:22 AM CDT 07/16/2025 10:30 AM CDT us Moni Mckeon MD CHEMISTRY ORDERABLES Final Resu lt [facility]# [id number] [address] [place] [address] * XR DEXA BONE DENSITY AXIAL 1 OR MORE SITES (07/13/2021) Anatomical Region Laterality Modality Other us Lj Fam MD DIAGNOSTIC IMAGING ORDERABLES F inal Result from Last 3 Months or Most Recently Relevant to Health Maintenance Insurance MEDICARE PART A AND B [employer] [facility] MEDICARE PART A AND B [employer] SUPP [employer] Medicare Part D RX [facility] [employer] Commercial Advance Directives For more information, please contact: [phone] * Full Code (Latest Code Status on File) Date Activated Date Inactivated Comments 07/18/2025 8:34 AM 07/21/2025 6:19 PM Care Teams Counter Server Relationship Specialty Start Date End Date Ankit Villafuerte DO [address] [facility] [address] [facility] [address] [place] [id number] PCP - General Internal Medicine 07/30/24
--- OUTSIDE RECORDS SUMMARY | 2025-09-30 20:58 | XMS_ITS | Encounter Summary ---
Author Organization [facility] Address [address] [place] [address] Care Team Providers Care Locomotive Mechanic Name Role Phone Ankit Villafuerte DO Primary Care Provider [phone] Encounter Details Date Type Department Care Team ([facility] Contact Info) Description 2019 Chart Note [facility] Radiation Therapy [address] [place] [address] [place] [address] [place] [address] Social History Tobacco Use Types Packs/Day Years Used Date Smoking Tobacco: Never Alcohol Use Standard Drinks/Week Comments Yes 0 (1 standard drink = 0.6 oz pur e alcohol) Comments No Sex and Gender Information Value Date Recorded Sex Assigned at Not on file Legal Sex Female 4:26 AM 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 WOOD CUTTER Gender Identity Not on file Sexual Orientation Not on file documented as of this encounter Plan of Treatment Upcoming Encounters Date Type Department Care Team (Late Contact Info) Description 10/15/2025 11:30 AM PAPER WOOD CUTTER Office Visit [facility] Oncology and Hematology - Jose [address] [facility] [address] [place] [address] Lj Fam MD [address] [facility] [address] [place] [address] documented as of this encounter Visit Diagnoses Not on filedocumented in this encounter Care Teams Locomotive Mechanic Relationship Specialty Start Date End Date Ankit Villafuerte DO [address] [facility] [address] [facility] [address] [place] [address] PCP - General Internal Medicine 07/30/24 documented as of this encounter
--- OUTSIDE RECORDS SUMMARY | 2025-09-30 20:59 | XMS_ITS | Encounter Summary ---
Author Organization [facility] [employer] [facility] Address [address] [place] [address] Care Team Providers Care Solderer Electronic Name Role Phone Ankit Villafuerte Primary Care Provider [phone] Encounter Details Date Type Department Care Team (Late Contact Info) Description 09/27/2025 Orders Only [facility] Oncology and Hematology [facility] [address] [facility] [address] [place] [address] Lj Fam MD [address] [facility] [address] [place] [address] Carcinoma of breast metastatic to [...] on file Legal Sex Female 4:26 AM LAWN CARE TECHNICIAN Gender Identity Not on file Sexual Orientation Not on file documented as of this encounter Plan of Treatment Upcoming Encounters Date Type Department Care Team (Late Contact Info) Description 10/15/2025 11:30 AM LAWN CARE TECHNICIAN Office Visit [facility] Oncology and Hematology [facility] [address] [facility] [address] [place] [address] Lj Fam MD [address] [facility] [address] [place] [address] documented as of this encounter Visit Diagnoses Diagnosis Carcinoma of breast metastatic to bone, unspecified laterality (CMS/HCC) documented in this encounter Care Teams Solderer Electronic Relationship Specialty Start Date End Date Ankti Villafuerte DO [address] [facility] [address] [place] [address] PCP - General Internal Medicine 07/30/24 documented as of this encounter
--- OUTSIDE RECORDS SUMMARY | 2025-09-30 20:59 | XMS_ITS | Encounter Summary ---
Author Organization [facility] Address [address] [place] [address] Care Team Providers Care Security Services Manager Name Role Phone Ankit Villafuerte Primary Care Provider [phone] Encounter Details Date Type Department Care Team [...] on file Legal Sex Female 4:26 AM DIETARY SUPERVISOR Gender Identity Not on file Sexual Orientation Not on file documented as of this encounter Plan of Treatment Upcoming Encounters Date Type Department Care Team (Late Contact Info) Description 10/15/2025 11:30 AM DIETARY SUPERVISOR Office Visit [facility] Oncology and Hematology - Jose [address] [facility] [address] [place] [address] Lj Fam MD [address] [facility] [address] [place] [address] documented as of this encounter Visit Diagnoses Not on filedocumented in this encounter Care Teams Security Services Manager Relationship Specialty Start Date End Date Ankit Villafuerte DO [address] [facility] 162 [facility] [address] [place] [address] PCP - General Internal Medicine 07/30/24 documented as of this encounter
--- OUTSIDE RECORDS SUMMARY | 2025-09-30 20:59 | XMS_ITS | Encounter Summary ---
Author Organization [facility] [employer] [facility] Address [address] [place] [address] Care Team Providers Care Procurement Inspector Name Role Phone Ankit Villafuerte Primary Care Provider Encounter Details Date Type Department Care Team (Late Contact Info) Description 09/30/2025 Abstract [facility] Oncology and Hematology - Jose [address] [place] [address] Lj Fam MD [address] [facility] [employer] [address] [place] [address] Social History Tobacco Use Types [...] on file Legal Sex Female 4:26 AM TELEVISION PRODUCTION TECHNICIAN Gender Identity Not on file Sexual Orientation Not on file documented as of this encounter Plan of Treatment Upcoming Encounters Date Type Department Care Team (Late Contact Info) Description 10/15/2025 11:30 AM TELEVISION PRODUCTION TECHNICIAN Office Visit [facility] Oncology and Hematology - Jose [address] [place] [phone] Lj aFm MD [address] [facility] [address] [place] [address] documented as of this encounter Visit Diagnoses Not on filedocumented in this encounter Care Teams Procurement Inspector Relationship Specialty Start Date End Date Ankit Villafuerte DO [address] [facility] [address] [place] [address] PCP - General Internal Medicine 07/30/24 documented as of this encounter
--- OUTSIDE RECORDS SUMMARY | 2025-09-30 20:59 | XMS_ITS | Clinical Summary ---
Author Organization [facility] Address [address] [place] [address] Care Team Providers Care Dialysis Clinical Manager Name Role Phone Chris Avalos PA-C Primary Care Provide r Source Comments [facility],non-owned Affiliates and Associated Physician Practices is amultiple site organization consisting of ambulatory clinics and hospital sitesin [place], [place], [place] and [place]. This disclosure is being madepursuant to the Care Everywhere program and may not contain all information available regarding this patient. Last updated 18.[facility] [employer] Allergies No known active allergies Medications * Be aware that medications may not be up to date on this document. Alwaysverify current medications with the patient. warfarin (COUMADIN) 2 MG tablet Take 5 mg by mouth once daily 2 Active rOPINIRole (REQUIP) 0.25 MG tablet Take 0.25 mg by mouth at bedtime 2 Active pancrelipase (CREON 12,000) 77[address] units capsule Active levothyroxine (SYNTHROID) 100 MCG [...] on file Legal Sex Female 5:53 PM EXECUTIVE VP Gender Identity Not on file Sexual Orientation [...] SCREENING 1952 LIPID TESTING 1950 MAMMOGRAM 1952 HEPATITIS C SCREENING 03/08/1970 PNEUMOCOCCAL VACCINE [...] Medical Devices Implanted Type Area Director Of Retail Merchandising Device Identifier Shelf Expiration Date Model / Serial / Lot Screw Implanted:Qty: 1 on 04/30/2022 by Michel Mendieta MD at [facility] Right: Wrist [employer] [id number] / / Screw 2.7mm 20mm Mldir Nonster Bone Implanted:Qty: 1 on 04/30/2022 by Michel Mendieta MD at [facility] Right: Wrist [employer] [id number] / / Plate Implanted:Qty: 1 on 04/30/2022 by Michel Mendieta MD at [facility] Right: Wrist [employer] [id number] / / Screw 2.7mm 14mm Lopro Nonster Bone Lf Implanted:Qty: 2 on 04/30/2022 by Michel Mendieta MD at [facility] Right: Wrist [employer] [id number] / / Screw Implanted:Qty: 1 on 04/30/2022 by Michel Mendieta MD at [facility] Right: Wrist [employer] [id number] / / Screw 2.7mm 20mm Crsslck Tpr Head 3 Ld Implanted:Qty: 3 on 04/30/2022 by Michel Mendieta MD at [facility] Right: Wrist [employer] [id number] / / Screw 2.7mm 22mm Lck Jesse Nonster Bone Implanted:Qty: 2 on 04/30/2022 by Michel Mendieta MD at [facility] Right: Wrist [employer] [id number] / / Explanted Type Area Director Of Retail Merchandising Device Identifier Shelf Expiration Date Model / Serial / Lot Wire K .062in 6in Fx 2 Troc Explanted:Qty: 2 on 04/30/2022 by Michel Mendieta MD at [facility] Right: Wrist [employer] [id number] / / Wire K 1.6mm Ss Fx Nonster Explanted:Qty: 3 on 04/30/2022 by Michel Mendieta MD at [facility] Right: Wrist [employer] [id number] / / Screw 2.7mm 20mm Crsslck Lopro Nonlock Explanted:Qty: 1 on 04/30/2022 by Michel Mendieta MD at [facility] Right: Wrist [employer] [id number] / / Screw 2.7mm 20mm Crsslck Lopro Nonlock Explanted:Qty: 1 on 04/30/2022 by Michel Mendieta MD at [facility] Right: Wrist [employer] [id number] / / Insurance MEDICARE [employer] [address] [place] [address] MEDICARE Care Teams Dialysis Clinical Manager Relationship Specialty Start Date End Date Chris Avalos PA-C [address] [place], [place] [phone] PCP - General 04/25/22
--- OUTSIDE RECORDS SUMMARY | 2025-09-30 20:59 | XMS_ITS ---
Author Organization [facility] Address [address] [place] [address] [place] [address] Care Team Providers Care Steam Pan Sponger Name Role Phone Ankit Villafuerte Primary Care Provider [phone] Active Problems Problem Noted Date Diagnosed Date [...]
--- OUTSIDE RECORDS SUMMARY | 2025-09-30 20:59 | XMS_ITS ---
Author Organization [facility] Address [address] [facility] [place] [address] Care Team Providers Care Hand Potter Name Role Phone Ankit Villafuerte DO Primary Care Provider [phone] Breast Cancer Status:Enrolled (Active) Start date:08/11/2025 Enrollment date:08/11/2025 Current support & services provided:Clinical Management, Refill Management, Benefits and PA Management, Financial Assistance Linked medications:palbociclib (Active) Continued Care and Services Coordination
--- OUTSIDE RECORDS SUMMARY | 2025-09-30 20:59 | XMS_ITS ---
Author Organization [facility] Address [address] [place] [address] Phone Care Team Providers Care Credit Historian Name Role Phone Unavailable Primary Care Provider [...]
--- OUTSIDE RECORDS SUMMARY | 2025-09-30 20:59 | XMS_ITS | Clinical Summary ---
Author Organization [facility] Address [address] [place] [address] Phone Care Team Providers Care Head Of Design Name Role Phone Unavailable Primary Care Provider Unavailabl e Allergies No known active allergies Medications furosemide (LASIX) 40 MG Tablet TAKE 1 TABLET BY ORAL ROUTE EVERY DAY 2 6 Active SYNTHROID 125 MCG Tablet TAKE 1 TABLET BY ORAL ROUTE EVERY DAY 2 6 Active montelukast (SINGULAIR) 10 MG Tablet Take 10 mg by mouth daily. 1 6 Active CREON [address] Particles TAKE ONE CAPSULE [...] patient's age to complete this topic Insurance [employer]
--- OUTSIDE RECORDS SUMMARY | 2025-09-30 20:59 | XMS_ITS | Clinical Summary ---
Author Organization [facility] Address [address] [place] [id number] Care Team Providers Care Food Assembler [employer] Kitchen Name Role Phone Ankit Villafuerte DO Primary Care Provider [phone] Allergies No known active allergies Medications warfarin [...] Comments Blood Pressure 137/83 09/28/2024 5:55 PM GLOBAL DIRECTOR [employer] CHANGE Pulse 73 09/28/2024 5:55 PM GLOBAL DIRECTOR [employer] CHANGE Temperature 36.2 C (97.1 F) 09/28/2024 5:55 PM GLOBAL DIRECTOR [employer]IM[employer] CHANGE Respiratory Rate 18 09/28/2024 5:55 PM GLOBAL DIRECTOR [employer] CHANGE Oxygen Saturation 98% 09/28/2024 5:55 PM [employer]LO[employer] CHANGE Inhaled Oxygen Concentration - - Weight 97.1 kg (214 lb 1.1 oz) 09/28/2024 3:00 P M [employer] Height 175.3 cm (5' 9) 09/28/2024 3:00 PM GLOBAL [employer] CH[employer] Body Mass Index 31.61 09/28/2024 3:00 PM GLOBAL [employer] CHANGE Plan of Treatment Health Maintenance Due Date Last Done Comments Colorectal Cancer Screening Colonoscopy (10 Years) 1952 Hepatitis C 1970 Zoster Vaccines (1 of 2) 2002 Annual Medicare Wellness Visit 2017 Mammogram Screening 06/29/2023 06/29/2021, 06/28/2020, 06/26/2019, Additional history exists COVID-19 Vaccine (3 - season) 2025 01/07/2021, 12/10/2020 Influenza Adult (#1) 2025 09/17/2024, 07/13/2020, 10/02/2019, Additional history exists DTaP, Tdap and Td Vaccines (3 - Td or Tdap) 09/28/2034 09/28/2024, 04/09/2022 Pneumococcal Vaccine: 50+ Years Completed 07/13/2020, 09/04/2018 Dexa Scan (General) Completed 07/13/2021, 07/13/2021, 01/02/2017 RSV Immunization or 60+ Years Completed 11/28/2023 Hepatitis A Vaccines Aged Out No long er eligible based on patient's age to complete this topic Meningococcal B Vaccine Aged Out No l onger eligible based on patient's age to complete this topic Meningococcal Vaccine Aged Out No fred anali eligible based on patient's age to complete this topic RSV Immunizations Under 20 Months Aged Out No longer eligible based on patient's age to complete this topic Insurance [employer] MEDICARE [facility] [employer] Care Teams Food Assembler [employer] Kitchen Relationship Specialty Start Date End Date Ankit Villafuerte DO [address] [address] PCP - General INTERNAL MEDICINE 09/28/24
[2025-09-30] MEDS: CEFEPIME 2 GM in SODIUM CHLORIDE 0.9% IV 50 ML 100 ML IVPB (21:31)
[2025-09-30] MEDS: LACTATED RINGERS 1,000 ML 999 ML IV CONT ×2 (21:32→21:56)
[2025-09-30] MEDS: ACETAMINOPHEN 500 MG TABLET 1000 MG PO (21:40)
[2025-09-30] MEDS: VANCOMYCIN 1,500 MG/NS 500 ML 1,500 MG/500 ML BAG 250 MG IVPB (21:57)
[2025-10-01] VITALS (36 sets, daily range): BP systolic 91–128; BP diastolic 56–75; PULSE 91–135; RESP 20–31; TEMP 36.4–37.2; O2SAT 91–98; BMI 26.9
[2025-10-01] MEDS: LACTATED RINGERS 500 ML 999 ML IV CONT (00:05)
[2025-10-01] MEDS: LACTATED RINGERS 1,000 ML 150 ML IV CONT (00:08)
[2025-10-01 01:01] LABS: Add Urine Microscopic? YES; Appearance Urine Clear (Clear); Glucose Urine UA Negative (Negative); Leukocyte Esterase Ur Negative LEU/UL (Negative); Need Manual Microscopic Reviewed; Nitrate Urine Negative (Negative); Non Pathogenic Casts 0-2; Specific Grav Ur > 1.045 (1.001-1.035)
--- NOTE | 2025-10-01 03:16 | WPCEDHO ---
ED Hand Off Checklist All vitals saved:yes IV Site documented:yes All med administrations documented:yes Triage Note Triage Note Patient to the ED with complaints 09/30/25 20:05 of vomiting and not feeling well today. patient has history of breast cancer that has metastasized to her bones. patient is going through chemotherapy currently. Pt changed into gown and placed on monitor. Pt sat 85% on RA. Placed on 4 L NC. Allergies No Known Allergies Allergy (Verified 09/30/25 14:12) Family History (Last Reviewed 09/30/25 @ 21:21 by Shawn Morataya MD) Father Family history of diabetes mellitus in first degree relative Family history of congestive heart failure Mother Family history of malignant neoplasm of breast in first degree relative Other Family history of malignant neoplasm Active Medications including assessments/comments Lactated Ringer's (Lr - Lactated Ringers Iv) 1,000 mls @ 150 mls/hr IV CONT .Q6H40M [facility] Last Admin: 10/01/25 00:08 Dose: 150 mls/hr Documented By: ROHIT Infusion/Titration Document 10/01/25 00:08 EMW (Rec: 10/01/25 00:08 EMW [id number]) Intake IV Site Peripheral Access Left Hand Container Volume 1,000 Waste Amount 0 Dosing Infusion Rate 150 Cumulative Dose Not Applicable Increase/Decrease Started Elapsed Time Elapsed Time ( 0m minutes) Administered/Completed Medications Discontinued Medications Acetaminophen (Acetaminophen 500 Mg Tablet) 1,000 mg PO ONCE STA Stop: 09/30/25 20:57 Last Admin: 09/30/25 21:40 Dose: 1,000 mg Documented By: MED Cefepime HCl 2 gm/ Sodium (Chloride) 50 mls @ 100 mls/hr IVPB ONCE STA Stop: 09/30/25 21:25 Last Infusion: 09/30/25 22:30 Dose: Infused Documented By: Admin: 09/30/25 21:31 Dose: 100 mls/hr Documented By: MED Lactated Ringer's (Lr - Lactated Ringers Iv) 1,000 mls @ 999 mls/hr IV CONT .Q1H1M STA Stop: 09/30/25 22:00 Last Infusion: 09/30/25 22:31 Dose: Infused Documented By: Admin: 09/30/25 21:32 Dose: 999 mls/hr Documented By: MED Lactated Ringer's (Lr - Lactated Ringers Iv) 1,000 mls @ 999 mls/hr IV CONT .Q1H1M STA Stop: 09/30/25 22:00 Last Infusion: 09/30/25 23:57 Dose: Infused Documented By: Admin: 09/30/25 21:56 Dose: 999 mls/hr Documented By: MED Lactated Ringer's (Lr - Lactated Ringers Iv) 500 mls @ 999 mls/hr IV CONT .Q31M STA Stop: 09/30/25 21:30 Last Infusion: 10/01/25 00:39 Dose: Infused Documented By: Admin: 10/01/25 00:05 Dose: 999 mls/hr Documented By: ROHIT Vancomycin HCl (Vancomycin 1,500 Mg/Ns 500 Ml) 1,500 mg in 500 mls @ 250 mls/hr IVPB ONCE ONE Stop: 09/30/25 23:04 Last Infusion: 10/01/25 00:08 Dose: Infused Documented By: Admin: 09/30/25 21:57 Dose: 250 mls/hr Documented By: MED Interventions/Assessments IV / Saline Lock, Insert Start: 09/30/25 17:56 Freq: STAT Status: Active Protocol: Document 09/30/25 20:43 [facility] (Rec: 09/30/25 20:43 [facility] [id number]) IV Assessment Peripheral Access Left Hand IV Insertion Date 09/30/25 IV Insertion Time 20:43 Catheter Gauge 20 IV Insertion 1 Attempts Ultrasound Used for No Placement IV Site Assessment WNL IV Care and WNL Maintenance PA: Gastrointestinal Assessment Start: 09/30/25 14:45 Freq: Status: Active Protocol: Document 09/30/25 20:08 [facility] (Rec: 09/30/25 20:08 [facility] [id number]) GI Assessment Gastrointestinal Nausea,Vomiting Symptoms Description Tender Last Vital Signs Temperature 98.3 F 10/01/25 02:28 Pulse Rate 105 H 10/01/25 03:01 Respiratory Rate 31 H 10/01/25 03:01 Pulse Oximetry 96 10/01/25 03:01 Blood Pressure 117/61 10/01/25 03:01 Blood Pressure Mean 77 10/01/25 03:01 Blood Pressure Position Sitting 09/30/25 19:32 Oxygen Delivery Nasal Cannula 10/01/25 00:40 Oxygen Flow Rate 3 10/01/25 00:40 Weight 81.65 kg 09/30/25 14:46 Last Result - Abnormals Only WBC 1.2 K/mm3 (4.5-10.0) L* 09/30/25 18:10 RBC 2.73 M/mm3 (4.2-5.4) L 09/30/25 18:10 Hgb 9.6 g/dL (12.0-15.0) L 09/30/25 18:10 Hct 29.3 % (37.0-47.0) L 09/30/25 18:10 MCV 107.3 fl (80-100) H 09/30/25 18:10 MCH 35.2 pg (26-34) H 09/30/25 18:10 RDW 22.2 % (11.5-14.5) H 09/30/25 18:10 Plt Count 116 k/mm3 (150-375) L 09/30/25 18:10 MPV 10.7 fl (7.4-10.4) H 09/30/25 18:10 Neutrophils % (Manual) 41 % (46-73) L 09/30/25 18:10 Band Neutrophils % 18 % (0-6) H 09/30/25 18:10 Monocytes % (Manual) 19 % (3-9) H 09/30/25 18:10 Basophils % (Manual) 2 % (0-1) H 09/30/25 18:10 Abs Neuts (Manual) 0.70 K/mm3 (1.3-6.7) L 09/30/25 18:10 Abs Lymphs (Manual) 0.22 K/mm3 (1.1-4.5) L 09/30/25 18:10 PT 42.8 Seconds (11.1-14.7) H 09/30/25 18:10 APTT 72.9 Seconds (22.3-36.8) H 09/30/25 18:10 Sodium 133 mmol/L (137-145) L 09/30/25 18:10 Glucose 111 mg/dL (65-110) H 09/30/25 18:10 AST 67 U/L (14-36) H 09/30/25 18:10 ALT 41 U/L (6-35) H 09/30/25 18:10 Alkaline Phosphatase 178 U/L (38-126) H 09/30/25 18:10 Lipase 14 U/L (23-300) L 09/30/25 18:10 Ur Specific Ladd > 1.045 (1.001-1.035) H 10/01/25 00:36 Urine Ketones Trace mg/dL (Negative) H 10/01/25 00:36 Urine WBC 11-20 /hpf (0-3) H 10/01/25 00:36 Most Recent Suicide Severity Rating Suicide Severity Rating NO RISK INDICATED 09/30/25 20:05
--- NOTE | 2025-10-01 03:42 | PM.IMHP ---
H&P: HPI History of Present Illness Date/Time: 10/01/25 03:42 Chief Complaint: This is a 75 yo female who has a hx of right breast cancer that has metastasized to the bone . She receives 3 weeks of chemo therapyand has one week off. her last chemo treatment was 1 week ago.Her oncologist is Dr. Fam. She came to the ER with complaints of weakness with nausea. vomiting and diarrhea.She stated that she did recieve an iv infusion of fluids 2 days ago I MPRESSION: 1. No acute pulmonary findings. 2. Extensive skeletal metastatic lesions. Fractures of lateral right fifth and sixth ribs, possible pathological fractures. She cntinues to have difficulty Keeping food down. She uses imodium to control the diarrhea. She does have a dry cough and hears herself wheeze.Her wbc is noted to be 1.2 , h and h is 9.6 and 29.3.Neutrophils 41.She was empirically started on cefepim and vancomycin. Viral serology was found to be negative.Temp 100.1 1. Postsurgical changes of right mastectomy. Extensive, predominantly osteoblastic metastatic lesions of the skeletal system are seen. Fractures of anterior right fifth and sixth ribs, possible pathological fractures. 2. Small right pleural effusion. 3. No acute findings noted in the abdomen and pelvis. She is very mi[place]kmaq and the batteries her hearing aides has gone therefore her is supplying most of the information. The patient is being admitted to inpatient status on Review of Systems Constitutional: Constitutional: Reports as per HPI and Reports no additional constitutional complaints Eyes: Eyes: Reports as per HPI and Reports no additional eye complaints ENT: Reports system reviewed and no additional complaints, except as documented and Reports Normal hearing present Cardiovascular: Cardiovascular: Reports no additional cardiovascular complaints Respiratory: Respiratory: Reports as per HPI and Reports no additional respiratory complaints Gastrointestinal: Gastrointestinal: Reports as per HPI and Reports no additional gastrointestinal complaints Genitourinary: Genitourinary: Reports no additional female genitourinary complaints Musculoskeletal: Musculoskeletal: Reports no additional musculoskeletal complaints Integumentary/Breasts: Skin/Breast: Reports system reviewed and no additional complaints, except as docu Neurologic: Reports system reviewed and no additional complaints, except as documented and Reports Normal hearing present Psychiatric: Psychiatric: Reports no additional psychiatric complaints and Reports as per HPI Hematologic/Lymphatic: Hematologic/Lymphatic: Reports no additional hematologic/lymphatic complaints Allergic/Immunologic: Allergic/Immunologic: Reports no additional allergic/immunologic complaints [facility], LAT[facility] Past Medical History Medical History (Updated 10/01/25 @ 09:26 by James Jackson MD) Hx of pulmonary embolus Hypertension History of radiation therapy 10 treatments Bone cancer hip Intractable nausea and vomiting Restless leg syndrome Chronic anticoagulation Superior vena cava thrombosis Cervical cancer status post radiation and chemotherapy Degenerative joint disease Chronic obstructive pulmonary disease suspected though no formal diagnosis per patient report Allergies Exocrine pancreatic insufficiency Osteoporosis due to aromatase inhibitor Hypothyroidism, unspecified 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 Cintron H/O total hysterectomy History of open reduction and internal fixation (ORIF) procedure repair right wrist fracture History of arthroscopy of both knees History of cholecystectomy History of appendectomy History of right mastectomy (11/2016) Family History Family History Father Family history of diabetes mellitus in first degree relative Family history of congestive heart failure Mother Family history of malignant neoplasm of breast in first degree relative Other Family history of malignant neoplasm Social History Social History (Updated 10/01/25 @ 08:39 by Kinjal Boyd APRN) Social History: She has 2 children and is retired Surrogate medical decision maker: Charly Pulido, spouse. Code status: FULL CODE. Smoking status: Never smoker Second hand tobacco smoke exposure: No Alcohol intake: never Alcohol use details: Social alcohol use in the past, non since 2013. Substance use: never Substance use type: does not use Do You Feel Safe in your Home?: Yes Lack of Transportation: No Lack of Food: Never True Current Housing: I Have Housing Concerned About Future Housing: No Difficulty Paying Gas/Electric Bills: No Difficulty Paying for Meds: No Currently Unemployed: No Education: Associate Degree Difficulty w/ Childcare or Family Care: No Living arrangements: with family Additional living arrangements comments: [facility] Spiritual care concerns: No Meds Home Medications and Allergies Home Medications ?Medication ?Instructions ?Recorded ?Confirmed ?Type gabapentin 800 mg tablet 800 mg PO BID 05/20/23 10/01/25 History loratadine 10 mg tablet (Claritin) 10 mg PO DAILY 11/25/23 10/01/25 History ascorbic acid (vitamin C) 1,000 mg 1 g PO DAILY 03/19/25 10/01/25 History capsule calcium 600 mg capsule 600 mg PO DAILY 03/19/25 10/01/25 History geriatric multivitamin-min 1 tablet PO DAILY 03/19/25 10/01/25 History guaifenesin 1,200 mg tablet, 1,200 mg PO BID 03/30/25 10/01/25 History extended release 12 hr (Mucinex) warfarin 2 mg tablet 4 mg PO DAILY 03/30/25 10/01/25 History levothyroxine 75 mcg tablet 75 mcg PO QAM #90 tabs 04/27/25 10/01/25 Rx budesonide 0.5 mg/2 mL suspension 0.5 mg (2 mL) inhalation DAILY #60 05/06/25 10/01/25 Rx for nebulization mL ipratropium bromide 0.02 % 2.5 ml inhalation Q6H PRN 05/06/25 10/01/25 Rx solution for inhalation shortness of breath or wheezing #300 mL ferrous sulfate 325 mg (65 mg 325 mg PO DAILY 08/20/25 10/01/25 History iron) tablet (Feosol) vitamin B12 1,000 mcg-folic acid 1 tablet sublingual DAILY 08/20/25 10/01/25 History 400 mcg sublingual tablet ondansetron 4 mg disintegrating 4 mg PO Q6H PRN nausea and 08/25/25 10/01/25 Rx tablet vomiting #60 tabs atenolol 25 mg tablet 12.5 mg PO QHS 09/17/25 10/01/25 History albuterol sulfate 0.63 mg/3 mL 0.63 mg inhalation BID PRN 10/01/25 10/01/25 History solution for nebulization shortness of breath or wheezing albuterol sulfate 90 mcg/actuation 2 inh inhalation Q4-6H PRN 10/01/25 10/01/25 History breath activated powder inhaler shortness of breath or wheezing (ProAir RespiClick) dicyclomine 20 mg tablet 20 mg PO TID 10/01/25 10/01/25 History megestrol 400 mg/10 mL (40 mg/mL) 400 mg PO DAILY 10/01/25 10/01/25 History oral suspension palbociclib 125 mg tablet (Ibrance) 125 mg PO DAILY 10/01/25 10/01/25 History primidone 50 mg tablet 50 mg PO HS 10/01/25 10/01/25 History ropinirole 0.25 mg tablet 0.25 mg PO HS 10/01/25 10/01/25 History Allergies Allergy/AdvReac Type Severity Reaction Status Date / Time No Known Allergies Allergy Verified 10/01/25 04:09 Vital Signs Vital Signs - 24 hr 09/30/25 14:46 09/30/25 18:11 09/30/25 19:32 Temperature 98.3 F 100.1 F H Pulse Rate 115 H 124 H 126 H Respiratory Rate 20 18 Blood Pressure 90/61 L 108/65 Pulse Oximetry 94 93 90 Oxygen Delivery Room Air Oxygen Flow Rate 09/30/25 20:01 09/30/25 20:02 09/30/25 20:04 Temperature Pulse Rate 119 H 120 H 117 H Respiratory Rate 15 19 17 Blood Pressure 125/77 125/77 Pulse Oximetry 93 97 98 Oxygen Delivery Oxygen Flow Rate 09/30/25 20:15 09/30/25 20:16 09/30/25 20:30 Temperature Pulse Rate 115 H 115 H Respiratory Rate 18 28 H Blood Pressure 129/74 141/76 H Pulse Oximetry 97 97 98 Oxygen Delivery Oxygen Flow Rate 09/30/25 20:31 09/30/25 21:11 09/30/25 21:15 Temperature Pulse Rate 115 H 121 H Respiratory Rate 29 H 34 H Blood Pressure 142/85 H 135/85 Pulse Oximetry 98 95 95 Oxygen Delivery Oxygen Flow Rate 09/30/25 21:31 09/30/25 21:45 09/30/25 22:00 Temperature Pulse Rate 111 H 115 H 115 H Respiratory Rate 34 H 25 H 24 H Blood Pressure 135/72 149/72 H 138/73 Pulse Oximetry 96 95 Oxygen Delivery Oxygen Flow Rate 09/30/25 22:26 09/30/25 22:30 09/30/25 23:01 Temperature Pulse Rate 109 H 103 H Respiratory Rate 21 H Blood Pressure 122/70 120/74 128/68 Pulse Oximetry 95 94 95 Oxygen Delivery Oxygen Flow Rate 09/30/25 23:46 10/01/25 00:16 10/01/25 00:40 Temperature Pulse Rate 102 H 102 H Respiratory Rate 25 H 25 H Blood Pressure 124/65 114/66 Pulse Oximetry 95 94 95 Oxygen Delivery Nasal Cannula Oxygen Flow Rate 3 10/01/25 00:46 10/01/25 01:01 10/01/25 01:16 Temperature Pulse Rate 101 H 104 H 103 H Respiratory Rate 24 H 23 H 26 H Blood Pressure 116/69 109/66 99/61 L Pulse Oximetry 94 93 93 Oxygen Delivery Oxygen Flow Rate 10/01/25 01:31 10/01/25 01:47 10/01/25 02:01 Temperature Pulse Rate 103 H 99 103 H Respiratory Rate 23 H 23 H 23 H Blood Pressure 98/61 L 107/67 91/63 L Pulse Oximetry 94 94 94 Oxygen Delivery Oxygen Flow Rate 10/01/25 02:16 10/01/25 02:28 10/01/25 02:31 Temperature 98.3 F Pulse Rate 101 H 105 H Respiratory Rate 24 H 29 H Blood Pressure 110/58 L 106/73 Pulse Oximetry 94 95 Oxygen Delivery Oxygen Flow Rate 10/01/25 02:46 10/01/25 03:01 Temperature Pulse Rate 100 105 H Respiratory Rate 22 H 31 H Blood Pressure 103/63 117/61 Pulse Oximetry 95 96 Oxygen Delivery Oxygen Flow Rate Exam Const: General: cooperative, comfortable, no acute distress, well developed, awake, Physically active, ill appearing, average body habitus and well nourished Nutritional Appearance: average body habitus Orientation/consciousness: oriented to person, oriented to place, oriented to time and patient oriented x3 HENMT: Head: normal to inspection, No palpable skull fracture present, normocephalic, atraumatic and abrasion Ears: external ears normal Other: She is hard of hearing of hearing. he hearing aids have ran out of battery at this time. Her hearing aides are non functioning at this time Eyes: General: appearance normal, both eyes and all related structures Alignment and Position: alignment normal Neck: Neck: normal visual inspection and full ROM Chest: Chest palpation & inspection: normal inspection of the chest Other: scar to right chest s/p mastectomy Resp: Effort & Inspection: normal respiratory effort Auscultation: rhonchi (upper lobes ) and wheezes Cardio: Palpation: normal PMI Rate: regular rate Rhythm: regular rhythm Heart sounds: S1 normal heart sound present and S2 normal heart sound present Peripheral pulses: Peripheral pulses 2+ throughout GI: Inspection: normal to inspection Percussion: Yes normal to percussion Auscultation: normal bowel sounds Rectal Exam: deferred : General: Yes no CVA tenderness Skin: General skin exam: normal color Lesions: no lesions Rashes: no rashes Trauma: no lacerations or abrasions Wounds: no wounds Hair: normal Nails: normal Neuro: General: oriented to person, oriented to place, oriented to time and patient oriented x3 Speech: normal speech Motor exam (neuro): 5/5 motor strength present throughout Sensory Exam: normal sensation Extrem: General: normal to inspection Right upper extremity: normal to inspection and shoulder/upper arm Left upper extremity: normal to inspection and shoulder/upper arm Right lower extremity: normal to inspection Left lower extremity: normal to inspection Psych: Appearance: grossly normal Mental Status: mental status grossly normal Speech and movement: Normal speech and movement present Affect: normal affect Attitude: cooperative Thought process: Normal thought process present Thought content: Yes Normal thought content present H&P: Results Labs Labs: Short CBC 09/30/25 Range/Units 18:10 WBC 1.2 L* (4.5-10.0) K/mm3 Hgb 9.6 L (12.0-15.0) g/dL Hct 29.3 L (37.0-47.0) % Plt Count 116 L (150-375) k/mm3 BMP 09/30/25 18:10 Sodium 133 L Potassium 4.2 Chloride 103 Carbon Dioxide 22 BUN 13 D Creatinine 0.83 Glucose 111 H Calcium 8.5 Cardiac Enzymes 09/30/25 09/30/25 Range/Units 18:10 18:10 Troponin I < 0.012 Cancelled (0.000-0.034) ng/mL Liver Function 09/30/25 Range/Units 18:10 Total Bilirubin 1.2 (0.2-1.3) mg/dL AST 67 H (14-36) U/L ALT 41 H (6-35) U/L Alkaline Phosphatase 178 H (38-126) U/L Albumin 4.2 (3.5-5.1) g/dL Urine 10/01/25 Range/Units 00:36 Urine Color Yellow (Yellow) Urine Appearance Clear (Clear) Urine pH 6.0 (5.0-9.0) Ur Specific [place] > 1.045 H (1.001-1.035) Urine Protein Trace (Negative) mg/dL Urine Glucose (UA) Negative (Negative) mg/dL Imaging CT scan - chest: Radiologist's impression: ITS Impressions Chest X-Ray 09/30/25 18:20 IMPRESSION: 1. No acute pulmonary findings. 2. Extensive skeletal metastatic lesions. Fractures of lateral right fifth and sixth ribs, possible pathological fractures. Chest/Abdomen/Pelvis CT 09/30/25 21:32 IMPRESSION: 1. Postsurgical changes of right mastectomy. Extensive, predominantly osteoblastic metastatic lesions of the skeletal system are seen. Fractures of anterior right fifth and sixth ribs, possible pathological fractures. 2. Small right pleural effusion. 3. No acute findings noted in the abdomen and pelvis. Chest X-Ray 10/01/25 06:43 IMPRESSION: 1. No change or acute cardiopulmonary findings. Assessment and Plan Assessment and plan (1) Pancytopenia: Code(s): D61.818 - Other pancytopenia Status: Acute Assessment and Plan: - The patient has been having 3 weeks of chemotherapy with one week off. she has been off for a week now - Dr. Fam was consulted for further evaluation and recommendations . -WBC 1.2, h/h 9.6/29.3 - she is in her muriel period - continue to monitor cbc daily -She was placed in protective isolation - she has had one episode of a low grade fever of 100.1 - chest x ray was free of any infection. CT 1. Postsurgical changes of right mastectomy. Extensive, predominantly osteoblastic metastatic lesions of the skeletal system are seen. Fractures of anterior right fifth and sixth ribs, possible pathological fractures. 2. Small right pleural effusion. 3. No acute findings noted in the abdomen and pelvis. Stool and blood cultures are pending She was empirically started on vanco and cefepime (2) Current use of half-way anticoagulation: Code(s): Z79.01 - meterman (current) use of anticoagulants Status: Acute Assessment and Plan: -She is on warfarin for a history of dvts -daily pt inr (3) Hypothyroidism, unspecified: Qualifiers: Hypothyroidism type: unspecified Qualified Code(s): E03.9 - Hypothyroidism, unspecified Code(s): E03.9 - Hypothyroidism, unspecified Status: Acute Assessment and Plan: -continue with levothyroxine (4) Diarrhea: Code(s): R19.7 - Diarrhea, unspecified Status: Acute Assessment and Plan: -stool cultures were ordered - Most likely secondary to the chemo -imodium was ordered - iv fluids were given in the er and then stopped when she moved to IMU for possible fluid overload. (5) Breast cancer metastasized to bone: Qualifiers: Laterality: unspecified laterality Qualified Code(s): C50.919 - Malignant neoplasm of unspecified site of unspecified female breast; C79.51 - Secondary malignant neoplasm of bone Code(s): C50.919 - Malignant neoplasm of unspecified site of unspecified female breast; C79.51 - Secondary malignant neoplasm of bone Status: Acute Assessment and Plan: - Dr. Wynn has been treating her breast cancer that has metatasized to the bone. (6) COPD (chronic obstructive pulmonary disease) with acute bronchitis: Code(s): J44.0 - Chronic obstructive pulmonary disease with (acute) lower respiratory infection; J20.9 - Acute bronchitis, unspecified Status: Acute Assessment and Plan: -elvin shipley (7) Hypertension: Code(s): I10 - Essential (primary) hypertension Status: Acute Assessment and Plan: - her bp was slightly low when she came to er and her atenolol is held at this time . please reevaluate and adjust accordingly Quality VTE Prophylaxis VTE prophylaxis: pharmacologic ordered (On Coumadin)
--- NOTE | 2025-10-01 03:55 | ADMGEN ---
This patient, Damien Pulido, was admitted to IMU Room 204-01 via stretcher with one tech and no issues. Patient/family oriented to hospital policies and general routines including ID bracelet, bed and alarms, visiting hours, pain management, procedures, bathroom and other care routines, personal items, smoking policy, room service/diet, and visiting hours. Information on how to activate the Rapid Response Team has been discussed. Patient/Family are encouraged to report perceived risks to care and to ask questions if they do not understand what they are told or what they should do.
[2025-10-01] MEDS: ACETAMINOPHEN 325 MG TABLET 650 MG PO (04:53)
--- NOTE | 2025-10-01 06:18 | PC.NURSE ---
This patient, Damien Pulido, was admitted to IMU Room 204-01 at 0355. Patient/family oriented to hospital policies and general routines including ID bracelet, bed and alarms, visiting hours, pain management, procedures, bathroom and other care routines, personal items, smoking policy, room service/diet, and visiting hours. Information on how to activate the Rapid Response Team has been discussed. Patient/Family are encouraged to report perceived risks to care and to ask questions if they do not understand what they are told or what they should do.
[2025-10-01 06:42] LABS: Estimated CRCL calculation 62 ml/min; Estimated Glomerular Filt Rate > 60
[2025-10-01 07:06] LABS: Hematocrit 23.8 % (37.0-47.0); Hemoglobin 7.9 g/dL (12.0-15.0); Mean Corpuscular HGB Conc 33.2 g/dl (32-36); Mean Corpuscular Hemoglobin 36.1 pg (26-34); Mean Corpuscular Volume 108.7 fl (80-100); Platelet Count Result 108 k/mm3 (150-375); Red Blood Count 2.19 M/mm3 (4.2-5.4)
[2025-10-01 07:13] LABS: Anion Gap 4 mmol/L (4-12); Blood Urea Nitrogen 14 mg/dL (7-17); Calcium 7.5 mg/dL (8.4-10.2); Carbon Dioxide 21 mmol/L (22-30); Chloride 106 mmol/L (98-107); Glucose 101 mg/dL (65-110); Potassium 3.7 mmol/L (3.4-5.0); Sodium 131 mmol/L (137-145)
[2025-10-01] MEDS: DICYCLOMINE HCL 10 MG CAPSULE 20 MG PO ×3 (08:32→21:11)
[2025-10-01] MEDS: MEGESTROL ACETATE (*CHEMO) ORAL SUSP 40 MG/ML UD 200 MG PO (08:38)
[2025-10-01] MEDS: CEFEPIME 2 GM in SODIUM CHLORIDE 0.9% IV 50 ML 100 ML IVPB ×3 (08:38→21:24)
[2025-10-01] MEDS: guaiFENesin 12 HR 600 MG TABCR 1200 MG PO ×2 (08:39→21:11)
[2025-10-01] MEDS: GABAPENTIN 400 MG CAPSULE 800 MG PO ×2 (08:39→21:11)
[2025-10-01] MEDS: FOLIC ACID 0.4 MG TABLET PO (08:39)
[2025-10-01] MEDS: FERROUS SULFATE 325 MG TABLET BY MOUTH (08:39)
[2025-10-01] MEDS: CALCIUM CARBONATE (OSCAL) 500 MG TABLET PO (08:39)
[2025-10-01] MEDS: CYANOCOBALAMIN 1,000 MCG TABLET 1000 MCG PO (08:39)
[2025-10-01] MEDS: LOPERAMIDE HCL 2 MG CAPSULE PO (08:39)
[2025-10-01 08:41] LABS: Prothrombin Time 55.6 Seconds (11.1-14.7)
--- NOTE | 2025-10-01 08:41 | ECG_ITS ---
Test Date: 2025-10-01 08:54:53 Measurements Intervals [place] Rate: 105 P: 59 NE: 187 QRS: 5 QRSD: 93 T: 32 QT: 370 QTc: 489 Interpretive Statements SINUS TACHYCARDIA POOR R-WAVE PROGRESSION BORDERLINE ECG Compared to ECG 08/24/2025 15:44:49 DIFFERENT PRECORDIAL LEAD POSITION OTHERWISE NO CHANGE Electronically Signed On 10-01-2025 11:23:54 RIVER GUIDE by James Montero M.D.
[2025-10-01 08:54] LABS: White Blood Count 0.8 K/mm3 (4.5-10.0)
[2025-10-01 08:56] LABS: INR 6.7
--- NOTE | 2025-10-01 09:17 | P.PN_ITS ---
Progress Note: A&P Assessment and Plan (1) Hypoxia: Code(s): R09.02 - Hypoxemia Status: Acute Assessment and Plan: Patient with cough and now hypoxia. CXR clear on admission. CTA chest showing no acute pulmonary lesions but small right pleural effusion. Patient on 2.5L currently. She is life long nonsmoker and no hx of asthma Received 3L IV fluids in ED. Repeat CXR and BNP. Check Sputum. (2) Pancytopenia: Code(s): D61.818 - Other pancytopenia Status: Acute Assessment and Plan: Patient with metastatic breast CA on Ibrance for 3 weeks with last dose 09/24/25 WBC 1.2 (ANC 708) -> 0.8 Hgb 9.6 and dropped to 7.9 but could be dilutional Plt 116K -> 108K CXR clear. CT Ch/A/P showing no acute findings. UA showing 11-20 WBC, negative LE/Nit Pancytopenia related to Ibrance Continue to monitor cbc with diff daily Low grade fever to 100.1 She was placed in protective isolation Urine, Stool and blood cultures are pending She was empirically started on vanco and cefepime Dr. Fam was consulted for further evaluation and recommendations . Follow up on Cx. ID consult. (3) Breast cancer metastasized to bone: Qualifiers: Laterality: unspecified laterality Qualified Code(s): C50.919 - Malignant neoplasm of unspecified site of unspecified female breast; C79.51 - Secondary malignant neoplasm of bone Code(s): C50.919 - Malignant neoplasm of unspecified site of unspecified female breast; C79.51 - Secondary malignant neoplasm of bone Status: Acute Assessment and Plan: Patient with metastatic breast CA recently started on Ibrance. S/P right mastectomy. Mets to bone with CT showing extensive, predominantly osteoblastic metastatic lesions of the skeletal system with fractures of anterior right fifth and sixth ribs, possible pathological fractures. Dr Fam consult (4) Hx of pulmonary embolus: Code(s): Z86.711 - Personal history of pulmonary embolism Status: Acute Assessment and Plan: Patient is on Coumadin for hx of PEs about 10 years ago. INR 4.7 -> 6.7 Hgb has dropped to 7.9 but some of this could be realted to IV fluids. Serial HH. Daily INR. Vit K once. (5) Diarrhea: Code(s): R19.7 - Diarrhea, unspecified Status: Acute Assessment and Plan: Patient with diarrhea prior to admission but nothing here. Probably related to Ibrance since known side effect Stop imodium. Follow (6) COPD (chronic obstructive pulmonary disease) with acute bronchitis: Code(s): J44.0 - Chronic obstructive pulmonary disease with (acute) lower respiratory infection; J20.9 - Acute bronchitis, unspecified Status: Acute Assessment and Plan: Patient presumably has COPD but life long nonsmoker. On budesonide on admission which was continued Continue duo nebs for now (7) Hypertension: Code(s): I10 - Essential (primary) hypertension Status: Acute Assessment and Plan: BP was slightly low in ER and atenolol held BP still soft at times. Follow off anti-HTN meds (8) Hypothyroidism, unspecified: Qualifiers: Hypothyroidism type: unspecified Qualified Code(s): E03.9 - Hypothyroidism, unspecified Code(s): E03.9 - Hypothyroidism, unspecified Status: Acute Assessment and Plan: TSH 11 in Jul. Continue with levothyroxine Repeat TSH Plan DVT Prophylaxis - INR supratherapeutic Code status - full Subjective Date/time seen: 10/01/25 09:17 Interval history: 75yo female with metastatic breast CA, hx of PE on Coumadin and HTN here for nausea, vomiting and weakness. Cough is nonproductive. No metalic taste int he mouth. Not on O2 at home. No CP or SOB. No rash. No dysuria or hematuria but RN states urine appeared slightly pink in color. She follows with Dr Fam and is on Ibrance 3 weeks on and 1 week off - last dose was 09/24/25. Exam Narrative: Tm 100.1 97.6 94/60 100 24 95% 2.5L Gen - NARD sitting up in bed Chest - bibasilar inspiratory crackles. nml RR CV - tachy, regular. Tele showing sinus tach Abd - Soft, NT/ND, Positive BS Ext - No pedal edema Neuro - Alert and appropriate Psych - Nml mood and affect Skin - Warm and dry. no raches noted Objective Data Vital Signs Vital Signs: Vital Signs - 24 hr 09/30/25 14:46 09/30/25 18:11 09/30/25 19:32 Temperature 98.3 F 100.1 F H Pulse Rate 115 H 124 H 126 H Respiratory Rate 20 18 Blood Pressure 90/61 L 108/65 Pulse Oximetry 94 93 90 Oxygen Delivery Room Air Oxygen Flow Rate 09/30/25 20:01 09/30/25 20:02 09/30/25 20:04 Temperature Pulse Rate 119 H 120 H 117 H Respiratory Rate 15 19 17 Blood Pressure 125/77 125/77 Pulse Oximetry 93 97 98 Oxygen Delivery Oxygen Flow Rate 09/30/25 20:15 09/30/25 20:16 09/30/25 20:30 Temperature Pulse Rate 115 H 115 H Respiratory Rate 18 28 H Blood Pressure 129/74 141/76 H Pulse Oximetry 97 97 98 Oxygen Delivery Oxygen Flow Rate 09/30/25 20:31 09/30/25 21:11 09/30/25 21:15 Temperature Pulse Rate 115 H 121 H Respiratory Rate 29 H 34 H Blood Pressure 142/85 H 135/85 Pulse Oximetry 98 95 95 Oxygen Delivery Oxygen Flow Rate 09/30/25 21:31 09/30/25 21:45 09/30/25 22:00 Temperature Pulse Rate 111 H 115 H 115 H Respiratory Rate 34 H 25 H 24 H Blood Pressure 135/72 149/72 H 138/73 Pulse Oximetry 96 95 Oxygen Delivery Oxygen Flow Rate 09/30/25 22:26 09/30/25 22:30 09/30/25 23:01 Temperature Pulse Rate 109 H 103 H Respiratory Rate 21 H Blood Pressure 122/70 120/74 128/68 Pulse Oximetry 95 94 95 Oxygen Delivery Oxygen Flow Rate 09/30/25 23:46 10/01/25 00:16 10/01/25 00:40 Temperature Pulse Rate 102 H 102 H Respiratory Rate 25 H 25 H Blood Pressure 124/65 114/66 Pulse Oximetry 95 94 95 Oxygen Delivery Nasal Cannula Oxygen Flow Rate 3 10/01/25 00:46 10/01/25 01:01 10/01/25 01:16 Temperature Pulse Rate 101 H 104 H 103 H Respiratory Rate 24 H 23 H 26 H Blood Pressure 116/69 109/66 99/61 L Pulse Oximetry 94 93 93 Oxygen Delivery Oxygen Flow Rate 10/01/25 01:31 10/01/25 01:47 10/01/25 02:01 Temperature Pulse Rate 103 H 99 103 H Respiratory Rate 23 H 23 H 23 H Blood Pressure 98/61 L 107/67 91/63 L Pulse Oximetry 94 94 94 Oxygen Delivery Oxygen Flow Rate 10/01/25 02:16 10/01/25 02:28 10/01/25 02:31 Temperature 98.3 F Pulse Rate 101 H 105 H Respiratory Rate 24 H 29 H Blood Pressure 110/58 L 106/73 Pulse Oximetry 94 95 Oxygen Delivery Oxygen Flow Rate 10/01/25 02:46 10/01/25 03:01 10/01/25 03:16 Temperature Pulse Rate 100 105 H 102 H Respiratory Rate 22 H 31 H 22 H Blood Pressure 103/63 117/61 124/64 Pulse Oximetry 95 96 97 Oxygen Delivery Oxygen Flow Rate 10/01/25 03:31 10/01/25 04:03 10/01/25 05:03 Temperature 98.4 F Pulse Rate 107 H 114 H Respiratory Rate 22 H 20 Blood Pressure 128/75 116/64 Pulse Oximetry 94 97 97 Oxygen Delivery Nasal Cannula Oxygen Flow Rate 3 10/01/25 06:00 10/01/25 07:50 Temperature 97.6 F Pulse Rate 106 H 100 Respiratory Rate 24 H Blood Pressure 94/60 L Pulse Oximetry 95 Oxygen Delivery Oxygen Flow Rate Intake/Output Intake/Output: Intake & Output 09/28/25 09/29/25 09/30/25 10/01/25 23:59 23:59 23:59 23:59 Intake Total 2049 1149 Balance 2049 1149 Meds/Results Medications: Active Medications Generic Name Dose Route Start Last Admin Trade Name Freq PRN Reason Stop Dose Admin Acetaminophen 650 mg 09/30/25 22:54 10/01/25 04:53 Acetaminophen 325 Mg Tablet PO 650 mg Q4H PRN Administration Mild Pain (1-3) or Fever Albuterol/Ipratropium 3 ml 10/01/25 08:00 10/01/25 07:59 Ipratropium 0.5 Mg/Albuterol Sulfate 2.5 Mg (Base) Ampul.Neb 3 Ml INHALATION Not Given Q6HRT JUANJOSE Budesonide 0.5 mg 10/01/25 08:00 10/01/25 07:59 Budesonide Respule Neb 0.5 Mg/2 Ml Amp INHALATION Not Given Q12HRT [facility] Calcium Carbonate 500 mg 10/01/25 09:00 10/01/25 08:39 Calcium Carbonate (Oscal) 500 Mg Tablet PO 500 mg QAM JUANJOSE Administration Cyanocobalamin 1,000 mcg 10/01/25 09:00 10/01/25 08:39 Cyanocobalamin 1,000 Mcg Tablet PO 1,000 mcg QAM JUANJOSE Administration Dicyclomine HCl 20 mg 10/01/25 09:00 10/01/25 08:32 Dicyclomine Hcl 10 Mg Capsule PO 20 mg TID JUANJOSE Administration Ferrous Sulfate 325 mg 10/01/25 09:00 10/01/25 08:39 Ferrous Sulfate 325 Mg Tablet BY MOUTH 325 mg DAILY JUANJOSE Administration Folic Acid 0.4 mg 10/01/25 09:00 10/01/25 08:39 Folic Acid 0.4 Mg Tablet PO 0.4 mg QAM JUANJOSE Administration Gabapentin 800 mg 10/01/25 09:00 10/01/25 08:39 Gabapentin 400 Mg Capsule PO 800 mg BID JUANJOSE Administration Guaifenesin 1,200 mg 10/01/25 09:00 10/01/25 08:39 Guaifenesin 12 Hr 600 Mg Tabcr PO 1,200 mg Q12HR JUANJOSE Administration Cefepime HCl 2 gm/ Sodium 50 mls @ 100 mls/hr 10/01/25 14:00 Chloride IVPB Q8HR JUANJOSE Vancomycin HCl 1,500 mg in 500 mls @ 250 mls/hr 10/01/25 16:00 Vancomycin 1,500 Mg/Ns 500 Ml IVPB Q18H JUANJOSE Levothyroxine Sodium 75 mcg 10/01/25 10:30 Levothyroxine Sodium 75 Mcg Tablet PO DAILY@0630 [facility] Loperamide HCl 2 mg 10/01/25 03:47 10/01/25 08:39 Loperamide Hcl 2 Mg Capsule PO 2 mg PRN PRN Administration Diarrhea Megestrol Acetate 200 mg 10/01/25 09:00 10/01/25 08:38 Megestrol Acetate (*Chemo) Oral Susp 40 Mg/Ml Ud PO 200 mg QAM JUANJOSE Administration Ondansetron HCl 4 mg 09/30/25 22:54 Ondansetron Inj 4 Mg/2 Ml Vial IV PUSH Q4H PRN Nausea Primidone 50 mg 10/01/25 21:00 Primidone 50 Mg Tablet PO HS JUANJOSE Ropinirole HCl 0.25 mg 10/01/25 21:00 Ropinirole Hcl 0.25 Mg Tablet PO HS JUANJOSE Warfarin Sodium 4 mg 10/01/25 17:00 Warfarin (*Pbkc) 2 Mg Tablet PO DAILY@1700 [facility] Radiology Results: ITS Impressions Chest/Abdomen/Pelvis CT 09/30/25 21:32 IMPRESSION: 1. Postsurgical changes of right mastectomy. Extensive, predominantly osteoblastic metastatic lesions of the skeletal system are seen. Fractures of anterior right fifth and sixth ribs, possible pathological fractures. 2. Small right pleural effusion. 3. No acute findings noted in the abdomen and pelvis. Chest X-Ray 10/01/25 06:43 IMPRESSION: 1. No change or acute cardiopulmonary findings. Labs Labs: Laboratory Results - last 24 hr 09/30/25 09/30/25 09/30/25 18:10 18:10 18:10 WBC 1.2 L* RBC 2.73 L Hgb 9.6 L Hct 29.3 L MCV 107.3 H MCH 35.2 H MCHC 32.8 RDW 22.2 H Plt Count 116 L MPV 10.7 H Immature Gran % (Auto) Not Reportable Neut % (Auto) Not Reportable Lymph % (Auto) Not Reportable Summers % (Auto) Not Reportable Eos % (Auto) Not Reportable Baso % (Auto) Not Reportable Lymph # (Auto) Not Reportable [place]mers # (Auto) Not Reportable Eos # (Auto) Not Reportable Baso # (Auto) Not Reportable Abs Immat Gran (auto) Not Reportable Absolute Neuts (auto) Not Reportable Absolute Nucleated RBC Not Reportable Total Counted 100 Neutrophils % (Manual) 41 L Band Neutrophils % 18 H Lymphocytes % (Manual) 19 Monocytes % (Manual) 19 H Basophils % (Manual) 2 H Metamyelocytes % 1 Nucleated RBC % Not Reportable Abs Neuts (Manual) 0.70 L Abs Lymphs (Manual) 0.22 L Abs Monocytes (Manual) 0.22 Abs Basophils (Manual) 0.02 Nucleated RBCs 11 Smudge Cells Few Platelet Estimate Decreased % Immature Plt Fraction 6.1 Polychromasia Occasional Hypochromasia 1+ Anisocytosis 1+ Macrocytosis Occasional Schistocytes None seen PT 42.8 H INR 4.7 APTT 72.9 H Sodium 133 L Potassium 4.2 Chloride 103 Carbon Dioxide 22 Anion Gap 8 BUN 13 D Creatinine 0.83 Estim Creat Clear Calc 53 Estimated GFR > 60 Glucose 111 H Lactic Acid 1.9 Calcium 8.5 Magnesium 1.6 Cancelled Total Bilirubin 1.2 AST 67 H ALT 41 H Alkaline Phosphatase 178 H Lactate Dehydrogenase Troponin I < 0.012 Cancelled Total Protein 7.5 Albumin 4.2 Lipase 14 L Urine Color Urine Appearance Urine pH Ur Specific [place] Urine Protein Urine Glucose (UA) Urine Ketones Ur Blood (Man) Urine Nitrate Urine Bilirubin Urine Urobilinogen Add Ur Microanalysis Leukocyte Esterase Rfl Urine RBC Urine WBC Ur Squamous Epith Cells Urine Bacteria Urine Casts Influenza A (RT-PCR) Negative Influenza B (RT-PCR) Negative RSV (RT-PCR) Negative SARS-CoV-2 RNA (RT-PCR) Negative 10/01/25 10/01/25 10/01/25 00:36 06:02 07:24 WBC 0.8 L* RBC 2.19 L Hgb 7.9 L Hct 23.8 L MCV 108.7 H MCH 36.1 H MCHC 33.2 RDW 22.5 H Plt Count 108 L MPV 11.6 H Immature Gran % (Auto) Neut % (Auto) Lymph % (Auto) [place] % (Auto) Eos % (Auto) Baso % (Auto) Lymph # (Auto) [place] # (Auto) Eos # (Auto) Baso # (Auto) Abs Immat Gran (auto) Absolute Neuts (auto) Absolute Nucleated RBC Total Counted Neutrophils % (Manual) Band Neutrophils % Lymphocytes % (Manual) Monocytes % (Manual) Basophils % (Manual) Metamyelocytes % Nucleated RBC % Abs Neuts (Manual) Abs Lymphs (Manual) Abs Monocytes (Manual) Abs Basophils (Manual) Nucleated RBCs Smudge Cells Platelet Estimate % Immature Plt Fraction Polychromasia Hypochromasia Anisocytosis Macrocytosis Schistocytes PT 55.6 H D INR 6.7 H* APTT Sodium 131 L Potassium 3.7 Chloride 106 Carbon Dioxide 21 L Anion Gap 4 BUN 14 Creatinine 0.73 Estim Creat Clear Calc 62 Estimated GFR > 60 Glucose 101 Lactic Acid Calcium 7.5 L Magnesium Total Bilirubin AST ALT Alkaline Phosphatase Lactate Dehydrogenase 266 H Troponin I Total Protein Albumin Lipase Urine Color Yellow Urine Appearance Clear Urine pH 6.0 Ur Specific [place] > 1.045 H Urine Protein Trace Urine Glucose (UA) Negative Urine Ketones Trace H Ur Blood (Man) Negative Urine Nitrate Negative Urine Bilirubin Negative Urine Urobilinogen 1.0 Add Ur Microanalysis Reviewed Leukocyte Esterase Rfl Negative Urine RBC 0-2 Urine WBC 11-20 H Ur Squamous Epith Cells None seen Urine Bacteria None seen Urine Casts 0-2 Influenza A (RT-PCR) Influenza B (RT-PCR) RSV (RT-PCR) SARS-CoV-2 RNA (RT-PCR)
[2025-10-01] MEDS: PHYTONADIONE 5 MG TABLET PO (10:55)
[2025-10-01] MEDS: LEVOTHYROXINE SODIUM 75 MCG TABLET PO (10:56)
[2025-10-01 11:25] LABS: NT Pro B Type Natriuretic Pept 3400 pg/mL (19.9-100)
--- NOTE | 2025-10-01 12:25 | WPDIDCN ---
Assessment and Plan Assessment and plan (1) Fever and neutropenia: Code(s): D70.9 - Neutropenia, unspecified; R50.81 - Fever presenting with conditions classified elsewhere Status: Acute Assessment and Plan: ASSESSMENT: 1. Low-grade fever 2. Neutropenia 3. Metastatic breast cancer 4. Bony metastases PLAN: -Await blood and urine cultures -Continue Cefepime -If patient febrile again, add Vancomycin IV -Follow CBC and renal function -Continue supportive measures Discussed with patient and . All questions answered HPI Data of Consult Date/Time: 10/01/25 12:25 Requesting Physician: Ayo Jackson MD Primary Care Provider: Ankit Villafuerte, Consult Narrative Reason for consult: Neutropenia Narrative: Damien Pulido is a 75 year old female with history of metastatic breast cancer on treatment who developed low-grade fever to 100.1F yesterday. She was noted to have leukopenia which has now decreased to WBC 0.8. CXR shows chronic RLL scarring and known small pleural effusion. Patient reports chronic, unchanged shortness of breath. No current N/V or diarrhea. Blood and urine cultures are pending Review of Systems Review of Systems: All systems reviewed & are unremarkable except as noted in HPI and below PMFSH Past Medical History Medical History (Updated 10/01/25 @ 09:26 by James Jackson MD) Hx of pulmonary embolus Hypertension History of radiation therapy 10 treatments Bone cancer hip Intractable nausea and vomiting Restless leg syndrome Chronic anticoagulation Superior vena cava thrombosis Cervical cancer status post radiation and chemotherapy Degenerative joint disease Chronic obstructive pulmonary disease suspected though no formal diagnosis per patient report Allergies Exocrine pancreatic insufficiency Osteoporosis due to aromatase inhibitor Hypothyroidism, unspecified 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 Cintron H/O total hysterectomy History of open reduction and internal fixation (ORIF) procedure repair right wrist fracture History of arthroscopy of both knees History of cholecystectomy History of appendectomy History of right mastectomy (11/2016) Family History Family History Father Family history of diabetes mellitus in first degree relative Family history of congestive heart failure Mother Family history of malignant neoplasm of breast in first degree relative Other Family history of malignant neoplasm Social History Social History (Updated 10/01/25 @ 08:39 by Kinjal Boyd APRN) Social History: She has 2 children and is retired Surrogate medical decision maker: Charly Pulido, spouse. Code status: FULL CODE. Smoking status: Never smoker Second hand tobacco smoke exposure: No Alcohol intake: never Alcohol use details: Social alcohol use in the past, non since 2013. Substance use: never Substance use type: does not use Do You Feel Safe in your Home?: Yes Lack of Transportation: No Lack of Food: Never True Current Housing: I Have Housing Concerned About Future Housing: No Difficulty Paying Gas/Electric Bills: No Difficulty Paying for Meds: No Currently Unemployed: No Education: Associate Degree Difficulty w/ Childcare or Family Care: No Living arrangements: with family Additional living arrangements comments: [facility]USB Spiritual care concerns: No Meds Home Medications and Allergies Home Medications ?Medication ?Instructions ?Recorded ?Confirmed ?Type gabapentin 800 mg tablet 800 mg PO BID 05/20/23 10/01/25 History loratadine 10 mg tablet (Claritin) 10 mg PO DAILY 11/25/23 10/01/25 History ascorbic acid (vitamin C) 1,000 mg 1 g PO DAILY 03/19/25 10/01/25 History capsule calcium 600 mg capsule 600 mg PO DAILY 03/19/25 10/01/25 History geriatric multivitamin-min 1 tablet PO DAILY 03/19/25 10/01/25 History guaifenesin 1,200 mg tablet, 1,200 mg PO BID 03/30/25 10/01/25 History extended release 12 hr (Mucinex) warfarin 2 mg tablet 4 mg PO DAILY 03/30/25 10/01/25 History levothyroxine 75 mcg tablet 75 mcg PO QAM #90 tabs 04/27/25 10/01/25 Rx budesonide 0.5 mg/2 mL suspension 0.5 mg (2 mL) inhalation DAILY #60 05/06/25 10/01/25 Rx for nebulization mL ipratropium bromide 0.02 % 2.5 ml inhalation Q6H PRN 05/06/25 10/01/25 Rx solution for inhalation shortness of breath or wheezing #300 mL ferrous sulfate 325 mg (65 mg 325 mg PO DAILY 08/20/25 10/01/25 History iron) tablet (Feosol) vitamin B12 1,000 mcg-folic acid 1 tablet sublingual DAILY 08/20/25 10/01/25 History 400 mcg sublingual tablet ondansetron 4 mg disintegrating 4 mg PO Q6H PRN nausea and 08/25/25 10/01/25 Rx tablet vomiting #60 tabs atenolol 25 mg tablet 12.5 mg PO QHS 09/17/25 10/01/25 History albuterol sulfate 0.63 mg/3 mL 0.63 mg inhalation BID PRN 10/01/25 10/01/25 History solution for nebulization shortness of breath or wheezing albuterol sulfate 90 mcg/actuation 2 inh inhalation Q4-6H PRN 10/01/25 10/01/25 History breath activated powder inhaler shortness of breath or wheezing (ProAir RespiClick) dicyclomine 20 mg tablet 20 mg PO TID 10/01/25 10/01/25 History megestrol 400 mg/10 mL (40 mg/mL) 400 mg PO DAILY 10/01/25 10/01/25 History oral suspension palbociclib 125 mg tablet (Ibrance) 125 mg PO DAILY 10/01/25 10/01/25 History primidone 50 mg tablet 50 mg PO HS 10/01/25 10/01/25 History ropinirole 0.25 mg tablet 0.25 mg PO HS 10/01/25 10/01/25 History Allergies Allergy/AdvReac Type Severity Reaction Status Date / Time No Known Allergies Allergy Verified 10/01/25 04:09 Vital Signs Vital Signs - 24 hr 09/30/25 14:46 09/30/25 18:11 09/30/25 19:32 Temperature 98.3 F 100.1 F H Pulse Rate 115 H 124 H 126 H Respiratory Rate 20 18 Blood Pressure 90/61 L 108/65 Pulse Oximetry 94 93 90 Oxygen Delivery Room Air Oxygen Flow Rate 09/30/25 20:01 09/30/25 20:02 09/30/25 20:04 Temperature Pulse Rate 119 H 120 H 117 H Respiratory Rate 15 19 17 Blood Pressure 125/77 125/77 Pulse Oximetry 93 97 98 Oxygen Delivery Oxygen Flow Rate 09/30/25 20:15 09/30/25 20:16 09/30/25 20:30 Temperature Pulse Rate 115 H 115 H Respiratory Rate 18 28 H Blood Pressure 129/74 141/76 H Pulse Oximetry 97 97 98 Oxygen Delivery Oxygen Flow Rate 09/30/25 20:31 09/30/25 21:11 09/30/25 21:15 Temperature Pulse Rate 115 H 121 H Respiratory Rate 29 H 34 H Blood Pressure 142/85 H 135/85 Pulse Oximetry 98 95 95 Oxygen Delivery Oxygen Flow Rate 09/30/25 21:31 09/30/25 21:45 09/30/25 22:00 Temperature Pulse Rate 111 H 115 H 115 H Respiratory Rate 34 H 25 H 24 H Blood Pressure 135/72 149/72 H 138/73 Pulse Oximetry 96 95 Oxygen Delivery Oxygen Flow Rate 09/30/25 22:26 09/30/25 22:30 09/30/25 23:01 Temperature Pulse Rate 109 H 103 H Respiratory Rate 21 H Blood Pressure 122/70 120/74 128/68 Pulse Oximetry 95 94 95 Oxygen Delivery Oxygen Flow Rate 09/30/25 23:46 10/01/25 00:16 10/01/25 00:40 Temperature Pulse Rate 102 H 102 H Respiratory Rate 25 H 25 H Blood Pressure 124/65 114/66 Pulse Oximetry 95 94 95 Oxygen Delivery Nasal Cannula Oxygen Flow Rate 3 10/01/25 00:46 10/01/25 01:01 10/01/25 01:16 Temperature Pulse Rate 101 H 104 H 103 H Respiratory Rate 24 H 23 H 26 H Blood Pressure 116/69 109/66 99/61 L Pulse Oximetry 94 93 93 Oxygen Delivery Oxygen Flow Rate 10/01/25 01:31 10/01/25 01:47 10/01/25 02:01 Temperature Pulse Rate 103 H 99 103 H Respiratory Rate 23 H 23 H 23 H Blood Pressure 98/61 L 107/67 91/63 L Pulse Oximetry 94 94 94 Oxygen Delivery Oxygen Flow Rate 10/01/25 02:16 10/01/25 02:28 10/01/25 02:31 Temperature 98.3 F Pulse Rate 101 H 105 H Respiratory Rate 24 H 29 H Blood Pressure 110/58 L 106/73 Pulse Oximetry 94 95 Oxygen Delivery Oxygen Flow Rate 10/01/25 02:46 10/01/25 03:01 10/01/25 03:16 Temperature Pulse Rate 100 105 H 102 H Respiratory Rate 22 H 31 H 22 H Blood Pressure 103/63 117/61 124/64 Pulse Oximetry 95 96 97 Oxygen Delivery Oxygen Flow Rate 10/01/25 03:31 10/01/25 04:03 10/01/25 05:03 Temperature 98.4 F Pulse Rate 107 H 114 H Respiratory Rate 22 H 20 Blood Pressure 128/75 116/64 Pulse Oximetry 94 97 97 Oxygen Delivery Nasal Cannula Oxygen Flow Rate 3 10/01/25 06:00 10/01/25 07:50 10/01/25 08:00 Temperature 97.6 F Pulse Rate 106 H 100 Respiratory Rate 24 H Blood Pressure 94/60 L Pulse Oximetry 95 95 Oxygen Delivery Nasal Cannula Oxygen Flow Rate 3 10/01/25 08:00 10/01/25 10:00 10/01/25 11:32 Temperature Pulse Rate 108 H 107 H Respiratory Rate Blood Pressure Pulse Oximetry 98 Oxygen Delivery Nasal Cannula Oxygen Flow Rate 3 10/01/25 11:56 Temperature 98.7 F Pulse Rate 99 Respiratory Rate 24 H Blood Pressure 116/58 L Pulse Oximetry 96 Oxygen Delivery Oxygen Flow Rate Exam Narrative: Gen: fatigued Cor: no chest pain Pulm: mild tachypnea Abd: no pain Lines: Results Labs 10/01/25 11:53 10/01/25 06:02 Labs: Short CBC 09/30/25 10/01/25 Range/Units 18:10 06:02 WBC 1.2 L* 0.8 L* (4.5-10.0) K/mm3 Hgb 9.6 L 7.9 L (12.0-15.0) g/dL Hct 29.3 L 23.8 L (37.0-47.0) % Plt Count 116 L 108 L (150-375) k/mm3 BMP 09/30/25 10/01/25 18:10 06:02 Sodium 133 L 131 L Potassium 4.2 3.7 Chloride 103 106 Carbon Dioxide 22 21 L BUN 13 D 14 Creatinine 0.83 0.73 Glucose 111 H 101 Calcium 8.5 7.5 L Cardiac Enzymes 09/30/25 09/30/25 Range/Units 18:10 18:10 Troponin I < 0.012 Cancelled (0.000-0.034) ng/mL Liver Function 09/30/25 Range/Units 18:10 Total Bilirubin 1.2 (0.2-1.3) mg/dL AST 67 H (14-36) U/L ALT 41 H (6-35) U/L Alkaline Phosphatase 178 H (38-126) U/L Albumin 4.2 (3.5-5.1) g/dL Urine 10/01/25 Range/Units 00:36 Urine Color Yellow (Yellow) Urine Appearance Clear (Clear) Urine pH 6.0 (5.0-9.0) Ur Specific [place] > 1.045 H (1.001-1.035) Urine Protein Trace (Negative) mg/dL Urine Glucose (UA) Negative (Negative) mg/dL
[2025-10-01 12:42] LABS: Hematocrit 24.9 % (37.0-47.0); Hemoglobin 7.9 g/dL (12.0-15.0)
[2025-10-01] MEDS: IPRATROPIUM 0.5 MG/ALBUTEROL SULFATE 2.5 MG (BASE) AMPUL.NEB 3 ML INHALATION ×2 (13:02→19:46)
[2025-10-01] MEDS: VANCOMYCIN 1,500 MG/NS 500 ML 1,500 MG/500 ML BAG 250 MG IVPB (15:30)
[2025-10-01 18:19] LABS: Hematocrit 24.6 % (37.0-47.0); Hemoglobin 8.0 g/dL (12.0-15.0)
[2025-10-01] MEDS: BUDESONIDE RESPULE NEB 0.5 MG/2 ML AMP INHALATION (19:46)
[2025-10-01] MEDS: PRIMIDONE 50 MG TABLET PO (21:11)
[2025-10-02] VITALS (26 sets, daily range): BP systolic 90–137; BP diastolic 40–71; PULSE 58–131; RESP 14–28; TEMP 36.4–37.3; O2SAT 91–99
[2025-10-02 00:36] LABS: Hematocrit 22.0 % (37.0-47.0); Hemoglobin 7.1 g/dL (12.0-15.0)
[2025-10-02] MEDS: IPRATROPIUM 0.5 MG/ALBUTEROL SULFATE 2.5 MG (BASE) AMPUL.NEB 3 ML INHALATION ×4 (02:02→20:01)
[2025-10-02 04:44] LABS: Hematocrit 21.3 % (37.0-47.0); Immature Platelet Fraction Pct 5.9 % (0.9-11.2); Mean Corpuscular HGB Conc 32.4 g/dl (32-36); Mean Corpuscular Hemoglobin 35.4 pg (26-34); Mean Corpuscular Volume 109.2 fl (80-100); Platelet Count Result 119 k/mm3 (150-375); Red Blood Count 1.95 M/mm3 (4.2-5.4); White Blood Count 3.0 K/mm3 (4.5-10.0)
[2025-10-02 05:01] LABS: Hemoglobin 6.9 g/dL (12.0-15.0); INR 2.8; Prothrombin Time 29.1 Seconds (11.1-14.7)
[2025-10-02 05:13] LABS: Alanine Aminotransferase 23 U/L (6-35); Albumin Level 2.9 g/dL (3.5-5.1); Alkaline Phosphatase 119 U/L (38-126); Anion Gap 4 mmol/L (4-12); Aspartate Amino Transferase 35 U/L (14-36); Bilirubin,Total 1.2 mg/dL (0.2-1.3); Blood Urea Nitrogen 17 mg/dL (7-17); Calcium 7.9 mg/dL (8.4-10.2); Carbon Dioxide 22 mmol/L (22-30); Chloride 107 mmol/L (98-107); Estimated CRCL calculation 60 ml/min; Estimated Glomerular Filt Rate > 60; Glucose 131 mg/dL (65-110); Potassium 3.2 mmol/L (3.4-5.0); Sodium 133 mmol/L (137-145); Total Protein 5.7 g/dL (6.3-8.2)
[2025-10-02 05:43] LABS: Band Neutrophils Percent 2 % (0-6); Lymphocytes Absolute Manual 0.30 K/mm3 (1.1-4.5); Lymphocytes Percent Manual 10.0 % (18-44); Monocytes Absolute Manual 0.12 K/mm3 (0.1-0.90); Monocytes Percent Manual 4 % (3-9); Neutrophils Absolute Manual 2.58 K/mm3 (1.3-6.7); Neutrophils Percent Manual 84 % (46-73); Total Cells Counted 50
[2025-10-02 05:44] LABS: Anisocytosis 1+; Hypochromasia 1+; Macrocytosis Occasional (NORMAL); Schistocytes None Seen; Smudge Cells PRESENT
[2025-10-02] MEDS: CEFEPIME 2 GM in SODIUM CHLORIDE 0.9% IV 50 ML 100 ML IVPB ×3 (06:22→21:03)
[2025-10-02] MEDS: LEVOTHYROXINE SODIUM 75 MCG TABLET PO (06:23)
[2025-10-02] MEDS: DICYCLOMINE HCL 10 MG CAPSULE 20 MG PO ×3 (06:23→21:04)
[2025-10-02] MEDS: BUDESONIDE RESPULE NEB 0.5 MG/2 ML AMP INHALATION ×2 (08:23→20:01)
[2025-10-02] MEDS: POTASSIUM CHLORIDE 20 MEQ PACKET (FOR LIQUID) 40 MEQ PO (09:02)
[2025-10-02] MEDS: CALCIUM CARBONATE (OSCAL) 500 MG TABLET PO (09:03)
[2025-10-02] MEDS: VANCOMYCIN 1,500 MG/NS 500 ML 1,500 MG/500 ML BAG 250 MG IVPB (09:03)
[2025-10-02] MEDS: guaiFENesin 12 HR 600 MG TABCR 1200 MG PO ×2 (09:03→20:33)
[2025-10-02] MEDS: FOLIC ACID 0.4 MG TABLET PO (09:03)
[2025-10-02] MEDS: CYANOCOBALAMIN 1,000 MCG TABLET 1000 MCG PO (09:03)
[2025-10-02] MEDS: MEGESTROL ACETATE (*CHEMO) ORAL SUSP 40 MG/ML UD 200 MG PO (09:03)
[2025-10-02] MEDS: FERROUS SULFATE 325 MG TABLET BY MOUTH (09:03)
[2025-10-02] MEDS: GABAPENTIN 400 MG CAPSULE 800 MG PO ×2 (09:03→20:34)
[2025-10-02 10:05] LABS: IFOB Positive Control Positive; Immunochemical Fecal Occult Bl Negative (N)
[2025-10-02 10:31] LABS: MRSA (PCR) NOT DETECTED (NOT DETECTE)
[2025-10-02 10:40] LABS: Toxigenic C. Diff NEGATIVE (NEGATIVE)
[2025-10-02 12:30] LABS: Hematocrit 22.3 % (37.0-47.0); Hemoglobin 7.1 g/dL (12.0-15.0)
[2025-10-02 13:03] LABS: Magnesium 1.5 mg/dL (1.6-2.3); Potassium 3.9 mmol/L (3.4-5.0)
--- NOTE | 2025-10-02 14:57 | PM.IMPN ---
Progress Note: A&P Assessment and Plan (1) Hypoxia: Code(s): R09.02 - Hypoxemia Status: Acute Assessment and Plan: Patient with cough and now hypoxia. CXR clear on admission. CTA chest showing no acute pulmonary lesions but small right pleural effusion. MRSA nasal swab negative. On Coumadin with therapeutic INR making PE less likely. Patient on 2.5L currently. She is life long nonsmoker and no hx of asthma but has hx of XRT. On inhalers at home and follows with pulmonology but diagnosis is in question (bronchiectasis from unk cause). Received 3L IV fluids in ED. Repeat CXR showing bibasilar scarring and bronchiectasis right midling post-XRT. BNP 3400. Able to wean down to 1.5L Sputum ordered. BP soft but consider trial of Lasix but feel CHF less likely. Check Echo. (2) Pancytopenia: Code(s): D61.818 - Other pancytopenia Status: Acute Assessment and Plan: Patient with metastatic breast CA on Ibrance for 3 weeks with last dose 09/24/25 WBC 1.2K (ANC 708) -> 0.8K -> 3K Hgb 9.6 and dropped to 7 range and remaining stable. Plt 116K -> 108K -> 119K CXR clear. CT Ch/A/P showing no acute findings. UA showing 11-20 WBC, negative LE/Nit Pancytopenia related to Ibrance; may have reached her muriel Continue to monitor cbc with diff daily No longer having fevers. She was placed in protective isolation Urine, Stool and blood cultures are pending She was empirically started on vanco and cefepime ID and Heme/Onc consulted and appreciate their input. Follow up on Cx. (3) Breast cancer metastasized to bone: Qualifiers: Laterality: unspecified laterality Qualified Code(s): C50.919 - Malignant neoplasm of unspecified site of unspecified female breast; C79.51 - Secondary malignant neoplasm of bone Code(s): C50.919 - Malignant neoplasm of unspecified site of unspecified female breast; C79.51 - Secondary malignant neoplasm of bone Status: Acute Assessment and Plan: Patient with metastatic breast CA recently started on Ibrance. S/P right mastectomy. Mets to bone with CT showing extensive, predominantly osteoblastic metastatic lesions of the skeletal system with fractures of anterior right fifth and sixth ribs, possible pathological fractures. Heme/Onc consult (4) Hx of pulmonary embolus: Code(s): Z86.711 - Personal history of pulmonary embolism Status: Acute Assessment and Plan: Patient is on Coumadin for hx of PEs about 10 years ago. INR 4.7 -> 6.7 so given a small dose of oral VitK given the drop in Hgb -> 2.8 Hgb has dropped to 7 range and stable. Serial HH. Daily INR. (5) Diarrhea: Code(s): R19.7 - Diarrhea, unspecified Status: Acute Assessment and Plan: Patient with diarrhea prior to admission but has improved Probably related to Ibrance since known side effect Follow (6) COPD (chronic obstructive pulmonary disease) with acute bronchitis: Code(s): J44.0 - Chronic obstructive pulmonary disease with (acute) lower respiratory infection; J20.9 - Acute bronchitis, unspecified Status: Acute Assessment and Plan: Patient presumably has bronchiectasis (not COPD) On budesonide and albuterol on admission which was continued Continue duo nebs for now (7) Hypertension: Code(s): I10 - Essential (primary) hypertension Status: Acute Assessment and Plan: BP soft and atenolol held BP still soft at times. Now tachycardic. Could be rebound off of beta-macy. Resume low dose atenolol (8) Hypothyroidism, unspecified: Qualifiers: Hypothyroidism type: unspecified Qualified Code(s): E03.9 - Hypothyroidism, unspecified Code(s): E03.9 - Hypothyroidism, unspecified Status: Acute Assessment and Plan: TSH 11 in Jul. Continue with levothyroxine Repeat TSH Plan DVT Prophylaxis - INR supratherapeutic Code status - full Subjective Date/time seen: 10/02/25 14:57 Interval history: 75yo female with metastatic breast CA, hx of PE on Coumadin and HTN here for nausea, vomiting and weakness. Feel short of breath. No chest pain. Cough occasionally productive green-yellow sputum. Cough is unchanged. Not eating well. She follows with Dr Fam and is on Ibrance 3 weeks on and 1 week off - last dose was 09/24/25. Exam Narrative: AF 98.1 118/71 58 14 97% 1.5L Gen - NARD sitting up in bed Chest - bibasilar inspiratory crackles scattered end-expiratory wheezes. CV - tachy, regular. Tele showing sinus tach Abd - Soft, NT/ND, Positive BS Ext - No pedal edema. Negative Homans sign. Negative cords Psych - Nml mood and affect Skin - Warm and dry. Objective Data Vital Signs Vital Signs: Vital Signs - 24 hr 10/01/25 15:16 10/01/25 15:50 10/01/25 16:00 Temperature 98.5 F Pulse Rate 123 H 120 H Respiratory Rate 28 H Blood Pressure 120/56 L Pulse Oximetry 95 96 Oxygen Delivery Nasal Cannula Oxygen Flow Rate 2 10/01/25 18:00 10/01/25 19:46 10/01/25 19:46 Temperature Pulse Rate 127 H 117 H Respiratory Rate 22 H Blood Pressure Pulse Oximetry 93 Oxygen Delivery Nasal Cannula Oxygen Flow Rate 2 10/01/25 20:00 10/01/25 20:00 10/01/25 20:01 Temperature 98.9 F Pulse Rate 91 135 H 134 H Respiratory Rate 28 H 22 H Blood Pressure 114/64 Pulse Oximetry 91 Oxygen Delivery Oxygen Flow Rate 10/01/25 21:10 10/01/25 22:00 10/02/25 00:00 Temperature 98.9 F Pulse Rate 128 H 131 H Respiratory Rate 28 H Blood Pressure 90/40 L Pulse Oximetry 96 96 Oxygen Delivery Nasal Cannula Oxygen Flow Rate 2 10/02/25 00:00 10/02/25 00:10 10/02/25 02:00 Temperature Pulse Rate 124 H 113 H Respiratory Rate Blood Pressure Pulse Oximetry 97 Oxygen Delivery Nasal Cannula Oxygen Flow Rate 2 10/02/25 02:03 10/02/25 02:08 10/02/25 04:00 Temperature Pulse Rate 103 H 108 H 117 H Respiratory Rate 16 16 Blood Pressure Pulse Oximetry Oxygen Delivery Oxygen Flow Rate 10/02/25 04:00 10/02/25 04:20 10/02/25 06:00 Temperature 99.2 F Pulse Rate 120 H 114 H Respiratory Rate 28 H Blood Pressure 100/61 Pulse Oximetry 93 93 Oxygen Delivery Nasal Cannula Oxygen Flow Rate 2 10/02/25 07:54 10/02/25 08:00 10/02/25 08:00 Temperature 98.1 F Pulse Rate 111 H 119 H Respiratory Rate 20 Blood Pressure 109/54 L Pulse Oximetry 97 98 Oxygen Delivery Nasal Cannula Oxygen Flow Rate 2 10/02/25 08:24 10/02/25 08:24 10/02/25 08:30 Temperature Pulse Rate 118 H 116 H Respiratory Rate 20 20 Blood Pressure Pulse Oximetry 98 Oxygen Delivery Nasal Cannula Oxygen Flow Rate 1.5 10/02/25 10:00 10/02/25 11:39 10/02/25 12:00 Temperature Pulse Rate 119 H 125 H Respiratory Rate Blood Pressure Pulse Oximetry 93 Oxygen Delivery Nasal Cannula Oxygen Flow Rate 1.5 10/02/25 12:26 10/02/25 13:10 Temperature 98.1 F Pulse Rate 113 H 58 L Respiratory Rate 18 14 Blood Pressure 118/71 Pulse Oximetry 97 Oxygen Delivery Oxygen Flow Rate Intake/Output Intake/Output: Intake & Output 09/29/25 09/30/25 10/01/25 10/02/25 23:59 23:59 23:59 23:59 Intake Total 2049 2209 410 Output Total 400 300 Balance 2049 1809 110 Meds/Results Medications: Active Medications Generic Name Dose Route Start Last Admin Trade Name Freq PRN Reason Stop Dose Admin Acetaminophen 650 mg 09/30/25 22:54 10/01/25 04:53 Acetaminophen 325 Mg Tablet PO 650 mg Q4H PRN Administration Mild Pain (1-3) or Fever Albuterol/Ipratropium 3 ml 10/01/25 08:00 10/02/25 13:09 Ipratropium 0.5 Mg/Albuterol Sulfate 2.5 Mg (Base) Ampul.Neb 3 Ml INHALATION 3 ml Q6HRT JUANJOSE Administration Budesonide 0.5 mg 10/01/25 08:00 10/02/25 08:23 Budesonide Respule Neb 0.5 Mg/2 Ml Amp INHALATION 0.5 mg Q12HRT JUANJOSE Administration Calcium Carbonate 500 mg 10/01/25 09:00 10/02/25 09:03 Calcium Carbonate (Oscal) 500 Mg Tablet PO 500 mg QAM JUANJOSE Administration Cyanocobalamin 1,000 mcg 10/01/25 09:00 10/02/25 09:03 Cyanocobalamin 1,000 Mcg Tablet PO 1,000 mcg QAM JUANJOSE Administration Dicyclomine HCl 20 mg 10/01/25 14:00 10/02/25 06:23 Dicyclomine Hcl 10 Mg Capsule PO 20 mg Q8HR JUANJOSE Administration Ferrous Sulfate 325 mg 10/01/25 09:00 10/02/25 09:03 Ferrous Sulfate 325 Mg Tablet BY MOUTH 325 mg DAILY JUANJOSE Administration Folic Acid 0.4 mg 10/01/25 09:00 10/02/25 09:03 Folic Acid 0.4 Mg Tablet PO 0.4 mg QAM JUANJOSE Administration Gabapentin 800 mg 10/01/25 21:00 10/02/25 09:03 Gabapentin 400 Mg Capsule PO 800 mg Q12HR JUANJOSE Administration Guaifenesin 1,200 mg 10/01/25 09:00 10/02/25 09:03 Guaifenesin 12 Hr 600 Mg Tabcr PO 1,200 mg Q12HR JUANJOSE Administration Cefepime HCl 2 gm/ Sodium 50 mls @ 100 mls/hr 10/01/25 14:00 10/02/25 06:52 Chloride IVPB Infused Q8HR JUANJOSE Infusion Vancomycin HCl 1,500 mg in 500 mls @ 250 mls/hr 10/01/25 16:00 10/02/25 09:03 Vancomycin 1,500 Mg/Ns 500 Ml IVPB 250 mls/hr Q18H JUANJOSE Administration Levothyroxine Sodium 75 mcg 10/01/25 10:30 10/02/25 06:23 Levothyroxine Sodium 75 Mcg Tablet PO 75 mcg DAILY@0630 JUANJOSE Administration Megestrol Acetate 200 mg 10/01/25 09:00 10/02/25 09:03 Megestrol Acetate (*Chemo) Oral Susp 40 Mg/Ml Ud PO 200 mg QAM JUANJOSE Administration Ondansetron HCl 4 mg 09/30/25 22:54 Ondansetron Inj 4 Mg/2 Ml Vial IV PUSH Q4H PRN Nausea Primidone 50 mg 10/01/25 21:00 10/01/25 21:11 Primidone 50 Mg Tablet PO 50 mg HS JUANJOSE Administration Ropinirole HCl 0.25 mg 10/01/25 21:00 10/01/25 21:11 Ropinirole Hcl 0.25 Mg Tablet PO 0.25 mg HS JUANJOSE Administration Radiology Results: ITS Impressions Chest/Abdomen/Pelvis CT 09/30/25 21:32 IMPRESSION: 1. Postsurgical changes of right mastectomy. Extensive, predominantly osteoblastic metastatic lesions of the skeletal system are seen. Fractures of anterior right fifth and sixth ribs, possible pathological fractures. 2. Small right pleural effusion. 3. No acute findings noted in the abdomen and pelvis. Chest X-Ray 10/01/25 06:43 IMPRESSION: 1. No change or acute cardiopulmonary findings. Labs Labs: Laboratory Results - last 24 hr 10/01/25 10/02/25 10/02/25 18:11 00:32 04:04 WBC 3.0 L RBC 1.95 L Hgb 8.0 L 7.1 L 6.9 L* Hct 24.6 L 22.0 L 21.3 L MCV 109.2 H MCH 35.4 H MCHC 32.4 RDW 23.0 H Plt Count 119 L MPV 11.1 H Immature Gran % (Auto) Not Reportable Neut % (Auto) Not Reportable Lymph % (Auto) Not Reportable [place] % (Auto) Not Reportable Eos % (Auto) Not Reportable Baso % (Auto) Not Reportable Lymph # (Auto) Not Reportable [place] # (Auto) Not Reportable Eos # (Auto) Not Reportable Baso # (Auto) Not Reportable Abs Immat Gran (auto) Not Reportable Absolute Neuts (auto) Not Reportable Absolute Nucleated RBC Not Reportable Total Counted 50 Neutrophils % (Manual) 84 H Band Neutrophils % 2 Lymphocytes % (Manual) 10.0 L Monocytes % (Manual) 4 Nucleated RBC % Not Reportable Abs Neuts (Manual) 2.58 Abs Lymphs (Manual) 0.30 L Abs Monocytes (Manual) 0.12 Nucleated RBCs 7 Smudge Cells Present Platelet Estimate Decreased Large Platelets Present % Immature Plt Fraction 5.9 Hypochromasia 1+ Anisocytosis 1+ Macrocytosis Occasional Schistocytes None seen PT 29.1 H D INR 2.8 Sodium 133 L Potassium 3.2 L Chloride 107 Carbon Dioxide 22 Anion Gap 4 BUN 17 Creatinine 0.76 Estim Creat Clear Calc 60 Estimated GFR > 60 Glucose 131 H Calcium 7.9 L Magnesium Total Bilirubin 1.2 AST 35 ALT 23 Alkaline Phosphatase 119 Lactate Dehydrogenase 246 Total Protein 5.7 L Albumin 2.9 L Nasal MRSA (PCR) Stl Occult Blood (IFOB) C. difficile (PCR) 10/02/25 10/02/25 09:16 12:25 WBC RBC Hgb 7.1 L Hct 22.3 L MCV MCH MCHC RDW Plt Count MPV Immature Gran % (Auto) Neut % (Auto) Lymph % (Auto) [place] % (Auto) Eos % (Auto) Baso % (Auto) Lymph # (Auto) [place] # (Auto) Eos # (Auto) Baso # (Auto) Abs Immat Gran (auto) Absolute Neuts (auto) Absolute Nucleated RBC Total Counted Neutrophils % (Manual) Band Neutrophils % Lymphocytes % (Manual) Monocytes % (Manual) Nucleated RBC % Abs Neuts (Manual) Abs Lymphs (Manual) Abs Monocytes (Manual) Nucleated RBCs Smudge Cells Platelet Estimate Large Platelets % Immature Plt Fraction Hypochromasia Anisocytosis Macrocytosis Schistocytes PT INR Sodium Potassium 3.9 Chloride Carbon Dioxide Anion Gap BUN Creatinine Estim Creat Clear Calc Estimated GFR Glucose Calcium Magnesium 1.5 L Total Bilirubin AST ALT Alkaline Phosphatase Lactate Dehydrogenase Total Protein Albumin Nasal MRSA (PCR) Not detected Stl Occult Blood (IFOB) Negative C. difficile (PCR) Negative
[2025-10-02] MEDS: atenoloL 12.5 MG TABLET PO (15:12)
[2025-10-02] MEDS: MAGNESIUM SULF 2 GM/WATER 50ML 2 GM/50 ML BAG IVPB (15:49)
[2025-10-02] MEDS: PRIMIDONE 50 MG TABLET PO (20:33)
[2025-10-03] VITALS (25 sets, daily range): BP systolic 93–140; BP diastolic 57–80; PULSE 97–111; RESP 18–20; TEMP 36.3–37.7; O2SAT 92–100
[2025-10-03] MEDS: IPRATROPIUM 0.5 MG/ALBUTEROL SULFATE 2.5 MG (BASE) AMPUL.NEB 3 ML INHALATION ×4 (02:00→20:20)
[2025-10-03 03:13] LABS: Hematocrit 21.4 % (37.0-47.0); Mean Corpuscular HGB Conc 32.2 g/dl (32-36); Mean Corpuscular Hemoglobin 35.4 pg (26-34); Mean Corpuscular Volume 109.7 fl (80-100); Platelet Count Result 122 k/mm3 (150-375); Red Blood Count 1.95 M/mm3 (4.2-5.4); White Blood Count 4.6 K/mm3 (4.5-10.0)
[2025-10-03 03:15] LABS: Hemoglobin 6.9 g/dL (12.0-15.0)
[2025-10-03 03:25] LABS: INR 2.4; Prothrombin Time 25.4 Seconds (11.1-14.7)
[2025-10-03 03:26] LABS: Alanine Aminotransferase 22 U/L (6-35); Albumin Level 3.1 g/dL (3.5-5.1); Alkaline Phosphatase 116 U/L (38-126); Anion Gap 4 mmol/L (4-12); Aspartate Amino Transferase 30 U/L (14-36); Bilirubin,Total 0.6 mg/dL (0.2-1.3); Blood Urea Nitrogen 16 mg/dL (7-17); Calcium 8.8 mg/dL (8.4-10.2); Carbon Dioxide 20 mmol/L (22-30); Chloride 108 mmol/L (98-107); Estimated CRCL calculation 73 ml/min; Estimated Glomerular Filt Rate > 60; Glucose 106 mg/dL (65-110); Magnesium 1.9 mg/dL (1.6-2.3); Potassium 3.5 mmol/L (3.4-5.0); Sodium 132 mmol/L (137-145); Total Protein 6.1 g/dL (6.3-8.2)
[2025-10-03 03:40] LABS: Anisocytosis 1+; Band Neutrophils Percent 7 % (0-6); Basophils Absolute Manual 0.04 K/mm3 (0.0-0.1); Basophils Percent Manual 1 % (0-1); Eosinophils Absolute Manual 0.04 K/mm3 (0.02-0.50); Eosinophils Percent Manual 1 % (0-4); Lymphocytes Absolute Manual 0.23 K/mm3 (1.1-4.5); Lymphocytes Percent Manual 5.0 % (18-44); Monocytes Absolute Manual 0.36 K/mm3 (0.1-0.90); Monocytes Percent Manual 8 % (3-9); Neutrophils Absolute Manual 3.91 K/mm3 (1.3-6.7); Neutrophils Percent Manual 78 % (46-73); Total Cells Counted 100
[2025-10-03 03:41] LABS: Hypochromasia 1+; Macrocytosis Occasional (NORMAL); Polychromasia Occasional; Schistocytes None Seen; Smudge Cells PRESENT
[2025-10-03 03:55] LABS: Thyroid Stimulating Hormone Reflex 47.000 uIU/mL (0.465-4.68)
[2025-10-03] MEDS: VANCOMYCIN 1,500 MG/NS 500 ML 1,500 MG/500 ML BAG 250 MG IVPB ×2 (03:57→17:15)
[2025-10-03 04:25] LABS: Free T4 Free Thyroxine Reflex 0.52 ng/dL (0.78-2.19)
[2025-10-03] MEDS: CEFEPIME 2 GM in SODIUM CHLORIDE 0.9% IV 50 ML 100 ML IVPB ×3 (06:00→22:07)
[2025-10-03] MEDS: LEVOTHYROXINE SODIUM 75 MCG TABLET PO (06:01)
[2025-10-03] MEDS: DICYCLOMINE HCL 10 MG CAPSULE 20 MG PO ×3 (06:01→22:07)
[2025-10-03] MEDS: BUDESONIDE RESPULE NEB 0.5 MG/2 ML AMP INHALATION ×2 (08:06→20:20)
[2025-10-03] MEDS: guaiFENesin 12 HR 600 MG TABCR 1200 MG PO ×2 (09:06→20:15)
[2025-10-03] MEDS: atenoloL 12.5 MG TABLET PO (09:06)
[2025-10-03] MEDS: CALCIUM CARBONATE (OSCAL) 500 MG TABLET PO (09:06)
[2025-10-03] MEDS: CYANOCOBALAMIN 1,000 MCG TABLET 1000 MCG PO (09:06)
[2025-10-03] MEDS: FERROUS SULFATE 325 MG TABLET BY MOUTH (09:07)
[2025-10-03] MEDS: FOLIC ACID 0.4 MG TABLET PO (09:07)
[2025-10-03] MEDS: GABAPENTIN 400 MG CAPSULE 800 MG PO ×2 (09:07→20:14)
[2025-10-03] MEDS: MEGESTROL ACETATE (*CHEMO) ORAL SUSP 40 MG/ML UD 200 MG PO (09:07)
[2025-10-03] MEDS: POTASSIUM/PHOSPHORUS/SODIUM 1.5 GM PACKET 1 PACKET PO (09:11)
[2025-10-03 11:55] LABS: Hematocrit 22.4 % (37.0-47.0); Hemoglobin 7.1 g/dL (12.0-15.0)
[2025-10-03] MEDS: ACETAMINOPHEN 325 MG TABLET 650 MG PO ×2 (13:47→22:39)
--- NOTE | 2025-10-03 15:46 | PM.IMPN ---
Progress Note: A&P Assessment and Plan (1) Hypoxia: Code(s): R09.02 - Hypoxemia Status: Acute Assessment and Plan: Patient with cough and hypoxia. CXR was clear on admission. CTA chest showing no acute pulmonary lesions but small right pleural effusion. MRSA nasal swab negative. On Coumadin with therapeutic INR making PE less likely. Patient was on 2.5L. She is life long nonsmoker and no hx of asthma but has hx of XRT. On inhalers at home and follows with pulmonology but diagnosis is in question (bronchiectasis from unk cause). Received 3L IV fluids in ED. Repeat CXR showing bibasilar scarring and bronchiectasis right midlung post-XRT but no acute findings. BNP 3400. Able to wean down to room air Sputum ordered. BP soft but consider trial of Lasix but feel CHF less likely. Echo ordered. (2) Pancytopenia: Code(s): D61.818 - Other pancytopenia Status: Acute Assessment and Plan: Patient with metastatic breast CA on Ibrance for 3 weeks with last dose 09/24/25 WBC 1.2K (ANC 708) -> 0.8K -> 3K -> Normal WBC Hgb 9.6 and dropped to 7 range and remaining stable. Plt 116K -> 108K -> 119K -> 122K CT Ch/A/P showing no acute findings. UA showing 11-20 WBC, negative LE/Nit Pancytopenia related to Ibrance; she has reached her muriel Continue to monitor cbc with diff daily No longer having fevers. She was placed in protective isolation Urine Cx negative. Sputum, Stool and blood cultures are pending She was empirically started on vanco and cefepime ID and Heme/Onc consulted and appreciate their input. Follow up on Cx. (3) Fever and neutropenia: Code(s): D70.9 - Neutropenia, unspecified; R50.81 - Fever presenting with conditions classified elsewhere Status: Acute Assessment and Plan: As above (4) Hypothyroidism, unspecified: Qualifiers: Hypothyroidism type: unspecified Qualified Code(s): E03.9 - Hypothyroidism, unspecified Code(s): E03.9 - Hypothyroidism, unspecified Status: Acute Assessment and Plan: TSH 11 in Jul. Repeat TSH 47 with low FT4 at 0.52. Continue with levothyroxine but increase to 125mcg daily Repeat TSH in 4-6 weeks. (5) Breast cancer metastasized to bone: Qualifiers: Laterality: unspecified laterality Qualified Code(s): C50.919 - Malignant neoplasm of unspecified site of unspecified female breast; C79.51 - Secondary malignant neoplasm of bone Code(s): C50.919 - Malignant neoplasm of unspecified site of unspecified female breast; C79.51 - Secondary malignant neoplasm of bone Status: Acute Assessment and Plan: Patient with metastatic breast CA recently started on Ibrance. S/P right mastectomy. Mets to bone with CT showing extensive, predominantly osteoblastic metastatic lesions of the skeletal system with fractures of anterior right fifth and sixth ribs, possible pathological fractures. Heme/Onc consult (6) Hx of pulmonary embolus: Code(s): Z86.711 - Personal history of pulmonary embolism Status: Acute Assessment and Plan: Patient is on Coumadin for hx of PEs about 10 years ago. INR 4.7 -> 6.7 so given a small dose of oral VitK given the drop in Hgb -> 2.4 today Hgb has dropped to 7 range and stable. Serial HH. Daily INR. Resume Coumadin when okay with Heme/Onc (7) Diarrhea: Code(s): R19.7 - Diarrhea, unspecified Status: Acute Assessment and Plan: Patient with diarrhea prior to admission but has improved Probably related to Ibrance since known side effect Follow (8) COPD (chronic obstructive pulmonary disease) with acute bronchitis: Code(s): J44.0 - Chronic obstructive pulmonary disease with (acute) lower respiratory infection; J20.9 - Acute bronchitis, unspecified Status: Acute Assessment and Plan: Patient presumably has bronchiectasis (not COPD) On budesonide and albuterol on admission which was continued Continue duo nebs for now (9) Hypertension: Code(s): I10 - Essential (primary) hypertension Status: Acute Assessment and Plan: BP soft and atenolol held BP still soft at times. Now tachycardic. Could be rebound off of beta-macy. Resumed low dose atenolol and tolerating this. Follow Plan DVT Prophylaxis - INR therapeutic Code status - full Subjective Date/time seen: 10/03/25 15:46 Interval history: 75yo female with metastatic breast CA, hx of PE on Coumadin and HTN here for nausea, vomiting and weakness. Feels better overall. Still with BE but this is more long standing. She follows with Dr Fam and is on Ibrance 3 weeks on and 1 week off - last dose was 09/24/25. Exam Narrative: AF 93/80 107 18 95% RA Gen - NARD sitting up in bed Chest - mild left lung end-expiratory wheezes with mild L>R bibasilar crackles. nml RR CV - tachy, regular. Tele showing mild sinus tach with HR<115 Abd - Soft, NT/ND, Positive BS Ext - No pedal edema Psych - Nml mood and affect Skin - Warm and dry. Objective Data Vital Signs Vital Signs: Vital Signs - 24 hr 10/02/25 16:00 10/02/25 16:00 10/02/25 18:00 Temperature 97.8 F Pulse Rate 116 H 119 H 106 H Respiratory Rate 20 Blood Pressure 124/66 Pulse Oximetry 91 Oxygen Delivery Oxygen Flow Rate 10/02/25 20:00 10/02/25 20:00 10/02/25 20:00 Temperature 97.6 F Pulse Rate 104 H 101 H Respiratory Rate 20 Blood Pressure 137/66 Pulse Oximetry 99 98 Oxygen Delivery Nasal Cannula Oxygen Flow Rate 1.5 10/02/25 20:01 10/02/25 20:01 10/02/25 20:13 Temperature Pulse Rate 102 H 102 H 107 H Respiratory Rate 18 18 16 Blood Pressure Pulse Oximetry 97 Oxygen Delivery Nasal Cannula Oxygen Flow Rate 1 10/02/25 22:00 10/03/25 00:00 10/03/25 00:00 Temperature 98.8 F Pulse Rate 104 H 102 H 101 H Respiratory Rate 20 Blood Pressure 123/57 L Pulse Oximetry 98 Oxygen Delivery Oxygen Flow Rate 10/03/25 00:10 10/03/25 02:00 10/03/25 02:01 Temperature Pulse Rate 97 103 H Respiratory Rate 18 Blood Pressure Pulse Oximetry 96 Oxygen Delivery Nasal Cannula Oxygen Flow Rate 1.5 10/03/25 02:10 10/03/25 02:10 10/03/25 04:00 Temperature 97.4 F L Pulse Rate 102 H 102 H 104 H Respiratory Rate 18 18 20 Blood Pressure 140/63 Pulse Oximetry 99 97 Oxygen Delivery Nasal Cannula Oxygen Flow Rate 1 10/03/25 04:00 10/03/25 04:00 10/03/25 06:00 Temperature Pulse Rate 103 H 102 H Respiratory Rate Blood Pressure Pulse Oximetry 100 Oxygen Delivery Nasal Cannula Oxygen Flow Rate 2 10/03/25 08:00 10/03/25 08:00 10/03/25 08:00 Temperature 98.3 F Pulse Rate 107 H 104 H 104 H Respiratory Rate 20 18 Blood Pressure 134/66 Pulse Oximetry 97 97 Oxygen Delivery Room Air Oxygen Flow Rate 10/03/25 08:07 10/03/25 08:07 10/03/25 08:17 Temperature Pulse Rate 99 108 H Respiratory Rate 18 18 Blood Pressure Pulse Oximetry 100 Oxygen Delivery Nasal Cannula Oxygen Flow Rate 1.5 10/03/25 08:52 10/03/25 09:06 10/03/25 10:00 Temperature Pulse Rate 111 H 108 H Respiratory Rate Blood Pressure Pulse Oximetry 97 Oxygen Delivery Room Air Oxygen Flow Rate 10/03/25 11:13 10/03/25 12:00 10/03/25 12:00 Temperature 98.6 F Pulse Rate 109 H 111 H 111 H Respiratory Rate 18 18 Blood Pressure 93/80 L Pulse Oximetry 95 95 Oxygen Delivery Room Air Oxygen Flow Rate 10/03/25 13:14 10/03/25 13:23 10/03/25 14:00 Temperature Pulse Rate 97 100 107 H Respiratory Rate 20 18 Blood Pressure Pulse Oximetry Oxygen Delivery Oxygen Flow Rate Intake/Output Intake/Output: Intake & Output 09/30/25 10/01/25 10/02/25 10/03/25 23:59 23:59 23:59 23:59 Intake Total 0 2210 1650 1030 Output Total 400 300 200 Balance 0 1810 1350 830 Meds/Results Medications: Active Medications Generic Name Dose Route Start Last Admin Trade Name Freq PRN Reason Stop Dose Admin Acetaminophen 650 mg 09/30/25 22:54 10/03/25 13:47 Acetaminophen 325 Mg Tablet PO 650 mg Q4H PRN Administration Mild Pain (1-3) or Fever Albuterol/Ipratropium 3 ml 10/01/25 08:00 10/03/25 13:14 Ipratropium 0.5 Mg/Albuterol Sulfate 2.5 Mg (Base) Ampul.Neb 3 Ml INHALATION 3 ml Q6HRT JUANJOSE Administration Atenolol 12.5 mg 10/02/25 15:05 10/03/25 09:06 Atenolol 12.5 Mg Tablet PO 12.5 mg DAILY JUANJOSE Administration Budesonide 0.5 mg 10/01/25 08:00 10/03/25 08:06 Budesonide Respule Neb 0.5 Mg/2 Ml Amp INHALATION 0.5 mg Q12HRT JUANJOSE Administration Calcium Carbonate 500 mg 10/01/25 09:00 10/03/25 09:06 Calcium Carbonate (Oscal) 500 Mg Tablet PO 500 mg QAM JUANJOSE Administration Cyanocobalamin 1,000 mcg 10/01/25 09:00 10/03/25 09:06 Cyanocobalamin 1,000 Mcg Tablet PO 1,000 mcg QAM JUANJOSE Administration Dicyclomine HCl 20 mg 10/01/25 14:00 10/03/25 13:41 Dicyclomine Hcl 10 Mg Capsule PO 20 mg Q8HR JUANJOSE Administration Ferrous Sulfate 325 mg 10/01/25 09:00 10/03/25 09:07 Ferrous Sulfate 325 Mg Tablet BY MOUTH 325 mg DAILY JUANJOSE Administration Folic Acid 0.4 mg 10/01/25 09:00 10/03/25 09:07 Folic Acid 0.4 Mg Tablet PO 0.4 mg QAM JUANJOSE Administration Gabapentin 800 mg 10/01/25 21:00 10/03/25 09:07 Gabapentin 400 Mg Capsule PO 800 mg Q12HR JUANJOSE Administration Guaifenesin 1,200 mg 10/01/25 09:00 10/03/25 09:06 Guaifenesin 12 Hr 600 Mg Tabcr PO 1,200 mg Q12HR JUANJOSE Administration Cefepime HCl 2 gm/ Sodium 50 mls @ 100 mls/hr 10/01/25 14:00 10/03/25 13:41 Chloride IVPB 100 mls/hr Q8HR JUANJOSE Administration Vancomycin HCl 1,500 mg in 500 mls @ 250 mls/hr 10/03/25 04:00 10/03/25 05:56 Vancomycin 1,500 Mg/Ns 500 Ml IVPB Infused Q12H JUANJOSE Infusion Levothyroxine Sodium 125 mcg 10/04/25 06:30 Levothyroxine Sodium 125 Mcg Tablet PO DAILY@0630 JUANJOSE Megestrol Acetate 200 mg 10/01/25 09:00 10/03/25 09:07 Megestrol Acetate (*Chemo) Oral Susp 40 Mg/Ml Ud PO 200 mg QAM JUANJOSE Administration Ondansetron HCl 4 mg 09/30/25 22:54 Ondansetron Inj 4 Mg/2 Ml Vial IV PUSH Q4H PRN Nausea Perflutren Lipid Microsphere 0 ml 10/02/25 19:26 Perflutren Lipid Microspheres 1.5 Ml Vial Diluted To 10 Ml Total Volume IV PUSH 10/05/25 19:26 ONCE PRN adequate visualization Protocol Primidone 50 mg 10/01/25 21:00 10/02/25 20:33 Primidone 50 Mg Tablet PO 50 mg HS JUANJOSE Administration Ropinirole HCl 0.25 mg 10/01/25 21:00 10/02/25 20:33 Ropinirole Hcl 0.25 Mg Tablet PO 0.25 mg HS JUANJOSE Administration Radiology Results: ITS Impressions Chest/Abdomen/Pelvis CT 09/30/25 21:32 IMPRESSION: 1. Postsurgical changes of right mastectomy. Extensive, predominantly osteoblastic metastatic lesions of the skeletal system are seen. Fractures of anterior right fifth and sixth ribs, possible pathological fractures. 2. Small right pleural effusion. 3. No acute findings noted in the abdomen and pelvis. Chest X-Ray 10/01/25 06:43 IMPRESSION: 1. No change or acute cardiopulmonary findings. Labs Labs: Laboratory Results - last 24 hr 10/03/25 10/03/25 03:03 11:46 WBC 4.6 RBC 1.95 L Hgb 6.9 L* 7.1 L Hct 21.4 L 22.4 L MCV 109.7 H MCH 35.4 H MCHC 32.2 RDW 23.3 H Plt Count 122 L MPV 10.5 H Immature Gran % (Auto) Not Reportable Neut % (Auto) Not Reportable Lymph % (Auto) Not Reportable [place] % (Auto) Not Reportable Eos % (Auto) Not Reportable Baso % (Auto) Not Reportable Lymph # (Auto) Not Reportable [place] # (Auto) Not Reportable Eos # (Auto) Not Reportable Baso # (Auto) Not Reportable Abs Immat Gran (auto) Not Reportable Absolute Neuts (auto) Not Reportable Absolute Nucleated RBC Not Reportable Total Counted 100 Neutrophils % (Manual) 78 H Band Neutrophils % 7 H Lymphocytes % (Manual) 5.0 L Monocytes % (Manual) 8 Eosinophils % (Manual) 1 Basophils % (Manual) 1 Nucleated RBC % Not Reportable Abs Neuts (Manual) 3.91 Abs Lymphs (Manual) 0.23 L Abs Monocytes (Manual) 0.36 Absolute Eos (Manual) 0.04 Abs Basophils (Manual) 0.04 Nucleated RBCs 5 Smudge Cells Present Platelet Estimate Slightly decreased Polychromasia Occasional Hypochromasia 1+ Anisocytosis 1+ Macrocytosis Occasional Schistocytes None seen PT 25.4 H INR 2.4 Sodium 132 L Potassium 3.5 Chloride 108 H Carbon Dioxide 20 L Anion Gap 4 BUN 16 Creatinine 0.61 L Estim Creat Clear Calc 73 Estimated GFR > 60 Glucose 106 Calcium 8.8 Phosphorus 2.4 L Magnesium 1.9 Total Bilirubin 0.6 AST 30 ALT 22 Alkaline Phosphatase 116 Total Protein 6.1 L Albumin 3.1 L TSH (Reflex) 47.000 H Free T4 0.52 L Vancomycin Trough 10.2
[2025-10-03] MEDS: PRIMIDONE 50 MG TABLET PO (20:15)
[2025-10-04] VITALS (32 sets, daily range): BP systolic 101–174; BP diastolic 53–92; PULSE 90–109; RESP 16–20; TEMP 36.4–37; O2SAT 10–100
--- NOTE | 2025-10-04 | ECHO_ITS ---
Patient Info Name: Damien Pulido Age: 75 years : 1950 Gender: Female Ht: 69 in Wt: 187 lbs BSA: 2.05 m2 HR: 65 bpm BP: 128 / 66 mmHg Technical Quality: Poor Exam Date: 10/04/2025 9:27 AM Patient Status: I Admit Date: 09/30/2025 Exam Type: CA echo dop color flow w con Complete two-dimensional, color flow and Doppler transthoracic echocardiogram is performed with contrast to opacify the left ventricle and to improve the deliniation of the left ventricle endocardial borders. Staff Referring Physician: James Jackson MD Chemistry Technician: Isela Salinas Attending Provider: James Jackson MD Contrast/Agitated Saline Contrast/Ag. Saline: Definity Amount: 3.00 ml Existing IV Access: Yes Summary 1. Technically suboptimal study due to poor sonographic images. 2. Definity contrast administered improved wall motion interpretation. 3. Left ventricular chamber dimension is mildly enlarged. 4. Left ventricular systolic function is mildly reduced, estimated at 45-50. 5. The left ventricular diastolic function is indeterminate. 6. The mitral valve has a mildly calcified annulus. 7. There is trace mitral valve regurgitation. 8. There is trace tricuspid valve regurgitation. 9. No pulmonary hypertension, estimated pulmonary arterial systolic pressure is 30 mmHg. Left Ventricle Technically suboptimal study due to poor sonographic images. Left ventricular chamber dimension is mildly enlarged. Left ventricular systolic function is mildly reduced, estimated at 45-50. The left ventricular diastolic function is indeterminate. Definity contrast administered improved wall motion interpretation. Right Ventricle Right ventricular chamber dimension is normal. Right ventricular systolic function is normal. Left Atria Left atrial chamber dimension is normal. Right Atria Right atrial chamber dimension is normal. Aortic Valve The aortic valve is trileaflet. There is no aortic valve stenosis. There is no aortic valve regurgitation. Pulmonic Valve There is no pulmonic regurgitation. Mitral Valve The mitral valve has a mildly calcified annulus. There is no mitral valve stenosis. There is trace mitral valve regurgitation. Tricuspid Valve There is trace tricuspid valve regurgitation. No pulmonary hypertension, estimated pulmonary arterial systolic pressure is 30 mmHg. Pericardium/Pleural There is no pericardial effusion. Inferior Vena Cava Inferior vena cava is not well visualized. Aorta The aortic root size at the sinus of Valsalva is normal. Left Ventricular Outflow Tract Name Value Normal LVOT 2D LVOT Diameter 2.0 cm LVOT Doppler LVOT Peak Velocity 75 cm/s LVOT Peak Gradient 2 mmHg LVOT Mean Gradient 2 mmHg LVOT VTI 14 cm LVOT VTI/AV VTI Ratio 0.6 LVOT Stroke Volume 43 ml LVOT CO 5.4 l/min LVOT CI 2.6 l/min/m2 Pulmonic Valve Name Value Normal PV Doppler PV Peak Velocity 85 cm/s PV Peak Gradient 3 mmHg Mitral Valve Name Value Normal MV Doppler MV Peak Gradient 7 mmHg MV Mean Gradient 3 mmHg MV Area (Cont Eq VTI) 1.8 cm2 Tricuspid Valve Name Value Normal TV Regurgitation Doppler TR Peak Velocity 251 cm/s TR Peak Gradient 24 mmHg Estimated PAP/RSVP RA Pressure 5 mmHg <=5 PA Systolic Pressure 30 mmHg <36 RV Systolic Pressure 30 mmHg <36 TV Annular TDI TV Lateral Shantel s' Velocity 12.7 cm/s >=9.5 Aortic Valve Name Value Normal AV Doppler AV Peak Velocity 142 cm/s AV Peak Gradient 8 mmHg AV Mean Gradient 5 mmHg AV VTI 25 cm AV Area (Cont Eq VTI) 1.7 cm2 >=3.0 AV Area (Cont Eq Aguilar) 1.6 cm2 AV DI (Aguilar) 0.53 AV Regurgitation 2D LVOT Area 3.0 cm2 Ventricles Name Value Normal LV Dimensions 2D/MM IVS Diastolic Thickness (2D) 1.0 cm 0.6-1.0 LVID Diastole (2D) 5.0 cm 3.8-5.2 LVIW Diastolic Thickness (2D) 0.9 cm 0.6-0.9 LVID Systole (2D) 3.7 cm 2.2-3.5 LVOT Diameter 2.0 cm LV Mass (2D Cubed) 163.26 g 67.00-162.00 LV Mass Index (2D Cubed) 80 g/m2 43-95 Relative Wall Thickness (2D) 0.36 <=0.42 LV Fractional Shortening/Ejection Fraction 2D/MM LV Fractional Shortening (2D) 25 % 27-45 LV EF (2D Teichholz) 49 % LV Diastolic Volume (4C MOD) 119 ml LV EF (4C MOD) 39 % LV Diastolic Volume (2C MOD) 97 ml LV EF (2C MOD) 31 % LV Diastolic Volume (BP MOD) 110 ml 46-106 LV Diastolic Volume Index (BP MOD) 53 ml/m2 29-61 LV Systolic Volume (BP MOD) 71 ml 14-42 LV Systolic Volume Index (BP MOD) 35 ml/m2 8-24 LV EF (BP MOD) 35 % 54-74 LV Diastolic Length (4C) 8.5 cm LV Systolic Length (4C) 7.4 cm LV Stroke Volume (4C MOD) 47 ml Atria Name Value Normal LA Dimensions LA Volume (4C A-L) 51 ml LA Volume (BP A-L) 58 ml RA Dimensions RA Systolic Major [place] Length (4C) 4.2 cm 2.2-2.8 RA Area (4C) 10.3 cm2 <=18.0 Report Signatures
[2025-10-04] MEDS: IPRATROPIUM 0.5 MG/ALBUTEROL SULFATE 2.5 MG (BASE) AMPUL.NEB 3 ML INHALATION ×3 (02:05→13:08)
[2025-10-04] MEDS: VANCOMYCIN 1,500 MG/NS 500 ML 1,500 MG/500 ML BAG 250 MG IVPB (04:13)
[2025-10-04 04:39] LABS: Immature Granulocyte Percent A 15.7 % (0-0.5); Lymphocytes Absolute Auto 0.27 K/mm3 (0.9-3.2); Mean Corpuscular HGB Conc 31.9 g/dl (32-36); Mean Corpuscular Hemoglobin 35.1 pg (26-34); Mean Corpuscular Volume 110.1 fl (80-100); Nucleated Red Blood Cells Absolute Auto 0.120 K/mm3 (0.0-0.012); Nucleated Red Blood Cells Perc 2.4 % (0.0-0.2); Platelet Count Result 120 k/mm3 (150-375); Red Blood Count 1.88 M/mm3 (4.2-5.4); White Blood Count 5.0 K/mm3 (4.5-10.0)
[2025-10-04 04:52] LABS: INR 1.9; Prothrombin Time 21.6 Seconds (11.1-14.7)
[2025-10-04 04:58] LABS: Albumin Level 3.0 g/dL (3.5-5.1); Anion Gap 6 mmol/L (4-12); Blood Urea Nitrogen 16 mg/dL (7-17); Calcium 8.9 mg/dL (8.4-10.2); Carbon Dioxide 20 mmol/L (22-30); Chloride 109 mmol/L (98-107); Estimated CRCL calculation 88 ml/min; Estimated Glomerular Filt Rate > 60; Glucose 108 mg/dL (65-110); Magnesium 1.7 mg/dL (1.6-2.3); Potassium 3.4 mmol/L (3.4-5.0); Sodium 135 mmol/L (137-145)
[2025-10-04 04:59] LABS: Hematocrit 20.7 % (37.0-47.0); Hemoglobin 6.6 g/dL (12.0-15.0)
[2025-10-04 05:02] LABS: Anisocytosis 2+
[2025-10-04 05:03] LABS: Schistocytes Occasional
[2025-10-04] MEDS: CEFEPIME 2 GM in SODIUM CHLORIDE 0.9% IV 50 ML 100 ML IVPB ×3 (06:26→21:01)
[2025-10-04] MEDS: DICYCLOMINE HCL 10 MG CAPSULE 20 MG PO ×3 (06:26→21:00)
[2025-10-04] MEDS: LEVOTHYROXINE SODIUM 125 MCG TABLET PO (06:27)
--- NOTE | 2025-10-04 06:45 | P.CDI_ITS ---
CDI Query Clarification Request BMI: Nutritional Diagnostic Statement: Please refer to the comprehensive nutrition assessment for further information. If you agree with diagnosis of Moderate protein calorie malnutrition related to inadequate energy intake as evidenced by pt report of poor po intake greater than 1 month and a significant weight loss of -8% x 2 months. Please specify severity if known: * Mild * Moderate * Severe * Other/Unknown
[2025-10-04] MEDS: BUDESONIDE RESPULE NEB 0.5 MG/2 ML AMP INHALATION ×2 (07:28→19:59)
--- NOTE | 2025-10-04 07:43 | PC.NURSE ---
Alert, awake and oriented in room. Denies pain or discomfort at this time. Vascular access called for new IV access. coal grader remains on and functioning at this time. No acute distress noted at this time.
[2025-10-04] MEDS: MEGESTROL ACETATE (*CHEMO) ORAL SUSP 40 MG/ML UD 200 MG PO (08:32)
[2025-10-04] MEDS: atenoloL 12.5 MG TABLET PO (08:33)
[2025-10-04] MEDS: GABAPENTIN 400 MG CAPSULE 800 MG PO ×2 (08:33→20:09)
[2025-10-04] MEDS: CYANOCOBALAMIN 1,000 MCG TABLET 1000 MCG PO (08:34)
[2025-10-04] MEDS: FLUTICASONE PROPIONATE 0.05% NA SPR 16 GM BTL (*BKC) 2 SPRAY NASAL (08:34)
[2025-10-04] MEDS: CALCIUM CARBONATE (OSCAL) 500 MG TABLET PO (08:34)
[2025-10-04] MEDS: guaiFENesin 12 HR 600 MG TABCR 1200 MG PO ×2 (08:34→20:09)
[2025-10-04] MEDS: FOLIC ACID 0.4 MG TABLET PO (08:34)
[2025-10-04] MEDS: FERROUS SULFATE 325 MG TABLET BY MOUTH (08:34)
--- NOTE | 2025-10-04 10:40 | PC.NURSE ---
At approximately 0830 this RN went to discuss plan of care with patient. Patient states that she would like to speak to her prior to receiving blood and possibly the physician. This RN verbalizes understanding at this time. At this time this RN went into the room to see what decisions if any have been made and the patient is on the phone and asks that I come back to see her. Family member is at the bedside. This RN tried to call the physician to make aware of plan but no answer. He is said to be on the floor and this RN will follow-up.
[2025-10-04] MEDS: PERFLUTREN LIPID MICROSPHERES 1.5 ML VIAL DILUTED TO 10 ML TOTAL VOLUME IV PUSH (11:18)
--- NOTE | 2025-10-04 11:19 | IVDEFINITY ---
Prior to administration of IV Definity the patient was educated on the risks and benefits of the imaging enhancing agent including potential adverse side effects. The patient verbalized understanding. Allergies were verified. No exclusion criteria were identified and at least one of the following inclusion criteria were met: 1) physician request, 2) patient technically difficult to image (per the [place] [employer] guidelines of two or more segments not discernable within the apical view), or 3) questionable left ventricular function. ?
[2025-10-04] MEDS: SODIUM CHLORIDE 0.9% IV 250 ML 30 ML IV CONT (12:29)
[2025-10-04] MEDS: TUBING, BLOOD PLUM PUMP TUBING 1 EACH XX (12:29)
--- NOTE | 2025-10-04 12:55 | PCOTNOTE ---
Patient unavailable at this time. Patient having an IV placed and RN present in the room.
--- NOTE | 2025-10-04 14:52 | PCOTNOTE ---
Patient stated she is still recieving blood, has had an eventful day, feeling tired. Patient declined for this afternoon, requested to try back tomorrow.
--- NOTE | 2025-10-04 16:51 | P.PNIM_ITS ---
Progress Note: A&P Assessment and Plan (1) Hypoxia: Code(s): R09.02 - Hypoxemia Status: Acute Assessment and Plan: Patient with cough and hypoxia. CXR was clear on admission. CTA chest showing no acute pulmonary lesions but small right pleural effusion. MRSA nasal swab negative. On Coumadin with therapeutic INR making PE less likely. Patient was on 2.5L O2. She is life long nonsmoker and no hx of asthma but has hx of XRT. On inhalers at home and follows with pulmonology but diagnosis is in question (bronchiectasis from unk cause). Received 3L IV fluids in ED. Repeat CXR showing bibasilar scarring and bronchiectasis right midlung post-XRT but no acute findings. BNP 3400. Echo showing EF 45-50%, indeterminate diastolic fxn and minimal valvular disease. Sputum ordered. BP soft but consider trial of Lasix but feel CHF less likely. Able to wean down to room air. Follow (2) Pancytopenia: Code(s): D61.818 - Other pancytopenia Status: Acute Assessment and Plan: Patient with metastatic breast CA on Ibrance for 3 weeks with last dose 09/24/25 WBC 1.2K (ANC 708) -> 0.8K -> 3K -> Normal WBC Plt 116K -> 108K -> 119K and now stable CT Ch/A/P showing no acute findings. UA showing 11-20 WBC, negative LE/Nit Pancytopenia related to Ibrance; reached her muriel(?) No longer having fevers. She was placed in protective isolation Urine Cx negative. Sputum, Stool and blood cultures are pending Legionella and Strep Ag negative. She was empirically started on vanco and cefepime ID and Heme/Onc consulted Hgb 9.6 and dropped to 6.6 today and transfusion ordered Continue to monitor cbc with diff daily Follow up on remaining culture results. (3) Fever and neutropenia: Code(s): D70.9 - Neutropenia, unspecified; R50.81 - Fever presenting with conditions classified elsewhere Status: Acute Assessment and Plan: As above (4) Hypothyroidism, unspecified: Qualifiers: Hypothyroidism type: unspecified Qualified Code(s): E03.9 - Hypothyroidism, unspecified Code(s): E03.9 - Hypothyroidism, unspecified Status: Acute Assessment and Plan: TSH 11 in Jul. Repeat TSH 47 with low FT4 at 0.52. Continue with levothyroxine but increase to 125mcg daily Repeat TSH in 4-6 weeks. (5) Breast cancer metastasized to bone: Qualifiers: Laterality: unspecified laterality Qualified Code(s): C50.919 - Malign ant neoplasm of unspecified site of unspecified female breast; C79.51 - Secondary malignant neoplasm of bone Code(s): C50.919 - Malignant neoplasm of unspecified site of unspecified female breast; C79.51 - Secondary malignant neoplasm of bone Status: Acute Assessment and Plan: Patient with metastatic breast CA recently started on Ibrance. S/P right mastectomy. Mets to bone with CT showing extensive, predominantly osteoblastic metastatic lesions of the skeletal system with fractures of anterior right fifth and sixth ribs, possible pathological fractures. Heme/Onc consult (6) Hx of pulmonary embolus: Code(s): Z86.711 - Personal history of pulmonary embolism Status: Acute Assessment and Plan: Patient is on Coumadin for hx of PEs about 10 years ago. INR 4.7 -> 6.7 so given a small dose of oral VitK given the drop in Hgb -> 2.4 today Hgb has dropped to 6.6 Serial HH. Daily INR. Resume Coumadin when okay with Heme/Onc (7) Diarrhea: Code(s): R19.7 - Diarrhea, unspecified Status: Acute Assessment and Plan: Patient with diarrhea prior to admission but has improved Probably related to Ibrance since known side effect Follow (8) COPD (chronic obstructive pulmonary disease) with acute bronchitis: Code(s): J44.0 - Chronic obstructive pulmonary disease with (acute) lower respiratory in fection; J20.9 - Acute bronchitis, unspecified Status: Acute Assessment and Plan: Patient presumably has bronchiectasis (not COPD) On budesonide and albuterol on admission which was continued Change duo nebs to prn (9) Hypertension: Code(s): I10 - Essential (primary) hypertension Status: Acute Assessment and Plan: BP was soft and atenolol held but became tachycardic. Could be rebound off of beta-macy. BP better so resumed low dose atenolol and tolerating this. Follow Plan DVT Prophylaxis - INR therapeutic Code status - full Subjective Date/time seen: 10/04/25 16:51 Interval history: 75yo female with metastatic breast CA, hx of PE on Coumadin and HTN here for nausea, vomiting and weakness. No lightheadedness with standing. BE but feels similar to when she is at home. Feels well. Exam Narrative: AF 98.5 174/79 100 18 100% RA Gen - NARD sitting up at the side of the bed Chest - CTA bilaterally, nml RR CV - tachy, regular. Tele showing no acute dysrhythmias Abd - Soft, NT/ND, Positive BS Ext - No pedal edema Psych - Nml mood and affect Skin - Warm and dry. Objective Data Vital Signs Vital Signs: Vital Signs - 24 hr 10/03/25 18:00 10/03/25 19:35 10/03/25 20:00 Temperature 98.9 F Pulse Rate 97 107 H Respiratory Rate 18 Blood Pressure 118/62 Pulse Oximetry 92 Oxygen Delivery Room Air Oxygen Flow Rate 10/03/25 20:00 10/03/25 20:20 10/03/25 20:20 Temperature Pulse Rate 109 H 103 H Respiratory Rate 20 Blood Pressure Pulse Oximetry 96 Oxygen Delivery Room Air Oxygen Flow Rate 10/03/25 20:31 10/03/25 22:00 10/04/25 00:00 Temperature Pulse Rate 100 110 H 102 H Respiratory Rate 20 Blood Pressure Pulse Oximetry Oxygen Delivery Oxygen Flow Rate 10/04/25 00:00 10/04/25 00:00 10/04/25 02:00 Temperature 98.4 F Pulse Rate 102 H 102 H Respiratory Rate 20 Blood Pressure 122/67 Pulse Oximetry 94 Oxygen Delivery Room Air Oxygen Flow Rate 10/04/25 02:05 10/04/25 02:12 10/04/25 04:00 Temperature Pulse Rate 101 H 98 Respiratory Rate 20 20 Blood Pressure Pulse Oximetry 100 Oxygen Delivery Nasal Cannula Oxygen Flow Rate 1 10/04/25 04:00 10/04/25 04:00 10/04/25 06:00 Temperature 97.5 F L Pulse Rate 106 H 105 H 100 Respiratory Rate 17 Blood Pressure 128/66 Pulse Oximetry 100 Oxygen Delivery Oxygen Flow Rate 10/04/25 07:29 10/04/25 07:32 10/04/25 07:37 Temperature Pulse Rate 103 H 103 H 100 Respiratory Rate 19 19 Blood Pressure Pulse Oximetry 98 Oxygen Delivery Nasal Cannula Oxygen Flow Rate 3 10/04/25 07:46 10/04/25 08:00 10/04/25 08:00 Temperature 97.8 F Pulse Rate 101 H 108 H 108 H Respiratory Rate 18 18 Blood Pressure 126/66 Pulse Oximetry 98 98 Oxygen Delivery Room Air Oxygen Flow Rate 10/04/25 08:33 10/04/25 10:00 10/04/25 11:10 Temperature Pulse Rate 108 H 109 H Respiratory Rate Blood Pressure Pulse Oximetry Oxygen Delivery Room Air Oxygen Flow Rate 10/04/25 11:38 10/04/25 12:34 10/04/25 12:50 Temperature 98.1 F 98.3 F 98.6 F Pulse Rate 92 99 100 Respiratory Rate 20 18 16 Blood Pressure 117/70 125/53 L 153/72 H Pulse Oximetry 98 95 97 Oxygen Delivery Oxygen Flow Rate 10/04/25 13:09 10/04/25 13:14 10/04/25 13:50 Temperature 98.1 F Pulse Rate 100 96 105 H Respiratory Rate 19 19 18 Blood Pressure 101/69 Pulse Oximetry 100 Oxygen Delivery Oxygen Flow Rate 10/04/25 14:50 10/04/25 15:50 10/04/25 16:04 Temperature 98.2 F 98.5 F 98.5 F Pulse Rate 97 100 100 Respiratory Rate 18 18 18 Blood Pressure 153/68 H 174/79 H 174/79 H Pulse Oximetry 97 100 10 L Oxygen Delivery Oxygen Flow Rate Intake/Output Intake/Output: Intake & Output 10/01/25 10/02/25 10/03/25 10/04/25 23:59 23:59 23:59 23:59 Intake Total 2210 1650 2320 1030 Output Total 400 300 400 Balance 1810 1350 1920 1030 Meds/Results Medications: Active Medications Generic Name Dose Route Start Last Admin Trade Name Freq PRN Reason Stop Dose Admin Acetaminophen 650 mg 09/30/25 22:54 10/03/25 22:39 Acetaminophen 325 Mg Tablet PO 650 mg Q4H PRN Administration Mild Pain (1-3) or Fever Albuterol/Ipratropium 3 ml 10/01/25 08:00 10/04/25 13:08 Ipratropium 0.5 Mg/Albuterol Sulfate 2.5 Mg (Base) Ampul.Neb 3 Ml INHALATION 3 ml Q6HRT JUANJOSE Administration Atenolol 12.5 mg 10/02/25 15:05 10/04/25 08:33 Atenolol 12.5 Mg Tablet PO 12.5 mg DAILY JUANJOSE Administration Budesonide 0.5 mg 10/01/25 08:00 10/04/25 07:28 Budesonide Respule Neb 0.5 Mg/2 Ml Amp INHALATION 0.5 mg Q12HRT JUANJOSE Administration Calcium Carbonate 500 mg 10/01/25 09:00 10/04/25 08:34 Calcium Carbonate (Oscal) 500 Mg Tablet PO 500 mg QAM JUANJOSE Administration Cyanocobalamin 1,000 mcg 10/01/25 09:00 10/04/25 08:34 Cyanocobalamin 1,000 Mcg Tablet PO 1,000 mcg QAM JUANJOSE Administration Dicyclomine HCl 20 mg 10/01/25 14:00 10/04/25 06:26 Dicyclomine Hcl 10 Mg Capsule PO 20 mg Q8HR JUANJOSE Administration Ferrous Sulfate 325 mg 10/01/25 09:00 10/04/25 08:34 Ferrous Sulfate 325 Mg Tablet BY MOUTH 325 mg DAILY JUANJOSE Administration Fluticasone Propionate 2 spray 10/03/25 16:00 10/04/25 08:34 Fluticasone Propionate 0.05% Na Spr 16 Gm Btl (*Bkc) NASAL 2 spray QAM JUANJOSE Administration Folic Acid 0.4 mg 10/01/25 09:00 10/04/25 08:34 Folic Acid 0.4 Mg Tablet PO 0.4 mg QAM JUANJOSE Administration Gabapentin 800 mg 10/01/25 21:00 10/04/25 08:33 Gabapentin 400 Mg Capsule PO 800 mg Q12HR JUANJOSE Administration Guaifenesin 1,200 mg 10/01/25 09:00 10/04/25 08:34 Guaifenesin 12 Hr 600 Mg Tabcr PO 1,200 mg Q12HR JUANJOSE Administration Cefepime HCl 2 gm/ Sodium 50 mls @ 100 mls/hr 10/01/25 14:00 10/04/25 06:56 Chloride IVPB Infused Q8HR JUANJOSE Infusion Vancomycin HCl 1,250 mg in 250 mls @ 166.667 mls/hr 10/04/25 17:00 Vancomycin 1,250 Mg/Ns 250 Ml IVPB Q12H JUANJOSE Levothyroxine Sodium 125 mcg 10/04/25 06:30 10/04/25 06:27 Levothyroxine Sodium 125 Mcg Tablet PO 125 mcg DAILY@0630 JUANJOSE Administration Megestrol Acetate 200 mg 10/01/25 09:00 10/04/25 08:32 Megestrol Acetate (*Chemo) Oral Susp 40 Mg/Ml Ud PO 200 mg QAM JUANJOSE Administration Ondansetron HCl 4 mg 09/30/25 22:54 Ondansetron Inj 4 Mg/2 Ml Vial IV PUSH Q4H PRN Nausea Primidone 50 mg 10/01/25 21:00 10/03/25 20:15 Primidone 50 Mg Tablet PO 50 mg HS JUANJOSE Administration Ropinirole HCl 0.25 mg 10/01/25 21:00 10/03/25 20:15 Ropinirole Hcl 0.25 Mg Tablet PO 0.25 mg HS JUANJOSE Administration Radiology Results: ITS Impressions Chest/Abdomen/Pelvis CT 09/30/25 21:32 IMPRESSION: 1. Postsurgical changes of right mastectomy. Extensive, predominantly osteoblas tic metastatic lesions of the skeletal system are seen. Fractures of anterior right fifth and sixth ribs, possible pathological fractures. 2. Small right pleural effusion. 3. No acute findings noted in the abdomen and pelvis. Chest X-Ray 10/01/25 06:43 IMPRESSION: 1. No change or acute cardiopulmonary findings. Labs Labs: Laboratory Results - last 24 hr 10/04/25 10/04/25 10/04/25 04:03 05:56 15:15 WBC 5.0 RBC 1.88 L Hgb 6.6 L* Hct 20.7 L* MCV 110.1 H MCH 35.1 H MCHC 31.9 L RDW 23.3 H Plt Count 120 L MPV 10.6 H Immature Gran % (Auto) 15.7 H Neut % (Auto) 67.3 Lymph % (Auto) 5.4 L [place] % (Auto) 10.4 H Eos % (Auto) 0.4 Baso % (Auto) 0.8 Lymph # (Auto) 0.27 L [place] # (Auto) 0.5 Eos # (Auto) 0.0 Baso # (Auto) 0.0 Abs Immat Gran (auto) 0.79 H Absolute Neuts (auto) 3.4 Absolute Nucleated RBC 0.120 H Band Neutrophils % Not Reportable Nucleated RBC % 2.4 H Platelet Estimate Slightly decreased Anisocytosis 2+ Schistocytes Occasional PT 21.6 H INR 1.9 Sodium 135 L Potassium 3.4 Chloride 109 H Carbon Dioxide 20 L Anion Gap 6 BUN 16 Creatinine 0.57 L Estim Creat Clear Calc 88 Estimated GFR > 60 Glucose 108 Calcium 8.9 Phosphorus 3.2 Magnesium 1.7 Albumin 3.0 L Vancomycin Trough 18.3 Blood Type A Positive Antibody Screen Negative Crossmatch See Detail
--- NOTE | 2025-10-04 18:23 | WPDONCCN ---
Assessment and Plan Assessment and plan (1) Breast cancer metastasized to bone: Qualifiers: Laterality: unspecified laterality Qualified Code(s): C50.919 - Malignant neoplasm of unspecified site of unspecified female breast; C79.51 - Secondary malignant neoplasm of bone Code(s): C50.919 - Malignant neoplasm of unspecified site of unspecified female breast; C79.51 - Secondary malignant neoplasm of bone Status: Acute Assessment and Plan: Patient was diagnosed with metastatic breast cancer status post right iliac bone biopsy done on July 20, 2025. Pathology showed ER positive MT negative and HER2 Chuyita 2+ equivocal with fish testing came back inconclusive. She was started on treatment with Faslodex along with Ibrance that she completed 1st cycle about 10 days ago. She was admitted to the hospital with generalized weakness along with nausea vomiting and diarrhea secondary to the treatment with Ibrance. We will continue to hold Ibrance until re-evaluated in the office next week. She may need to get reduced dose of Ibrance starting next cycle. She will continue treatment with Faslodex. I have discussed this case with Dr. Jackson. He is going to order iron studies and vitamin B12 level today. Patient is already taking iron and B12 supplement once a day. I will follow-up in the office hopefully next week and repeat labs will be checked at that time. HPI Data of Consult Date/Time: 10/04/25 18:23 Requesting Physician: Ayo Jackson MD Primary Care Provider: Ankit Villafuerte DO Consult Narrative Narrative: Damien Pulido is a 75 year old female with history of metastatic breast cancer status post right iliac bone biopsy done on July 20, 2025 and pathology showed ER positive MT negative and HER2 Chuyita 2+ equivocal with fish testing came back inconclusive. Patient was originally diagnosed with stage IIIB right-sided breast cancer in 2016. Patient was started on Faslodex on August 20, 2025. She started Ibrance and completed 4 cycles about 10 days ago. She came into the hospital with complain of generalized weakness nausea vomiting and diarrhea. Imaging study showed extensive bone metastasis. She was started on Imodium for the diarrhea control. Other labs showed hemoglobin of 6.6 with white cells of 5000 and platelets of [id number]. ANC was 3400. She received 1 unit of packed red blood cell transfusion today. She denies any bleeding including melena and hematochezia. She is feeling better after the blood transfusion. Review of Systems Review of Systems: Twelve point review of system was reviewed [facility] Past Medical History Medical History (Updated 10/01/25 @ 09:26 by James Jackson MD) Hx of pulmonary embolus Hypertension History of radiation therapy 10 treatments Bone cancer hip Intractable nausea and vomiting Restless leg syndrome Chronic anticoagulation Superior vena cava thrombosis Cervical cancer status post radiation and chemotherapy Degenerative joint disease Chronic obstructive pulmonary disease suspected though no formal diagnosis per patient report Allergies Exocrine pancreatic insufficiency Osteoporosis due to aromatase inhibitor Hypothyroidism, unspecified 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 Cintron H/O total hysterectomy History of open reduction and internal fixation (ORIF) procedure repair right wrist fracture History of arthroscopy of both knees History of cholecystectomy History of appendectomy History of right mastectomy (11/2016) Family History Family History Father Family history of diabetes mellitus in first degree relative Family history of congestive heart failure Mother Family history of malignant neoplasm of breast in first degree relative Other Family history of malignant neoplasm Social History Social History (Updated 10/01/25 @ 08:39 by Kinjal Boyd APRN) Social History: She has 2 children and is retired Surrogate medical decision maker: Charly Pulido, spouse. Code status: FULL CODE. Smoking status: Never smoker Second hand tobacco smoke exposure: No Alcohol intake: never Alcohol use details: Social alcohol use in the past, non since 2013. Substance use: never Substance use type: does not use Do You Feel Safe in your Home?: Yes Lack of Transportation: No Lack of Food: Never True Current Housing: I Have Housing Concerned About Future Housing: No Difficulty Paying Gas/Electric Bills: No Difficulty Paying for Meds: No Currently Unemployed: No Education: Associate Degree Difficulty w/ Childcare or Family Care: No Living arrangements: with family Additional living arrangements comments: [facility] Spiritual care concerns: No Meds Home Medications and Allergies Home Medications ?Medication ?Instructions ?Recorded ?Confirmed ?Type gabapentin 800 mg tablet 800 mg PO BID 05/20/23 10/01/25 History loratadine 10 mg tablet (Claritin) 10 mg PO DAILY 11/25/23 10/01/25 History ascorbic acid (vitamin C) 1,000 mg 1 g PO DAILY 03/19/25 10/01/25 History capsule calcium 600 mg capsule 600 mg PO DAILY 03/19/25 10/01/25 History geriatric multivitamin-min 1 tablet PO DAILY 03/19/25 10/01/25 History guaifenesin 1,200 mg tablet, 1,200 mg PO BID 03/30/25 10/01/25 History extended release 12 hr (Mucinex) warfarin 2 mg tablet 4 mg PO DAILY 03/30/25 10/01/25 History levothyroxine 75 mcg tablet 75 mcg PO QAM #90 tabs 04/27/25 10/01/25 Rx budesonide 0.5 mg/2 mL suspension 0.5 mg (2 mL) inhalation DAILY #60 05/06/25 10/01/25 Rx for nebulization mL ipratropium bromide 0.02 % 2.5 ml inhalation Q6H PRN 05/06/25 10/01/25 Rx solution for inhalation shortness of breath or wheezing #300 mL ferrous sulfate 325 mg (65 mg 325 mg PO DAILY 08/20/25 10/01/25 History iron) tablet (Feosol) vitamin B12 1,000 mcg-folic acid 1 tablet sublingual DAILY 08/20/25 10/01/25 History 400 mcg sublingual tablet ondansetron 4 mg disintegrating 4 mg PO Q6H PRN nausea and 08/25/25 10/01/25 Rx tablet vomiting #60 tabs atenolol 25 mg tablet 12.5 mg PO QHS 09/17/25 10/01/25 History albuterol sulfate 0.63 mg/3 mL 0.63 mg inhalation BID PRN 10/01/25 10/01/25 History solution for nebulization shortness of breath or wheezing albuterol sulfate 90 mcg/actuation 2 inh inhalation Q4-6H PRN 10/01/25 10/01/25 History breath activated powder inhaler shortness of breath or wheezing (ProAir RespiClick) dicyclomine 20 mg tablet 20 mg PO TID 10/01/25 10/01/25 History megestrol 400 mg/10 mL (40 mg/mL) 400 mg PO DAILY 10/01/25 10/01/25 History oral suspension palbociclib 125 mg tablet (Ibrance) 125 mg PO DAILY 10/01/25 10/01/25 History primidone 50 mg tablet 50 mg PO HS 10/01/25 10/01/25 History ropinirole 0.25 mg tablet 0.25 mg PO HS 10/01/25 10/01/25 History Allergies Allergy/AdvReac Type Severity Reaction Status Date / Time No Known Allergies Allergy Verified 10/01/25 04:09 Vital Signs Vital Signs - 24 hr 10/03/25 19:35 10/03/25 20:00 10/03/25 20:00 Temperature 37.2 C Pulse Rate 107 H 109 H Respiratory Rate 18 Blood Pressure 118/62 Pulse Oximetry 92 Oxygen Delivery Room Air Oxygen Flow Rate 10/03/25 20:20 10/03/25 20:20 10/03/25 20:31 Temperature Pulse Rate 103 H 100 Respiratory Rate 20 20 Blood Pressure Pulse Oximetry 96 Oxygen Delivery Room Air Oxygen Flow Rate 10/03/25 22:00 10/04/25 00:00 10/04/25 00:00 Temperature Pulse Rate 110 H 102 H Respiratory Rate Blood Pressure Pulse Oximetry Oxygen Delivery Room Air Oxygen Flow Rate 10/04/25 00:00 10/04/25 02:00 10/04/25 02:05 Temperature 36.9 C Pulse Rate 102 H 102 H 101 H Respiratory Rate 20 20 Blood Pressure 122/67 Pulse Oximetry 94 Oxygen Delivery Oxygen Flow Rate 10/04/25 02:12 10/04/25 04:00 10/04/25 04:00 Temperature 36.4 C L Pulse Rate 98 106 H Respiratory Rate 20 17 Blood Pressure 128/66 Pulse Oximetry 100 100 Oxygen Delivery Nasal Cannula Oxygen Flow Rate 1 10/04/25 04:00 10/04/25 06:00 10/04/25 07:29 Temperature Pulse Rate 105 H 100 103 H Respiratory Rate Blood Pressure Pulse Oximetry 98 Oxygen Delivery Nasal Cannula Oxygen Flow Rate 3 10/04/25 07:32 10/04/25 07:37 10/04/25 07:46 Temperature 36.6 C Pulse Rate 103 H 100 101 H Respiratory Rate 19 19 18 Blood Pressure 126/66 Pulse Oximetry 98 Oxygen Delivery Oxygen Flow Rate 10/04/25 08:00 10/04/25 08:00 10/04/25 08:33 Temperature Pulse Rate 108 H 108 H 108 H Respiratory Rate 18 Blood Pressure Pulse Oximetry 98 Oxygen Delivery Room Air Oxygen Flow Rate 10/04/25 10:00 10/04/25 11:10 10/04/25 11:38 Temperature 36.7 C Pulse Rate 109 H 92 Respiratory Rate 20 Blood Pressure 117/70 Pulse Oximetry 98 Oxygen Delivery Room Air Oxygen Flow Rate 10/04/25 12:34 10/04/25 12:50 10/04/25 13:09 Temperature 36.8 C 37.0 C Pulse Rate 99 100 100 Respiratory Rate 18 16 19 Blood Pressure 125/53 L 153/72 H Pulse Oximetry 95 97 Oxygen Delivery Oxygen Flow Rate 10/04/25 13:14 10/04/25 13:50 10/04/25 14:50 Temperature 36.7 C 36.8 C Pulse Rate 96 105 H 97 Respiratory Rate 19 18 18 Blood Pressure 101/69 153/68 H Pulse Oximetry 100 97 Oxygen Delivery Oxygen Flow Rate 10/04/25 15:50 10/04/25 16:04 Temperature 36.9 C 36.9 C Pulse Rate 100 100 Respiratory Rate 18 18 Blood Pressure 174/79 H 174/79 H Pulse Oximetry 100 10 L Oxygen Delivery Oxygen Flow Rate Exam Narrative: Lungs are clear to auscultation bilaterally Cardiovascular regular rate rhythm no murmurs Abdomen soft nontender nondistended Extremities no edema Results Labs 10/04/25 04:03 10/04/25 04:03 Labs: Short CBC 10/04/25 Range/Units 04:03 WBC 5.0 (4.5-10.0) K/mm3 Hgb 6.6 L* (12.0-15.0) g/dL Hct 20.7 L* (37.0-47.0) % Plt Count 120 L (150-375) k/mm3 BMP 10/04/25 04:03 Sodium 135 L Potassium 3.4 Chloride 109 H Carbon Dioxide 20 L BUN 16 Creatinine 0.57 L Glucose 108 Calcium 8.9 Liver Function 10/04/25 Range/Units 04:03 Albumin 3.0 L (3.5-5.1) g/dL
[2025-10-04] MEDS: VANCOMYCIN 1,250 MG/NS 250 ML 1,250 MG/250 ML BAG 166.67 MG IVPB (18:26)
[2025-10-04 19:15] LABS: Iron 71 ug/dL (37-170)
[2025-10-04 19:25] LABS: Percent Iron Saturation 36 % (20-50)
[2025-10-04 19:52] LABS: Ferritin 758.00 ng/mL (11.1-264)
[2025-10-04] MEDS: PRIMIDONE 50 MG TABLET PO (20:10)
[2025-10-04] MEDS: ACETAMINOPHEN 325 MG TABLET 650 MG PO (20:10)
--- NOTE | 2025-10-04 20:15 | WPDINFPN2 ---
Progress Note: A&P Assessment and Plan (1) Fever and neutropenia: Code(s): D70.9 - Neutropenia, unspecified; R50.81 - Fever presenting with conditions classified elsewhere Status: Acute Assessment and Plan: ASSESSMENT: 1. Low-grade fever--resolved 2. Neutropenia--resolved 3. Metastatic breast cancer 4. Bony metastases PLAN: -Blood cxs NGTD -UCX neg -CT C/A/P without infectious etiology -stool work up unrevealing to date--diarrhea possibly from ibrance -can stop abx and d/c home from my perspective Pt was seen via video telehealth consultation with the assistance of staff. Chart, data and patient info reviewed. Patient was located at [facility] while I was in my [place] office. Pt gave consent. Subjective Date/time seen: 10/04/25 20:15 Interval history: No fevers WBC wnl getting blood transfusion No PAC No pain Exam Narrative: On room air, NAD Objective Data Vital Signs Vital Signs: Vital Signs - 24 hr 10/03/25 20:20 10/03/25 20:20 10/03/25 20:31 Temperature Pulse Rate 103 H 100 Respiratory Rate 20 20 Blood Pressure Pulse Oximetry 96 Oxygen Delivery Room Air Oxygen Flow Rate 10/03/25 22:00 10/04/25 00:00 10/04/25 00:00 Temperature Pulse Rate 110 H 102 H Respiratory Rate Blood Pressure Pulse Oximetry Oxygen Delivery Room Air Oxygen Flow Rate 10/04/25 00:00 10/04/25 02:00 10/04/25 02:05 Temperature 98.4 F Pulse Rate 102 H 102 H 101 H Respiratory Rate 20 20 Blood Pressure 122/67 Pulse Oximetry 94 Oxygen Delivery Oxygen Flow Rate 10/04/25 02:12 10/04/25 04:00 10/04/25 04:00 Temperature 97.5 F L Pulse Rate 98 106 H Respiratory Rate 20 17 Blood Pressure 128/66 Pulse Oximetry 100 100 Oxygen Delivery Nasal Cannula Oxygen Flow Rate 1 10/04/25 04:00 10/04/25 06:00 10/04/25 07:29 Temperature Pulse Rate 105 H 100 103 H Respiratory Rate Blood Pressure Pulse Oximetry 98 Oxygen Delivery Nasal Cannula Oxygen Flow Rate 3 10/04/25 07:32 10/04/25 07:37 10/04/25 07:46 Temperature 97.8 F Pulse Rate 103 H 100 101 H Respiratory Rate 19 19 18 Blood Pressure 126/66 Pulse Oximetry 98 Oxygen Delivery Oxygen Flow Rate 10/04/25 08:00 10/04/25 08:00 10/04/25 08:33 Temperature Pulse Rate 108 H 108 H 108 H Respiratory Rate 18 Blood Pressure Pulse Oximetry 98 Oxygen Delivery Room Air Oxygen Flow Rate 10/04/25 10:00 10/04/25 11:10 10/04/25 11:38 Temperature 98.1 F Pulse Rate 109 H 92 Respiratory Rate 20 Blood Pressure 117/70 Pulse Oximetry 98 Oxygen Delivery Room Air Oxygen Flow Rate 10/04/25 12:00 10/04/25 12:00 10/04/25 12:34 Temperature 98.3 F Pulse Rate 101 H 101 H 99 Respiratory Rate 18 18 Blood Pressure 125/53 L Pulse Oximetry 10 L 95 Oxygen Delivery Room Air Oxygen Flow Rate 10/04/25 12:50 10/04/25 13:09 10/04/25 13:14 Temperature 98.6 F Pulse Rate 100 100 96 Respiratory Rate 16 19 19 Blood Pressure 153/72 H Pulse Oximetry 97 Oxygen Delivery Oxygen Flow Rate 10/04/25 13:50 10/04/25 14:00 10/04/25 14:50 Temperature 98.1 F 98.2 F Pulse Rate 105 H 100 97 Respiratory Rate 18 18 Blood Pressure 101/69 153/68 H Pulse Oximetry 100 97 Oxygen Delivery Oxygen Flow Rate 10/04/25 15:50 10/04/25 16:00 10/04/25 16:00 Temperature 98.5 F Pulse Rate 100 101 H 101 H Respiratory Rate 18 18 Blood Pressure 174/79 H Pulse Oximetry 100 10 L Oxygen Delivery Room Air Oxygen Flow Rate 10/04/25 16:04 10/04/25 18:00 10/04/25 19:56 Temperature 98.5 F 97.7 F Pulse Rate 100 105 H 109 H Respiratory Rate 18 20 Blood Pressure 174/79 H 149/92 H Pulse Oximetry 10 L 95 Oxygen Delivery Oxygen Flow Rate 10/04/25 19:59 10/04/25 20:02 Temperature Pulse Rate 108 H Respiratory Rate 19 Blood Pressure Pulse Oximetry 95 Oxygen Delivery Room Air Oxygen Flow Rate Intake/Output Intake/Output: Intake & Output 10/01/25 10/02/25 10/03/25 10/04/25 23:59 23:59 23:59 23:59 Intake Total 2210 1650 2320 1570 Output Total 400 300 400 Balance 1810 1350 1920 1570 Meds/Results Medications: Active Medications Generic Name Dose Route Start Last Admin Trade Name Freq PRN Reason Stop Dose Admin Acetaminophen 650 mg 09/30/25 22:54 10/04/25 20:10 Acetaminophen 325 Mg Tablet PO 650 mg Q4H PRN Administration Mild Pain (1-3) or Fever Albuterol/Ipratropium 3 ml 10/04/25 17:03 Ipratropium 0.5 Mg/Albuterol Sulfate 2.5 Mg (Base) Ampul.Neb 3 Ml INHALATION Q6HRT PRN Shortness Of Breath Or Wheezing Atenolol 12.5 mg 10/02/25 15:05 10/04/25 08:33 Atenolol 12.5 Mg Tablet PO 12.5 mg DAILY JUANJOSE Administration Budesonide 0.5 mg 10/01/25 08:00 10/04/25 19:59 Budesonide Respule Neb 0.5 Mg/2 Ml Amp INHALATION 0.5 mg Q12HRT JUANJOSE Administration Calcium Carbonate 500 mg 10/01/25 09:00 10/04/25 08:34 Calcium Carbonate (Oscal) 500 Mg Tablet PO 500 mg QAM JUANJOSE Administration Cyanocobalamin 1,000 mcg 10/01/25 09:00 10/04/25 08:34 Cyanocobalamin 1,000 Mcg Tablet PO 1,000 mcg QAM JUANJOSE Administration Dicyclomine HCl 20 mg 10/01/25 14:00 10/04/25 17:41 Dicyclomine Hcl 10 Mg Capsule PO 20 mg Q8HR JUANJOSE Administration Ferrous Sulfate 325 mg 10/01/25 09:00 10/04/25 08:34 Ferrous Sulfate 325 Mg Tablet BY MOUTH 325 mg DAILY JUANJOSE Administration Fluticasone Propionate 2 spray 10/03/25 16:00 10/04/25 08:34 Fluticasone Propionate 0.05% Na Spr 16 Gm Btl (*Bkc) NASAL 2 spray QAM JUANJOSE Administration Folic Acid 0.4 mg 10/01/25 09:00 10/04/25 08:34 Folic Acid 0.4 Mg Tablet PO 0.4 mg QAM JUANJOSE Administration Gabapentin 800 mg 10/01/25 21:00 10/04/25 20:09 Gabapentin 400 Mg Capsule PO 800 mg Q12HR JUANJOSE Administration Guaifenesin 1,200 mg 10/01/25 09:00 10/04/25 20:09 Guaifenesin 12 Hr 600 Mg Tabcr PO 1,200 mg Q12HR JUANJOSE Administration Cefepime HCl 2 gm/ Sodium 50 mls @ 100 mls/hr 10/01/25 14:00 10/04/25 18:20 Chloride IVPB Infused Q8HR JUANJOSE Infusion Vancomycin HCl 1,250 mg in 250 mls @ 166.667 mls/hr 10/04/25 17:00 10/04/25 18:26 Vancomycin 1,250 Mg/Ns 250 Ml IVPB 166.67 mls/hr Q12H JUANJOSE Administration Levothyroxine Sodium 125 mcg 10/04/25 06:30 10/04/25 06:27 Levothyroxine Sodium 125 Mcg Tablet PO 125 mcg DAILY@0630 JUANJOSE Administration Megestrol Acetate 200 mg 10/01/25 09:00 10/04/25 08:32 Megestrol Acetate (*Chemo) Oral Susp 40 Mg/Ml Ud PO 200 mg QAM JUANJOSE Administration Ondansetron HCl 4 mg 09/30/25 22:54 Ondansetron Inj 4 Mg/2 Ml Vial IV PUSH Q4H PRN Nausea Primidone 50 mg 10/01/25 21:00 10/04/25 20:10 Primidone 50 Mg Tablet PO 50 mg HS JUANJOSE Administration Ropinirole HCl 0.25 mg 10/01/25 21:00 10/04/25 20:10 Ropinirole Hcl 0.25 Mg Tablet PO 0.25 mg HS JUANJOSE Administration Radiology Results: ITS Impressions Chest/Abdomen/Pelvis CT 09/30/25 21:32 IMPRESSION: 1. Postsurgical changes of right mastectomy. Extensive, predominantly osteoblastic metastatic lesions of the skeletal system are seen. Fractures of anterior right fifth and sixth ribs, possible pathological fractures. 2. Small right pleural effusion. 3. No acute findings noted in the abdomen and pelvis. Chest X-Ray 10/01/25 06:43 IMPRESSION: 1. No change or acute cardiopulmonary findings. Labs Labs: Laboratory Results - last 24 hr 10/04/25 10/04/25 10/04/25 03:47 04:03 05:56 WBC 5.0 RBC 1.88 L Hgb 6.6 L* Hct 20.7 L* MCV 110.1 H MCH 35.1 H MCHC 31.9 L RDW 23.3 H Plt Count 120 L MPV 10.6 H Immature Gran % (Auto) 15.7 H Neut % (Auto) 67.3 Lymph % (Auto) 5.4 L [place] % (Auto) 10.4 H Eos % (Auto) 0.4 Baso % (Auto) 0.8 Lymph # (Auto) 0.27 L [place] # (Auto) 0.5 Eos # (Auto) 0.0 Baso # (Auto) 0.0 Abs Immat Gran (auto) 0.79 H Absolute Neuts (auto) 3.4 Absolute Nucleated RBC 0.120 H Band Neutrophils % Not Reportable Nucleated RBC % 2.4 H Platelet Estimate Slightly decreased Anisocytosis 2+ Schistocytes Occasional PT 21.6 H INR 1.9 Sodium 135 L Potassium 3.4 Chloride 109 H Carbon Dioxide 20 L Anion Gap 6 BUN 16 Creatinine 0.57 L Estim Creat Clear Calc 88 Estimated GFR > 60 Glucose 108 Calcium 8.9 Phosphorus 3.2 Magnesium 1.7 Iron 71 TIBC 195 L % Saturation 36 Ferritin 758.00 H Albumin 3.0 L Vancomycin Trough Blood Type A Positive Antibody Screen Negative Crossmatch See Detail 10/04/25 15:15 WBC RBC Hgb Hct MCV MCH MCHC RDW Plt Count MPV Immature Gran % (Auto) Neut % (Auto) Lymph % (Auto) [place] % (Auto) Eos % (Auto) Baso % (Auto) Lymph # (Auto) [place] # (Auto) Eos # (Auto) Baso # (Auto) Abs Immat Gran (auto) Absolute Neuts (auto) Absolute Nucleated RBC Band Neutrophils % Nucleated RBC % Platelet Estimate Anisocytosis Schistocytes PT INR Sodium Potassium Chloride Carbon Dioxide Anion Gap BUN Creatinine Estim Creat Clear Calc Estimated GFR Glucose Calcium Phosphorus Magnesium Iron TIBC % Saturation Ferritin Albumin Vancomycin Trough 18.3 Blood Type Antibody Screen Crossmatch
[2025-10-04 20:23] LABS: Vitamin B12 > 1000.0 pg/mL (239-931)
[2025-10-05] VITALS (20 sets, daily range): BP systolic 122–171; BP diastolic 70–84; PULSE 91–112; RESP 20–24; TEMP 36.4–36.8; O2SAT 95–97
[2025-10-05 04:40] LABS: Hematocrit 26.4 % (37.0-47.0); Hemoglobin 8.7 g/dL (12.0-15.0); Immature Granulocyte Percent A 23.0 % (0-0.5); Immature Platelet Fraction Pct 5.1 % (0.9-11.2); Lymphocytes Absolute Auto 0.36 K/mm3 (0.9-3.2); Mean Corpuscular HGB Conc 33.0 g/dl (32-36); Mean Corpuscular Hemoglobin 33.9 pg (26-34); Mean Corpuscular Volume 102.7 fl (80-100); Nucleated Red Blood Cells Absolute Auto 0.190 K/mm3 (0.0-0.012); Nucleated Red Blood Cells Perc 3.1 % (0.0-0.2); Platelet Count Result 138 k/mm3 (150-375); Red Blood Count 2.57 M/mm3 (4.2-5.4); White Blood Count 6.2 K/mm3 (4.5-10.0)
[2025-10-05 04:53] LABS: INR 1.7; Prothrombin Time 19.6 Seconds (11.1-14.7)
[2025-10-05] MEDS: VANCOMYCIN 1,250 MG/NS 250 ML 1,250 MG/250 ML BAG 166.67 MG IVPB (05:00)
[2025-10-05 05:08] LABS: Albumin Level 3.1 g/dL (3.5-5.1); Anion Gap 6 mmol/L (4-12); Blood Urea Nitrogen 11 mg/dL (7-17); Calcium 8.7 mg/dL (8.4-10.2); Carbon Dioxide 21 mmol/L (22-30); Chloride 108 mmol/L (98-107); Estimated CRCL calculation 93 ml/min; Estimated Glomerular Filt Rate > 60; Glucose 90 mg/dL (65-110); Potassium 3.6 mmol/L (3.4-5.0); Sodium 135 mmol/L (137-145)
[2025-10-05 05:24] LABS: Acanthocytes Occasional; Anisocytosis 1+; Hypochromasia 1+; Ovalocytes 1+; Poikilocytosis 1+; Schistocytes Occasional
[2025-10-05] MEDS: DICYCLOMINE HCL 10 MG CAPSULE 20 MG PO ×2 (06:14→14:08)
[2025-10-05] MEDS: LEVOTHYROXINE SODIUM 125 MCG TABLET PO (06:14)
[2025-10-05] MEDS: CEFEPIME 2 GM in SODIUM CHLORIDE 0.9% IV 50 ML 100 ML IVPB (06:14)
[2025-10-05] MEDS: BUDESONIDE RESPULE NEB 0.5 MG/2 ML AMP INHALATION (08:19)
[2025-10-05] MEDS: FOLIC ACID 0.4 MG TABLET PO (08:48)
[2025-10-05] MEDS: MEGESTROL ACETATE (*CHEMO) ORAL SUSP 40 MG/ML UD 200 MG PO (08:48)
[2025-10-05] MEDS: GABAPENTIN 400 MG CAPSULE 800 MG PO (08:48)
[2025-10-05] MEDS: CYANOCOBALAMIN 1,000 MCG TABLET 1000 MCG PO (08:48)
[2025-10-05] MEDS: CALCIUM CARBONATE (OSCAL) 500 MG TABLET PO (08:48)
[2025-10-05] MEDS: guaiFENesin 12 HR 600 MG TABCR 1200 MG PO (08:49)
[2025-10-05] MEDS: FERROUS SULFATE 325 MG TABLET BY MOUTH (08:49)
[2025-10-05] MEDS: FLUTICASONE PROPIONATE 0.05% NA SPR 16 GM BTL (*BKC) 2 SPRAY NASAL (08:49)
[2025-10-05] MEDS: atenoloL 12.5 MG TABLET PO (08:49)
[2025-10-05] MEDS: ASCORBIC ACID 500 MG TABLET 1000 MG PO (08:59)
[2025-10-05] MEDS: LORATADINE 10 MG TABLET PO (08:59)
--- NOTE | 2025-10-05 10:38 | PCNFU ---
Nutrition Follow-Up Complete: Moderate protein calorie malnutrition related to inadequate energy intake as evidenced by pt report of poor po intake greater than 1 month and a significant weight loss of -8% x 2 months. Goal:PO intake 50% or greater Pt meeting goal, continue with same goal Pt current nutrition is Regular, Ensure TID. Nutrition recommendation: continue with current plan of care Last recorded weight is 88.5 kg. Bowel Motility: +BM 10/04 Labs Reviewed: Hgb:8.7, HCT:26.4, Alb:3.1, NA:135, Cr:0.5 Meds Noted: folic acid, B12, Vit C, coumadin Skin: WNL Additional Notes: Pt continues on a regular diet, intake improved to 50-100%, drinking Ensure. Agree with orders. Monitor intake, wt, labs. Follow up in 7 days.
[2025-10-05] MEDS: LOPERAMIDE HCL 2 MG CAPSULE PO (14:08)
--- NOTE | 2025-10-05 15:46 | PM.DS ---
DS: Admitting Diagnosis Discharge Date 10/05/25 Admitting Diagnosis Nausea DS: Discharge Diagnosis Discharge Diagnosis (1) Hypoxia: Code(s): R09.02 - Hypoxemia Status: Acute (2) Pancytopenia: Code(s): D61.818 - Other pancytopenia Status: Acute (3) Fever and neutropenia: Code(s): D70.9 - Neutropenia, unspecified; R50.81 - Fever presenting with conditions classified elsewhere Status: Acute (4) Hypothyroidism, unspecified: Qualifiers: Hypothyroidism type: unspecified Qualified Code(s): E03.9 - Hypothyroidism, unspecified Code(s): E03.9 - Hypothyroidism, unspecified Status: Acute (5) Breast cancer metastasized to bone: Qualifiers: Laterality: unspecified laterality Qualified Code(s): C50.919 - Malignant neoplasm of unspecified site of unspecified female breast; C79.51 - Secondary malignant neoplasm of bone Code(s): C50.919 - Malignant neoplasm of unspecified site of unspecified female breast; C79.51 - Secondary malignant neoplasm of bone Status: Acute (6) Hx of pulmonary embolus: Code(s): Z86.711 - Personal history of pulmonary embolism Status: Acute (7) Diarrhea: Code(s): R19.7 - Diarrhea, unspecified Status: Acute (8) COPD (chronic obstructive pulmonary disease) with acute bronchitis: Code(s): J44.0 - Chronic obstructive pulmonary disease with (acute) lower respiratory infection; J20.9 - Acute bronchitis, unspecified Status: Acute (9) Hypertension: Code(s): I10 - Essential (primary) hypertension Status: Acute (10) Moderate protein-calorie malnutrition: Code(s): E44.0 - Moderate protein-calorie malnutrition Status: Acute DS: Summary Hospital Course Reason for hospitalization: 75yo female with metastatic breast CA, hx of PE on Coumadin and HTN here for nausea, vomiting and weakness. Please see H&P for details. Hospital Course: The following medical problems were addressed during her hospital course: (1) Hypoxia: Patient with cough and hypoxia. CXR was clear on admission. CTA chest showing no acute pulmonary lesions but small right pleural effusion. MRSA nasal swab negative. On Coumadin with therapeutic INR making PE less likely. Patient was on 2.5L O2. She is life long nonsmoker and no hx of asthma but has hx of chest XRT. On inhalers at home and follows with pulmonology but diagnosis is in question (bronchiectasis from unk cause). Received 3L IV fluids in ED. Repeat CXR showing bibasilar scarring and bronchiectasis right midlung post-XRT but no acute findings. BNP 3400. Echo showing EF 45-50%, indeterminate diastolic fxn and minimal valvular disease. Sputum ordered. Symptoms improved with symptomatic care. Able to wean down to room air. (2) Pancytopenia: Patient with metastatic breast CA on Ibrance for 3 weeks with last dose 09/24/25. WBC 1.2K and dropped to 0.8K before normalizing. Platelet count 116K and remained stable on repeat. CT Ch/A/P showing no acute findings. UA showing 11-20 WBC, negative LE/Nit. Pancytopenia related to Ibrance. She was placed in protective isolation. No longer having fevers. Urine Cx negative. Sputum, Stool and blood cultures are pending. Legionella and Strep Ag negative. She was empirically started on vanco and cefepime. ID and Heme/Onc consulted. Hgb 9.6 and dropped to 6.6 and transfusion ordered. Repeat Hgb 8.7. B12/Folate normal. Iron saturation was 36%. [id number]. Pancytopenia related to the Ibrance. (3) Fever and neutropenia: As above (4) Hypothyroidism, unspecified: TSH 11 in Jul. Repeat TSH 47 with low FT4 at 0.52. We increased levothyroxine to 125mcg daily. Repeat TSH in 4-6 weeks. (5) Breast cancer metastasized to bone: Patient with metastatic breast CA recently started on Ibrance. S/P right mastectomy. Mets to bone with CT showing extensive, predominantly osteoblastic metastatic lesions of the skeletal system with fractures of anterior right fifth and sixth ribs, possible pathological fractures. Noted to have RUE edema but doppler negative for DVT and felt related to mastectomy. Discussed with Heme/Onc. (6) Hx of pulmonary embolus: Patient is on Coumadin for hx of PEs about 10 years ago. INR 6.7 so given a small dose of oral VitK given the drop in Hgb. Resume Coumadin today. Discussed with Heme/Onc (7) Diarrhea: Patient with diarrhea prior to admission but has improved. Probably related to Ibrance since known side effect (8) COPD (chronic obstructive pulmonary disease) with acute bronchitis: Patient presumably has bronchiectasis (not COPD). On budesonide and albuterol on admission which was continued. (9) Hypertension: BP was soft and atenolol held but became tachycardic. Could be rebound off of beta-macy. BP better so resumed low dose atenolol and tolerating this. (10) Moderate protein calorie malnutrition: Moderate protein calorie malnutrition related to inadequate energy intake as evidenced by pt report of poor po intake greater than 1 month and a significant weight loss of -8% x 2 months. The patient overall did well and was able to be discharged home on //. Discharge instructions discussed including medication side effects and all questions answered. Status at Discharge Cognitive/behavioral status at discharge: stable Time Spent with Patient Time attestation: Total time spent providing and/or coordinating discharge services:40 minutes Time spent: Greater than 30 minutes Exam Narrative: AF 98.0 122/70 101 20 95% RA Gen - NARD sitting up on the couch Chest - scattered expiratory wheezes, nml RR CV - RRR S1/S2. Tele showing no acute dysrhythmias Abd - Soft, NT/ND, Positive BS Ext - No pedal edema. Mild RUE edema Psych - Nml mood and affect Skin - Warm and dry. DS: Data Data Completed and Pending Labs on day of discharge: Labs from last 24 hours 10/05/25 10/05/25 10/05/25 11:08 07:30 04:11 WBC 6.2 RBC 2.57 L Hgb 8.7 L Hct 26.4 L MCV 102.7 H D MCH 33.9 MCHC 33.0 RDW 25.8 H Plt Count 138 L MPV 11.1 H Immature Gran % (Auto) 23.0 H Neut % (Auto) 59.9 Lymph % (Auto) 5.8 L Elliott % (Auto) 9.7 H Eos % (Auto) 0.5 Baso % (Auto) 1.1 Lymph # (Auto) 0.36 L Elliott # (Auto) 0.6 Eos # (Auto) 0.0 Baso # (Auto) 0.1 Abs Immat Gran (auto) 1.43 H Absolute Neuts (auto) 3.7 Absolute Nucleated RBC 0.190 H Band Neutrophils % Not Reportable Nucleated RBC % 3.1 H Platelet Estimate Slightly decreased % Immature Plt Fraction 5.1 Hypochromasia 1+ Poikilocytosis 1+ Anisocytosis 1+ Ovalocytes 1+ Acanthocytes (Spur) Occasional Schistocytes Occasional PT 19.6 H INR 1.7 Sodium 135 L Potassium 3.6 Chloride 108 H Carbon Dioxide 21 L Anion Gap 6 BUN 11 D Creatinine 0.54 L Estim Creat Clear Calc 93 Estimated GFR > 60 Glucose 90 POC Capillary Glucose 98 93 Calcium 8.7 Phosphorus 3.2 Iron TIBC % Saturation Ferritin Albumin 3.1 L Vitamin B12 Folate Vancomycin Trough Crossmatch 10/04/25 10/04/25 10/04/25 15:15 05:56 03:47 WBC RBC Hgb Hct MCV MCH MCHC RDW Plt Count MPV Immature Gran % (Auto) Neut % (Auto) Lymph % (Auto) Elliott % (Auto) Eos % (Auto) Baso % (Auto) Lymph # (Auto) Elliott # (Auto) Eos # (Auto) Baso # (Auto) Abs Immat Gran (auto) Absolute Neuts (auto) Absolute Nucleated RBC Band Neutrophils % Nucleated RBC % Platelet Estimate % Immature Plt Fraction Hypochromasia Poikilocytosis Anisocytosis Ovalocytes Acanthocytes (Spur) Schistocytes PT INR Sodium Potassium Chloride Carbon Dioxide Anion Gap BUN Creatinine Estim Creat Clear Calc Estimated GFR Glucose POC Capillary Glucose Calcium Phosphorus Iron 71 TIBC 195 L % Saturation 36 Ferritin 758.00 H Albumin Vitamin B12 > 1000.0 H Folate 16.7 Vancomycin Trough 18.3 Crossmatch See Detail Preliminary micro results at discharge 10/01/25 21:31 Sputum Culture - Preliminary Sputum 09/30/25 22:15 Blood Culture - Preliminary Blood 09/30/25 22:20 Blood Culture - Preliminary Blood Discharge Plan Discharge Attending physician on discharge: James Jackson Consulting providers: Stef Morgan; Lj Fam Discharging Clinician: James Jackson Anticipated Discharge Date/Time: 10/05/25 16:01 Patient Disposition: Home Activity: as tolerated Diet: regular Discharge Instructions: Please avoid large gathering, wear face coverings in public and practice social distance. Check blood pressure 1 to 2 times a day. Record and bring into your doctor for review. Call your doctor if your blood pressure is greater than 180/110. Take precautions to avoid falls. Rise slowly from a lying or sitting position. Pause before standing or walking. Contact your doctor or call 911 and come to the Emergency Room if you have fevers, lightheadedness with standing or other worrisome symptoms. Avoid NSAIDs (ibuprofen, naproxen, Aleve). Tylenol is safe to take. Follow-up with your primary care provider in 1-2 weeks. Please call for appointment. Follow-up with Dr Fam next week. Please call for an appointment. Thank you for using [facility] for your health care needs. Patient Instructions: Antibiotic Form, Warfarin (By mouth), Breast Cancer in Women (GEN), Acute Nausea and Vomiting (GEN) Patient Language: Citizen Of [place] Stand Alone Forms: General Discharge Information Follow-up/Referrals: Lj Fam MD [Physician, Hematology] - Call for Appointment Ankit Villafuerte DO [Primary Care Provider, Internal Medicine] - Call for Appointment Discharge Medications: New levothyroxine [Synthroid] 125 mcg Tablet 125 mcg PO DAILY@0630 Qty: 30 0RF Continued ferrous sulfate [Feosol] 325 mg (65 mg iron) tablet 325 mg PO DAILY vitamin [id number] acid 1,000-400 mcg tablet, sublingual 1 tablet sublingual DAILY atenolol 25 mg tablet 12.5 mg PO QHS gabapentin 800 mg tablet 800 mg PO BID loratadine [Claritin] 10 mg tablet 10 mg PO DAILY budesonide 0.5 mg/2 mL suspension for nebulization 0.5 mg inhalation DAILY Qty: 60 5RF Rx Instructions: rinse and spit ipratropium bromide 0.02 % solution 2.5 ml inhalation Q6H PRN (Reason: shortness of breath or wheezing) Qty: 300 5RF ondansetron 4 mg tablet,disintegrating 4 mg PO Q6H PRN (Reason: nausea and vomiting) Qty: 60 0RF ascorbic acid (vitamin C) 1,000 mg capsule 1 g PO DAILY geriatric multivitamin-min Tablet 1 tablet PO DAILY calcium 600 mg capsule 600 mg PO DAILY guaifenesin [Mucinex] 1,200 mg tablet extended release 12hr 1,200 mg PO BID warfarin 2 mg tablet 4 mg PO DAILY Protocol: Dose Management Condition: Saturday Dose/Route: 4.5 mg Instruction: 4.5 x 1 mg tablets Condition: Saturday Dose/Route: 4.5 mg Instruction: 4.5 x 1 mg tablets Condition: Saturday Dose/Route: 4.5 mg Instruction: 4.5 x 1 mg tablets Condition: Saturday Dose/Route: 4.5 mg Instruction: 4.5 x 1 mg tablets Condition: Dose/Route: 4.5 mg Instruction: 4.5 x 1 mg tablets Condition: Saturday Dose/Route: 4.5 mg Instruction: 4.5 x 1 mg tablets Condition: Saturday Dose/Route: 4.5 mg Instruction: 4.5 x 1 mg tablets Protocol Text: Adjustment Start Date: 09/12/23 INR Value: 2.0 INR Date: 09/12/23 Recheck Date: 09/26/23 ProAir RespiClick 90 mcg/actuation aerosol powdr breath activated 2 inh INHALATION Q4-6H PRN (Reason: shortness of breath or wheezing) megestrol 400 mg/10 mL (40 mg/mL) suspension 400 mg PO DAILY Patient Comments: pt not sure if she still is taking this medication primidone 50 mg tablet 50 mg PO HS ropinirole 0.25 mg tablet 0.25 mg PO HS albuterol sulfate 0.63 mg/3 mL solution for nebulization 0.63 mg inhalation BID PRN (Reason: shortness of breath or wheezing) Patient Comments: . dicyclomine 20 mg tablet 20 mg PO TID Discontinued Ibrance 125 mg tablet 125 mg PO DAILY Patient Comments: pt on her 14 days of not taking medication levothyroxine 75 mcg tablet 75 mcg PO QAM Qty: 90 2RF Other Ambulatory Orders: Prothrombin Time INR (Routine) Timeframe: [id number] Location: Determined by Patient Ordered By: James Jackson Thyroid Stimulating Hormone Reflex (Routine) Timeframe: 1 Month Location: Determined by Patient Ordered By: James Jackson Date of admission: 09/30/25 23:43 Primary Care Provider: Ankit Villafuerte Admitting Provider: James Jackson Attending physician on admission: James Jackson Condition: Stable Hospitalist MIPS Heart Failure (Exclusion) Patient has history of Heart Transplant or Left Ventricular Assistive Device?: No IF YES, STOP HERE Heart Failure (Qualifier) Patient has current or prior documentation of LVEF less than or equal to 40%, or mod/servere depressed LVSF?: No IF NO, STOP HERE
--- NOTE | 2025-10-05 16:57 | PC.NURSE ---
Reviewed all discharge instructions with patient and spouse. IV site removed intact. Patient dressed. Denies questions related to discharge instructions at this time. No acute distress noted.
--- NOTE | 2025-10-11 10:04 | PC.NURSE ---
Sputum cx results shown to Dr. Jackson. Faxed results to Dr. Villafuerte and Dr. Fam.
== END 2025-10-05 17:00 | disposition home or self-care (01) | DRG 871 ==
LOC: ANHED 21:02 → ANHIMU 23:45
PROVIDERS: Nurse Practitioner; Physician Assistant; Admitting Provider Internal Medicine; Emergency Provider Student in an Organized Health Care Education/Training Program; PCP Internal Medicine; Visit Provider Internal Medicine
DX: A41.9 Sepsis, unspecified organism (principal); D61.810 Antineoplastic chemotherapy induced pancytopenia; C79.51 Secondary malignant neoplasm of bone; M84.58XA Pathological fracture in neoplastic disease, other specified site, initial encounter for fracture; M80.8AXA Other osteoporosis with current pathological fracture, other site, initial encounter for fracture; K52.1 Toxic gastroenteritis and colitis; E44.0 Moderate protein-calorie malnutrition; J44.0 Chronic obstructive pulmonary disease with (acute) lower respiratory infection; R50.81 Fever presenting with conditions classified elsewhere; T45.1X5A Adverse effect of antineoplastic and immunosuppressive drugs, initial encounter; C50.911 Malignant neoplasm of unspecified site of right female breast; J20.9 Acute bronchitis, unspecified; I10 Essential (primary) hypertension; R09.02 Hypoxemia; K86.81 Exocrine pancreatic insufficiency; M19.90 Unspecified osteoarthritis, unspecified site; G25.81 Restless legs syndrome; E03.9 Hypothyroidism, unspecified; Z20.822 Contact with and (suspected) exposure to COVID-19; Z79.01 Long term (current) use of anticoagulants; Z85.41 Personal history of malignant neoplasm of cervix uteri; Z86.711 Personal history of pulmonary embolism; Z68.26 Body mass index [BMI] 26.0-26.9, adult
CPT/HCPCS: 36415; 36430; 71045; 71046; 71260; 74177; 80048; 80053; 80069; 80202; 81001; 82274; 82565; 82607; 82728; 82746; 82948; 83540; 83550; 83605; 83615; 83690; 83735; 83880; 84100; 84132; 84439; 84443; 84484; 85014; 85018; 85025; 85027; 85055; 85610; 85730; 86850; 86900; 86901; 86923; 87040; 87045; 87046; 87070; 87086; 87186; 87205; 87427; 87449; 87493; 87637; 87641; 87899; 93005; 93971; 94640; 96361; 96365; 96366; 96367; 97110; 97162; 97165; 97530; 99285; A9270; C8929; J0692; J3373; J3475; J7050; J7120; P9016; Q9957; Q9967